=== PATIENT | female | born 1990 | race African-American/Black ===

== ENCOUNTER 2022-06-29 21:19 | Inpatient (IN) | payer OTHER, SELFPAY ==
--- OUTSIDE RECORDS SUMMARY | 2022-06-29 21:22 | XMS_ITS | Continuity of Care Document ---
:1990 Author Organization [facility] Address [address] [place] [address], [address] [place] [id number]- Care Team Providers Name Role Phone Fatoumata Stokes DO Primary Care Physician Encounter [facility] Date(s): 11/11/20 - 12/11/20 [facility] [address], [address] [place] [id number]- Allergies, Adverse Reactions, Alerts Substance Reaction Severity Status Flagyl Active paliperidone Active Invega Active cloZAPine Active Immunizations Given and Recorded Vaccine Date Status Refusal Reason tetanus/diphtheria/pertussis, acel(Tdap) 07/23/19 Given tetanus/diphtheria/pertussis, acel(Tdap) 07/30/18 Given tetanus/diphtheria/pertussis, acel(Tdap) 11/30/15 Given tetanus/diphtheria/pertussis, acel(Tdap) 10/20/14 Given tetanus/diphtheria/pertussis, acel(Tdap) 05/26/11 Given tetanus/diphtheria/pertussis, acel(Tdap) 07/31/10 Given influenza virus vaccine, inactivated 06/29/19 Given influenza virus vaccine, inactivated 07/11/13 Given influenza virus vaccine, inactivated 08/10/11 Given influenza virus vaccine, inactivated 07/31/10 Given pneumococcal 23-valent vaccine 07/11/13 Given Meningococcal Polysaccharide Vaccine 12/26/12 Given FluLaval (oldterm) 06/13/12 Given Human Papillomavirus Vaccine 09/16/10 Given Human Papillomavirus Vaccine 10/03/09 Given Human Papillomavirus Vaccine 07/15/09 Given influ virus vac, H1N1, live(oldterm) 10/03/09 Given Meningococcal Conjugate Vaccine 11/08/06 Given tetanus-diphtheria toxoids (Td) 01/14/04 Given Hepatitis B Vaccine (old term) 01/14/04 Given Hepatitis B Vaccine (old term) 08/27/03 Given Hepatitis B Vaccine (old term) 07/23/03 Given Miscellaneous Vaccine1 09/26/96 Given Measles/Mumps/Rubella Virus Vaccine 02/23/95 Given Measles/Mumps/Rubella Virus Vaccine 08/18/94 Given Measles/Mumps/Rubella Virus Vaccine 05/06/92 Given Diphth/Pertussis,Acel/Tetanus (oldterm) 02/01/95 Given Diphth/Pertussis,Acel/Tetanus (oldterm) 06/15/94 Given Diphth/Pertussis,Acel/Tetanus (oldterm) 03/17/94 Given Diphth/Pertussis,Acel/Tetanus (oldterm) 03/15/91 Given Diphth/Pertussis,Acel/Tetanus (oldterm) 01/06/91 Given Poliovirus Vaccine, Inactivated 06/15/94 Given Poliovirus Vaccine, Inactivated 03/17/94 Given Poliovirus Vaccine, Inactivated 01/06/91 Given 1Admin Note: Clinical Varicella at age 5 Medications acetaminophen 325 mg oral tablet 650 mg, 2, tablet, By Mouth, Every 8 hours, PRN, # 50 tablet, Refills 4, Tot. Refills 4, Maintenance, Pain , Mild, 11/22/19 13:30:00 EST, Route to Pharmacy Electronically, [facility]/pharmacy #[id number], 159, cm, 11/19/19 8:17:00 EST, Height, 89.7, kg, 11/14/19 9... Start Date: 11/22/19 Status: OrderedAquaphor Healing topical ointment See Instructions, APPLY TO NIPPLE DAILY NEEDED FOR DISCOMFORT, # 50 Gm, 0 Refills, Maintenance, [id number], 7, APPLY TO NIPPLE DAILY NEEDED FOR DISCOMFORT, 159, cm, 12/10/19 11:02:00 EDT, Height, 86.7, kg, 12/10/19 11:02:00 EDT, Dry Weight Start Date: 12/10/19 Status: OrderedBenefiber oral powder for reconstitution 5 mL, By Mouth, 2 times a day, PRN as needed for constipation, dissolve in 4 to 8 oz of beverage or soft food- hot or cold, # 155 Gm, 0 Refills, Maintenance, 12/04/20 14:32:00 EST, [facility] Powder[id number] Partial fill upon patient request if t... Start Date: 12/04/20 Status: Orderedbenztropine 1 mg oral tablet 1 mg, 1, tablet, By Mouth, 2 times a day, # 60 tablet, Refills 0, Tot. Refills 0, Maintenance, 01/01/20 16:15:00 EDT, [id number], 163, cm, 01/01/20 14:39:00 EDT, Height, 86.5, kg, 12/19/19 19:14:00 EDT, Dry We... Start Date: 01/01/20 Stop Date: 01/31/20 Status: OrderedDepo-Provera Contraceptive 150 mg/mL intramuscular suspension 1 mL = 150 mg, Intramuscular, Every 3 months, # 1 mL, 3 Refills, Maintenance, 08/26/20 9:54:00 EST, Suspension, [facility], 163, cm, 05/28/20 11:24:00 EDT, Height, 100, kg, 08/04/20 11:40:00 EST, Dry Weight Start Date: 08/26/20 Status: Ordereddocusate sodium 100 mg oral capsule 100 mg, 1, capsule, By Mouth, 2 times a day, # 60 capsule, Refills 11, Tot. Refills 11, Maintenance,01/08/20 11:07:00 EDT, [id number] 163, cm, 01/02/20 7:50:00 EDT, Height, 86.5, kg, 12/19/19 19:14:00 EDT, D... Start Date: 01/08/20 Stop Date: 01/02/21 Status: OrderedEstradiol Patch 0.1 mg/24 hours twice weekly transdermal film, extended release See Instructions, APPLY 1 PATCH TOPICALLY EVERY TUESDAY & TUESDAY, # 8 patch, 2 Refills, 12/03/20 8:15:00 EST, [facility]/pharmacy #[id number], 28, APPLY 1 PATCH TOPICALLY EVERY TUESDAY & TUESDAY, 164, cm, 10/14/20 10:13:00 EST, Height, 112, kg, 10/14/20 10:13:00... Start Date: 12/03/20 Status: Orderedferrous sulfate 325 mg oral enteric coated tablet 325 mg, 1, tablet, By Mouth, Daily, # 90 tablet, Refills 1, Tot. Refills 1, Maintenance, 10/31/20 16:01:00 EST, Route to Pharmacy Electronically, [facility]/pharmacy #[id number], 164, cm, 10/14/20 10:13:00 EST, Height, 112, kg, 10/14/20 10:13:00 EST, Dry Weight Start Date: 10/31/20 Status: OrderedFlonase 50 mcg/inh nasal spray 1 sprays, Nares, Both, 2 times a day, # 16 Gm, 5 Refills, Maintenance, 07/04/20 9:01:00 EDT, [place], [facility]/pharmacy #[id number], 1 sprays Nares, Both 2 times a day, 163, cm, 05/28/20 11:24:00 EDT, Height, 102.3, kg, 06/22/20 23:55:00 EDT, Dry Weight Start Date: 07/04/20 Status: Orderedlithium 300 mg oral tablet 1 tablet = 300 mg, By Mouth, Daily in AM, # 30 tablet, 0 Refills, Maintenance, 01/01/20 16:16:00 EDT, Tablet, [facility]/pharmacy #[id number], 163, cm, 01/01/20 14:39:00 EDT, Height, 86.5, kg, 12/19/19 19:14:00 EDT, Dry Weight Start Date: 01/01/20 Stop Date: 01/29/20 Status: Orderedlithium 600 mg oral capsule 1 capsule = 600 mg, By Mouth, Daily at bedtime, # 30 capsule, 0 Refills, Maintenance, 01/01/20 16:16:00 EDT, Capsule, [facility]/pharmacy #[id number], 163, cm, 01/01/20 14:39:00 EDT, Height, 86.5, kg, 12/19/19 19:14:00 EDT, Dry Weight Start Date: 01/01/20 Stop Date: 03/01/20 Status: OrderedMiraLax oral powder for reconstitution = 17 Gm, By Mouth, Daily, PRN Constipation, dissolve in water before taking, # 255 Gm, 11 Refills, Maintenance, 08/06/19 12:12:31 EST, REC Powder, 17 Gm By Mouth Daily,PRN:Constipation,Instr:dissolve in water before taking Start Date: 08/06/19 Status: OrderedMiraLax oral powder for reconstitution = 17 Gm, By Mouth, Daily, dissolve in water before taking, # 255 Gm, 0 Refills, Maintenance, 07/11/20 15:38:00 EDT, REC Powder, [facility]/pharmacy #[id number], 17 Gm By Mouth Daily,Instr:dissolve in water before taking, 163, cm, 05/28/20 11:24:00 EDT, Height, 102... Start Date: 07/11/20 Status: Orderedomeprazole 20 mg oral enteric coated capsule 1 capsule = 20 mg, By Mouth, Daily, # 30 capsule, 2 Refills, Maintenance, 12/08/20 10:55:00 EDT, EC Capsule, [facility]/pharmacy #[id number], 164, cm, 10/14/20 10:13:00 EST, Height, 112, kg, 10/14/20 10:13:00 EST, Dry Weight Start Date: 12/08/20 Status: Orderedperphenazine 16 mg oral tablet 16 mg, 1, tablet, By Mouth, 2 times a day, # 60 tablet, Refills 0, Tot. Refills 0, Maintenance, 01/01/20 16:18:00 EDT, Route to Pharmacy Electronically, [facility]/pharmacy #[id number], 163, cm, 01/01/20 14:39:00 EDT, Height, 86.5, kg, 12/19/19 19:14:00 EDT, Dry W... Start Date: 01/01/20 Status: Orderedperphenazine 8 mg oral tablet 8 mg, 1, tablet, By Mouth, 2 times a day, PRN, Indicated for severe agitation/psychosis and to be taken 8 hours apart, # 60 tablet, Refills 0, Tot. Refills 0, Maintenance, Psychosis, 01/02/20 4:30:00 EDT, Route to Pharmacy Electronically, [facility]/pharmacy... Start Date: 01/02/20 Status: Orderedsenna - oral tablet 1 tablet, By Mouth, Daily at bedtime, PRN for constipation, # 60 tablet, 1 Refills, Maintenance, 12/04/20 14:28:00 EST, Tablet, [facility]/pharmacy #[id number], Partial fill upon patient request if the prescriptionis for a schedule II opioid drug., 164, cm, 10/14... Start Date: 12/04/20 Status: Orderedsimethicone 125 mg oral capsule See Instructions, TAKE 1 CAPSULE BY MOUTH THREE TIMES A DAY AFTER MEALS AND AT BEDTIME NEEDED, # 48 capsule, 11 Refills, Maintenance, 10/21/20 9:08:00 EST, [facility]/pharmacy #[id number], 164, cm, 10/14/20 10:13:00 EST, Height, 112, kg, 10/14/20 10:13:00 EST,... Start Date: 10/21/20 Status: OrderedTums 500 mg oral tablet, chewable 1,000 mg, 2, tablet, Chew, Every 6 hours, PRN, # 120 tablet, Refills 11, Tot. Refills 11, Maintenance, for indigestion, 08/06/19 12:12:32 EST, Route to Pharmacy Electronically, [facility]/pharmacy #[id number] Start Date: 08/06/19 Stop Date: 07/01/20 Status: OrderedZyrTEC 10 mg oral tablet 1 tablet = 10 mg, By Mouth, Daily, # 30 tablet, 5 Refills, Maintenance, 07/22/20 15:24:00 EDT, Tablet, [facility]/pharmacy #[id number], 163, cm, 05/28/20 11:24:00 EDT, Height, 102.3, kg, 06/22/20 23:55:00 EDT, Dry Weight Start Date: 07/22/20 Status: Ordered Problem List Condition Effective Dates Status Health Status Informant Last pap smear 08/31/19 Active negative(Confirmed) Chronic constipation(Confirmed) Active Chronic post-traumatic stress Active disorder(Confirmed) Depression(Confirmed) Active alcohol syndrome(Confirmed) Active Foster Care (Status)(Confirmed) Active Chronic GERD(Confirmed) Active Hyperprolactinemia(Confirmed) Active Iron deficiency anemia(Confirmed) Active Obesity(Confirmed) Active Oligomenorrhea(Confirmed) Active Personality disorder(Confirmed) Active Poor historian(Confirmed) Active Psychosis(Confirmed) 2009 Active Schizoaffective Active schizophrenia(Confirmed) History of suicidal ideation w/ Active suicide attempt(Confirmed) Weight gain with seroquel in the Active past(Confirmed)1 1Really accelerated when seroquel dose increased Social History Social History Type Response Tobacco Use: 4 or less cigarettes(le ss than 1/4 pack)/day in last 30 days. Sex Female
--- OUTSIDE RECORDS SUMMARY | 2022-06-29 21:22 | XMS_ITS | Continuity of Care Document ---
:1990 Author Organization [facility] Address [address] [place] [address], [address] [place] [id number]- Care Team Providers Name Role Phone Fatoumata Stokes DO Primary Care Physician Encounter [facility] Date(s): 04/07/21 - 05/07/21 [facility] [address], [address] [place] [id number] Attending Physician: Jada Torres Admitting Physician: Jada Torres Referring Physician: AdmtrJada Allergies, Adverse Reactions, Alerts Substance Reaction Severity [...] 11/22/19 13:30:00 EST, Route to Pharmacy Electronically, [facility]/pharmacy #[id number], 159, cm, 11/19/19 8:17:00 EST, Height, 89.7, kg, 11/14/19 9... Start Date: 11/22/19 Status: OrderedBenefiber oral powder for reconstitution 5 mL, By Mouth, 2 times a day, PRN as needed for constipation, dissolve in 4 to 8 oz of beverage or soft food- hot or cold, # 155 Gm, 11 Refills, Maintenance, 03/05/21 15:58:00 EDT, REC Powder, [facility]/pharmacy #[id number], Partial fill upon patient request if... Start Date: 03/05/21 Status: Orderedbenztropine 1 mg oral tablet 1 mg, 1, tablet, By Mouth, 2 times a day, # 60 tablet, Refills 0, Tot. Refills 0, Maintenance, 01/01/20 16:15:00 EDT, Route to Pharmacy Electronically, [facility]/pharmacy #[id number], 163, cm, 01/01/20 14:39:00 EDT, Height, 86.5, kg, 12/19/19 19:14:00 EDT, Dry We... Start Date: 01/01/20 Stop Date: 01/31/20 Status: Orderedcetirizine 10 mg oral tablet 1 tablet, By Mouth, Daily, # 30 tablet, 5 Refills, Maintenance, 02/16/21 14:03:00 EDT, [id number], 164, cm, 10/14/20 10:13:00 EST, Height, 112, kg, 10/14/20 10:13:00 EST, Dry Weight Start Date: 02/16/21 Status: Ordereddocusate sodium 100 mg oral capsule 1 capsule, By Mouth, 2 times a day, # 60 capsule, 5 Refills, Maintenance, 01/12/21 20:05:00 EDT, [id number] 164, cm, 10/14/20 10:13:00 EST, Height, 112, kg, 10/14/20 10:13:00 EST, Dry Weight Start Date: 01/12/21 Status: OrderedEstradiol Patch 0.1 mg/24 hours twice weekly transdermal film, extended release See Instructions, APPLY 1 PATCH TOPICALLY EVERY TUESDAY & TUESDAY, # 8 patch, 12 Refills, 03/13/21 13:04:00 EDT, [facility]/pharmacy #[id number], 28, APPLY 1 PATCH TOPICALLY EVERY TUESDAY & TUESDAY, 164, cm, 03/13/21 9:51:00 EDT, Height, 112, kg, 10/14/20 10:13:00... Start Date: 03/13/21 Status: Orderedferrous sulfate 325 mg oral enteric coated tablet 325 mg, 1, tablet, By Mouth, Daily, # 90 tablet, Refills 1, Tot. Refills 1, Maintenance, 10/31/20 16:01:00 EST, Route to Pharmacy Electronically, [facility]/pharmacy #[id number], 164, cm, 10/14/20 10:13:00 EST, Height, 112, kg, 10/14/20 10:13:00 EST, Dry Weight Start Date: 10/31/20 Status: Orderedfluticasone 50 mcg/inh nasal spray See Instructions, USE 1 SPRAY IN EACH NOSTRIL TWICE A DAY, # 16 mL, 5 Refills, Maintenance, [id number], 30, USE 1 SPRAY IN EACH NOSTRIL TWICE A DAY, 164, cm, 10/14/20 10:13:00 EST, Height, 112, kg, 10/14/20 10:13:00 EST, Dry Weight Start Date: 03/06/21 Status: Orderedlithium 300 mg oral tablet 1 tablet = 300 mg, By Mouth, Daily in AM, # 30 tablet, 0 Refills, Maintenance, 01/01/20 16:16:00 EDT, Tablet, [facility]/pharmacy #[id number], 163, cm, 01/01/20 14:39:00 EDT, Height, 86.5, kg, 12/19/19 19:14:00 EDT, Dry Weight Start Date: 01/01/20 Stop Date: 01/29/20 Status: Orderedlithium 600 mg oral capsule 1 capsule = 600 mg, By Mouth, Daily at bedtime, # 30 capsule, 0 Refills, Maintenance, 01/01/20 16:16:00 EDT, Capsule, [facility]/pharmacy #[id number], 163, cm, 01/01/20 14:39:00 EDT, Height, 86.5, kg, 12/19/19 19:14:00 EDT, Dry Weight Start Date: 01/01/20 Stop Date: 03/01/20 Status: OrderedmedroxyPROGESTERone 150 mg/mL intramuscular suspension 1 mL, Intramuscular, Every 3 months, # 1 mL, 3 Refills, Soft Stop, 03/13/21 13:05:00 EDT, [facility]/pharmacy #[id number], 164, cm, 03/13/21 9:51:00 EDT, Height, 112, kg, 10/14/20 10:13:00 EST, Dry Weight Start Date: 03/13/21 Status: OrderedMiraLax oral powder for reconstitution = 17 Gm, By Mouth, Daily, dissolve in water before taking, # 255 Gm, 0 Refills, Maintenance, 07/11/20 15:38:00 EDT, REC Powder, [facility]/pharmacy #[id number], 17 Gm By Mouth Daily,Instr:dissolve in water before taking, 163, cm, 05/28/20 11:24:00 EDT, Height, 102... Start Date: 07/11/20 Status: Orderedomeprazole 20 mg oral enteric coated capsule 1 capsule, By Mouth, Daily, # 90 capsule, 0 Refills, Maintenance, 04/17/21 13:04:00 EDT, [facility] [id number], 164, cm, 04/07/21 15:35:00 EDT, Height, 112, kg, 10/14/20 10:13:00 EST, Dry Weight Start Date: 04/17/21 Status: Orderedperphenazine 16 mg oral tablet 16 mg, 1, tablet, By Mouth, 2 times a day, # 60 tablet, Refills 0, Tot. Refills 0, Maintenance, 01/01/20 16:18:00 EDT, Route to Pharmacy Electronically, [facility]/pharmacy #[id number], 163, cm, 01/01/20 14:39:00 EDT, Height, 86.5, kg, 12/19/19 19:14:00 EDT, Dry W... Start Date: 01/01/20 Status: Orderedperphenazine 8 mg oral tablet 8 mg, 1, tablet, By Mouth, 2 times a day, PRN, Indicated for severe agitation/psychosis and to be taken 8 hours apart, # 60 tablet, Refills 0, Tot. Refills 0, Maintenance, Psychosis, 01/02/20 4:30:00 EDT, Route to Pharmacy Electronically, [facility]/pharmacy... Start Date: 01/02/20 Status: OrderedSenna 8.6 mg oral tablet 1, tablet, By Mouth, Daily at bedtime, PRN, # 60 tablet, Refills 1, Tot. Refills 0, Acute, NEEDEDFOR CONSTIPATION, 02/19/21 17:23:00 EDT, Route to Pharmacy Electronically, [id number], 164, cm,10/14/20 10:13:00 EST, Height, 112, kg, 10/14/20... Start Date: 02/19/21 Status: Orderedsimethicone 125 mg oral capsule See Instructions, TAKE 1 CAPSULE BY MOUTH THREE TIMES A DAY AFTER MEALS AND AT BEDTIME NEEDED, # 48 capsule, 11 Refills, Maintenance, 10/21/20 9:08:00 EST, [id number], 164, cm, 10/14/20 10:13:00 EST, Height, 112, kg, 10/14/20 10:13:00 EST,... Start Date: 10/21/20 Status: Orderedsimethicone 125 mg oral capsule 1 capsule = 125 mg, By Mouth, Daily at bedtime, PRN as needed, Maintenance, 03/04/21 16:23:00 EDT, Capsule, Partial fill upon patient request if the prescription is for a schedule II opioid drug. Start Date: 03/04/21 Status: Ordered Problem List Condition Effective Dates [...]
--- OUTSIDE RECORDS SUMMARY | 2022-06-29 21:22 | XMS_ITS | Continuity of Care Document ---
:1990 Author Organization [facility] Address [address] [place] [address]- Care Team Providers Name Role Phone Fatoumata Stokes DO Primary Care Physician [facility]counter [facility] Date(s): 01/05/21 - 02/04/21 [facility] [address] [place], [place] [id number] Allergies, Adverse Reactions, Alerts Substance Reaction Severity [...] 11/22/19 13:30:00 EST, Route to Pharmacy Electronically, [facility]/pharmacy #[id number], 159, cm, 11/19/19 8:17:00 EST, Height, 89.7, kg, 11/14/19 9... Start Date: 11/22/19 Status: OrderedAquaphor Healing topical ointment See Instructions, APPLY TO NIPPLE DAILY NEEDED FOR DISCOMFORT, # 50 Gm, 0 Refills, Maintenance, [id number], 7, APPLY TO NIPPLE DAILY NEEDED FOR DISCOMFORT, 159, cm, 12/10/19 11:02:00 EDT, Height, 86.7, kg, 12/10/19 11:02:00 EDT, Dry Weight Start Date: 12/10/19 Status: OrderedBenefiber oral powder for reconstitution 5 mL, By Mouth, 2 times a day, PRN as needed for constipation, dissolve in 4 to 8 oz of beverage or soft food- hot or cold, # 155 Gm, 0 Refills, Maintenance, 01/05/21 11:50:00 EDT, REC Powder, [facility]/pharmacy #[id number], Partial fill upon patient request if t... Start Date: 01/05/21 Status: Orderedbenztropine 1 mg oral tablet 1 mg, 1, tablet, By Mouth, 2 times a day, # 60 tablet, Refills 0, Tot. Refills 0, Maintenance, 01/01/20 16:15:00 EDT, Route to Pharmacy Electronically, [facility]/pharmacy #[id number], 163, cm, 01/01/20 14:39:00 EDT, Height, 86.5, kg, 12/19/19 19:14:00 EDT, Dry We... Start Date: 01/01/20 Stop Date: 01/31/20 Status: OrderedDepo-Provera Contraceptive 150 mg/mL intramuscular suspension 1 mL = 150 mg, Intramuscular, Every 3 months, # 1 mL, 3 Refills, Maintenance, 08/26/20 9:54:00 EST, Suspension, [facility], 163, cm, 05/28/20 11:24:00 EDT, Height, 100, kg, 08/04/20 11:40:00 EST, Dry Weight Start Date: 08/26/20 Status: Ordereddocusate sodium 100 mg oral capsule 1 capsule, By Mouth, 2 times a day, # 60 capsule, 5 Refills, Maintenance, 01/12/21 20:05:00 [facility]T, [id number], [facility], cm, 10/14/20 10:13:00 EST, Height, 112, kg, 10/14/20 10:13:00 EST, Dry Weight Start Date: 01/12/21 Status: OrderedEstradiol Patch 0.1 mg/24 hours twice weekly transdermal film, extended release See Instructions, APPLY 1 PATCH TOPICALLY EVERY TUESDAY & TUESDAY, # 8 patch, 2 Refills, 12/03/20 8:15:00 EST, [facility]/pharmacy #[id number], 28, APPLY 1 PATCH TOPICALLY EVERY TUESDAY & TUESDAY, 164, cm, 10/14/20 10:13:00 EST, Height, 112, kg, 10/14/20 10:13:00... Start Date: 12/03/20 Status: Orderedferrous sulfate 325 mg oral enteric coated tablet 325 mg, 1, tablet, By Mouth, Daily, # 90 tablet, Refills 1, Tot. Refills 1, Maintenance, 10/31/20 16:01:00 EST, Route to Pharmacy Electronically, [facility]/pharmacy #[id number], 164, cm, 10/14/20 10:13:00 EST, Height, 112, kg, 10/14/20 10:13:00 EST, Dry Weight Start Date: 10/31/20 Status: OrderedFlonase 50 mcg/inh nasal spray 1 sprays, Nares, Both, 2 times a day, # 16 Gm, 5 Refills, Maintenance, 07/04/20 9:01:00 EDT, [place], [facility]/pharmacy #[id number], 1 sprays Nares, Both 2 times a day, 163, cm, 05/28/20 11:24:00 EDT, Height, 102.3, kg, 06/22/20 23:55:00 EDT, Dry Weight Start Date: 07/04/20 Status: Orderedlithium 300 mg oral tablet 1 tablet = 300 mg, By Mouth, Daily in AM, # 30 tablet, 0 Refills, Maintenance, 01/01/20 16:16:00 EDT, Tablet, [facility]/pharmacy #[id number], 163, cm, 01/01/20 14:39:00 EDT, Height, 86.5, kg, 12/19/19 19:14:00 EDT, Dry Weight Start Date: 01/01/20 Stop Date: 01/29/20 Status: Orderedlithium 600 mg oral capsule 1 capsule = 600 mg, By Mouth, Daily at bedtime, # 30 capsule, 0 Refills, Maintenance, 01/01/20 16:16:00 EDT, Capsule, [facility]/pharmacy #[id number], 163, cm, 01/01/20 [...] Refills, Maintenance, 07/11/20 15:38:00 EDT, REC Powder, [facility]/pharmacy #[id number], 17 Gm By Mouth Daily,Instr:dissolve in water before taking, 163, cm, 05/28/20 11:24:00 EDT, Height, 102... Start Date: 07/11/20 Status: Orderedomeprazole 20 mg oral enteric coated capsule 1 capsule = 20 mg, By Mouth, Daily, # 30 capsule, 2 Refills, Maintenance, 12/08/20 10:55:00 EDT, EC Capsule, [facility]/pharmacy #[id number], 164, cm, 10/14/20 10:13:00 EST, Height, 112, kg, 10/14/20 10:13:00 EST, Dry Weight Start Date: 12/08/20 Status: Orderedperphenazine 16 mg oral tablet 16 mg, 1, tablet, By Mouth, 2 times a day, # 60 tablet, Refills 0, Tot. Refills 0, Maintenance, 01/01/20 16:18:00 EDT, Route to Pharmacy Electronically, [facility]/pharmacy #[id number], 163, cm, 01/01/20 [...] 01/02/20 4:30:00 EDT, Route to Pharmacy Electronically, [facility]/pharmacy... Start Date: 01/02/20 Status: Orderedsenna - oral tablet 1 tablet, By Mouth, Daily at bedtime, PRN for constipation, # 60 tablet, 1 Refills, Maintenance, 12/04/20 14:28:00 EST, Tablet, [facility]/pharmacy #[id number], Partial fill upon patient request if the prescriptionis for a schedule II opioid drug., 164, cm, 01/19... Start Date: 12/04/20 Status: Orderedsimethicone 125 mg oral capsule See Instructions, TAKE 1 CAPSULE BY MOUTH THREE TIMES A DAY AFTER MEALS AND AT BEDTIME NEEDED, # 48 capsule, 11 Refills, Maintenance, 10/21/20 9:08:00 EST, [facility]/pharmacy #[id number], 164, cm, 10/14/20 10:13:00 EST, Height, 112, kg, 10/14/20 10:13:00 EST,... Start Date: 10/21/20 Status: OrderedTums 500 mg oral tablet, chewable 1,000 mg, 2, tablet, Chew, Every 6 hours, PRN, # 120 tablet, Refills 11, Tot. Refills 11, Maintenance, for indigestion, 08/06/19 12:12:32 EST, Route to Pharmacy Electronically, [facility]/pharmacy #[id number] Start Date: 08/06/19 Stop Date: 07/01/20 Status: OrderedZyrTEC 10 mg oral tablet 1 tablet = 10 mg, By Mouth, Daily, # 30 tablet, 5 Refills, Maintenance, 07/22/20 15:24:00 EDT, Tablet, [facility]/pharmacy #[id number], 163, cm, 05/28/20 11:24:00 EDT, Height, [...]
--- OUTSIDE RECORDS SUMMARY | 2022-06-29 21:22 | XMS_ITS | Continuity of Care Document ---
:1990 Author Organization [facility] Address [address] [place] [id number]- Care Team Providers Name Role Phone Fatoumata Stokes DO Primary Care Physician [facility]counter [facility] Date(s): 11/30/20 - 11/30/[address] [address]- Encounter Diagnosis Abdominal pain (Final) - 11/30/20 Discharge Disposition: A-D/C Home Attending Physician: Venessa Sosa MD Admitting Physician: Venessa Sosa MD Referring Physician: Not on Staff, Referring MD Allergies, Adverse Reactions, Alerts Substance Reaction Severity [...] 11/22/19 13:30:00 EST, Route to Pharmacy Electronically, [facility]/pharmacy #[id number], 159, cm, 11/19/19 8:17:00 EST, Height, 89.7, kg, 11/14/19 9... Start Date: 11/22/19 Status: OrderedAquaphor Healing topical ointment See Instructions, APPLY TO NIPPLE DAILY NEEDED FOR DISCOMFORT, # 50 Gm, 0 Refills, Maintenance, [facility] STORE [id number], 7, APPLY TO NIPPLE DAILY NEEDED FOR DISCOMFORT, 159, cm, 12/10/19 11:02:00 EDT, Height, 86.7, kg, 12/10/19 11:02:00 EDT, Dry Weight Start Date: 12/10/19 Status: Orderedbenztropine 1 mg oral tablet 1 mg, 1, tablet, By Mouth, 2 times a day, # 60 tablet, Refills 0, Tot. Refills 0, Maintenance, 01/01/20 16:15:00 EDT, Route to Pharmacy Electronically, [facility]/pharmacy #[id number], 163, cm, 01/01/20 14:39:00 EDT, Height, 86.5, kg, 12/19/19 19:14:00 EDT, Dry We... Start Date: 01/01/20 Stop Date: 01/31/20 Status: OrderedDepo-Provera Contraceptive 150 mg/mL intramuscular suspension 1 mL = 150 mg, Intramuscular, Every 3 months, # 1 mL, 3 Refills, Maintenance, 08/26/20 9:54:00 EST, Suspension, [facility], 163, cm, 05/28/20 11:24:00 EDT, Height, 100, kg, 08/04/20 11:40:00 EST, Dry Weight Start Date: 08/26/20 Status: Ordereddocusate sodium 100 mg oral capsule 100 mg, 1, capsule, By Mouth, 2 times a day, # 60 capsule, Refills 11, Tot. Refills 11, Maintenance,01/08/20 11:07:00 EDT, [id number], cm, 01/02/20 7:50:00 EDT, Height, 86.5, kg, 12/19/19 19:14:00 EDT, D... Start Date: 01/08/20 Stop Date: 01/02/21 Status: Orderedestradiol 0.1 mg/24 hours twice weekly transdermal film, extended release 1 patch, Topically, Every Tuesday and , # 8 patch, 6 Refills, Maintenance, 05/28/20 11:01:00 EDT, [facility]/pharmacy #[id number], 163, cm, 04/03/20 14:59:00 EDT, Height, 88.9, kg, 04/03/20 14:59:00 EDT, DryWeight Start Date: 05/28/20 Status: OrderedEucerin Plus topical lotion 1 application, Topically, 2 times a day, PRN for dry skin, May apply to affected area every 6 hours as needed, up to 2 times/day, # 180 mL, 11 Refills, Maintenance, 08/06/19 12:15:04 EST, Lotion, [facility]/pharmacy #[id number] Start Date: 08/06/19 Status: Orderedferrous sulfate 325 mg oral enteric coated tablet 325 mg, 1, tablet, By Mouth, Daily, # 90 tablet, Refills 1, Tot. Refills 1, Maintenance, 10/31/20 16:01:00 EST, Route to Pharmacy Electronically, [facility]/pharmacy #[id number], 164, cm, 10/14/20 10:13:00 EST, Height, 112, kg, 10/14/20 10:13:00 EST, Dry Weight Start Date: 10/31/20 Status: OrderedFlonase 50 mcg/inh nasal spray 1 sprays, Nares, Both, 2 times a day, # 16 Gm, 5 Refills, Maintenance, 07/04/20 9:01:00 EDT, [place], [facility]/pharmacy #[id number], 1 sprays Nares, Both 2 times a day, 163, cm, 05/28/20 11:24:00 EDT, Height, 102.3, kg, 06/22/20 23:55:00 EDT, Dry Weight Start Date: 07/04/20 Status: Orderedlithium 300 mg oral tablet 1 tablet = 300 mg, By Mouth, Daily in AM, # 30 tablet, 0 Refills, Maintenance, 01/01/20 16:16:00 EDT, Tablet, [facility]/pharmacy #[id number], 163, cm, 01/01/20 14:39:00 EDT, Height, 86.5, kg, 12/19/19 19:14:00 EDT, Dry Weight Start Date: 01/01/20 Stop Date: 01/29/20 Status: Orderedlithium 600 mg oral capsule 1 capsule = 600 mg, By Mouth, Daily at bedtime, # 30 capsule, 0 Refills, Maintenance, 01/01/20 16:16:00 EDT, Capsule, [facility]/pharmacy #[id number], 163, cm, 01/01/20 14:39:00 EDT, [...] Refills, Maintenance, 07/11/20 15:38:00 EDT, REC Powder, [facility]/pharmacy #[id number], 17 Gm By Mouth Daily,Instr:dissolve in water before taking, 163, cm, 05/28/20 11:24:00 EDT, Height, 102... Start Date: 07/11/20 Status: Orderedomeprazole 20 mg oral enteric coated capsule 1 capsule = 20 mg, By Mouth, Daily, # 30 capsule, 5 Refills, Maintenance, 07/07/20 11:44:00 EDT, EC Capsule, [facility]/pharmacy #[id number], 163, cm, 05/28/20 11:24:00 EDT, Height, 102.3, kg, 06/22/20 23:55:00 EDT, Dry Weight Start Date: 07/07/20 Status: Orderedperphenazine 16 mg oral tablet 16 mg, 1, tablet, By Mouth, 2 times a day, # 60 tablet, Refills 0, Tot. Refills 0, Maintenance, 01/01/20 16:18:00 EDT, Route to Pharmacy Electronically, [facility]/pharmacy #[id number], 163, cm, 01/01/20 14:39:00 EDT, Height, 86.5, kg, 12/19/19 19:14:00 EDT, Dry W... Start Date: 01/01/20 Status: Orderedperphenazine 8 mg oral tablet 8 mg, 1, tablet, By Mouth, 2 times a day, PRN, Indicated for severe agitation/psychosis and to be taken 8 hours apart, # 60 tablet, Refills 0, Tot. Refills 0, Maintenance, Psychosis, 01/02/20 4:30:00 EDT, Route to Pharmacy Electronically, [facility]/pharmacy... Start Date: 01/02/20 Status: Orderedsimethicone 125 mg oral capsule See Instructions, TAKE 1 CAPSULE BY MOUTH THREE TIMES A DAY AFTER MEALS AND AT BEDTIME NEEDED, # 48 capsule, 11 Refills, Maintenance, 10/21/20 9:08:00 EST, [facility]/pharmacy #[id number], 164, cm, 10/14/20 10:13:00 EST, Height, 112, kg, 10/14/20 10:13:00 EST,... Start Date: 10/21/20 Status: OrderedTums 500 mg oral tablet, chewable 1,000 mg, 2, tablet, Chew, Every 6 hours, PRN, # 120 tablet, Refills 11, Tot. Refills 11, Maintenance, for indigestion, 08/06/19 12:12:32 EST, Route to Pharmacy Electronically, [facility]/pharmacy #[id number] Start Date: 08/06/19 Stop Date: 07/01/20 Status: OrderedZyrTEC 10 mg oral tablet 1 tablet = 10 mg, By Mouth, Daily, # 30 tablet, 5 Refills, Maintenance, 07/22/20 15:24:00 EDT, Tablet, [facility]/pharmacy #[id number], 163, cm, 05/28/20 11:24:00 EDT, [...] past(Confirmed)1 1Really accelerated when seroquel dose increased Vital Signs Most recent to oldest [Reference 1 2 3 Range]: Oxygen Saturation [94-100 %] 99 % 100 % 100 % (11/30/20 1:52 PM) (11/30/20 11:21 AM) (11/30/20 9:47 AM) Pulse Rate [55-90 bpm] 91 bpm 68 bpm 83 bpm *H* (11/30/20 11:21 AM) (11/30/20 9:47 A M) (11/30/20 1:52 PM) Blood Pressure [90-138/55-84 mm 121/71 mm Hg 125/71 mm Hg 123/71 mm Hg Hg] (11/30/20 1:52 PM) (11/30/20 11:21 AM) (11/30/20 9:47 AM) Respiratory Rate [16-30 br/min] 17 br/min 17 br/min 16 br/min (11/30/20 1:52 PM) (11/30/20 11:21 AM) (11/30/20 9:47 AM) Temperature [96.8-100.4 DegF] 98.8 DegF 98.4 DegF 98 .4 DegF (11/30/20 1:52 PM) (11/30/20 11:21 AM) (11/30/20 9:47 AM) Mode of Delivery (Oxygen) Room air Room air Room a ir (11/30/20 1:52 PM) (11/30/20 11:21 AM) (11/30/20 9:47 AM) Blood pressure sites Arm, left Arm, left Arm, left (11/30/20 1:52 PM) (11/30/20 11:21 AM) (11/30/20 9:47 AM) Temperature Route Oral Oral Oral (11/30/20 1:52 PM) (11/30/20 11:21 AM) (11/30/20 9:47 AM) Social History Social History Type Response Tobacco Use: 4 or less cigarettes(le ss than 1/4 pack)/day in last 30 days. Sex Female
--- OUTSIDE RECORDS SUMMARY | 2022-06-29 21:22 | XMS_ITS | Continuity of Care Document ---
:1990 Author Organization [facility] Address [address] [place] [address]- Care Team Providers Name Role Phone Fatoumata Stokes DO Primary Care Physician [facility] Date[facility]s): 05/28/21 - 06/27/21 [facility] [address] [place], [place] [address] Attending Physician: Jada Torres Admitting Physician: AdmtrJada Referring Physician: AdmtrJada Allergies, Adverse Reactions, Alerts Substance Reaction Severity Status Flagyl Active paliperidone Active cloZAPine Active Invega Active Immunizations Given and Recorded Vaccine Date Status Refusal Reason SARS-CoV-2 (COVID-19) mRNA-1273 vaccine 12/10/20 Recorded SARS-CoV-2 (COVID-19) mRNA-1273 vaccine 11/12/20 Recorded tetanus/diphtheria/pertussis, acel(Tdap) 07/23/19 Given tetanus/diphtheria/pertussis, acel(Tdap) 07/30/18 Given tetanus/diphtheria/pertussis, acel(Tdap) 11/30/15 Given tetanus/diphtheria/pertussis, acel(Tdap) 10/20/14 Given tetanus/diphtheria/pertussis, acel(Tdap) 05/26/11 Given tetanus/diphtheria/pertussis, acel(Tdap) 07/31/10 Given influenza virus vaccine, inactivated 06/29/19 Given influenza virus vaccine, inactivated 07/11/13 Given influenza virus vaccine, inactivated 08/10/11 Given influenza virus vaccine, inactivated 07/31/10 Given pneumococcal 23-valent vaccine 07/11/13 Given Meningococcal Polysaccharide Vaccine 12/26/12 Given Meningococcal Conjugate Vaccine 12/26/12 Recorded Meningococcal Conjugate Vaccine 2/13/07 Given FluLaval (oldterm) 06/13/12 Given Human Papillomavirus Vaccine 09/16/10 Given Human Papillomavirus Vaccine 10/03/09 Given Human Papillomavirus Vaccine 07/15/09 Given influ virus vac, H1N1, live(oldterm) 10/03/09 Given tetanus-diphtheria toxoids (Td) 01/14/04 Given Hepatitis [...] Tot. Refills 4, Maintenance, Pain , Mild, 05/28/21 7:42:00 EDT, Route to Pharmacy Electronically, [facility]/pharmacy #[id number], 164, cm, 04/07/21 15:35:00 EDT, Height, 112, kg, 10/14/20 10... Start Date: 05/28/21 Status: OrderedBenefiber oral powder for reconstitution 5 mL, By Mouth, 2 times a day, PRN as needed for constipation, dissolve in 4 to 8 oz of beverage or soft food- hot or cold, # 155 Gm, 11 Refills, Maintenance, 03/05/21 15:58:00 EDT, REC Powder, [facility]/pharmacy #[id number], Partial fill upon patient request if... Start Date: 03/05/21 Status: Orderedbenztropine 1 mg oral tablet 1 mg, 1, tablet, By Mouth, 2 times a day, # 60 tablet, Refills 0, Tot. Refills 0, Maintenance, 01/01/20 16:15:00 EDT, Route to Pharmacy Electronically, [facility]/pharmacy #[id number], 163, cm, 01/01/20 14:39:00 EDT, Height, 86.5, kg, 12/19/19 19:14:00 EDT, Dry We... Start Date: 01/01/20 Stop Date: 01/31/20 Status: Orderedcetirizine 10 mg oral tablet 1 tablet, By Mouth, Daily, # 30 tablet, 5 Refills, Maintenance, 02/16/21 14:03:00 EDT, [facility] STORE [id number], 164, cm, 10/14/20 10:13:00 EST, Height, 112, kg, 10/14/20 10:13:00 EST, Dry Weight Start Date: 02/16/21 Status: Ordereddocusate sodium 100 mg oral capsule 1 capsule, By Mouth, 2 times a day, # 60 capsule, 5 Refills, Maintenance, 01/12/21 20:05:00 EDT, [id number], 164, cm, 10/14/20 10:13:00 EST, Height, 112, kg, 10/14/20 10:13:00 EST, Dry Weight Start Date: 01/12/21 Status: OrderedEstradiol Patch 0.1 mg/24 hours twice weekly transdermal film, extended release See Instructions, APPLY 1 PATCH TOPICALLY EVERY TUESDAY & TUESDAY, # 8 patch, 12 Refills, 03/13/21 13:04:00 EDT, [facility]/pharmacy #[id number], 28, APPLY 1 PATCH TOPICALLY EVERY TUESDAY & TUESDAY, 164, cm, 03/13/21 9:51:00 EDT, Height, 112, kg, 10/14/20 10:13:00... Start Date: 03/13/21 Status: Orderedferrous sulfate 325 mg oral enteric coated tablet 325 mg, 1, tablet, By Mouth, Daily, # 90 tablet, Refills 1, Tot. Refills 1, Maintenance, 10/31/20 16:01:00 EST, Route to Pharmacy Electronically, [facility]/pharmacy #[id number], 164, cm, 10/14/20 10:13:00 EST, Height, 112, kg, 10/14/20 10:13:00 EST, Dry Weight Start Date: 10/31/20 Status: Orderedfluticasone 50 mcg/inh nasal spray See Instructions, USE 1 SPRAY IN EACH NOSTRIL TWICE A DAY, # 16 mL, 5 Refills, Maintenance, [facility] STORE [id number], 30, USE 1 SPRAY IN EACH NOSTRIL TWICE A DAY, 164, cm, 10/14/20 10:13:00 EST, Height, 112, kg, 10/14/20 10:13:00 EST, Dry Weight Start Date: 03/06/21 Status: Orderedlithium 300 mg oral tablet 1 tablet = 300 mg, By Mouth, Daily in AM, # 30 tablet, 0 Refills, Maintenance, 01/01/20 16:16:00 EDT, Tablet, [facility]/pharmacy #[id number], 163, cm, 01/01/20 14:39:00 EDT, Height, 86.5, kg, 12/19/19 19:14:00 EDT, Dry Weight Start Date: 01/01/20 Stop Date: 01/29/20 Status: Orderedlithium 600 mg oral capsule 1 capsule = 600 mg, By Mouth, Daily at bedtime, # 30 capsule, 0 Refills, Maintenance, 01/01/20 16:16:00 EDT, Capsule, [facility]/pharmacy #[id number], 163, cm, 01/01/20 14:39:00 EDT, Height, 86.5, kg, 12/19/19 19:14:00 EDT, Dry Weight Start Date: 01/01/20 Stop Date: 03/01/20 Status: OrderedmedroxyPROGESTERone 150 mg/mL intramuscular suspension 1 mL, Intramuscular, Every 3 months, # 1 mL, 3 Refills, Soft Stop, 03/13/21 13:05:00 EDT, [facility]/pharmacy #[id number], 164, cm, 03/13/21 9:51:00 EDT, Height, 112, kg, 10/14/20 10:13:00 EST, Dry Weight Start Date: 03/13/21 Status: OrderedMiraLax oral powder for reconstitution = 17 Gm, By Mouth, Daily, dissolve in water before taking, # 255 Gm, 0 Refills, Maintenance, 07/11/20 15:38:00 EDT, REC Powder, [facility]/pharmacy #[id number], 17 Gm By Mouth Daily,Instr:dissolve in water before taking, 163, cm, 05/28/20 11:24:00 EDT, Height, 102... Start Date: 07/11/20 Status: Orderedomeprazole 20 mg oral enteric coated capsule 1 capsule, By Mouth, Daily, # 90 capsule, 0 Refills, Maintenance, 04/17/21 13:04:00 EDT, [id number], 164, cm, 04/07/21 15:35:00 EDT, Height, 112, kg, 10/14/20 10:13:00 EST, Dry Weight Start Date: 04/17/21 Status: Orderedperphenazine 16 mg oral tablet 16 mg, 1, tablet, By Mouth, 2 times a day, # 60 tablet, Refills 0, Tot. Refills 0, Maintenance, 01/01/20 16:18:00 EDT, Route to Pharmacy Electronically, [facility]/pharmacy #[id number], 163, cm, 01/01/20 14:39:00 EDT, Height, 86.5, kg, 12/19/19 19:14:00 EDT, Dry W... Start Date: 01/01/20 Status: Orderedperphenazine 8 mg oral tablet 8 mg, 1, tablet, By Mouth, 2 times a day, PRN, Indicated for severe agitation/psychosis and to be taken 8 hours apart, # 60 tablet, Refills 0, Tot. Refills 0, Maintenance, Psychosis, 01/02/20 4:30:00 EDT, Route to Pharmacy Electronically, [facility]/pharmacy... Start Date: 01/02/20 Status: OrderedSenna 8.6 mg oral tablet 1, tablet, By Mouth, Daily at bedtime, PRN, # 60 tablet, Refills 1, Tot. Refills 0, Acute, NEEDEDFOR CONSTIPATION, 02/19/21 17:23:00 EDT, Route to Pharmacy Electronically, [id number], 164, cm,10/14/20 10:13:00 EST, Height, 112, kg, 10/14/20... Start Date: 02/19/21 Status: Orderedsimethicone 125 mg oral capsule See Instructions, TAKE 1 CAPSULE BY MOUTH THREE TIMES A DAY AFTER MEALS AND AT BEDTIME NEEDED, # 48 capsule, 11 Refills, [id number], 164, cm, 04/07/21 15:35:00 EDT, Height, 112, kg, 10/14/20 10:13:00 EST, Dry Weight Start Date: 05/19/21 Status: Ordered Problem List Condition Effective Dates [...]
--- OUTSIDE RECORDS SUMMARY | 2022-06-29 21:22 | XMS_ITS | Continuity of Care Document ---
:1990 Author Organization [facility] Address [address] [place] [address]- Care Team Providers Name Role Phone Fatoumata Stokes DO Primary Care Physician [facility] Date[facility]s): 04/04/20 - 05/04/20 [facility] [address] [place] [address]- [facility] Allergies, Adverse Reactions, Alerts Substance Reaction Severity [...] 11/22/19 13:30:00 EST, Route to Pharmacy Electronically, [facility]/pharmacy #[id number], 159, cm, 11/19/19 8:17:00 EST, Height, 89.7, kg, 11/14/19 9... Start Date: 11/22/19 Status: OrderedAquaphor Healing topical ointment See Instructions, APPLY TO NIPPLE DAILY NEEDED FOR DISCOMFORT, # 50 Gm, 0 Refills, Maintenance, [facility] STORE [id number], 7, APPLY TO NIPPLE DAILY NEEDED FOR DISCOMFORT, 159, cm, 12/10/19 11:02:00 EDT, Height, 86.7, kg, 12/10/19 11:02:00 EDT, Dry Weight Start Date: 12/10/19 Status: Orderedbenztropine 1 mg oral tablet 1 mg, 1, tablet, By Mouth, 2 times a day, # 60 tablet, Refills 0, Tot. Refills 0, Maintenance, 01/01/20 16:15:00 EDT, Route to Pharmacy Electronically, [facility]/pharmacy #[id number], 163, cm, 01/01/20 14:39:00 EDT, Height, 86.5, kg, 12/19/19 19:14:00 EDT, Dry We... Start Date: 01/01/20 Stop Date: 01/31/20 Status: OrderedDepo-Provera Contraceptive 150 mg/mL intramuscular suspension 1 mL = 150 mg, Intramuscular, Every 3 months, # 1 mL, 3 Refills, Maintenance, 12/10/19 11:23:00 EDT,Suspension, [facility], 159, cm, 12/10/19 11:02:00 EDT, Height, 86.7, kg, 12/10/19 11:02:00 EDT, Dry Weight Start Date: 12/10/19 Status: Ordereddocusate sodium 100 mg oral capsule 100 mg, 1, capsule, By Mouth, 2 times a day, # 60 capsule, Refills 11, Tot. Refills 11, Maintenance,01/08/20 11:07:00 EDT, Route to Pharmacy Electronically, [facility]/pharmacy #[id number], 163, cm, 01/02/20 7:50:00 EDT, Height, 86.5, kg, 12/19/19 19:14:00 EDT, D... Start Date: 01/08/20 Stop Date: 01/02/21 Status: Orderedestradiol 0.1 mg/24 hours twice weekly transdermal film, extended release 1 patch, Topically, Every Tuesday and , # 8 patch, 6 Refills, Maintenance, 12/10/19 11:19:00 EDT, [facility]/pharmacy #[id number], 159, cm, 12/10/19 11:02:00 EDT, Height, 86.7, kg, 12/10/19 11:02:00 EDT, DryWeight Start Date: 12/10/19 Status: OrderedEucerin Plus topical lotion 1 application, Topically, 2 times a day, PRN for dry skin, May apply to affected area every 6 hours as needed, up to 2 times/day, # 180 mL, 11 Refills, Maintenance, 08/06/19 12:15:04 EST, Lotion, [facility]/pharmacy #[id number] Start Date: 08/06/19 Status: Orderedferrous sulfate 325 mg oral enteric coated tablet 325 mg, 1, tablet, By Mouth, Daily, # 30 tablet, Refills 11, Tot. Refills 11, Maintenance, 01/08/20 11:07:00 EDT, Route to Pharmacy Electronically, [facility]/pharmacy #[id number], 163, cm, 01/02/20 7:50:00 EDT, Height, 86.5, kg, 12/19/19 19:14:00 EDT, Dry Weight Start Date: 01/08/20 Status: OrderedFlonase 50 mcg/inh nasal spray 1 sprays, Nares, Both, 2 times a day, # 16 Gm, 3 Refills, Maintenance, 04/03/20 15:37:00 EDT, [place],[facility]/pharmacy #[id number], 1 sprays Nares, Both 2 times a day, 163, cm, 04/03/20 14:59:00 EDT, Height, 88.9, kg, 04/03/20 14:59:00 EDT, Dry Weight Start Date: 04/03/20 Status: Orderedlithium 300 mg oral tablet 1 tablet = 300 mg, By Mouth, Daily in AM, # 30 tablet, 0 Refills, Maintenance, 01/01/20 16:16:00 EDT, Tablet, [facility]/pharmacy #[id number], 163, cm, 01/01/20 14:39:00 EDT, Height, 86.5, kg, 12/19/19 19:14:00 EDT, Dry Weight Start Date: 01/01/20 Stop Date: 01/29/20 Status: Orderedlithium 600 mg oral capsule 1 capsule = 600 mg, By Mouth, Daily at bedtime, # 30 capsule, 0 Refills, Maintenance, 01/01/20 16:16:00 EDT, Capsule, [facility]/pharmacy #[id number], 163, cm, 01/01/20 14:39:00 EDT, [...] water before taking Start Date: 08/06/19 Status: Orderedomeprazole 20 mg oral enteric coated capsule 1 capsule = 20 mg, By Mouth, Daily, # 30 capsule, 0 Refills, Maintenance, 01/08/20 11:07:00 EDT, EC Capsule, [facility]/pharmacy #[id number], 163, cm, 01/02/20 7:50:00 EDT, Height, 86.5, kg, 12/19/19 19:14:00 EDT, Dry Weight Start Date: 01/08/20 Status: Orderedperphenazine 16 mg oral tablet 16 mg, 1, tablet, By Mouth, 2 times a day, # 60 tablet, Refills 0, Tot. Refills 0, Maintenance, 01/01/20 16:18:00 EDT, Route to Pharmacy Electronically, [facility]/pharmacy #[id number], 163, cm, 01/01/20 14:39:00 EDT, Height, 86.5, kg, 12/19/19 19:14:00 EDT, Dry W... Start Date: 01/01/20 Status: Orderedperphenazine 8 mg oral tablet 8 mg, 1, tablet, By Mouth, 2 times a day, PRN, Indicated for severe agitation/psychosis and to be taken 8 hours apart, # 60 tablet, Refills 0, Tot. Refills 0, Maintenance, Psychosis, 01/02/20 4:30:00 EDT, Route to Pharmacy Electronically, [facility]/pharmacy... Start Date: 01/02/20 Status: Orderedsimethicone 125 mg oral capsule 1 capsule = 125 mg, By Mouth, 3 times a day after meals and bedtime, PRN Other, prn gas, # 48 capsule, 2 Refills, Maintenance, 04/03/20 15:26:00 EDT, Capsule, [facility]/pharmacy #[id number], 163, cm, 04/03/20 14:59:00 EDT, Height, 88.9, kg, 04/03/20 14:59:00 EDT,... Start Date: 04/03/20 Status: OrderedTums 500 mg oral tablet, chewable 1,000 mg, 2, tablet, Chew, Every 6 hours, PRN, # 120 tablet, Refills 11, Tot. Refills 11, Maintenance, for indigestion, 08/06/19 12:12:32 EST, Route to Pharmacy Electronically, [facility]/pharmacy #[id number] Start Date: 08/06/19 Stop Date: 07/01/20 Status: OrderedZyrTEC 10 mg oral tablet 1 tablet = 10 mg, By Mouth, Daily, # 30 tablet, 3 Refills, Maintenance, 04/03/20 15:37:00 EDT, Tablet, [facility]/pharmacy #[id number], 163, cm, 04/03/20 14:59:00 EDT, Height, 88.9, kg, 04/03/20 14:59:00 EDT, Dry Weight Start Date: 04/03/20 Status: Ordered Problem List Condition Effective Dates Status Health Status Informant Chronic constipation(Confirmed) Active Chronic post-traumatic stress Active disorder(Confirmed) Depression(Confirmed) Active alcohol syndrome(Confirmed) Active Foster Care (Status)(Confirmed) Active Chronic GERD(Confirmed) Active Hyperprolactinemia(Confirmed) Active JAMISON - Iron deficiency Active anemia(Confirmed) Obesity(Confirmed) Active Oligomenorrhea(Confirmed) Active Personality disorder(Confirmed) Active hx Psychosis(Confirmed) 2009 Active Schizoaffective Active schizophrenia(Confirmed) hx suicidal ideation w/ suicidal Active attempt(Confirmed) Weight gain with seroquel in the Active past(Confirmed)1 1Really accelerated when seroquel dose increased Social History Social History Type Response Smoking Status Light tobacco smoker entered on: 09/26/14 Sex
--- OUTSIDE RECORDS SUMMARY | 2022-06-29 21:22 | XMS_ITS | Continuity of Care Document ---
:1990 [facility] Address [address] [place] [address], [address] [place] [address]- Care Team Providers Name Role Phone Fatoumata Stokes DO Primary Care Physician [place] [facility] [place]): [place] 07/22/20 [facility] [address] [facility], [address] [place] [address]- [facility] Attending Physician: Clayton Alvarez MD Allergies, Adverse Reactions, Alerts Substance Reaction [...] 11/22/19 13:30:00 EST, Route to Pharmacy Electronically, [facility]/pharmacy #[id number], 159, cm, 11/19/19 8:17:00 EST, Height, 89.7, kg, 11/14/19 9... Start Date: 11/22/19 Status: OrderedAquaphor Healing topical ointment See Instructions, APPLY TO NIPPLE DAILY NEEDED FOR DISCOMFORT, # 50 Gm, 0 Refills, Maintenance, [id number], 7, APPLY TO NIPPLE DAILY NEEDED FOR DISCOMFORT, 159, cm, 12/10/19 11:02:00 EDT, Height, 86.7, kg, 12/10/19 11:02:00 EDT, Dry Weight Start Date: 12/10/19 Status: Orderedbenztropine 1 mg oral tablet 1 mg, 1, tablet, By Mouth, 2 times a day, # 60 tablet, Refills 0, Tot. Refills 0, Maintenance, 01/01/20 16:15:00 EDT, [id number], cm, 01/01/20 14:39:00 EDT, Height, 86.5, kg, 12/19/19 19:14:00 EDT, Dry We... Start Date: 01/01/20 Stop Date: 01/31/20 Status: OrderedDepo-Provera Contraceptive 150 mg/mL intramuscular suspension 1 mL = 150 mg, Intramuscular, Every 3 months, # 1 mL, 3 Refills, Maintenance, 05/28/20 11:29:00 EDT,Suspension, [facility], 163, cm, 05/28/20 11:24:00 EDT, Height, 88.9, kg, 04/03/20 14:59:00 EDT, Dry Weight Start Date: 05/28/20 Status: Ordereddocusate sodium 100 mg oral capsule 100 mg, 1, capsule, By Mouth, 2 times a day, # 60 capsule, Refills 11, Tot. Refills 11, Maintenance,01/08/20 11:07:00 EDT, [id number] 163, cm, 01/02/20 7:50:00 EDT, Height, 86.5, kg, 12/19/19 19:14:00 EDT, D... Start Date: 01/08/20 Stop Date: 01/02/21 Status: Orderedestradiol 0.1 mg/24 hours twice weekly transdermal film, extended release 1 patch, Topically, Every Tuesday and , # 8 patch, 6 Refills, Maintenance, 05/28/20 11:01:00 EDT, [facility]/pharmacy #[id number], 163, cm, 04/03/20 14:59:00 EDT, Height, 88.9, kg, 04/03/20 14:59:00 EDT, DryWeight Start Date: 05/28/20 Status: OrderedEucerin Plus topical lotion 1 application, Topically, 2 times a day, PRN for dry skin, May apply to affected area every 6 hours as needed, up to 2 times/day, # 180 mL, 11 Refills, Maintenance, 08/06/19 12:15:04 EST, Lotion, [facility]/pharmacy #[id number] Start Date: 08/06/19 Status: Orderedferrous sulfate 325 mg oral enteric coated tablet 325 mg, 1, tablet, By Mouth, Daily, # 30 tablet, Refills 11, Tot. Refills 11, Maintenance, 01/08/20 11:07:00 EDT, Route to Pharmacy Electronically, [facility]/pharmacy #[id number], 163, cm, 01/02/20 7:50:00 EDT, Height, 86.5, kg, 12/19/19 19:14:00 EDT, Dry Weight Start Date: 01/08/20 Status: OrderedFlonase 50 mcg/inh nasal spray 1 sprays, Nares, Both, 2 times a day, # 16 Gm, 5 Refills, Maintenance, 07/04/20 9:01:00 EDT, [place], [facility]/pharmacy #[id number], 1 sprays Nares, Both 2 times a day, 163, cm, 05/28/20 11:24:00 EDT, Height, 102.3, kg, 06/22/20 23:55:00 EDT, Dry Weight Start Date: 07/04/20 Status: Orderedlithium 300 mg oral tablet 1 tablet = 300 mg, By Mouth, Daily in AM, # 30 tablet, 0 Refills, Maintenance, 01/01/20 16:16:00 EDT, Tablet, [facility]/pharmacy #[id number], 163, cm, 01/01/20 14:39:00 EDT, Height, 86.5, kg, 12/19/19 19:14:00 EDT, Dry Weight Start Date: 01/01/20 Stop Date: 01/29/20 Status: Orderedlithium 600 mg oral capsule 1 capsule = 600 mg, By Mouth, Daily at bedtime, # 30 capsule, 0 Refills, Maintenance, 01/01/20 16:16:00 EDT, Capsule, [facility]/pharmacy #[id number], 163, cm, 01/01/20 14:39:00 EDT, Height, 86.5, kg, 12/19/19 19:14:00 EDT, Dry Weight Start Date: 01/01/20 Stop Date: 03/01/20 Status: OrderedMiraLax oral powder for reconstitution = 17 Gm, By Mouth, Daily, dissolve in water before taking, # 255 Gm, 0 Refills, Maintenance, 07/11/20 15:38:00 EDT, REC Powder, [facility]/pharmacy #[id number], 17 Gm By Mouth Daily,Instr:dissolve in water before taking, 163, cm, 05/28/20 11:24:00 EDT, Height, 102... Start Date: 07/11/20 Status: OrderedMiraLax oral powder for reconstitution = [...] Refills, Maintenance, 07/07/20 11:44:00 EDT, EC Capsule, [facility]/pharmacy #[id number], 163, cm, 05/28/20 11:24:00 EDT, Height, 102.3, kg, 06/22/20 23:55:00 EDT, Dry Weight Start Date: 07/07/20 Status: Orderedperphenazine 16 mg oral tablet 16 mg, 1, tablet, By Mouth, 2 times a day, # 60 tablet, Refills 0, Tot. Refills 0, Maintenance, 01/01/20 16:18:00 EDT, Route to Pharmacy Electronically, [facility]/pharmacy #[id number], 163, cm, 01/01/20 [...] 01/02/20 4:30:00 EDT, Route to Pharmacy Electronically, [facility]/pharmacy... Start Date: 01/02/20 Status: Orderedsimethicone 125 mg oral capsule See Instructions, TAKE 1 CAPSULE BY MOUTH THREE TIMES A DAY AFTER MEALS AND AT BEDTIME NEEDED, # 48 capsule, 2 Refills, Acute, [id number], 163, cm, 05/28/20 11:24:00 EDT, Height, 88.9, kg, 04/03/20 14:59:00 EDT, Dry Weight Start Date: 06/03/20 Status: OrderedTums 500 mg oral tablet, chewable 1,000 mg, 2, tablet, Chew, Every 6 hours, PRN, # 120 tablet, Refills 11, Tot. Refills 11, Maintenance, for indigestion, 08/06/19 12:12:32 EST, Route to Pharmacy Electronically, [facility]/pharmacy #[id number] Start Date: 08/06/19 Stop Date: 07/01/20 Status: OrderedZyrTEC 10 mg oral tablet 1 tablet = 10 mg, By Mouth, Daily, # 30 tablet, 5 Refills, Maintenance, 07/22/20 15:24:00 EDT, Tablet, [facility]/pharmacy #[id number], 163, cm, 05/28/20 [...]
--- OUTSIDE RECORDS SUMMARY | 2022-06-29 21:22 | XMS_ITS | Continuity of Care Document ---
:1990 Author Organization [facility] Address [address] [place] [address]- Care Team Providers Name Role Phone Fatoumata Stokes DO Primary Care Physician Encounter [facility] Date(s): 10/02/19 - 01/30/20 [facility] [address] [place] [address]- [facility] Attending Physician: Fatoumata Stokes DO Allergies, Adverse Reactions, Alerts Substance Reaction Severity [...] 11/22/19 13:30:00 EST, Route to Pharmacy Electronically, [facility]/pharmacy #[id number], 159, cm, 11/19/19 8:17:00 EST, Height, 89.7, kg, 11/14/19 9... Start Date: 11/22/19 Status: OrderedAquaphor Healing topical ointment See Instructions, APPLY TO NIPPLE DAILY NEEDED FOR DISCOMFORT, # 50 Gm, 0 Refills, Maintenance, [id number], 7, APPLY TO NIPPLE DAILY NEEDED FOR DISCOMFORT, 159, cm, 12/10/19 11:02:00 EDT, Height, 86.7, kg, 12/10/19 11:02:00 EDT, Dry Weight Start Date: 12/10/19 Status: Orderedbenztropine 1 mg oral tablet 1 mg, 1, tablet, By Mouth, 2 times a day, # 60 tablet, Refills 0, Tot. Refills 0, Maintenance, 01/01/20 16:15:00 EDT, Route to Pharmacy Electronically, [facility]pharm[facility] #[id number], 163, cm, 01/01/20 14:39:00 EDT, Height, 86.5, kg, 12/19/19 19:14:00 EDT, Dry We... Start Date: 01/01/20 Stop Date: 01/31/20 Status: OrderedDepo-Provera Contraceptive 150 mg/mL intramuscular suspension 1 mL = 150 mg, Intramuscular, Every 3 months, # 1 mL, 3 Refills, Maintenance, 12/10/19 11:23:00 EDT,Suspension, [facility], 159, cm, 12/10/19 11:02:00 [...] patch, 6 Refills, Maintenance, 12/10/19 11:19:00 EDT, [facility]/pharmacy #[id number], 159, cm, 12/10/19 11:02:00 EDT, Height, 86.7, kg, 12/10/19 11:02:00 EDT, DryWeight Start Date: 12/10/19 Status: OrderedEucerin Plus topical lotion 1 application, Topically, 2 times a day, PRN for dry skin, May apply to affected area every 6 hours as needed, up to 2 times/day, # 180 mL, 11 Refills, Maintenance, 08/06/19 12:15:04 EST, Lotion, [facility]/pharmacy #[id number] Start Date: 08/06/19 Status: Orderedferrous sulfate 325 mg oral enteric coated tablet 325 mg, 1, tablet, By Mouth, Daily, # 30 tablet, Refills 11, Tot. Refills 11, Maintenance, 01/08/20 11:07:00 EDT, Route to Pharmacy Electronically, [facility]/pharmacy #[id number], 163, cm, 01/02/20 7:50:00 EDT, Height, 86.5, kg, 12/19/19 19:14:00 EDT, Dry Weight Start Date: 01/08/20 Status: Orderedlithium 300 mg oral tablet 1 tablet = 300 mg, By Mouth, Daily in AM, # 30 tablet, 0 Refills, Maintenance, 01/01/20 16:16:00 EDT, Tablet, [facility]/pharmacy #[id number], 163, cm, 01/01/20 14:39:00 EDT, Height, 86.5, kg, 12/19/19 19:14:00 EDT, Dry Weight Start Date: 01/01/20 Stop Date: 01/29/20 Status: Orderedlithium 600 mg oral capsule 1 capsule = 600 mg, By Mouth, Daily at bedtime, # 30 capsule, 0 Refills, Maintenance, 01/01/20 16:16:00 EDT, Capsule, [facility]/pharmacy #[id number], 163, cm, 01/01/20 14:39:00 EDT, Height, [...] Refills, Maintenance, 01/08/20 11:07:00 EDT, EC Capsule, [facility]/pharmacy #[id number], 163, cm, 01/02/20 7:50:00 EDT, Height, 86.5, kg, 12/19/19 19:14:00 EDT, Dry Weight Start Date: 01/08/20 Status: Orderedperphenazine 16 mg oral tablet 16 mg, 1, tablet, By Mouth, 2 times a day, # 60 tablet, Refills 0, Tot. Refills 0, Maintenance, 01/01/20 16:18:00 EDT, Route to Pharmacy Electronically, [facility]/pharmacy #[id number], 163, cm, 01/01/20 14:39:00 EDT, Height, 86.5, kg, 12/19/19 19:14:00 EDT, Dry W... Start Date: 01/01/20 Status: Orderedperphenazine 8 mg oral tablet 8 mg, 1, tablet, By Mouth, 2 times a day, PRN, Indicated for severe agitation/psychosis and to be taken 8 hours apart, # 60 tablet, Refills 0, Tot. Refills 0, Maintenance, Psychosis, 01/02/20 4:30:00 EDT, Route to Pharmacy Electronically, [facility]/pharmacy... Start Date: 01/02/20 Status: OrderedTums 500 mg oral tablet, chewable 1,000 mg, 2, tablet, Chew, Every 6 hours, PRN, # 120 tablet, Refills 11, Tot. Refills 11, Maintenance, for indigestion, 08/06/19 12:12:32 EST, Route to Pharmacy Electronically, [facility]/pharmacy #[id number] Start Date: 08/06/19 Stop Date: 07/01/20 Status: Ordered Problem List Condition Effective Dates [...]
--- OUTSIDE RECORDS SUMMARY | 2022-06-29 21:22 | XMS_ITS | Continuity of Care Document ---
:1990 Author Organization [facility] Address [address] [place] [id number]- Care Team Providers Name Role Phone Fatoumata Stokes DO Primary Care Physician Encounter [facility] [place] Date(s): 03/13/21 - 06/28/21 [facility], [address] [place] [id number] Attending Physician: Shannon Castrejon MD Referring Physician: Ashley Hallman MD Allergies, Adverse Reactions, Alerts Substance Reaction [...] Conjugate Vaccine 12/26/12 Recorded Meningococcal Conjugate Vaccine 11/08/06 Given FluLaval (oldterm) 06/13/12 Given Human Papillomavirus [...] 05/28/21 7:42:00 EDT, Route to Pharmacy Electronically, [facility]/pharmacy #[id number], 164, cm, 04/07/21 15:35:00 EDT, Height, 112, kg, 10/14/20 10... Start Date: 05/28/21 Status: OrderedBenefiber oral powder for reconstitution 5 mL, By Mouth, 2 times a day, PRN as needed for constipation, dissolve in 4 to 8 oz of beverage or soft food- hot or cold, # 155 Gm, 11 Refills, Maintenance, 03/05/21 15:58:00 EDT, REC Powder, [facility]/pharmacy #[id number], Partial fill upon patient request if... Start Date: 03/05/21 Status: Orderedbenztropine 1 mg oral tablet 1 mg, 1, tablet, By Mouth, 2 times a day, # 60 tablet, Refills 0, Tot. Refills 0, Maintenance, 01/01/20 16:15:00 EDT, Route to Pharmacy Electronically, [facility]/pharmacy #[id number], 163, cm, 01/01/20 14:39:00 EDT, Height, 86.5, kg, 12/19/19 19:14:00 EDT, Dry We... Start Date: 01/01/20 Stop Date: 01/31/20 Status: Orderedcetirizine 10 mg oral tablet 1 tablet, By Mouth, Daily, # 30 tablet, 5 Refills, Maintenance, 02/16/21 14:03:00 EDT, [facility] [id number], 164, cm, 10/14/20 10:13:00 EST, Height, 112, kg, 10/14/20 10:13:00 EST, Dry Weight Start Date: 02/16/21 Status: Ordereddocusate sodium 100 mg oral capsule 1 capsule, By Mouth, 2 times a day, # 60 capsule, 5 Refills, Maintenance, 01/12/21 20:05:00 EDT, [id number] 164, cm, 10/14/20 10:13:00 EST, Height, 112, kg, 10/14/20 10:13:00 EST, Dry Weight Start Date: 01/12/21 Status: OrderedEstradiol Patch 0.1 mg/24 hours twice weekly transdermal film, extended release See Instructions, APPLY 1 PATCH TOPICALLY EVERY TUESDAY & TUESDAY, # 8 patch, 12 Refills, 03/13/21 13:04:00 EDT, [facility]/pharmacy #[id number], 28, APPLY 1 PATCH TOPICALLY EVERY TUESDAY & TUESDAY, 164, cm, 03/13/21 9:51:00 EDT, Height, 112, kg, 10/14/20 10:13:00... Start Date: 03/13/21 Status: Orderedferrous sulfate 325 mg oral enteric coated tablet 325 mg, 1, tablet, By Mouth, Daily, # 90 tablet, Refills 1, Tot. Refills 1, Maintenance, 10/31/20 16:01:00 EST, Route to Pharmacy Electronically, [facility]/pharmacy #[id number], 164, cm, 10/14/20 10:13:00 EST, Height, 112, kg, 10/14/20 10:13:00 EST, Dry Weight Start Date: 10/31/20 Status: Orderedfluticasone 50 mcg/inh nasal spray See Instructions, USE 1 SPRAY IN EACH NOSTRIL TWICE A DAY, # 16 mL, 5 Refills, Maintenance, [facility] [id number], 30, USE 1 SPRAY IN EACH NOSTRIL TWICE A DAY, 164, cm, 10/14/20 10:13:00 EST, Height, 112, kg, 10/14/20 10:13:00 EST, Dry Weight Start Date: 03/06/21 Status: Orderedlithium 300 mg oral tablet 1 tablet = 300 mg, By Mouth, Daily in AM, # 30 tablet, 0 Refills, Maintenance, 01/01/20 16:16:00 EDT, Tablet, [facility]/pharmacy #[id number], 163, cm, 01/01/20 14:39:00 EDT, Height, 86.5, kg, 12/19/19 19:14:00 EDT, Dry Weight Start Date: 01/01/20 Stop Date: 01/29/20 Status: Orderedlithium 600 mg oral capsule 1 capsule = 600 mg, By Mouth, Daily at bedtime, # 30 capsule, 0 Refills, Maintenance, 01/01/20 16:16:00 EDT, Capsule, [facility]/pharmacy #[id number], 163, cm, 01/01/20 14:39:00 EDT, Height, 86.5, kg, 12/19/19 19:14:00 EDT, Dry Weight Start Date: 01/01/20 Stop Date: 03/01/20 Status: OrderedmedroxyPROGESTERone 150 mg/mL intramuscular suspension 1 mL, Intramuscular, Every 3 months, # 1 mL, 3 Refills, Soft Stop, 03/13/21 13:05:00 EDT, [facility]/pharmacy #[id number], 164, cm, 03/13/21 9:51:00 EDT, Height, 112, kg, 10/14/20 10:13:00 EST, Dry Weight Start Date: 03/13/21 Status: OrderedMiraLax oral powder for reconstitution = 17 Gm, By Mouth, Daily, dissolve in water before taking, # 255 Gm, 0 Refills, Maintenance, 07/11/20 15:38:00 EDT, REC Powder, [facility]/pharmacy #[id number], 17 Gm By Mouth Daily,Instr:dissolve in water before taking, 163, cm, 05/28/20 11:24:00 EDT, Height, 102... Start Date: 07/11/20 Status: Orderedomeprazole 20 mg oral enteric coated capsule 1 capsule, By Mouth, Daily, # 90 capsule, 0 Refills, Maintenance, 04/17/21 13:04:00 EDT, [id number], 164, cm, 04/07/21 15:35:00 EDT, Height, 112, kg, 10/14/20 10:13:00 EST, Dry Weight Start Date: 04/17/21 Status: Orderedperphenazine 16 mg oral tablet 16 mg, 1, tablet, By Mouth, 2 times a day, # 60 tablet, Refills 0, Tot. Refills 0, Maintenance, 01/01/20 16:18:00 EDT, Route to Pharmacy Electronically, [facility]/pharmacy #[id number], 163, cm, 01/01/20 14:39:00 EDT, Height, 86.5, kg, 12/19/19 19:14:00 EDT, Dry W... Start Date: 01/01/20 Status: Orderedperphenazine 8 mg oral tablet 8 mg, 1, tablet, By Mouth, 2 times a day, PRN, Indicated for severe agitation/psychosis and to be taken 8 hours apart, # 60 tablet, Refills 0, Tot. Refills 0, Maintenance, Psychosis, 01/02/20 4:30:00 EDT, Route to Pharmacy Electronically, [facility]/pharmacy... Start Date: 01/02/20 Status: OrderedSenna 8.6 mg oral tablet 1, tablet, By Mouth, Daily at bedtime, PRN, # 60 tablet, Refills 1, Tot. Refills 0, Acute, NEEDEDFOR CONSTIPATION, 02/19/21 17:23:00 EDT, Route to Pharmacy Electronically, [facility] [id number], 164, cm,10/14/20 10:13:00 EST, Height, 112, kg, 10/14/20... Start Date: 02/19/21 Status: Orderedsimethicone 125 mg oral capsule See Instructions, TAKE 1 CAPSULE BY MOUTH THREE TIMES A DAY AFTER MEALS AND AT BEDTIME NEEDED, # 48 capsule, 11 Refills, [id number], 164, cm, 04/07/21 15:35:00 EDT, Height, 112, [...]
--- OUTSIDE RECORDS SUMMARY | 2022-06-29 21:22 | XMS_ITS | Continuity of Care Document ---
:[address] [facility] Address [address] [place] [address]- Care Team Providers Name Role Phone Fatoumata Stokes DO Primary Care Physician Encounter [facility] Date(s): 07/20/21 - 08/19/21 [facility] [address] [place], [place] [address] Attending Physician: Fatoumata Stokes DO Allergies, Adverse [...] 05/28/21 7:42:00 EDT, Route to Pharmacy Electronically, [facility]/pharmacy #[id number], 164, cm, 04/07/21 15:35:00 EDT, Height, 112, kg, 10/14/20 10... Start Date: 05/28/21 Status: OrderedBenefiber oral powder for reconstitution 5 mL, By Mouth, 2 times a day, PRN as needed for constipation, dissolve in 4 to 8 oz of beverage or soft food- hot or cold, # 155 Gm, 11 Refills, Maintenance, 03/05/21 15:58:00 EDT, REC Powder, [facility]/pharmacy #[id number], Partial fill upon patient request if... Start Date: 03/05/21 Status: Orderedbenztropine 1 mg oral tablet 1 mg, 1, tablet, By Mouth, 2 times a day, # 60 tablet, Refills 0, Tot. Refills 0, Maintenance, 01/01/20 16:15:00 EDT, Route to Pharmacy Electronically, [facility]/pharmacy #[id number], 163, cm, 01/01/20 14:39:00 EDT, Height, 86.5, kg, 12/19/19 19:14:00 EDT, Dry We... Start Date: 01/01/20 Stop Date: 01/31/20 Status: Orderedcetirizine 10 mg oral tablet 1 tablet, By Mouth, Daily, # 30 tablet, 2 Refills, [id number], 164, cm, 05/28/21 13:07:00 EDT, Height, 112, kg, 10/14/20 10:13:00 EST, Dry Weight Start Date: 07/08/21 Status: Ordereddocusate sodium 100 mg oral capsule 1 capsule, By Mouth, 2 times a day, # 60 capsule, 5 Refills, Maintenance, 07/27/21 14:02:00 EDT, [facility]/pharmacy #[id number], 164, cm, 05/28/21 13:07:00 EDT, Height, 112, kg, 10/14/20 10:13:00 EST, Dry Weight Start Date: 07/27/21 Status: OrderedEstradiol Patch 0.1 mg/24 hours twice weekly transdermal film, extended release See Instructions, APPLY 1 PATCH TOPICALLY EVERY TUESDAY & TUESDAY, # 8 patch, 12 Refills, 03/13/21 13:04:00 EDT, [facility]/pharmacy #[id number], 28, APPLY 1 PATCH TOPICALLY EVERY TUESDAY & TUESDAY, 164, cm, 03/13/21 9:51:00 EDT, Height, 112, kg, 10/14/20 10:13:00... Start Date: 03/13/21 Status: Orderedferrous sulfate 325 mg oral enteric coated tablet 1, tablet, By Mouth, Daily, # 90 tablet, Refills 1, Route to Pharmacy Electronically, [facility] [id number], 164, cm, 05/28/21 13:07:00 EDT, Height, 112, kg, 10/14/20 10:13:00 EST, Dry Weight Start Date: 07/08/21 Status: Orderedfluticasone 50 mcg/inh nasal spray See Instructions, USE 1 SPRAY IN EACH NOSTRIL TWICE A DAY, # 16 mL, 5 Refills, Maintenance, [id number], 30, USE 1 SPRAY IN EACH NOSTRIL TWICE A DAY, 164, cm, 10/14/20 10:13:00 EST, Height, 112, kg, 10/14/20 10:13:00 EST, Dry Weight Start Date: 03/06/21 Status: Orderedlithium 300 mg oral tablet 1 tablet = 300 mg, By Mouth, Daily in AM, # 30 tablet, 0 Refills, Maintenance, 01/01/20 16:16:00 EDT, Tablet, [facility]/pharmacy #[id number], 163, cm, 01/01/20 14:39:00 EDT, Height, 86.5, kg, 12/19/19 19:14:00 EDT, Dry Weight Start Date: 01/01/20 Stop Date: 01/29/20 Status: Orderedlithium 600 mg oral capsule 1 capsule = 600 mg, By Mouth, Daily at bedtime, # 30 capsule, 0 Refills, Maintenance, 01/01/20 16:16:00 EDT, Capsule, [facility]/pharmacy #[id number], 163, cm, 01/01/20 14:39:00 EDT, Height, 86.5, kg, 12/19/19 19:14:00 EDT, Dry Weight Start Date: 01/01/20 Stop Date: 03/01/20 Status: OrderedmedroxyPROGESTERone 150 mg/mL intramuscular suspension 1 mL, Intramuscular, Every 3 months, # 1 mL, 3 Refills, Soft Stop, 03/13/21 13:05:00 EDT, [facility]/pharmacy #[id number], 164, cm, 03/13/21 9:51:00 EDT, Height, 112, kg, 10/14/20 10:13:00 EST, Dry Weight Start Date: 03/13/21 Status: OrderedMiraLax oral powder for reconstitution = 17 Gm, By Mouth, Daily, dissolve in water before taking, # 255 Gm, 0 Refills, Maintenance, 07/11/20 15:38:00 EDT, REC Powder, [facility]/pharmacy #[id number], 17 Gm By Mouth Daily,Instr:dissolve in water before taking, 163, cm, 05/28/20 11:24:00 EDT, Height, 102... Start Date: 07/11/20 Status: Orderedomeprazole 20 mg oral enteric coated capsule 1 capsule, By Mouth, Daily, # 90 capsule, 0 Refills, Maintenance, 04/17/21 13:04:00 EDT, [id number], 164, cm, 04/07/21 15:35:00 EDT, Height, 112, kg, 10/14/20 10:13:00 EST, Dry Weight Start Date: 04/17/21 Status: Orderedperphenazine 16 mg oral tablet 16 mg, 1, tablet, By Mouth, 2 times a day, # 60 tablet, Refills 0, Tot. Refills 0, Maintenance, 01/01/20 16:18:00 EDT, Route to Pharmacy Electronically, [facility]/pharmacy #[id number], 163, cm, 01/01/20 14:39:00 EDT, Height, 86.5, kg, 12/19/19 19:14:00 EDT, Dry W... Start Date: 01/01/20 Status: Orderedperphenazine 8 mg oral tablet 8 mg, 1, tablet, By Mouth, 2 times a day, PRN, Indicated for severe agitation/psychosis and to be taken 8 hours apart, # 60 tablet, Refills 0, Tot. Refills 0, Maintenance, Psychosis, 01/02/20 4:30:00 EDT, Route to Pharmacy Electronically, [facility]/pharmacy... Start Date: 01/02/20 Status: OrderedSenna 8.6 mg oral tablet 1, tablet, By Mouth, Daily at bedtime, PRN, # 60 tablet, Refills 1, Tot. Refills 0, Acute, NEEDEDFOR CONSTIPATION, 02/19/21 17:23:00 EDT, Route to Pharmacy Electronically, [id number], 164, cm,10/14/20 10:13:00 EST, Height, 112, kg, 10/14/20... Start Date: 02/19/21 Status: Orderedsimethicone 125 mg oral capsule See Instructions, TAKE 1 CAPSULE BY MOUTH THREE TIMES A DAY AFTER MEALS AND AT BEDTIME NEEDED, # 48 capsule, 11 Refills, [id number], 164, cm, 04/07/21 15:35:00 EDT, Height, 112, [...]
--- OUTSIDE RECORDS SUMMARY | 2022-06-29 21:22 | XMS_ITS | Continuity of Care Document ---
:1990 Author Organization [facility] Address [address] [place] [id number]- Care Team Providers Name Role Phone Fatoumata Stokes DO Primary Care Physician [facility] Date[facility]s): 10/14/20 - 10/14/[address] [address]- Discharge Disposition: A-D/C Home Attending Physician: Dedrick Adams MD Admitting Physician: Dedrick Adams MD Referring Physician: Not on Staff, Referring [...] 07/15/09 Given influ virus vac, H1N1, live(oldterm) 1/8/10 Given Meningococcal Conjugate Vaccine 11/08/06 Given tetanus-diphtheria [...] 11/22/19 13:30:00 EST, Route to Pharmacy Electronically, [facility]/pharmacy #[id number], 159, cm, 11/19/19 8:17:00 EST, Height, 89.7, kg, 11/14/19 9... Start Date: 11/22/19 Status: OrderedAquaphor Healing topical ointment See Instructions, APPLY TO NIPPLE DAILY NEEDED FOR DISCOMFORT, # 50 Gm, 0 Refills, Maintenance, [id number], 7, APPLY TO NIPPLE DAILY NEEDED FOR DISCOMFORT, 159, cm, 12/10/19 11:02:00 EDT, Height, 86.7, kg, 12/10/19 11:02:00 EDT, Dry Weight Start Date: 12/10/19 Status: Orderedbenztropine 1 mg oral tablet 1 mg, 1, tablet, By Mouth, 2 times a day, # 60 tablet, Refills 0, Tot. Refills 0, Maintenance, 01/01/20 16:15:00 EDT, Route to Pharmacy Electronically, [facility]/pharmacy #[id number], 163, cm, 01/01/20 14:39:00 EDT, Height, 86.5, kg, 12/19/19 19:14:00 EDT, Dry We... Start Date: 01/01/20 Stop Date: 01/31/20 Status: OrderedDepo-Provera Contraceptive 150 mg/mL intramuscular suspension 1 mL = 150 mg, Intramuscular, Every 3 months, # 1 mL, 3 Refills, Maintenance, 08/26/20 9:54:00 EST, Suspension, [facility], 163, cm, 05/28/20 11:24:00 EDT, Height, 100, kg, 08/04/20 11:40:00 EST, Dry Weight Start Date: 08/26/20 Status: Ordereddocusate sodium 100 mg oral capsule 100 mg, 1, capsule, By Mouth, 2 times a day, # 60 capsule, Refills 11, Tot. Refills 11, Maintenance,01/08/20 11:07:00 EDT, Route to Pharmacy Electronically, [facility]/pharmacy #[id number], 163, cm, 01/02/20 7:50:00 EDT, Height, 86.5, kg, 12/19/19 19:14:00 EDT, D... Start Date: 01/08/20 Stop Date: 01/02/21 Status: Orderedestradiol 0.1 mg/24 hours twice weekly transdermal film, extended release 1 patch, Topically, Every Tuesday and , # 8 patch, 6 Refills, Maintenance, 05/28/20 11:01:00 EDT, [facility]/pharmacy #[id number], 163, cm, 04/03/20 14:59:00 EDT, Height, 88.9, kg, 04/03/20 14:59:00 EDT, DryWeight Start Date: 05/28/20 Status: OrderedEucerin Plus topical lotion 1 application, Topically, 2 times a day, PRN for dry skin, May apply to affected area every 6 hours as needed, up to 2 times/day, # 180 mL, 11 Refills, Maintenance, 08/06/19 12:15:04 EST, Lotion, [facility]/pharmacy #[id number] Start Date: 08/06/19 Status: Orderedferrous sulfate 325 mg oral enteric coated tablet 325 mg, 1, tablet, By Mouth, Daily, # 30 tablet, Refills 11, Tot. Refills 11, Maintenance, 01/08/20 11:07:00 EDT, Route to Pharmacy Electronically, [facility]/pharmacy #[id number], 163, cm, 01/02/20 7:50:00 EDT, Height, 86.5, kg, 12/19/19 19:14:00 EDT, Dry Weight Start Date: 01/08/20 Status: OrderedFlonase 50 mcg/inh nasal spray 1 sprays, Nares, Both, 2 times a day, # 16 Gm, 5 Refills, Maintenance, 07/04/20 9:01:00 EDT, [place], [facility]/pharmacy #[id number], 1 sprays Nares, Both 2 times a day, 163, cm, 05/28/20 11:24:00 EDT, Height, 102.3, kg, 06/22/20 23:55:00 EDT, Dry Weight Start Date: 07/04/20 Status: Orderedlithium 300 mg oral tablet 1 tablet = 300 mg, By Mouth, Daily in AM, # 30 tablet, 0 Refills, Maintenance, 01/01/20 16:16:00 EDT, Tablet, [facility]/pharmacy #[id number], 163, cm, 01/01/20 14:39:00 EDT, Height, 86.5, kg, 12/19/19 19:14:00 EDT, Dry Weight Start Date: 01/01/20 Stop Date: 01/29/20 Status: Orderedlithium 600 mg oral capsule 1 capsule = 600 mg, By Mouth, Daily at bedtime, # 30 capsule, 0 Refills, Maintenance, 01/01/20 16:16:00 EDT, Capsule, [facility]/pharmacy #[id number], 163, cm, 01/01/20 14:39:00 EDT, Height, 86.5, kg, 12/19/19 19:14:00 EDT, Dry Weight Start Date: 01/01/20 Stop Date: 03/01/20 Status: OrderedMiraLax oral powder for reconstitution = 17 Gm, By Mouth, Daily, PRN Constipation, dissolve in water before taking, # 255 Gm, 11 Refills, Maintenance, 11/11/19 12:12:31 EST, REC Powder, 17 Gm By Mouth Daily,PRN:Constipation,Instr:dissolve in water before taking Start Date: 08/06/19 Status: OrderedMiraLax oral powder for reconstitution = 17 Gm, By Mouth, Daily, dissolve in water before taking, # 255 Gm, 0 Refills, Maintenance, 07/11/20 15:38:00 EDT, REC Powder, [facility]/pharmacy #[id number], 17 Gm By Mouth Daily,Instr:dissolve in water before taking, 163, cm, 05/28/20 11:24:00 EDT, Height, 102... Start Date: 07/11/20 Status: Orderedomeprazole 20 mg oral enteric coated capsule 1 capsule = 20 mg, By Mouth, Daily, # 30 capsule, 5 Refills, Maintenance, 07/07/20 11:44:00 EDT, EC Capsule, [facility]/pharmacy #[id number], 163, cm, 05/28/20 11:24:00 EDT, Height, 102.3, kg, 06/22/20 23:55:00 EDT, Dry Weight Start Date: 07/07/20 Status: Orderedperphenazine 16 mg oral tablet 16 mg, 1, tablet, By Mouth, 2 times a day, # 60 tablet, Refills 0, Tot. Refills 0, Maintenance, 01/01/20 16:18:00 EDT, Route to Pharmacy Electronically, [facility]/pharmacy #[id number], 163, cm, 01/01/20 14:39:00 EDT, Height, 86.5, kg, 12/19/19 19:14:00 EDT, Dry W... Start Date: 01/01/20 Status: Orderedperphenazine 8 mg oral tablet 8 mg, 1, tablet, By Mouth, 2 times a day, PRN, Indicated for severe agitation/psychosis and to be taken 8 hours apart, # 60 tablet, Refills 0, Tot. Refills 0, Maintenance, Psychosis, 01/02/20 4:30:00 EDT, Route to Pharmacy Electronically, [facility]/pharmacy... Start Date: 01/02/20 Status: Orderedsimethicone 125 mg oral capsule See Instructions, TAKE 1 CAPSULE BY MOUTH THREE TIMES A DAY AFTER MEALS AND AT BEDTIME NEEDED, # 48 capsule, 2 Refills, Maintenance, 08/13/20 17:29:00 EST, [facility]/pharmacy #[id number], 163, cm, 05/28/20 11:24:00 EDT, Height, 100, kg, 08/04/20 11:40:00 EST,... Start Date: 08/13/20 Status: OrderedTums 500 mg oral tablet, chewable 1,000 mg, 2, tablet, Chew, Every 6 hours, PRN, # 120 tablet, Refills 11, Tot. Refills 11, Maintenance, for indigestion, 08/06/19 12:12:32 EST, Route to Pharmacy Electronically, [facility]/pharmacy #[id number] Start Date: 08/06/19 Stop Date: 07/01/20 Status: OrderedZyrTEC 10 mg oral tablet 1 tablet = 10 mg, By Mouth, Daily, # 30 tablet, 5 Refills, Maintenance, 07/22/20 15:24:00 EDT, Tablet, [facility]/pharmacy #[id number], 163, cm, 05/28/20 11:24:00 EDT, Height, [...] Vital Signs Most recent to oldest [Reference Range]: 1 2 Height 164 cm (10/14/20 10:13 AM) Weight 112 kg (10/14/20 10:13 AM) Oxygen Saturation [94-100 %] 95 % 95 % (10/14/20 4:26 PM) (10/14/20 10:13 AM) Pulse Rate [55-90 bpm] 80 bpm 77 bpm (10/14/20 4:26 PM) (10/14/20 10:13 AM) Blood Pressure [90-138/55-84 mm Hg] 131/70 mm Hg 123/ 78 mm Hg (10/14/20 4:26 PM) (10/14/20 10:13 AM) Respiratory Rate [16-30 br/min] 20 br/min 18 br/mi n (10/14/20 4:26 PM) (10/14/20 10:13 AM) Temperature [96.8-100.4 DegF] 98.6 DegF (10/14/20 10:13 AM) Mode of Delivery (Oxygen) Room air Room air (10/14/20 4:26 PM) (10/14/20 10:13 AM) Dry Weight 112 kg (10/14/20 10:13 AM) Social History Social History Type Response Tobacco Use: 4 or less cigarettes(le ss than 1/4 pack)/day in last 30 days. Sex Female
--- OUTSIDE RECORDS SUMMARY | 2022-06-29 21:22 | XMS_ITS | Continuity of Care Document ---
:1990 Author Organization [facility] Address [address] [place] [id number]- Care Team Providers Name Role Phone Fatoumata Stokes DO Primary Care Physician [facility] Date[facility]s): 10/25/20 - 10/26/[address] [address]- Encounter Diagnosis Schizoaffective disorder (Final) - 10/26/20 Discharge Disposition: A-D/C Home Attending Physician: Sheila Ayala MD Admitting Physician: Sheila Ayala MD Referring Physician: Not on Staff, Referring MD Allergies, Adverse Reactions, Alerts Substance Reaction Severity Status Flagyl Active cloZAPine Active paliperidone Active Invega Active Immunizations Given and Recorded [...] 11/22/19 13:30:00 EST, Route to Pharmacy Electronically, [facility]/pharmacy #[id number], 159, cm, 11/19/19 8:17:00 EST, Height, 89.7, kg, 11/14/19 9... Start Date: 11/22/19 Status: OrderedAquaphor Healing topical ointment See Instructions, APPLY TO NIPPLE DAILY NEEDED FOR DISCOMFORT, # 50 Gm, 0 Refills, Maintenance, [id number], 7, APPLY TO NIPPLE DAILY NEEDED FOR DISCOMFORT, 159, cm, 12/10/19 11:02:00 EDT, Height, 86.7, kg, 12/10/19 11:02:00 EDT, Dry Weight Start Date: 12/10/19 Status: Orderedbenztropine 1 mg oral tablet 1 mg, 1, tablet, By Mouth, 2 times a day, # 60 tablet, Refills 0, Tot. Refills 0, Maintenance, 01/01/20 16:15:00 EDT, Route to Pharmacy Electronically, [facility]/pharmacy #[id number], 163, cm, 01/01/20 14:39:00 EDT, Height, 86.5, kg, 12/19/19 19:14:00 EDT, Dry We... Start Date: 01/01/20 Stop Date: 01/31/20 Status: OrderedDepo-Provera Contraceptive 150 mg/mL intramuscular suspension 1 mL = 150 mg, Intramuscular, Every 3 months, # 1 mL, 3 Refills, Maintenance, 08/26/20 9:54:00 EST, Suspension, [facility], 163, cm, 05/28/20 11:24:00 EDT, Height, 100, kg, 08/04/20 11:40:00 EST, Dry Weight Start Date: 08/26/20 Status: Ordereddocusate sodium 100 mg oral capsule 100 mg, 1, capsule, By Mouth, 2 times a day, # 60 capsule, Refills 11, Tot. Refills 11, Maintenance,01/08/20 11:07:00 EDT, Route to Pharmacy Electronically, [facility]/pharmacy #[id number], 163, cm, 01/02/20 7:50:00 EDT, Height, 86.5, kg, 12/19/19 19:14:00 EDT, D... Start Date: 01/08/20 Stop Date: 01/02/21 Status: Orderedestradiol 0.1 mg/24 hours twice weekly transdermal film, extended release 1 patch, Topically, Every Tuesday and , # 8 patch, 6 Refills, Maintenance, 05/28/20 11:01:00 EDT, [facility]/pharmacy #[id number], 163, cm, 04/03/20 14:59:00 EDT, Height, 88.9, kg, 04/03/20 14:59:00 EDT, DryWeight Start Date: 05/28/20 Status: OrderedEucerin Plus topical lotion 1 application, Topically, 2 times a day, PRN for dry skin, May apply to affected area every 6 hours as needed, up to 2 times/day, # 180 mL, 11 Refills, Maintenance, 08/06/19 12:15:04 EST, Lotion, [facility]/pharmacy #[id number] Start Date: 08/06/19 Status: Orderedferrous sulfate 325 mg oral enteric coated tablet 325 mg, 1, tablet, By Mouth, Daily, # 30 tablet, Refills 11, Tot. Refills 11, Maintenance, 01/08/20 11:07:00 EDT, Route to Pharmacy Electronically, [facility]/pharmacy #[id number], 163, cm, 01/02/20 7:50:00 EDT, Height, 86.5, kg, 12/19/19 19:14:00 EDT, Dry Weight Start Date: 01/08/20 Status: OrderedFlonase 50 mcg/inh nasal spray 1 sprays, Nares, Both, 2 times a day, # 16 Gm, 5 Refills, Maintenance, 07/04/20 9:01:00 EDT, [place], [facility]/pharmacy #[id number], 1 sprays Nares, Both 2 times a day, 163, cm, 05/28/20 11:24:00 EDT, Height, 102.3, kg, 06/22/20 23:55:00 EDT, Dry Weight Start Date: 07/04/20 Status: Orderedlithium 300 mg oral tablet 1 tablet = 300 mg, By Mouth, Daily in AM, # 30 tablet, 0 Refills, Maintenance, 01/01/20 16:16:00 EDT, Tablet, [facility]/pharmacy #[id number], 163, cm, 01/01/20 14:39:00 EDT, Height, 86.5, kg, 12/19/19 19:14:00 EDT, Dry Weight Start Date: 01/01/20 Stop Date: 01/29/20 Status: Orderedlithium 600 mg oral capsule 1 capsule = 600 mg, By Mouth, Daily at bedtime, # 30 capsule, 0 Refills, Maintenance, 01/01/20 16:16:00 EDT, Capsule, [facility]/pharmacy #[id number], 163, cm, 01/01/20 14:39:00 EDT, [...] Refills, Maintenance, 07/11/20 15:38:00 EDT, REC Powder, [facility]/pharmacy #[id number], 17 Gm By Mouth Daily,Instr:dissolve in water before taking, 163, cm, 05/28/20 11:24:00 EDT, Height, 102... Start Date: 07/11/20 Status: Orderedomeprazole 20 mg oral enteric coated capsule 1 capsule = 20 mg, By Mouth, Daily, # 30 capsule, 5 Refills, Maintenance, 07/07/20 11:44:00 EDT, EC Capsule, [facility]/pharmacy #[id number], 163, cm, 05/28/20 11:24:00 EDT, Height, 102.3, kg, 06/22/20 23:55:00 EDT, Dry Weight Start Date: 07/07/20 Status: Orderedperphenazine 16 mg oral tablet 16 mg, 1, tablet, By Mouth, 2 times a day, # 60 tablet, Refills 0, Tot. Refills 0, Maintenance, 01/01/20 16:18:00 EDT, Route to Pharmacy Electronically, [facility]/pharmacy #[id number], 163, cm, 01/01/20 14:39:00 EDT, Height, 86.5, kg, 12/19/19 19:14:00 EDT, Dry W... Start Date: 01/01/20 Status: Orderedperphenazine 8 mg oral tablet 8 mg, 1, tablet, By Mouth, 2 times a day, PRN, Indicated for severe agitation/psychosis and to be taken 8 hours apart, # 60 tablet, Refills 0, Tot. Refills 0, Maintenance, Psychosis, 01/02/20 4:30:00 EDT, Route to Pharmacy Electronically, [facility]/pharmacy... Start Date: 01/02/20 Status: Orderedsimethicone 125 mg oral capsule See Instructions, TAKE 1 CAPSULE BY MOUTH THREE TIMES A DAY AFTER MEALS AND AT BEDTIME NEEDED, # 48 capsule, 11 Refills, Maintenance, 10/21/20 9:08:00 EST, [facility]/pharmacy #[id number], 164, cm, 10/14/20 10:13:00 EST, Height, 112, kg, 10/14/20 10:13:00 EST,... Start Date: 10/21/20 Status: OrderedTums 500 mg oral tablet, chewable 1,000 mg, 2, tablet, Chew, Every 6 hours, PRN, # 120 tablet, Refills 11, Tot. Refills 11, Maintenance, for indigestion, 08/06/19 12:12:32 EST, Route to Pharmacy Electronically, [facility]/pharmacy #[id number] Start Date: 08/06/19 Stop Date: 07/01/20 Status: OrderedZyrTEC 10 mg oral tablet 1 tablet = 10 mg, By Mouth, Daily, # 30 tablet, 5 Refills, Maintenance, 07/22/20 15:24:00 EDT, Tablet, [facility]/pharmacy #[id number], 163, cm, 05/28/20 11:24:00 EDT, [...] increased Vital Signs Most recent to oldest 1 2 3 [Reference Range]: Oxygen Saturation [94-100 %] 100 % 100 % 100 % (10/26/20 9:46 AM) (10/26/20 7:58 AM) (10/26/20 5:5 4 AM) Pulse Rate [55-90 bpm] 69 bpm 75 bpm 73 bpm (10/26/20 9:46 AM) (10/26/20 7:58 AM) (10/26/20 5:5 4 AM) Blood Pressure [90-138/55-84 128/62 mm Hg 123/65 mm Hg 117 /76 mm Hg mm Hg] (10/26/20 9:46 AM) (10/26/20 7:58 AM) (10/26/20 5:5 4 AM) Respiratory Rate [16-30 16 br/min 18 br/min 18 br/mi n br/min] (10/26/20 9:46 AM) (10/26/20 7:58 AM) (10/26/20 5:5 4 AM) Temperature [96.8-100.4 DegF] 98.5 DegF 98.5 DegF 97 .9 DegF (10/26/20 9:46 AM) (10/26/20 7:58 AM) (10/25/20 11: 37 PM) Mode of Delivery (Oxygen) Room air Room air Room a ir (10/26/20 9:46 AM) (10/26/20 7:58 AM) (10/26/20 5:5 4 AM) Blood pressure sites Arm, left Arm, right Arm, right (10/26/20 9:46 AM) (10/26/20 7:58 AM) (10/26/20 5:5 4 AM) Temperature Route Oral Oral Oral (10/26/20 9:46 AM) (10/26/20 7:58 AM) (10/25/20 11: 37 PM) Social History Social History Type Response Tobacco Use: 4 or less cigarettes(le ss than 1/4 pack)/day in last 30 days. Sex Female
--- OUTSIDE RECORDS SUMMARY | 2022-06-29 21:22 | XMS_ITS | Continuity of Care Document ---
:1990 Author Organization [facility] Address [address] [place] [address], [address] [place] [id number]- Care Team Providers Name Role Phone Fatoumata Stokes DO Primary Care Physician [facility]): 06[facility]12[facility]21 - 07/12/21 [facility] [place] [address], [address] [place] [id number] Allergies, Adverse Reactions, Alerts Substance Reaction Severity [...] 05/28/21 7:42:00 EDT, Route to Pharmacy Electronically, [facility]/pharmacy #[id number], 164, cm, 04/07/21 15:35:00 EDT, Height, 112, kg, 10/14/20 10... Start Date: 05/28/21 Status: OrderedBenefiber oral powder for reconstitution 5 mL, By Mouth, 2 times a day, PRN as needed for constipation, dissolve in 4 to 8 oz of beverage or soft food- hot or cold, # 155 Gm, 11 Refills, Maintenance, 03/05/21 15:58:00 EDT, REC Powder, [facility]/pharmacy #[id number], Partial fill upon patient request if... Start Date: 03/05/21 Status: Orderedbenztropine 1 mg oral tablet 1 mg, 1, tablet, By Mouth, 2 times a day, # 60 tablet, Refills 0, Tot. Refills 0, Maintenance, 01/01/20 16:15:00 EDT, Route to Pharmacy Electronically, [facility]/pharmacy #[id number], 163, cm, 01/01/20 14:39:00 EDT, Height, 86.5, kg, 12/19/19 19:14:00 EDT, Dry We... Start Date: 01/01/20 Stop Date: 01/31/20 Status: Orderedcetirizine 10 mg oral tablet 1 tablet, By Mouth, Daily, # 30 tablet, 2 Refills, [id number], 164, cm, 05/28/21 13:07:00 EDT, Height, 112, kg, 10/14/20 10:13:00 EST, Dry Weight Start Date: 07/08/21 Status: Ordereddocusate sodium 100 mg oral capsule 1 capsule, By Mouth, 2 times a day, # 60 capsule, 5 Refills, Maintenance, 01/12/21 20:05:00 EDT, [id number], 164, cm, 10/14/20 10:13:00 EST, Height, 112, kg, 10/14/20 10:13:00 EST, Dry Weight Start Date: 01/12/21 Status: OrderedEstradiol Patch 0.1 mg/24 hours twice weekly transdermal film, extended release See Instructions, APPLY 1 PATCH TOPICALLY EVERY TUESDAY & TUESDAY, # 8 patch, 12 Refills, 03/13/21 13:04:00 EDT, [facility]/pharmacy #[id number], 28, APPLY 1 PATCH TOPICALLY EVERY TUESDAY & TUESDAY, 164, cm, 03/13/21 9:51:00 EDT, Height, 112, kg, 10/14/20 10:13:00... Start Date: 03/13/21 Status: Orderedferrous sulfate 325 mg oral enteric coated tablet 1, tablet, By Mouth, Daily, # 90 tablet, Refills 1, Route to Pharmacy Electronically, [id number], 164, cm, 05/28/21 13:07:00 EDT, Height, 112, kg, 10/14/20 10:13:00 EST, Dry Weight Start Date: 07/08/21 Status: Orderedfluticasone 50 mcg/inh nasal spray See Instructions, USE 1 SPRAY IN EACH NOSTRIL TWICE A DAY, # 16 mL, 5 Refills, Maintenance, [id number], 30, USE 1 SPRAY IN EACH NOSTRIL TWICE A DAY, 164, cm, 10/14/20 10:13:00 EST, Height, 112, kg, 10/14/20 10:13:00 EST, Dry Weight Start Date: 03/06/21 Status: Orderedlithium 300 mg oral tablet 1 tablet = 300 mg, By Mouth, Daily in AM, # 30 tablet, 0 Refills, Maintenance, 01/01/20 16:16:00 EDT, Tablet, [facility]/pharmacy #[id number], 163, cm, 01/01/20 14:39:00 EDT, Height, 86.5, kg, 12/19/19 19:14:00 EDT, Dry Weight Start Date: 01/01/20 Stop Date: 01/29/20 Status: Orderedlithium 600 mg oral capsule 1 capsule = 600 mg, By Mouth, Daily at bedtime, # 30 capsule, 0 Refills, Maintenance, 01/01/20 16:16:00 EDT, Capsule, [facility]/pharmacy #[id number], 163, cm, 01/01/20 14:39:00 EDT, Height, 86.5, kg, 12/19/19 19:14:00 EDT, Dry Weight Start Date: 01/01/20 Stop Date: 03/01/20 Status: OrderedmedroxyPROGESTERone 150 mg/mL intramuscular suspension 1 mL, Intramuscular, Every 3 months, # 1 mL, 3 Refills, Soft Stop, 03/13/21 13:05:00 EDT, [facility]/pharmacy #[id number], 164, cm, 03/13/21 9:51:00 EDT, Height, 112, kg, 10/14/20 10:13:00 EST, Dry Weight Start Date: 03/13/21 Status: OrderedMiraLax oral powder for reconstitution = 17 Gm, By Mouth, Daily, dissolve in water before taking, # 255 Gm, 0 Refills, Maintenance, 07/11/20 15:38:00 EDT, REC Powder, [facility]/pharmacy #[id number], 17 Gm By Mouth Daily,Instr:dissolve in water before taking, 163, cm, 05/28/20 11:24:00 EDT, Height, 102... Start Date: 07/11/20 Status: Orderedomeprazole 20 mg oral enteric coated capsule 1 capsule, By Mouth, Daily, # 90 capsule, 0 Refills, Maintenance, 04/17/21 13:04:00 EDT, [id number], 164, cm, 04/07/21 15:35:00 EDT, Height, 112, kg, 10/14/20 10:13:00 EST, Dry Weight Start Date: 04/17/21 Status: Orderedperphenazine 16 mg oral tablet 16 mg, 1, tablet, By Mouth, 2 times a day, # 60 tablet, Refills 0, Tot. Refills 0, Maintenance, 01/01/20 16:18:00 EDT, Route to Pharmacy Electronically, [facility]/pharmacy #[id number], 163, cm, 01/01/20 [...] 01/02/20 4:30:00 EDT, Route to Pharmacy Electronically, [facility]/pharmacy... Start Date: 01/02/20 Status: OrderedSenna 8.6 mg oral tablet 1, tablet, By Mouth, Daily at bedtime, PRN, # 60 tablet, Refills 1, Tot. Refills 0, Acute, NEEDEDFOR CONSTIPATION, 02/19/21 17:23:00 EDT, Route to Pharmacy Electronically, [id number], 164, cm,10/14/20 10:13:00 EST, Height, 112, kg, 10/14/20... Start Date: 02/19/21 Status: Orderedsimethicone 125 mg oral capsule See Instructions, TAKE 1 CAPSULE BY MOUTH THREE TIMES A DAY AFTER MEALS AND AT BEDTIME NEEDED, # 48 capsule, 11 Refills, [id number], 164, cm, 04/07/21 15:35:00 EDT, Height, 112, [...]
--- OUTSIDE RECORDS SUMMARY | 2022-06-29 21:22 | XMS_ITS | Continuity of Care Document ---
:1990 Author Organization [facility] Address [address] [place] [address]- Care Team Providers Name Role Phone Fatoumata Stokes DO Primary Care Physician [facility] 04[facility]21 - 08/19/21 [facility] [address] [place], [place] [address] Attending Physician: Fatoumata Stokes DO Allergies, Adverse [...] # 30 tablet, 2 Refills, [facility], 164, cm, 05/28/21 13:07:00 EDT, Height, 112, kg, 10/14/20 10:13:00 EST, Dry Weight Start Date: 07/08/21 Status: Ordereddocusate sodium 100 mg oral capsule 1 capsule, By Mouth, 2 times a day, # 60 capsule, 5 Refills, Maintenance, 07/27/21 14:02:00 EDT, [facility]/pharmacy #[id number], 164, cm, 05/28/21 13:07:00 EDT, Height, [...] tablet, Refills 1, Route to Pharmacy Electronically, [facility] [id number], 164, cm, 05/28/21 13:07:00 EDT, Height, 112, kg, 10/14/20 10:13:00 EST, Dry Weight Start Date: 07/08/21 Status: Orderedfluticasone 50 mcg/inh nasal spray See Instructions, USE 1 SPRAY IN EACH NOSTRIL TWICE A DAY, # 16 mL, 5 Refills, Maintenance, [facility] 117[facility], 30, USE 1 SPRAY IN EACH NOSTRIL [...] 3 Refills, Soft Stop, 03/13/21 13:05:00 EDT, [facility]/pharmacy #[id number], 164, cm, 03/13/21 9:51:00 EDT, Height, [...] capsule, 0 Refills, Maintenance, 04/17/21 13:04:00 EDT, [facility], 164, cm, 04/07/21 15:35:00 EDT, Height, 112, [...] 02/19/21 17:23:00 EDT, Route to Pharmacy Electronically, [facility] 414[facility], 164, cm,10/14/20 10:13:00 EST, Height, 112, kg, 10/14/20... Start Date: 02/19/21 Status: Orderedsimethicone 125 mg oral capsule See Instructions, TAKE 1 CAPSULE BY MOUTH THREE TIMES A DAY AFTER MEALS AND AT BEDTIME NEEDED, # 48 capsule, 11 Refills, [facility], 164, cm, 04/07/21 15:35:00 EDT, Height, 112, [...]
--- OUTSIDE RECORDS SUMMARY | 2022-06-29 21:23 | XMS_ITS | Continuity of Care Document ---
:1990 Author Organization [facility] Address [address] [place] [id number]- Care Team Providers Name Role Phone Fatoumata Stokes DO Primary Care Physician [facility] Date[facility]): 04/29/21 - 05/29/21 [facility] [address] [place] [id number]- Allergies, Adverse Reactions, Alerts Substance Reaction Severity [...] 05/28/21 7:42:00 EDT, Route to Pharmacy Electronically, [facility]/pharmacy #[id number], 164, cm, 04/07/21 15:35:00 EDT, Height, 112, kg, 10/14/20 10... Start Date: 05/28/21 Status: OrderedBenefiber oral powder for reconstitution 5 mL, By Mouth, 2 times a day, PRN as needed for constipation, dissolve in 4 to 8 oz of beverage or soft food- hot or cold, # 155 Gm, 11 Refills, Maintenance, 03/05/21 15:58:00 EDT, REC Powder, [facility]/pharmacy #[id number], Partial fill upon patient request if... Start Date: 03/05/21 Status: Orderedbenztropine 1 mg oral tablet 1 mg, 1, tablet, By Mouth, 2 times a day, # 60 tablet, Refills 0, Tot. Refills 0, Maintenance, 01/01/20 16:15:00 EDT, Route to Pharmacy Electronically, [facility]/pharmacy #[id number], 163, cm, 01/01/20 14:39:00 EDT, Height, 86.5, kg, 12/19/19 19:14:00 EDT, Dry We... Start Date: 01/01/20 Stop Date: 01/31/20 Status: Orderedcetirizine 10 mg oral tablet 1 tablet, By Mouth, Daily, # 30 tablet, 5 Refills, Maintenance, 02/16/21 14:03:00 EDT, [facility] STORE [id number], 164, cm, 10/14/20 10:13:00 EST, Height, 112, kg, 10/14/20 10:13:00 EST, Dry Weight Start Date: 02/16/21 Status: Ordereddocusate sodium 100 mg oral capsule 1 capsule, By Mouth, 2 times a day, # 60 capsule, 5 Refills, Maintenance, 01/12/21 20:05:00 EDT[id number], 164, cm, 10/14/20 10:13:00 EST, Height, 112, kg, 10/14/20 10:13:00 EST, Dry Weight Start Date: 01/12/21 Status: OrderedEstradiol Patch 0.1 mg/24 hours twice weekly transdermal film, extended release See Instructions, APPLY 1 PATCH TOPICALLY EVERY TUESDAY & TUESDAY, # 8 patch, 12 Refills, 03/13/21 13:04:00 EDT, [facility]/pharmacy #[id number], 28, APPLY 1 PATCH TOPICALLY EVERY TUESDAY & TUESDAY, 164, cm, 03/13/21 9:51:00 EDT, Height, 112, kg, 10/14/20 10:13:00... Start Date: 03/13/21 Status: Orderedferrous sulfate 325 mg oral enteric coated tablet 325 mg, 1, tablet, By Mouth, Daily, # 90 tablet, Refills 1, Tot. Refills 1, Maintenance, 10/31/20 16:01:00 EST, Route to Pharmacy Electronically, [facility]/pharmacy #[id number], 164, cm, 10/14/20 10:13:00 EST, Height, 112, kg, 10/14/20 10:13:00 EST, Dry Weight Start Date: 10/31/20 Status: Orderedfluticasone 50 mcg/inh nasal spray See Instructions, USE 1 SPRAY IN EACH NOSTRIL TWICE A DAY, # 16 mL, 5 Refills, Maintenance, [facility] [id number], 30, USE 1 SPRAY IN EACH NOSTRIL TWICE A DAY, 164, cm, 10/14/20 10:13:00 EST, Height, 112, kg, 10/14/20 10:13:00 EST, Dry Weight Start Date: 03/06/21 Status: Orderedlithium 300 mg oral tablet 1 tablet = 300 mg, By Mouth, Daily in AM, # 30 tablet, 0 Refills, Maintenance, 01/01/20 16:16:00 EDT, Tablet, [facility]/pharmacy #[id number], 163, cm, 01/01/20 14:39:00 EDT, Height, 86.5, kg, 12/19/19 19:14:00 EDT, Dry Weight Start Date: 01/01/20 Stop Date: 01/29/20 Status: Orderedlithium 600 mg oral capsule 1 capsule = 600 mg, By Mouth, Daily at bedtime, # 30 capsule, 0 Refills, Maintenance, 01/01/20 16:16:00 EDT, Capsule, [facility]/pharmacy #[id number], 163, cm, 01/01/20 14:39:00 EDT, [...] Refills, Maintenance, 07/11/20 15:38:00 EDT, REC Powder, [facility]/pharmacy #[id number], 17 Gm By Mouth Daily,Instr:dissolve in water before taking, 163, cm, 05/28/20 11:24:00 EDT, Height, 102... Start Date: 07/11/20 Status: Orderedomeprazole 20 mg oral enteric coated capsule 1 capsule, By Mouth, Daily, # 90 capsule, 0 Refills, Maintenance, 04/17/21 13:04:00 EDT, [id number], 164, cm, 04/07/21 15:35:00 EDT, Height, 112, kg, 10/14/20 10:13:00 EST, Dry Weight Start Date: 04/17/21 Status: Orderedperphenazine 16 mg oral tablet 16 mg, 1, tablet, By Mouth, 2 times a day, # 60 tablet, Refills 0, Tot. Refills 0, Maintenance, 01/01/20 16:18:00 EDT, Route to Pharmacy Electronically, [facility]/pharmacy #[id number], 163, cm, 01/01/20 14:39:00 EDT, Height, 86.5, kg, 12/19/19 19:14:00 EDT, Dry W... Start Date: 01/01/20 Status: Orderedperphenazine 8 mg oral tablet 8 mg, 1, tablet, By Mouth, 2 times a day, PRN, Indicated for severe agitation/psychosis and to be taken 8 hours apart, # 60 tablet, Refills 0, Tot. Refills 0, Maintenance, Psychosis, 01/02/20 4:30:00 EDT, Route to Pharmacy Electronically, [facility]/pharmacy... Start Date: 01/02/20 Status: OrderedSenna 8.6 mg oral tablet 1, tablet, By Mouth, Daily at bedtime, PRN, # 60 tablet, Refills 1, Tot. Refills 0, Acute, NEEDEDFOR CONSTIPATION, 02/19/21 17:23:00 EDT, Route to Pharmacy Electronically, [id number], 164, cm,10/14/20 10:13:00 EST, Height, 112, kg, 10/14/20... Start Date: 02/19/21 Status: Orderedsimethicone 125 mg oral capsule See Instructions, TAKE 1 CAPSULE BY MOUTH THREE TIMES A DAY AFTER MEALS AND AT BEDTIME NEEDED, # 48 capsule, 11 Refills, [id number], 164, cm, 04/07/21 15:35:00 EDT, Height, 112, [...]
--- OUTSIDE RECORDS SUMMARY | 2022-06-29 21:23 | XMS_ITS | Continuity of Care Document ---
:1990 Author Organization [facility] Address [address] [place] [id number]- Care Team Providers Name Role Phone Fatoumata Stokes DO Primary Care Physician [facility] Date[facility]): 04/[facility]/20 - 04/20/[address] [address]- [facility] Discharge Disposition: A-D/C Home Attending Physician: Anaya Nelson MD Admitting Physician: Anaya Nelson MD Referring Physician: Not on Staff, Referring [...] 13:30:00 EST, Route to Pharmacy Electronically, [facility]/pharmacy #[id number], 159, cm, 11/19/19 8:17:00 EST, Height, 89.7, kg, 11/14/19 9... Start Date: 11/22/19 Status: OrderedAquaphor Healing topical ointment See Instructions, APPLY TO NIPPLE DAILY NEEDED FOR DISCOMFORT, # 50 Gm, 0 Refills, Maintenance, [facility], 7, APPLY TO NIPPLE DAILY NEEDED FOR DISCOMFORT, 159, cm, 12/10/19 11:02:00 EDT, Height, 86.7, kg, 12/10/19 11:02:00 EDT, Dry Weight Start Date: 12/10/19 Status: Orderedbenztropine 1 mg oral tablet 1 mg, 1, tablet, By Mouth, 2 times a day, # 60 tablet, Refills 0, Tot. Refills 0, Maintenance, 01/01/20 16:15:00 EDT, Route to Pharmacy Electronically, [facility]/pharmacy #[id number], 163, cm, 01/01/20 14:39:00 EDT, Height, 86.5, kg, 12/19/19 19:14:00 EDT, Dry We... Start Date: 01/01/20 Stop Date: 01/31/20 Status: OrderedDepo-Provera Contraceptive 150 mg/mL intramuscular suspension 1 mL = 150 mg, Intramuscular, Every 3 months, # 1 mL, 3 Refills, Maintenance, 12/10/19 11:23:00 EDT,Suspension, [facility], 159, cm, 12/10/19 11:02:00 EDT, Height, 86.7, kg, 12/10/19 11:02:00 EDT, Dry Weight Start Date: 12/10/19 Status: Ordereddocusate sodium 100 mg oral capsule 100 mg, 1, capsule, By Mouth, 2 times a day, # 60 capsule, Refills 11, Tot. Refills 11, Maintenance,01/08/20 11:07:00 EDT, Route to Pharmacy Electronically, [facility]/pharmacy #[id number], 163, cm, 01/02/20 7:50:00 EDT, Height, 86.5, kg, 12/19/19 19:14:00 EDT, D... Start Date: 01/08/20 Stop Date: 01/02/21 Status: Orderedestradiol 0.1 mg/24 hours twice weekly transdermal film, extended release 1 patch, Topically, Every Tuesday and , # 8 patch, 6 Refills, Maintenance, 12/10/19 11:19:00 EDT, [facility]/pharmacy #[id number], 159, cm, 12/10/19 11:02:00 EDT, Height, 86.7, kg, 12/10/19 11:02:00 EDT, DryWeight Start Date: 12/10/19 Status: OrderedEucerin Plus topical lotion 1 application, Topically, 2 times a day, PRN for dry skin, May apply to affected area every 6 hours as needed, up to 2 times/day, # 180 mL, 11 Refills, Maintenance, 08/06/19 12:15:04 EST, Lotion, [facility]/pharmacy #[id number] Start Date: 08/06/19 Status: Orderedferrous sulfate 325 mg oral enteric coated tablet 325 mg, 1, tablet, By Mouth, Daily, # 30 tablet, Refills 11, Tot. Refills 11, Maintenance, 01/08/20 11:07:00 EDT, Route to Pharmacy Electronically, [facility]/pharmacy #[id number], 163, cm, 01/02/20 7:50:00 EDT, Height, 86.5, kg, 12/19/19 19:14:00 EDT, Dry Weight Start Date: 01/08/20 Status: OrderedFlonase 50 mcg/inh nasal spray 1 sprays, Nares, Both, 2 times a day, # 16 Gm, 3 Refills, Maintenance, 04/03/20 15:37:00 EDT, [place],[facility]/pharmacy #[id number], 1 sprays Nares, Both 2 times a day, 163, cm, 04/03/20 14:59:00 EDT, Height, 88.9, kg, 04/03/20 14:59:00 EDT, Dry Weight Start Date: 04/03/20 Status: Orderedlithium 300 mg oral tablet 1 tablet = 300 mg, By Mouth, Daily in AM, # 30 tablet, 0 Refills, Maintenance, 01/01/20 16:16:00 EDT, Tablet, [facility]/pharmacy #[id number], 163, cm, 01/01/20 14:39:00 EDT, Height, 86.5, kg, 12/19/19 19:14:00 EDT, Dry Weight Start Date: 01/01/20 Stop Date: 01/29/20 Status: Orderedlithium 600 mg oral capsule 1 capsule = 600 mg, By Mouth, Daily at bedtime, # 30 capsule, 0 Refills, Maintenance, 01/01/20 16:16:00 EDT, Capsule, [facility]/pharmacy #[id number], 163, cm, 01/01/20 14:39:00 [...] Maintenance, 01/08/20 11:07:00 EDT, EC Capsule, [facility]/pharmacy #[id number], 163, cm, 01/02/20 7:50:00 EDT, Height, 86.5, kg, 12/19/19 19:14:00 EDT, Dry Weight Start Date: 01/08/20 Status: Orderedperphenazine 16 mg oral tablet 16 mg, 1, tablet, By Mouth, 2 times a day, # 60 tablet, Refills 0, Tot. Refills 0, Maintenance, 01/01/20 16:18:00 EDT, Route to Pharmacy Electronically, [facility]/pharmacy #[id number], 163, cm, 01/01/20 14:39:00 [...] 4:30:00 EDT, Route to Pharmacy Electronically, [facility]/pharmacy... Start Date: 01/02/20 Status: Orderedsimethicone 125 mg oral capsule 1 capsule = 125 mg, By Mouth, 3 times a day after meals and bedtime, PRN Other, prn gas, # 48 capsule, 2 Refills, Maintenance, 04/03/20 15:26:00 EDT, Capsule, [facility]/pharmacy #[id number], 163, cm, 04/03/20 14:59:00 EDT, Height, 88.9, kg, 04/03/20 14:59:00 EDT,... Start Date: 04/03/20 Status: OrderedTums 500 mg oral tablet, chewable 1,000 mg, 2, tablet, Chew, Every 6 hours, PRN, # 120 tablet, Refills 11, Tot. Refills 11, Maintenance, for indigestion, 08/06/19 12:12:32 EST, Route to Pharmacy Electronically, [facility]/pharmacy #[id number] Start Date: 08/06/19 Stop Date: 07/01/20 Status: OrderedZyrTEC 10 mg oral tablet 1 tablet = 10 mg, By Mouth, Daily, # 30 tablet, 3 Refills, Maintenance, 04/03/20 15:37:00 EDT, Tablet, [facility]/pharmacy #[id number], 163, cm, 04/03/20 14:59:00 EDT, Height, 88.9, kg, 04/03/20 14:59:00 EDT, Dry Weight Start Date: 04/03/20 Status: Ordered Problem List Condition Effective Dates Status Health Status Informant Chronic constipation(Confirmed) Active Chronic post-traumatic stress Active disorder(Confirmed) Depression(Confirmed) Active alcohol syndrome(Confirmed) Active Foster Care (Status)(Confirmed) Active Chronic GERD(Confirmed) Active Hyperprolactinemia(Confirmed) Active JAMSION - Iron deficiency Active anemia(Confirmed) Obesity(Confirmed) Active Oligomenorrhea(Confirmed) Active Personality disorder(Confirmed) Active hx Psychosis(Confirmed) 2009 Active Schizoaffective Active schizophrenia(Confirmed) hx suicidal ideation w/ suicidal Active attempt(Confirmed) Weight gain with seroquel in the Active past(Confirmed)1 1Really accelerated when seroquel dose increased Vital Signs Most recent to oldest [Reference Range]: 1 2 Oxygen Saturation [94-100 %] 100 % 100 % (04/20/20 6:18 PM) (04/20/20 3:47 PM) Pulse Rate [55-90 bpm] 84 bpm 99 bpm (04/20/20 6:18 PM) *H* (04/20/20 3:47 PM) Blood Pressure [90-138/55-84 mm Hg] 122/68 mm Hg 124/ 77 mm Hg (04/20/20 6:18 PM) (04/20/20 3:47 PM) Respiratory Rate [16-30 br/min] 16 br/min 16 br/mi n (04/20/20 6:18 PM) (04/20/20 3:47 PM) Temperature [96.8-100.4 DegF] 99.2 DegF 98.6 DegF (7/26/20 6:18 PM) (04/20/20 3:47 PM) Mode of Delivery (Oxygen) Room air Room air (04/20/20 6:18 PM) (04/20/20 3:47 PM) Blood pressure sites Arm, right Arm, right (04/20/20 6:18 PM) (04/20/20 3:47 PM) Temperature Route Oral Oral (04/20/20 6:18 PM) (04/20/20 3:47 PM) Social History Social History Type Response Smoking Status Light tobacco smoker entered on: 09/26/14 Sex
--- OUTSIDE RECORDS SUMMARY | 2022-06-29 21:23 | XMS_ITS | Continuity of Care Document ---
:1990 Author Organization [facility] Address [address] [place] [address]- Care Team Providers Name Role Phone Fatoumata Stokes DO Primary Care Physician [facility] Date[facility]s): 03/05/21 - 04/04/21 [facility] [address] [place], [place] [address] Allergies, Adverse Reactions, Alerts Substance Reaction [...] 11/22/19 13:30:00 EST, Route to Pharmacy Electronically, [facility]/pharmacy #[id number], 159, cm, 11/19/19 8:17:00 EST, Height, 89.7, kg, 11/14/19 9... Start Date: 11/22/19 Status: OrderedBenefiber oral powder for reconstitution 5 mL, By Mouth, 2 times a day, PRN as needed for constipation, dissolve in 4 to 8 oz of beverage or soft food- hot or cold, # 155 Gm, 11 Refills, Maintenance, 03/05/21 15:58:00 EDT, REC Powder, [facility]/pharmacy #[id number], Partial fill upon patient request if... Start Date: 03/05/21 Status: Orderedbenztropine 1 mg oral tablet 1 mg, 1, tablet, By Mouth, 2 times a day, # 60 tablet, Refills 0, Tot. Refills 0, Maintenance, 01/01/20 16:15:00 EDT, Route to Pharmacy Electronically, [facility]/pharmacy #[id number], 163, cm, 01/01/20 14:39:00 EDT, Height, 86.5, kg, 12/19/19 19:14:00 EDT, Dry We... Start Date: 01/01/20 Stop Date: 01/31/20 Status: Orderedcetirizine 10 mg oral tablet 1 tablet, By Mouth, Daily, # 30 tablet, 5 Refills, Maintenance, 02/16/21 14:03:00 EDT, [id number], 164, cm, 10/14/20 10:13:00 EST, Height, 112, kg, 10/14/20 10:13:00 EST, Dry Weight Start Date: 02/16/21 Status: Ordereddocusate sodium 100 mg oral capsule 1 capsule, By Mouth, 2 times a day, # 60 capsule, 5 Refills, Maintenance, 01/12/21 20:05:00 EDT, [id number], 164, cm, 10/14/20 10:13:00 EST, Height, 112, kg, 10/14/20 10:13:00 EST, Dry Weight Start Date: 01/12/21 Status: OrderedEstradiol Patch 0.1 mg/24 hours twice weekly transdermal film, extended release See Instructions, APPLY 1 PATCH TOPICALLY EVERY TUESDAY & TUESDAY, # 8 patch, 12 Refills, 03/13/21 13:04:00 EDT, [facility]/pharmacy #[id number], 28, APPLY 1 PATCH TOPICALLY EVERY TUESDAY & TUESDAY, 164, cm, 03/13/21 9:51:00 EDT, Height, 112, kg, 10/14/20 10:13:00... Start Date: 03/13/21 Status: Orderedferrous sulfate 325 mg oral enteric coated tablet 325 mg, 1, tablet, By Mouth, Daily, # 90 tablet, Refills 1, Tot. Refills 1, Maintenance, 10/31/20 16:01:00 EST, Route to Pharmacy Electronically, [facility]/pharmacy #[id number], 164, cm, 10/14/20 10:13:00 EST, Height, 112, kg, 10/14/20 10:13:00 EST, Dry Weight Start Date: 10/31/20 Status: Orderedfluticasone 50 mcg/inh nasal spray See Instructions, USE 1 SPRAY IN EACH NOSTRIL TWICE A DAY, # 16 mL, 5 Refills, Maintenance, [facility] [id number], 30, USE 1 SPRAY IN EACH NOSTRIL TWICE A DAY, 164, cm, 10/14/20 10:13:00 EST, Height, 112, kg, 10/14/20 10:13:00 EST, Dry Weight Start Date: 03/06/21 Status: Orderedlithium 300 mg oral tablet 1 tablet = 300 mg, By Mouth, Daily in AM, # 30 tablet, 0 Refills, Maintenance, 01/01/20 16:16:00 EDT, Tablet, [facility]/pharmacy #[id number], 163, cm, 01/01/20 14:39:00 EDT, Height, 86.5, kg, 12/19/19 19:14:00 EDT, Dry Weight Start Date: 01/01/20 Stop Date: 01/29/20 Status: Orderedlithium 600 mg oral capsule 1 capsule = 600 mg, By Mouth, Daily at bedtime, # 30 capsule, 0 Refills, Maintenance, 01/01/20 16:16:00 EDT, Capsule, [facility]/pharmacy #[id number], 163, cm, 01/01/20 14:39:00 EDT, Height, 86.5, kg, 12/19/19 19:14:00 EDT, Dry Weight Start Date: 01/01/20 Stop Date: 03/01/20 Status: OrderedmedroxyPROGESTERone 150 mg/mL intramuscular suspension 1 mL, Intramuscular, Every 3 months, # 1 mL, 3 Refills, Soft Stop, 03/13/21 13:05:00 EDT, [facility]/pharmacy #[id number], 164, cm, 03/13/21 9:51:00 EDT, Height, 112, kg, 10/14/20 10:13:00 EST, Dry Weight Start Date: 03/13/21 Status: OrderedMiraLax oral powder for reconstitution = 17 Gm, By Mouth, Daily, dissolve in water before taking, # 255 Gm, 0 Refills, Maintenance, 07/11/20 15:38:00 EDT, REC Powder, [facility]/pharmacy #[id number], 17 Gm By Mouth Daily,Instr:dissolve in water before taking, 163, cm, 05/28/20 11:24:00 EDT, Height, 102... Start Date: 07/11/20 Status: Orderedomeprazole 20 mg oral enteric coated capsule 1 capsule = 20 mg, By Mouth, Daily, # 90 capsule, 0 Refills, Maintenance, 02/19/21 15:58:00 EDT, EC Capsule, [facility]/pharmacy #[id number], 164, cm, 10/14/20 10:13:00 EST, Height, 112, kg, 10/14/20 10:13:00 EST, Dry Weight Start Date: 02/19/21 Stop Date: 05/20/21 Status: Orderedperphenazine 16 mg oral tablet 16 mg, 1, tablet, By Mouth, 2 times a day, # 60 tablet, Refills 0, Tot. Refills 0, Maintenance, 01/01/20 16:18:00 EDT, [id number], cm, 01/01/20 14:39:00 EDT, Height, 86.5, kg, 12/19/19 19:14:00 EDT, Dry W... Start Date: 01/01/20 Status: Orderedperphenazine 8 mg oral tablet 8 mg, 1, tablet, By Mouth, 2 times a day, PRN, Indicated for severe agitation/psychosis and to be taken 8 hours apart, # 60 tablet, Refills 0, Tot. Refills 0, Maintenance, Psychosis, 01/02/20 4:30:00 EDT, Route to Pharmacy Electronically, [facility]/pharmacy... Start Date: 01/02/20 Status: OrderedSenna 8.6 mg oral tablet 1, tablet, By Mouth, Daily at bedtime, PRN, # 60 tablet, Refills 1, Tot. Refills 0, Acute, NEEDEDFOR CONSTIPATION, 02/19/21 17:23:00 EDT, Route to Pharmacy Electronically, [id number], 164, cm,10/14/20 10:13:00 EST, Height, 112, kg, 10/14/20... Start Date: 02/19/21 Status: Orderedsimethicone 125 mg oral capsule See Instructions, TAKE 1 CAPSULE BY MOUTH THREE TIMES A DAY AFTER MEALS AND AT BEDTIME NEEDED, # 48 capsule, 11 Refills, Maintenance, 10/21/20 9:08:00 EST, [facility]/pharmacy #[id number], 164, cm, 10/14/20 10:13:00 EST, [...]
--- OUTSIDE RECORDS SUMMARY | 2022-06-29 21:23 | XMS_ITS | Continuity of Care Document ---
:1990 Author Organization [facility] Address [address] [place] [id number]- Care Team Providers Name Role Phone Fatoumata Stokes DO Primary Care Physician Encounter [facility] Date(s): 04/08/20 - 04/08/[address] [address]- [facility] Encounter Diagnosis Pseudocyesis (Final) - 04/08/20 Head banging (Final) - 04/08/20 Discharge Disposition: A-D/C Home Attending Physician: Yajaira Guillermo MD Admitting Physician: Yajaira Guillermo MD Referring Physician: Not on Staff, Referring [...] 11/22/19 13:30:00 EST, Route to Pharmacy Electronically, [facility]/pharmacy #[id number], 159, cm, 11/19/19 8:17:00 EST, Height, 89.7, kg, 11/14/19 9... Start Date: 11/22/19 Status: OrderedAquaphor Healing topical ointment See Instructions, APPLY TO NIPPLE DAILY NEEDED FOR DISCOMFORT, # 50 Gm, 0 Refills, Maintenance, [facility] STORE [id number], 7, APPLY TO NIPPLE DAILY NEEDED FOR DISCOMFORT, 159, cm, 12/10/19 11:02:00 EDT, Height, 86.7, kg, 12/10/19 11:02:00 EDT, Dry Weight Start Date: 12/10/19 Status: Orderedbenztropine 1 mg oral tablet 1 mg, 1, tablet, By Mouth, 2 times a day, # 60 tablet, Refills 0, Tot. Refills 0, Maintenance, 01/01/20 16:15:00 EDT, [id number] 163, cm, 01/01/20 14:39:00 EDT, Height, 86.5, kg, 12/19/19 19:14:00 EDT, Dry We... Start Date: 01/01/20 Stop Date: 01/31/20 Status: OrderedDepo-Provera Contraceptive 150 mg/mL intramuscular suspension 1 mL = 150 mg, Intramuscular, Every 3 months, # 1 mL, 3 Refills, Maintenance, 12/10/19 11:23:00 EDT,Suspension, [facility], 159, cm, 12/10/19 11:02:00 EDT, Height, 86.7, kg, 12/10/19 11:02:00 EDT, Dry Weight Start Date: 12/10/19 Status: Ordereddocusate sodium 100 mg oral capsule 100 mg, 1, capsule, By Mouth, 2 times a day, # 60 capsule, Refills 11, Tot. Refills 11, Maintenance,01/08/20 11:07:00 EDT, [id number], 163, cm, 01/02/20 7:50:00 EDT, Height, 86.5, kg, 12/19/19 19:14:00 EDT, D... Start Date: 01/08/20 Stop Date: 01/02/21 Status: Orderedestradiol 0.1 mg/24 hours twice weekly transdermal film, extended release 1 patch, Topically, Every Tuesday and , # 8 patch, 6 Refills, Maintenance, 12/10/19 11:19:00 EDT, [facility]/pharmacy #[id number], 159, cm, 12/10/19 11:02:00 EDT, Height, 86.7, kg, 12/10/19 11:02:00 EDT, DryWeight Start Date: 12/10/19 Status: OrderedEucerin Plus topical lotion 1 application, Topically, 2 times a day, PRN for dry skin, May apply to affected area every 6 hours as needed, up to 2 times/day, # 180 mL, 11 Refills, Maintenance, 08/06/19 12:15:04 EST, Lotion, [facility]/pharmacy #[id number] Start Date: 08/06/19 Status: Orderedferrous sulfate 325 mg oral enteric coated tablet 325 mg, 1, tablet, By Mouth, Daily, # 30 tablet, Refills 11, Tot. Refills 11, Maintenance, 01/08/20 11:07:00 EDT, Route to Pharmacy Electronically, [facility]/pharmacy #[id number], 163, cm, 01/02/20 7:50:00 EDT, Height, 86.5, kg, 12/19/19 19:14:00 EDT, Dry Weight Start Date: 01/08/20 Status: OrderedFlonase 50 mcg/inh nasal spray 1 sprays, Nares, Both, 2 times a day, # 16 Gm, 3 Refills, Maintenance, 04/03/20 15:37:00 EDT, [place],[id number], 1 sprays Nares, Both 2 times a day, 163, cm, 04/03/20 14:59:00 EDT, Height, 88.9, kg, 04/03/20 14:59:00 EDT, Dry Weight Start Date: 04/03/20 Status: Orderedlithium 300 mg oral tablet 1 tablet = 300 mg, By Mouth, Daily in AM, # 30 tablet, 0 Refills, Maintenance, 01/01/20 16:16:00 EDT, Tablet, [facility]/pharmacy #[id number], 163, cm, 01/01/20 14:39:00 EDT, Height, 86.5, kg, 12/19/19 19:14:00 EDT, Dry Weight Start Date: 01/01/20 Stop Date: 01/29/20 Status: Orderedlithium 600 mg oral capsule 1 capsule = 600 mg, By Mouth, Daily at bedtime, # 30 capsule, 0 Refills, Maintenance, 01/01/20 16:16:00 EDT, Capsule, [facility]/pharmacy #[id number], 163, cm, 01/01/20 [...] Refills, Maintenance, 01/08/20 11:07:00 EDT, EC Capsule, [facility]/pharmacy #[id number], 163, cm, 01/02/20 7:50:00 EDT, Height, 86.5, kg, 12/19/19 19:14:00 EDT, Dry Weight Start Date: 01/08/20 Status: Orderedperphenazine 16 mg oral tablet 16 mg, 1, tablet, By Mouth, 2 times a day, # 60 tablet, Refills 0, Tot. Refills 0, Maintenance, 01/01/20 16:18:00 EDT, Route to Pharmacy Electronically, [facility]/pharmacy #[id number], 163, cm, 01/01/20 [...] 01/02/20 4:30:00 EDT, Route to Pharmacy Electronically, [facility]/pharmacy... Start Date: 01/02/20 Status: Orderedsimethicone 125 mg oral capsule 1 capsule = 125 mg, By Mouth, 3 times a day after meals and bedtime, PRN Other, prn gas, # 48 capsule, 2 Refills, Maintenance, 04/03/20 15:26:00 EDT, Capsule, [facility]/pharmacy #[id number], 163, cm, 04/03/20 14:59:00 EDT, Height, 88.9, kg, 04/03/20 14:59:00 EDT,... Start Date: 04/03/20 Status: OrderedTums 500 mg oral tablet, chewable 1,000 mg, 2, tablet, Chew, Every 6 hours, PRN, # 120 tablet, Refills 11, Tot. Refills 11, Maintenance, for indigestion, 08/06/19 12:12:32 EST, [facility], [id number] Start Date: 08/06/19 Stop Date: 07/01/20 Status: OrderedZyrTEC 10 mg oral tablet 1 tablet = 10 mg, By Mouth, Daily, # 30 tablet, 3 Refills, Maintenance, 04/03/20 15:37:00 EDT, Tablet, [facility]/pharmacy #[id number], 163, cm, 04/03/20 [...] Saturation [94-100 %] 100 % 100 % (04/08/20 5:36 PM) (04/08/20 4:35 PM) Pulse Rate [55-90 bpm] 79 bpm 89 bpm (04/08/20 5:36 PM) (04/08/20 4:35 PM) Blood Pressure [90-138/55-84 mm Hg] 113/72 mm Hg 138/ 68 mm Hg (04/08/20 5:36 PM) (04/08/20 4:35 PM) Respiratory Rate [16-30 br/min] 17 br/min 18 br/mi n (04/08/20 5:36 PM) (04/08/20 4:35 PM) Temperature [96.8-100.4 DegF] 98.4 DegF 98.0 DegF (04/08/20 5:36 PM) (04/08/20 4:35 PM) Mode of Delivery (Oxygen) Room air Room air (04/08/20 5:36 PM) (04/08/20 4:35 PM) Blood pressure sites Arm, left (04/08/20 5:36 PM) Temperature Route Oral Oral (04/08/20 5:36 PM) (04/08/20 4:35 PM) Social History Social History Type Response Smoking Status Light tobacco smoker entered on: 09/26/14 Sex
--- OUTSIDE RECORDS SUMMARY | 2022-06-29 21:23 | XMS_ITS | Continuity of Care Document ---
:1990 Author Organization [facility] Address [address] [place] [address]- Care Team Providers Name Role Phone Fatoumata Stokes DO Primary Care Physician Encounter [facility] Date(s): 07/27/21 - 08/26/21 [facility] [address] [place], [place] [address] Allergies, Adverse Reactions, Alerts Substance [...] 05/28/21 7:42:00 EDT, Route to Pharmacy Electronically, [facility]/pharmacy #[id number], 164, cm, 04/07/21 15:35:00 EDT, Height, 112, kg, 10/14/20 10... Start Date: 05/28/21 Status: OrderedBenefiber oral powder for reconstitution 5 mL, By Mouth, 2 times a day, PRN as needed for constipation, dissolve in 4 to 8 oz of beverage or soft food- hot or cold, # 155 Gm, 11 Refills, Maintenance, 03/05/21 15:58:00 EDT, REC Powder, [facility]/pharmacy #[id number], Partial fill upon patient request if... Start Date: 03/05/21 Status: Orderedbenztropine 1 mg oral tablet 1 mg, 1, tablet, By Mouth, 2 times a day, # 60 tablet, Refills 0, Tot. Refills 0, Maintenance, 01/01/20 16:15:00 EDT, Route to Pharmacy Electronically, [facility]/pharmacy #[id number], 163, cm, 01/01/20 14:39:00 EDT, Height, 86.5, kg, 12/19/19 19:14:00 EDT, Dry We... Start Date: 01/01/20 Stop Date: 01/31/20 Status: Orderedcetirizine 10 mg oral tablet 1 tablet, By Mouth, Daily, # 30 tablet, 2 Refills, [facility] STORE [id number], 164, cm, 05/28/21 13:07:00 EDT, Height, 112, kg, 10/14/20 10:13:00 EST, Dry Weight Start Date: 07/08/21 Status: Ordereddocusate sodium 100 mg oral capsule 1 capsule, By Mouth, 2 times a day, # 60 capsule, 5 Refills, Maintenance, 07/27/21 14:02:00 EDT, [facility]/pharmacy #[id number], 164, cm, 05/28/21 13:07:00 EDT, Height, 112, kg, 10/14/20 10:13:00 EST, Dry Weight Start Date: 07/27/21 Status: OrderedEstradiol Patch 0.1 mg/24 hours twice weekly transdermal film, extended release See Instructions, APPLY 1 PATCH TOPICALLY EVERY TUESDAY & TUESDAY, # 8 patch, 12 Refills, 03/13/21 13:04:00 EDT, [facility]/pharmacy #[id number], 28, APPLY 1 PATCH TOPICALLY EVERY TUESDAY & TUESDAY, 164, cm, 03/13/21 9:51:00 EDT, Height, 112, kg, 10/14/20 10:13:00... Start Date: 03/13/21 Status: Orderedferrous sulfate 325 mg oral enteric coated tablet 1, tablet, By Mouth, Daily, # 90 tablet, Refills 1, Route to Pharmacy Electronically, [facility] STORE [id number], 164, cm, 05/28/21 13:07:00 EDT, Height, 112, kg, 10/14/20 10:13:00 EST, Dry Weight Start Date: 07/08/21 Status: Orderedfluticasone 50 mcg/inh nasal spray See Instructions, USE 1 SPRAY IN EACH NOSTRIL TWICE A DAY, # 16 mL, 5 Refills, Maintenance, [facility] STORE [id number], 30, USE 1 SPRAY IN EACH NOSTRIL TWICE A DAY, 164, cm, 10/14/20 10:13:00 EST, Height, 112, kg, 10/14/20 10:13:00 EST, Dry Weight Start Date: 03/06/21 Status: Orderedlithium 300 mg oral tablet 1 tablet = 300 mg, By Mouth, Daily in AM, # 30 tablet, 0 Refills, Maintenance, 01/01/20 16:16:00 EDT, Tablet, [facility]/pharmacy #[id number], 163, cm, 01/01/20 14:39:00 EDT, Height, 86.5, kg, 12/19/19 19:14:00 EDT, Dry Weight Start Date: 01/01/20 Stop Date: 01/29/20 Status: Orderedlithium 600 mg oral capsule 1 capsule = 600 mg, By Mouth, Daily at bedtime, # 30 capsule, 0 Refills, Maintenance, 01/01/20 16:16:00 EDT, Capsule, [facility]/pharmacy #[id number], 163, cm, 01/01/20 14:39:00 EDT, Height, 86.5, kg, 12/19/19 19:14:00 EDT, Dry Weight Start Date: 01/01/20 Stop Date: 03/01/20 Status: OrderedmedroxyPROGESTERone 150 mg/mL intramuscular suspension 1 mL, Intramuscular, Every 3 months, # 1 mL, 3 Refills, Soft Stop, 03/13/21 13:05:00 EDT, [facility]/pharmacy #[id number], 164, cm, 03/13/21 9:51:00 EDT, Height, 112, kg, 10/14/20 10:13:00 EST, Dry Weight Start Date: 03/13/21 Status: OrderedMiraLax oral powder for reconstitution = 17 Gm, By Mouth, Daily, dissolve in water before taking, # 255 Gm, 0 Refills, Maintenance, 07/11/20 15:38:00 EDT, REC Powder, [facility]/pharmacy #[id number], 17 Gm By Mouth Daily,Instr:dissolve in water before taking, 163, cm, 05/28/20 11:24:00 EDT, Height, 102... Start Date: 07/11/20 Status: Orderedomeprazole 20 mg oral enteric coated capsule 1 capsule, By Mouth, Daily, # 90 capsule, 0 Refills, [facility] ST[facility] [id number], 164, cm, 05/28/21 13:07:00 EDT, Height, 112, kg, 10/14/20 10:13:00 EST, Dry Weight Start Date: 08/21/21 Status: Orderedperphenazine 16 mg oral tablet 16 mg, 1, tablet, By Mouth, 2 times a day, # 60 tablet, Refills 0, Tot. Refills 0, Maintenance, 01/01/20 16:18:00 EDT, Route to Pharmacy Electronically, [facility]/pharmacy #[id number], 163, cm, 01/01/20 14:39:00 EDT, Height, 86.5, kg, 12/19/19 19:14:00 EDT, Dry W... Start Date: 01/01/20 Status: Orderedperphenazine 8 mg oral tablet 8 mg, 1, tablet, By Mouth, 2 times a day, PRN, Indicated for severe agitation/psychosis and to be taken 8 hours apart, # 60 tablet, Refills 0, Tot. Refills 0, Maintenance, Psychosis, 01/02/20 4:30:00 EDT, Route to Pharmacy Electronically, [facility]/pharmacy... Start Date: 01/02/20 Status: OrderedSenna 8.6 mg oral tablet 1, tablet, By Mouth, Daily at bedtime, PRN, # 60 tablet, Refills 1, Tot. Refills 0, Acute, NEEDEDFOR CONSTIPATION, 02/19/21 17:23:00 EDT, Route to Pharmacy Electronically, [facility] ST[facility] [id number], 164, cm,10/14/20 10:13:00 EST, Height, 112, kg, 10/14/20... Start Date: 02/19/21 Status: Orderedsimethicone 125 mg oral capsule See Instructions, TAKE 1 CAPSULE BY MOUTH THREE TIMES A DAY AFTER MEALS AND AT BEDTIME NEEDED, # 48 capsule, 11 Refills, [facility] ST[facility] [id number], 164, cm, 04/07/21 15:35:00 EDT, Height, 112, [...]
--- OUTSIDE RECORDS SUMMARY | 2022-06-29 21:23 | XMS_ITS | Continuity of Care Document ---
:1990 Author Organization [facility] Address [address] [place] [address]- Care Team Providers Name Role Phone Fatoumata Stokes DO Primary Care Physician Encounter [facility] Date(s): 03/09/21 - 04/08/21 [facility] [address] [place], [place] [address] Allergies, Adverse Reactions, Alerts Substance [...] 11/22/19 13:30:00 EST, Route to Pharmacy Electronically, [facility]/pharmacy #[id number], 159, cm, 11/19/19 8:17:00 EST, Height, 89.7, kg, 11/14/19 9... Start Date: 11/22/19 Status: OrderedBenefiber oral powder for reconstitution 5 mL, By Mouth, 2 times a day, PRN as needed for constipation, dissolve in 4 to 8 oz of beverage or soft food- hot or cold, # 155 Gm, 11 Refills, Maintenance, 03/05/21 15:58:00 EDT, REC Powder, [facility]/pharmacy #[id number], Partial fill upon patient request if... Start Date: 03/05/21 Status: Orderedbenztropine 1 mg oral tablet 1 mg, 1, tablet, By Mouth, 2 times a day, # 60 tablet, Refills 0, Tot. Refills 0, Maintenance, 01/01/20 16:15:00 EDT, Route to Pharmacy Electronically, [facility]/pharmacy #[id number], 163, cm, 01/01/20 14:39:00 EDT, Height, 86.5, kg, 12/19/19 19:14:00 EDT, Dry We... Start Date: 01/01/20 Stop Date: 01/31/20 Status: Orderedcetirizine 10 mg oral tablet 1 tablet, By Mouth, Daily, # 30 tablet, 5 Refills, Maintenance, 02/16/21 14:03:00 EDT, [id number], 164, cm, 10/14/20 10:13:00 EST, Height, 112, kg, 10/14/20 10:13:00 EST, Dry Weight Start Date: 02/16/21 Status: Ordereddocusate sodium 100 mg oral capsule 1 capsule, By Mouth, 2 times a day, # 60 capsule, 5 Refills, Maintenance, 01/12/21 20:05:00 EDT[id number], cm, 10/14/20 10:13:00 EST, Height, 112, kg, 10/14/20 10:13:00 EST, Dry Weight Start Date: 01/12/21 Status: OrderedEstradiol Patch 0.1 mg/24 hours twice weekly transdermal film, extended release See Instructions, APPLY 1 PATCH TOPICALLY EVERY TUESDAY & TUESDAY, # 8 patch, 12 Refills, 03/13/21 13:04:00 EDT, [facility]/pharmacy #[id number], 28, APPLY 1 PATCH TOPICALLY EVERY TUESDAY & TUESDAY, 164, cm, 03/13/21 9:51:00 EDT, Height, 112, kg, 10/14/20 10:13:00... Start Date: 03/13/21 Status: Orderedferrous sulfate 325 mg oral enteric coated tablet 325 mg, 1, tablet, By Mouth, Daily, # 90 tablet, Refills 1, Tot. Refills 1, Maintenance, 10/31/20 16:01:00 EST, Route to Pharmacy Electronically, [facility]/pharmacy #[id number], 164, cm, 10/14/20 10:13:00 EST, Height, 112, kg, 10/14/20 10:13:00 EST, Dry Weight Start Date: 10/31/20 Status: Orderedfluticasone 50 mcg/inh nasal spray See Instructions, USE 1 SPRAY IN EACH NOSTRIL TWICE A DAY, # 16 mL, 5 Refills, Maintenance, [facility] STORE [id number], 30, USE 1 SPRAY IN EACH NOSTRIL TWICE A DAY, 164, cm, 10/14/20 10:13:00 EST, Height, 112, kg, 10/14/20 10:13:00 EST, Dry Weight Start Date: 03/06/21 Status: Orderedlithium 300 mg oral tablet 1 tablet = 300 mg, By Mouth, Daily in AM, # 30 tablet, 0 Refills, Maintenance, 01/01/20 16:16:00 EDT, Tablet, [facility]/pharmacy #[id number], 163, cm, 01/01/20 14:39:00 EDT, Height, 86.5, kg, 12/19/19 19:14:00 EDT, Dry Weight Start Date: 01/01/20 Stop Date: 01/29/20 Status: Orderedlithium 600 mg oral capsule 1 capsule = 600 mg, By Mouth, Daily at bedtime, # 30 capsule, 0 Refills, Maintenance, 01/01/20 16:16:00 EDT, Capsule, [facility]/pharmacy #[id number], 163, cm, 01/01/20 14:39:00 EDT, Height, 86.5, kg, 12/19/19 19:14:00 EDT, Dry Weight Start Date: 01/01/20 Stop Date: 03/01/20 Status: OrderedLotrisone 0.05%-1% cream 1 application, Topically, 2 times a day, for 14 days, # 45 Gm, 0 Refills, Acute 04/22/21 11:49:00 EDT, 04/08/21 11:49:00 EDT, Cream, [facility]/pharmacy #[id number], Partial fill upon patient request if the prescription is for a schedule II opioid drug., 1 applica... Start Date: 04/08/21 Stop Date: 04/22/21 Status: OrderedmedroxyPROGESTERone 150 mg/mL intramuscular suspension 1 mL, Intramuscular, Every 3 months, # 1 mL, 3 Refills, Soft Stop, 03/13/21 13:05:00 EDT, [facility]/pharmacy #[id number], 164, cm, 03/13/21 9:51:00 EDT, Height, 112, kg, 10/14/20 10:13:00 EST, Dry Weight Start Date: 03/13/21 Status: OrderedMiraLax oral powder for reconstitution = 17 Gm, By Mouth, Daily, dissolve in water before taking, # 255 Gm, 0 Refills, Maintenance, 07/11/20 15:38:00 EDT, REC Powder, [facility]/pharmacy #[id number], 17 Gm By Mouth Daily,Instr:dissolve in water before taking, 163, cm, 05/28/20 11:24:00 EDT, Height, 102... Start Date: 07/11/20 Status: Orderedomeprazole 20 mg oral enteric coated capsule 1 capsule = 20 mg, By Mouth, Daily, # 90 capsule, 0 Refills, Maintenance, 02/19/21 15:58:00 EDT, EC Capsule, [facility]/pharmacy #[id number], 164, cm, 10/14/20 10:13:00 EST, Height, 112, kg, 10/14/20 10:13:00 EST, Dry Weight Start Date: 02/19/21 Stop Date: 05/20/21 Status: Orderedperphenazine 16 mg oral tablet 16 mg, 1, tablet, By Mouth, 2 times a day, # 60 tablet, Refills 0, Tot. Refills 0, Maintenance, 01/01/20 16:18:00 EDT, [id number], cm, 01/01/20 14:39:00 EDT, Height, 86.5, kg, 12/19/19 19:14:00 EDT, Dry W... Start Date: 01/01/20 Status: Orderedperphenazine 8 mg oral tablet 8 mg, 1, tablet, By Mouth, 2 times a day, PRN, Indicated for severe agitation/psychosis and to be taken 8 hours apart, # 60 tablet, Refills 0, Tot. Refills 0, Maintenance, Psychosis, 01/02/20 4:30:00 EDT, Route to Pharmacy Electronically, [facility]/pharmacy... Start Date: 01/02/20 Status: OrderedSenna 8.6 mg oral tablet 1, tablet, By Mouth, Daily at bedtime, PRN, # 60 tablet, Refills 1, Tot. Refills 0, Acute, NEEDEDFOR CONSTIPATION, 02/19/21 17:23:00 EDT, Route to Pharmacy Electronically, [facility] STORE [id number], 164, cm,10/14/20 10:13:00 EST, Height, 112, kg, 10/14/20... Start Date: 02/19/21 Status: Orderedsimethicone 125 mg oral capsule See Instructions, TAKE 1 CAPSULE BY MOUTH THREE TIMES A DAY AFTER MEALS AND AT BEDTIME NEEDED, # 48 capsule, 11 Refills, Maintenance, 10/21/20 9:08:00 EST, [facility]/pharmacy #[id number], 164, cm, 10/14/20 10:13:00 [...]
--- OUTSIDE RECORDS SUMMARY | 2022-06-29 21:23 | XMS_ITS | Continuity of Care Document ---
:1990 Author Organization [facility] [place] Address [address] [place] [id number]- Care Team Providers Name Role Phone Fatoumata Stokes DO Primary Care Physician [facility]counter [facility] Date(s): 10/03/20 - 10/04/[address] [address]- Encounter Diagnosis Schizoaffective disorder (Final) - 10/04/20 Discharge Disposition: A-D/C Home Attending Physician: Tian Reina MD Admitting Physician: Tian Reina MD Referring Physician: Not on Staff, Referring [...] 11/22/19 13:30:00 EST, Route to Pharmacy Electronically, [facility]/pharmacy #[id number], 159, cm, 11/19/19 8:17:00 EST, Height, 89.7, kg, 11/14/19 9... Start Date: 11/22/19 Status: OrderedAquaphor Healing topical ointment See Instructions, APPLY TO NIPPLE DAILY NEEDED FOR DISCOMFORT, # 50 Gm, 0 Refills, Maintenance, [id number], 7, APPLY TO NIPPLE DAILY NEEDED FOR DISCOMFORT, 159, cm, 12/10/19 11:02:00 EDT, Height, 86.7, kg, 12/10/19 11:02:00 EDT, Dry Weight Start Date: 12/10/19 Status: Orderedbenztropine 1 mg oral tablet 1 mg, 1, tablet, By Mouth, 2 times a day, # 60 tablet, Refills 0, Tot. Refills 0, Maintenance, 01/01/20 16:15:00 EDT, Route to Pharmacy Electronically, [facility]/pharmacy #[id number], 163, cm, 01/01/20 14:39:00 EDT, Height, 86.5, kg, 12/19/19 19:14:00 EDT, Dry We... Start Date: 01/01/20 Stop Date: 01/31/20 Status: OrderedDepo-Provera Contraceptive 150 mg/mL intramuscular suspension 1 mL = 150 mg, Intramuscular, Every 3 months, # 1 mL, 3 Refills, Maintenance, 08/26/20 9:54:00 EST, Suspension, [facility], 163, cm, 05/28/20 11:24:00 EDT, Height, 100, kg, 08/04/20 11:40:00 EST, Dry Weight Start Date: 08/26/20 Status: Ordereddocusate sodium 100 mg oral capsule 100 mg, 1, capsule, By Mouth, 2 times a day, # 60 capsule, Refills 11, Tot. Refills 11, Maintenance,01/08/20 11:07:00 EDT, Route to Pharmacy Electronically, [facility]/pharmacy #[id number], 163, cm, 01/02/20 7:50:00 EDT, Height, 86.5, kg, 12/19/19 19:14:00 EDT, D... Start Date: 01/08/20 Stop Date: 01/02/21 Status: Orderedestradiol 0.1 mg/24 hours twice weekly transdermal film, extended release 1 patch, Topically, Every Tuesday and , # 8 patch, 6 Refills, Maintenance, 05/28/20 11:01:00 EDT, [facility]/pharmacy #[id number], 163, cm, 04/03/20 14:59:00 EDT, Height, 88.9, kg, 04/03/20 14:59:00 EDT, DryWeight Start Date: 05/28/20 Status: OrderedEucerin Plus topical lotion 1 application, Topically, 2 times a day, PRN for dry skin, May apply to affected area every 6 hours as needed, up to 2 times/day, # 180 mL, 11 Refills, Maintenance, 08/06/19 12:15:04 EST, Lotion, [facility]/pharmacy #[id number] Start Date: 08/06/19 Status: Orderedferrous sulfate 325 mg oral enteric coated tablet 325 mg, 1, tablet, By Mouth, Daily, # 30 tablet, Refills 11, Tot. Refills 11, Maintenance, 01/08/20 11:07:00 EDT, Route to Pharmacy Electronically, [facility]/pharmacy #[id number], 163, cm, 01/02/20 7:50:00 EDT, Height, 86.5, kg, 12/19/19 19:14:00 EDT, Dry Weight Start Date: 01/08/20 Status: OrderedFlonase 50 mcg/inh nasal spray 1 sprays, Nares, Both, 2 times a day, # 16 Gm, 5 Refills, Maintenance, 07/04/20 9:01:00 EDT, [place], [facility]/pharmacy #[id number], 1 sprays Nares, Both 2 times a day, 163, cm, 05/28/20 11:24:00 EDT, Height, 102.3, kg, 06/22/20 23:55:00 EDT, Dry Weight Start Date: 07/04/20 Status: Orderedlithium 300 mg oral tablet 1 tablet = 300 mg, By Mouth, Daily in AM, # 30 tablet, 0 Refills, Maintenance, 01/01/20 16:16:00 EDT, Tablet, [facility]/pharmacy #[id number], 163, cm, 01/01/20 14:39:00 EDT, Height, 86.5, kg, 12/19/19 19:14:00 EDT, Dry Weight Start Date: 01/01/20 Stop Date: 01/29/20 Status: Orderedlithium 600 mg oral capsule 1 capsule = 600 mg, By Mouth, Daily at bedtime, # 30 capsule, 0 Refills, Maintenance, 01/01/20 16:16:00 EDT, Capsule, [facility]/pharmacy #[id number], 163, cm, 01/01/20 14:39:00 EDT, Height, [...] Refills, Maintenance, 07/11/20 15:38:00 EDT, REC Powder, [facility]/pharmacy #[id number], 17 Gm By Mouth Daily,Instr:dissolve in water before taking, 163, cm, 05/28/20 11:24:00 EDT, Height, 102... Start Date: 07/11/20 Status: Orderedomeprazole 20 mg oral enteric coated capsule 1 capsule = 20 mg, By Mouth, Daily, # 30 capsule, 5 Refills, Maintenance, 07/07/20 11:44:00 EDT, EC Capsule, [facility]/pharmacy #[id number], 163, cm, 05/28/20 11:24:00 EDT, Height, 102.3, kg, 06/22/20 23:55:00 EDT, Dry Weight Start Date: 07/07/20 Status: Orderedperphenazine 16 mg oral tablet 16 mg, 1, tablet, By Mouth, 2 times a day, # 60 tablet, Refills 0, Tot. Refills 0, Maintenance, 01/01/20 16:18:00 EDT, Route to Pharmacy Electronically, [facility]/pharmacy #[id number], 163, cm, 01/01/20 14:39:00 EDT, Height, 86.5, kg, 12/19/19 19:14:00 EDT, Dry W... Start Date: 01/01/20 Status: Orderedperphenazine 8 mg oral tablet 8 mg, 1, tablet, By Mouth, 2 times a day, PRN, Indicated for severe agitation/psychosis and to be taken 8 hours apart, # 60 tablet, Refills 0, Tot. Refills 0, Maintenance, Psychosis, 01/02/20 4:30:00 EDT, Route to Pharmacy Electronically, [facility]/pharmacy... Start Date: 01/02/20 Status: Orderedsimethicone 125 mg oral capsule See Instructions, TAKE 1 CAPSULE BY MOUTH THREE TIMES A DAY AFTER MEALS AND AT BEDTIME NEEDED, # 48 capsule, 2 Refills, Maintenance, 08/13/20 17:29:00 EST, [facility]/pharmacy #[id number], 163, cm, 05/28/20 11:24:00 EDT, Height, 100, kg, 08/04/20 11:40:00 EST,... Start Date: 08/13/20 Status: OrderedTums 500 mg oral tablet, chewable 1,000 mg, 2, tablet, Chew, Every 6 hours, PRN, # 120 tablet, Refills 11, Tot. Refills 11, Maintenance, for indigestion, 08/06/19 12:12:32 EST, Route to Pharmacy Electronically, [facility]/pharmacy #[id number] Start Date: 08/06/19 Stop Date: 07/01/20 Status: OrderedZyrTEC 10 mg oral tablet 1 tablet = 10 mg, By Mouth, Daily, # 30 tablet, 5 Refills, Maintenance, 07/22/20 15:24:00 EDT, Tablet, [facility]/pharmacy #[id number], 163, cm, 05/28/20 11:24:00 EDT, Height, [...] 2 3 Range]: Oxygen Saturation [94-100 %] 100 % 100 % 99 % (10/04/20 2:47 AM) (10/03/20 6:47 PM) (10/03/20 1:53 P M) Pulse Rate [55-90 bpm] 89 bpm 103 bpm 88 bpm (10/04/20 2:47 AM) *H* (10/03/20 1:53 PM ) (10/03/20 6:47 PM) Blood Pressure [90-138/55-84 mm 103/63 mm Hg 131/87 mm Hg 129/89 mm Hg Hg] (10/04/20 2:47 AM) (10/03/20 6:47 PM) (10/03/20 1:53 P M) Respiratory Rate [16-30 br/min] 16 br/min 16 br/min 16 br/min (10/04/20 2:47 AM) (10/03/20 6:47 PM) (10/03/20 1:53 P M) Temperature [96.8-100.4 DegF] 97.3 DegF 98.8 DegF 99 .1 DegF (10/04/20 2:47 AM) (10/03/20 6:47 PM) (10/03/20 1:53 P M) Mode of Delivery (Oxygen) Room air Room air Room a ir (10/04/20 2:47 AM) (10/03/20 6:47 PM) (10/03/20 1:53 P M) Blood pressure sites Arm, left Arm, left (10/04/20 2:47 AM) (10/03/20 6:47 PM) Temperature Route Oral Oral Oral (10/04/20 2:47 AM) (10/03/20 6:47 PM) (10/03/20 1:53 P M) Social History Social History Type Response Tobacco Use: 4 or less cigarettes(le ss than 1/4 pack)/day in last 30 days. Sex Female
--- OUTSIDE RECORDS SUMMARY | 2022-06-29 21:23 | XMS_ITS | Continuity of Care Document ---
:1990 Author Organization [facility] Address [address] [place] [id number]- Care Team Providers Name Role Phone Fatoumata Stokes DO Primary Care Physician [facility]counter [facility] Date(s): 09/20/20 - 09/20/[address] [address]- Encounter Diagnosis Abdominal pain (Final) - 09/20/20 Discharge Disposition: A-D/C Home Attending Physician: Michele Kurtz DO Admitting Physician: Michele Kurtz DO Referring Physician: Not on Staff, Referring MD [...] 11/22/19 13:30:00 EST, Route to Pharmacy Electronically, [facility]/pharmacy #[id number], 159, cm, 11/19/19 8:17:00 EST, Height, 89.7, kg, 11/14/19 9... Start Date: 11/22/19 Status: OrderedAquaphor Healing topical ointment See Instructions, APPLY TO NIPPLE DAILY NEEDED FOR DISCOMFORT, # 50 Gm, 0 Refills, Maintenance, [id number], 7, APPLY TO NIPPLE DAILY NEEDED FOR DISCOMFORT, 159, cm, 12/10/19 11:02:00 EDT, Height, 86.7, kg, 12/10/19 11:02:00 EDT, Dry Weight Start Date: 12/10/19 Status: Orderedbenztropine 1 mg oral tablet 1 mg, 1, tablet, By Mouth, 2 times a day, # 60 tablet, Refills 0, Tot. Refills 0, Maintenance, 01/01/20 16:15:00 EDT, Route to Pharmacy Electronically, [facility]/pharmacy #[id number], 163, cm, 01/01/20 14:39:00 EDT, Height, 86.5, kg, 12/19/19 19:14:00 EDT, Dry We... Start Date: 01/01/20 Stop Date: 01/31/20 Status: OrderedDepo-Provera Contraceptive 150 mg/mL intramuscular suspension 1 mL = 150 mg, Intramuscular, Every 3 months, # 1 mL, 3 Refills, Maintenance, 08/26/20 9:54:00 EST, Suspension, [facility], 163, cm, 05/28/20 11:24:00 EDT, Height, 100, kg, 08/04/20 11:40:00 EST, Dry Weight Start Date: 08/26/20 Status: Ordereddocusate sodium 100 mg oral capsule 100 mg, 1, capsule, By Mouth, 2 times a day, # 60 capsule, Refills 11, Tot. Refills 11, Maintenance,01/08/20 11:07:00 EDT, Route to Pharmacy Electronically, [facility]/pharmacy #[id number], 163, cm, 01/02/20 7:50:00 EDT, Height, 86.5, kg, 12/19/19 19:14:00 EDT, D... Start Date: 01/08/20 Stop Date: 01/02/21 Status: Orderedestradiol 0.1 mg/24 hours twice weekly transdermal film, extended release 1 patch, Topically, Every Tuesday and , # 8 patch, 6 Refills, Maintenance, 05/28/20 11:01:00 EDT, [facility]/pharmacy #[id number], 163, cm, 04/03/20 14:59:00 EDT, Height, 88.9, kg, 04/03/20 14:59:00 EDT, DryWeight Start Date: 05/28/20 Status: OrderedEucerin Plus topical lotion 1 application, Topically, 2 times a day, PRN for dry skin, May apply to affected area every 6 hours as needed, up to 2 times/day, # 180 mL, 11 Refills, Maintenance, 08/06/19 12:15:04 EST, Lotion, [facility]/pharmacy #[id number] Start Date: 08/06/19 Status: Orderedferrous sulfate 325 mg oral enteric coated tablet 325 mg, 1, tablet, By Mouth, Daily, # 30 tablet, Refills 11, Tot. Refills 11, Maintenance, 01/08/20 11:07:00 EDT, Route to Pharmacy Electronically, [facility]/pharmacy #[id number], 163, cm, 01/02/20 7:50:00 EDT, Height, 86.5, kg, 12/19/19 19:14:00 EDT, Dry Weight Start Date: 01/08/20 Status: OrderedFlonase 50 mcg/inh nasal spray 1 sprays, Nares, Both, 2 times a day, # 16 Gm, 5 Refills, Maintenance, 07/04/20 9:01:00 EDT, [place], [facility]/pharmacy #[id number], 1 sprays Nares, Both 2 times a day, 163, cm, 05/28/20 11:24:00 EDT, Height, 102.3, kg, 06/22/20 23:55:00 EDT, Dry Weight Start Date: 07/04/20 Status: Orderedlithium 300 mg oral tablet 1 tablet = 300 mg, By Mouth, Daily in AM, # 30 tablet, 0 Refills, Maintenance, 01/01/20 16:16:00 EDT, Tablet, [facility]/pharmacy #[id number], 163, cm, 01/01/20 14:39:00 EDT, Height, 86.5, kg, 12/19/19 19:14:00 EDT, Dry Weight Start Date: 01/01/20 Stop Date: 01/29/20 Status: Orderedlithium 600 mg oral capsule 1 capsule = 600 mg, By Mouth, Daily at bedtime, # 30 capsule, 0 Refills, Maintenance, 01/01/20 16:16:00 EDT, Capsule, [facility]/pharmacy #[id number], 163, cm, 01/01/20 14:39:00 EDT, [...] Refills, Maintenance, 07/11/20 15:38:00 EDT, REC Powder, [facility]/pharmacy #[id number], 17 Gm By Mouth Daily,Instr:dissolve in water before taking, 163, cm, 05/28/20 11:24:00 EDT, Height, 102... Start Date: 07/11/20 Status: Orderedomeprazole 20 mg oral enteric coated capsule 1 capsule = 20 mg, By Mouth, Daily, # 30 capsule, 5 Refills, Maintenance, 07/07/20 11:44:00 EDT, EC Capsule, [facility]/pharmacy #[id number], 163, cm, 05/28/20 11:24:00 EDT, Height, 102.3, kg, 06/22/20 23:55:00 EDT, Dry Weight Start Date: 07/07/20 Status: Orderedperphenazine 16 mg oral tablet 16 mg, 1, tablet, By Mouth, 2 times a day, # 60 tablet, Refills 0, Tot. Refills 0, Maintenance, 01/01/20 16:18:00 EDT, Route to Pharmacy Electronically, [facility]/pharmacy #[id number], 163, cm, 01/01/20 14:39:00 EDT, Height, 86.5, kg, 12/19/19 19:14:00 EDT, Dry W... Start Date: 01/01/20 Status: Orderedperphenazine 8 mg oral tablet 8 mg, 1, tablet, By Mouth, 2 times a day, PRN, Indicated for severe agitation/psychosis and to be taken 8 hours apart, # 60 tablet, Refills 0, Tot. Refills 0, Maintenance, Psychosis, 01/02/20 4:30:00 EDT, Route to Pharmacy Electronically, [facility]/pharmacy... Start Date: 01/02/20 Status: Orderedsimethicone 125 mg oral capsule See Instructions, TAKE 1 CAPSULE BY MOUTH THREE TIMES A DAY AFTER MEALS AND AT BEDTIME NEEDED, # 48 capsule, 2 Refills, Maintenance, 08/13/20 17:29:00 EST, [facility]/pharmacy #[id number], 163, cm, 05/28/20 11:24:00 EDT, Height, 100, kg, 08/04/20 11:40:00 EST,... Start Date: 08/13/20 Status: OrderedTums 500 mg oral tablet, chewable 1,000 mg, 2, tablet, Chew, Every 6 hours, PRN, # 120 tablet, Refills 11, Tot. Refills 11, Maintenance, for indigestion, 08/06/19 12:12:32 EST, Route to Pharmacy Electronically, [facility]/pharmacy #[id number] Start Date: 08/06/19 Stop Date: 07/01/20 Status: OrderedZyrTEC 10 mg oral tablet 1 tablet = 10 mg, By Mouth, Daily, # 30 tablet, 5 Refills, Maintenance, 07/22/20 15:24:00 EDT, Tablet, [facility]/pharmacy #[id number], 163, cm, 05/28/20 11:24:00 EDT, [...] to oldest 1 2 3 [Reference Range]: Height 157 cm 157 cm 157 cm (09/20/20 2:04 PM) (09/20/20 11:18 AM) (09/20/20 8:52 AM) Weight 112 kg 112 kg 112 kg (09/20/20 2:04 PM) (09/20/20 11:18 AM) (09/20/20 8:52 AM) Oxygen Saturation [94-100 100 % 100 % 100 % %] (09/20/20 2:04 PM) (09/20/20 11:18 AM) (09/20/20 8:52 AM) Pulse Rate [55-90 bpm] 91 bpm 75 bpm 75 bpm *H* (09/20/20 11:18 AM) (09/20/20 8: 52 AM) (09/20/20 2:04 PM) Body Mass Index 45.44 45.44 [18.5-24.99] *>HHI* *>HHI* (09/20/20 2:04 PM) (09/20/20 11:18 AM) Blood Pressure 136/83 mm Hg 126/82 mm Hg [90-138/55-84 mm Hg] (09/20/20 2:04 PM) (09/20/20 11:18 AM) Respiratory Rate [16-30 14 br/min 12 br/min 18 br/mi n br/min] *L* *L* (09/20/20 8:52 A M) (09/20/20 2:04 PM) (09/20/20 11:18 AM) Temperature [96.8-100.4 98.7 DegF DegF] (09/20/20 8:52 AM) Mode of Delivery (Oxygen) Room air Room air Room a ir (09/20/20 2:04 PM) (09/20/20 11:18 AM) (09/20/20 8:52 AM) Blood pressure sites Arm, left Arm, left (09/20/20 2:04 PM) (09/20/20 11:18 AM) Temperature Route Oral (09/20/20 8:52 AM) Social History Social History Type Response Tobacco Use: 4 or less cigarettes(le ss than 1/4 pack)/day in last 30 days. Sex Female
--- OUTSIDE RECORDS SUMMARY | 2022-06-29 21:23 | XMS_ITS | Continuity of Care Document ---
:1990 Author Organization [facility] Address [address] [place] [address]- Care Team Providers Name Role Phone Fatoumata Stokes DO Primary Care Physician [facility] Date[facility]): 06/12/20 - 07/12/20 [facility] [id number] [place] [address]- [facility] Allergies, Adverse Reactions, Alerts Substance Reaction [...] 01/14/04 Given Hepatitis B Vaccine (old term) 4/20/04 Given Hepatitis B Vaccine (old term) 08/27/03 [...] 11/22/19 13:30:00 EST, Route to Pharmacy Electronically, [facility]/pharmacy #[id number], 159, cm, 11/19/19 8:17:00 EST, Height, 89.7, kg, 11/14/19 9... Start Date: 11/22/19 Status: OrderedAquaphor Healing topical ointment See Instructions, APPLY TO NIPPLE DAILY NEEDED FOR DISCOMFORT, # 50 Gm, 0 Refills, Maintenance, [id number], 7, APPLY TO NIPPLE DAILY NEEDED FOR DISCOMFORT, 159, cm, 12/10/19 11:02:00 EDT, Height, 86.7, kg, 12/10/19 11:02:00 EDT, Dry Weight Start Date: 12/10/19 Status: Orderedbenztropine 1 mg oral tablet 1 mg, 1, tablet, By Mouth, 2 times a day, # 60 tablet, Refills 0, Tot. Refills 0, Maintenance, 01/01/20 16:15:00 EDT, Route to Pharmacy Electronically, [facility]/pharmacy #[id number], 163, cm, 01/01/20 14:39:00 EDT, Height, 86.5, kg, 12/19/19 19:14:00 EDT, Dry We... Start Date: 01/01/20 Stop Date: 01/31/20 Status: OrderedDepo-Provera Contraceptive 150 mg/mL intramuscular suspension 1 mL = 150 mg, Intramuscular, Every 3 months, # 1 mL, 3 Refills, Maintenance, 05/28/20 11:29:00 EDT,Suspension, [facility], 163, cm, 05/28/20 11:24:00 EDT, Height, 88.9, kg, 04/03/20 14:59:00 EDT, Dry Weight Start Date: 05/28/20 Status: Ordereddocusate sodium 100 mg oral capsule 100 mg, 1, capsule, By Mouth, 2 times a day, # 60 capsule, Refills 11, Tot. Refills 11, Maintenance,01/08/20 11:07:00 EDT, Route to Pharmacy Electronically, [facility]/pharmacy #[id number], 163, cm, 01/02/20 7:50:00 EDT, Height, 86.5, kg, 12/19/19 19:14:00 EDT, D... Start Date: 01/08/20 Stop Date: 01/02/21 Status: Orderedestradiol 0.1 mg/24 hours twice weekly transdermal film, extended release 1 patch, Topically, Every Tuesday and , # 8 patch, 6 Refills, Maintenance, 05/28/20 11:01:00 EDT, [facility]/pharmacy #[id number], 163, cm, 04/03/20 14:59:00 EDT, Height, 88.9, kg, 04/03/20 14:59:00 EDT, DryWeight Start Date: 05/28/20 Status: OrderedEucerin Plus topical lotion 1 application, Topically, 2 times a day, PRN for dry skin, May apply to affected area every 6 hours as needed, up to 2 times/day, # 180 mL, 11 Refills, Maintenance, 08/06/19 12:15:04 EST, Lotion, [facility]/pharmacy #[id number] Start Date: 08/06/19 Status: Orderedferrous sulfate 325 mg oral enteric coated tablet 325 mg, 1, tablet, By Mouth, Daily, # 30 tablet, Refills 11, Tot. Refills 11, Maintenance, 01/08/20 11:07:00 EDT, Route to Pharmacy Electronically, [facility]/pharmacy #[id number], 163, cm, 01/02/20 7:50:00 EDT, Height, 86.5, kg, 12/19/19 19:14:00 EDT, Dry Weight Start Date: 01/08/20 Status: OrderedFlonase 50 mcg/inh nasal spray 1 sprays, Nares, Both, 2 times a day, # 16 Gm, 5 Refills, Maintenance, 07/04/20 9:01:00 EDT, [place], [facility]/pharmacy #[id number], 1 sprays Nares, Both 2 times a day, 163, cm, 05/28/20 11:24:00 EDT, Height, 102.3, kg, 06/22/20 23:55:00 EDT, Dry Weight Start Date: 07/04/20 Status: Orderedlithium 300 mg oral tablet 1 tablet = 300 mg, By Mouth, Daily in AM, # 30 tablet, 0 Refills, Maintenance, 01/01/20 16:16:00 EDT, Tablet, [facility]/pharmacy #[id number], 163, cm, 01/01/20 14:39:00 EDT, Height, 86.5, kg, 12/19/19 19:14:00 EDT, Dry Weight Start Date: 01/01/20 Stop Date: 01/29/20 Status: Orderedlithium 600 mg oral capsule 1 capsule = 600 mg, By Mouth, Daily at bedtime, # 30 capsule, 0 Refills, Maintenance, 01/01/20 16:16:00 EDT, Capsule, [facility]/pharmacy #[id number], 163, cm, 01/01/20 14:39:00 EDT, Height, 86.5, kg, 12/19/19 19:14:00 EDT, Dry Weight Start Date: 01/01/20 Stop Date: 03/01/20 Status: OrderedMiraLax oral powder for reconstitution = 17 Gm, By Mouth, Daily, dissolve in water before taking, # 255 Gm, 0 Refills, Maintenance, 07/11/20 15:38:00 EDT, REC Powder, [facility]/pharmacy #[id number], 17 Gm By Mouth Daily,Instr:dissolve [...] Refills, Maintenance, 07/07/20 11:44:00 EDT, EC Capsule, [facility]/pharmacy #[id number], 163, cm, 05/28/20 11:24:00 EDT, Height, 102.3, kg, 06/22/20 23:55:00 EDT, Dry Weight Start Date: 07/07/20 Status: Orderedperphenazine 16 mg oral tablet 16 mg, 1, tablet, By Mouth, 2 times a day, # 60 tablet, Refills 0, Tot. Refills 0, Maintenance, 01/01/20 16:18:00 EDT, Route to Pharmacy Electronically, [facility]/pharmacy #[id number], 163, cm, 01/01/20 [...] 01/02/20 4:30:00 EDT, Route to Pharmacy Electronically, [facility]/pharmacy... Start Date: 01/02/20 Status: Orderedsimethicone 125 mg oral capsule See Instructions, TAKE 1 CAPSULE BY MOUTH THREE TIMES A DAY AFTER MEALS AND AT BEDTIME NEEDED, # 48 capsule, 2 Refills, Acute, [id number], 163, cm, 05/28/20 11:24:00 EDT, Height, 88.9, kg, 04/03/20 14:59:00 EDT, Dry Weight Start Date: 06/03/20 Status: OrderedTums 500 mg oral tablet, chewable 1,000 mg, 2, tablet, Chew, Every 6 hours, PRN, # 120 tablet, Refills 11, Tot. Refills 11, Maintenance, for indigestion, 08/06/19 12:12:32 EST, Route to Pharmacy Electronically, [facility]/pharmacy #[id number] Start Date: 08/06/19 Stop Date: 07/01/20 Status: OrderedZyrTEC 10 mg oral tablet 1 tablet = 10 mg, By Mouth, Daily, # 30 tablet, 3 Refills, Maintenance, 04/03/20 15:37:00 EDT, Tablet, [facility]/pharmacy #[id number], 163, cm, 04/03/20 14:59:00 EDT, [...]
--- OUTSIDE RECORDS SUMMARY | 2022-06-29 21:23 | XMS_ITS | Continuity of Care Document ---
:1990 Author Organization [facility] Address [address] [place] [address]- Care Team Providers Name Role Phone Fatoumata Stokes DO Primary Care Physician [facility] Date[facility]s): 09/27/19 - 11/10/19 [facility] [address] [place] [address]- [facility] Attending Physician: Fatoumata Stokes DO Allergies, Adverse [...] Note: Clinical Varicella at age 5 Medications Aquaphor Healing topical ointment See Instructions, apply to nipple daily prn discomfort, # 15 Gm, 0 Refills, Maintenance, 10/01/19 17:16:00 EST, [facility]/pharmacy #[id number], apply to nipple daily prn discomfort, 165.1, cm, 10/01/19 11:34:00 EST, Height, 87.5, kg, 07/24/19 0:33:00 EDT, Dry Weight Start Date: 10/01/19 Status: Orderedbenztropine 1 mg oral tablet 1 mg, By Mouth, 2 times a day, # 28 tablet, Refills 2, Tot. Refills 2, Maintenance, 07/27/19 10:53:41 EDT, Print Requisition Start Date: 07/27/19 Stop Date: 09/07/19 Status: OrderedDepo-Provera Contraceptive 150 mg/mL intramuscular suspension 1 mL = 150 mg, Intramuscular, Every 3 months, # 1 mL, 0 Refills, Maintenance, 08/31/19 9:55:56 EST, Suspension, 165.1, cm, 08/31/19 9:41:48 EST, Height, 87.5, kg, 07/24/19 0:33:30 EDT, Dry Weight Start Date: 08/31/19 Status: Ordereddocusate sodium 100 mg oral capsule 100 mg, 1, capsule, By Mouth, 2 times a day, # 60 capsule, Refills 11, Tot. Refills 11, Maintenance,08/06/19 12:12:29 EST, Route to Pharmacy Electronically, [id number], [facility]/pharmacy #[id number] Start Date: 08/06/19 Stop Date: 07/31/20 Status: OrderedEucerin Plus topical lotion 1 application, Topically, 2 times a day, PRN for dry skin, # 180 mL, 11 Refills, Maintenance, 08/06/19 12:15:04 EST, Lotion, 1 application Topically 2 times a day,PRN:for dry skin Start Date: 08/06/19 Status: OrderedEucerin with urea Eucerin with urea, See Instructions, # 400 mL, Refills 0, Tot. Refills 0, Maintenance, use daily, apply topically to LE, 06/29/19 11:49:09 EDT, Compound Start Date: 06/29/19 Status: Orderedferrous sulfate 325 mg oral enteric coated tablet 325 mg, 1, tablet, By Mouth, Daily, # 30 tablet, Refills 11, Tot. Refills 11, Maintenance, 08/06/19 12:12:30 EST, Route to Pharmacy Electronically, [id number], [facility]/pharmacy #[id number] Start Date: 08/06/19 Status: Orderedlithium 300 mg oral tablet = 300 mg, By Mouth, Daily, # 14 tablet, 1 Refills, Maintenance, 07/27/19 10:53:54 EDT, Tablet Start Date: 07/27/19 Stop Date: 08/24/19 Status: Orderedlithium 600 mg oral capsule = 600 mg, By Mouth, Daily at bedtime, # 14 capsule, 1 Refills, Maintenance, 07/27/19 10:53:57 EDT, Capsule Start Date: 07/27/19 Stop Date: 08/24/19 Status: OrderedMiraLax oral powder for reconstitution = 17 Gm, By Mouth, Daily, PRN Constipation, dissolve in water before taking, # 255 Gm, 11 Refills, Maintenance, 08/06/19 12:12:31 EST, REC Powder, 17 Gm By Mouth Daily,PRN:Constipation,Instr:dissolve in water before taking Start Date: 08/06/19 Status: Orderedomeprazole 20 mg oral enteric coated capsule 1 capsule = 20 mg, By Mouth, Daily, to replace pantoprazole, # 90 capsule, 1 Refills, Maintenance, 10/01/19 17:16:00 EST, EC Capsule, [facility]/pharmacy #[id number], 165.1, cm, 10/01/19 11:34:00 EST, Height, 87.5,kg, 07/24/19 0:33:00 EDT, Dry Weight Start Date: 10/01/19 Status: Orderedperphenazine 8 mg oral tablet 12 mg, By Mouth, 2 times a day, # 42 tablet, Refills 2, Tot. Refills 2, Maintenance, 07/27/19 10:54:07 EDT, Print Requisition Start Date: 07/27/19 Stop Date: 09/07/19 Status: Orderedperphenazine 8 mg oral tablet 8 mg, By Mouth, 2 times a day, PRN, # 28 tablet, Refills 2, Tot. Refills 2, Maintenance, Agitation Psychosis, 07/27/19 10:54:13 EDT, Print Requisition Start Date: 07/27/19 Stop Date: 09/07/19 Status: OrderedTums 500 mg oral tablet, chewable 1-2 tablet, Chew, 4 times a day, PRN, # 100 each, Refills 11, Tot. Refills 11, Maintenance, for indigestion, 08/06/19 12:12:32 EST, Route to Pharmacy Electronically, [id number], [facility]/pharmacy #[id number] Start Date: 08/06/19 Status: Ordered Problem List Condition Effective Dates Status Health Status Informant Chronic constipation(Confirmed) Active Chronic post-traumatic stress Active disorder(Confirmed) Depression(Confirmed) Active alcohol syndrome(Confirmed) Active Foster Care (Status)(Confirmed) Active Chronic GERD(Confirmed) Active JAMISON - Iron deficiency Active anemia(Confirmed) [...]
--- OUTSIDE RECORDS SUMMARY | 2022-06-29 21:23 | XMS_ITS | Continuity of Care Document ---
:1990 Author Organization [facility] Address [address] [place] [address]- Care Team Providers Name Role Phone Fatoumata Stokes DO Primary Care Physician [facility]counter [facility] Date(s): 08/25/20 - 09/01/20 [facility] [address] [place], [place] [address] Attending Physician: Fatoumata Stokes DO Allergies, [...] 11/22/19 13:30:00 EST, Route to Pharmacy Electronically, [facility]/pharmacy #[id number], 159, cm, 11/19/19 8:17:00 EST, Height, 89.7, kg, 11/14/19 9... Start Date: 11/22/19 Status: OrderedAquaphor Healing topical ointment See Instructions, APPLY TO NIPPLE DAILY NEEDED FOR DISCOMFORT, # 50 Gm, 0 Refills, Maintenance, [facility] STORE [id number], 7, APPLY TO NIPPLE DAILY NEEDED FOR DISCOMFORT, 159, cm, 12/10/19 11:02:00 EDT, Height, 86.7, kg, 12/10/19 11:02:00 EDT, Dry Weight Start Date: 12/10/19 Status: Orderedbenztropine 1 mg oral tablet 1 mg, 1, tablet, By Mouth, 2 times a day, # 60 tablet, Refills 0, Tot. Refills 0, Maintenance, 01/01/20 16:15:00 EDT, [id number] 163, cm, 01/01/20 14:39:00 EDT, Height, 86.5, kg, 12/19/19 19:14:00 EDT, Dry We... Start Date: 01/01/20 Stop Date: 01/31/20 Status: OrderedDepo-Provera Contraceptive 150 mg/mL intramuscular suspension 1 mL = 150 mg, Intramuscular, Every 3 months, # 1 mL, 3 Refills, Maintenance, 08/26/20 9:54:00 EST, Suspension, [facility], 163, cm, 05/28/20 11:24:00 EDT, Height, 100, kg, 08/04/20 11:40:00 EST, Dry Weight Start Date: 08/26/20 Status: Ordereddocusate sodium 100 mg oral capsule 100 mg, 1, capsule, By Mouth, 2 times a day, # 60 capsule, Refills 11, Tot. Refills 11, Maintenance,01/08/20 11:07:00 EDT, [id number] 163, cm, 01/02/20 7:50:00 EDT, Height, 86.5, kg, 12/19/19 19:14:00 EDT, D... Start Date: 01/08/20 Stop Date: 01/02/21 Status: Orderedestradiol 0.1 mg/24 hours twice weekly transdermal film, extended release 1 patch, Topically, Every Tuesday and , # 8 patch, 6 Refills, Maintenance, 05/28/20 11:01:00 EDT, [facility]/pharmacy #[id number], 163, cm, 04/03/20 14:59:00 EDT, Height, 88.9, kg, 04/03/20 14:59:00 EDT, DryWeight Start Date: 05/28/20 Status: OrderedEucerin Plus topical lotion 1 application, Topically, 2 times a day, PRN for dry skin, May apply to affected area every 6 hours as needed, up to 2 times/day, # 180 mL, 11 Refills, Maintenance, 08/06/19 12:15:04 EST, Lotion, [facility]/pharmacy #[id number] Start Date: 08/06/19 Status: Orderedferrous sulfate 325 mg oral enteric coated tablet 325 mg, 1, tablet, By Mouth, Daily, # 30 tablet, Refills 11, Tot. Refills 11, Maintenance, 01/08/20 11:07:00 EDT, [id number] 163, cm, 01/02/20 7:50:00 EDT, Height, 86.5, kg, 12/19/19 19:14:00 EDT, Dry Weight Start Date: 01/08/20 Status: OrderedFlonase 50 mcg/inh nasal spray 1 sprays, Nares, Both, 2 times a day, # 16 Gm, 5 Refills, Maintenance, 07/04/20 9:01:00 EDT, [place], [facility]/pharmacy #[id number], 1 sprays Nares, Both 2 times a day, 163, cm, 05/28/20 11:24:00 EDT, Height, 102.3, kg, 06/22/20 23:55:00 EDT, Dry Weight Start Date: 07/04/20 Status: Orderedlithium 300 mg oral tablet 1 tablet = 300 mg, By Mouth, Daily in AM, # 30 tablet, 0 Refills, Maintenance, 01/01/20 16:16:00 EDT, Tablet, [facility]/pharmacy #[id number], 163, cm, 01/01/20 14:39:00 EDT, Height, 86.5, kg, 12/19/19 19:14:00 EDT, Dry Weight Start Date: 01/01/20 Stop Date: 01/29/20 Status: Orderedlithium 600 mg oral capsule 1 capsule = 600 mg, By Mouth, Daily at bedtime, # 30 capsule, 0 Refills, Maintenance, 01/01/20 16:16:00 EDT, Capsule, [facility]/pharmacy #[id number], 163, cm, 01/01/20 14:39:00 EDT, Height, [...] Refills, Maintenance, 07/11/20 15:38:00 EDT, REC Powder, [facility]/pharmacy #[id number], 17 Gm By Mouth Daily,Instr:dissolve in water before taking, 163, cm, 05/28/20 11:24:00 EDT, Height, 102... Start Date: 07/11/20 Status: Orderedomeprazole 20 mg oral enteric coated capsule 1 capsule = 20 mg, By Mouth, Daily, # 30 capsule, 5 Refills, Maintenance, 07/07/20 11:44:00 EDT, EC Capsule, [facility]/pharmacy #[id number], 163, cm, 05/28/20 11:24:00 EDT, Height, 102.3, kg, 06/22/20 23:55:00 EDT, Dry Weight Start Date: 07/07/20 Status: Orderedperphenazine 16 mg oral tablet 16 mg, 1, tablet, By Mouth, 2 times a day, # 60 tablet, Refills 0, Tot. Refills 0, Maintenance, 01/01/20 16:18:00 EDT, Route to Pharmacy Electronically, [facility]/pharmacy #[id number], 163, cm, 01/01/20 14:39:00 EDT, Height, 86.5, kg, 12/19/19 19:14:00 EDT, Dry W... Start Date: 01/01/20 Status: Orderedperphenazine 8 mg oral tablet 8 mg, 1, tablet, By Mouth, 2 times a day, PRN, Indicated for severe agitation/psychosis and to be taken 8 hours apart, # 60 tablet, Refills 0, Tot. Refills 0, Maintenance, Psychosis, 01/02/20 4:30:00 EDT, Route to Pharmacy Electronically, [facility]/pharmacy... Start Date: 01/02/20 Status: Orderedsimethicone 125 mg oral capsule See Instructions, TAKE 1 CAPSULE BY MOUTH THREE TIMES A DAY AFTER MEALS AND AT BEDTIME NEEDED, # 48 capsule, 2 Refills, Maintenance, 08/13/20 17:29:00 EST, [facility]/pharmacy #[id number], 163, cm, 05/28/20 11:24:00 EDT, Height, 100, kg, 08/04/20 11:40:00 EST,... Start Date: 08/13/20 Status: OrderedTums 500 mg oral tablet, chewable 1,000 mg, 2, tablet, Chew, Every 6 hours, PRN, # 120 tablet, Refills 11, Tot. Refills 11, Maintenance, for indigestion, 08/06/19 12:12:32 EST, Route to Pharmacy Electronically, [facility]/pharmacy #[id number] Start Date: 08/06/19 Stop Date: 07/01/20 Status: OrderedZyrTEC 10 mg oral tablet 1 tablet = 10 mg, By Mouth, Daily, # 30 tablet, 5 Refills, Maintenance, 07/22/20 15:24:00 EDT, Tablet, [facility]/pharmacy #[id number], 163, cm, 05/28/20 11:24:00 EDT, Height, [...]
--- OUTSIDE RECORDS SUMMARY | 2022-06-29 21:23 | XMS_ITS | Continuity of Care Document ---
:1990 Author Organization [facility] Address [address] [place] [id number]- Care Team Providers Name Role Phone Fatoumata Stokes DO Primary Care Physician Encounter [facility] Date(s): 06/04/20 - 06/05/[address] [address]- [facility] Encounter Diagnosis Abrasion (Final) - 06/04/20 Discharge Disposition: A-D/C Home Attending Physician: Anaya [...] Refills, Maintenance, [facility] STORE [id number], 7, APPLY TO NIPPLE DAILY NEEDED FOR [...] mL, 3 Refills, Maintenance, 05/28/20 11:29:00 EDT,Suspension, [facility], 163, cm, 05/28/20 11:24:00 EDT, Height, 88.9, kg, 04/03/20 14:59:00 EDT, Dry Weight Start Date: 05/28/20 Status: Ordereddocusate sodium 100 mg oral capsule 100 mg, 1, capsule, By Mouth, 2 times a day, # 60 capsule, Refills 11, Tot. Refills 11, Maintenance,01/08/20 11:07:00 EDT, [id number] 163, cm, 01/02/20 7:50:00 EDT, Height, 86.5, kg, 12/19/19 19:14:00 EDT, D... Start Date: 01/08/20 Stop Date: 01/02/21 Status: Orderedestradiol 0.1 mg/24 hours twice weekly transdermal film, extended release 1 patch, Topically, Every Tuesday and , # 8 patch, 6 Refills, Maintenance, 05/28/20 11:01:00 EDT, [facility]/pharmacy #[id number], 163, cm, [...] Gm, 3 Refills, Maintenance, 04/03/20 15:37:00 EDT, [place],[facility]/pharmacy #[id number], 1 sprays Nares, [...] 01/02/20 4:30:00 EDT, [facility] Start Date: 01/02/20 Status: Orderedsimethicone 125 mg oral capsule See Instructions, TAKE 1 CAPSULE BY MOUTH THREE TIMES A DAY AFTER MEALS AND AT BEDTIME NEEDED, # 48 capsule, 2 Refills, Acute, [facility] STORE [id number], 163, cm, 05/28/20 11:24:00 EDT, Height, 88.9, kg, 04/03/20 14:59:00 EDT, Dry Weight Start Date: 06/03/20 Status: OrderedTums 500 mg oral tablet, chewable 1,000 mg, 2, tablet, Chew, Every 6 hours, PRN, # 120 tablet, Refills 11, Tot. Refills 11, Maintenance, for indigestion, 08/06/19 12:12:32 EST, Route to Pharmacy Electronically, [facility]/pharmacy #[id number] Start Date: [...] Range]: 1 2 Oxygen Saturation [94-100 %] 99 % 100 % (06/05/20 12:01 AM) (06/04/20 7:02 PM) Pulse Rate [55-90 bpm] 88 bpm 87 bpm (06/05/20 12:01 AM) (06/04/20 7:02 PM) Blood Pressure [90-138/55-84 mm Hg] 111/69 mm Hg 118/ 82 mm Hg (06/05/20 12:01 AM) (06/04/20 7:02 PM) Respiratory Rate [16-30 br/min] 20 br/min 20 br/mi n (06/05/20 12:01 AM) (06/04/20 7:02 PM) Temperature [96.8-100.4 DegF] 98.1 DegF 98.7 DegF (06/05/20 12:01 AM) (06/04/20 7:02 PM) Mode of Delivery (Oxygen) Room air Room air (06/05/20 12:01 AM) (06/04/20 7:02 PM) Blood pressure sites Arm, right Arm, left (06/05/20 12:01 AM) (06/04/20 7:02 PM) Temperature Route Axillary Oral (06/05/20 12:01 AM) (06/04/20 7:02 PM) Social History Social History Type Response Tobacco Use: 4 or less cigarettes(le ss than 1/4 pack)/day in last 30 days. Sex
--- OUTSIDE RECORDS SUMMARY | 2022-06-29 21:23 | XMS_ITS | Continuity of Care Document ---
:1990 Author Organization [facility] Address [address] [place] [address]- Care Team Providers Name Role Phone Fatoumata Stokes DO Primary Care Physician [facility] Date(s): 07/31/19 - 09/13/19 [facility] [address] [place] [address]- [facility] Attending Physician: Fatoumata Stokes DO Allergies, Adverse Reactions, Alerts Substance Reaction Severity Status Flagyl Active paliperidone Active cloZAPine Active Immunizations Given and Recorded [...] Note: Clinical Varicella at age 5 Medications benztropine 1 mg oral tablet 1 mg, By [...] Maintenance,08/06/19 12:12:29 EST, Route to Pharmacy Electronically, [id number], [facility]/pharmacy #[id number] Start Date: 08/06/19 Stop Date: 07/31/20 Status: [...] 08/06/19 12:12:30 EST, Route to Pharmacy Electronically, [id number], [facility]/pharmacy #[id number] Start Date: 08/06/19 Status: Orderedlithium 300 [...] water before taking Start Date: 08/06/19 Status: Orderedpantoprazole 40 mg oral delayed release tablet 1 tablet = 40 mg, By Mouth, Daily, # 30 tablet, 3 Refills, Maintenance, 08/06/19 12:13:14 EST, note change from prior script Start Date: 08/06/19 Status: Orderedperphenazine 8 mg oral tablet 12 [...] 08/06/19 12:12:32 EST, Route to Pharmacy Electronically, [id number], [facility]/pharmacy #[id number] Start Date: 08/06/19 Status: Ordered Problem [...]
--- OUTSIDE RECORDS SUMMARY | 2022-06-29 21:23 | XMS_ITS | Continuity of Care Document ---
:1990 [facility] Address [address] [place] [address], [address] [place] [address]- Care Team Providers Name Role Phone Fatoumata Stokes DO Primary Care Physician [facility] Date(s): 02/26/20 - 06/12/20 [facility] [address] [place] [address], [address] [place] [address] Attending Physician: Lucía TORRES, [place] Allergies, Adverse Reactions, Alerts Substance Reaction Severity Status Flagyl Active Invega Active cloZAPine Active paliperidone Active Immunizations Given and Recorded Vaccine Date [...] 11/22/19 13:30:00 EST, Route to Pharmacy Electronically, [facility]/pharmacy #[id number], 159, cm, 11/19/19 8:17:00 EST, Height, 89.7, kg, 11/14/19 9... Start Date: 11/22/19 Status: OrderedAquaphor Healing topical ointment See Instructions, APPLY TO NIPPLE DAILY NEEDED FOR DISCOMFORT, # 50 Gm, 0 Refills, Maintenance, [facility] [id number], 7, APPLY TO NIPPLE DAILY NEEDED FOR DISCOMFORT, 159, cm, 12/10/19 11:02:00 EDT, Height, 86.7, kg, 12/10/19 11:02:00 EDT, Dry Weight Start Date: 12/10/19 Status: Orderedbenztropine 1 mg oral tablet 1 mg, 1, tablet, By Mouth, 2 times a day, # 60 tablet, Refills 0, Tot. Refills 0, Maintenance, 01/01/20 16:15:00 EDT, Route to Pharmacy Electronically, [facility]/pharmacy #[id number], 163, cm, 01/01/20 14:39:00 EDT, Height, 86.5, kg, 12/19/19 19:14:00 EDT, Dry We... Start Date: 01/01/20 Stop Date: 01/31/20 Status: OrderedDepo-Provera Contraceptive 150 mg/mL intramuscular suspension 1 mL = 150 mg, Intramuscular, Every 3 months, # 1 mL, 3 Refills, Maintenance, 05/28/20 11:29:00 EDT,Suspension, [facility], 163, cm, 05/28/20 11:24:00 EDT, Height, 88.9, kg, 04/03/20 14:59:00 EDT, Dry Weight Start Date: 05/28/20 Status: Ordereddocusate sodium 100 mg oral capsule 100 mg, 1, capsule, By Mouth, 2 times a day, # 60 capsule, Refills 11, Tot. Refills 11, Maintenance,01/08/20 11:07:00 EDT, Route to Pharmacy Electronically, [facility]/pharmacy #[id number], 163, cm, 01/02/20 7:50:00 EDT, Height, 86.5, kg, 12/19/19 19:14:00 EDT, D... Start Date: 01/08/20 Stop Date: 01/02/21 Status: Orderedestradiol 0.1 mg/24 hours twice weekly transdermal film, extended release 1 patch, Topically, Every Tuesday and , # 8 patch, 6 Refills, Maintenance, 05/28/20 11:01:00 EDT, [facility]/pharmacy #[id number], 163, cm, 04/03/20 14:59:00 EDT, Height, 88.9, kg, 04/03/20 14:59:00 EDT, DryWeight Start Date: 05/28/20 Status: OrderedEucerin Plus topical lotion 1 application, Topically, 2 times a day, PRN for dry skin, May apply to affected area every 6 hours as needed, up to 2 times/day, # 180 mL, 11 Refills, Maintenance, 08/06/19 12:15:04 EST, Lotion, [facility]/pharmacy #[id number] Start Date: 08/06/19 Status: Orderedferrous sulfate 325 mg oral enteric coated tablet 325 mg, 1, tablet, By Mouth, Daily, # 30 tablet, Refills 11, Tot. Refills 11, Maintenance, 01/08/20 11:07:00 EDT, Route to Pharmacy Electronically, [facility]/pharmacy #[id number], 163, cm, 01/02/20 7:50:00 EDT, Height, 86.5, kg, 12/19/19 19:14:00 EDT, Dry Weight Start Date: 01/08/20 Status: OrderedFlonase 50 mcg/inh nasal spray 1 sprays, Nares, Both, 2 times a day, # 16 Gm, 3 Refills, Maintenance, 04/03/20 15:37:00 EDT, [place],[facility]/pharmacy #[id number], 1 sprays Nares, Both 2 times a day, 163, cm, 04/03/20 14:59:00 EDT, Height, 88.9, kg, 04/03/20 14:59:00 EDT, Dry Weight Start Date: 04/03/20 Status: Orderedlithium 300 mg oral tablet 1 tablet = 300 mg, By Mouth, Daily in AM, # 30 tablet, 0 Refills, Maintenance, 01/01/20 16:16:00 EDT, Tablet, [facility]/pharmacy #[id number], 163, cm, 01/01/20 14:39:00 EDT, Height, 86.5, kg, 12/19/19 19:14:00 EDT, Dry Weight Start Date: 01/01/20 Stop Date: 01/29/20 Status: Orderedlithium 600 mg oral capsule 1 capsule = 600 mg, By Mouth, Daily at bedtime, # 30 capsule, 0 Refills, Maintenance, 01/01/20 16:16:00 EDT, Capsule, [facility]/pharmacy #[id number], 163, cm, 01/01/20 14:39:00 EDT, [...] Refills, Maintenance, 01/08/20 11:07:00 EDT, EC Capsule, [facility]/pharmacy #[id number], 163, cm, 01/02/20 7:50:00 EDT, Height, 86.5, kg, 12/19/19 19:14:00 EDT, Dry Weight Start Date: 01/08/20 Status: Orderedperphenazine 16 mg oral tablet 16 mg, 1, tablet, By Mouth, 2 times a day, # 60 tablet, Refills 0, Tot. Refills 0, Maintenance, 01/01/20 16:18:00 EDT, Route to Pharmacy Electronically, [facility]/pharmacy #[id number], 163, cm, 01/01/20 14:39:00 EDT, Height, 86.5, kg, 12/19/19 19:14:00 EDT, Dry W... Start Date: 01/01/20 Status: Orderedperphenazine 8 mg oral tablet 8 mg, 1, tablet, By Mouth, 2 times a day, PRN, Indicated for severe agitation/psychosis and to be taken 8 hours apart, # 60 tablet, Refills 0, Tot. Refills 0, Maintenance, Psychosis, 01/02/20 4:30:00 EDT, Route to Pharmacy Electronically, [facility]/pharmacy... Start Date: 01/02/20 Status: Orderedsimethicone 125 mg oral capsule See Instructions, TAKE 1 CAPSULE BY MOUTH THREE TIMES A DAY AFTER MEALS AND AT BEDTIME NEEDED, # 48 capsule, 2 Refills, Acute, [facility] [id number], 163, cm, 05/28/20 11:24:00 EDT, Height, 88.9, kg, 04/03/20 14:59:00 EDT, Dry Weight Start Date: 06/03/20 Status: OrderedTums 500 mg oral tablet, chewable 1,000 mg, 2, tablet, Chew, Every 6 hours, PRN, # 120 tablet, Refills 11, Tot. Refills 11, Maintenance, for indigestion, 08/06/19 12:12:32 EST, Route to Pharmacy Electronically, [facility]/pharmacy #[id number] Start Date: 08/06/19 Stop Date: 07/01/20 Status: OrderedZyrTEC 10 mg oral tablet 1 tablet = 10 mg, By Mouth, Daily, # 30 tablet, 3 Refills, Maintenance, 04/03/20 15:37:00 EDT, Tablet, [facility]/pharmacy #[id number], 163, cm, 04/03/20 14:59:00 EDT, [...]
--- OUTSIDE RECORDS SUMMARY | 2022-06-29 21:23 | XMS_ITS | Continuity of Care Document ---
:1990 Author Organization [facility] Address [address] [place] [address]- Care Team Providers Name Role Phone Fatoumata Stokes DO Primary Care Physician [facility]counter [facility] Date(s): 05/19/20 - 06/18/20 [facility] [address] [place] [address]- [facility] Allergies, Adverse Reactions, Alerts Substance Reaction Severity [...] 11/22/19 13:30:00 EST, Route to Pharmacy Electronically, [facility]/pharmacy #[id number], 159, cm, 11/19/19 8:17:00 EST, Height, 89.7, kg, 11/14/19 9... Start Date: 11/22/19 Status: OrderedAquaphor Healing topical ointment See Instructions, APPLY TO NIPPLE DAILY NEEDED FOR DISCOMFORT, # 50 Gm, 0 Refills, Maintenance, [facility] STORE [id number], 7, APPLY TO NIPPLE DAILY NEEDED FOR DISCOMFORT, 159, cm, 12/10/19 11:02:00 EDT, Height, 86.7, kg, 12/10/19 11:02:00 EDT, Dry Weight Start Date: 12/10/19 Status: Orderedbenztropine 1 mg oral tablet 1 mg, 1, tablet, By Mouth, 2 times a day, # 60 tablet, Refills 0, Tot. Refills 0, Maintenance, 01/01/20 16:15:00 EDT, Route to Pharmacy Electronically, [facility]/pharmacy #[id number], 163, cm, 01/01/20 14:39:00 EDT, Height, 86.5, kg, 12/19/19 19:14:00 EDT, Dry We... Start Date: 01/01/20 Stop Date: 01/31/20 Status: OrderedDepo-Provera Contraceptive 150 mg/mL intramuscular suspension 1 mL = 150 mg, Intramuscular, Every 3 months, # 1 mL, 3 Refills, Maintenance, 05/28/20 11:29:00 EDT,Suspension, [facility], 163, cm, 05/28/20 11:24:00 EDT, Height, 88.9, kg, 04/03/20 14:59:00 EDT, Dry Weight Start Date: 05/28/20 Status: Ordereddocusate sodium 100 mg oral capsule 100 mg, 1, capsule, By Mouth, 2 times a day, # 60 capsule, Refills 11, Tot. Refills 11, Maintenance,01/08/20 11:07:00 EDT, Route to Pharmacy Electronically, [facility]/pharmacy #[id number], 163, cm, 01/02/20 7:50:00 EDT, Height, 86.5, kg, 12/19/19 19:14:00 EDT, D... Start Date: 01/08/20 Stop Date: 01/02/21 Status: Orderedestradiol 0.1 mg/24 hours twice weekly transdermal film, extended release 1 patch, Topically, Every Tuesday and , # 8 patch, 6 Refills, Maintenance, 05/28/20 11:01:00 EDT, [facility]/pharmacy #[id number], 163, cm, 04/03/20 14:59:00 EDT, Height, 88.9, kg, 04/03/20 14:59:00 EDT, DryWeight Start Date: 05/28/20 Status: OrderedEucerin Plus topical lotion 1 application, Topically, 2 times a day, PRN for dry skin, May apply to affected area every 6 hours as needed, up to 2 times/day, # 180 mL, 11 Refills, Maintenance, 08/06/19 12:15:04 EST, Lotion, [facility]/pharmacy #[id number] Start Date: 08/06/19 Status: Orderedferrous sulfate 325 mg oral enteric coated tablet 325 mg, 1, tablet, By Mouth, Daily, # 30 tablet, Refills 11, Tot. Refills 11, Maintenance, 01/08/20 11:07:00 EDT, [id number], cm, 01/02/20 7:50:00 EDT, Height, 86.5, kg, 12/19/19 19:14:00 EDT, Dry Weight Start Date: 01/08/20 Status: OrderedFlonase 50 mcg/inh nasal spray 1 sprays, Nares, Both, 2 times a day, # 16 Gm, 3 Refills, Maintenance, 04/03/20 15:37:00 EDT, [place],[facility]/pharmacy #[id number], 1 sprays Nares, Both 2 times a day, 163, cm, 04/03/20 14:59:00 EDT, Height, 88.9, kg, 04/03/20 14:59:00 EDT, Dry Weight Start Date: 04/03/20 Status: Orderedlithium 300 mg oral tablet 1 tablet = 300 mg, By Mouth, Daily in AM, # 30 tablet, 0 Refills, Maintenance, 01/01/20 16:16:00 EDT, Tablet, [facility]/pharmacy #[id number], 163, cm, 01/01/20 14:39:00 EDT, Height, 86.5, kg, 12/19/19 19:14:00 EDT, Dry Weight Start Date: 01/01/20 Stop Date: 01/29/20 Status: Orderedlithium 600 mg oral capsule 1 capsule = 600 mg, By Mouth, Daily at bedtime, # 30 capsule, 0 Refills, Maintenance, 01/01/20 16:16:00 EDT, Capsule, [facility]/pharmacy #[id number], 163, cm, 01/01/20 14:39:00 [...] Refills, Maintenance, 01/08/20 11:07:00 EDT, EC Capsule, [facility]/pharmacy #[id number], 163, cm, 01/02/20 7:50:00 EDT, Height, 86.5, kg, 12/19/19 19:14:00 EDT, Dry Weight Start Date: 01/08/20 Status: Orderedperphenazine 16 mg oral tablet 16 mg, 1, tablet, By Mouth, 2 times a day, # 60 tablet, Refills 0, Tot. Refills 0, Maintenance, 01/01/20 16:18:00 EDT, [id number], cm, 01/01/20 14:39:00 EDT, [...] [facility] Start Date: 01/02/20 Status: Orderedsimethicone 125 mg oral capsule See Instructions, TAKE 1 CAPSULE BY MOUTH THREE TIMES A DAY AFTER MEALS AND AT BEDTIME NEEDED, # 48 capsule, 2 Refills, Acute, [facility] [id number], 163, cm, 05/28/20 11:24:00 EDT, Height, 88.9, kg, 04/03/20 14:59:00 EDT, Dry Weight Start Date: 06/03/20 Status: OrderedTums 500 mg oral tablet, chewable 1,000 mg, 2, tablet, Chew, Every 6 hours, PRN, # 120 tablet, Refills 11, Tot. Refills 11, Maintenance, for indigestion, 08/06/19 12:12:32 EST, Route to Pharmacy Electronically, [facility]/pharmacy #[id number] Start Date: 08/06/19 Stop Date: 07/01/20 Status: OrderedZyrTEC 10 mg oral tablet 1 tablet = 10 mg, By Mouth, Daily, # 30 tablet, 3 Refills, Maintenance, 04/03/20 15:37:00 EDT, Tablet, [facility]/pharmacy #[id number], 163, cm, 04/03/20 14:59:00 EDT, Height, [...]
--- OUTSIDE RECORDS SUMMARY | 2022-06-29 21:23 | XMS_ITS | Continuity of Care Document ---
:1990 Author Organization [facility] Address [address] [place] [id number]- Care Team Providers Name Role Phone Fatoumata Stokes DO Primary Care Physician Encounter [facility] Date(s): 07/11/20 - 07/11/[address] [address]- [facility] Encounter Diagnosis Abdominal pain (Final) - 07/11/20 Discharge Disposition: A-D/C Home Attending Physician: Jani Bonner MD Admitting Physician: Jani Bonner MD Referring Physician: Not on Staff, Referring [...] 11/22/19 13:30:00 EST, Route to Pharmacy Electronically, [facility]/pharmacy #[id number], 159, cm, 11/19/19 8:17:00 EST, Height, 89.7, kg, 11/14/19 9... Start Date: 11/22/19 Status: OrderedAquaphor Healing topical ointment See Instructions, APPLY TO NIPPLE DAILY NEEDED FOR DISCOMFORT, # 50 Gm, 0 Refills, Maintenance, [facility] STORE [id number], 7, APPLY TO NIPPLE DAILY NEEDED FOR DISCOMFORT, 159, cm, 12/10/19 11:02:00 EDT, Height, 86.7, kg, 12/10/19 11:02:00 EDT, Dry Weight Start Date: 12/10/19 Status: Orderedbenztropine 1 mg oral tablet 1 mg, 1, tablet, By Mouth, 2 times a day, # 60 tablet, Refills 0, Tot. Refills 0, Maintenance, 01/01/20 16:15:00 EDT, Route to Pharmacy Electronically, [facility]/pharmacy #[id number], 163, cm, 01/01/20 14:39:00 EDT, Height, 86.5, kg, 12/19/19 19:14:00 EDT, Dry We... Start Date: 01/01/20 Stop Date: 01/31/20 Status: OrderedDepo-Provera Contraceptive 150 mg/mL intramuscular suspension 1 mL = 150 mg, Intramuscular, Every 3 months, # 1 mL, 3 Refills, Maintenance, 05/28/20 11:29:00 EDT,Suspension, [facility], 163, cm, 05/28/20 11:24:00 EDT, Height, 88.9, kg, 04/03/20 14:59:00 EDT, Dry Weight Start Date: 05/28/20 Status: Ordereddocusate sodium 100 mg oral capsule 100 mg, 1, capsule, By Mouth, 2 times a day, # 60 capsule, Refills 11, Tot. Refills 11, Maintenance,01/08/20 11:07:00 EDT, [id number] 163, cm, 01/02/20 7:50:00 EDT, Height, 86.5, kg, 12/19/19 19:14:00 EDT, D... Start Date: 01/08/20 Stop Date: 01/02/21 Status: Orderedestradiol 0.1 mg/24 hours twice weekly transdermal film, extended release 1 patch, Topically, Every Tuesday and , # 8 patch, 6 Refills, Maintenance, 05/28/20 11:01:00 EDT, [facility]/pharmacy #[id number], 163, cm, 04/03/20 14:59:00 EDT, Height, 88.9, kg, 04/03/20 14:59:00 EDT, DryWeight Start Date: 05/28/20 Status: OrderedEucerin Plus topical lotion 1 application, Topically, 2 times a day, PRN for dry skin, May apply to affected area every 6 hours as needed, up to 2 times/day, # 180 mL, 11 Refills, Maintenance, 08/06/19 12:15:04 EST, Lotion, [facility]/pharmacy #[id number] Start Date: 08/06/19 Status: Orderedferrous sulfate 325 mg oral enteric coated tablet 325 mg, 1, tablet, By Mouth, Daily, # 30 tablet, Refills 11, Tot. Refills 11, Maintenance, 01/08/20 11:07:00 EDT, Route to Pharmacy Electronically, [facility]/pharmacy #[id number], 163, cm, 01/02/20 7:50:00 EDT, Height, 86.5, kg, 12/19/19 19:14:00 EDT, Dry Weight Start Date: 01/08/20 Status: OrderedFlonase 50 mcg/inh nasal spray 1 sprays, Nares, Both, 2 times a day, # 16 Gm, 5 Refills, Maintenance, 07/04/20 9:01:00 EDT, [place], [facility]/pharmacy #[id number], 1 sprays Nares, Both 2 times a day, 163, cm, 05/28/20 11:24:00 EDT, Height, 102.3, kg, 06/22/20 23:55:00 EDT, Dry Weight Start Date: 07/04/20 Status: Orderedlithium 300 mg oral tablet 1 tablet = 300 mg, By Mouth, Daily in AM, # 30 tablet, 0 Refills, Maintenance, 01/01/20 16:16:00 EDT, Tablet, [facility]/pharmacy #[id number], 163, cm, 01/01/20 14:39:00 EDT, Height, 86.5, kg, 12/19/19 19:14:00 EDT, Dry Weight Start Date: 01/01/20 Stop Date: 01/29/20 Status: Orderedlithium 600 mg oral capsule 1 capsule = 600 mg, By Mouth, Daily at bedtime, # 30 capsule, 0 Refills, Maintenance, 01/01/20 16:16:00 EDT, Capsule, [facility]/pharmacy #[id number], 163, cm, 01/01/20 14:39:00 EDT, Height, 86.5, kg, 12/19/19 19:14:00 EDT, Dry Weight Start Date: 01/01/20 Stop Date: 03/01/20 Status: OrderedMiraLax oral powder for reconstitution = 17 Gm, By Mouth, Daily, dissolve in water before taking, # 255 Gm, 0 Refills, Maintenance, 07/11/20 15:38:00 EDT, REC Powder, [facility]/pharmacy #[id number], 17 Gm By Mouth [...] Refills, Maintenance, 07/07/20 11:44:00 EDT, EC Capsule, [facility]/pharmacy #[id number], 163, cm, 05/28/20 11:24:00 EDT, Height, 102.3, kg, 06/22/20 23:55:00 EDT, Dry Weight Start Date: 07/07/20 Status: Orderedperphenazine 16 mg oral tablet 16 mg, 1, tablet, By Mouth, 2 times a day, # 60 tablet, Refills 0, Tot. Refills 0, Maintenance, 01/01/20 16:18:00 EDT, Route to Pharmacy Electronically, [facility]/pharmacy #[id number], 163, cm, 01/01/20 14:39:00 [...] 01/02/20 4:30:00 EDT, Route to Pharmacy Electronically, [facility]/pharmacy... Start Date: 01/02/20 Status: Orderedsimethicone 125 mg oral capsule See Instructions, TAKE 1 CAPSULE BY MOUTH THREE TIMES A DAY AFTER MEALS AND AT BEDTIME NEEDED, # 48 capsule, 2 Refills, Acute, [facility] ST[facility] [id number], 163, cm, 05/28/20 11:24:00 EDT, Height, 88.9, kg, 04/03/20 14:59:00 EDT, Dry Weight Start Date: 06/03/20 Status: OrderedTums 500 mg oral tablet, chewable 1,000 mg, 2, tablet, Chew, Every 6 hours, PRN, # 120 tablet, Refills 11, Tot. Refills 11, Maintenance, for indigestion, 08/06/19 12:12:32 EST, Route to Pharmacy Electronically, [facility]/pharmacy #[id number] Start Date: 08/06/19 Stop Date: 07/01/20 Status: OrderedZyrTEC 10 mg oral tablet 1 tablet = 10 mg, By Mouth, Daily, # 30 tablet, 3 Refills, Maintenance, 04/03/20 15:37:00 EDT, Tablet, [facility]/pharmacy #[id number], 163, cm, 04/03/20 14:59:00 [...] Saturation [94-100 %] 100 % 100 % (07/11/20 6:20 PM) (07/11/20 12:09 PM) Pulse Rate [55-90 bpm] 70 bpm 82 bpm (07/11/20 6:20 PM) (07/11/20 12:09 PM) Blood Pressure [90-138/55-84 mm Hg] 108/65 mm Hg 136/ 72 mm Hg (07/11/20 6:20 PM) (07/11/20 12:09 PM) Respiratory Rate [16-30 br/min] 18 br/min 18 br/mi n (07/11/20 6:20 PM) (07/11/20 12:09 PM) Temperature [96.8-100.4 DegF] 98.3 DegF 99 DegF (07/11/20:20 PM) (07/11/20 12:09 PM) Mode of Delivery (Oxygen) Room air Room air (07/11/20 6:20 PM) (07/11/20 12:09 PM) Blood pressure sites Arm, left Arm, left (07/11/20:20 PM) (07/11/20 12:09 PM) Temperature Route Oral Oral (07/11/20 6:20 PM) (07/11/20 12:09 PM) Social History Social History Type Response Tobacco Use: 4 or less cigarettes(le ss than 1/4 pack)/day in last 30 days. Sex Female
--- OUTSIDE RECORDS SUMMARY | 2022-06-29 21:23 | XMS_ITS | Continuity of Care Document ---
:1990 Author Organization [facility] Address [address] [place] [address]- Care Team Providers Name Role Phone Fatoumata Stokes DO Primary Care Physician [facility]counter [facility] Date(s): 01/08/20 - 01/15/20 [facility] [address] [place] [address]- [facility] Attending Physician: Fatoumata Stokes DO Allergies, Adverse [...] 11/22/19 13:30:00 EST, Route to Pharmacy Electronically, [facility]/pharmacy #[id number], 159, cm, 11/19/19 8:17:00 EST, Height, 89.7, kg, 11/14/19 9... Start Date: 11/22/19 Status: OrderedAquaphor Healing topical ointment See Instructions, APPLY TO NIPPLE DAILY NEEDED FOR DISCOMFORT, # 50 Gm, 0 Refills, Maintenance, [facility] [id number], 7, APPLY TO NIPPLE DAILY NEEDED FOR [...] mL, 3 Refills, Maintenance, 12/10/19 11:23:00 EDT,Suspension, [facility], 159, cm, 12/10/19 11:02:00 EDT, Height, 86.7, kg, 12/10/19 11:02:00 EDT, Dry Weight Start Date: 12/10/19 Status: Ordereddocusate sodium 100 mg oral capsule 100 mg, 1, capsule, By Mouth, 2 times a day, # 60 capsule, Refills 11, Tot. Refills 11, Maintenance,01/08/20 11:07:00 EDT, [id number], cm, 01/02/20 7:50:00 EDT, Height, 86.5, kg, 12/19/19 19:14:00 EDT, D... Start Date: 01/08/20 Stop Date: 01/02/21 Status: Orderedestradiol 0.1 mg/24 hours twice weekly transdermal film, extended release 1 patch, Topically, Every Tuesday and , # 8 patch, 6 Refills, Maintenance, 12/10/19 11:19:00 EDT, [facility]/pharmacy #[id number], 159, cm, 12/10/19 11:02:00 EDT, Height, 86.7, kg, 12/10/19 11:02:00 EDT, DryWeight Start Date: 12/10/19 Status: OrderedEucerin Plus topical lotion 1 application, Topically, 2 times a day, PRN for dry skin, May apply to affected area every 6 hours as needed, up to 2 times/day, # 180 mL, 11 Refills, Maintenance, 08/06/19 12:15:04 EST, Lotion, [facility]/pharmacy #[id number] Start Date: 08/06/19 Status: Orderedferrous sulfate 325 mg oral enteric coated tablet 325 mg, 1, tablet, By Mouth, Daily, # 30 tablet, Refills 11, Tot. Refills 11, Maintenance, 01/08/20 11:07:00 EDT, Route to Pharmacy Electronically, [facility]/pharmacy #[id number], 163, cm, 01/02/20 7:50:00 EDT, Height, 86.5, kg, 12/19/19 19:14:00 EDT, Dry Weight Start Date: 01/08/20 Status: Orderedlithium 300 mg oral tablet 1 tablet = 300 mg, By Mouth, Daily in AM, # 30 tablet, 0 Refills, Maintenance, 01/01/20 16:16:00 EDT, Tablet, [facility]/pharmacy #[id number], 163, cm, 01/01/20 14:39:00 EDT, Height, 86.5, kg, 12/19/19 19:14:00 EDT, Dry Weight Start Date: 01/01/20 Stop Date: 01/29/20 Status: Orderedlithium 600 mg oral capsule 1 capsule = 600 mg, By Mouth, Daily at bedtime, # 30 capsule, 0 Refills, Maintenance, 01/01/20 16:16:00 EDT, Capsule, [facility]/pharmacy #[id number], 163, cm, 01/01/20 14:39:00 EDT, [...] Refills, Maintenance, 01/08/20 11:07:00 EDT, EC Capsule, [facility]/pharmacy #[id number], 163, cm, 01/02/20 7:50:00 EDT, Height, 86.5, kg, 12/19/19 19:14:00 EDT, Dry Weight Start Date: 01/08/20 Status: Orderedperphenazine 16 mg oral tablet 16 mg, 1, tablet, By Mouth, 2 times a day, # 60 tablet, Refills 0, Tot. Refills 0, Maintenance, 01/01/20 16:18:00 EDT, Route to Pharmacy Electronically, [facility]/pharmacy #[id number], 163, cm, 01/01/20 14:39:00 EDT, Height, 86.5, kg, 12/19/19 19:14:00 EDT, Dry W... Start Date: 01/01/20 Status: Orderedperphenazine 8 mg oral tablet 8 mg, 1, tablet, By Mouth, 2 times a day, PRN, Indicated for severe agitation/psychosis and to be taken 8 hours apart, # 60 tablet, Refills 0, Tot. Refills 0, Maintenance, Psychosis, 01/02/20 4:30:00 EDT, Route to Pharmacy Electronically, [facility]/pharmacy... Start Date: 01/02/20 Status: OrderedTums 500 mg oral tablet, chewable 1,000 mg, 2, tablet, Chew, Every 6 hours, PRN, # 120 tablet, Refills 11, Tot. Refills 11, Maintenance, for indigestion, 08/06/19 12:12:32 EST, Route to Pharmacy Electronically, [facility]/pharmacy #[id number] Start Date: 08/06/19 Stop Date: [...]
--- OUTSIDE RECORDS SUMMARY | 2022-06-29 21:24 | XMS_ITS | Continuity of Care Document ---
:1990 Author Organization [facility] Address [address] [place] [address]- Care Team Providers Name Role Phone Fatoumata Stokes DO Primary Care Physician [facility] Date(s): 10/27/20 - 11/26/20 [facility] [address] [place], [place] [id number] Allergies, Adverse Reactions, Alerts [...] Route to Pharmacy Electronically, [facility]/pharmacy #[id number], 159, cm, 11/19/19 8:17:00 EST, Height, 89.7, kg, 11/14/19 9... Start Date: 11/22/19 Status: OrderedAquaphor Healing topical ointment See Instructions, APPLY TO NIPPLE DAILY NEEDED FOR DISCOMFORT, # 50 Gm, 0 Refills, Maintenance, [facility]ORE [id number], 7, APPLY TO NIPPLE DAILY NEEDED FOR DISCOMFORT, 159, cm, 12/10/19 11:02:00 EDT, Height, 86.7, kg, 12/10/19 11:02:00 EDT, Dry Weight Start Date: 12/10/19 Status: Orderedbenztropine 1 mg oral tablet 1 mg, 1, tablet, By Mouth, 2 times a day, # 60 tablet, Refills 0, Tot. Refills 0, Maintenance, 01/01/20 16:15:00 EDT, Route to Pharmacy Electronically, [facility]/pharmacy #[id number], 163, cm, 01/01/20 14:39:00 EDT, Height, 86.5, kg, 12/19/19 19:14:00 EDT, Dry We... Start Date: 01/01/20 Stop Date: 01/31/20 Status: OrderedDepo-Provera Contraceptive 150 mg/mL intramuscular suspension 1 mL = 150 mg, Intramuscular, Every 3 months, # 1 mL, 3 Refills, Maintenance, 08/26/20 9:54:00 EST, Suspension, [facility], 163, cm, 05/28/20 11:24:00 EDT, [...] 10/31/20 16:01:00 EST, [id number], cm, 10/14/20 10:13:00 EST, Height, 112, kg, 10/14/20 10:13:00 EST, Dry Weight Start Date: 10/31/20 Status: OrderedFlonase 50 mcg/inh nasal spray 1 sprays, Nares, Both, 2 times a day, # 16 Gm, 5 Refills, Maintenance, 07/04/20 9:01:00 EDT, [place], [facility]/pharmacy #[id number], 1 sprays Nares, Both [...] Refills, Maintenance, 07/11/20 15:38:00 EDT, REC Powder, [facility]/pharmacy #[id number], 17 Gm By Mouth Daily,Instr:dissolve in water before taking, 163, cm, 05/28/20 11:24:00 EDT, Height, 102... Start Date: 07/11/20 Status: Orderedomeprazole 20 mg oral enteric coated capsule 1 capsule = 20 mg, By Mouth, Daily, # 30 capsule, 5 Refills, Maintenance, 07/07/20 11:44:00 EDT, EC Capsule, [facility]/pharmacy #[id number], 163, cm, 05/28/20 11:24:00 EDT, [...] capsule, 11 Refills, Maintenance, 10/21/20 9:08:00 EST, [facility]/pharmacy #[id number], 164, cm, 10/14/20 10:13:00 EST, Height, [...] 5 Refills, Maintenance, 07/22/20 15:24:00 EDT, Tablet, [facility]/pharmacy #[id number], 163, cm, 05/28/20 11:24:00 EDT, [...]
--- OUTSIDE RECORDS SUMMARY | 2022-06-29 21:24 | XMS_ITS | Continuity of Care Document ---
:1990 Author Organization [facility] Address [address] [place] [address]- Care Team Providers Name Role Phone Fatoumata Stokes DO Primary Care Physician Encounter [facility] Date(s): 04/03/20 - 04/10/20 [facility] [address] [place] [address]- [facility] Attending Physician: Fatoumata Stokes DO Allergies, Adverse [...] 11/22/19 13:30:00 EST, Route to Pharmacy Electronically, [facility]/pharmacy #[id number], 159, cm, 11/19/19 8:17:00 EST, Height, 89.7, kg, 11/14/19 9... Start Date: 11/22/19 Status: OrderedAquaphor Healing topical ointment See Instructions, APPLY TO NIPPLE DAILY NEEDED FOR DISCOMFORT, # 50 Gm, 0 Refills, Maintenance, [id number], 7, APPLY TO NIPPLE DAILY NEEDED FOR [...] mL, 3 Refills, Maintenance, 12/10/19 11:23:00 EDT,Suspension, [facility], 159, cm, 12/10/19 11:02:00 EDT, Height, 86.7, kg, 12/10/19 11:02:00 EDT, Dry Weight Start Date: 12/10/19 Status: Ordereddocusate sodium 100 mg oral capsule 100 mg, 1, capsule, By Mouth, 2 times a day, # 60 capsule, Refills 11, Tot. Refills 11, Maintenance,01/08/20 11:07:00 EDT, [id number] 163, cm, 01/02/20 7:50:00 EDT, Height, 86.5, kg, 12/19/19 19:14:00 EDT, D... Start Date: 01/08/20 Stop Date: 01/02/21 Status: Orderedestradiol 0.1 mg/24 hours twice weekly transdermal film, extended release 1 patch, Topically, Every Tuesday and , # 8 patch, 6 Refills, Maintenance, 12/10/19 11:19:00 EDT, [facility]/pharmacy #[id number], 159, cm, 12/10/19 11:02:00 EDT, Height, 86.7, kg, 12/10/19 11:02:00 EDT, DryWeight Start Date: 12/10/19 Status: OrderedEucerin Plus topical lotion 1 application, Topically, 2 times a day, PRN for dry skin, May apply to affected area every 6 hours as needed, up to 2 times/day, # 180 mL, 11 Refills, Maintenance, 08/06/19 12:15:04 EST, Lotion, [facility]/pharmacy #[id number] Start Date: 08/06/19 Status: Orderedferrous sulfate 325 mg oral enteric coated tablet 325 mg, 1, tablet, By Mouth, Daily, # 30 tablet, Refills 11, Tot. Refills 11, Maintenance, 01/08/20 11:07:00 EDT, [id number] 163, cm, 01/02/20 7:50:00 EDT, Height, 86.5, kg, 12/19/19 19:14:00 EDT, Dry Weight Start Date: 01/08/20 Status: OrderedFlonase 50 mcg/inh nasal spray 1 sprays, Nares, Both, 2 times a day, # 16 Gm, 3 Refills, Maintenance, 04/03/20 15:37:00 EDT, [place],[facility]/pharmacy #[id number], 1 sprays Nares, Both 2 times a day, 163, cm, 04/03/20 14:59:00 EDT, Height, 88.9, kg, 04/03/20 14:59:00 EDT, Dry Weight Start Date: 04/03/20 Status: Orderedlithium 300 mg oral tablet 1 tablet = 300 mg, By Mouth, Daily in AM, # 30 tablet, 0 Refills, Maintenance, 01/01/20 16:16:00 EDT, Tablet, [facility]/pharmacy #[id number], 163, cm, 01/01/20 14:39:00 EDT, Height, 86.5, kg, 12/19/19 19:14:00 EDT, Dry Weight Start Date: 01/01/20 Stop Date: 01/29/20 Status: Orderedlithium 600 mg oral capsule 1 capsule = 600 mg, By Mouth, Daily at bedtime, # 30 capsule, 0 Refills, Maintenance, 01/01/20 16:16:00 EDT, Capsule, [facility]/pharmacy #[id number], 163, cm, 01/01/20 14:39:00 EDT, Height, [...] Refills, Maintenance, 01/08/20 11:07:00 EDT, EC Capsule, [facility]/pharmacy #[id number], 163, cm, 01/02/20 7:50:00 EDT, Height, 86.5, kg, 12/19/19 19:14:00 EDT, Dry Weight Start Date: 01/08/20 Status: Orderedperphenazine 16 mg oral tablet 16 mg, 1, tablet, By Mouth, 2 times a day, # 60 tablet, Refills 0, Tot. Refills 0, Maintenance, 01/01/20 16:18:00 EDT, Route to Pharmacy Electronically, [facility]/pharmacy #[id number], 163, cm, 01/01/20 14:39:00 EDT, Height, [...] EDT, Route to Pharmacy Electronically, [facility]/pharmacy... Start Date: 01/02/20 Status: Orderedsimethicone 125 mg oral capsule 1 capsule = 125 mg, By Mouth, 3 times a day after meals and bedtime, PRN Other, prn gas, # 48 capsule, 2 Refills, Maintenance, 04/03/20 15:26:00 EDT, Capsule, [facility]/pharmacy #[id number], 163, cm, 04/03/20 14:59:00 EDT, Height, 88.9, kg, 04/03/20 14:59:00 EDT,... Start Date: 04/03/20 Status: OrderedTums 500 mg oral tablet, chewable 1,000 mg, 2, tablet, Chew, Every 6 hours, PRN, # 120 tablet, Refills 11, Tot. Refills 11, Maintenance, for indigestion, 08/06/19 12:12:32 EST, Route to Pharmacy Electronically, [facility]/pharmacy #[id number] Start Date: 08/06/19 Stop Date: 07/01/20 Status: OrderedZyrTEC 10 mg oral tablet 1 tablet = 10 mg, By Mouth, Daily, # 30 tablet, 3 Refills, Maintenance, 04/03/20 15:37:00 EDT, Tablet, [facility]/pharmacy #[id number], 163, cm, 04/03/20 14:59:00 EDT, Height, [...] Most recent to oldest [Reference Range]: 1 Height 163 cm (04/03/20 2:59 PM) Weight 88.9 kg (04/03/20 2:59 PM) Oxygen Saturation [94-100 %] 97 % (04/03/20 2:59 PM) Pulse Rate [55-90 bpm] 89 bpm (04/03/20 2:59 PM) Body Mass Index [18.5-24.99] 33.46 *>HHI* (04/03/20 2:59 PM) Blood Pressure [90-138/55-84 mm Hg] 102/66 mm Hg (04/03/20 2:59 PM) Respiratory Rate [16-30 br/min] 16 br/min (04/03/20 2:59 PM) Temperature [96.8-100.4 DegF] 98.9 DegF (04/03/20 2:59 PM) Mode of Delivery (Oxygen) Room air (7/9/20 2:59 PM) Blood pressure sites Arm, left (04/03/20 2:59 PM) Temperature Route Temporal (04/03/20 2:59 PM) Dry Weight 88.9 kg (04/03/20 2:59 PM) Weight Obtained Via Standing scale (04/03/20 2:59 PM) Social History Social History Type Response Smoking Status Light tobacco smoker entered on: 09/26/14 Sex
--- OUTSIDE RECORDS SUMMARY | 2022-06-29 21:24 | XMS_ITS | Continuity of Care Document ---
:1990 Author Organization [facility] Address [address] [place] [address]- Care Team Providers Name Role Phone Fatoumata Stokes DO Primary Care Physician [facility]counter [facility] Date(s): 03/31/22 - 04/30/22 [facility] [address] [place], [place] [address] Allergies, Adverse Reactions, Alerts Substance [...] 05/28/21 7:42:00 EDT, Route to Pharmacy Electronically, [facility]/pharmacy #[id number], 164, cm, 04/07/21 15:35:00 EDT, Height, 112, kg, 10/14/20 10... Start Date: 05/28/21 Status: OrderedBenefiber oral powder for reconstitution 5 mL, By Mouth, 2 times a day, PRN as needed for constipation, dissolve in 4 to 8 oz of beverage or soft food- hot or cold, # 155 Gm, 11 Refills, Maintenance, 03/05/21 15:58:00 EDT, REC Powder, [facility]/pharmacy #[id number], Partial fill upon patient request if... Start Date: 03/05/21 Status: Orderedbenztropine 1 mg oral tablet 1 mg, 1, tablet, By Mouth, 2 times a day, # 60 tablet, Refills 0, Tot. Refills 0, Maintenance, 01/01/20 16:15:00 EDT, Route to Pharmacy Electronically, [facility]/pharmacy #[id number], 163, cm, 01/01/20 14:39:00 EDT, Height, 86.5, kg, 12/19/19 19:14:00 EDT, Dry We... Start Date: 01/01/20 Stop Date: 01/31/20 Status: Orderedcetirizine 10 mg oral tablet 1 tablet, By Mouth, Daily, # 30 tablet, 2 Refills, 04/28/22 15:16:00 EDT, [facility]/pharmacy #[id number], 163, cm, 09/24/21 16:23:00 EST, Height, 112, kg, 10/14/20 10:13:00 EST, Dry Weight Start Date: 04/28/22 Status: Ordereddocusate sodium 100 mg oral capsule 1 capsule, By Mouth, 2 times a day, # 60 capsule, 5 Refills, [id number], 163, cm, 09/24/21 16:23:00 EST, Height, 112, kg, 10/14/20 10:13:00 EST, Dry Weight Start Date: 02/03/22 Status: OrderedEstradiol Patch 0.1 mg/24 hours twice weekly transdermal film, extended release See Instructions, APPLY 1 PATCH TOPICALLY EVERY TUESDAY & TUESDAY, # 24 patch, 4 Refills, [id number], 84, APPLY 1 PATCH TOPICALLY EVERY TUESDAY & TUESDAY, 163, cm, 09/24/21 16:23:00 EST, Height, 112, kg, 10/14/20 10:13:00 EST, Dry Weight Start Date: 02/11/22 Status: Orderedferrous sulfate 325 mg oral enteric coated tablet 1, tablet, By Mouth, Every other day, due for labs, # 90 tablet, Refills 1, Tot. Refills 1, :11:00 EDT, [employer], 163, cm, 09/24/21 16:23:00 EST, Height, 112, kg, 10/14/20 10:13:00 EST, Dry Weight Start Date: 03/04/22 Status: Orderedfluticasone 50 mcg/inh nasal spray See Instructions, USE 1 SPRAY IN EACH NOSTRIL TWICE A DAY, # 16 mL, 5 Refills, Maintenance, [id number], 30, USE 1 SPRAY IN EACH NOSTRIL TWICE A DAY, 164, cm, 10/14/20 10:13:00 EST, Height, 112, kg, 10/14/20 10:13:00 EST, Dry Weight Start Date: 03/06/21 Status: Orderedlithium 300 mg oral tablet 1 tablet = 300 mg, By Mouth, Daily in AM, # 30 tablet, 0 Refills, Maintenance, 01/01/20 16:16:00 EDT, Tablet, [facility]/pharmacy #[id number], 163, cm, 01/01/20 14:39:00 EDT, Height, 86.5, kg, 12/19/19 19:14:00 EDT, Dry Weight Start Date: 01/01/20 Stop Date: 01/29/20 Status: Orderedlithium 600 mg oral capsule 1 capsule = 600 mg, By Mouth, Daily at bedtime, # 30 capsule, 0 Refills, Maintenance, 01/01/20 16:16:00 EDT, Capsule, [facility]/pharmacy #[id number], 163, cm, 01/01/20 14:39:00 EDT, Height, 86.5, kg, 12/19/19 19:14:00 EDT, Dry Weight Start Date: 01/01/20 Stop Date: 03/01/20 Status: OrderedmedroxyPROGESTERone 150 mg/mL intramuscular suspension 1 mL, Intramuscular, Every 3 months, # 1 mL, 3 Refills, Soft Stop, 03/13/21 13:05:00 EDT, [facility]/pharmacy #[id number], 164, cm, 03/13/21 9:51:00 EDT, Height, 112, kg, 10/14/20 10:13:00 EST, Dry Weight Start Date: 03/13/21 Status: OrderedmedroxyPROGESTERone 150 mg/mL intramuscular suspension See Instructions, INJECT 1 ML INTRAMUSCULARLY EVERY 3 MONTHS, # 1 mL, 3 Refills, [facility], 164, cm, 05/28/21 13:07:00 EDT, Height, 112, kg, 10/14/20 10:13:00 EST, Dry Weight Start Date: 09/07/21 Status: OrderedMiraLax oral powder for reconstitution = 17 Gm, By Mouth, Daily, dissolve in water before taking, # 255 Gm, 0 Refills, Maintenance, 07/11/20 15:38:00 EDT, REC Powder, [facility]/pharmacy #[id number], 17 Gm By Mouth Daily,Instr:dissolve in water before taking, 163, cm, 05/28/20 11:24:00 EDT, Height, 102... Start Date: 07/11/20 Status: Orderedomeprazole 20 mg oral enteric coated capsule 1 capsule, By Mouth, Daily, # 90 capsule, 0 Refills, [id number], 163, cm, 09/24/21 16:23:00 EST, Height, 112, kg, 10/14/20 10:13:00 EST, Dry Weight Start Date: 03/04/22 Status: Orderedperphenazine 16 mg oral tablet 16 mg, 1, tablet, By Mouth, 2 times a day, # 60 tablet, Refills 0, Tot. Refills 0, Maintenance, 01/01/20 16:18:00 EDT, Route to Pharmacy Electronically, [facility]/pharmacy #[id number], 163, cm, 01/01/20 14:39:00 EDT, [...] EDT, Route to Pharmacy Electronically, [facility]/pharmacy... Start Date: 01/02/20 Status: OrderedSenna-Time 8.6 mg oral tablet 1 tablet, By Mouth, Daily at bedtime, PRN NEEDED FOR CONSTIPATION, # 60 tablet, 1 Refills, [id number], 163, cm, 09/24/21 16:23:00 EST, Height, 112, kg, 10/14/20 10:13:00 EST, Dry Weight Start Date: 12/28/21 Status: Orderedsimethicone 125 mg oral capsule See Instructions, TAKE 1 CAPSULE BY MOUTH THREE TIMES A DAY AFTER MEALS AND AT BEDTIME NEEDED, # 48 capsule, 11 Refills, [id number], 163, cm, 09/24/21 16:23:00 EST, Height, 112, kg, 10/14/20 10:13:00 EST, Dry Weight Start Date: 01/15/22 Status: Ordered Problem List Condition Effective Dates [...]
--- OUTSIDE RECORDS SUMMARY | 2022-06-29 21:24 | XMS_ITS | Continuity of Care Document ---
:1990 Author Organization [facility] Address [address] [place] [id number]- Care Team Providers Name Role Phone Fatoumata Stokes DO Primary Care Physician Encounter [facility] Date(s): 07/07/20 - 07/07/[address] [address]- [facility] Discharge Disposition: A-D/C Home Attending Physician: Tian [...] 11/22/19 13:30:00 EST, Route to Pharmacy Electronically, [facility]/pharmacy #[id number], 159, cm, 11/19/19 8:17:00 EST, Height, 89.7, kg, 11/14/19 9... Start Date: 11/22/19 Status: OrderedAquaphor Healing topical ointment See Instructions, APPLY TO NIPPLE DAILY NEEDED FOR DISCOMFORT, # 50 Gm, 0 Refills, Maintenance, [id number], 7, APPLY TO NIPPLE DAILY NEEDED FOR DISCOMFORT, 159, cm, 12/10/19 11:02:00 EDT, Height, 86.7, kg, 12/10/19 11:02:00 EDT, Dry Weight Start Date: 12/10/19 Status: Orderedbenztropine 1 mg oral tablet 1 mg, 1, tablet, By Mouth, 2 times a day, # 60 tablet, Refills 0, Tot. Refills 0, Maintenance, 01/01/20 16:15:00 EDT, Route to Pharmacy Electronically, [facility]/pharmacy #[id number], 163, cm, 01/01/20 14:39:00 EDT, Height, 86.5, kg, 12/19/19 19:14:00 EDT, Dry We... Start Date: 01/01/20 Stop Date: 01/31/20 Status: OrderedDepo-Provera Contraceptive 150 mg/mL intramuscular suspension 1 mL = 150 mg, Intramuscular, Every 3 months, # 1 mL, 3 Refills, Maintenance, 05/28/20 11:29:00 EDT,Suspension, [facility], 163, cm, 05/28/20 11:24:00 EDT, Height, 88.9, kg, 04/03/20 14:59:00 EDT, Dry Weight Start Date: 05/28/20 Status: Ordereddocusate sodium 100 mg oral capsule 100 mg, 1, capsule, By Mouth, 2 times a day, # 60 capsule, Refills 11, Tot. Refills 11, Maintenance,01/08/20 11:07:00 EDT, Route to Pharmacy Electronically, [facility]/pharmacy #[id number], 163, cm, 01/02/20 7:50:00 EDT, Height, 86.5, kg, 12/19/19 19:14:00 EDT, D... Start Date: 01/08/20 Stop Date: 01/02/21 Status: Orderedestradiol 0.1 mg/24 hours twice weekly transdermal film, extended release 1 patch, Topically, Every Tuesday and , # 8 patch, 6 Refills, Maintenance, 05/28/20 11:01:00 EDT, [facility]/pharmacy #[id number], 163, cm, 04/03/20 14:59:00 EDT, Height, 88.9, kg, 04/03/20 14:59:00 EDT, DryWeight Start Date: 05/28/20 Status: OrderedEucerin Plus topical lotion 1 application, Topically, 2 times a day, PRN for dry skin, May apply to affected area every 6 hours as needed, up to 2 times/day, # 180 mL, 11 Refills, Maintenance, 08/06/19 12:15:04 EST, Lotion, [facility]/pharmacy #[id number] Start Date: 08/06/19 Status: Orderedferrous sulfate 325 mg oral enteric coated tablet 325 mg, 1, tablet, By Mouth, Daily, # 30 tablet, Refills 11, Tot. Refills 11, Maintenance, 01/08/20 11:07:00 EDT, Route to Pharmacy Electronically, [facility]/pharmacy #[id number], 163, cm, 01/02/20 7:50:00 EDT, Height, 86.5, kg, 12/19/19 19:14:00 EDT, Dry Weight Start Date: 01/08/20 Status: OrderedFlonase 50 mcg/inh nasal spray 1 sprays, Nares, Both, 2 times a day, # 16 Gm, 5 Refills, Maintenance, 07/04/20 9:01:00 EDT, [place], [facility]/pharmacy #[id number], 1 sprays Nares, Both 2 times a day, 163, cm, 05/28/20 11:24:00 EDT, Height, 102.3, kg, 06/22/20 23:55:00 EDT, Dry Weight Start Date: 07/04/20 Status: Orderedlithium 300 mg oral tablet 1 tablet = 300 mg, By Mouth, Daily in AM, # 30 tablet, 0 Refills, Maintenance, 01/01/20 16:16:00 EDT, Tablet, [facility]/pharmacy #[id number], 163, cm, 01/01/20 14:39:00 EDT, Height, 86.5, kg, 12/19/19 19:14:00 EDT, Dry Weight Start Date: 01/01/20 Stop Date: 01/29/20 Status: Orderedlithium 600 mg oral capsule 1 capsule = 600 mg, By Mouth, Daily at bedtime, # 30 capsule, 0 Refills, Maintenance, 01/01/20 16:16:00 EDT, Capsule, [facility]/pharmacy #[id number], 163, cm, 01/01/20 14:39:00 EDT, Height, [...] Refills, Maintenance, 07/07/20 11:44:00 EDT, EC Capsule, [facility]/pharmacy #[id number], 163, cm, 05/28/20 11:24:00 EDT, Height, 102.3, kg, 06/22/20 23:55:00 EDT, Dry Weight Start Date: 07/07/20 Status: Orderedperphenazine 16 mg oral tablet 16 mg, 1, tablet, By Mouth, 2 times a day, # 60 tablet, Refills 0, Tot. Refills 0, Maintenance, 01/01/20 16:18:00 EDT, Route to Pharmacy Electronically, [facility]/pharmacy #[id number], 163, cm, 01/01/20 14:39:00 EDT, Height, 86.5, kg, 12/19/19 19:14:00 EDT, Dry W... Start Date: 01/01/20 Status: Orderedperphenazine 8 mg oral tablet 8 mg, 1, tablet, By Mouth, 2 times a day, PRN, Indicated for severe agitation/psychosis and to be taken 8 hours apart, # 60 tablet, Refills 0, Tot. Refills 0, Maintenance, Psychosis, 01/02/20 4:30:00 EDT, [facility] Start Date: 01/02/20 Status: Orderedsimethicone 125 mg oral capsule See Instructions, TAKE 1 CAPSULE BY MOUTH THREE TIMES A DAY AFTER MEALS AND AT BEDTIME NEEDED, # 48 capsule, 2 Refills, Acute, [id number], 163, cm, 05/28/20 11:24:00 EDT, Height, 88.9, kg, 04/03/20 14:59:00 EDT, Dry Weight Start Date: 06/03/20 Status: OrderedTums 500 mg oral tablet, chewable 1,000 mg, 2, tablet, Chew, Every 6 hours, PRN, # 120 tablet, Refills 11, Tot. Refills 11, Maintenance, for indigestion, 11/11/19 12:12:32 EST, Route to Pharmacy Electronically, [id number] Start Date: 08/06/19 Stop Date: 07/01/20 Status: OrderedZyrTEC 10 mg oral tablet 1 tablet = 10 mg, By Mouth, Daily, # 30 tablet, 3 Refills, Maintenance, 04/03/20 15:37:00 EDT, Tablet, [facility]/pharmacy #[id number], 163, cm, 04/03/20 14:59:00 EDT, Height, [...] Range]: 1 2 Oxygen Saturation [94-100 %] 98 % 98 % (07/07/20 4:38 AM) (07/07/20 12:30 AM) Pulse Rate [55-90 bpm] 88 bpm 80 bpm (07/07/20 4:38 AM) (07/07/20 12:30 AM) Blood Pressure [90-138/55-84 mm Hg] 140/98 mm Hg 139/ 91 mm Hg *H* *H* (07/07/20 4:38 AM) (07/07/20 12:30 AM) Respiratory Rate [16-30 br/min] 18 br/min 18 br/mi n (07/07/20 4:38 AM) (07/07/20 12:30 AM) Temperature [96.8-100.4 DegF] 99.3 DegF 98.6 DegF (07/07/20 4:38 AM) (07/07/20 12:30 AM) Mode of Delivery (Oxygen) Room air Room air (07/07/20 4:38 AM) (07/07/20 12:30 AM) Blood pressure sites Arm, right Arm, right (07/07/20 4:38 AM) (07/07/20 12:30 AM) Temperature Route Oral Oral (07/07/20 4:38 AM) (07/07/20 12:30 AM) Social History Social History Type Response Tobacco Use: 4 or less cigarettes(le ss than 1/4 pack)/day in last 30 days. Sex Female
--- OUTSIDE RECORDS SUMMARY | 2022-06-29 21:24 | XMS_ITS | Continuity of Care Document ---
:1990 Author Organization [facility] Address [address] [place] [id number]- Care Team Providers Name Role Phone Fatoumata Stokes DO Primary Care Physician [facility]counter [facility] Date(s): 05/26/20 - 05/26/[address] [address]- [facility] Encounter Diagnosis Schizo-affective psychosis (Final) - 05/26/20 Discharge Disposition: A-D/C Home Attending Physician: Michele [...] 11/22/19 13:30:00 EST, Route to Pharmacy Electronically, [facility]/pharmacy #[id number], 159, cm, 11/19/19 8:17:00 EST, Height, 89.7, kg, 11/14/19 9... Start Date: 11/22/19 Status: OrderedAquaphor Healing topical ointment See Instructions, APPLY TO NIPPLE DAILY NEEDED FOR DISCOMFORT, # 50 Gm, 0 Refills, Maintenance, [id number], 7, APPLY TO NIPPLE DAILY NEEDED FOR DISCOMFORT, 159, cm, 12/10/19 11:02:00 EDT, Height, 86.7, kg, 12/10/19 11:02:00 EDT, Dry Weight Start Date: 12/10/19 Status: Orderedbenztropine 1 mg oral tablet 1 mg, 1, tablet, By Mouth, 2 times a day, # 60 tablet, Refills 0, Tot. Refills 0, Maintenance, 01/01/20 16:15:00 EDT, Route to Pharmacy Electronically, [facility]/pharmacy #[id number], 163, cm, 01/01/20 14:39:00 EDT, Height, 86.5, kg, 12/19/19 19:14:00 EDT, Dry We... Start Date: 01/01/20 Stop Date: 01/31/20 Status: OrderedDepo-Provera Contraceptive 150 mg/mL intramuscular suspension 1 mL = 150 mg, Intramuscular, Every 3 months, # 1 mL, 3 Refills, Maintenance, 12/10/19 11:23:00 EDT,Suspension, [facility], 159, cm, 12/10/19 11:02:00 EDT, Height, 86.7, kg, 12/10/19 11:02:00 EDT, Dry Weight Start Date: 12/10/19 Status: Ordereddocusate sodium 100 mg oral capsule 100 mg, 1, capsule, By Mouth, 2 times a day, # 60 capsule, Refills 11, Tot. Refills 11, Maintenance,01/08/20 11:07:00 EDT, Route to Pharmacy Electronically, [facility]/pharmacy #[id number], 163, cm, 01/02/20 7:50:00 EDT, Height, 86.5, kg, 12/19/19 19:14:00 EDT, D... Start Date: 01/08/20 Stop Date: 01/02/21 Status: Orderedestradiol 0.1 mg/24 hours twice weekly transdermal film, extended release 1 patch, Topically, Every Tuesday and , # 8 patch, 6 Refills, Maintenance, 12/10/19 11:19:00 EDT, [facility]/pharmacy #[id number], 159, cm, 12/10/19 11:02:00 EDT, Height, 86.7, kg, 12/10/19 11:02:00 EDT, DryWeight Start Date: 12/10/19 Status: OrderedEucerin Plus topical lotion 1 application, Topically, 2 times a day, PRN for dry skin, May apply to affected area every 6 hours as needed, up to 2 times/day, # 180 mL, 11 Refills, Maintenance, 08/06/19 12:15:04 EST, Lotion, [facility]/pharmacy #[id number] Start Date: 08/06/19 Status: Orderedferrous sulfate 325 mg oral enteric coated tablet 325 mg, 1, tablet, By Mouth, Daily, # 30 tablet, Refills 11, Tot. Refills 11, Maintenance, 01/08/20 11:07:00 EDT, Route to Pharmacy Electronically, [facility]/pharmacy #[id number], 163, cm, 01/02/20 7:50:00 EDT, Height, 86.5, kg, 12/19/19 19:14:00 EDT, Dry Weight Start Date: 01/08/20 Status: OrderedFlonase 50 mcg/inh nasal spray 1 sprays, Nares, Both, 2 times a day, # 16 Gm, 3 Refills, Maintenance, 04/03/20 15:37:00 EDT, [place],[facility]/pharmacy #[id number], 1 sprays Nares, Both 2 times a day, 163, cm, 04/03/20 14:59:00 EDT, Height, 88.9, kg, 04/03/20 14:59:00 EDT, Dry Weight Start Date: 04/03/20 Status: Orderedlithium 300 mg oral tablet 1 tablet = 300 mg, By Mouth, Daily in AM, # 30 tablet, 0 Refills, Maintenance, 01/01/20 16:16:00 EDT, Tablet, [facility]/pharmacy #[id number], 163, cm, 01/01/20 14:39:00 EDT, Height, 86.5, kg, 12/19/19 19:14:00 EDT, Dry Weight Start Date: 01/01/20 Stop Date: 01/29/20 Status: Orderedlithium 600 mg oral capsule 1 capsule = 600 mg, By Mouth, Daily at bedtime, # 30 capsule, 0 Refills, Maintenance, 01/01/20 16:16:00 EDT, Capsule, [facility]/pharmacy #[id number], 163, cm, 01/01/20 14:39:00 [...] Refills, Maintenance, 01/08/20 11:07:00 EDT, EC Capsule, [facility]/pharmacy #[id number], 163, cm, 01/02/20 7:50:00 EDT, Height, 86.5, kg, 12/19/19 19:14:00 EDT, Dry Weight Start Date: 01/08/20 Status: Orderedperphenazine 16 mg oral tablet 16 mg, 1, tablet, By Mouth, 2 times a day, # 60 tablet, Refills 0, Tot. Refills 0, Maintenance, 01/01/20 16:18:00 EDT, Route to Pharmacy Electronically, [facility]/pharmacy #[id number], 163, cm, 01/01/20 14:39:00 [...] 01/02/20 4:30:00 EDT, Route to Pharmacy Electronically, [facility]/pharmacy... Start Date: 01/02/20 Status: Orderedsimethicone 125 mg oral capsule 1 capsule = 125 mg, By Mouth, 3 times a day after meals and bedtime, PRN Other, prn gas, # 48 capsule, 2 Refills, Maintenance, 04/03/20 15:26:00 EDT, Capsule, [facility]/pharmacy #[id number], 163, cm, 04/03/20 14:59:00 EDT, Height, 88.9, kg, 04/03/20 14:59:00 EDT,... Start Date: 04/03/20 Status: OrderedTums 500 mg oral tablet, chewable 1,000 mg, 2, tablet, Chew, Every 6 hours, PRN, # 120 tablet, Refills 11, Tot. Refills 11, Maintenance, for indigestion, 08/06/19 12:12:32 EST, Route to Pharmacy Electronically, [facility]/pharmacy #[id number] Start Date: 08/06/19 Stop Date: 07/01/20 Status: OrderedZyrTEC 10 mg oral tablet 1 tablet = 10 mg, By Mouth, Daily, # 30 tablet, 3 Refills, Maintenance, 04/03/20 15:37:00 EDT, Tablet, [facility]/pharmacy #[id number], 163, cm, 04/03/20 14:59:00 [...] Most recent to oldest [Reference Range]: 1 Oxygen Saturation [94-100 %] 100 % (05/26/20 10:37 AM) Pulse Rate [55-90 bpm] 82 bpm (05/26/20 10:37 AM) Blood Pressure [90-138/55-84 mm Hg] 126/81 mm Hg (05/26/20 10:37 AM) Respiratory Rate [16-30 br/min] 19 br/min (05/26/20 10:37 AM) Temperature [96.8-100.4 DegF] 98.2 DegF (05/26/20 10:37 AM) Mode of Delivery (Oxygen) Room air (05/26/20 10:37 AM) Temperature Route Oral (05/26/20 10:37 AM) Social History Social History Type Response Tobacco Use: 4 or less cigarettes(le ss than 1/4 pack)/day in last 30 days. Sex
--- OUTSIDE RECORDS SUMMARY | 2022-06-29 21:24 | XMS_ITS | Continuity of Care Document ---
:1990 Author Organization [facility] Address [address] [place] [address]- Care Team Providers Name Role Phone Fatoumata Stokes DO Primary Care Physician [facility]counter [facility] Date(s): 11/01/20 - 11/02/[address] [address]- Encounter Diagnosis Abdominal pain (Final) - 11/01/20 Discharge Disposition: A-D/C Home Attending Physician: Kenneth Govea MD Admitting Physician: Kenneth Govea MD Referring Physician: Not on Staff, Referring [...] 0 Refills, Maintenance, [id number], 7, APPLY TO NIPPLE DAILY NEEDED FOR DISCOMFORT, 159, cm, 12/10/19 11:02:00 EDT, Height, 86.7, kg, 12/10/19 11:02:00 EDT, Dry Weight Start Date: 12/10/19 Status: Orderedbenztropine 1 mg oral tablet 1 mg, 1, tablet, By Mouth, 2 times a day, # 60 tablet, Refills 0, Tot. Refills 0, Maintenance, 01/01/20 16:15:00 EDT, [id number], cm, 01/01/20 14:39:00 EDT, Height, 86.5, kg, 12/19/19 19:14:00 EDT, Dry We... Start Date: 01/01/20 Stop Date: 01/31/20 Status: OrderedDepo-Provera Contraceptive 150 mg/mL intramuscular suspension 1 mL = 150 mg, Intramuscular, Every 3 months, # 1 mL, 3 Refills, Maintenance, 08/26/20 9:54:00 EST, Suspension, [facility], 163, cm, 05/28/20 11:24:00 EDT, Height, 100, kg, 08/04/20 11:40:00 EST, Dry Weight Start Date: 08/26/20 Status: Ordereddocusate sodium 100 mg oral capsule 100 mg, 1, capsule, By Mouth, 2 times a day, # 60 capsule, Refills 11, Tot. Refills 11, Maintenance,01/08/20 11:07:00 EDT, [id number] 163, cm, 01/02/20 [...] 11 Refills, Maintenance, 08/06/19 12:15:04 EST, Lotion, [id number] Start Date: 08/06/19 Status: Orderedferrous sulfate 325 mg oral enteric coated tablet 325 mg, 1, tablet, By Mouth, Daily, # 90 tablet, Refills 1, Tot. Refills 1, Maintenance, 10/31/20 16:01:00 EST, Route to Pharmacy Electronically, [facility]/pharmacy #[id number], 164, cm, 10/14/20 10:13:00 EST, Height, 112, kg, 10/14/20 10:13:00 EST, Dry Weight Start Date: 10/31/20 Status: OrderedFlonase 50 mcg/inh nasal spray 1 sprays, Nares, Both, 2 times a day, # 16 Gm, 5 Refills, Maintenance, 07/04/20 9:01:00 EDT, [place], [facility]/pharmacy #[id number], 1 sprays Nares, [...] capsule, 11 Refills, Maintenance, 10/21/20 9:08:00 EST, [facility]/pharmacy #[id number], 164, cm, 10/14/20 10:13:00 EST, Height, [...] %] 100 % 100 % 100 % (11/02/20 3:05 AM) (11/01/20 9:40 PM) (11/01/20 5:41 P M) Pulse Rate [55-90 bpm] 91 bpm 74 bpm 85 bpm *H* (11/01/20 9:40 PM) (11/01/20 5:41 PM ) (11/02/20 3:05 AM) Blood Pressure [90-138/55-84 mm 114/61 mm Hg 121/64 mm Hg 152/86 mm Hg Hg] (11/02/20 3:05 AM) (11/01/20 9:40 PM) *H* (11/01/20 5:41 PM) Respiratory Rate [16-30 br/min] 16 br/min 16 br/min 18 br/min (11/02/20 3:05 AM) (11/01/20 9:40 PM) (11/01/20 5:41 P M) Temperature [96.8-100.4 DegF] 98.4 DegF 98.4 DegF 98 .1 DegF (11/02/20 3:05 AM) (11/01/20 9:40 PM) (11/01/20 5:41 P M) Mode of Delivery (Oxygen) Room air Room air Room a ir (11/02/20 3:05 AM) (11/01/20 9:40 PM) (11/01/20 5:41 P M) Blood pressure sites Arm, left Arm, left Arm, left (11/02/20 3:05 AM) (11/01/20 9:40 PM) (11/01/20 5:41 P M) Temperature Route Oral Oral Oral (11/02/20 3:05 AM) (11/01/20 9:40 PM) (11/01/20 5:41 P M) Social History Social History Type Response Tobacco Use: 4 or less cigarettes(le ss than 1/4 pack)/day in last 30 days. Sex Female
--- OUTSIDE RECORDS SUMMARY | 2022-06-29 21:24 | XMS_ITS | Continuity of Care Document ---
:1990 Author Organization [facility] Address [address] [place] [address], [address] [place] [address]- Care Team Providers Name Role Phone Fatoumata Stokes DO Primary Care Physician [facility]): [facility] [address] [facility], [address] [place] [id number] Attending Physician: Clayton Alvarez MD Allergies, Adverse [...] H1N1, live(oldterm) 10/03/09 Given Meningococcal Conjugate Vaccine 2/13/07 Given tetanus-diphtheria toxoids (Td) 01/14/04 Given Hepatitis [...] 11/22/19 13:30:00 EST, Route to Pharmacy Electronically, [facility]/pharmacy #[id number], 159, cm, 11/19/19 8:17:00 EST, Height, 89.7, kg, 11/14/19 9... Start Date: 11/22/19 Status: OrderedAquaphor Healing topical ointment See Instructions, APPLY TO NIPPLE DAILY NEEDED FOR DISCOMFORT, # 50 Gm, 0 Refills, Maintenance, [facility] [id number], 7, APPLY TO NIPPLE DAILY NEEDED FOR DISCOMFORT, 159, cm, 12/10/19 11:02:00 EDT, Height, 86.7, kg, 12/10/19 11:02:00 EDT, Dry Weight Start Date: 12/10/19 Status: Orderedbenztropine 1 mg oral tablet 1 mg, 1, tablet, By Mouth, 2 times a day, # 60 tablet, Refills 0, Tot. Refills 0, Maintenance, 01/01/20 16:15:00 EDT, Route to Pharmacy Electronically, [facility]/pharmacy #[id number], 163, cm, 01/01/20 14:39:00 EDT, Height, 86.5, kg, 12/19/19 19:14:00 EDT, Dry We... Start Date: 01/01/20 Stop Date: 01/31/20 Status: OrderedDepo-Provera Contraceptive 150 mg/mL intramuscular suspension 1 mL = 150 mg, Intramuscular, Every 3 months, # 1 mL, 3 Refills, Maintenance, 08/26/20 9:54:00 EST, Suspension, [facility], 163, cm, 05/28/20 11:24:00 EDT, Height, 100, kg, 08/04/20 11:40:00 EST, Dry Weight Start Date: 08/26/20 Status: Ordereddocusate sodium 100 mg oral capsule 100 mg, 1, capsule, By Mouth, 2 times a day, # 60 capsule, Refills 11, Tot. Refills 11, Maintenance,01/08/20 11:07:00 EDT, Route to Pharmacy Electronically, [facility]/pharmacy #[id number], 163, cm, 01/02/20 7:50:00 EDT, Height, 86.5, kg, 12/19/19 19:14:00 EDT, D... Start Date: 01/08/20 Stop Date: 01/02/21 Status: Orderedestradiol 0.1 mg/24 hours twice weekly transdermal film, extended release 1 patch, Topically, Every Tuesday and , # 8 patch, 6 Refills, Maintenance, 05/28/20 11:01:00 EDT, [facility]/pharmacy #[id number], 163, cm, 04/03/20 14:59:00 EDT, Height, 88.9, kg, 04/03/20 14:59:00 EDT, DryWeight Start Date: 05/28/20 Status: OrderedEucerin Plus topical lotion 1 application, Topically, 2 times a day, PRN for dry skin, May apply to affected area every 6 hours as needed, up to 2 times/day, # 180 mL, 11 Refills, Maintenance, 08/06/19 12:15:04 EST, Lotion, [facility]/pharmacy #[id number] Start Date: 08/06/19 Status: Orderedferrous sulfate 325 mg oral enteric coated tablet 325 mg, 1, tablet, By Mouth, Daily, # 30 tablet, Refills 11, Tot. Refills 11, Maintenance, 01/08/20 11:07:00 EDT, Route to Pharmacy Electronically, [facility]/pharmacy #[id number], 163, cm, 01/02/20 7:50:00 EDT, Height, 86.5, kg, 12/19/19 19:14:00 EDT, Dry Weight Start Date: 01/08/20 Status: OrderedFlonase 50 mcg/inh nasal spray 1 sprays, Nares, Both, 2 times a day, # 16 Gm, 5 Refills, Maintenance, 07/04/20 9:01:00 EDT, [place], [facility]/pharmacy #[id number], 1 sprays Nares, Both 2 times a day, 163, cm, 05/28/20 11:24:00 EDT, Height, 102.3, kg, 06/22/20 23:55:00 EDT, Dry Weight Start Date: 07/04/20 Status: Orderedlithium 300 mg oral tablet 1 tablet = 300 mg, By Mouth, Daily in AM, # 30 tablet, 0 Refills, Maintenance, 01/01/20 16:16:00 EDT, Tablet, [facility]/pharmacy #[id number], 163, cm, 01/01/20 14:39:00 EDT, Height, 86.5, kg, 12/19/19 19:14:00 EDT, Dry Weight Start Date: 01/01/20 Stop Date: 01/29/20 Status: Orderedlithium 600 mg oral capsule 1 capsule = 600 mg, By Mouth, Daily at bedtime, # 30 capsule, 0 Refills, Maintenance, 01/01/20 16:16:00 EDT, Capsule, [facility]/pharmacy #[id number], 163, cm, 01/01/20 [...] Refills, Maintenance, 07/11/20 15:38:00 EDT, REC Powder, [facility]/pharmacy #[id number], 17 Gm By Mouth Daily,Instr:dissolve in water before taking, 163, cm, 05/28/20 11:24:00 EDT, Height, 102... Start Date: 07/11/20 Status: Orderedomeprazole 20 mg oral enteric coated capsule 1 capsule = 20 mg, By Mouth, Daily, # 30 capsule, 5 Refills, Maintenance, 07/07/20 11:44:00 EDT, EC Capsule, [facility]/pharmacy #[id number], 163, cm, 05/28/20 11:24:00 EDT, Height, 102.3, kg, 06/22/20 23:55:00 EDT, Dry Weight Start Date: 07/07/20 Status: Orderedperphenazine 16 mg oral tablet 16 mg, 1, tablet, By Mouth, 2 times a day, # 60 tablet, Refills 0, Tot. Refills 0, Maintenance, 01/01/20 16:18:00 EDT, Route to Pharmacy Electronically, [facility]/pharmacy #[id number], 163, cm, 01/01/20 [...] 01/02/20 4:30:00 EDT, Route to Pharmacy Electronically, [facility]/pharmacy... Start Date: 01/02/20 Status: Orderedsimethicone 125 mg oral capsule See Instructions, TAKE 1 CAPSULE BY MOUTH THREE TIMES A DAY AFTER MEALS AND AT BEDTIME NEEDED, # 48 capsule, 2 Refills, Maintenance, 08/13/20 17:29:00 EST, [facility]/pharmacy #[id number], 163, cm, 05/28/20 11:24:00 EDT, Height, 100, kg, 08/04/20 11:40:00 EST,... Start Date: 08/13/20 Status: OrderedTums 500 mg oral tablet, chewable 1,000 mg, 2, tablet, Chew, Every 6 hours, PRN, # 120 tablet, Refills 11, Tot. Refills 11, Maintenance, for indigestion, 08/06/19 12:12:32 EST, Route to Pharmacy Electronically, [facility]/pharmacy #[id number] Start Date: 08/06/19 Stop Date: 07/01/20 Status: OrderedZyrTEC 10 mg oral tablet 1 tablet = 10 mg, By Mouth, Daily, # 30 tablet, 5 Refills, Maintenance, 07/22/20 15:24:00 EDT, Tablet, [facility]/pharmacy #[id number], 163, cm, 05/28/20 [...] oldest [Reference Range]: 1 Height 163 cm (08/26/20 10:05 AM) Weight 96.8 kg (08/26/20 10:05 AM) Body Mass Index [18.5-24.99] 36.43 *>HHI* (08/26/20 10:05 AM) Blood Pressure [90-138/55-84 mm Hg] 110/62 mm Hg (08/26/20 10:05 AM) Blood pressure sites Arm, left (08/26/20 10:05 AM) Weight Obtained Via Standing scale (08/26/20 10:05 AM) Social History Social History Type Response Tobacco Use: 4 or less cigarettes(le ss than 1/4 pack)/day in last 30 days. Sex Female
--- OUTSIDE RECORDS SUMMARY | 2022-06-29 21:24 | XMS_ITS | Continuity of Care Document ---
:1990 Author Organization [facility] Address [address] [place] [phone]- Care Team Providers Name Role Phone Fatoumata Stokes DO Primary Care Physician [facility] Date[facility]s): 06/12/20 - 06/12/[address] [address]- [facility] Discharge Disposition: A-D/C Home Attending Physician: Kevin Cotter MD Admitting Physician: Kevin Cotter MD Referring Physician: Not on Staff, Referring [...] 13:30:00 EST, Route to Pharmacy Electronically, [facility]/pharmacy #[id number], 159, cm, 11/19/19 8:17:00 EST, Height, 89.7, kg, 11/14/19 9... Start Date: 11/22/19 Status: OrderedAquaphor Healing topical ointment See Instructions, APPLY TO NIPPLE DAILY NEEDED FOR DISCOMFORT, # 50 Gm, 0 Refills, Maintenance, [facility] [id number], 7, APPLY TO NIPPLE DAILY NEEDED FOR DISCOMFORT, 159, cm, 12/10/19 11:02:00 EDT, Height, 86.7, kg, 12/10/19 11:02:00 EDT, Dry Weight Start Date: 12/10/19 Status: Orderedbenztropine 1 mg oral tablet 1 mg, 1, tablet, By Mouth, 2 times a day, # 60 tablet, Refills 0, Tot. Refills 0, Maintenance, 01/01/20 16:15:00 EDT, Route to Pharmacy Electronically, [facility]/pharmacy #[id number], 163, cm, 01/01/20 14:39:00 EDT, Height, 86.5, kg, 12/19/19 19:14:00 EDT, Dry We... Start Date: 01/01/20 Stop Date: 01/31/20 Status: OrderedDepo-Provera Contraceptive 150 mg/mL intramuscular suspension 1 mL = 150 mg, Intramuscular, Every 3 months, # 1 mL, 3 Refills, Maintenance, 05/28/20 11:29:00 EDT,Suspension, [facility], 163, cm, 05/28/20 11:24:00 EDT, [...] patch, 6 Refills, Maintenance, 05/28/20 11:01:00 EDT, [facility]/pharmacy #[id number], 163, cm, 04/03/20 14:59:00 EDT, Height, 88.9, kg, 04/03/20 14:59:00 EDT, DryWeight Start Date: 05/28/20 Status: OrderedEucerin Plus topical lotion 1 application, Topically, 2 times a day, PRN for dry skin, May apply to affected area every 6 hours as needed, up to 2 times/day, # 180 mL, 11 Refills, Maintenance, 08/06/19 12:15:04 EST, Lotion, [facility]/pharmacy #[id number] Start Date: 08/06/19 Status: Orderedferrous sulfate 325 mg oral enteric coated tablet 325 mg, 1, tablet, By Mouth, Daily, # 30 tablet, Refills 11, Tot. Refills 11, Maintenance, 01/08/20 11:07:00 EDT, Route to Pharmacy Electronically, [facility]/pharmacy #[id number], 163, cm, 01/02/20 7:50:00 EDT, Height, 86.5, kg, 12/19/19 19:14:00 EDT, Dry Weight Start Date: 01/08/20 Status: OrderedFlonase 50 mcg/inh nasal spray 1 sprays, Nares, Both, 2 times a day, # 16 Gm, 3 Refills, Maintenance, 04/03/20 15:37:00 EDT, [place],[facility]/pharmacy #[id number], 1 sprays Nares, Both 2 times a day, 163, cm, 04/03/20 14:59:00 EDT, Height, 88.9, kg, 04/03/20 14:59:00 EDT, Dry Weight Start Date: 04/03/20 Status: Orderedlithium 300 mg oral tablet 1 tablet = 300 mg, By Mouth, Daily in AM, # 30 tablet, 0 Refills, Maintenance, 01/01/20 16:16:00 EDT, Tablet, [facility]/pharmacy #[id number], 163, cm, 01/01/20 14:39:00 EDT, Height, 86.5, kg, 12/19/19 19:14:00 EDT, Dry Weight Start Date: 01/01/20 Stop Date: 01/29/20 Status: Orderedlithium 600 mg oral capsule 1 capsule = 600 mg, By Mouth, Daily at bedtime, # 30 capsule, 0 Refills, Maintenance, 01/01/20 16:16:00 EDT, Capsule, [facility]/pharmacy #[id number], 163, cm, 01/01/20 14:39:00 EDT, Height, [...] Maintenance, 01/08/20 11:07:00 EDT, EC Capsule, [facility]/pharmacy #[id number], 163, cm, 01/02/20 7:50:00 EDT, Height, 86.5, kg, 12/19/19 19:14:00 EDT, Dry Weight Start Date: 01/08/20 Status: Orderedperphenazine 16 mg oral tablet 16 mg, 1, tablet, By Mouth, 2 times a day, # 60 tablet, Refills 0, Tot. Refills 0, Maintenance, 01/01/20 16:18:00 EDT, Route to Pharmacy Electronically, [facility]/pharmacy #[id number], 163, cm, 01/01/20 14:39:00 EDT, Height, 86.5, kg, 12/19/19 19:14:00 EDT, Dry W... Start Date: 01/01/20 Status: Orderedperphenazine 8 mg oral tablet 8 mg, 1, tablet, By Mouth, 2 times a day, PRN, Indicated for severe agitation/psychosis and to be taken 8 hours apart, # 60 tablet, Refills 0, Tot. Refills 0, Maintenance, Psychosis, 01/02/20 4:30:00 EDT, Route to Pharmacy Electronically, [facility]/pharmacy... Start Date: 01/02/20 Status: Orderedsimethicone 125 mg oral capsule See Instructions, TAKE 1 CAPSULE BY MOUTH THREE TIMES A DAY AFTER MEALS AND AT BEDTIME NEEDED, # 48 capsule, 2 Refills, Acute, [id number], 163, cm, 05/28/20 11:24:00 EDT, Height, 88.9, kg, 04/03/20 14:59:00 EDT, Dry Weight Start Date: 06/03/20 Status: OrderedTums 500 mg oral tablet, chewable 1,000 mg, 2, tablet, Chew, Every 6 hours, PRN, # 120 tablet, Refills 11, Tot. Refills 11, Maintenance, for indigestion, 08/06/19 12:12:32 EST, Route to Pharmacy Electronically, [facility]/pharmacy #[id number] Start Date: 08/06/19 Stop Date: 07/01/20 Status: OrderedZyrTEC 10 mg oral tablet 1 tablet = 10 mg, By Mouth, Daily, # 30 tablet, 3 Refills, Maintenance, 04/03/20 15:37:00 EDT, Tablet, [facility]/pharmacy #[id number], 163, cm, 04/03/20 14:59:00 EDT, Height, [...] past(Confirmed)1 1Really accelerated when seroquel dose increased Results Radiology Reports Exam Date Time Procedure Performing Provider Status 06/12/20 2:50 PM Chest 2 Views Frontal and Lat Grover Baltazar (Verified) Notes:(Chest 2 Views Frontal and Lat) Reason For Exam: AnginaRESULT: Chest 2 Views Frontal and Lat Chest 2 Views Frontal and Lat Hx of Present Illness: multiple complaints - I have too much water in my stomach and it's cold. I woke up in the middle of the night gasping. COMPARISON: 06/25/2019 FINDINGS: No acute cardiopulmonary process. IMPRESSION: Normal exam. WSN: [id number] Ordering Physician: Nakia Bull Dictated By: Tian Hedrick MD Dictated Date/Time: 06/12/20 2:52 pm Reviewed By: Tian Hedrick MD Signed By: Tian Hedrick MD Signed Date/Time: 06/12/20 2:52 pm Transcribed By: TOMMY Transcribed Date/Time: 06/12/20 2:51 pm Vital Signs Most recent to oldest [Reference Range]: 1 2 Oxygen Saturation [94-100 %] 100 % 100 % (06/12/20 3:41 PM) (06/12/20 12:06 PM) Pulse Rate [55-90 bpm] 100 bpm 78 bpm *H* (06/12/20 12:06 PM) (06/12/20 3:41 PM) Blood Pressure [90-138/55-84 mm Hg] 135/83 mm Hg 110/ 62 mm Hg (06/12/20 3:41 PM) (06/12/20 12:06 PM) Respiratory Rate [16-30 br/min] 20 br/min 18 br/mi n (06/12/20 3:41 PM) (06/12/20 12:06 PM) Temperature [96.8-100.4 DegF] 98.8 DegF (06/12/20 12:06 PM) Mode of Delivery (Oxygen) Room air Room air (06/12/20 3:41 PM) (06/12/20 12:06 PM) Blood pressure sites Arm, left Arm, right (06/12/20 3:41 PM) (06/12/20 12:06 PM) Temperature Route Oral (06/12/20 12:06 PM) Social History Social History Type Response Tobacco Use: 4 or less cigarettes(le ss than 1/4 pack)/day in last 30 days. Sex
--- OUTSIDE RECORDS SUMMARY | 2022-06-29 21:24 | XMS_ITS | Continuity of Care Document ---
:1990 Author Organization [facility] Address [address] [place] [address], [address] [place] [id number]- Care Team Providers Name Role Phone Fatoumata Stokes DO Primary Care Physician [place] [facility] [place] - 03/04[place]20 [facility] [place] [address] [place] [address], [address] [place] [id number]- [facility] Attending Physician: Shannon Castrejon MD Referring Physician: [...] 11/22/19 13:30:00 EST, Route to Pharmacy Electronically, [facility]/pharmacy #[id number], 159, cm, 11/19/19 8:17:00 EST, Height, 89.7, kg, 11/14/19 9... Start Date: 11/22/19 Status: OrderedAquaphor Healing topical ointment See Instructions, APPLY TO NIPPLE DAILY NEEDED FOR DISCOMFORT, # 50 Gm, 0 Refills, Maintenance, [id number], 7, APPLY TO NIPPLE DAILY NEEDED FOR DISCOMFORT, 159, cm, 12/10/19 11:02:00 EDT, Height, 86.7, kg, 12/10/19 11:02:00 EDT, Dry Weight Start Date: 12/10/19 Status: Orderedbenztropine 1 mg oral tablet 1 mg, 1, tablet, By Mouth, 2 times a day, # 60 tablet, Refills 0, Tot. Refills 0, Maintenance, 01/01/20 16:15:00 EDT, [id number], cm, 01/01/20 14:39:00 EDT, Height, 86.5, kg, 12/19/19 19:14:00 EDT, Dry We... Start Date: 01/01/20 Stop Date: 01/31/20 Status: OrderedDepo-Provera Contraceptive 150 mg/mL intramuscular suspension 1 mL = 150 mg, Intramuscular, Every 3 months, # 1 mL, 3 Refills, Maintenance, 12/10/19 11:23:00 EDT,Suspension, [facility], 159, cm, 12/10/19 11:02:00 EDT, Height, 86.7, kg, 12/10/19 11:02:00 EDT, Dry Weight Start Date: 12/10/19 Status: Ordereddocusate sodium 100 mg oral capsule 100 mg, 1, capsule, By Mouth, 2 times a day, # 60 capsule, Refills 11, Tot. Refills 11, Maintenance,01/08/20 11:07:00 EDT, [id number] 163, cm, 01/02/20 7:50:00 EDT, Height, 86.5, kg, 12/19/19 19:14:00 EDT, D... Start Date: 01/08/20 Stop Date: 01/02/21 Status: Orderedestradiol 0.1 mg/24 hours twice weekly transdermal film, extended release 1 patch, Topically, Every Tuesday and , # 8 patch, 6 Refills, Maintenance, 12/10/19 11:19:00 EDT, [facility]/pharmacy #[id number], 159, cm, 12/10/19 11:02:00 EDT, Height, 86.7, kg, 12/10/19 11:02:00 EDT, DryWeight Start Date: 12/10/19 Status: OrderedEucerin Plus topical lotion 1 application, Topically, 2 times a day, PRN for dry skin, May apply to affected area every 6 hours as needed, up to 2 times/day, # 180 mL, 11 Refills, Maintenance, 08/06/19 12:15:04 EST, Lotion, [facility]/pharmacy #[id number] Start Date: 08/06/19 Status: Orderedferrous sulfate 325 mg oral enteric coated tablet 325 mg, 1, tablet, By Mouth, Daily, # 30 tablet, Refills 11, Tot. Refills 11, Maintenance, 01/08/20 11:07:00 EDT, Route to Pharmacy Electronically, [facility]/pharmacy #[id number], 163, cm, 01/02/20 7:50:00 EDT, Height, 86.5, kg, 12/19/19 19:14:00 EDT, Dry Weight Start Date: 01/08/20 Status: Orderedlithium 300 mg oral tablet 1 tablet = 300 mg, By Mouth, Daily in AM, # 30 tablet, 0 Refills, Maintenance, 01/01/20 16:16:00 EDT, Tablet, [facility]/pharmacy #[id number], 163, cm, 01/01/20 14:39:00 EDT, Height, 86.5, kg, 12/19/19 19:14:00 EDT, Dry Weight Start Date: 01/01/20 Stop Date: 01/29/20 Status: Orderedlithium 600 mg oral capsule 1 capsule = 600 mg, By Mouth, Daily at bedtime, # 30 capsule, 0 Refills, Maintenance, 01/01/20 16:16:00 EDT, Capsule, [facility]/pharmacy #[id number], 163, cm, 01/01/20 14:39:00 [...] Refills, Maintenance, 01/08/20 11:07:00 EDT, EC Capsule, [facility]/pharmacy #[id number], 163, cm, 01/02/20 7:50:00 EDT, Height, 86.5, kg, 12/19/19 19:14:00 EDT, Dry Weight Start Date: 01/08/20 Status: Orderedperphenazine 16 mg oral tablet 16 mg, 1, tablet, By Mouth, 2 times a day, # 60 tablet, Refills 0, Tot. Refills 0, Maintenance, 01/01/20 16:18:00 EDT, Route to Pharmacy Electronically, [facility]/pharmacy #[id number], 163, cm, 01/01/20 14:39:00 [...] 01/02/20 4:30:00 EDT, Route to Pharmacy Electronically, [facility]/pharmacy... Start Date: 01/02/20 Status: OrderedTums 500 mg oral tablet, chewable 1,000 mg, 2, tablet, Chew, Every 6 hours, PRN, # 120 tablet, Refills 11, Tot. Refills 11, Maintenance, for indigestion, 08/06/19 12:12:32 EST, Route to Pharmacy Electronically, [facility]/pharmacy #[id number] Start Date: 08/06/19 Stop [...] Most recent to oldest [Reference Range]: 1 Weight 88.8 kg (02/26/20 11:15 AM) Blood Pressure [90-138/55-84 mm Hg] 124/76 mm Hg (02/26/20 11:15 AM) Blood pressure sites Arm, right (02/26/20 11:15 AM) Weight Obtained Via Standing scale (02/26/20 11:15 AM) Social History Social History Type Response Smoking Status Light tobacco smoker entered on: 09/26/14 Sex
--- OUTSIDE RECORDS SUMMARY | 2022-06-29 21:24 | XMS_ITS | Continuity of Care Document ---
:1990 Author Organization [facility] Address [address] [place] [phone]- Care Team Providers Name Role Phone Fatoumata Stokes DO Primary Care Physician [facility] Date[facility]): [facility] - 04/01/[address] [address]- [facility] Discharge Disposition: A-D/C Home Attending Physician: Michele [...] 11/22/19 13:30:00 EST, Route to Pharmacy Electronically, [facility]/pharmacy #[id number], 159, cm, 11/19/19 8:17:00 EST, Height, 89.7, kg, 11/14/19 9... Start Date: 11/22/19 Status: OrderedAquaphor Healing topical ointment See Instructions, APPLY TO NIPPLE DAILY NEEDED FOR DISCOMFORT, # 50 Gm, 0 Refills, Maintenance, [facility] STORE [id number], 7, APPLY TO NIPPLE DAILY NEEDED FOR DISCOMFORT, 159, cm, 12/10/19 11:02:00 EDT, Height, 86.7, kg, 12/10/19 11:02:00 EDT, Dry Weight Start Date: 12/10/19 Status: Orderedbenztropine 1 mg oral tablet 1 mg, 1, tablet, By Mouth, 2 times a day, # 60 tablet, Refills 0, Tot. Refills 0, Maintenance, 01/01/20 16:15:00 EDT, Route to Pharmacy Electronically, [facility]/pharmacy #[id number], 163, cm, 01/01/20 14:39:00 EDT, Height, 86.5, kg, 12/19/19 19:14:00 EDT, Dry We... Start Date: 01/01/20 Stop Date: 01/31/20 Status: OrderedDepo-Provera Contraceptive 150 mg/mL intramuscular suspension 1 mL = 150 mg, Intramuscular, Every 3 months, # 1 mL, 3 Refills, Maintenance, 12/10/19 11:23:00 EDT,Suspension, [facility], 159, cm, 12/10/19 11:02:00 EDT, Height, 86.7, kg, 12/10/19 11:02:00 EDT, Dry Weight Start Date: 12/10/19 Status: Ordereddocusate sodium 100 mg oral capsule 100 mg, 1, capsule, By Mouth, 2 times a day, # 60 capsule, Refills 11, Tot. Refills 11, Maintenance,01/08/20 11:07:00 EDT, Route to Pharmacy Electronically, [facility]/pharmacy #[id number], 163, cm, 01/02/20 7:50:00 EDT, Height, 86.5, kg, 12/19/19 19:14:00 EDT, D... Start Date: 01/08/20 Stop Date: 01/02/21 Status: Orderedestradiol 0.1 mg/24 hours twice weekly transdermal film, extended release 1 patch, Topically, Every Tuesday and , # 8 patch, 6 Refills, Maintenance, 12/10/19 11:19:00 EDT, [facility]/pharmacy #[id number], 159, cm, 12/10/19 11:02:00 EDT, Height, 86.7, kg, 12/10/19 11:02:00 EDT, DryWeight Start Date: 12/10/19 Status: OrderedEucerin Plus topical lotion 1 application, Topically, 2 times a day, PRN for dry skin, May apply to affected area every 6 hours as needed, up to 2 times/day, # 180 mL, 11 Refills, Maintenance, 08/06/19 12:15:04 EST, Lotion, [facility]/pharmacy #[id number] Start Date: 08/06/19 Status: Orderedferrous sulfate 325 mg oral enteric coated tablet 325 mg, 1, tablet, By Mouth, Daily, # 30 tablet, Refills 11, Tot. Refills 11, Maintenance, 01/08/20 11:07:00 EDT, Route to Pharmacy Electronically, [facility]/pharmacy #[id number], 163, cm, 01/02/20 7:50:00 EDT, Height, 86.5, kg, 12/19/19 19:14:00 EDT, Dry Weight Start Date: 01/08/20 Status: OrderedFlonase 50 mcg/inh nasal spray 1 sprays, Nares, Both, 2 times a day, # 16 Gm, 0 Refills, Maintenance, 03/19/20 8:49:00 EDT, [place], [facility]/pharmacy #[id number], 1 sprays Nares, Both 2 times a day, 163, cm, 01/02/20 7:50:00 EDT, Height, 86.5, kg, 12/19/19 19:14:00 EDT, Dry Weight Start Date: 03/19/20 Status: Orderedlithium 300 mg oral tablet 1 tablet = 300 mg, By Mouth, Daily in AM, # 30 tablet, 0 Refills, Maintenance, 01/01/20 16:16:00 EDT, Tablet, [facility]/pharmacy #[id number], 163, cm, 01/01/20 14:39:00 EDT, Height, 86.5, kg, 12/19/19 19:14:00 EDT, Dry Weight Start Date: 01/01/20 Stop Date: 01/29/20 Status: Orderedlithium 600 mg oral capsule 1 capsule = 600 mg, By Mouth, Daily at bedtime, # 30 capsule, 0 Refills, Maintenance, 01/01/20 16:16:00 EDT, Capsule, [facility]/pharmacy #[id number], 163, cm, 01/01/20 14:39:00 EDT, [...] Refills, Maintenance, 01/08/20 11:07:00 EDT, EC Capsule, [facility]/pharmacy #[id number], 163, cm, 01/02/20 7:50:00 EDT, Height, 86.5, kg, 12/19/19 19:14:00 EDT, Dry Weight Start Date: 01/08/20 Status: Orderedperphenazine 16 mg oral tablet 16 mg, 1, tablet, By Mouth, 2 times a day, # 60 tablet, Refills 0, Tot. Refills 0, Maintenance, 01/01/20 16:18:00 EDT, Route to Pharmacy Electronically, [facility]/pharmacy #[id number], 163, cm, 01/01/20 14:39:00 EDT, Height, 86.5, kg, 12/19/19 19:14:00 EDT, Dry W... Start Date: 01/01/20 Status: Orderedperphenazine 8 mg oral tablet 8 mg, 1, tablet, By Mouth, 2 times a day, PRN, Indicated for severe agitation/psychosis and to be taken 8 hours apart, # 60 tablet, Refills 0, Tot. Refills 0, Maintenance, Psychosis, 01/02/20 4:30:00 EDT, [facility] Start Date: 01/02/20 Status: OrderedTums 500 mg oral tablet, chewable 1,000 mg, 2, tablet, Chew, Every 6 hours, PRN, # 120 tablet, Refills 11, Tot. Refills 11, Maintenance, for indigestion, 08/06/19 12:12:32 EST, Route to Pharmacy Electronically, [facility]/pharmacy #[id number] Start Date: 08/06/19 Stop Date: 07/01/20 Status: OrderedZyrTEC 10 mg oral tablet 1 tablet = 10 mg, By Mouth, Daily, # 30 tablet, 0 Refills, Maintenance, 03/19/20 8:47:00 EDT, Tablet, [id number], 163, cm, 01/02/20 7:50:00 EDT, Height, 86.5, kg, 12/19/19 19:14:00 EDT, Dry Weight Start Date: 03/19/20 Status: Ordered Problem List Condition Effective Dates [...] Saturation [94-100 %] 100 % 100 % (04/01/20 9:48 PM) (04/01/20 7:06 PM) Pulse Rate [55-90 bpm] 74 bpm 74 bpm (04/01/20 9:48 PM) (04/01/20 7:06 PM) Blood Pressure [90-138/55-84 mm Hg] 105/62 mm Hg 96/7 8 mm Hg (04/01/20 9:48 PM) (04/01/20 7:06 PM) Respiratory Rate [16-30 br/min] 18 br/min 20 br/mi n (04/01/20 9:48 PM) (04/01/20 7:06 PM) Temperature [96.8-100.4 DegF] 99.6 DegF (04/01/20 7:06 PM) Mode of Delivery (Oxygen) Room air Room air (04/01/20 9:48 PM) (04/01/20 7:06 PM) Blood pressure sites Arm, right Arm, left (04/01/20 9:48 PM) (04/01/20 7:06 PM) Temperature Route Oral (04/01/20 7:06 PM) Weight Obtained Via UTO (04/01/20 7:10 PM) Dry Weight Obtained Via UTO (04/01/20 7:10 PM) Social History Social History Type Response Smoking Status Light tobacco smoker entered on: 09/26/14 Sex
--- OUTSIDE RECORDS SUMMARY | 2022-06-29 21:24 | XMS_ITS | Continuity of Care Document ---
:1990 Author Organization [facility] Address [address] [place] [id number]- Care Team Providers Name Role Phone Fatoumata Stokes DO Primary Care Physician [facility] Date[facility]s): 05/26/21 - 05/26/[address] [address]- Encounter Diagnosis Paranoid delusion (Final) - 05/26/21 Suicidal ideation (Final) - 05/26/21 Auditory hallucination (Final) - 05/26/21 Visual hallucination (Final) - 05/26/21 Discharge Disposition: A-D/C Home Attending Physician: Chad Lozoya MD Admitting Physician: Chad Lozoya MD Referring Physician: Not on Staff, Referring [...] 11/22/19 13:30:00 EST, Route to Pharmacy Electronically, [facility]/pharmacy #[id number], 159, cm, 11/19/19 8:17:00 EST, [...] 02/16/21 14:03:00 EDT, [facility] STORE 81602, 164, cm, 10/14/20 10:13:00 EST, Height, 112, kg, 10/14/20 10:13:00 EST, Dry Weight Start Date: 02/16/21 Status: Ordereddocusate sodium 100 mg oral capsule 1 capsule, By Mouth, 2 times a day, # 60 capsule, 5 Refills, Maintenance, 01/12/21 20:05:00 EDT[facility] 164, cm, 10/14/20 10:13:00 EST, Height, 112, [...] 5 Refills, Maintenance, [facility] 94964, 30, USE 1 SPRAY IN EACH NOSTRIL [...] Refills, Maintenance, 04/17/21 13:04:00 EDT, [facility], 164, cm, 04/07/21 15:35:00 EDT, Height, 112, [...] to Pharmacy Electronically, [facility] 77206, 164, cm,10/14/20 10:13:00 EST, Height, 112, kg, 10/14/20... Start Date: 02/19/21 Status: Orderedsimethicone 125 mg oral capsule See Instructions, TAKE 1 CAPSULE BY MOUTH THREE TIMES A DAY AFTER MEALS AND AT BEDTIME NEEDED, # 48 capsule, 11 Refills, [facility], 164, cm, 04/07/21 15:35:00 EDT, Height, 112, [...] 2 Oxygen Saturation [94-100 %] 98 % (05/26/21 12:11 PM) Pulse Rate [55-90 bpm] 107 bpm 84 bpm *H* (05/26/21 12:11 PM) (05/26/21 5:56 PM) Blood Pressure [90-138/55-84 mm Hg] 144/95 mm Hg 148/ 87 mm Hg *H* *H* (05/26/21 5:56 PM) (05/26/21 12:11 PM) Respiratory Rate [16-30 br/min] 18 br/min 199 br/m in (05/26/21 5:56 PM) *H* (05/26/21 12:11 PM) Temperature [96.8-100.4 DegF] 98.2 DegF (05/26/21 12:11 PM) Mode of Delivery (Oxygen) Room air (05/26/21 12:11 PM) Blood pressure sites Arm, right (05/26/21 5:56 PM) Temperature Route Oral (05/26/21 12:11 PM) Social History Social History Type Response Tobacco Use: 4 or less cigarettes(le ss than 1/4 pack)/day in last 30 days. Sex Female
--- OUTSIDE RECORDS SUMMARY | 2022-06-29 21:24 | XMS_ITS | Continuity of Care Document ---
:1990 Author Organization [facility] Address [address] [place] [id number]- Care Team Providers Name Role Phone Fatoumata Stokes DO Primary Care Physician [facility] Date(s): 06/11/22 - 06/12/[address] [address]- Discharge Disposition: A-D/C Home Attending Physician: Lacie Celeste MD Admitting Physician: Dao Gardner MD, Lacie Referring Physician: Not on Staff, Referring MD [...] 05/28/21 7:42:00 EDT, Route to Pharmacy Electronically, [facility]/pharmacy #[id number], 164, cm, 04/07/21 15:35:00 EDT, Height, 112, kg, 10/14/20 10... Start Date: 05/28/21 Status: Orderedbenztropine 1 mg oral tablet 1 mg, 1, tablet, By Mouth, 2 times a day, # 60 tablet, Refills 0, Tot. Refills 0, Maintenance, 01/01/20 16:15:00 EDT, Route to Pharmacy Electronically, [facility]/pharmacy #[id number], 163, cm, 01/01/20 14:39:00 EDT, Height, 86.5, kg, 12/19/19 19:14:00 EDT, Dry We... Start Date: 01/01/20 Stop Date: 01/31/20 Status: Orderedcetirizine 10 mg oral tablet 1 tablet, By Mouth, Daily, # 30 tablet, 2 Refills, 04/28/22 15:16:00 EDT, [id number], 163, cm, 09/24/21 16:23:00 EST, Height, 112, kg, 10/14/20 10:13:00 EST, Dry Weight Start Date: 04/28/22 Status: Ordereddocusate sodium 100 mg oral capsule 1 capsule, By Mouth, 2 times a day, # 60 capsule, 5 Refills, [facility] STORE 74287, 163, cm, 09/24/21 16:23:00 EST, Height, 112, kg, 10/14/20 10:13:00 EST, Dry Weight Start Date: 02/03/22 Status: OrderedEstradiol Patch 0.1 mg/24 hours twice weekly transdermal film, extended release See Instructions, APPLY 1 PATCH TOPICALLY EVERY TUESDAY & TUESDAY, # 24 patch, 4 Refills, [facility] STORE 47600, 84, APPLY 1 PATCH TOPICALLY EVERY TUESDAY & TUESDAY, 163, cm, 09/24/21 16:23:00 EST, Height, 112, kg, 10/14/20 10:13:00 EST, Dry Weight Start Date: 02/11/22 Status: Orderedferrous sulfate 325 mg oral enteric coated tablet 1, tablet, By Mouth, Every other day, due for labs, # 90 tablet, Refills 1, Tot. Refills 1, 228:11:00 EDT, [employer], 163, cm, 09/24/21 16:23:00 EST, Height, 112, kg, 10/14/20 10:13:00 EST, Dry Weight Start Date: 03/04/22 Status: Orderedlithium 300 mg oral capsule 1 capsule = 300 mg, By Mouth, Daily in AM, Maintenance, 05/25/22 18:23:00 EDT, Capsule Start Date: 05/25/22 Status: Orderedlithium 600 mg oral capsule 1 capsule = 600 mg, By Mouth, Daily at bedtime, # 30 capsule, 0 Refills, Maintenance, 01/01/20 16:16:00 EDT, Capsule, [facility]/pharmacy #[id number], 163, cm, 01/01/20 14:39:00 EDT, Height, 86.5, kg, 12/19/19 19:14:00 EDT, Dry Weight Start Date: 01/01/20 Stop Date: 03/01/20 Status: OrderedmedroxyPROGESTERone 150 mg/mL intramuscular suspension 1 mL, Intramuscular, Every 3 months, # 1 mL, 3 Refills, Soft Stop, 03/13/21 13:05:00 EDT, [facility]/pharmacy #[id number], 164, cm, 03/13/21 9:51:00 EDT, Height, 112, kg, 10/14/20 10:13:00 EST, Dry Weight Start Date: 03/13/21 Status: OrderedMiraLax oral powder for reconstitution = 17 Gm, By Mouth, Daily, dissolve in water before taking, # 255 Gm, 0 Refills, Maintenance, 07/11/20 15:38:00 EDT, REC Powder, [facility]/pharmacy #[id number], 17 Gm By Mouth Daily,Instr:dissolve in water before taking, 163, cm, 05/28/20 11:24:00 EDT, Height, 102... Start Date: 07/11/20 Status: Orderedomeprazole 20 mg oral enteric coated capsule 1 capsule, By Mouth, Daily, # 90 capsule, 0 Refills, [facility] STORE 27164, 163, cm, 09/24/21 16:23:00 EST, Height, 112, kg, 10/14/20 10:13:00 EST, Dry Weight Start Date: 03/04/22 Status: Orderedondansetron 4 mg oral tablet, disintegrating 1 tablet = 4 mg, By Mouth, Every 8 hours, PRN as needed for nausea/vomiting, # 8 tablet, 0 Refills, Maintenance, 06/11/22 22:47:00 EDT, DIS Tablet, [facility]/pharmacy #[id number], Partial fill upon patient requestif the prescription is for a schedule II opioid d... Start Date: 06/11/22 Status: Orderedperphenazine 16 mg oral tablet 16 mg, 1, tablet, By Mouth, 2 times a day, # 60 tablet, Refills 0, Tot. Refills 0, Maintenance, 01/01/20 16:18:00 EDT, Route to Pharmacy Electronically, [facility]/pharmacy #[id number], 163, cm, 01/01/20 14:39:00 EDT, Height, 86.5, kg, 12/19/19 19:14:00 EDT, Dry W... Start Date: 01/01/20 Status: Orderedperphenazine 4 mg oral tablet 4 mg, 1, tablet, By Mouth, 2 times a day Start Date: 05/25/22 Status: Orderedperphenazine 8 mg oral tablet 8 mg, 1, tablet, By Mouth, Daily, at 12 PM Start Date: 05/25/22 Status: OrderedSenna-Time 8.6 mg oral tablet 1 tablet, By Mouth, Daily at bedtime, PRN NEEDED FOR CONSTIPATION, # 30 tablet, 3 Refills, Maintenance, 06/10/22 17:26:00 EDT, [facility] STORE 22665, 169, cm, 05/25/22 15:07:00 EDT, Height, 95, kg, 05/25/22 15:07:00 EDT, Dry Weight Start Date: 06/10/22 Status: Orderedsimethicone 125 mg oral capsule See Instructions, TAKE 1 CAPSULE BY MOUTH THREE TIMES A DAY AFTER MEALS AND AT BEDTIME NEEDED, # 48 capsule, 11 Refills, [facility] STORE 09284, 163, cm, 09/24/21 16:23:00 EST, Height, 112, [...] Exam Date Time Procedure Performing Provider Status 06/11/22 6:34 PM Chest 2 Views Frontal and Lat Doug Mcgrath; Au th (Verified) Notes:(Chest 2 Views Frontal and Lat) Reason For Exam: Shortness of Breath, Fever;Other:RESULT: Chest 2 Views Frontal and Lat Chest 2 Views Frontal and Lat Hx of Present Illness: nausea vomitting x 1 day. pt not good historian; Reason: Other:; Shortness ofBreath, Fever; Clinical Question(s): Pneumonia COMPARISON: Chest radiograph 07/25/2021. FINDINGS: LINES AND TUBES: None. LUNGS AND PLEURA: Clear lungs. Normal pulmonary vascularity. No pleural effusion. No pneumothorax. HEART, MEDIASTINUM AND JUANA: Heart is normal in size. Normal upper mediastinal and hilar contour. BONES AND SOFT TISSUES: No acute abnormality. IMPRESSION: No acute abnormality. WSN: [id number] Ordering Physician: Jolanta Willingham Dictated By: Xiomara Hernandez MD Dictated Date/Time: 06/11/22 6:35 pm Reviewed By: Xiomara Hernandez MD Signed By: Xiomara Hernandez MD Signed Date/Time: 06/11/22 6:35 pm Transcribed By: TOMMY Transcribed Date/Time: 06/11/22 6:35 pm Vital Signs Most recent to oldest 1 2 3 [Reference Range]: Oxygen Saturation [94-100 %] 100 % 100 % 97 % (06/12/22 8:12 AM) (06/11/22 11:53 PM) (06/11/22 9: 14 PM) Pulse Rate [55-90 bpm] 79 bpm 74 bpm 64 bpm (06/12/22 8:12 AM) (06/11/22 11:53 PM) (06/11/22 9: 14 PM) Blood Pressure [90-138/55-84 143/90 mm Hg 129/73 mm Hg 138 /83 mm Hg mm Hg] *H* (06/11/22 11:53 PM) (06/11/22 9:14 PM) (06/12/22 8:12 AM) Respiratory Rate [16-30 15 br/min 18 br/min 18 br/mi n br/min] *L* (06/11/22 9:14 PM) (06/11/22 5:14 PM) (06/12/22 8:12 AM) Temperature [96.8-100.4 DegF] 98.6 DegF 98.3 DegF 99 .6 DegF (06/12/22 8:12 AM) (06/11/22 11:53 PM) (06/11/22 5: 14 PM) Mode of Delivery (Oxygen) Room air Room air Room a ir (06/12/22 8:12 AM) (06/11/22 11:53 PM) (06/11/22 9: 14 PM) Blood pressure sites Arm, left Arm, right Arm, right (06/12/22 8:12 AM) (06/11/22 11:53 PM) (06/11/22 9: 14 PM) Temperature Route Oral Oral Oral (06/12/22 8:12 AM) (06/11/22 11:53 PM) (06/11/22 5: 14 PM) Social History Social History Type Response Tobacco Use: 4 or less cigarettes(le ss than 1/4 pack)/day in last 30 days. Sex Note BHSPowerscribe , CIS S: TRANSCRIBE Xiomara Hernandez MD: VERIFY Event Display: Result: Authored Date: [id number] Chest 2 Views Frontal and Lat Hx of Present Illness: nausea vomitting x 1 day. pt not good historian; Reason: Other:; Shortness ofBreath, Fever; Clinical Question(s): Pneumonia COMPARISON: Chest radiograph 07/25/2021. FINDINGS: LINES AND TUBES: None. LUNGS AND PLEURA: Clear lungs. Normal pulmonary vascularity. No pleural effusion. No pneumothorax. HEART, MEDIASTINUM AND JUANA: Heart is normal in size. Normal upper mediastinal and hilar contour. BONES AND SOFT TISSUES: No acute abnormality. IMPRESSION: No acute abnormality. WSN: [id number] Ordering Physician: Jolanta Willingham Dictated By: Xiomara Hernandez MD Dictated Date/Time: 06/11/22 6:35 pm Reviewed By: Xiomara Hernandez MD Signed By: Xiomara Hernandez MD Signed Date/Time: 06/11/22 6:35 pm Transcribed By: TOMMY Transcribed Date/Time: 06/11/22 6:35 pm Care Team PersonnelName: IlirFatoumata gomes DO Address: [address] [place] [address] Adult & Pediatric Medicine [place], [place] [address]
--- OUTSIDE RECORDS SUMMARY | 2022-06-29 21:24 | XMS_ITS | Continuity of Care Document ---
:1990 Author Organization [facility] Address [address] [place] [address], [address] [place] [id number]- Care Team Providers Name Role Phone Fatoumata Stokes DO Primary Care Physician [facility]): [facility] [address] [place] [address], [address] [place] [id number] Attending Physician: Lexx TORRES, Ashley Rock Referring Physician: Martin Lanza MD Allergies, Adverse Reactions, Alerts Substance Reaction [...] Refills, Maintenance, [facility] 41854, 7, APPLY TO NIPPLE DAILY NEEDED FOR DISCOMFORT, 159, cm, 12/10/19 11:02:00 EDT, Height, 86.7, kg, 12/10/19 11:02:00 EDT, Dry Weight Start Date: 12/10/19 Status: Orderedbenztropine 1 mg oral tablet 1 mg, 1, tablet, By Mouth, 2 times a day, # 60 tablet, Refills 0, Tot. Refills 0, Maintenance, 01/01/20 16:15:00 EDT, Route to Pharmacy Electronically, [facility]/pharmacy #[id number], 163, cm, 01/01/20 14:39:00 EDT, Height, 86.5, kg, 12/19/19 19:14:00 EDT, Dry We... Start Date: 01/01/20 Stop Date: 01/31/20 Status: OrderedDepo-Provera Contraceptive 150 mg/mL intramuscular suspension 1 mL = 150 mg, Intramuscular, Every 3 months, # 1 mL, 3 Refills, Maintenance, 08/26/20 9:54:00 EST, Suspension, [facility], 163, cm, 05/28/20 11:24:00 EDT, Height, 100, kg, 08/04/20 11:40:00 EST, Dry Weight Start Date: 08/26/20 Status: Ordereddocusate sodium 100 mg oral capsule 100 mg, 1, capsule, By Mouth, 2 times a day, # 60 capsule, Refills 11, Tot. Refills 11, Maintenance,01/08/20 11:07:00 EDT, Route to Pharmacy Electronically, [facility] [...] Gm, 5 Refills, Maintenance, 07/04/20 9:01:00 EDT, [place], [facility]/pharmacy #[id number], 1 sprays [...] capsule, 2 Refills, Maintenance, 08/13/20 17:29:00 EST, [facility]/pharmacy #[id number], 163, cm, [...]
--- OUTSIDE RECORDS SUMMARY | 2022-06-29 21:24 | XMS_ITS | Continuity of Care Document ---
:1990 Author Organization [facility] Address [address] [place] [address], [address] [place] [id number]- Care Team Providers Name Role Phone Fatoumata Stokes DO Primary Care Physician Encounter [facility] Date(s): 02/11/22 - 03/13/22 [facility] [address] [address] Attending Physician: Jada Torres Admitting Physician: Jada [...] 23-valent vaccine 07/11/13 Given Meningococcal Polysaccharide Vaccine 4/2/13 Given Meningococcal Conjugate Vaccine 12/26/12 Recorded Meningococcal [...] Refills, [facility] ST[facility] 68083, 163, cm, 09/24/21 16:23:00 EST, Height, 112, kg, 10/14/20 10:13:00 EST, Dry Weight Start Date: 12/28/21 Status: Ordereddocusate sodium 100 mg oral capsule 1 capsule, By Mouth, 2 times a day, # 60 capsule, 5 Refills, [facility] 16833, 163, cm, 09/24/21 16:23:00 EST, Height, 112, kg, 10/14/20 10:13:00 EST, Dry Weight Start Date: 02/03/22 Status: OrderedEstradiol Patch 0.1 mg/24 hours twice weekly transdermal film, extended release See Instructions, APPLY 1 PATCH TOPICALLY EVERY TUESDAY & TUESDAY, # 24 patch, 4 Refills, [facility] 36291, 84, APPLY 1 PATCH TOPICALLY EVERY TUESDAY & TUESDAY, 163, cm, 09/24/21 16:23:00 EST, Height, 112, kg, 10/14/20 10:13:00 EST, Dry Weight Start Date: 02/11/22 Status: Orderedferrous sulfate 325 mg oral enteric coated tablet 1, tablet, By Mouth, Every other day, due for labs, # 90 tablet, Refills 1, Tot. Refills 1, :11:00 EDT, [id number] 163, cm, 09/24/21 16:23:00 EST, Height, 112, kg, 10/14/20 10:13:00 EST, Dry Weight Start Date: 03/04/22 Status: Orderedfluticasone 50 mcg/inh nasal spray See Instructions, USE 1 SPRAY IN EACH NOSTRIL TWICE A DAY, # 16 mL, 5 Refills, Maintenance, [facility] [address]502, 30, USE 1 SPRAY IN EACH NOSTRIL TWICE A DAY, 164, cm, 10/14/20 10:13:00 EST, Height, 112, kg, 10/14/20 10:13:00 EST, Dry Weight Start Date: 03/06/21 Status: Orderedlithium 300 mg oral tablet 1 tablet = 300 mg, By Mouth, Daily in AM, # 30 tablet, 0 Refills, Maintenance, 01/01/20 16:16:00 EDT, Tablet, [id number], 163, cm, 01/01/20 14:39:00 [...] 3 MONTHS, # 1 mL, 3 Refills, [facility], 164, cm, 05/28/21 13:07:00 [...] Mouth, Daily, # 90 capsule, 0 Refills, [facility] 47815, 163, cm, 09/24/21 16:23:00 EST, Height, 112, [...] [facility]/pharmacy... Start Date: 01/02/20 Status: OrderedSenna-Time 8.6 mg oral tablet 1 tablet, By Mouth, Daily at bedtime, PRN NEEDED FOR CONSTIPATION, # 60 tablet, 1 Refills, [facility] 85028, 163, cm, 09/24/21 16:23:00 EST, Height, 112, kg, 10/14/20 10:13:00 EST, Dry Weight Start Date: 12/28/21 Status: Orderedsimethicone 125 mg oral capsule See Instructions, TAKE 1 CAPSULE BY MOUTH THREE TIMES A DAY AFTER MEALS AND AT BEDTIME NEEDED, # 48 capsule, 11 Refills, [facility] 63528, 163, cm, 09/24/21 16:23:00 EST, Height, 112, [...]
--- OUTSIDE RECORDS SUMMARY | 2022-06-29 21:24 | XMS_ITS | Continuity of Care Document ---
:1990 Author Organization [facility] Address [address] [place] [address]- Care Team Providers Name Role Phone Fatoumata Stokes DO Primary Care Physician [facility]counter [facility] Date(s): 03/07/20 - 04/09/20 [facility] [address] [place] [address]- [facility] Attending Physician: Fatoumata Stokes DO Allergies, [...] 13:30:00 EST, Route to Pharmacy Electronically, [facility]/pharmacy #[id number], 159, cm, 11/19/19 8:17:00 EST, Height, 89.7, kg, 11/14/19 9... Start Date: 11/22/19 Status: OrderedAquaphor Healing topical ointment See Instructions, APPLY TO NIPPLE DAILY NEEDED FOR DISCOMFORT, # 50 Gm, 0 Refills, Maintenance, [facility] STORE [facility]39, 7, APPLY TO NIPPLE DAILY NEEDED FOR [...] mL, 3 Refills, Maintenance, 12/10/19 11:23:00 EDT,Suspension, [facility], 159, cm, 12/10/19 11:02:00 EDT, Height, 86.7, kg, 12/10/19 11:02:00 EDT, Dry Weight Start Date: 12/10/19 Status: Ordereddocusate sodium 100 mg oral capsule 100 mg, 1, capsule, By Mouth, 2 times a day, # 60 capsule, Refills 11, Tot. Refills 11, Maintenance,01/08/20 11:07:00 EDT, [id number], 163, cm, 01/02/20 7:50:00 EDT, Height, 86.5, kg, 12/19/19 19:14:00 EDT, D... Start Date: 01/08/20 Stop Date: 01/02/21 Status: Orderedestradiol 0.1 mg/24 hours twice weekly transdermal film, extended release 1 patch, Topically, Every Tuesday and , # 8 patch, 6 Refills, Maintenance, 12/10/19 11:19:00 EDT, [facility]/pharmacy #[id number], 159, cm, 12/10/19 11:02:00 EDT, Height, 86.7, kg, 12/10/19 11:02:00 EDT, DryWeight Start Date: 12/10/19 Status: OrderedEucerin Plus topical lotion 1 application, Topically, 2 times a day, PRN for dry skin, May apply to affected area every 6 hours as needed, up to 2 times/day, # 180 mL, 11 Refills, Maintenance, 08/06/19 12:15:04 EST, Lotion, [facility]/pharmacy #[id number] Start Date: 08/06/19 Status: Orderedferrous sulfate 325 mg oral enteric coated tablet 325 mg, 1, tablet, By Mouth, Daily, # 30 tablet, Refills 11, Tot. Refills 11, Maintenance, 01/08/20 11:07:00 EDT, [facility], [id number], 163, cm, 01/02/20 7:50:00 EDT, Height, 86.5, kg, 12/19/19 19:14:00 EDT, Dry Weight Start Date: 01/08/20 Status: OrderedFlonase 50 mcg/inh nasal spray 1 sprays, Nares, Both, 2 times a day, # 16 Gm, 3 Refills, Maintenance, 04/03/20 15:37:00 EDT, [place],[facility]/pharmacy #[id number], 1 sprays Nares, Both 2 times a day, 163, cm, 04/03/20 14:59:00 EDT, Height, 88.9, kg, 04/03/20 14:59:00 EDT, Dry Weight Start Date: 04/03/20 Status: Orderedlithium 300 mg oral tablet 1 tablet = 300 mg, By Mouth, Daily in AM, # 30 tablet, 0 Refills, Maintenance, 01/01/20 16:16:00 EDT, Tablet, [facility]/pharmacy #[id number], 163, cm, 01/01/20 14:39:00 EDT, Height, 86.5, kg, 12/19/19 19:14:00 EDT, Dry Weight Start Date: 01/01/20 Stop Date: 01/29/20 Status: Orderedlithium 600 mg oral capsule 1 capsule = 600 mg, By Mouth, Daily at bedtime, # 30 capsule, 0 Refills, Maintenance, 01/01/20 16:16:00 EDT, Capsule, [facility]/pharmacy #[id number], 163, cm, 01/01/20 14:39:00 EDT, [...] Refills, Maintenance, 01/08/20 11:07:00 EDT, EC Capsule, [facility]/pharmacy #[id number], 163, cm, 01/02/20 7:50:00 EDT, Height, 86.5, kg, 12/19/19 19:14:00 EDT, Dry Weight Start Date: 01/08/20 Status: Orderedperphenazine 16 mg oral tablet 16 mg, 1, tablet, By Mouth, 2 times a day, # 60 tablet, Refills 0, Tot. Refills 0, Maintenance, 01/01/20 16:18:00 EDT, Route to Pharmacy Electronically, [facility]/pharmacy #[id number], 163, cm, 01/01/20 14:39:00 EDT, [...] 4:30:00 EDT, Route to Pharmacy Electronically, [facility]/pharmacy... Start Date: 01/02/20 Status: Orderedsimethicone 125 mg oral capsule 1 capsule = 125 mg, By Mouth, 3 times a day after meals and bedtime, PRN Other, prn gas, # 48 capsule, 2 Refills, Maintenance, 04/03/20 15:26:00 EDT, Capsule, [facility]/pharmacy #[id number], 163, cm, 04/03/20 14:59:00 EDT, Height, 88.9, kg, 04/03/20 14:59:00 EDT,... Start Date: 04/03/20 Status: OrderedTums 500 mg oral tablet, chewable 1,000 mg, 2, tablet, Chew, Every 6 hours, PRN, # 120 tablet, Refills 11, Tot. Refills 11, Maintenance, for indigestion, 08/06/19 12:12:32 EST, Route to Pharmacy Electronically, [facility]/pharmacy #[id number] Start Date: 08/06/19 Stop Date: 07/01/20 Status: OrderedZyrTEC 10 mg oral tablet 1 tablet = 10 mg, By Mouth, Daily, # 30 tablet, 3 Refills, Maintenance, 04/03/20 15:37:00 EDT, Tablet, [facility]/pharmacy #[id number], 163, cm, 04/03/20 14:59:00 EDT, [...]
--- OUTSIDE RECORDS SUMMARY | 2022-06-29 21:24 | XMS_ITS | Continuity of Care Document ---
:1990 Author Organization [facility] Address [address] [place] [id number]- Care Team Providers Name Role Phone Fatoumata Stokes DO Primary Care Physician Encounter [facility] Date(s): 07/18/20 - 07/18/[address] [address]- [facility] Encounter Diagnosis Vaginal pain (Final) - 07/18/20 Discharge Disposition: A-D/C Home Attending Physician: Chad [...] 11/22/19 13:30:00 EST, Route to Pharmacy Electronically, [facility]/pharmacy #[id number], 159, cm, 11/19/19 8:17:00 EST, Height, 89.7, kg, 11/14/19 9... Start Date: 11/22/19 Status: OrderedAquaphor Healing topical ointment See Instructions, APPLY TO NIPPLE DAILY NEEDED FOR DISCOMFORT, # 50 Gm, 0 Refills, Maintenance, [facility]ORE [id number], 7, APPLY TO NIPPLE DAILY NEEDED FOR DISCOMFORT, 159, cm, 12/10/19 11:02:00 EDT, Height, 86.7, kg, 12/10/19 11:02:00 EDT, Dry Weight Start Date: 12/10/19 Status: Orderedbenztropine 1 mg oral tablet 1 mg, 1, tablet, By Mouth, 2 times a day, # 60 tablet, Refills 0, Tot. Refills 0, Maintenance, 01/01/20 16:15:00 EDT, Route to Pharmacy Electronically, [facility]/pharmacy #[id number], 163, cm, 01/01/20 14:39:00 EDT, Height, 86.5, kg, 12/19/19 19:14:00 EDT, Dry We... Start Date: 01/01/20 Stop Date: 01/31/20 Status: OrderedDepo-Provera Contraceptive 150 mg/mL intramuscular suspension 1 mL = 150 mg, Intramuscular, Every 3 months, # 1 mL, 3 Refills, Maintenance, 05/28/20 11:29:00 EDT,Suspension, [facility], 163, cm, 05/28/20 11:24:00 EDT, Height, 88.9, kg, 04/03/20 14:59:00 EDT, Dry Weight Start Date: 05/28/20 Status: Ordereddocusate sodium 100 mg oral capsule 100 mg, 1, capsule, By Mouth, 2 times a day, # 60 capsule, Refills 11, Tot. Refills 11, Maintenance,01/08/20 11:07:00 EDT, [id number], cm, 01/02/20 7:50:00 EDT, Height, 86.5, kg, 12/19/19 19:14:00 EDT, D... Start Date: 01/08/20 Stop Date: 01/02/21 Status: Orderedestradiol 0.1 mg/24 hours twice weekly transdermal film, extended release 1 patch, Topically, Every Tuesday and , # 8 patch, 6 Refills, Maintenance, 05/28/20 11:01:00 EDT, [facility]/pharmacy #[id number], 163, cm, 04/03/20 14:59:00 EDT, Height, 88.9, kg, 04/03/20 14:59:00 EDT, DryWeight Start Date: 05/28/20 Status: OrderedEucerin Plus topical lotion 1 application, Topically, 2 times a day, PRN for dry skin, May apply to affected area every 6 hours as needed, up to 2 times/day, # 180 mL, 11 Refills, Maintenance, 08/06/19 12:15:04 EST, Lotion, [facility]/pharmacy #[id number] Start Date: 08/06/19 Status: Orderedferrous sulfate 325 mg oral enteric coated tablet 325 mg, 1, tablet, By Mouth, Daily, # 30 tablet, Refills 11, Tot. Refills 11, Maintenance, 01/08/20 11:07:00 EDT, Route to Pharmacy Electronically, [facility]/pharmacy #[id number], 163, cm, 01/02/20 7:50:00 EDT, Height, 86.5, kg, 12/19/19 19:14:00 EDT, Dry Weight Start Date: 01/08/20 Status: OrderedFlonase 50 mcg/inh nasal spray 1 sprays, Nares, Both, 2 times a day, # 16 Gm, 5 Refills, Maintenance, 07/04/20 9:01:00 EDT, [place], [facility]/pharmacy #[id number], 1 sprays Nares, Both 2 times a day, 163, cm, 05/28/20 11:24:00 EDT, Height, 102.3, kg, 06/22/20 23:55:00 EDT, Dry Weight Start Date: 07/04/20 Status: Orderedlithium 300 mg oral tablet 1 tablet = 300 mg, By Mouth, Daily in AM, # 30 tablet, 0 Refills, Maintenance, 01/01/20 16:16:00 EDT, Tablet, [facility]/pharmacy #[id number], 163, cm, 01/01/20 14:39:00 EDT, Height, 86.5, kg, 12/19/19 19:14:00 EDT, Dry Weight Start Date: 01/01/20 Stop Date: 01/29/20 Status: Orderedlithium 600 mg oral capsule 1 capsule = 600 mg, By Mouth, Daily at bedtime, # 30 capsule, 0 Refills, Maintenance, 01/01/20 16:16:00 EDT, Capsule, [facility]/pharmacy #[id number], 163, cm, 01/01/20 14:39:00 EDT, Height, 86.5, kg, 12/19/19 19:14:00 EDT, Dry Weight Start Date: 01/01/20 Stop Date: 03/01/20 Status: OrderedMiraLax oral powder for reconstitution = 17 Gm, By Mouth, Daily, dissolve in water before taking, # 255 Gm, 0 Refills, Maintenance, 07/11/20 15:38:00 EDT, REC Powder, [facility]/pharmacy #[id number], 17 Gm By Mouth Daily,Instr:dissolve in [...] Refills, Maintenance, 07/07/20 11:44:00 EDT, EC Capsule, [facility]/pharmacy #[id number], 163, cm, 05/28/20 11:24:00 EDT, Height, 102.3, kg, 06/22/20 23:55:00 EDT, Dry Weight Start Date: 07/07/20 Status: Orderedperphenazine 16 mg oral tablet 16 mg, 1, tablet, By Mouth, 2 times a day, # 60 tablet, Refills 0, Tot. Refills 0, Maintenance, 01/01/20 16:18:00 EDT, Route to Pharmacy Electronically, [facility]/pharmacy #[id number], 163, cm, 01/01/20 14:39:00 EDT, Height, 86.5, kg, 12/19/19 19:14:00 EDT, Dry W... Start Date: 01/01/20 Status: Orderedperphenazine 8 mg oral tablet 8 mg, 1, tablet, By Mouth, 2 times a day, PRN, Indicated for severe agitation/psychosis and to be taken 8 hours apart, # 60 tablet, Refills 0, Tot. Refills 0, Maintenance, Psychosis, 01/02/20 4:30:00 EDT, Route to Pharmacy Electronically, [facility]/pharmacy... Start Date: 01/02/20 Status: Orderedsimethicone 125 mg oral capsule See Instructions, TAKE 1 CAPSULE BY MOUTH THREE TIMES A DAY AFTER MEALS AND AT BEDTIME NEEDED, # 48 capsule, 2 Refills, Acute, [id number], 163, cm, 05/28/20 11:24:00 EDT, Height, 88.9, kg, 04/03/20 14:59:00 EDT, Dry Weight Start Date: 06/03/20 Status: OrderedTums 500 mg oral tablet, chewable 1,000 mg, 2, tablet, Chew, Every 6 hours, PRN, # 120 tablet, Refills 11, Tot. Refills 11, Maintenance, for indigestion, 08/06/19 12:12:32 EST, Route to Pharmacy Electronically, [facility]/pharmacy #[id number] Start Date: 08/06/19 Stop Date: 07/01/20 Status: OrderedZyrTEC 10 mg oral tablet 1 tablet = 10 mg, By Mouth, Daily, # 30 tablet, 3 Refills, Maintenance, 04/03/20 15:37:00 EDT, Tablet, [facility]/pharmacy #[id number], 163, cm, 04/03/20 14:59:00 EDT, Height, [...] Saturation [94-100 %] 100 % 100 % (07/18/20 9:19 PM) (07/18/20 5:49 PM) Pulse Rate [55-90 bpm] 90 bpm 88 bpm (07/18/20 9:19 PM) (07/18/20 5:49 PM) Blood Pressure [90-138/55-84 mm Hg] 143/90 mm Hg 133/ 69 mm Hg *H* (07/18/20 5:49 PM) (07/18/20 9:19 PM) Respiratory Rate [16-30 br/min] 18 br/min 18 br/mi n (07/18/20 9:19 PM) (07/18/20 5:49 PM) Temperature [96.8-100.4 DegF] 98.8 DegF 98.8 DegF (07/18/20 9:19 PM) (07/18/20 5:49 PM) Mode of Delivery (Oxygen) Room air Room air (07/18/20 9:19 PM) (07/18/20 5:49 PM) Blood pressure sites Arm, right Arm, right (07/18/20 9:19 PM) (07/18/20 5:49 PM) Temperature Route Oral Oral (07/18/20 9:19 PM) (07/18/20 5:49 PM) Social History Social History Type Response Tobacco Use: 4 or less cigarettes(le ss than 1/4 pack)/day in last 30 days. Sex Female
--- OUTSIDE RECORDS SUMMARY | 2022-06-29 21:25 | XMS_ITS | Continuity of Care Document ---
:1990 Author Organization [facility] Address [address] [place] [address]- Care Team Providers Name Role Phone Fatoumata Stokes DO Primary Care Physician Encounter [facility] Date(s): 08/28/21 - 08/29/[address] [address]- Encounter Diagnosis Menstrual irregularity (Final) - 08/28/21 Discharge Disposition: A-D/C Home Attending Physician: Elizabeth Henderson MD Admitting Physician: Elizabeth Henderson MD Referring Physician: Not on Staff, Referring [...] 05/28/21 7:42:00 EDT, Route to Pharmacy Electronically, [facility]/pharmacy #[id number], 164, cm, 04/07/21 15:35:00 EDT, Height, 112, kg, 10/14/20 10... Start Date: 05/28/21 Status: OrderedBenefiber oral powder for reconstitution 5 mL, By Mouth, 2 times a day, PRN as needed for constipation, dissolve in 4 to 8 oz of beverage or soft food- hot or cold, # 155 Gm, 11 Refills, Maintenance, 03/05/21 15:58:00 EDT, REC Powder, [facility]/pharmacy #[id number], Partial fill upon patient request [...] # 30 tablet, 2 Refills, [facility], 164, cm, 05/28/21 13:07:00 EDT, Height, 112, kg, 10/14/20 10:13:00 EST, Dry Weight Start Date: 07/08/21 Status: Ordereddocusate sodium 100 mg oral capsule 1 capsule, By Mouth, 2 times a day, # 60 capsule, 5 Refills, Maintenance, 07/27/21 14:02:00 EDT, [facility]/pharmacy #[id number], 164, cm, 05/28/21 13:07:00 EDT, Height, 112, kg, 10/14/20 10:13:00 EST, Dry Weight Start Date: 07/27/21 Status: OrderedEstradiol Patch 0.1 mg/24 hours twice weekly transdermal film, extended release See Instructions, APPLY 1 PATCH TOPICALLY EVERY TUESDAY & TUESDAY, # 8 patch, 12 Refills, 03/13/21 13:04:00 EDT, [facility]/pharmacy #[id number], 28, APPLY 1 PATCH TOPICALLY EVERY TUESDAY & TUESDAY, 164, cm, 03/13/21 9:51:00 EDT, Height, 112, kg, 10/14/20 10:13:00... Start Date: 03/13/21 Status: Orderedferrous sulfate 325 mg oral enteric coated tablet 1, tablet, By Mouth, Daily, # 90 tablet, Refills 1, Route to Pharmacy Electronically, [id number], 164, cm, 05/28/21 13:07:00 EDT, Height, 112, kg, 10/14/20 10:13:00 EST, Dry Weight Start Date: 07/08/21 Status: Orderedfluticasone 50 mcg/inh nasal spray See Instructions, USE 1 SPRAY IN EACH NOSTRIL TWICE A DAY, # 16 mL, 5 Refills, Maintenance, [facility] [id number], 30, USE 1 SPRAY IN EACH NOSTRIL [...] 3 Refills, Soft Stop, 03/13/21 13:05:00 EDT, [facility]/pharmacy #[id number], 164, cm, 03/13/21 9:51:00 EDT, [...] Mouth, Daily, # 90 capsule, 0 Refills, [id number], 164, cm, 05/28/21 13:07:00 EDT, Height, 112, [...] [facility]/pharmacy... Start Date: 01/02/20 Status: OrderedSenna 8.6 mg oral tablet 1, tablet, By Mouth, Daily at bedtime, PRN, # 60 tablet, Refills 1, Tot. Refills 0, Acute, NEEDEDFOR CONSTIPATION, 02/19/21 17:23:00 EDT, Route to Pharmacy Electronically, [id number], 164, cm,10/14/20 10:13:00 EST, Height, 112, kg, 10/14/20... Start Date: 02/19/21 Status: Orderedsimethicone 125 mg oral capsule See Instructions, TAKE 1 CAPSULE BY MOUTH THREE TIMES A DAY AFTER MEALS AND AT BEDTIME NEEDED, # 48 capsule, 11 Refills, [facility] [id number], 164, cm, 04/07/21 15:35:00 EDT, Height, 112, [...] Range]: Oxygen Saturation [94-100 %] 100 % 99 % 100 % (08/29/21 4:21 AM) (08/29/21 12:08 AM) (08/28/21 8: 05 PM) Pulse Rate [55-90 bpm] 61 bpm 90 bpm 83 bpm (08/29/21 4:21 AM) (08/29/21 12:08 AM) (08/28/21 8: 05 PM) Blood Pressure [90-138/55-84 124/68 mm Hg 130/80 mm Hg 136 /88 mm Hg mm Hg] (08/29/21 4:21 AM) (08/29/21 12:08 AM) (08/28/21 8: 05 PM) Respiratory Rate [16-30 16 br/min 16 br/min 18 br/mi n br/min] (08/29/21 4:21 AM) (08/29/21 12:08 AM) (08/28/21 8: 05 PM) Temperature [96.8-100.4 DegF] 98.2 DegF 98.4 DegF (08/29/21 12:08 AM) (08/28/21 8:05 PM) Mode of Delivery (Oxygen) Room air Room air Room a ir (08/29/21 4:21 AM) (08/29/21 12:08 AM) (08/28/21 8: 05 PM) Blood pressure sites Arm, right (08/28/21 8:05 PM) Temperature Route Oral Oral (08/29/21 12:08 AM) (08/28/21 8:05 PM) Social History Social History Type Response Tobacco Use: 4 or less cigarettes(le ss than 1/4 pack)/day in last 30 days. Sex Female
--- OUTSIDE RECORDS SUMMARY | 2022-06-29 21:25 | XMS_ITS | Continuity of Care Document ---
:1990 Author Organization [facility] Address [address] [place] [address]- Care Team Providers Name Role Phone Fatoumata Stokes DO Primary Care Physician [facility] Date(s): 01/08/20 - 01/18/20 [facility] [address] [place] [address]- [facility] Attending Physician: Jada Torres Admitting Physician: Jada [...] 13:30:00 EST, Route to Pharmacy Electronically, [facility]/pharmacy #[id number], 159, cm, 11/19/19 8:17:00 EST, Height, 89.7, kg, 11/14/19 9... Start Date: 11/22/19 Status: OrderedAquaphor Healing topical ointment See Instructions, APPLY TO NIPPLE DAILY NEEDED FOR DISCOMFORT, # 50 Gm, 0 Refills, Maintenance, [facility] [address], 7, APPLY TO NIPPLE DAILY NEEDED FOR DISCOMFORT, 159, cm, 12/10/19 11:02:00 EDT, Height, 86.7, kg, 12/10/19 11:02:00 EDT, Dry Weight Start Date: 12/10/19 Status: Orderedbenztropine 1 mg oral tablet 1 mg, 1, tablet, By Mouth, 2 times a day, # 60 tablet, Refills 0, Tot. Refills 0, Maintenance, 01/01/20 16:15:00 EDT, Route to Pharmacy Electronically, [facility]/pharmacy #[id number], 163, cm, 01/01/20 14:39:00 EDT, Height, 86.5, kg, 12/19/19 19:14:00 EDT, Dry We... Start Date: 01/01/20 Stop Date: 01/31/20 Status: OrderedDepo-Provera Contraceptive 150 mg/mL intramuscular suspension 1 mL = 150 mg, Intramuscular, Every 3 months, # 1 mL, 3 Refills, Maintenance, 12/10/19 11:23:00 EDT,Suspension, [facility], 159, cm, 12/10/19 11:02:00 EDT, Height, 86.7, kg, 12/10/19 11:02:00 EDT, Dry Weight Start Date: 12/10/19 Status: Ordereddocusate sodium 100 mg oral capsule 100 mg, 1, capsule, By Mouth, 2 times a day, # 60 capsule, Refills 11, Tot. Refills 11, Maintenance,01/08/20 11:07:00 EDT, Route to Pharmacy Electronically, [facility]/pharmacy #[id number], 163, cm, 01/02/20 7:50:00 EDT, Height, 86.5, kg, 12/19/19 19:14:00 EDT, D... Start Date: 01/08/20 Stop Date: 01/02/21 Status: Orderedestradiol 0.1 mg/24 hours twice weekly transdermal film, extended release 1 patch, Topically, Every Tuesday and , # 8 patch, 6 Refills, Maintenance, 12/10/19 11:19:00 EDT, [facility]/pharmacy #[id number], 159, cm, 12/10/19 11:02:00 EDT, Height, 86.7, kg, 12/10/19 11:02:00 EDT, DryWeight Start Date: 12/10/19 Status: OrderedEucerin Plus topical lotion 1 application, Topically, 2 times a day, PRN for dry skin, May apply to affected area every 6 hours as needed, up to 2 times/day, # 180 mL, 11 Refills, Maintenance, 08/06/19 12:15:04 EST, Lotion, [facility]/pharmacy #[id number] Start Date: 08/06/19 Status: Orderedferrous sulfate 325 mg oral enteric coated tablet 325 mg, 1, tablet, By Mouth, Daily, # 30 tablet, Refills 11, Tot. Refills 11, Maintenance, 01/08/20 11:07:00 EDT, [id number], 163, cm, 01/02/20 7:50:00 EDT, Height, 86.5, kg, 12/19/19 19:14:00 EDT, Dry Weight Start Date: 01/08/20 Status: Orderedlithium 300 mg oral tablet 1 tablet = 300 mg, By Mouth, Daily in AM, # 30 tablet, 0 Refills, Maintenance, 01/01/20 16:16:00 EDT, Tablet, [id number], 163, cm, 01/01/20 14:39:00 EDT, Height, 86.5, kg, 12/19/19 19:14:00 EDT, Dry Weight Start Date: 01/01/20 Stop Date: 01/29/20 Status: Orderedlithium 600 mg oral capsule 1 capsule = 600 mg, By Mouth, Daily at bedtime, # 30 capsule, 0 Refills, Maintenance, 01/01/20 16:16:00 EDT, Capsule, [facility]/pharmacy #[id number], 163, cm, [...] Maintenance, 01/08/20 11:07:00 EDT, EC Capsule, [facility]/pharmacy #[id number], 163, cm, 01/02/20 7:50:00 EDT, Height, 86.5, kg, 12/19/19 19:14:00 EDT, Dry Weight Start Date: 01/08/20 Status: Orderedperphenazine 16 mg oral tablet 16 mg, 1, tablet, By Mouth, 2 times a day, # 60 tablet, Refills 0, Tot. Refills 0, Maintenance, 01/01/20 16:18:00 EDT, Route to Pharmacy Electronically, [facility]/pharmacy #[id number], 163, cm, [...] 4:30:00 EDT, Route to Pharmacy Electronically, [facility]/pharmacy... Start Date: 01/02/20 Status: OrderedTums 500 mg oral tablet, chewable 1,000 mg, 2, tablet, Chew, Every 6 hours, PRN, # 120 tablet, Refills 11, Tot. Refills 11, Maintenance, for indigestion, 08/06/19 12:12:32 EST, Route to Pharmacy Electronically, [facility]/pharmacy #[id number] Start Date: [...]
--- OUTSIDE RECORDS SUMMARY | 2022-06-29 21:25 | XMS_ITS | Continuity of Care Document ---
:1990 Author Organization [facility] Address [address] [place] [address]- Care Team Providers Name Role Phone Fatoumata Stokes DO Primary Care Physician [facility] Date(s): 04/04/20 - 05/04/20 [facility] [address] [place] [address]- [facility] Allergies, Adverse Reactions, Alerts Substance Reaction Severity [...] 11/22/19 13:30:00 EST, Route to Pharmacy Electronically, [facility]/pharmacy #[id number], 159, cm, 11/19/19 8:17:00 EST, Height, 89.7, kg, 11/14/19 9... Start Date: 11/22/19 Status: OrderedAquaphor Healing topical ointment See Instructions, APPLY TO NIPPLE DAILY NEEDED FOR DISCOMFORT, # 50 Gm, 0 Refills, Maintenance, [facility] STORE [id number], 7, APPLY TO NIPPLE DAILY NEEDED FOR DISCOMFORT, 159, cm, 12/10/19 11:02:00 EDT, Height, 86.7, kg, 12/10/19 11:02:00 EDT, Dry Weight Start Date: 12/10/19 Status: Orderedbenztropine 1 mg oral tablet 1 mg, 1, tablet, By Mouth, 2 times a day, # 60 tablet, Refills 0, Tot. Refills 0, Maintenance, 01/01/20 16:15:00 EDT, Route to Pharmacy Electronically, [facility]/pharmacy #[id number], 163, cm, 01/01/20 14:39:00 EDT, Height, 86.5, kg, 12/19/19 19:14:00 EDT, Dry We... Start Date: 01/01/20 Stop Date: 01/31/20 Status: OrderedDepo-Provera Contraceptive 150 mg/mL intramuscular suspension 1 mL = 150 mg, Intramuscular, Every 3 months, # 1 mL, 3 Refills, Maintenance, 12/10/19 11:23:00 EDT,Suspension, [facility], 159, cm, 12/10/19 11:02:00 EDT, Height, 86.7, kg, 12/10/19 11:02:00 EDT, Dry Weight Start Date: 12/10/19 Status: Ordereddocusate sodium 100 mg oral capsule 100 mg, 1, capsule, By Mouth, 2 times a day, # 60 capsule, Refills 11, Tot. Refills 11, Maintenance,01/08/20 11:07:00 EDT, Route to Pharmacy Electronically, [facility]/pharmacy #[id number], 163, cm, 01/02/20 7:50:00 EDT, Height, 86.5, kg, 12/19/19 19:14:00 EDT, D... Start Date: 01/08/20 Stop Date: 01/02/21 Status: Orderedestradiol 0.1 mg/24 hours twice weekly transdermal film, extended release 1 patch, Topically, Every Tuesday and , # 8 patch, 6 Refills, Maintenance, 12/10/19 11:19:00 EDT, [facility]/pharmacy #[id number], 159, cm, 12/10/19 11:02:00 EDT, Height, 86.7, kg, 12/10/19 11:02:00 EDT, DryWeight Start Date: 12/10/19 Status: OrderedEucerin Plus topical lotion 1 application, Topically, 2 times a day, PRN for dry skin, May apply to affected area every 6 hours as needed, up to 2 times/day, # 180 mL, 11 Refills, Maintenance, 08/06/19 12:15:04 EST, Lotion, [facility]/pharmacy #[id number] Start Date: 08/06/19 Status: Orderedferrous sulfate 325 mg oral enteric coated tablet 325 mg, 1, tablet, By Mouth, Daily, # 30 tablet, Refills 11, Tot. Refills 11, Maintenance, 01/08/20 11:07:00 EDT, Route to Pharmacy Electronically, [facility]/pharmacy #[id number], 163, cm, 01/02/20 7:50:00 EDT, Height, 86.5, kg, 12/19/19 19:14:00 EDT, Dry Weight Start Date: 01/08/20 Status: OrderedFlonase 50 mcg/inh nasal spray 1 sprays, Nares, Both, 2 times a day, # 16 Gm, 3 Refills, Maintenance, 04/03/20 15:37:00 EDT, [place],[facility]/pharmacy #[id number], 1 sprays Nares, Both 2 times a day, 163, cm, 04/03/20 14:59:00 EDT, Height, 88.9, kg, 04/03/20 14:59:00 EDT, Dry Weight Start Date: 04/03/20 Status: Orderedlithium 300 mg oral tablet 1 tablet = 300 mg, By Mouth, Daily in AM, # 30 tablet, 0 Refills, Maintenance, 01/01/20 16:16:00 EDT, Tablet, [facility]/pharmacy #[id number], 163, cm, 01/01/20 14:39:00 EDT, Height, 86.5, kg, 12/19/19 19:14:00 EDT, Dry Weight Start Date: 01/01/20 Stop Date: 01/29/20 Status: Orderedlithium 600 mg oral capsule 1 capsule = 600 mg, By Mouth, Daily at bedtime, # 30 capsule, 0 Refills, Maintenance, 01/01/20 16:16:00 EDT, Capsule, [facility]/pharmacy #[id number], 163, cm, 01/01/20 14:39:00 EDT, [...] Refills, Maintenance, 01/08/20 11:07:00 EDT, EC Capsule, [facility]/pharmacy #[id number], 163, cm, 01/02/20 7:50:00 EDT, Height, 86.5, kg, 12/19/19 19:14:00 EDT, Dry Weight Start Date: 01/08/20 Status: Orderedperphenazine 16 mg oral tablet 16 mg, 1, tablet, By Mouth, 2 times a day, # 60 tablet, Refills 0, Tot. Refills 0, Maintenance, 01/01/20 16:18:00 EDT, Route to Pharmacy Electronically, [facility]/pharmacy #[id number], 163, cm, 01/01/20 14:39:00 EDT, Height, 86.5, kg, 12/19/19 19:14:00 EDT, Dry W... Start Date: 01/01/20 Status: Orderedperphenazine 8 mg oral tablet 8 mg, 1, tablet, By Mouth, 2 times a day, PRN, Indicated for severe agitation/psychosis and to be taken 8 hours apart, # 60 tablet, Refills 0, Tot. Refills 0, Maintenance, Psychosis, 01/02/20 4:30:00 EDT, Route to Pharmacy Electronically, [facility]/pharmacy... Start Date: 01/02/20 Status: Orderedsimethicone 125 mg oral capsule 1 capsule = 125 mg, By Mouth, 3 times a day after meals and bedtime, PRN Other, prn gas, # 48 capsule, 2 Refills, Maintenance, 04/03/20 15:26:00 EDT, Capsule, [facility]/pharmacy #[id number], 163, cm, 04/03/20 14:59:00 EDT, Height, 88.9, kg, 04/03/20 14:59:00 EDT,... Start Date: 04/03/20 Status: OrderedTums 500 mg oral tablet, chewable 1,000 mg, 2, tablet, Chew, Every 6 hours, PRN, # 120 tablet, Refills 11, Tot. Refills 11, Maintenance, for indigestion, 08/06/19 12:12:32 EST, Route to Pharmacy Electronically, [facility]/pharmacy #[id number] Start Date: 08/06/19 Stop Date: 07/01/20 Status: OrderedZyrTEC 10 mg oral tablet 1 tablet = 10 mg, By Mouth, Daily, # 30 tablet, 3 Refills, Maintenance, 04/03/20 15:37:00 EDT, Tablet, [facility]/pharmacy #[id number], 163, cm, 04/03/20 14:59:00 EDT, [...]
--- OUTSIDE RECORDS SUMMARY | 2022-06-29 21:25 | XMS_ITS | Continuity of Care Document ---
:1990 Author Organization [facility] Address [address] [place] [address], [address] [place] [id number]- Care Team Providers Name Role Phone Fatoumata Stokes DO Primary Care Physician Encounter [facility] Date(s): 11/24/20 - 12/01/20 [facility] [address], [address] [place] [id number] Attending Physician: Shannon Castrejon MD Referring Physician: Clayton Alvarez MD Allergies, Adverse Reactions, [...] 13:30:00 EST, Route to Pharmacy Electronically, [facility]/pharmacy #[id number], 159, cm, 11/19/19 8:17:00 EST, Height, 89.7, kg, 11/14/19 9... Start Date: 11/22/19 Status: OrderedAquaphor Healing topical ointment See Instructions, APPLY TO NIPPLE DAILY NEEDED FOR DISCOMFORT, # 50 Gm, 0 Refills, Maintenance, [facility] STORE [id number], 7, APPLY TO NIPPLE DAILY NEEDED FOR DISCOMFORT, 159, cm, 12/10/19 11:02:00 EDT, Height, 86.7, kg, 12/10/19 11:02:00 EDT, Dry Weight Start Date: 12/10/19 Status: Orderedbenztropine 1 mg oral tablet 1 mg, 1, tablet, By Mouth, 2 times a day, # 60 tablet, Refills 0, Tot. Refills 0, Maintenance, 01/01/20 16:15:00 EDT, Route to Pharmacy Electronically, [facility]/pharmacy #[id number], 163, cm, 01/01/20 14:39:00 EDT, Height, 86.5, kg, 12/19/19 19:14:00 EDT, Dry We... Start Date: 01/01/20 Stop Date: 01/31/20 Status: OrderedDepo-Provera Contraceptive 150 mg/mL intramuscular suspension 1 mL = 150 mg, Intramuscular, Every 3 months, # 1 mL, 3 Refills, Maintenance, 08/26/20 9:54:00 EST, Suspension, [facility], 163, cm, 05/28/20 11:24:00 EDT, Height, 100, kg, 08/04/20 11:40:00 EST, Dry Weight Start Date: 08/26/20 Status: Ordereddocusate sodium 100 mg oral capsule 100 mg, 1, capsule, By Mouth, 2 times a day, # 60 capsule, Refills 11, Tot. Refills 11, Maintenance,01/08/20 11:07:00 EDT, Route to Pharmacy Electronically, [facility]/pharmacy #[id number], 163, cm, 01/02/20 7:50:00 EDT, Height, 86.5, kg, 12/19/19 19:14:00 EDT, D... Start Date: 01/08/20 Stop Date: 01/02/21 Status: Orderedestradiol 0.1 mg/24 hours twice weekly transdermal film, extended release 1 patch, Topically, Every Tuesday and , # 8 patch, 6 Refills, Maintenance, 05/28/20 11:01:00 EDT, [facility]/pharmacy #[id number], 163, cm, 04/03/20 14:59:00 EDT, Height, 88.9, kg, 04/03/20 14:59:00 EDT, DryWeight Start Date: 05/28/20 Status: OrderedEucerin Plus topical lotion 1 application, Topically, 2 times a day, PRN for dry skin, May apply to affected area every 6 hours as needed, up to 2 times/day, # 180 mL, 11 Refills, Maintenance, 08/06/19 12:15:04 EST, Lotion, [facility]/pharmacy #[id number] Start Date: 08/06/19 Status: Orderedferrous sulfate 325 mg oral enteric coated tablet 325 mg, 1, tablet, By Mouth, Daily, # 90 tablet, Refills 1, Tot. Refills 1, Maintenance, 10/31/20 16:01:00 EST, Route to Pharmacy Electronically, [facility]/pharmacy #[id number], 164, cm, 10/14/20 10:13:00 EST, Height, 112, kg, 10/14/20 10:13:00 EST, Dry Weight Start Date: 10/31/20 Status: OrderedFlonase 50 mcg/inh nasal spray 1 sprays, Nares, Both, 2 times a day, # 16 Gm, 5 Refills, Maintenance, 07/04/20 9:01:00 EDT, [place], [facility]/pharmacy #[id number], 1 sprays Nares, Both 2 times a day, 163, cm, 05/28/20 11:24:00 EDT, Height, 102.3, kg, 06/22/20 23:55:00 EDT, Dry Weight Start Date: 07/04/20 Status: Orderedlithium 300 mg oral tablet 1 tablet = 300 mg, By Mouth, Daily in AM, # 30 tablet, 0 Refills, Maintenance, 01/01/20 16:16:00 EDT, Tablet, [facility]/pharmacy #[id number], 163, cm, 01/01/20 14:39:00 EDT, Height, 86.5, kg, 12/19/19 19:14:00 EDT, Dry Weight Start Date: 01/01/20 Stop Date: 01/29/20 Status: Orderedlithium 600 mg oral capsule 1 capsule = 600 mg, By Mouth, Daily at bedtime, # 30 capsule, 0 Refills, Maintenance, 01/01/20 16:16:00 EDT, Capsule, [facility]/pharmacy #[id number], 163, cm, 01/01/20 14:39:00 EDT, Height, [...] Maintenance, 07/11/20 15:38:00 EDT, REC Powder, [facility]/pharmacy #[id number], 17 Gm By Mouth Daily,Instr:dissolve in water before taking, 163, cm, 05/28/20 11:24:00 EDT, Height, 102... Start Date: 07/11/20 Status: Orderedomeprazole 20 mg oral enteric coated capsule 1 capsule = 20 mg, By Mouth, Daily, # 30 capsule, 5 Refills, Maintenance, 07/07/20 11:44:00 EDT, EC Capsule, [facility]/pharmacy #[id number], 163, cm, 05/28/20 11:24:00 EDT, Height, 102.3, kg, 06/22/20 23:55:00 EDT, Dry Weight Start Date: 07/07/20 Status: Orderedperphenazine 16 mg oral tablet 16 mg, 1, tablet, By Mouth, 2 times a day, # 60 tablet, Refills 0, Tot. Refills 0, Maintenance, 01/01/20 16:18:00 EDT, Route to Pharmacy Electronically, [facility]/pharmacy #[id number], 163, cm, 01/01/20 14:39:00 EDT, Height, 86.5, kg, 12/19/19 19:14:00 EDT, Dry W... Start Date: 01/01/20 Status: Orderedperphenazine 8 mg oral tablet 8 mg, 1, tablet, By Mouth, 2 times a day, PRN, Indicated for severe agitation/psychosis and to be taken 8 hours apart, # 60 tablet, Refills 0, Tot. Refills 0, Maintenance, Psychosis, 01/02/20 4:30:00 EDT, Route to Pharmacy Electronically, [facility]/pharmacy... Start Date: 01/02/20 Status: Orderedsimethicone 125 mg oral capsule See Instructions, TAKE 1 CAPSULE BY MOUTH THREE TIMES A DAY AFTER MEALS AND AT BEDTIME NEEDED, # 48 capsule, 11 Refills, Maintenance, 10/21/20 9:08:00 EST, [facility]/pharmacy #[id number], 164, cm, 10/14/20 10:13:00 EST, Height, 112, kg, 10/14/20 10:13:00 EST,... Start Date: 10/21/20 Status: OrderedTums 500 mg oral tablet, chewable 1,000 mg, 2, tablet, Chew, Every 6 hours, PRN, # 120 tablet, Refills 11, Tot. Refills 11, Maintenance, for indigestion, 08/06/19 12:12:32 EST, Route to Pharmacy Electronically, [facility]/pharmacy #[id number] Start Date: 08/06/19 Stop Date: 07/01/20 Status: OrderedZyrTEC 10 mg oral tablet 1 tablet = 10 mg, By Mouth, Daily, # 30 tablet, 5 Refills, Maintenance, 07/22/20 15:24:00 EDT, Tablet, [facility]/pharmacy #[id number], 163, cm, 05/28/20 11:24:00 EDT, Height, [...] recent to oldest [Reference Range]: 1 Weight 100.6 kg (11/24/20 1:58 PM) Blood Pressure [90-138/55-84 mm Hg] 136/77 mm Hg (11/24/20 1:58 PM) Blood pressure sites Arm, right (11/24/20 1:58 PM) Weight Obtained Via Standing scale (11/24/20 1:58 PM) Social History Social History Type Response Tobacco Use: 4 or less cigarettes(le ss than 1/4 pack)/day in last 30 days. Sex Female
--- OUTSIDE RECORDS SUMMARY | 2022-06-29 21:25 | XMS_ITS | Continuity of Care Document ---
:1990 Author Organization [facility] Address [address] [place] [address]- Care Team Providers Name Role Phone Fatoumata Stokes DO Primary Care Physician [facility]counter [facility] Date(s): 10/16/20 - 11/15/20 [facility] [address] [place], [place] [address] Allergies, Adverse Reactions, Alerts Substance Reaction [...] 11/22/19 13:30:00 EST, Route to Pharmacy Electronically, [facility]/pharmacy #[id number], 159, cm, 11/19/19 8:17:00 EST, Height, 89.7, kg, 11/14/19 9... Start Date: 11/22/19 Status: OrderedAquaphor Healing topical ointment See Instructions, APPLY TO NIPPLE DAILY NEEDED FOR DISCOMFORT, # 50 Gm, 0 Refills, Maintenance, [facility] STORE [id number], 7, APPLY TO NIPPLE DAILY NEEDED FOR DISCOMFORT, 159, cm, 12/10/19 11:02:00 EDT, Height, 86.7, kg, 12/10/19 11:02:00 EDT, Dry Weight Start Date: 12/10/19 Status: Orderedbenztropine 1 mg oral tablet 1 mg, 1, tablet, By Mouth, 2 times a day, # 60 tablet, Refills 0, Tot. Refills 0, Maintenance, 01/01/20 16:15:00 EDT, Route to Pharmacy Electronically, [facility]/pharmacy #[id number], 163, cm, 01/01/20 14:39:00 EDT, Height, 86.5, kg, 12/19/19 19:14:00 EDT, Dry We... Start Date: 01/01/20 Stop Date: 01/31/20 Status: OrderedDepo-Provera Contraceptive 150 mg/mL intramuscular suspension 1 mL = 150 mg, Intramuscular, Every 3 months, # 1 mL, 3 Refills, Maintenance, 08/26/20 9:54:00 EST, Suspension, [facility], 163, cm, 05/28/20 11:24:00 EDT, Height, 100, kg, 08/04/20 11:40:00 EST, Dry Weight Start Date: 08/26/20 Status: Ordereddocusate sodium 100 mg oral capsule 100 mg, 1, capsule, By Mouth, 2 times a day, # 60 capsule, Refills 11, Tot. Refills 11, Maintenance,01/08/20 11:07:00 EDT, Route to Pharmacy Electronically, [facility]/pharmacy #[id number], 163, cm, 01/02/20 7:50:00 EDT, Height, 86.5, kg, 12/19/19 19:14:00 EDT, D... Start Date: 01/08/20 Stop Date: 01/02/21 Status: Orderedestradiol 0.1 mg/24 hours twice weekly transdermal film, extended release 1 patch, Topically, Every Tuesday and , # 8 patch, 6 Refills, Maintenance, 05/28/20 11:01:00 EDT, [facility]/pharmacy #[id number], 163, cm, 04/03/20 14:59:00 EDT, Height, 88.9, kg, 04/03/20 14:59:00 EDT, DryWeight Start Date: 05/28/20 Status: OrderedEucerin Plus topical lotion 1 application, Topically, 2 times a day, PRN for dry skin, May apply to affected area every 6 hours as needed, up to 2 times/day, # 180 mL, 11 Refills, Maintenance, 08/06/19 12:15:04 EST, Lotion, [facility]/pharmacy #[id number] Start Date: 08/06/19 Status: Orderedferrous sulfate 325 mg oral enteric coated tablet 325 mg, 1, tablet, By Mouth, Daily, # 90 tablet, Refills 1, Tot. Refills 1, Maintenance, 10/31/20 16:01:00 EST, [id number], cm, 10/14/20 10:13:00 EST, Height, 112, kg, 10/14/20 10:13:00 EST, Dry Weight Start Date: 10/31/20 Status: OrderedFlonase 50 mcg/inh nasal spray 1 sprays, Nares, Both, 2 times a day, # 16 Gm, 5 Refills, Maintenance, 07/04/20 9:01:00 EDT, [place], [facility]/pharmacy #[id number], 1 sprays Nares, Both 2 times a day, 163, cm, 05/28/20 11:24:00 EDT, Height, 102.3, kg, 06/22/20 23:55:00 EDT, Dry Weight Start Date: 07/04/20 Status: Orderedlithium 300 mg oral tablet 1 tablet = 300 mg, By Mouth, Daily in AM, # 30 tablet, 0 Refills, Maintenance, 01/01/20 16:16:00 EDT, Tablet, [facility]/pharmacy #[id number], 163, cm, 01/01/20 14:39:00 EDT, Height, 86.5, kg, 12/19/19 19:14:00 EDT, Dry Weight Start Date: 01/01/20 Stop Date: 01/29/20 Status: Orderedlithium 600 mg oral capsule 1 capsule = 600 mg, By Mouth, Daily at bedtime, # 30 capsule, 0 Refills, Maintenance, 01/01/20 16:16:00 EDT, Capsule, [facility]/pharmacy #[id number], 163, cm, 01/01/20 14:39:00 [...] Refills, Maintenance, 07/11/20 15:38:00 EDT, REC Powder, [facility]/pharmacy #[id number], 17 Gm By Mouth Daily,Instr:dissolve in water before taking, 163, cm, 05/28/20 11:24:00 EDT, Height, 102... Start Date: 07/11/20 Status: Orderedomeprazole 20 mg oral enteric coated capsule 1 capsule = 20 mg, By Mouth, Daily, # 30 capsule, 5 Refills, Maintenance, 07/07/20 11:44:00 EDT, EC Capsule, [facility]/pharmacy #[id number], 163, cm, 05/28/20 11:24:00 EDT, Height, 102.3, kg, 06/22/20 23:55:00 EDT, Dry Weight Start Date: 07/07/20 Status: Orderedperphenazine 16 mg oral tablet 16 mg, 1, tablet, By Mouth, 2 times a day, # 60 tablet, Refills 0, Tot. Refills 0, Maintenance, 01/01/20 16:18:00 EDT, Route to Pharmacy Electronically, [facility]/pharmacy #[id number], 163, cm, 01/01/20 14:39:00 [...] Route to Pharmacy Electronically, [facility]/pharmacy... Start Date: 01/02/20 Status: Orderedsimethicone 125 mg oral capsule See Instructions, TAKE 1 CAPSULE BY MOUTH THREE TIMES A DAY AFTER MEALS AND AT BEDTIME NEEDED, # 48 capsule, 11 Refills, Maintenance, 10/21/20 9:08:00 EST, [facility]/pharmacy #[id number], 164, cm, 10/14/20 10:13:00 EST, Height, 112, kg, 10/14/20 10:13:00 EST,... Start Date: 10/21/20 Status: OrderedTums 500 mg oral tablet, chewable 1,000 mg, 2, tablet, Chew, Every 6 hours, PRN, # 120 tablet, Refills 11, Tot. Refills 11, Maintenance, for indigestion, 08/06/19 12:12:32 EST, Route to Pharmacy Electronically, [facility]/pharmacy #[id number] Start Date: 08/06/19 Stop Date: 07/01/20 Status: OrderedZyrTEC 10 mg oral tablet 1 tablet = 10 mg, By Mouth, Daily, # 30 tablet, 5 Refills, Maintenance, 07/22/20 15:24:00 EDT, Tablet, [facility]/pharmacy #[id number], 163, cm, 05/28/20 11:24:00 EDT, [...]
--- OUTSIDE RECORDS SUMMARY | 2022-06-29 21:25 | XMS_ITS | Continuity of Care Document ---
:1990 Author Organization [facility] Address [address] [place] [address], [address] [place] [id number]- Care Team Providers Name Role Phone Fatoumata Stokes DO Primary Care Physician [facility] Date[facility]s): 08/26/20 - 12/11/20 [facility] [employer] [address], [address] [place] [id number]- Attending Physician: Lucía TORRES, [place] Referring Physician: Clayton Alvarez MD Allergies, Adverse [...] 11/22/19 13:30:00 EST, Route to Pharmacy Electronically, [facility]/pharmacy #[id number], 159, cm, 11/19/19 8:17:00 EST, Height, 89.7, kg, 11/14/19 9... Start Date: 11/22/19 Status: OrderedAquaphor Healing topical ointment See Instructions, APPLY TO NIPPLE DAILY NEEDED FOR DISCOMFORT, # 50 Gm, 0 Refills, Maintenance, [id number], 7, APPLY TO NIPPLE DAILY NEEDED FOR [...] Refills, Maintenance, 12/04/20 14:32:00 EST, REC Powder, [id number] upon patient request if t... Start Date: 12/04/20 Status: Orderedbenztropine 1 mg oral tablet 1 mg, 1, tablet, By Mouth, 2 times a day, # 60 tablet, Refills 0, Tot. Refills 0, Maintenance, 01/01/20 16:15:00 EDT, [id number], 163, cm, 01/01/20 14:39:00 EDT, Height, 86.5, kg, 12/19/19 19:14:00 EDT, Dry We... Start Date: 01/01/20 Stop Date: 01/31/20 Status: OrderedDepo-Provera Contraceptive 150 mg/mL intramuscular suspension 1 mL = 150 mg, Intramuscular, Every 3 months, # 1 mL, 3 Refills, Maintenance, 08/26/20 9:54:00 EST, Suspension, [facility], 163, cm, 05/28/20 11:24:00 EDT, Height, 100, kg, 08/04/20 11:40:00 EST, Dry Weight Start Date: 08/26/20 Status: Ordereddocusate sodium 100 mg oral capsule 100 mg, 1, capsule, By Mouth, 2 times a day, # 60 capsule, Refills 11, Tot. Refills 11, Maintenance,01/08/20 11:07:00 EDT, [id number] 163, cm, 01/02/20 7:50:00 EDT, Height, 86.5, kg, 12/19/19 19:14:00 EDT, D... Start Date: 01/08/20 Stop Date: 01/02/21 Status: OrderedEstradiol Patch 0.1 mg/24 hours twice weekly transdermal film, extended release See Instructions, APPLY 1 PATCH TOPICALLY EVERY TUESDAY & TUESDAY, # 8 patch, 2 Refills, 12/03/20 8:15:00 EST, [facility]/pharmacy #[id number], 28, APPLY 1 PATCH TOPICALLY EVERY TUESDAY & TUESDAY, 164, cm, 10/14/20 10:13:00 EST, Height, 112, kg, 10/14/20 10:13:00... Start Date: 12/03/20 Status: Orderedferrous sulfate 325 mg oral enteric coated tablet 325 mg, 1, tablet, By Mouth, Daily, # 90 tablet, Refills 1, Tot. Refills 1, Maintenance, 10/31/20 16:01:00 EST, Route to Pharmacy Electronically, [facility]/pharmacy #[id number], 164, cm, 10/14/20 10:13:00 EST, Height, 112, kg, 10/14/20 10:13:00 EST, Dry Weight Start Date: 10/31/20 Status: OrderedFlonase 50 mcg/inh nasal spray 1 sprays, Nares, Both, 2 times a day, # 16 Gm, 5 Refills, Maintenance, 07/04/20 9:01:00 EDT, [place], [facility]/pharmacy #[id number], 1 sprays Nares, Both 2 times a day, 163, cm, 05/28/20 11:24:00 EDT, Height, 102.3, kg, 06/22/20 23:55:00 EDT, Dry Weight Start Date: 07/04/20 Status: Orderedlithium 300 mg oral tablet 1 tablet = 300 mg, By Mouth, Daily in AM, # 30 tablet, 0 Refills, Maintenance, 01/01/20 16:16:00 EDT, Tablet, [facility]/pharmacy #[id number], 163, cm, 01/01/20 14:39:00 EDT, Height, 86.5, kg, 12/19/19 19:14:00 EDT, Dry Weight Start Date: 01/01/20 Stop Date: 01/29/20 Status: Orderedlithium 600 mg oral capsule 1 capsule = 600 mg, By Mouth, Daily at bedtime, # 30 capsule, 0 Refills, Maintenance, 01/01/20 16:16:00 EDT, Capsule, [facility]/pharmacy #[id number], 163, cm, 01/01/20 14:39:00 EDT, [...] Refills, Maintenance, 07/11/20 15:38:00 EDT, REC Powder, [facility]/pharmacy #[id number], 17 Gm By Mouth Daily,Instr:dissolve in water before taking, 163, cm, 05/28/20 11:24:00 EDT, Height, 102... Start Date: 07/11/20 Status: Orderedomeprazole 20 mg oral enteric coated capsule 1 capsule = 20 mg, By Mouth, Daily, # 30 capsule, 2 Refills, Maintenance, 12/08/20 10:55:00 EDT, EC Capsule, [facility]/pharmacy #[id number], 164, cm, 10/14/20 10:13:00 EST, Height, 112, kg, 10/14/20 10:13:00 EST, Dry Weight Start Date: 12/08/20 Status: Orderedperphenazine 16 mg oral tablet 16 mg, 1, tablet, By Mouth, 2 times a day, # 60 tablet, Refills 0, Tot. Refills 0, Maintenance, 01/01/20 16:18:00 EDT, Route to Pharmacy Electronically, [facility]/pharmacy #[id number], 163, cm, 01/01/20 14:39:00 EDT, Height, 86.5, kg, 12/19/19 19:14:00 EDT, Dry W... Start Date: 01/01/20 Status: Orderedperphenazine 8 mg oral tablet 8 mg, 1, tablet, By Mouth, 2 times a day, PRN, Indicated for severe agitation/psychosis and to be taken 8 hours apart, # 60 tablet, Refills 0, Tot. Refills 0, Maintenance, Psychosis, 01/02/20 4:30:00 EDT, Route to Pharmacy Electronically, [facility]/pharmacy... Start Date: 01/02/20 Status: Orderedsenna - oral tablet 1 tablet, By Mouth, Daily at bedtime, PRN for constipation, # 60 tablet, 1 Refills, Maintenance, 12/04/20 14:28:00 EST, Tablet, [facility]/pharmacy #[id number], Partial fill upon patient request [...] 08/06/19 12:12:32 EST, Route to Pharmacy Electronically, [facility]/pharmacy #[id number] Start Date: 08/06/19 Stop Date: 07/01/20 Status: OrderedZyrTEC 10 mg oral tablet 1 tablet = 10 mg, By Mouth, Daily, # 30 tablet, 5 Refills, Maintenance, 07/22/20 15:24:00 EDT, Tablet, [facility]/pharmacy #[id number], 163, cm, 05/28/20 11:24:00 EDT, [...]
--- OUTSIDE RECORDS SUMMARY | 2022-06-29 21:25 | XMS_ITS | Continuity of Care Document ---
:1990 Author Organization [facility] Address [address] [place] [address], [address] [place] [id number]- Care Team Providers Name Role Phone Fatoumata Stokes DO Primary Care Physician [facility] Date([facility]): [facility]11[facility]20 [facility] [address], [address] [place] [id number] Attending Physician: Shannon Castrejon MD Referring Physician: Fatoumata Stokes DO Allergies, Adverse Reactions, [...] 11/22/19 13:30:00 EST, Route to Pharmacy Electronically, [facility]/pharmacy #[id number], 159, cm, 11/19/19 8:17:00 EST, Height, 89.7, kg, 11/14/19 9... Start Date: 11/22/19 Status: OrderedAquaphor Healing topical ointment See Instructions, APPLY TO NIPPLE DAILY NEEDED FOR DISCOMFORT, # 50 Gm, 0 Refills, Maintenance, [facility] STORE [id number], 7, APPLY TO NIPPLE DAILY NEEDED FOR [...] Refills, Maintenance, 12/04/20 14:32:00 EST, REC Powder[id number] fill upon patient request if t... Start Date: 12/04/20 Status: Orderedbenztropine 1 mg oral tablet 1 mg, 1, tablet, By Mouth, 2 times a day, # 60 tablet, Refills 0, Tot. Refills 0, Maintenance, 01/01/20 16:15:00 EDT, [id number], 163, cm, 01/01/20 14:39:00 EDT, Height, 86.5, kg, 12/19/19 19:14:00 EDT, Dry We... Start Date: 01/01/20 Stop Date: 01/31/20 Status: OrderedDepo-Provera Contraceptive 150 mg/mL intramuscular suspension 1 mL = 150 mg, Intramuscular, Every 3 months, # 1 mL, 3 Refills, Maintenance, 08/26/20 9:54:00 EST, Suspension, [facility], 163, cm, 05/28/20 11:24:00 EDT, Height, 100, kg, 08/04/20 11:40:00 EST, Dry Weight Start Date: 08/26/20 Status: Ordereddocusate sodium 100 mg oral capsule 100 mg, 1, capsule, By Mouth, 2 times a day, # 60 capsule, Refills 11, Tot. Refills 11, Maintenance,01/08/20 11:07:00 EDT, [id number] 163, cm, 01/02/20 7:50:00 EDT, Height, 86.5, kg, 12/19/19 19:14:00 EDT, D... Start Date: 01/08/20 Stop Date: 01/02/21 Status: OrderedEstradiol Patch 0.1 mg/24 hours twice weekly transdermal film, extended release See Instructions, APPLY 1 PATCH TOPICALLY EVERY TUESDAY & TUESDAY, # 8 patch, 2 Refills, 12/03/20 8:15:00 EST, [facility]/pharmacy #[id number], 28, APPLY 1 PATCH TOPICALLY EVERY TUESDAY & TUESDAY, 164, cm, 10/14/20 10:13:00 EST, Height, 112, kg, 10/14/20 10:13:00... Start Date: 12/03/20 Status: Orderedferrous sulfate 325 mg oral enteric coated tablet 325 mg, 1, tablet, By Mouth, Daily, # 90 tablet, Refills 1, Tot. Refills 1, Maintenance, 10/31/20 16:01:00 EST, Route to Pharmacy Electronically, [facility]/pharmacy #[id number], 164, cm, 10/14/20 10:13:00 EST, Height, 112, kg, 10/14/20 10:13:00 EST, Dry Weight Start Date: 10/31/20 Status: OrderedFlonase 50 mcg/inh nasal spray 1 sprays, Nares, Both, 2 times a day, # 16 Gm, 5 Refills, Maintenance, 07/04/20 9:01:00 EDT, [place], [facility]/pharmacy #[id number], 1 sprays Nares, Both 2 times a day, 163, cm, 05/28/20 11:24:00 EDT, Height, 102.3, kg, 06/22/20 23:55:00 EDT, Dry Weight Start Date: 07/04/20 Status: Orderedlithium 300 mg oral tablet 1 tablet = 300 mg, By Mouth, Daily in AM, # 30 tablet, 0 Refills, Maintenance, 01/01/20 16:16:00 EDT, Tablet, [facility]/pharmacy #[id number], 163, cm, 01/01/20 14:39:00 EDT, Height, 86.5, kg, 12/19/19 19:14:00 EDT, Dry Weight Start Date: 01/01/20 Stop Date: 01/29/20 Status: Orderedlithium 600 mg oral capsule 1 capsule = 600 mg, By Mouth, Daily at bedtime, # 30 capsule, 0 Refills, Maintenance, 01/01/20 16:16:00 EDT, Capsule, [facility]/pharmacy #[id number], 163, cm, 01/01/20 14:39:00 [...] Refills, Maintenance, 07/11/20 15:38:00 EDT, REC Powder, [facility]/pharmacy #[id number], 17 Gm By Mouth Daily,Instr:dissolve in water before taking, 163, cm, 05/28/20 11:24:00 EDT, Height, 102... Start Date: 07/11/20 Status: Orderedomeprazole 20 mg oral enteric coated capsule 1 capsule = 20 mg, By Mouth, Daily, # 30 capsule, 2 Refills, Maintenance, 12/08/20 10:55:00 EDT, EC Capsule, [facility]/pharmacy #[id number], 164, cm, 10/14/20 10:13:00 EST, Height, 112, kg, 10/14/20 10:13:00 EST, Dry Weight Start Date: 12/08/20 Status: Orderedperphenazine 16 mg oral tablet 16 mg, 1, tablet, By Mouth, 2 times a day, # 60 tablet, Refills 0, Tot. Refills 0, Maintenance, 01/01/20 16:18:00 EDT, Route to Pharmacy Electronically, [facility]/pharmacy #[id number], 163, cm, 01/01/20 14:39:00 [...] 01/02/20 4:30:00 EDT, Route to Pharmacy Electronically, [facility]/pharmacy... Start Date: 01/02/20 Status: Orderedsenna - oral tablet 1 tablet, By Mouth, Daily at bedtime, PRN for constipation, # 60 tablet, 1 Refills, Maintenance, 12/04/20 14:28:00 EST, Tablet, [facility]/pharmacy #[id number], Partial fill upon patient request if the prescriptionis for a schedule II opioid drug., 164, cm, 10/14... Start Date: 12/04/20 Status: Orderedsimethicone 125 mg oral capsule See Instructions, TAKE 1 CAPSULE BY MOUTH THREE TIMES A DAY AFTER MEALS AND AT BEDTIME NEEDED, # 48 capsule, 11 Refills, Maintenance, 10/21/20 9:08:00 EST, [facility]/pharmacy #[id number], 164, cm, 10/14/20 10:13:00 EST, Height, 112, kg, 10/14/20 10:13:00 EST,... Start Date: 10/21/20 Status: OrderedTums 500 mg oral tablet, chewable 1,000 mg, 2, tablet, Chew, Every 6 hours, PRN, # 120 tablet, Refills 11, Tot. Refills 11, Maintenance, for indigestion, 08/06/19 12:12:32 EST, Route to Pharmacy Electronically, [facility]/pharmacy #[id number] Start Date: 08/06/19 Stop Date: 07/01/20 Status: OrderedZyrTEC 10 mg oral tablet 1 tablet = 10 mg, By Mouth, Daily, # 30 tablet, 5 Refills, Maintenance, 07/22/20 15:24:00 EDT, Tablet, [facility]/pharmacy #[id number], 163, cm, 05/28/20 11:24:00 EDT, [...]
--- OUTSIDE RECORDS SUMMARY | 2022-06-29 21:25 | XMS_ITS | Continuity of Care Document ---
:1990 Author Organization [facility] Address [address] [place] [id number]- Care Team Providers Name Role Phone Fatoumata Stokes DO Primary Care Physician Encounter [facility] Date(s): 05/11/20 - 05/12/[address] [address]- [facility] Encounter Diagnosis Abdominal pain (Final) - 05/11/20 Discharge Disposition: A-D/C Home Attending Physician: Yajaira [...] 13:30:00 EST, Route to Pharmacy Electronically, [facility]/pharmacy #[id number], 159, cm, 11/19/19 8:17:00 EST, Height, 89.7, kg, 11/14/19 9... Start Date: 11/22/19 Status: OrderedAquaphor Healing topical ointment See Instructions, APPLY TO NIPPLE DAILY NEEDED FOR DISCOMFORT, # 50 Gm, 0 Refills, Maintenance, [facility] STORE [id number], 7, APPLY TO NIPPLE DAILY NEEDED FOR DISCOMFORT, 159, cm, 12/10/19 11:02:00 EDT, Height, 86.7, kg, 12/10/19 11:02:00 EDT, Dry Weight Start Date: 12/10/19 Status: Orderedbenztropine 1 mg oral tablet 1 mg, 1, tablet, By Mouth, 2 times a day, # 60 tablet, Refills 0, Tot. Refills 0, Maintenance, 01/01/20 16:15:00 EDT, [id number] 163, cm, 01/01/20 14:39:00 EDT, Height, 86.5, kg, 12/19/19 19:14:00 EDT, Dry We... Start Date: 01/01/20 Stop Date: 01/31/20 Status: OrderedDepo-Provera Contraceptive 150 mg/mL intramuscular suspension 1 mL = 150 mg, Intramuscular, Every 3 months, # 1 mL, 3 Refills, Maintenance, 12/10/19 11:23:00 EDT,Suspension, [facility], 159, cm, 12/10/19 11:02:00 EDT, Height, 86.7, kg, 12/10/19 11:02:00 EDT, Dry Weight Start Date: 12/10/19 Status: Ordereddocusate sodium 100 mg oral capsule 100 mg, 1, capsule, By Mouth, 2 times a day, # 60 capsule, Refills 11, Tot. Refills 11, Maintenance,01/08/20 11:07:00 EDT, [id number] 163, cm, 01/02/20 7:50:00 EDT, Height, 86.5, kg, 12/19/19 19:14:00 EDT, D... Start Date: 01/08/20 Stop Date: 01/02/21 Status: Orderedestradiol 0.1 mg/24 hours twice weekly transdermal film, extended release 1 patch, Topically, Every Tuesday and , # 8 patch, 6 Refills, Maintenance, 12/10/19 11:19:00 EDT, [facility]/pharmacy #[id number], 159, cm, 12/10/19 11:02:00 EDT, Height, 86.7, kg, 12/10/19 11:02:00 EDT, DryWeight Start Date: 12/10/19 Status: OrderedEucerin Plus topical lotion 1 application, Topically, 2 times a day, PRN for dry skin, May apply to affected area every 6 hours as needed, up to 2 times/day, # 180 mL, 11 Refills, Maintenance, 08/06/19 12:15:04 EST, Lotion, [facility]/pharmacy #[id number] Start Date: 08/06/19 Status: Orderedferrous sulfate 325 mg oral enteric coated tablet 325 mg, 1, tablet, By Mouth, Daily, # 30 tablet, Refills 11, Tot. Refills 11, Maintenance, 01/08/20 11:07:00 EDT, Route to Pharmacy Electronically, [facility]/pharmacy #[id number], 163, cm, 01/02/20 7:50:00 EDT, Height, 86.5, kg, 12/19/19 19:14:00 EDT, Dry Weight Start Date: 01/08/20 Status: OrderedFlonase 50 mcg/inh nasal spray 1 sprays, Nares, Both, 2 times a day, # 16 Gm, 3 Refills, Maintenance, 04/03/20 15:37:00 EDT, [place],[facility]/pharmacy #[id number], 1 sprays Nares, Both 2 times a day, 163, cm, 04/03/20 14:59:00 EDT, Height, 88.9, kg, 04/03/20 14:59:00 EDT, Dry Weight Start Date: 04/03/20 Status: Orderedlithium 300 mg oral tablet 1 tablet = 300 mg, By Mouth, Daily in AM, # 30 tablet, 0 Refills, Maintenance, 01/01/20 16:16:00 EDT, Tablet, [facility]/pharmacy #[id number], 163, cm, 01/01/20 14:39:00 EDT, Height, 86.5, kg, 12/19/19 19:14:00 EDT, Dry Weight Start Date: 01/01/20 Stop Date: 01/29/20 Status: Orderedlithium 600 mg oral capsule 1 capsule = 600 mg, By Mouth, Daily at bedtime, # 30 capsule, 0 Refills, Maintenance, 01/01/20 16:16:00 EDT, Capsule, [facility]/pharmacy #[id number], 163, cm, 01/01/20 14:39:00 EDT, Height, [...] Maintenance, 01/08/20 11:07:00 EDT, EC Capsule, [facility]/pharmacy #[id number], 163, cm, 01/02/20 7:50:00 EDT, Height, 86.5, kg, 12/19/19 19:14:00 EDT, Dry Weight Start Date: 01/08/20 Status: Orderedperphenazine 16 mg oral tablet 16 mg, 1, tablet, By Mouth, 2 times a day, # 60 tablet, Refills 0, Tot. Refills 0, Maintenance, 01/01/20 16:18:00 EDT, Route to Pharmacy Electronically, [facility]/pharmacy #[id number], 163, cm, 01/01/20 14:39:00 EDT, Height, 86.5, kg, 12/19/19 19:14:00 EDT, Dry W... Start Date: 01/01/20 Status: Orderedperphenazine 8 mg oral tablet 8 mg, 1, tablet, By Mouth, 2 times a day, PRN, Indicated for severe agitation/psychosis and to be taken 8 hours apart, # 60 tablet, Refills 0, Tot. Refills 0, Maintenance, Psychosis, 01/02/20 4:30:00 EDT, Route to Pharmacy Electronically, [facility]/pharmacy... Start Date: 01/02/20 Status: Orderedsimethicone 125 mg oral capsule 1 capsule = 125 mg, By Mouth, 3 times a day after meals and bedtime, PRN Other, prn gas, # 48 capsule, 2 Refills, Maintenance, 04/03/20 15:26:00 EDT, Capsule, [facility]/pharmacy #[id number], 163, cm, 04/03/20 14:59:00 EDT, Height, 88.9, kg, 04/03/20 14:59:00 EDT,... Start Date: 04/03/20 Status: OrderedTums 500 mg oral tablet, chewable 1,000 mg, 2, tablet, Chew, Every 6 hours, PRN, # 120 tablet, Refills 11, Tot. Refills 11, Maintenance, for indigestion, 08/06/19 12:12:32 EST, Route to Pharmacy Electronically, [facility]/pharmacy #[id number] Start Date: 08/06/19 Stop Date: 07/01/20 Status: OrderedZyrTEC 10 mg oral tablet 1 tablet = 10 mg, By Mouth, Daily, # 30 tablet, 3 Refills, Maintenance, 04/03/20 15:37:00 EDT, Tablet, [facility]/pharmacy #[id number], 163, cm, 04/03/20 14:59:00 EDT, Height, [...] Saturation [94-100 %] 99 % 100 % (05/11/20 11:07 PM) (05/11/20 5:06 PM) Pulse Rate [55-90 bpm] 71 bpm 87 bpm (05/11/20 11:07 PM) (05/11/20 5:06 PM) Blood Pressure [90-138/55-84 mm Hg] 116/73 mm Hg 141/ 87 mm Hg (05/11/20 11:07 PM) *H* (05/11/20 5:06 PM) Respiratory Rate [16-30 br/min] 16 br/min 18 br/mi n (05/11/20 11:07 PM) (05/11/20 5:06 PM) Temperature [96.8-100.4 DegF] 99 DegF (05/11/20 5:06 PM) Mode of Delivery (Oxygen) Room air Room air (05/11/20 11:07 PM) (05/11/20 5:06 PM) Blood pressure sites Arm, left Arm, right (05/11/20 11:07 PM) (05/11/20 5:06 PM) Temperature Route Oral (05/11/20 5:06 PM) Social History Social History Type Response Tobacco Use: 4 or less cigarettes(le ss than 1/4 pack)/day in last 30 days. Sex
--- OUTSIDE RECORDS SUMMARY | 2022-06-29 21:25 | XMS_ITS | Continuity of Care Document ---
:1990 Author Organization [facility] Address [address] [place] [address]- Care Team Providers Name Role Phone Fatoumata Stokes DO Primary Care Physician Encounter [facility] Date(s): 08/12/20 - 09/11/20 [facility] [address] [place], [place] [address] Allergies, Adverse Reactions, Alerts [...] 11/22/19 13:30:00 EST, Route to Pharmacy Electronically, [facility]/pharmacy #[id number], 159, cm, 11/19/19 8:17:00 EST, Height, 89.7, kg, 11/14/19 9... Start Date: 11/22/19 Status: OrderedAquaphor Healing topical ointment See Instructions, APPLY TO NIPPLE DAILY NEEDED FOR DISCOMFORT, # 50 Gm, 0 Refills, Maintenance, [facility] STORE [id number], 7, APPLY TO NIPPLE DAILY NEEDED FOR DISCOMFORT, 159, cm, 12/10/19 11:02:00 EDT, Height, 86.7, kg, 12/10/19 11:02:00 EDT, Dry Weight Start Date: 12/10/19 Status: Orderedbenztropine 1 mg oral tablet 1 mg, 1, tablet, By Mouth, 2 times a day, # 60 tablet, Refills 0, Tot. Refills 0, Maintenance, 01/01/20 16:15:00 EDT, Route to Pharmacy Electronically, [facility]/pharmacy #[id number], 163, cm, 01/01/20 14:39:00 EDT, Height, 86.5, kg, 12/19/19 19:14:00 EDT, Dry We... Start Date: 01/01/20 Stop Date: 01/31/20 Status: OrderedDepo-Provera Contraceptive 150 mg/mL intramuscular suspension 1 mL = 150 mg, Intramuscular, Every 3 months, # 1 mL, 3 Refills, Maintenance, 08/26/20 9:54:00 EST, Suspension, [facility], 163, cm, 05/28/20 11:24:00 EDT, Height, 100, kg, 08/04/20 11:40:00 EST, Dry Weight Start Date: 08/26/20 Status: Ordereddocusate sodium 100 mg oral capsule 100 mg, 1, capsule, By Mouth, 2 times a day, # 60 capsule, Refills 11, Tot. Refills 11, Maintenance,01/08/20 11:07:00 EDT, Route to Pharmacy Electronically, [facility]/pharmacy #[id number], 163, cm, 01/02/20 7:50:00 EDT, Height, 86.5, kg, 12/19/19 19:14:00 EDT, D... Start Date: 01/08/20 Stop Date: 01/02/21 Status: Orderedestradiol 0.1 mg/24 hours twice weekly transdermal film, extended release 1 patch, Topically, Every Tuesday and , # 8 patch, 6 Refills, Maintenance, 05/28/20 11:01:00 EDT, [facility]/pharmacy #[id number], 163, cm, 04/03/20 14:59:00 EDT, Height, 88.9, kg, 04/03/20 14:59:00 EDT, DryWeight Start Date: 05/28/20 Status: OrderedEucerin Plus topical lotion 1 application, Topically, 2 times a day, PRN for dry skin, May apply to affected area every 6 hours as needed, up to 2 times/day, # 180 mL, 11 Refills, Maintenance, 08/06/19 12:15:04 EST, Lotion, [facility]/pharmacy #[id number] Start Date: 08/06/19 Status: Orderedferrous sulfate 325 mg oral enteric coated tablet 325 mg, 1, tablet, By Mouth, Daily, # 30 tablet, Refills 11, Tot. Refills 11, Maintenance, 01/08/20 11:07:00 EDT, Route to Pharmacy Electronically, [facility]/pharmacy #[id number], 163, cm, 01/02/20 7:50:00 EDT, Height, 86.5, kg, 12/19/19 19:14:00 EDT, Dry Weight Start Date: 01/08/20 Status: OrderedFlonase 50 mcg/inh nasal spray 1 sprays, Nares, Both, 2 times a day, # 16 Gm, 5 Refills, Maintenance, 07/04/20 9:01:00 EDT, [place], [facility]/pharmacy #[id number], 1 sprays Nares, Both 2 times a day, 163, cm, 05/28/20 11:24:00 EDT, Height, 102.3, kg, 06/22/20 23:55:00 EDT, Dry Weight Start Date: 07/04/20 Status: Orderedlithium 300 mg oral tablet 1 tablet = 300 mg, By Mouth, Daily in AM, # 30 tablet, 0 Refills, Maintenance, 01/01/20 16:16:00 EDT, Tablet, [facility]/pharmacy #[id number], 163, cm, 01/01/20 14:39:00 EDT, Height, 86.5, kg, 12/19/19 19:14:00 EDT, Dry Weight Start Date: 01/01/20 Stop Date: 01/29/20 Status: Orderedlithium 600 mg oral capsule 1 capsule = 600 mg, By Mouth, Daily at bedtime, # 30 capsule, 0 Refills, Maintenance, 01/01/20 16:16:00 EDT, Capsule, [facility]/pharmacy #[id number], 163, cm, 01/01/20 14:39:00 [...] Refills, Maintenance, 07/11/20 15:38:00 EDT, REC Powder, [facility]/pharmacy #[id number], 17 Gm By Mouth Daily,Instr:dissolve in water before taking, 163, cm, 05/28/20 11:24:00 EDT, Height, 102... Start Date: 07/11/20 Status: Orderedomeprazole 20 mg oral enteric coated capsule 1 capsule = 20 mg, By Mouth, Daily, # 30 capsule, 5 Refills, Maintenance, 07/07/20 11:44:00 EDT, EC Capsule, [facility]/pharmacy #[id number], 163, cm, 05/28/20 11:24:00 EDT, Height, 102.3, kg, 06/22/20 23:55:00 EDT, Dry Weight Start Date: 07/07/20 Status: Orderedperphenazine 16 mg oral tablet 16 mg, 1, tablet, By Mouth, 2 times a day, # 60 tablet, Refills 0, Tot. Refills 0, Maintenance, 01/01/20 16:18:00 EDT, Route to Pharmacy Electronically, [facility]/pharmacy #[id number], 163, cm, 01/01/20 14:39:00 [...] 01/02/20 4:30:00 EDT, Route to Pharmacy Electronically, [facility]/pharmacy... Start Date: 01/02/20 Status: Orderedsimethicone 125 mg oral capsule See Instructions, TAKE 1 CAPSULE BY MOUTH THREE TIMES A DAY AFTER MEALS AND AT BEDTIME NEEDED, # 48 capsule, 2 Refills, Maintenance, 08/13/20 17:29:00 EST, [facility]/pharmacy #[id number], 163, cm, 05/28/20 11:24:00 EDT, Height, 100, kg, 08/04/20 11:40:00 EST,... Start Date: 08/13/20 Status: OrderedTums 500 mg oral tablet, chewable 1,000 mg, 2, tablet, Chew, Every 6 hours, PRN, # 120 tablet, Refills 11, Tot. Refills 11, Maintenance, for indigestion, 08/06/19 12:12:32 EST, Route to Pharmacy Electronically, [facility]/pharmacy #[id number] Start Date: 08/06/19 Stop Date: 07/01/20 Status: OrderedZyrTEC 10 mg oral tablet 1 tablet = 10 mg, By Mouth, Daily, # 30 tablet, 5 Refills, Maintenance, 07/22/20 15:24:00 EDT, Tablet, [facility]/pharmacy #[id number], 163, cm, 05/28/20 11:24:00 [...]
--- OUTSIDE RECORDS SUMMARY | 2022-06-29 21:25 | XMS_ITS | Continuity of Care Document ---
:1990 Author Organization [facility] Address [address] [place] [address], [address] [place] [id number]- Care Team Providers Name Role Phone Fatoumata Stokes DO Primary Care Physician [facility]counter [facility] Date(s): 08/26/20 - 09/25/20 [facility] [address] [facility], [address] [place] [id number] Allergies, Adverse Reactions, Alerts Substance Reaction Severity [...] 11/22/19 13:30:00 EST, Route to Pharmacy Electronically, [facility]/pharmacy #[id number], 159, cm, 11/19/19 8:17:00 EST, Height, 89.7, kg, 11/14/19 9... Start Date: 11/22/19 Status: OrderedAquaphor Healing topical ointment See Instructions, APPLY TO NIPPLE DAILY NEEDED FOR DISCOMFORT, # 50 Gm, 0 Refills, Maintenance, [facility] STORE [id number], 7, APPLY TO NIPPLE DAILY NEEDED FOR DISCOMFORT, 159, cm, 12/10/19 11:02:00 EDT, Height, 86.7, kg, 12/10/19 11:02:00 EDT, Dry Weight Start Date: 12/10/19 Status: Orderedbenztropine 1 mg oral tablet 1 mg, 1, tablet, By Mouth, 2 times a day, # 60 tablet, Refills 0, Tot. Refills 0, Maintenance, 01/01/20 16:15:00 EDT, Route to Pharmacy Electronically, [facility]/pharmacy #[id number], 163, cm, 01/01/20 14:39:00 EDT, Height, 86.5, kg, 12/19/19 19:14:00 EDT, Dry We... Start Date: 01/01/20 Stop Date: 01/31/20 Status: OrderedDepo-Provera Contraceptive 150 mg/mL intramuscular suspension 1 mL = 150 mg, Intramuscular, Every 3 months, # 1 mL, 3 Refills, Maintenance, 08/26/20 9:54:00 EST, Suspension, [facility], 163, cm, 05/28/20 11:24:00 EDT, Height, 100, kg, 08/04/20 11:40:00 EST, Dry Weight Start Date: 08/26/20 Status: Ordereddocusate sodium 100 mg oral capsule 100 mg, 1, capsule, By Mouth, 2 times a day, # 60 capsule, Refills 11, Tot. Refills 11, Maintenance,01/08/20 11:07:00 EDT, Route to Pharmacy Electronically, [facility]/pharmacy #[id number], 163, cm, 01/02/20 7:50:00 EDT, Height, 86.5, kg, 12/19/19 19:14:00 EDT, D... Start Date: 01/08/20 Stop Date: 01/02/21 Status: Orderedestradiol 0.1 mg/24 hours twice weekly transdermal film, extended release 1 patch, Topically, Every Tuesday and , # 8 patch, 6 Refills, Maintenance, 05/28/20 11:01:00 EDT, [facility]/pharmacy #[id number], 163, cm, 04/03/20 14:59:00 EDT, Height, 88.9, kg, 04/03/20 14:59:00 EDT, DryWeight Start Date: 05/28/20 Status: OrderedEucerin Plus topical lotion 1 application, Topically, 2 times a day, PRN for dry skin, May apply to affected area every 6 hours as needed, up to 2 times/day, # 180 mL, 11 Refills, Maintenance, 08/06/19 12:15:04 EST, Lotion, [facility]/pharmacy #[id number] Start Date: 08/06/19 Status: Orderedferrous sulfate 325 mg oral enteric coated tablet 325 mg, 1, tablet, By Mouth, Daily, # 30 tablet, Refills 11, Tot. Refills 11, Maintenance, 01/08/20 11:07:00 EDT, Route to Pharmacy Electronically, [facility]/pharmacy #[id number], 163, cm, 01/02/20 7:50:00 EDT, Height, 86.5, kg, 12/19/19 19:14:00 EDT, Dry Weight Start Date: 01/08/20 Status: OrderedFlonase 50 mcg/inh nasal spray 1 sprays, Nares, Both, 2 times a day, # 16 Gm, 5 Refills, Maintenance, 07/04/20 9:01:00 EDT, [place], [facility]/pharmacy #[id number], 1 sprays Nares, Both 2 times a day, 163, cm, 05/28/20 11:24:00 EDT, Height, 102.3, kg, 06/22/20 23:55:00 EDT, Dry Weight Start Date: 07/04/20 Status: Orderedlithium 300 mg oral tablet 1 tablet = 300 mg, By Mouth, Daily in AM, # 30 tablet, 0 Refills, Maintenance, 01/01/20 16:16:00 EDT, Tablet, [facility]/pharmacy #[id number], 163, cm, 01/01/20 14:39:00 EDT, Height, 86.5, kg, 12/19/19 19:14:00 EDT, Dry Weight Start Date: 01/01/20 Stop Date: 01/29/20 Status: Orderedlithium 600 mg oral capsule 1 capsule = 600 mg, By Mouth, Daily at bedtime, # 30 capsule, 0 Refills, Maintenance, 01/01/20 16:16:00 EDT, Capsule, [facility]/pharmacy #[id number], 163, cm, 01/01/20 14:39:00 EDT, [...] Refills, Maintenance, 07/11/20 15:38:00 EDT, REC Powder, [facility]/pharmacy #[id number], 17 Gm By Mouth Daily,Instr:dissolve in water before taking, 163, cm, 05/28/20 11:24:00 EDT, Height, 102... Start Date: 07/11/20 Status: Orderedomeprazole 20 mg oral enteric coated capsule 1 capsule = 20 mg, By Mouth, Daily, # 30 capsule, 5 Refills, Maintenance, 07/07/20 11:44:00 EDT, EC Capsule, [facility]/pharmacy #[id number], 163, cm, 05/28/20 11:24:00 EDT, Height, 102.3, kg, 06/22/20 23:55:00 EDT, Dry Weight Start Date: 07/07/20 Status: Orderedperphenazine 16 mg oral tablet 16 mg, 1, tablet, By Mouth, 2 times a day, # 60 tablet, Refills 0, Tot. Refills 0, Maintenance, 01/01/20 16:18:00 EDT, Route to Pharmacy Electronically, [facility]/pharmacy #[id number], 163, cm, 01/01/20 14:39:00 EDT, Height, 86.5, kg, 12/19/19 19:14:00 EDT, Dry W... Start Date: 01/01/20 Status: Orderedperphenazine 8 mg oral tablet 8 mg, 1, tablet, By Mouth, 2 times a day, PRN, Indicated for severe agitation/psychosis and to be taken 8 hours apart, # 60 tablet, Refills 0, Tot. Refills 0, Maintenance, Psychosis, 01/02/20 4:30:00 EDT, Route to Pharmacy Electronically, [facility]/pharmacy... Start Date: 01/02/20 Status: Orderedsimethicone 125 mg oral capsule See Instructions, TAKE 1 CAPSULE BY MOUTH THREE TIMES A DAY AFTER MEALS AND AT BEDTIME NEEDED, # 48 capsule, 2 Refills, Maintenance, 08/13/20 17:29:00 EST, [facility]/pharmacy #[id number], 163, cm, 05/28/20 11:24:00 EDT, Height, 100, kg, 08/04/20 11:40:00 EST,... Start Date: 08/13/20 Status: OrderedTums 500 mg oral tablet, chewable 1,000 mg, 2, tablet, Chew, Every 6 hours, PRN, # 120 tablet, Refills 11, Tot. Refills 11, Maintenance, for indigestion, 08/06/19 12:12:32 EST, Route to Pharmacy Electronically, [facility]/pharmacy #[id number] Start Date: 08/06/19 Stop Date: 07/01/20 Status: OrderedZyrTEC 10 mg oral tablet 1 tablet = 10 mg, By Mouth, Daily, # 30 tablet, 5 Refills, Maintenance, 07/22/20 15:24:00 EDT, Tablet, [facility]/pharmacy #[id number], 163, cm, 05/28/20 11:24:00 EDT, [...]
--- OUTSIDE RECORDS SUMMARY | 2022-06-29 21:25 | XMS_ITS | Continuity of Care Document ---
:1990 Author Organization [facility] Address [address] [place] [id number]- Care Team Providers Name Role Phone Fatoumata Stokes DO Primary Care Physician Encounter [facility] Date(s): 03/08/20 - 03/09/[address] [address]- [facility] Encounter Diagnosis Delusion of (Final) - 03/09/20 Discharge Disposition: A-D/C Home Attending Physician: Jone Wilson MD Admitting Physician: Jnoe Wilson MD Referring Physician: Not on Staff, Referring [...] EST, Route to Pharmacy Electronically, [facility]/pharmacy #[id number], 159, cm, 11/19/19 8:17:00 EST, Height, 89.7, kg, 11/14/19 9... Start Date: 11/22/19 Status: OrderedAquaphor Healing topical ointment See Instructions, APPLY TO NIPPLE DAILY NEEDED FOR DISCOMFORT, # 50 Gm, 0 Refills, Maintenance, [facility] ST[facility] [id number], 7, APPLY TO NIPPLE DAILY NEEDED FOR DISCOMFORT, 159, cm, 12/10/19 11:02:00 EDT, Height, 86.7, kg, 12/10/19 11:02:00 EDT, Dry Weight Start Date: 12/10/19 Status: Orderedbenztropine 1 mg oral tablet 1 mg, 1, tablet, By Mouth, 2 times a day, # 60 tablet, Refills 0, Tot. Refills 0, Maintenance, 01/01/20 16:15:00 EDT, Route to Pharmacy Electronically, [facility]/pharmacy #[id number], 163, cm, 01/01/20 14:39:00 EDT, Height, 86.5, kg, 12/19/19 19:14:00 EDT, Dry We... Start Date: 01/01/20 Stop Date: 01/31/20 Status: OrderedDepo-Provera Contraceptive 150 mg/mL intramuscular suspension 1 mL = 150 mg, Intramuscular, Every 3 months, # 1 mL, 3 Refills, Maintenance, 12/10/19 11:23:00 EDT,Suspension, [facility], 159, cm, 12/10/19 11:02:00 EDT, Height, 86.7, kg, 12/10/19 11:02:00 EDT, Dry Weight Start Date: 12/10/19 Status: Ordereddocusate sodium 100 mg oral capsule 100 mg, 1, capsule, By Mouth, 2 times a day, # 60 capsule, Refills 11, Tot. Refills 11, Maintenance,01/08/20 11:07:00 EDT, Route to Pharmacy Electronically, [facility]/pharmacy #[id number], 163, cm, 01/02/20 7:50:00 EDT, Height, 86.5, kg, 12/19/19 19:14:00 EDT, D... Start Date: 01/08/20 Stop Date: 01/02/21 Status: Orderedestradiol 0.1 mg/24 hours twice weekly transdermal film, extended release 1 patch, Topically, Every Tuesday and , # 8 patch, 6 Refills, Maintenance, 12/10/19 11:19:00 EDT, [facility]/pharmacy #[id number], 159, cm, 12/10/19 11:02:00 EDT, Height, 86.7, kg, 12/10/19 11:02:00 EDT, DryWeight Start Date: 12/10/19 Status: OrderedEucerin Plus topical lotion 1 application, Topically, 2 times a day, PRN for dry skin, May apply to affected area every 6 hours as needed, up to 2 times/day, # 180 mL, 11 Refills, Maintenance, 08/06/19 12:15:04 EST, Lotion, [facility]/pharmacy #[id number] Start Date: 08/06/19 Status: Orderedferrous sulfate 325 mg oral enteric coated tablet 325 mg, 1, tablet, By Mouth, Daily, # 30 tablet, Refills 11, Tot. Refills 11, Maintenance, 01/08/20 11:07:00 EDT, [id number], cm, 01/02/20 7:50:00 EDT, Height, 86.5, kg, 12/19/19 19:14:00 EDT, Dry Weight Start Date: 01/08/20 Status: Orderedlithium 300 mg oral tablet 1 tablet = 300 mg, By Mouth, Daily in AM, # 30 tablet, 0 Refills, Maintenance, 01/01/20 16:16:00 EDT, Tablet, [facility]/pharmacy #[id number], 163, cm, 01/01/20 14:39:00 EDT, Height, 86.5, kg, 12/19/19 19:14:00 EDT, Dry Weight Start Date: 01/01/20 Stop Date: 01/29/20 Status: Orderedlithium 600 mg oral capsule 1 capsule = 600 mg, By Mouth, Daily at bedtime, # 30 capsule, 0 Refills, Maintenance, 01/01/20 16:16:00 EDT, Capsule, [facility]/pharmacy #[id number], 163, cm, 01/01/20 14:39:00 EDT, [...] 01/08/20 11:07:00 EDT, EC Capsule, [facility]/pharmacy #[id number], 163, cm, 01/02/20 7:50:00 EDT, Height, 86.5, kg, 12/19/19 19:14:00 EDT, Dry Weight Start Date: 01/08/20 Status: Orderedperphenazine 16 mg oral tablet 16 mg, 1, tablet, By Mouth, 2 times a day, # 60 tablet, Refills 0, Tot. Refills 0, Maintenance, 01/01/20 16:18:00 EDT, Route to Pharmacy Electronically, [facility]/pharmacy #[id number], 163, cm, 01/01/20 14:39:00 EDT, [...] EDT, Route to Pharmacy Electronically, [facility]/pharmacy... Start Date: 01/02/20 Status: OrderedTums 500 mg oral tablet, chewable 1,000 mg, 2, tablet, Chew, Every 6 hours, PRN, # 120 tablet, Refills 11, Tot. Refills 11, Maintenance, for indigestion, 08/06/19 12:12:32 EST, Route to Pharmacy Electronically, [facility]/pharmacy #[id number] Start Date: 08/06/19 Stop Date: [...] %] 100 % 100 % 100 % (03/09/20 6:00 AM) (03/09/20 2:23 AM) (03/08/20 11: 46 PM) Pulse Rate [55-90 bpm] 65 bpm 76 bpm 86 bpm (03/09/20 6:00 AM) (03/09/20 2:23 AM) (03/08/20 11: 46 PM) Blood Pressure [90-138/55-84 106/66 mm Hg 110/79 mm Hg 144 /93 mm Hg mm Hg] (03/09/20 6:00 AM) (03/09/20 2:23 AM) *H* (03/08/20 11:46 P M) Respiratory Rate [16-30 16 br/min 16 br/min 16 br/mi n br/min] (03/09/20 6:00 AM) (03/09/20 2:23 AM) (03/08/20 11: 46 PM) Temperature [96.8-100.4 DegF] 98.3 DegF 98.4 DegF (03/09/20 6:00 AM) (03/08/20 11:46 PM) Mode of Delivery (Oxygen) Room air Room air Room a ir (03/09/20 6:00 AM) (03/09/20 2:23 AM) (03/08/20 11: 46 PM) Blood pressure sites Arm, left Arm, left Arm, left (03/09/20 6:00 AM) (03/09/20 2:23 AM) (03/08/20 11: 46 PM) Temperature Route Oral Oral (03/09/20 6:00 AM) (03/08/20 11:46 PM) Social History Social History Type Response Smoking Status Light tobacco smoker entered on: 09/26/14 Sex
--- OUTSIDE RECORDS SUMMARY | 2022-06-29 21:25 | XMS_ITS | Continuity of Care Document ---
:1990 Author Organization [facility] Address [address] [place] [address]- Care Team Providers Name Role Phone Fatoumata Stokes DO Primary Care Physician [facility]counter [facility] Date(s): 06/14/22 - 06/18/[address] [address] Encounter Diagnosis Acute cholecystitis (Final) - 06/14/22 Discharge Disposition: A-D/C Home Attending Physician: Dennis Stevenson MD Admitting Physician: Dennis Stevenson MD Referring Physician: Not on Staff, Referring MD Allergies, Adverse Reactions, Alerts Substance Reaction Severity Status Flagyl Active paliperidone Active cloZAPine Active Invega Active Immunizations Given and Recorded Vaccine Date Status Refusal Reason SARS-CoV-2 (COVID-19) mRNA-1273 vaccine 10/22/21 Recorded SARS-CoV-2 (COVID-19) mRNA-1273 vaccine 12/10/20 Recorded SARS-CoV-2 (COVID-19) mRNA-1273 vaccine 11/12/20 Recorded tetanus/diphtheria/pertussis, acel(Tdap) 07/23/19 Given tetanus/diphtheria/pertussis, acel(Tdap) 07/30/18 Given tetanus/diphtheria/pertussis, acel(Tdap) 11/30/15 Given tetanus/diphtheria/pertussis, acel(Tdap) 10/20/14 Given tetanus/diphtheria/pertussis, acel(Tdap) 05/26/11 Given tetanus/diphtheria/pertussis, acel(Tdap) 07/31/10 Given influenza virus vaccine, inactivated 06/29/19 Given influenza virus vaccine, inactivated 07/31/18 Recorded influenza virus vaccine, inactivated 07/11/13 Given influenza virus vaccine, inactivated 11/15/11 Given influenza virus vaccine, inactivated 07/31/10 Given influenza virus vaccine, inactivated 10/03/09 Recorded pneumococcal 23-valent vaccine 07/11/13 Given Meningococcal Polysaccharide [...] 05/28/21 7:42:00 EDT, Route to Pharmacy Electronically, [facility]/pharmacy #[id number], 164, cm, 04/07/21 15:35:00 EDT, Height, 112, kg, 10/14/20 10... Start Date: 05/28/21 Status: OrderedAcetaminophen Tablet 650 mg, Tablet, By Mouth, 06/18/22 10:00:00 EDT Start Date: 06/18/22 Stop Date: 06/18/22 Status: Completedbenztropine 1 mg oral tablet 1 mg, 1, tablet, By Mouth, 2 times a day, # 60 tablet, Refills 0, Tot. Refills 0, Maintenance, 01/01/20 16:15:00 EDT, Route to Pharmacy Electronically, [facility]/pharmacy #[id number], 163, cm, 01/01/20 14:39:00 EDT, Height, 86.5, kg, 12/19/19 19:14:00 EDT, Dry We... Start Date: 01/01/20 Stop Date: 01/31/20 Status: Orderedcetirizine 10 mg oral tablet 1 tablet, By Mouth, Daily, # 30 tablet, 2 Refills, 04/28/22 15:16:00 EDT, [facility]/pharmacy #[id number], 163, cm, 09/24/21 16:23:00 EST, Height, 112, kg, 10/14/20 10:13:00 EST, Dry Weight Start Date: 04/28/22 Status: Ordereddocusate sodium 100 mg oral capsule 1 capsule, By Mouth, 2 times a day, # 60 capsule, 5 Refills, [facility] ST[facility] [id number], 163, cm, 09/24/21 16:23:00 EST, Height, 112, kg, 10/14/20 10:13:00 EST, Dry Weight Start Date: 02/03/22 Status: OrderedEstradiol Patch 0.1 mg/24 hours twice weekly transdermal film, extended release See Instructions, APPLY 1 PATCH TOPICALLY EVERY TUESDAY & TUESDAY, # 24 patch, 4 Refills, [facility] [id number], 84, APPLY 1 PATCH TOPICALLY EVERY TUESDAY [...] EST, Dry Weight Start Date: 03/04/22 Status: Orderedibuprofen 800 mg oral tablet 800 mg, 1, tablet, By Mouth, 3 times a day, Refills 0, Maintenance, 06/15/22 12:52:00 EDT, Partial fill upon patient request if the prescription is for a schedule II opioid drug. Start Date: 06/15/22 Status: Orderedlithium 300 mg oral capsule 1 capsule = 300 mg, By Mouth, Daily in AM, Maintenance, 05/25/22 18:23:00 EDT, Capsule Start Date: 05/25/22 Status: Orderedlithium 600 mg oral capsule 1 capsule = 600 mg, By Mouth, Daily at bedtime, # 30 capsule, 0 Refills, Maintenance, 01/01/20 16:16:00 EDT, Capsule, [facility]/pharmacy #[id number], 163, cm, 01/01/20 [...] EST, Dry Weight Start Date: 03/13/21 Status: Orderedomeprazole 20 mg oral delayed release tablet 1 tablet = 20 mg, By Mouth, Daily, do not crush or chew, # 30 tablet, 0 Refills, Maintenance, 06/18/22 9:55:00 EDT, CR Tablet, [facility]/pharmacy #[id number], Partial fill upon patient request if the prescription is for a schedule II opioid drug., 162, cm, ... Start Date: 06/18/22 Status: Orderedomeprazole 20 mg oral enteric coated capsule 1 capsule, By Mouth, Daily, # 90 capsule, 0 Refills, [facility] [id number], 163, cm, 09/24/21 16:23:00 EST, Height, 112, kg, 10/14/20 10:13:00 EST, Dry Weight Start Date: 03/04/22 Status: OrderedoxyCODONE 5 mg oral tablet 5 mg, 1, tablet, By Mouth, Every 4 hours, PRN, for 3 days, # 12 tablet, Refills 0, Tot. Refills 0, Acute 06/21/22 9:56:00 EDT, Pain , Moderate, 06/18/22 9:56:00 EDT, [id number] fill upon patient reque... Start Date: 06/18/22 Stop Date: 06/21/22 Status: Orderedperphenazine 16 mg oral tablet 16 mg, 1, tablet, By Mouth, 2 times a day, # 60 tablet, Refills 0, Tot. Refills 0, Maintenance, 01/01/20 16:18:00 EDT, [id number] 163, cm, 01/01/20 [...] tablet, 3 Refills, Maintenance, 06/10/22 17:26:00 EDT, [facility] ST[facility] [id number], 169, cm, 05/25/22 15:07:00 EDT, Height, 95, kg, 05/25/22 15:07:00 EDT, Dry Weight Start Date: 06/10/22 Status: Orderedsimethicone 125 mg oral capsule See Instructions, TAKE 1 CAPSULE BY MOUTH THREE TIMES A DAY AFTER MEALS AND AT BEDTIME NEEDED, # 48 capsule, 11 Refills, [facility] [id number], 163, cm, 09/24/21 16:23:00 EST, Height, 112, kg, 10/14/20 10:13:00 EST, Dry Weight Start Date: 01/15/22 Status: Ordered Problem List Condition Effective Dates Status Health Status Informant Last pap smear 08/31/19 Active negative(Confirmed) Chronic constipation(Confirmed) Active Chronic post-traumatic stress Active disorder(Confirmed) Depression(Confirmed) Active alcohol syndrome(Confirmed) Active Foster Care (Status)(Confirmed) Active Chronic GERD(Confirmed) Active Hyperprolactinemia(Confirmed) Active Iron deficiency anemia(Confirmed) Active Obese class II(Confirmed) Active Obesity(Confirmed) Active Oligomenorrhea(Confirmed) Active Personality disorder(Confirmed) Active Poor historian(Confirmed) Active Psychosis(Confirmed) 2009 Active Schizoaffective Active schizophrenia(Confirmed) History of suicidal ideation w/ Active suicide attempt(Confirmed) Weight gain with seroquel in the Active past(Confirmed)1 1Really accelerated when seroquel dose increased Vital Signs Most recent to oldest 1 2 3 [Reference Range]: Height 162 cm 162 cm 162 cm (06/18/22 11:00 AM) (06/18/22 7:00 AM) (06/18/22 2: 23 AM) Weight 98 kg 99 kg 99 kg (06/15/22 6:40 PM) (06/15/22 2:31 PM) (06/14/22 3:5 2 PM) Oxygen Saturation [94-100 100 % 100 % 100 % %] (06/18/22 11:00 AM) (06/18/22 7:00 AM) (06/18/22 2: 23 AM) Pulse Rate [55-90 bpm] 79 bpm 85 bpm 71 bpm (06/18/22 11:00 AM) (06/18/22 7:00 AM) (06/18/22 2: 23 AM) Body Mass Index [18.5-24.99 37.34 kg/m2 37.72 kg/m2 kg/m2] *>HHI* *>HHI* (06/15/22 6:40 PM) (06/15/22 2:31 PM) Body Mass Index 37.72 [18.5-24.99] *>HHI* (06/14/22 3:52 PM) Blood Pressure 113/74 mm Hg 110/88 mm Hg 112/64 mm Hg [90-138/55-84 mm Hg] (06/18/22 11:00 AM) (06/18/22 7:00 AM) ( 2:23 AM) Respiratory Rate [16-30 18 br/min 18 br/min 18 br/mi n br/min] (06/18/22 11:25 AM) (06/18/22 11:00 AM) (06/18/22 7 :00 AM) Temperature [96.8-100.4 98.9 DegF 97.8 DegF 98.2 Deg F DegF] (06/18/22 11:00 AM) (06/18/22 7:00 AM) (06/18/22 2: 23 AM) Liters per Minute 4 L/min (06/15/22 5:15 PM) Mode of Delivery (Oxygen) Room air Room air Room a ir (06/18/22 11:00 AM) (06/18/22 7:00 AM) (06/18/22 2: 23 AM) Blood pressure sites Arm, left Arm, left Arm, right (06/18/22 11:00 AM) (06/18/22 7:00 AM) (06/18/22 2: 23 AM) Temperature Route Oral Oral Oral (06/18/22 11:00 AM) (06/18/22 7:00 AM) (06/18/22 2: 23 AM) Dry Weight 100 kg 99 kg 99 kg (06/15/22 6:40 PM) (06/14/22 3:52 PM) (06/14/22 9:3 6 AM) Weight Obtained Via Bed scale Patient/family stated (06/15/22 6:40 PM) (06/14/22 9:35 AM) Social History Social History Type Response Tobacco Use: 4 or less cigarettes(le ss than 1/4 pack)/day in last 30 days. Sex Care Team PersonnelName: Fatoumata Stokes DO Address: [address] [place] [address] [facility] [address]
--- OUTSIDE RECORDS SUMMARY | 2022-06-29 21:25 | XMS_ITS | Continuity of Care Document ---
:1990 Author Organization [facility] Address [address] [place] [address]- Care Team Providers Name Role Phone Fatoumata Stokes DO Primary Care Physician Encounter [facility] Date(s): 06/22/20 - 06/23/[address] [address]- [facility] Discharge Disposition: A-D/C Home Attending Physician: Jani Bonner MD Admitting Physician: Jani Bonner MD Referring Physician: Not on Staff, Referring MD Allergies, Adverse Reactions, Alerts Substance Reaction Severity Status Flagyl Active cloZAPine Active Invega Active paliperidone Active Immunizations Given and Recorded [...] EST, Route to Pharmacy Electronically, [facility]/pharmacy #[id number], 159, cm, 11/19/19 8:17:00 EST, Height, 89.7, kg, 11/14/19 9... Start Date: 11/22/19 Status: OrderedAquaphor Healing topical ointment See Instructions, APPLY TO NIPPLE DAILY NEEDED FOR DISCOMFORT, # 50 Gm, 0 Refills, Maintenance, [facility] STORE [id number], 7, APPLY TO NIPPLE DAILY NEEDED FOR DISCOMFORT, 159, cm, 12/10/19 11:02:00 EDT, Height, 86.7, kg, 12/10/19 11:02:00 EDT, Dry Weight Start Date: 12/10/19 Status: Orderedbenztropine 1 mg oral tablet 1 mg, 1, tablet, By Mouth, 2 times a day, # 60 tablet, Refills 0, Tot. Refills 0, Maintenance, 01/01/20 16:15:00 EDT, Route to Pharmacy Electronically, [facility]/pharmacy #[id number], 163, cm, 01/01/20 14:39:00 EDT, Height, 86.5, kg, 12/19/19 19:14:00 EDT, Dry We... Start Date: 01/01/20 Stop Date: 01/31/20 Status: OrderedDepo-Provera Contraceptive 150 mg/mL intramuscular suspension 1 mL = 150 mg, Intramuscular, Every 3 months, # 1 mL, 3 Refills, Maintenance, 05/28/20 11:29:00 EDT,Suspension, [facility], 163, cm, 05/28/20 11:24:00 EDT, [...] patch, 6 Refills, Maintenance, 05/28/20 11:01:00 EDT, [facility]/pharmacy #[id number], 163, cm, 04/03/20 14:59:00 EDT, Height, 88.9, kg, 04/03/20 14:59:00 EDT, DryWeight Start Date: 05/28/20 Status: OrderedEucerin Plus topical lotion 1 application, Topically, 2 times a day, PRN for dry skin, May apply to affected area every 6 hours as needed, up to 2 times/day, # 180 mL, 11 Refills, Maintenance, 08/06/19 12:15:04 EST, Lotion, [facility]/pharmacy #[id number] Start Date: 08/06/19 Status: Orderedferrous sulfate 325 mg oral enteric coated tablet 325 mg, 1, tablet, By Mouth, Daily, # 30 tablet, Refills 11, Tot. Refills 11, Maintenance, 01/08/20 11:07:00 EDT, Route to Pharmacy Electronically, [facility]/pharmacy #[id number], 163, cm, 01/02/20 7:50:00 EDT, Height, 86.5, kg, 12/19/19 19:14:00 EDT, Dry Weight Start Date: 01/08/20 Status: OrderedFlonase 50 mcg/inh nasal spray 1 sprays, Nares, Both, 2 times a day, # 16 Gm, 3 Refills, Maintenance, 04/03/20 15:37:00 EDT, [place],[facility]/pharmacy #[id number], 1 sprays Nares, Both 2 times a day, 163, cm, 04/03/20 14:59:00 EDT, Height, 88.9, kg, 04/03/20 14:59:00 EDT, Dry Weight Start Date: 04/03/20 Status: Orderedlithium 300 mg oral tablet 1 tablet = 300 mg, By Mouth, Daily in AM, # 30 tablet, 0 Refills, Maintenance, 01/01/20 16:16:00 EDT, Tablet, [facility]/pharmacy #[id number], 163, cm, 01/01/20 14:39:00 EDT, Height, 86.5, kg, 12/19/19 19:14:00 EDT, Dry Weight Start Date: 01/01/20 Stop Date: 01/29/20 Status: Orderedlithium 600 mg oral capsule 1 capsule = 600 mg, By Mouth, Daily at bedtime, # 30 capsule, 0 Refills, Maintenance, 01/01/20 16:16:00 EDT, Capsule, [facility]/pharmacy #[id number], 163, cm, 01/01/20 14:39:00 [...] Maintenance, 01/08/20 11:07:00 EDT, EC Capsule, [facility]/pharmacy #[id number], 163, cm, 01/02/20 7:50:00 EDT, Height, 86.5, kg, 12/19/19 19:14:00 EDT, Dry Weight Start Date: 01/08/20 Status: Orderedperphenazine 16 mg oral tablet 16 mg, 1, tablet, By Mouth, 2 times a day, # 60 tablet, Refills 0, Tot. Refills 0, Maintenance, 01/01/20 16:18:00 EDT, Route to Pharmacy Electronically, [facility]/pharmacy #[id number], 163, cm, 01/01/20 14:39:00 [...] EDT, Route to Pharmacy Electronically, [facility]/pharmacy... Start Date: 01/02/20 Status: Orderedsimethicone 125 mg oral capsule See Instructions, TAKE 1 CAPSULE BY MOUTH THREE TIMES A DAY AFTER MEALS AND AT BEDTIME NEEDED, # 48 capsule, 2 Refills, Acute, [facility] [id number], 163, cm, 05/28/20 11:24:00 EDT, Height, 88.9, kg, 04/03/20 14:59:00 EDT, Dry Weight Start Date: 06/03/20 Status: OrderedTums 500 mg oral tablet, chewable 1,000 mg, 2, tablet, Chew, Every 6 hours, PRN, # 120 tablet, Refills 11, Tot. Refills 11, Maintenance, for indigestion, 08/06/19 12:12:32 EST, Route to Pharmacy Electronically, [facility]/pharmacy #[id number] Start Date: 08/06/19 Stop Date: 07/01/20 Status: OrderedZyrTEC 10 mg oral tablet 1 tablet = 10 mg, By Mouth, Daily, # 30 tablet, 3 Refills, Maintenance, 04/03/20 15:37:00 EDT, Tablet, [facility]/pharmacy #[id number], 163, cm, 04/03/20 14:59:00 [...] to oldest 1 2 3 [Reference Range]: Weight 102.3 kg 102.3 kg 102.3 kg (06/22/20 11:55 PM) (06/22/20 7:05 PM) (06/22/20 6: 55 PM) Oxygen Saturation [94-100 100 % 100 % %] (06/22/20 11:55 PM) (06/22/20 6:55 PM) Pulse Rate [55-90 bpm] 78 bpm 96 bpm (06/22/20 11:55 PM) *H* (06/22/20 6:55 PM) Blood Pressure 122/68 mm Hg 130/94 mm Hg [90-138/55-84 mm Hg] (06/22/20 11:55 PM) (06/22/20 6:55 PM) Respiratory Rate [16-30 18 br/min 22 br/min br/min] (06/22/20 11:55 PM) (06/22/20 6:55 PM) Temperature [96.8-100.4 98.1 DegF 99.3 DegF DegF] (06/22/20 11:55 PM) (06/22/20 6:55 PM) Liters per Minute 0 L/min (06/22/20 6:55 PM) Mode of Delivery (Oxygen) Room air Room air (06/22/20 11:55 PM) (06/22/20 6:55 PM) Blood pressure sites Arm, left Arm, right (06/22/20 11:55 PM) (06/22/20 6:55 PM) Temperature Route Oral Oral (06/22/20 11:55 PM) (06/22/20 6:55 PM) Dry Weight 102.3 kg 102.3 kg 102.3 kg (06/22/20 11:55 PM) (06/22/20 7:05 PM) (06/22/20 6: 55 PM) Weight Obtained Via Patient/family stated (06/22/20 6:55 PM) Dry Weight Obtained Via Patient/family stated (06/22/20 6:55 PM) Social History Social History Type Response Tobacco Use: 4 or less cigarettes(le ss than 1/4 pack)/day in last 30 days. Sex
--- OUTSIDE RECORDS SUMMARY | 2022-06-29 21:25 | XMS_ITS | Continuity of Care Document ---
:1990 Author Organization [facility] Address [address] [place] [address]- Care Team Providers Name Role Phone Fatoumata Stokes DO Primary Care Physician Encounter [facility] Date(s): 08/25/20 - 09/24/20 [facility] [address] [place], [place] [address] Attending Physician: Jada Torres Admitting Physician: Jada [...] 11/22/19 13:30:00 EST, Route to Pharmacy Electronically, [facility]/pharmacy #[id number], 159, cm, 11/19/19 8:17:00 EST, Height, 89.7, kg, 11/14/19 9... Start Date: 11/22/19 Status: OrderedAquaphor Healing topical ointment See Instructions, APPLY TO NIPPLE DAILY NEEDED FOR DISCOMFORT, # 50 Gm, 0 Refills, Maintenance, [facility] STORE [id number], 7, APPLY TO NIPPLE DAILY NEEDED FOR DISCOMFORT, 159, cm, 12/10/19 11:02:00 EDT, Height, 86.7, kg, 12/10/19 11:02:00 EDT, Dry Weight Start Date: 12/10/19 Status: Orderedbenztropine 1 mg oral tablet 1 mg, 1, tablet, By Mouth, 2 times a day, # 60 tablet, Refills 0, Tot. Refills 0, Maintenance, 01/01/20 16:15:00 EDT, Route to Pharmacy Electronically, [facility]/pharmacy #[id number], 163, cm, 01/01/20 14:39:00 EDT, Height, 86.5, kg, 12/19/19 19:14:00 EDT, Dry We... Start Date: 01/01/20 Stop Date: 01/31/20 Status: OrderedDepo-Provera Contraceptive 150 mg/mL intramuscular suspension 1 mL = 150 mg, Intramuscular, Every 3 months, # 1 mL, 3 Refills, Maintenance, 08/26/20 9:54:00 EST, Suspension, [facility], 163, cm, 05/28/20 11:24:00 EDT, Height, 100, kg, 08/04/20 11:40:00 EST, Dry Weight Start Date: 08/26/20 Status: Ordereddocusate sodium 100 mg oral capsule 100 mg, 1, capsule, By Mouth, 2 times a day, # 60 capsule, Refills 11, Tot. Refills 11, Maintenance,01/08/20 11:07:00 EDT, [id number], cm, 01/02/20 7:50:00 EDT, Height, 86.5, kg, 12/19/19 19:14:00 EDT, D... Start Date: 01/08/20 Stop Date: 01/02/21 Status: Orderedestradiol 0.1 mg/24 hours twice weekly transdermal film, extended release 1 patch, Topically, Every Tuesday and , # 8 patch, 6 Refills, Maintenance, 05/28/20 11:01:00 EDT, [facility]/pharmacy #[id number], 163, cm, 04/03/20 14:59:00 EDT, Height, 88.9, kg, 04/03/20 14:59:00 EDT, DryWeight Start Date: 05/28/20 Status: OrderedEucerin Plus topical lotion 1 application, Topically, 2 times a day, PRN for dry skin, May apply to affected area every 6 hours as needed, up to 2 times/day, # 180 mL, 11 Refills, Maintenance, 08/06/19 12:15:04 EST, Lotion, [facility]/pharmacy #[id number] Start Date: 08/06/19 Status: Orderedferrous sulfate 325 mg oral enteric coated tablet 325 mg, 1, tablet, By Mouth, Daily, # 30 tablet, Refills 11, Tot. Refills 11, Maintenance, 01/08/20 11:07:00 EDT, Route to Pharmacy Electronically, [facility]/pharmacy #[id number], 163, cm, 01/02/20 7:50:00 EDT, Height, 86.5, kg, 12/19/19 19:14:00 EDT, Dry Weight Start Date: 01/08/20 Status: OrderedFlonase 50 mcg/inh nasal spray 1 sprays, Nares, Both, 2 times a day, # 16 Gm, 5 Refills, Maintenance, 07/04/20 9:01:00 EDT, Reading, [facility]/pharmacy #[id number], 1 sprays Nares, Both 2 times a day, 163, cm, 05/28/20 11:24:00 EDT, Height, 102.3, kg, 06/22/20 23:55:00 EDT, Dry Weight Start Date: 07/04/20 Status: Orderedlithium 300 mg oral tablet 1 tablet = 300 mg, By Mouth, Daily in AM, # 30 tablet, 0 Refills, Maintenance, 01/01/20 16:16:00 EDT, Tablet, [facility]/pharmacy #[id number], 163, cm, 01/01/20 14:39:00 EDT, Height, 86.5, kg, 12/19/19 19:14:00 EDT, Dry Weight Start Date: 01/01/20 Stop Date: 01/29/20 Status: Orderedlithium 600 mg oral capsule 1 capsule = 600 mg, By Mouth, Daily at bedtime, # 30 capsule, 0 Refills, Maintenance, 01/01/20 16:16:00 EDT, Capsule, [facility]/pharmacy #[id number], 163, cm, 01/01/20 14:39:00 [...] Refills, Maintenance, 07/11/20 15:38:00 EDT, REC Powder, [facility]/pharmacy #[id number], 17 Gm By Mouth Daily,Instr:dissolve in water before taking, 163, cm, 05/28/20 11:24:00 EDT, Height, 102... Start Date: 07/11/20 Status: Orderedomeprazole 20 mg oral enteric coated capsule 1 capsule = 20 mg, By Mouth, Daily, # 30 capsule, 5 Refills, Maintenance, 07/07/20 11:44:00 EDT, EC Capsule, [facility]/pharmacy #[id number], 163, cm, 05/28/20 11:24:00 EDT, Height, 102.3, kg, 06/22/20 23:55:00 EDT, Dry Weight Start Date: 07/07/20 Status: Orderedperphenazine 16 mg oral tablet 16 mg, 1, tablet, By Mouth, 2 times a day, # 60 tablet, Refills 0, Tot. Refills 0, Maintenance, 01/01/20 16:18:00 EDT, Route to Pharmacy Electronically, [facility]/pharmacy #[id number], 163, cm, 01/01/20 14:39:00 [...] 01/02/20 4:30:00 EDT, Route to Pharmacy Electronically, [facility]/pharmacy... Start Date: 01/02/20 Status: Orderedsimethicone 125 mg oral capsule See Instructions, TAKE 1 CAPSULE BY MOUTH THREE TIMES A DAY AFTER MEALS AND AT BEDTIME NEEDED, # 48 capsule, 2 Refills, Maintenance, 08/13/20 17:29:00 EST, [facility]/pharmacy #[id number], 163, cm, 05/28/20 11:24:00 EDT, Height, 100, kg, 08/04/20 11:40:00 EST,... Start Date: 08/13/20 Status: OrderedTums 500 mg oral tablet, chewable 1,000 mg, 2, tablet, Chew, Every 6 hours, PRN, # 120 tablet, Refills 11, Tot. Refills 11, Maintenance, for indigestion, 08/06/19 12:12:32 EST, Route to Pharmacy Electronically, [facility]/pharmacy #[id number] Start Date: 08/06/19 Stop Date: 07/01/20 Status: OrderedZyrTEC 10 mg oral tablet 1 tablet = 10 mg, By Mouth, Daily, # 30 tablet, 5 Refills, Maintenance, 07/22/20 15:24:00 EDT, Tablet, [facility]/pharmacy #[id number], 163, cm, 05/28/20 11:24:00 [...]
--- OUTSIDE RECORDS SUMMARY | 2022-06-29 21:25 | XMS_ITS | Continuity of Care Document ---
:1990 Author Organization [facility] Address [address] [place] [address]- Care Team Providers Name Role Phone Fatoumata Stokes DO Primary Care Physician Encounter [facility] Date(s): 06/12/21 - 09/27/[address], [address] [place] [id number] Attending Physician: Lucía TORRES, [place] Allergies, [...] 05/28/21 7:42:00 EDT, Route to Pharmacy Electronically, [facility]/pharmacy #[id number], 164, cm, 04/07/21 15:35:00 EDT, Height, 112, kg, 10/14/20 10... Start Date: 05/28/21 Status: OrderedBenefiber oral powder for reconstitution 5 mL, By Mouth, 2 times a day, PRN as needed for constipation, dissolve in 4 to 8 oz of beverage or soft food- hot or cold, # 155 Gm, 11 Refills, Maintenance, 03/05/21 15:58:00 EDT, REC Powder, [facility]/pharmacy #[id number], Partial fill upon patient request if... Start Date: 03/05/21 Status: Orderedbenztropine 1 mg oral tablet 1 mg, 1, tablet, By Mouth, 2 times a day, # 60 tablet, Refills 0, Tot. Refills 0, Maintenance, 01/01/20 16:15:00 EDT, Route to Pharmacy Electronically, [facility]/pharmacy #[id number], 163, cm, 01/01/20 14:39:00 EDT, Height, 86.5, kg, 12/19/19 19:14:00 EDT, Dry We... Start Date: 01/01/20 Stop Date: 01/31/20 Status: Orderedcetirizine 10 mg oral tablet 1 tablet, By Mouth, Daily, # 30 tablet, 2 Refills, [id number], 164, cm, 05/28/21 13:07:00 EDT, Height, 112, kg, 10/14/20 10:13:00 EST, Dry Weight Start Date: 07/08/21 Status: Ordereddocusate sodium 100 mg oral capsule 1 capsule, By Mouth, 2 times a day, # 60 capsule, 5 Refills, Maintenance, 07/27/21 14:02:00 EDT, [facility]/pharmacy #[id number], 164, cm, 05/28/21 13:07:00 EDT, Height, 112, kg, 10/14/20 10:13:00 EST, Dry Weight Start Date: 07/27/21 Status: OrderedEstradiol Patch 0.1 mg/24 hours twice weekly transdermal film, extended release See Instructions, APPLY 1 PATCH TOPICALLY EVERY TUESDAY & TUESDAY, # 8 patch, 12 Refills, 03/13/21 13:04:00 EDT, [facility]/pharmacy #[id number], 28, APPLY 1 PATCH TOPICALLY EVERY TUESDAY & TUESDAY, 164, cm, 03/13/21 9:51:00 EDT, Height, 112, kg, 10/14/20 10:13:00... Start Date: 03/13/21 Status: Orderedferrous sulfate 325 mg oral enteric coated tablet 1, tablet, By Mouth, Daily, # 90 tablet, Refills 1, Route to Pharmacy Electronically, [id number], 164, cm, 05/28/21 13:07:00 EDT, Height, 112, kg, 10/14/20 10:13:00 EST, Dry Weight Start Date: 07/08/21 Status: Orderedfluticasone 50 mcg/inh nasal spray See Instructions, USE 1 SPRAY IN EACH NOSTRIL TWICE A DAY, # 16 mL, 5 Refills, Maintenance, [facility] ST[id number], 30, USE 1 SPRAY IN EACH NOSTRIL TWICE A DAY, 164, cm, 10/14/20 10:13:00 EST, Height, 112, kg, 10/14/20 10:13:00 EST, Dry Weight Start Date: 03/06/21 Status: Orderedlithium 300 mg oral tablet 1 tablet = 300 mg, By Mouth, Daily in AM, # 30 tablet, 0 Refills, Maintenance, 01/01/20 16:16:00 EDT, Tablet, [facility]/pharmacy #[id number], 163, cm, 01/01/20 14:39:00 EDT, Height, 86.5, kg, 12/19/19 19:14:00 EDT, Dry Weight Start Date: 01/01/20 Stop Date: 01/29/20 Status: Orderedlithium 600 mg oral capsule 1 capsule = 600 mg, By Mouth, Daily at bedtime, # 30 capsule, 0 Refills, Maintenance, 01/01/20 16:16:00 EDT, Capsule, [facility]/pharmacy #[id number], 163, cm, 01/01/20 14:39:00 EDT, Height, 86.5, kg, 12/19/19 19:14:00 EDT, Dry Weight Start Date: 01/01/20 Stop Date: 03/01/20 Status: OrderedmedroxyPROGESTERone 150 mg/mL intramuscular suspension 1 mL, Intramuscular, Every 3 months, # 1 mL, 3 Refills, Soft Stop, 03/13/21 13:05:00 EDT, [facility]/pharmacy #[id number], 164, cm, 03/13/21 9:51:00 EDT, Height, 112, kg, 10/14/20 10:13:00 EST, Dry Weight Start Date: 03/13/21 Status: OrderedmedroxyPROGESTERone 150 mg/mL intramuscular suspension See Instructions, INJECT 1 ML INTRAMUSCULARLY EVERY 3 MONTHS, # 1 mL, 3 Refills, [facility], 164, cm, 05/28/21 13:07:00 EDT, Height, 112, kg, 10/14/20 10:13:00 EST, Dry Weight Start Date: 09/07/21 Status: OrderedMiraLax oral powder for reconstitution = 17 Gm, By Mouth, Daily, dissolve in water before taking, # 255 Gm, 0 Refills, Maintenance, 07/11/20 15:38:00 EDT, REC Powder, [facility]/pharmacy #[id number], 17 Gm By Mouth Daily,Instr:dissolve in water before taking, 163, cm, 05/28/20 11:24:00 EDT, Height, 102... Start Date: 07/11/20 Status: Orderedomeprazole 20 mg oral enteric coated capsule 1 capsule, By Mouth, Daily, # 90 capsule, 0 Refills, [id number], 164, cm, 05/28/21 13:07:00 EDT, Height, 112, kg, 10/14/20 10:13:00 EST, Dry Weight Start Date: 09/12/21 Status: Orderedperphenazine 16 mg oral tablet 16 mg, 1, tablet, By Mouth, 2 times a day, # 60 tablet, Refills 0, Tot. Refills 0, Maintenance, 01/01/20 16:18:00 EDT, Route to Pharmacy Electronically, [facility]/pharmacy #[id number], 163, cm, 01/01/20 14:39:00 EDT, Height, 86.5, kg, 12/19/19 19:14:00 EDT, Dry W... Start Date: 01/01/20 Status: Orderedperphenazine 8 mg oral tablet 8 mg, 1, tablet, By Mouth, 2 times a day, PRN, Indicated for severe agitation/psychosis and to be taken 8 hours apart, # 60 tablet, Refills 0, Tot. Refills 0, Maintenance, Psychosis, 01/02/20 4:30:00 EDT, Route to Pharmacy Electronically, [facility]/pharmacy... Start Date: 01/02/20 Status: OrderedSenna-Time 8.6 mg oral tablet 1 tablet, By Mouth, Daily at bedtime, PRN NEEDED FOR CONSTIPATION, # 60 tablet, 1 Refills, [facility] [id number], 164, cm, 05/28/21 13:07:00 EDT, Height, 112, kg, 10/14/20 10:13:00 EST, Dry Weight Start Date: 08/31/21 Status: Orderedsimethicone 125 mg oral capsule See Instructions, TAKE 1 CAPSULE BY MOUTH THREE TIMES A DAY AFTER MEALS AND AT BEDTIME NEEDED, # 48 capsule, 11 Refills, [id number], 164, cm, 04/07/21 15:35:00 EDT, Height, 112, [...]
--- OUTSIDE RECORDS SUMMARY | 2022-06-29 21:25 | XMS_ITS | Continuity of Care Document ---
:1990 Author Organization [facility] Address [address] [place] [phone]- Care Team Providers Name Role Phone Fatoumata Stokes DO Primary Care Physician [facility] Date(s): 07/26/21 - 07/26/[address] [address]- Encounter Diagnosis Paranoid (Final) - 07/26/21 Discharge Disposition: A-D/C Home Attending Physician: Franci Marshall MD Admitting Physician: Franci Marshall MD Referring Physician: Not on Staff, Referring [...] 05/28/21 7:42:00 EDT, Route to Pharmacy Electronically, [facility]/pharmacy #[id number], 164, cm, 04/07/21 15:35:00 EDT, Height, 112, kg, 10/14/20 10... Start Date: 05/28/21 Status: OrderedBenefiber oral powder for reconstitution 5 mL, By Mouth, 2 times a day, PRN as needed for constipation, dissolve in 4 to 8 oz of beverage or soft food- hot or cold, # 155 Gm, 11 Refills, Maintenance, 03/05/21 15:58:00 EDT, REC Powder, [facility]/pharmacy #[id number], Partial fill upon patient request if... Start Date: 03/05/21 Status: Orderedbenztropine 1 mg oral tablet 1 mg, 1, tablet, By Mouth, 2 times a day, # 60 tablet, Refills 0, Tot. Refills 0, Maintenance, 01/01/20 16:15:00 EDT, Route to Pharmacy Electronically, [facility]/pharmacy #[id number], 163, cm, 01/01/20 14:39:00 EDT, Height, 86.5, kg, 12/19/19 19:14:00 EDT, Dry We... Start Date: 01/01/20 Stop Date: 01/31/20 Status: Orderedcetirizine 10 mg oral tablet 1 tablet, By Mouth, Daily, # 30 tablet, 2 Refills, [facility] STORE [id number], 164, cm, 05/28/21 13:07:00 EDT, Height, 112, kg, 10/14/20 10:13:00 EST, Dry Weight Start Date: 07/08/21 Status: Ordereddocusate sodium 100 mg oral capsule 1 capsule, By Mouth, 2 times a day, # 60 capsule, 5 Refills, Maintenance, 01/12/21 20:05:00 EDT, [id number], 164, cm, 10/14/20 10:13:00 EST, Height, 112, kg, 10/14/20 10:13:00 EST, Dry Weight Start Date: 01/12/21 Status: OrderedEstradiol Patch 0.1 mg/24 hours twice weekly transdermal film, extended release See Instructions, APPLY 1 PATCH TOPICALLY EVERY TUESDAY & TUESDAY, # 8 patch, 12 Refills, 03/13/21 13:04:00 EDT, [facility]/pharmacy #[id number], 28, APPLY 1 PATCH TOPICALLY EVERY TUESDAY & TUESDAY, 164, cm, 03/13/21 9:51:00 EDT, Height, 112, kg, 10/14/20 10:13:00... Start Date: 03/13/21 Status: Orderedferrous sulfate 325 mg oral enteric coated tablet 1, tablet, By Mouth, Daily, # 90 tablet, Refills 1, Route to Pharmacy Electronically, [facility] STORE [id number], 164, cm, 05/28/21 13:07:00 EDT, Height, 112, kg, 10/14/20 10:13:00 EST, Dry Weight Start Date: 07/08/21 Status: Orderedfluticasone 50 mcg/inh nasal spray See Instructions, USE 1 SPRAY IN EACH NOSTRIL TWICE A DAY, # 16 mL, 5 Refills, Maintenance, [facility] STORE [id number], 30, USE 1 SPRAY IN EACH NOSTRIL TWICE A DAY, 164, cm, 10/14/20 10:13:00 EST, Height, 112, kg, 10/14/20 10:13:00 EST, Dry Weight Start Date: 03/06/21 Status: Orderedlithium 300 mg oral tablet 1 tablet = 300 mg, By Mouth, Daily in AM, # 30 tablet, 0 Refills, Maintenance, 01/01/20 16:16:00 EDT, Tablet, [facility]/pharmacy #[id number], 163, cm, 01/01/20 14:39:00 EDT, Height, 86.5, kg, 12/19/19 19:14:00 EDT, Dry Weight Start Date: 01/01/20 Stop Date: 01/29/20 Status: Orderedlithium 600 mg oral capsule 1 capsule = 600 mg, By Mouth, Daily at bedtime, # 30 capsule, 0 Refills, Maintenance, 01/01/20 16:16:00 EDT, Capsule, [facility]/pharmacy #[id number], 163, cm, 01/01/20 14:39:00 EDT, Height, 86.5, kg, 12/19/19 19:14:00 EDT, Dry Weight Start Date: 01/01/20 Stop Date: 03/01/20 Status: OrderedmedroxyPROGESTERone 150 mg/mL intramuscular suspension 1 mL, Intramuscular, Every 3 months, # 1 mL, 3 Refills, Soft Stop, 03/13/21 13:05:00 EDT, [facility]/pharmacy #[id number], 164, cm, 03/13/21 9:51:00 EDT, Height, 112, kg, 10/14/20 10:13:00 EST, Dry Weight Start Date: 03/13/21 Status: OrderedMiraLax oral powder for reconstitution = 17 Gm, By Mouth, Daily, dissolve in water before taking, # 255 Gm, 0 Refills, Maintenance, 07/11/20 15:38:00 EDT, REC Powder, [facility]/pharmacy #[id number], 17 Gm By Mouth Daily,Instr:dissolve in water before taking, 163, cm, 05/28/20 11:24:00 EDT, Height, 102... Start Date: 07/11/20 Status: Orderedomeprazole 20 mg oral enteric coated capsule 1 capsule, By Mouth, Daily, # 90 capsule, 0 Refills, Maintenance, 04/17/21 13:04:00 EDT, [id number], 164, cm, 04/07/21 15:35:00 EDT, Height, 112, kg, 10/14/20 10:13:00 EST, Dry Weight Start Date: 04/17/21 Status: Orderedperphenazine 16 mg oral tablet 16 mg, 1, tablet, By Mouth, 2 times a day, # 60 tablet, Refills 0, Tot. Refills 0, Maintenance, 01/01/20 16:18:00 EDT, Route to Pharmacy Electronically, [facility]/pharmacy #[id number], 163, cm, 01/01/20 14:39:00 [...] EDT, Route to Pharmacy Electronically, [facility]/pharmacy... Start Date: 01/02/20 Status: OrderedSenna 8.6 mg oral tablet 1, tablet, By Mouth, Daily at bedtime, PRN, # 60 tablet, Refills 1, Tot. Refills 0, Acute, NEEDEDFOR CONSTIPATION, 02/19/21 17:23:00 EDT, Route to Pharmacy Electronically, [id number], 164, cm,10/14/20 10:13:00 EST, Height, 112, kg, 10/14/20... Start Date: 02/19/21 Status: Orderedsimethicone 125 mg oral capsule See Instructions, TAKE 1 CAPSULE BY MOUTH THREE TIMES A DAY AFTER MEALS AND AT BEDTIME NEEDED, # 48 capsule, 11 Refills, [id number], 164, cm, 04/07/21 15:35:00 EDT, Height, 112, [...] Saturation [94-100 %] 99 % 100 % (07/26/21 9:50 AM) (07/26/21 6:59 AM) Pulse Rate [55-90 bpm] 88 bpm 89 bpm (07/26/21 9:50 AM) (07/26/21 6:59 AM) Blood Pressure [90-138/55-84 mm Hg] 149/91 mm Hg 125/ 69 mm Hg *H* (07/26/21 6:59 AM) (07/26/21 9:50 AM) Respiratory Rate [16-30 br/min] 16 br/min 18 br/mi n (07/26/21 9:50 AM) (07/26/21 6:59 AM) Temperature [96.8-100.4 DegF] 98.9 DegF 98.6 DegF (07/26/21 9:50 AM) (07/26/21 6:59 AM) Mode of Delivery (Oxygen) Room air Room air (07/26/21 9:50 AM) (07/26/21 6:59 AM) Temperature Route Oral Oral (07/26/21 9:50 AM) (07/26/21 6:59 AM) Social History Social History Type Response Tobacco Use: 4 or less cigarettes(le ss than 1/4 pack)/day in last 30 days. Sex Female
--- OUTSIDE RECORDS SUMMARY | 2022-06-29 21:26 | XMS_ITS | Continuity of Care Document ---
:1990 Author Organization [facility] Address [address] [place] [phone]- Care Team Providers Name Role Phone Fatoumata Stokes DO Primary Care Physician [facility] Date[facility]s): 03/02/20 - 03/03/[address] [address]- [facility] Discharge Disposition: A-D/C Home Attending Physician: Av Hall DO Admitting Physician: Av Hall DO Referring Physician: Not on Staff, Referring [...] 11/22/19 13:30:00 EST, Route to Pharmacy Electronically, [facility]/pharmacy #[id number], 159, cm, 11/19/19 8:17:00 EST, Height, 89.7, kg, 11/14/19 9... Start Date: 11/22/19 Status: OrderedAquaphor Healing topical ointment See Instructions, APPLY TO NIPPLE DAILY NEEDED FOR DISCOMFORT, # 50 Gm, 0 Refills, Maintenance, [facility] STORE [id number], 7, APPLY TO NIPPLE DAILY NEEDED FOR DISCOMFORT, 159, cm, 12/10/19 11:02:00 EDT, Height, 86.7, kg, 12/10/19 11:02:00 EDT, Dry Weight Start Date: 12/10/19 Status: Orderedbenztropine 1 mg oral tablet 1 mg, 1, tablet, By Mouth, 2 times a day, # 60 tablet, Refills 0, Tot. Refills 0, Maintenance, 01/01/20 16:15:00 EDT, Route to Pharmacy Electronically, [facility]/pharmacy #[id number], 163, cm, 01/01/20 14:39:00 EDT, Height, 86.5, kg, 12/19/19 19:14:00 EDT, Dry We... Start Date: 01/01/20 Stop Date: 01/31/20 Status: OrderedDepo-Provera Contraceptive 150 mg/mL intramuscular suspension 1 mL = 150 mg, Intramuscular, Every 3 months, # 1 mL, 3 Refills, Maintenance, 12/10/19 11:23:00 EDT,Suspension, [facility], 159, cm, 12/10/19 11:02:00 EDT, Height, 86.7, kg, 12/10/19 11:02:00 EDT, Dry Weight Start Date: 12/10/19 Status: Ordereddocusate sodium 100 mg oral capsule 100 mg, 1, capsule, By Mouth, 2 times a day, # 60 capsule, Refills 11, Tot. Refills 11, Maintenance,01/08/20 11:07:00 EDT, Route to Pharmacy Electronically, [facility]/pharmacy #[id number], 163, cm, 01/02/20 7:50:00 EDT, Height, 86.5, kg, 12/19/19 19:14:00 EDT, D... Start Date: 01/08/20 Stop Date: 01/02/21 Status: Orderedestradiol 0.1 mg/24 hours twice weekly transdermal film, extended release 1 patch, Topically, Every Tuesday and , # 8 patch, 6 Refills, Maintenance, 12/10/19 11:19:00 EDT, [facility]/pharmacy #[id number], 159, cm, 12/10/19 11:02:00 EDT, Height, 86.7, kg, 12/10/19 11:02:00 EDT, DryWeight Start Date: 12/10/19 Status: OrderedEucerin Plus topical lotion 1 application, Topically, 2 times a day, PRN for dry skin, May apply to affected area every 6 hours as needed, up to 2 times/day, # 180 mL, 11 Refills, Maintenance, 08/06/19 12:15:04 EST, Lotion, [facility]/pharmacy #[id number] Start Date: 08/06/19 Status: Orderedferrous sulfate 325 mg oral enteric coated tablet 325 mg, 1, tablet, By Mouth, Daily, # 30 tablet, Refills 11, Tot. Refills 11, Maintenance, 01/08/20 11:07:00 EDT, [id number], cm, 01/02/20 7:50:00 EDT, Height, 86.5, kg, 12/19/19 19:14:00 EDT, Dry Weight Start Date: 01/08/20 Status: Orderedlithium 300 mg oral tablet 1 tablet = 300 mg, By Mouth, Daily in AM, # 30 tablet, 0 Refills, Maintenance, 01/01/20 16:16:00 EDT, Tablet, [facility]/pharmacy #[id number], 163, cm, 01/01/20 14:39:00 EDT, Height, 86.5, kg, 12/19/19 19:14:00 EDT, Dry Weight Start Date: 01/01/20 Stop Date: 01/29/20 Status: Orderedlithium 600 mg oral capsule 1 capsule = 600 mg, By Mouth, Daily at bedtime, # 30 capsule, 0 Refills, Maintenance, 01/01/20 16:16:00 EDT, Capsule, [facility]/pharmacy #[id number], 163, cm, 01/01/20 14:39:00 [...] Refills, Maintenance, 01/08/20 11:07:00 EDT, EC Capsule, [facility]/pharmacy #[id number], 163, cm, 01/02/20 7:50:00 EDT, Height, 86.5, kg, 12/19/19 19:14:00 EDT, Dry Weight Start Date: 01/08/20 Status: Orderedperphenazine 16 mg oral tablet 16 mg, 1, tablet, By Mouth, 2 times a day, # 60 tablet, Refills 0, Tot. Refills 0, Maintenance, 01/01/20 16:18:00 EDT, Route to Pharmacy Electronically, [facility]/pharmacy #[id number], 163, cm, 01/01/20 14:39:00 [...] 01/02/20 4:30:00 EDT, Route to Pharmacy Electronically, [facility]/pharmacy... Start Date: 01/02/20 Status: OrderedTums 500 mg oral tablet, chewable 1,000 mg, 2, tablet, Chew, Every 6 hours, PRN, # 120 tablet, Refills 11, Tot. Refills 11, Maintenance, for indigestion, 08/06/19 12:12:32 EST, Route to Pharmacy Electronically, [facility]/pharmacy #[id number] Start Date: 08/06/19 Stop [...] to oldest [Reference 1 2 3 Range]: Weight 91.2 kg 91.2 kg 91.2 kg (03/03/20 10:02 AM) (03/03/20 8:39 AM) (03/03/20 2:01 AM) Oxygen Saturation [94-100 %] 100 % 100 % 100 % (03/03/20 10:02 AM) (03/03/20 8:39 AM) (03/03/20 2:01 AM) Pulse Rate [55-90 bpm] 92 bpm 88 bpm 84 bpm *H* (03/03/20 8:39 AM) (03/03/20 2:01 AM ) (03/03/20 10:02 AM) Blood Pressure [90-138/55-84 mm 117/61 mm Hg 135/68 mm Hg 124/79 mm Hg Hg] (03/03/20 10:02 AM) (03/03/20 8:39 AM) (03/03/20 2:01 AM) Respiratory Rate [16-30 br/min] 18 br/min 18 br/min 17 br/min (03/03/20 10:02 AM) (03/03/20 8:39 AM) (03/03/20 2:01 AM) Temperature [96.8-100.4 DegF] 98.4 DegF 98.4 DegF 98 .6 DegF (03/03/20 10:02 AM) (03/03/20 8:39 AM) (03/03/20 2:01 AM) Mode of Delivery (Oxygen) Room air Room air Room a ir (03/03/20 10:02 AM) (03/03/20 8:39 AM) (03/03/20 2:01 AM) Blood pressure sites Arm, right Arm, right Arm, right (03/03/20 10:02 AM) (03/03/20 8:39 AM) (03/03/20 2:01 AM) Temperature Route Oral Oral Oral (03/03/20 10:02 AM) (03/03/20 8:39 AM) (03/03/20 2:01 AM) Social History Social History Type Response Smoking Status Light tobacco smoker entered on: 09/26/14 Sex
--- OUTSIDE RECORDS SUMMARY | 2022-06-29 21:26 | XMS_ITS | Continuity of Care Document ---
:1990 Author Organization [facility] Address [address] [place] [id number]- Care Team Providers Name Role Phone Fatoumata Stokes DO Primary Care Physician [facility] Date(s): 10/17/20 - 10/17/[address] [address]- Encounter Diagnosis Auditory hallucination (Final) - 10/17/20 Discharge Disposition: A-D/C Home Attending Physician: Sharan Garay MD Admitting Physician: Sharan Garay MD Referring Physician: Not on Staff, Referring [...] Maintenance, [facility] STORE [id number], 7, APPLY TO NIPPLE DAILY NEEDED FOR DISCOMFORT, 159, cm, 12/10/19 11:02:00 EDT, Height, 86.7, kg, 12/10/19 11:02:00 EDT, Dry Weight Start Date: 12/10/19 Status: Orderedbenztropine 1 mg oral tablet 1 mg, 1, tablet, By Mouth, 2 times a day, # 60 tablet, Refills 0, Tot. Refills 0, Maintenance, 01/01/20 16:15:00 EDT, [id number], cm, 01/01/20 14:39:00 EDT, Height, 86.5, kg, 12/19/19 19:14:00 EDT, Dry We... Start Date: 01/01/20 Stop Date: 01/31/20 Status: OrderedDepo-Provera Contraceptive 150 mg/mL intramuscular suspension 1 mL = 150 mg, Intramuscular, Every 3 months, # 1 mL, 3 Refills, Maintenance, 08/26/20 9:54:00 EST, Suspension, [facility], 163, cm, 05/28/20 11:24:00 EDT, Height, 100, kg, 08/04/20 11:40:00 EST, Dry Weight Start Date: 08/26/20 Status: Ordereddocusate sodium 100 mg oral capsule 100 mg, 1, capsule, By Mouth, 2 times a day, # 60 capsule, Refills 11, Tot. Refills 11, Maintenance,01/08/20 11:07:00 EDT, [id number] 163, cm, 01/02/20 7:50:00 EDT, Height, 86.5, kg, 12/19/19 19:14:00 EDT, D... Start Date: 01/08/20 Stop Date: 01/02/21 Status: Orderedestradiol 0.1 mg/24 hours twice weekly transdermal film, extended release 1 patch, Topically, Every Tuesday and , # 8 patch, 6 Refills, Maintenance, 05/28/20 11:01:00 EDT, [facility]/pharmacy #[id number], 163, [...] Gm, 5 Refills, Maintenance, 07/04/20 9:01:00 EDT, [place], [facility]/pharmacy #[id number], 1 sprays [...] 07/11/20 15:38:00 EDT, REC Powder, [facility]/pharmacy #[id number], 17 Gm By Mouth Daily,Instr:dissolve in water before taking, 163, cm, 05/28/20 11:24:00 EDT, Height, 102... Start Date: 07/11/20 Status: Orderedomeprazole 20 mg oral enteric coated capsule 1 capsule = 20 mg, By Mouth, Daily, # 30 capsule, 5 Refills, Maintenance, 07/07/20 11:44:00 EDT, EC Capsule, [facility]/pharmacy #[id number], 163, cm, 05/28/20 11:24:00 EDT, [...] capsule, 2 Refills, Maintenance, 08/13/20 17:29:00 EST, [facility]/pharmacy #[id number], 163, cm, 05/28/20 11:24:00 EDT, [...] 5 Refills, Maintenance, 07/22/20 15:24:00 EDT, Tablet, [facility]/pharmacy #[id number], 163, cm, 05/28/20 11:24:00 EDT, [...] %] 100 % 100 % 99 % (10/17/20 1:00 PM) (10/17/20 8:00 AM) (10/17/20 6:1 5 AM) Pulse Rate [55-90 bpm] 105 bpm 88 bpm 76 bpm *H* (10/17/20 8:00 AM) (10/17/20 6:15 AM) (10/17/20 1:00 PM) Blood Pressure [90-138/55-84 mm 146/97 mm Hg 146/91 mm Hg 135/81 mm Hg Hg] *H* *H* (10/17/20 6:15 AM ) (10/17/20 1:00 PM) (10/17/20 8:00 AM) Respiratory Rate [16-30 br/min] 22 br/min 19 br/min 18 br/min (10/17/20 1:00 PM) (10/17/20 8:00 AM) (10/17/20 6:1 5 AM) Temperature [96.8-100.4 DegF] 99.5 DegF (10/17/20 6:15 AM) Mode of Delivery (Oxygen) Room air Room air Room a ir (10/17/20 1:00 PM) (10/17/20 8:00 AM) (10/17/20 6:1 5 AM) Blood pressure sites Arm, left Arm, left Arm, left (10/17/20 1:00 PM) (10/17/20 8:00 AM) (10/17/20 6:1 5 AM) Temperature Route Oral (10/17/20 6:15 AM) Social History Social History Type Response Tobacco Use: 4 or less cigarettes(le ss than 1/4 pack)/day in last 30 days. Sex Female
--- OUTSIDE RECORDS SUMMARY | 2022-06-29 21:26 | XMS_ITS | Continuity of Care Document ---
:1990 Author Organization [facility] Address [address] [place] [address], [address] [place] [phone]- Care Team Providers Name Role Phone Fatoumata Stokes DO Primary Care Physician [facility]): 12/01/20 - 12/31/20 [facility] [address], [address] [place] [id number]- Allergies, Adverse Reactions, Alerts Substance Reaction Severity [...] 13:30:00 EST, Route to Pharmacy Electronically, [facility]/pharmacy #[id number], 159, cm, 11/19/19 8:17:00 EST, Height, 89.7, kg, 11/14/19 9... Start Date: 11/22/19 Status: OrderedAquaphor Healing topical ointment See Instructions, APPLY TO NIPPLE DAILY NEEDED FOR DISCOMFORT, # 50 Gm, 0 Refills, Maintenance, [facility] STORE [id number], 7, APPLY TO NIPPLE DAILY NEEDED FOR [...] Refills, Maintenance, 12/04/20 14:32:00 EST, REC Powder, [id number] Partial fill upon patient request if t... Start Date: 12/04/20 Status: Orderedbenztropine 1 mg oral tablet 1 mg, 1, tablet, By Mouth, 2 times a day, # 60 tablet, Refills 0, Tot. Refills 0, Maintenance, 01/01/20 16:15:00 EDT, [facility]ically, [id number], 163, cm, 01/01/20 14:39:00 EDT, Height, 86.5, kg, 12/19/19 19:14:00 EDT, Dry We... Start Date: 01/01/20 Stop Date: 01/31/20 Status: OrderedDepo-Provera Contraceptive 150 mg/mL intramuscular suspension 1 mL = 150 mg, Intramuscular, Every 3 months, # 1 mL, 3 Refills, Maintenance, 08/26/20 9:54:00 EST, Suspension, [facility], 163, cm, 05/28/20 11:24:00 EDT, Height, 100, kg, 08/04/20 11:40:00 EST, Dry Weight Start Date: 08/26/20 Status: Ordereddocusate sodium 100 mg oral capsule 100 mg, 1, capsule, By Mouth, 2 times a day, # 60 capsule, Refills 11, Tot. Refills 11, Maintenance,01/08/20 11:07:00 EDT, [facility]ically[id number] 163, cm, 01/02/20 7:50:00 EDT, Height, 86.5, kg, 12/19/19 19:14:00 EDT, D... Start Date: 01/08/20 Stop Date: 01/02/21 Status: OrderedEstradiol Patch 0.1 mg/24 hours twice weekly transdermal film, extended release See Instructions, APPLY 1 PATCH TOPICALLY EVERY TUESDAY & TUESDAY, # 8 patch, 2 Refills, 12/03/20 8:15:00 EST, [facility]/pharmacy #[id number], 28, APPLY 1 PATCH TOPICALLY EVERY TUESDAY & TUESDAY, 164, cm, 10/14/20 10:13:00 EST, Height, 112, kg, 10/14/20 10:13:00... Start Date: 12/03/20 Status: Orderedferrous sulfate 325 mg oral enteric coated tablet 325 mg, 1, tablet, By Mouth, Daily, # 90 tablet, Refills 1, Tot. Refills 1, Maintenance, 10/31/20 16:01:00 EST, Route to Pharmacy Electronically, [facility]/pharmacy #[id number], 164, cm, 10/14/20 10:13:00 EST, Height, 112, kg, 10/14/20 10:13:00 EST, Dry Weight Start Date: 10/31/20 Status: OrderedFlonase 50 mcg/inh nasal spray 1 sprays, Nares, Both, 2 times a day, # 16 Gm, 5 Refills, Maintenance, 07/04/20 9:01:00 EDT, [place], [facility]/pharmacy #[id number], 1 sprays Nares, Both 2 times a day, 163, cm, 05/28/20 11:24:00 EDT, Height, 102.3, kg, 06/22/20 23:55:00 EDT, Dry Weight Start Date: 07/04/20 Status: Orderedlithium 300 mg oral tablet 1 tablet = 300 mg, By Mouth, Daily in AM, # 30 tablet, 0 Refills, Maintenance, 01/01/20 16:16:00 EDT, Tablet, [facility]/pharmacy #[id number], 163, cm, 01/01/20 14:39:00 EDT, Height, 86.5, kg, 12/19/19 19:14:00 EDT, Dry Weight Start Date: 01/01/20 Stop Date: 01/29/20 Status: Orderedlithium 600 mg oral capsule 1 capsule = 600 mg, By Mouth, Daily at bedtime, # 30 capsule, 0 Refills, Maintenance, 01/01/20 16:16:00 EDT, Capsule, [facility]/pharmacy #[id number], 163, cm, 01/01/20 14:39:00 [...] Maintenance, 07/11/20 15:38:00 EDT, REC Powder, [facility]/pharmacy #[id number], 17 Gm By Mouth Daily,Instr:dissolve in water before taking, 163, cm, 05/28/20 11:24:00 EDT, Height, 102... Start Date: 07/11/20 Status: Orderedomeprazole 20 mg oral enteric coated capsule 1 capsule = 20 mg, By Mouth, Daily, # 30 capsule, 2 Refills, Maintenance, 12/08/20 10:55:00 EDT, EC Capsule, [facility]/pharmacy #[id number], 164, cm, 10/14/20 10:13:00 EST, Height, 112, kg, 10/14/20 10:13:00 EST, Dry Weight Start Date: 12/08/20 Status: Orderedperphenazine 16 mg oral tablet 16 mg, 1, tablet, By Mouth, 2 times a day, # 60 tablet, Refills 0, Tot. Refills 0, Maintenance, 01/01/20 16:18:00 EDT, Route to Pharmacy Electronically, [facility]/pharmacy #[id number], 163, cm, 01/01/20 14:39:00 [...] 4:30:00 EDT, Route to Pharmacy Electronically, [facility]/pharmacy... Start Date: 01/02/20 Status: Orderedsenna - oral tablet 1 tablet, By Mouth, Daily at bedtime, PRN for constipation, # 60 tablet, 1 Refills, Maintenance, 12/04/20 14:28:00 EST, Tablet, [facility]/pharmacy #[id number], Partial fill upon patient request if [...] 12:12:32 EST, Route to Pharmacy Electronically, [facility]/pharmacy #[id number] Start Date: 08/06/19 Stop Date: 07/01/20 Status: OrderedZyrTEC 10 mg oral tablet 1 tablet = 10 mg, By Mouth, Daily, # 30 tablet, 5 Refills, Maintenance, 07/22/20 15:24:00 EDT, Tablet, [facility]/pharmacy #[id number], 163, cm, 05/28/20 11:24:00 [...]
--- OUTSIDE RECORDS SUMMARY | 2022-06-29 21:26 | XMS_ITS | Continuity of Care Document ---
:1990 Author Organization [facility] Address [address] [place] [address]- Care Team Providers Name Role Phone Fatoumata Stokes DO Primary Care Physician [facility] Date[facility] 08/[facility]/20 - 09/26/20 [facility] [address] [place], [place] [address] Allergies, Adverse Reactions, Alerts Substance [...] 13:30:00 EST, Route to Pharmacy Electronically, [facility]/pharmacy #[id number], 159, cm, 11/19/19 8:17:00 EST, Height, 89.7, kg, 11/14/19 9... Start Date: 11/22/19 Status: OrderedAquaphor Healing topical ointment See Instructions, APPLY TO NIPPLE DAILY NEEDED FOR DISCOMFORT, # 50 Gm, 0 Refills, Maintenance, [facility] STORE [id number], 7, APPLY TO NIPPLE DAILY NEEDED FOR DISCOMFORT, 159, cm, 12/10/19 11:02:00 EDT, Height, 86.7, kg, 12/10/19 11:02:00 EDT, Dry Weight Start Date: 12/10/19 Status: Orderedbenztropine 1 mg oral tablet 1 mg, 1, tablet, By Mouth, 2 times a day, # 60 tablet, Refills 0, Tot. Refills 0, Maintenance, 01/01/20 16:15:00 EDT, [id number], cm, 01/01/20 14:39:00 EDT, [...] Maintenance,01/08/20 11:07:00 EDT, [id number], cm, 01/02/20 7:50:00 EDT, Height, 86.5, kg, 12/19/19 19:14:00 EDT, D... Start Date: 01/08/20 Stop Date: 01/02/21 Status: Orderedestradiol 0.1 mg/24 hours twice weekly transdermal film, extended release 1 patch, Topically, Every Tuesday and , # 8 patch, 6 Refills, Maintenance, 05/28/20 11:01:00 EDT, [facility]/pharmacy #[id number], 163, cm, 04/03/20 14:59:00 EDT, Height, 88.9, kg, 04/03/20 14:59:00 EDT, DryWeight Start Date: 05/28/20 Status: OrderedEucerin Plus topical lotion 1 application, Topically, 2 times a day, PRN for dry skin, May apply to affected area every 6 hours as needed, up to 2 times/day, # 180 mL, 11 Refills, Maintenance, 08/06/19 12:15:04 EST, Lotion, [facility]/pharmacy #[id number] Start Date: 08/06/19 Status: Orderedferrous [...] Gm, 5 Refills, Maintenance, 07/04/20 9:01:00 EDT, [place], [facility]/pharmacy #[id number], 1 sprays Nares, Both 2 times a day, 163, cm, 05/28/20 11:24:00 EDT, Height, 102.3, kg, 06/22/20 23:55:00 EDT, Dry Weight Start Date: 07/04/20 Status: Orderedlithium 300 mg oral tablet 1 tablet = 300 mg, By Mouth, Daily in AM, # 30 tablet, 0 Refills, Maintenance, 01/01/20 16:16:00 EDT, Tablet, [facility]/pharmacy #[id number], 163, cm, 01/01/20 14:39:00 EDT, Height, 86.5, kg, 12/19/19 19:14:00 EDT, Dry Weight Start Date: 01/01/20 Stop Date: 01/29/20 Status: Orderedlithium 600 mg oral capsule 1 capsule = 600 mg, By Mouth, Daily at bedtime, # 30 capsule, 0 Refills, Maintenance, 01/01/20 16:16:00 EDT, Capsule, [facility]/pharmacy #[id number], 163, cm, 01/01/20 14:39:00 EDT, [...] Maintenance, 07/11/20 15:38:00 EDT, REC Powder, [facility]/pharmacy #[id number], 17 Gm By Mouth Daily,Instr:dissolve in water before taking, 163, cm, 05/28/20 11:24:00 EDT, Height, 102... Start Date: 07/11/20 Status: Orderedomeprazole 20 mg oral enteric coated capsule 1 capsule = 20 mg, By Mouth, Daily, # 30 capsule, 5 Refills, Maintenance, 07/07/20 11:44:00 EDT, EC Capsule, [facility]/pharmacy #[id number], 163, cm, 05/28/20 11:24:00 EDT, Height, 102.3, kg, 06/22/20 23:55:00 EDT, Dry Weight Start Date: 07/07/20 Status: Orderedperphenazine 16 mg oral tablet 16 mg, 1, tablet, By Mouth, 2 times a day, # 60 tablet, Refills 0, Tot. Refills 0, Maintenance, 01/01/20 16:18:00 EDT, Route to Pharmacy Electronically, [facility]/pharmacy #[id number], 163, cm, 01/01/20 14:39:00 EDT, [...] 4:30:00 EDT, Route to Pharmacy Electronically, [facility]/pharmacy... Start Date: 01/02/20 Status: Orderedsimethicone 125 mg oral capsule See Instructions, TAKE 1 CAPSULE BY MOUTH THREE TIMES A DAY AFTER MEALS AND AT BEDTIME NEEDED, # 48 capsule, 2 Refills, Maintenance, 08/13/20 17:29:00 EST, [facility]/pharmacy #[id number], 163, cm, 05/28/20 11:24:00 EDT, Height, 100, kg, 08/04/20 11:40:00 EST,... Start Date: 08/13/20 Status: OrderedTums 500 mg oral tablet, chewable 1,000 mg, 2, tablet, Chew, Every 6 hours, PRN, # 120 tablet, Refills 11, Tot. Refills 11, Maintenance, for indigestion, 08/06/19 12:12:32 EST, Route to Pharmacy Electronically, [facility]/pharmacy #[id number] Start Date: 08/06/19 Stop Date: 07/01/20 Status: OrderedZyrTEC 10 mg oral tablet 1 tablet = 10 mg, By Mouth, Daily, # 30 tablet, 5 Refills, Maintenance, 07/22/20 15:24:00 EDT, Tablet, [facility]/pharmacy #[id number], 163, cm, 05/28/20 11:24:00 EDT, [...]
--- OUTSIDE RECORDS SUMMARY | 2022-06-29 21:26 | XMS_ITS | Continuity of Care Document ---
:[address] [facility] Address [address] [place] [address]- Care Team Providers Name Role Phone Fatoumata Stokes DO Primary Care Physician [facility] Date[facility]): 06/18/20 - 07/18/20 [facility] [id number] [place] [address]- [facility] Allergies, Adverse Reactions, Alerts Substance Reaction Severity [...] 11/22/19 13:30:00 EST, Route to Pharmacy Electronically, [facility]/pharmacy #[id number], 159, cm, 11/19/19 8:17:00 EST, Height, 89.7, kg, 11/14/19 9... Start Date: 11/22/19 Status: OrderedAquaphor Healing topical ointment See Instructions, APPLY TO NIPPLE DAILY NEEDED FOR DISCOMFORT, # 50 Gm, 0 Refills, Maintenance, [facility] STORE [id number], 7, APPLY TO NIPPLE DAILY NEEDED FOR DISCOMFORT, 159, cm, 12/10/19 11:02:00 EDT, Height, 86.7, kg, 12/10/19 11:02:00 EDT, Dry Weight Start Date: 12/10/19 Status: Orderedbenztropine 1 mg oral tablet 1 mg, 1, tablet, By Mouth, 2 times a day, # 60 tablet, Refills 0, Tot. Refills 0, Maintenance, 01/01/20 16:15:00 EDT, Route to Pharmacy Electronically, [facility]/pharmacy #[id number], 163, cm, 01/01/20 14:39:00 EDT, Height, 86.5, kg, 12/19/19 19:14:00 EDT, Dry We... Start Date: 01/01/20 Stop Date: 01/31/20 Status: OrderedDepo-Provera Contraceptive 150 mg/mL intramuscular suspension 1 mL = 150 mg, Intramuscular, Every 3 months, # 1 mL, 3 Refills, Maintenance, 05/28/20 11:29:00 EDT,Suspension, [facility], 163, cm, 05/28/20 11:24:00 EDT, Height, 88.9, kg, 04/03/20 14:59:00 EDT, Dry Weight Start Date: 05/28/20 Status: Ordereddocusate sodium 100 mg oral capsule 100 mg, 1, capsule, By Mouth, 2 times a day, # 60 capsule, Refills 11, Tot. Refills 11, Maintenance,01/08/20 11:07:00 EDT, Route to Pharmacy Electronically, [facility]/pharmacy #[id number], 163, cm, 01/02/20 7:50:00 EDT, Height, 86.5, kg, 12/19/19 19:14:00 EDT, D... Start Date: 01/08/20 Stop Date: 01/02/21 Status: Orderedestradiol 0.1 mg/24 hours twice weekly transdermal film, extended release 1 patch, Topically, Every Tuesday and , # 8 patch, 6 Refills, Maintenance, 05/28/20 11:01:00 EDT, [facility]/pharmacy #[id number], 163, cm, 04/03/20 14:59:00 EDT, Height, 88.9, kg, 04/03/20 14:59:00 EDT, DryWeight Start Date: 05/28/20 Status: OrderedEucerin Plus topical lotion 1 application, Topically, 2 times a day, PRN for dry skin, May apply to affected area every 6 hours as needed, up to 2 times/day, # 180 mL, 11 Refills, Maintenance, 08/06/19 12:15:04 EST, Lotion, [facility]/pharmacy #[id number] Start Date: 08/06/19 Status: Orderedferrous sulfate 325 mg oral enteric coated tablet 325 mg, 1, tablet, By Mouth, Daily, # 30 tablet, Refills 11, Tot. Refills 11, Maintenance, 01/08/20 11:07:00 EDT, Route to Pharmacy Electronically, [facility]/pharmacy #[id number], 163, cm, 01/02/20 7:50:00 EDT, Height, 86.5, kg, 12/19/19 19:14:00 EDT, Dry Weight Start Date: 01/08/20 Status: OrderedFlonase 50 mcg/inh nasal spray 1 sprays, Nares, Both, 2 times a day, # 16 Gm, 5 Refills, Maintenance, 07/04/20 9:01:00 EDT, [place], [facility]/pharmacy #[id number], 1 sprays Nares, Both 2 times a day, 163, cm, 05/28/20 11:24:00 EDT, Height, 102.3, kg, 06/22/20 23:55:00 EDT, Dry Weight Start Date: 07/04/20 Status: Orderedlithium 300 mg oral tablet 1 tablet = 300 mg, By Mouth, Daily in AM, # 30 tablet, 0 Refills, Maintenance, 01/01/20 16:16:00 EDT, Tablet, [facility]/pharmacy #[id number], 163, cm, 01/01/20 14:39:00 EDT, Height, 86.5, kg, 12/19/19 19:14:00 EDT, Dry Weight Start Date: 01/01/20 Stop Date: 01/29/20 Status: Orderedlithium 600 mg oral capsule 1 capsule = 600 mg, By Mouth, Daily at bedtime, # 30 capsule, 0 Refills, Maintenance, 01/01/20 16:16:00 EDT, Capsule, [facility]/pharmacy #[id number], 163, cm, 01/01/20 14:39:00 EDT, Height, 86.5, kg, 12/19/19 19:14:00 EDT, Dry Weight Start Date: 01/01/20 Stop Date: 03/01/20 Status: OrderedMiraLax oral powder for reconstitution = 17 Gm, By Mouth, Daily, dissolve in water before taking, # 255 Gm, 0 Refills, Maintenance, 07/11/20 15:38:00 EDT, REC Powder, [facility]/pharmacy #[id number], 17 Gm By Mouth [...] Refills, Maintenance, 07/07/20 11:44:00 EDT, EC Capsule, [facility]/pharmacy #[id number], 163, cm, 05/28/20 11:24:00 EDT, Height, 102.3, kg, 06/22/20 23:55:00 EDT, Dry Weight Start Date: 07/07/20 Status: Orderedperphenazine 16 mg oral tablet 16 mg, 1, tablet, By Mouth, 2 times a day, # 60 tablet, Refills 0, Tot. Refills 0, Maintenance, 01/01/20 16:18:00 EDT, Route to Pharmacy Electronically, [facility]/pharmacy #[id number], 163, cm, 01/01/20 14:39:00 [...] 01/02/20 4:30:00 EDT, Route to Pharmacy Electronically, [facility]/pharmacy... Start Date: 01/02/20 Status: Orderedsimethicone 125 mg oral capsule See Instructions, TAKE 1 CAPSULE BY MOUTH THREE TIMES A DAY AFTER MEALS AND AT BEDTIME NEEDED, # 48 capsule, 2 Refills, Acute, [id number], 163, cm, 05/28/20 11:24:00 EDT, Height, 88.9, kg, 04/03/20 14:59:00 EDT, Dry Weight Start Date: 06/03/20 Status: OrderedTums 500 mg oral tablet, chewable 1,000 mg, 2, tablet, Chew, Every 6 hours, PRN, # 120 tablet, Refills 11, Tot. Refills 11, Maintenance, for indigestion, 08/06/19 12:12:32 EST, Route to Pharmacy Electronically, [facility]/pharmacy #[id number] Start Date: 08/06/19 Stop Date: 07/01/20 Status: OrderedZyrTEC 10 mg oral tablet 1 tablet = 10 mg, By Mouth, Daily, # 30 tablet, 3 Refills, Maintenance, 04/03/20 15:37:00 EDT, Tablet, [facility]/pharmacy #[id number], 163, cm, 04/03/20 14:59:00 [...]
--- OUTSIDE RECORDS SUMMARY | 2022-06-29 21:26 | XMS_ITS | Continuity of Care Document ---
:1990 Author Organization [facility] Address [address] [place] [address]- Care Team Providers Name Role Phone Fatoumata Stokes DO Primary Care Physician [facility]): 05/14/21 - 06/13/21 [facility] [address] [place], [place] [address] Allergies, Adverse Reactions, Alerts Substance Reaction [...] 05/28/21 7:42:00 EDT, Route to Pharmacy Electronically, [facility]/pharmacy #[id number], 164, cm, 04/07/21 15:35:00 EDT, Height, 112, kg, 10/14/20 10... Start Date: 05/28/21 Status: OrderedBenefiber oral powder for reconstitution 5 mL, By Mouth, 2 times a day, PRN as needed for constipation, dissolve in 4 to 8 oz of beverage or soft food- hot or cold, # 155 Gm, 11 Refills, Maintenance, 03/05/21 15:58:00 EDT, REC Powder, [facility]/pharmacy #[id number], Partial fill upon patient request if... Start Date: 03/05/21 Status: Orderedbenztropine 1 mg oral tablet 1 mg, 1, tablet, By Mouth, 2 times a day, # 60 tablet, Refills 0, Tot. Refills 0, Maintenance, 01/01/20 16:15:00 EDT, Route to Pharmacy Electronically, [facility]/pharmacy #[id number], 163, cm, 01/01/20 14:39:00 EDT, Height, 86.5, kg, 12/19/19 19:14:00 EDT, Dry We... Start Date: 01/01/20 Stop Date: 01/31/20 Status: Orderedcetirizine 10 mg oral tablet 1 tablet, By Mouth, Daily, # 30 tablet, 5 Refills, Maintenance, 02/16/21 14:03:00 EDT, [id number], 164, cm, 10/14/20 10:13:00 EST, Height, 112, kg, 10/14/20 10:13:00 EST, Dry Weight Start Date: 02/16/21 Status: Ordereddocusate sodium 100 mg oral capsule 1 capsule, By Mouth, 2 times a day, # 60 capsule, 5 Refills, Maintenance, 01/12/21 20:05:00 EDT, [id number] 164, cm, 10/14/20 10:13:00 EST, Height, 112, kg, 10/14/20 10:13:00 EST, Dry Weight Start Date: 01/12/21 Status: OrderedEstradiol Patch 0.1 mg/24 hours twice weekly transdermal film, extended release See Instructions, APPLY 1 PATCH TOPICALLY EVERY TUESDAY & TUESDAY, # 8 patch, 12 Refills, 03/13/21 13:04:00 EDT, [facility]/pharmacy #[id number], 28, APPLY 1 PATCH TOPICALLY EVERY TUESDAY & TUESDAY, 164, cm, 03/13/21 9:51:00 EDT, Height, 112, kg, 10/14/20 10:13:00... Start Date: 03/13/21 Status: Orderedferrous sulfate 325 mg oral enteric coated tablet 325 mg, 1, tablet, By Mouth, Daily, # 90 tablet, Refills 1, Tot. Refills 1, Maintenance, 10/31/20 16:01:00 EST, Route to Pharmacy Electronically, [facility]/pharmacy #[id number], 164, cm, 10/14/20 10:13:00 EST, Height, 112, kg, 10/14/20 10:13:00 EST, Dry Weight Start Date: 10/31/20 Status: Orderedfluticasone 50 mcg/inh nasal spray See Instructions, USE 1 SPRAY IN EACH NOSTRIL TWICE A DAY, # 16 mL, 5 Refills, Maintenance, [facility] STORE [id number], 30, USE 1 SPRAY IN EACH NOSTRIL TWICE A DAY, 164, cm, 10/14/20 10:13:00 EST, Height, 112, kg, 10/14/20 10:13:00 EST, Dry Weight Start Date: 03/06/21 Status: Orderedlithium 300 mg oral tablet 1 tablet = 300 mg, By Mouth, Daily in AM, # 30 tablet, 0 Refills, Maintenance, 01/01/20 16:16:00 EDT, Tablet, [facility]/pharmacy #[id number], 163, cm, 01/01/20 14:39:00 EDT, Height, 86.5, kg, 12/19/19 19:14:00 EDT, Dry Weight Start Date: 01/01/20 Stop Date: 01/29/20 Status: Orderedlithium 600 mg oral capsule 1 capsule = 600 mg, By Mouth, Daily at bedtime, # 30 capsule, 0 Refills, Maintenance, 01/01/20 16:16:00 EDT, Capsule, [facility]/pharmacy #[id number], 163, cm, 01/01/20 14:39:00 EDT, Height, 86.5, kg, 12/19/19 19:14:00 EDT, Dry Weight Start Date: 01/01/20 Stop Date: 03/01/20 Status: OrderedmedroxyPROGESTERone 150 mg/mL intramuscular suspension 1 mL, Intramuscular, Every 3 months, # 1 mL, 3 Refills, Soft Stop, 03/13/21 13:05:00 EDT, [facility]/pharmacy #[id number], 164, cm, 03/13/21 9:51:00 EDT, Height, 112, kg, 10/14/20 10:13:00 EST, Dry Weight Start Date: 03/13/21 Status: OrderedMiraLax oral powder for reconstitution = 17 Gm, By Mouth, Daily, dissolve in water before taking, # 255 Gm, 0 Refills, Maintenance, 07/11/20 15:38:00 EDT, REC Powder, [facility]/pharmacy #[id number], 17 Gm By Mouth Daily,Instr:dissolve in water before taking, 163, cm, 05/28/20 11:24:00 EDT, Height, 102... Start Date: 07/11/20 Status: Orderedomeprazole 20 mg oral enteric coated capsule 1 capsule, By Mouth, Daily, # 90 capsule, 0 Refills, Maintenance, 04/17/21 13:04:00 EDT, [id number], 164, cm, 04/07/21 15:35:00 EDT, Height, 112, kg, 10/14/20 10:13:00 EST, Dry Weight Start Date: 04/17/21 Status: Orderedperphenazine 16 mg oral tablet 16 mg, 1, tablet, By Mouth, 2 times a day, # 60 tablet, Refills 0, Tot. Refills 0, Maintenance, 01/01/20 16:18:00 EDT, [id number] 163, cm, 01/01/20 [...] [facility] Start Date: 01/02/20 Status: OrderedSenna 8.6 mg oral tablet 1, tablet, By Mouth, Daily at bedtime, PRN, # 60 tablet, Refills 1, Tot. Refills 0, Acute, NEEDEDFOR CONSTIPATION, 02/19/21 17:23:00 EDT, Route to Pharmacy Electronically, [id number], 164, cm,10/14/20 10:13:00 EST, Height, 112, kg, 10/14/20... Start Date: 02/19/21 Status: Orderedsimethicone 125 mg oral capsule See Instructions, TAKE 1 CAPSULE BY MOUTH THREE TIMES A DAY AFTER MEALS AND AT BEDTIME NEEDED, # 48 capsule, 11 Refills, [facility] ST[id number], 164, cm, 04/07/21 15:35:00 EDT, Height, 112, [...]
--- OUTSIDE RECORDS SUMMARY | 2022-06-29 21:26 | XMS_ITS | Continuity of Care Document ---
:1990 Author Organization [facility] Address [address] [place] [address]- Care Team Providers Name Role Phone Fatoumata Stokes DO Primary Care Physician [facility]): 12[facility]20 - 12/11/20 [facility] [address] [place], [place] [address] Attending Physician: Fatoumata Stokes DO Allergies, Adverse [...] 11/22/19 13:30:00 EST, Route to Pharmacy Electronically, [facility]/pharmacy #[id number], 159, cm, 11/19/19 8:17:00 EST, Height, 89.7, kg, 11/14/19 9... Start Date: 11/22/19 Status: OrderedAquaphor Healing topical ointment See Instructions, APPLY TO NIPPLE DAILY NEEDED FOR DISCOMFORT, # 50 Gm, 0 Refills, Maintenance, [facility], 7, APPLY TO NIPPLE DAILY NEEDED FOR [...] Refills, Maintenance, 12/04/20 14:32:00 EST, [facility] Powder[id number] upon patient request if t... Start Date: 12/04/20 Status: Orderedbenztropine 1 mg oral tablet 1 mg, 1, tablet, By Mouth, 2 times a day, # 60 tablet, Refills 0, Tot. Refills 0, Maintenance, 01/01/20 16:15:00 EDT, [id number], cm, 01/01/20 14:39:00 EDT, Height, 86.5, kg, 12/19/19 19:14:00 EDT, Dry We... Start Date: 01/01/20 Stop Date: 01/31/20 Status: OrderedDepo-Provera Contraceptive 150 mg/mL intramuscular suspension 1 mL = 150 mg, Intramuscular, Every 3 months, # 1 mL, 3 Refills, Maintenance, 08/26/20 9:54:00 EST, Suspension, [facility], 163, cm, 05/28/20 11:24:00 EDT, Height, 100, kg, 08/04/20 11:40:00 EST, Dry Weight Start Date: 08/26/20 Status: Ordereddocusate sodium 100 mg oral capsule 100 mg, 1, capsule, By Mouth, 2 times a day, # 60 capsule, Refills 11, Tot. Refills 11, Maintenance,01/08/20 11:07:00 EDT, [id number], cm, 01/02/20 7:50:00 EDT, Height, 86.5, kg, 12/19/19 19:14:00 EDT, D... Start Date: 01/08/20 Stop Date: 01/02/21 Status: OrderedEstradiol Patch 0.1 mg/24 hours twice weekly transdermal film, extended release See Instructions, APPLY 1 PATCH TOPICALLY EVERY TUESDAY & TUESDAY, # 8 patch, 2 Refills, 12/03/20 8:15:00 EST, [facility]/pharmacy #[id number], 28, APPLY 1 PATCH TOPICALLY EVERY TUESDAY & TUESDAY, 164, cm, 10/14/20 10:13:00 EST, Height, 112, kg, 10/14/20 10:13:00... Start Date: 12/03/20 Status: Orderedferrous sulfate 325 mg oral enteric coated tablet 325 mg, 1, tablet, By Mouth, Daily, # 90 tablet, Refills 1, Tot. Refills 1, Maintenance, 10/31/20 16:01:00 EST, Route to Pharmacy Electronically, [facility]/pharmacy #[id number], 164, cm, 10/14/20 10:13:00 EST, Height, 112, kg, 10/14/20 10:13:00 EST, Dry Weight Start Date: 10/31/20 Status: OrderedFlonase 50 mcg/inh nasal spray 1 sprays, Nares, Both, 2 times a day, # 16 Gm, 5 Refills, Maintenance, 07/04/20 9:01:00 EDT, [place], [facility]/pharmacy #[id number], 1 sprays Nares, Both 2 times a day, 163, cm, 05/28/20 11:24:00 EDT, Height, 102.3, kg, 06/22/20 23:55:00 EDT, Dry Weight Start Date: 07/04/20 Status: Orderedlithium 300 mg oral tablet 1 tablet = 300 mg, By Mouth, Daily in AM, # 30 tablet, 0 Refills, Maintenance, 01/01/20 16:16:00 EDT, Tablet, [facility]/pharmacy #[id number], 163, cm, 01/01/20 14:39:00 EDT, Height, 86.5, kg, 12/19/19 19:14:00 EDT, Dry Weight Start Date: 01/01/20 Stop Date: 01/29/20 Status: Orderedlithium 600 mg oral capsule 1 capsule = 600 mg, By Mouth, Daily at bedtime, # 30 capsule, 0 Refills, Maintenance, 01/01/20 16:16:00 EDT, Capsule, [facility]/pharmacy #[id number], 163, cm, 01/01/20 14:39:00 [...] Refills, Maintenance, 07/11/20 15:38:00 EDT, REC Powder, [facility]/pharmacy #[id number], 17 Gm By Mouth Daily,Instr:dissolve in water before taking, 163, cm, 05/28/20 11:24:00 EDT, Height, 102... Start Date: 07/11/20 Status: Orderedomeprazole 20 mg oral enteric coated capsule 1 capsule = 20 mg, By Mouth, Daily, # 30 capsule, 2 Refills, Maintenance, 12/08/20 10:55:00 EDT, EC Capsule, [facility]/pharmacy #[id number], 164, cm, 10/14/20 10:13:00 EST, Height, 112, kg, 10/14/20 10:13:00 EST, Dry Weight Start Date: 12/08/20 Status: Orderedperphenazine 16 mg oral tablet 16 mg, 1, tablet, By Mouth, 2 times a day, # 60 tablet, Refills 0, Tot. Refills 0, Maintenance, 01/01/20 16:18:00 EDT, Route to Pharmacy Electronically, [facility]/pharmacy #[id number], 163, cm, 01/01/20 14:39:00 [...] 01/02/20 4:30:00 EDT, Route to Pharmacy Electronically, [facility]/pharmacy... Start Date: 01/02/20 Status: Orderedsenna - oral tablet 1 tablet, By Mouth, Daily at bedtime, PRN for constipation, # 60 tablet, 1 Refills, Maintenance, 12/04/20 14:28:00 EST, Tablet, [facility]/pharmacy #[id number], Partial fill upon patient [...] 08/06/19 12:12:32 EST, Route to Pharmacy Electronically, [facility]/pharmacy #[id number] Start Date: 08/06/19 Stop Date: 07/01/20 Status: OrderedZyrTEC 10 mg oral tablet 1 tablet = 10 mg, By Mouth, Daily, # 30 tablet, 5 Refills, Maintenance, 07/22/20 15:24:00 EDT, Tablet, [facility]/pharmacy #[id number], 163, cm, 05/28/20 11:24:00 [...]
--- OUTSIDE RECORDS SUMMARY | 2022-06-29 21:26 | XMS_ITS | Continuity of Care Document ---
:[address] [facility] Address [address] [place] [address]- Care Team Providers Name Role Phone Fatoumata Stokes DO Primary Care Physician [facility] Date[facility]): 11/[facility] - 12/03/20 [facility] [address], [place] [address] Allergies, Adverse Reactions, Alerts Substance Reaction [...] Pharmacy Electronically, [facility]/pharmacy #[id number], 159, cm, 11/19/19 8:17:00 EST, Height, 89.7, kg, 11/14/19 9... Start Date: 11/22/19 Status: OrderedAquaphor Healing topical ointment See Instructions, APPLY TO NIPPLE DAILY NEEDED FOR DISCOMFORT, # 50 Gm, 0 Refills, Maintenance, [facility] STORE [id number], 7, APPLY TO NIPPLE DAILY NEEDED FOR [...] 3 Refills, Maintenance, 08/26/20 9:54:00 EST, Suspension, [facility], 163, cm, 05/28/20 11:24:00 EDT, Height, 100, kg, 08/04/20 11:40:00 EST, Dry Weight Start Date: 08/26/20 Status: Ordereddocusate sodium 100 mg oral capsule 100 mg, 1, capsule, By Mouth, 2 times a day, # 60 capsule, Refills 11, Tot. Refills 11, Maintenance,01/08/20 11:07:00 EDT, Route to Pharmacy Electronically, [facility]/pharmacy #[id number], 163, cm, 01/02/20 7:50:00 EDT, Height, 86.5, kg, 12/19/19 19:14:00 EDT, D... Start Date: 01/08/20 Stop Date: 01/02/21 Status: OrderedEstradiol Patch 0.1 mg/24 hours twice weekly transdermal film, extended release See Instructions, APPLY 1 PATCH TOPICALLY EVERY TUESDAY & TUESDAY, # 8 patch, 2 Refills, 12/03/20 8:15:00 EST, [facility]/pharmacy #[id number], 28, APPLY 1 PATCH TOPICALLY EVERY TUESDAY & TUESDAY, 164, cm, 10/14/20 10:13:00 EST, Height, 112, kg, 10/14/20 10:13:00... Start Date: 12/03/20 Status: OrderedEucerin Plus topical lotion 1 application, Topically, 2 times a day, PRN for dry skin, May apply to affected area every 6 hours as needed, up to 2 times/day, # 180 mL, 11 Refills, Maintenance, 08/06/19 12:15:04 EST, Lotion, [facility]/pharmacy #[id number] Start Date: 08/06/19 Status: Orderedferrous sulfate 325 mg oral enteric coated tablet 325 mg, 1, tablet, By Mouth, Daily, # 90 tablet, Refills 1, Tot. Refills 1, Maintenance, 10/31/20 16:01:00 EST, [id number], cm, 10/14/20 10:13:00 EST, Height, 112, kg, 10/14/20 10:13:00 EST, Dry Weight Start Date: 10/31/20 Status: OrderedFlonase 50 mcg/inh nasal spray 1 sprays, Nares, Both, 2 times a day, # 16 Gm, 5 Refills, Maintenance, 07/04/20 9:01:00 EDT, [place], [facility]/pharmacy #[id number], 1 sprays Nares, Both 2 [...] 07/07/20 11:44:00 EDT, EC Capsule, [facility]/pharmacy #[id number], 163, cm, 05/28/20 11:24:00 EDT, [...] to Pharmacy Electronically, [facility]/pharmacy... Start Date: 01/02/20 Status: Orderedsimethicone 125 mg oral capsule See Instructions, TAKE 1 CAPSULE BY MOUTH THREE TIMES A DAY AFTER MEALS AND AT BEDTIME NEEDED, # 48 capsule, 11 Refills, Maintenance, 10/21/20 9:08:00 EST, [facility]/pharmacy #[id number], 164, cm, 10/14/20 10:13:00 EST, Height, 112, kg, 10/14/20 10:13:00 EST,... Start Date: 10/21/20 Status: OrderedTums 500 mg oral tablet, chewable 1,000 mg, 2, tablet, Chew, Every 6 hours, PRN, # 120 tablet, Refills 11, Tot. Refills 11, Maintenance, for indigestion, 08/06/19 12:12:32 EST, Route to Pharmacy Electronically, [facility]/pharmacy #[id number] Start Date: 08/06/19 Stop Date: 07/01/20 Status: OrderedZyrTEC 10 mg oral tablet 1 tablet = 10 mg, By Mouth, Daily, # 30 tablet, 5 Refills, Maintenance, 07/22/20 15:24:00 EDT, Tablet, [facility]/pharmacy #[id number], 163, cm, 05/28/20 11:24:00 EDT, [...]
--- OUTSIDE RECORDS SUMMARY | 2022-06-29 21:26 | XMS_ITS | Continuity of Care Document ---
:1990 Author Organization [facility] Address [address] [place] [address]- Care Team Providers Name Role Phone Fatoumata Stokes DO Primary Care Physician [facility] Date(s): 06/24/20 - 06/24/[address] [address]- [facility] Discharge Disposition: A-D/C Walkout Attending Physician: Not on Staff, Attending MD Admitting Physician: Not on Staff, Admitting MD Referring Physician: Not on Staff, Referring [...] 11/22/19 13:30:00 EST, Route to Pharmacy Electronically, [facility]/pharmacy #[id number], 159, cm, 11/19/19 8:17:00 EST, Height, 89.7, kg, 11/14/19 9... Start Date: 11/22/19 Status: OrderedAquaphor Healing topical ointment See Instructions, APPLY TO NIPPLE DAILY NEEDED FOR DISCOMFORT, # 50 Gm, 0 Refills, Maintenance, [facility] STORE 41494, 7, APPLY TO NIPPLE DAILY NEEDED FOR DISCOMFORT, 159, cm, 12/10/19 11:02:00 EDT, Height, 86.7, kg, 12/10/19 11:02:00 EDT, Dry Weight Start Date: 12/10/19 Status: Orderedbenztropine 1 mg oral tablet 1 mg, 1, tablet, By Mouth, 2 times a day, # 60 tablet, Refills 0, Tot. Refills 0, Maintenance, 01/01/20 16:15:00 EDT, Route to Pharmacy Electronically, [facility]/pharmacy #[id number], 163, cm, 01/01/20 14:39:00 EDT, Height, 86.5, kg, 12/19/19 19:14:00 EDT, Dry We... Start Date: 01/01/20 Stop Date: 01/31/20 Status: OrderedDepo-Provera Contraceptive 150 mg/mL intramuscular suspension 1 mL = 150 mg, Intramuscular, Every 3 months, # 1 mL, 3 Refills, Maintenance, 05/28/20 11:29:00 EDT,Suspension, [facility], 163, cm, 05/28/20 11:24:00 EDT, Height, 88.9, kg, 04/03/20 14:59:00 EDT, Dry Weight Start Date: 05/28/20 Status: Ordereddocusate sodium 100 mg oral capsule 100 mg, 1, capsule, By Mouth, 2 times a day, # 60 capsule, Refills 11, Tot. Refills 11, Maintenance,01/08/20 11:07:00 EDT, Route to Pharmacy Electronically, [facility]/pharmacy #[id number], 163, cm, 01/02/20 7:50:00 EDT, Height, 86.5, kg, 12/19/19 19:14:00 EDT, D... Start Date: 01/08/20 Stop Date: 01/02/21 Status: Orderedestradiol 0.1 mg/24 hours twice weekly transdermal film, extended release 1 patch, Topically, Every Tuesday and , # 8 patch, 6 Refills, Maintenance, 05/28/20 11:01:00 EDT, [facility]/pharmacy #[id number], 163, cm, 04/03/20 14:59:00 EDT, Height, 88.9, kg, 04/03/20 14:59:00 EDT, DryWeight Start Date: 05/28/20 Status: OrderedEucerin Plus topical lotion 1 application, Topically, 2 times a day, PRN for dry skin, May apply to affected area every 6 hours as needed, up to 2 times/day, # 180 mL, 11 Refills, Maintenance, 08/06/19 12:15:04 EST, Lotion, [facility]/pharmacy #[id number] Start Date: 08/06/19 Status: Orderedferrous sulfate 325 mg oral enteric coated tablet 325 mg, 1, tablet, By Mouth, Daily, # 30 tablet, Refills 11, Tot. Refills 11, Maintenance, 01/08/20 11:07:00 EDT, Route to Pharmacy Electronically, [facility]/pharmacy #[id number], 163, cm, 01/02/20 7:50:00 EDT, Height, 86.5, kg, 12/19/19 19:14:00 EDT, Dry Weight Start Date: 01/08/20 Status: OrderedFlonase 50 mcg/inh nasal spray 1 sprays, Nares, Both, 2 times a day, # 16 Gm, 3 Refills, Maintenance, 04/03/20 15:37:00 EDT, [place],[facility]/pharmacy #[id number], 1 sprays Nares, Both 2 times a day, 163, cm, 04/03/20 14:59:00 EDT, Height, 88.9, kg, 04/03/20 14:59:00 EDT, Dry Weight Start Date: 04/03/20 Status: Orderedlithium 300 mg oral tablet 1 tablet = 300 mg, By Mouth, Daily in AM, # 30 tablet, 0 Refills, Maintenance, 01/01/20 16:16:00 EDT, Tablet, [facility]/pharmacy #[id number], 163, cm, 01/01/20 14:39:00 EDT, Height, 86.5, kg, 12/19/19 19:14:00 EDT, Dry Weight Start Date: 01/01/20 Stop Date: 01/29/20 Status: Orderedlithium 600 mg oral capsule 1 capsule = 600 mg, By Mouth, Daily at bedtime, # 30 capsule, 0 Refills, Maintenance, 01/01/20 16:16:00 EDT, Capsule, [facility]/pharmacy #[id number], 163, cm, 01/01/20 14:39:00 EDT, [...] Refills, Maintenance, 01/08/20 11:07:00 EDT, EC Capsule, [facility]/pharmacy #[id number], 163, cm, 01/02/20 7:50:00 EDT, Height, 86.5, kg, 12/19/19 19:14:00 EDT, Dry Weight Start Date: 01/08/20 Status: Orderedperphenazine 16 mg oral tablet 16 mg, 1, tablet, By Mouth, 2 times a day, # 60 tablet, Refills 0, Tot. Refills 0, Maintenance, 01/01/20 16:18:00 EDT, Route to Pharmacy Electronically, [facility]/pharmacy #[id number], 163, cm, 01/01/20 14:39:00 EDT, [...] [facility] Start Date: 01/02/20 Status: Orderedsimethicone 125 mg oral capsule See Instructions, TAKE 1 CAPSULE BY MOUTH THREE TIMES A DAY AFTER MEALS AND AT BEDTIME NEEDED, # 48 capsule, 2 Refills, Acute, [facility] STORE [id number], 163, cm, 05/28/20 11:24:00 EDT, Height, 88.9, [...] 3 Refills, Maintenance, 04/03/20 15:37:00 EDT, Tablet, [facility]/pharmacy #[id number], 163, cm, 04/03/20 14:59:00 EDT, [...] 1 Oxygen Saturation [94-100 %] 100 % (06/24/20 10:54 AM) Pulse Rate [55-90 bpm] 78 bpm (06/24/20 10:54 AM) Blood Pressure [90-138/55-84 mm Hg] 121/67 mm Hg (06/24/20 10:54 AM) Respiratory Rate [16-30 br/min] 18 br/min (06/24/20 10:54 AM) Temperature [96.8-100.4 DegF] 98.6 DegF (06/24/20 10:54 AM) Mode of Delivery (Oxygen) Room air (06/24/20 10:54 AM) Blood pressure sites Arm, right (06/24/20 10:54 AM) Temperature Route Oral (06/24/20 10:54 AM) Social History Social History Type Response Tobacco Use: 4 or less cigarettes(le ss than 1/4 pack)/day in last 30 days. Sex
--- OUTSIDE RECORDS SUMMARY | 2022-06-29 21:26 | XMS_ITS | Continuity of Care Document ---
:1990 Author Organization [facility] Address [address] [place] [address], [address] [place] [address]- Care Team Providers Name Role Phone Fatoumata Stokes DO Primary Care Physician [facility] Date(s): 12/31/21 - 03/13/22 [facility] [address] [address]- Attending Physician: Kim TORRES, Clayton Lin Referring Physician: Fatoumata Stokes DO Allergies, Adverse [...] 05/28/21 7:42:00 EDT, Route to Pharmacy Electronically, [facility]/pharmacy #[id number], 164, cm, 04/07/21 15:35:00 EDT, Height, 112, kg, 10/14/20 10... Start Date: 05/28/21 Status: OrderedBenefiber oral powder for reconstitution 5 mL, By Mouth, 2 times a day, PRN as needed for constipation, dissolve in 4 to 8 oz of beverage or soft food- hot or cold, # 155 Gm, 11 Refills, Maintenance, 03/05/21 15:58:00 EDT, REC Powder, [facility]/pharmacy #[id number], Partial fill upon patient request if... Start Date: 03/05/21 Status: Orderedbenztropine 1 mg oral tablet 1 mg, 1, tablet, By Mouth, 2 times a day, # 60 tablet, Refills 0, Tot. Refills 0, Maintenance, 01/01/20 16:15:00 EDT, Route to Pharmacy Electronically, [facility]/pharmacy #[id number], 163, cm, 01/01/20 14:39:00 EDT, Height, 86.5, kg, 12/19/19 19:14:00 EDT, Dry We... Start Date: 01/01/20 Stop Date: 01/31/20 Status: Orderedcetirizine 10 mg oral tablet 1 tablet, By Mouth, Daily, # 30 tablet, 2 Refills, [facility] STORE 23572, 163, cm, 09/24/21 16:23:00 EST, Height, 112, kg, 10/14/20 10:13:00 EST, Dry Weight Start Date: 12/28/21 Status: Ordereddocusate sodium 100 mg oral capsule 1 capsule, By Mouth, 2 times a day, # 60 capsule, 5 Refills, [facility] STORE [id number], 163, cm, 09/24/21 16:23:00 EST, Height, 112, kg, 10/14/20 10:13:00 EST, Dry Weight Start Date: 02/03/22 Status: OrderedEstradiol Patch 0.1 mg/24 hours twice weekly transdermal film, extended release See Instructions, APPLY 1 PATCH TOPICALLY EVERY TUESDAY & TUESDAY, # 24 patch, 4 Refills, [facility] STORE [id number], 84, APPLY 1 PATCH TOPICALLY EVERY TUESDAY & TUESDAY, 163, cm, 09/24/21 16:23:00 EST, Height, 112, kg, 10/14/20 10:13:00 EST, Dry Weight Start Date: 02/11/22 Status: Orderedferrous sulfate 325 mg oral enteric coated tablet 1, tablet, By Mouth, Every other day, due for labs, # 90 tablet, Refills 1, Tot. Refills 1, 228:11:00 EDT, Route to Pharmacy Electronically, [facility]/pharmacy #[id number], 163, cm, 09/24/21 16:23:00 EST, Height, 112, kg, 10/14/20 10:13:00 EST, Dry Weight Start Date: 03/04/22 Status: Orderedfluticasone 50 mcg/inh nasal spray See Instructions, USE 1 SPRAY IN EACH NOSTRIL TWICE A DAY, # 16 mL, 5 Refills, Maintenance, [facility] STORE 48461, 30, USE 1 SPRAY IN EACH NOSTRIL TWICE A DAY, 164, cm, 10/14/20 10:13:00 EST, Height, 112, kg, 10/14/20 10:13:00 EST, Dry Weight Start Date: 03/06/21 Status: Orderedlithium 300 mg oral tablet 1 tablet = 300 mg, By Mouth, Daily in AM, # 30 tablet, 0 Refills, Maintenance, 01/01/20 16:16:00 EDT, Tablet, [facility]/pharmacy #[id number], 163, cm, 01/01/20 14:39:00 EDT, Height, 86.5, kg, 12/19/19 19:14:00 EDT, Dry Weight Start Date: 01/01/20 Stop Date: 01/29/20 Status: Orderedlithium 600 mg oral capsule 1 capsule = 600 mg, By Mouth, Daily at bedtime, # 30 capsule, 0 Refills, Maintenance, 01/01/20 16:16:00 EDT, Capsule, [facility]/pharmacy #[id number], 163, cm, 01/01/20 14:39:00 EDT, Height, 86.5, kg, 12/19/19 19:14:00 EDT, Dry Weight Start Date: 01/01/20 Stop Date: 03/01/20 Status: OrderedmedroxyPROGESTERone 150 mg/mL intramuscular suspension 1 mL, Intramuscular, Every 3 months, # 1 mL, 3 Refills, Soft Stop, 03/13/21 13:05:00 EDT, [facility]/pharmacy #[id number], 164, cm, 03/13/21 9:51:00 EDT, Height, 112, kg, 10/14/20 10:13:00 EST, Dry Weight Start Date: 03/13/21 Status: OrderedmedroxyPROGESTERone 150 mg/mL intramuscular suspension See Instructions, INJECT 1 ML INTRAMUSCULARLY EVERY 3 MONTHS, # 1 mL, 3 Refills, [facility], 164, cm, 05/28/21 13:07:00 EDT, Height, 112, kg, 10/14/20 10:13:00 EST, Dry Weight Start Date: 09/07/21 Status: OrderedMiraLax oral powder for reconstitution = 17 Gm, By Mouth, Daily, dissolve in water before taking, # 255 Gm, 0 Refills, Maintenance, 07/11/20 15:38:00 EDT, REC Powder, [facility]/pharmacy #[id number], 17 Gm By Mouth Daily,Instr:dissolve in water before taking, 163, cm, 05/28/20 11:24:00 EDT, Height, 102... Start Date: 07/11/20 Status: Orderedomeprazole 20 mg oral enteric coated capsule 1 capsule, By Mouth, Daily, # 90 capsule, 0 Refills, [facility] STORE [id number], 163, cm, 09/24/21 16:23:00 EST, Height, 112, kg, 10/14/20 10:13:00 EST, Dry Weight Start Date: 03/04/22 Status: Orderedperphenazine 16 mg oral tablet 16 mg, 1, tablet, By Mouth, 2 times a day, # 60 tablet, Refills 0, Tot. Refills 0, Maintenance, 01/01/20 16:18:00 EDT, Route to Pharmacy Electronically, [facility]/pharmacy #[id number], 163, cm, 01/01/20 14:39:00 EDT, Height, 86.5, kg, 12/19/19 19:14:00 EDT, Dry W... Start Date: 01/01/20 Status: Orderedperphenazine 8 mg oral tablet 8 mg, 1, tablet, By Mouth, 2 times a day, PRN, Indicated for severe agitation/psychosis and to be taken 8 hours apart, # 60 tablet, Refills 0, Tot. Refills 0, Maintenance, Psychosis, 01/02/20 4:30:00 EDT, Route to Pharmacy Electronically, [facility]/pharmacy... Start Date: 01/02/20 Status: OrderedSenna-Time 8.6 mg oral tablet 1 tablet, By Mouth, Daily at bedtime, PRN NEEDED FOR CONSTIPATION, # 60 tablet, 1 Refills, [facility] STORE 73702, 163, cm, 09/24/21 16:23:00 EST, Height, 112, kg, 10/14/20 10:13:00 EST, Dry Weight Start Date: 12/28/21 Status: Orderedsimethicone 125 mg oral capsule See Instructions, TAKE 1 CAPSULE BY MOUTH THREE TIMES A DAY AFTER MEALS AND AT BEDTIME NEEDED, # 48 capsule, 11 Refills, [facility] STORE [id number], 163, cm, 09/24/21 16:23:00 EST, Height, 112, [...]
--- OUTSIDE RECORDS SUMMARY | 2022-06-29 21:26 | XMS_ITS | Continuity of Care Document ---
:1990 Author [facility] Address [address] [place] [address], [address] [place] [address]- Care Team Providers Name Role Phone Fatoumata Stokes DO Primary Care Physician Encounter [facility] Date(s): 05/19/20 - 06/27/20 [facility] [address] [place] [address], [address] [place] [address]- [facility] Attending Physician: Shannon Castrejon MD Referring Physician: Not on Staff, Referring [...] [facility] STORE 69427, 7, APPLY TO NIPPLE DAILY NEEDED FOR DISCOMFORT, 159, cm, 12/10/19 11:02:00 EDT, Height, 86.7, kg, 12/10/19 11:02:00 EDT, Dry Weight Start Date: 12/10/19 Status: Orderedbenztropine 1 mg oral tablet 1 mg, 1, tablet, By Mouth, 2 times a day, # 60 tablet, Refills 0, Tot. Refills 0, Maintenance, 01/01/20 16:15:00 EDT, Route to Pharmacy Electronically, [facility]/pharmacy #[id number], 163, cm, 01/01/20 14:39:00 EDT, Height, 86.5, kg, 12/19/19 19:14:00 EDT, Dry We... Start Date: 01/01/20 Stop Date: 01/31/20 Status: OrderedDepo-Provera Contraceptive 150 mg/mL intramuscular suspension 1 mL = 150 mg, Intramuscular, Every 3 months, # 1 mL, 3 Refills, Maintenance, 05/28/20 11:29:00 EDT,Suspension, [facility], 163, cm, 05/28/20 11:24:00 EDT, Height, 88.9, kg, 04/03/20 14:59:00 EDT, Dry Weight Start Date: 05/28/20 Status: Ordereddocusate sodium 100 mg oral capsule 100 mg, 1, capsule, By Mouth, 2 times a day, # 60 capsule, Refills 11, Tot. Refills 11, Maintenance,01/08/20 11:07:00 EDT, Route to Pharmacy Electronically, [facility]/pharmacy #[id number], 163, cm, 01/02/20 7:50:00 EDT, [...] 11:07:00 EDT, Route to Pharmacy Electronically, [facility]/pharmacy #[id number], 163, cm, 01/02/20 7:50:00 EDT, Height, 86.5, kg, 12/19/19 19:14:00 EDT, Dry Weight Start Date: 01/08/20 Status: OrderedFlonase 50 mcg/inh nasal spray 1 sprays, Nares, Both, 2 times a day, # 16 Gm, 3 Refills, Maintenance, 04/03/20 15:37:00 EDT, [place],[facility]/pharmacy #[id number], 1 [...] Maintenance, 01/08/20 11:07:00 EDT, EC Capsule, [facility]/pharmacy #[id number], 163, cm, 01/02/20 7:50:00 EDT, [...] 01/02/20 4:30:00 EDT, [facility] Start Date: 01/02/20 Status: Orderedsimethicone 125 mg oral capsule See Instructions, TAKE 1 CAPSULE BY MOUTH THREE TIMES A DAY AFTER MEALS AND AT BEDTIME NEEDED, # 48 capsule, 2 Refills, Acute, [facility] STORE 08997, 163, cm, 05/28/20 11:24:00 EDT, Height, 88.9, kg, 04/03/20 14:59:00 EDT, Dry Weight Start Date: 06/03/20 Status: OrderedTums 500 mg oral tablet, chewable 1,000 mg, 2, tablet, Chew, Every 6 hours, PRN, # 120 tablet, Refills 11, Tot. Refills 11, Maintenance, for indigestion, 11/11/19 12:12:32 EST, Route to Pharmacy Electronically, [facility]/pharmacy #[id number] Start Date: 08/06/19 Stop Date: 07/01/20 Status: OrderedZyrTEC 10 mg oral tablet 1 tablet = 10 mg, By Mouth, Daily, # 30 tablet, 3 Refills, Maintenance, 04/03/20 15:37:00 EDT, Tablet, [facility] [...]
--- OUTSIDE RECORDS SUMMARY | 2022-06-29 21:26 | XMS_ITS | Continuity of Care Document ---
:1990 Author Organization [facility] Address [address] [place] [address]- Care Team Providers Name Role Phone Fatoumata Stokes DO Primary Care Physician [facility] Date[facility]s): 04/15/21 - 05/15/21 [facility] [address] [place], [place] [address] Allergies, Adverse Reactions, Alerts Substance Reaction [...] 11/22/19 13:30:00 EST, Route to Pharmacy Electronically, [facility]/pharmacy #[id number], 159, cm, 11/19/19 8:17:00 EST, [...] 02/16/21 14:03:00 EDT, [facility] STORE [address]333, 164, cm, 10/14/20 10:13:00 EST, Height, 112, kg, 10/14/20 10:13:00 EST, Dry Weight Start Date: 02/16/21 Status: Ordereddocusate sodium 100 mg oral capsule 1 capsule, By Mouth, 2 times a day, # 60 capsule, 5 Refills, Maintenance, 01/12/21 20:05:00 EDT, [id number] 164, cm, 10/14/20 10:13:00 EST, Height, 112, [...] 5 Refills, Maintenance, [facility] STORE 96791, 30, USE 1 SPRAY IN EACH NOSTRIL [...] 3 Refills, Soft Stop, 03/13/21 13:05:00 EDT, [facility]/pharmacy #[id number], 164, cm, 03/13/21 9:51:00 EDT, Height, 112, kg, 10/14/20 10:13:00 EST, Dry Weight Start Date: 03/13/21 Status: OrderedMiraLax oral powder for reconstitution = 17 Gm, By Mouth, Daily, dissolve in water before taking, # 255 Gm, 0 Refills, Maintenance, 07/11/20 15:38:00 EDT, REC Powder, [facility]/pharmacy #[id number], 17 Gm By Mouth Daily,Instr:dissolve in water before taking, 163, cm, 05/28/20 11:24:00 EDT, Height, 102... Start Date: 07/11/20 Status: Orderedomeprazole 20 mg oral enteric coated capsule 1 capsule, By Mouth, Daily, # 90 capsule, 0 Refills, Maintenance, 04/17/21 13:04:00 EDT, [facility] STORE [facility], 164, cm, 04/07/21 15:35:00 EDT, Height, 112, [...] 02/19/21 17:23:00 EDT, Route to Pharmacy Electronically, [facility] STORE 22835, 164, cm,10/14/20 10:13:00 EST, Height, 112, kg, 10/14/20... Start Date: 02/19/21 Status: Orderedsimethicone 125 mg oral capsule See Instructions, TAKE 1 CAPSULE BY MOUTH THREE TIMES A DAY AFTER MEALS AND AT BEDTIME NEEDED, # 48 capsule, 11 Refills, Maintenance, 10/21/20 9:08:00 EST, [facility]/pharmacy #[id number], 164, cm, 10/14/20 [...]
--- OUTSIDE RECORDS SUMMARY | 2022-06-29 21:26 | XMS_ITS | Continuity of Care Document ---
:1990 Author Organization [facility] Address [address] [place] [id number]- Care Team Providers Name Role Phone Fatoumata Stokes DO Primary Care Physician [place] [facility] [place] - 10/23/[address] [address]- [facility] Discharge Disposition: A-D/C Walkout Attending Physician: Not [...] Gm, 0 Refills, Maintenance, 10/01/19 17:16:00 EST, [facility]/pharmacy #[id number], apply to nipple daily prn [...] Maintenance,08/06/19 12:12:29 EST, Route to Pharmacy Electronically, [id number], [facility]/pharmacy #[id number] Start Date: 08/06/19 Stop Date: [...] 08/06/19 12:12:30 EST, Route to Pharmacy Electronically, [id number], [facility]/pharmacy #[id number] Start Date: 08/06/19 Status: Orderedlithium [...] Refills, Maintenance, 10/01/19 17:16:00 EST, EC Capsule, [facility]/pharmacy #[id number], 165.1, cm, 10/01/19 11:34:00 EST, [...] 08/06/19 12:12:32 EST, Route to Pharmacy Electronically, [id number], [facility]/pharmacy #[id number] Start Date: 08/06/19 Status: Ordered [...] 1Really accelerated when seroquel dose increased Results Orders for Microbiology Reports Name Date Urine Culture (URINE CULTURE) 10/22/19 Microbiology Reports TEST:Urine Culture STATUS:Auth (Verified) BODY SITE: SOURCE:URINE COLLECTED DATE/TIME:10/22/19 4:09 PMUrine Culture SPECIMEN DESCRIPTION : URINE CLEAN CATCH/MIDSTREAM SPECIAL REQUESTS : NONE Reflexed from [id number] CULTURE : Mixed bacterial armen, indicative of urogenital contamination. REPORT STATUS : FINAL 10/23/2019 Vital Signs Most recent to oldest [Reference Range]: 1 2 Weight 89.7 kg 89.7 kg (10/22/19 3:37 PM) (10/22/19 2:36 PM) Oxygen Saturation [94-100 %] 100 % 100 % (10/22/19 10:17 PM) (10/22/19 2:36 PM) Pulse Rate [55-90 bpm] 61 bpm 87 bpm (10/22/19 10:17 PM) (10/22/19 2:36 PM) Blood Pressure [90-138/55-84 mm Hg] 122/94 mm Hg 134/ 91 mm Hg (10/22/19 10:17 PM) (10/22/19 2:36 PM) Respiratory Rate [16-30 br/min] 16 br/min 18 br/mi n (10/22/19 10:17 PM) (10/22/19 2:36 PM) Temperature [96.8-100.4 DegF] 98.7 DegF 98.9 DegF (10/22/19 10:17 PM) (10/22/19 2:36 PM) Mode of Delivery (Oxygen) Room air Room air (10/22/19 10:17 PM) (10/22/19 2:36 PM) Blood pressure sites Arm, right Arm, right (10/22/19 10:17 PM) (10/22/19 2:36 PM) Temperature Route Oral Oral (10/22/19 10:17 PM) (10/22/19 2:36 PM) Dry Weight 89.7 kg 89.7 kg (10/22/19 3:37 PM) (10/22/19 2:36 PM) Weight Obtained Via Standing scale (10/22/19 2:36 PM) Dry Weight Obtained Via Standing scale (10/22/19 2:36 PM) Social History Social History Type Response Smoking Status Light tobacco smoker entered on: 09/26/14 Sex
--- OUTSIDE RECORDS SUMMARY | 2022-06-29 21:26 | XMS_ITS | Continuity of Care Document ---
:[address] [facility] Address [address] [place] [address]- Care Team Providers Name Role Phone Fatoumata Stokes DO Primary Care Physician [place] [facility] [place] 05/28/21 - 06/04/21 [facility] [address] [place], [place] [address] Encounter Diagnosis Abdominal pain (Discharge Diagnosis) - 05/28/21 Suicide ideation (Discharge Diagnosis) - 05/28/21 Attending Physician: Melissa [employer], Wendy Allergies, Adverse Reactions, Alerts Substance Reaction Severity [...] 05/28/21 7:42:00 EDT, Route to Pharmacy Electronically, [facility]/pharmacy #[id number], 164, cm, 04/07/21 15:35:00 EDT, Height, 112, kg, 10/14/20 10... Start Date: 05/28/21 Status: OrderedBenefiber oral powder for reconstitution 5 mL, By Mouth, 2 times a day, PRN as needed for constipation, dissolve in 4 to 8 oz of beverage or soft food- hot or cold, # 155 Gm, 11 Refills, Maintenance, 03/05/21 15:58:00 EDT, REC Powder, [facility]/pharmacy #[id number], Partial fill upon patient request [...] tablet, 5 Refills, Maintenance, 02/16/21 14:03:00 EDT, [facility] STORE [id number], 164, cm, 10/14/20 10:13:00 EST, Height, 112, kg, 10/14/20 10:13:00 EST, Dry Weight Start Date: 02/16/21 Status: Ordereddocusate sodium 100 mg oral capsule 1 capsule, By Mouth, 2 times a day, # 60 capsule, 5 Refills, Maintenance, 01/12/21 20:05:00 EDT, [id number], 164, cm, 10/14/20 10:13:00 EST, Height, 112, kg, 10/14/20 10:13:00 EST, Dry Weight Start Date: 01/12/21 Status: OrderedEstradiol Patch 0.1 mg/24 hours twice weekly transdermal film, extended release See Instructions, APPLY 1 PATCH TOPICALLY EVERY TUESDAY & TUESDAY, # 8 patch, 12 Refills, 03/13/21 13:04:00 EDT, [facility]/pharmacy #[id number], 28, APPLY 1 PATCH TOPICALLY EVERY TUESDAY & TUESDAY, 164, cm, 03/13/21 9:51:00 EDT, Height, 112, kg, 10/14/20 10:13:00... Start Date: 03/13/21 Status: Orderedferrous sulfate 325 mg oral enteric coated tablet 325 mg, 1, tablet, By Mouth, Daily, # 90 tablet, Refills 1, Tot. Refills 1, Maintenance, 10/31/20 16:01:00 EST, Route to Pharmacy Electronically, [facility]/pharmacy #[id number], 164, cm, 10/14/20 10:13:00 EST, Height, 112, kg, 10/14/20 10:13:00 EST, Dry Weight Start Date: 10/31/20 Status: Orderedfluticasone 50 mcg/inh nasal spray See Instructions, USE 1 SPRAY IN EACH NOSTRIL TWICE A DAY, # 16 mL, 5 Refills, Maintenance, [facility] STORE [id number], 30, USE 1 SPRAY IN EACH NOSTRIL TWICE A DAY, 164, cm, 10/14/20 10:13:00 EST, Height, 112, kg, 10/14/20 10:13:00 EST, Dry Weight Start Date: 03/06/21 Status: Orderedlithium 300 mg oral tablet 1 tablet = 300 mg, By Mouth, Daily in AM, # 30 tablet, 0 Refills, Maintenance, 01/01/20 16:16:00 EDT, [id number], cm, 01/01/20 [...] 3 Refills, Soft Stop, 03/13/21 13:05:00 EDT, [facility]/pharmacy #[id number], 164, cm, 03/13/21 9:51:00 EDT, Height, 112, kg, 10/14/20 10:13:00 EST, Dry Weight Start Date: 03/13/21 Status: OrderedMiraLax oral powder for reconstitution = 17 Gm, By Mouth, Daily, dissolve in water before taking, # 255 Gm, 0 Refills, Maintenance, 07/11/20 15:38:00 EDT, REC Powder, [facility]/pharmacy #[id number], 17 Gm By Mouth Daily,Instr:dissolve in water before taking, 163, cm, 05/28/20 11:24:00 EDT, Height, 102... Start Date: 07/11/20 Status: Orderedomeprazole 20 mg oral enteric coated capsule 1 capsule, By Mouth, Daily, # 90 capsule, 0 Refills, Maintenance, 04/17/21 13:04:00 EDT, [id number], 164, cm, 04/07/21 15:35:00 EDT, Height, 112, [...] 01/02/20 4:30:00 EDT, Route to Pharmacy Electronically, [facility]/pharmacy... Start Date: 01/02/20 Status: OrderedSenna 8.6 mg oral tablet 1, tablet, By Mouth, Daily at bedtime, PRN, # 60 tablet, Refills 1, Tot. Refills 0, Acute, NEEDEDFOR CONSTIPATION, 02/19/21 17:23:00 EDT, Route to Pharmacy Electronically, [facility] ST[facility] [id number], 164, cm,10/14/20 10:13:00 EST, Height, 112, kg, 10/14/20... Start Date: 02/19/21 Status: Orderedsimethicone 125 mg oral capsule See Instructions, TAKE 1 CAPSULE BY MOUTH THREE TIMES A DAY AFTER MEALS AND AT BEDTIME NEEDED, # 48 capsule, 11 Refills, [id number], 164, cm, 04/07/21 15:35:00 EDT, Height, 112, [...] past(Confirmed)1 1Really accelerated when seroquel dose increased Diagnosis Diagnosis Type Effective Dates Health Status Clinical In formant Service Abdominal pain Discharge 05/28/21 Diagnosis Suicide ideation Discharge 05/28/21 Diagnosis Vital Signs Most recent to oldest [Reference Range]: 1 Height 164 cm (05/28/21 1:07 PM) Weight 98.7 kg (05/28/21 1:07 PM) Pulse Rate [55-90 bpm] 101 bpm *H* (05/28/21 1:07 PM) Body Mass Index [18.5-24.99] 36.7 *>HHI* (05/28/21 1:07 PM) Blood Pressure [90-138/55-84 mm Hg] 122/80 mm Hg (05/28/21 1:07 PM) Temperature [96.8-100.4 DegF] 98.7 DegF (05/28/21 1:07 PM) Temperature Route Temporal (05/28/21 1:07 PM) Social History Social History Type Response Tobacco Use: 4 or less cigarettes(le ss than 1/4 pack)/day in last 30 days. Sex Female
--- OUTSIDE RECORDS SUMMARY | 2022-06-29 21:26 | XMS_ITS | Continuity of Care Document ---
:1990 Author Organization [facility] Address [address] [place] [id number]- Care Team Providers Name Role Phone Fatoumata Stokes DO Primary Care Physician Encounter [facility] Date(s): 04/22/21 - 04/22/[address] [address]- Discharge Disposition: A-D/C Home Attending Physician: Chad [...] EST, Route to Pharmacy Electronically, [facility]/pharmacy #[id number], 159, cm, 11/19/19 8:17:00 EST, [...] tablet, 5 Refills, Maintenance, 02/16/21 14:03:00 EDT, [facility] STORE [address]8794, 164, cm, 10/14/20 10:13:00 EST, Height, 112, kg, 10/14/20 10:13:00 EST, Dry Weight Start Date: 02/16/21 Status: Ordereddocusate sodium 100 mg oral capsule 1 capsule, By Mouth, 2 times a day, # 60 capsule, 5 Refills, Maintenance, 01/12/21 20:05:00 [id number], 164, cm, 10/14/20 10:13:00 EST, Height, 112, [...] 10/31/20 16:01:00 EST, Route to Pharmacy Electronically, [facility]/pharmacy #[id number], 164, cm, 10/14/20 10:13:00 EST, Height, 112, kg, 10/14/20 10:13:00 EST, Dry Weight Start Date: 10/31/20 Status: Orderedfluticasone 50 mcg/inh nasal spray See Instructions, USE 1 SPRAY IN EACH NOSTRIL TWICE A DAY, # 16 mL, 5 Refills, Maintenance, [facility] ST[facility] [address]40, 30, USE 1 SPRAY IN EACH NOSTRIL [...] capsule, 0 Refills, Maintenance, 04/17/21 13:04:00 EDT, [facility] STORE [address]26, 164, cm, 04/07/21 15:35:00 EDT, Height, 112, [...] 02/19/21 17:23:00 EDT, Route to Pharmacy Electronically, [facility] [address], 164, cm,10/14/20 10:13:00 EST, Height, 112, kg, 10/14/20... Start Date: 02/19/21 Status: Orderedsimethicone 125 mg oral capsule See Instructions, TAKE 1 CAPSULE BY MOUTH THREE TIMES A DAY AFTER MEALS AND AT BEDTIME NEEDED, # 48 capsule, 11 Refills, Maintenance, 10/21/20 9:08:00 EST, [facility]/pharmacy #[id number], 164, cm, 10/14/20 10:13:00 EST, [...] Saturation [94-100 %] 100 % 100 % (04/22/21 6:54 PM) (04/22/21 3:03 PM) Pulse Rate [55-90 bpm] 80 bpm 88 bpm (04/22/21 6:54 PM) (04/22/21 3:03 PM) Blood Pressure [90-138/55-84 mm Hg] 121/72 mm Hg 129/ 76 mm Hg (04/22/21 6:54 PM) (04/22/21 3:03 PM) Respiratory Rate [16-30 br/min] 20 br/min 17 br/mi n (04/22/21 6:54 PM) (04/22/21 3:03 PM) Temperature [96.8-100.4 DegF] 98.4 DegF 98.5 DegF (04/22/21 6:54 PM) (04/22/21 3:03 PM) Mode of Delivery (Oxygen) Room air Room air (04/22/21 6:54 PM) (04/22/21 3:03 PM) Blood pressure sites Arm, right Arm, left (04/22/21 6:54 PM) (04/22/21 3:03 PM) Temperature Route Oral Oral (04/22/21 6:54 PM) (04/22/21 3:03 PM) Social History Social History Type Response Tobacco Use: 4 or less cigarettes(le ss than 1/4 pack)/day in last 30 days. Sex Female
--- OUTSIDE RECORDS SUMMARY | 2022-06-29 21:26 | XMS_ITS | Continuity of Care Document ---
:1990 Author Organization [facility] Address [address] [place] [address], [address] [place] [address]- Care Team Providers Name Role Phone Fatoumata Stokes DO Primary Care Physician Encounter [facility] Date(s): 11/13/20 - 12/13/20 [facility] [address], [address] [place] [id number] Allergies, Adverse Reactions, Alerts Substance [...] DISCOMFORT, # 50 Gm, 0 Refills, Maintenance, [facility] [address]86, 7, APPLY TO NIPPLE DAILY NEEDED FOR [...] Refills, Maintenance, 12/04/20 14:32:00 EST, REC Powder, [id number] Partial fill upon patient request if t... Start Date: 12/04/20 Status: Orderedbenztropine 1 mg oral tablet 1 mg, 1, tablet, By Mouth, 2 times a day, # 60 tablet, Refills 0, Tot. Refills 0, Maintenance, 01/01/20 16:15:00 EDT, [facility]ically[id number] 163, cm, 01/01/20 14:39:00 EDT, Height, 86.5, kg, 12/19/19 19:14:00 EDT, Dry We... Start Date: 01/01/20 Stop Date: 01/31/20 Status: OrderedDepo-Provera Contraceptive 150 mg/mL intramuscular suspension 1 mL = 150 mg, Intramuscular, Every 3 months, # 1 mL, 3 Refills, Maintenance, 08/26/20 9:54:00 EST, Suspension, [facility], 163, cm, 05/28/20 11:24:00 [...] 8 patch, 2 Refills, 12/03/20 8:15:00 EST, [facility]/pharmacy #[id number], 28, APPLY [...] Gm, 5 Refills, Maintenance, 07/04/20 9:01:00 EDT, [place], [facility]/pharmacy #[id number], 1 sprays Nares, [...] Refills, Maintenance, 07/11/20 15:38:00 EDT, REC Powder, [facility]/pharmacy #[id number], 17 Gm By Mouth Daily,Instr:dissolve in water before taking, 163, cm, 05/28/20 11:24:00 EDT, Height, 102... Start Date: 07/11/20 Status: Orderedomeprazole 20 mg oral enteric coated capsule 1 capsule = 20 mg, By Mouth, Daily, # 30 capsule, 2 Refills, Maintenance, 12/08/20 10:55:00 EDT, EC Capsule, [facility]/pharmacy #[id number], 164, cm, 10/14/20 10:13:00 EST, Height, 112, kg, 10/14/20 10:13:00 EST, Dry Weight Start Date: 12/08/20 Status: Orderedperphenazine 16 mg oral tablet 16 mg, 1, tablet, By Mouth, 2 times a day, # 60 tablet, Refills 0, Tot. Refills 0, Maintenance, 01/01/20 16:18:00 EDT, [facility] Electronically, [facility]... Start Date: 01/02/20 Status: Orderedsenna - oral tablet 1 tablet, By Mouth, Daily at bedtime, PRN for constipation, # 60 tablet, 1 Refills, Maintenance, 12/04/20 14:28:00 EST, Tablet, [facility]/pharmacy #[id number], Partial fill [...] 08/06/19 12:12:32 EST, Route to Pharmacy Electronically, [facility]/pharmacy #[id number] Start Date: 08/06/19 Stop Date: 07/01/20 Status: OrderedZyrTEC 10 mg oral tablet 1 tablet = 10 mg, By Mouth, Daily, # 30 tablet, 5 Refills, Maintenance, 07/22/20 15:24:00 EDT, Tablet, [facility]/pharmacy #[id number], 163, cm, 05/28/20 [...]
--- OUTSIDE RECORDS SUMMARY | 2022-06-29 21:26 | XMS_ITS | Continuity of Care Document ---
:1990 Author Organization [facility] Address [address] [place] [address]- Care Team Providers Name Role Phone Fatoumata Stokes DO Primary Care Physician Encounter [facility] Date(s): 12/06/20 - 12/07/[address] [address]- Encounter Diagnosis Abdominal pain (Final) - 12/06/20 Discharge Disposition: A-D/C Home Attending Physician: Jani [...] 13:30:00 EST, Route to Pharmacy Electronically, [facility]/pharmacy #[id number], 159, cm, 11/19/19 8:17:00 EST, Height, 89.7, kg, 11/14/19 9... Start Date: 11/22/19 Status: OrderedAquaphor Healing topical ointment See Instructions, APPLY TO NIPPLE DAILY NEEDED FOR DISCOMFORT, # 50 Gm, 0 Refills, Maintenance, [facility] [address]68, 7, APPLY TO NIPPLE DAILY NEEDED FOR [...] Refills, Maintenance, 12/04/20 14:32:00 EST, REC Powder, [id number], Partial fill upon patient request if t... Start Date: 12/04/20 Status: Orderedbenztropine 1 mg oral tablet 1 mg, 1, tablet, By Mouth, 2 times a day, # 60 tablet, Refills 0, Tot. Refills 0, Maintenance, 01/01/20 16:15:00 EDT, [facility]ically, [id number], 163, cm, 01/01/20 14:39:00 EDT, Height, [...] Maintenance,01/08/20 11:07:00 EDT, [facility], [id number], 163, cm, 01/02/20 7:50:00 EDT, Height, 86.5, kg, 12/19/19 19:14:00 EDT, D... Start Date: 01/08/20 Stop Date: 01/02/21 Status: OrderedEstradiol Patch 0.1 mg/24 hours twice weekly transdermal film, extended release See Instructions, APPLY 1 PATCH TOPICALLY EVERY TUESDAY & TUESDAY, # 8 patch, 2 Refills, 12/03/20 8:15:00 EST, [id number], 28, APPLY 1 PATCH TOPICALLY EVERY TUESDAY & TUESDAY, 164, cm, 10/14/20 10:13:00 EST, Height, 112, kg, 10/14/20 10:13:00... Start Date: 12/03/20 Status: Orderedferrous sulfate 325 mg oral enteric coated tablet 325 mg, 1, tablet, By Mouth, Daily, # 90 tablet, Refills 1, Tot. Refills 1, Maintenance, 10/31/20 16:01:00 EST, Route to Pharmacy Electronically, [facility]/pharmacy #[id number], 164, cm, 10/14/20 10:13:00 EST, Height, 112, kg, 10/14/20 10:13:00 EST, Dry Weight Start Date: 10/31/20 Status: OrderedFlonase 50 mcg/inh nasal spray 1 sprays, Nares, Both, 2 times a day, # 16 Gm, 5 Refills, Maintenance, 07/04/20 9:01:00 EDT, [place], [facility]/pharmacy #[id number], 1 sprays Nares, Both 2 times a day, 163, cm, 05/28/20 11:24:00 EDT, Height, 102.3, kg, 06/22/20 23:55:00 EDT, Dry Weight Start Date: 07/04/20 Status: Orderedlithium 300 mg oral tablet 1 tablet = 300 mg, By Mouth, Daily in AM, # 30 tablet, 0 Refills, Maintenance, 01/01/20 16:16:00 EDT, Tablet, [facility]/pharmacy #[id number], 163, cm, 01/01/20 14:39:00 EDT, Height, 86.5, kg, 12/19/19 19:14:00 EDT, Dry Weight Start Date: 01/01/20 Stop Date: 01/29/20 Status: Orderedlithium 600 mg oral capsule 1 capsule = 600 mg, By Mouth, Daily at bedtime, # 30 capsule, 0 Refills, Maintenance, 01/01/20 16:16:00 EDT, Capsule, [facility]/pharmacy #[id number], 163, cm, 01/01/20 14:39:00 EDT, [...] Maintenance, 07/11/20 15:38:00 EDT, REC Powder, [facility]/pharmacy #[id number], 17 Gm By Mouth Daily,Instr:dissolve in water before taking, 163, cm, 05/28/20 11:24:00 EDT, Height, 102... Start Date: 07/11/20 Status: Orderedomeprazole 20 mg oral enteric coated capsule 1 capsule = 20 mg, By Mouth, Daily, # 30 capsule, 5 Refills, Maintenance, 07/07/20 11:44:00 EDT, EC Capsule, [facility]/pharmacy #[id number], 163, cm, 05/28/20 11:24:00 EDT, Height, 102.3, kg, 06/22/20 23:55:00 EDT, Dry Weight Start Date: 07/07/20 Status: Orderedperphenazine 16 mg oral tablet 16 mg, 1, tablet, By Mouth, 2 times a day, # 60 tablet, Refills 0, Tot. Refills 0, Maintenance, 01/01/20 16:18:00 EDT, Route to Pharmacy Electronically, [facility]/pharmacy #[id number], 163, cm, 01/01/20 14:39:00 EDT, [...] 4:30:00 EDT, Route to Pharmacy Electronically, [facility]/pharmacy... Start Date: 01/02/20 Status: Orderedsenna - oral tablet 1 tablet, By Mouth, Daily at bedtime, PRN for constipation, # 60 tablet, 1 Refills, Maintenance, 12/04/20 14:28:00 EST, Tablet, [facility]/pharmacy #[id number], Partial fill upon patient request [...] 12:12:32 EST, Route to Pharmacy Electronically, [facility]/pharmacy #[id number] Start Date: 08/06/19 Stop Date: 07/01/20 Status: OrderedZyrTEC 10 mg oral tablet 1 tablet = 10 mg, By Mouth, Daily, # 30 tablet, 5 Refills, Maintenance, 07/22/20 15:24:00 EDT, Tablet, [facility]/pharmacy #[id number], 163, cm, 05/28/20 11:24:00 EDT, [...] %] 100 % 100 % 100 % (12/07/20 1:49 AM) (12/06/20 9:57 PM) (12/06/20 5:1 6 PM) Pulse Rate [55-90 bpm] 74 bpm 79 bpm 82 bpm (12/07/20 1:49 AM) (12/06/20 9:57 PM) (12/06/20 5:1 6 PM) Blood Pressure [90-138/55-84 mm 119/60 mm Hg 102/60 mm Hg 127/67 mm Hg Hg] (12/07/20 1:49 AM) (12/06/20 9:57 PM) (12/06/20 5:1 6 PM) Respiratory Rate [16-30 br/min] 17 br/min 16 br/min 17 br/min (12/07/20 1:49 AM) (12/06/20 9:57 PM) (12/06/20 5:1 6 PM) Temperature [96.8-100.4 DegF] 98.6 DegF 98.6 DegF (12/07/20 1:49 AM) (12/06/20 5:16 PM) Mode of Delivery (Oxygen) Room air Room air Room a ir (12/07/20 1:49 AM) (12/06/20 9:57 PM) (12/06/20 5:1 6 PM) Blood pressure sites Arm, right (12/06/20 9:57 PM) Temperature Route Oral Oral (12/07/20 1:49 AM) (12/06/20 5:16 PM) Social History Social History Type Response Tobacco Use: 4 or less cigarettes(le ss than 1/4 pack)/day in last 30 days. Sex Female
--- OUTSIDE RECORDS SUMMARY | 2022-06-29 21:27 | XMS_ITS | Continuity of Care Document ---
:1990 Author Organization [facility] Address [address] [place] [address]- Care Team Providers Name Role Phone Fatoumata Stokes DO Primary Care Physician [facility] Date[facility]): 07[facility]14/20 - 07/21/20 [facility] [address] [place] [address]- [facility] Encounter Diagnosis GI symptoms (Discharge Diagnosis) - 07/14/20 Attending Physician: Yeimi Rayo MD Allergies, Adverse Reactions, Alerts Substance Reaction [...] Route to Pharmacy Electronically, [facility]/pharmacy #[id number], 159, cm, 11/19/19 8:17:00 EST, Height, 89.7, kg, 11/14/19 9... Start Date: 11/22/19 Status: OrderedAquaphor Healing topical ointment See Instructions, APPLY TO NIPPLE DAILY NEEDED FOR DISCOMFORT, # 50 Gm, 0 Refills, Maintenance, [facility] STORE [id number], 7, APPLY TO NIPPLE DAILY NEEDED FOR DISCOMFORT, 159, cm, 12/10/19 11:02:00 EDT, Height, 86.7, kg, 12/10/19 11:02:00 EDT, Dry Weight Start Date: 12/10/19 Status: Orderedbenztropine 1 mg oral tablet 1 mg, 1, tablet, By Mouth, 2 times a day, # 60 tablet, Refills 0, Tot. Refills 0, Maintenance, 01/01/20 16:15:00 EDT, Route to Pharmacy Electronically, [facility]/pharmacy #[id number], 163, cm, 01/01/20 14:39:00 EDT, Height, 86.5, kg, 12/19/19 19:14:00 EDT, Dry We... Start Date: 01/01/20 Stop Date: 01/31/20 Status: OrderedDepo-Provera Contraceptive 150 mg/mL intramuscular suspension 1 mL = 150 mg, Intramuscular, Every 3 months, # 1 mL, 3 Refills, Maintenance, 05/28/20 11:29:00 EDT,Suspension, [facility], 163, cm, 05/28/20 11:24:00 EDT, Height, 88.9, kg, 04/03/20 14:59:00 EDT, Dry Weight Start Date: 05/28/20 Status: Ordereddocusate sodium 100 mg oral capsule 100 mg, 1, capsule, By Mouth, 2 times a day, # 60 capsule, Refills 11, Tot. Refills 11, Maintenance,01/08/20 11:07:00 EDT, Route to Pharmacy Electronically, [facility]/pharmacy #[id number], 163, cm, 01/02/20 7:50:00 EDT, Height, 86.5, kg, 12/19/19 19:14:00 EDT, D... Start Date: 01/08/20 Stop Date: 01/02/21 Status: Orderedestradiol 0.1 mg/24 hours twice weekly transdermal film, extended release 1 patch, Topically, Every Tuesday and , # 8 patch, 6 Refills, Maintenance, 05/28/20 11:01:00 EDT, [facility]/pharmacy #[id number], 163, cm, 04/03/20 14:59:00 EDT, Height, 88.9, kg, 04/03/20 14:59:00 EDT, DryWeight Start Date: 05/28/20 Status: OrderedEucerin Plus topical lotion 1 application, Topically, 2 times a day, PRN for dry skin, May apply to affected area every 6 hours as needed, up to 2 times/day, # 180 mL, 11 Refills, Maintenance, 08/06/19 12:15:04 EST, Lotion, [facility]/pharmacy #[id number] Start Date: 08/06/19 Status: Orderedferrous sulfate 325 mg oral enteric coated tablet 325 mg, 1, tablet, By Mouth, Daily, # 30 tablet, Refills 11, Tot. Refills 11, Maintenance, 01/08/20 11:07:00 EDT, Route to Pharmacy Electronically, [facility]/pharmacy #[id number], 163, cm, 01/02/20 7:50:00 EDT, Height, 86.5, kg, 12/19/19 19:14:00 EDT, Dry Weight Start Date: 01/08/20 Status: OrderedFlonase 50 mcg/inh nasal spray 1 sprays, Nares, Both, 2 times a day, # 16 Gm, 5 Refills, Maintenance, 07/04/20 9:01:00 EDT, [place], [facility]/pharmacy #[id number], 1 sprays Nares, Both 2 times a day, 163, cm, 05/28/20 11:24:00 EDT, Height, 102.3, kg, 06/22/20 23:55:00 EDT, Dry Weight Start Date: 07/04/20 Status: Orderedlithium 300 mg oral tablet 1 tablet = 300 mg, By Mouth, Daily in AM, # 30 tablet, 0 Refills, Maintenance, 01/01/20 16:16:00 EDT, Tablet, [facility]/pharmacy #[id number], 163, cm, 01/01/20 14:39:00 EDT, Height, 86.5, kg, 12/19/19 19:14:00 EDT, Dry Weight Start Date: 01/01/20 Stop Date: 01/29/20 Status: Orderedlithium 600 mg oral capsule 1 capsule = 600 mg, By Mouth, Daily at bedtime, # 30 capsule, 0 Refills, Maintenance, 01/01/20 16:16:00 EDT, Capsule, [facility]/pharmacy #[id number], 163, cm, 01/01/20 14:39:00 EDT, Height, 86.5, kg, 12/19/19 19:14:00 EDT, Dry Weight Start Date: 01/01/20 Stop Date: 03/01/20 Status: OrderedMiraLax oral powder for reconstitution = 17 Gm, By Mouth, Daily, dissolve in water before taking, # 255 Gm, 0 Refills, Maintenance, 07/11/20 15:38:00 EDT, REC Powder, [facility]/pharmacy #[id number], 17 Gm By Mouth Daily,Instr:dissolve in [...] Refills, Maintenance, 07/07/20 11:44:00 EDT, EC Capsule, [facility]/pharmacy #[id number], 163, cm, 05/28/20 11:24:00 EDT, Height, 102.3, kg, 06/22/20 23:55:00 EDT, Dry Weight Start Date: 07/07/20 Status: Orderedperphenazine 16 mg oral tablet 16 mg, 1, tablet, By Mouth, 2 times a day, # 60 tablet, Refills 0, Tot. Refills 0, Maintenance, 01/01/20 16:18:00 EDT, Route to Pharmacy Electronically, [facility]/pharmacy #[id number], 163, cm, 01/01/20 14:39:00 EDT, Height, [...] Route to Pharmacy Electronically, [facility]/pharmacy... Start Date: 01/02/20 Status: Orderedsimethicone 125 mg oral capsule See Instructions, TAKE 1 CAPSULE BY MOUTH THREE TIMES A DAY AFTER MEALS AND AT BEDTIME NEEDED, # 48 capsule, 2 Refills, Acute, [facility] STORE [id number], 163, cm, 05/28/20 11:24:00 EDT, Height, 88.9, kg, 04/03/20 14:59:00 EDT, Dry Weight Start Date: 06/03/20 Status: OrderedTums 500 mg oral tablet, chewable 1,000 mg, 2, tablet, Chew, Every 6 hours, PRN, # 120 tablet, Refills 11, Tot. Refills 11, Maintenance, for indigestion, 08/06/19 12:12:32 EST, Route to Pharmacy Electronically, [facility]/pharmacy #[id number] Start Date: 08/06/19 Stop Date: 07/01/20 Status: OrderedZyrTEC 10 mg oral tablet 1 tablet = 10 mg, By Mouth, Daily, # 30 tablet, 3 Refills, Maintenance, 04/03/20 15:37:00 EDT, Tablet, [facility]/pharmacy #[id number], 163, cm, 04/03/20 14:59:00 EDT, Height, [...] Diagnosis Type Effective Dates Health Status Clinical Serv ice Informant GI symptoms Discharge 07/14/20 Diagnosis Social History Social History Type Response Tobacco Use: 4 or less cigarettes(le ss than 1/4 pack)/day in last 30 days. Sex Female
--- OUTSIDE RECORDS SUMMARY | 2022-06-29 21:27 | XMS_ITS | Continuity of Care Document ---
:1990 Author Organization [facility] Address [address] [place] [address]- Care Team Providers Name Role Phone Fatoumata Stokes DO Primary Care Physician [facility] Date[facility]): 10/30/20 - 11/29/20 [facility] [address] [place], [place] [address] Allergies, Adverse Reactions, Alerts Substance [...] 11/22/19 13:30:00 EST, Route to Pharmacy Electronically, [facility]/pharmacy #[id number], 159, cm, 11/19/19 8:17:00 EST, Height, 89.7, kg, 11/14/19 9... Start Date: 11/22/19 Status: OrderedAquaphor Healing topical ointment See Instructions, APPLY TO NIPPLE DAILY NEEDED FOR DISCOMFORT, # 50 Gm, 0 Refills, Maintenance, [facility] STORE [id number], 7, APPLY TO NIPPLE DAILY NEEDED FOR DISCOMFORT, 159, cm, 12/10/19 11:02:00 EDT, Height, 86.7, kg, 12/10/19 11:02:00 EDT, Dry Weight Start Date: 12/10/19 Status: Orderedbenztropine 1 mg oral tablet 1 mg, 1, tablet, By Mouth, 2 times a day, # 60 tablet, Refills 0, Tot. Refills 0, Maintenance, 01/01/20 16:15:00 EDT, Route to Pharmacy Electronically, [facility]/pharmacy #[id number], 163, cm, 01/01/20 14:39:00 EDT, Height, 86.5, kg, 12/19/19 19:14:00 EDT, Dry We... Start Date: 01/01/20 Stop Date: 01/31/20 Status: OrderedDepo-Provera Contraceptive 150 mg/mL intramuscular suspension 1 mL = 150 mg, Intramuscular, Every 3 months, # 1 mL, 3 Refills, Maintenance, 08/26/20 9:54:00 EST, Suspension, [facility], 163, cm, 05/28/20 11:24:00 EDT, Height, 100, kg, 08/04/20 11:40:00 EST, Dry Weight Start Date: 08/26/20 Status: Ordereddocusate sodium 100 mg oral capsule 100 mg, 1, capsule, By Mouth, 2 times a day, # 60 capsule, Refills 11, Tot. Refills 11, Maintenance,01/08/20 11:07:00 EDT, Route to Pharmacy Electronically, [facility]/pharmacy #[id number], 163, cm, 01/02/20 7:50:00 EDT, Height, 86.5, kg, 12/19/19 19:14:00 EDT, D... Start Date: 01/08/20 Stop Date: 01/02/21 Status: Orderedestradiol 0.1 mg/24 hours twice weekly transdermal film, extended release 1 patch, Topically, Every Tuesday and , # 8 patch, 6 Refills, Maintenance, 05/28/20 11:01:00 EDT, [facility]/pharmacy #[id number], 163, cm, 04/03/20 14:59:00 EDT, Height, 88.9, kg, 04/03/20 14:59:00 EDT, DryWeight Start Date: 05/28/20 Status: OrderedEucerin Plus topical lotion 1 application, Topically, 2 times a day, PRN for dry skin, May apply to affected area every 6 hours as needed, up to 2 times/day, # 180 mL, 11 Refills, Maintenance, 08/06/19 12:15:04 EST, Lotion, [facility]/pharmacy #[id number] Start Date: 08/06/19 Status: Orderedferrous sulfate 325 mg oral enteric coated tablet 325 mg, 1, tablet, By Mouth, Daily, # 90 tablet, Refills 1, Tot. Refills 1, Maintenance, 10/31/20 16:01:00 EST, [id number], cm, 10/14/20 10:13:00 EST, Height, 112, kg, 10/14/20 10:13:00 EST, Dry Weight Start Date: 10/31/20 Status: OrderedFlonase 50 mcg/inh nasal spray 1 sprays, Nares, Both, 2 times a day, # 16 Gm, 5 Refills, Maintenance, 07/04/20 9:01:00 EDT, [place], [facility]/pharmacy #[id number], 1 sprays Nares, Both 2 times a day, 163, cm, 05/28/20 11:24:00 EDT, Height, 102.3, kg, 06/22/20 23:55:00 EDT, Dry Weight Start Date: 07/04/20 Status: Orderedlithium 300 mg oral tablet 1 tablet = 300 mg, By Mouth, Daily in AM, # 30 tablet, 0 Refills, Maintenance, 01/01/20 16:16:00 EDT, Tablet, [facility]/pharmacy #[id number], 163, cm, 01/01/20 14:39:00 EDT, Height, 86.5, kg, 12/19/19 19:14:00 EDT, Dry Weight Start Date: 01/01/20 Stop Date: 01/29/20 Status: Orderedlithium 600 mg oral capsule 1 capsule = 600 mg, By Mouth, Daily at bedtime, # 30 capsule, 0 Refills, Maintenance, 01/01/20 16:16:00 EDT, Capsule, [facility]/pharmacy #[id number], 163, cm, 01/01/20 14:39:00 [...] Refills, Maintenance, 07/11/20 15:38:00 EDT, REC Powder, [facility]/pharmacy #[id number], 17 Gm By Mouth Daily,Instr:dissolve in water before taking, 163, cm, 05/28/20 11:24:00 EDT, Height, 102... Start Date: 07/11/20 Status: Orderedomeprazole 20 mg oral enteric coated capsule 1 capsule = 20 mg, By Mouth, Daily, # 30 capsule, 5 Refills, Maintenance, 07/07/20 11:44:00 EDT, EC Capsule, [facility]/pharmacy #[id number], 163, cm, 05/28/20 11:24:00 EDT, Height, 102.3, kg, 06/22/20 23:55:00 EDT, Dry Weight Start Date: 07/07/20 Status: Orderedperphenazine 16 mg oral tablet 16 mg, 1, tablet, By Mouth, 2 times a day, # 60 tablet, Refills 0, Tot. Refills 0, Maintenance, 01/01/20 16:18:00 EDT, Route to Pharmacy Electronically, [facility]/pharmacy #[id number], 163, cm, 01/01/20 14:39:00 [...] 01/02/20 4:30:00 EDT, Route to Pharmacy Electronically, [facility]/pharmacy... Start Date: 01/02/20 Status: Orderedsimethicone 125 mg oral capsule See Instructions, TAKE 1 CAPSULE BY MOUTH THREE TIMES A DAY AFTER MEALS AND AT BEDTIME NEEDED, # 48 capsule, 11 Refills, Maintenance, 10/21/20 9:08:00 EST, [facility]/pharmacy #[id number], 164, cm, 10/14/20 10:13:00 EST, Height, 112, kg, 10/14/20 10:13:00 EST,... Start Date: 10/21/20 Status: OrderedTums 500 mg oral tablet, chewable 1,000 mg, 2, tablet, Chew, Every 6 hours, PRN, # 120 tablet, Refills 11, Tot. Refills 11, Maintenance, for indigestion, 08/06/19 12:12:32 EST, Route to Pharmacy Electronically, [facility]/pharmacy #[id number] Start Date: 08/06/19 Stop Date: 07/01/20 Status: OrderedZyrTEC 10 mg oral tablet 1 tablet = 10 mg, By Mouth, Daily, # 30 tablet, 5 Refills, Maintenance, 07/22/20 15:24:00 EDT, Tablet, [facility]/pharmacy #[id number], 163, cm, 05/28/20 11:24:00 [...]
--- OUTSIDE RECORDS SUMMARY | 2022-06-29 21:27 | XMS_ITS | Continuity of Care Document ---
:1990 Author Organization [facility] Address [address] [place] [id number]- Care Team Providers Name Role Phone Fatoumata Stokes DO Primary Care Physician [facility] Date[facility]s): 03/03/21 - 03/04/[address] [address]- Encounter Diagnosis Schizoaffective disorder (Final) - 03/03/21 Discharge Disposition: A-D/C Home Attending Physician: Mei James DO Admitting Physician: Mei James DO Referring Physician: Not on Staff, Referring [...] 11/22/19 13:30:00 EST, Route to Pharmacy Electronically, [facility]/pharmacy #[id number], 159, cm, 11/19/19 8:17:00 EST, Height, 89.7, kg, 11/14/19 9... Start Date: 11/22/19 Status: OrderedBenefiber oral powder for reconstitution 5 mL, By Mouth, 2 times a day, PRN as needed for constipation, dissolve in 4 to 8 oz of beverage or soft food- hot or cold, # 155 Gm, 0 Refills, Maintenance, 01/05/21 11:50:00 EDT, REC Powder, [facility]/pharmacy #[id number], Partial fill upon patient request if t... Start Date: 01/05/21 Status: Orderedbenztropine 1 mg oral tablet 1 mg, 1, tablet, By Mouth, 2 times a day, # 60 tablet, Refills 0, Tot. Refills 0, Maintenance, 01/01/20 16:15:00 EDT, Route to Pharmacy Electronically, [facility]/pharmacy #[id number], 163, cm, 01/01/20 14:39:00 EDT, Height, 86.5, kg, 12/19/19 19:14:00 EDT, Dry We... Start Date: 01/01/20 Stop Date: 01/31/20 Status: Orderedcetirizine 10 mg oral tablet 1 tablet, By Mouth, Daily, # 30 tablet, 5 Refills, Maintenance, 02/16/21 14:03:00 EDT, [id number], 164, cm, 10/14/20 10:13:00 EST, Height, 112, kg, 10/14/20 10:13:00 EST, Dry Weight Start Date: 02/16/21 Status: OrderedDepo-Provera Contraceptive 150 mg/mL intramuscular suspension 1 mL = 150 mg, Intramuscular, Every 3 months, # 1 mL, 3 Refills, Maintenance, 08/26/20 9:54:00 EST, Suspension, [facility], 163, cm, 05/28/20 11:24:00 EDT, Height, 100, kg, 08/04/20 11:40:00 EST, Dry Weight Start Date: 08/26/20 Status: Ordereddocusate sodium 100 mg oral capsule 1 capsule, By Mouth, 2 times a day, # 60 capsule, 5 Refills, Maintenance, 01/12/21 20:05:00 EDT, [id number], cm, 10/14/20 10:13:00 EST, Height, 112, kg, 10/14/20 10:13:00 EST, Dry Weight Start Date: 01/12/21 Status: OrderedEstradiol Patch 0.1 mg/24 hours twice weekly transdermal film, extended release See Instructions, APPLY 1 PATCH TOPICALLY EVERY TUESDAY & TUESDAY, # 8 patch, 2 Refills, 12/03/20 8:15:00 EST, [facility]/pharmacy #[id number], 28, APPLY 1 PATCH TOPICALLY EVERY TUESDAY & TUESDAY, 164, cm, 10/14/20 10:13:00 EST, Height, 112, kg, 10/14/20 10:13:00... Start Date: 12/03/20 Status: Orderedferrous sulfate 325 mg oral enteric coated tablet 325 mg, 1, tablet, By Mouth, Daily, # 90 tablet, Refills 1, Tot. Refills 1, Maintenance, 10/31/20 16:01:00 EST, Route to Pharmacy Electronically, [facility]/pharmacy #[id number], 164, cm, 10/14/20 10:13:00 EST, Height, 112, kg, 10/14/20 10:13:00 EST, Dry Weight Start Date: 10/31/20 Status: OrderedFlonase 50 mcg/inh nasal spray 1 sprays, Nares, Both, 2 times a day, # 16 Gm, 5 Refills, Maintenance, 07/04/20 9:01:00 EDT, [place], [facility]/pharmacy #[id number], 1 sprays Nares, Both 2 times a day, 163, cm, 05/28/20 11:24:00 EDT, Height, 102.3, kg, 06/22/20 23:55:00 EDT, Dry Weight Start Date: 07/04/20 Status: Orderedlithium 300 mg oral tablet 1 tablet = 300 mg, By Mouth, Daily in AM, # 30 tablet, 0 Refills, Maintenance, 01/01/20 16:16:00 EDT, Tablet, [facility]/pharmacy #[id number], 163, cm, 01/01/20 14:39:00 EDT, Height, 86.5, kg, 12/19/19 19:14:00 EDT, Dry Weight Start Date: 01/01/20 Stop Date: 01/29/20 Status: Orderedlithium 600 mg oral capsule 1 capsule = 600 mg, By Mouth, Daily at bedtime, # 30 capsule, 0 Refills, Maintenance, 01/01/20 16:16:00 EDT, Capsule, [facility]/pharmacy #[id number], 163, cm, 01/01/20 14:39:00 EDT, Height, 86.5, kg, 12/19/19 19:14:00 EDT, Dry Weight Start Date: 01/01/20 Stop Date: 03/01/20 Status: OrderedMiraLax oral powder for reconstitution = 17 Gm, By Mouth, Daily, dissolve in water before taking, # 255 Gm, 0 Refills, Maintenance, 07/11/20 15:38:00 EDT, REC Powder, [facility]/pharmacy #[id number], 17 Gm By Mouth Daily,Instr:dissolve in water before taking, 163, cm, 05/28/20 11:24:00 EDT, Height, 102... Start Date: 07/11/20 Status: Orderedomeprazole 20 mg oral enteric coated capsule 1 capsule = 20 mg, By Mouth, Daily, # 90 capsule, 0 Refills, Maintenance, 02/19/21 15:58:00 EDT, EC Capsule, [facility]/pharmacy #[id number], 164, cm, 10/14/20 10:13:00 EST, Height, 112, kg, 10/14/20 10:13:00 EST, Dry Weight Start Date: 02/19/21 Stop Date: 05/20/21 Status: Orderedperphenazine 16 mg oral tablet 16 mg, 1, tablet, By Mouth, 2 times a day, # 60 tablet, Refills 0, Tot. Refills 0, Maintenance, 01/01/20 16:18:00 EDT, [id number], cm, 01/01/20 14:39:00 EDT, Height, [...] [facility] Start Date: 01/02/20 Status: OrderedSenna 8.6 mg oral tablet 1, tablet, By Mouth, Daily at bedtime, PRN, # 60 tablet, Refills 1, Tot. Refills 0, Acute, NEEDEDFOR CONSTIPATION, 02/19/21 17:23:00 EDT, Route to Pharmacy Electronically, [facility] [id number], 164, cm,10/14/20 10:13:00 EST, Height, 112, kg, 10/14/20... Start Date: 02/19/21 Status: Orderedsimethicone 125 mg oral capsule See Instructions, TAKE 1 CAPSULE BY MOUTH THREE TIMES A DAY AFTER MEALS AND AT BEDTIME NEEDED, # 48 capsule, 11 Refills, Maintenance, 10/21/20 9:08:00 EST, [facility]/pharmacy #[id number], 164, cm, 10/14/20 [...] Exam Date Time Procedure Performing Provider Status 03/03/21 6:20 PM Ankle Min 3 Views Right Mary Alfonso (Verified) Notes:(Ankle Min 3 Views Right) Reason For Exam: PainRESULT: Ankle Min 3 Views Right Ankle Min 3 Views Right Reason: Pain; Clinical Question(s): Fracture. COMPARISON: None. FINDINGS: No evidence of acute or healing fracture or bone lesion. Intact ankle mortise and talar dome. No arthritic changes. Normal soft tissues. IMPRESSION: Normal. WSN: [id number] Ordering Physician: Chintan Townsend Dictated By: Tian Rowland MD Dictated Date/Time: 03/03/21 6:24 pm Reviewed By: Tian Rowland MD Signed By: Tian Rowland MD Signed Date/Time: 03/03/21 6:24 pm Transcribed By: TOMMY Transcribed Date/Time: 03/03/21 6:24 pm Vital Signs Most recent to oldest [Reference 1 2 3 Range]: Oxygen Saturation [94-100 %] 100 % 100 % 100 % (03/04/21 2:35 PM) (03/04/21 8:26 AM) (03/04/21 3:50 A M) Pulse Rate [55-90 bpm] 91 bpm 80 bpm 73 bpm *H* (03/04/21 8:26 AM) (03/04/21 3:50 AM ) (03/04/21 2:35 PM) Blood Pressure [90-138/55-84 mm 117/85 mm Hg 121/64 mm Hg 109/59 mm Hg Hg] (03/04/21 2:35 PM) (03/04/21 8:26 AM) (03/04/21 3:50 A M) Respiratory Rate [16-30 br/min] 20 br/min 17 br/min 20 br/min (03/04/21 2:35 PM) (03/04/21 8:26 AM) (03/04/21 3:50 A M) Temperature [96.8-100.4 DegF] 97.8 DegF 98.5 DegF (03/04/21 8:26 AM) (03/03/21 4:26 PM) Mode of Delivery (Oxygen) Room air Room air Room a ir (03/04/21 2:35 PM) (03/04/21 8:26 AM) (03/04/21 3:50 A M) Blood pressure sites Arm, left (03/04/21 2:35 PM) Temperature Route Oral (03/03/21 4:26 PM) Social History Social History Type Response Tobacco Use: 4 or less cigarettes(le ss than 1/4 pack)/day in last 30 days. Sex Female
--- OUTSIDE RECORDS SUMMARY | 2022-06-29 21:27 | XMS_ITS | Continuity of Care Document ---
:1990 Author Organization [facility] Address [address] [place] [address]- Care Team Providers Name Role Phone Fatoumata Stokes DO Primary Care Physician [facility] Date[facility]s): 04/09/20 - 05/09/20 [facility] [address] [place] [address]- [facility] Allergies, Adverse Reactions, Alerts Substance [...] 11/22/19 13:30:00 EST, Route to Pharmacy Electronically, [facility]/pharmacy #[id number], 159, cm, 11/19/19 8:17:00 EST, Height, 89.7, kg, 11/14/19 9... Start Date: 11/22/19 Status: OrderedAquaphor Healing topical ointment See Instructions, APPLY TO NIPPLE DAILY NEEDED FOR DISCOMFORT, # 50 Gm, 0 Refills, Maintenance, [facility] STORE [id number], 7, APPLY TO NIPPLE DAILY NEEDED FOR DISCOMFORT, 159, cm, 12/10/19 11:02:00 EDT, Height, 86.7, kg, 12/10/19 11:02:00 EDT, Dry Weight Start Date: 12/10/19 Status: Orderedbenztropine 1 mg oral tablet 1 mg, 1, tablet, By Mouth, 2 times a day, # 60 tablet, Refills 0, Tot. Refills 0, Maintenance, 01/01/20 16:15:00 EDT, Route to Pharmacy Electronically, [facility]/pharmacy #[id number], 163, cm, 01/01/20 14:39:00 EDT, Height, 86.5, kg, 12/19/19 19:14:00 EDT, Dry We... Start Date: 01/01/20 Stop Date: 01/31/20 Status: OrderedDepo-Provera Contraceptive 150 mg/mL intramuscular suspension 1 mL = 150 mg, Intramuscular, Every 3 months, # 1 mL, 3 Refills, Maintenance, 12/10/19 11:23:00 EDT,Suspension, [facility], 159, cm, 12/10/19 11:02:00 EDT, Height, 86.7, kg, 12/10/19 11:02:00 EDT, Dry Weight Start Date: 12/10/19 Status: Ordereddocusate sodium 100 mg oral capsule 100 mg, 1, capsule, By Mouth, 2 times a day, # 60 capsule, Refills 11, Tot. Refills 11, Maintenance,01/08/20 11:07:00 EDT, Route to Pharmacy Electronically, [facility]/pharmacy #[id number], 163, cm, 01/02/20 7:50:00 EDT, Height, 86.5, kg, 12/19/19 19:14:00 EDT, D... Start Date: 01/08/20 Stop Date: 01/02/21 Status: Orderedestradiol 0.1 mg/24 hours twice weekly transdermal film, extended release 1 patch, Topically, Every Tuesday and , # 8 patch, 6 Refills, Maintenance, 12/10/19 11:19:00 EDT, [facility]/pharmacy #[id number], 159, cm, 12/10/19 11:02:00 EDT, Height, 86.7, kg, 12/10/19 11:02:00 EDT, DryWeight Start Date: 12/10/19 Status: OrderedEucerin Plus topical lotion 1 application, Topically, 2 times a day, PRN for dry skin, May apply to affected area every 6 hours as needed, up to 2 times/day, # 180 mL, 11 Refills, Maintenance, 08/06/19 12:15:04 EST, Lotion, [facility]/pharmacy #[id number] Start Date: 08/06/19 Status: Orderedferrous sulfate 325 mg oral enteric coated tablet 325 mg, 1, tablet, By Mouth, Daily, # 30 tablet, Refills 11, Tot. Refills 11, Maintenance, 01/08/20 11:07:00 EDT, Route to Pharmacy Electronically, [facility]/pharmacy #[id number], 163, cm, 01/02/20 7:50:00 EDT, Height, 86.5, kg, 12/19/19 19:14:00 EDT, Dry Weight Start Date: 01/08/20 Status: OrderedFlonase 50 mcg/inh nasal spray 1 sprays, Nares, Both, 2 times a day, # 16 Gm, 3 Refills, Maintenance, 04/03/20 15:37:00 EDT, [place],[facility]/pharmacy #[id number], 1 sprays Nares, Both 2 times a day, 163, cm, 04/03/20 14:59:00 EDT, Height, 88.9, kg, 04/03/20 14:59:00 EDT, Dry Weight Start Date: 04/03/20 Status: Orderedlithium 300 mg oral tablet 1 tablet = 300 mg, By Mouth, Daily in AM, # 30 tablet, 0 Refills, Maintenance, 01/01/20 16:16:00 EDT, Tablet, [facility]/pharmacy #[id number], 163, cm, 01/01/20 14:39:00 EDT, Height, 86.5, kg, 12/19/19 19:14:00 EDT, Dry Weight Start Date: 01/01/20 Stop Date: 01/29/20 Status: Orderedlithium 600 mg oral capsule 1 capsule = 600 mg, By Mouth, Daily at bedtime, # 30 capsule, 0 Refills, Maintenance, 01/01/20 16:16:00 EDT, Capsule, [facility]/pharmacy #[id number], 163, cm, 01/01/20 14:39:00 [...] Refills, Maintenance, 01/08/20 11:07:00 EDT, EC Capsule, [facility]/pharmacy #[id number], 163, cm, 01/02/20 7:50:00 EDT, Height, 86.5, kg, 12/19/19 19:14:00 EDT, Dry Weight Start Date: 01/08/20 Status: Orderedperphenazine 16 mg oral tablet 16 mg, 1, tablet, By Mouth, 2 times a day, # 60 tablet, Refills 0, Tot. Refills 0, Maintenance, 01/01/20 16:18:00 EDT, Route to Pharmacy Electronically, [facility]/pharmacy #[id number], 163, cm, 01/01/20 14:39:00 [...] 01/02/20 4:30:00 EDT, Route to Pharmacy Electronically, [facility]/pharmacy... Start Date: 01/02/20 Status: Orderedsimethicone 125 mg oral capsule 1 capsule = 125 mg, By Mouth, 3 times a day after meals and bedtime, PRN Other, prn gas, # 48 capsule, 2 Refills, Maintenance, 04/03/20 15:26:00 EDT, Capsule, [facility]/pharmacy #[id number], 163, cm, 04/03/20 14:59:00 EDT, Height, 88.9, kg, 04/03/20 14:59:00 EDT,... Start Date: 04/03/20 Status: OrderedTums 500 mg oral tablet, chewable 1,000 mg, 2, tablet, Chew, Every 6 hours, PRN, # 120 tablet, Refills 11, Tot. Refills 11, Maintenance, for indigestion, 08/06/19 12:12:32 EST, Route to Pharmacy Electronically, [facility]/pharmacy #[id number] Start Date: 08/06/19 Stop [...]
--- OUTSIDE RECORDS SUMMARY | 2022-06-29 21:27 | XMS_ITS | Continuity of Care Document ---
:1990 Author Organization [facility] Address [address] [place] [address], [address] [place] [id number]- Care Team Providers Name Role Phone Fatoumata Stokes DO Primary Care Physician [facility] Date(s): 09/07/21 - 10/07/21 [facility] [address], [address] [place] [id number] Allergies, Adverse Reactions, Alerts [...] 7:42:00 EDT, Route to Pharmacy Electronically, [facility]/pharmacy #[id number], 164, cm, 04/07/21 15:35:00 EDT, Height, 112, kg, 10/14/20 10... Start Date: 05/28/21 Status: OrderedBenefiber oral powder for reconstitution 5 mL, By Mouth, 2 times a day, PRN as needed for constipation, dissolve in 4 to 8 oz of beverage or soft food- hot or cold, # 155 Gm, 11 Refills, Maintenance, 03/05/21 15:58:00 EDT, REC Powder, [facility]/pharmacy #[id number], Partial fill upon patient [...] # 30 tablet, 2 Refills, [id number], 163, cm, 09/24/21 16:23:00 EST, Height, 112, kg, 10/14/20 10:13:00 EST, Dry Weight Start Date: 09/28/21 Status: Orderedcetirizine 10 mg oral tablet 1 tablet, By Mouth, Daily, # 30 tablet, 2 Refills, [id number], 164, cm, 05/28/21 13:07:00 EDT, Height, 112, kg, 10/14/20 10:13:00 EST, Dry Weight Start Date: 07/08/21 Status: Ordereddocusate sodium 100 mg oral capsule 1 capsule, By Mouth, 2 times a day, # 60 capsule, 5 Refills, Maintenance, 07/27/21 14:02:00 EDT, [facility]/pharmacy #[id number], 164, cm, 05/28/21 13:07:00 EDT, Height, 112, kg, 10/14/20 10:13:00 EST, Dry Weight Start Date: 07/27/21 Status: OrderedEstradiol Patch 0.1 mg/24 hours twice weekly transdermal film, extended release See Instructions, APPLY 1 PATCH TOPICALLY EVERY TUESDAY & TUESDAY, # 8 patch, 12 Refills, 03/13/21 13:04:00 EDT, [facility]/pharmacy #[id number], 28, APPLY 1 PATCH TOPICALLY EVERY TUESDAY & TUESDAY, 164, cm, 03/13/21 9:51:00 EDT, Height, 112, kg, 10/14/20 10:13:00... Start Date: 03/13/21 Status: Orderedferrous sulfate 325 mg oral enteric coated tablet 1, tablet, By Mouth, Daily, # 90 tablet, Refills 1, Route to Pharmacy Electronically, [id number], 164, cm, 05/28/21 13:07:00 EDT, Height, 112, kg, 10/14/20 10:13:00 EST, Dry Weight Start Date: 07/08/21 Status: Orderedfluticasone 50 mcg/inh nasal spray See Instructions, USE 1 SPRAY IN EACH NOSTRIL TWICE A DAY, # 16 mL, 5 Refills, Maintenance, [id number], 30, USE 1 SPRAY IN EACH NOSTRIL TWICE A DAY, 164, cm, 10/14/20 10:13:00 EST, Height, 112, kg, 10/14/20 10:13:00 EST, Dry Weight Start Date: 03/06/21 Status: Orderedlithium 300 mg oral tablet 1 tablet = 300 mg, By Mouth, Daily in AM, # 30 tablet, 0 Refills, Maintenance, 01/01/20 16:16:00 EDT, Tablet, [facility]/pharmacy #[id number], 163, [...] Refills, Soft Stop, 03/13/21 13:05:00 EDT, [facility]/pharmacy #[id number], 164, cm, 03/13/21 9:51:00 EDT, Height, 112, kg, 10/14/20 10:13:00 EST, Dry Weight Start Date: 03/13/21 Status: OrderedmedroxyPROGESTERone 150 mg/mL intramuscular suspension See Instructions, INJECT 1 ML INTRAMUSCULARLY EVERY 3 MONTHS, # 1 mL, 3 Refills, [facility], 164, cm, 05/28/21 13:07:00 EDT, Height, 112, kg, 10/14/20 10:13:00 EST, Dry Weight Start Date: 09/07/21 Status: OrderedMiraLax oral powder for reconstitution = 17 Gm, By Mouth, Daily, dissolve in water before taking, # 255 Gm, 0 Refills, Maintenance, 07/11/20 15:38:00 EDT, REC Powder, [facility]/pharmacy #[id number], 17 Gm By Mouth Daily,Instr:dissolve in water before taking, 163, cm, 05/28/20 11:24:00 EDT, Height, 102... Start Date: 07/11/20 Status: Orderedomeprazole 20 mg oral enteric coated capsule 1 capsule, By Mouth, Daily, # 90 capsule, 0 Refills, [facility] [id number], 164, cm, 05/28/21 13:07:00 EDT, Height, 112, [...] [facility]... Start Date: 01/02/20 Status: OrderedSenna-Time 8.6 mg oral tablet 1 tablet, By Mouth, Daily at bedtime, PRN NEEDED FOR CONSTIPATION, # 60 tablet, 1 Refills, [id number], 164, cm, 05/28/21 13:07:00 EDT, Height, 112, kg, 10/14/20 10:13:00 EST, Dry Weight Start Date: 08/31/21 Status: Orderedsimethicone 125 mg oral capsule See Instructions, TAKE 1 CAPSULE BY MOUTH THREE TIMES A DAY AFTER MEALS AND AT BEDTIME NEEDED, # 48 capsule, 11 Refills, [id number], 164, cm, 04/07/21 15:35:00 EDT, Height, 112, [...]
--- OUTSIDE RECORDS SUMMARY | 2022-06-29 21:27 | XMS_ITS | Continuity of Care Document ---
:1990 Author Organization [facility] Address [address] [place] [address], [address] [place] [id number]- Care Team Providers Name Role Phone Fatoumata Stokes DO Primary Care Physician [place] [facility] [place] 04/07[facility]21 - 04/14/21 [facility] [employer] [address], [address] [place] [id number]- Attending Physician: Brandin Avelar MD Admitting Physician: Shannon Castrejon MD Referring Physician: Fatoumata [...] 13:30:00 EST, Route to Pharmacy Electronically, [facility]/pharmacy #[id number], 159, cm, 11/19/19 8:17:00 EST, Height, 89.7, kg, 11/14/19 9... Start Date: 11/22/19 Status: OrderedBenefiber oral powder for reconstitution 5 mL, By Mouth, 2 times a day, PRN as needed for constipation, dissolve in 4 to 8 oz of beverage or soft food- hot or cold, # 155 Gm, 11 Refills, Maintenance, 03/05/21 15:58:00 EDT, REC Powder, [facility]/pharmacy #[id number], Partial fill upon patient request if... Start Date: 03/05/21 Status: Orderedbenztropine 1 mg oral tablet 1 mg, 1, tablet, By Mouth, 2 times a day, # 60 tablet, Refills 0, Tot. Refills 0, Maintenance, 01/01/20 16:15:00 EDT, Route to Pharmacy Electronically, [facility]/pharmacy #[id number], 163, cm, 01/01/20 14:39:00 EDT, Height, 86.5, kg, 12/19/19 19:14:00 EDT, Dry We... Start Date: 01/01/20 Stop Date: 01/31/20 Status: Orderedcetirizine 10 mg oral tablet 1 tablet, By Mouth, Daily, # 30 tablet, 5 Refills, Maintenance, 02/16/21 14:03:00 EDT, [id number], 164, cm, 10/14/20 10:13:00 EST, Height, 112, kg, 10/14/20 10:13:00 EST, Dry Weight Start Date: 02/16/21 Status: Ordereddocusate sodium 100 mg oral capsule 1 capsule, By Mouth, 2 times a day, # 60 capsule, 5 Refills, Maintenance, 01/12/21 20:05:00 EDT[id number], cm, 10/14/20 10:13:00 EST, Height, 112, kg, 10/14/20 10:13:00 EST, Dry Weight Start Date: 01/12/21 Status: OrderedEstradiol Patch 0.1 mg/24 hours twice weekly transdermal film, extended release See Instructions, APPLY 1 PATCH TOPICALLY EVERY TUESDAY & TUESDAY, # 8 patch, 12 Refills, 03/13/21 13:04:00 EDT, [facility]/pharmacy #[id number], 28, APPLY 1 PATCH TOPICALLY EVERY TUESDAY & TUESDAY, 164, cm, 03/13/21 9:51:00 EDT, Height, 112, kg, 10/14/20 10:13:00... Start Date: 03/13/21 Status: Orderedferrous sulfate 325 mg oral enteric coated tablet 325 mg, 1, tablet, By Mouth, Daily, # 90 tablet, Refills 1, Tot. Refills 1, Maintenance, 10/31/20 16:01:00 EST, Route to Pharmacy Electronically, [facility]/pharmacy #[id number], 164, cm, 10/14/20 10:13:00 EST, Height, 112, kg, 10/14/20 10:13:00 EST, Dry Weight Start Date: 10/31/20 Status: Orderedfluticasone 50 mcg/inh nasal spray See Instructions, USE 1 SPRAY IN EACH NOSTRIL TWICE A DAY, # 16 mL, 5 Refills, Maintenance, [id number], 30, USE 1 SPRAY IN EACH NOSTRIL TWICE A DAY, 164, cm, 10/14/20 10:13:00 EST, Height, 112, kg, 10/14/20 10:13:00 EST, Dry Weight Start Date: 03/06/21 Status: Orderedlithium 300 mg oral tablet 1 tablet = 300 mg, By Mouth, Daily in AM, # 30 tablet, 0 Refills, Maintenance, 01/01/20 16:16:00 EDT, Tablet, [facility]/pharmacy #[id number], 163, cm, 01/01/20 14:39:00 EDT, Height, 86.5, kg, 12/19/19 19:14:00 EDT, Dry Weight Start Date: 01/01/20 Stop Date: 01/29/20 Status: Orderedlithium 600 mg oral capsule 1 capsule = 600 mg, By Mouth, Daily at bedtime, # 30 capsule, 0 Refills, Maintenance, 01/01/20 16:16:00 EDT, Capsule, [facility]/pharmacy #[id number], 163, cm, 01/01/20 14:39:00 EDT, Height, 86.5, kg, 12/19/19 19:14:00 EDT, Dry Weight Start Date: 01/01/20 Stop Date: 03/01/20 Status: OrderedLotrisone 0.05%-1% cream 1 application, Topically, 2 times a day, for 14 days, # 45 Gm, 0 Refills, Acute 04/22/21 11:49:00 EDT, 04/08/21 11:49:00 EDT, Cream, [facility]/pharmacy #[id number], Partial fill upon patient request if the prescription is for a schedule II opioid drug., 1 applica... Start Date: 04/08/21 Stop Date: 04/22/21 Status: OrderedmedroxyPROGESTERone 150 mg/mL intramuscular suspension 1 mL, Intramuscular, Every 3 months, # 1 mL, 3 Refills, Soft Stop, 03/13/21 13:05:00 EDT, [facility]/pharmacy #[id number], 164, cm, 03/13/21 9:51:00 EDT, Height, 112, kg, 10/14/20 10:13:00 EST, Dry Weight Start Date: 03/13/21 Status: OrderedMiraLax oral powder for reconstitution = 17 Gm, By Mouth, Daily, dissolve in water before taking, # 255 Gm, 0 Refills, Maintenance, 07/11/20 15:38:00 EDT, REC Powder, [facility]/pharmacy #[id number], 17 Gm By Mouth Daily,Instr:dissolve in water before taking, 163, cm, 05/28/20 11:24:00 EDT, Height, 102... Start Date: 07/11/20 Status: Orderedomeprazole 20 mg oral enteric coated capsule 1 capsule = 20 mg, By Mouth, Daily, # 90 capsule, 0 Refills, Maintenance, 02/19/21 15:58:00 EDT, EC Capsule, [facility]/pharmacy #[id number], 164, cm, 10/14/20 10:13:00 EST, Height, 112, kg, 10/14/20 10:13:00 EST, Dry Weight Start Date: 02/19/21 Stop Date: 05/20/21 Status: Orderedperphenazine 16 mg oral tablet 16 mg, 1, tablet, By Mouth, 2 times a day, # 60 tablet, Refills 0, Tot. Refills 0, Maintenance, 01/01/20 16:18:00 EDT, Route to Pharmacy Electronically, [facility]/pharmacy #[id number], 163, cm, 01/01/20 14:39:00 [...] 4:30:00 EDT, Route to Pharmacy Electronically, [facility]/pharmacy... Start Date: 01/02/20 Status: OrderedSenna 8.6 mg oral tablet 1, tablet, By Mouth, Daily at bedtime, PRN, # 60 tablet, Refills 1, Tot. Refills 0, Acute, NEEDEDFOR CONSTIPATION, 02/19/21 17:23:00 EDT, Route to Pharmacy Electronically, [facility] [id number], 164, cm,10/14/20 10:13:00 EST, Height, 112, kg, 10/14/20... Start Date: 02/19/21 Status: Orderedsimethicone 125 mg oral capsule See Instructions, TAKE 1 CAPSULE BY MOUTH THREE TIMES A DAY AFTER MEALS AND AT BEDTIME NEEDED, # 48 capsule, 11 Refills, Maintenance, 10/21/20 9:08:00 EST, [facility]/pharmacy #[id number], 164, cm, 10/14/20 10:13:00 EST, Height, [...] oldest [Reference Range]: 1 Height 164 cm (04/07/21 3:35 PM) Weight 97.72 kg (04/07/21 3:35 PM) Body Mass Index [18.5-24.99] 36.33 *>HHI* (04/07/21 3:35 PM) Blood Pressure [90-138/55-84 mm Hg] 110/80 mm Hg (04/07/21 3:35 PM) Blood pressure sites Arm, right (04/07/21 3:35 PM) Weight Obtained Via Standing scale (04/07/21 3:35 PM) Social History Social History Type Response Tobacco Use: 4 or less cigarettes(le ss than 1/4 pack)/day in last 30 days. Sex Female
--- OUTSIDE RECORDS SUMMARY | 2022-06-29 21:27 | XMS_ITS | Continuity of Care Document ---
:1990 Author Organization [facility] Address [address] [place] [address], [address] [place] [id number]- Care Team Providers Name Role Phone Fatoumata Stokes DO Primary Care Physician [facility] Date[facility]s): 03/13/21 - 03/20/21 [facility] [address], [address] [place] [address]- Attending Physician: Ashley Hallman MD Referring Physician: Fatoumata Sotkes DO Allergies, Adverse Reactions, Alerts Substance Reaction [...] 11/22/19 13:30:00 EST, Route to Pharmacy Electronically, [facility]/pharmacy #[id number], 159, cm, 11/19/19 8:17:00 EST, Height, 89.7, kg, 11/14/19 9... Start Date: 11/22/19 Status: OrderedBenefiber oral powder for reconstitution 5 mL, By Mouth, 2 times a day, PRN as needed for constipation, dissolve in 4 to 8 oz of beverage or soft food- hot or cold, # 155 Gm, 11 Refills, Maintenance, 03/05/21 15:58:00 EDT, REC Powder, [facility]/pharmacy #[id number], Partial fill upon patient request if... Start Date: 03/05/21 Status: Orderedbenztropine 1 mg oral tablet 1 mg, 1, tablet, By Mouth, 2 times a day, # 60 tablet, Refills 0, Tot. Refills 0, Maintenance, 01/01/20 16:15:00 EDT, Route to Pharmacy Electronically, [facility]/pharmacy #[id number], 163, cm, 01/01/20 14:39:00 EDT, Height, 86.5, kg, 12/19/19 19:14:00 EDT, Dry We... Start Date: 01/01/20 Stop Date: 01/31/20 Status: Orderedcetirizine 10 mg oral tablet 1 tablet, By Mouth, Daily, # 30 tablet, 5 Refills, Maintenance, 02/16/21 14:03:00 EDT, [id number], 164, cm, 10/14/20 10:13:00 EST, Height, 112, kg, 10/14/20 10:13:00 EST, Dry Weight Start Date: 02/16/21 Status: Ordereddocusate sodium 100 mg oral capsule 1 capsule, By Mouth, 2 times a day, # 60 capsule, 5 Refills, Maintenance, 01/12/21 20:05:00 EDT, [id number], 164, cm, 10/14/20 10:13:00 EST, Height, 112, kg, 10/14/20 10:13:00 EST, Dry Weight Start Date: 01/12/21 Status: OrderedEstradiol Patch 0.1 mg/24 hours twice weekly transdermal film, extended release See Instructions, APPLY 1 PATCH TOPICALLY EVERY TUESDAY & TUESDAY, # 8 patch, 12 Refills, 03/13/21 13:04:00 EDT, [facility]/pharmacy #[id number], 28, APPLY 1 PATCH TOPICALLY EVERY TUESDAY & TUESDAY, 164, cm, 03/13/21 9:51:00 EDT, Height, 112, kg, 10/14/20 10:13:00... Start Date: 03/13/21 Status: Orderedferrous sulfate 325 mg oral enteric coated tablet 325 mg, 1, tablet, By Mouth, Daily, # 90 tablet, Refills 1, Tot. Refills 1, Maintenance, 10/31/20 16:01:00 EST, Route to Pharmacy Electronically, [facility]/pharmacy #[id number], 164, cm, 10/14/20 10:13:00 EST, Height, 112, kg, 10/14/20 10:13:00 EST, Dry Weight Start Date: 2/5/21 Status: Orderedfluticasone 50 mcg/inh nasal spray See Instructions, USE 1 SPRAY IN EACH NOSTRIL TWICE A DAY, # 16 mL, 5 Refills, Maintenance, [facility] [address], 30, USE 1 SPRAY IN EACH NOSTRIL TWICE A DAY, 164, cm, 10/14/20 10:13:00 EST, Height, 112, kg, 10/14/20 10:13:00 EST, Dry Weight Start Date: 03/06/21 Status: Orderedlithium 300 mg oral tablet 1 tablet = 300 mg, By Mouth, Daily in AM, # 30 tablet, 0 Refills, Maintenance, 01/01/20 16:16:00 EDT, Tablet, [facility]/pharmacy #[id number], 163, cm, 01/01/20 14:39:00 EDT, Height, 86.5, kg, 12/19/19 19:14:00 EDT, Dry Weight Start Date: 01/01/20 Stop Date: 01/29/20 Status: Orderedlithium 600 mg oral capsule 1 capsule = 600 mg, By Mouth, Daily at bedtime, # 30 capsule, 0 Refills, Maintenance, 01/01/20 16:16:00 EDT, Capsule, [facility]/pharmacy #[id number], 163, cm, 01/01/20 14:39:00 EDT, Height, 86.5, kg, 12/19/19 19:14:00 EDT, Dry Weight Start Date: 01/01/20 Stop Date: 03/01/20 Status: OrderedmedroxyPROGESTERone 150 mg/mL intramuscular suspension 1 mL, Intramuscular, Every 3 months, # 1 mL, 3 Refills, Soft Stop, 03/13/21 13:05:00 EDT, [facility]/pharmacy #[id number], 164, cm, 03/13/21 9:51:00 EDT, Height, 112, kg, 10/14/20 10:13:00 EST, Dry Weight Start Date: 03/13/21 Status: OrderedMiraLax oral powder for reconstitution = 17 Gm, By Mouth, Daily, dissolve in water before taking, # 255 Gm, 0 Refills, Maintenance, 07/11/20 15:38:00 EDT, REC Powder, [facility]/pharmacy #[id number], 17 Gm By Mouth Daily,Instr:dissolve in water before taking, 163, cm, 05/28/20 11:24:00 EDT, Height, 102... Start Date: 07/11/20 Status: Orderedomeprazole 20 mg oral enteric coated capsule 1 capsule = 20 mg, By Mouth, Daily, # 90 capsule, 0 Refills, Maintenance, 02/19/21 15:58:00 EDT, EC Capsule, [facility]/pharmacy #[id number], 164, cm, 10/14/20 10:13:00 EST, Height, 112, kg, 10/14/20 10:13:00 EST, Dry Weight Start Date: 02/19/21 Stop Date: 05/20/21 Status: Orderedperphenazine 16 mg oral tablet 16 mg, 1, tablet, By Mouth, 2 times a day, # 60 tablet, Refills 0, Tot. Refills 0, Maintenance, 01/01/20 16:18:00 EDT, Route to Pharmacy Electronically, [facility]/pharmacy #[id number], 163, cm, 01/01/20 14:39:00 [...] 01/02/20 4:30:00 EDT, Route to Pharmacy Electronically, [facility]/pharmacy... Start Date: 01/02/20 Status: OrderedSenna 8.6 mg oral tablet 1, tablet, By Mouth, Daily at bedtime, PRN, # 60 tablet, Refills 1, Tot. Refills 0, Acute, NEEDEDFOR CONSTIPATION, 02/19/21 17:23:00 EDT, Route to Pharmacy Electronically, [facility] [id number], 164, cm,10/14/20 10:13:00 EST, Height, 112, kg, 10/14/20... Start Date: 02/19/21 Status: Orderedsimethicone 125 mg oral capsule See Instructions, TAKE 1 CAPSULE BY MOUTH THREE TIMES A DAY AFTER MEALS AND AT BEDTIME NEEDED, # 48 capsule, 11 Refills, Maintenance, 10/21/20 9:08:00 EST, [facility]/pharmacy #[id number], 164, cm, 10/14/20 10:13:00 EST, [...] oldest [Reference Range]: 1 Height 164 cm (03/13/21 9:51 AM) Weight 99.46 kg (03/13/21 9:51 AM) Body Mass Index [18.5-24.99] 36.98 *>HHI* (03/13/21 9:51 AM) Blood Pressure [90-138/55-84 mm Hg] 134/71 mm Hg (03/13/21 9:51 AM) Blood pressure sites Arm, right (03/13/21 9:51 AM) Weight Obtained Via Standing scale (03/13/21 9:51 AM) Social History Social History Type Response Tobacco Use: 4 or less cigarettes(le ss than 1/4 pack)/day in last 30 days. Sex Female
--- OUTSIDE RECORDS SUMMARY | 2022-06-29 21:27 | XMS_ITS | Continuity of Care Document ---
:1990 Author Organization [facility] Address [address] [place] [address]- Care Team Providers Name Role Phone Fatoumata Stokes DO Primary Care Physician [facility]counter [facility] Date(s): 07/24/20 - 07/31/20 [facility] [address] [place], [place] [address] Attending Physician: Fatoumata Stokes DO Allergies, [...] 11/22/19 13:30:00 EST, Route to Pharmacy Electronically, [facility]/pharmacy #[id number], 159, cm, 11/19/19 8:17:00 EST, Height, 89.7, kg, 11/14/19 9... Start Date: 11/22/19 Status: OrderedAquaphor Healing topical ointment See Instructions, APPLY TO NIPPLE DAILY NEEDED FOR DISCOMFORT, # 50 Gm, 0 Refills, Maintenance, [id number], 7, APPLY TO NIPPLE DAILY NEEDED FOR DISCOMFORT, 159, cm, 12/10/19 11:02:00 EDT, Height, 86.7, kg, 12/10/19 11:02:00 EDT, Dry Weight Start Date: 12/10/19 Status: Orderedbenztropine 1 mg oral tablet 1 mg, 1, tablet, By Mouth, 2 times a day, # 60 tablet, Refills 0, Tot. Refills 0, Maintenance, 01/01/20 16:15:00 EDT, [id number], cm, 01/01/20 14:39:00 EDT, Height, 86.5, kg, 12/19/19 19:14:00 EDT, Dry We... Start Date: 01/01/20 Stop Date: 01/31/20 Status: OrderedDepo-Provera Contraceptive 150 mg/mL intramuscular suspension 1 mL = 150 mg, Intramuscular, Every 3 months, # 1 mL, 3 Refills, Maintenance, 05/28/20 11:29:00 EDT,Suspension, [facility], 163, cm, 05/28/20 11:24:00 EDT, Height, 88.9, kg, 04/03/20 14:59:00 EDT, Dry Weight Start Date: 05/28/20 Status: Ordereddocusate sodium 100 mg oral capsule 100 mg, 1, capsule, By Mouth, 2 times a day, # 60 capsule, Refills 11, Tot. Refills 11, Maintenance,01/08/20 11:07:00 EDT, [id number] 163, cm, 01/02/20 7:50:00 EDT, Height, 86.5, kg, 12/19/19 19:14:00 EDT, D... Start Date: 01/08/20 Stop Date: 01/02/21 Status: Orderedestradiol 0.1 mg/24 hours twice weekly transdermal film, extended release 1 patch, Topically, Every Tuesday and , # 8 patch, 6 Refills, Maintenance, 05/28/20 11:01:00 EDT, [facility]/pharmacy #[id number], 163, cm, 04/03/20 14:59:00 EDT, Height, 88.9, kg, 04/03/20 14:59:00 EDT, DryWeight Start Date: 05/28/20 Status: OrderedEucerin Plus topical lotion 1 application, Topically, 2 times a day, PRN for dry skin, May apply to affected area every 6 hours as needed, up to 2 times/day, # 180 mL, 11 Refills, Maintenance, 08/06/19 12:15:04 EST, Lotion, [facility]/pharmacy #[id number] Start Date: 08/06/19 Status: Orderedferrous sulfate 325 mg oral enteric coated tablet 325 mg, 1, tablet, By Mouth, Daily, # 30 tablet, Refills 11, Tot. Refills 11, Maintenance, 01/08/20 11:07:00 EDT, Route to Pharmacy Electronically, [facility]/pharmacy #[id number], 163, cm, 01/02/20 7:50:00 EDT, Height, 86.5, kg, 12/19/19 19:14:00 EDT, Dry Weight Start Date: 01/08/20 Status: OrderedFlonase 50 mcg/inh nasal spray 1 sprays, Nares, Both, 2 times a day, # 16 Gm, 5 Refills, Maintenance, 07/04/20 9:01:00 EDT, [place], [facility]/pharmacy #[id number], 1 sprays Nares, Both 2 times a day, 163, cm, 05/28/20 11:24:00 EDT, Height, 102.3, kg, 06/22/20 23:55:00 EDT, Dry Weight Start Date: 07/04/20 Status: Orderedlithium 300 mg oral tablet 1 tablet = 300 mg, By Mouth, Daily in AM, # 30 tablet, 0 Refills, Maintenance, 01/01/20 16:16:00 EDT, Tablet, [facility]/pharm[facility] #[id number], 163, cm, 01/01/20 14:39:00 EDT, Height, 86.5, kg, 12/19/19 19:14:00 EDT, Dry Weight Start Date: 01/01/20 Stop Date: 01/29/20 Status: Orderedlithium 600 mg oral capsule 1 capsule = 600 mg, By Mouth, Daily at bedtime, # 30 capsule, 0 Refills, Maintenance, 01/01/20 16:16:00 EDT, Capsule, [facility]/pharm[facility] #[id number], 163, cm, 01/01/20 14:39:00 EDT, Height, 86.5, kg, 12/19/19 19:14:00 EDT, Dry Weight Start Date: 01/01/20 Stop Date: 03/01/20 Status: OrderedMiraLax oral powder for reconstitution = 17 Gm, By Mouth, Daily, dissolve in water before taking, # 255 Gm, 0 Refills, Maintenance, 07/11/20 15:38:00 EDT, REC Powder, [facility]/pharmacy #[id number], 17 Gm By Mouth Daily,Instr:dissolve [...] Refills, Maintenance, 07/07/20 11:44:00 EDT, EC Capsule, [facility]/pharm[facility] #[id number], 163, cm, 05/28/20 11:24:00 EDT, Height, 102.3, kg, 06/22/20 23:55:00 EDT, Dry Weight Start Date: 07/07/20 Status: Orderedperphenazine 16 mg oral tablet 16 mg, 1, tablet, By Mouth, 2 times a day, # 60 tablet, Refills 0, Tot. Refills 0, Maintenance, 01/01/20 16:18:00 EDT, Route to Pharmacy Electronically, [facility]/pharm[facility] #[id number], 163, cm, 01/01/20 14:39:00 EDT, [...] 4:30:00 EDT, Route to Pharmacy Electronically, [facility]/pharmacy... Start Date: 01/02/20 Status: Orderedsimethicone 125 mg oral capsule See Instructions, TAKE 1 CAPSULE BY MOUTH THREE TIMES A DAY AFTER MEALS AND AT BEDTIME NEEDED, # 48 capsule, 2 Refills, Physician Stop 08/23/20 8:25:00 EST, 07/23/20 8:25:00 EDT, [facility]/pharmacy #[id number],163, cm, 05/28/20 11:24:00 EDT, Height, 102.3, kg... Start Date: 07/23/20 Stop Date: 08/23/20 Status: OrderedTums 500 mg oral tablet, chewable 1,000 mg, 2, tablet, Chew, Every 6 hours, PRN, # 120 tablet, Refills 11, Tot. Refills 11, Maintenance, for indigestion, 08/06/19 12:12:32 EST, Route to Pharmacy Electronically, [facility]/pharm[facility] #[id number] Start Date: 08/06/19 Stop Date: 07/01/20 Status: OrderedZyrTEC 10 mg oral tablet 1 tablet = 10 mg, By Mouth, Daily, # 30 tablet, 5 Refills, Maintenance, 07/22/20 15:24:00 EDT, Tablet, [facility]/pharm[facility] #[id number], 163, cm, 05/28/20 11:24:00 EDT, [...]
--- OUTSIDE RECORDS SUMMARY | 2022-06-29 21:27 | XMS_ITS | Continuity of Care Document ---
:1990 Author Organization [facility] Address [address] [place] [address], [address] [place] [address]- Care Team Providers Name Role Phone Fatoumata Stokes DO Primary Care Physician Encounter [facility] Date(s): 05/28/20 - 06/04/20 [facility] [address] [facility], [address] [place] [address]- [facility] Attending Physician: Ashley Hallman MD Allergies, Adverse Reactions, [...] # 50 Gm, 0 Refills, Maintenance, [id number], 7, APPLY TO NIPPLE DAILY NEEDED FOR DISCOMFORT, 159, cm, 12/10/19 11:02:00 EDT, Height, 86.7, kg, 12/10/19 11:02:00 EDT, Dry Weight Start Date: 12/10/19 Status: Orderedbenztropine 1 mg oral tablet 1 mg, 1, tablet, By Mouth, 2 times a day, # 60 tablet, Refills 0, Tot. Refills 0, Maintenance, 01/01/20 16:15:00 EDT, [id number] 163, cm, 01/01/20 14:39:00 EDT, Height, 86.5, kg, 12/19/19 19:14:00 EDT, Dry We... Start Date: 01/01/20 Stop Date: 01/31/20 Status: OrderedDepo-Provera Contraceptive 150 mg/mL intramuscular suspension 1 mL = 150 mg, Intramuscular, Every 3 months, # 1 mL, 3 Refills, Maintenance, 05/28/20 11:29:00 EDT,Suspension, [facility], 163, cm, 05/28/20 11:24:00 EDT, Height, 88.9, kg, 04/03/20 14:59:00 EDT, Dry Weight Start Date: 05/28/20 Status: Ordereddocusate sodium 100 mg oral capsule 100 mg, 1, capsule, By Mouth, 2 times a day, # 60 capsule, Refills 11, Tot. Refills 11, Maintenance,01/08/20 11:07:00 EDT, [id number], 163, cm, 01/02/20 7:50:00 EDT, Height, 86.5, kg, 12/19/19 19:14:00 EDT, D... Start Date: 01/08/20 Stop Date: 01/02/21 Status: Orderedestradiol 0.1 mg/24 hours twice weekly transdermal film, extended release 1 patch, Topically, Every Tuesday and , # 8 patch, 6 Refills, Maintenance, 05/28/20 11:01:00 EDT, [facility]/pharmacy #[id number], 163, cm, 04/03/20 14:59:00 EDT, Height, 88.9, kg, 04/03/20 14:59:00 EDT, DryWeight Start Date: 05/28/20 Status: OrderedEucerin Plus topical lotion 1 application, Topically, 2 times a day, PRN for dry skin, May apply to affected area every 6 hours as needed, up to 2 times/day, # 180 mL, 11 Refills, Maintenance, 08/06/19 12:15:04 EST, Lotion, [facility]/pharmacy #[id number] Start Date: 08/06/19 Status: Orderedferrous sulfate 325 mg oral enteric coated tablet 325 mg, 1, tablet, By Mouth, Daily, # 30 tablet, Refills 11, Tot. Refills 11, Maintenance, 01/08/20 11:07:00 EDT, Route to Pharmacy Electronically, [facility]/pharmacy #[id number], 163, cm, 01/02/20 7:50:00 EDT, Height, 86.5, kg, 12/19/19 19:14:00 EDT, Dry Weight Start Date: 01/08/20 Status: OrderedFlonase 50 mcg/inh nasal spray 1 sprays, Nares, Both, 2 times a day, # 16 Gm, 3 Refills, Maintenance, 04/03/20 15:37:00 EDT, [place],[facility]/pharmacy #[id number], 1 sprays Nares, Both [...] Refills, Maintenance, 01/08/20 11:07:00 EDT, EC Capsule, [facility]/pharmacy #[id number], 163, cm, 01/02/20 7:50:00 EDT, Height, 86.5, kg, 12/19/19 19:14:00 EDT, Dry Weight Start Date: 01/08/20 Status: Orderedperphenazine 16 mg oral tablet 16 mg, 1, tablet, By Mouth, 2 times a day, # 60 tablet, Refills 0, Tot. Refills 0, Maintenance, 01/01/20 16:18:00 EDT, [id number], 163, cm, 01/01/20 14:39:00 EDT, Height, [...] [facility]... Start Date: 01/02/20 Status: Orderedsimethicone 125 mg oral capsule See Instructions, TAKE 1 CAPSULE BY MOUTH THREE TIMES A DAY AFTER MEALS AND AT BEDTIME NEEDED, # 48 capsule, 2 Refills, Acute, [facility] [id number], 163, cm, 05/28/20 11:24:00 EDT, Height, 88.9, kg, 04/03/20 14:59:00 EDT, Dry Weight Start Date: 06/03/20 Status: OrderedTums 500 mg oral tablet, chewable 1,000 mg, 2, tablet, Chew, Every 6 hours, PRN, # 120 tablet, Refills 11, Tot. Refills 11, Maintenance, for indigestion, 08/06/19 12:12:32 EST, Route to Pharmacy Electronically, [facility]/pharmacy #[id number] Start Date: 08/06/19 Stop Date: 07/01/20 Status: OrderedZyrTEC 10 mg oral tablet 1 tablet = 10 mg, By Mouth, Daily, # 30 tablet, 3 Refills, Maintenance, 04/03/20 15:37:00 EDT, Tablet, [facility]/pharmacy #[id number], 163, cm, 04/03/20 14:59:00 [...] oldest [Reference Range]: 1 Height 163 cm (05/28/20 11:24 AM) Weight 91.6 kg (05/28/20 11:24 AM) Body Mass Index [18.5-24.99] 34.48 *>HHI* (05/28/20 11:24 AM) Blood Pressure [90-138/55-84 mm Hg] 119/69 mm Hg (05/28/20 11:24 AM) Blood pressure sites Arm, right (05/28/20 11:24 AM) Weight Obtained Via Standing scale (05/28/20 11:24 AM) Social History Social History Type Response Tobacco Use: 4 or less cigarettes(le ss than 1/4 pack)/day in last 30 days. Sex
--- OUTSIDE RECORDS SUMMARY | 2022-06-29 21:27 | XMS_ITS | Continuity of Care Document ---
:1990 Author Organization [facility] Address [address] [place] [id number]- Care Team Providers Name Role Phone Fatoumata Stokes DO Primary Care Physician Encounter [facility] Date(s): 11/14/20 - 12/14/20 [facility] [address] [place] [id number] Allergies, Adverse Reactions, Alerts [...] 11/22/19 13:30:00 EST, Route to Pharmacy Electronically, [facility]/pharmacy #[id number], 159, cm, 11/19/19 8:17:00 EST, Height, 89.7, kg, 11/14/19 9... Start Date: 11/22/19 Status: OrderedAquaphor Healing topical ointment See Instructions, APPLY TO NIPPLE DAILY NEEDED FOR DISCOMFORT, # 50 Gm, 0 Refills, Maintenance, [facility] [id number], 7, APPLY TO NIPPLE DAILY NEEDED FOR [...] Refills, Maintenance, 12/04/20 14:32:00 EST, REC Powder, [facility]/pharmacy #[id number], Partial fill upon patient request if t... Start Date: 12/04/20 Status: Orderedbenztropine 1 mg oral tablet 1 mg, 1, tablet, By Mouth, 2 times a day, # 60 tablet, Refills 0, Tot. Refills 0, Maintenance, 01/01/20 16:15:00 EDT, [id number] 163, cm, 01/01/20 14:39:00 EDT, Height, 86.5, kg, 12/19/19 19:14:00 EDT, Dry We... Start Date: 01/01/20 Stop Date: 01/31/20 Status: OrderedDepo-Provera Contraceptive 150 mg/mL intramuscular suspension 1 mL = 150 mg, Intramuscular, Every 3 months, # 1 mL, 3 Refills, Maintenance, 08/26/20 9:54:00 EST, Suspension, [facility], 163, cm, 05/28/20 11:24:00 EDT, Height, 100, kg, 08/04/20 11:40:00 EST, Dry Weight Start Date: 08/26/20 Status: Ordereddocusate sodium 100 mg oral capsule 100 mg, 1, capsule, By Mouth, 2 times a day, # 60 capsule, Refills 11, Tot. Refills 11, Maintenance,01/08/20 11:07:00 EDT, Route to Pharmacy Electronically, [facility]/pharmacy #[id number], 163, cm, 01/02/20 7:50:00 EDT, Height, 86.5, kg, 12/19/19 19:14:00 EDT, D... Start Date: 01/08/20 Stop Date: 01/02/21 Status: OrderedEstradiol Patch 0.1 mg/24 hours twice weekly transdermal film, extended release See Instructions, APPLY 1 PATCH TOPICALLY EVERY TUESDAY & TUESDAY, # 8 patch, 2 Refills, 12/03/20 8:15:00 EST, [facility]/pharmacy #[id number], 28, APPLY 1 PATCH TOPICALLY EVERY TUESDAY & TUESDAY, 164, cm, 10/14/20 10:13:00 EST, Height, 112, kg, 10/14/20 10:13:00... Start Date: 12/03/20 Status: Orderedferrous sulfate 325 mg oral enteric coated tablet 325 mg, 1, tablet, By Mouth, Daily, # 90 tablet, Refills 1, Tot. Refills 1, Maintenance, 10/31/20 16:01:00 EST, [id number] 164, cm, 10/14/20 10:13:00 EST, Height, 112, kg, 10/14/20 10:13:00 EST, Dry Weight Start Date: 10/31/20 Status: OrderedFlonase 50 mcg/inh nasal spray 1 sprays, Nares, Both, 2 times a day, # 16 Gm, 5 Refills, Maintenance, 07/04/20 9:01:00 EDT, [place], [facility]/pharmacy #[id number], 1 sprays Nares, Both 2 times a day, 163, cm, 05/28/20 11:24:00 EDT, Height, 102.3, kg, 06/22/20 23:55:00 EDT, Dry Weight Start Date: 07/04/20 Status: Orderedlithium 300 mg oral tablet 1 tablet = 300 mg, By Mouth, Daily in AM, # 30 tablet, 0 Refills, Maintenance, 01/01/20 16:16:00 EDT, Tablet, [facility]/pharmacy #[id number], 163, cm, 01/01/20 14:39:00 EDT, Height, 86.5, kg, 12/19/19 19:14:00 EDT, Dry Weight Start Date: 01/01/20 Stop Date: 01/29/20 Status: Orderedlithium 600 mg oral capsule 1 capsule = 600 mg, By Mouth, Daily at bedtime, # 30 capsule, 0 Refills, Maintenance, 01/01/20 16:16:00 EDT, Capsule, [facility]/pharmacy #[id number], 163, cm, 01/01/20 14:39:00 EDT, [...] Refills, Maintenance, 07/11/20 15:38:00 EDT, REC Powder, [facility]/pharmacy #[id number], 17 Gm By Mouth Daily,Instr:dissolve in water before taking, 163, cm, 05/28/20 11:24:00 EDT, Height, 102... Start Date: 07/11/20 Status: Orderedomeprazole 20 mg oral enteric coated capsule 1 capsule = 20 mg, By Mouth, Daily, # 30 capsule, 2 Refills, Maintenance, 12/08/20 10:55:00 EDT, EC Capsule, [facility]/pharmacy #[id number], 164, cm, 10/14/20 10:13:00 EST, Height, 112, kg, 10/14/20 10:13:00 EST, Dry Weight Start Date: 12/08/20 Status: Orderedperphenazine 16 mg oral tablet 16 mg, 1, tablet, By Mouth, 2 times a day, # 60 tablet, Refills 0, Tot. Refills 0, Maintenance, 01/01/20 16:18:00 EDT, Route to Pharmacy Electronically, [facility]/pharmacy #[id number], 163, cm, 01/01/20 14:39:00 EDT, Height, 86.5, kg, 12/19/19 19:14:00 EDT, Dry W... Start Date: 01/01/20 Status: Orderedperphenazine 8 mg oral tablet 8 mg, 1, tablet, By Mouth, 2 times a day, PRN, Indicated for severe agitation/psychosis and to be taken 8 hours apart, # 60 tablet, Refills 0, Tot. Refills 0, Maintenance, Psychosis, 01/02/20 4:30:00 EDT, Route to Pharmacy Electronically, [facility]/pharmacy... Start Date: 01/02/20 Status: Orderedsenna - oral tablet 1 tablet, By Mouth, Daily at bedtime, PRN for constipation, # 60 tablet, 1 Refills, Maintenance, 12/04/20 14:28:00 EST, Tablet, [facility]/pharmacy #[id number], Partial fill upon patient request if the prescriptionis for a schedule II opioid drug., 164, cm, 10/14... Start Date: 12/04/20 Status: Orderedsimethicone 125 mg oral capsule See Instructions, TAKE 1 CAPSULE BY MOUTH THREE TIMES A DAY AFTER MEALS AND AT BEDTIME NEEDED, # 48 capsule, 11 Refills, Maintenance, 10/21/20 9:08:00 EST, [facility]/pharmacy #[id number], 164, cm, 10/14/20 10:13:00 EST, Height, 112, kg, 10/14/20 10:13:00 EST,... Start Date: 10/21/20 Status: OrderedTums 500 mg oral tablet, chewable 1,000 mg, 2, tablet, Chew, Every 6 hours, PRN, # 120 tablet, Refills 11, Tot. Refills 11, Maintenance, for indigestion, 08/06/19 12:12:32 EST, Route to Pharmacy Electronically, [facility]/pharmacy #[id number] Start Date: 08/06/19 Stop Date: 07/01/20 Status: OrderedZyrTEC 10 mg oral tablet 1 tablet = 10 mg, By Mouth, Daily, # 30 tablet, 5 Refills, Maintenance, 07/22/20 15:24:00 EDT, Tablet, [facility]/pharmacy #[id number], 163, cm, 05/28/20 11:24:00 EDT, [...]
--- OUTSIDE RECORDS SUMMARY | 2022-06-29 21:27 | XMS_ITS | Continuity of Care Document ---
:1990 Author Organization [facility] Address [address] [place] [address], [address] [place] [id number]- Care Team Providers Name Role Phone Fatoumata Stokes DO Primary Care Physician [place] [facility] Date(s): 09/11/21 - 10/11/21 [facility] [address] [place] [address], [address] [place] [id number] Attending Physician: Jada Torres Admitting Physician: AdmtrJada Referring Physician: Admtr ArBridgett Allergies, Adverse Reactions, Alerts Substance Reaction Severity [...] 05/28/21 7:42:00 EDT, Route to Pharmacy Electronically, [facility]/pharmacy #[id number], 164, cm, 04/07/21 15:35:00 EDT, Height, 112, kg, 10/14/20 10... Start Date: 05/28/21 Status: OrderedBenefiber oral powder for reconstitution 5 mL, By Mouth, 2 times a day, PRN as needed for constipation, dissolve in 4 to 8 oz of beverage or soft food- hot or cold, # 155 Gm, 11 Refills, Maintenance, 03/05/21 15:58:00 EDT, REC Powder, [facility]/pharmacy #[id number], Partial fill upon patient request [...] Mouth, Daily, # 30 tablet, 2 Refills, [id number], 163, cm, 09/24/21 16:23:00 EST, Height, 112, kg, 10/14/20 10:13:00 EST, Dry Weight Start Date: 09/28/21 Status: Orderedcetirizine 10 mg oral tablet 1 tablet, By Mouth, Daily, # 30 tablet, 2 Refills, [facility], 164, cm, 05/28/21 13:07:00 EDT, Height, 112, kg, 10/14/20 10:13:00 EST, Dry Weight Start Date: 07/08/21 Status: Ordereddocusate sodium 100 mg oral capsule 1 capsule, By Mouth, 2 times a day, # 60 capsule, 5 Refills, Maintenance, 07/27/21 14:02:00 EDT, [facility]/pharmacy #[id number], 164, cm, 05/28/21 13:07:00 EDT, Height, 112, kg, 10/14/20 10:13:00 EST, Dry Weight Start Date: 07/27/21 Status: OrderedEstradiol Patch 0.1 mg/24 hours twice weekly transdermal film, extended release See Instructions, APPLY 1 PATCH TOPICALLY EVERY TUESDAY & TUESDAY, # 8 patch, 12 Refills, 03/13/21 13:04:00 EDT, [facility]/pharmacy #[id number], 28, APPLY 1 PATCH TOPICALLY EVERY TUESDAY & TUESDAY, 164, cm, 03/13/21 9:51:00 EDT, Height, 112, kg, 10/14/20 10:13:00... Start Date: 03/13/21 Status: Orderedferrous sulfate 325 mg oral enteric coated tablet 1, tablet, By Mouth, Daily, # 90 tablet, Refills 1, Route to Pharmacy Electronically, [id number], 164, cm, 05/28/21 13:07:00 EDT, Height, 112, kg, 10/14/20 10:13:00 EST, Dry Weight Start Date: 07/08/21 Status: Orderedfluticasone 50 mcg/inh nasal spray See Instructions, USE 1 SPRAY IN EACH NOSTRIL TWICE A DAY, # 16 mL, 5 Refills, Maintenance, [id number], 30, USE 1 SPRAY IN EACH NOSTRIL [...] 3 MONTHS, # 1 mL, 3 Refills, [facility], 164, cm, 05/28/21 13:07:00 EDT, Height, 112, kg, 10/14/20 10:13:00 EST, Dry Weight Start Date: 09/07/21 Status: OrderedMiraLax oral powder for reconstitution = 17 Gm, By Mouth, Daily, dissolve in water before taking, # 255 Gm, 0 Refills, Maintenance, 07/11/20 15:38:00 EDT, REC Powder, [facility]/pharmacy #[id number], 17 Gm By Mouth Daily,Instr:dissolve in water before taking, 163, cm, 05/28/20 11:24:00 EDT, Height, 102... Start Date: 07/11/20 Status: Orderedomeprazole 20 mg oral enteric coated capsule 1 capsule, By Mouth, Daily, # 90 capsule, 0 Refills, [id number], 164, cm, 05/28/21 13:07:00 EDT, Height, 112, [...] 01/02/20 4:30:00 EDT, Route to Pharmacy Electronically, [facility]/pharmacy... Start Date: 01/02/20 Status: OrderedSenna-Time 8.6 mg oral tablet 1 tablet, By Mouth, Daily at bedtime, PRN NEEDED FOR CONSTIPATION, # 60 tablet, 1 Refills, [facility], 164, cm, 05/28/21 13:07:00 EDT, Height, 112, kg, 10/14/20 10:13:00 EST, Dry Weight Start Date: 08/31/21 Status: Orderedsimethicone 125 mg oral capsule See Instructions, TAKE 1 CAPSULE BY MOUTH THREE TIMES A DAY AFTER MEALS AND AT BEDTIME NEEDED, # 48 capsule, 11 Refills, [facility], 164, cm, 04/07/21 15:35:00 EDT, Height, 112, [...]
--- OUTSIDE RECORDS SUMMARY | 2022-06-29 21:27 | XMS_ITS | Continuity of Care Document ---
:1990 [facility] Address [address] [place] [address], [address] [place] [id number]- Care Team Providers Name Role Phone Fatoumata Stokes DO Primary Care Physician Encounter [facility] Date(s[place] 07/15/20 - 09/25/20 [facility] [address] [facility], [address] [place] [id number] Attending Physician: Clayton Alvarez MD Allergies, [...] 0 Refills, Maintenance, [facility] [id number], 7, APPLY TO NIPPLE DAILY NEEDED FOR [...] 3 Refills, Maintenance, 08/26/20 9:54:00 EST, Suspension, [facility], 163, cm, 05/28/20 11:24:00 EDT, Height, 100, kg, 08/04/20 11:40:00 EST, Dry Weight Start Date: 08/26/20 Status: Ordereddocusate sodium 100 mg oral capsule 100 mg, 1, capsule, By Mouth, 2 times a day, # 60 capsule, Refills 11, Tot. Refills 11, Maintenance,01/08/20 11:07:00 EDT, [id number] 163, cm, 01/02/20 7:50:00 EDT, Height, [...] [id number], 163, cm, 01/02/20 7:50:00 EDT, Height, 86.5, kg, 12/19/19 19:14:00 EDT, Dry Weight Start Date: 01/08/20 Status: OrderedFlonase 50 mcg/inh nasal spray 1 sprays, Nares, Both, 2 times a day, # 16 Gm, 5 Refills, Maintenance, 07/04/20 9:01:00 EDT, [place], [facility]/pharmacy #[id number], 1 sprays Nares, [...] capsule, 2 Refills, Maintenance, 08/13/20 17:29:00 EST, [facility]/pharmacy #[id number], 163, cm, 05/28/20 [...]
--- OUTSIDE RECORDS SUMMARY | 2022-06-29 21:27 | XMS_ITS | Continuity of Care Document ---
:1990 Author Organization [facility] Address [address] [place] [address]- Care Team Providers Name Role Phone Fatoumata Stokes DO Primary Care Physician [facility]counter [facility] Date[facility]s): 05/06/21 - 06/13/21 [facility] [address] [place], [place] [address] Attending Physician: Melissa SENIOR ACCOUNTING CLERK, Wendy Allergies, Adverse Reactions, Alerts Substance Reaction [...] 05/28/21 7:42:00 EDT, Route to Pharmacy Electronically, [facility]/pharmacy #[id number], 164, cm, 04/07/21 15:35:00 EDT, Height, 112, kg, 10/14/20 10... Start Date: 05/28/21 Status: OrderedBenefiber oral powder for reconstitution 5 mL, By Mouth, 2 times a day, PRN as needed for constipation, dissolve in 4 to 8 oz of beverage or soft food- hot or cold, # 155 Gm, 11 Refills, Maintenance, 03/05/21 15:58:00 EDT, REC Powder, [facility]/pharmacy #[id number], Partial fill upon patient request if... Start Date: 03/05/21 Status: Orderedbenztropine 1 mg oral tablet 1 mg, 1, tablet, By Mouth, 2 times a day, # 60 tablet, Refills 0, Tot. Refills 0, Maintenance, 01/01/20 16:15:00 EDT, Route to Pharmacy Electronically, [facility]/pharmacy #[id number], 163, cm, 01/01/20 14:39:00 EDT, Height, 86.5, kg, 12/19/19 19:14:00 EDT, Dry We... Start Date: 01/01/20 Stop Date: 01/31/20 Status: Orderedcetirizine 10 mg oral tablet 1 tablet, By Mouth, Daily, # 30 tablet, 5 Refills, Maintenance, 02/16/21 14:03:00 EDT, [facility], 164, cm, 10/14/20 10:13:00 EST, Height, 112, kg, 10/14/20 10:13:00 EST, Dry Weight Start Date: 02/16/21 Status: Ordereddocusate sodium 100 mg oral capsule 1 capsule, By Mouth, 2 times a day, # 60 capsule, 5 Refills, Maintenance, 01/12/21 20:05:00 EDT[facility], 164, cm, 10/14/20 10:13:00 EST, Height, 112, kg, 10/14/20 10:13:00 EST, Dry Weight Start Date: 01/12/21 Status: OrderedEstradiol Patch 0.1 mg/24 hours twice weekly transdermal film, extended release See Instructions, APPLY 1 PATCH TOPICALLY EVERY TUESDAY & TUESDAY, # 8 patch, 12 Refills, 03/13/21 13:04:00 EDT, [facility]/pharmacy #[id number], 28, APPLY 1 PATCH TOPICALLY EVERY TUESDAY & TUESDAY, 164, cm, 03/13/21 9:51:00 EDT, Height, 112, kg, 10/14/20 10:13:00... Start Date: 03/13/21 Status: Orderedferrous sulfate 325 mg oral enteric coated tablet 325 mg, 1, tablet, By Mouth, Daily, # 90 tablet, Refills 1, Tot. Refills 1, Maintenance, 10/31/20 16:01:00 EST, Route to Pharmacy Electronically, [facility]/pharmacy #[id number], 164, cm, 10/14/20 10:13:00 EST, Height, 112, kg, 10/14/20 10:13:00 EST, Dry Weight Start Date: 10/31/20 Status: Orderedfluticasone 50 mcg/inh nasal spray See Instructions, USE 1 SPRAY IN EACH NOSTRIL TWICE A DAY, # 16 mL, 5 Refills, Maintenance, [facility], 30, USE 1 SPRAY IN EACH NOSTRIL TWICE A DAY, 164, cm, 10/14/20 10:13:00 EST, Height, 112, kg, 10/14/20 10:13:00 EST, Dry Weight Start Date: 03/06/21 Status: Orderedlithium 300 mg oral tablet 1 tablet = 300 mg, By Mouth, Daily in AM, # 30 tablet, 0 Refills, Maintenance, 01/01/20 16:16:00 EDT, Tablet, [facility]/pharmacy #[id number], 163, cm, 01/01/20 14:39:00 EDT, Height, 86.5, kg, 12/19/19 19:14:00 EDT, Dry Weight Start Date: 01/01/20 Stop Date: 01/29/20 Status: Orderedlithium 600 mg oral capsule 1 capsule = 600 mg, By Mouth, Daily at bedtime, # 30 capsule, 0 Refills, Maintenance, 01/01/20 16:16:00 EDT, Capsule, [facility]/pharmacy #[id number], 163, cm, 01/01/20 14:39:00 EDT, Height, 86.5, kg, 12/19/19 19:14:00 EDT, Dry Weight Start Date: 01/01/20 Stop Date: 03/01/20 Status: OrderedmedroxyPROGESTERone 150 mg/mL intramuscular suspension 1 mL, Intramuscular, Every 3 months, # 1 mL, 3 Refills, Soft Stop, 03/13/21 13:05:00 EDT, [facility]/pharmacy #[id number], 164, cm, 03/13/21 9:51:00 EDT, Height, 112, kg, 10/14/20 10:13:00 EST, Dry Weight Start Date: 03/13/21 Status: OrderedMiraLax oral powder for reconstitution = 17 Gm, By Mouth, Daily, dissolve in water before taking, # 255 Gm, 0 Refills, Maintenance, 07/11/20 15:38:00 EDT, REC Powder, [facility]/pharmacy #[id number], 17 Gm By Mouth Daily,Instr:dissolve in water before taking, 163, cm, 05/28/20 11:24:00 EDT, Height, 102... Start Date: 07/11/20 Status: Orderedomeprazole 20 mg oral enteric coated capsule 1 capsule, By Mouth, Daily, # 90 capsule, 0 Refills, Maintenance, 04/17/21 13:04:00 EDT, [facility], 164, cm, 04/07/21 15:35:00 EDT, Height, 112, kg, 10/14/20 10:13:00 EST, Dry Weight Start Date: 04/17/21 Status: Orderedperphenazine 16 mg oral tablet 16 mg, 1, tablet, By Mouth, 2 times a day, # 60 tablet, Refills 0, Tot. Refills 0, Maintenance, 01/01/20 16:18:00 EDT, Route to Pharmacy Electronically, [facility]/pharmacy #[id number], 163, cm, 01/01/20 14:39:00 EDT, Height, 86.5, kg, 12/19/19 19:14:00 EDT, Dry W... Start Date: 01/01/20 Status: Orderedperphenazine 8 mg oral tablet 8 mg, 1, tablet, By Mouth, 2 times a day, PRN, Indicated for severe agitation/psychosis and to be taken 8 hours apart, # 60 tablet, Refills 0, Tot. Refills 0, Maintenance, Psychosis, 01/02/20 4:30:00 EDT, Route to Pharmacy Electronically, [facility]/pharmacy... Start Date: 01/02/20 Status: OrderedSenna 8.6 mg oral tablet 1, tablet, By Mouth, Daily at bedtime, PRN, # 60 tablet, Refills 1, Tot. Refills 0, Acute, NEEDEDFOR CONSTIPATION, 02/19/21 17:23:00 EDT, Route to Pharmacy Electronically, [facility], 164, cm,10/14/20 10:13:00 EST, Height, 112, kg, 10/14/20... Start Date: 02/19/21 Status: Orderedsimethicone 125 mg oral capsule See Instructions, TAKE 1 CAPSULE BY MOUTH THREE TIMES A DAY AFTER MEALS AND AT BEDTIME NEEDED, # 48 capsule, 11 Refills, [facility], 164, cm, 04/07/21 15:35:00 EDT, Height, 112, [...]
--- OUTSIDE RECORDS SUMMARY | 2022-06-29 21:27 | XMS_ITS | Continuity of Care Document ---
:1990 Author Organization [facility] Address [address] [place] [address], [address] [place] [address]- Care Team Providers Name Role Phone Fatoumata Stokes DO Primary Care Physician Encounter [facility] Date(s): 11/24/20 - 03/11/21 [facility] [address], [address] [place] [address] Attending Physician: Lucía TORRES, Shannon Rock Referring Physician: Yoon Rutledge MD Allergies, Adverse Reactions, Alerts Substance Reaction [...] Electronically, [facility]/pharmacy #[id number], 159, [...] Refills, Maintenance, 02/16/21 14:03:00 EDT, [facility], 164, cm, 10/14/20 10:13:00 EST, Height, 112, kg, 10/14/20 10:13:00 EST, Dry Weight Start Date: 02/16/21 Status: Ordereddocusate sodium 100 mg oral capsule 1 capsule, By Mouth, 2 times a day, # 60 capsule, 5 Refills, Maintenance, 01/12/21 20:05:00 EDT, [facility], 164, cm, 10/14/20 10:13:00 EST, Height, 112, kg, 10/14/20 10:13:00 EST, Dry Weight Start Date: 01/12/21 Status: OrderedEstradiol Patch 0.1 mg/24 hours twice weekly transdermal film, extended release See Instructions, APPLY 1 PATCH TOPICALLY EVERY TUESDAY & TUESDAY, # 8 patch, 2 Refills, 12/03/20 8:15:00 EST, [facility]/pharmacy #[id number], 28, APPLY 1 PATCH TOPICALLY EVERY TUESDAY & TUESDAY, 164, cm, 10/14/20 10:13:00 EST, Height, 112, kg, 10/14/20 10:13:00... Start Date: 12/03/20 Status: Orderedferrous sulfate 325 mg oral enteric coated tablet 325 mg, 1, tablet, By Mouth, Daily, # 90 tablet, Refills 1, Tot. Refills 1, Maintenance, 10/31/20 16:01:00 EST, Route to Pharmacy Electronically, [facility]/pharmacy #[id number], 164, cm, 10/14/20 10:13:00 EST, Height, 112, kg, 10/14/20 10:13:00 EST, Dry Weight Start Date: 10/31/20 Status: Orderedfluticasone 50 mcg/inh nasal spray See Instructions, USE 1 SPRAY IN EACH NOSTRIL TWICE A DAY, # 16 mL, 5 Refills, Maintenance, [facility], 30, USE 1 SPRAY IN EACH NOSTRIL [...] # 1 mL, 3 Refills, Soft Stop, 03/06/21 9:34:00 EDT, [facility], 164, cm, 10/14/20 10:13:00 EST, Height, 112, kg, 10/14/20 10:13:00 EST, Dry Weight Start Date: 03/06/21 Status: OrderedMiraLax oral powder for reconstitution = [...] Refills, Maintenance, 02/19/21 15:58:00 EDT, EC Capsule, [facility]/pharmacy #[id number], 164, cm, 10/14/20 10:13:00 [...] [facility]... Start Date: 01/02/20 Status: OrderedSenna 8.6 mg oral tablet 1, tablet, By Mouth, Daily at bedtime, PRN, # 60 tablet, Refills 1, Tot. Refills 0, Acute, NEEDEDFOR CONSTIPATION, 02/19/21 17:23:00 EDT, Route to Pharmacy Electronically, [facility] 50[facility], 164, cm,10/14/20 10:13:00 EST, Height, 112, kg, [...]
--- OUTSIDE RECORDS SUMMARY | 2022-06-29 21:27 | XMS_ITS | Continuity of Care Document ---
:1990 Author Organization [facility] Address [address] [place] [id number]- Care Team Providers Name Role Phone Fatouamta Stokes DO Primary Care Physician Encounter [facility] Date(s): 05/04/21 - 05/05/[address] [address]- Encounter Diagnosis Schizophrenia (Final) - 05/05/21 Cholelithiasis (Final) - 05/05/21 Discharge Disposition: A-D/C Home Attending Physician: Tian [...] Refills, Maintenance, 03/05/21 15:58:00 EDT, REC Powder, [facility]/pharmacy #[id number], Partial fill upon patient request [...] Refills, Maintenance, 02/16/21 14:03:00 EDT, [facility], 164, cm, 10/14/20 10:13:00 EST, Height, 112, kg, 10/14/20 10:13:00 EST, Dry Weight Start Date: 02/16/21 Status: Ordereddocusate sodium 100 mg oral capsule 1 capsule, By Mouth, 2 times a day, # 60 capsule, 5 Refills, Maintenance, 01/12/21 20:05:00 EDT, [id number], 164, cm, 10/14/20 10:13:00 EST, Height, 112, kg, 10/14/20 10:13:00 EST, Dry Weight Start Date: 01/12/21 Status: OrderedEstradiol Patch 0.1 mg/24 hours twice weekly transdermal film, extended release See Instructions, APPLY 1 PATCH TOPICALLY EVERY TUESDAY & TUESDAY, # 8 patch, 12 Refills, 03/13/21 13:04:00 EDT, [facility]/pharmacy #[id number], 28, APPLY 1 PATCH TOPICALLY EVERY TUESDAY & TUESDAY, 164, cm, 03/13/21 9:51:00 EDT, Height, 112, kg, 10/14/20 10:13:00... Start Date: 03/13/21 Status: Orderedferrous sulfate 325 mg oral enteric coated tablet 325 mg, 1, tablet, By Mouth, Daily, # 90 tablet, Refills 1, Tot. Refills 1, Maintenance, 10/31/20 16:01:00 EST, Route to Pharmacy Electronically, [facility]/pharmacy #[id number], 164, cm, 10/14/20 10:13:00 EST, Height, 112, kg, 10/14/20 10:13:00 EST, Dry Weight Start Date: 10/31/20 Status: Orderedfluticasone 50 mcg/inh nasal spray See Instructions, USE 1 SPRAY IN EACH NOSTRIL TWICE A DAY, # 16 mL, 5 Refills, Maintenance, [facility] 34767, 30, USE 1 SPRAY IN EACH NOSTRIL [...] 3 Refills, Soft Stop, 03/13/21 13:05:00 EDT, [facility]/pharmacy #[id number], 164, cm, 03/13/21 9:51:00 EDT, Height, 112, kg, 10/14/20 10:13:00 EST, Dry Weight Start Date: 03/13/21 Status: OrderedMiraLax oral powder for reconstitution = 17 Gm, By Mouth, Daily, dissolve in water before taking, # 255 Gm, 0 Refills, Maintenance, 07/11/20 15:38:00 EDT, REC Powder, [facility]/pharmacy #[id number], 17 Gm By Mouth Daily,Instr:dissolve in water before taking, 163, cm, 05/28/20 11:24:00 EDT, Height, 102... Start Date: 07/11/20 Status: Orderedomeprazole 20 mg oral enteric coated capsule 1 capsule, By Mouth, Daily, # 90 capsule, 0 Refills, Maintenance, 04/17/21 13:04:00 EDT, [facility], 164, cm, 04/07/21 15:35:00 EDT, Height, 112, [...] [facility]/pharmacy... Start Date: 01/02/20 Status: OrderedSenna 8.6 mg oral tablet 1, tablet, By Mouth, Daily at bedtime, PRN, # 60 tablet, Refills 1, Tot. Refills 0, Acute, NEEDEDFOR CONSTIPATION, 02/19/21 17:23:00 EDT, Route to Pharmacy Electronically, [facility] 640[facility], 164, cm,10/14/20 10:13:00 EST, Height, 112, kg, 10/14/20... Start Date: 02/19/21 Status: Orderedsimethicone 125 mg oral capsule See Instructions, TAKE 1 CAPSULE BY MOUTH THREE TIMES A DAY AFTER MEALS AND AT BEDTIME NEEDED, # 48 capsule, 11 Refills, Maintenance, 10/21/20 9:08:00 EST, [facility]/pharmacy #[id number], 164, cm, 10/14/20 10:13:00 EST, [...] Saturation [94-100 %] 99 % 100 % (05/05/21 3:02 AM) (05/04/21 6:26 PM) Pulse Rate [55-90 bpm] 74 bpm 99 bpm (05/05/21 3:02 AM) *H* (05/04/21 6:26 PM) Blood Pressure [90-138/55-84 mm Hg] 114/57 mm Hg 125/ 82 mm Hg (05/05/21 3:02 AM) (05/04/21 6:26 PM) Respiratory Rate [16-30 br/min] 18 br/min 18 br/mi n (05/05/21 3:02 AM) (05/04/21 6:26 PM) Temperature [96.8-100.4 DegF] 98.8 DegF 98.6 DegF (05/05/21 3:02 AM) (05/04/21 6:26 PM) Liters per Minute 0 L/min (05/04/21 6:26 PM) Mode of Delivery (Oxygen) Room air Room air (05/05/21 3:02 AM) (05/04/21 6:26 PM) Blood pressure sites Arm, right Arm, right (05/05/21 3:02 AM) (05/04/21 6:26 PM) Temperature Route Oral Oral (05/05/21 3:02 AM) (05/04/21 6:26 PM) Social History Social History Type Response Tobacco Use: 4 or less cigarettes(le ss than 1/4 pack)/day in last 30 days. Sex Female
--- OUTSIDE RECORDS SUMMARY | 2022-06-29 21:28 | XMS_ITS | Continuity of Care Document ---
:1990 Author Organization [facility] Address [address] [place] [address]- Care Team Providers Name Role Phone Fatoumata Stokes DO Primary Care Physician [facility] Date(s): 06/04/21 - 07/04/21 [facility] [address] [place], [place] [address] Allergies, Adverse Reactions, Alerts Substance Reaction Severity [...] 05/28/21 7:42:00 EDT, Route to Pharmacy Electronically, [facility]/pharmacy #[id number], 164, cm, 04/07/21 15:35:00 EDT, Height, 112, kg, 10/14/20 10... Start Date: 05/28/21 Status: OrderedBenefiber oral powder for reconstitution 5 mL, By Mouth, 2 times a day, PRN as needed for constipation, dissolve in 4 to 8 oz of beverage or soft food- hot or cold, # 155 Gm, 11 Refills, Maintenance, 03/05/21 15:58:00 EDT, REC Powder, [facility]/pharmacy #[id number], Partial fill upon patient request if... Start Date: 03/05/21 Status: Orderedbenztropine 1 mg oral tablet 1 mg, 1, tablet, By Mouth, 2 times a day, # 60 tablet, Refills 0, Tot. Refills 0, Maintenance, 01/01/20 16:15:00 EDT, Route to Pharmacy Electronically, [facility]/pharmacy #[id number], 163, cm, 01/01/20 14:39:00 EDT, Height, 86.5, kg, 12/19/19 19:14:00 EDT, Dry We... Start Date: 01/01/20 Stop Date: 01/31/20 Status: Orderedcetirizine 10 mg oral tablet 1 tablet, By Mouth, Daily, # 30 tablet, 5 Refills, Maintenance, 02/16/21 14:03:00 EDT, [facility], 164, cm, 10/14/20 10:13:00 EST, Height, 112, kg, 10/14/20 10:13:00 EST, Dry Weight Start Date: 02/16/21 Status: Ordereddocusate sodium 100 mg oral capsule 1 capsule, By Mouth, 2 times a day, # 60 capsule, 5 Refills, Maintenance, 01/12/21 20:05:00 EDT, [facility], 164, cm, 10/14/20 10:13:00 EST, Height, 112, kg, 10/14/20 10:13:00 EST, Dry Weight Start Date: 01/12/21 Status: OrderedEstradiol Patch 0.1 mg/24 hours twice weekly transdermal film, extended release See Instructions, APPLY 1 PATCH TOPICALLY EVERY TUESDAY & TUESDAY, # 8 patch, 12 Refills, 03/13/21 13:04:00 EDT, [facility]/pharmacy #[id number], 28, APPLY 1 PATCH TOPICALLY EVERY TUESDAY & TUESDAY, 164, cm, 03/13/21 9:51:00 EDT, Height, 112, kg, 10/14/20 10:13:00... Start Date: 03/13/21 Status: Orderedferrous sulfate 325 mg oral enteric coated tablet 325 mg, 1, tablet, By Mouth, Daily, # 90 tablet, Refills 1, Tot. Refills 1, Maintenance, 10/31/20 16:01:00 EST, Route to Pharmacy Electronically, [facility]/pharmacy #[id number], 164, cm, 10/14/20 10:13:00 EST, Height, 112, kg, 10/14/20 10:13:00 EST, Dry Weight Start Date: 10/31/20 Status: Orderedfluticasone 50 mcg/inh nasal spray See Instructions, USE 1 SPRAY IN EACH NOSTRIL TWICE A DAY, # 16 mL, 5 Refills, Maintenance, [facility] 53652, 30, USE 1 SPRAY IN EACH NOSTRIL TWICE A DAY, 164, cm, 10/14/20 10:13:00 EST, Height, 112, kg, 10/14/20 10:13:00 EST, Dry Weight Start Date: 03/06/21 Status: Orderedlithium 300 mg oral tablet 1 tablet = 300 mg, By Mouth, Daily in AM, # 30 tablet, 0 Refills, Maintenance, 01/01/20 16:16:00 EDT, Tablet, [facility]/pharmacy #[id number], 163, cm, 01/01/20 14:39:00 EDT, Height, 86.5, kg, 12/19/19 19:14:00 EDT, Dry Weight Start Date: 01/01/20 Stop Date: 01/29/20 Status: Orderedlithium 600 mg oral capsule 1 capsule = 600 mg, By Mouth, Daily at bedtime, # 30 capsule, 0 Refills, Maintenance, 01/01/20 16:16:00 EDT, Capsule, [facility]/pharmacy #[id number], 163, cm, 01/01/20 14:39:00 EDT, Height, 86.5, kg, 12/19/19 19:14:00 EDT, Dry Weight Start Date: 01/01/20 Stop Date: 03/01/20 Status: OrderedmedroxyPROGESTERone 150 mg/mL intramuscular suspension 1 mL, Intramuscular, Every 3 months, # 1 mL, 3 Refills, Soft Stop, 03/13/21 13:05:00 EDT, [facility]/pharmacy #[id number], 164, cm, 03/13/21 9:51:00 EDT, Height, 112, kg, 10/14/20 10:13:00 EST, Dry Weight Start Date: 03/13/21 Status: OrderedMiraLax oral powder for reconstitution = 17 Gm, By Mouth, Daily, dissolve in water before taking, # 255 Gm, 0 Refills, Maintenance, 07/11/20 15:38:00 EDT, REC Powder, [facility]/pharmacy #[id number], 17 Gm By Mouth Daily,Instr:dissolve in water before taking, 163, cm, 05/28/20 11:24:00 EDT, Height, 102... Start Date: 07/11/20 Status: Orderedomeprazole 20 mg oral enteric coated capsule 1 capsule, By Mouth, Daily, # 90 capsule, 0 Refills, Maintenance, 04/17/21 13:04:00 EDT, [facility], 164, cm, 04/07/21 15:35:00 EDT, Height, 112, kg, 10/14/20 10:13:00 EST, Dry Weight Start Date: 04/17/21 Status: Orderedperphenazine 16 mg oral tablet 16 mg, 1, tablet, By Mouth, 2 times a day, # 60 tablet, Refills 0, Tot. Refills 0, Maintenance, 01/01/20 16:18:00 EDT, [id number], cm, 01/01/20 14:39:00 [...] [facility] Start Date: 01/02/20 Status: OrderedSenna 8.6 mg oral tablet 1, tablet, By Mouth, Daily at bedtime, PRN, # 60 tablet, Refills 1, Tot. Refills 0, Acute, NEEDEDFOR CONSTIPATION, 02/19/21 17:23:00 EDT, Route to Pharmacy Electronically, [facility] 48827, 164, cm,10/14/20 10:13:00 EST, Height, 112, kg, 10/14/20... Start Date: 02/19/21 Status: Orderedsimethicone 125 mg oral capsule See Instructions, TAKE 1 CAPSULE BY MOUTH THREE TIMES A DAY AFTER MEALS AND AT BEDTIME NEEDED, # 48 capsule, 11 Refills, [facility] 65944, 164, cm, 04/07/21 15:35:00 EDT, Height, 112, [...]
--- OUTSIDE RECORDS SUMMARY | 2022-06-29 21:28 | XMS_ITS | Continuity of Care Document ---
:1990 Author Organization [facility] Address [address] [place] [address], [address] [place] [id number]- Care Team Providers Name Role Phone Fatoumata Stokes DO Primary Care Physician [facility] Date[facility]): 08[facility]20 - [facility] [address], [address] [place] [phone]- Attending Physician: Shannon Castrejon MD Referring Physician: [...] Refills, Maintenance, [facility] [address], 7, APPLY TO NIPPLE DAILY NEEDED FOR [...] Refills, Maintenance, 12/04/20 14:32:00 EST, REC Powder, [id number] fill upon patient request if t... Start Date: 12/04/20 Status: Orderedbenztropine 1 mg oral tablet 1 mg, 1, tablet, By Mouth, 2 times a day, # 60 tablet, Refills 0, Tot. Refills 0, Maintenance, 01/01/20 16:15:00 EDT, [id number], 163, cm, 01/01/20 14:39:00 EDT, Height, 86.5, kg, 12/19/19 19:14:00 EDT, Dry We... Start Date: 01/01/20 Stop Date: 01/31/20 Status: OrderedDepo-Provera Contraceptive 150 mg/mL intramuscular suspension 1 mL = 150 mg, Intramuscular, Every 3 months, # 1 mL, 3 Refills, Maintenance, 08/26/20 9:54:00 EST, Suspension, [facility], 163, cm, 05/28/20 11:24:00 [...] patch, 2 Refills, 12/03/20 8:15:00 EST, [facility]/pharmacy #[id number], 28, APPLY 1 PATCH TOPICALLY EVERY TUESDAY & TUESDAY, 164, cm, 10/14/20 10:13:00 EST, Height, 112, kg, 10/14/20 10:13:00... Start Date: 12/03/20 Status: Orderedferrous sulfate 325 mg oral enteric coated tablet 325 mg, 1, tablet, By Mouth, Daily, # 90 tablet, Refills 1, Tot. Refills 1, Maintenance, 10/31/20 16:01:00 EST, Route to Pharmacy Electronically, [facility]/pharmacy #[id number], 164, cm, 10/14/20 10:13:00 EST, Height, 112, kg, 10/14/20 10:13:00 EST, Dry Weight Start Date: 10/31/20 Status: OrderedFlonase 50 mcg/inh nasal spray 1 sprays, Nares, Both, 2 times a day, # 16 Gm, 5 Refills, Maintenance, 07/04/20 9:01:00 EDT, [place], [facility]/pharmacy #[id number], 1 sprays Nares, Both 2 [...] Maintenance, 07/11/20 15:38:00 EDT, REC Powder, [facility]/pharmacy #[id number], 17 Gm By Mouth Daily,Instr:dissolve in water before taking, 163, cm, 05/28/20 11:24:00 EDT, Height, 102... Start Date: 07/11/20 Status: Orderedomeprazole 20 mg oral enteric coated capsule 1 capsule = 20 mg, By Mouth, Daily, # 30 capsule, 5 Refills, Maintenance, 07/07/20 11:44:00 EDT, EC Capsule, [facility]/pharmacy #[id number], 163, cm, 05/28/20 11:24:00 EDT, [facility]... Start Date: 01/02/20 Status: Orderedsenna - oral tablet 1 tablet, By Mouth, Daily at bedtime, PRN for constipation, # 60 tablet, 1 Refills, Maintenance, 12/04/20 14:28:00 EST, Tablet, [facility]/pharmacy #[id number], Partial fill upon patient request [...] Refills, Maintenance, 07/22/20 15:24:00 EDT, Tablet, [facility]/pharmacy #[id number], 163, cm, 05/28/20 11:24:00 EDT, [...]
--- OUTSIDE RECORDS SUMMARY | 2022-06-29 21:28 | XMS_ITS | Continuity of Care Document ---
:1990 Author Organization [facility] Address [address] [place] [address]- Care Team Providers Name Role Phone Fatoumata Stokes DO Primary Care Physician Encounter [facility] [place] [facility] [place] Date(s): 03/19/20 - 03/19/[address] [address]- [facility] Encounter Diagnosis Post-nasal drip (Final) - 03/19/20 Discharge Disposition: A-D/C Home Attending Physician: Sarah Ayala MD Admitting Physician: Sarah Ayala MD Referring Physician: Not on Staff, [...] 0 Refills, Maintenance, [facility] [id number], 7, APPLY TO NIPPLE DAILY NEEDED FOR [...] mL, 3 Refills, Maintenance, 12/10/19 11:23:00 EDT,Suspension, [facility], 159, cm, 12/10/19 11:02:00 [...] patch, 6 Refills, Maintenance, 12/10/19 11:19:00 EDT, [facility]/pharmacy #[id number], 159, cm, 12/10/19 11:02:00 EDT, Height, 86.7, kg, 12/10/19 11:02:00 EDT, DryWeight Start Date: 12/10/19 Status: OrderedEucerin Plus topical lotion 1 application, Topically, 2 times a day, PRN for dry skin, May apply to affected area every 6 hours as needed, up to 2 times/day, # 180 mL, 11 Refills, Maintenance, 11/11/19 12:15:04 EST, Lotion, [facility]/pharmacy #[id number] [...] Gm, 0 Refills, Maintenance, 03/19/20 8:49:00 EDT, [place], [facility]/pharmacy #[id number], 1 sprays Nares, [...] Refills, Maintenance, 01/08/20 11:07:00 EDT, EC Capsule, [facility]/pharmacy #[id number], 163, cm, 01/02/20 [...] [facility]/pharmacy... Start Date: 01/02/20 Status: OrderedTums 500 [...] [Reference Range]: 1 Oxygen Saturation [94-100 %] 98 % (03/19/20 8:27 AM) Pulse Rate [55-90 bpm] 75 bpm (03/19/20 8:27 AM) Blood Pressure [90-138/55-84 mm Hg] 121/66 mm Hg (03/19/20 8:27 AM) Respiratory Rate [16-30 br/min] 16 br/min (03/19/20 8:27 AM) Temperature [96.8-100.4 DegF] 98.8 DegF (03/19/20 8:27 AM) Mode of Delivery (Oxygen) Room air (03/19/20 8:27 AM) Blood pressure sites Arm, right (03/19/20 8:27 AM) Temperature Route Oral (03/19/20 8:27 AM) Social History Social History Type Response Smoking Status Light tobacco smoker entered on: 09/26/14 Sex
--- OUTSIDE RECORDS SUMMARY | 2022-06-29 21:28 | XMS_ITS | Continuity of Care Document ---
:1990 Author Organization [facility] Address [address] [place] [id number]- Care Team Providers Name Role Phone Fatoumata Stokes DO Primary Care Physician Encounter [facility] Date(s): 01/05/21 - 01/06/[address] [address]- Discharge Disposition: A-D/C Home Attending Physician: Umesh Black MD Admitting Physician: Umesh Black MD Referring Physician: Not on Staff, Referring [...] 0 Refills, Maintenance, [facility] [id number], 7, APPLY TO NIPPLE DAILY NEEDED FOR [...] Refills, Maintenance, 01/05/21 11:50:00 EDT, REC Powder, [id number] Partial fill upon patient request if t... Start Date: 01/05/21 Status: Orderedbenztropine 1 mg oral tablet 1 mg, 1, tablet, By Mouth, 2 times a day, # 60 tablet, Refills 0, Tot. Refills 0, Maintenance, 01/01/20 16:15:00 EDT, [id number] 163, cm, 01/01/20 14:39:00 [...] Maintenance,01/08/20 11:07:00 EDT, [id number], cm, 01/02/20 7:50:00 EDT, Height, 86.5, kg, 12/19/19 19:14:00 EDT, D... Start Date: 01/08/20 Stop Date: 01/02/21 Status: OrderedEstradiol Patch 0.1 mg/24 hours twice weekly transdermal film, extended release See Instructions, APPLY 1 PATCH TOPICALLY EVERY TUESDAY & TUESDAY, # 8 patch, 2 Refills, 12/03/20 8:15:00 EST, [facility]/pharmacy #[id number], 28, APPLY 1 PATCH TOPICALLY EVERY TUESDAY & TUESDAY, 164, cm, 10/14/20 10:13:00 EST, Height, 112, kg, 10/14/20 10:13:00... Start Date: 12/03/20 Status: Orderedferrous sulfate 325 mg oral enteric coated tablet 325 mg, 1, tablet, By Mouth, Daily, # 90 tablet, Refills 1, Tot. Refills 1, Maintenance, 10/31/20 16:01:00 EST, Route to Pharmacy Electronically, [facility]/pharmacy #[id number], 164, cm, 10/14/20 10:13:00 EST, Height, 112, kg, 10/14/20 10:13:00 EST, Dry Weight Start Date: 10/31/20 Status: OrderedFlonase 50 mcg/inh nasal spray 1 sprays, Nares, Both, 2 times a day, # 16 Gm, 5 Refills, Maintenance, 07/04/20 9:01:00 EDT, [place], [facility]/pharmacy #[id number], 1 sprays Nares, [...] Refills, Maintenance, 12/08/20 10:55:00 EDT, EC Capsule, [facility]/pharmacy #[id number], 164, cm, 10/14/20 10:13:00 EST, [...] [facility]/pharmacy... Start Date: 01/02/20 Status: Orderedsenna - oral tablet 1 tablet, By Mouth, Daily at bedtime, PRN for constipation, # 60 tablet, 1 Refills, Maintenance, 12/04/20 14:28:00 EST, Tablet, [facility]/pharmacy #[id number], Partial fill upon patient request if the prescriptionis for a schedule II opioid drug., 164, cm, 10/14... Start Date: 12/04/20 Status: Orderedsimethicone 125 mg oral capsule See Instructions, TAKE 1 CAPSULE BY MOUTH THREE TIMES A DAY AFTER MEALS AND AT BEDTIME NEEDED, # 48 capsule, 11 Refills, Maintenance, 10/21/20 9:08:00 EST, [facility]/pharmacy #[id number], 164, cm, 10/14/20 10:13:00 EST, [...] 3 [Reference Range]: Oxygen Saturation [94-100 %] 99 % 99 % 99 % (01/06/21 7:06 AM) (01/05/21 11:39 PM) (01/05/21 9: 45 PM) Pulse Rate [55-90 bpm] 72 bpm 76 bpm 79 bpm (01/06/21 7:06 AM) (01/05/21 11:39 PM) (01/05/21 9: 45 PM) Blood Pressure [90-138/55-84 118/70 mm Hg 130/80 mm Hg 127 /82 mm Hg mm Hg] (01/06/21 7:06 AM) (01/05/21 11:39 PM) (01/05/21 9: 45 PM) Respiratory Rate [16-30 16 br/min 16 br/min 16 br/mi n br/min] (01/06/21 7:06 AM) (01/05/21 11:39 PM) (01/05/21 9: 45 PM) Temperature [96.8-100.4 DegF] 98.0 DegF (01/05/21 7:30 PM) Mode of Delivery (Oxygen) Room air (01/05/21 7:30 PM) Blood pressure sites Arm, right (01/05/21 7:30 PM) Temperature Route Oral (01/05/21 7:30 PM) Social History Social History Type Response Tobacco Use: 4 or less cigarettes(le ss than 1/4 pack)/day in last 30 days. Sex Female
--- OUTSIDE RECORDS SUMMARY | 2022-06-29 21:28 | XMS_ITS | Continuity of Care Document ---
:1990 Author Organization [facility] Address [address] [place] [address]- Care Team Providers Name Role Phone Fatoumata Stokes DO Primary Care Physician [facility]counter [facility] Date(s): 11/19/20 - 12/19/20 [facility] [address] [place], [place] [address] Allergies, Adverse Reactions, Alerts Substance [...] 0 Refills, Maintenance, [facility] [id number], 7, APPLY TO NIPPLE DAILY NEEDED FOR [...] Refills, Maintenance, 12/04/20 14:32:00 EST, REC Powder, [facility]/pharmacy #[id number], Partial fill upon patient request if t... Start Date: 12/04/20 Status: Orderedbenztropine 1 mg oral tablet 1 mg, 1, tablet, By Mouth, 2 times a day, # 60 tablet, Refills 0, Tot. Refills 0, Maintenance, 01/01/20 16:15:00 EDT, [id number], cm, 01/01/20 14:39:00 EDT, Height, 86.5, kg, 12/19/19 19:14:00 EDT, Dry We... Start Date: 01/01/20 Stop Date: 01/31/20 Status: OrderedDepo-Provera Contraceptive 150 mg/mL intramuscular suspension 1 mL = 150 mg, Intramuscular, Every 3 months, # 1 mL, 3 Refills, Maintenance, 08/26/20 9:54:00 EST, Suspension, [facility], 163, cm, 05/28/20 11:24:00 EDT, Height, 100, kg, 08/04/20 11:40:00 EST, Dry Weight Start Date: 08/26/20 Status: Ordereddocusate sodium 100 mg oral capsule 100 mg, 1, capsule, By Mouth, 2 times a day, # 60 capsule, Refills 11, Tot. Refills 11, Maintenance,01/08/20 11:07:00 EDT, [id number] 163, cm, 01/02/20 7:50:00 EDT, Height, 86.5, kg, 12/19/19 19:14:00 EDT, D... Start Date: 01/08/20 Stop Date: 01/02/21 Status: OrderedEstradiol Patch 0.1 mg/24 hours twice weekly transdermal film, extended release See Instructions, APPLY 1 PATCH TOPICALLY EVERY TUESDAY & TUESDAY, # 8 patch, 2 Refills, 12/03/20 8:15:00 EST, [facility]/pharmacy #[id number], 28, APPLY 1 PATCH TOPICALLY EVERY TUESDAY & TUESDAY, 164, cm, 10/14/20 10:13:00 EST, Height, 112, kg, 10/14/20 10:13:00... Start Date: 12/03/20 Status: Orderedferrous sulfate 325 mg oral enteric coated tablet 325 mg, 1, tablet, By Mouth, Daily, # 90 tablet, Refills 1, Tot. Refills 1, Maintenance, 10/31/20 16:01:00 EST, [id number] 164, cm, 10/14/20 10:13:00 EST, Height, 112, kg, 10/14/20 10:13:00 EST, Dry Weight Start Date: 10/31/20 Status: OrderedFlonase 50 mcg/inh nasal spray 1 sprays, Nares, Both, 2 times a day, # 16 Gm, 5 Refills, Maintenance, 07/04/20 9:01:00 EDT, [place], [facility]/pharmacy #[id number], 1 sprays Nares, Both [...] Maintenance, 12/08/20 10:55:00 EDT, EC Capsule, [facility]/pharmacy #[id number], [...] [facility]/pharmacy... Start Date: 01/02/20 Status: Orderedsenna - oral tablet 1 tablet, By Mouth, Daily at bedtime, PRN for constipation, # 60 tablet, 1 Refills, Maintenance, 12/04/20 14:28:00 EST, Tablet, [facility]/pharmacy #[id number], Partial fill upon [...] Refills, Maintenance, 07/22/20 15:24:00 EDT, Tablet, [facility]/pharmacy #[id number], 163, cm, 05/28/20 11:24:00 [...]
--- OUTSIDE RECORDS SUMMARY | 2022-06-29 21:28 | XMS_ITS | Continuity of Care Document ---
:1990 Author Organization [facility] Address [address] [place] [address]- Care Team Providers Name Role Phone Fatoumata Stokes DO Primary Care Physician [facility]counter [facility] Date(s): 12/08/20 - 01/07/21 [facility] [address] [place], [place] [address] Allergies, Adverse Reactions, Alerts Substance Reaction [...] 13:30:00 EST, Route to Pharmacy Electronically, [facility]/pharmacy #[id number], 159, cm, 11/19/19 8:17:00 EST, Height, 89.7, kg, 11/14/19 9... Start Date: 11/22/19 Status: OrderedAquaphor Healing topical ointment See Instructions, APPLY TO NIPPLE DAILY NEEDED FOR DISCOMFORT, # 50 Gm, 0 Refills, Maintenance, [facility] [id number], 7, APPLY TO NIPPLE DAILY NEEDED FOR [...] Refills, Maintenance, 01/05/21 11:50:00 EDT, REC Powder, [facility]/pharmacy #[id number], Partial fill upon patient request if t... Start Date: 01/05/21 Status: Orderedbenztropine 1 mg oral tablet 1 mg, 1, tablet, By Mouth, 2 times a day, # 60 tablet, Refills 0, Tot. Refills 0, Maintenance, 01/01/20 16:15:00 EDT, [id number] 163, cm, 01/01/20 14:39:00 EDT, Height, 86.5, kg, 12/19/19 19:14:00 EDT, Dry We... Start Date: 01/01/20 Stop Date: 01/31/20 Status: OrderedDepo-Provera Contraceptive 150 mg/mL intramuscular suspension 1 mL = 150 mg, Intramuscular, Every 3 months, # 1 mL, 3 Refills, Maintenance, 08/26/20 9:54:00 EST, Suspension, [facility], 163, cm, 05/28/20 11:24:00 EDT, Height, 100, kg, 08/04/20 11:40:00 EST, Dry Weight Start Date: 08/26/20 Status: Ordereddocusate sodium 100 mg oral capsule 100 mg, 1, capsule, By Mouth, 2 times a day, # 60 capsule, Refills 11, Tot. Refills 11, Maintenance,01/08/20 11:07:00 EDT, [id number] 163, cm, 01/02/20 7:50:00 EDT, Height, 86.5, kg, 12/19/19 19:14:00 EDT, D... Start Date: 01/08/20 Stop Date: 01/02/21 Status: OrderedEstradiol Patch 0.1 mg/24 hours twice weekly transdermal film, extended release See Instructions, APPLY 1 PATCH TOPICALLY EVERY TUESDAY & TUESDAY, # 8 patch, 2 Refills, 12/03/20 8:15:00 EST, [facility]/pharmacy #[id number], 28, APPLY 1 PATCH TOPICALLY EVERY TUESDAY & TUESDAY, 164, cm, 10/14/20 10:13:00 EST, Height, 112, kg, 10/14/20 10:13:00... Start Date: 12/03/20 Status: Orderedferrous sulfate 325 mg oral enteric coated tablet 325 mg, 1, tablet, By Mouth, Daily, # 90 tablet, Refills 1, Tot. Refills 1, Maintenance, 10/31/20 16:01:00 EST, [facility], [id number] 164, cm, 10/14/20 10:13:00 EST, Height, 112, kg, 10/14/20 10:13:00 EST, Dry Weight Start Date: 10/31/20 Status: OrderedFlonase 50 mcg/inh nasal spray 1 sprays, Nares, Both, 2 times a day, # 16 Gm, 5 Refills, Maintenance, 07/04/20 9:01:00 EDT, [place], [facility]/pharmacy #[id number], 1 sprays Nares, Both 2 times a day, 163, cm, 05/28/20 11:24:00 EDT, Height, 102.3, kg, 06/22/20 23:55:00 EDT, Dry Weight Start Date: 07/04/20 Status: Orderedlithium 300 mg oral tablet 1 tablet = 300 mg, By Mouth, Daily in AM, # 30 tablet, 0 Refills, Maintenance, 01/01/20 16:16:00 EDT, Tablet, [facility]/pharmacy #[id number], 163, cm, 01/01/20 14:39:00 EDT, Height, 86.5, kg, 12/19/19 19:14:00 EDT, Dry Weight Start Date: 01/01/20 Stop Date: 01/29/20 Status: Orderedlithium 600 mg oral capsule 1 capsule = 600 mg, By Mouth, Daily at bedtime, # 30 capsule, 0 Refills, Maintenance, 01/01/20 16:16:00 EDT, Capsule, [facility]/pharmacy #[id number], 163, cm, 01/01/20 14:39:00 EDT, Height, [...] Maintenance, 07/11/20 15:38:00 EDT, REC Powder, [facility]/pharmacy #[id number], 17 Gm By Mouth Daily,Instr:dissolve in water before taking, 163, cm, 05/28/20 11:24:00 EDT, Height, 102... Start Date: 07/11/20 Status: Orderedomeprazole 20 mg oral enteric coated capsule 1 capsule = 20 mg, By Mouth, Daily, # 30 capsule, 2 Refills, Maintenance, 12/08/20 10:55:00 EDT, EC Capsule, [facility]/pharmacy #[id number], 164, cm, 10/14/20 10:13:00 EST, Height, 112, kg, 10/14/20 10:13:00 EST, Dry Weight Start Date: 12/08/20 Status: Orderedperphenazine 16 mg oral tablet 16 mg, 1, tablet, By Mouth, 2 times a day, # 60 tablet, Refills 0, Tot. Refills 0, Maintenance, 01/01/20 16:18:00 EDT, Route to Pharmacy Electronically, [facility]/pharmacy #[id number], 163, cm, 01/01/20 14:39:00 EDT, Height, 86.5, kg, 12/19/19 19:14:00 EDT, Dry W... Start Date: 01/01/20 Status: Orderedperphenazine 8 mg oral tablet 8 mg, 1, tablet, By Mouth, 2 times a day, PRN, Indicated for severe agitation/psychosis and to be taken 8 hours apart, # 60 tablet, Refills 0, Tot. Refills 0, Maintenance, Psychosis, 01/02/20 4:30:00 EDT, Route to Pharmacy Electronically, [facility]/pharmacy... Start Date: 01/02/20 Status: Orderedsenna - oral tablet 1 tablet, By Mouth, Daily at bedtime, PRN for constipation, # 60 tablet, 1 Refills, Maintenance, 12/04/20 14:28:00 EST, Tablet, [facility]/pharmacy #[id number], Partial fill upon patient request if the prescriptionis for a schedule II opioid drug., 164, cm, 10/14... Start Date: 12/04/20 Status: Orderedsimethicone 125 mg oral capsule See Instructions, TAKE 1 CAPSULE BY MOUTH THREE TIMES A DAY AFTER MEALS AND AT BEDTIME NEEDED, # 48 capsule, 11 Refills, Maintenance, 10/21/20 9:08:00 EST, [facility]/pharmacy #[id number], 164, cm, 10/14/20 10:13:00 EST, Height, 112, kg, 10/14/20 10:13:00 EST,... Start Date: 10/21/20 Status: OrderedTums 500 mg oral tablet, chewable 1,000 mg, 2, tablet, Chew, Every 6 hours, PRN, # 120 tablet, Refills 11, Tot. Refills 11, Maintenance, for indigestion, 08/06/19 12:12:32 EST, Route to Pharmacy Electronically, [facility]/pharmacy #[id number] Start Date: 08/06/19 Stop Date: 07/01/20 Status: OrderedZyrTEC 10 mg oral tablet 1 tablet = 10 mg, By Mouth, Daily, # 30 tablet, 5 Refills, Maintenance, 07/22/20 15:24:00 EDT, Tablet, [facility]/pharmacy #[id number], 163, cm, 05/28/20 11:24:00 EDT, Height, [...]
--- OUTSIDE RECORDS SUMMARY | 2022-06-29 21:28 | XMS_ITS | Continuity of Care Document ---
:1990 Author Organization [facility] Address [address] [place] [id number]- Care Team Providers Name Role Phone Fatoumata Stokes DO Primary Care Physician Encounter [facility] Date(s): 11/10/20 - 11/11/[address] [address]- Encounter Diagnosis Schizoaffective disorder (Final) - 11/10/20 Discharge Disposition: A-D/C Home Attending Physician: Janusz Ferris MD Admitting Physician: Janusz Ferris MD Referring Physician: Not on Staff, Referring [...] 13:30:00 EST, Route to Pharmacy Electronically, [facility]/pharmacy #[id number], 159, cm, 11/19/19 8:17:00 EST, Height, 89.7, kg, 11/14/19 9... Start Date: 11/22/19 Status: OrderedAquaphor Healing topical ointment See Instructions, APPLY TO NIPPLE DAILY NEEDED FOR DISCOMFORT, # 50 Gm, 0 Refills, Maintenance, [facility] [id number], 7, APPLY TO NIPPLE DAILY NEEDED FOR DISCOMFORT, 159, cm, 12/10/19 11:02:00 EDT, Height, 86.7, kg, 12/10/19 11:02:00 EDT, Dry Weight Start Date: 12/10/19 Status: Orderedbenztropine 1 mg oral tablet 1 mg, 1, tablet, By Mouth, 2 times a day, # 60 tablet, Refills 0, Tot. Refills 0, Maintenance, 01/01/20 16:15:00 EDT, Route to Pharmacy Electronically, [facility]/pharmacy #[id number], 163, cm, 01/01/20 14:39:00 EDT, Height, 86.5, kg, 12/19/19 19:14:00 EDT, Dry We... Start Date: 01/01/20 Stop Date: 01/31/20 Status: OrderedDepo-Provera Contraceptive 150 mg/mL intramuscular suspension 1 mL = 150 mg, Intramuscular, Every 3 months, # 1 mL, 3 Refills, Maintenance, 08/26/20 9:54:00 EST, Suspension, [facility], 163, cm, 05/28/20 11:24:00 EDT, Height, 100, kg, 08/04/20 11:40:00 EST, Dry Weight Start Date: 08/26/20 Status: Ordereddocusate sodium 100 mg oral capsule 100 mg, 1, capsule, By Mouth, 2 times a day, # 60 capsule, Refills 11, Tot. Refills 11, Maintenance,01/08/20 11:07:00 EDT, Route to Pharmacy Electronically, [facility]/pharmacy #[id number], 163, cm, 01/02/20 7:50:00 EDT, Height, 86.5, kg, 12/19/19 19:14:00 EDT, D... Start Date: 01/08/20 Stop Date: 01/02/21 Status: Orderedestradiol 0.1 mg/24 hours twice weekly transdermal film, extended release 1 patch, Topically, Every Tuesday and , # 8 patch, 6 Refills, Maintenance, 05/28/20 11:01:00 EDT, [facility]/pharmacy #[id number], 163, cm, 04/03/20 14:59:00 EDT, Height, 88.9, kg, 04/03/20 14:59:00 EDT, DryWeight Start Date: 05/28/20 Status: OrderedEucerin Plus topical lotion 1 application, Topically, 2 times a day, PRN for dry skin, May apply to affected area every 6 hours as needed, up to 2 times/day, # 180 mL, 11 Refills, Maintenance, 08/06/19 12:15:04 EST, Lotion, [facility]/pharmacy #[id number] Start Date: 08/06/19 Status: Orderedferrous sulfate 325 mg oral enteric coated tablet 325 mg, 1, tablet, By Mouth, Daily, # 90 tablet, Refills 1, Tot. Refills 1, Maintenance, 10/31/20 16:01:00 EST, [id number], cm, 10/14/20 10:13:00 EST, Height, 112, kg, 10/14/20 10:13:00 EST, Dry Weight Start Date: 10/31/20 Status: OrderedFlonase 50 mcg/inh nasal spray 1 sprays, Nares, Both, 2 times a day, # 16 Gm, 5 Refills, Maintenance, 07/04/20 9:01:00 EDT, [place], [facility]/pharmacy #[id number], 1 sprays Nares, Both 2 times a day, 163, cm, 05/28/20 11:24:00 EDT, Height, 102.3, kg, 06/22/20 23:55:00 EDT, Dry Weight Start Date: 07/04/20 Status: Orderedlithium 300 mg oral tablet 1 tablet = 300 mg, By Mouth, Daily in AM, # 30 tablet, 0 Refills, Maintenance, 01/01/20 16:16:00 EDT, Tablet, [facility]/pharmacy #[id number], 163, cm, 01/01/20 14:39:00 EDT, Height, 86.5, kg, 12/19/19 19:14:00 EDT, Dry Weight Start Date: 01/01/20 Stop Date: 01/29/20 Status: Orderedlithium 600 mg oral capsule 1 capsule = 600 mg, By Mouth, Daily at bedtime, # 30 capsule, 0 Refills, Maintenance, 01/01/20 16:16:00 EDT, Capsule, [facility]/pharmacy #[id number], 163, cm, 01/01/20 14:39:00 EDT, [...] Maintenance, 07/11/20 15:38:00 EDT, REC Powder, [facility]/pharmacy #[id number], 17 Gm By Mouth Daily,Instr:dissolve in water before taking, 163, cm, 05/28/20 11:24:00 EDT, Height, 102... Start Date: 07/11/20 Status: Orderedomeprazole 20 mg oral enteric coated capsule 1 capsule = 20 mg, By Mouth, Daily, # 30 capsule, 5 Refills, Maintenance, 07/07/20 11:44:00 EDT, EC Capsule, [facility]/pharmacy #[id number], 163, cm, 05/28/20 11:24:00 EDT, Height, 102.3, kg, 06/22/20 23:55:00 EDT, Dry Weight Start Date: 07/07/20 Status: Orderedperphenazine 16 mg oral tablet 16 mg, 1, tablet, By Mouth, 2 times a day, # 60 tablet, Refills 0, Tot. Refills 0, Maintenance, 01/01/20 16:18:00 EDT, Route to Pharmacy Electronically, [facility]/pharmacy #[id number], 163, cm, 01/01/20 14:39:00 EDT, [...] 4:30:00 EDT, Route to Pharmacy Electronically, [facility]/pharmacy... Start Date: 01/02/20 Status: Orderedsimethicone 125 mg oral capsule See Instructions, TAKE 1 CAPSULE BY MOUTH THREE TIMES A DAY AFTER MEALS AND AT BEDTIME NEEDED, # 48 capsule, 11 Refills, Maintenance, 10/21/20 9:08:00 EST, [facility]/pharmacy #[id number], 164, cm, 10/14/20 10:13:00 EST, Height, 112, kg, 10/14/20 10:13:00 EST,... Start Date: 10/21/20 Status: OrderedTums 500 mg oral tablet, chewable 1,000 mg, 2, tablet, Chew, Every 6 hours, PRN, # 120 tablet, Refills 11, Tot. Refills 11, Maintenance, for indigestion, 08/06/19 12:12:32 EST, Route to Pharmacy Electronically, [facility]/pharmacy #[id number] Start Date: 08/06/19 Stop Date: 07/01/20 Status: OrderedZyrTEC 10 mg oral tablet 1 tablet = 10 mg, By Mouth, Daily, # 30 tablet, 5 Refills, Maintenance, 07/22/20 15:24:00 EDT, Tablet, [facility]/pharmacy #[id number], 163, cm, 05/28/20 11:24:00 EDT, [...] 2 Oxygen Saturation [94-100 %] 100 % 98 % (11/11/20 5:39 AM) (11/10/20 6:38 PM) Pulse Rate [55-90 bpm] 68 bpm 73 bpm (11/11/20 5:39 AM) (11/10/20 6:38 PM) Blood Pressure [90-138/55-84 mm Hg] 102/56 mm Hg 126/ 62 mm Hg (11/11/20 5:39 AM) (11/10/20 6:38 PM) Respiratory Rate [16-30 br/min] 16 br/min 18 br/mi n (11/11/20 5:39 AM) (11/10/20 6:38 PM) Temperature [96.8-100.4 DegF] 97.5 DegF 98.6 DegF (11/11/20 5:39 AM) (11/10/20 6:38 PM) Mode of Delivery (Oxygen) Room air Room air (11/11/20 5:39 AM) (11/10/20 6:38 PM) Blood pressure sites Arm, right Arm, left (11/11/20 5:39 AM) (11/10/20 6:38 PM) Temperature Route Oral Oral (11/11/20 5:39 AM) (11/10/20 6:38 PM) Social History Social History Type Response Tobacco Use: 4 or less cigarettes(le ss than 1/4 pack)/day in last 30 days. Sex Female
--- OUTSIDE RECORDS SUMMARY | 2022-06-29 21:28 | XMS_ITS | Continuity of Care Document ---
:1990 Author Organization [facility] Address [address] [place] [address]- Care Team Providers Name Role Phone Fatoumata Stokes DO Primary Care Physician [facility]counter [facility] Date(s): 06/28/21 - 06/29/[address] [address]- Encounter Diagnosis Psychiatric problem (Final) - 06/28/21 Discharge Disposition: A-D/C Home Attending Physician: Venessa Miller MD Admitting Physician: Venessa Miller MD Referring Physician: Not on Staff, Referring [...] tablet, 5 Refills, Maintenance, 02/16/21 14:03:00 EDT, [facility] STORE [id number], 164, cm, 10/14/20 10:13:00 EST, Height, 112, kg, 10/14/20 10:13:00 EST, Dry Weight Start Date: 02/16/21 Status: Ordereddocusate sodium 100 mg oral capsule 1 capsule, By Mouth, 2 times a day, # 60 capsule, 5 Refills, Maintenance, 01/12/21 20:05:00 EDT, [facility], 164, cm, 10/14/20 10:13:00 EST, Height, 112, kg, 10/14/20 10:13:00 EST, Dry Weight Start Date: 01/12/21 Status: OrderedEstradiol Patch 0.1 mg/24 hours twice weekly transdermal film, extended release See Instructions, APPLY 1 PATCH TOPICALLY EVERY TUESDAY & TUESDAY, # 8 patch, 12 Refills, 03/13/21 13:04:00 EDT, [facility]/pharmacy #[id number], 28, APPLY 1 PATCH TOPICALLY EVERY TUESDAY & TUESDAY, 164, cm, 03/13/21 9:51:00 EDT, Height, 112, kg, 10/14/20 10:13:00... Start Date: 03/13/21 Status: Orderedferrous sulfate 325 mg oral enteric coated tablet 325 mg, 1, tablet, By Mouth, Daily, # 90 tablet, Refills 1, Tot. Refills 1, Maintenance, 10/31/20 16:01:00 EST, Route to Pharmacy Electronically, [facility]/pharmacy #[id number], 164, cm, 10/14/20 10:13:00 EST, Height, 112, kg, 10/14/20 10:13:00 EST, Dry Weight Start Date: 10/31/20 Status: Orderedfluticasone 50 mcg/inh nasal spray See Instructions, USE 1 SPRAY IN EACH NOSTRIL TWICE A DAY, # 16 mL, 5 Refills, Maintenance, [facility] [address]263, 30, USE 1 SPRAY IN EACH NOSTRIL TWICE A DAY, 164, cm, 10/14/20 10:13:00 EST, Height, 112, kg, 10/14/20 10:13:00 EST, Dry Weight Start Date: 03/06/21 Status: Orderedlithium 300 mg oral tablet 1 tablet = 300 mg, By Mouth, Daily in AM, # 30 tablet, 0 Refills, Maintenance, 01/01/20 16:16:00 EDT, [id number] 163, cm, 01/01/20 14:39:00 EDT, [...] Refills, Maintenance, 04/17/21 13:04:00 EDT, [facility], 164, cm, 04/07/21 15:35:00 EDT, Height, 112, [...] [facility]/pharmacy... Start Date: 01/02/20 Status: OrderedSenna 8.6 mg oral tablet 1, tablet, By Mouth, Daily at bedtime, PRN, # 60 tablet, Refills 1, Tot. Refills 0, Acute, NEEDEDFOR CONSTIPATION, 02/19/21 17:23:00 EDT, Route to Pharmacy Electronically, [facility] 75251, 164, cm,10/14/20 10:13:00 EST, Height, 112, kg, 10/14/20... Start Date: 02/19/21 Status: Orderedsimethicone 125 mg oral capsule See Instructions, TAKE 1 CAPSULE BY MOUTH THREE TIMES A DAY AFTER MEALS AND AT BEDTIME NEEDED, # 48 capsule, 11 Refills, [facility], 164, cm, 04/07/21 15:35:00 EDT, Height, 112, [...] 3 [Reference Range]: Oxygen Saturation [94-100 %] 98 % 10 % 100 % (06/29/21 7:31 PM) *L* (06/29/21 6:30 AM) (06/29/21 2:55 PM) Pulse Rate [55-90 bpm] 80 bpm 75 bpm 80 bpm (06/29/21 7:31 PM) (06/29/21 2:55 PM) (06/29/21 6:3 0 AM) Blood Pressure [90-138/55-84 128/74 mm Hg 128/80 mm Hg 130 /80 mm Hg mm Hg] (06/29/21 7:31 PM) (06/29/21 2:55 PM) (06/29/21 6:3 0 AM) Respiratory Rate [16-30 20 br/min 16 br/min 16 br/mi n br/min] (06/29/21 7:31 PM) (06/29/21 2:55 PM) (06/29/21 6:3 0 AM) Temperature [96.8-100.4 DegF] 98.6 DegF 97.4 DegF 98 .4 DegF (06/29/21 2:55 PM) (06/29/21 6:30 AM) (06/28/21 11: 00 PM) Mode of Delivery (Oxygen) Room air Room air Room a ir (06/29/21 7:31 PM) (06/29/21 2:55 PM) (06/29/21 6:3 0 AM) Blood pressure sites Arm, right Arm, right Arm, right (06/29/21 7:31 PM) (06/29/21 2:55 PM) (06/29/21 6:3 0 AM) Temperature Route Oral Oral Oral (06/29/21 2:55 PM) (06/29/21 6:30 AM) (06/28/21 11: 00 PM) Social History Social History Type Response Tobacco Use: 4 or less cigarettes(le ss than 1/4 pack)/day in last 30 days. Sex Female
--- OUTSIDE RECORDS SUMMARY | 2022-06-29 21:28 | XMS_ITS | Continuity of Care Document ---
:1990 Author Organization [facility] Address [address] [place] [address], [address] [place] [address]- Care Team Providers Name Role Phone Fatoumata Stokes DO Primary Care Physician [facility] Date[facility] [address] [facility], [address] [place] [address]- Attending Physician: Lexx TORRES, Ashley Rock Allergies, Adverse Reactions, Alerts Substance Reaction [...] EST, Route to Pharmacy Electronically, [facility]/pharmacy #[id number], 159, cm, 11/19/19 8:17:00 EST, Height, 89.7, kg, 11/14/19 9... Start Date: 11/22/19 Status: OrderedAquaphor Healing topical ointment See Instructions, APPLY TO NIPPLE DAILY NEEDED FOR DISCOMFORT, # 50 Gm, 0 Refills, Maintenance, [facility] STORE 14828, 7, APPLY TO NIPPLE DAILY NEEDED FOR [...] mL, 3 Refills, Maintenance, 12/10/19 11:23:00 EDT,Suspension, [facility], 159, cm, 12/10/19 11:02:00 EDT, Height, 86.7, kg, 12/10/19 11:02:00 EDT, Dry Weight Start Date: 12/10/19 Status: Ordereddocusate sodium 100 mg oral capsule 100 mg, 1, capsule, By Mouth, 2 times a day, # 60 capsule, Refills 11, Tot. Refills 11, Maintenance,08/06/19 12:12:29 EST, Route to Pharmacy Electronically, [id number], [facility]/pharmacy #[id number] Start Date: 08/06/19 Stop Date: 07/31/20 Status: Orderedestradiol 0.1 mg/24 hours twice weekly transdermal film, extended release 1 patch, Topically, Every Tuesday and , # 8 patch, 6 Refills, Maintenance, 12/10/19 11:19:00 EDT, [facility]/pharmacy #[id number], 159, cm, 12/10/19 11:02:00 EDT, Height, 86.7, kg, 12/10/19 11:02:00 EDT, DryWeight Start Date: 12/10/19 Status: OrderedEucerin Plus topical lotion 1 application, Topically, 2 times a day, PRN for dry skin, May apply to affected area every 6 hours as needed, up to 2 times/day, # 180 mL, 11 Refills, Maintenance, 08/06/19 12:15:04 EST, Lotion, [facility]/pharmacy #[id number] Start Date: 08/06/19 Status: Orderedferrous sulfate 325 mg oral enteric coated tablet 325 mg, 1, tablet, By Mouth, Daily, # 30 tablet, Refills 11, Tot. Refills 11, Maintenance, 08/06/19 12:12:30 EST, Route to Pharmacy Electronically, [id number], [facility]/pharmacy #[id number] Start Date: 08/06/19 Status: Orderedlithium [...] Refills, Maintenance, 10/01/19 17:16:00 EST, EC Capsule, [facility]/pharmacy #[id number], 165.1, cm, 10/01/19 11:34:00 EST, [...] By Mouth, 2 times a day, PRN, Give at least 8 hours apart, # 28 tablet, Refills 2, Tot. Refills 2, Maintenance, Agitation Psychosis, 07/27/19 10:54:13 EDT, Print Requisition Start Date: 07/27/19 Stop Date: 09/08/19 Status: OrderedTums 500 mg oral tablet, chewable 1,000 mg, 2, tablet, Chew, Every 6 hours, PRN, # 120 tablet, Refills 11, Tot. Refills 11, Maintenance, for indigestion, 08/06/19 12:12:32 EST, Route to Pharmacy Electronically, [facility]/pharmacy #[id number] Start Date: 08/06/19 Stop Date: 07/01/20 Status: [...] to oldest [Reference Range]: 1 2 Height 159 cm (12/10/19 11:02 AM) Weight 86.7 kg 86.7 kg (12/10/19 12:19 PM) (12/10/19 11:02 AM) Body Mass Index [18.5-24.99] 34.29 *>HHI* (12/10/19 11:02 AM) Blood Pressure [90-138/55-84 mm Hg] 120/75 mm Hg 120/ 75 mm Hg (12/10/19 12:19 PM) (12/10/19 11:02 AM) Blood pressure sites Arm, right (12/10/19 11:02 AM) Dry Weight 86.7 kg (12/10/19 11:02 AM) Weight Obtained Via Standing scale Standing scale (12/10/19 12:19 PM) (12/10/19 11:02 AM) Dry Weight Obtained Via Standing scale (12/10/19 11:02 AM) Social History Social History Type Response Smoking Status Light tobacco smoker entered on: 09/26/14 Sex
--- OUTSIDE RECORDS SUMMARY | 2022-06-29 21:28 | XMS_ITS | Continuity of Care Document ---
:[address] [facility] Address [address] [place] [address]- Care Team Providers Name Role Phone Fatoumata Stokes DO Primary Care Physician [facility] Date(s): 10/27/20 - 11/26/20 [facility] [address] [place], [place] [address] Allergies, Adverse Reactions, Alerts Substance [...] 13:30:00 EST, Route to Pharmacy Electronically, [facility]/pharmacy #[id number], 159, cm, 11/19/19 8:17:00 EST, Height, 89.7, kg, 11/14/19 9... Start Date: 11/22/19 Status: OrderedAquaphor Healing topical ointment See Instructions, APPLY TO NIPPLE DAILY NEEDED FOR DISCOMFORT, # 50 Gm, 0 Refills, Maintenance, [facility] STORE 81612, 7, APPLY TO NIPPLE DAILY NEEDED FOR DISCOMFORT, 159, cm, 12/10/19 11:02:00 EDT, Height, 86.7, kg, 12/10/19 11:02:00 EDT, Dry Weight Start Date: 12/10/19 Status: Orderedbenztropine 1 mg oral tablet 1 mg, 1, tablet, By Mouth, 2 times a day, # 60 tablet, Refills 0, Tot. Refills 0, Maintenance, 01/01/20 16:15:00 EDT, Route to Pharmacy Electronically, [facility]/pharmacy #[id number], 163, cm, 01/01/20 14:39:00 EDT, Height, 86.5, kg, 12/19/19 19:14:00 EDT, Dry We... Start Date: 01/01/20 Stop Date: 01/31/20 Status: OrderedDepo-Provera Contraceptive 150 mg/mL intramuscular suspension 1 mL = 150 mg, Intramuscular, Every 3 months, # 1 mL, 3 Refills, Maintenance, 08/26/20 9:54:00 EST, Suspension, [facility], 163, cm, 05/28/20 11:24:00 EDT, Height, 100, kg, 08/04/20 11:40:00 EST, Dry Weight Start Date: 08/26/20 Status: Ordereddocusate sodium 100 mg oral capsule 100 mg, 1, capsule, By Mouth, 2 times a day, # 60 capsule, Refills 11, Tot. Refills 11, Maintenance,01/08/20 11:07:00 EDT, Route to Pharmacy Electronically, [facility]/pharmacy #[id number], 163, cm, 01/02/20 7:50:00 EDT, Height, 86.5, kg, 12/19/19 19:14:00 EDT, D... Start Date: 01/08/20 Stop Date: 01/02/21 Status: Orderedestradiol 0.1 mg/24 hours twice weekly transdermal film, extended release 1 patch, Topically, Every Tuesday and , # 8 patch, 6 Refills, Maintenance, 05/28/20 11:01:00 EDT, [facility]/pharmacy #[id number], 163, cm, 04/03/20 14:59:00 EDT, Height, 88.9, kg, 04/03/20 14:59:00 EDT, DryWeight Start Date: 05/28/20 Status: OrderedEucerin Plus topical lotion 1 application, Topically, 2 times a day, PRN for dry skin, May apply to affected area every 6 hours as needed, up to 2 times/day, # 180 mL, 11 Refills, Maintenance, 08/06/19 12:15:04 EST, Lotion, [facility]/pharmacy #[id number] Start Date: 08/06/19 Status: Orderedferrous sulfate 325 mg oral enteric coated tablet 325 mg, 1, tablet, By Mouth, Daily, # 90 tablet, Refills 1, Tot. Refills 1, Maintenance, 10/31/20 16:01:00 EST, [id number] 164, cm, 10/14/20 10:13:00 EST, Height, 112, kg, 10/14/20 10:13:00 EST, Dry Weight Start Date: 10/31/20 Status: OrderedFlonase 50 mcg/inh nasal spray 1 sprays, Nares, Both, 2 times a day, # 16 Gm, 5 Refills, Maintenance, 07/04/20 9:01:00 EDT, [place], [facility]/pharmacy #[id number], 1 sprays Nares, Both 2 times a day, 163, cm, 05/28/20 11:24:00 EDT, Height, 102.3, kg, 06/22/20 23:55:00 EDT, Dry Weight Start Date: 07/04/20 Status: Orderedlithium 300 mg oral tablet 1 tablet = 300 mg, By Mouth, Daily in AM, # 30 tablet, 0 Refills, Maintenance, 01/01/20 16:16:00 EDT, Tablet, [facility]/pharmacy #[id number], 163, cm, 01/01/20 14:39:00 EDT, Height, 86.5, kg, 12/19/19 19:14:00 EDT, Dry Weight Start Date: 01/01/20 Stop Date: 01/29/20 Status: Orderedlithium 600 mg oral capsule 1 capsule = 600 mg, By Mouth, Daily at bedtime, # 30 capsule, 0 Refills, Maintenance, 01/01/20 16:16:00 EDT, Capsule, [facility]/pharmacy #[id number], 163, cm, 01/01/20 14:39:00 [...] Maintenance, 07/11/20 15:38:00 EDT, REC Powder, [facility]/pharmacy #[id number], 17 Gm By Mouth Daily,Instr:dissolve in water before taking, 163, cm, 05/28/20 11:24:00 EDT, Height, 102... Start Date: 07/11/20 Status: Orderedomeprazole 20 mg oral enteric coated capsule 1 capsule = 20 mg, By Mouth, Daily, # 30 capsule, 5 Refills, Maintenance, 07/07/20 11:44:00 EDT, EC Capsule, [facility]/pharmacy #[id number], 163, cm, 05/28/20 11:24:00 EDT, Height, 102.3, kg, 06/22/20 23:55:00 EDT, Dry Weight Start Date: 07/07/20 Status: Orderedperphenazine 16 mg oral tablet 16 mg, 1, tablet, By Mouth, 2 times a day, # 60 tablet, Refills 0, Tot. Refills 0, Maintenance, 01/01/20 16:18:00 EDT, Route to Pharmacy Electronically, [facility]/pharmacy #[id number], 163, cm, 01/01/20 14:39:00 [...] 4:30:00 EDT, Route to Pharmacy Electronically, [facility]/pharmacy... Start Date: 01/02/20 Status: Orderedsimethicone 125 mg oral capsule See Instructions, TAKE 1 CAPSULE BY MOUTH THREE TIMES A DAY AFTER MEALS AND AT BEDTIME NEEDED, # 48 capsule, 11 Refills, Maintenance, 10/21/20 9:08:00 EST, [facility]/pharmacy #[id number], 164, cm, 10/14/20 10:13:00 EST, Height, 112, kg, 10/14/20 10:13:00 EST,... Start Date: 10/21/20 Status: OrderedTums 500 mg oral tablet, chewable 1,000 mg, 2, tablet, Chew, Every 6 hours, PRN, # 120 tablet, Refills 11, Tot. Refills 11, Maintenance, for indigestion, 08/06/19 12:12:32 EST, Route to Pharmacy Electronically, [facility]/pharmacy #[id number] Start Date: 08/06/19 Stop Date: 07/01/20 Status: OrderedZyrTEC 10 mg oral tablet 1 tablet = 10 mg, By Mouth, Daily, # 30 tablet, 5 Refills, Maintenance, 07/22/20 15:24:00 EDT, Tablet, [facility]/pharmacy #[id number], 163, cm, 05/28/20 11:24:00 [...]
--- OUTSIDE RECORDS SUMMARY | 2022-06-29 21:28 | XMS_ITS | Continuity of Care Document ---
:1990 Author Organization [facility] Address [address] [place] [id number]- Care Team Providers Name Role Phone Fatoumata Stokes DO Primary Care Physician Encounter [facility] Date(s): 06/12/21 - 06/19/21 [facility] [address], [address] [place] [id number] Attending Physician: Bebe Cintron MD Admitting Physician: Shannon Castrejon MD Referring [...] 05/28/21 7:42:00 EDT, Route to Pharmacy Electronically, [facility]/pharmacy #[id number], 164, cm, 04/07/21 15:35:00 EDT, Height, 112, kg, 10/14/20 10... Start Date: 05/28/21 Status: OrderedBenefiber oral powder for reconstitution 5 mL, By Mouth, 2 times a day, PRN as needed for constipation, dissolve in 4 to 8 oz of beverage or soft food- hot or cold, # 155 Gm, 11 Refills, Maintenance, 03/05/21 15:58:00 EDT, REC Powder, [facility]/pharmacy #[id number], Partial fill upon patient request if... Start Date: 03/05/21 Status: Orderedbenztropine 1 mg oral tablet 1 mg, 1, tablet, By Mouth, 2 times a day, # 60 tablet, Refills 0, Tot. Refills 0, Maintenance, 01/01/20 16:15:00 EDT, Route to Pharmacy Electronically, [facility]/pharmacy #[id number], 163, cm, 01/01/20 14:39:00 EDT, Height, 86.5, kg, 12/19/19 19:14:00 EDT, Dry We... Start Date: 01/01/20 Stop Date: 01/31/20 Status: Orderedcetirizine 10 mg oral tablet 1 tablet, By Mouth, Daily, # 30 tablet, 5 Refills, Maintenance, 02/16/21 14:03:00 EDT, [facility] [id number], 164, cm, 10/14/20 10:13:00 EST, Height, 112, kg, 10/14/20 10:13:00 EST, Dry Weight Start Date: 02/16/21 Status: Ordereddocusate sodium 100 mg oral capsule 1 capsule, By Mouth, 2 times a day, # 60 capsule, 5 Refills, Maintenance, 01/12/21 20:05:00 EDT, [facility], 164, cm, 10/14/20 10:13:00 EST, Height, 112, kg, 10/14/20 10:13:00 EST, Dry Weight Start Date: 01/12/21 Status: OrderedEstradiol Patch 0.1 mg/24 hours twice weekly transdermal film, extended release See Instructions, APPLY 1 PATCH TOPICALLY EVERY TUESDAY & TUESDAY, # 8 patch, 12 Refills, 03/13/21 13:04:00 EDT, [facility]/pharmacy #[id number], 28, APPLY 1 PATCH TOPICALLY EVERY TUESDAY & TUESDAY, 164, cm, 03/13/21 9:51:00 EDT, Height, 112, kg, 10/14/20 10:13:00... Start Date: 03/13/21 Status: Orderedferrous sulfate 325 mg oral enteric coated tablet 325 mg, 1, tablet, By Mouth, Daily, # 90 tablet, Refills 1, Tot. Refills 1, Maintenance, 10/31/20 16:01:00 EST, [id number], cm, 10/14/20 10:13:00 EST, Height, 112, kg, 10/14/20 10:13:00 EST, Dry Weight Start Date: 10/31/20 Status: Orderedfluticasone 50 mcg/inh nasal spray See Instructions, USE 1 SPRAY IN EACH NOSTRIL TWICE A DAY, # 16 mL, 5 Refills, Maintenance, [facility] 91052, 30, USE 1 SPRAY IN EACH NOSTRIL TWICE A DAY, 164, cm, 10/14/20 10:13:00 EST, Height, 112, kg, 10/14/20 10:13:00 EST, Dry Weight Start Date: 03/06/21 Status: Orderedlithium 300 mg oral tablet 1 tablet = 300 mg, By Mouth, Daily in AM, # 30 tablet, 0 Refills, Maintenance, 01/01/20 16:16:00 EDT, Tablet, [id number] 163, cm, 01/01/20 14:39:00 EDT, Height, 86.5, kg, 12/19/19 19:14:00 EDT, Dry Weight Start Date: 01/01/20 Stop Date: 01/29/20 Status: Orderedlithium 600 mg oral capsule 1 capsule = 600 mg, By Mouth, Daily at bedtime, # 30 capsule, 0 Refills, Maintenance, 01/01/20 16:16:00 EDT, Capsule, [facility]/pharmacy #[id number], 163, cm, 01/01/20 14:39:00 EDT, Height, 86.5, kg, 12/19/19 19:14:00 EDT, Dry Weight Start Date: 01/01/20 Stop Date: 03/01/20 Status: OrderedmedroxyPROGESTERone 150 mg/mL intramuscular suspension 1 mL, Intramuscular, Every 3 months, # 1 mL, 3 Refills, Soft Stop, 03/13/21 13:05:00 EDT, [facility]/pharmacy #[id number], 164, cm, 03/13/21 9:51:00 EDT, Height, 112, kg, 10/14/20 10:13:00 EST, Dry Weight Start Date: 03/13/21 Status: OrderedMiraLax oral powder for reconstitution = 17 Gm, By Mouth, Daily, dissolve in water before taking, # 255 Gm, 0 Refills, Maintenance, 07/11/20 15:38:00 EDT, REC Powder, [facility]/pharmacy #[id number], 17 Gm By Mouth Daily,Instr:dissolve in water before taking, 163, cm, 05/28/20 11:24:00 EDT, Height, 102... Start Date: 07/11/20 Status: Orderedomeprazole 20 mg oral enteric coated capsule 1 capsule, By Mouth, Daily, # 90 capsule, 0 Refills, Maintenance, 04/17/21 13:04:00 EDT, [facility], 164, cm, 04/07/21 15:35:00 EDT, Height, 112, kg, 10/14/20 10:13:00 EST, Dry Weight Start Date: 04/17/21 Status: Orderedperphenazine 16 mg oral tablet 16 mg, 1, tablet, By Mouth, 2 times a day, # 60 tablet, Refills 0, Tot. Refills 0, Maintenance, 01/01/20 16:18:00 EDT, Route to Pharmacy Electronically, [facility]/pharmacy #[id number], 163, cm, 01/01/20 [...] 01/02/20 4:30:00 EDT, Route to Pharmacy Electronically, [facility]/pharmacy... Start Date: 01/02/20 Status: OrderedSenna 8.6 mg oral tablet 1, tablet, By Mouth, Daily at bedtime, PRN, # 60 tablet, Refills 1, Tot. Refills 0, Acute, NEEDEDFOR CONSTIPATION, 02/19/21 17:23:00 EDT, Route to Pharmacy Electronically, [facility] 54705, 164, cm,10/14/20 10:13:00 EST, Height, 112, kg, 01/19/21... Start Date: 02/19/21 Status: Orderedsimethicone 125 mg oral capsule See Instructions, TAKE 1 CAPSULE BY MOUTH THREE TIMES A DAY AFTER MEALS AND AT BEDTIME NEEDED, # 48 capsule, 11 Refills, [facility] [address]8461, 164, cm, 04/07/21 15:35:00 EDT, Height, 112, [...] recent to oldest [Reference Range]: 1 Weight 100 kg (06/12/21 1:50 PM) Blood Pressure [90-138/55-84 mm Hg] 125/77 mm Hg (06/12/21 1:50 PM) Blood pressure sites Arm, right (06/12/21 1:50 PM) Weight Obtained Via Standing scale (06/12/21 1:50 PM) Social History Social History Type Response Tobacco Use: 4 or less cigarettes(le ss than 1/4 pack)/day in last 30 days. Sex Female
--- OUTSIDE RECORDS SUMMARY | 2022-06-29 21:28 | XMS_ITS | Continuity of Care Document ---
:1990 Author Organization [facility] Address [address] [place] [address], [address] [place] [id number]- Care Team Providers Name Role Phone Fatoumata Stokes DO Primary Care Physician Encounter [facility] Date(s): 02/09/21 - 03/11/21 [facility] [address], [address] [place] [id number] Attending Physician: Jada Torres Admitting [...] Maintenance, 03/05/21 15:58:00 EDT, REC Powder, [facility]/pharmacy #[id number], Partial fill upon patient request if... [...] Refills, Maintenance, 02/16/21 14:03:00 EDT, [id number], 164, cm, 10/14/20 10:13:00 EST, Height, 112, kg, 10/14/20 10:13:00 EST, Dry Weight Start Date: 02/16/21 Status: Ordereddocusate sodium 100 mg oral capsule 1 capsule, By Mouth, 2 times a day, # 60 capsule, 5 Refills, Maintenance, 01/12/21 20:05:00 EDT, [facility], 164, cm, 10/14/20 10:13:00 EST, Height, 112, kg, 10/14/20 10:13:00 EST, Dry Weight Start Date: 01/12/21 Status: OrderedEstradiol Patch 0.1 mg/24 hours twice weekly transdermal film, extended release See Instructions, APPLY 1 PATCH TOPICALLY EVERY TUESDAY & TUESDAY, # 8 patch, 2 Refills, 12/03/20 8:15:00 EST, [facility]/pharmacy #[id number], 28, APPLY 1 PATCH TOPICALLY EVERY TUESDAY & TUESDAY, 164, cm, 10/14/20 10:13:00 EST, Height, 112, kg, 10/14/20 10:13:00... Start Date: 12/03/20 Status: Orderedferrous sulfate 325 mg oral enteric coated tablet 325 mg, 1, tablet, By Mouth, Daily, # 90 tablet, Refills 1, Tot. Refills 1, Maintenance, 10/31/20 16:01:00 EST, Route to Pharmacy Electronically, [facility]/pharmacy #[id number], 164, cm, 10/14/20 10:13:00 EST, Height, 112, kg, 10/14/20 10:13:00 EST, Dry Weight Start Date: 10/31/20 Status: Orderedfluticasone 50 mcg/inh nasal spray See Instructions, USE 1 SPRAY IN EACH NOSTRIL TWICE A DAY, # 16 mL, 5 Refills, Maintenance, [facility] 39542, 30, USE 1 SPRAY IN EACH NOSTRIL [...] 3 Refills, Soft Stop, 03/06/21 9:34:00 EDT, [facility] 29448, 164, cm, 10/14/20 10:13:00 EST, Height, 112, kg, 10/14/20 10:13:00 EST, Dry Weight Start Date: 03/06/21 Status: OrderedMiraLax oral powder for reconstitution = 17 Gm, By Mouth, Daily, dissolve in water before taking, # 255 Gm, 0 Refills, Maintenance, 07/11/20 15:38:00 EDT, REC Powder, [facility]/pharmacy #[id number], 17 Gm By Mouth Daily,Instr:dissolve in water before taking, 163, cm, 05/28/20 11:24:00 EDT, Height, 102... Start Date: 07/11/20 Status: Orderedomeprazole 20 mg oral enteric coated capsule 1 capsule = 20 mg, By Mouth, Daily, # 90 capsule, 0 Refills, Maintenance, 02/19/21 15:58:00 EDT, EC Capsule, [facility]/pharmacy #[id number], 164, cm, 10/14/20 10:13:00 EST, Height, [facility]... Start Date: 01/02/20 Status: OrderedSenna 8.6 mg oral tablet 1, tablet, By Mouth, Daily at bedtime, PRN, # 60 tablet, Refills 1, Tot. Refills 0, Acute, NEEDEDFOR CONSTIPATION, 02/19/21 17:23:00 EDT, Route to Pharmacy Electronically, [id number], 164, cm,10/14/20 10:13:00 EST, Height, 112, kg, 10/14/20... Start Date: 02/19/21 Status: Orderedsimethicone 125 mg oral capsule See Instructions, TAKE 1 CAPSULE BY MOUTH THREE TIMES A DAY AFTER MEALS AND AT BEDTIME NEEDED, # 48 capsule, 11 Refills, Maintenance, 10/21/20 9:08:00 EST, [facility]/pharmacy #[id number], 164, cm, 10/14/20 10:13:00 EST, Height, [...]
--- OUTSIDE RECORDS SUMMARY | 2022-06-29 21:28 | XMS_ITS | Continuity of Care Document ---
:1990 Author Organization [facility] Address [address] [place] [address], [address] [place] [id number]- Care Team Providers Name Role Phone Fatoumata Stokes DO Primary Care Physician [facility] Date[facility]): 11/01/20 - 03/01/21 [facility] [employer] [address], [address] [place] [address]- Attending Physician: Lexx TORRES, Ashley Rock Allergies, [...] EST, Route to Pharmacy Electronically, [facility]/pharmacy #[id number], 159, cm, 11/19/19 8:17:00 EST, Height, 89.7, kg, 11/14/19 9... Start Date: 11/22/19 Status: OrderedAquaphor Healing topical ointment See Instructions, APPLY TO NIPPLE DAILY NEEDED FOR DISCOMFORT, # 50 Gm, 0 Refills, Maintenance, [facility] STORE [id number], 7, APPLY TO NIPPLE DAILY NEEDED FOR [...] Refills, Maintenance, 01/05/21 11:50:00 EDT, REC Powder, [facility]/pharmacy #[id number], Partial fill upon patient request if t... Start Date: 01/05/21 Status: OrderedBENEFIBER POWDER BENEFIBER POWDER, See Instructions, # 152 Gm, 0 Refills, Maintenance, FOLLOW DIRECTIONS ON BOTTLE/PACKAGE AND TAKE TWICE DAILY NEEDED FOR CONSTIPATION, 164, cm, 10/14/20 10:13:00 EST, Height, 112, kg, 10/14/20 10:13:00 EST, Dry Weight Start Date: 02/13/21 Status: Orderedbenztropine 1 mg oral tablet 1 mg, 1, tablet, By Mouth, 2 times a day, # 60 tablet, Refills 0, Tot. Refills 0, Maintenance, 01/01/20 16:15:00 EDT, Route to Pharmacy Electronically, [facility]/pharmacy #[id number], 163, cm, 01/01/20 14:39:00 EDT, Height, 86.5, kg, 12/19/19 19:14:00 EDT, Dry We... Start Date: 01/01/20 Stop Date: 01/31/20 Status: Orderedcetirizine 10 mg oral tablet 1 tablet, By Mouth, Daily, # 30 tablet, 5 Refills, Maintenance, 02/16/21 14:03:00 EDT, [facility] STORE [id number], 164, cm, 10/14/20 10:13:00 EST, Height, 112, kg, 10/14/20 10:13:00 EST, Dry Weight Start Date: 02/16/21 Status: OrderedDepo-Provera Contraceptive 150 mg/mL intramuscular suspension 1 mL = 150 mg, Intramuscular, Every 3 months, # 1 mL, 3 Refills, Maintenance, 08/26/20 9:54:00 EST, Suspension, [facility], 163, cm, 05/28/20 11:24:00 EDT, Height, 100, kg, 08/04/20 11:40:00 EST, Dry Weight Start Date: 08/26/20 Status: Ordereddocusate sodium 100 mg oral capsule 1 capsule, By Mouth, 2 times a day, # 60 capsule, 5 Refills, Maintenance, 01/12/21 20:05:00 EDT, [facility] [id number], 164, cm, 10/14/20 10:13:00 EST, Height, 112, kg, 10/14/20 10:13:00 EST, Dry Weight Start Date: 01/12/21 Status: OrderedEstradiol Patch 0.1 mg/24 hours twice weekly transdermal film, extended release See Instructions, APPLY 1 PATCH TOPICALLY EVERY TUESDAY & TUESDAY, # 8 patch, 2 Refills, 12/03/20 8:15:00 EST, [facility]/pharmacy #[id number], 28, APPLY 1 PATCH TOPICALLY EVERY TUESDAY & TUESDAY, 164, cm, 10/14/20 10:13:00 EST, Height, 112, kg, 10/14/20 10:13:00... Start Date: 12/03/20 Status: Orderedferrous sulfate 325 mg oral enteric coated tablet 325 mg, 1, tablet, By Mouth, Daily, # 90 tablet, Refills 1, Tot. Refills 1, Maintenance, 10/31/20 16:01:00 EST, Route to Pharmacy Electronically, [facility]/pharmacy #[id number], 164, cm, 10/14/20 10:13:00 EST, Height, 112, kg, 10/14/20 10:13:00 EST, Dry Weight Start Date: 10/31/20 Status: OrderedFlonase 50 mcg/inh nasal spray 1 sprays, Nares, Both, 2 times a day, # 16 Gm, 5 Refills, Maintenance, 07/04/20 9:01:00 EDT, [place], [facility]/pharmacy #[id number], 1 sprays Nares, Both 2 times a day, 163, cm, 05/28/20 11:24:00 EDT, Height, 102.3, kg, 06/22/20 23:55:00 EDT, Dry Weight Start Date: 07/04/20 Status: Orderedlithium 300 mg oral tablet 1 tablet = 300 mg, By Mouth, Daily in AM, # 30 tablet, 0 Refills, Maintenance, 01/01/20 16:16:00 EDT, Tablet, [facility]/pharmacy #[id number], 163, cm, 01/01/20 14:39:00 EDT, Height, 86.5, kg, 12/19/19 19:14:00 EDT, Dry Weight Start Date: 01/01/20 Stop Date: 01/29/20 Status: Orderedlithium 600 mg oral capsule 1 capsule = 600 mg, By Mouth, Daily at bedtime, # 30 capsule, 0 Refills, Maintenance, 01/01/20 16:16:00 EDT, Capsule, [facility]/pharmacy #[id number], 163, cm, 01/01/20 [...] 07/11/20 15:38:00 EDT, REC Powder, [facility]/pharmacy #[id number], 17 Gm By Mouth Daily,Instr:dissolve in water before taking, 163, cm, 05/28/20 11:24:00 EDT, Height, 102... Start Date: 07/11/20 Status: Orderedomeprazole 20 mg oral enteric coated capsule 1 capsule = 20 mg, By Mouth, Daily, # 90 capsule, 0 Refills, Maintenance, 02/19/21 15:58:00 EDT, EC Capsule, [facility]/pharmacy #[id number], 164, cm, 10/14/20 10:13:00 EST, Height, 112, kg, 10/14/20 10:13:00 EST, Dry Weight Start Date: 02/19/21 Stop Date: 05/20/21 Status: Orderedperphenazine 16 mg oral tablet 16 mg, 1, tablet, By Mouth, 2 times a day, # 60 tablet, Refills 0, Tot. Refills 0, Maintenance, 01/01/20 16:18:00 EDT, Route to Pharmacy Electronically, [facility]/pharmacy #[id number], 163, cm, 01/01/20 [...] EDT, Route to Pharmacy Electronically, [facility]/pharmacy... Start Date: 01/02/20 Status: OrderedSenna 8.6 mg oral tablet 1, tablet, By Mouth, Daily at bedtime, PRN, # 60 tablet, Refills 1, Tot. Refills 0, Acute, NEEDEDFOR CONSTIPATION, 02/19/21 17:23:00 EDT, Route to Pharmacy Electronically, [facility] STORE [id number], 164, cm,10/14/20 10:13:00 EST, Height, 112, kg, 10/14/20... Start Date: 02/19/21 Status: Orderedsimethicone 125 mg oral capsule See Instructions, TAKE 1 CAPSULE BY MOUTH THREE TIMES A DAY AFTER MEALS AND AT BEDTIME NEEDED, # 48 capsule, 11 Refills, Maintenance, 10/21/20 9:08:00 EST, [facility]/pharmacy #[id number], 164, cm, 10/14/20 10:13:00 EST, Height, 112, kg, 10/14/20 10:13:00 EST,... Start Date: 10/21/20 Status: OrderedTums 500 mg oral tablet, chewable 1,000 mg, 2, tablet, Chew, Every 6 hours, PRN, # 120 tablet, Refills 11, Tot. Refills 11, Maintenance, for indigestion, 08/06/19 12:12:32 EST, Route to Pharmacy Electronically, [facility]/pharmacy #[id number] Start Date: 08/06/19 [...]
--- OUTSIDE RECORDS SUMMARY | 2022-06-29 21:28 | XMS_ITS | Continuity of Care Document ---
:1990 Author Organization [facility] Address [address] [place] [address]- Care Team Providers Name Role Phone Fatoumata Stokes DO Primary Care Physician [facility] Date[facility]s): 10/14/20 - 11/13/20 [facility] [address] [place], [place] [address] [[email or web address]] Allergies, Adverse Reactions, Alerts Substance Reaction Severity [...] 11/22/19 13:30:00 EST, Route to Pharmacy Electronically, [facility]/pharmacy #[id number], 159, cm, 11/19/19 8:17:00 EST, Height, 89.7, kg, 11/14/19 9... Start Date: 11/22/19 Status: OrderedAquaphor Healing topical ointment See Instructions, APPLY TO NIPPLE DAILY NEEDED FOR DISCOMFORT, # 50 Gm, 0 Refills, Maintenance, [facility] STORE [address]2225, 7, APPLY TO NIPPLE DAILY NEEDED FOR DISCOMFORT, 159, cm, 12/10/19 11:02:00 EDT, Height, 86.7, kg, 12/10/19 11:02:00 EDT, Dry Weight Start Date: 12/10/19 Status: Orderedbenztropine 1 mg oral tablet 1 mg, 1, tablet, By Mouth, 2 times a day, # 60 tablet, Refills 0, Tot. Refills 0, Maintenance, 01/01/20 16:15:00 EDT, Route to Pharmacy Electronically, [facility]/pharmacy #[id number], 163, cm, 01/01/20 14:39:00 EDT, Height, 86.5, kg, 12/19/19 19:14:00 EDT, Dry We... Start Date: 01/01/20 Stop Date: 01/31/20 Status: OrderedDepo-Provera Contraceptive 150 mg/mL intramuscular suspension 1 mL = 150 mg, Intramuscular, Every 3 months, # 1 mL, 3 Refills, Maintenance, 08/26/20 9:54:00 EST, Suspension, [facility], 163, cm, 05/28/20 11:24:00 EDT, Height, 100, kg, 08/04/20 11:40:00 EST, Dry Weight Start Date: 08/26/20 Status: Ordereddocusate sodium 100 mg oral capsule 100 mg, 1, capsule, By Mouth, 2 times a day, # 60 capsule, Refills 11, Tot. Refills 11, Maintenance,01/08/20 11:07:00 EDT, Route to Pharmacy Electronically, [facility]/pharmacy #[id number], 163, cm, 01/02/20 7:50:00 EDT, Height, 86.5, kg, 12/19/19 19:14:00 EDT, D... Start Date: 01/08/20 Stop Date: 01/02/21 Status: Orderedestradiol 0.1 mg/24 hours twice weekly transdermal film, extended release 1 patch, Topically, Every Tuesday and , # 8 patch, 6 Refills, Maintenance, 05/28/20 11:01:00 EDT, [facility]/pharmacy #[id number], 163, cm, 04/03/20 14:59:00 EDT, Height, 88.9, kg, 04/03/20 14:59:00 EDT, DryWeight Start Date: 05/28/20 Status: OrderedEucerin Plus topical lotion 1 application, Topically, 2 times a day, PRN for dry skin, May apply to affected area every 6 hours as needed, up to 2 times/day, # 180 mL, 11 Refills, Maintenance, 08/06/19 12:15:04 EST, Lotion, [facility]/pharmacy #[id number] Start Date: 08/06/19 Status: Orderedferrous sulfate 325 mg oral enteric coated tablet 325 mg, 1, tablet, By Mouth, Daily, # 90 tablet, Refills 1, Tot. Refills 1, Maintenance, 10/31/20 16:01:00 EST, [id number] 164, cm, 10/14/20 10:13:00 EST, Height, 112, kg, 10/14/20 10:13:00 EST, Dry Weight Start Date: 10/31/20 Status: OrderedFlonase 50 mcg/inh nasal spray 1 sprays, Nares, Both, 2 times a day, # 16 Gm, 5 Refills, Maintenance, 07/04/20 9:01:00 EDT, [place], [facility]/pharmacy #[id number], 1 sprays Nares, Both 2 times a day, 163, cm, 05/28/20 11:24:00 EDT, Height, 102.3, kg, 06/22/20 23:55:00 EDT, Dry Weight Start Date: 07/04/20 Status: Orderedlithium 300 mg oral tablet 1 tablet = 300 mg, By Mouth, Daily in AM, # 30 tablet, 0 Refills, Maintenance, 01/01/20 16:16:00 EDT, Tablet, [facility]/pharmacy #[id number], 163, cm, 01/01/20 14:39:00 EDT, Height, 86.5, kg, 12/19/19 19:14:00 EDT, Dry Weight Start Date: 01/01/20 Stop Date: 01/29/20 Status: Orderedlithium 600 mg oral capsule 1 capsule = 600 mg, By Mouth, Daily at bedtime, # 30 capsule, 0 Refills, Maintenance, 01/01/20 16:16:00 EDT, Capsule, [facility]/pharmacy #[id number], 163, cm, 01/01/20 [...] Refills, Maintenance, 07/11/20 15:38:00 EDT, REC Powder, [facility]/pharmacy #[id number], 17 Gm By Mouth Daily,Instr:dissolve in water before taking, 163, cm, 05/28/20 11:24:00 EDT, Height, 102... Start Date: 07/11/20 Status: Orderedomeprazole 20 mg oral enteric coated capsule 1 capsule = 20 mg, By Mouth, Daily, # 30 capsule, 5 Refills, Maintenance, 07/07/20 11:44:00 EDT, EC Capsule, [facility]/pharmacy #[id number], 163, cm, 05/28/20 11:24:00 EDT, Height, 102.3, kg, 06/22/20 23:55:00 EDT, Dry Weight Start Date: 07/07/20 Status: Orderedperphenazine 16 mg oral tablet 16 mg, 1, tablet, By Mouth, 2 times a day, # 60 tablet, Refills 0, Tot. Refills 0, Maintenance, 01/01/20 16:18:00 EDT, Route to Pharmacy Electronically, [facility]/pharmacy #[id number], 163, cm, 01/01/20 [...] 01/02/20 4:30:00 EDT, Route to Pharmacy Electronically, [facility]/pharmacy... Start Date: 01/02/20 Status: Orderedsimethicone 125 mg oral capsule See Instructions, TAKE 1 CAPSULE BY MOUTH THREE TIMES A DAY AFTER MEALS AND AT BEDTIME NEEDED, # 48 capsule, 11 Refills, Maintenance, 10/21/20 9:08:00 EST, [facility]/pharmacy #[id number], 164, cm, 10/14/20 10:13:00 EST, Height, 112, kg, 10/14/20 10:13:00 EST,... Start Date: 10/21/20 Status: OrderedTums 500 mg oral tablet, chewable 1,000 mg, 2, tablet, Chew, Every 6 hours, PRN, # 120 tablet, Refills 11, Tot. Refills 11, Maintenance, for indigestion, 08/06/19 12:12:32 EST, Route to Pharmacy Electronically, [facility]/pharmacy #[id number] Start Date: 08/06/19 Stop Date: 07/01/20 Status: OrderedZyrTEC 10 mg oral tablet 1 tablet = 10 mg, By Mouth, Daily, # 30 tablet, 5 Refills, Maintenance, 07/22/20 15:24:00 EDT, Tablet, [facility]/pharmacy #[id number], 163, cm, 05/28/20 [...]
--- OUTSIDE RECORDS SUMMARY | 2022-06-29 21:28 | XMS_ITS | Continuity of Care Document ---
:1990 Author Organization [facility] Address [address] [place] [address]- Care Team Providers Name Role Phone Fatoumata Stokes DO Primary Care Physician [place] [facility] 09/26/19 - 09/26/[address] [address]- [facility] Encounter Diagnosis Psychosis (Final) - 09/26/19 Discharge Disposition: A-D/C Home Attending Physician: Isra Dao DO Admitting Physician: Isra Dao DO Referring Physician: Not on Staff, Referring [...] Maintenance,08/06/19 12:12:29 EST, Route to Pharmacy Electronically, [id number], [facility]/pharmacy #[id number] Start Date: 08/06/19 Stop Date: 07/31/20 [...] 08/06/19 12:12:30 EST, Route to Pharmacy Electronically, [id number], [facility]/pharmacy #[id number] Start Date: 08/06/19 [...] 08/06/19 12:12:32 EST, Route to Pharmacy Electronically, [id number], [facility]/pharmacy #[id number] Start Date: 08/06/19 Status: Ordered [...] Saturation [94-100 %] 100 % 100 % (09/26/19 5:39 PM) (09/26/19 2:44 PM) Pulse Rate [55-90 bpm] 87 bpm 84 bpm (09/26/19 5:39 PM) (09/26/19 2:44 PM) Blood Pressure [90-138/55-84 mm Hg] 129/81 mm Hg 146/ 96 mm Hg (09/26/19 5:39 PM) *H* (09/26/19 2:44 PM) Respiratory Rate [16-30 br/min] 20 br/min 18 br/mi n (09/26/19 5:39 PM) (09/26/19 2:44 PM) Temperature [96.8-100.4 DegF] 98.4 DegF 98.8 DegF (09/26/19 5:39 PM) (09/26/19 2:44 PM) Mode of Delivery (Oxygen) Room air Room air (09/26/19 5:39 PM) (09/26/19 2:44 PM) Blood pressure sites Arm, left (09/26/19 5:39 PM) Temperature Route Oral Oral (09/26/19 5:39 PM) (09/26/19 2:44 PM) Social History Social History Type Response Smoking Status Light tobacco smoker entered on: 09/26/14 Sex
--- OUTSIDE RECORDS SUMMARY | 2022-06-29 21:28 | XMS_ITS | Continuity of Care Document ---
:1990 Author Organization [facility] Address [address] [place] [address]- Care Team Providers Name Role Phone Fatoumata Stokes DO Primary Care Physician [facility] Date[facility]): 06/13/20 - 07/13/20 [facility] [address] [place] [address]- [facility] Allergies, Adverse Reactions, Alerts Substance Reaction [...] Gm, 0 Refills, Maintenance, [id number], 7, APPLY TO NIPPLE DAILY NEEDED FOR DISCOMFORT, 159, cm, 12/10/19 11:02:00 EDT, Height, 86.7, kg, 12/10/19 11:02:00 EDT, Dry Weight Start Date: 12/10/19 Status: Orderedbenztropine 1 mg oral tablet 1 mg, 1, tablet, By Mouth, 2 times a day, # 60 tablet, Refills 0, Tot. Refills 0, Maintenance, 01/01/20 16:15:00 EDT, Route to Pharmacy Electronically, [facility]/pharmacy #[id number], 163, cm, 01/01/20 14:39:00 EDT, Height, 86.5, kg, 12/19/19 19:14:00 EDT, Dry We... Start Date: 01/01/20 Stop Date: 01/31/20 Status: OrderedDepo-Provera Contraceptive 150 mg/mL intramuscular suspension 1 mL = 150 mg, Intramuscular, Every 3 months, # 1 mL, 3 Refills, Maintenance, 05/28/20 11:29:00 EDT,Suspension, [facility], 163, cm, 05/28/20 11:24:00 [...] Gm, 5 Refills, Maintenance, 07/04/20 9:01:00 EDT, [place], [facility]/pharmacy #[id number], 1 sprays Nares, Both [...] 48 capsule, 2 Refills, Acute, [facility], 163, cm, 05/28/20 11:24:00 EDT, Height, 88.9, [...] 3 Refills, Maintenance, 04/03/20 15:37:00 EDT, Tablet, [facility]/pharmacy #[id number], 163, cm, 04/03/20 14:59:00 [...]
--- OUTSIDE RECORDS SUMMARY | 2022-06-29 21:28 | XMS_ITS | Continuity of Care Document ---
:1990 Author Organization [facility] Address [address] [place] [address]- Care Team Providers Name Role Phone Fatoumata Stokes DO Primary Care Physician [facility] Date(s): 05/25/22 - 05/25/[address] [address]- Encounter Diagnosis Dental caries (Final) - 05/25/22 Discharge Disposition: A-D/C Home Attending Physician: Franci [...] 05/28/21 7:42:00 EDT, Route to Pharmacy Electronically, [facility]/pharmacy #[id number], 164, cm, 04/07/21 15:35:00 [...] a day, # 60 capsule, 5 Refills, [facility] [address]32, 163, cm, 09/24/21 16:23:00 EST, Height, 112, kg, 10/14/20 10:13:00 EST, Dry Weight Start Date: 02/03/22 Status: OrderedEstradiol Patch 0.1 mg/24 hours twice weekly transdermal film, extended release See Instructions, APPLY 1 PATCH TOPICALLY EVERY TUESDAY & TUESDAY, # 24 patch, 4 Refills, [facility] [address]8460, 84, APPLY 1 PATCH TOPICALLY EVERY TUESDAY [...] 3 Refills, Soft Stop, 03/13/21 13:05:00 EDT, [facility]/pharmacy #[id number], 164, cm, 03/13/21 9:51:00 [...] Mouth, Daily, # 90 capsule, 0 Refills, [facility] 29788, 163, cm, 09/24/21 16:23:00 EST, Height, 112, [...] FOR CONSTIPATION, # 60 tablet, 1 Refills, [facility], 163, cm, 09/24/21 16:23:00 EST, Height, 112, kg, 10/14/20 10:13:00 EST, Dry Weight Start Date: 12/28/21 Status: Orderedsimethicone 125 mg oral capsule See Instructions, TAKE 1 CAPSULE BY MOUTH THREE TIMES A DAY AFTER MEALS AND AT BEDTIME NEEDED, # 48 capsule, 11 Refills, [facility] 74414, 163, cm, 09/24/21 16:23:00 EST, Height, 112, [...] oldest 1 2 3 [Reference Range]: Height 169 cm (05/25/22 3:07 PM) Weight 95 kg (05/25/22 3:07 PM) Oxygen Saturation [94-100 %] 100 % 100 % 100 % (05/25/22 5:08 PM) (05/25/22 3:07 PM) (05/25/22 3:0 2 PM) Pulse Rate [55-90 bpm] 96 bpm 106 bpm 104 bpm *H* *H* *H* (05/25/22 5:08 PM) (05/25/22 3:07 PM) (05/25/22 3:0 2 PM) Blood Pressure [90-138/55-84 mm 137/95 mm Hg 161/92 mm Hg 160/111 mm Hg Hg] (05/25/22 5:08 PM) *H* *H* (05/25/22 3:07 PM) (05/25/22 3:02 PM) Respiratory Rate [16-30 br/min] 18 br/min 19 br/min 17 br/min (05/25/22 5:08 PM) (05/25/22 3:07 PM) (05/25/22 3:0 2 PM) Temperature [96.8-100.4 DegF] 99.0 DegF 97.7 DegF 98 .5 DegF (05/25/22 5:08 PM) (05/25/22 3:07 PM) (05/25/22 3:0 2 PM) Mode of Delivery (Oxygen) Room air Room air Room a ir (05/25/22 5:08 PM) (05/25/22 3:07 PM) (05/25/22 3:0 2 PM) Temperature Route Oral Oral Oral (05/25/22 5:08 PM) (05/25/22 3:07 PM) (05/25/22 3:0 2 PM) Dry Weight 95 kg (05/25/22 3:07 PM) Social History Social History Type Response Tobacco Use: 4 or less cigarettes(le ss than 1/4 pack)/day in last 30 days. Sex Care Team PersonnelName: Fatoumata Stokes DO Address: [address] [place] [address] [facility] [address]
--- OUTSIDE RECORDS SUMMARY | 2022-06-29 21:29 | XMS_ITS | Continuity of Care Document ---
:1990 Author Organization [facility] Address [address] [place] [address]- Care Team Providers Name Role Phone Fatoumata Stokes DO Primary Care Physician Encounter [facility] Date(s): 10/26/19 - 10/26/[address] [address]- [facility] Encounter Diagnosis Abdominal pain (Final) - 10/26/19 Discharge Disposition: A-D/C Home Attending Physician: Umesh [...] Gm, 0 Refills, Maintenance, 10/01/19 17:16:00 EST, [facility]/pharmacy #[id number], apply to nipple daily prn discomfort, 165.1, [...] Maintenance,08/06/19 12:12:29 EST, Route to Pharmacy Electronically, [id number], [facility]/pharmacy #[id number] Start Date: 08/06/19 Stop [...] 08/06/19 12:12:30 EST, Route to Pharmacy Electronically, [id number], [facility]/pharmacy #[id number] Start Date: 08/06/19 Status: Orderedlithium [...] Refills, Maintenance, 10/01/19 17:16:00 EST, EC Capsule, [facility]/pharmacy #[id number], 165.1, cm, 10/01/19 11:34:00 EST, Height, [...] 08/06/19 12:12:32 EST, Route to Pharmacy Electronically, [id number], [facility]/pharmacy #[id number] Start Date: 08/06/19 Status: Ordered Problem [...] 1 Oxygen Saturation [94-100 %] 100 % (10/26/19 12:22 AM) Pulse Rate [55-90 bpm] 79 bpm (10/26/19 12:22 AM) Blood Pressure [90-138/55-84 mm Hg] 121/76 mm Hg (10/26/19 12:22 AM) Respiratory Rate [16-30 br/min] 18 br/min (10/26/19 12:22 AM) Temperature [96.8-100.4 DegF] 98.4 DegF (10/26/19 12:22 AM) Mode of Delivery (Oxygen) Room air (10/26/19 12:22 AM) Blood pressure sites Arm, right (10/26/19 12:22 AM) Temperature Route Oral (10/26/19 12:22 AM) Social History Social History Type Response Smoking Status Light tobacco smoker entered on: 09/26/14 Sex
--- OUTSIDE RECORDS SUMMARY | 2022-06-29 21:29 | XMS_ITS | Continuity of Care Document ---
:1990 Author Organization [facility] Address [address] [place] [address]- Care Team Providers Name Role Phone Fatoumata Stokes DO Primary Care Physician [facility] Date[facility]s): 11/10/20 - 12/10/20 [facility] [address] [place], [place] [address] Allergies, Adverse Reactions, Alerts [...] Pharmacy Electronically, [facility]/pharmacy #[id number], 159, cm, 11/19/19 8:17:00 EST, Height, 89.7, kg, 11/14/19 9... Start Date: 11/22/19 Status: OrderedAquaphor Healing topical ointment See Instructions, APPLY TO NIPPLE DAILY NEEDED FOR DISCOMFORT, # 50 Gm, 0 Refills, Maintenance, [facility] [address], 7, APPLY TO NIPPLE DAILY NEEDED FOR [...] Refills, Maintenance, 12/04/20 14:32:00 EST, REC Powder, [id number], Partial fill upon patient request if [...] 3 Refills, Maintenance, 08/26/20 9:54:00 EST, Suspension, [facility], 163, cm, 05/28/20 [...] 8 patch, 2 Refills, 12/03/20 8:15:00 EST, [facility]/pharmacy #[id number], 28, APPLY 1 PATCH TOPICALLY EVERY TUESDAY & TUESDAY, 164, cm, 10/14/20 10:13:00 EST, Height, 112, kg, 10/14/20 10:13:00... Start Date: 12/03/20 Status: Orderedferrous sulfate 325 mg oral enteric coated tablet 325 mg, 1, tablet, By Mouth, Daily, # 90 tablet, Refills 1, Tot. Refills 1, Maintenance, 10/31/20 16:01:00 EST, Route to Pharmacy Electronically, [facility]/pharmacy #[id number], 164, cm, 10/14/20 10:13:00 EST, Height, 112, kg, 10/14/20 10:13:00 EST, Dry Weight Start Date: 10/31/20 Status: OrderedFlonase 50 mcg/inh nasal spray 1 sprays, Nares, Both, 2 times a day, # 16 Gm, 5 Refills, Maintenance, 07/04/20 9:01:00 EDT, [place], [facility]/pharmacy #[id number], 1 sprays [...] Refills, Maintenance, 12/08/20 10:55:00 EDT, EC Capsule, [facility]/pharmacy #[id number], 164, cm, [...] 1 Refills, Maintenance, 12/04/20 14:28:00 EST, Tablet, [facility]/pharmacy #[id number], Partial fill upon [...]
--- OUTSIDE RECORDS SUMMARY | 2022-06-29 21:29 | XMS_ITS | Continuity of Care Document ---
:1990 Author Organization [facility] Address [address] [place] [id number]- Care Team Providers Name Role Phone Fatoumata Stokes DO Primary Care Physician Encounter [facility] [place] Date(s): 11/10/19 - 11/10/[address] [address]- [facility] Encounter Diagnosis Delusions (Final) - 11/10/19 Discharge Disposition: A-D/C Home Attending Physician: Ken Bautisat MD Admitting Physician: Ken Bautista MD Referring Physician: Not on Staff, Referring [...] Gm, 0 Refills, Maintenance, 10/01/19 17:16:00 EST, [facility]/pharmacy #[id number], apply to nipple daily prn discomfort, 165.1, [...] Maintenance,08/06/19 12:12:29 EST, Route to Pharmacy Electronically, [id number], [facility]/pharmacy #[id number] Start Date: 08/06/19 Stop [...] 08/06/19 12:12:30 EST, Route to Pharmacy Electronically, [id number], [facility]/pharmacy #[id number] Start Date: 08/06/19 Status: Orderedlithium [...] Refills, Maintenance, 10/01/19 17:16:00 EST, EC Capsule, [facility]/pharmacy #[id number], 165.1, cm, 10/01/19 11:34:00 EST, [...] 08/06/19 12:12:32 EST, Route to Pharmacy Electronically, [id number], [facility]/pharmacy #[id number] Start Date: 08/06/19 Status: Ordered [...] Saturation [94-100 %] 100 % 99 % 99 % (11/10/19 10:26 AM) (11/10/19 8:56 AM) (11/10/19 7: 05 AM) Pulse Rate [55-90 bpm] 90 bpm 91 bpm 77 bpm (11/10/19 10:26 AM) *H* (11/10/19 7:05 AM) (11/10/19 8:56 AM) Blood Pressure [90-138/55-84 138/84 mm Hg 149/95 mm Hg 136 /86 mm Hg mm Hg] (11/10/19 10:26 AM) *H* (11/10/19 7:05 AM) (11/10/19 8:56 AM) Respiratory Rate [16-30 18 br/min 16 br/min 16 br/mi n br/min] (11/10/19 10:26 AM) (11/10/19 8:56 AM) (11/10/19 7: 05 AM) Temperature [96.8-100.4 DegF] 98.3 DegF 98.4 DegF 98 .5 DegF (11/10/19 10:26 AM) (11/10/19 7:05 AM) (11/10/19 4: 40 AM) Mode of Delivery (Oxygen) Room air Room air Room a ir (11/10/19 10:26 AM) (11/10/19 8:56 AM) (11/10/19 7: 05 AM) Blood pressure sites Arm, left Arm, left Arm, left (11/10/19 10:26 AM) (11/10/19 8:56 AM) (11/10/19 7: 05 AM) Temperature Route Oral Oral Oral (11/10/19 10:26 AM) (11/10/19 7:05 AM) (11/10/19 4: 40 AM) Social History Social History Type Response Smoking Status Light tobacco smoker entered on: 09/26/14 Sex
--- OUTSIDE RECORDS SUMMARY | 2022-06-29 21:29 | XMS_ITS | Continuity of Care Document ---
:1990 Author Organization [facility] Address [address] [place] [id number]- Care Team Providers Name Role Phone Fatoumata Stokes DO Primary Care Physician [place] [facility] [place]04/20 - 08/04/[address] [address] Encounter Diagnosis Ingestion of substance (Final) - 08/04/20 Suicidal thoughts (Final) - 08/04/20 Discharge Disposition: A-D/C Home Attending Physician: Lonny Erickson MD Admitting Physician: Lonny Erickson MD Referring Physician: Not on Staff, Referring [...] Papillomavirus Vaccine 10/03/09 Given Human Papillomavirus Vaccine 10/20/09 Given influ virus vac, H1N1, live(oldterm) 10/03/09 [...] EST, Route to Pharmacy Electronically, [facility]/pharmacy #[id number], 159, cm, 11/19/19 8:17:00 EST, Height, 89.7, kg, 11/14/19 9... Start Date: 11/22/19 Status: OrderedAquaphor Healing topical ointment See Instructions, APPLY TO NIPPLE DAILY NEEDED FOR DISCOMFORT, # 50 Gm, 0 Refills, Maintenance, [facility] STORE [id number], 7, APPLY TO NIPPLE DAILY NEEDED FOR DISCOMFORT, 159, cm, 12/10/19 11:02:00 EDT, Height, 86.7, kg, 12/10/19 11:02:00 EDT, Dry Weight Start Date: 12/10/19 Status: Orderedbenztropine 1 mg oral tablet 1 mg, 1, tablet, By Mouth, 2 times a day, # 60 tablet, Refills 0, Tot. Refills 0, Maintenance, 01/01/20 16:15:00 EDT, Route to Pharmacy Electronically, [facility]/pharmacy #[id number], 163, cm, 01/01/20 14:39:00 EDT, Height, 86.5, kg, 12/19/19 19:14:00 EDT, Dry We... Start Date: 01/01/20 Stop Date: 01/31/20 Status: OrderedDepo-Provera Contraceptive 150 mg/mL intramuscular suspension 1 mL = 150 mg, Intramuscular, Every 3 months, # 1 mL, 3 Refills, Maintenance, 05/28/20 11:29:00 EDT,Suspension, [facility], 163, cm, 05/28/20 11:24:00 [...] Refills, Maintenance, 05/28/20 11:01:00 EDT, [facility]/pharmacy #[id number], 163, cm, 04/03/20 14:59:00 EDT, Height, 88.9, kg, 04/03/20 14:59:00 EDT, DryWeight Start Date: 05/28/20 Status: OrderedEucerin Plus topical lotion 1 application, Topically, 2 times a day, PRN for dry skin, May apply to affected area every 6 hours as needed, up to 2 times/day, # 180 mL, 11 Refills, Maintenance, 08/06/19 12:15:04 EST, Lotion, [facility]/pharmacy #[id number] Start Date: 08/06/19 Status: Orderedferrous sulfate 325 mg oral enteric coated tablet 325 mg, 1, tablet, By Mouth, Daily, # 30 tablet, Refills 11, Tot. Refills 11, Maintenance, 01/08/20 11:07:00 EDT, Route to Pharmacy Electronically, [facility]/pharmacy #[id number], 163, cm, 01/02/20 7:50:00 EDT, Height, 86.5, kg, 12/19/19 19:14:00 EDT, Dry Weight Start Date: 01/08/20 Status: OrderedFlonase 50 mcg/inh nasal spray 1 sprays, Nares, Both, 2 times a day, # 16 Gm, 5 Refills, Maintenance, 07/04/20 9:01:00 EDT, [place], [facility]/pharmacy #[id number], 1 sprays Nares, Both 2 times a day, 163, cm, 05/28/20 11:24:00 EDT, Height, 102.3, kg, 06/22/20 23:55:00 EDT, Dry Weight Start Date: 07/04/20 Status: Orderedlithium 300 mg oral tablet 1 tablet = 300 mg, By Mouth, Daily in AM, # 30 tablet, 0 Refills, Maintenance, 01/01/20 16:16:00 EDT, Tablet, [facility]/pharmacy #[id number], 163, cm, 01/01/20 14:39:00 EDT, Height, 86.5, kg, 12/19/19 19:14:00 EDT, Dry Weight Start Date: 01/01/20 Stop Date: 01/29/20 Status: Orderedlithium 600 mg oral capsule 1 capsule = 600 mg, By Mouth, Daily at bedtime, # 30 capsule, 0 Refills, Maintenance, 01/01/20 16:16:00 EDT, Capsule, [facility]/pharmacy #[id number], 163, cm, 01/01/20 14:39:00 EDT, Height, 86.5, kg, 12/19/19 19:14:00 EDT, Dry Weight Start Date: 01/01/20 Stop Date: 03/01/20 Status: OrderedMiraLax oral powder for reconstitution = 17 Gm, By Mouth, Daily, dissolve in water before taking, # 255 Gm, 0 Refills, Maintenance, 07/11/20 15:38:00 EDT, REC Powder, [facility]/pharmacy #[id number], 17 Gm By Mouth Daily,Instr:dissolve in [...] 07/07/20 11:44:00 EDT, EC Capsule, [facility]/pharmacy #[id number], 163, cm, 05/28/20 11:24:00 EDT, Height, 102.3, kg, 06/22/20 23:55:00 EDT, Dry Weight Start Date: 07/07/20 Status: Orderedperphenazine 16 mg oral tablet 16 mg, 1, tablet, By Mouth, 2 times a day, # 60 tablet, Refills 0, Tot. Refills 0, Maintenance, 01/01/20 16:18:00 EDT, Route to Pharmacy Electronically, [facility]/pharmacy #[id number], 163, cm, 01/01/20 14:39:00 EDT, [...] EDT, Route to Pharmacy Electronically, [facility]/pharmacy... Start Date: 01/02/20 Status: Orderedsimethicone 125 mg oral capsule See Instructions, TAKE 1 CAPSULE BY MOUTH THREE TIMES A DAY AFTER MEALS AND AT BEDTIME NEEDED, # 48 capsule, 2 Refills, Physician Stop 08/23/20 8:25:00 EST, 07/23/20 8:25:00 EDT, [facility]/pharmacy #[id number],163, cm, 05/28/20 11:24:00 EDT, Height, 102.3, kg... Start Date: 07/23/20 Stop Date: 08/23/20 Status: OrderedTums 500 mg oral tablet, chewable 1,000 mg, 2, tablet, Chew, Every 6 hours, PRN, # 120 tablet, Refills 11, Tot. Refills 11, Maintenance, for indigestion, 08/06/19 12:12:32 EST, Route to Pharmacy Electronically, [facility]/pharmacy #[id number] Start Date: 08/06/19 Stop Date: 07/01/20 Status: OrderedZyrTEC 10 mg oral tablet 1 tablet = 10 mg, By Mouth, Daily, # 30 tablet, 5 Refills, Maintenance, 07/22/20 15:24:00 EDT, Tablet, [facility]/pharmacy #[id number], 163, cm, 05/28/20 11:24:00 EDT, [...] Exam Date Time Procedure Performing Provider Status 08/04/20 7:46 AM Chest 2 Views Frontal and Lat Pricilla Eddy; Geena (Verified) Notes:(Chest 2 Views Frontal and Lat) Reason For Exam: esoph perf r/o;Other: RESULT: Chest 2 Views Frontal and Lat Chest 2 Views Frontal and Lat INDICATION: Hx of Present Illness: TI SI; Reason: Other:; esoph perf r o; COMPARISON: Multiple priors most recent 06/12/2020. FINDINGS: LINES AND TUBES: None. LUNGS AND PLEURA: Clear lungs. Normal pulmonary vascularity. No pleural effusion. No pneumothorax. HEART, MEDIASTINUM AND JUANA: Heart is normal in size. Normal mediastinal and hilar contour. BONES AND SOFT TISSUES: No acute abnormality. IMPRESSION: No acute abnormality. WSN: [id number] Ordering Physician: Nakia Bull Dictated By: Adolph Bob MD Dictated Date/Time: 08/04/20 7:56 am Reviewed By: Adolph Bob MD Signed By: Adolph Bob MD Signed Date/Time: 08/04/20 7:56 am Transcribed By: TOMMY Transcribed Date/Time: 08/04/20 7:54 am Vital Signs Most recent to oldest 1 2 3 [Reference Range]: Weight 100 kg 100 kg (08/04/20 11:40 AM) (08/04/20 6:16 AM) Oxygen Saturation [94-100 100 % 96 % 100 % %] (08/04/20 11:40 AM) (08/04/20 10:25 AM) (08/04/20 6 :16 AM) Pulse Rate [55-90 bpm] 87 bpm 95 bpm 80 bpm (08/04/20 11:40 AM) *H* (08/04/20 6:16 AM) (08/04/20 10:25 AM) Blood Pressure 122/76 mm Hg 138/82 mm Hg [90-138/55-84 mm Hg] (08/04/20 11:40 AM) (08/04/20 6:16 AM) Respiratory Rate [16-30 17 br/min 20 br/min 22 br/mi n br/min] (08/04/20 11:40 AM) (08/04/20 10:25 AM) (08/04/20 6 :16 AM) Temperature [96.8-100.4 98.8 DegF DegF] (08/04/20 6:16 AM) Mode of Delivery (Oxygen) Room air Room air Room a ir (08/04/20 11:40 AM) (08/04/20 10:25 AM) (08/04/20 6 :16 AM) Blood pressure sites Arm, left (08/04/20 6:16 AM) Temperature Route Oral (08/04/20 6:16 AM) Dry Weight 100 kg 100 kg (08/04/20 11:40 AM) (08/04/20 6:16 AM) Weight Obtained Via Patient/family stated (08/04/20 6:16 AM) Dry Weight Obtained Via Patient/family stated (08/04/20 6:16 AM) Social History Social History Type Response Tobacco Use: 4 or less cigarettes(le ss than 1/4 pack)/day in last 30 days. Sex Female
--- OUTSIDE RECORDS SUMMARY | 2022-06-29 21:29 | XMS_ITS | Continuity of Care Document ---
:[address] [facility] Address [address] [place] [address]- Care Team Providers Name Role Phone Fatoumata Stokes DO Primary Care Physician Encounter [facility] Date(s): 07/04/20 - 08/03/20 [facility] [address] [place], [place] [address] Allergies, Adverse Reactions, Alerts [...] 0 Refills, Maintenance, [facility] ST[facility] [id number], 7, APPLY TO NIPPLE DAILY NEEDED FOR [...] mL, 3 Refills, Maintenance, 05/28/20 11:29:00 EDT,Suspension, [facility], 163, cm, 05/28/20 11:24:00 EDT, Height, 88.9, kg, 04/03/20 14:59:00 EDT, Dry Weight Start Date: 05/28/20 Status: Ordereddocusate sodium 100 mg oral capsule 100 mg, 1, capsule, By Mouth, 2 times a day, # 60 capsule, Refills 11, Tot. Refills 11, Maintenance,01/08/20 11:07:00 EDT, Route to Pharmacy Electronically, [facility] [...] Gm, 5 Refills, Maintenance, 07/04/20 9:01:00 EDT, [place], [facility]/pharmacy #[id number], 1 sprays Nares, [...] Stop 08/23/20 8:25:00 EST, 07/23/20 8:25:00 EDT, [facility]/pharmacy #[id number],163, cm, 05/28/20 11:24:00 EDT, Height, 102.3, [...] 5 Refills, Maintenance, 07/22/20 15:24:00 EDT, Tablet, [facility]/pharmacy #[id number], 163, cm, 05/28/20 [...]
--- OUTSIDE RECORDS SUMMARY | 2022-06-29 21:29 | XMS_ITS | Continuity of Care Document ---
:1990 Author Organization [facility] Address [address] [place] [address], [address] [place] [id number]- Care Team Providers Name Role Phone Fatoumata Stokes DO Primary Care Physician En[place] [facility] [place] Date(s): 09/04/21 - 10/11/21 [facility] [address], [address] [place] [id number] Attending Physician: Shannon Castrejon MD Referring [...] 05/28/21 7:42:00 EDT, Route to Pharmacy Electronically, [facility]/pharmacy #[id number], 164, cm, 04/07/21 15:35:00 EDT, Height, 112, kg, 10/14/20 10... Start Date: 05/28/21 Status: OrderedBenefiber oral powder for reconstitution 5 mL, By Mouth, 2 times a day, PRN as needed for constipation, dissolve in 4 to 8 oz of beverage or soft food- hot or cold, # 155 Gm, 11 Refills, Maintenance, 03/05/21 15:58:00 EDT, REC Powder, [facility]/pharmacy #[id number], Partial fill upon patient request if... Start Date: 03/05/21 Status: Orderedbenztropine 1 mg oral tablet 1 mg, 1, tablet, By Mouth, 2 times a day, # 60 tablet, Refills 0, Tot. Refills 0, Maintenance, 01/01/20 16:15:00 EDT, Route to Pharmacy Electronically, [facility]/pharmacy #[id number], 163, cm, 01/01/20 14:39:00 EDT, Height, 86.5, kg, 12/19/19 19:14:00 EDT, Dry We... Start Date: 01/01/20 Stop Date: 01/31/20 Status: Orderedcetirizine 10 mg oral tablet 1 tablet, By Mouth, Daily, # 30 tablet, 2 Refills, [facility] 313[facility], 163, cm, 09/24/21 16:23:00 EST, Height, 112, kg, 10/14/20 10:13:00 EST, Dry Weight Start Date: 09/28/21 Status: Orderedcetirizine 10 mg oral tablet 1 tablet, By Mouth, Daily, # 30 tablet, 2 Refills, [facility] [id number], 164, cm, 05/28/21 13:07:00 EDT, Height, 112, kg, 10/14/20 10:13:00 EST, Dry Weight Start Date: 07/08/21 Status: Ordereddocusate sodium 100 mg oral capsule 1 capsule, By Mouth, 2 times a day, # 60 capsule, 5 Refills, Maintenance, 07/27/21 14:02:00 EDT, [facility]/pharmacy #[id number], 164, cm, 05/28/21 13:07:00 EDT, Height, 112, kg, 10/14/20 10:13:00 EST, Dry Weight Start Date: 07/27/21 Status: OrderedEstradiol Patch 0.1 mg/24 hours twice weekly transdermal film, extended release See Instructions, APPLY 1 PATCH TOPICALLY EVERY TUESDAY & TUESDAY, # 8 patch, 12 Refills, 03/13/21 13:04:00 EDT, [facility]/pharmacy #[id number], 28, APPLY 1 PATCH TOPICALLY EVERY TUESDAY & TUESDAY, 164, cm, 03/13/21 9:51:00 EDT, Height, 112, kg, 10/14/20 10:13:00... Start Date: 03/13/21 Status: Orderedferrous sulfate 325 mg oral enteric coated tablet 1, tablet, By Mouth, Daily, # 90 tablet, Refills 1, Route to Pharmacy Electronically, [facility], 164, cm, 05/28/21 13:07:00 EDT, Height, 112, kg, 10/14/20 10:13:00 EST, Dry Weight Start Date: 07/08/21 Status: Orderedfluticasone 50 mcg/inh nasal spray See Instructions, USE 1 SPRAY IN EACH NOSTRIL TWICE A DAY, # 16 mL, 5 Refills, Maintenance, [facility] 6[facility]21, 30, USE 1 SPRAY IN EACH NOSTRIL TWICE A DAY, 164, cm, 10/14/20 10:13:00 EST, Height, 112, kg, 10/14/20 10:13:00 EST, Dry Weight Start Date: 03/06/21 Status: Orderedlithium 300 mg oral tablet 1 tablet = 300 mg, By Mouth, Daily in AM, # 30 tablet, 0 Refills, Maintenance, 01/01/20 16:16:00 EDT, Tablet, [facility]/pharmacy #[id number], 163, cm, 01/01/20 14:39:00 EDT, Height, 86.5, kg, 12/19/19 19:14:00 EDT, Dry Weight Start Date: 01/01/20 Stop Date: 01/29/20 Status: Orderedlithium 600 mg oral capsule 1 capsule = 600 mg, By Mouth, Daily at bedtime, # 30 capsule, 0 Refills, Maintenance, 01/01/20 16:16:00 EDT, Capsule, [facility]/pharmacy #[id number], 163, cm, 01/01/20 14:39:00 EDT, [...] 3 MONTHS, # 1 mL, 3 Refills, [facility], 164, cm, 05/28/21 13:07:00 EDT, Height, 112, kg, 10/14/20 10:13:00 EST, Dry Weight Start Date: 09/07/21 Status: OrderedMiraLax oral powder for reconstitution = 17 Gm, By Mouth, Daily, dissolve in water before taking, # 255 Gm, 0 Refills, Maintenance, 07/11/20 15:38:00 EDT, REC Powder, [facility]/pharmacy #[id number], 17 Gm By Mouth Daily,Instr:dissolve in water before taking, 163, cm, 05/28/20 11:24:00 EDT, Height, 102... Start Date: 07/11/20 Status: Orderedomeprazole 20 mg oral enteric coated capsule 1 capsule, By Mouth, Daily, # 90 capsule, 0 Refills, [facility] 18375, 164, cm, 05/28/21 13:07:00 EDT, Height, 112, kg, 10/14/20 10:13:00 EST, Dry Weight Start Date: 09/12/21 Status: Orderedperphenazine 16 mg oral tablet 16 mg, 1, tablet, By Mouth, 2 times a day, # 60 tablet, Refills 0, Tot. Refills 0, Maintenance, 01/01/20 16:18:00 EDT, Route to Pharmacy Electronically, [facility]/pharmacy #[id number], 163, cm, 01/01/20 14:39:00 EDT, Height, 86.5, kg, 12/19/19 19:14:00 EDT, Dry W... Start Date: 01/01/20 Status: Orderedperphenazine 8 mg oral tablet 8 mg, 1, tablet, By Mouth, 2 times a day, PRN, Indicated for severe agitation/psychosis and to be taken 8 hours apart, # 60 tablet, Refills 0, Tot. Refills 0, Maintenance, Psychosis, 01/02/20 4:30:00 EDT, Route to Pharmacy Electronically, [facility]/pharmacy... Start Date: 01/02/20 Status: OrderedSenna-Time 8.6 mg oral tablet 1 tablet, By Mouth, Daily at bedtime, PRN NEEDED FOR CONSTIPATION, # 60 tablet, 1 Refills, [id number], 164, cm, 05/28/21 13:07:00 EDT, Height, 112, kg, 10/14/20 10:13:00 EST, Dry Weight Start Date: 08/31/21 Status: Orderedsimethicone 125 mg oral capsule See Instructions, TAKE 1 CAPSULE BY MOUTH THREE TIMES A DAY AFTER MEALS AND AT BEDTIME NEEDED, # 48 capsule, 11 Refills, [facility] [id number], 164, cm, 04/07/21 15:35:00 EDT, Height, 112, [...]
--- OUTSIDE RECORDS SUMMARY | 2022-06-29 21:29 | XMS_ITS | Continuity of Care Document ---
:1990 Author Organization [facility] Address [address] [place] [address]- Care Team Providers Name Role Phone Fatoumata Stokes DO Primary Care Physician Encounter [facility] Date(s): 08/16/19 - 10/27/19 [facility] [address] [place] [address]- [facility] Attending Physician: Fatoumata Stokes DO Allergies, Adverse [...] Gm, 0 Refills, Maintenance, 10/01/19 17:16:00 EST, [facility]/pharmacy #[id number], apply to nipple daily prn discomfort, [...] Maintenance,08/06/19 12:12:29 EST, Route to Pharmacy Electronically, [id number], [facility]/pharmacy #[id number] Start Date: 08/06/19 Stop [...] 08/06/19 12:12:30 EST, Route to Pharmacy Electronically, [id number], [facility]/pharmacy #[id number] Start Date: 08/06/19 Status: [...] Refills, Maintenance, 10/01/19 17:16:00 EST, EC Capsule, [facility]/pharmacy #[id number], 165.1, cm, 10/01/19 11:34:00 EST, [...] 08/06/19 12:12:32 EST, Route to Pharmacy Electronically, [id number], [facility]/pharmacy #[id number] Start Date: 08/06/19 Status: Ordered [...]
--- OUTSIDE RECORDS SUMMARY | 2022-06-29 21:29 | XMS_ITS | Continuity of Care Document ---
:1990 Author Organization [facility] Address [address] [place] [address], [address] [place] [address]- Care Team Providers Name Role Phone Fatoumata Stokes DO Primary Care Physician [place] [facility] [place](s[place] 08/12/20 - 09/14/20 [facility] [address] [place] [address], [address] [place] [id number] Attending Physician: Shannon Castrejon MD Referring Physician: [...] 0 Refills, Maintenance, [facility] [address]97, 7, APPLY TO NIPPLE DAILY NEEDED FOR DISCOMFORT, 159, cm, 12/10/19 11:02:00 EDT, Height, 86.7, kg, 12/10/19 11:02:00 EDT, Dry Weight Start Date: 12/10/19 Status: Orderedbenztropine 1 mg oral tablet 1 mg, 1, tablet, By Mouth, 2 times a day, # 60 tablet, Refills 0, Tot. Refills 0, Maintenance, 01/01/20 16:15:00 EDT, [id number] 163, cm, 01/01/20 14:39:00 [...] Maintenance,01/08/20 11:07:00 EDT, [facility]ically, [id number] 163, cm, 01/02/20 7:50:00 EDT, Height, 86.5, kg, 12/19/19 19:14:00 EDT, D... Start Date: 01/08/20 Stop Date: 01/02/21 Status: Orderedestradiol 0.1 mg/24 hours twice weekly transdermal film, extended release 1 patch, Topically, Every Tuesday and , # 8 patch, 6 Refills, Maintenance, 05/28/20 11:01:00 EDT, [facility]/pharmacy #[id number], 163, cm, 04/03/20 [...] 01/08/20 11:07:00 EDT, Route to Pharmacy Electronically, [facility]/pharmacy #[id number], 163, cm, 01/02/20 7:50:00 EDT, Height, 86.5, kg, 12/19/19 19:14:00 EDT, Dry Weight Start Date: 01/08/20 Status: OrderedFlonase 50 mcg/inh nasal spray 1 sprays, Nares, Both, 2 times a day, # 16 Gm, 5 Refills, Maintenance, 07/04/20 9:01:00 EDT, [place], [facility]/pharmacy #[id number], 1 sprays Nares, Both [...] 07/11/20 15:38:00 EDT, REC Powder, [facility]/pharmacy #[id number], 17 Gm By Mouth Daily,Instr:dissolve in water before taking, 163, cm, 05/28/20 11:24:00 EDT, Height, 102... Start Date: 07/11/20 Status: Orderedomeprazole 20 mg oral enteric coated capsule 1 capsule = 20 mg, By Mouth, Daily, # 30 capsule, 5 Refills, Maintenance, 07/07/20 11:44:00 EDT, EC Capsule, [facility]/pharmacy #[id number], 163, cm, 05/28/20 11:24:00 EDT, Height, [...] capsule, 2 Refills, Maintenance, 08/13/20 17:29:00 EST, [facility]/pharmacy #[id number], 163, cm, 05/28/20 11:24:00 EDT, Height, [...] 5 Refills, Maintenance, 07/22/20 15:24:00 EDT, Tablet, [facility]/pharmacy #[id number], 163, cm, 05/28/20 11:24:00 EDT, Height, [...]
--- OUTSIDE RECORDS SUMMARY | 2022-06-29 21:29 | XMS_ITS | Continuity of Care Document ---
:1990 Author Organization [facility] Address [address] [place] [address]- Care Team Providers Name Role Phone Fatoumata Stokes DO Primary Care Physician [facility] Date[facility]s): 09/01/21 - 10/01/21 [facility] [address] [place], [place] [address] Allergies, Adverse Reactions, Alerts Substance [...] 7:42:00 EDT, Route to Pharmacy Electronically, [facility]/pharmacy #[id number], 164, cm, 04/07/21 15:35:00 EDT, Height, 112, kg, 10/14/20 10... Start Date: 05/28/21 Status: OrderedBenefiber oral powder for reconstitution 5 mL, By Mouth, 2 times a day, PRN as needed for constipation, dissolve in 4 to 8 oz of beverage or soft food- hot or cold, # 155 Gm, 11 Refills, Maintenance, 03/05/21 15:58:00 EDT, REC Powder, [facility]/pharmacy #[id number], Partial fill upon patient request if... Start Date: 03/05/21 Status: Orderedbenztropine 1 mg oral tablet 1 mg, 1, tablet, By Mouth, 2 times a day, # 60 tablet, Refills 0, Tot. Refills 0, Maintenance, 01/01/20 16:15:00 EDT, Route to Pharmacy Electronically, [facility]/pharmacy #[id number], 163, cm, 01/01/20 14:39:00 EDT, Height, 86.5, kg, 12/19/19 19:14:00 EDT, Dry We... Start Date: 01/01/20 Stop Date: 01/31/20 Status: Orderedcetirizine 10 mg oral tablet 1 tablet, By Mouth, Daily, # 30 tablet, 2 Refills, [id number], 163, cm, 09/24/21 16:23:00 EST, Height, 112, kg, 10/14/20 10:13:00 EST, Dry Weight Start Date: 09/28/21 Status: Orderedcetirizine 10 mg oral tablet 1 tablet, By Mouth, Daily, # 30 tablet, 2 Refills, [id number], 164, cm, 05/28/21 13:07:00 EDT, Height, 112, kg, 10/14/20 10:13:00 EST, Dry Weight Start Date: 07/08/21 Status: Ordereddocusate sodium 100 mg oral capsule 1 capsule, By Mouth, 2 times a day, # 60 capsule, 5 Refills, Maintenance, 07/27/21 14:02:00 EDT, [facility]/pharmacy #[id number], 164, cm, 05/28/21 13:07:00 EDT, Height, 112, kg, 10/14/20 10:13:00 EST, Dry Weight Start Date: 07/27/21 Status: OrderedEstradiol Patch 0.1 mg/24 hours twice weekly transdermal film, extended release See Instructions, APPLY 1 PATCH TOPICALLY EVERY TUESDAY & TUESDAY, # 8 patch, 12 Refills, 03/13/21 13:04:00 EDT, [facility]/pharmacy #[id number], 28, APPLY 1 PATCH TOPICALLY EVERY TUESDAY & TUESDAY, 164, cm, 03/13/21 9:51:00 EDT, Height, 112, kg, 10/14/20 10:13:00... Start Date: 03/13/21 Status: Orderedferrous sulfate 325 mg oral enteric coated tablet 1, tablet, By Mouth, Daily, # 90 tablet, Refills 1, Route to Pharmacy Electronically, [id number], 164, cm, 05/28/21 13:07:00 EDT, Height, 112, kg, 10/14/20 10:13:00 EST, Dry Weight Start Date: 07/08/21 Status: Orderedfluticasone 50 mcg/inh nasal spray See Instructions, USE 1 SPRAY IN EACH NOSTRIL TWICE A DAY, # 16 mL, 5 Refills, Maintenance, [facility], 30, USE 1 SPRAY IN EACH NOSTRIL TWICE A DAY, 164, cm, 10/14/20 10:13:00 EST, Height, 112, kg, 10/14/20 10:13:00 EST, Dry Weight Start Date: 03/06/21 Status: Orderedlithium 300 mg oral tablet 1 tablet = 300 mg, By Mouth, Daily in AM, # 30 tablet, 0 Refills, Maintenance, 01/01/20 16:16:00 EDT, Tablet, [facility]/pharmacy #[id number], 163, cm, 01/01/20 14:39:00 EDT, Height, 86.5, kg, 12/19/19 19:14:00 EDT, Dry Weight Start Date: 01/01/20 Stop Date: 01/29/20 Status: Orderedlithium 600 mg oral capsule 1 capsule = 600 mg, By Mouth, Daily at bedtime, # 30 capsule, 0 Refills, Maintenance, 01/01/20 16:16:00 EDT, Capsule, [facility]/pharmacy #[id number], 163, cm, 01/01/20 14:39:00 EDT, Height, 86.5, kg, 12/19/19 19:14:00 EDT, Dry Weight Start Date: 01/01/20 Stop Date: 03/01/20 Status: OrderedmedroxyPROGESTERone 150 mg/mL intramuscular suspension 1 mL, Intramuscular, Every 3 months, # 1 mL, 3 Refills, Soft Stop, 03/13/21 13:05:00 EDT, [facility]/pharmacy #[id number], 164, cm, 03/13/21 9:51:00 EDT, Height, 112, kg, 10/14/20 10:13:00 EST, Dry Weight Start Date: 03/13/21 Status: OrderedmedroxyPROGESTERone 150 mg/mL intramuscular suspension See Instructions, INJECT 1 ML INTRAMUSCULARLY EVERY 3 MONTHS, # 1 mL, 3 Refills, [facility], 164, cm, 05/28/21 13:07:00 EDT, Height, 112, kg, 10/14/20 10:13:00 EST, Dry Weight Start Date: 09/07/21 Status: OrderedMiraLax oral powder for reconstitution = 17 Gm, By Mouth, Daily, dissolve in water before taking, # 255 Gm, 0 Refills, Maintenance, 07/11/20 15:38:00 EDT, REC Powder, [facility]/pharmacy #[id number], 17 Gm By Mouth Daily,Instr:dissolve in water before taking, 163, cm, 05/28/20 11:24:00 EDT, Height, 102... Start Date: 07/11/20 Status: Orderedomeprazole 20 mg oral enteric coated capsule 1 capsule, By Mouth, Daily, # 90 capsule, 0 Refills, [id number], 164, cm, 05/28/21 13:07:00 EDT, Height, 112, kg, 10/14/20 10:13:00 EST, Dry Weight Start Date: 09/12/21 Status: Orderedperphenazine 16 mg oral tablet 16 mg, 1, tablet, By Mouth, 2 times a day, # 60 tablet, Refills 0, Tot. Refills 0, Maintenance, 01/01/20 16:18:00 EDT, Route to Pharmacy Electronically, [facility]/pharmacy #[id number], 163, cm, 01/01/20 14:39:00 EDT, [...] 4:30:00 EDT, Route to Pharmacy Electronically, [facility]/pharmacy... Start Date: 01/02/20 Status: OrderedSenna-Time 8.6 mg oral tablet 1 tablet, By Mouth, Daily at bedtime, PRN NEEDED FOR CONSTIPATION, # 60 tablet, 1 Refills, [id number], 164, cm, 05/28/21 13:07:00 EDT, Height, 112, kg, 10/14/20 10:13:00 EST, Dry Weight Start Date: 08/31/21 Status: Orderedsimethicone 125 mg oral capsule See Instructions, TAKE 1 CAPSULE BY MOUTH THREE TIMES A DAY AFTER MEALS AND AT BEDTIME NEEDED, # 48 capsule, 11 Refills, [facility], 164, cm, 04/07/21 15:35:00 EDT, Height, 112, [...]
--- OUTSIDE RECORDS SUMMARY | 2022-06-29 21:29 | XMS_ITS | Continuity of Care Document ---
:1990 Author Organization [facility] Address [address] [place] [address]- Care Team Providers Name Role Phone Fatoumata Stokes DO Primary Care Physician [facility]counter [facility]): 07/20/21 - 08/19/21 [facility] [address] [place], [place] [address] Attending Physician: Jada Torres Admitting Physician: AdmJada don Referring Physician: Admtr, ArBridgett Allergies, Adverse Reactions, Alerts Substance Reaction [...] Pharmacy Electronically, [facility]/pharmacy #[id number], 164, cm, 04/07/21 15:35:00 EDT, Height, 112, kg, 10/14/20 10... Start Date: 05/28/21 Status: OrderedBenefiber oral powder for reconstitution 5 mL, By Mouth, 2 times a day, PRN as needed for constipation, dissolve in 4 to 8 oz of beverage or soft food- hot or cold, # 155 Gm, 11 Refills, Maintenance, 03/05/21 15:58:00 EDT, REC Powder, [facility]/pharmacy #[id number], Partial fill upon patient request if... [...] # 30 tablet, 2 Refills, [id number], 164, cm, 05/28/21 13:07:00 EDT, Height, 112, kg, 10/14/20 10:13:00 EST, Dry Weight Start Date: 07/08/21 Status: Ordereddocusate sodium 100 mg oral capsule 1 capsule, By Mouth, 2 times a day, # 60 capsule, 5 Refills, Maintenance, 07/27/21 14:02:00 EDT, [facility]/pharmacy #[id number], 164, cm, 05/28/21 13:07:00 EDT, Height, 112, kg, 10/14/20 10:13:00 EST, Dry Weight Start Date: 07/27/21 Status: OrderedEstradiol Patch 0.1 mg/24 hours twice weekly transdermal film, extended release See Instructions, APPLY 1 PATCH TOPICALLY EVERY TUESDAY & TUESDAY, # 8 patch, 12 Refills, 03/13/21 13:04:00 EDT, [facility]/pharmacy #[id number], 28, APPLY 1 PATCH TOPICALLY EVERY TUESDAY & TUESDAY, 164, cm, 03/13/21 9:51:00 EDT, Height, 112, kg, 10/14/20 10:13:00... Start Date: 03/13/21 Status: Orderedferrous sulfate 325 mg oral enteric coated tablet 1, tablet, By Mouth, Daily, # 90 tablet, Refills 1, Route to Pharmacy Electronically, [id number], 164, cm, 05/28/21 13:07:00 EDT, Height, 112, kg, 10/14/20 10:13:00 EST, Dry Weight Start Date: 07/08/21 Status: Orderedfluticasone 50 mcg/inh nasal spray See Instructions, USE 1 SPRAY IN EACH NOSTRIL TWICE A DAY, # 16 mL, 5 Refills, Maintenance, [facility], 30, USE 1 SPRAY IN EACH NOSTRIL [...] Soft Stop, 03/13/21 13:05:00 EDT, [facility]/pharmacy #[id number], 164, cm, 03/13/21 9:51:00 EDT, Height, [...] Refills, Maintenance, 04/17/21 13:04:00 EDT, [facility], 164, cm, 04/07/21 15:35:00 EDT, Height, 112, [...] [facility]... Start Date: 01/02/20 Status: OrderedSenna 8.6 mg oral tablet 1, tablet, By Mouth, Daily at bedtime, PRN, # 60 tablet, Refills 1, Tot. Refills 0, Acute, NEEDEDFOR CONSTIPATION, 02/19/21 17:23:00 EDT, Route to Pharmacy Electronically, [email or web address], 164, cm,10/14/20 10:13:00 EST, Height, 112, kg, 10/14/20... Start Date: 02/19/21 Status: Orderedsimethicone 125 mg oral capsule See Instructions, TAKE 1 CAPSULE BY MOUTH THREE TIMES A DAY AFTER MEALS AND AT BEDTIME NEEDED, # 48 capsule, 11 Refills, [facility], 164, cm, 04/07/21 15:35:00 EDT, Height, 112, [...]
--- OUTSIDE RECORDS SUMMARY | 2022-06-29 21:29 | XMS_ITS | Continuity of Care Document ---
:1990 Author Organization [facility] Address [address] [place] [address]- Care Team Providers Name Role Phone Fatoumata Stokes DO Primary Care Physician [facility] Date[facility]s): 10/01/19 - 10/08/19 [facility] [address] [place] [address]- [facility] Attending Physician: Fatoumata Stokes DO Allergies, [...] Gm, 0 Refills, Maintenance, 10/01/19 17:16:00 EST, [facility]/pharmacy #[id number], apply to nipple daily prn [...] Maintenance,08/06/19 12:12:29 EST, Route to Pharmacy Electronically, [id number], [facility]/pharmacy #[id number] Start [...] 08/06/19 12:12:30 EST, Route to Pharmacy Electronically, [id number], [facility]/pharmacy #[id number] Start Date: 08/06/19 Status: Orderedlithium [...] Refills, Maintenance, 10/01/19 17:16:00 EST, EC Capsule, [facility]/pharmacy #[id number], 165.1, cm, 10/01/19 11:34:00 EST, [...] 08/06/19 12:12:32 EST, Route to Pharmacy Electronically, [id number], [facility]/pharmacy #[id number] Start Date: 08/06/19 Status: Ordered [...] recent to oldest [Reference Range]: 1 Height 165.1 cm (10/01/19 11:34 AM) Weight 89.0 kg (10/01/19 11:34 AM) Oxygen Saturation [94-100 %] 99 % (10/01/19 11:34 AM) Pulse Rate [55-90 bpm] 84 bpm (10/01/19 11:34 AM) Body Mass Index [18.5-24.99] 32.65 *>HHI* (10/01/19 11:34 AM) Blood Pressure [90-138/55-84 mm Hg] 100/54 mm Hg (10/01/19 11:34 AM) Respiratory Rate [16-30 br/min] 16 br/min (10/01/19 11:34 AM) Temperature [96.8-100.4 DegF] 98.1 DegF (10/01/19 11:34 AM) Mode of Delivery (Oxygen) Room air (10/01/19 11:34 AM) Blood pressure sites Arm, left (10/01/19 11:34 AM) Temperature Route Oral (10/01/19 11:34 AM) Weight Obtained Via Standing scale (10/01/19 11:34 AM) Social History Social History Type Response Smoking Status Light tobacco smoker entered on: 09/26/14 Sex
--- OUTSIDE RECORDS SUMMARY | 2022-06-29 21:29 | XMS_ITS | Continuity of Care Document ---
:1990 Author Organization [facility] Address [address] [place] [address]- Care Team Providers Name Role Phone Fatoumata Stokes DO Primary Care Physician [facility]counter [facility] Date(s): 08/12/20 - 09/11/20 [facility] [address] [place], [place] [address] Allergies, Adverse Reactions, Alerts Substance [...] Refills, Maintenance, [facility], 7, APPLY TO NIPPLE DAILY NEEDED FOR DISCOMFORT, 159, cm, 12/10/19 11:02:00 EDT, Height, 86.7, kg, 12/10/19 11:02:00 EDT, Dry Weight Start Date: 12/10/19 Status: Orderedbenztropine 1 mg oral tablet 1 mg, 1, tablet, By Mouth, 2 times a day, # 60 tablet, Refills 0, Tot. Refills 0, Maintenance, 01/01/20 16:15:00 EDT, Route to Pharmacy Electronically, [facility]/pharmacy #[id number], 163, cm, 01/01/20 14:39:00 EDT, Height, 86.5, kg, 12/19/19 19:14:00 EDT, Dry We... Start Date: 01/01/20 Stop Date: 01/31/20 Status: OrderedDepo-Provera Contraceptive 150 mg/mL intramuscular suspension 1 mL = 150 mg, Intramuscular, Every 3 months, # 1 mL, 3 Refills, Maintenance, 08/26/20 9:54:00 EST, Suspension, [facility], 163, cm, 05/28/20 [...] patch, 6 Refills, Maintenance, 05/28/20 11:01:00 EDT, [facility]/pharmacy #[id number], 163, cm, [...] Gm, 5 Refills, Maintenance, 07/04/20 9:01:00 EDT, [place], [facility]/pharmacy #[id number], 1 sprays Nares, [...] Maintenance, 07/11/20 15:38:00 EDT, REC Powder, [facility]/pharmacy #[id number], 17 Gm By Mouth Daily,Instr:dissolve in water before taking, 163, cm, 05/28/20 11:24:00 EDT, Height, 102... Start Date: 07/11/20 Status: Orderedomeprazole 20 mg oral enteric coated capsule 1 capsule = 20 mg, By Mouth, Daily, # 30 capsule, 5 Refills, Maintenance, 07/07/20 11:44:00 EDT, EC Capsule, [facility]/pharmacy #[id number], 163, cm, 05/28/20 11:24:00 EDT, Height, [...] capsule, 2 Refills, Maintenance, 08/13/20 17:29:00 EST, [facility]/pharmacy #[id number], 163, cm, 05/28/20 11:24:00 EDT, Height, [...] 5 Refills, Maintenance, 07/22/20 15:24:00 EDT, Tablet, [facility]/pharmacy #[id number], 163, cm, 05/28/20 11:24:00 EDT, Height, [...]
[2022-06-30] MEDS: Benztropine Mesylate 1 MG TABLET PO ×2 (00:02→13:22)
[2022-06-30] MEDS: Perphenazine 8 MG TABLET 16 MG PO ×2 (00:02→13:22)
[2022-06-30] MEDS: Lithium Carbonate ER 300 MG TABLET.ER PO ×2 (00:02→13:22)
[2022-06-30 00:10] VITALS: BP 119/77; PULSE 66; RESP 16; TEMP 36.5; O2SAT 100
--- NOTE | 2022-06-30 02:55 | PC.ADMIT ---
Admission Note: Pt arrived on the unit at 0 via stretcher from ER, who lives at a custodial. Pt is a 31yo female on a conditional voluntary commitment for SI with a plan to hang self with a cord and +AH vague in nature. Has been noncompliant with meds x1 week. Reports +AH. Denies SI/HI/VH. Contracts for safety. PMH: Alcohol Syndrome, GERD, s/p cholecysectomy on 06/16, PTSD, anxiety, and schizoaffective disorder. Denies c/o pain or discomfort. Pt reports she is tired and uncooperative with admission process and assessment. NAD. Maintained on Q15 min checks. Will continue to monitor.
[2022-06-30 08:59] LABS: Estimated Average Glucose 91 mg/dL; Hemoglobin A1c % 4.8 %
[2022-06-30 09:00] LABS: Alanine Aminotransferase 7 U/L (0-31); Albumin Level 4.1 g/dL (3.5-5.0); Alkaline Phosphatase 85 U/L (39-117); Anion Gap 14 (12-20); Aspartate Amino Transferase 10 U/L (5-31); Bilirubin Direct < 0.2 mg/dL (0.0-0.5); Bilirubin Total 0.2 mg/dL (0.0-1.0); Blood Urea Nitrogen 8 mg/dL (9-16); Carbon Dioxide 28 mmol/L (22-29); Chloride 109 mmol/L (96-108); Cholesterol 222 mg/dL; Estimated Glomerular Filt Rate > 60; Glucose Fasting 80 mg/dL (60-99); HDL Cholesterol 32 mg/dL; LDL Cholesterol Calculated 165 mg/dl; Potassium 4.5 mmol/L (3.3-5.1); Sodium 146 mmol/L (135-145); Total Protein 7.3 g/dL (6.5-8.0); Triglycerides 128 mg/dL
[2022-06-30 09:23] LABS: Free T4 (Free Thyroxine) 0.95 ng/dL (0.71-1.85); Thyroid Stimulating Hormone 1.84 uIU/mL (0.32-4.0)
--- NOTE | 2022-06-30 09:51 | HO.PM.IMCN ---
History of Present Illness Data of Consult Service Date: 06/30/22 Primary Care Provider: Unknown Physician HPI Reason for consult: Medical evaluation 31 year old female with PMH of Alcohol Syndrome, GERD, s/p cholecysectomy on 06/16, PTSD, anxiety, and schizoaffective disorder presently admitted to inpatient Psych on a conditional voluntary commitment for SI with a plan to hang self with a cord .Patient was lying in bed the whole time with RN present and would not sit up but answered questions. She voices no acute medical issues at this time with sob, no pain, no n/v , no dizziness, no chest pain or sob. Vitals are unremarkable, las noted with Na of 146 Review of Systems Review of Systems: Gen: no fever Resp: no sob, no cough CV: no chest, no BANUELOS, no leg edema GI: No n/v, no abd pain Neuro: No confusion Psyy: no SI at that moment Yes all other systems are reviewed and are negative PMFSH Social History Household Members: Caregiver Housing: Other Housing Other:: [facility] Do you presently have visiting nurse or other home services: No Patient Tobacco Use Status: Never used Tobacco Use of substances other than those prescribed or required for medical reasons: No Advance Directives: No Advance Directives Information Provided: No Do you have thoughts of harming others: None Do you have a plan to hurt others: No Plan Recently lost weight without trying: No Nutrition Risks: No Nutritional Risk Patient : No : No Poor oral hygiene: No Meds Allergies Allergy/AdvReac Type Severity Reaction Status Date / Time clozapine Allergy Unknown Verified 06/30/22 06:36 metronidazole [From Flagyl] Allergy Unknown Verified 06/30/22 06:36 paliperidone Allergy Unknown Verified 06/30/22 06:36 Active Medications: Current Medications Acetaminophen (Acetaminophen 325 Mg Tablet) 650 mg PO Q6H PRN PRN Reason: Headache/Pain Mild Scale (1-3) Al Hydroxide/Mg Hydroxide (Magnesium Hydrox/Alum Hydrox 30 Ml Oral.Susp) 30 ml PO Q6H PRN PRN Reason: Heartburn/Nausea Benztropine Mesylate (Benztropine Mesylate 1 Mg Tablet) 1 mg PO BID JUHI Last Admin: 06/30/22 00:02 Dose: 1 mg Hydroxyzine HCl (Hydroxyzine Hcl 25 Mg Tablet) 25 mg PO Q6H PRN PRN Reason: Anxiety [place] Carbonate ([place] Carbonate Er 300 Mg Tablet.Er) 300 mg PO BID [facility] Last Admin: 06/30/22 00:02 Dose: 300 mg Magnesium Hydroxide (Milk Of Magnesia 30 Ml Oral.Susp) 30 ml PO DAILY PRN PRN Reason: Constipation Nicotine Polacrilex (Nicotine Polacrilex 2 Mg Gum) 2 mg BUCCAL Q2H PRN PRN Reason: Nicotine Cravings Perphenazine (Perphenazine 8 Mg Tablet) 16 mg PO BID [facility] Last Admin: 06/30/22 00:02 Dose: 16 mg Trazodone HCl (Trazodone Hcl 50 Mg Tablet) 50 mg PO BEDTIME PRN PRN Reason: Insomnia Home Medications Medication Instructions Recorded Confirmed Last Taken Type Cogentin 1 mg PO BID 06/30/22 06/30/22 06/30/22 History Protonix 20 mg PO DAILY 06/30/22 06/30/22 Unknown History lithium carbonate 300 mg PO DAILY 06/30/22 06/30/22 Unknown History lithium carbonate 600 mg PO BEDTIME 06/30/22 06/30/22 06/30/22 00:00 History perphenazine 16 mg PO BID 06/30/22 06/30/22 06/30/22 00:00 History Physical Exam Vital Signs and Narrative: Vital Signs: Last Vital Signs Temp 97.7 F 06/30/22 00:10 Pulse 66 06/30/22 00:10 Resp 16 06/30/22 00:10 BP 119/77 06/30/22 00:10 Pulse Ox 100 06/30/22 00:10 O2 Del Method 06/30/22 00:10 Const: Other: General: limitted as she would not get although she allowed me to listen to her back lying on her back, obessive, Resp: clear CVS:unable to perform GI: unable to perform Skin: No rash noted Neuro: was grossly moving appropriately but exam limtted as stated, CN2 to 12--mostly intact, unable to assess fully as above Psych: flat, voiced no SI at that time Results Labs CBC and Chem 7: 06/30/22 08:10 Labs: Laboratory Results - last 24 hr 06/30/22 06/30/22 08:10 08:10 Anion Gap 14 Estim Creat Clear Calc TNP Estimated GFR > 60 Fasting Glucose 80 Estimat Average Glucose 91 Hemoglobin A1c % 4.8 Calcium 10.0 Total Bilirubin 0.2 Direct Bilirubin < 0.2 AST 10 ALT 7 Alkaline Phosphatase 85 Total Protein 7.3 Albumin 4.1 Triglycerides 128 Cholesterol 222 LDL Cholesterol, Calc 165 HDL Cholesterol 32 TSH 1.84 Free T4 0.95 Assessment and Plan (1) Hypernatremia: Status: Acute Plan 31 year old female with PMH of Alcohol Syndrome, GERD, s/p cholecysectomy on 06/16, PTSD, anxiety, and schizoaffective disorder presently admitted to inpatient Psych on a conditional voluntary commitment for SI with a plan to hang self with a cord , has mild hypernatremia of 146, otherwise no aucte medical issues. Plan: Encourage oral water for hypernatremia and repeat lab tomorrow. Continue Psychiatric care. Will follow up on needed basis. Thanks
[2022-06-30 10:05] LABS: Folate 6.8 ng/mL (> or = 4.0); Vitamin B12 733 pg/mL (200-900)
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
[2022-06-30 23:25] VITALS: RESP 16
--- NOTE | 2022-07-01 07:22 | PC.NURSE ---
skin-assisted in shower. noted to have multiple isreal in her abdomen. can not identify type of surgery held.
[2022-07-01 08:44] VITALS: BP 130/81; PULSE 78; RESP 18; TEMP 36.6; O2SAT 100
[2022-07-01] MEDS: Lithium Carbonate ER 300 MG TABLET.ER PO ×2 (08:45→22:56)
[2022-07-01] MEDS: Benztropine Mesylate 1 MG TABLET PO ×2 (08:45→22:56)
[2022-07-01] MEDS: Perphenazine 8 MG TABLET 16 MG PO ×2 (08:45→22:56)
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
[2022-07-02] MEDS: Lithium Carbonate ER 300 MG TABLET.ER PO ×2 (08:47→20:34)
[2022-07-02] MEDS: Benztropine Mesylate 1 MG TABLET PO ×2 (08:47→20:34)
[2022-07-02] MEDS: Perphenazine 8 MG TABLET 16 MG PO ×2 (08:47→20:34)
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
[2022-07-02 09:36] VITALS: BP 125/78; PULSE 94; RESP 16; TEMP 36.2; O2SAT 100
--- NOTE | 2022-07-02 17:57 | PC.NURSE ---
Patient has numerous isreal in abdomen from previous Cholecystectomy performed while living at the skilled nursing. Pt denies pain or discomfort. Wound is dry and intact with no drainage, isreal appear to have healed over the ends of the isreal. [employer] aware and is going to reach out to the surgeon for further follow up.
[2022-07-02 20:35] VITALS: BP 111/61; PULSE 83; TEMP 36.2; O2SAT 95
[2022-07-03] MEDS: Lithium Carbonate ER 300 MG TABLET.ER PO ×2 (08:50→20:13)
[2022-07-03] MEDS: Benztropine Mesylate 1 MG TABLET PO ×2 (08:51→20:14)
[2022-07-03] MEDS: Perphenazine 8 MG TABLET 16 MG PO ×2 (08:51→20:13)
[2022-07-03 09:51] VITALS: BP 135/85; PULSE 68; RESP 15; TEMP 36.4; O2SAT 99
--- NOTE | 2022-07-03 10:25 | HO.PSYCHPN ---
Subjective Subjective Date of Service: 07/03/22 Reason For Visit: Unspecified Schizophrenia Spectrum Etc Subjective Notes: 3 Day (07/08/22) Interim History: Pt reports hearing voices which are distracting. Zydis prn ordered. Medication Compliance: Yes Side effects from medications: No Attending Groups: Intermittent Review of Systems Acute medical concerns: No Medical Review of Systems: unchanged Mental Status Exam Mental Status Exam Patient Appearance: Disheveled Patient Orientation: Person, Place and Situation Level of Consciousness: Alert Patient Behavior: Guarded, Talkative and Good Eye Contact Mood Description: Withdrawn Affect Description: Labile Patient Cognition Impaired: Yes Ability to Follow Directions: Good Speech Pattern: Spontaneous Speech and Loud (screeching noises at times) Memory Description: Remote Impaired Hallucinations: Auditory Delusions: Present Thought Process: Distracted Thought Content: positive for Tangential Abnormal Motor Activity Signs and Symptoms: Restlessness Judgement: Poor Diagnostics Vital Signs (24Hr): Vital Signs - 24 hr 07/02/22 20:35 07/03/22 09:51 Temperature 97.2 F 97.6 F Pulse Rate 83 68 Respiratory Rate 15 Blood Pressure 111/61 135/85 Pulse Oximetry 95 99 Oxygen Delivery Method Room Air Room Air Labs Results: 06/30/22 08:10 Medications Medications Current Medications Acetaminophen (Acetaminophen 325 Mg Tablet) 650 mg PO Q6H PRN PRN Reason: Headache/Pain Mild Scale (1-3) Al Hydroxide/Mg Hydroxide (Magnesium Hydrox/Alum Hydrox 30 Ml Oral.Susp) 30 ml PO Q6H PRN PRN Reason: Heartburn/Nausea Benztropine Mesylate (Benztropine Mesylate 1 Mg Tablet) 1 mg PO BID [facility] Last Admin: 07/03/22 08:51 Dose: 1 mg Hydroxyzine HCl (Hydroxyzine Hcl 25 Mg Tablet) 25 mg PO Q6H PRN PRN Reason: Anxiety [place] Carbonate ([place] Carbonate Er 300 Mg Tablet.Er) 300 mg PO BID [facility] Last Admin: 07/03/22 08:50 Dose: 300 mg Magnesium Hydroxide (Milk Of Magnesia 30 Ml Oral.Susp) 30 ml PO DAILY PRN PRN Reason: Constipation Nicotine Polacrilex (Nicotine Polacrilex 2 Mg Gum) 2 mg BUCCAL Q2H PRN PRN Reason: Nicotine Cravings Olanzapine (Olanzapine Odt 10 Mg Tab.Rapdis) 10 mg TRANSLINGU BID PRN PRN Reason: perceptual alt, psychosis Perphenazine (Perphenazine 8 Mg Tablet) 16 mg PO BID [facility] Last Admin: 07/03/22 08:51 Dose: 16 mg Trazodone HCl (Trazodone Hcl 50 Mg Tablet) 50 mg PO BEDTIME PRN PRN Reason: Insomnia Allergies Allergies Allergy/AdvReac Type Severity Reaction Status Date / Time clozapine Allergy Unknown Verified 06/30/22 06:36 metronidazole [From Flagyl] Allergy Unknown Verified 06/30/22 06:36 paliperidone Allergy Unknown Verified 06/30/22 06:36 Assessment & Plan Assessment & Plan (1) Schizophrenia, acute: Status: Acute Code(s): F23 - Brief psychotic disorder (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 Britt is a 31 year-old woman with hx of schizophrenia, severe childhood trauma, who resides at [facility]. She was brought via EMS to [facility] ED due to increase reports of AH, SI with plan to hang herself after learning that her grandmother and her trip to [place] was cut short by few days instead of full week. Utox negative. On the unit, pt denies SI/VH/AH and asks to return home. PLAN 1. Admit to M3, CV, 15 minutes checks for safety 2. continue op medications 3. Obtain collateral information 4. Aftercare plan. 07/01 continue current medications. Pt has TD- noticeable perioral involuntary movements. 07/02 continue current tx. 07/03/22- Zydis prn for voices. I spent minutes with the patient and/or on the patient floor today, greater than?50% of which was spent counseling/coordinating care. Patient educated on: medication risk/benefits Informed Consent: further education needed Reason for contiued inpatient stay Substantial Risk for: rapid decompensation
[2022-07-03] MEDS: OLANZapine ODT 10 MG TAB.RAPDIS TRANSLINGU (10:47)
[2022-07-03 20:20] VITALS: BP 130/80; PULSE 88; RESP 16; TEMP 36.7; O2SAT 100
[2022-07-04 08:07] VITALS: BP 132/77; PULSE 90; RESP 16; TEMP 36.6; O2SAT 100
[2022-07-04] MEDS: Benztropine Mesylate 1 MG TABLET PO ×2 (08:18→20:04)
[2022-07-04] MEDS: Lithium Carbonate ER 300 MG TABLET.ER PO ×2 (08:18→20:04)
[2022-07-04] MEDS: Perphenazine 8 MG TABLET 16 MG PO ×2 (08:18→20:04)
--- NOTE | 2022-07-04 16:56 | HO.PSYCHPN ---
Subjective Subjective Date of Service: 07/04/22 Reason For Visit: Unspecified Schizophrenia Spectrum Etc Subjective Notes: 3 Day Interim History: Finds prn Olanzapine not too helpful after trial dosage. No evidence of distress today per team. Calm, interactive and talkative today, approaches tw freely today to share her input. Spending some time in bed. Team reports some conversation where she believes there is an invisable tree house on the unit that she believes she should have. No screeching noises today per team. BMP scheduled for 07/05 as Na was low when last checked. Medication Compliance: Yes Side effects from medications: No Attending Groups: Yes Review of Systems Acute medical concerns: No Medical Review of Systems: unchanged Mental Status Exam Mental Status Exam Patient Appearance: Disheveled Patient Orientation: Person, Place and Situation Level of Consciousness: Alert Patient Behavior: Guarded, Talkative and Good Eye Contact Mood Description: Withdrawn Affect Description: Labile Patient Cognition Impaired: Yes Ability to Follow Directions: Good Speech Pattern: Spontaneous Speech and Loud (screeching noises at times) Memory Description: Remote Impaired Hallucinations: Auditory Delusions: Present Thought Process: Distracted Thought Content: positive for Tangential Abnormal Motor Activity Signs and Symptoms: Restlessness Judgement: Poor Diagnostics Vital Signs (24Hr): Vital Signs - 24 hr 07/03/22 20:20 07/04/22 08:07 Temperature 98.1 F 97.9 F Pulse Rate 88 90 Respiratory Rate 16 16 Blood Pressure 130/80 132/77 Pulse Oximetry 100 100 Oxygen Delivery Method Room Air Room Air Labs Results: 06/30/22 08:10 Medications Medications Current Medications Acetaminophen (Acetaminophen 325 Mg Tablet) 650 mg PO Q6H PRN PRN Reason: Headache/Pain Mild Scale (1-3) Al Hydroxide/Mg Hydroxide (Magnesium Hydrox/Alum Hydrox 30 Ml Oral.Susp) 30 ml PO Q6H PRN PRN Reason: Heartburn/Nausea Benztropine Mesylate (Benztropine Mesylate 1 Mg Tablet) 1 mg PO BID [facility] Last Admin: 07/04/22 08:18 Dose: 1 mg Hydroxyzine HCl (Hydroxyzine Hcl 25 Mg Tablet) 25 mg PO Q6H PRN PRN Reason: Anxiety [place] Carbonate ([place] Carbonate Er 300 Mg Tablet.Er) 300 mg PO BID [facility] Last Admin: 07/04/22 08:18 Dose: 300 mg Magnesium Hydroxide (Milk Of Magnesia 30 Ml Oral.Susp) 30 ml PO DAILY PRN PRN Reason: Constipation Nicotine Polacrilex (Nicotine Polacrilex 2 Mg Gum) 2 mg BUCCAL Q2H PRN PRN Reason: Nicotine Cravings Olanzapine (Olanzapine Odt 10 Mg Tab.Rapdis) 10 mg TRANSLINGU BID PRN PRN Reason: perceptual alt, psychosis Last Admin: 07/03/22 10:47 Dose: 10 mg Perphenazine (Perphenazine 8 Mg Tablet) 16 mg PO BID [facility] Last Admin: 07/04/22 08:18 Dose: 16 mg Trazodone HCl (Trazodone Hcl 50 Mg Tablet) 50 mg PO BEDTIME PRN PRN Reason: Insomnia Allergies Allergies Allergy/AdvReac Type Severity Reaction Status Date / Time clozapine Allergy Unknown Verified 06/30/22 06:36 metronidazole [From Flagyl] Allergy Unknown Verified 06/30/22 06:36 paliperidone Allergy Unknown Verified 06/30/22 06:36 Assessment & Plan Assessment & Plan (1) Schizophrenia, acute: Status: Acute Code(s): F23 - Brief psychotic disorder (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 Britt is a 31 year-old woman with hx of schizophrenia, severe childhood trauma, who resides at [facility]. She was brought via EMS to [facility] ED due to increase reports of AH, SI with plan to hang herself after learning that her grandmother and her trip to [place] was cut short by few days instead of full week. Utox negative. On the unit, pt denies SI/VH/AH and asks to return home. PLAN 1. Admit to M3, CV, 15 minutes checks for safety 2. continue op medications 3. Obtain collateral information 4. Aftercare plan. 07/01 continue current medications. Pt has TD- noticeable perioral involuntary movements. 07/02 continue current tx. 07/03/22- Zydis prn for voices. 07/04/22- BMP ordered for 07/05. I spent minutes with the patient and/or on the patient floor today, greater than?50% of which was spent counseling/coordinating care. Patient educated on: medication risk/benefits and therapeutic strategies Informed Consent: further education needed Reason for contiued inpatient stay Substantial Risk for: rapid decompensation
[2022-07-04 19:58] VITALS: BP 127/85; PULSE 77; RESP 16; TEMP 36.3; O2SAT 99
[2022-07-05 06:00] VITALS: BP 138/80; PULSE 76; RESP 18; TEMP 36.7; O2SAT 100
[2022-07-05] MEDS: Benztropine Mesylate 1 MG TABLET PO (08:57)
[2022-07-05] MEDS: OLANZapine ODT 10 MG TAB.RAPDIS TRANSLINGU (08:57)
[2022-07-05] MEDS: Perphenazine 8 MG TABLET 16 MG PO (08:57)
[2022-07-05] MEDS: Lithium Carbonate ER 300 MG TABLET.ER PO (08:57)
[2022-07-05 09:04] LABS: Anion Gap 13 (12-20); Blood Urea Nitrogen 9 mg/dL (9-16); Calcium 9.9 mg/dL (8.4-10.2); Carbon Dioxide 27 mmol/L (22-29); Chloride 109 mmol/L (96-108); Estimated Glomerular Filt Rate > 60; Glucose Random 76 mg/dL (60-115); Potassium 4.1 mmol/L (3.3-5.1); Sodium 145 mmol/L (135-145)
[2022-07-05] MEDS: Acetaminophen 325 MG TABLET 650 MG PO (12:38)
--- NOTE | 2022-07-05 18:11 | HO.PSYCHPN ---
Subjective Subjective Date of Service: 07/05/22 Reason For Visit: Unspecified Schizophrenia Spectrum Etc Subjective Notes: 3 Day Interim History: Asking about discharge, states she is prepared to leave. Denies sx of concern. Approaches tw, engaged with milieu. Appears calm. Continues to express delusional sx which team report are out of context. Will need follow up surgery appointment upon discharge for staple removal s/p didi. Reports tooth pain from a broken tooth- pain medication ordered. Will need follow up dental appt as well. Medication Compliance: Yes Side effects from medications: No Attending Groups: Intermittent Review of Systems Acute medical concerns: No Medical Review of Systems: unchanged Mental Status Exam Mental Status Exam Patient Appearance: Disheveled Patient Orientation: Person, Place and Situation Level of Consciousness: Alert Patient Behavior: Guarded, Talkative and Good Eye Contact Mood Description: Withdrawn Affect Description: Labile Patient Cognition Impaired: Yes Ability to Follow Directions: Good Speech Pattern: Spontaneous Speech and Loud (screeching noises at times) Memory Description: Remote Impaired Hallucinations: Auditory Delusions: Present Thought Process: Distracted Thought Content: positive for Tangential Abnormal Motor Activity Signs and Symptoms: Restlessness Judgement: Poor Diagnostics Vital Signs (24Hr): Vital Signs - 24 hr 07/04/22 19:58 07/05/22 06:00 Temperature 97.4 F 98.1 F Pulse Rate 77 76 Respiratory Rate 16 18 Blood Pressure 127/85 138/80 Pulse Oximetry 99 100 Oxygen Delivery Method Room Air Room Air Labs Results: 07/05/22 08:07 Labs: Laboratory Results - last 48 hr 07/05/22 08:07 Sodium 145 Potassium 4.1 Chloride 109 H Carbon Dioxide 27 Anion Gap 13 BUN 9 Creatinine 0.93 Estim Creat Clear Calc TNP Estimated GFR > 60 Random Glucose 76 Calcium 9.9 Medications Medications Current Medications Acetaminophen (Acetaminophen 325 Mg Tablet) 650 mg PO Q6H PRN PRN Reason: Headache/Pain Mild Scale (1-3) Last Admin: 07/05/22 12:38 Dose: 650 mg Hydrocodone Bitart/Acetaminophen (Hydrocodone Bit/Acetam 5/325 Tablet) 1 tab PO Q8H PRN PRN Reason: severe dental pain Al Hydroxide/Mg Hydroxide (Magnesium Hydrox/Alum Hydrox 30 Ml Oral.Susp) 30 ml PO Q6H PRN PRN Reason: Heartburn/Nausea Benzocaine (Benzocaine 20 % Oral Gel 9 Gm Tube) 1 appl MUCOUS MEM QID PRN; Protocol PRN Reason: dental pain Benztropine Mesylate (Benztropine Mesylate 1 Mg Tablet) 1 mg PO BID [facility] Last Admin: 07/05/22 08:57 Dose: 1 mg Hydroxyzine HCl (Hydroxyzine Hcl 25 Mg Tablet) 25 mg PO Q6H PRN PRN Reason: Anxiety [place] Carbonate ([place] Carbonate Er 300 Mg Tablet.Er) 300 mg PO BID [facility] Last Admin: 07/05/22 08:57 Dose: 300 mg Magnesium Hydroxide (Milk Of Magnesia 30 Ml Oral.Susp) 30 ml PO DAILY PRN PRN Reason: Constipation Nicotine Polacrilex (Nicotine Polacrilex 2 Mg Gum) 2 mg BUCCAL Q2H PRN PRN Reason: Nicotine Cravings Olanzapine (Olanzapine Odt 10 Mg Tab.Rapdis) 10 mg TRANSLINGU BID PRN PRN Reason: perceptual alt, psychosis Last Admin: 07/05/22 08:57 Dose: 10 mg Perphenazine (Perphenazine 8 Mg Tablet) 16 mg PO BID [facility] Last Admin: 07/05/22 08:57 Dose: 16 mg Trazodone HCl (Trazodone Hcl 50 Mg Tablet) 50 mg PO BEDTIME PRN PRN Reason: Insomnia Allergies Allergies Allergy/AdvReac Type Severity Reaction Status Date / Time clozapine Allergy Unknown Verified 06/30/22 06:36 metronidazole [From Flagyl] Allergy Unknown Verified 06/30/22 06:36 paliperidone Allergy Unknown Verified 06/30/22 06:36 Assessment & Plan Assessment & Plan (1) Schizophrenia, acute: Status: Acute Code(s): F23 - Brief psychotic disorder (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 Britt is a 31 year-old woman with hx of schizophrenia, severe childhood trauma, who resides at [facility]. She was brought via EMS to [facility] ED due to increase reports of AH, SI with plan to hang herself after learning that her grandmother and her trip to [place] was cut short by few days instead of full week. Utox negative. On the unit, pt denies SI/VH/AH and asks to return home. PLAN 1. Admit to M3, CV, 15 minutes checks for safety 2. continue op medications 3. Obtain collateral information 4. Aftercare plan. 07/01 continue current medications. Pt has TD- noticeable perioral involuntary movements. 07/02 continue current tx. 07/03/22- Zydis prn for voices. 07/04/22- BMP ordered for 07/05. 07/05/22- Dental pain-pain regime ordered. BMP reviewed. I spent minutes with the patient and/or on the patient floor today, greater than?50% of which was spent counseling/coordinating care. Patient educated on: therapeutic strategies Informed Consent: further education needed Reason for contiued inpatient stay Substantial Risk for: med/psych decompensation
[2022-07-05 22:20] VITALS: BP 119/70; PULSE 74; RESP 16; TEMP 36.1; O2SAT 97
--- NOTE | 2022-07-06 03:39 | PC.NURSE ---
MEDS 07/05/22: Pt was in bed asleep since change of shift at 1900. TW made several attempts to wake pt to take bedtime medications, including removing some of pt's blankets in attempt to wake her. Pt did eventually role onto her back and remove an arm from underneath blanket to allow for blood pressure/vitals to be taken; however pt did not wake to take medications. Pt was heard moaning in response multiple times to TW asking and encouraging pt to wake briefly to receive medications, education attempted regarding importancve of
--- NOTE | 2022-07-06 03:45 | PC.NURSE ---
[facility] MEDS 07/05/22: Pt was in bed asleep since change of shift at 1900. TW made several attempts to wake pt to take bedtime medications, including removing some of pt's blankets in attempt to wake her. Pt did eventually role onto her back and remove an arm from underneath blanket to allow for blood pressure/vitals to be taken. Pt was heard moaning in response multiple times to TW asking and encouraging pt to wake briefly to receive medications; education attempted regarding importance of taking meds and med compliance. Pt did not receive medications due to pt's refusal to cooperative with TW's multiple attempts to wake pt.
[2022-07-06] MEDS: Lithium Carbonate ER 300 MG TABLET.ER PO ×2 (08:04→21:29)
[2022-07-06] MEDS: HYDROcodone Bit/Acetam 5/325 TABLET 1 TAB PO (08:05)
[2022-07-06] MEDS: Perphenazine 8 MG TABLET 16 MG PO ×2 (08:05→21:29)
[2022-07-06] MEDS: Benztropine Mesylate 1 MG TABLET PO ×2 (08:05→21:29)
[2022-07-06 08:15] VITALS: BP 185/97; PULSE 98; RESP 18; TEMP 36.6; O2SAT 98
--- NOTE | 2022-07-06 12:32 | HO.PSYCHPN ---
Subjective Subjective Date of Service: 07/06/22 Reason For Visit: Unspecified Schizophrenia Spectrum Etc Subjective Notes: Conditional Voluntary Interim History: Pt reports she is sleeping and eating well. Nursing concerned about over sedation with addition of 2 new meds- prn olanzapine and percocet for tooth pain. Pt reports she is doing great. She reports hearing voices of servants, which is baseline. No SI/HI. No behavioral concerns. tooth pain according to pt resolvedm but if it return, recommend antibiotic, not opioid med. Review of Systems Review of Systems Gen: no fever Resp: no sob, no cough CV: no chest, no BANUELOS, no leg edema GI: No n/v, no abd pain Neuro: No confusion Psyy: no SI at that moment Yes all other systems are reviewed and are negative Mental Status Exam Mental Status Exam Narrative: Appearance: strabismus, wearing hospital gown, fair hygiene in NAD Behavior:cooperative psychomotor:no agitation or retardation noted Speech:clear, mumbles at times, regular rate/rhythm/volume, spontaneous Thought process:tangential Thought content:hearing voices of servants, wanting to go home soon Mood: good Affect: congruent, constricted SI:denies HI:denies VH/AH:hearing AH of servants Delusions:paranoia, thinking someone stole from her Insight/judgment:poor x 2. Memory/cog: alert, oriented x 3. intellectual disability. Diagnostics Vital Signs (24Hr): Vital Signs - 24 hr 07/05/22 22:20 07/06/22 08:15 Temperature 97.0 F 97.9 F Pulse Rate 74 98 Respiratory Rate 16 18 Blood Pressure 119/70 185/97 H Pulse Oximetry 97 98 Oxygen Delivery Method Room Air Room Air Labs Results: 07/05/22 08:07 Labs: Laboratory Results - last 48 hr 07/05/22 08:07 Sodium 145 Potassium 4.1 Chloride 109 H Carbon Dioxide 27 Anion Gap 13 BUN 9 Creatinine 0.93 Estim Creat Clear Calc TNP Estimated GFR > 60 Random Glucose 76 Calcium 9.9 Medications Medications Current Medications Acetaminophen (Acetaminophen 325 Mg Tablet) 650 mg PO Q6H PRN PRN Reason: Headache/Pain Mild Scale (1-3) Last Admin: 07/06/22 16:18 Dose: 650 mg Al Hydroxide/Mg Hydroxide (Magnesium Hydrox/Alum Hydrox 30 Ml Oral.Susp) 30 ml PO Q6H PRN PRN Reason: Heartburn/Nausea Benzocaine (Benzocaine 20 % Oral Gel 9 Gm Tube) 1 appl MUCOUS MEM QID PRN; Protocol PRN Reason: dental pain Last Admin: 07/06/22 12:57 Dose: 1 appl Benztropine Mesylate (Benztropine Mesylate 1 Mg Tablet) 1 mg PO BID [facility] Last Admin: 07/06/22 08:05 Dose: 1 mg Hydroxyzine HCl (Hydroxyzine Hcl 25 Mg Tablet) 25 mg PO Q6H PRN PRN Reason: Anxiety Roy Carbonate (Roy Carbonate Er 300 Mg Tablet.Er) 300 mg PO BID [facility] Last Admin: 07/06/22 08:04 Dose: 300 mg Magnesium Hydroxide (Milk Of Magnesia 30 Ml Oral.Susp) 30 ml PO DAILY PRN PRN Reason: Constipation Nicotine Polacrilex (Nicotine Polacrilex 2 Mg Gum) 2 mg BUCCAL Q2H PRN PRN Reason: Nicotine Cravings Perphenazine (Perphenazine 8 Mg Tablet) 16 mg PO BID [facility] Last Admin: 07/06/22 08:05 Dose: 16 mg Trazodone HCl (Trazodone Hcl 50 Mg Tablet) 50 mg PO BEDTIME PRN PRN Reason: Insomnia Allergies Allergies Allergy/AdvReac Type Severity Reaction Status Date / Time clozapine Allergy Unknown Verified 06/30/22 06:36 metronidazole [From Flagyl] Allergy Unknown Verified 06/30/22 06:36 paliperidone Allergy Unknown Verified 06/30/22 06:36 Assessment & Plan Assessment & Plan (1) Schizophrenia, acute: Status: Acute Code(s): F23 - Brief psychotic disorder (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 Britt is a 31 year-old woman with hx of schizophrenia, severe childhood trauma, who resides at [facility]. She was brought via EMS to [facility] ED due to increase reports of AH, SI with plan to hang herself after learning that her grandmother and her trip to [place] was cut short by few days instead of full week. Utox negative. On the unit, pt denies SI/VH/AH and asks to return home. PLAN 1. Admit to , CV, 15 minutes checks for safety 2. continue op medications 3. Obtain collateral information 4. Aftercare plan. 10/6 continue current medications. Pt has TD- noticeable perioral involuntary movements. 07/02 continue current tx. 07/03/22- Zydis prn for voices. 07/04/22- BMP ordered for 07/05. 07/05/22- Dental pain-pain regime ordered. BMP reviewed. 07/06- d/c olanzapine oversedation. d/c percocet- will rx antibiotic for tooth pain instead if pt report tooth pain again- which she denies today. I spent minutes with the patient and/or on the patient floor today, greater than?50% of which was spent counseling/coordinating care. Reason for contiued inpatient stay Substantial Risk for: inability to function
[2022-07-06] MEDS: Benzocaine 20 % Oral Gel 9 GM TUBE 1 APPL MUCOUS MEM ×2 (12:57→21:28)
[2022-07-06] MEDS: Acetaminophen 325 MG TABLET 650 MG PO (16:18)
[2022-07-06 21:30] VITALS: BP 106/59; PULSE 89; RESP 18; TEMP 36.4; O2SAT 95
[2022-07-07] MEDS: Benztropine Mesylate 1 MG TABLET PO ×2 (09:15→20:57)
[2022-07-07] MEDS: Lithium Carbonate ER 300 MG TABLET.ER PO ×2 (09:15→20:58)
[2022-07-07] MEDS: Perphenazine 8 MG TABLET 16 MG PO ×2 (09:15→20:57)
[2022-07-07 09:20] VITALS: BP 135/81; PULSE 92; RESP 16; TEMP 36.7; O2SAT 99
[2022-07-07] MEDS: Milk of Magnesia 30 ML ORAL.SUSP PO (09:41)
[2022-07-07 09:46] LABS: Lithium 0.46 mmol/L (0.60-1.20)
--- NOTE | 2022-07-07 10:06 | P.PNPSI_ITS ---
Subjective Subjective Date of Service: 07/07/22 Reason For Visit: Unspecified Schizophrenia Spectrum Etc Subjective Notes: Conditional Voluntary and 3 Day Interim History: Pt reports hearing voices of girls telling her that she is stealing from them. Pt at times tearful as she states I'm not stealing. She denies SI/HI. She denies VH. She was informed of d/c tomorrow and was very happy about it. started her on amoxicillin for tooth pain/infection. No behavioral concerns. Pt reports she hears music which helps distract her from hearing voices. Review of Systems Review of Systems Gen: no fever Resp: no sob, no cough CV: no chest, no BANUELOS, no leg edema GI: No n/v, no abd pain Neuro: No confusion Psyy: no SI at that moment Yes all other systems are reviewed and are negative Mental Status Exam Mental Status Exam Narrative: Appearance: strabismus, wearing hospital gown, fair hygiene in NAD Behavior:cooperative psychomotor:no agitation or retardation noted Speech:clear, mumbles at times, regular rate/rhythm/volume, spontaneous Thought process:tangential Thought content:hearing voices of servants, wanting to go home soon Mood: good Affect: congruent, constricted SI:denies HI:denies VH/AH:hearing AH of servants Delusions:paranoia, thinking someone stole from her Insight/judgment:poor x 2. Memory/cog: alert, oriented x 3. intellectual disability. Diagnostics Vital Signs (24Hr): Vital Signs - 24 hr 07/07/22 21:04 Temperature 97.8 F Pulse Rate 82 Blood Pressure 157/82 H Pulse Oximetry 95 Oxygen Delivery Method Room Air Labs Results: 07/05/22 08:07 Labs: Laboratory Results - last 48 hr 07/07/22 07/07/22 08:18 13:10 [place] 0.46 L COVID-19 (NAYANA) Negative COVID-19 Clin Com See Note Medications Medications Current Medications Acetaminophen (Acetaminophen 325 Mg Tablet) 650 mg PO Q6H PRN PRN Reason: Headache/Pain Mild Scale (1-3) Last Admin: 07/06/22 16:18 Dose: 650 mg Al Hydroxide/Mg Hydroxide (Magnesium Hydrox/Alum Hydrox 30 Ml Oral.Susp) 30 ml PO Q6H PRN PRN Reason: Heartburn/Nausea Amoxicillin (Amoxicillin 500 Mg Capsule) 500 mg PO TID [facility] Stop: 07/14/22 09:41 Last Admin: 07/08/22 09:39 Dose: 500 mg Benzocaine (Benzocaine 20 % Oral Gel 9 Gm Tube) 1 appl MUCOUS MEM QID PRN; Protocol PRN Reason: dental pain Last Admin: 07/06/22 21:28 Dose: 1 appl Benztropine Mesylate (Benztropine Mesylate 1 Mg Tablet) 1 mg PO BID [facility] Last Admin: 07/08/22 09:40 Dose: 1 mg Hydroxyzine HCl (Hydroxyzine Hcl 25 Mg Tablet) 25 mg PO Q6H PRN PRN Reason: Anxiety [place] Carbonate ([place] Carbonate Er 300 Mg Tablet.Er) 300 mg PO BID [facility] Last Admin: 07/08/22 09:39 Dose: 300 mg Magnesium Hydroxide (Milk Of Magnesia 30 Ml Oral.Susp) 30 ml PO DAILY PRN PRN Reason: Constipation Last Admin: 07/07/22 09:41 Dose: 30 ml Nicotine Polacrilex (Nicotine Polacrilex 2 Mg Gum) 2 mg BUCCAL Q2H PRN PRN Reason: Nicotine Cravings Perphenazine (Perphenazine 8 Mg Tablet) 16 mg PO BID [facility] Last Admin: 07/08/22 09:37 Dose: 16 mg Trazodone HCl (Trazodone Hcl 100 Mg Tablet) 100 mg PO BEDTIME PRN PRN Reason: Insomnia Allergies Allergies Allergy/AdvReac Type Severity Reaction Status Date / Time clozapine Allergy Unknown Verified 06/30/22 06:36 metronidazole [From Flagyl] Allergy Unknown Verified 06/30/22 06:36 paliperidone Allergy Unknown Verified 06/30/22 06:36 Assessment & Plan Assessment & Plan (1) Schizophrenia, acute: Status: Acute Code(s): F23 - Brief psychotic disorder (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 Britt is a 31 year-old woman with hx of schizophrenia, severe childhood trauma, who resides at [facility]. She was brought via EMS to [facility] ED due to increase reports of AH, SI with plan to hang herself after learning that her grandmother and her trip to [place] was cut short by few days instead of full week. Utox negative. On the unit, pt denies SI/VH/AH and asks to return home. PLAN 1. Admit to M3, CV, 15 minutes checks for safety 2. continue op medications 3. Obtain collateral information 4. Aftercare plan. 07/01 continue current medications. Pt has TD- noticeable perioral involuntary mo vements. 07/02 continue current tx. 07/03/22- Zydis prn for voices. 07/04/22- BMP ordered for 07/05. 07/05/22- Dental pain-pain regime ordered. BMP reviewed. 07/06- d/c olanzapine oversedation. d/c percocet- will rx antibiotic for tooth pain instead if pt report tooth pain again- which she denies today. 07/07 continue current tx. I spent minutes with the patient and/or on the patient floor today, greater than?50% of which was spent counseling/coordinating care. Reason for contiued inpatient stay Substantial Risk for: stable for discharge
[2022-07-07] MEDS: Amoxicillin 500 MG CAPSULE PO ×3 (11:16→20:58)
[2022-07-07 13:59] LABS: COVID-19 Test Negative (Negative); IDNOW Serial# 16C4AD1C
[2022-07-07 21:04] VITALS: BP 157/82; PULSE 82; TEMP 36.6; O2SAT 95
[2022-07-08] MEDS: Perphenazine 8 MG TABLET 16 MG PO (09:37)
[2022-07-08] MEDS: Lithium Carbonate ER 300 MG TABLET.ER PO (09:39)
[2022-07-08] MEDS: Amoxicillin 500 MG CAPSULE PO (09:39)
[2022-07-08] MEDS: Benztropine Mesylate 1 MG TABLET PO (09:40)
--- NOTE | 2022-07-08 10:22 | PM.PSYDC ---
DS: Providers Provider Date of Service: 07/08/22 Date of admission: 06/29/22 21:19 Primary care physician: Unknown Physician Consults: 06/29/22 21:47 Consult to Hospitalist Routine Consulting Provider: Hospitalist Reason For Exam: OSH admission DS: Diagnosis Discharge Diagnosis (1) Schizophrenia, acute: Status: Acute (2) alcohol syndrome: Status: Acute DS: Medications Discharge Medications Home Medications: Previous Rx's Medication Instructions Recorded amoxicillin 500 mg capsule 500 mg PO TID #21 caps 07/08/22 benztropine 1 mg tablet 1 mg PO BID #60 tabs 07/08/22 lithium carbonate 300 mg 300 mg PO BID #60 tabs 07/08/22 tablet,extended release perphenazine 16 mg tablet 16 mg PO BID #60 tabs 07/08/22 trazodone 100 mg tablet 100 mg PO BEDTIME PRN Insomnia #30 07/08/22 tabs Mental Status Exam Mental Status Exam Narrative: Appearance: strabismus, wearing hospital gown, fair hygiene in NAD Behavior:cooperative psychomotor:no agitation or retardation noted Speech:clear, mumbles at times, regular rate/rhythm/volume, spontaneous Thought process:tangential Thought content:hearing voices of servants, wanting to go home soon Mood: good Affect: congruent, constricted SI:denies HI:denies VH/AH:hearing AH of servants Delusions:paranoia, thinking someone stole from her Insight/judgment:poor x 2. Memory/cog: alert, oriented x 3. intellectual disability. Data Data Completed and Pending Completed studies during hospitalization [Text1]: 07/05/22 07/07/22 07/07/22 08:07 08:18 13:10 Sodium 145 Potassium 4.1 Chloride 109 H Carbon Dioxide 27 Anion Gap 13 BUN 9 Creatinine 0.93 Estim Creat Clear Calc TNP Estimated GFR > 60 Random Glucose 76 Calcium 9.9 [employer] 0.46 L COVID-19 (NAYANA) Negative COVID-19 Clin Com See Note DS: Summary Hospital Course Hospital Course: HPI: Subjective Notes: [place] Warning and Conditional Voluntary Narrative: Ms. Britt is a 31 year-old woman with hx of schizophrenia and alcohol syndrome who resides at and was sent via EMS to [facility] due to reports of increase AH, SI with plan to hang herself with phone cord. In the ED her utox was negative. She denied SI or plan or intent to hurt herself. Per [facility] crisis assessment, A operations program manager had reported that Vanda recently received unfortunate news including fact that grandmother and her trip to [place] was cut short from a week to few days. On the unit, pt has been mostly in bed. She denies SI/HI. She even denies AH/VH. She reports is sleeping and eating well. She reports taking medications as prescribed, although per report from ED she had missed few doses. She denies any complaint and basically reports that if it was up to her she would be happy to return to her senior care. Past Psychiatric History: Inpatient:11/2019 [facility];11/13/2019 [facility]; 08/15/2019 [facility]. ? ? OP: Corey Rhoades [phone] Psych provider: Shraonda Strickland A: [phone] ? Legal Guardian: Cheyenne Bailon [phone]. Medical Evaluation Reviewed: Yes HOSPITAL COURSE On the unit, pt was admitted on a CV and placed on 15 minutes checks for safety. Pt initially reported hearing voices of girls telling her that she stole from others. Pt denied suicidal or homicidal ideation throughout this hospital stay. Pt could not explained much as to what had happened at that she tried to wrapped around her neck. Pt reported she liked the and hoped to return as quickly as possible. Pt was visible at times, not as social with pleasant on approach. She reported that she hears music to cope with ongoing voices, which appear to be baseline. She denied past delusions of being . She was eating and sleeping well. She was taking all medications as prescribed. There were no incidences of disruptive behaviors nor need for restraints. Collateral information gathered from , who denied any safety concerns at time of discharge. In terms of medications, pt was continued on OP psych meds. Time spent discussing smoking cessation with patient: 3 to 10 minutes Status at Discharge Cognitive/behavioral status at discharge: Pt with brighter, although constricted affect. Less AH. No SI/HI. No signs of aggression towards self or others. Pt sleeping and eating well. She was looking forward to return to . Functional status at discharge: independent ambulation Overall status at discharge: patient is progressing back to baseline Time Spent with Patient Time attestation: Total time spent providing and/or coordinating discharge services: Time spent: Less than 30 minutes Discharge Plan Discharge Anticipated Discharge Date/Time: 07/08/22 10:10 Patient Disposition: Home Health Service Discharge Diagnosis: Schizophrenia Referrals: SHARONDA NOAHAMRIK [Other] - 08/19/22 9:00 am (IN OFFICE A VISIT) Fatoumata stokes [Other] - 1 Week Fatoumata Stokes DO [Physician] - 11/05/22 8:00 am Discharge Medications: New amoxicillin 500 mg Capsule 500 mg PO TID Qty: 21 0RF lithium carbonate 300 mg Tablet Extended Release 300 mg PO BID Qty: 60 0RF benztropine 1 mg Tablet 1 mg PO BID Qty: 60 0RF perphenazine 16 mg tablet 16 mg PO BID Qty: 60 0RF trazodone 100 mg Tablet 100 mg PO BEDTIME PRN (Reason: Insomnia) Qty: 30 0RF Discontinued Cogentin 1 mg PO BID lithium carbonate 300 mg PO DAILY lithium carbonate 600 mg PO BEDTIME Protonix 20 mg PO DAILY perphenazine 16 mg PO BID Discharge Orders: Discharge Order (Routine); Ordered 07/08/22 Ordered By: Melinda Esteves Diet: Regular diet Activity on Discharge: As tolerated Stand Alone Forms: Patient Portal Discharge page, Community Support Care Plan Goals: 1. Maintain mood 2. NO SI/HI. 3. NO aggression towards self or others 4. Less AH- chronic at baseline Health Concerns: Follow up with PCP - Pt to see dentist ERICA due to tooth infection- on amoxicillin now. - Pt to see surgeon to remove stitches from cholecystectomy. Also ERICA. Staff at senior care to coordinate these appointments. Plan of Treatment: 1. Take medications as prescribed. 2. Go to nearest ED or call 911 in event of emergency Assessment: Pt with constricted but congruent affect. No SI/HI. Pt reports AH, which are chronic. No signs of aggression towards self or others. Pt sleeping and eating well. Looking forward to return to . Discharge Date/Time: 07/08/22 13:50
== END 2022-07-08 13:50 | disposition home health service (06) | DRG 751 ==
PROVIDERS: Clinical Nurse Specialist Psychiatric/Mental Health, Adult; Admitting Provider Psychiatry & Neurology Psychiatry; Visit Provider Social Worker
DX: F23 Brief psychotic disorder (principal); E87.0 Hyperosmolality and hypernatremia; R45.851 Suicidal ideations; Q86.0 Fetal alcohol syndrome (dysmorphic); Z20.822 Contact with and (suspected) exposure to COVID-19; Z88.8 Allergy status to other drugs, medicaments and biological substances; Z79.899 Other long term (current) drug therapy
CPT/HCPCS: 36415; 80048; 80053; 80061; 80076; 80178; 82607; 82746; 83036; 84439; 84443; 87635

== ENCOUNTER 2022-11-01 11:11 | Inpatient (IN) | payer OTHER, SELFPAY ==
--- NOTE | ~2022-11-01 | CT_ITS ---
EXAMINATION: CT ABDOMEN AND PELVIS WITHOUT CONTRAST CLINICAL INFORMATION: Abdominal pain, intractable. COMPARISON: None TECHNIQUE: Multidetector volumetric imaging was performed from the superior aspect of the liver through the pubic symphysis. Sagittal and coronal reformatted images were obtained on the technologist's workstation. This CT examination was performed using dose optimization techniques as appropriate, variously including the following: *Automated exposure control *Adjustment of mA and/or kV according to patient size (this includes techniques or standardized protocols for targeted exams where dose is matched to indication/reason for exam; i.e. extremities or head) *Use of iterative reconstruction technique DLP: 579 mGy-cm FINDINGS: LUNG BASES: The visualized lung bases are unremarkable. LIVER, GALLBLADDER, AND BILIARY TREE: The liver is normal in size, shape, and attenuation. No focal hepatic lesion or biliary ductal dilatation is present. Gallbladder is not seen, likely surgically absent. PANCREAS: Normal. No ductal dilatation or appreciable surrounding fat stranding. No calcifications are SPLEEN: Normal ADRENAL GLANDS: Normal KIDNEYS AND URETERS: The kidneys are normal in size, shape, and attenuation. No hydronephrosis, hydroureter, or calculi seen. No perinephric stranding. BLADDER: Unremarkable. GASTROINTESTINAL TRACT: Stomach, small bowel, and colon are normal in caliber. No bowel wall thickening or surrounding inflammatory changes. Appendix is normal. No intraperitoneal free fluid or free air. Moderate volume of well-formed stool is present throughout the colon. ABDOMINAL WALL: A chronic surgical scar is evident in the anterior abdominal wall in the right upper quadrant. No abdominal wall hernias. LYMPH NODES: A few prominent mesenteric lymph nodes are noted, measuring up to 1 cm in short axis, borderline enlarged. These nodes are most pronounced in the right lower quadrant. VASCULAR: Unremarkable. PELVIC VISCERA: The uterus and adnexa are unremarkable. OSSEOUS STRUCTURES: Minimal degenerative spondylosis in the lower lumbar spine. No acute osseous abnormalities. CT/CT abdomen pelvis wo IV con IMPRESSION: 1. No acute intra-abdominal or intrapelvic abnormalities. Normal appendix 2. A few borderline enlarged mesenteric lymph nodes, possibly reactive in nature. 3. Moderate volume of well-formed stool throughout the colon. Fleischner guidelines were followed.
[2022-11-01 11:19] VITALS: BP 142/84; PULSE 85; O2SAT 96
[2022-11-01 11:21] VITALS: BP 117/64; PULSE 80; RESP 18; TEMP 36.6; O2SAT 98; BMI 30.9
--- NOTE | 2022-11-01 11:27 | ECG_ITS ---
Test Reason : PSYCH/CRISIS Blood Pressure : / mmHG Vent. Rate : 066 BPM Atrial Rate : 066 BPM P-R Int : 156 ms QRS Dur : 084 ms QT Int : 416 ms P-R-T Axes : 039 054 042 degrees QTc Int : 436 ms Normal sinus rhythm with sinus arrhythmia Normal ECG No previous ECGs available Referred By: Meredith Maruicio Electronically Signed By:MOE JERNIGAN MD
[2022-11-01 12:27] LABS: MANUAL DIFF FLAG NO
--- NOTE | 2022-11-01 12:28 | ED_ITS ---
HPI - Psych General Chief Complaint: Psychiatric Symptoms Stated Complaint: CRISIS Source: patient Mode of arrival: EMS Limitations: other ( Alcohol Syndrome ) History of Present Illness HPI Narrative: 31 year-old female with hx of schizophrenia and alcohol syndrome brought in from by EMS to [facility]. She denies HI/SI or plan or intent to hurt herself. She denies a past history of HI/SI intent. She reports hearing voices telling her to get out of her body. She also reports hearing a baby screaming over load music. When asked why she is hear she reports she stopped talking to people at her shelter. She reports the shelter has changed their rules and they want her food stamps, she is not happy about this. She reports taking medications as prescribed. Care Team provider reports the patient is a bedsearch from [facility] no caring for herself, not eating, not showering. MD complaint: feels depressed, anxiety and hallucinations (auditory ) Onset (ago): year(s) Duration: constant History of same: Yes Relieving factors: none Exacerbating factors: none Associated psychiatric symptoms: suicidal ideation and auditory hallucinations Associated symptoms: denies other symptoms Treatments prior to arrival: none Related Data Previous Rx's Medication Instructions Recorded amoxicillin 500 mg capsule 500 mg PO TID #21 caps 07/08/22 benztropine 1 mg tablet 1 mg PO BID #60 tabs 07/08/22 lithium carbonate 300 mg 300 mg PO BID #60 tabs 07/08/22 tablet,extended release perphenazine 16 mg tablet 16 mg PO BID #60 tabs 07/08/22 trazodone 100 mg tablet 100 mg PO BEDTIME PRN Insomnia #30 07/08/22 tabs Allergies Allergy/AdvReac Type Severity Reaction Status Date / Time clozapine Allergy Unknown Verified 06/30/22 06:36 metronidazole [From Flagyl] Allergy Unknown Verified 06/30/22 06:36 paliperidone Allergy Unknown Verified 06/30/22 06:36 Review of Systems Review of Systems: Constitutional : No Fever, No Chills ENT/Mouth : No Ear Pain, No Nasal Congestion, No sore throat Eyes: No Eye Pain, No Swelling, No Redness Cardiovascular : No Chest Pain, No SOB Respiratory : No Cough, No Sputum, No Dyspnea Gastrointestinal : No ingestions, No Nausea, No Vomiting, No Diarrhea, No Hematochezia, No Melena Genitourinary : No Dysuria, No Urinary Frequency, No Hematuria Musculoskeletal : No Myalgias Skin : No Skin Lesions, No rash Neuro : No Weakness, No Numbness, No Paresthesias, No Dizziness, No Headache Psych : No Anxiety, + Depression, No SI, No thoughts of self injury, No HI, No AVH, Heme/Lymph: No Lymphadenopathy Endocrine : No Polyuria, No Polydipsia Yes all other systems are reviewed and are negative [facility] Past Medical History Attestation statement: The following information was validated with the patient. Source: old records reviewed and nursing notes reviewed Social History Social History Household Members: Caregiver Housing: Other Housing Other:: Snf Do you presently have visiting nurse or other home services: No Alcohol intake: never Patient Tobacco Use Status: Never used Tobacco Smoked in Last 30 Days: No Use of substances other than those prescribed or required for medical reasons: No Any prior treatment program specific to substance use: No Advance Directives: No Advance Directives Information Provided: No service: No Sexual orientation: Straight/Heterosexual Physical Exam Vital Signs: Vital Signs: Last Vital Signs Temp 98 F 11/01/22 11:21 Pulse 80 11/01/22 11:21 Resp 18 11/01/22 11:21 BP 117/64 11/01/22 11:21 Pulse Ox 98 11/01/22 11:21 O2 Del Method 11/01/22 11:21 BMI result Body Mass Index 30.9 vital signs have been reviewed as normal and appeared to be correct. Blood pressure normal. Heart rate normal. Respiration rate normal. Temperature normal. Oxygen saturation normal. Appearance: Alert. Oriented X3. No acute distress. Head: Normal external exam. Normocephalic. Atraumatic. No Cavazos signs noted. No raccoon eyes noted Eyes: PERRLA. EOMI. Conjunctiva and sclera normal. Eyelids normal. ENT: EAC normal. TM's Normal. Pharynx normal. Uvula midline. Moist mucous membranes. No trismus noted. No drooling noted. No muffled voice noted. Neck: Normal inspection. Neck supple. FROM. No adenopathy. Thyroid Normal. No meningeal signs. No neck mass noted. CVS: Normal heart rate and rhythm. Heart sound normal. No murmurs noted. Pulses normal throughout. Respiratory: No respiratory distress. Painless inspiration. Breath sounds normal. No wheezes/rales/rhonchi noted. Chest nontender. No accessory muscle usage noted or decreased air movement noted. Abdomen: Soft and nontender. Bowel sounds normal in all 4 quadrants. No distention noted. No organomegaly noted. No visible injury noted. Back: No CVA tenderness. Full range of motion noted. Skin: Skin warm and dry. Normal skin color. Normal skin turgor. Left arm multiple scars from prior cutting. Right thigh scar as well. Extremities: No lower extremity edema. Extremities exhibit normal range of motion. Extremities nontender. Neuro: Oriented X 3. No motor deficit. No sensory deficit. Reflexes normal. CN's II-XII intact bilaterally? Psych: Appearance grossly normal, well-kept, mental status normal, speech and movement normal, speech clear, patient appears very sad and anxious along with depressed. Is cooperative. Normal thought process. Normal thought content. Normal good insight. Judgment good. Course Course Course Narrative: 11:30am - 31 year-old female with hx of schizophrenia and alcohol syndrome who resides at and was sent via EMS to [facility]. She denies HI/SI or plan or intent to hurt herself. She denies a past history of HI/SI intent. She reports hearing voices telling her to get out of her body. She also reports hearing a baby screaming over load music. When asked why she is hear she reports she stopped talking to people at her shelter. She reports the shelter has changed their rules and they want her food stamps, she is not happy about this. She reports taking medications as prescribed. This patient presents with symptoms consistent with an underlying psychiatric disorder, most likely paranoia. Presentation not consistent with acute organic causes to include delirium, dementia or drug induced disorders (acute ingestions or withdrawal; no evidence of toxidrome). Given the H&P, I suspect this patient is NOT suicidal/homicidal/gravely disabled and may or may not require psychiatri c care. Plan: labs, EKG, ETOH level, UDS then re-evaluate. Reevaluation(s) Reevaluation #1: Labs reviewed patient mild anemia with an H&H of 9.2/29.7. Sodium 146. Chloride 112. Carbon dioxide 30. Anion gap 8. Otherwise all other labs are within normal limits. UA within normal limits no evidence of UTI. Patient nega tive for by blood. Patient negative for all drugs. Patient negative for EtOH. Patient negative For COVID/RSV/flu. Therefore at this time patient is medically cleared and placed in Physician observation because the patient needs more time to be evaluated by the care team will continue to monitor until them. Time: 13:58 Reevaluation #2: Care Team provider reports the patient is a bedsearch from [facility] no caring for herself, not eating, not showering Time: 14:52 Medical Decision Making Consult Healthcare Provider Management of the patient was discussed with: Behavioral Health Provider Lab Data [facility] Lab Attestation statement: I reviewed the patient's lab results. 11/01/22 12:22 11/01/22 12:22 Labs: Lab Results 11/01/22 11/01/22 11/01/22 Range/Units 12:22 12:22 12:22 WBC 6.3 (4.8-10.8) X10*3/uL RBC 3.65 L (4.20-5.50) X10*6/uL Hgb 9.2 L (12.0-16.0) g/dl Hct 29.7 L (37.0-47.0) % MCV 81.4 (80.0-98.0) fL MCH 25.2 L (27.0-33.0) pg MCHC 31.0 (31.0-35.0) g/dl RDW 15.3 (11.0-16.0) % Plt Count 250 (160-400) X10*3/uL MPV 10.5 (9.4-12.3) fL Immature Gran % (Auto) 0.5 H (0.0-0.4) % Neut % (Auto) 54.0 (45-73) % Lymph % (Auto) 32.9 (20-40) % [place] % (Auto) 7.9 (2-11) % Eos % (Auto) 4.1 H (0-4) % Baso % (Auto) 0.6 (0-2) % Lymph # (Auto) 2.1 (1.2-4.9) X10*3/uL [place] # (Auto) 0.5 (0.1-1.2) X10*3/uL Eos # (Auto) 0.3 (0.0-0.4) X10*3/uL Baso # (Auto) 0.0 (0.0-0.2) X10*3/uL Abs Immat Gran (auto) 0.03 (0.00-0.03) X10*3/uL Absolute Neuts (auto) 3.4 (2.0-8.3) x10*3/uL Absolute Nucleated RBC 0.000 (0.0-0.012) X10*3/uL Nucleated RBC % (auto) 0.0 (0.0-0.2) /100WBC Sodium 146 H (135-145) mmol/L Potassium 3.8 (3.3-5.1) mmol/L Chloride 112 H (96-108) mmol/L Carbon Dioxide 30 H (22-29) mmol/L Anion Gap 8 L (12-20) BUN 13 (9-16) mg/dL Creatinine 0.80 (0.5-1.4) mg/dL Estim Creat Clear Calc 105.3 Estimated GFR > 60 Random Glucose 88 (60-115) mg/dL Calcium 9.4 (8.4-10.2) mg/dL Magnesium 2.0 (1.6-2.6) mg/dL Total Bilirubin < 0.2 (0.0-1.0) mg/dL AST 16 (5-31) U/L ALT 24 (0-31) U/L Alkaline Phosphatase 110 (39-117) U/L Total Protein 6.8 (6.5-8.0) g/dL Albumin 3.9 (3.5-5.0) g/dL Lipase 14 (8-78) U/L Beta HCG, Quant < 2 mIU/mL Urine Color Urine Appearance Urine pH (5.0-9.0) Ur Specific [place] (1.005-1.025) Urine Protein (Neg-Trace) mg/dL Urine Glucose (UA) (Negative) mg/dL Urine Ketones (Negative) mg/dL Urine Blood (Negative) Urine Nitrite (Negative) Ur Leukocyte Esterase (Negative) Urine Opiates Screen (Not Detect) Urine Fentanyl Screen (Not Detect) Ur Barbiturates Screen (Not Detect) Ur Phencyclidine Scrn (Not Detect) Ur Amphetamines Screen (Not Detect) U Benzodiazepines Scrn (Not Detect) Urine Cocaine Screen (Not Detect) U Marijuana (THC) Screen (Not Detect) Ethyl Alcohol < 10 mg/dL Influenza Type A (PCR) NEGATIVE (Negative) Influenza Type B (PCR) NEGATIVE (Negative) RSV RNA Qual (PCR) NEGATIVE (Negative) SARS-CoV-2 RNA (RT-PCR) NEGATIVE (Negative) 11/01/22 11/01/22 Range/Units 12:35 12:35 WBC (4.8-10.8) X10*3/uL RBC (4.20-5.50) X10*6/uL Hgb (12.0-16.0) g/dl Hct (37.0-47.0) % MCV (80.0-98.0) fL MCH (27.0-33.0) pg MCHC (31.0-35.0) g/dl RDW (11.0-16.0) % Plt Count (160-400) X10*3/uL MPV (9.4-12.3) fL Immature Gran % (Auto) (0.0-0.4) % Neut % (Auto) (45-73) % Lymph % (Auto) (20-40) % [place] % (Auto) (2-11) % Eos % (Auto) (0-4) % Baso % (Auto) (0-2) % Lymph # (Auto) (1.2-4.9) X10*3/uL [place] # (Auto) (0.1-1.2) X10*3/uL Eos # (Auto) (0.0-0.4) X10*3/uL Baso # (Auto) (0.0-0.2) X10*3/uL Abs Immat Gran (auto) (0.00-0.03) X10*3/uL Absolute Neuts (auto) (2.0-8.3) x10*3/uL Absolute Nucleated RBC (0.0-0.012) X10*3/uL Nucleated RBC % (auto) (0.0-0.2) /100WBC Sodium (135-145) mmol/L Potassium (3.3-5.1) mmol/L Chloride (96-108) mmol/L Carbon Dioxide (22-29) mmol/L Anion Gap (12-20) BUN (9-16) mg/dL Creatinine (0.5-1.4) mg/dL Estim Creat Clear Calc Estimated GFR Random Glucose (60-115) mg/dL Calcium (8.4-10.2) mg/dL Magnesium (1.6-2.6) mg/dL Total Bilirubin (0.0-1.0) mg/dL AST (5-31) U/L ALT (0-31) U/L Alkaline Phosphatase (39-117) U/L Total Protein (6.5-8.0) g/dL Albumin (3.5-5.0) g/dL Lipase (8-78) U/L Beta HCG, Quant mIU/mL Urine Color Yellow Urine Appearance Clear Urine pH 8.0 (5.0-9.0) Ur Specific [place] <= 1.005 (1.005-1.025) Urine Protein Negative (Neg-Trace) mg/dL Urine Glucose (UA) Negative (Negative) mg/dL Urine Ketones Negative (Negative) mg/dL Urine Blood Negative (Negative) Urine Nitrite Negative (Negative) Ur Leukocyte Esterase Negative (Negative) Urine Opiates Screen Not Detected (Not Detect) Urine Fentanyl Screen Not Detected (Not Detect) Ur Barbiturates Screen Not Detected (Not Detect) Ur Phencyclidine Scrn Not Detected (Not Detect) Ur Amphetamines Screen Not Detected (Not Detect) U Benzodiazepines Scrn Not Detected (Not Detect) Urine Cocaine Screen Not Detected (Not Detect) U Marijuana (THC) Screen Not Detected (Not Detect) Ethyl Alcohol mg/dL Influenza Type A (PCR) (Negative) Influenza Type B (PCR) (Negative) RSV RNA Qual (PCR) (Negative) SARS-CoV-2 RNA (RT-PCR) (Negative) Independent Interpretation I performed an independent interpretation of an: EKG (Normal sinus rhythm with sinus arrhythmia with ventricular rate of 66 with a normal OH interval normal QRS duration normal QT/QTC interval. No acute ischemic change are noted. No prior EKGs to compare to at this time. ) External Record Review External record reviewed: Inpatient record, Office record, Outpatient record, Prior outpatient labs, Prior outpatient radiology, Primary care record and Outside ED record Discharge Plan Discharge Clinical Impression: Depression, alcohol syndrome, Acute anxiety, Paranoid Patient Disposition: Still a Patient Prescriptions: No Action amoxicillin 500 mg Capsule 500 mg PO TID Qty: 21 0RF lithium carbonate 300 mg Tablet Extended Release 300 mg PO BID Qty: 60 0RF benztropine 1 mg Tablet 1 mg PO BID Qty: 60 0RF perphenazine 16 mg tablet 16 mg PO BID Qty: 60 0RF trazodone 100 mg Tablet 100 mg PO BEDTIME PRN (Reason: Insomnia) Qty: 30 0RF Interventions: [place]-Suicide Risk Severity Scale Last Done: 11/01/22 11:30
[2022-11-01 12:29] LABS: Basophils Percent Auto 0.6 % (0-2); Eosinophils Absolute Auto 0.3 X10*3/uL (0.0-0.4); Eosinophils Percent Auto 4.1 % (0-4); Hematocrit 29.7 % (37.0-47.0); Hemoglobin 9.2 g/dl (12.0-16.0); Imm Gran Abs Auto 0.03 X10*3/uL (0.00-0.03); Imm Gran Pct Auto 0.5 % (0.0-0.4); Lymphocytes Absolute Auto 2.1 X10*3/uL (1.2-4.9); Lymphocytes Percent Auto 32.9 % (20-40); Mean Corpuscular Hemoglobin 25.2 pg (27.0-33.0); Mean Corpuscular Volume 81.4 fL (80.0-98.0); Mean Platelet Volume 10.5 fL (9.4-12.3); Monocytes Absolute Auto 0.5 X10*3/uL (0.1-1.2); Monocytes Percent Auto 7.9 % (2-11); Neutrophils Absolute Auto 3.4 x10*3/uL (2.0-8.3); Platelet Count 250 X10*3/uL (160-400); Red Blood Count 3.65 X10*6/uL (4.20-5.50); Red Cell Distribution Width 15.3 % (11.0-16.0); White Blood Count 6.3 X10*3/uL (4.8-10.8)
[2022-11-01 12:52] LABS: Alanine Aminotransferase 24 U/L (0-31); Albumin Level 3.9 g/dL (3.5-5.0); Alkaline Phosphatase 110 U/L (39-117); Anion Gap 8 (12-20); Aspartate Amino Transferase 16 U/L (5-31); Bilirubin Total < 0.2 mg/dL (0.0-1.0); Blood Urea Nitrogen 13 mg/dL (9-16); Calcium 9.4 mg/dL (8.4-10.2); Carbon Dioxide 30 mmol/L (22-29); Chloride 112 mmol/L (96-108); Creatinine Clr Calc Pharmacy 105.3; Estimated Glomerular Filt Rate > 60; Ethanol < 10 mg/dL; Glucose Random 88 mg/dL (60-115); HCG Quantitative < 2 mIU/mL; Lipase 14 U/L (8-78); Potassium 3.8 mmol/L (3.3-5.1); Sodium 146 mmol/L (135-145); Total Protein 6.8 g/dL (6.5-8.0)
[2022-11-01 12:52] LABS: Amphetamine Screen Urine Not Detected (Not Detect); Appearance Urine Clear; Barbiturates, Urine Not Detected (Not Detect); Benzodiazepines Screen Urine Not Detected (Not Detect); Cannabinoid Screen Urine Not Detected (Not Detect); Cocaine Screen Urine Not Detected (Not Detect); Color Urine Yellow; Fentanyl, urine Not Detected (Not Detect); Glucose Urine UA Negative (Negative); Leukocyte Esterase Urine Negative (Negative); Nitrite Urine Negative (Negative); Opiate Screen Urine Not Detected (Not Detect); Phencyclidine Screen Urine Not Detected (Not Detect); Specific Gravity - Urine <= 1.005 (1.005-1.025); Urine Blood Negative (Negative); Urine Ketones Negative (Negative); Urine Protein Negative (Neg-Trace)
[2022-11-01 13:16] LABS: Influenza A PCR NEGATIVE (Negative); Influenza B PCR NEGATIVE (Negative); Resp Syncy Virus RNA Qual PCR NEGATIVE (Negative); SARS COV2 PCR INHOUSE NEGATIVE (Negative)
[2022-11-01 23:40] VITALS: BP 146/89; PULSE 70; RESP 16; TEMP 36.4; O2SAT 100
--- NOTE | 2022-11-01 23:54 | PC.ADMIT ---
Pt admitted to [facility] at 2330 from [facility] pod on a CV for decompensated schizophrenia. Pt has been inconsistent with taking psychiatric medications in violation of Abraham's order and has been exhibiting increasingly aggressive, delusional, and disorganized behavior. According to [facility] program staff, pt has not been bathing, sleeping, or eating consistently. She has made vague SI statements with no plan or intent, appears to be internally preoccupied and at times responding to internal stimuli. No known ongoing medical issues, no substance use, UDS negative, labs significant for mild anemia and Na+ of 146. Pt currently denies SI/HI/AVH. She has been calm and cooperative since arriving to [facility]. Presents with constricted affect, poverty of speech, guarded, but cooperative with admission process. Pt has a legal guardian, Cheyenne Bailon, and multiple outpatient providers and support. She has an upcoming court date 11/15/22 for assaulting a program staff member.
[2022-11-02 09:24] VITALS: BP 123/65; PULSE 64; RESP 18; TEMP 36.6; O2SAT 98
[2022-11-02 09:52] LABS: Alanine Aminotransferase 46 U/L (0-31); Albumin Level 3.4 g/dL (3.5-5.0); Alkaline Phosphatase 93 U/L (39-117); Anion Gap 15 (12-20); Aspartate Amino Transferase 44 U/L (5-31); Bilirubin Total 0.2 mg/dL (0.0-1.0); Blood Urea Nitrogen 11 mg/dL (9-16); Calcium 9.1 mg/dL (8.4-10.2); Carbon Dioxide 23 mmol/L (22-29); Chloride 112 mmol/L (96-108); Cholesterol 211 mg/dL; Creatinine Clr Calc Pharmacy 113.8; Estimated Glomerular Filt Rate > 60; Glucose Fasting 85 mg/dL (60-99); HDL Cholesterol 46 mg/dL; LDL Cholesterol Calculated 144 mg/dl; Potassium 3.9 mmol/L (3.3-5.1); Sodium 146 mmol/L (135-145); Total Protein 6.1 g/dL (6.5-8.0); Triglycerides 108 mg/dL
[2022-11-02 19:45] VITALS: BP 158/73; PULSE 78; RESP 16; TEMP 36.7; O2SAT 100
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
[2022-11-03] MEDS: LORazepam 1 MG TABLET PO (05:50)
[2022-11-03 09:00] VITALS: BP 142/89; RESP 18
[2022-11-03] MEDS: Lithium Carbonate ER 450 MG TABLET.ER PO ×2 (16:06→21:23)
[2022-11-03] MEDS: Benztropine Mesylate 1 MG TABLET PO ×2 (16:06→21:23)
[2022-11-03] MEDS: Docusate Sodium 100 MG CAPSULE PO ×2 (16:06→21:23)
[2022-11-03] MEDS: Simethicone 80 MG TAB.CHEW PO (16:06)
[2022-11-03] MEDS: Ferrous Sulfate 324 MG TABLET.DR PO (16:06)
[2022-11-03] MEDS: Perphenazine 8 MG TABLET 16 MG PO ×2 (16:06→21:23)
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
[2022-11-03] MEDS: Sennosides 8.6 MG TABLET PO (21:23)
[2022-11-03 21:30] VITALS: RESP 16
[2022-11-04 07:00] VITALS: BMI 34.3
[2022-11-04 08:15] VITALS: BP 133/81; PULSE 108; RESP 16; TEMP 36.2; O2SAT 100
[2022-11-04] MEDS: Simethicone 80 MG TAB.CHEW PO ×3 (08:28→17:04)
[2022-11-04] MEDS: Benztropine Mesylate 1 MG TABLET PO ×2 (08:28→20:39)
[2022-11-04] MEDS: Lithium Carbonate ER 450 MG TABLET.ER PO ×2 (08:28→20:39)
[2022-11-04] MEDS: Ferrous Sulfate 324 MG TABLET.DR PO (08:28)
[2022-11-04] MEDS: Docusate Sodium 100 MG CAPSULE PO ×2 (08:28→20:39)
[2022-11-04] MEDS: Loratadine 10 MG TABLET PO (08:29)
[2022-11-04] MEDS: Perphenazine 8 MG TABLET 16 MG PO ×2 (08:29→20:39)
[2022-11-04] MEDS: Omeprazole 20 MG CAPSULE.DR PO (08:29)
--- NOTE | 2022-11-04 12:42 | HO.PSYCHPN ---
Subjective Subjective Date of Service: 11/04/22 Reason For Visit: psychosis Interim History: calm and cooperative, observed walking the unit with headphones on. feeling good, states she is a bit tired, though. some frustration bcse the radio does not offer the music selection she is interested in. spoke with RN, staff will supervise pt to listen to some music from her phone if staffing permits. per staff, singing loudly in milieu. not attending groups. denies SI/HI/AVH. tangential. safe on the unit. denies anx/dep. cooperative. slept through the night. Mental Status Exam Mental Status Exam Narrative: adequately dressed, disheveled. calm and cooperative. speech nml rate, amount, loudness, tone, latency. thoughts linear and logical in brief, superficial engagement. affect constricted, normo-intense, non-labile. mood good. no SI/HI/AVH expressed. Diagnostics Vital Signs (24Hr): Vital Signs - 24 hr 11/03/22 21:30 11/04/22 08:15 Temperature 97.2 F Pulse Rate 108 H Respiratory Rate 16 16 Blood Pressure 133/81 Pulse Oximetry 100 Oxygen Delivery Method Room Air BMI result Body Mass Index 34.3 Labs 11/01/22 12:22 11/02/22 08:30 Imaging Radiology Impressions: ITS Impressions Abdomen/Pelvis CT 11/03/22 16:53 IMPRESSION: 1. No acute intra-abdominal or intrapelvic abnormalities. Normal appendix 2. A few borderline enlarged mesenteric lymph nodes, possibly reactive in nature. 3. Moderate volume of well-formed stool throughout the colon. Fleischner guidelines were followed. Medications Medications Current Medications Acetaminophen (Acetaminophen 325 Mg Tablet) 650 mg PO Q6H PRN PRN Reason: Headache/Pain Mild Scale (1-3) Al Hydroxide/Mg Hydroxide (Magnesium Hydrox/Alum Hydrox 30 Ml Oral.Susp) 30 ml PO Q6H PRN PRN Reason: Heartburn/Nausea Benztropine Mesylate (Benztropine Mesylate 1 Mg Tablet) 1 mg PO BID [facility] Last Admin: 11/04/22 08:28 Dose: 1 mg Docusate Sodium (Docusate Sodium 100 Mg Capsule) 100 mg PO BID [facility] Last Admin: 11/04/22 08:28 Dose: 100 mg Ferrous Sulfate (Ferrous Sulfate 324 Mg Tablet.) 324 mg PO DAILY [facility] Last Admin: 11/04/22 08:28 Dose: 324 mg Hydroxyzine HCl (Hydroxyzine Hcl 25 Mg Tablet) 25 mg PO Q6H PRN PRN Reason: Anxiety [place] Carbonate ([place] Carbonate Er 450 Mg Tablet.Er) 450 mg PO BID [facility] Last Admin: 11/04/22 08:28 Dose: 450 mg Loratadine (Loratadine 10 Mg Tablet) 10 mg PO DAILY [facility] Last Admin: 11/04/22 08:29 Dose: 10 mg Lorazepam (Lorazepam 1 Mg Tablet) 1 mg PO TID PRN PRN Reason: Anxiety Last Admin: 11/03/22 05:50 Dose: 1 mg Magnesium Hydroxide (Milk Of Magnesia 30 Ml Oral.Susp) 30 ml PO DAILY PRN PRN Reason: Constipation Olanzapine (Olanzapine 10 Mg Vial) 10 mg IM BID PRN PRN Reason: refusal of perphenazine Omeprazole (Omeprazole 20 Mg Capsule.Dr) 20 mg PO DAILY@0630 [facility] Last Admin: 11/04/22 08:29 Dose: 20 mg Perphenazine (Perphenazine 8 Mg Tablet) 16 mg PO BID [facility] Last Admin: 11/04/22 08:29 Dose: 16 mg Senna (Sennosides 8.6 Mg Tablet) 8.6 mg PO BEDTIME [facility] Last Admin: 11/03/22 21:23 Dose: 8.6 mg Simethicone (Simethicone 80 Mg Tab.Chew) 80 mg PO QIDWMHS [facility] Last Admin: 11/04/22 12:34 Dose: 80 mg Trazodone HCl (Trazodone Hcl 50 Mg Tablet) 50 mg PO BEDTIME MRX1 PRN PRN Reason: Insomnia Allergies Allergies Allergy/AdvReac Type Severity Reaction Status Date / Time clozapine Allergy Unknown Verified 06/30/22 06:36 metronidazole [From Flagyl] Allergy Unknown Verified 06/30/22 06:36 paliperidone Allergy Unknown Verified 06/30/22 06:36 Assessment & Plan Assessment & Plan (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 obtain kayden's order and medicate accordingly. 11/03: kayden's order authorizes trilafon and zyprexa (seroquel, latuda, vraylar as secondaries). unclear if perphenazine is meant to be 16 BID (ED note) versus 15/05/20 (paperwork appearing with legal materials). will start with 16 BID today and attempt to clarify dosing tomorrow. olanzapine IM PRN perphenazine refusal. 11/04: continue current medications regimen as pt is calm, cooperative, and currently denying any psychotic Sx. Reason for contiued inpatient stay Substantial Risk for: inability to function and rapid decompensation Time Spent With Patient Time: Total time managing care of this patient today _20___ minutes.
[2022-11-04] MEDS: Sennosides 8.6 MG TABLET PO (20:39)
[2022-11-04] MEDS: hydrOXYzine HCL 25 MG TABLET PO (20:39)
[2022-11-04] MEDS: LORazepam 1 MG TABLET PO (20:39)
[2022-11-05 09:30] VITALS: BP 132/77; PULSE 80; RESP 16; TEMP 36.4; O2SAT 99
[2022-11-05] MEDS: Benztropine Mesylate 1 MG TABLET PO ×2 (09:49→20:36)
[2022-11-05] MEDS: Omeprazole 20 MG CAPSULE.DR PO (09:49)
[2022-11-05] MEDS: Lithium Carbonate ER 450 MG TABLET.ER PO ×2 (09:49→20:36)
[2022-11-05] MEDS: Ferrous Sulfate 324 MG TABLET.DR PO (09:49)
[2022-11-05] MEDS: Docusate Sodium 100 MG CAPSULE PO ×2 (09:49→20:36)
[2022-11-05] MEDS: Simethicone 80 MG TAB.CHEW PO ×3 (09:49→20:36)
[2022-11-05] MEDS: Loratadine 10 MG TABLET PO (09:49)
[2022-11-05] MEDS: Perphenazine 8 MG TABLET 16 MG PO ×2 (09:49→20:36)
--- NOTE | 2022-11-05 10:40 | HO.PSYCHPN ---
Subjective Subjective Date of Service: 11/05/22 Reason For Visit: psychosis Subjective Notes: Conditional Voluntary Interim History: Per nursing, pt woke up last night yelling and agitated, finally able to go to sleep. This morning, pt very anxious, again yelling, when asked she reported hearing voices although telling her about her servants and accusing her of doing something wrong. She denies SI/HI. She reports feeling anxious and at same time, she asks this designer/writer if she can be discharged soon. Medication Compliance: Yes Review of Systems Review of Systems Constitutional : No Fever, No Chills ENT/Mouth : No Ear Pain, No Nasal Congestion, No sore throat Eyes: No Eye Pain, No Swelling, No Redness Cardiovascular : No Chest Pain, No SOB Respiratory : No Cough, No Sputum, No Dyspnea Gastrointestinal : No ingestions, No Nausea, No Vomiting, No Diarrhea, No Hematochezia, No Melena Genitourinary : No Dysuria, No Urinary Frequency, No Hematuria Musculoskeletal : No Myalgias Skin : No Skin Lesions, No rash Neuro : No Weakness, No Numbness, No Paresthesias, No Dizziness, No Headache Psych : No Anxiety, + Depression, No SI, No thoughts of self injury, No HI, No AVH, Heme/Lymph: No Lymphadenopathy Endocrine : No Polyuria, No Polydipsia Yes all other systems are reviewed and are negative Mental Status Exam Mental Status Exam Narrative: adequately dressed, disheveled. calm and cooperative. speech nml rate, amount, loudness, tone, latency. thoughts linear and logical in brief, superficial engagement. affect constricted, normo-intense, non-labile. mood good. no SI/HI/AVH expressed. Diagnostics Vital Signs (24Hr): Vital Signs - 24 hr 11/05/22 09:30 11/05/22 20:45 11/06/22 08:32 Temperature 97.6 F 98.1 F 97.3 F Pulse Rate 80 86 95 Respiratory Rate 16 16 18 Blood Pressure 132/77 127/75 132/83 Pulse Oximetry 99 99 96 Oxygen Delivery Method Room Air Room Air Room Air BMI result Body Mass Index 34.3 Labs 11/01/22 12:22 11/02/22 08:30 Imaging Radiology Impressions: [facility] Impressions Abdomen/Pelvis CT 11/03/22 16:53 IMPRESSION: 1. No acute intra-abdominal or intrapelvic abnormalities. Normal appendix 2. A few borderline enlarged mesenteric lymph nodes, possibly reactive in nature. 3. Moderate volume of well-formed stool throughout the colon. Fleischner guidelines were followed. Medications Medications Current Medications Acetaminophen (Acetaminophen 325 Mg Tablet) 650 mg PO Q6H PRN PRN Reason: Headache/Pain Mild Scale (1-3) Al Hydroxide/Mg Hydroxide (Magnesium Hydrox/Alum Hydrox 30 Ml Oral.Susp) 30 ml PO Q6H PRN PRN Reason: Heartburn/Nausea Benztropine Mesylate (Benztropine Mesylate 1 Mg Tablet) 1 mg PO BID [facility] Last Admin: 11/06/22 08:30 Dose: 1 mg Docusate Sodium (Docusate Sodium 100 Mg Capsule) 100 mg PO BID [facility] Last Admin: 11/06/22 08:30 Dose: 100 mg Ferrous Sulfate (Ferrous Sulfate 324 Mg Tablet.) 324 mg PO DAILY [facility] Last Admin: 11/06/22 08:30 Dose: 324 mg Hydroxyzine HCl (Hydroxyzine Hcl 25 Mg Tablet) 25 mg PO Q6H PRN PRN Reason: Anxiety Last Admin: 11/04/22 20:39 Dose: 25 mg [place] Carbonate ([place] Carbonate Er 450 Mg Tablet.Er) 450 mg PO BID [facility] Last Admin: 11/06/22 08:29 Dose: 450 mg Loratadine (Loratadine 10 Mg Tablet) 10 mg PO DAILY [facility] Last Admin: 11/06/22 08:29 Dose: 10 mg Lorazepam (Lorazepam 1 Mg Tablet) 1 mg PO TID PRN PRN Reason: Anxiety Last Admin: 11/05/22 12:29 Dose: 1 mg Magnesium Hydroxide (Milk Of Magnesia 30 Ml Oral.Susp) 30 ml PO DAILY PRN PRN Reason: Constipation Olanzapine (Olanzapine 10 Mg Vial) 10 mg IM BID PRN PRN Reason: refusal of perphenazine Olanzapine (Olanzapine 5 Mg Tablet) 5 mg PO Q4H PRN PRN Reason: agitation Omeprazole (Omeprazole 20 Mg Capsule.) 20 mg PO DAILY@0630 [facility] Last Admin: 11/06/22 08:30 Dose: 20 mg Perphenazine (Perphenazine 8 Mg Tablet) 16 mg PO BID [facility] Last Admin: 11/06/22 08:29 Dose: 16 mg Senna (Sennosides 8.6 Mg Tablet) 8.6 mg PO BEDTIME [facility] Last Admin: 11/05/22 20:36 Dose: 8.6 mg Simethicone (Simethicone 80 Mg Tab.Chew) 80 mg PO QIDWMHS [facility] Last Admin: 11/05/22 20:36 Dose: 80 mg Trazodone HCl (Trazodone Hcl 50 Mg Tablet) 50 mg PO BEDTIME MRX1 PRN PRN Reason: Insomnia Allergies Allergies Allergy/AdvReac Type Severity Reaction Status Date / Time clozapine Allergy Unknown Verified 06/30/22 06:36 metronidazole [From Flagyl] Allergy Unknown Verified 06/30/22 06:36 paliperidone Allergy Unknown Verified 06/30/22 06:36 Assessment & Plan Assessment & Plan (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 obtain kayden's order and medicate accordingly. 11/03: kayden's order authorizes trilafon and zyprexa (seroquel, latuda, vraylar as secondaries). unclear if perphenazine is meant to be 16 BID (ED note) versus 15/05/20 (paperwork appearing with legal materials). will start with 16 BID today and attempt to clarify dosing tomorrow. olanzapine IM PRN perphenazine refusal. 11/04: continue current medications regimen as pt is calm, cooperative, and currently denying any psychotic Sx. 11/05 continue current medication. Will add prn olanzapine as pt last night and today somewhat agitated by psychosis. Reason for contiued inpatient stay Substantial Risk for: inability to function Time Spent With Patient Time: Total time managing care of this patient today ____ minutes.
--- NOTE | 2022-11-05 10:56 | PC.NURSE ---
Concerns related to patient's somnolence yesterday mid day were relayed to Melinda Esteves NP this morning at 0850. No new orders.
[2022-11-05] MEDS: LORazepam 1 MG TABLET PO (12:29)
[2022-11-05] MEDS: Sennosides 8.6 MG TABLET PO (20:36)
[2022-11-05 20:45] VITALS: BP 127/75; PULSE 86; RESP 16; TEMP 36.7; O2SAT 99
[2022-11-06] MEDS: Lithium Carbonate ER 450 MG TABLET.ER PO ×2 (08:29→20:32)
[2022-11-06] MEDS: Loratadine 10 MG TABLET PO (08:29)
[2022-11-06] MEDS: Perphenazine 8 MG TABLET 16 MG PO ×2 (08:29→20:32)
[2022-11-06] MEDS: Omeprazole 20 MG CAPSULE.DR PO (08:30)
[2022-11-06] MEDS: Docusate Sodium 100 MG CAPSULE PO ×2 (08:30→20:32)
[2022-11-06] MEDS: Benztropine Mesylate 1 MG TABLET PO ×2 (08:30→20:32)
[2022-11-06] MEDS: Ferrous Sulfate 324 MG TABLET.DR PO (08:30)
[2022-11-06 08:32] VITALS: BP 132/83; PULSE 95; RESP 18; TEMP 36.3; O2SAT 96
[2022-11-06] MEDS: Simethicone 80 MG TAB.CHEW PO ×4 (08:49→20:32)
--- NOTE | 2022-11-06 12:57 | HO.PSYCHPN ---
Subjective Subjective Date of Service: 11/06/22 Reason For Visit: psychosis Interim History: Per nursing, pt intermittently yelling and agitated; wearing headphones in common area; polite; states she wantsa to be discharged; anxious; reports hearing voices although telling her about her servants and accusing her of doing something wrong. She denies SI/HI. Medication Compliance: Yes Side effects from medications: No Attending Groups: No Review of Systems Acute medical concerns: No Review of Systems Review of Systems Constitutional : No Fever, No Chills ENT/Mouth : No Ear Pain, No Nasal Congestion, No sore throat Eyes: No Eye Pain, No Swelling, No Redness Cardiovascular : No Chest Pain, No SOB Respiratory : No Cough, No Sputum, No Dyspnea Gastrointestinal : No ingestions, No Nausea, No Vomiting, No Diarrhea, No Hematochezia, No Melena Genitourinary : No Dysuria, No Urinary Frequency, No Hematuria Musculoskeletal : No Myalgias Skin : No Skin Lesions, No rash Neuro : No Weakness, No Numbness, No Paresthesias, No Dizziness, No Headache Psych : No Anxiety, + Depression, No SI, No thoughts of self injury, No HI, No AVH, Heme/Lymph: No Lymphadenopathy Endocrine : No Polyuria, No Polydipsia Yes all other systems are reviewed and are negative Mental Status Exam Mental Status Exam Narrative: adequately dressed, disheveled. calm and cooperative. speech nml rate, amount, loudness, tone, latency. thoughts linear and logical in brief, superficial engagement. affect constricted, normo-intense, non-labile. mood good. no SI/HI/AVH expressed. Diagnostics Vital Signs (24Hr): Vital Signs - 24 hr 11/05/22 20:45 11/06/22 08:32 Temperature 98.1 F 97.3 F Pulse Rate 86 95 Respiratory Rate 16 18 Blood Pressure 127/75 132/83 Pulse Oximetry 99 96 Oxygen Delivery Method Room Air Room Air BMI result Body Mass Index 34.3 Labs 11/01/22 12:22 11/02/22 08:30 Imaging Radiology Impressions: ITS Impressions Abdomen/Pelvis CT 11/03/22 16:53 IMPRESSION: 1. No acute intra-abdominal or intrapelvic abnormalities. Normal appendix 2. A few borderline enlarged mesenteric lymph nodes, possibly reactive in nature. 3. Moderate volume of well-formed stool throughout the colon. Fleischner guidelines were followed. Medications Medications Current Medications Acetaminophen (Acetaminophen 325 Mg Tablet) 650 mg PO Q6H PRN PRN Reason: Headache/Pain Mild Scale (1-3) Al Hydroxide/Mg Hydroxide (Magnesium Hydrox/Alum Hydrox 30 Ml Oral.Susp) 30 ml PO Q6H PRN PRN Reason: Heartburn/Nausea Benztropine Mesylate (Benztropine Mesylate 1 Mg Tablet) 1 mg PO BID [facility] Last Admin: 11/06/22 08:30 Dose: 1 mg Docusate Sodium (Docusate Sodium 100 Mg Capsule) 100 mg PO BID [facility] Last Admin: 11/06/22 08:30 Dose: 100 mg Ferrous Sulfate (Ferrous Sulfate 324 Mg Tablet.) 324 mg PO DAILY [facility] Last Admin: 11/06/22 08:30 Dose: 324 mg Hydroxyzine HCl (Hydroxyzine Hcl 25 Mg Tablet) 25 mg PO Q6H PRN PRN Reason: Anxiety Last Admin: 11/04/22 20:39 Dose: 25 mg [place] Carbonate ([place] Carbonate Er 450 Mg Tablet.Er) 450 mg PO BID [facility] Last Admin: 11/06/22 08:29 Dose: 450 mg Loratadine (Loratadine 10 Mg Tablet) 10 mg PO DAILY [facility] Last Admin: 11/06/22 08:29 Dose: 10 mg Lorazepam (Lorazepam 1 Mg Tablet) 1 mg PO TID PRN PRN Reason: Anxiety Last Admin: 11/05/22 12:29 Dose: 1 mg Magn[place] Hydroxide (Milk Of Magnesia 30 Ml Oral.Susp) 30 ml PO DAILY PRN PRN Reason: Constipation Olanzapine (Olanzapine 10 Mg Vial) 10 mg IM BID PRN PRN Reason: refusal of perphenazine Olanzapine (Olanzapine 5 Mg Tablet) 5 mg PO Q4H PRN PRN Reason: agitation Omeprazole (Omeprazole 20 Mg Capsule.) 20 mg PO DAILY@0630 [facility] Last Admin: 11/06/22 08:30 Dose: 20 mg Perphenazine (Perphenazine 8 Mg Tablet) 16 mg PO BID [facility] Last Admin: 11/06/22 08:29 Dose: 16 mg Senna (Sennosides 8.6 Mg Tablet) 8.6 mg PO BEDTIME [facility] Last Admin: 11/05/22 20:36 Dose: 8.6 mg Simethicone (Simethicone 80 Mg Tab.Chew) 80 mg PO QIDWMHS [facility] Last Admin: 11/06/22 12:17 Dose: 80 mg Trazodone HCl (Trazodone Hcl 50 Mg Tablet) 50 mg PO BEDTIME MRX1 PRN PRN Reason: Insomnia Allergies Allergies Allergy/AdvReac Type Severity Reaction Status Date / Time clozapine Allergy Unknown Verified 06/30/22 06:36 metronidazole [From Flagyl] Allergy Unknown Verified 06/30/22 06:36 paliperidone Allergy Unknown Verified 06/30/22 06:36 Assessment & Plan Assessment & Plan (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 obtain kayden's order and medicate accordingly. 11/03: kayden's order authorizes trilafon and zyprexa (seroquel, latuda, vraylar as secondaries). unclear if perphenazine is meant to be 16 BID (ED note) versus 15/05/20 (paperwork appearing with legal materials). will start with 16 BID today and attempt to clarify dosing tomorrow. olanzapine IM PRN perphenazine refusal. 11/04: continue current medications regimen as pt is calm, cooperative, and currently denying any psychotic Sx. 11/05 continue current medication. Will add prn olanzapine as pt last night and today somewhat agitated by psychosis. 11/06 continue current treatment plan Reason for contiued inpatient stay Substantial Risk for: harm to self, harm to others, inability to function and rapid decompensation Time Spent With Patient Time: Total time managing care of this patient today ____ minutes.
[2022-11-06] MEDS: Sennosides 8.6 MG TABLET PO (20:32)
[2022-11-06 20:35] VITALS: BP 139/80; PULSE 81; RESP 18; TEMP 36.6; O2SAT 100
[2022-11-07 08:00] VITALS: BP 122/75; PULSE 69; RESP 16; TEMP 36.8; O2SAT 100
[2022-11-07] MEDS: Omeprazole 20 MG CAPSULE.DR PO (08:34)
[2022-11-07] MEDS: Simethicone 80 MG TAB.CHEW PO ×2 (08:34→11:33)
[2022-11-07] MEDS: Perphenazine 8 MG TABLET 16 MG PO ×2 (08:34→23:47)
[2022-11-07] MEDS: Loratadine 10 MG TABLET PO (08:34)
[2022-11-07] MEDS: Benztropine Mesylate 1 MG TABLET PO ×2 (08:35→23:47)
[2022-11-07] MEDS: Lithium Carbonate ER 450 MG TABLET.ER PO ×2 (08:35→23:47)
[2022-11-07] MEDS: Docusate Sodium 100 MG CAPSULE PO ×2 (08:36→23:47)
[2022-11-07] MEDS: Ferrous Sulfate 324 MG TABLET.DR PO (08:36)
--- NOTE | 2022-11-07 10:08 | P.PNPSI_ITS ---
Subjective Subjective Date of Service: 11/07/22 Reason For Visit: psychosis Interim History: Per nursing, pt still intermittently yelling and agitated; wearing headphones in common area; quiet this am, polite; states she wants to be discharged soon; anxious; reports hearing voices telling her about her servants and accusing her of doing something wrong. She denies SI/HI. Medication Compliance: No Side effects from medications: No Attending Groups: No Review of Systems Acute medical concerns: No Medical Review of Systems: unchanged Review of Systems Review of Systems Constitutional : No Fever, No Chills ENT/Mouth : No Ear Pain, No Nasal Congestion, No sore throat Eyes: No Eye Pain, No Swelling, No Redness Cardiovascular : No Chest Pain, No SOB Respiratory : No Cough, No Sputum, No Dyspnea Gastrointestinal : No ingestions, No Nausea, No Vomiting, No Diarrhea, No Hematochezia, No Melena Genitourinary : No Dysuria, No Urinary Frequency, No Hematuria Musculoskeletal : No Myalgias Skin : No Skin Lesions, No rash Neuro : No Weakness, No Numbness, No Paresthesias, No Dizziness, No Headache Psych : No Anxiety, + Depression, No SI, No thoughts of self injury, No HI, No AVH, Heme/Lymph: No Lymphadenopathy Endocrine : No Polyuria, No Polydipsia Yes all other systems are reviewed and are negative Mental Status Exam Mental Status Exam Narrative: adequately dressed, disheveled. calm and cooperative. speech nml rate, amount, loudness, tone, latency. thoughts linear and logical in brief, superficial engagement. affect constricted, normo-intense, non-labile. mood good. no SI/HI; reports auditory hallucinations telling her that her servants cant visit and stating he communicates telepathically to friend Diagnostics Vital Signs (24Hr): Vital Signs - 24 hr 11/06/22 20:35 11/07/22 08:00 Temperature 97.8 F 98.3 F Pulse Rate 81 69 Respiratory Rate 18 16 Blood Pressure 139/80 122/75 Pulse Oximetry 100 100 Oxygen Delivery Method Room Air Room Air BMI result Body Mass Index 34.3 Labs 11/01/22 12:22 11/02/22 08:30 Imaging Radiology Impressions: ITS Impressions Abdomen/Pelvis CT 11/03/22 16:53 IMPRESSION: 1. No acute intra-abdominal or intrapelvic abnormalities. Normal appendix 2. A few borderline enlarged mesenteric lymph nodes, possibly reactive in nature. 3. Moderate volume of well-formed stool throughout the colon. Fleischner guidelines were followed. Medications Medications Current Medications Acetaminophen (Acetaminophen 325 Mg Tablet) 650 mg PO Q6H PRN PRN Reason: Headache/Pain Mild Scale (1-3) Al Hydroxide/Mg Hydroxide (Magnesium Hydrox/Alum Hydrox 30 Ml Oral.Susp) 30 ml PO Q6H PRN PRN Reason: Heartburn/Nausea Benztropine Mesylate (Benztropine Mesylate 1 Mg Tablet) 1 mg PO BID [facility] Last Admin: 11/07/22 08:35 Dose: 1 mg Docusate Sodium (Docusate Sodium 100 Mg Capsule) 100 mg PO BID [facility] Last Admin: 11/07/22 08:36 Dose: 100 mg Ferrous Sulfate (Ferrous Sulfate 324 Mg Tablet.) 324 mg PO DAILY [facility] Last Admin: 11/07/22 08:36 Dose: 324 mg Hydroxyzine HCl (Hydroxyzine Hcl 25 Mg Tablet) 25 mg PO Q6H PRN PRN Reason: Anxiety Last Admin: 11/04/22 20:39 Dose: 25 mg [place] Carbonate ([place] Carbonate Er 450 Mg Tablet.Er) 450 mg PO BID [facility] Last Admin: 11/07/22 08:35 Dose: 450 mg Loratadine (Loratadine 10 Mg Tablet) 10 mg PO DAILY [facility] Last Admin: 11/07/22 08:34 Dose: 10 mg Lorazepam (Lorazepam 1 Mg Tablet) 1 mg PO TID PRN PRN Reason: Anxiety Last Admin: 11/05/22 12:29 Dose: 1 mg Magnesium Hydroxide (Milk Of Magnesia 30 Ml Oral.Susp) 30 ml PO DAILY PRN PRN Reason: Constipation Olanzapine (Olanzapine 10 Mg Vial) 10 mg IM BID PRN PRN Reason: refusal of perphenazine Olanzapine (Olanzapine 5 Mg Tablet) 5 mg PO Q4H PRN PRN Reason: agitation Omeprazole (Omeprazole 20 Mg Capsule.) 20 mg PO DAILY@0630 [facility] Last Admin: 11/07/22 08:34 Dose: 20 mg Perphenazine (Perphenazine 8 Mg Tablet) 16 mg PO BID [facility] Last Admin: 11/07/22 08:34 Dose: 16 mg Senna (Sennosides 8.6 Mg Tablet) 8.6 mg PO BEDTIME [facility] Last Admin: 02/11/23 20:32 Dose: 8.6 mg Simethicone (Simethicone 80 Mg Tab.Chew) 80 mg PO QIDWMHS [facility] Last Admin: 11/07/22 08:34 Dose: 80 mg Trazodone HCl (Trazodone Hcl 50 Mg Tablet) 50 mg PO BEDTIME MRX1 PRN PRN Reason: Insomnia Allergies Allergies Allergy/AdvReac Type Severity Reaction Status Date / Time clozapine Allergy Unknown Verified 06/30/22 06:36 metronidazole [From Flagyl] Allergy Unknown Verified 06/30/22 06:36 paliperidone Allergy Unknown Verified 06/30/22 06:36 Assessment & Plan Assessment & Plan (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 obtain kayden's order and medicate accordingly. 11/03: kayden's order authorizes trilafon and zyprexa (seroquel, latuda, vraylar as secondaries). unclear if perphenazine is meant to be 16 BID (ED note) versus 15/05/20 (paperwork appearing with legal materials). will start with 16 BID today and attempt to clarify dosing tomorrow. olanzapine IM PRN perphenazine refusal. 11/04: continue current medications regimen as pt is calm, cooperative, and currently denying any psychotic Sx. 11/05 continue current medication. Will add prn olanzapine as pt last night and today somewhat agitated by psychosis. 11/06 continue current treatment plan 11/07/ continue treatment plan Reason for contiued inpatient stay Substantial Risk for: inability to function, rapid decompensation and med/psych decompensation Time Spent With Patient Time: Total time managing care of this patient today ____ minutes.
[2022-11-07 16:48] VITALS: BP 161/85; PULSE 93; TEMP 36.6; O2SAT 100
[2022-11-07] MEDS: Sennosides 8.6 MG TABLET PO (23:47)
[2022-11-08] MEDS: LORazepam 1 MG TABLET PO (04:22)
[2022-11-08] MEDS: OLANZapine 5 MG TABLET PO (04:22)
[2022-11-08 08:27] VITALS: BP 131/90; PULSE 108; TEMP 36.4; O2SAT 100
[2022-11-08] MEDS: Benztropine Mesylate 1 MG TABLET PO ×2 (10:24→22:32)
[2022-11-08] MEDS: Perphenazine 8 MG TABLET 16 MG PO ×2 (10:24→22:31)
[2022-11-08] MEDS: Lithium Carbonate ER 450 MG TABLET.ER PO ×2 (10:25→22:32)
[2022-11-08] MEDS: Docusate Sodium 100 MG CAPSULE PO ×2 (10:25→22:30)
[2022-11-08] MEDS: Simethicone 80 MG TAB.CHEW PO ×3 (10:25→17:45)
[2022-11-08] MEDS: Omeprazole 20 MG CAPSULE.DR PO (10:25)
[2022-11-08] MEDS: Ferrous Sulfate 324 MG TABLET.DR PO (10:26)
[2022-11-08] MEDS: Loratadine 10 MG TABLET PO (10:26)
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
[2022-11-08] MEDS: Sennosides 8.6 MG TABLET PO (22:30)
[2022-11-09] MEDS: Omeprazole 20 MG CAPSULE.DR PO (06:26)
[2022-11-09 08:30] VITALS: BP 140/86; PULSE 76; RESP 18; TEMP 36.6; O2SAT 100
[2022-11-09] MEDS: Simethicone 80 MG TAB.CHEW PO ×4 (09:23→21:11)
[2022-11-09] MEDS: Lithium Carbonate ER 450 MG TABLET.ER PO ×2 (09:24→21:11)
[2022-11-09] MEDS: Docusate Sodium 100 MG CAPSULE PO ×2 (09:24→21:11)
[2022-11-09] MEDS: Loratadine 10 MG TABLET PO (09:24)
[2022-11-09] MEDS: Perphenazine 8 MG TABLET 16 MG PO ×2 (09:25→21:11)
[2022-11-09] MEDS: Benztropine Mesylate 1 MG TABLET PO ×2 (09:25→21:12)
[2022-11-09] MEDS: Ferrous Sulfate 324 MG TABLET.DR PO (09:25)
--- NOTE | 2022-11-09 13:29 | P.PNPSI_ITS ---
Subjective Subjective Date of Service: 11/09/22 Reason For Visit: psychosis Subjective Notes: Conditional Voluntary and 3 Day Interim History: Pt reports hearing voices, someone accusing her but states she feels better. No behavioral concerns. Pt sleeping through the night. She has not shown any aggression towards self or others. No SI/HI. She is taking medications as prescribed. She signed 3 day and hopes to go home soon. Medication Compliance: Yes Review of Systems Review of Systems Constitutional : No Fever, No Chills ENT/Mouth : No Ear Pain, No Nasal Congestion, No sore throat Eyes: No Eye Pain, No Swelling, No Redness Cardiovascular : No Chest Pain, No SOB Respiratory : No Cough, No Sputum, No Dyspnea Gastrointestinal : No ingestions, No Nausea, No Vomiting, No Diarrhea, No Hematochezia, No Melena Genitourinary : No Dysuria, No Urinary Frequency, No Hematuria Musculoskeletal : No Myalgias Skin : No Skin Lesions, No rash Neuro : No Weakness, No Numbness, No Paresthesias, No Dizziness, No Headache Psych : No Anxiety, + Depression, No SI, No thoughts of self injury, No HI, No AVH, Heme/Lymph: No Lymphadenopathy Endocrine : No Polyuria, No Polydipsia Yes all other systems are reviewed and are negative Mental Status Exam Mental Status Exam Narrative: adequately dressed, disheveled. calm and cooperative. speech nml rate, amount, loudness, tone, latency. thoughts linear and logical in brief, superficial engagement. affect constricted, normo-intense, non-labile. mood good. no SI/HI; reports auditory hallucinations telling her that her servants cant visit and stating he communicates telepathically to friend Diagnostics Vital Signs (24Hr): Vital Signs - 24 hr 11/09/22 08:30 Temperature 97.9 F Pulse Rate 76 Respiratory Rate 18 Blood Pressure 140/86 H Pulse Oximetry 100 Oxygen Delivery Method Room Air BMI result Body Mass Index 34.3 Labs 11/01/22 12:22 11/02/22 08:30 Imaging Radiology Impressions: ITS Impressions Abdomen/Pelvis CT 11/03/22 16:53 IMPRESSION: 1. No acute intra-abdominal or intrapelvic abnormalities. Normal appendix 2. A few borderline enlarged mesenteric lymph nodes, possibly reactive in nature. 3. Moderate volume of well-formed stool throughout the colon. Fleischner guidelines were followed. Medications Medications Current Medications Acetaminophen (Acetaminophen 325 Mg Tablet) 650 mg PO Q6H PRN PRN Reason: Headache/Pain Mild Scale (1-3) Al Hydroxide/Mg Hydroxide (Magnesium Hydrox/Alum Hydrox 30 Ml Oral.Susp) 30 ml PO Q6H PRN PRN Reason: Heartburn/Nausea Benztropine Mesylate (Benztropine Mesylate 1 Mg Tablet) 1 mg PO BID [facility] Last Admin: 11/09/22 09:25 Dose: 1 mg Docusate Sodium (Docusate Sodium 100 Mg Capsule) 100 mg PO BID [facility] Last Admin: 11/09/22 09:24 Dose: 100 mg Ferrous Sulfate (Ferrous Sulfate 324 Mg Tablet.) 324 mg PO DAILY [facility] Last Admin: 11/09/22 09:25 Dose: 324 mg Hydroxyzine HCl (Hydroxyzine Hcl 25 Mg Tablet) 25 mg PO Q6H PRN PRN Reason: Anxiety Last Admin: 11/04/22 20:39 Dose: 25 mg [place] Carbonate ([place] Carbonate Er 450 Mg Tablet.Er) 450 mg PO BID [facility] Last Admin: 11/09/22 09:24 Dose: 450 mg Loratadine (Loratadine 10 Mg Tablet) 10 mg PO DAILY [facility] Last Admin: 11/09/22 09:24 Dose: 10 mg Lorazepam (Lorazepam 1 Mg Tablet) 1 mg PO TID PRN PRN Reason: Anxiety Magnesium Hydroxide (Milk Of Magnesia 30 Ml Oral.Susp) 30 ml PO DAILY PRN PRN Reason: Constipation Olanzapine (Olanzapine 10 Mg Vial) 10 mg IM BID PRN PRN Reason: refusal of perphenazine Olanzapine (Olanzapine 5 Mg Tablet) 5 mg PO Q4H PRN PRN Reason: agitation Last Admin: 11/08/22 04:22 Dose: 5 mg Omeprazole (Omeprazole 20 Mg Capsule.) 20 mg PO DAILY@0630 [facility] Last Admin: 11/09/22 06:26 Dose: 20 mg Perphenazine (Perphenazine 8 Mg Tablet) 16 mg PO BID [facility] Last Admin: 11/09/22 09:25 Dose: 16 mg Senna (Sennosides 8.6 Mg Tablet) 8.6 mg PO BEDTIME [facility] Last Admin: 11/08/22 22:30 Dose: 8.6 mg Simethicone (Simethicone 80 Mg Tab.Chew) 80 mg PO QIDWMHS [facility] Last Admin: 11/09/22 12:47 Dose: 80 mg Trazodone HCl (Trazodone Hcl 50 Mg Tablet) 50 mg PO BEDTIME PRN PRN Reason: Insomnia Allergies Allergies Allergy/AdvReac Type Severity Reaction Status Date / Time clozapine Allergy Unknown Verified 06/30/22 06:36 metronidazole [From Flagyl] Allergy Unknown Verified 06/30/22 06:36 paliperidone Allergy Unknown Verified 06/30/22 06:36 Assessment & Plan Assessment & Plan (1) Schizophrenia, acute: Status: Acute Code(s): F23 - Brief psychotic disorder (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 obtain kayden's order and medicate accordingly. 11/03: kayden's order authorizes trilafon and zyprexa (seroquel, latuda, vraylar as secondaries). unclear if perphenazine is meant to be 16 BID (ED note) versus 15/05/20 (paperwork appearing with legal materials). will start with 16 BID today and attempt to clarify dosing tomorrow. olanzapine IM PRN perphenazine refusal. 11/04: continue current medications regimen as pt is calm, cooperative, and currently denying any psychotic Sx. 11/05 continue current medication. Will add prn olanzapine as pt last night and today somewhat agitated by psychosis. 11/06 continue current treatment plan 11/07/ continue treatment plan 11/08 continue tx. 11/09 continue tx. pending collateral from as pt appears back to baseline. Patient educated on: diagnosis Reason for contiued inpatient stay Substantial Risk for: inability to function Time Spent With Patient Time: Total time managing care of this patient today ____ minutes.
[2022-11-09 21:00] VITALS: BP 105/59; PULSE 89; RESP 16; TEMP 35.7; O2SAT 96
[2022-11-09] MEDS: Sennosides 8.6 MG TABLET PO (21:11)
[2022-11-10 09:02] VITALS: BP 137/93; PULSE 77; RESP 16; TEMP 36.8; O2SAT 100
[2022-11-10] MEDS: Lithium Carbonate ER 450 MG TABLET.ER PO ×2 (09:03→20:37)
[2022-11-10] MEDS: Benztropine Mesylate 1 MG TABLET PO ×2 (09:04→20:37)
[2022-11-10] MEDS: Ferrous Sulfate 324 MG TABLET.DR PO (09:04)
[2022-11-10] MEDS: Omeprazole 20 MG CAPSULE.DR PO (09:05)
[2022-11-10] MEDS: Perphenazine 8 MG TABLET 16 MG PO ×2 (09:05→20:37)
[2022-11-10] MEDS: Docusate Sodium 100 MG CAPSULE PO ×2 (09:05→20:37)
[2022-11-10] MEDS: Simethicone 80 MG TAB.CHEW PO ×4 (09:06→20:37)
[2022-11-10] MEDS: Loratadine 10 MG TABLET PO (09:06)
--- NOTE | 2022-11-10 10:20 | HO.PSYCHPN ---
Subjective Subjective Date of Service: 11/10/22 Reason For Visit: psychosis Subjective Notes: Conditional Voluntary Interim History: Pt reports she is doing well. She denies SI/HI. She hears music as coping mechanism. Still hearing some voices, although she denies these are voices. No behavioral concerns. taking medications as prescribed, she is hoping to step down to respite tomorrow. Medication Compliance: Yes Side effects from medications: No Review of Systems Review of Systems Constitutional : No Fever, No Chills ENT/Mouth : No Ear Pain, No Nasal Congestion, No sore throat Eyes: No Eye Pain, No Swelling, No Redness Cardiovascular : No Chest Pain, No SOB Respiratory : No Cough, No Sputum, No Dyspnea Gastrointestinal : No ingestions, No Nausea, No Vomiting, No Diarrhea, No Hematochezia, No Melena Genitourinary : No Dysuria, No Urinary Frequency, No Hematuria Musculoskeletal : No Myalgias Skin : No Skin Lesions, No rash Neuro : No Weakness, No Numbness, No Paresthesias, No Dizziness, No Headache Psych : No Anxiety, + Depression, No SI, No thoughts of self injury, No HI, No AVH, Heme/Lymph: No Lymphadenopathy Endocrine : No Polyuria, No Polydipsia Yes all other systems are reviewed and are negative Mental Status Exam Mental Status Exam Narrative: adequately dressed, disheveled. calm and cooperative. speech nml rate, amount, loudness, tone, latency. thoughts linear and logical in brief, superficial engagement. affect constricted, normo-intense, non-labile. mood good. no SI/HI; reports auditory hallucinations telling her that her servants cant visit and stating he communicates telepathically to friend Diagnostics Vital Signs (24Hr): Vital Signs - 24 hr 11/10/22 09:02 11/10/22 20:35 Temperature 98.2 F 97.6 F Pulse Rate 77 76 Respiratory Rate 16 18 Blood Pressure 137/93 H 119/72 Pulse Oximetry 100 98 Oxygen Delivery Method Room Air Room Air BMI result Body Mass Index 34.3 Labs 11/01/22 12:22 11/02/22 08:30 Imaging Radiology Impressions: ITS Impressions Abdomen/Pelvis CT 11/03/22 16:53 IMPRESSION: 1. No acute intra-abdominal or intrapelvic abnormalities. Normal appendix 2. A few borderline enlarged mesenteric lymph nodes, possibly reactive in nature. 3. Moderate volume of well-formed stool throughout the colon. Fleischner guidelines were followed. Medications Medications Current Medications Acetaminophen (Acetaminophen 325 Mg Tablet) 650 mg PO Q6H PRN PRN Reason: Headache/Pain Mild Scale (1-3) Al Hydroxide/Mg Hydroxide (Magnesium Hydrox/Alum Hydrox 30 Ml Oral.Susp) 30 ml PO Q6H PRN PRN Reason: Heartburn/Nausea Benztropine Mesylate (Benztropine Mesylate 1 Mg Tablet) 1 mg PO BID [facility] Last Admin: 11/10/22 20:37 Dose: 1 mg Docusate Sodium (Docusate Sodium 100 Mg Capsule) 100 mg PO BID [facility] Last Admin: 11/10/22 20:37 Dose: 100 mg Ferrous Sulfate (Ferrous Sulfate 324 Mg Tablet.) 324 mg PO DAILY [facility] Last Admin: 11/10/22 09:04 Dose: 324 mg Hydroxyzine HCl (Hydroxyzine Hcl 25 Mg Tablet) 25 mg PO Q6H PRN PRN Reason: Anxiety Last Admin: 11/04/22 20:39 Dose: 25 mg [place] Carbonate ([place] Carbonate Er 450 Mg Tablet.Er) 450 mg PO BID [facility] Last Admin: 11/10/22 20:37 Dose: 450 mg Loratadine (Loratadine 10 Mg Tablet) 10 mg PO DAILY [facility] Last Admin: 11/10/22 09:06 Dose: 10 mg Lorazepam (Lorazepam 1 Mg Tablet) 1 mg PO TID PRN PRN Reason: Anxiety Last Admin: 11/10/22 11:53 Dose: 1 mg Magnesium Hydroxide (Milk Of Magnesia 30 Ml Oral.Susp) 30 ml PO DAILY PRN PRN Reason: Constipation Olanzapine (Olanzapine 10 Mg Vial) 10 mg IM BID PRN PRN Reason: refusal of perphenazine Olanzapine (Olanzapine 5 Mg Tablet) 5 mg PO Q4H PRN PRN Reason: agitation Last Admin: 11/10/22 11:52 Dose: 5 mg Omeprazole (Omeprazole 20 Mg Capsule.) 20 mg PO DAILY@0630 [facility] Last Admin: 11/10/22 09:05 Dose: 20 mg Perphenazine (Perphenazine 8 Mg Tablet) 16 mg PO BID [facility] Last Admin: 11/10/22 20:37 Dose: 16 mg Senna (Sennosides 8.6 Mg Tablet) 8.6 mg PO BEDTIME [facility] Last Admin: 11/10/22 20:37 Dose: 8.6 mg Simethicone (Simethicone 80 Mg Tab.Chew) 80 mg PO QIDWMHS [facility] Last Admin: 11/10/22 20:37 Dose: 80 mg Trazodone HCl (Trazodone Hcl 50 Mg Tablet) 50 mg PO BEDTIME PRN PRN Reason: Insomnia Allergies Allergies Allergy/AdvReac Type Severity Reaction Status Date / Time clozapine Allergy Unknown Verified 06/30/22 06:36 metronidazole [From Flagyl] Allergy Unknown Verified 06/30/22 06:36 paliperidone Allergy Unknown Verified 06/30/22 06:36 Assessment & Plan Assessment & Plan (1) Schizophrenia, acute: Status: Acute Code(s): F23 - Brief psychotic disorder (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 obtain kayden's order and medicate accordingly. 11/03: kayden's order authorizes trilafon and zyprexa (seroquel, latuda, vraylar as secondaries). unclear if perphenazine is meant to be 16 BID (ED note) versus 15/05/20 (paperwork appearing with legal materials). will start with 16 BID today and attempt to clarify dosing tomorrow. olanzapine IM PRN perphenazine refusal. 11/04: continue current medications regimen as pt is calm, cooperative, and currently denying any psychotic Sx. 11/05 continue current medication. Will add prn olanzapine as pt last night and today somewhat agitated by psychosis. 11/06 continue current treatment plan 11/07/ continue treatment plan 11/08 continue tx. 11/09 continue tx. pending collateral from as pt appears back to baseline. 11/10 continue tx. Reason for contiued inpatient stay Substantial Risk for: stable for discharge Time Spent With Patient Time: Total time managing care of this patient today ____ minutes.
[2022-11-10] MEDS: OLANZapine 5 MG TABLET PO (11:52)
[2022-11-10] MEDS: LORazepam 1 MG TABLET PO (11:53)
[2022-11-10 20:35] VITALS: BP 119/72; PULSE 76; RESP 18; TEMP 36.4; O2SAT 98
[2022-11-10] MEDS: Sennosides 8.6 MG TABLET PO (20:37)
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
[2022-11-11] MEDS: Ferrous Sulfate 324 MG TABLET.DR PO (08:51)
[2022-11-11] MEDS: Docusate Sodium 100 MG CAPSULE PO (08:51)
[2022-11-11] MEDS: Omeprazole 20 MG CAPSULE.DR PO (08:51)
[2022-11-11] MEDS: Loratadine 10 MG TABLET PO (08:51)
[2022-11-11] MEDS: Lithium Carbonate ER 450 MG TABLET.ER PO (08:52)
[2022-11-11] MEDS: Benztropine Mesylate 1 MG TABLET PO (08:52)
[2022-11-11] MEDS: Perphenazine 8 MG TABLET 16 MG PO (08:52)
[2022-11-11] MEDS: Simethicone 80 MG TAB.CHEW PO (08:52)
[2022-11-11 09:07] LABS: COVID-19 Test Negative (Negative); IDNOW Serial# 9DB6401D
[2022-11-11 09:13] VITALS: BP 129/70; PULSE 84; RESP 16; TEMP 36.4; O2SAT 100
== END 2022-11-11 10:30 | disposition home or self-care (01) | DRG 750 ==
LOC: HO.ED 17:19 → HO.PADLT16 22:51
PROVIDERS: Physician Assistant Medical; Social Worker; Admitting Provider Psychiatry & Neurology Psychiatry; Emergency Provider Emergency Medicine; Visit Provider Psychiatry & Neurology Psychiatry
DX: F20.9 Schizophrenia, unspecified (principal); Q86.0 Fetal alcohol syndrome (dysmorphic); Z20.822 Contact with and (suspected) exposure to COVID-19; Z88.8 Allergy status to other drugs, medicaments and biological substances; Z79.899 Other long term (current) drug therapy
CPT/HCPCS: 0241U; 36415; 74176; 80053; 80061; 80307; 81003; 82077; 83690; 83735; 84702; 85025; 87635; 93005; 99285

== ENCOUNTER 2023-04-06 12:46 | Inpatient (IN) | payer OTHER, SELFPAY ==
[2023-04-06 12:49] VITALS: BP 140/100; BP 142/86; PULSE 100; PULSE 90; RESP 16; TEMP 36.6; O2SAT 95; O2SAT 99; BMI 37.8
[2023-04-06 13:33] LABS: Appearance Urine Clear; Color Urine Yellow; Glucose Urine UA Negative (Negative); Leukocyte Esterase Urine Negative (Negative); Nitrite Urine Negative (Negative); Specific Gravity - Urine <= 1.005 (1.005-1.025); Urine Blood Negative (Negative); Urine Ketones Negative (Negative); Urine Protein Negative (Neg-Trace)
[2023-04-06 13:34] LABS: UPreg QC Valid YES; Urine Pregnancy NEGATIVE (NEGATIVE)
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
[2023-04-06 14:47] LABS: Amphetamine Screen Urine Not Detected (Not Detect); Barbiturates, Urine Not Detected (Not Detect); Benzodiazepines Screen Urine Not Detected (Not Detect); Cannabinoid Screen Urine Not Detected (Not Detect); Cocaine Screen Urine Not Detected (Not Detect); Fentanyl, urine Not Detected (Not Detect); Opiate Screen Urine Not Detected (Not Detect); Phencyclidine Screen Urine Not Detected (Not Detect)
[2023-04-06 14:50] LABS: MANUAL DIFF FLAG NO
[2023-04-06 14:52] LABS: Basophils Percent Auto 0.7 % (0-2); Eosinophils Absolute Auto 0.3 X10*3/uL (0.0-0.4); Eosinophils Percent Auto 4.7 % (0-4); Hematocrit 33.9 % (37.0-47.0); Hemoglobin 10.4 g/dl (12.0-16.0); Imm Gran Abs Auto 0.01 X10*3/uL (0.00-0.03); Imm Gran Pct Auto 0.2 % (0.0-0.4); Lymphocytes Absolute Auto 1.8 X10*3/uL (1.2-4.9); Lymphocytes Percent Auto 31.9 % (20-40); Mean Corpuscular HGB Conc 30.7 g/dl (31.0-35.0); Mean Corpuscular Hemoglobin 25.4 pg (27.0-33.0); Mean Corpuscular Volume 82.9 fL (80.0-98.0); Mean Platelet Volume 10.5 fL (9.4-12.3); Monocytes Absolute Auto 0.4 X10*3/uL (0.1-1.2); Monocytes Percent Auto 7.5 % (2-11); Neutrophils Absolute Auto 3.2 x10*3/uL (2.0-8.3); Platelet Count 262 X10*3/uL (160-400); Red Blood Count 4.09 X10*6/uL (4.20-5.50); White Blood Count 5.8 X10*3/uL (4.8-10.8)
[2023-04-06 15:02] LABS: Lithium 0.55 mmol/L (0.60-1.20)
[2023-04-06 15:21] LABS: Anion Gap 12 (12-20); Blood Urea Nitrogen 12 mg/dL (9-16); Calcium 10.5 mg/dL (8.4-10.2); Carbon Dioxide 25 mmol/L (22-29); Chloride 111 mmol/L (96-108); Creatinine Clr Calc Pharmacy 107.8; Estimated Glomerular Filt Rate > 60; Ethanol < 10 mg/dL; Glucose Random 87 mg/dL (60-115); Potassium 3.6 mmol/L (3.3-5.1); Sodium 144 mmol/L (135-145)
--- NOTE | 2023-04-06 15:25 | PC.NURSE ---
Report taken, pt appears to be sleeping at this time, resp reg and even. Awaiting crisis eval at this time.
[2023-04-06 17:27] VITALS: BP 137/86; PULSE 75; RESP 18; TEMP 36.8; O2SAT 96
--- NOTE | 2023-04-06 18:32 | PC.NURSE ---
Per care team, plan for pt to go inpatient. Pt calm and cooperative at this time, requesting to take a shower. Soft spoken with a flat affect.
--- NOTE | 2023-04-06 20:18 | PC.NURSE ---
patient in the unit being visible walking interacting with staff having no distress at this time patient vitals are stable patient received all snacks and medications with no issues patient will continue to be monitored for safety and encouraged to reach out to staff if any concerns patient in the process of being admitted to the .
--- NOTE | 2023-04-07 | ECG_ITS ---
Test Reason : CHECK QT Blood Pressure : / mmHG Vent. Rate : 063 BPM Atrial Rate : 063 BPM P-R Int : 152 ms QRS Dur : 086 ms QT Int : 430 ms P-R-T Axes : 064 067 043 degrees QTc Int : 440 ms Normal sinus rhythm with sinus arrhythmia Normal ECG When compared with ECG of 01-NOV-2022 11:58, No significant change was found Referred By: Fatoumata Stokes Electronically Signed By:MOE JERNIGAN MD
--- NOTE | 2023-04-07 00:37 | PC.NURSE ---
patient in bed with eyes closed patient showing no distress at this time patient will continue to be monitored for safety
[2023-04-07 03:54] VITALS: BP 136/91; PULSE 76; RESP 16; TEMP 36.6; O2SAT 100
--- NOTE | 2023-04-07 08:26 | PC.NURSE ---
pt received in bed. walking with steady gait, alert and oriented. is concerned about going upstairs. will continue to monitor.
[2023-04-07 09:08] LABS: COVID-19 Test Negative (Negative); IDNOW Serial# BCCEAD1C
[2023-04-07 09:14] VITALS: BP 165/95; PULSE 118; RESP 16; TEMP 36.5; O2SAT 100
--- NOTE | 2023-04-07 10:59 | PHA.MEDREC ---
Pharmacy Consult ? Medication Reconciliation Pharmacy has completed the medication reconciliation. Med rec complete using list from [facility].
[2023-04-07 11:33] VITALS: BP 159/80; PULSE 82; RESP 16; TEMP 36.9; O2SAT 99
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
[2023-04-07] MEDS: OLANZapine 10 MG TABLET PO (12:36)
[2023-04-07] MEDS: Acetaminophen 325 MG TABLET 650 MG PO (13:17)
[2023-04-07] MEDS: chlorproMAZINE HCl 100 MG TABLET PO (13:46)
[2023-04-07] MEDS: LORazepam 1 MG TABLET 2 MG PO (13:47)
[2023-04-07 14:00] VITALS: BMI 37.4
--- NOTE | 2023-04-07 14:43 | PC.NURSE ---
Vanda was admitted to M3 at [address] [facility] Pod on CV for treatment of exacerbation of psychosis and aggressive outbursts at her [facility].?Her most recent IPLOC was at [facility] this month. Per pt report she did not mean to skip her am meds but she has trouble waking up in the morning and the staff certified to give meds are only at the [facility] briefly. By the time I can get up they already left so I miss my meds even though I want to take them. Vanda ia alert, fully oriented, pleasant and cooperative with admission process. She reports 8/10 depression and 6/10 anxiety. It's about my past. Vanda reports command AH to harm self and VH. She is preoccupied with a belief that others have and will accuse her of stealing their belongings. Thought process is disorganized. When she tried to explain her thought process she tells this nurse, You're nice to me because you don't know that I spit my meds at you in the future. Vanda denies current ideation, plan or intent to harm self or others. Appetite is good. She reports that sleep is good. Focus is fair. Although crisis assessment indicates lack of attention to hygiene, Vanda showered in the pod prior to coming to the unit and hygiene is currently within normal limits. Patient denies substance Issues of any kind. Tox screen negative. U preg negative. Skin/ contraband check completed without issue. Medical Issues?include dx of alcohol syndrome and various aches and pains relieved by tylenol. Vanda is placed on 15 minute Safety Checks
[2023-04-07] MEDS: Perphenazine 8 MG TABLET 16 MG PO (22:26)
[2023-04-07] MEDS: Benztropine Mesylate 1 MG TABLET PO (22:26)
[2023-04-08 08:49] VITALS: BP 163/97; PULSE 85; RESP 18; TEMP 36.1; O2SAT 100
[2023-04-08] MEDS: Lithium Carbonate ER 450 MG TABLET.ER PO ×2 (08:51→20:40)
[2023-04-08] MEDS: Perphenazine 8 MG TABLET 16 MG PO ×2 (08:51→20:40)
[2023-04-08] MEDS: Benztropine Mesylate 1 MG TABLET PO ×2 (08:51→20:40)
[2023-04-08] MEDS: Loratadine 10 MG TABLET PO (08:52)
[2023-04-08] MEDS: Ferrous Sulfate 324 MG TABLET.DR PO (08:52)
--- NOTE | 2023-04-08 11:57 | HO.PSYCHPN ---
Subjective Subjective Date of Service: 04/08/23 Reason For Visit: self harm behaviors Interim History: feeling improved with return to former regimen yesterday. does appear to have pill-rolling tremor of her left hand as well as ruminating movements of her lower jaw. per staff, eating well, sleep fair. focus fair. pseudocyesis. slept on floor of sensory room for unclear reasons (did not have a roommate in her own room). Mental Status Exam Mental Status Exam Narrative: disheveled, wearing hospital hammad. cooperative. no PMA/PMR. speech nml rate, nml amount, loudness, tone, latency. thoughts linear and logical. affect constricted, normo-intense, non-labile. mood good and pretty even. AH improved, SI/HI improved. Diagnostics Vital Signs (24Hr): Vital Signs - 24 hr 04/08/23 08:49 Temperature 97.0 F Pulse Rate 85 Respiratory Rate 18 Blood Pressure 163/97 H Pulse Oximetry 100 Oxygen Delivery Method Room Air BMI result Body Mass Index 37.4 Labs 04/06/23 14:46 04/06/23 14:46 Labs: Laboratory Results - last 48 hr 04/06/23 04/06/23 04/06/23 13:20 13:21 13:21 WBC RBC Hgb Hct MCV MCH MCHC RDW Plt Count MPV Immature Gran % (Auto) Neut % (Auto) Lymph % (Auto) Dewey % (Auto) Eos % (Auto) Baso % (Auto) Lymph # (Auto) Dewey # (Auto) Eos # (Auto) Baso # (Auto) Abs Immat Gran (auto) Absolute Neuts (auto) Absolute Nucleated RBC Nucleated RBC % (auto) Sodium Potassium Chloride Carbon Dioxide Anion Gap BUN Creatinine Estim Creat Clear Calc Estimated GFR Random Glucose Calcium Urine Color Yellow Urine Appearance Clear Urine pH 6.0 Ur Specific Happy <= 1.005 Urine Protein Negative Urine Glucose (UA) Negative Urine Ketones Negative Urine Blood Negative Urine Nitrite Negative Ur Leukocyte Esterase Negative Urine Test NEGATIVE Urine Opiates Screen Not Detected Urine Fentanyl Screen Not Detected Ur Barbiturates Screen Not Detected Ur Phencyclidine Scrn Not Detected Ur Amphetamines Screen Not Detected U Benzodiazepines Scrn Not Detected Ranlo Urine Cocaine Screen Not Detected U Marijuana (THC) Screen Not Detected Ethyl Alcohol COVID-19 ([facility]) COVID-19 Clin Com 04/06/23 04/06/23 04/06/23 14:46 14:46 14:46 WBC 5.8 RBC 4.09 L Hgb 10.4 L Hct 33.9 L MCV 82.9 MCH 25.4 L MCHC 30.7 L RDW 14.0 Plt Count 262 MPV 10.5 Immature Gran % (Auto) 0.2 Neut % (Auto) 55.0 Lymph % (Auto) 31.9 Dewey % (Auto) 7.5 Eos % (Auto) 4.7 H Baso % (Auto) 0.7 Lymph # (Auto) 1.8 Dewey # (Auto) 0.4 Eos # (Auto) 0.3 Baso # (Auto) 0.0 Abs Immat Gran (auto) 0.01 Absolute Neuts (auto) 3.2 Absolute Nucleated RBC 0.000 Nucleated RBC % (auto) 0.0 Sodium 144 Potassium 3.6 Chloride 111 H Carbon Dioxide 25 Anion Gap 12 BUN 12 Creatinine 0.86 Estim Creat Clear Calc 107.8 Estimated GFR > 60 Random Glucose 87 Calcium 10.5 H D Urine Color Urine Appearance Urine pH Ur Specific Happy Urine Protein Urine Glucose (UA) Urine Ketones Urine Blood Urine Nitrite Ur Leukocyte Esterase Urine Test Urine Opiates Screen Urine Fentanyl Screen Ur Barbiturates Screen Ur Phencyclidine Scrn Ur Amphetamines Screen U Benzodiazepines Scrn Ranlo 0.55 L Urine Cocaine Screen U Marijuana (THC) Screen Ethyl Alcohol < 10 COVID-19 (NAYANA) COVID-19 Clin Com 04/07/23 08:06 WBC RBC Hgb Hct MCV MCH MCHC RDW Plt Count MPV Immature Gran % (Auto) Neut % (Auto) Lymph % (Auto) Dewey % (Auto) Eos % (Auto) Baso % (Auto) Lymph # (Auto) [place]wey # (Auto) Eos # (Auto) Baso # (Auto) Abs Immat Gran (auto) Absolute Neuts (auto) Absolute Nucleated RBC Nucleated RBC % (auto) Sodium Potassium Chloride Carbon Dioxide Anion Gap BUN Creatinine Estim Creat Clear Calc Estimated GFR Random Glucose Calcium Urine Color Urine Appearance Urine pH Ur Specific Happy Urine Protein Urine Glucose (UA) Urine Ketones Urine Blood Urine Nitrite Ur Leukocyte Esterase Urine Test Urine Opiates Screen Urine Fentanyl Screen Ur Barbiturates Screen Ur Phencyclidine Scrn Ur Amphetamines Screen U Benzodiazepines Scrn Ranlo Urine Cocaine Screen U Marijuana (THC) Screen Ethyl Alcohol COVID-19 (NAYANA) Negative COVID-19 Clin Com See Note Medications Medications Current Medications Acetaminophen (Acetaminophen 325 Mg Tablet) 650 mg PO Q6H PRN PRN Reason: Headache/Pain Mild Scale (1-3) Last Admin: 04/07/23 13:17 Dose: 650 mg Al Hydroxide/Mg Hydroxide (Magnesium Hydrox/Alum Hydrox 30 Ml Oral.Susp) 30 ml PO Q6H PRN PRN Reason: Heartburn/Nausea Benztropine Mesylate (Benztropine Mesylate 1 Mg Tablet) 1 mg PO BID [facility] Last Admin: 04/08/23 08:51 Dose: 1 mg Ferrous Sulfate (Ferrous Sulfate 324 Mg Tablet.Dr) 324 mg PO DAILY [facility] Last Admin: 04/08/23 08:52 Dose: 324 mg Hydroxyzine HCl (Hydroxyzine Hcl 25 Mg Tablet) 25 mg PO Q6H PRN PRN Reason: Anxiety [place] Carbonate ([place] Carbonate Er 450 Mg Tablet.Er) 450 mg PO BID [facility] Last Admin: 04/08/23 08:51 Dose: 450 mg Loratadine (Loratadine 10 Mg Tablet) 10 mg PO DAILY [facility] Last Admin: 04/08/23 08:52 Dose: 10 mg Magnesium Hydroxide (Milk Of Magnesia 30 Ml Oral.Susp) 30 ml PO DAILY PRN PRN Reason: Constipation Nicotine Polacrilex (Nicotine Polacrilex 2 Mg Gum) 2 mg BUCCAL Q2H PRN PRN Reason: Nicotine Cravings Olanzapine (Olanzapine 5 Mg Tablet) 5 mg PO BID PRN PRN Reason: anxiety/agitation Perphenazine (Perphenazine 8 Mg Tablet) 16 mg PO BID [facility] Last Admin: 04/08/23 08:51 Dose: 16 mg Trazodone HCl (Trazodone Hcl 50 Mg Tablet) 50 mg PO BEDTIME MRX1 PRN PRN Reason: Insomnia Allergies Allergies Allergy/AdvReac Type Severity Reaction Status Date / Time clozapine Allergy Unknown Verified 06/30/22 06:36 metronidazole [From Flagyl] Allergy Unknown Verified 06/30/22 06:36 paliperidone Allergy Unknown Verified 06/30/22 06:36 Assessment & Plan Assessment & Plan (1) Schizoaffective disorder: Status: Acute Code(s): F25.9 - Schizoaffective disorder, unspecified (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 IM back-up if pt refuses medication on kayden's order. 04/08: meds changed to most recent regimen at this facility rather than most recent outpt meds as of yesterday evening. pt reports improvement in mood, psychotic Sx. continue current mgmt. collect collateral from [facility]. appears to have EPS and TD. Reason for continued inpatient stay Substantial Risk for: harm to self, harm to others, inability to function and rapid decompensation Time Spent With Patient Time: Total time managing care of this patient today __25__ minutes.
[2023-04-08 20:37] VITALS: BP 176/84; PULSE 98; TEMP 36.6; O2SAT 96
[2023-04-08] MEDS: OLANZapine 5 MG TABLET PO (20:40)
[2023-04-09 09:30] VITALS: BP 154/88; PULSE 85; TEMP 36.1; O2SAT 100
[2023-04-09] MEDS: Perphenazine 8 MG TABLET 16 MG PO ×2 (09:40→21:22)
[2023-04-09] MEDS: Ferrous Sulfate 324 MG TABLET.DR PO (09:40)
[2023-04-09] MEDS: Loratadine 10 MG TABLET PO (09:41)
[2023-04-09] MEDS: Benztropine Mesylate 1 MG TABLET PO ×2 (09:41→21:22)
[2023-04-09] MEDS: Lithium Carbonate ER 450 MG TABLET.ER PO ×2 (09:41→21:22)
--- NOTE | 2023-04-09 11:05 | P.PNPSI_ITS ---
Subjective Subjective Date of Service: 04/09/23 Reason For Visit: self harm behaviors Subjective Notes: Conditional Voluntary Medical Problems Affecting Mental Status: No Interim History: Slept on the floor in the sensory room. States at home, she puts her mattress on the floor. Cannot say why she doesn't like to sleep on a bed. Refused labs ordered yesterday Medication Compliance: Yes Side effects from medications: Yes (tremor and jaw movements consistent with TD) Attending Groups: No Review of Systems Acute medical concerns: No Medical Review of Systems: unchanged Mental Status Exam Mental Status Exam Narrative: Self dialogue and yelling consistent with internal stimuli Patient Appearance: Unkempt Patient Orientation: Person, Place and Situation Level of Consciousness: Alert Patient Behavior: Wandering Mood Description: Calm Affect Description: Blunted Patient Cognition Impaired: Yes Ability to Follow Directions: Good Speech Pattern: Monotone Memory Description: Intact Hallucinations: Auditory (denies but probably still experiencing auditory hallucinations) Delusions: Not Present (denies but appears somewhat guarded) Thought Process: Slowed Thinking Thought Content: positive for Poverty of Content Abnormal Motor Activity Signs and Symptoms: Tremors Judgement: Fair Diagnostics Vital Signs (24Hr): Vital Signs - 24 hr 04/08/23 20:37 04/09/23 09:30 Temperature 97.9 F 97 F Pulse Rate 98 85 Blood Pressure 176/84 H 154/88 H Pulse Oximetry 96 100 Oxygen Delivery Method Room Air Room Air BMI result Body Mass Index 37.4 Labs 04/06/23 14:46 04/06/23 14:46 Medications Medications Current Medications Acetaminophen (Acetaminophen 325 Mg Tablet) 650 mg PO Q6H PRN PRN Reason: Headache/Pain Mild Scale (1-3) Last Admin: 04/07/23 13:17 Dose: 650 mg Al Hydroxide/Mg Hydroxide (Magnesium Hydrox/Alum Hydrox 30 Ml Oral.Susp) 30 ml PO Q6H PRN PRN Reason: Heartburn/Nausea Benztropine Mesylate (Benztropine Mesylate 1 Mg Tablet) 1 mg PO BID [facility] Last Admin: 04/09/23 09:41 Dose: 1 mg Ferrous Sulfate (Ferrous Sulfate 324 Mg Tablet.) 324 mg PO DAILY [facility] Last Admin: 04/09/23 09:40 Dose: 324 mg Hydroxyzine HCl (Hydroxyzine Hcl 25 Mg Tablet) 25 mg PO Q6H PRN PRN Reason: Anxiety [place] Carbonate ([place] Carbonate Er 450 Mg Tablet.Er) 450 mg PO BID [facility] Last Admin: 04/09/23 09:41 Dose: 450 mg Loratadine (Loratadine 10 Mg Tablet) 10 mg PO DAILY [facility] Last Admin: 04/09/23 09:41 Dose: 10 mg Magnesium Hydroxide (Milk Of Magnesia 30 Ml Oral.Susp) 30 ml PO DAILY PRN PRN Reason: Constipation Nicotine Polacrilex (Nicotine Polacrilex 2 Mg Gum) 2 mg BUCCAL Q2H PRN PRN Reason: Nicotine Cravings Olanzapine (Olanzapine 5 Mg Tablet) 5 mg PO BID PRN PRN Reason: anxiety/agitation Last Admin: 04/08/23 20:40 Dose: 5 mg Perphenazine (Perphenazine 8 Mg Tablet) 16 mg PO BID [facility] Last Admin: 04/09/23 09:40 Dose: 16 mg Trazodone HCl (Trazodone Hcl 50 Mg Tablet) 50 mg PO BEDTIME MRX1 PRN PRN Reason: Insomnia Allergies Allergies Allergy/AdvReac Type Severity Reaction Status Date / Time clozapine Allergy Unknown Verified 06/30/22 06:36 metronidazole [From Flagyl] Allergy Unknown Verified 06/30/22 06:36 paliperidone Allergy Unknown Verified 06/30/22 06:36 Assessment & Plan Assessment & Plan (1) Schizoaffective disorder: Status: Acute Code(s): F25.9 - Schizoaffective disorder, unspecified (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 IM back-up if pt refuses medication on kayden's order. 04/08: meds changed to most recent regimen at this facility rather than most recent outpt meds as of yesterday evening. pt reports improvement in mood, psychotic Sx. continue current mgmt. collect collateral from [facility]. appears to have EPS and TD. 04/09: Taking PO meds, will reorder labs refused yesterday. Consider increasing cogentin Reason for continued inpatient stay Substantial Risk for: med/psych decompensation Time Spent With Patient Time: Total time managing care of this patient today ___25_ minutes.
[2023-04-09] MEDS: hydrOXYzine HCL 25 MG TABLET PO (11:47)
[2023-04-09 18:00] VITALS: BP 163/98; PULSE 91; TEMP 36.7; O2SAT 100
[2023-04-09] MEDS: OLANZapine 5 MG TABLET PO (21:23)
[2023-04-10 08:29] LABS: Estimated Average Glucose 100 mg/dL; Hemoglobin A1c % 5.1 %
[2023-04-10 08:44] LABS: Alanine Aminotransferase 15 U/L (0-31); Alkaline Phosphatase 109 U/L (39-117); Anion Gap 11 (12-20); Aspartate Amino Transferase 14 U/L (5-31); Bilirubin Total 0.2 mg/dL (0.0-1.0); Blood Urea Nitrogen 12 mg/dL (9-16); Calcium 9.7 mg/dL (8.4-10.2); Carbon Dioxide 27 mmol/L (22-29); Chloride 109 mmol/L (96-108); Cholesterol 225 mg/dL; Creatinine Clr Calc Pharmacy 100.2; Estimated Glomerular Filt Rate > 60; Glucose Fasting 89 mg/dL (60-99); HDL Cholesterol 60 mg/dL; LDL Cholesterol Calculated 155 mg/dl; Potassium 4.2 mmol/L (3.3-5.1); Sodium 143 mmol/L (135-145); Total Protein 7.4 g/dL (6.5-8.0); Triglycerides 54 mg/dL
[2023-04-10 08:59] LABS: TSH reflex Free T4 1.86 uIU/mL (0.32-4.0)
--- NOTE | 2023-04-10 09:09 | HO.PSYCHPN ---
Subjective Subjective Date of Service: 04/10/23 Reason For Visit: self harm behaviors Subjective Notes: Conditional Voluntary Medical Problems Affecting Mental Status: No Interim History: Slept on her mattress after it was put in quiet room. Taking meds as ordered. Attending better to ADLS. Less yelling and less response to internal stimuli. Allowed blood draw this morning. Medication Compliance: Yes Side effects from medications: No Attending Groups: Yes Review of Systems Acute medical concerns: No Medical Review of Systems: unchanged Mental Status Exam Mental Status Exam Patient Appearance: Disheveled Patient Orientation: Person and Place Level of Consciousness: Awake Patient Behavior: Passive and Isolative Mood Description: Apathetic Affect Description: Blunted Patient Cognition Impaired: No Ability to Follow Directions: Fair Speech Pattern: Impoverished Memory Description: Intact Hallucinations: None (less evidence of internal stimuli. Denies voices) Delusions: Paranoid Ideation Thought Process: Slowed Thinking Thought Content: positive for Slowed Thinking Judgement: Fair Diagnostics Vital Signs (24Hr): Vital Signs - 24 hr 04/09/23 09:30 04/09/23 18:00 Temperature 97 F 98.1 F Pulse Rate 85 91 Blood Pressure 154/88 H 163/98 H Pulse Oximetry 100 100 Oxygen Delivery Method Room Air Room Air BMI result Body Mass Index 37.4 Labs 04/06/23 14:46 04/10/23 08:12 Labs: Laboratory Results - last 48 hr 04/10/23 04/10/23 08:12 08:12 Sodium 143 Potassium 4.2 Chloride 109 H Carbon Dioxide 27 Anion Gap 11 L BUN 12 Creatinine 0.92 Estim Creat Clear Calc 100.2 Estimated GFR > 60 Fasting Glucose 89 Estimat Average Glucose 100 Hemoglobin A1c % 5.1 Calcium 9.7 D Total Bilirubin 0.2 AST 14 ALT 15 Alkaline Phosphatase 109 Total Protein 7.4 Albumin 4.0 Triglycerides 54 Cholesterol 225 LDL Cholesterol, Calc 155 HDL Cholesterol 60 TSH 1.86 Medications Medications Current Medications Acetaminophen (Acetaminophen 325 Mg Tablet) 650 mg PO Q6H PRN PRN Reason: Headache/Pain Mild Scale (1-3) Last Admin: 04/07/23 13:17 Dose: 650 mg Al Hydroxide/Mg Hydroxide (Magnesium Hydrox/Alum Hydrox 30 Ml Oral.Susp) 30 ml PO Q6H PRN PRN Reason: Heartburn/Nausea Benztropine Mesylate (Benztropine Mesylate 1 Mg Tablet) 1 mg PO BID [facility] Last Admin: 04/09/23 21:22 Dose: 1 mg Ferrous Sulfate (Ferrous Sulfate 324 Mg Tablet.Dr) 324 mg PO DAILY [facility] Last Admin: 04/09/23 09:40 Dose: 324 mg Hydroxyzine HCl (Hydroxyzine Hcl 25 Mg Tablet) 25 mg PO Q6H PRN PRN Reason: Anxiety Last Admin: 04/09/23 11:47 Dose: 25 mg [place] Carbonate ([place] Carbonate Er 450 Mg Tablet.Er) 450 mg PO BID [facility] Last Admin: 04/09/23 21:22 Dose: 450 mg Loratadine (Loratadine 10 Mg Tablet) 10 mg PO DAILY [facility] Last Admin: 04/09/23 09:41 Dose: 10 mg Magnesium Hydroxide (Milk Of Magnesia 30 Ml Oral.Susp) 30 ml PO DAILY PRN PRN Reason: Constipation Nicotine Polacrilex (Nicotine Polacrilex 2 Mg Gum) 2 mg BUCCAL Q2H PRN PRN Reason: Nicotine Cravings Olanzapine (Olanzapine 5 Mg Tablet) 5 mg PO BID PRN PRN Reason: anxiety/agitation Last Admin: 04/09/23 21:23 Dose: 5 mg Perphenazine (Perphenazine 8 Mg Tablet) 16 mg PO BID [facility] Last Admin: 04/09/23 21:22 Dose: 16 mg Trazodone HCl (Trazodone Hcl 50 Mg Tablet) 50 mg PO BEDTIME MRX1 PRN PRN Reason: Insomnia Allergies Allergies Allergy/AdvReac Type Severity Reaction Status Date / Time clozapine Allergy Unknown Verified 06/30/22 06:36 metronidazole [From Flagyl] Allergy Unknown Verified 06/30/22 06:36 paliperidone Allergy Unknown Verified 06/30/22 06:36 Assessment & Plan Assessment & Plan (1) Schizoaffective disorder: Status: Acute Code(s): F25.9 - Schizoaffective disorder, unspecified (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 IM back-up if pt refuses medication on kayden's order. 04/08: meds changed to most recent regimen at this facility rather than most recent outpt meds as of yesterday evening. pt reports improvement in mood, psychotic Sx. continue current mgmt. collect collateral from [facility]. appears to have EPS and TD. 04/09: Taking PO meds, will reorder labs refused yesterday. Consider increasing cogentin 04/10: labs pending. Internal stimuli less prominent Reason for continued inpatient stay Substantial Risk for: inability to function Time Spent With Patient Time: Total time managing care of this patient today ___20_ minutes.
[2023-04-10 09:13] LABS: Folate 14.1 ng/mL (> or = 4.0); Vitamin B12 716 pg/mL (200-900)
[2023-04-10] MEDS: Perphenazine 8 MG TABLET 16 MG PO ×2 (10:14→21:46)
[2023-04-10] MEDS: Ferrous Sulfate 324 MG TABLET.DR PO (10:15)
[2023-04-10] MEDS: Benztropine Mesylate 1 MG TABLET PO ×2 (10:15→21:45)
[2023-04-10] MEDS: Lithium Carbonate ER 450 MG TABLET.ER PO ×2 (10:15→21:45)
[2023-04-10] MEDS: Loratadine 10 MG TABLET PO (10:16)
[2023-04-10 10:34] VITALS: BP 140/92; PULSE 104; TEMP 36.2; O2SAT 99
[2023-04-10 20:30] VITALS: BP 147/85; PULSE 97; RESP 18; TEMP 36.7; O2SAT 99
[2023-04-11] MEDS: Lithium Carbonate ER 450 MG TABLET.ER PO ×2 (10:00→20:52)
[2023-04-11] MEDS: Benztropine Mesylate 1 MG TABLET PO ×2 (10:00→20:52)
[2023-04-11] MEDS: Perphenazine 8 MG TABLET 16 MG PO ×2 (10:00→20:52)
[2023-04-11] MEDS: Ferrous Sulfate 324 MG TABLET.DR PO (10:01)
[2023-04-11] MEDS: Loratadine 10 MG TABLET PO (10:01)
[2023-04-11 14:03] VITALS: BP 128/61; PULSE 81; RESP 18; TEMP 36.7; O2SAT 98
[2023-04-11] MEDS: OLANZapine 5 MG TABLET PO (14:35)
[2023-04-11] MEDS: Nicotine Polacrilex 2 MG GUM BUCCAL (14:35)
--- NOTE | 2023-04-11 16:56 | HO.PSYCHPN ---
Subjective Subjective Date of Service: 04/11/23 Reason For Visit: self harm behaviors Subjective Notes: Conditional Voluntary Interim History: Pt reports feeling better in that she denies SI/HI. She reports having visions stating I always have them. She also reports hearing voices telling her that she is not sick, or things of the past. Pt has been visible on the unit, taking medications and attending groups. She asks when she will be able to return to . Per nursing, pt slept through the night in the sensory room. Medication Compliance: Yes Mental Status Exam Mental Status Exam Narrative: disheveled, wearing hospital hammad. cooperative. no PMA/PMR. speech nml rate, nml amount, loudness, tone, latency. thoughts linear and logical. affect constricted, normo-intense, non-labile. mood good and pretty even. AH improved, SI/HI improved. Diagnostics Vital Signs (24Hr): Vital Signs - 24 hr 04/10/23 20:30 04/11/23 14:03 Temperature 98.1 F 98.0 F Pulse Rate 97 81 Respiratory Rate 18 18 Blood Pressure 147/85 H 128/61 Pulse Oximetry 99 98 Oxygen Delivery Method Room Air Room Air BMI result Body Mass Index 37.4 Labs 04/06/23 14:46 04/10/23 08:12 Labs: Laboratory Results - last 48 hr 04/10/23 04/10/23 04/10/23 08:12 08:12 08:12 Sodium 143 Potassium 4.2 Chloride 109 H Carbon Dioxide 27 Anion Gap 11 L BUN 12 Creatinine 0.92 Estim Creat Clear Calc 100.2 Estimated GFR > 60 Fasting Glucose 89 Estimat Average Glucose 100 Hemoglobin A1c % 5.1 Calcium 9.7 D Total Bilirubin 0.2 AST 14 ALT 15 Alkaline Phosphatase 109 Total Protein 7.4 Albumin 4.0 Triglycerides 54 Cholesterol 225 LDL Cholesterol, Calc 155 HDL Cholesterol 60 Vitamin B12 716 Folate 14.1 TSH 1.86 Medications Medications Current Medications Acetaminophen (Acetaminophen 325 Mg Tablet) 650 mg PO Q6H PRN PRN Reason: Headache/Pain Mild Scale (1-3) Last Admin: 04/07/23 13:17 Dose: 650 mg Al Hydroxide/Mg Hydroxide (Magnesium Hydrox/Alum Hydrox 30 Ml Oral.Susp) 30 ml PO Q6H PRN PRN Reason: Heartburn/Nausea Benztropine Mesylate (Benztropine Mesylate 1 Mg Tablet) 1 mg PO BID [facility] Last Admin: 04/11/23 10:00 Dose: 1 mg Ferrous Sulfate (Ferrous Sulfate 324 Mg Tablet.Dr) 324 mg PO DAILY [facility] Last Admin: 04/11/23 10:01 Dose: 324 mg Hydroxyzine HCl (Hydroxyzine Hcl 25 Mg Tablet) 25 mg PO Q6H PRN PRN Reason: Anxiety Last Admin: 04/09/23 11:47 Dose: 25 mg [place] Carbonate ([place] Carbonate Er 450 Mg Tablet.Er) 450 mg PO BID [facility] Last Admin: 04/11/23 10:00 Dose: 450 mg Loratadine (Loratadine 10 Mg Tablet) 10 mg PO DAILY [facility] Last Admin: 04/11/23 10:01 Dose: 10 mg Magnesium Hydroxide (Milk Of Magnesia 30 Ml Oral.Susp) 30 ml PO DAILY PRN PRN Reason: Constipation Nicotine Polacrilex (Nicotine Polacrilex 2 Mg Gum) 2 mg BUCCAL Q2H PRN PRN Reason: Nicotine Cravings Last Admin: 04/11/23 14:35 Dose: 2 mg Olanzapine (Olanzapine 5 Mg Tablet) 5 mg PO BID PRN PRN Reason: anxiety/agitation Last Admin: 04/11/23 14:35 Dose: 5 mg Perphenazine (Perphenazine 8 Mg Tablet) 16 mg PO BID [facility] Last Admin: 04/11/23 10:00 Dose: 16 mg Trazodone HCl (Trazodone Hcl 50 Mg Tablet) 50 mg PO BEDTIME MRX1 PRN PRN Reason: Insomnia Allergies Allergies Allergy/AdvReac Type Severity Reaction Status Date / Time clozapine Allergy Unknown Verified 06/30/22 06:36 metronidazole [From Flagyl] Allergy Unknown Verified 06/30/22 06:36 paliperidone Allergy Unknown Verified 06/30/22 06:36 Assessment & Plan Assessment & Plan (1) Schizoaffective disorder: Status: Acute Code(s): F25.9 - Schizoaffective disorder, unspecified (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 IM back-up if pt refuses medication on kayden's order. 04/08: meds changed to most recent regimen at this facility rather than most recent outpt meds as of yesterday evening. pt reports improvement in mood, psychotic Sx. continue current mgmt. collect collateral from [facility]. appears to have EPS and TD. 04/09: Taking PO meds, will reorder labs refused yesterday. Consider increasing cogentin 04/10: labs pending. Internal stimuli less prominent 04/11 continue tx. Reason for continued inpatient stay Substantial Risk for: inability to function Time Spent With Patient Time: Total time managing care of this patient today ____ minutes.
[2023-04-11 18:00] VITALS: BP 113/60; PULSE 76; RESP 18; TEMP 36.6; O2SAT 98
[2023-04-12] MEDS: Ferrous Sulfate 324 MG TABLET.DR PO (08:54)
[2023-04-12] MEDS: Lithium Carbonate ER 450 MG TABLET.ER PO ×2 (08:54→21:08)
[2023-04-12] MEDS: Loratadine 10 MG TABLET PO (08:54)
[2023-04-12] MEDS: Benztropine Mesylate 1 MG TABLET PO ×2 (08:54→21:09)
[2023-04-12] MEDS: Perphenazine 8 MG TABLET 16 MG PO ×2 (08:54→21:09)
[2023-04-12 11:06] VITALS: BP 138/90; PULSE 111; RESP 16; TEMP 36.9; O2SAT 98
--- NOTE | 2023-04-12 14:02 | PC.NURSE ---
Pt engaged in an individual coping skills session for 30 minutes with occupational therapy. Pt was provided access to crocheting supplies for a supervised opportunity to work on crocheting her blanket. Pt was alert, calm, and cooperative. 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 Pt was content with crocheting and listening to music, appearing to have benefitted from individual session.
--- NOTE | 2023-04-12 15:07 | HO.PSYCHPN ---
Subjective Subjective Date of Service: 04/12/23 Reason For Visit: self harm behaviors Interim History: calm, cooperative. less prominent EPS. feeling good. denies SI/HI/AVH. nevertheless, observed talking softly to herself and laughing in the darkened sensory room. per staff, yelling in the snsory room. PRN zyprexa not very helpful. disorganized, delusional. Mental Status Exam Mental Status Exam Narrative: disheveled, wearing hospital hammad. cooperative. no PMA/PMR. speech nml rate, nml amount, loudness, tone, latency. thoughts linear and logical. affect constricted, normo-intense, non-labile. mood good. denies SI/HI/AVH, but observed to be RIS. Diagnostics Vital Signs (24Hr): Vital Signs - 24 hr 04/11/23 18:00 04/12/23 11:06 Temperature 97.8 F 98.4 F Pulse Rate 76 111 H Respiratory Rate 18 16 Blood Pressure 113/60 138/90 H Pulse Oximetry 98 98 Oxygen Delivery Method Room Air Room Air BMI result Body Mass Index 37.4 Labs 04/06/23 14:46 04/10/23 08:12 Medications Medications Current Medications Acetaminophen (Acetaminophen 325 Mg Tablet) 650 mg PO Q6H PRN PRN Reason: Headache/Pain Mild Scale (1-3) Last Admin: 04/07/23 13:17 Dose: 650 mg Al Hydroxide/Mg Hydroxide (Magnesium Hydrox/Alum Hydrox 30 Ml Oral.Susp) 30 ml PO Q6H PRN PRN Reason: Heartburn/Nausea Benztropine Mesylate (Benztropine Mesylate 1 Mg Tablet) 1 mg PO BID [facility] Last Admin: 04/12/23 08:54 Dose: 1 mg Ferrous Sulfate (Ferrous Sulfate 324 Mg Tablet.Dr) 324 mg PO DAILY [facility] Last Admin: 04/12/23 08:54 Dose: 324 mg Hydroxyzine HCl (Hydroxyzine Hcl 25 Mg Tablet) 25 mg PO Q6H PRN PRN Reason: Anxiety Last Admin: 04/09/23 11:47 Dose: 25 mg Heppner Carbonate (Heppner Carbonate Er 450 Mg Tablet.Er) 450 mg PO BID [facility] Last Admin: 04/12/23 08:54 Dose: 450 mg Loratadine (Loratadine 10 Mg Tablet) 10 mg PO DAILY [facility] Last Admin: 04/12/23 08:54 Dose: 10 mg Magnesium Hydroxide (Milk Of Magnesia 30 Ml Oral.Susp) 30 ml PO DAILY PRN PRN Reason: Constipation Nicotine Polacrilex (Nicotine Polacrilex 2 Mg Gum) 2 mg BUCCAL Q2H PRN PRN Reason: Nicotine Cravings Last Admin: 04/11/23 14:35 Dose: 2 mg Olanzapine (Olanzapine 5 Mg Tablet) 5 mg PO BID PRN PRN Reason: anxiety/agitation Last Admin: 04/11/23 14:35 Dose: 5 mg Perphenazine (Perphenazine 8 Mg Tablet) 16 mg PO BID [facility] Last Admin: 04/12/23 08:54 Dose: 16 mg Trazodone HCl (Trazodone Hcl 50 Mg Tablet) 50 mg PO BEDTIME MRX1 PRN PRN Reason: Insomnia Allergies Allergies Allergy/AdvReac Type Severity Reaction Status Date / Time clozapine Allergy Unknown Verified 06/30/22 06:36 metronidazole [From Flagyl] Allergy Unknown Verified 06/30/22 06:36 paliperidone Allergy Unknown Verified 06/30/22 06:36 Assessment & Plan Assessment & Plan (1) Schizoaffective disorder: Status: Acute Code(s): F25.9 - Schizoaffective disorder, unspecified (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 IM back-up if pt refuses medication on kayden's order. 04/08: meds changed to most recent regimen at this facility rather than most recent outpt meds as of yesterday evening. pt reports improvement in mood, psychotic Sx. continue current mgmt. collect collateral from [facility]. appears to have EPS and TD. 04/09: Taking PO meds, will reorder labs refused yesterday. Consider increasing cogentin 04/10: labs pending. Internal stimuli less prominent 04/11 continue tx. 04/12: requesting return to nursing home. denying Sx but still RIS. Reason for continued inpatient stay Substantial Risk for: inability to function and rapid decompensation Time Spent With Patient Time: Total time managing care of this patient today ____ minutes.
[2023-04-12 20:02] VITALS: BP 125/62; PULSE 82; RESP 16; TEMP 37.2; O2SAT 98
[2023-04-13 06:00] VITALS: RESP 18
[2023-04-13] MEDS: Ferrous Sulfate 324 MG TABLET.DR PO (10:18)
[2023-04-13] MEDS: Benztropine Mesylate 1 MG TABLET PO ×2 (10:18→22:28)
[2023-04-13] MEDS: Loratadine 10 MG TABLET PO (10:18)
[2023-04-13] MEDS: Perphenazine 8 MG TABLET 16 MG PO ×2 (10:18→22:28)
[2023-04-13] MEDS: Lithium Carbonate ER 450 MG TABLET.ER PO ×2 (10:18→22:28)
--- NOTE | 2023-04-13 10:55 | PC.NURSE ---
PT engaged in an individual coping skill session for 30 minutes with Occupational Therapy. PT was calm and cooperative. PT was provided access to her crocheting supplies with supervision. PT used this opportunity to work on crocheting a blanket. During session PT appeared to have moments where she was internally preoccupied, looking around the room and stopping her work. PT was content with crocheting. PT would benefit from craft activities, and appeared pleased with this individual session.
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
[2023-04-13 20:49] VITALS: BP 130/64; PULSE 84; RESP 16; TEMP 36.6; O2SAT 100
[2023-04-14] MEDS: Lithium Carbonate ER 450 MG TABLET.ER PO (09:54)
[2023-04-14] MEDS: Benztropine Mesylate 1 MG TABLET PO (09:54)
[2023-04-14] MEDS: Ferrous Sulfate 324 MG TABLET.DR PO (09:54)
[2023-04-14] MEDS: Perphenazine 8 MG TABLET 16 MG PO (09:54)
[2023-04-14] MEDS: Loratadine 10 MG TABLET PO (09:54)
[2023-04-14 11:07] VITALS: BP 109/59; PULSE 70; RESP 18; TEMP 36.8; O2SAT 98
== END 2023-04-14 15:20 | disposition home or self-care (01) | DRG 750 ==
LOC: HO.ED 21:12 → HO.PADLT16 04-07 10:30
PROVIDERS: Psychiatry & Neurology Psychiatry; Admitting Provider Psychiatry & Neurology Psychiatry; Emergency Provider Emergency Medicine Emergency Medical Services; PCP Pediatrics; Visit Provider Psychiatry & Neurology Psychiatry
DX: F25.9 Schizoaffective disorder, unspecified (principal); Q86.0 Fetal alcohol syndrome (dysmorphic); Z62.810 Personal history of physical and sexual abuse in childhood; Z79.899 Other long term (current) drug therapy
CPT/HCPCS: 36415; 80048; 80053; 80061; 80178; 80307; 81003; 81025; 82607; 82746; 83036; 84443; 85025; 87635; 93005; 99285; S9485

== ENCOUNTER → 2023-04-07 08:29 | Outpatient (BNV) | payer OTHER, SELFPAY | PROVIDERS: Admitting Provider Psychiatry & Neurology Psychiatry; Emergency Provider Emergency Medicine Emergency Medical Services; PCP Pediatrics; Visit Provider Internal Medicine Cardiovascular Disease | DX: R45.851 Suicidal ideations (principal); F23 Brief psychotic disorder | CPT/HCPCS: 93010 ==

== ENCOUNTER → 2023-04-07 10:03 | Outpatient (BNV) | payer OTHER, SELFPAY | PROVIDERS: Admitting Provider Psychiatry & Neurology Psychiatry; Emergency Provider Emergency Medicine Emergency Medical Services; PCP Pediatrics; Visit Provider Psychiatry & Neurology Psychiatry | DX: F25.9 Schizoaffective disorder, unspecified (principal); Q86.0 Fetal alcohol syndrome (dysmorphic) | CPT/HCPCS: 99231; 99232; 99233 ==

== ENCOUNTER 2023-08-16 12:21 | Inpatient (IN) | payer OTHER, SELFPAY ==
--- OUTSIDE RECORDS SUMMARY | 2023-08-16 12:25 | XMS_ITS | Continuity of Care Document ---
Author Name Unknown Organization [facility] Address [address] [place] [address]- Care Team Providers Care Sinker Winder Name Role Phone Fatoumata Stokes DO Primary Care Physician ( [phone] Encounter [facility] Date(s): 05/24/23 - 06/23/23 [facility] [address] [place], [place] [address] Allergies, Adverse Reactions, Alerts Substance Reaction Severity Status Flagyl Active Haldol Active paliperidone Active Invega Active cloZAPine Active Immunizations Given and Recorded Vaccine Date Status Refusal Reason influenza virus vaccine, inactivated 09/11/22 Give n influenza virus vaccine, inactivated 06/29/19 Give n influenza virus vaccine, inactivated 07/31/18 Brady rded influenza virus vaccine, inactivated 07/11/13 Give n influenza virus vaccine, inactivated 08/10/11 Give n influenza virus vaccine, inactivated 07/31/10 Give n influenza virus vaccine, inactivated 10/03/09 Brady rded SARS-CoV-2 (COVID-19) mRNA-1273 vaccine 10/22/21 R ecorded SARS-CoV-2 (COVID-19) mRNA-1273 vaccine 12/10/20 R ecorded SARS-CoV-2 (COVID-19) mRNA-1273 vaccine 11/12/20 R ecorded tetanus/diphtheria/pertussis, acel(Tdap) 07/23/19 Given tetanus/diphtheria/pertussis, acel(Tdap) 07/30/18 Given tetanus/diphtheria/pertussis, acel(Tdap) 11/30/15 Given tetanus/diphtheria/pertussis, acel(Tdap) 10/20/14 Given tetanus/diphtheria/pertussis, acel(Tdap) 05/26/11 Given tetanus/diphtheria/pertussis, acel(Tdap) 07/31/10 Given pneumococcal 23-valent vaccine 07/11/13 Given Meningococcal Polysaccharide Vaccine 12/26/12 Give n Meningococcal Conjugate Vaccine 12/26/12 Recorded Meningococcal Conjugate Vaccine 11/08/06 Given FluLaval (oldterm) 06/13/12 Given Human Papillomavirus Vaccine 09/16/10 Given Human Papillomavirus Vaccine 10/03/09 Given Human Papillomavirus Vaccine 07/15/09 Given influ virus vac, H1N1, live(oldterm) 10/03/09 Give n tetanus-diphtheria toxoids (Td) 01/14/04 Given Hepatitis B Vaccine (old term) 01/14/04 Given Hepatitis B Vaccine (old term) 08/27/03 Given Hepatitis B Vaccine (old term) 07/23/03 Given Miscellaneous Vaccine 1 09/26/96 Given Measles/Mumps/Rubella Virus Vaccine 02/23/95 Given Measles/Mumps/Rubella Virus Vaccine 08/18/94 Given Measles/Mumps/Rubella Virus Vaccine 05/06/92 Given Diphth/Pertussis,Acel/Tetanus (oldterm) 02/01/95 G iven Diphth/Pertussis,Acel/Tetanus (oldterm) 06/15/94 G iven Diphth/Pertussis,Acel/Tetanus (oldterm) 03/17/94 G iven Diphth/Pertussis,Acel/Tetanus (oldterm) 03/15/91 G iven Diphth/Pertussis,Acel/Tetanus (oldterm) 01/06/91 G iven Poliovirus Vaccine, Inactivated 06/15/94 Given Poliovirus Vaccine, Inactivated 03/17/94 Given Poliovirus Vaccine, Inactivated 01/06/91 Given 1Admin Note: Clinical Varicella at age 5 Medications benztropine 1 mg oral tablet 1 mg, 1, tablet, By Mouth, 2 times a day, @0900/2100, Refills 0, Maintenance, 06/23/23 11:46:00 EDT, Partial fill upon patient request if the prescription is for a schedule II opioid drug. Start Date: 06/23/23 Status: Ordered FeroSul 325 mg oral tablet 1 tablet = 325 mg, By Mouth, Every other day, @0900, 0 Refills, Maintenance, 06/23/23 11:45:00 EDT,Partial fill upon patient request if the prescription is for a schedule II opioid drug. Start Date: 06/23/23 Status: Ordered lithium 300 mg oral tablet 1 tablet = 300 mg, By Mouth, 2 times a day, @0900/2100, 0 Refills, Maintenance, 06/23/23 11:47:00 EDT, Partial fill upon patient request if the prescription is for a schedule II opioid drug. Start Date: 06/23/23 Status: Ordered MiraLax oral powder for reconstitution = 17 Gm, By Mouth, Daily, @0900, hold for diarrhea, 0 Refills, Maintenance, 06/23/23 11:48:00 EDT, Partial fill upon patient request if the prescription is for a schedule II opioid drug. Start Date: 06/23/23 Status: Ordered perphenazine 8 mg oral tablet 8 mg, 1, tablet, By Mouth, Daily, @0900, Refills 0, Maintenance, 06/23/23 11:45:00 EDT, Partial fill upon patient request if the prescription is for a schedule II opioid drug. Start Date: 06/23/23 Status: Ordered ZyPREXA 2.5 mg oral tablet 2.5 mg, 1, tablet, By Mouth, Daily at bedtime, @0900, Refills 0, Maintenance, 06/23/23 11:47:00 EDT, Partial fill upon patient request if the prescription is for a schedule II opioid drug. Start Date: 06/23/23 Status: Ordered ZyPREXA 2.5 mg oral tablet 2.5 mg, 1, tablet, By Mouth, Daily at bedtime, PRN, Refills 0, Maintenance, Agitation, 06/23/23 11:48:00 EDT, Partial fill upon patient request if the prescription is for a schedule II opioid drug. Start Date: 06/23/23 Status: Ordered Problem List Condition Confirmation Course Effective Dates Status Health Status Informant Allergic rhinitis Confirmed Active Last pap smear 08/31/19 negative Confirmed Active Chronic constipation Confirmed Active Chronic post-traumatic stress disorder Confirmed Active COVID-19 1 Confirmed 07/16/22 Active Depression Confirmed Active Environmental allergies Confirmed Active alcohol syndrome Confirmed Active Foster Care (Status) Confirmed Active Chronic GERD Confirmed Active Hypernatremia Confirmed Active Hyperprolactinemia Confirmed Active Iron deficiency anemia Confirmed Active Cigarette nicotine dependence Confirmed Active Obesity Confirmed Active Oligomenorrhea Confirmed Active Personality disorder Confirmed Active Poor historian Confirmed Active Psychosis Confirmed 2009 Active Frequent falls Confirmed Active Schizoaffective schizophrenia Confirmed Active Severe obesity (BMI 35.0-39.9) with comorbidity Confirmed Active History of suicidal ideation w/ suicide attempt Confirmed Active Weight gain with seroquel in the past 2 Confirmed Active 1Problem added by Discern Expert 2Really accelerated when seroquel dose increased Social History Social History Type Response Smoking Status Never (less than 100 in lifetime); Interested in cessation: No; Patient wants NRT during admission No entered on: 06/13/23 Sex History and physical note * Event Display: History and Physical Hospital Authored Date: [id number] [place], [place] PSYCHIATRIC HISTORY ASSESS EXAM NAME: LORETTA CELESTIN : 89 MR#: [id number] PCP: ADMITTED: 12/20/15 DATE OF SERVICE: 12/20/15 HPI - Hosp Psych H P Chief Complaint Pt was sent from [facility] here for hallunication History of Present Illness 24 yo AA Female with known schizophrenia was seen at [facility] for hallucination. Apparently pt has been lived in residential and sent to [facility] for acute exacerbation of her underline schizophrenia. Not sure pt has been compliance with her meds and pt is slightly sedated and can not provide much info. viral stable on admission History - Hosp Psych H P Past Medical/Surgical History Past Med/Surg History 1. Psychosis Status Chronic 2. Mental retardation Status Chronic Allergies Coded Allergies: Metronidazole (From FLAGYL) (Unknown 12/20/15) Paliperidone (From INVEGA) (Unknown 12/20/15) Reported Medications Reported Medications RisperiDONE* (RisperDAL*) 0.5 MG PO BID Benztropine* 1 MG PO BID Docusate Sodium* (Colace*) 100 MG PO BID Polyethylene Glycol* (MiraLax*) 1 PKT PO QDAY Senna Concentrate* (Senokot*) 17.2 EACH PO BID Ferrous Sulfate* 324 MG PO QDAY Haloperidol* (Haldol*) 5 MG PO BID [place] Carbonate SR* (Lithobid*) 300 MG PO QDAY liTHIum Carbonate SR* ([place] Carbonate SR*) 450 MG PO 4PM Discontinued Reported Medications Citalopram* (CeleXA*) 40 MG PO QDAY Benztropine* 0.5 MG PO BID buPROPion SR* 150 MG PO [id number] Trazodone* (Desyrel*) 100 MG PO HS RisperiDONE* (RisperDAL*) 1 MG PO BID Guanfacine* (Tenex*) 0.5 MG PO HS Ferrous Sulfate* 324 MG PO BID [PATIENT MAY USE CDPR] Family History Family History FATHER (alive and well). MOTHER (alive and well). ROS - Hosp Psych H P ROS unobtainable due to mental status Phys Exam - Hosp Psych H P Physical Exam Vitals/I O Vital Signs Result Date Time Pulse Ox 99 12/19 1414 B/P 122/79 12/19 1414 Temp 97.3 12/19 1414 Pulse 104 12/19 1414 Resp 16 12/19 1414 Current Medications Current Medications Sig/Jessica Start time Last Medication Dose Route/Reason Stop Time Status Admin Ferrous Sulfate 324 MG QDAY 12/20 09 CKD PO [place] Carbonate 300 MG QDAY 12/20 09 AC PO Polyethylene Glycol 17 GM QDAY 12/20 09 CKD PO Benztropine Mesylate 1 MG 0900,1700 12/19 1700 AC PO Docusate Sodium 100 MG 0900,1700 12/19 1700 AC PO Haloperidol 5 MG 0900,1700 12/19 1700 AC PO [place] Carbonate 450 MG PM 12/19 1700 AC PO Risperidone 0.5 MG 0900,1700 12/19 1700 AC PO Senna 17.2 MG 0900,1700 12/19 1700 AC PO Acetaminophen 650 MG PRN4H PRN 12/19 1235 AC PO Pain(1-10)/Fever Al Hydrox/Mg Hydrox/ 30 ML PRN4H PRN 12/19 1235 CKD Simethicone PO Heartburn/Nausea Hydroxyzine Pamoate 25 MG PRNTID PRN 12/19 1235 AC PO Anxiety Magnesium Hydroxide 30 ML PRNQ PRN 12/19 1235 CKD PO Constipation Nicotine Polacrilex 2 MG PRN4H PRN 12/19 1235 AC PO 01/18 1234 Cigarette abstinence Olanzapine 5 MG PRNTID PRN 12/19 1235 AC PO Psychotic agitation Trazodone HCl 50 MG PRNHS PRN 12/19 1235 AC PO Insomnia General appearance alert and oriented x1, confused, malodorous Eyes left eye: PERRL. ENT hearing intact Neck supple Breath sounds Lt upper lobe: clear. Lt lower lobe: clear. Rt upper lobe: clear. Rt middle lobe: clear. Rt lower lobe: clear. Heart rhythm regular Heart sounds S1 and S2 Extremities all extremities: no ischemia, pulses intact, pulses symmetrical, no edema. Abdomen deferred, soft, non-tender, non-distended, normal bowel sounds Genitourinary deferred Psychiatric cooperative, depressed Neurologic moves all extremities A/P - Hosp Psych H P Assessment and Plan Problem List 1. Psychosis Status Chronic Plan to address prob acute on chronic schizophrenia: appearred to be sedated. Pt received some basic care upon arrival such as food and showers. Vital stable. No apprently medical issues. Treatment per psych team DVT Prophylaxis Documentation fullly ambulartory Care Level Complexity of Care [id number] Comprehensive history, comprehensive examination, medical decision making of low complexity, at least 20 minutes at the bedside, patient's floor/ unit. ESigned by: YAS GARZA MD Date:12/21/15 Time:1633 / NOT FOR REDISCLOSURE WITHOUT PATIENT'S INFORMED CONSENT Admission evaluation note * Event Display: Admit Notes Authored Date: [id number] [place], [place] PSYCHIATRIC ADMISSION NOTE NAME: LORETTA CELESTIN : 89 HOSPITAL #: [id number] MR #: [id number] CHART LOC: PCP: DICTATING: MARIA R Robin MD DATE OF ADMISSION: 12/20/15 DATE OF SERVICE: 12/21/15 CHIEF COMPLAINT: This 23-year-old woman was admitted to [facility] on 12/20/15 on a Conditional Voluntary application because of suicidal ideation. HISTORY OF PRESENT ILLNESS: The patient has been treated for schizoaffective disorder depressed type, posttraumatic stress disorder, intellectual disability and alcohol syndrome with multiple hospitalizations for self-harming behavior and suicidal ideation. She presented to Crisis Services from her residential reporting that she was having urges to overdose with medications and to cut herself and to kill individuals known as the Marcelo brothers. She reported visual hallucinations where people were taking things from her and jumping in front of her while in lines. She also reported voices are sneaking in. When asked about the hallucinations, she could not describe how they had evolved. Staff at the residential where she lives reported her as unusually verbally aggressive at staff and peers, and the peers being afraid of her. She is also reported to be not bathing, doing her laundry, and not eating for two days. PAST MEDICAL HISTORY: It is suspected that the patient may have consequences of alcohol syndrome. She has iron deficiency anemia and obesity. She has had problems with with Risperdal based medication in the past which has resolved with amantadine. SOCIAL HISTORY: The patient is living in a residential. Came to [place] with her grandmother in 2013, was very close and fond of her grandmother who since then. She attended into the eleventh grade and had learning disabilities. She had brief employment and attends a day program when she is able. MENTAL STATUS EXAMINATION: The patient was drowsy and could not participate in the evaluation. She was verbally responsive and breathing easily. DIAGNOSES: AXIS I: Acute exacerbation of chronic schizoaffective schizophrenia. Posttraumatic stress disorder. AXIS II: Learning disability. AXIS III: Obesity, iron deficiency anemia. AXIS IV: Possible medication changes. AXIS V: Global Assessment of Functioning 30, best in the past year NAME: LORETTA CELESTIN : 89 HOSP#: [id number] MR#: [id number] CHART LOC: PCP: DICTATING: MARIA R Robin MD PSYCHIATRIC ADMISSION NOTE CONTINUED: unknown. TREATMENT PLAN: Resume outpatient medications, physical exam, collateral contact with community caregivers and social network, safety plan, aftercare plan and observe. 927 T: [id number] TD:0745 DT:[id number] TT:0924 JOB:[id number] MICHELLE/SHANNON MARIA R Robin MD ESigned by: Date:12/22/15 Time:642 NOT FOR REDISCLOSURE WITHOUT PATIENT'S INFORMED CONSENT Patient Care team information Care Team Personnel Name: Dean Rivas RN Position: [facility] RN Member Role: Primary Care Nurse Name: Fatoumata Stokes DO Position: [facility] Physician - Primary Care Member Role: PCP Address: Address: [address] [place] [address] Adult & Pediatric Medicine [place], [place] [address] Name: Britt Polanco RN Position: [facility] RN Member Role: Primary Care Nurse Name: Awilda Grider RN Position: S RN Member Role: Primary Care Nurse Name: Chintan Leach DO Position: [facility] Renal MD Member Role: Lifetime Consulting Physician Address: Address: [address] [place] [address] [address] [facility] [place] [place] [address]- [place] Name: Chandler Ye RN Position: [facility] RN Member Role: Primary Care Nurse Name: Apurva Ji RN Position: [facility] ED RN W/OE and Tasks Member Role: Primary Care Nurse Name: Cordelia Matias RN Position: [facility] AMB Nurse Member Role: Primary Care Nurse Name: Radha Gutierrez Position: [facility] Outreach Member Role: Primary Care Nurse Name: Keenan Vincent RN Position: [facility] SN RN Member Role: Primary Care Nurse Name: Sasha Patricio RN Position: [facility] RN Member Role: Primary Care Nurse Name: Virgie Angel Position: [facility] RN Member Role: Primary Care Nurse Name: Azeb Gusman RN Position: [facility] RN Member Role: Primary Care Nurse Name: Meredith Martinez RN Position: [facility] RN Member Role: Primary Care Nurse Name: Anika Gotti RN Position: [facility] RN Member Role: Primary Care Nurse Name: Rafiq Muñoz RN Position: [facility] RN Member Role: Primary Care Nurse Name: Justina Walker RN Position: [facility] RN Member Role: Primary Care Nurse Name: Kenia Zuniga RN Position: [facility] PCO w/OE and EZ Script Member Role: Primary Care Nurse Name: Ivone Hidalgo RN Position: [facility] RN Member Role: Primary Care Nurse Name: Mazin Penn MD Position: [facility] Physician - Behavioral Health Member Role: Lifetime Consulting Physician Address: Address: [address] [place] [address]- [place] Care Team Related Persons Name: VRIIDIANA MCCOLLUMOPATRA Address: [address] [place] [address] Name: STEW PECK Address: home [address] [facility] [address] Name: LISA PALMA Address: home [address] [place] [address]
--- OUTSIDE RECORDS SUMMARY | 2023-08-16 12:25 | XMS_ITS | Continuity of Care Document ---
Author Name Unknown Organization [facility] Address [address] [place] [address]- Care Team Providers Care Clinical Rn Liaison Name Role Phone Fatoumata Stokes DO Primary Care Physician [facility]): [facility]14[facility]23 - 05/14/23 [facility] [address], [place] [address] Allergies, Adverse Reactions, Alerts Substance Reaction Severity Status Flagyl Active Haldol Active cloZAPine Active paliperidone Active Invega Active [...] 5 Medications acetaminophen 325 mg oral tablet 2, tablet, By Mouth, Every 8 hours, PRN, # 50 tablet, Refills 4, Maintenance, NEEDED FOR PAIN, 09/29/22 9:09:00 EST, Route to Pharmacy Electronically, [id number], 163, cm, 09/14/22 8:12:00 EST, Height, 87.9, kg, 09/09/22 12:06:00 EST, Dry Weight Start Date: 09/29/22 Status: Ordered benztropine 1 mg oral tablet 1 mg, 1, tablet, By Mouth, 2 times a day, # 60 tablet, Refills 0, Tot. Refills 0, Maintenance, 09/14/22 13:02:00 EST, Route to Pharmacy Electronically, [facility], 163, cm, 09/14/22 8:12:00 EST, Height, 87.9, kg, 09/09/22 12:06:00 EST, D... Start Date: 09/14/22 Stop Date: 10/14/22 Status: Ordered cetirizine 10 mg oral tablet 1 tablet, By Mouth, Daily, # 30 tablet, 0 Refills, Maintenance, 09/14/22 13:03:00 EST, [facility], 163, cm, 09/14/22 8:12:00 EST, Height, 87.9, kg, 09/09/22 12:06:00 EST, Dry Weight Start Date: 09/14/22 Status: Ordered docusate sodium 100 mg oral capsule 1 capsule, By Mouth, 2 times a day, # 60 capsule, 11 Refills, 10/06/22 16:34:00 EST, [facility]/pharmacy #[id number], 163, cm, 09/14/22 8:12:00 EST, Height, 87.9, kg, 09/09/22 12:06:00 EST, Dry Weight Start Date: 10/06/22 Status: Ordered estradiol 0.1 mg/24 hours twice weekly transdermal film, extended release See Instructions, apply 1 patch Topically every tuesday and , # 24 patch, 0 Refills, Maintenance, 11/24/22 12:36:00 EST, [facility]/pharmacy #[id number], Partial fill upon patient request if the prescription is for a schedule II opioid drug., 162, cm, 11/23... Start Date: 11/24/22 Status: Ordered Estradiol Patch 0.1 mg/24 hours twice weekly transdermal film, extended release See Instructions, APPLY 1 PATCH TOPICALLY EVERY TUESDAY & TUESDAY, # 8 patch, 0 Refills, 09/14/22 13:03:00 EST, [facility], APPLY 1 PATCH TOPICALLY EVERY TUESDAY & TUESDAY, 163,cm, 09/14/22 8:12:00 EST, Height, 87.9, kg, 09/09/22 12:06:... Start Date: 09/14/22 Status: Ordered ferrous sulfate 325 mg oral enteric coated tablet See Instructions, TAKE 1 TABLET BY MOUTH EVERY DAY, # 30 tablet, Refills 6, Tot. Refills 6, Maintenance, 05/06/23 14:25:00 EDT, Instructions Replace Required Details, Route to Pharmacy Electronically, [facility], 162, cm, 05/02/23 13:11:00 E... Start Date: 05/06/23 Status: Ordered ferrous sulfate 325 mg oral enteric coated tablet 1, tablet, By Mouth, Every other day, may take with food to minimize abdominal discomfort, # 15 tablet, Refills 0, Tot. Refills 0, 09/14/22 13:04:00 EST, Route to Pharmacy Electronically, [facility], 163, cm, 09/14/22 8:12:00 EST, Height... Start Date: 09/14/22 Status: Ordered ibuprofen 800 mg oral tablet 800 mg, 1, tablet, By Mouth, 3 times a day, PRN, Refills 0, Maintenance, as needed, 06/15/22 12:52:00 EDT, ; Start Date: 06/15/22 Status: Ordered lithium 300 mg oral tablet 1 tablet = 300 mg, By Mouth, 2 times a day, # 60 tablet, 0 Refills, Maintenance, 09/14/22 13:05:00 EST, Tablet, [facility], Partial fill upon patient request if the prescription is for a schedule II opioid drug., 163, cm, 09/14/22 8:12:0... Start Date: 09/14/22 Status: Ordered medroxyPROGESTERone 150 mg/mL intramuscular suspension 1 mL, Intramuscular, Every 3 months, # 1 mL, 3 Refills, Soft Stop, 03/13/21 13:05:00 EDT, [facility]/pharmacy #[id number], 164, cm, 03/13/21 9:51:00 EDT, Height, 112, kg, 10/14/20 10:13:00 EST, Dry Weight Start Date: 03/13/21 Status: Ordered MiraLax oral powder for reconstitution = 17 Gm, By Mouth, Daily, dissolve in water before taking; hold for diarrhea, # 527 Gm, 1 Refills, Maintenance, 05/06/23 15:37:00 EDT, REC Powder, [facility], Partial fill upon patient request if the prescription is for a schedule II opioid... Start Date: 05/06/23 Status: Ordered olanzapine 2.5 mg oral tablet 2.5 mg, 1, tablet, By Mouth, Daily, PRN, Agitation/Psychosis, # 14 tablet, Refills 1, Tot. Refills 1, Maintenance, Other, 10/16/22 12:36:00 EST, Route to Pharmacy Electronically, [facility]/pharmacy #[id number], Partial fill upon patient request if the prescriptio... Start Date: 10/16/22 Stop Date: 11/13/22 Status: Ordered omeprazole 20 mg oral enteric coated capsule 1 capsule, By Mouth, Daily, # 90 capsule, 0 Refills, [id number], 163, cm, 09/24/21 16:23:00 EST, Height, 112, kg, 10/14/20 10:13:00 EST, Dry Weight Start Date: 03/04/22 Status: Ordered perphenazine 16 mg oral tablet 16 mg, 1, tablet, By Mouth, 2 times a day, take with 4mg tablet for a total dose of 20 mg 2 times daily, # 60 tablet, Refills 0, Tot. Refills 0, Maintenance, 09/14/22 13:06:00 EST, Route to Pharmacy Electronically, [facility], Partial fi... Start Date: 09/14/22 Status: Ordered perphenazine 4 mg oral tablet 4 mg, 1, tablet, By Mouth, 2 times a day, take with 16 mg tablet for a total dose of 20 mg 2 times daily, # 60 tablet, Refills 0, Tot. Refills 0, Maintenance, 09/14/22 13:06:00 EST, Route to PharmacyElectronically, [facility], Partial f... Start Date: 09/14/22 Status: Ordered perphenazine 8 mg oral tablet 8 mg, 1, tablet, By Mouth, Daily, at 12 PM, # 30 tablet, Refills 0, Tot. Refills 0, Maintenance, 09/14/22 13:06:00 EST, Route to Pharmacy Electronically, [facility], Partial fill upon patient request if the prescription is for a schedule... Start Date: 09/14/22 Status: Ordered Senna 8.6 mg oral tablet 8.6 mg, 1, tablet, By Mouth, Daily at bedtime, PRN, # 30 tablet, Refills 0, Tot. Refills 0, Maintenance, Constipation, 05/06/23 14:23:00 EDT, Route to Pharmacy Electronically, [facility] Tablet, Partial fill upon patient request if the presc... Start Date: 05/06/23 Status: Ordered Senna 8.6 mg oral tablet 8.6 mg, 1, tablet, By Mouth, Daily at bedtime, # 30 tablet, Refills 0, Tot. Refills 0, Maintenance,09/14/22 13:06:00 EST, Route to Pharmacy Electronically, [facility] Tablet, Partial fill upon patient request if the prescription is for... Start Date: 09/14/22 Status: Ordered simethicone 125 mg oral capsule See Instructions, TAKE 1 CAPSULE BY MOUTH THREE TIMES A DAY AFTER MEALS AND AT BEDTIME NEEDED, #48 capsule, 11 Refills, Maintenance, 09/24/22 18:10:00 EST, [id number], 163, cm, 09/14/22 8:12:00 EST, Height, 87.9, kg, 09/09/22 12:06:00 EST, [facility] Start Date: 09/24/22 Status: Ordered ZyPREXA 2.5 mg oral tablet 2.5 mg, 1, tablet, By Mouth, Daily at bedtime, # 14 tablet, Refills 0, Tot. Refills 0, Maintenance,10/16/22 11:51:00 EST, Route to Pharmacy Electronically, [facility]/pharmacy #[id number], Partial fill upon patient request if the prescription is for a schedule II... Start Date: 10/16/22 Stop Date: 10/30/22 Status: Ordered Problem List Condition Confirmation Course Effective Dates Status Health Status Informant Last pap smear 08/31/19 negative Confirmed Active Chronic constipation Confirmed Active Chronic post-traumatic stress disorder Confirmed Active COVID-19 1 Confirmed 07/16/22 Active Depression Confirmed Active alcohol syndrome Confirmed Active Foster Care (Status) Confirmed Active Chronic GERD Confirmed Active Hyperprolactinemia Confirmed Active Iron deficiency anemia Confirmed Active Obesity Confirmed Active Oligomenorrhea Confirmed Active Personality disorder Confirmed Active Poor historian Confirmed Active Psychosis Confirmed 2009 Active Schizoaffective schizophrenia Confirmed Active Severe obesity (BMI 35.0-39.9) with comorbidity Confirmed Active History of suicidal ideation w/ suicide attempt Confirmed Active Weight gain with seroquel in the past 2 Confirmed Active 1Problem added by Discern Expert 2Really accelerated when seroquel dose increased Social History Social History Type Response Tobacco Use: 4 or less cigar ettes(less than 1/4 pack)/day in last 30 days. Sex History and physical note * Event Display: History and Physical Hospital Authored Date: [id number] [place], [place] PSYCHIATRIC HISTORY ASSESS EXAM NAME: LORETTA CELESTIN : 89 MR#: [id number] PCP: ADMITTED: 12/20/15 DATE OF SERVICE: 12/20/15 HPI - Hosp Psych H P Chief Complaint Pt was sent from [facility] here for hallunication History of Present Illness 24 yo AA Female with known schizophrenia was seen at [facility] for hallucination. Apparently pt has been lived in [facility] and sent to [facility] for acute exacerbation of her underline schizophrenia. [...] QDAY Haloperidol* (Haldol*) 5 MG PO BID Bonham Carbonate SR* (Lithobid*) 300 MG PO QDAY liTHIum Carbonate SR* (Bonham Carbonate SR*) 450 MG PO 4PM Discontinued Reported Medications Citalopram* (CeleXA*) 40 MG PO QDAY Benztropine* 0.5 MG PO BID buPROPion SR* 150 MG PO [id number] Trazodone* (Desyrel*) 100 MG PO HS RisperiDONE* [...] 324 MG QDAY 12/20 09 CKD PO Bonham Carbonate 300 MG QDAY 12/20 09 AC PO Polyethylene Glycol 17 GM QDAY 12/20 09 CKD PO Benztropine Mesylate 1 MG 0900,1700 12/19 1700 AC PO Docusate Sodium 100 MG 0900,1700 12/19 1700 AC PO Haloperidol 5 MG 0900,1700 12/19 1700 AC PO Bonham Carbonate 450 MG PM 12/19 1700 AC PO Risperidone 0.5 MG 0900,17012/19 1700 AC PO Senna 17.2 MG 0900,1700 12/19 1700 AC PO Acetaminophen 650 MG PRN4H PRN 12/19 1235 AC PO Pain(1-10)/Fever Al Hydrox/Mg Hydrox/ 30 ML PRN4H PRN 12/19 1235 CKD Simethicone PO Heartburn/Nausea Hydroxyzine Pamoate 25 MG PRNTID PRN 12/19 1235 AC PO Anxiety Magnesium Hydroxide 30 ML PRN PRN 12/19 1235 CKD PO Constipation Nicotine [...] fullly ambulartory Care Level Complexity of Care [id number] Comprehensive history, comprehensive examination, medical decision making of low complexity, at least 20 minutes at the bedside, patient's floor/ unit. ESigned by: YAS GARZA MD Date:12/21/15 Time:1633 / NOT FOR REDISCLOSURE WITHOUT PATIENT'S INFORMED CONSENT Admission evaluation note * Event Display: Admit Notes Authored Date: [id number] [place], [place] PSYCHIATRIC ADMISSION NOTE NAME: LORETTA CELESTIN : 89 HOSPITAL #: [id number] #: [id number] CHART LOC: PCP: DICTATING: MARIA R Robin MD DATE OF ADMISSION: 12/20/15 DATE OF SERVICE: 12/21/15 CHIEF COMPLAINT: This 23-year-old woman was admitted to [facility] on 12/20/15 on a Conditional Voluntary application because of suicidal ideation. HISTORY OF PRESENT ILLNESS: The patient has been treated for schizoaffective disorder depressed type, posttraumatic stress disorder, intellectual disability and alcohol syndrome with multiple hospitalizations for self-harming behavior and suicidal ideation. She presented to Crisis Services from her [facility] reporting that she was having urges to [...] how they had evolved. Staff at the [facility] where she lives reported her as unusually [...] HISTORY: The patient is living in a chcf. Came to [place] with her grandmother in 2013, was very [...] year NAME: LORETTA CELESTIN : 89 HOSP#: [id number] MR#: [id number] CHART LOC: PCP: DICTATING: MARIA R Robin MD PSYCHIATRIC ADMISSION NOTE CONTINUED: unknown. TREATMENT PLAN: Resume outpatient medications, physical exam, collateral contact with community caregivers and social network, safety plan, aftercare plan and observe. 927 T: DD:[id number] TD:0745 DT:[id number] TT:0924 JOB:[id number] MICHELLE/SHANNON MARIA R Robin MD ESigned by: Date:12/22/15 Time:642 NOT FOR REDISCLOSURE WITHOUT PATIENT'S INFORMED CONSENT Patient Care team information Care Team Personnel Name: Dean Rivas RN Position: S RN Member Role: Primary Care Nurse Name: Fatoumata Stokes DO Position: S Physician - Primary Care Member Role: PCP Address: Address: [address] [place] [address] Adult [facility] Pediatric Medicine [place], [place] [address] Name: Britt Polanco RN Position: S RN Member Role: Primary Care Nurse Name: Awilda Grider RN Position: S RN Member Role: Primary Care Nurse Name: Chintan Leach DO Position: [facility] Renal MD Member Role: Lifetime Consulting Physician Address: Address: [address] [facility] [place] [address]- [place] Name: Chandler Ye RN Position: [facility] RN Member Role: Primary Care Nurse Name: Apurva Ji RN Position: [facility] ED RN W/OE and Tasks Member Role: Primary Care Nurse Name: Cordelia Matias RN Position: [facility] AMB Nurse Member Role: Primary Care Nurse Name: Radha Gutierrez Position: [facility] Outreach Member Role: Primary Care Nurse Name: Keenan Vincent RN Position: [facility] SN RN Member Role: Primary Care Nurse Name: Sasha Patricio RN Position: [facility] RN Member Role: Primary Care Nurse Name: Virgie Angel Position: [facility] RN Member Role: Primary Care Nurse Name: Azeb Gusman RN Position: [facility] RN Member Role: Primary Care Nurse Name: Meredith Martinez RN Position: [facility] RN Member Role: Primary Care Nurse Name: Anika Gotti RN Position: [facility] RN Member Role: Primary Care Nurse Name: Justina Walker RN Position: [facility] RN Member Role: Primary Care Nurse Name: Kenia Zuniga RN Position: [facility] PCO w/OE and EZ Script Member Role: Primary Care Nurse Name: Ivone Hidalgo RN Position: [facility] RN Member Role: Primary Care Nurse Name: Mazin Penn MD Position: [facility] Physician - Behavioral Health Member Role: Lifetime Consulting Physician Address: Address: [address] [place] [address]- [place] Care Team Related Persons Name: DORITA MCCOLLUM Address: [address] [place] [address] Name: STEW PECK Address: [address] [place] [address] Name: LISA PALMA Address: [address] [place] [address]
--- OUTSIDE RECORDS SUMMARY | 2023-08-16 12:25 | XMS_ITS | Continuity of Care Document ---
Author Name Unknown Organization [facility] Address [address] [place] [address] [address] [place] [address]- Care Team Providers Care Nuclear Plant Operator Name Role Phone Fatoumata Stokes DO Primary Care Physician [facility]): 07/14/22 - 07/21/[address] [place] [address]- Attending Physician: Joey Gutierrez MD Allergies, Adverse Reactions, Alerts Substance Reaction Severity Status Flagyl Active paliperidone Active cloZAPine Active Invega Active Immunizations Given and Recorded Vaccine Date Status Refusal Reason SARS-CoV-2 (COVID-19) mRNA-1273 vaccine 10/22/21 R ecorded SARS-CoV-2 (COVID-19) mRNA-1273 vaccine 12/10/20 R ecorded SARS-CoV-2 (COVID-19) mRNA-1273 vaccine 11/12/20 R ecorded tetanus/diphtheria/pertussis, acel(Tdap) 07/23/19 Given tetanus/diphtheria/pertussis, acel(Tdap) 07/30/18 Given tetanus/diphtheria/pertussis, acel(Tdap) 11/30/15 Given tetanus/diphtheria/pertussis, acel(Tdap) 10/20/14 Given tetanus/diphtheria/pertussis, acel(Tdap) 05/26/11 Given tetanus/diphtheria/pertussis, acel(Tdap) 07/31/10 Given influenza virus vaccine, inactivated 06/29/19 Give n influenza virus vaccine, inactivated 07/31/18 Brady rded influenza virus vaccine, inactivated 07/11/13 Give n influenza virus vaccine, inactivated 08/10/11 Give n influenza virus vaccine, inactivated 07/31/10 Give n influenza virus vaccine, inactivated 10/03/09 Brady rded pneumococcal 23-valent vaccine 07/11/13 Given Meningococcal Polysaccharide [...] Route to Pharmacy Electronically, [facility]/pharmacy #[id number], 164, cm,04/07/21 15:35:00 EDT, Height, 112, kg, 10/14/20 10... Start Date: 05/28/21 Status: Ordered benztropine 1 mg oral tablet 1 mg, 1, tablet, By Mouth, 2 times a day, # 60 tablet, Refills 0, Tot. Refills 0, Maintenance, 01/01/20 16:15:00 EDT, Route to Pharmacy Electronically, [facility]/pharmacy #[id number], 163, cm, 01/01/20 14:39:00 EDT, Height, 86.5, kg, 12/19/19 19:14:00 EDT, Dry We... Start Date: 01/01/20 Stop Date: 01/31/20 Status: Ordered cetirizine 10 mg oral tablet 1 tablet, By Mouth, Daily, # 30 tablet, 2 Refills, Maintenance, 07/12/22 10:38:00 EDT, [id number], 162, cm, 06/18/22 11:49:00 EDT, Height, 100, kg, 06/16/22 6:50:00 EDT, Dry Weight Start Date: 07/12/22 Status: Ordered docusate sodium 100 mg oral capsule 1 capsule, By Mouth, 2 times a day, # 60 capsule, 5 Refills, [facility], 163, cm, 09/24/21 16:23:00 EST, Height, 112, kg, 10/14/20 10:13:00 EST, Dry Weight Start Date: 02/03/22 Status: Ordered Estradiol Patch 0.1 mg/24 hours twice weekly transdermal film, extended release See Instructions, APPLY 1 PATCH TOPICALLY EVERY TUESDAY & TUESDAY, # 24 patch, 4 Refills, [facility], 84, APPLY 1 PATCH TOPICALLY EVERY TUESDAY & TUESDAY, 163, cm, 09/24/21 16:23:00 EST,Height, 112, kg, 10/14/20 10:13:00 EST, Dry Weight Start Date: 02/11/22 Status: Ordered ferrous sulfate 325 mg oral enteric coated tablet 1, tablet, By Mouth, Every other day, due for labs, # 90 tablet, Refills 1, Tot. Refills 1, 03/04/22 8:11:00 EDT, [facility], 163, cm, 09/24/21 16:23:00 EST, Height, 112, kg, 10/14/20 10:13:00EST, Dry Weight Start Date: 03/04/22 Status: Ordered ibuprofen 800 mg oral tablet 800 mg, 1, tablet, By Mouth, 3 times a day, PRN, Refills 0, Maintenance, as needed, 06/15/22 12:52:00 EDT, ; Start Date: 06/15/22 Status: Ordered lithium 300 mg oral capsule 1 capsule = 300 mg, By Mouth, Daily in AM, Maintenance, 05/25/22 18:23:00 EDT, Capsule Start Date: 05/25/22 Status: Ordered lithium 600 mg oral capsule 1 capsule = 600 mg, By Mouth, Daily at bedtime, # 30 capsule, 0 Refills, Maintenance, 01/01/20 16:16:00 EDT, Capsule, [facility]/pharmacy #[id number], 163, cm, 01/01/20 14:39:00 EDT, Height, 86.5, kg, 12/19/19 19:14:00 EDT, Dry Weight Start Date: 01/01/20 Stop Date: 03/01/20 Status: Ordered medroxyPROGESTERone 150 mg/mL intramuscular suspension 1 mL, Intramuscular, Every 3 months, # 1 mL, 3 Refills, Soft Stop, 03/13/21 13:05:00 EDT, [facility]/pharmacy #[id number], 164, cm, 03/13/21 9:51:00 EDT, Height, 112, kg, 10/14/20 10:13:00 EST, Dry Weight Start Date: 03/13/21 Status: Ordered omeprazole 20 mg oral enteric coated capsule 1 capsule, By Mouth, Daily, # 90 capsule, 0 Refills, [facility], 163, cm, 09/24/21 16:23:00 EST, Height, 112, kg, 10/14/20 10:13:00 EST, Dry Weight Start Date: 03/04/22 Status: Ordered perphenazine 16 mg oral tablet 16 mg, 1, tablet, By Mouth, 2 times a day, take with 4mg tablet for a total dose of 20 mg 2 times daily, Maintenance, 06/29/22 8:14:00 EDT, ; Start Date: 06/29/22 Status: Ordered perphenazine 4 mg oral tablet 4 mg, 1, tablet, By Mouth, 2 times a day, take with 16 mg tablet for a total dose of 20 mg 2 times daily, Maintenance, 06/29/22 8:15:00 EDT, ; Start Date: 06/29/22 Status: Ordered perphenazine 8 mg oral tablet 8 mg, 1, tablet, By Mouth, Daily, at 12 PM Start Date: 05/25/22 Status: Ordered Senna 8.6 mg oral tablet 8.6 mg, 1, tablet, By Mouth, Daily at bedtime, Maintenance, 06/29/22 8:17:00 EDT, ; Start Date: 06/29/22 Status: Ordered simethicone 125 mg oral capsule See Instructions, TAKE 1 CAPSULE BY MOUTH THREE TIMES A DAY AFTER MEALS AND AT BEDTIME NEEDED, #48 capsule, 11 Refills, [facility], 163, cm, 09/24/21 16:23:00 EST, Height, 112, kg, 10/14/20 10:13:00 EST, Dry Weight Start Date: 01/15/22 Status: Ordered Problem List Condition Confirmation Course Effective Dates Status Health Status Informant Last pap smear 08/31/19 negative Confirmed Active Chronic constipation Confirmed Active Chronic post-traumatic stress disorder Confirmed Active COVID-19 1 Confirmed 07/16/22 Active Depression Confirmed Active alcohol syndrome Confirmed Active Foster Care (Status) Confirmed Active Chronic GERD Confirmed Active Hyperprolactinemia Confirmed Active Iron deficiency anemia Confirmed Active Obese class II Confirmed Active Obesity Confirmed Active Oligomenorrhea Confirmed Active Personality disorder Confirmed Active Poor historian Confirmed Active Psychosis Confirmed 2009 Active Schizoaffective schizophrenia Confirmed Active History of suicidal ideation w/ suicide attempt Confirmed Active Weight gain with seroquel in the past 2 Confirmed Active 1Problem added by Discern Expert 2Really accelerated when seroquel dose increased Vital Signs Most recent to oldest [Reference Range]: 1 Height 162 cm (07/14/22 1:18 PM) Pulse Rate [55-90 bpm] 88 bpm (07/14/22 1:18 PM) Blood Pressure [90-138/55-84 mm Hg] 133/ 85mm Hg (07/14/22 1:18 PM) Temperature [96.8-100.4 DegF] 97.3 DegF (07/14/22 1:18 PM) Blood pressure sites Arm, left (07/14/22 1:18 PM) Temperature Route Temporal (07/14/22 1:18 PM) Social History Social History Type Response Tobacco Use: 4 or less cigar ettes(less than 1/4 pack)/day in last 30 days. Sex Patient Care team information Personnel Name: Fatoumata Stokes DO Address: Address: [address] [place], [place] [address]
--- OUTSIDE RECORDS SUMMARY | 2023-08-16 12:25 | XMS_ITS | Continuity of Care Document ---
Author Name Unknown Organization [facility] Address [address] [place] [address]- Care Team Providers Care Tinner Automatic Name Role Phone Fatoumata Stokes DO Primary Care Physician [facility]): 05[facility]06[facility]23 - 06/05/23 [facility] [address] [place], [place] [address] Allergies, Adverse Reactions, Alerts Substance Reaction [...] 09/29/22 9:09:00 EST, Route to Pharmacy Electronically, [facility], 163, cm, 09/14/22 8:12:00 EST, Height, 87.9, kg, 09/09/22 12:06:00 EST, Dry Weight Start Date: 09/29/22 Status: Ordered benztropine 1 mg oral tablet 1 mg, 1, tablet, By Mouth, 2 times a day, # 60 tablet, Refills 0, Tot. Refills 0, Maintenance, 09/14/22 13:02:00 EST, Route to Pharmacy Electronically, [facility], 163, cm, 09/14/22 8:12:00 EST, Height, 87.9, kg, 09/09/22 12:06:00 EST, D... Start Date: 09/14/22 Stop Date: 10/14/22 Status: Ordered cetirizine 10 mg oral tablet 1 tablet, By Mouth, Daily, # 30 tablet, 0 Refills, Maintenance, 09/14/22 13:03:00 EST, [facility], 163, cm, 09/14/22 8:12:00 EST, Height, 87.9, kg, 09/09/22 12:06:00 EST, Dry Weight Start Date: 09/14/22 Status: Ordered docusate sodium 100 mg oral capsule 1 capsule, By Mouth, 2 times a day, # 60 capsule, 11 Refills, 10/06/22 16:34:00 EST, [facility]/pharmacy #[id number], 163, cm, 09/14/22 8:12:00 EST, Height, 87.9, kg, 09/09/22 12:06:00 EST, Dry Weight Start Date: 10/06/22 Status: Ordered estradiol 0.1 mg/24 hours twice weekly transdermal film, extended release See Instructions, apply 1 patch Topically every tuesday and , # 24 patch, 0 Refills, Maintenance, 11/24/22 12:36:00 EST, [facility]/pharmacy #4471, Partial fill upon patient request if the prescription is for a schedule II opioid drug., 162, cm, 11/23... Start Date: 11/24/22 Status: Ordered Estradiol Patch 0.1 mg/24 hours twice weekly transdermal film, extended release See Instructions, APPLY 1 PATCH TOPICALLY EVERY TUESDAY & TUESDAY, # 8 patch, 0 Refills, 09/14/22 13:03:00 EST, [facility], APPLY 1 PATCH TOPICALLY EVERY TUESDAY & TUESDAY, 163,cm, 09/14/22 8:12:00 EST, Height, 87.9, kg, 09/09/22 12:06:... Start Date: 09/14/22 Status: Ordered ferrous sulfate 325 mg oral enteric coated tablet See Instructions, TAKE 1 TABLET BY MOUTH EVERY DAY, # 30 tablet, Refills 6, Tot. Refills 6, Maintenance, 05/06/23 14:25:00 EDT, Instructions Replace Required Details, Route to Pharmacy Electronically, [facility], 162, cm, 05/02/23 13:11:00 E... Start Date: 05/06/23 Status: Ordered ferrous sulfate 325 mg oral enteric coated tablet 1, tablet, By Mouth, Every other day, may take with food to minimize abdominal discomfort, # 15 tablet, Refills 0, Tot. Refills 0, 09/14/22 13:04:00 EST, Route to Pharmacy Electronically, [facility], 163, cm, 09/14/22 8:12:00 [...] 0 Refills, Maintenance, 09/14/22 13:05:00 EST, Tablet, [facility], Partial fill upon patient request if the prescription is for a schedule II opioid drug., 163, cm, 09/14/22 8:12:0... Start Date: 09/14/22 Status: Ordered medroxyPROGESTERone 150 mg/mL intramuscular suspension 1 mL, Intramuscular, Every 3 months, # 1 mL, 3 Refills, Soft Stop, 03/13/21 13:05:00 EDT, [facility]/pharmacy #[id number], 164, cm, 03/13/21 9:51:00 EDT, Height, 112, kg, 10/14/20 10:13:00 EST, Dry Weight Start Date: 03/13/21 Status: Ordered MiraLax oral powder for reconstitution = 17 Gm, By Mouth, Daily, dissolve in water before taking; hold for diarrhea, # 527 Gm, 1 Refills, Maintenance, 05/06/23 15:37:00 EDT, REC Powder, [facility], Partial fill upon patient request if the prescription is for a schedule II opioid... Start Date: 05/06/23 Status: Ordered olanzapine 2.5 mg oral tablet 2.5 mg, 1, tablet, By Mouth, Daily, PRN, Agitation/Psychosis, # 14 tablet, Refills 1, Tot. Refills 1, Maintenance, Other, 10/16/22 12:36:00 EST, Route to Pharmacy Electronically, [facility]/pharmacy #[id number], Partial fill upon patient request if the prescriptio... Start Date: 10/16/22 Stop Date: 11/13/22 Status: Ordered omeprazole 20 mg oral enteric coated capsule 1 capsule, By Mouth, Daily, # 90 capsule, 0 Refills, [facility], 163, cm, 09/24/21 16:23:00 EST, Height, 112, kg, 10/14/20 10:13:00 EST, Dry Weight Start Date: 03/04/22 Status: Ordered perphenazine 16 mg oral tablet 16 mg, 1, tablet, By Mouth, 2 times a day, take with 4mg tablet for a total dose of 20 mg 2 times daily, # 60 tablet, Refills 0, Tot. Refills 0, Maintenance, 09/14/22 13:06:00 EST, Route to Pharmacy Electronically, [facility], Partial fi... Start Date: 09/14/22 Status: Ordered perphenazine 4 mg oral tablet 4 mg, 1, tablet, By Mouth, 2 times a day, take with 16 mg tablet for a total dose of 20 mg 2 times daily, # 60 tablet, Refills 0, Tot. Refills 0, Maintenance, 09/14/22 13:06:00 EST, Route to PharmacyElectronically, [facility], Partial f... Start Date: 09/14/22 Status: Ordered perphenazine 8 mg oral tablet 8 mg, 1, tablet, By Mouth, Daily, at 12 PM, # 30 tablet, Refills 0, Tot. Refills 0, Maintenance, 09/14/22 13:06:00 EST, Route to Pharmacy Electronically, [facility], Partial fill upon patient request if the prescription is for a schedule... Start Date: 09/14/22 Status: Ordered Senna 8.6 mg oral tablet 8.6 mg, 1, tablet, By Mouth, Daily at bedtime, PRN, # 30 tablet, Refills 0, Tot. Refills 0, Maintenance, Constipation, 05/06/23 14:23:00 EDT, Route to Pharmacy Electronically, [facility] Tablet, Partial fill upon patient request if the presc... Start Date: 05/06/23 Status: Ordered Senna 8.6 mg oral tablet 8.6 mg, 1, tablet, By Mouth, Daily at bedtime, # 30 tablet, Refills 0, Tot. Refills 0, Maintenance,09/14/22 13:06:00 EST, Route to Pharmacy Electronically, [facility] Tablet, Partial fill upon patient request if the prescription is for... Start Date: 09/14/22 Status: Ordered simethicone 125 mg oral capsule See Instructions, TAKE 1 CAPSULE BY MOUTH THREE TIMES A DAY AFTER MEALS AND AT BEDTIME NEEDED, #48 capsule, 11 Refills, Maintenance, 09/24/22 18:10:00 EST, [facility] 469[facility], 163, cm, 09/14/22 8:12:00 EST, Height, 87.9, kg, 09/09/22 12:06:00 EST, [facility] Start Date: 09/24/22 Status: Ordered ZyPREXA 2.5 mg oral tablet 2.5 mg, 1, tablet, By Mouth, Daily at bedtime, # 14 tablet, Refills 0, Tot. Refills 0, Maintenance,10/16/22 11:51:00 EST, Route to Pharmacy Electronically, [facility]/pharmacy #[id number], Partial fill upon patient request if the [...] Display: History and Physical Hospital Authored Date: [id number] [place], [place] PSYCHIATRIC HISTORY ASSESS EXAM NAME: LORETTA CELESTIN : 89 MR#: [id number] PCP: ADMITTED: 12/20/15 DATE OF SERVICE: 12/20/15 HPI - Hosp Psych H P Chief Complaint Pt was sent from [facility] here for hallunication History of Present Illness 24 yo AA Female with known schizophrenia was seen at [facility] for hallucination. Apparently pt has been lived in [facility] and sent to [facility] for acute exacerbation of her underline schizophrenia. [...] QDAY Haloperidol* (Haldol*) 5 MG PO BID [employer] Carbonate SR* (Lithobid*) 300 MG PO QDAY liTHIum Carbonate SR* ([employer] Carbonate SR*) 450 MG PO 4PM Discontinued Reported Medications Citalopram* (CeleXA*) 40 MG PO QDAY Benztropine* 0.5 MG PO BID buPROPion SR* 150 MG PO [id number] Trazodone* (Desyrel*) 100 MG PO HS RisperiDONE* [...] 324 MG QDAY 12/20 09 CKD PO [employer] Carbonate 300 MG QDAY 12/20 09 AC PO Polyethylene Glycol 17 GM QDAY 12/20 09 CKD PO Benztropine Mesylate 1 MG 0900,1700 12/19 1700 AC PO Docusate Sodium 100 MG 0900,1700 12/19 1700 AC PO Haloperidol 5 MG 0900,1700 12/19 1700 AC PO [employer] Carbonate 450 MG PM 12/19 1700 AC [...] fullly ambulartory Care Level Complexity of Care [id number] Comprehensive history, comprehensive examination, medical decision making of low complexity, at least 20 minutes at the bedside, patient's floor/ unit. ESigned by: YAS GARZA MD Date:12/21/15 Time:1633 / NOT FOR REDISCLOSURE WITHOUT PATIENT'S INFORMED CONSENT Admission evaluation note * Event Display: Admit Notes Authored Date: [id number] [place], [place] PSYCHIATRIC ADMISSION NOTE NAME: LORETTA CELESTIN : 89 HOSPITAL #: [id number] #: [id number] CHART LOC: PCP: DICTATING: MARIA R Robin MD DATE OF ADMISSION: 12/20/15 DATE OF SERVICE: 12/21/15 CHIEF COMPLAINT: This 23-year-old woman was admitted to [facility] on 12/20/15 on a Conditional Voluntary [...] is living in a chcf. Came to [place] with her grandmother in 2013, was very [...] year NAME: LORETTA CELESTIN : 89 HOSP#: [id number] MR#: [id number] CHART LOC: PCP: DICTATING: MARIA R Robin MD PSYCHIATRIC ADMISSION NOTE CONTINUED: unknown. TREATMENT PLAN: Resume outpatient medications, physical exam, collateral contact with community caregivers and social network, safety plan, aftercare plan and observe. 927 T: DD:[id number] TD:0745 DT:20151221 TT:0924 JOB:[id number] MICHELLE/SHANNON MARIA R Robin MD ESigned by: Date:12/22/15 Time:642 NOT FOR REDISCLOSURE WITHOUT PATIENT'S INFORMED CONSENT Patient Care team information Care Team Personnel Name: Dean Rivas RN Position: S RN Member Role: Primary Care Nurse Name: Fatoumata Stokes DO Position: S Physician - Primary Care Member Role: PCP Address: Address: [address] [place] [address] Adult & Pediatric Medicine [place], [place] [address] Name: Britt Polanco RN Position: S RN Member Role: Primary Care Nurse Name: Awilda Grider RN Position: S RN Member Role: Primary Care Nurse Name: Chintan Leach DO Position: [facility] Renal MD Member Role: Lifetime Consulting Physician Address: Address: [address] [facility] [place] [address]- Name: Cassi ROTHMAN, Chandler Robin Position: [facility] ED RN W/OE and Tasks Member Role: Primary Care Nurse Name: Apurva Ji RN Position: [facility] ED RN W/OE and Tasks Member Role: Primary Care Nurse Name: Florencio RN, Cordelia Tarango Position: [facility] AMB Nurse Member Role: Primary Care Nurse Name: Radha Gutierrez Position: [facility] Outreach Member Role: Primary Care Nurse Name: Keenan Vincent RN Position: [facility] SN RN Member Role: Primary Care Nurse Name: Sasha Patricio RN Position: [facility] RN Member Role: Primary Care Nurse Name: Virgie Angel Position: [facility] RN Member Role: Primary Care Nurse Name: Azeb Gusman RN Position: [facility] RN Member Role: Primary Care Nurse Name: Meredith Martinez RN Position: [facility] RN Member Role: Primary Care Nurse Name: Anika Gotti RN Position: [facility] RN Member Role: Primary Care Nurse Name: Justina Walker RN Position: [facility] RN Member Role: Primary Care Nurse Name: Kenia Zuniga RN Position: [facility] PCO w/OE and EZ Script Member Role: Primary Care Nurse Name: Ivone Hidalgo RN Position: [facility] RN Member Role: Primary Care Nurse Name: Mazin Penn MD Position: [facility] Physician - Behavioral Health Member Role: Lifetime Consulting Physician Address: Address: [address] [place] [address]- Care Team Related Persons Name: CHUNDORITA Address: [address] [place] [address] Name: LIV STEW Address: [address] [place] [address] Name: LISA PALMA Address: [address] [place] [address]
--- OUTSIDE RECORDS SUMMARY | 2023-08-16 12:25 | XMS_ITS | Continuity of Care Document ---
Author Name Unknown Organization [facility] As [address] [place] [address]- Care Team Providers Care Ergonomic Specialist Name Role Phone Fatoumata Stokes DO Primary Care Physician ( [phone] [facility]): 07[facility]14/22 - 08/13/[address] [place] [address]- Attending Physician: Jada Torres Admitting Physician: AdmtrJada Referring Physician: Admtr, Ar8 Allergies, Adverse Reactions, Alerts Substance Reaction Severity [...] Pharmacy Electronically, [facility]/pharmacy #[id number], 164, cm,04/07/21 15:35:00 EDT, Height, 112, kg, [...] tablet, 2 Refills, Maintenance, 07/12/22 10:38:00 EDT, [facility], 162, cm, 06/18/22 11:49:00 EDT, Height, 100, kg, 06/16/22 6:50:00 EDT, Dry Weight Start Date: 07/12/22 Status: Ordered docusate sodium 100 mg oral capsule 1 capsule, By Mouth, 2 times a day, # 60 capsule, 5 Refills, [facility] 87[facility], 163, cm, 09/24/21 16:23:00 EST, Height, 112, kg, 10/14/20 10:13:00 EST, Dry Weight Start Date: 02/03/22 Status: Ordered Estradiol Patch 0.1 mg/24 hours twice weekly transdermal film, extended release See Instructions, APPLY 1 PATCH TOPICALLY EVERY TUESDAY & TUESDAY, # 24 patch, 4 Refills, [facility], 84, APPLY 1 PATCH TOPICALLY EVERY TUESDAY [...] Mouth, Daily, # 90 capsule, 0 Refills, [facility], 163, cm, 09/24/21 16:23:00 EST, Height, 112, [...] AT BEDTIME NEEDED, #48 capsule, 11 Refills, [facility], 163, cm, 09/24/21 16:23:00 EST, Height, 112, [...] Display: History and Physical Hospital Authored Date: [id number] [place], [place] PSYCHIATRIC HISTORY ASSESS EXAM NAME: LORETTA CELESTIN : [birth year] MR#: [id number] PCP: ADMITTED: 12/20/15 DATE OF SERVICE: 12/20/15 HPI - Hosp Psych H P Chief Complaint Pt was sent from [facility] here for hallunication History of Present Illness 24 yo AA Female with known schizophrenia was seen at [facility] for hallucination. Apparently pt has been lived in [facility] and sent to [facility] for acute exacerbation of her underline schizophrenia. [...] QDAY Haloperidol* (Haldol*) 5 MG PO BID [place] Carbonate SR* (Lithobid*) 300 MG PO QDAY liTHIum Carbonate SR* ([place] Carbonate SR*) 450 MG PO 4PM Discontinued Reported Medications Citalopram* (CeleXA*) 40 MG PO QDAY Benztropine* 0.5 MG PO BID buPROPion SR* 150 MG PO [id number] Trazodone* (Desyrel*) 100 MG PO HS RisperiDONE* [...] Admin Ferrous Sulfate 324 MG QDAY 12/20 0900 CKD PO [place] Carbonate 300 MG QDAY 12/20 09 AC PO Polyethylene Glycol 17 GM QDAY 12/20 0900 CKD PO Benztropine Mesylate 1 MG 0900,1700 12/19 1700 AC PO Docusate Sodium 100 MG 0900,1700 26 1700 AC PO Haloperidol 5 MG 0900,17012/19 1700 AC PO [place] Carbonate 450 MG PM 12/19 1700 AC PO Risperidone 0.5 MG 0900,12/19 1700 AC PO Senna 17.2 MG 0900,12/19 1700 AC PO Acetaminophen 650 MG PRN4H PRN 12/19 1235 AC PO Pain(1-10)/Fever Al Hydrox/Mg Hydrox/ 30 ML PRN4H PRN 12/19 1235 CKD Simethicone PO Heartburn/Nausea Hydroxyzine Pamoate 25 MG PRNTID PRN 12/19 1235 AC PO Anxiety Magnesium Hydroxide 30 ML PRNQDAY PRN 12/19 1235 CKD PO Constipation Nicotine [...] fullly ambulartory Care Level Complexity of Care [id number] Comprehensive history, comprehensive examination, medical decision making of low complexity, at least 20 minutes at the bedside, patient's floor/ unit. ESigned by: YAS GARZA MD Date:12/21/15 Time:1633 / NOT FOR REDISCLOSURE WITHOUT PATIENT'S INFORMED CONSENT Admission evaluation note * Event Display: Admit Notes Authored Date: [id number] [place], [place] PSYCHIATRIC ADMISSION NOTE NAME: LORETTA CELESTIN : 89 HOSPITAL #: [id number] MR #: [id number] CHART LOC: PCP: DICTATING: MARIA R Robin MD DATE OF ADMISSION: 12/20/15 DATE OF SERVICE: 12/21/15 CHIEF COMPLAINT: This 23-year-old woman was admitted to [facility] on 12/20/15 on a Conditional Voluntary application because of suicidal ideation. HISTORY OF PRESENT ILLNESS: The patient has been treated for schizoaffective disorder depressed type, posttraumatic stress disorder, intellectual disability and alcohol syndrome with multiple hospitalizations for self-harming behavior and suicidal ideation. She presented to Crisis [facility] from her [facility] reporting that she was having urges to [...] how they had evolved. Staff at the [facility] where she lives reported her as unusually [...] HISTORY: The patient is living in a usp. Came to [place] with her grandmother in [...] year NAME: LORETTA CELESTIN : 89 HOSP#: [id number] MR#: [id number] CHART LOC: PCP: DICTATING: MARIA R Robin MD PSYCHIATRIC ADMISSION NOTE CONTINUED: unknown. TREATMENT PLAN: Resume outpatient medications, physical exam, collateral contact with community caregivers and social network, safety plan, aftercare plan and observe. 927 T:sn DD:20151221 TD:0745 DT:20151221 TT:0924 JOB:[id number] MICHELLE/SHANNON MARIA R Robin MD ESigned by: Date:12/22/15 Time:642 NOT FOR REDISCLOSURE WITHOUT PATIENT'S INFORMED CONSENT Patient Care team information Care Team Personnel Name: Dean Rivas RN Position: [facility] RN Member Role: Primary Care Nurse Name: Fatoumata Stokes DO Position: [facility] Primary Care Physician Member Role: PCP Address: Address: [address] [place] [address] Adult [place] [address]- Name: Britt Polanco RN Position: [facility] RN Member Role: Primary Care Nurse Name: Angela Aceves RN Position: [facility] RN Member Role: Primary Care Nurse Name: Anyi Avendano RN Position: [facility] RN Supv Member Role: Primary Care Nurse Name: Chintan Leach DO Position: [facility] Renal MD Member Role: Lifetime Consulting Physician Address: Address: [address] [place], [place] [address] [place], [place] [address] Name: Chandler Ye RN Position: [facility] RN Member Role: Primary Care Nurse Name: Apurva Ji RN Position: [facility] ED RN W/OE and Tasks Member Role: Primary Care Nurse Name: Cordelia Matias RN Position: [facility] AMB Nurse Member Role: Primary Care Nurse Name: Radha Gutierrez Position: [facility] Outreach Member Role: Primary Care Nurse Name: Keenan Vincent RN Position: [facility] RN Member Role: Primary Care Nurse Name: Virgie Angel Position: [facility] RN Member Role: Primary Care Nurse Name: Marylu ROTHMAN, Darcie Position: [facility] RN Member Role: Primary Care Nurse Name: Umesh Pearson RN Position: [facility] RN Member Role: Primary Care Nurse Name: Azeb Gusman RN Position: [facility] RN Member Role: Primary Care Nurse Name: Meredith Martinez RN Position: [facility] RN Member Role: Primary Care Nurse Name: Kennedi Roca RN Position: [facility] RN Member Role: Primary Care Nurse Name: Justina Walker RN Position: [facility] RN Member Role: Primary Care Nurse Name: Kenia Zuniga RN Position: [facility] PCO w/OE and EZ Script Member Role: Primary Care Nurse Name: Mazin Penn MD Position: [facility] Psychiatry MD Member Role: Lifetime Consulting Physician Address: Address: [address] [place] [address] [place] Care Team Related Persons Name: STEW PECK Address: [address] [place] [address] Name: ARELY VASQUEZ STAFF Address: [address] [place] [address] Name: ANYA DON Address: [address] [place] [address]
--- OUTSIDE RECORDS SUMMARY | 2023-08-16 12:26 | XMS_ITS | Continuity of Care Document ---
Author Name Unknown Organization [facility] Address [address] [place] [id number]- Care Team Providers Care Research Coordinator Name Role Phone Fatoumata Stokes DO Primary Care Physician Encounter [facility] Date(s): 08/16/22 - 08/16/[address] [address]- Encounter Diagnosis Agitation(Final) - 08/16/22 Dysuria(Final) - 08/16/22 Discharge Disposition: A-D/C Home Attending Physician: Sheila [...] 05/28/21 7:42:00 EDT, Route to Pharmacy Electronically, [facility]/pharmacy #[id number], 164, cm,04/07/21 15:35:00 EDT, Height, 112, kg, 10/14/20 10... Start Date: 05/28/21 Status: Ordered benztropine 1 mg oral tablet 1 mg, 1, tablet, By Mouth, 2 times a day, # 60 tablet, Refills 0, Tot. Refills 0, Maintenance, 01/01/20 16:15:00 EDT, Route to Pharmacy Electronically, [facility]/pharmacy #[id number], 163, cm, 01/01/20 14:39:00 EDT, Height, 86.5, kg, 12/19/19 19:14:00 EDT, Dry We... Start Date: 01/01/20 Stop Date: 01/31/20 Status: Ordered cetirizine 10 mg oral tablet 1 tablet, By Mouth, Daily, # 30 tablet, 2 Refills, Maintenance, 07/12/22 10:38:00 EDT, [facility] STORE 13776, 162, cm, 06/18/22 11:49:00 EDT, Height, 100, kg, 06/16/22 6:50:00 EDT, Dry Weight Start Date: 07/12/22 Status: Ordered docusate sodium 100 mg oral capsule 1 capsule, By Mouth, 2 times a day, # 60 capsule, 5 Refills, [facility] STORE 69846, 163, cm, 09/24/21 16:23:00 EST, Height, 112, kg, 10/14/20 10:13:00 EST, Dry Weight Start Date: 02/03/22 Status: Ordered Estradiol Patch 0.1 mg/24 hours twice weekly transdermal film, extended release See Instructions, APPLY 1 PATCH TOPICALLY EVERY TUESDAY & TUESDAY, # 24 patch, 4 Refills, [facility] STORE [id number], 84, APPLY 1 PATCH TOPICALLY EVERY TUESDAY [...] Maintenance, 01/01/20 16:16:00 EDT, Capsule, [facility]/pharmacy #[id number], 163, cm, 01/01/20 14:39:00 EDT, Height, 86.5, kg, 12/19/19 19:14:00 EDT, Dry Weight Start Date: 01/01/20 Stop Date: 03/01/20 Status: Ordered medroxyPROGESTERone 150 mg/mL intramuscular suspension 1 mL, Intramuscular, Every 3 months, # 1 mL, 3 Refills, Soft Stop, 03/13/21 13:05:00 EDT, [facility]/pharmacy #4471, 164, cm, 03/13/21 9:51:00 EDT, Height, 112, kg, 10/14/20 10:13:00 EST, Dry Weight Start Date: 03/13/21 Status: Ordered omeprazole 20 mg oral enteric coated capsule 1 capsule, By Mouth, Daily, # 90 capsule, 0 Refills, [facility] STORE 34070, 163, cm, 09/24/21 16:23:00 EST, Height, 112, [...] AT BEDTIME NEEDED, #48 capsule, 11 Refills, [facility] STORE 12359, 163, cm, 09/24/21 16:23:00 EST, Height, 112, [...] 1 Oxygen Saturation [94-100 %] 100 % (08/16/22 1:21 PM) Pulse Rate [55-90 bpm] 81 bpm (08/16/22 1:21 PM) Blood Pressure [90-138/55-84 mm Hg] 129/ 86mm Hg (08/16/22 1:21 PM) Respiratory Rate [16-30 br/min] 18 br/mi n (08/16/22 1:21 PM) Temperature [96.8-100.4 DegF] 98.5 DegF (08/16/22 1: PM) Mode of Delivery (Oxygen) Room air (08/16/22 1:21 PM) Temperature Route Oral (08/16/22 1:21 PM) Social History Social History Type Response Tobacco Use: 4 or less cigar ettes(less than 1/4 pack)/day in last 30 days. Sex History and physical note * Event Display: History and Physical Hospital Authored Date: [id number] [place], [place] PSYCHIATRIC HISTORY ASSESS EXAM NAME: LORETTA CELESTIN : 89 MR#: [id number] PCP: ADMITTED: 12/20/15 DATE OF SERVICE: 12/20/15 HPI - Hosp Psych H P Chief Complaint Pt was sent from [facility] here for hallunication History of Present Illness 24 yo AA Female with known schizophrenia was seen at [facility] for hallucination. Apparently pt has been lived in fdc and sent to [facility] for acute exacerbation of her underline schizophrenia. [...] QDAY Haloperidol* (Haldol*) 5 MG PO BID Bancroft Carbonate SR* (Lithobid*) 300 MG PO QDAY liTHIum Carbonate SR* (Bancroft Carbonate SR*) 450 MG PO 4PM Discontinued Reported Medications Citalopram* (CeleXA*) 40 MG PO QDAY Benztropine* 0.5 MG PO BID buPROPion SR* 150 MG PO [id number] Trazodone* (Desyrel*) 100 MG PO HS RisperiDONE* [...] Admin Ferrous Sulfate 324 MG QDAY 12/20 899 CKD PO Bancroft Carbonate 300 MG QDAY 12/20 09 AC PO Polyethylene Glycol 17 GM QDAY 12/20 899 CKD PO Benztropine Mesylate 1 MG 0900,12/19 1700 AC PO Docusate Sodium 100 MG 0900,0 12/19 1700 AC PO Haloperidol 5 MG 0900,12/19 1700 AC PO Bancroft Carbonate 450 MG PM 12/19 1700 AC [...] fullly ambulartory Care Level Complexity of Care [id number] Comprehensive history, comprehensive examination, medical decision making of low complexity, at least 20 minutes at the bedside, patient's floor/ unit. ESigned by: YAS GARZA MD Date:12/21/15 Time:1633 / NOT FOR REDISCLOSURE WITHOUT PATIENT'S INFORMED CONSENT Admission evaluation note * Event Display: Admit Notes Authored Date: [id number] [place], [place] PSYCHIATRIC ADMISSION NOTE NAME: LORETTA CELESTIN : 89 HOSPITAL #: [id number] MR #: [id number] CHART LOC: PCP: DICTATING: MARIA R Robin MD DATE OF ADMISSION: 12/20/15 DATE OF SERVICE: 12/21/15 CHIEF COMPLAINT: This 23-year-old woman was [facility] on 12/20/15 on a Conditional Voluntary application because of suicidal ideation. HISTORY OF PRESENT ILLNESS: The patient has been treated for schizoaffective disorder depressed type, posttraumatic stress disorder, intellectual disability and alcohol syndrome with multiple hospitalizations for self-harming behavior and suicidal ideation. She presented to Crisis Services from her fdc reporting that she was having urges to [...] how they had evolved. Staff at the fdc where she lives reported her as unusually [...] HISTORY: The patient is living in a fdc. Came to [place] with her grandmother in 2013, was very [...] year NAME: LORETTA CELESTIN : 89 HOSP#: [id number] MR#: [id number] CHART LOC: PCP: DICTATING: MARIA R Robin MD PSYCHIATRIC ADMISSION NOTE CONTINUED: unknown. TREATMENT PLAN: Resume outpatient medications, physical exam, collateral contact with community caregivers and social network, safety plan, aftercare plan and observe. 927 T: DD:[id number] TD:0745 DT:[id number] TT:0924 JOB:[id number] MICHELLE/SHANNON MARIA R Robin MD ESigned by: Date:12/22/15 Time:0643 NOT FOR REDISCLOSURE WITHOUT PATIENT'S INFORMED CONSENT Note * Bri TORRES, Radha Loco: PERFORM, SIGN, VERIFY Event Display: Patient Education Handout Authored Date: [id number] Patient Care team information Care Team Personnel Name: Dean Rivas RN Position: S RN Member Role: Primary Care Nurse Name: Fatoumata Stokes DO Position: S Primary Care Physician Member Role: PCP Address: Address: [address] [place] [address] [facility] [place], [place] [address] Name: Britt Polanco RN Position: S RN Member Role: Primary Care Nurse Name: Angela Aceves RN Position: S RN Member Role: Primary Care Nurse Name: Anyi Avendano RN Position: [facility] RN Supv Member Role: Primary Care Nurse Name: Chintan Leach DO Position: [facility] Renal MD Member Role: Lifetime Consulting Physician Address: Address: [address] [place], [place] [address] [place] [address]- Name: Chandler Ye RN Position: [facility] RN Member Role: Primary Care Nurse Name: Apurva Ji RN Position: [facility] ED RN W/OE and Tasks Member Role: Primary Care Nurse Name: Cordelia Matias RN Position: [facility] AMB Nurse Member Role: Primary Care Nurse Name: Radha Gutierrez Position: [facility] Outreach Member Role: Primary Care Nurse Name: Keenan Vincent RN Position: [facility] SN RN Member Role: Primary Care Nurse Name: Virgie Angel Position: [facility] RN Member Role: Primary Care Nurse Name: Darcie Valero RN Position: [facility] RN Member Role: Primary Care Nurse Name: Umesh Pearson RN Position: [facility] RN Member Role: Primary Care Nurse Name: Azeb Gusman RN Position: [facility] RN Member Role: Primary Care Nurse Name: Meredith Martinez RN Position: [facility] RN Member Role: Primary Care Nurse Name: Kennedi Roca RN Position: [facility] RN Member Role: Primary Care Nurse Name: Justina Walker RN Position: [facility] RN Member Role: Primary Care Nurse Name: Kenia Zuniga RN Position: [facility] PCO w/OE and EZ Script Member Role: Primary Care Nurse Name: Mazin Penn MD Position: [facility] Psychiatry MD Member Role: Lifetime Consulting Physician Address: Address: [address] [place] [address]- Name: Anna Lundy Position: [facility] ED TA [facility] Member Role: Site Leasing Agent Name: Krystin Brar RN Position: [facility] ED RN W/OE and Tasks Member Role: Patient Care Provider Name: Radha Gregory MD Position: [facility] Resident Member Role: Resident Address: Address: [address] [place] [address]- Name: Sheila Ayala MD Position: [facility] Resident Member Role: Admitting Physician Address: Address: [address] [place] [address]- Care Team Related Persons Name: STEW PECK Address: home [address] [place] [address] Name: ARELY VASQUEZ STAFF Address: home [address] [place] [address] Name: ANYA DON Address: home [address] [place] [address]
--- OUTSIDE RECORDS SUMMARY | 2023-08-16 12:26 | XMS_ITS | Continuity of Care Document ---
Author Name Unknown Organization [facility] Address [address] [place] [address]- Care Team Providers Care Facility Designer Name Role Phone Fatoumata Stokes DO Primary Care Physician [facility] Date(s): 06/22/22 - 07/22/22 [facility] [address] [place], [place] [address] Allergies, Adverse [...] to Pharmacy Electronically, [facility]/pharmacy #[id number], 164, cm,04/07/21 15:35:00 EDT, Height, 112, kg, [...] tablet, 2 Refills, Maintenance, 07/12/22 10:38:00 EDT, [facility], 162, cm, 06/18/22 11:49:00 EDT, Height, 100, kg, 06/16/22 6:50:00 EDT, Dry Weight Start Date: 07/12/22 Status: Ordered docusate sodium 100 mg oral capsule 1 capsule, By Mouth, 2 times a day, # 60 capsule, 5 Refills, [facility] STORE 38638, 163, cm, 09/24/21 16:23:00 EST, Height, 112, kg, 10/14/20 10:13:00 EST, Dry Weight Start Date: 02/03/22 Status: Ordered Estradiol Patch 0.1 mg/24 hours twice weekly transdermal film, extended release See Instructions, APPLY 1 PATCH TOPICALLY EVERY TUESDAY & TUESDAY, # 24 patch, 4 Refills, [facility] STORE 37863, 84, APPLY 1 PATCH TOPICALLY EVERY TUESDAY [...] 0 Refills, [facility] STORE 84972, 163, cm, 09/24/21 16:23:00 EST, Height, 112, [...] AT BEDTIME NEEDED, #48 capsule, 11 Refills, [facility] STORE 57554, 163, cm, 09/24/21 16:23:00 EST, Height, 112, [...] Personnel Name: Fatoumata Stokes DO Address: Address: [address] [place] [address] Adult [facility] [place], [place] [address]
--- OUTSIDE RECORDS SUMMARY | 2023-08-16 12:27 | XMS_ITS | Continuity of Care Document ---
Author Name Unknown Organization [facility] Address [address] [place] [id number] Care Team Providers Care Supervisor [place] Department Name Role Phone Fatoumata Stokes DO Primary Care Physician Encounter [facility] Date(s): 07/05/23 - 07/08/[address] [address] Discharge Disposition: A-D/C Home Attending Physician: Gwen Ross MD Admitting Physician: Gwen Juarez MD Referring Physician: Not on Staff, Referring MD Allergies, Adverse Reactions, Alerts Substance Reaction Severity Status Flagyl Active Haldol Active cloZAPine Active Invega Active paliperidone Active [...] acetaminophen 325 mg oral tablet 650 mg, By Mouth, Every 6 hours, PRN, /Headache, Refills 0, Maintenance, Pain , Mild, 07/05/23 0:27:00 EDT, Partial fill upon patient request if the prescription is for a schedule II opioid drug. Start Date: 07/05/23 Status: Ordered benztropine 1 mg oral tablet 1 mg, By Mouth, 2 times a day, # 60 tablet, Refills 1, Tot. Refills 1, Maintenance, 07/06/23 12:02:00 EDT, Route to Pharmacy Electronically, [facility], Partial fill upon patient request ifthe prescription is for a schedule II opioid drug.,... Start Date: 07/06/23 Stop Date: 09/04/23 Status: Ordered cetirizine 10 mg oral tablet = 10 mg, By Mouth, Daily, 0 Refills, Maintenance, 07/05/23 0:27:00 EDT, Tablet, Partial fill upon patient request if the prescription is for a schedule II opioid drug. Start Date: 07/05/23 Status: Ordered ferrous sulfate 325 mg oral enteric coated tablet 325 mg, By Mouth, Every other day, Refills 0, Maintenance, 07/05/23 0:26:00 EDT, Partial fill upon patient request if the prescription is for a schedule II opioid drug. Start Date: 07/05/23 Status: Ordered fluticasone 50 mcg/inh nasal spray 1 sprays = 50 mcg, Nares, Both, 2 times a day, PRN Other, nasal allergy symptoms, 0 Refills, Maintenance, 07/05/23 0:27:00 EDT, Nasal [place], Partial fill upon patient request if the prescription is for a schedule II opioid drug. Start Date: 07/05/23 Status: Ordered lactulose 10 gm/15 ml oral syrup 30 mL = 20 Gm, By Mouth, 3 times a day, PRN Constipation, 0 Refills, Maintenance, 07/05/23 0:27:00 EDT, Syrup, Partial fill upon patient request if the prescription is for a schedule II opioid drug. Start Date: 07/05/23 Status: Ordered lithium 300 mg oral tablet = 300 mg, By Mouth, 2 times a day, # 60 each, 1 Refills, Maintenance, 07/06/23 12:02:00 EDT, Tablet, [facility], Partial fill upon patient request if the prescription is for a schedule II opioid drug., 162, cm, 06/16/23 8:41:00 EDT, Height,... Start Date: 07/06/23 Stop Date: 09/04/23 Status: Ordered Maalox Plus Liquid 30 mL, By Mouth, Every 4 hours, PRN Dyspepsia, 0 Refills, Maintenance, 07/05/23 0:27:00 EDT, Suspension, Partial fill upon patient request if the prescription is for a schedule II opioid drug. Start Date: 07/05/23 Status: Ordered Milk of Magnesia Liquid 30 mL, By Mouth, Every 4 hours, PRN Constipation, 0 Refills, Maintenance, 07/05/23 0:27:00 EDT, Suspension, Partial fill upon patient request if the prescription is for a schedule II opioid drug. Start Date: 07/05/23 Status: Ordered MiraLax Powder 1 pack/packet = 17 Gm, By Mouth, Daily, 0 Refills, Maintenance, 07/05/23 0:27:00 EDT, Powder, Partial fill upon patient request if the prescription is for a schedule II opioid drug. Start Date: 07/05/23 Status: Ordered olanzapine 2.5 mg oral tablet 5 mg, By Mouth, 2 times a day, # 60 each, Refills 3, Tot. Refills 3, Maintenance, 07/06/23 12:02:00EDT, Route to Pharmacy Electronically, [facility], Partial fill upon patient request if the prescription is for a schedule II opioid drug., 1... Start Date: 07/06/23 Stop Date: 11/03/23 Status: Ordered olanzapine 5 mg oral tablet 5 mg, By Mouth, 3 times a day, PRN, # 30 tablet, Refills 0, Tot. Refills 0, Maintenance, Agitation,07/06/23 12:02:00 EDT, Route to Pharmacy Electronically, [facility], Partial fill upon patient request if the prescription is for a schedule... Start Date: 07/06/23 Stop Date: 08/05/23 Status: Ordered traZODone 50 mg oral tablet 50 mg, By Mouth, Daily at bedtime, PRN, # 30 capsule, Refills 0, Tot. Refills 0, Maintenance, Sleep, 07/06/23 12:02:00 EDT, Route to Pharmacy Electronically, [facility], Partial fill upon patient request if the prescription is for a schedule... Start Date: 07/06/23 Stop Date: 08/05/23 Status: Ordered Tums 500 mg oral tablet, chewable 500 mg, 1, tablet, Chew, Every 4 hours, PRN, Refills 0, Maintenance, Dyspepsia, 07/05/23 0:27:00 EDT, Partial fill upon patient request if the prescription is for a schedule II opioid drug. Start Date: 07/05/23 Status: Ordered Problem List Condition Confirmation Course [...] recent to oldest [Reference Range]: 1 2 3 Oxygen Saturation [94-100 %] 100 % (07/08/23 8:00 AM) 100 % (07/08/23 4:00 AM) 100 % (07/08/23 12:00 AM) Pulse Rate [55-90 bpm] 67 bpm (07/08/23 8:00 AM) 64 bpm (07/08/23 4:00 AM) 83 bpm (07/08/23 12:00 AM) Blood Pressure [90-138/55-84 mm Hg] 119/45mm Hg (07/08/23 8:00 AM) 113/64mm Hg (07/08/23 4:00 AM) 126/78mm Hg (07/08/23 12:00 AM) Respiratory Rate [16-30 br/min] 18 br/min (07/08/23 8:00 AM) 15 br/min *L* (07/08/23 4:00 AM) 16 br/min (07/08/23 12:00 AM) Temperature [96.8-100.4 DegF] 97.4 DegF (07/08/23 8:00 AM) 98.6 DegF (07/08/23 4:00 AM) 98.8 DegF (07/08/23 12:00 AM) Mode of Delivery (Oxygen) Room air (07/08/23 8:00 AM) Room air (07/08/23 4:00 AM) Room air (07/08/23 12:00 AM) Blood pressure sites Arm, left (07/08/23 8:00 AM) Arm, left (07/08/23 4:00 AM) Arm, left (07/08/23 12:00 AM) Temperature Route Oral (07/08/23 8:00 AM) Oral (07/08/23 4:00 AM) Oral (07/08/23 12:00 AM) Social History Social History Type Response Smoking Status Never (less than 100 in lifetime); Interested in cessation: No; Patient wants NRT during admission No entered on: 06/13/23 Sex History and physical note * Event Display: History and Physical Hospital Authored Date: [id number] [place], [place] PSYCHIATRIC HISTORY ASSESS EXAM NAME: LORETTA CELESTIN : 89 MR#: [id number] PCP: ADMITTED: 12/20/15 DATE OF SERVICE: 12/20/15 HPI - Hosp Psych H P Chief Complaint Pt was sent from [facility] ER here for hallunication History of Present Illness 24 yo AA Female with known schizophrenia was seen at [facility] ER for hallucination. Apparently pt has been lived in jail and sent to [facility] for acute exacerbation of her underline schizophrenia. [...] QDAY Haloperidol* (Haldol*) 5 MG PO BID [place] Carbonate SR* (Lithobid*) 300 MG PO QDAY liTHIum Carbonate SR* ([place] Carbonate SR*) 450 MG PO 4PM Discontinued Reported Medications Citalopram* (CeleXA*) 40 MG PO QDAY Benztropine* 0.5 MG PO BID buPROPion SR* 150 MG PO [id number] Trazodone* (Desyrel*) 100 MG PO HS RisperiDONE* [...] 324 MG QDAY 12/20 0900 CKD PO [place] Carbonate 300 MG QDAY 12/20 0900 AC PO Polyethylene Glycol 17 GM QDAY 12/20 09 CKD PO Benztropine Mesylate 1 MG 0900,1700 12/19 1700 AC PO Docusate Sodium 100 MG 0900,1700 12/19 1700 AC PO Haloperidol 5 MG 0900,1700 12/19 1700 AC PO [place] Carbonate 450 MG PM 12/19 1700 AC [...] fullly ambulartory Care Level Complexity of Care [id number] Comprehensive history, comprehensive examination, medical decision making of low complexity, at least 20 minutes at the bedside, patient's floor/ unit. ESigned by: YAS GARZA MD Date:12/21/15 Time:1633 / NOT FOR REDISCLOSURE WITHOUT PATIENT'S INFORMED CONSENT Admission evaluation note * Roger TORRES, Elaine Alan: PERFORM, MODIFY, MODIFY, MODIFY, MODIFY, MODIFY Event Display: Admission Note Authored Date: [id number] Patient: ??LORETTA CELESTIN ? Age:??32 Years?Sex:??Female?:??1990?? Chief Complaint/Reason for Consultation COVID-positive History of Present Illness 32-year-old female with PMH of high affective disorder, intellectual disability, sequel of alcohol syndrome, obesity, constipation, iron deficiency anemia who initially presented to [facility] under section 12 in the setting of medication noncompliance despite community Lo order. ?? Patient's medical chart reviewed, seen and examined at bedside.?? Patient presented to [facility] from jail due to erratic behavior and mood lability, has been experiencing increased paranoia, fixed delusions and command hallucinations.?? She was admitted on inpatient psychiatric service and had received olanzapine IM due to agitation she was admitted to [facility] with restarting of her home medications, during the hospital course has an episode of trying to self-harm and screaming on staffrequiring medications.?? Patient has been progressively stabilizing and plan was made to discharge her back to the jail but patient turned out to be COVID-positive and so patient was discharged and admitted to the medicine service for further management.?? Patient by time of my evaluation, resting comfortably.?? Calm and sleeping.?? She appropriately answerd few questions by nodding.?? Denies having any cough, sore throat, runny nose.?? Did not answer any more questions.?? She remains afebrile, HR 86, RR 19, BP 138/92, saturation 100% on room air.?? Labs are pending.?? Urinalysis negativ e, COVID PCR positive.?? Patient will be admitted to inpatient medicine service for further management Review of Systems Not able to obtain due to patient's baseline mental status Objective ? Vital Signs?? Temperature: 97 DegF (07/05/23 02:00:00) Temperature Route: Oral (07/05/23 02:00:00) Respiratory Rate: 19 br/min (07/05/23 02:00:00) Systolic Blood Pressure: 138 mm Hg (07/05/23 02:00:00) Diastolic Blood Pressure:??92 mm Hg??High (07/05/23 02:00:00) Blood pressure sites: Arm, left (07/05/23 02:00:00) Oxygen Saturation: 100 % (07/05/23 02:00:00) Mode of Delivery (Oxygen): Room air (07/05/23 02:00:00) Early Warning Score: 0 (07/05/23 02:11:55) ? Pain Scores?? No qualifying data available. ? Intake/Output? No Data Available ?? Precautions No Precautions documented.? Physical Exam ??limited as patient not cooperative? HEENT- Normocephalic, Atraumatic, Neck-supple, no JVD Heart-S1S2(+),??regular, no murmurs. lungs- Clear, b/l air entry, no wheezing. Abdomen-soft,,nondistended,??bowel sounds present, No guarding. Extremities-pulses palpable. No pedal edema. No calf tenderness. Neurological- not able to assess. Psychiatric-patient???s mood is stable. Assessment/Plan 32-year-old female with PMH of high affective disorder, intellectual disability, sequel of alcohol syndrome, obesity, constipation, iron deficiency anemia who initially presented to [facility] under section 12 in the setting of medication noncompliance despite community Lo order. Patient's medical chart reviewed, seen and examined at bedside.?? Patient presented to [facility] from jail due to erratic behavior and mood lability, has been experiencing increased paranoia, fixed delusions and command hallucinations.?? She was admitted on inpatient psychiatric service and had received olanzapine IM due to agitation she was admitted to [facility] with restarting of her home medications, duringthe hospital course has an episode of trying to self-harm and screaming on staff requiring medications.?? Patient has been progressively stabilizing and plan was made to discharge her back to the jail but patient turned out to be COVID- positive and so patient was discharged and admitted to the medicine service for further management.?? Patient by time of my evaluation, resting comfortably.?? Calm and sleeping.?? She appropriately answerd few questions by nodding.?? Denies having any cough, sore throat, runny nose.?? Did not answer any more questions.?? She remains afebrile, HR 86, RR 19, BP 138/92, saturation 100% on room air.?? Labs are pending.?? Urinalysis negative, COVID PCR positive.?? Patient will be admitted to inpatient medicine service for further management ?? Seizure affective disorder Paranoid delusions Intellectual disability Vitals as per unit standards Patient currently wellness medical advice Psychiatric consult order placed We will continue with benztropine 1 mg twice daily Olanzapine 5 mg twice daily Olanzapine??5 mg 3 times daily as needed for agitation We will continue with lithium??300 mg twice daily Follow with lithium levels Trazodone 50 mg daily at bedtime for insomnia ?? COVID??infection Supplemental oxygen as needed, currently on room air Fluticasone nasal spray Closely monitor respiratory status Follow with labs If requiring oxygen consider imaging ? Code???full Diet???regular diet DVT prophylaxis???none, VTE guidelines ?? Patient seen and examined on 07/05/2023 Histories Allergies Allergies ?(Active and Proposed Allergies Only) Haldol? (Severity: Unknown severity, Onset: Unknown) Invega? (Severity: Unknown severity, Onset: Unknown) cloZAPine? (Severity: Unknown severity, Onset: Unknown) paliperidone? (Severity: Unknown severity, Onset: Unknown) Flagyl? (Severity: Unknown severity, Onset: Unknown) ?Reactions: Paliperidone ? Past Medical History/Problem List Active Problems??(25) Allergic rhinitis Chronic constipation Chronic GERD Chronic post-traumatic stress disorder Cigarette nicotine dependence COVID-19 Depression Environmental allergies alcohol syndrome Foster Care (Status) Frequent falls History of suicidal ideation w/ suicide attempt Hypernatremia Hyperprolactinemia Iron deficiency anemia Last pap smear 08/31/19 negative Obesity Oligomenorrhea Paranoid delusion Personality disorder Poor historian Psychosis Schizoaffective schizophrenia Severe obesity (BMI 35.0-39.9) with comorbidity Weight gain with seroquel in the past ? Past Surgical History No surgery history documented. ? Social History Alcohol Details:??Use: Never. Details:??Use: Never. Exercise Details:??Self assessment: Fair condition. Home/Environment Details:??Living situation: jail . Nutrition/Health Details:??Diet: Regular. Sexual Details:??Sexually involved in last 6 months: No. ??Gender identity: Identifies as female. Details:??Sexually involved in last 6 months: No. ??Gender identity: Identifies as female. ??Self described orientation: Bisexual. ??Preferred pronoun: She/her. Substance Abuse Details:??Use: Past. Tobacco Details:??Use: Never (less than 100 in lifetime). ??Interested in cessation: No. ??No Details:??Use: 4 or less cigarettes(less than 1/4 pack)/day in last 30 days. Details:??Light tobacco smoker Electronic Cigarette/Vaping Details:??Electronic Cigarette Use: Never. ? Family History Mother: Alcoholism ? Medications Home Medications Acetaminophen (acetaminophen 325 mg oral tablet)?650?Milligram?By Mouth?Every 6 hours?as needed?/Headache?Pain , Mild Al Hydroxide/Mg Hydroxide/Simethicone (Maalox Plus Liquid)?30?Milliliter?By Mouth?Every4 hours?as needed?Dyspepsia Benztropine (benztropine 1 mg oral tablet)?1?Milligram?By Mouth?2 times a day Calcium Carbonate (Tums 500 mg oral tablet, chewable)?500?Milligram?1?tablet?Chew?Every 4 hours?as needed?Dyspepsia Cetirizine (cetirizine 10 mg oral tablet)?10?Milligram?By Mouth?Daily Ferrous Sulfate (ferrous sulfate 325 mg oral enteric coated tablet)?325?Milligram?By Mouth?Every other day Fluticasone Nasal (fluticasone 50 mcg/inh nasal spray)?1?spray(s)?50?Microgram?Nares, Both?2 times a day?as needed?Other?nasal allergy symptoms Lactulose (lactulose 10 gm/15 ml oral syrup)?30?Milliliter?20?gram?By Mouth?3 times a day?as needed?Constipation [place] (lithium 300 mg oral tablet)?300?Milligram?By Mouth?2 times a day Milk of Magnesia (Milk of Magnesia Liquid)?30?Milliliter?By Mouth?Every 4 hours?as needed?Constipation Olanzapine (olanzapine 2.5 mg oral tablet)?5?Milligram?By Mouth?2 times a day Olanzapine (olanzapine 5 mg oral tablet)?5?Milligram?By Mouth?3 times a day?as needed?Agitation Olanzapine (Olanzapine Inj)?5?Milligram?Intramuscular?2 times a day?as needed?Other Polyethylene Glycol 3350 (MiraLax Powder)?1?pack/packet?17?gram?By Mouth?Daily Trazodone (traZODone 50 mg oral tablet)?50?Milligram?By Mouth?Daily at bedtime?as needed?Sleep ? Inpatient Medications Medications (20) Active SCHEDULED: (6) Benztropine 1 mg Tablet (benztropine 1 mg oral tablet) ??1 mg, By Mouth, 2 times a day Cetirizine 5 mg Tablet (cetirizine 5 mg oral tablet) ??10 mg, By Mouth, Daily Ferrous Sulfate 325 mg EC Tablet (ferrous sulfate 325 mg oral enteric coated tablet) ??325 mg, By Mouth, Every other day [place] 300 mg Tablet (LITHium Tablet) ??300 mg, By Mouth, 2 times a day NaCl 0.9% Flush 3ml (NaCL 0.9% Flush) ??3 mL, IV Push, Every 8 hours Olanzapine 5 mg Tablet (olanzapine 2.5 mg oral tablet) ??5 mg, By Mouth, 2 times a day CONTINUOUS: (0) PRN: (14) Acetaminophen 325 mg Tablet (Acetaminophen Tablet) ??650 mg, By Mouth, Every 4 hours Al hydroxide/Mg hydroxide/simethicone 200 mg-200 mg-20 mg/5 mL Susp UD (Maalox Plus Liquid) ??30 mL, By Mouth, Every 4 hours Calcium Carbonate 500 mg (Calcium 200 mg) Chewable Tablet (Tums 500 mg oral tablet, chewable) ??500mg 1 tablet, Chew, Every 4 hours Docusate Sodium 100 mg Capsule (Docusate Sodium Capsule) ??100 mg 1 capsule, By Mouth, 2 times a day Fluticasone Propionate 50mcg/inh Nasal [place] (fluticasone 50 mcg/inh nasal spray) ??50 mcg 1 sprays, Nares, Both, 2 times a day Lactulose 20 Gm/30mL Syrup (lactulose 10 gm/15 ml oral syrup) ??20 Gm 30 mL, By Mouth, 3 times a day Magnesium Hydroxide 8% Susp UD (Milk of Magnesia Liquid) ??30 mL, By Mouth, Every 4 hours Melatonin 3 mg Tablet (Melatonin Tablet) ??3 mg, By Mouth, Daily at bedtime NaCl 0.9% Flush 3ml (NaCL 0.9% Flush) ??3 mL, IV Push, Every 8 hours Olanzapine 10 mg Inj (Olanzapine Inj) ??5 mg, Intramuscular, 2 times a day Olanzapine 5 mg Tablet (olanzapine 5 mg oral tablet) ??5 mg, By Mouth, 3 times a day Polyethylene Glycol 17 Gm Powder (MiraLax Powder) ??17 Gm 1 pack/packet, By Mouth, Daily Senna Tablet ??8.6 mg 1 tablet, By Mouth, 2 times a day Trazodone 50 mg Tablet (traZODone 50 mg oral tablet) ??50 mg, By Mouth, Daily at bedtime ? Results Recent Labs VIROLOGY COVID-19 by RT-PCR POSITIVE (Abnormal)?? 07/04/2023 22:15 ? Urinalysis?? No qualifying data available. ? * Event Display: Admit Notes Authored Date: [place], [place] PSYCHIATRIC ADMISSION NOTE NAME: LORETTA CELESTIN : 89 HOSPITAL #: [id number] MR #: [id number] CHART LOC: PCP: DICTATING: MARIA R Robin MD DATE OF ADMISSION: 12/20/15 DATE OF SERVICE: 12/21/15 CHIEF COMPLAINT: This 23-year-old woman was admitted to [facility] on 12/20/15 on a Conditional Voluntary application because of suicidal ideation. HISTORY OF PRESENT ILLNESS: The patient has been treated for schizoaffective disorder depressed type, posttraumatic stress disorder, intellectual disability and alcohol syndrome with multiple hospitalizations for self-harming behavior and suicidal ideation. She presented to Crisis Services from her jail reporting that she was having urges to [...] how they had evolved. Staff at the jail where she lives reported her as unusually [...] HISTORY: The patient is living in a jail. Came to [place] with her grandmother in 2013, was very [...] year NAME: LORETTA CELESTIN : 89 HOSP#: [id number] MR#: [id number] CHART LOC: PCP: DICTATING: MARIA R Robin MD PSYCHIATRIC ADMISSION NOTE CONTINUED: unknown. TREATMENT PLAN: Resume outpatient medications, physical exam, collateral contact with community caregivers and social network, safety plan, aftercare plan and observe. 927 T:sn DD:[id number] TD:[id number] DT:[id number] TT:0924 [id number] MICHELLE/SHANNON MARIA R Robin MD ESigned by: Date:12/22/15 Time:642 NOT FOR REDISCLOSURE WITHOUT PATIENT'S INFORMED CONSENT Hospital Progress note * Beatriz Silvestre RN: PERFORM, SIGN, VERIFY Event Display: Progress Note Hospital Authored Date: [id number] Patient: LORETTA CELESTIN Age: 32 years Sex: Female : 1990 Associated Diagnoses: None Author: Beatriz Silvestre RN Findings Problem Related to Alteration in Respiratory Function (new) : Alteration in Respiratory Function/new 07/07/2023 16:00 EDT Alteration in Resp Status Related to COVID - 19 Goals & Outcomes, Respiratory Pt will maintain/resume baseline physical assessment, Pt will notdevelop complications r/t mechanical ventilation, Pt will maintain adequate nutritional intake, Pt will maintain/resume normal fluid/electrolyte balance, Pt will not develop complications r/t immobility, Pt will demonstrate proper technique w/self care procedures Interventions, Respiratory Assess/monitor tolerance to IV infusions; verify rate/dose, Assess for and report S&S of respiratory distress, Teach/encourage use of incentive spirometer, Teach Pt/caregiver Smoking cessation education, Teach purse lip breathing as needed for breathing retraining, Resolved problem, Interventions no longer in effect BH Goals/Interventions, Respiratory Yes Respiratory, Problem Start 07/06/2023 0:36 Reviewed Plan with, Respiratory Patient Patient Progression, Respiratory Patient progressing according to plan . Nursing Data Vital Signs : VITAL SIGNS SECTION 07/08/2023 0:00 EDT Temperature 98.8 DegF Temperature Route Oral Pulse Rate 83 bpm Respiratory Rate 16 br/min Systolic Blood Pressure 126 mm Hg Diastolic Blood Pressure 78 mm Hg Blood pressure sites Arm, left Pulse Pressure 48 mm Hg Oxygen Saturation 100 % Mode of Delivery (Oxygen) Room air . Narrative/Incidental Pt A+O x 3. no c/o pain. Lung sounds clear. Pt ambulates independently in room. Continent of bladder and bowel. Pt slept most of the night. Call simmons in reach.. Discharge Information Case Management Discharge Plan : Case Management Discharge Plan Data 07/07/2023 17:14 EDT Discharge Level of Care at Discharge Not Done: order d/c (Not Done) 07/05/2023 2:15 EDT Discharge Level of Care at Discharge Short-term Acute Inpatient * Emma Kaminski RN: PERFORM, SIGN, VERIFY Event Display: Progress Note Hospital Authored Date: Patient: LORETTA CELESTIN Age: 32 years Sex: Female : 1990 Associated Diagnoses: None Author: Emma Kaminski RN Findings Problem Related to Alteration in Respiratory Function (new) : Alteration in Respiratory Function/new 07/07/2023 16:00 EDT Alteration in Resp Status Related to COVID - 19 Goals & Outcomes, Respiratory Pt will maintain/resume baseline physical assessment, Pt will notdevelop complications r/t mechanical ventilation, Pt will maintain adequate nutritional intake, Pt will maintain/resume normal fluid/electrolyte balance, Pt will not develop complications r/t immobility, Pt will demonstrate proper technique w/self care procedures Interventions, Respiratory Assess/monitor tolerance to IV infusions; verify rate/dose, Assess for and report S&S of respiratory distress, Teach/encourage use of incentive spirometer, Teach Pt/caregiver Smoking cessation education, Teach purse lip breathing as needed for breathing retraining, Resolved problem, Interventions no longer in effect BH Goals/Interventions, Respiratory Yes Respiratory, Problem Start 07/06/2023 0:36 Reviewed Plan with, Respiratory Patient Patient Progression, Respiratory Patient progressing according to plan . Nursing Data Vital Signs : VITAL SIGNS SECTION 07/07/2023 12:36 EDT Temperature 98.8 DegF Temperature Route Oral Pulse Rate 81 bpm Respiratory Rate 18 br/min Systolic Blood Pressure 143 mm Hg H Diastolic Blood Pressure 88 mm Hg H Blood pressure sites Arm, right Mean Arterial Pressure 106 mm Hg Pulse Pressure 55 mm Hg Oxygen Saturation 100 % Mode of Delivery (Oxygen) Room air . Evaluation Pt A+O x4, denies pain. Continues on Covid enhanced precautions. ate and drank adequately, ambulateindependently in room, continent of bowel and bladder. Frequent rounding provided, bed in low position, call simmons in reach. Discharge Information Case Management Discharge Plan : Case Management Discharge Plan Data 07/05/2023 2:15 EDT Discharge Level of Care at Discharge Short-term Acute Inpatient * Beatriz Silvestre RN: PERFORM, SIGN, VERIFY Event Display: Progress Note Hospital Authored Date: [id number] Patient: LORETTA CELESTIN Age: 32 years Sex: Female : 1990 Associated Diagnoses: None Author: Beatriz Silvestre RN Findings Problem Related to Alteration in Respiratory Function (new) : Alteration in Respiratory Function/new 07/06/2023 23:00 EDT Alteration in Resp Status Related to COVID - 19 Goals & Outcomes, Respiratory Pt will maintain/resume baseline physical assessment, Pt will notdevelop complications r/t mechanical ventilation, Pt will maintain adequate nutritional intake, Pt will maintain/resume normal fluid/electrolyte balance, Pt will not develop complications r/t immobility, Pt will demonstrate proper technique w/self care procedures Interventions, Respiratory Assess for and report S&S of respiratory distress, Position for comfort & optimal oxygenation Goals/Interventions, Respiratory Yes Respiratory, Problem Start 07/06/2023 0:36 Reviewed Plan with, Respiratory Patient Patient Progression, Respiratory Patient progressing according to plan . Nursing Data Vital Signs : VITAL SIGNS SECTION 07/06/2023 23:00 EDT Temperature 99.4 DegF Temperature Route Oral Pulse Rate 86 bpm Respiratory Rate 16 br/min Systolic Blood Pressure 145 mm Hg H Diastolic Blood Pressure 97 mm Hg H Blood pressure sites Arm, right Pulse Pressure 48 mm Hg Oxygen Saturation 100 % Mode of Delivery (Oxygen) Room air . Narrative/Incidental Pt A+O x 3. no c/o pain. Lung sounds clear, R/A. Pt ambulates in room to bathroom independently. Pttook scheduled meds. Pt awake most of the night. Call simmons in reach. Enhanced respiratory precautions maintained.. Discharge Information Case Management Discharge Plan : Case Management Discharge Plan Data 07/05/2023 2:15 EDT Discharge Level of Care at Discharge Short-term Acute Inpatient Consult note * Jenny TORRES, Hesham Tarango: PERFORM Hesham Alvarado MD: PERFORM, MODIFY Hesham Alvarado MD: MODIFY, MODIFY, MODIFY Khang Burnett: MODIFY Event Display: Consultation Note Authored Date: Patient: ??LORETTA CELESTIN ? Age:??32 Years?Sex:??Female?:??1990?? Chief Complaint/Reason for Consultation Recent [facility] admission for decompensated schizoaffective disorder, now on medical unit due to testing positive for COVID History of Present Illness Referring Provider:??Nova Barry NP Consulting psychiatrist:??Hesham Alvarado MD Sources of information:??[facility], patient, nursing staff ?? Identifying information:? Per crisis initial assessment on 06/23: Loretta Celestin is a 32 year old female with history of schizoaffective disorder, intellectual disability, sequelae of alcohol syndrome, obesity, constipation, and iron deficiency anemia, who presented to [facility] early this morning on Section 12 in the setting of medication non-a dherence despite a Community Abraham's order. Per chart review she was assessed by [facility] twice overnight at the jail due to erratic behavior and mood lability. She has reportedly been experiencing increased paranoia, fixed delusion, and command hallucinations in the form of men telling herwhat to do. Loretta has a legal guardian and is in a jail through [facility]. Loretta was administeredOlanzapine 7.5 mg IM this morning due to agitation. There were no reported physical health concernsin the ED and she was medically cleared. Loretta reportedly had vague HI toward all men while in the ED, and??she was noted to be responding to internal stimuli. Of note, Loretta was [facility]23 and discharged on a [id number], and had an uneventful admission after restarting her home medications. Per chart review, patient's linen room houseperson Princess reported that since she left [facility] on 06/16, there was an instance of self harm when she cut herself with a sharp object. She has also been screaming and staff has had challenges re-directing her. Loretta has been medication non-adherent for 3 days despite her Emir's order, leading jail staff to engage Crisis. On admission interview this evening, upon introducing myself, Loretta shouted, Good bye! When asked why she was here, she stated, I don't care . She forcefully denied SI, HI, or recent substance use. She then declined to answer further questions and the interview was terminated. ?? Patient was admitted to [facility] for management of decompensated schizoaffective disorder. She had received olanzapine IM due to agitation, and was restarted on her home medications.??Patient has been progressively stabilizing (organized, appropriate behavior, and consistently denied SI, HI, or AVH) and plan was made to discharge her back to the jail on 07/05,??but she was??COVID-positive on 07/04,??so patient was admitted to the medicine service for further management.??On initial evaluation by medicine team, patient was calm and sleeping.??She appropriately answered few questions by nodding.??Denies having any cough, sore throat, runny nose.??Did not answer any more questions.??She was afebrile, HR 86, RR 19, BP 138/92, saturation 100% on room air. Urinalysis negative, COVID PCR positive.??Patient??was admitted to inpatient medicine service for further management.??Psychiatry was consulted to assist with management of schizoaffective disorder. ?? On interview, patient denied any acute complaints. She reports she is doing okay since being transferred from [facility] and believes the medications are helping. She denies auditory or visual hallucinations, and denies suicidal/homicidal ideation. She reports sleeping well during the night and endorses a strong appetite, asking when she could have lunch. She asked if she could have her phone psychiatry instructor, so that she may charge her phone to??go on [employer] and listen to music. ?? Past Psychiatric History?? Previous diagnoses: Schizoaffective disorder PTSD, chronic Intellectual Disability Sequelae of Alcohol Syndrome Past hospitalizations: [facility] 06/23/23 - 07/05/23 [facility] 06/13/23 - 06/16/23 [facility] 09/09/2022 - 09/15/2022 [facility] 12/19/2019 - 01/02/2020 Numerous psychiatric hospitalizations including extended stay at [facility], per chart review. Medication trials:?? - olanzapine 5 mg PO twice daily (current) - [place] CR (current regimen of 300mg BID, previously up to 450 mg BID) - benztropine 1 mg BID (current) - perphenazine (discontinued during [facility] admission 06/23/23-07/05/23) - Seroquel, paliperidone, clozapine, Ativan per chart review - No history of ECT treatments. Past outpatient providers: Medication provider - Caio Strickland, FUSION ANALYST Therapist - Corey Rhoades Past suicide attempts: Per chart review, remote history of suicide attempt via overdose ( Epsom salts and medications ) and remote history of NSSIB via cutting. History of posturing and attempt to assault staff. ?? Family Psychiatric History Mother - alcohol use disorder? Social History?? 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 Living situation:??Has lived in the same jail for the past five or six years. Family: She has one sister and one brother. She is single with no children Education: Previous records indicated that??Loretta attempted to obtain her GED/HiSET and was unsuccessful. Employment: unemployed; worked at [employer] in the past Legal: Previous assessments and records indicate that Loretta was charged with shoplifting at some point in her life. Access to weapons: no access to firearms ?? Substance Use History?? Denies use of alcohol, tobacco, marijuana, caffeine, cocaine, heroin, benzodiazepines, psychedelics ? Psychiatric Review of Systems Depression: denies symptoms of depression, including depressed mood, anhedonia, sleep, guiltiness/worthlessness, low energy, trouble concentrating, loss of/ excessive appetite, psychomotor retardation/ agitation, SI. ?? Stephany: denies symptoms of stephany, including elated mood, high energy with little to no sleep for consecutive days, racing thoughts, impulsivity. ?? Psychosis: denies symptoms of psychosis, including auditory or visual hallucinations, disorganized thoughts, dissociation from reality. ?? Anxiety: denies increased anxiety, racing thoughts, panic attacks Review of Systems Medical ROS:??A full ROS was completed and was negative with the exception of pertinent positives noted in the history of the presenting illness?? Objective Vital Signs?? Temperature: 97.8 DegF (07/05/23 08:20:00) Temperature Route: Oral (07/05/23 08:20:00) Pulse Rate: 69 bpm (07/05/23 08:20:00) Respiratory Rate: 16 br/min (07/05/23 08:20:00) Systolic Blood Pressure: 129 mm Hg (07/05/23 08:20:00) Diastolic Blood Pressure: 83 mm Hg (07/05/23 08:20:00) Blood pressure sites: Arm, left (07/05/23 08:20:00) Mean Arterial Pressure: 98 mm Hg (07/05/23 08:20:00) Pulse Pressure: 46 mm Hg (07/05/23 08:20:00) Oxygen Saturation: 100 % (07/05/23 08:20:00) Mode of Delivery (Oxygen): Room air (07/05/23 08:20:00) Early Warning Score: 2 (07/05/23 09:14:54) ? Physical Exam Mental Status Exam Appearance: This is a female dressed in hospital gown,??NAD, appears younger than stated age, sitting in bed watching TV Eye contact: minimal Attitude: cooperative with pleasant demeanor?? Motor Activity:??bilateral hand tremors and jaw tremors at rest, no psychomotor agitation or??slowing Mood: okay Affect: congruent, reactive, appropriate Speech: normal rate, tone and prosody?? Perception: No delusions, AVH, or paranoia; not appearing to respond to internal stimuli Orientation: intact ? Memory: grossly intact Thought Process: Linear and goal directed Thought Content: no SI/HI, no abnormal thought content elicited Insight: poor Judgment:??poor ?? MSK Exam:??able to move all 4 extremities spontaneously. No rigidity noted.?? Assessment/Plan ?? Assessment:? Loretta Celestin is a 32 year old female with a history of schizoaffective disorder, intellectual disability, sequelae of alcohol syndrome, obesity, constipation, and iron deficiency anemia, who presented to [facility] via EMS??on Section 12 on 06/23 due to increasingly agitated and paranoid behavior in the setting of medication non-adherence.??On admission, patient was evasive andhostile, although denied SI, HI, AVH, or recent substance use. Per chart review, she has not taken her medications at her jail for at least three days despite having a Community Emir's.??Medications were restarted in the ED. She??was admitted to [facility] inpatient psychiatry??for safety, stabili zation, and medication review. On [facility], patient progressively stabilized (organized, appropriate behavior, and consistently denied SI, HI, or AVH) and plan was made to discharge her back to the [facility] on 07/05??but she was??COVID-positive on 07/04,??so patient was discharged and admitted to the [facility] service for further management.??On initial evaluation by medical team, patient was calm and sleeping.?? She appropriately answered few questions by nodding.??Denies having any cough, sore throat, runny nose.??Did not answer any more questions.??She was afebrile, HR 86, RR 19, BP 138/92, saturation 100% on room air. Urinalysis negative, COVID PCR positive.??Patient??was admitted to inpatient medicine service for further management.??Psychiatry was consulted to assist with management of schizoaffective disorder. ?? On assessment today, patient is pleasant, calm and cooperative. She continues to deny auditory or visual hallucination, does not endorse paranoia or delusions, and denies suicidal or homicidal ideation. Patient's??recent decompensation of her established??schizoaffective disorder has been stabilized by resuming her home medication regimen and making adjustments to??her regimen??during her [facility]mission. At this time, she does not require a 1:1 sitter. We recommend continuing the medication regimen that she was discharged on from [facility]. From a psychiatry standpoint, the patient is cleared for discharge. We will defer discharge to the medicine team and the COVID protocols followed by the patient's jail. ? DSM-V Diagnoses: Schizoaffective Disorder PTSD, chronic Intellectual Disability Sequelae of Alcohol Syndrome ?? Recommendations: -??Cleared for discharge from a psychiatry standpoint -??Discontinue 1:1 sitter -??Continue current medication regimen established at time of [facility] discharge : ? - olanzapine 5 mg BID,?- lithium 300 mg BID,?- benztropine 1 mg BID,?- olanzapine 5 mg PO TID PRN agitation, ? - ??trazodone 50 mg QHS PRN insomnia ? Thank you for allowing us to participate in this patient's care. Please feel free to contact the Psychiatry consult service (call [phone] or page [phone]) with any questions or concerns.? Case and plan discussed with attending psychiatrist, Dr. Hesham Alvarado Recommendations??communicated via [employer] to Dr. Raven Camarillo MD, and Dr. Carla Walter MD ?? Khang Burnett MS4 ?Hesham Alvarado MD Attending, Psychiatry Consultation Service [facility] ?? 80 min spent reviewing chart, speaking with primary team, obtaining the HPI, examining patient, assessing safety,??and counseling the patient on??schizoaffective disorder??and treatment options.?? Histories Allergies Allergies ?(Active and Proposed Allergies Only) Haldol? (Severity: Unknown severity, Onset: Unknown) Invega? (Severity: Unknown severity, Onset: Unknown) cloZAPine? (Severity: Unknown severity, Onset: Unknown) paliperidone? (Severity: Unknown severity, Onset: Unknown) Flagyl? (Severity: Unknown severity, Onset: Unknown) ?Reactions: Paliperidone ? Past Medical History/Problem List Active Problems??(25) Allergic rhinitis Chronic constipation Chronic GERD Chronic post-traumatic stress disorder Cigarette nicotine dependence COVID-19 Depression Environmental allergies alcohol syndrome Foster Care (Status) Frequent falls History of suicidal ideation w/ suicide attempt Hypernatremia Hyperprolactinemia Iron deficiency anemia Last pap smear 08/31/19 negative Obesity Oligomenorrhea Paranoid delusion Personality disorder Poor historian Psychosis Schizoaffective schizophrenia Severe obesity (BMI 35.0-39.9) with comorbidity Weight gain with seroquel in the past ? Past Surgical History No surgery history documented. ? Social History Alcohol Details:??Use: Never. Details:??Use: Never. Exercise Details:??Self assessment: Fair condition. Home/Environment Details:??Living situation: jail . Nutrition/Health Details:??Diet: Regular. Sexual Details:??Sexually involved in last 6 months: No. ??Gender identity: Identifies as female. Details:??Sexually involved in last 6 months: No. ??Gender identity: Identifies as female. ??Self described orientation: Bisexual. ??Preferred pronoun: She/her. Substance Abuse Details:??Use: Past. Tobacco Details:??Use: Never (less than 100 in lifetime). ??Interested in cessation: No. ??No Details:??Use: 4 or less cigarettes(less than 1/4 pack)/day in last 30 days. Details:??Light tobacco smoker Electronic Cigarette/Vaping Details:??Electronic Cigarette Use: Never. ? Psychosocial History ? Family History Mother: Alcoholism ? Medications Home Medications Acetaminophen (acetaminophen 325 mg oral tablet)?650?Milligram?By Mouth?Every 6 hours?as needed?/Headache?Pain , Mild Al Hydroxide/Mg Hydroxide/Simethicone (Maalox Plus Liquid)?30?Milliliter?By Mouth?Every4 hours?as needed?Dyspepsia Benztropine (benztropine 1 mg oral tablet)?1?Milligram?By Mouth?2 times a day Calcium Carbonate (Tums 500 mg oral tablet, chewable)?500?Milligram?1?tablet?Chew?Every 4 hours?as needed?Dyspepsia Cetirizine (cetirizine 10 mg oral tablet)?10?Milligram?By Mouth?Daily Ferrous Sulfate (ferrous sulfate 325 mg oral enteric coated tablet)?325?Milligram?By Mouth?Every other day Fluticasone Nasal (fluticasone 50 mcg/inh nasal spray)?1?spray(s)?50?Microgram?Nares, Both?2 times a day?as needed?Other?nasal allergy symptoms Lactulose (lactulose 10 gm/15 ml oral syrup)?30?Milliliter?20?gram?By Mouth?3 times a day?as needed?Constipation [place] (lithium 300 mg oral tablet)?300?Milligram?By Mouth?2 times a day Milk of Magnesia (Milk of Magnesia Liquid)?30?Milliliter?By Mouth?Every 4 hours?as needed?Constipation Olanzapine (olanzapine 2.5 mg oral tablet)?5?Milligram?By Mouth?2 times a day Olanzapine (olanzapine 5 mg oral tablet)?5?Milligram?By Mouth?3 times a day?as needed?Agitation Olanzapine (Olanzapine Inj)?5?Milligram?Intramuscular?2 times a day?as needed?Other Polyethylene Glycol 3350 (MiraLax Powder)?1?pack/packet?17?gram?By Mouth?Daily Trazodone (traZODone 50 mg oral tablet)?50?Milligram?By Mouth?Daily at bedtime?as needed?Sleep ? Inpatient Medications Medications (20) Active SCHEDULED: (6) Benztropine 1 mg Tablet (benztropine 1 mg oral tablet) ??1 mg, By Mouth, 2 times a day Cetirizine 5 mg Tablet (cetirizine 5 mg oral tablet) ??10 mg, By Mouth, Daily Ferrous Sulfate 325 mg EC Tablet (ferrous sulfate 325 mg oral enteric coated tablet) ??325 mg, By Mouth, Every other day [place] 300 mg Tablet (LITHium Tablet) ??300 mg, By Mouth, 2 times a day NaCl 0.9% Flush 3ml (NaCL 0.9% Flush) ??3 mL, IV Push, Every 8 hours Olanzapine 5 mg Tablet (olanzapine 5 mg oral tablet) ??5 mg, By Mouth, 2 times a day CONTINUOUS: (0) PRN: (14) Acetaminophen 325 mg Tablet (Acetaminophen Tablet) ??650 mg, By Mouth, Every 4 hours Al hydroxide/Mg hydroxide/simethicone 200 mg-200 mg-20 mg/5 mL Susp UD (Maalox Plus Liquid) ??30 mL, By Mouth, Every 4 hours Calcium Carbonate 500 mg (Calcium 200 mg) Chewable Tablet (Tums 500 mg oral tablet, chewable) ??500mg 1 tablet, Chew, Every 4 hours Docusate Sodium 100 mg Capsule (Docusate Sodium Capsule) ??100 mg 1 capsule, By Mouth, 2 times a day Fluticasone Propionate 50mcg/inh Nasal [place] (fluticasone 50 mcg/inh nasal spray) ??50 mcg 1 sprays, Nares, Both, 2 times a day Lactulose 20 Gm/30mL Syrup (lactulose 10 gm/15 ml oral syrup) ??20 Gm 30 mL, By Mouth, 3 times a day Magnesium Hydroxide 8% Susp UD (Milk of Magnesia Liquid) ??30 mL, By Mouth, Every 4 hours Melatonin 3 mg Tablet (Melatonin Tablet) ??3 mg, By Mouth, Daily at bedtime NaCl 0.9% Flush 3ml (NaCL 0.9% Flush) ??3 mL, IV Push, Every 8 hours Olanzapine 10 mg Inj (Olanzapine Inj) ??5 mg, Intramuscular, 2 times a day Olanzapine 5 mg Tablet (olanzapine 5 mg oral tablet) ??5 mg, By Mouth, 3 times a day Polyethylene Glycol 17 Gm Powder (MiraLax Powder) ??17 Gm 1 pack/packet, By Mouth, Daily Senna Tablet ??8.6 mg 1 tablet, By Mouth, 2 times a day Trazodone 50 mg Tablet (traZODone 50 mg oral tablet) ??50 mg, By Mouth, Daily at bedtime ? Results Recent Labs BLOOD COUNT & DIFF WBC 6.3 k/mm3 ()?? 07/05/2023 06:24 RBC 3.94 m/mm3 (Low)?? 07/05/2023 06:24 Hgb 9.8 Gm/dL (Low)?? 07/05/2023 06:24 Hct 32.8 % (Low)?? 07/05/2023 06:24 MCV 83.2 femtoliters ()?? 07/05/2023 06:24 MCH 24.9 pg (Low)?? 07/05/2023 06:24 MCHC 29.9 g/dL (Low)?? 07/05/2023 06:24 Platelet Count 218 k/mm3 ()?? 07/05/2023 06:24 RDW-SD 46.8 femtoliters ()?? 07/05/2023 06:24 MPV 11.5 femtoliters ()?? 07/05/2023 06:24 Nucleated RBC (Automated) 0.0 #/100 WBC'S ()?? 07/05/2023 06:24 Abs. NRBC 0.0 k/mm3 ()?? 07/05/2023 06:24 Abs. Neut 2.8 k/mm3 ()?? 07/05/2023 06:24 Abs. Lymph 2.6 k/mm3 ()?? 07/05/2023 06:24 Abs. [place] 0.6 k/mm3 ()?? 07/05/2023 06:24 Abs. Eo 0.3 k/mm3 ()?? 07/05/2023 06:24 Abs. Baso 0.0 k/mm3 ()?? 07/05/2023 06:24 Neut % 44.5 % ()?? 07/05/2023 06:24 Lymph % 40.9 % ()?? 07/05/2023 06:24 Haakon % 8.8 % ()?? 07/05/2023 06:24 Eos % 4.7 % ()?? 07/05/2023 06:24 Baso % 0.6 % ()?? 07/05/2023 06:24 Imm Gran 0.5 % ()?? 07/05/2023 06:24 Abs. Imm Gran 0.0 k/mm3 ()?? 07/05/2023 06:24 ?? CARDIAC CK, Total 54 units/L ()?? 07/05/2023 06:24 ?? CHEM GENERAL Sodium 143 mmol/L ()?? 07/05/2023 08:28 Potassium 4.1 mmol/L ()?? 07/05/2023 08:28 Chloride 111 mmol/L (High)?? 07/05/2023 08:28 Bicarbonate Level 24 mmol/L ()?? 07/05/2023 08:28 Anion Gap 8 ()?? 07/05/2023 08:28 Glucose Level 87 mg/dL ()?? 07/05/2023 08:28 BUN 8 mg/dL ()?? 07/05/2023 08:28 Creatinine-Blood 0.8 mg/dL ()?? 07/05/2023 08:28 Estimated GFR Creatinine 96 ML/MIN/1.73 M2 ()?? 07/05/2023 08:28 Calcium 9.1 mg/dL ()?? 07/05/2023 08:28 Phosphorus 3.5 mg/dL ()?? 07/05/2023 06:24 Magnesium 2.1 mg/dL ()?? 07/05/2023 06:24 Lactate 0.9 mmol/L ()?? 07/05/2023 06:24 ?? TOXICOLOGY/TDM [place] Level 0.5 mmol/L (Low)?? 07/05/2023 06:24 ?? VIROLOGY COVID-19 by RT-PCR POSITIVE (Abnormal)?? 07/04/2023 22:15 ? Abnormal Labs ?? BLOOD COUNT & DIFF ??Abs. Imm Gran ??0.0 k/mm3 () ??07/05/2023 06:24 ??Abs. NRBC ??0.0 k/mm3 () ??07/05/2023 06:24 ??Hct ??32.8 % (Low) ??07/05/2023 06:24 ??Hgb ??9.8 Gm/dL (Low) ??07/05/2023 06:24 ??Imm Gran ??0.5 % () ??07/05/2023 06:24 ??MCH ??24.9 pg (Low) ??07/05/2023 06:24 ??MCHC ??29.9 g/dL (Low) ??07/05/2023 06:24 ??Nucleated RBC (Automated) ??0.0 #/100 WBC'S () ??07/05/2023 06:24 ??RBC ??3.94 m/mm3 (Low) ??07/05/2023 06:24 ??RDW-SD ??46.8 femtoliters () ??07/05/2023 06:24 ? CHEM GENERAL ??Chloride ??111 mmol/L (High) ??07/05/2023 08:28 ??Estimated GFR Creatinine ??96 ML/MIN/1.73 M2 () ??07/05/2023 08:28 ? TOXICOLOGY/TDM ??[place] Level ??0.5 mmol/L (Low) ??07/05/2023 06:24 ? Note: Critical results are displayed in red. ? Note * Raven Camarillo MD: PERFORM Event Display: Discharge/Transfer Note Hospital Authored Date: [id number] Patient: ??LORETTA CELESTIN ? Age:??32 Years?Sex:??Female?:??1990?? Patient Information Discharge Location: [facility] Primary Care Physician: Fatoumata Stokes DO Admit Date/Time: 07/05/23 02:15 Discharge Disposition Discharge Disposition: Home: No Services Discharge Diagnosis COVID-19 Chronic post-traumatic stress disorder Cigarette nicotine dependence Schizoaffective disorder ?? _ Discharge Medications Acetaminophen (acetaminophen 325 mg oral tablet)?650?Milligram?By Mouth?Every 6 hours?as needed?/Headache?Pain , Mild Al Hydroxide/Mg Hydroxide/Simethicone (Maalox Plus Liquid)?30?Milliliter?By Mouth?Every4 hours?as needed?Dyspepsia Benztropine (benztropine 1 mg oral tablet)?1?Milligram?By Mouth?2 times a day?for 30?Days Calcium Carbonate (Tums 500 mg oral tablet, chewable)?500?Milligram?1?tablet?Chew?Every 4 hours?as needed?Dyspepsia Cetirizine (cetirizine 10 mg oral tablet)?10?Milligram?By Mouth?Daily Ferrous Sulfate (ferrous sulfate 325 mg oral enteric coated tablet)?325?Milligram?By Mouth?Every other day Fluticasone Nasal (fluticasone 50 mcg/inh nasal spray)?1?spray(s)?50?Microgram?Nares, Both?2 times a day?as needed?Other?nasal allergy symptoms Lactulose (lactulose 10 gm/15 ml oral syrup)?30?Milliliter?20?gram?By Mouth?3 times a day?as needed?Constipation [place] (lithium 300 mg oral tablet)?300?Milligram?By Mouth?2 times a day?for 30?Days Milk of Magnesia (Milk of Magnesia Liquid)?30?Milliliter?By Mouth?Every 4 hours?as needed?Constipation Olanzapine (olanzapine 5 mg oral tablet)?5?Milligram?By Mouth?3 times a day?as needed?for 30?Days?Agitation Olanzapine (olanzapine 2.5 mg oral tablet)?5?Milligram?By Mouth?2 times a day?for 30?Days Polyethylene Glycol 3350 (MiraLax Powder)?1?pack/packet?17?gram?By Mouth?Daily Trazodone (traZODone 50 mg oral tablet)?50?Milligram?By Mouth?Daily at bedtime?as needed?for 30?Days?Sleep ? Medications Started Per psych recommendations Medications Discontinued None Doses Changed Per psych recommendations PCP Follow-Up/Heads-Up -COVID+, stable/generally asymptomatic, test +07/04 so strict isolation until 07/14 advised -per psychiatry: ok for discharge, no need for constant globe mounter further, continue current regimen(olanzapine 5 mg BID, lithium 300 mg BID, benztropine 1 mg BID, olanzapine 5 mg PO TID PRN agitation, trazodone 50 mg QHS PRN insomnia) ??- pt should f/u with PCP and outpatient psychiatry for continued management including continued lithium monitoring (ie- repeating renal function and lithium level monitoring) as per pcp/outpatient psych-- prior to discharge normal renal function and low lithium level (0.5) Future Appointments 2022 10:00 AM EST ?? With: Fatoumata Stokes DO Where: [facility] [address] [place] [address]- Status: Pending Hospital Course 32-year-old female with PMH of high affective disorder, intellectual disability, sequel of alcohol syndrome, obesity, constipation, iron deficiency anemia who [facility] [facility] under section 12 in the setting of medication noncompliance despite community Lo order. Patient presented to [facility] crisis from jail due to erratic behavior and mood lability, has been experiencing increased paranoia, fixed delusions and command hallucinations. She was admitted on inpatient psychiatric service to [facility] with restarting of her home medications. During the hospital course has an episode of trying to self-harm and screaming on staff requiring medications. Patient has been progressively stabilizing and plan was made to discharge her back to the jail but patient turned out to be COVID-positive and so patient was transferred to medicine service, however patient remains stable medically and asymptomatic, nonhypoxic from COVID standpoint. Was reassessed by psychiatry consult team and cleared for discharge from psychiatry standpoint, cleared to discontinue 1:1 sitter from psychiatry standpoint, with recommendations to continue current psychiatric medication regimen (olanzapine 5 mg BID, lithium 300 mg BID, benztropine 1 mg BID, olanzapine 5 mg PO TID PRN agitation, trazodone 50 mg QHS PRN insomnia). Discharged to jail. ? PSYCH Summary note as below: ?? Loretta Celestin is a 32 year old female with a history of schizoaffective disorder, intellectual disability, sequelae of alcohol syndrome, obesity, constipation, and iron deficiency anemia, who presented to [facility] via EMS??on Section 12 on 06/23 due to increasingly agitated and paranoid behavior in the setting of medication non-adherence.??On admission, patient was evasive andhostile, although denied SI, HI, AVH, or recent substance use. Per chart review, she has not taken her medications at her jail for at least three days despite having a Community Emir's.??Medications were restarted in the ED. She??was admitted to [facility] inpatient psychiatry??for safety, stabili zation, and medication review. On [facility], patient progressively stabilized (organized, appropriate behavior, and consistently denied SI, HI, or AVH) and plan was made to discharge her back to the [facility] on 07/05??but she was??COVID-positive on 07/04,??so patient was discharged and admitted to the [facility] service for further management.??On initial evaluation by medical team, patient was calm and sleeping.?? She appropriately answered few questions by nodding.??Denies having any cough, sore throat, runny nose.??Did not answer any more questions.??She was afebrile, HR 86, RR 19, BP 138/92, saturation 100% on room air. Urinalysis negative, COVID PCR positive.??Patient??was admitted to inpatient medicine service for further management.??Psychiatry was consulted to assist with management of schizoaffective disorder. ?? On assessment today, patient is pleasant, calm and cooperative. She continues to deny auditory or visual hallucination, does not endorse paranoia or delusions, and denies suicidal or homicidal ideation. Patient's??recent decompensation of her established??schizoaffective disorder has been stabilized by resuming her home medication regimen and making adjustments to??her regimen??during her [facility] admission. At this time, she does not require a 1:1 sitter. We recommend continuing the medication regimen that she was discharged on from [facility]. From a psychiatry standpoint, the patient is cleared for discharge. We will defer discharge to the medicine team and the COVID protocols followed by the patient's jail. ? Objective Assessment and Plan Schizoaffective disorder ??Paranoid delusions ??Intellectual disability Patient was originally admitted to [facility] where she was managed and stabilized. Course complicated byincidental finding of COVID+, for which she was stable/nonhypoxic/asymptomatic. Cleared for discharge from medicine service off constant globe mounter/SI precautions from psychiatry standpoint per psych consult team. Recommended to continue current psychiatric medications: olanzapine 5 mg BID, lithium 300 mg BID, benztropine 1 mg BID, olanzapine 5 mg PO TID PRN agitation, trazodone 50 mg QHS PRN insomnia Recommendations: ??- discharge back to jail ??- per psychiatry no further indication for inpatient psych stay or constant globe mounter - per psychiatry continue olanzapine 5 mg BID, lithium 300 mg BID, benztropine 1 mg BID, olanzapine5 mg PO TID PRN agitation, trazodone 50 mg QHS PRN insomnia - f/u with PCP ; f/u with outpatient psych as per them - recheck lithium levels after discharge as per PCP/outpatient psychiatry ?? COVID infection Reports some cough +sputum but otherwise asymptomatic. Remains vitally stable, stable on room air, afebrile. Tested positive on 07/04. Isolation x 10 days would end approx. 07/14. ?? Recommendations: - fluticasone nasal spray as prescribed - strict handwashing, masking, isolation until 07/14 then follow public health guidelines regardingfurther covid vaccines, handwashing, masking, social distancing, etc. - f/u with PCP ? Vital Signs?? Temperature: 97.4 DegF (07/08/23 08:00:00) Temperature Route: Oral (07/08/23 08:00:00) Pulse Rate: 67 bpm (07/08/23 08:00:00) Respiratory Rate: 18 br/min (07/08/23 08:00:00) Systolic Blood Pressure: 119 mm Hg (07/08/23 08:00:00) Diastolic Blood Pressure:??45 mm Hg??Low (07/08/23 08:00:00) Blood pressure sites: Arm, left (07/08/23 08:00:00) Pulse Pressure: 48 mm Hg (07/08/23 00:00:00) Oxygen Saturation: 100 % (07/08/23 08:00:00) Mode of Delivery (Oxygen): Room air (07/08/23 08:00:00) Early Warning Score: 0 (07/08/23 17:59:49) ? . Physical Exam General: Alert, in no distress. Mental Status: Oriented to person, place and time. Respiratory: Clear to auscultation. No wheezing, rales or rhonchi. Cardiovascular: S1 S2 regular. No murmurs, rubs or gallops. Gastrointestinal: Abdomen soft, non-tender, non-distended. Normal bowel sounds. Neurologic: Cranial nerves II-XII grossly intact.?? Moves all extremities spontaneously. Sensation intact bilaterally.?? Musculoskeletal: No cyanosis or clubbing. No gross deformities. Normal range of motion. Psychiatric: Normal mood and affect Consultants Dr. Jenny Ross Patient Education Titles Understanding Schizoaffective Disorder?? Coronavirus Disease 2019 (COVID-19): Overview?? Patient Instructions You were admitted for decompensated schizoaffective disorder and were managed with intramuscular olanzapine. Your course was complicated by COVID 19. You are now being discharged back to your jail, however please follow isolation until 07/14 ?? Please continue current medication regimen established at time of [facility] discharge : ??olanzapine 5 mg by mouth??two times a day for mood stabilization (dx: schizoaffective disorder, paranoid delusions) ??lithium 300 mg by mouth??two times a day for mood stabilization (dx: schizoaffective disorder, paranoid delusions) ??benztropine 1 mg by mouth??two times a day for mood stabilization (dx: schizoaffective disorder, paranoid delusions) ??olanzapine 5 mg by mouth three times a day as needed for agitation ??trazodone 50mg by mouth daily at bedtime as needed for insomnia ?? Per medicine team Cetrizine 10mg by mouth daily as needed for allergic rhinitis Ferrous sulfate 325mg daily for iron deficiency anemia Miralax powder daily as needed for constipation ?? For any further questions contact patient's psychiatric providers or PCP Results Discharge Labs BLOOD COUNT & DIFF WBC 5.5 k/mm3 ()?? 07/06/2023 07:35 RBC 4.43 m/mm3 ()?? 07/06/2023 07:35 Hgb 11.3 Gm/dL (Low)?? 07/06/2023 07:35 Hct 37.5 % ()?? 07/06/2023 07:35 MCV 84.7 femtoliters ()?? 07/06/2023 07:35 MCH 25.5 pg (Low)?? 07/06/2023 07:35 MCHC 30.1 g/dL (Low)?? 07/06/2023 07:35 Platelet Count 241 k/mm3 ()?? 07/06/2023 07:35 RDW-SD 46.5 femtoliters ()?? 07/06/2023 07:35 MPV 11.6 femtoliters ()?? 07/06/2023 07:35 Nucleated RBC (Automated) 0.0 #/100 WBC'S ()?? 07/06/2023 07:35 Abs. NRBC 0.0 k/mm3 ()?? 07/06/2023 07:35 Abs. Neut 2.8 k/mm3 ()?? 07/05/2023 06:24 Abs. Lymph 2.6 k/mm3 ()?? 07/05/2023 06:24 Abs. Haakon 0.6 k/mm3 ()?? 07/05/2023 06:24 Abs. Eo 0.3 k/mm3 ()?? 07/05/2023 06:24 Abs. Baso 0.0 k/mm3 ()?? 07/05/2023 06:24 Neut % 44.5 % ()?? 07/05/2023 06:24 Lymph % 40.9 % ()?? 07/05/2023 06:24 Haakon % 8.8 % ()?? 07/05/2023 06:24 Eos % 4.7 % ()?? 07/05/2023 06:24 Baso % 0.6 % ()?? 07/05/2023 06:24 Imm Gran 0.5 % ()?? 07/05/2023 06:24 Abs. Imm Gran 0.0 k/mm3 ()?? 07/05/2023 06:24 ?? CARDIAC CK, Total 54 units/L ()?? 07/05/2023 06:24 ? CHEM GENERAL Sodium 143 mmol/L ()?? 07/06/2023 07:35 Potassium 4.4 mmol/L ()?? 07/06/2023 07:35 Chloride 107 mmol/L ()?? 07/06/2023 07:35 Bicarbonate Level 25 mmol/L ()?? 07/06/2023 07:35 Anion Gap 11 ()?? 07/06/2023 07:35 Glucose Level 77 mg/dL ()?? 07/06/2023 07:35 BUN 7 mg/dL ()?? 07/06/2023 07:35 Creatinine-Blood 0.8 mg/dL ()?? 07/06/2023 07:35 Estimated GFR Creatinine 100 ML/MIN/1.73 M2 ()?? 07/06/2023 07:35 Calcium 9.2 mg/dL ()?? 07/06/2023 07:35 Phosphorus 3.5 mg/dL ()?? 07/05/2023 06:24 Magnesium 2.1 mg/dL ()?? 07/05/2023 06:24 Lactate 0.9 mmol/L ()?? 07/05/2023 06:24 ? TOXICOLOGY/TDM [place] Level 0.5 mmol/L (Low)?? 07/05/2023 06:24 ? Patient seen and management discussed with attending, Dr. Ross ?? Raven Camarillo MD Internal Medicine, PGY1 Pager: [phone] 30??minutes spent on discharge * [facility] Meagan ROTHMAN: PERFORM Event Display: Patient Education/Instruction Authored Date: [id number] Inpatient Adult Discharge Instructions [place] [id number] Name: LORETTA CELESTIN : 1990 Visit: 07/05/2023 02:15:00 Current Date: 07/08/2023 16:57 Account: [id number] Inpatient Adult Discharge Instructions We would like to thank you for allowing us to assist you with your healthcare needs. The following includes patient education materials and information regarding your injury/illness. Our entire staffstrives to provide an excellent experience for our patients and their families. PLEASE ENSURE YOU FOLLOW-UP PER THE INSTRUCTIONS BELOW! ?? YOUR OPINION IS IMPORTANT TO US! Please complete the survey you may receive by mail or email. Your feedback will be used to make improvements to the healthcare experiences of our patients and their families. Surveys are administered by [employer] ?? If further treatment with your primary care physician or another doctor is recommended, it is important for you to keep the appointment. Call your primary care physician or return to the Emergency Department immediately if your condition worsens, fails to improve, or new symptoms develop. If you need to find a doctor, you can call [facility] for a referral at [phone] or toll free at [phone]) or log in to [email or web address].. ?? [facility], in keeping with [facility] guidance, no longer requires face masks for staff, patientsor visitors in most situations. Similiar to time spent indoors at other locations, there is the chance that you were exposed to repiratory viruses during your time with us (such as flu or COVID-19). If you develop symptoms concerning for a viral respiratory infection, please seek testing (and treatment if indicated) from your medical provider or home test kit. ?? You can view and manage your care through the patient portal or by using a health care lonny of your choosing. [employer] is a website that allows you to securely view your medical information including your hospital discharge summary, office visit summaries, medications and follow-up visits. You can also request appointments, renew medications, and request access to your medical information using a health care lonny of your choosing, or just ask a question. You can enroll at [email or web address] or register during your next office visit. You have been discharged from [facility], Patient Care Unit: D6A. If you have any questions regarding these instructions after you leave, please call us and we will be happy to assist you. [facility] Your Care Team Attending Physician Cody TORRES, Gwen Consulting Providers Jenny TORRES, Hesham Tarango Discharging Providers Raven Camarillo MD Reason for Admission COVID-19 POSITIVE Your Diagnosis Schizoaffective disorder COVID-19 Chronic post-traumatic stress disorder Cigarette nicotine dependence Tests Performed Below is a partial list of the tests performed during your hospitalization. You may have had other tests and procedures not included in this list. Please discuss all test results with your provider. Basic Metabolic Panel CBC CBC w/ Differential CPK Total Only Lactate Level [place] Level Magnesium Level Phosphorus Level Primary Care Provider Fatoumata Stokes DO Advance Directive Health Care Proxy on File Yes - Health Care Proxy Discharge Vitals Temperature: 97.4 DegF Pulse Rate: 67 bpm Respiratory Rate: 18 br/min Systolic Blood Pressure: 119 mm Hg Diastolic Blood Pressure:??45 mm Hg??Low Oxygen Saturation: 100 % Studies Pending All tests and labs ordered during this hospital stay have been completed unless listed below. Please discuss all pending results with your provider listed above in these instructions. ?? No incomplete studies found What to do next Instructions From Your Doctor You were admitted for decompensated schizoaffective disorder and were managed with intramuscular olanzapine. Your course was complicated by COVID 19. You are now being discharged back to your jail, however please follow isolation until 07/14 ?? Please continue current medication regimen established at time of [facility] discharge : ? - olanzapine 5 mg BID,?- lithium 300 mg BID,?- benztropine 1 mg BID,?- olanzapine 5 mg PO TID PRN agitation, ? - ??trazodone 50 mg QHS PRN insomnia ?? Psych Note as below: Loretta Celestin is a 32 year old female with a history of schizoaffective disorder, intellectual disability, sequelae of alcohol syndrome, obesity, constipation, and iron deficiency anemia, who presented to [facility] via EMS??on Section 12 on 06/23 due to increasingly agitated and paranoid behavior in the setting of medication non-adherence.??On admission, patient was evasive andhostile, although denied SI, HI, AVH, or recent substance use. Per chart review, she has not taken her medications at her jail for at least three days despite having a Community Emir's.??Medications were restarted in the ED. She??was admitted to [facility] inpatient psychiatry??for safety, stabili zation, and medication review. On [facility], patient progressively stabilized (organized, appropriate behavior, and consistently denied SI, HI, or AVH) and plan was made to discharge her back to the [facility] on 07/05??but she was??COVID-positive on 07/04,??so patient was discharged and admitted to the [facility] for further management.??On initial evaluation by medical team, patient was calm and sleeping.?? She appropriately answered few questions by nodding.??Denies having any cough, sore throat, runny nose.??Did not answer any more questions.??She was afebrile, HR 86, RR 19, BP 138/92, saturation 100% on room air. Urinalysis negative, COVID PCR positive.??Patient??was admitted to inpatient medicine service for further management.??Psychiatry was consulted to assist with management of schizoaffective disorder. ?? On assessment today, patient is pleasant, calm and cooperative. She continues to deny auditory or visual hallucination, does not endorse paranoia or delusions, and denies suicidal or homicidal ideation. Patient's??recent decompensation of her established??schizoaffective disorder has been stabilized by resuming her home medication regimen and making adjustments to??her regimen??during her [facility] admission. At this time, she does not require a 1:1 sitter. We recommend continuing the medication regimen that she was discharged on from [facility]. From a psychiatry standpoint, the patient is cleared for discharge. We will defer discharge to the medicine team and the COVID protocols followed by the patient's jail. ? DSM-V Diagnoses: Schizoaffective Disorder PTSD, chronic Intellectual Disability Sequelae of Alcohol Syndrome ?? Recommendations: -??Cleared for discharge from a psychiatry standpoint -??Discontinue 1:1 sitter -??Continue current medication regimen established at time of [facility] discharge : Per psychiatry recommendations: medication list ??olanzapine 5 mg by mouth??two times a day for mood stabilization (dx: schizoaffective disorder, paranoid delusions) ??lithium 300 mg by mouth??two times a day for mood stabilization (dx: schizoaffective disorder, paranoid delusions) ??benztropine 1 mg by mouth??two times a day for mood stabilization (dx: schizoaffective disorder, paranoid delusions) ??olanzapine 5 mg by mouth three times a day as needed for agitation ??trazodone 50mg by mouth daily at bedtime as needed for insomnia ?? Per medicine team Cetrizine 10mg by mouth daily as needed for allergic rhinitis Ferrous sulfate 325mg daily for iron deficiency anemia Miralax powder daily as needed for constipation ?? For any further questions contact patient's psychiatric providers or PCP Discharge Orders Scheduled Follow-Up Appointments 2022 10:00 AM EST ?? With: Fatoumata Stokes DO Where: [facility] [address] [place] [address]- Status: Pending Discharge Medications LORETTA CELESTIN :1990 Visit Date:07/05/2023 Medications: Please continue your medications until treatment is completed or stopped by your provider. Medications not listed below should be discontinued. Discuss any questions related to medications with your provider. What How Much When Instructions Next Dose Changed Benztropine (benztropine 1 mg oral tablet) 1 Milligram Oral Twice a day Duration: [address] [facility] (07/08/2023) @9pm Changed [place] (lithium 300 mg oral tablet) 300 Milligram Oral Twice a day Duration: [address] [facility] (07/08/2023) @9pm Changed Olanzapine (olanzapine 2.5 mg oral tablet) 5 Milligram Oral Twice a day Duration: [address] [facility] (07/08/2023) @9pm Changed Olanzapine (olanzapine 5 mg oral tablet) 5 Milligram Oral 3 times a day as needed for Agitation Duration: 30 Days Pickup at [facility] As needed Changed Trazodone (traZODone 50 mg oral tablet) 50 Milligram Oral Daily at Bedtime as needed for Sleep Duration: 30 Days Pickup at [facility] as needed Unchanged Acetaminophen (acetaminophen 325 mg oral tablet) 650 Milligram Oral Every 6 hours as needed for Pain , Mild / Headache ?? Resume previous schedule Unchanged Al Hydroxide/ Mg Hydroxide/ Simethicone (Maalox Plus Liquid) 30 Milliliter Oral Every 4 hours as needed for Dyspepsia Resume previous schedule Unchanged Calcium Carbonate (Tums 500 mg oral tablet, chewable) 1 tab(s) Chew Every 4 hours as needed for Dyspepsia Resume previous schedule Unchanged Cetirizine (cetirizine 10 mg oral tablet) 10 Milligram Oral Daily Resume previous schedule Unchanged Ferrous Sulfate (ferrous sulfate 325 mg oral enteric coated tablet) 325 Milligram Oral Every other day Resume previous schedule Unchanged Fluticasone Nasal (fluticasone 50 mcg/ inh nasal spray) 1 spray(s) Nares, Both Twice a day as needed for Other nasal allergy symptoms ?? Resume previous schedule Unchanged Lactulose (lactulose 10 gm/ 15 ml oral syrup) 30 Milliliter Oral 3 times a day as needed for Constipation Resume previous schedule Unchanged Milk of Magnesia (Milk of Magnesia Liquid) 30 Milliliter Oral Every 4 hours as needed for Constipation Resume previous schedule Unchanged Polyethylene Glycol 3350 (MiraLax Powder) 17 gram Oral Daily Resume previous schedule Pharmacy Information [facility]: [address] [place] [address] [phone] Test Results Below is a partial list of the most recent Laboratory test results done prior to this discharge. You may have had other tests and procedures not included in this list. Please discuss all test resultswith your provider. Basic Metabolic Panel (07/06/2023) ???Sodium - 143 mmol/L???Potassium - 4.4 mmol/L???Chloride - 107 mmol/L???Bicarbonate Level - 25 mmol/L???Anion Gap - 11???Glucose Level - 77 mg/dL???BUN - 7 mg/dL???Creatinine-Blood - 0.8 mg/dL???Estimated GFR Creatinine - 100 ML/MIN/1.73 M2???Calcium - 9.2 mg/dL CBC (07/06/2023) ???WBC - 5.5 k/mm3???RBC - 4.43 m/mm3???Hgb - 11.3 Gm/dL???Hct - 37.5 %???MCV - 84.7 femtoliters???MCH - 25.5 pg???MCHC - 30.1 g/dL???Platelet Count - 241 k/mm3???RDW-SD - 46.5 femtoliters???MPV - 11.6 femtoliters???Nucleated RBC (Automated) - 0.0 #/100 WBC'S???Abs. NRBC - 0.0 k/mm3 CBC w/ Differential (07/05/2023) ???WBC - 6.3 k/mm3???RBC - 3.94 m/mm3???Hgb - 9.8 Gm/dL???Hct - 32.8 %???MCV - 83.2 femtoliters???MCH - 24.9 pg???MCHC - 29.9 g/dL???Platelet Count - 218 k/mm3???RDW-SD - 46.8 femtoliters???MPV - 11.5 femtoliters???Nucleated RBC (Automated) - 0.0 #/100 WBC'S???Abs. NRBC - 0.0 k/mm3???Abs. Neut - 2.8 k/mm3???Abs. Lymph - 2.6 k/mm3???Abs. Haakon - 0.6 k/mm3???Abs. Eo - 0.3 k/mm3???Abs. Baso - 0.0 k/mm3???Neut % - 44.5 %???Lymph % - 40.9 %???Haakon % - 8.8 %???Eos % - 4.7 %???Baso % - 0.6 %???Imm Gran- 0.5 %???Abs. Imm Gran - 0.0 k/mm3 CPK Total Only (07/05/2023) ???CK, Total - 54 units/L Lactate Level (07/05/2023) ???Lactate - 0.9 mmol/L [place] Level (07/05/2023) ???[place] Level - 0.5 mmol/L Magnesium Level (07/05/2023) ???Magnesium - 2.1 mg/dL Phosphorus Level (07/05/2023) ???Phosphorus - 3.5 mg/dL Allergies (NKA means No Known Allergies) Flagyl Haldol Invega cloZAPine paliperidone Problems Active Problems??(25) Allergic rhinitis?? Chronic constipation?? Chronic GERD?? Chronic post-traumatic stress disorder?? Cigarette nicotine dependence?? COVID-19?? Depression?? Environmental allergies?? alcohol syndrome?? Foster Care (Status)?? Frequent falls?? History of suicidal ideation w/ suicide attempt?? Hypernatremia?? Hyperprolactinemia?? Iron deficiency anemia?? Last pap smear 08/31/19 negative?? Obesity?? Oligomenorrhea?? Paranoid delusion?? Personality disorder?? Poor historian?? Psychosis?? Schizoaffective schizophrenia?? Severe obesity (BMI 35.0-39.9) with comorbidity?? Weight gain with seroquel in the past?? Education Materials Below is the list of Educational Leaflet Providered with your Discharge Instructions. Understanding Schizoaffective Disorder?? Coronavirus Disease 2019 (COVID-19): Overview?? Valuables and Belongings I fully understand and agree that [facility] accepts no responsibility for all my personal property including clothing, toilet articles, radios, jewelry, dentures, hearing aids, rings, money, or any other property that is in my possession or is brought to me after admission. I understand certain valuables may be placed in a hospital safe for a short period of time. I understand that the hospital is not liable for loss or damage due to accident, fire, or other natural occurrence while said property is in the safe. I accept full responsibility for any personal property that I keep with me, and will not hold the hospital responsible in case of loss or disappearance. I acknowledge that i have been encouraged to send valuables and belongings home. ? Other Discharge Information ? Case Management Discharge Plan?? Discharge Plan?? Discharge Level of Care at Discharge: Home/Penitentiary/Foster Care Discharge Rx Program: Discharge Prescription Program Discharge Transportation Arranged: [facility] Josselyn Bermudez [facility] [id number] [phone] Mode of Transportation Arranged: Ambulance Discharge Arranged Transport Date/Time: 07/08/23 15:30:00 ?? Pulmonary Rehab Status?? Pulmonary Rehab Discharge Status?? Respiratory Rate: 18 br/min ? Common Emergency Awareness Tips IS IT A STROKE? Act FAST and Check for these signs: FACE Does the face look uneven? ARM Does one arm drift down? SPEECH Does their speech sound strange? TIME Call at any sign of stroke ?? Heart Attack Signs Chest discomfort: Most heart attacks involve discomfort in the center of the chest and lasts more than a few minutes, or goes away and comes back. It can feel like uncomfortable pressure, squeezing, fullness or pain. Discomfort in upper body: Symptoms can include pain or discomfort in one or both arms, back, neck, jaw or stomach. Shortness of breath: With or without discomfort. Other signs: Breaking out in a cold sweat, nausea, or lightheaded. Remember, MINUTES DO MATTER. If you experience any of these heart attack warning signs, call to get immediate medical attention! ?? Smoking can increase your chances of developing chronic health problems and can cause harmful effects to other family members in your house. If you smoke, you are strongly encouraged to quit. Please call [facility] [employer] Link at [phone] or [phone] ([phone]) or log in to [email or web address] for referrals to smoking cessation programs. ?? 765 Suicide & Crisis Lifeline is available 18/04 if you or someone you know needs to find a reason to keep living. By calling 069 you'll be connected to a skilled, trained counselor at a crisis center in your area. INPATIENT DISCHARGE INSTRUCTIONS SIGNATURE AMARJIT LORETTA CELESTIN Location:[facility] Registration Date and Time:07/05/2023 02:15 EDT Primary Care Physician: Fatoumata Stokes DO, Attending Physician: Cody TORRES, [facility], I LORETTA CELESTIN, have received the above patient education materials/instructions and have verbalized understanding. If ambulance or transport services are being used I further acknowledge being given a choice of service. ?? If you need to contact me, please call me at this number: . Patient/Employment Coordinator Name: Patient/Employment Coordinator Signature: Relationship to Patient: Witness Name/Signature: Date: * Raven Camarillo MD: PERFORM Event Display: Discharge/Transfer Note Hospital Authored Date: Patient: ??LORETTA CELESTIN ? Age:??32 Years?Sex:??Female?:??1990?? Patient Information Discharge Location: [facility] Primary Care Physician: Fatoumata Stokes DO Admit Date/Time: 07/05/23 02:15 Discharge Disposition Discharge Disposition: Home: No Services Discharge Diagnosis COVID-19 (U07.1) Chronic post-traumatic stress disorder (F43.12) Cigarette nicotine dependence (F17.210) Schizoaffective disorder (F25.9) ?? _ Discharge Medications Acetaminophen (acetaminophen 325 mg oral tablet)?650?Milligram?By Mouth?Every 6 hours?as needed?/Headache?Pain , Mild Al Hydroxide/Mg Hydroxide/Simethicone (Maalox Plus Liquid)?30?Milliliter?By Mouth?Every4 hours?as needed?Dyspepsia Benztropine (benztropine 1 mg oral tablet)?1?Milligram?By Mouth?2 times a day?for 30?Days Calcium Carbonate (Tums 500 mg oral tablet, chewable)?500?Milligram?1?tablet?Chew?Every 4 hours?as needed?Dyspepsia Cetirizine (cetirizine 10 mg oral tablet)?10?Milligram?By Mouth?Daily Ferrous Sulfate (ferrous sulfate 325 mg oral enteric coated tablet)?325?Milligram?By Mouth?Every other day Fluticasone Nasal (fluticasone 50 mcg/inh nasal spray)?1?spray(s)?50?Microgram?Nares, Both?2 times a day?as needed?Other?nasal allergy symptoms Lactulose (lactulose 10 gm/15 ml oral syrup)?30?Milliliter?20?gram?By Mouth?3 times a day?as needed?Constipation [place] (lithium 300 mg oral tablet)?300?Milligram?By Mouth?2 times a day?for 30?Days Milk of Magnesia (Milk of Magnesia Liquid)?30?Milliliter?By Mouth?Every 4 hours?as needed?Constipation Olanzapine (olanzapine 5 mg oral tablet)?5?Milligram?By Mouth?3 times a day?as needed?for 30?Days?Agitation Olanzapine (olanzapine 2.5 mg oral tablet)?5?Milligram?By Mouth?2 times a day?for 30?Days Polyethylene Glycol 3350 (MiraLax Powder)?1?pack/packet?17?gram?By Mouth?Daily Trazodone (traZODone 50 mg oral tablet)?50?Milligram?By Mouth?Daily at bedtime?as needed?for 30?Days?Sleep ? Future Appointments 2022 10:00 AM EST ?? With: Fatoumata Stokes DO Where: [facility] [address] [place] [address]- Status: Pending Hospital Course 32-year-old female with PMH of high affective disorder, intellectual disability, sequel of alcohol syndrome, obesity, constipation, iron deficiency anemia who initially presented to [facility] under section 12 in the setting of medication noncompliance despite community Lo order. Patient presented to [facility] from jail due to erratic behavior and mood lability, has been experiencing increased paranoia, fixed delusions and command hallucinations. She was admitted on inpatient psychiatric service to [facility] with restarting of her home medications. During the hospital course has an episode of trying to self-harm and screaming on staff requiring medications. Patient has been progressively stabilizing and plan was made to discharge her back to the jail but patient turned out to be COVID-positive and so patient was transferred to medicine service, however patient remains stable medically and asymptomatic, nonhypoxic from COVID standpoint. Was reassessed by psychiatry consult team and cleared for discharge from psychiatry standpoint, cleared to discontinue 1:1 sitter from psychiatry standpoint, with recommendations to continue current psychiatric medication regimen (olanzapine 5 mg BID, lithium 300 mg BID, benztropine 1 mg BID, olanzapine 5 mg PO TID PRN agitation, trazodone 50 mg QHS PRN insomnia). Discharged to jail. ? PSYCH Summary note as below: ?? Loretta Celestin is a 32 year old female with a history of schizoaffective disorder, intellectual disability, sequelae of alcohol syndrome, obesity, constipation, and iron deficiency anemia, who presented to [facility] via EMS??on Section 12 on 06/23 due to increasingly agitated and paranoid behavior in the setting of medication non-adherence.??On admission, patient was evasive andhostile, although denied SI, HI, AVH, or recent substance use. Per chart review, she has not taken her medications at her jail for at least three days despite having a [facility].??Medications were restarted in the ED. She??was admitted to [facility] inpatient psychiatry??for safety, stabili zation, and medication review. On [facility], patient progressively stabilized (organized, appropriate behavior, and consistently denied SI, HI, or AVH) and plan was made to discharge her back to the [facility] on 07/05??but she was??COVID-positive on 07/04,??so patient was discharged and admitted to the [facility] service for further management.??On initial evaluation by medical team, patient was calm and sleeping.?? She appropriately answered few questions by nodding.??Denies having any cough, sore throat, runny nose.??Did not answer any more questions.??She was afebrile, HR 86, RR 19, BP 138/92, saturation 100% on room air. Urinalysis negative, COVID PCR positive.??Patient??was admitted to inpatient medicine service for further management.??Psychiatry was consulted to assist with management of schizoaffective disorder. ?? On assessment today, patient is pleasant, calm and cooperative. She continues to deny auditory or visual hallucination, does not endorse paranoia or delusions, and denies suicidal or homicidal ideation. Patient's??recent decompensation of her established??schizoaffective disorder has been stabilized by resuming her home medication regimen and making adjustments to??her regimen??during her [facility] admission. At this time, she does not require a 1:1 sitter. We recommend continuing the medication regimen that she was discharged on from [facility]. From a psychiatry standpoint, the patient is cleared for discharge. We will defer discharge to the medicine team and the COVID protocols followed by the patient's jail. ? DSM-V Diagnoses: Schizoaffective Disorder PTSD, chronic Intellectual Disability Sequelae of Alcohol Syndrome ?? Recommendations: -??Cleared for discharge from a psychiatry standpoint -??Discontinue 1:1 sitter -??Continue current medication regimen established at time of [facility] discharge : ? - olanzapine 5 mg BID,?- lithium 300 mg BID,?- benztropine 1 mg BID,?- olanzapine 5 mg PO TID PRN agitation, ? - ??trazodone 50 mg QHS PRN insomnia ? Objective ??Assessment and Plan ??Schizoaffective disorder ??Paranoid delusions ??Intellectual disability Patient was originally admitted to [facility] where she was managed and stabilized. Course complicated byincidental finding of COVID+, for which she was stable/nonhypoxic/asymptomatic. Cleared for discharge from medicine service off constant globe mounter/SI precautions from psychiatry standpoint per psych consult team. Recommended to continue current psychiatric medications: olanzapine 5 mg BID, lithium 300 mg BID, benztropine 1 mg BID, olanzapine 5 mg PO TID PRN agitation, trazodone 50 mg QHS PRN insomnia Recommendations: ??- discharge back to jail ??- per psychiatry no further indication for inpatient psych stay or constant globe mounter - per psychiatry continue olanzapine 5 mg BID, lithium 300 mg BID, benztropine 1 mg BID, olanzapine5 mg PO TID PRN agitation, trazodone 50 mg QHS PRN insomnia - f/u with PCP ; f/u with outpatient psych as per them - recheck lithium levels after discharge as per PCP/outpatient psychiatry ?COVID infection Reports some cough +sputum but otherwise asymptomatic. Remains vitally stable, stable on room air, afebrile. Tested positive on 07/04. Isolation x 10 days would end approx. 07/14. ?? Recommendations: - fluticasone nasal spray as prescribed - strict handwashing, masking, isolation until 07/14 then follow public health guidelines regardingfurther covid vaccines, handwashing, masking, social distancing, etc. - f/u with PCP ? Objective Vital Signs?? Temperature: 98.8 DegF (07/07/23 12:36:00) Temperature Route: Oral (07/07/23 12:36:00) Pulse Rate: 81 bpm (07/07/23 12:36:00) Respiratory Rate: 18 br/min (07/07/23 12:36:00) Systolic Blood Pressure:??143 mm Hg??High (07/07/23 12:36:00) Diastolic Blood Pressure:??88 mm Hg??High (07/07/23 12:36:00) Blood pressure sites: Arm, right (07/07/23 12:36:00) Mean Arterial Pressure: 106 mm Hg (07/07/23 12:36:00) Pulse Pressure: 55 mm Hg (07/07/23 12:36:00) Oxygen Saturation: 100 % (07/07/23 12:36:00) Mode of Delivery (Oxygen): Room air (07/07/23 12:36:00) Early Warning Score: 0 (07/07/23:38:22) ? . Physical Exam General: Alert, in no distress. Mental Status: Oriented to person, place and time. Respiratory: Clear to auscultation. No wheezing, rales or rhonchi. Cardiovascular: S1 S2 regular. No murmurs, rubs or gallops. Gastrointestinal: Abdomen soft, non-tender, non-distended. Normal bowel sounds. Neurologic: Cranial nerves II-XII grossly intact.?? Moves all extremities spontaneously. Sensation intact bilaterally.?? Musculoskeletal: No cyanosis or clubbing. No gross deformities. Normal range of motion. Psychiatric: Normal mood and affect Consultants Dr. Jenny Ross Pending Results No Pending Results Patient Education Titles Understanding Schizoaffective Disorder?? Coronavirus Disease 2019 (COVID-19): Overview?? Patient Instructions You were admitted for decompensated schizoaffective disorder and were managed with intramuscular olanzapine. Your course was complicated by COVID 19. You are now being discharged back to your jail, however please follow isolation until 07/14 ?? Please continue current medication regimen established at time of [facility] discharge : ? - olanzapine 5 mg BID,?- lithium 300 mg BID,?- benztropine 1 mg BID,?- olanzapine 5 mg PO TID PRN agitation, ? - ??trazodone 50 mg QHS PRN insomnia ?? Psych Note as below: Loretta Celestin is a 32 year old female with a history of schizoaffective disorder, intellectual disability, sequelae of alcohol syndrome, obesity, constipation, and iron deficiency anemia, who presented to [facility] via EMS??on [address] 12 on 06/23 due to increasingly agitated and paranoid behavior in the setting of medication non-adherence.??On admission, patient was evasive andhostile, although denied SI, HI, AVH, or recent substance use. Per chart review, she has not taken her medications at her jail for at least three days despite having a Community [facility]'s.??Medications were restarted in the ED. She??was admitted to [facility] inpatient psychiatry??for safety, stabili zation, and medication review. On [facility], patient progressively stabilized (organized, appropriate behavior, and consistently denied SI, HI, or AVH) and plan was made to discharge her back to the [facility] on 07/05??but she was??COVID-positive on 07/04,??so patient was discharged and admitted to the [facility] for further management.??On initial evaluation by medical team, patient was calm and sleeping.?? She appropriately answered few questions by nodding.??Denies having any cough, sore throat, runny nose.??Did not answer any more questions.??She was afebrile, HR 86, RR 19, BP 138/92, saturation 100% on room air. Urinalysis negative, COVID PCR positive.??Patient??was admitted to inpatient medicine service for further management.??Psychiatry was consulted to assist with management of schizoaffective disorder. ?? On assessment today, patient is pleasant, calm and cooperative. She continues to deny auditory or visual hallucination, does not endorse paranoia or delusions, and denies suicidal or homicidal ideation. Patient's??recent decompensation of her established??schizoaffective disorder has been stabilized by resuming her home medication regimen and making adjustments to??her regimen??during her [facility] admission. At this time, she does not require a 1:1 sitter. We recommend continuing the medication regimen that she was discharged on from [facility]. From a psychiatry standpoint, the patient is cleared for discharge. We will defer discharge to the medicine team and the COVID protocols followed by the patient's jail. ? DSM-V Diagnoses: Schizoaffective Disorder PTSD, chronic Intellectual Disability Sequelae of Alcohol Syndrome ?? Recommendations: -??Cleared for discharge from a psychiatry standpoint -??Discontinue 1:1 sitter -??Continue current medication regimen established at time of [facility] discharge : Per psychiatry recommendations: medication list ??olanzapine 5 mg by mouth??two times a day for mood stabilization (dx: schizoaffective disorder, paranoid delusions) ??lithium 300 mg by mouth??two times a day for mood stabilization (dx: schizoaffective disorder, paranoid delusions) ??benztropine 1 mg by mouth??two times a day for mood stabilization (dx: schizoaffective disorder, paranoid delusions) ??olanzapine 5 mg by mouth three times a day as needed for agitation ??trazodone 50mg by mouth daily at bedtime as needed for insomnia ?? Per medicine team Cetrizine 10mg by mouth daily as needed for allergic rhinitis Ferrous sulfate 325mg daily for iron deficiency anemia Miralax powder daily as needed for constipation ?? For any further questions contact patient's psychiatric providers or PCP Home Health Face to Face ^HomeHealthFTF Results Discharge Labs BLOOD COUNT & DIFF WBC 5.5 k/mm3 ()?? 07/06/2023 07:35 RBC 4.43 m/mm3 ()?? 07/06/2023 07:35 Hgb 11.3 Gm/dL (Low)?? 07/06/2023 07:35 Hct 37.5 % ()?? 07/06/2023 07:35 MCV 84.7 femtoliters ()?? 07/06/2023 07:35 MCH 25.5 pg (Low)?? 07/06/2023 07:35 MCHC 30.1 g/dL (Low)?? 07/06/2023 07:35 Platelet Count 241 k/mm3 ()?? 07/06/2023 07:35 RDW-SD 46.5 femtoliters ()?? 07/06/2023 07:35 MPV 11.6 femtoliters ()?? 07/06/2023 07:35 Nucleated RBC (Automated) 0.0 #/100 WBC'S ()?? 07/06/2023 07:35 Abs. NRBC 0.0 k/mm3 ()?? 07/06/2023 07:35 Abs. Neut 2.8 k/mm3 ()?? 07/05/2023 06:24 Abs. Lymph 2.6 k/mm3 ()?? 07/05/2023 06:24 Abs. Haakon 0.6 k/mm3 ()?? 07/05/2023 06:24 Abs. Eo 0.3 k/mm3 ()?? 07/05/2023 06:24 Abs. Baso 0.0 k/mm3 ()?? 07/05/2023 06:24 Neut % 44.5 % ()?? 07/05/2023 06:24 Lymph % 40.9 % ()?? 07/05/2023 06:24 Haakon % 8.8 % ()?? 07/05/2023 06:24 Eos % 4.7 % ()?? 07/05/2023 06:24 Baso % 0.6 % ()?? 07/05/2023 06:24 Imm Gran 0.5 % ()?? 07/05/2023 06:24 Abs. Imm Gran 0.0 k/mm3 ()?? 07/05/2023 06:24 ?? CARDIAC CK, Total 54 units/L ()?? 07/05/2023 06:24 ? CHEM GENERAL Sodium 143 mmol/L ()?? 07/06/2023 07:35 Potassium 4.4 mmol/L ()?? 07/06/2023 07:35 Chloride 107 mmol/L ()?? 07/06/2023 07:35 Bicarbonate Level 25 mmol/L ()?? 07/06/2023 07:35 Anion Gap 11 ()?? 07/06/2023 07:35 Glucose Level 77 mg/dL ()?? 07/06/2023 07:35 BUN 7 mg/dL ()?? 07/06/2023 07:35 Creatinine-Blood 0.8 mg/dL ()?? 07/06/2023 07:35 Estimated GFR Creatinine 100 ML/MIN/1.73 M2 ()?? 07/06/2023 07:35 Calcium 9.2 mg/dL ()?? 07/06/2023 07:35 Phosphorus 3.5 mg/dL ()?? 07/05/2023 06:24 Magnesium 2.1 mg/dL ()?? 07/05/2023 06:24 Lactate 0.9 mmol/L ()?? 07/05/2023 06:24 ? TOXICOLOGY/TDM [place] Level 0.5 mmol/L (Low)?? 07/05/2023 06:24 ? 30??minutes spent on discharge * Cody TORRES, Gwen: PERFORM Event Display: Discharge/Transfer Note Hospital Authored Date: Attending Attestation: I have seen and evaluated this patient. I have discussed the case and its management with the PA/FUSION ANALYST/resident and agree with the findings and plan as documented. * Raven Camarillo MD: PERFORM, MODIFY Event Display: Discharge/Transfer Note Hospital Authored Date: Patient: ??LORETTA CELESTIN ? Age:??32 Years?Sex:??Female?:??1990?? Patient Information Discharge Location: [facility] Primary Care Physician: Fatoumata Stokes DO Admit Date/Time: 07/05/23 02:00 Discharge Disposition Discharge Disposition: Home: No Services Discharge Diagnosis COVID-19 (U07.1) Chronic post-traumatic stress disorder (F43.12) Cigarette nicotine dependence (F17.210) Schizoaffective disorder (F25.9) ?? _ Discharge Medications Acetaminophen (acetaminophen 325 mg oral tablet)?650?Milligram?By Mouth?Every 6 hours?as needed?/Headache?Pain , Mild Al Hydroxide/Mg Hydroxide/Simethicone (Maalox Plus Liquid)?30?Milliliter?By Mouth?Every4 hours?as needed?Dyspepsia Benztropine (benztropine 1 mg oral tablet)?1?Milligram?By Mouth?2 times a day?for 30?Days Calcium Carbonate (Tums 500 mg oral tablet, chewable)?500?Milligram?1?tablet?Chew?Every 4 hours?as needed?Dyspepsia Cetirizine (cetirizine 10 mg oral tablet)?10?Milligram?By Mouth?Daily Ferrous Sulfate (ferrous sulfate 325 mg oral enteric coated tablet)?325?Milligram?By Mouth?Every other day Fluticasone Nasal (fluticasone 50 mcg/inh nasal spray)?1?spray(s)?50?Microgram?Nares, Both?2 times a day?as needed?Other?nasal allergy symptoms Lactulose (lactulose 10 gm/15 ml oral syrup)?30?Milliliter?20?gram?By Mouth?3 times a day?as needed?Constipation [place] (lithium 300 mg oral tablet)?300?Milligram?By Mouth?2 times a day?for 30?Days Milk of Magnesia (Milk of Magnesia Liquid)?30?Milliliter?By Mouth?Every 4 hours?as needed?Constipation Olanzapine (Olanzapine Inj)?5?Milligram?Intramuscular?2 times a day?as needed?Other Olanzapine (olanzapine 5 mg oral tablet)?5?Milligram?By Mouth?3 times a day?as needed?for 30?Days?Agitation Olanzapine (olanzapine 2.5 mg oral tablet)?5?Milligram?By Mouth?2 times a day?for 30?Days Polyethylene Glycol 3350 (MiraLax Powder)?1?pack/packet?17?gram?By Mouth?Daily Trazodone (traZODone 50 mg oral tablet)?50?Milligram?By Mouth?Daily at bedtime?as needed?for 30?Days?Sleep ? PCP Follow-Up/Heads-Up - COVID+, stable/generally asymptomatic, test +07/04 so strict isolation until 07/14 advised - per psychiatry: ok for discharge, no need for constant globe mounter further, continue current regimen (olanzapine 5 mg BID, lithium 300 mg BID, benztropine 1 mg BID, olanzapine 5 mg PO TID PRN agitation, trazodone 50 mg QHS PRN insomnia) - pt should f/u with PCP and outpatient psychiatry for continued management including continued lithium monitoring (ie- repeating renal function and lithium level monitoring) as per pcp/outpatient psych-- prior to discharge normal renal function and low lithium level (0.5) Future Appointments 2022 10:00 AM EDT ?? With: Fatoumata Stokes DO Where: [facility] [address] [place] [address]- Status: Pending 2022 10:00 AM EST ?? With: Fatoumata Stokes DO Where: [facility] [address] [place] [address]- Status: Pending Hospital Course 32-year-old female with PMH of high affective disorder, intellectual disability, sequel of alcohol syndrome, obesity, constipation, iron deficiency anemia who initially presented to [facility] under section 12 in the setting of medication noncompliance despite community Lo order. Patient presented to [facility] from jail due to erratic behavior and mood lability, has been experiencing increased paranoia, fixed delusions and command hallucinations. She was admitted on inpatient psychiatric service to [facility] with restarting of her home medications. During the hospital course has an episode of trying to self-harm and screaming on staff requiring medications. Patient has been progressively stabilizing and plan was made to discharge her back to the jail but patient turned out to be COVID-positive and so patient was transferred to medicine service, however patient remains stable medically and asymptomatic, nonhypoxic from COVID standpoint. Was reassessed by psychiatry consult team and cleared for discharge from psychiatry standpoint, cleared to discontinue 1:1 sitter from psychiatry standpoint, with recommendations to continue current psychiatric medication regimen (olanzapine 5 mg BID, lithium 300 mg BID, benztropine 1 mg BID, olanzapine 5 mg PO TID PRN agitation, trazodone 50 mg QHS PRN insomnia). Discharged to jail. ? PSYCH Summary note as below: ?? Loretta Celestin is a 32 year old female with a history of schizoaffective disorder, intellectual disability, sequelae of alcohol syndrome, obesity, constipation, and iron deficiency anemia, who presented to [facility] via EMS??on [address] 12 on 06/23 due to increasingly agitated and paranoid behavior in the setting of medication non-adherence.??On admission, patient was evasive andhostile, although denied SI, HI, AVH, or recent substance use. Per chart review, she has not taken her medications at her jail for at least three days despite having a Community [facility].??Medications were restarted in the ED. She??was admitted to [facility] inpatient psychiatry??for safety, stabili zation, and medication review. On [facility], patient progressively stabilized (organized, appropriate behavior, and consistently denied SI, HI, or AVH) and plan was made to discharge her back to the [facility] on 07/05??but she was??COVID-positive on 07/04,??so patient was discharged and admitted to the [facility] for further management.??On initial evaluation by medical team, patient was calm and sleeping.?? She appropriately answered few questions by nodding.??Denies having any cough, sore throat, runny nose.??Did not answer any more questions.??She was afebrile, HR 86, RR 19, BP 138/92, saturation 100% on room air. Urinalysis negative, COVID PCR positive.??Patient??was admitted to inpatient medicine service for further management.??Psychiatry was consulted to assist with management of schizoaffective disorder. ?? On assessment today, patient is pleasant, calm and cooperative. She continues to deny auditory or visual hallucination, does not endorse paranoia or delusions, and denies suicidal or homicidal ideation. Patient's??recent decompensation of her established??schizoaffective disorder has been stabilized by resuming her home medication regimen and making adjustments to??her regimen??during her [facility] admission. At this time, she does not require a 1:1 sitter. We recommend continuing the medication regimen that she was discharged on from [facility]. From a psychiatry standpoint, the patient is cleared for discharge. We will defer discharge to the medicine team and the COVID protocols followed by the patient's jail. ? DSM-V Diagnoses: Schizoaffective Disorder PTSD, chronic Intellectual Disability Sequelae of Alcohol Syndrome ?? Recommendations: -??Cleared for discharge from a psychiatry standpoint -??Discontinue 1:1 sitter -??Continue current medication regimen established at time of [facility] discharge : ? - olanzapine 5 mg BID,?- lithium 300 mg BID,?- benztropine 1 mg BID,?- olanzapine 5 mg PO TID PRN agitation, ? - ??trazodone 50 mg QHS PRN insomnia ? Objective Assessment and Plan Schizoaffective disorder ??Paranoid delusions ??Intellectual disability Patient was originally admitted to [facility] where she was managed and stabilized. Course complicated byincidental finding of COVID+, for which she was stable/nonhypoxic/asymptomatic. Cleared for discharge from medicine service off constant globe mounter/SI precautions from psychiatry standpoint per psych consult team. Recommended to continue current psychiatric medications: olanzapine 5 mg BID, lithium 300 mg BID, benztropine 1 mg BID, olanzapine 5 mg PO TID PRN agitation, trazodone 50 mg QHS PRN insomnia Recommendations: ??- discharge back to jail ??- per psychiatry no further indication for inpatient psych stay or constant globe mounter - per psychiatry continue olanzapine 5 mg BID, lithium 300 mg BID, benztropine 1 mg BID, olanzapine5 mg PO TID PRN agitation, trazodone 50 mg QHS PRN insomnia - f/u with PCP ; f/u with outpatient psych as per them - recheck lithium levels after discharge as per PCP/outpatient psychiatry ?? COVID infection Reports some cough +sputum but otherwise asymptomatic. Remains vitally stable, stable on room air, afebrile. Tested positive on 07/04. Isolation x 10 days would end approx. 07/14. ?? Recommendations: - fluticasone nasal spray as prescribed - strict handwashing, masking, isolation until 07/14 then follow public health guidelines regardingfurther covid vaccines, handwashing, masking, social distancing, etc. - f/u with PCP ? Vital Signs?? Temperature: 98.4 DegF (07/06/23 08:22:00) Temperature Route: Oral (07/06/23 08:22:00) Pulse Rate:??54 bpm??Low (07/06/23 08:22:00) Respiratory Rate: 16 br/min (07/06/23 08:22:00) Systolic Blood Pressure: 128 mm Hg (07/06/23 08:22:00) Diastolic Blood Pressure: 78 mm Hg (07/06/23 08:22:00) Blood pressure sites: Arm, right (07/06/23 08:22:00) Mean Arterial Pressure: 95 mm Hg (07/06/23 08:22:00) Pulse Pressure: 50 mm Hg (07/06/23 08:22:00) Oxygen Saturation: 100 % (07/06/23 08:22:00) Mode of Delivery (Oxygen): Room air (07/06/23 08:22:00) Early Warning Score: 0 (07/06/23 10:07:05) ? . Physical Exam General: Alert, in no distress. Mental Status: Oriented to person, place and time. Respiratory: Clear to auscultation. No wheezing, rales or rhonchi. Cardiovascular: S1 S2 regular. No murmurs, rubs or gallops. Gastrointestinal: Abdomen soft, non-tender, non-distended. Normal bowel sounds. Neurologic: Cranial nerves II-XII grossly intact.?? Moves all extremities spontaneously. Sensation intact bilaterally.?? Musculoskeletal: No cyanosis or clubbing. No gross deformities. Normal range of motion. Psychiatric: Normal mood and affect Consultants Dr. Jenny Ross Patient Education Titles Understanding Schizoaffective Disorder?? Coronavirus Disease 2019 (COVID-19): Overview?? Patient Instructions You were admitted for decompensated schizoaffective disorder and were managed with intramuscular olanzapine. Your course was complicated by COVID 19. You are now being discharged back to your jail, however please follow isolation until 07/14 ?? Please continue current medication regimen established at time of [facility] discharge : ? - olanzapine 5 mg BID,?- lithium 300 mg BID,?- benztropine 1 mg BID,?- olanzapine 5 mg PO TID PRN agitation, ? - ??trazodone 50 mg QHS PRN insomnia ?? Psych Note as below: Loretta Celestin is a 32 year old female with a history of schizoaffective disorder, intellectual disability, sequelae of alcohol syndrome, obesity, constipation, and iron deficiency anemia, who presented to [facility] via EMS??on [address] on 06/23 due to increasingly agitated and paranoid behavior in the setting of medication non-adherence.??On admission, patient was evasive andhostile, although denied SI, HI, AVH, or recent substance use. Per chart review, she has not taken her medications at her jail for at least three days despite having a [facility].??Medications were restarted in the ED. She??was admitted to [facility] inpatient psychiatry??for safety, stabili zation, and medication review. On [facility], patient progressively stabilized (organized, appropriate behavior, and consistently denied SI, HI, or AVH) and plan was made to discharge her back to the [facility] on 07/05??but she was??COVID-positive on 07/04,??so patient was discharged and admitted to the [facility] service for further management.??On initial evaluation by medical team, patient was calm and sleeping.?? She appropriately answered few questions by nodding.??Denies having any cough, sore throat, runny nose.??Did not answer any more questions.??She was afebrile, HR 86, RR 19, BP 138/92, saturation 100% on room air. Urinalysis negative, COVID PCR positive.??Patient??was admitted to inpatient medicine service for further management.??Psychiatry was consulted to assist with management of schizoaffective disorder. ?? On assessment today, patient is pleasant, calm and cooperative. She continues to deny auditory or visual hallucination, does not endorse paranoia or delusions, and denies suicidal or homicidal ideation. Patient's??recent decompensation of her established??schizoaffective disorder has been stabilized by resuming her home medication regimen and making adjustments to??her regimen??during her [facility] admission. At this time, she does not require a 1:1 sitter. We recommend continuing the medication regimen that she was discharged on from [facility]. From a psychiatry standpoint, the patient is cleared for discharge. We will defer discharge to the medicine team and the COVID protocols followed by the patient's jail. ? DSM-V Diagnoses: Schizoaffective Disorder PTSD, chronic Intellectual Disability Sequelae of Alcohol Syndrome ?? Recommendations: -??Cleared for discharge from a psychiatry standpoint -??Discontinue 1:1 sitter -??Continue current medication regimen established at time of [facility] discharge : ? - olanzapine 5 mg BID,?- lithium 300 mg BID,?- benztropine 1 mg BID,?- olanzapine 5 mg PO TID PRN agitation, ? - ??trazodone 50 mg QHS PRN insomnia Home Health Face to Face ^[facility] Results Discharge Labs BLOOD COUNT & DIFF WBC 5.5 k/mm3 ()?? 07/06/2023 07:35 RBC 4.43 m/mm3 ()?? 07/06/2023 07:35 Hgb 11.3 Gm/dL (Low)?? 07/06/2023 07:35 Hct 37.5 % ()?? 07/06/2023 07:35 MCV 84.7 femtoliters ()?? 07/06/2023 07:35 MCH 25.5 pg (Low)?? 07/06/2023 07:35 MCHC 30.1 g/dL (Low)?? 07/06/2023 07:35 Platelet Count 241 k/mm3 ()?? 07/06/2023 07:35 RDW-SD 46.5 femtoliters ()?? 07/06/2023 07:35 MPV 11.6 femtoliters ()?? 07/06/2023 07:35 Nucleated RBC (Automated) 0.0 #/100 WBC'S ()?? 07/06/2023 07:35 Abs. NRBC 0.0 k/mm3 ()?? 07/06/2023 07:35 Abs. Neut 2.8 k/mm3 ()?? 07/05/2023 06:24 Abs. Lymph 2.6 k/mm3 ()?? 07/05/2023 06:24 Abs. Haakon 0.6 k/mm3 ()?? 07/05/2023 06:24 Abs. Eo 0.3 k/mm3 ()?? 07/05/2023 06:24 Abs. Baso 0.0 k/mm3 ()?? 07/05/2023 06:24 Neut % 44.5 % ()?? 07/05/2023 06:24 Lymph % 40.9 % ()?? 07/05/2023 06:24 Haakon % 8.8 % ()?? 07/05/2023 06:24 Eos % 4.7 % ()?? 07/05/2023 06:24 Baso % 0.6 % ()?? 07/05/2023 06:24 Imm Gran 0.5 % ()?? 07/05/2023 06:24 Abs. Imm Gran 0.0 k/mm3 ()?? 07/05/2023 06:24 ?? CARDIAC CK, Total 54 units/L ()?? 07/05/2023 06:24 ? CHEM GENERAL Sodium 143 mmol/L ()?? 07/06/2023 07:35 Potassium 4.4 mmol/L ()?? 07/06/2023 07:35 Chloride 107 mmol/L ()?? 07/06/2023 07:35 Bicarbonate Level 25 mmol/L ()?? 07/06/2023 07:35 Anion Gap 11 ()?? 07/06/2023 07:35 Glucose Level 77 mg/dL ()?? 07/06/2023 07:35 BUN 7 mg/dL ()?? 07/06/2023 07:35 Creatinine-Blood 0.8 mg/dL ()?? 07/06/2023 07:35 Estimated GFR Creatinine 100 ML/MIN/1.73 M2 ()?? 07/06/2023 07:35 Calcium 9.2 mg/dL ()?? 07/06/2023 07:35 Phosphorus 3.5 mg/dL ()?? 07/05/2023 06:24 Magnesium 2.1 mg/dL ()?? 07/05/2023 06:24 Lactate 0.9 mmol/L ()?? 07/05/2023 06:24 ? TOXICOLOGY/TDM [place] Level 0.5 mmol/L (Low)?? 07/05/2023 06:24 ? Patient seen and management discussed with attending, Dr. Ross ?? Raven Camarillo MD Internal Medicine, PGY1 Pager: [phone] 30??minutes spent on discharge * Raven Camarillo MD: PERFORM Event Display: Discharge/Transfer Note Hospital Authored Date: Patient was unable to go to the jail yesterday. The earliest she could have gone was 6pm but this did not happen. She is expected to leave today. ?? Let this note serve as a progress note for 07/06 and discharge summary for 07/07. * Cody TORRES, [facility]: PERFORM Event Display: Discharge/Transfer Note Hospital Authored Date: Attending Attestation: I have seen and evaluated this patient. I have discussed the case and its management with the PA/FUSION ANALYST/resident and agree with the findings and plan as documented. * Carla Walter MD: PERFORM Carla Walter MD: PERFORM, MODIFY, MODIFY Raven Camarillo MD: MODIFY Event Display: Patient Education/Instruction Authored Date: [id number] Patient: ??LORETTA CELESTIN ? Age:??32 Years?Sex:??Female?:??1990?? Per psychiatry recommendations: medication list ??Acetaminophen (acetaminophen 325 mg oral tablet)?650?Milligram?By Mouth?Every 6 hours?as needed?/Headache?Pain , Mild Al Hydroxide/Mg Hydroxide/Simethicone (Maalox Plus Liquid)?30?Milliliter?By Mouth?Every4 hours?as needed?Dyspepsia Benztropine (benztropine 1 mg oral tablet)?1?Milligram?By Mouth?2 times a day?for 30?Days for mood stablization Calcium Carbonate (Tums 500 mg oral tablet, chewable)?500?Milligram?1?tablet?Chew?Every 4 hours?as needed?Dyspepsia Cetirizine (cetirizine 10 mg oral tablet)?10?Milligram?By Mouth?Daily for allergic rhinitis Ferrous Sulfate (ferrous sulfate 325 mg oral enteric coated tablet)?325?Milligram?By Mouth?Every other day for iron deficiency anemia Fluticasone Nasal (fluticasone 50 mcg/inh nasal spray)?1?spray(s)?50?Microgram?Nares, Both?2 times a day?as needed?for ??nasal allergy symptoms Lactulose (lactulose 10 gm/15 ml oral syrup)?30?Milliliter?20?gram?By Mouth?3 times a day?as needed?for Constipation [place] (lithium 300 mg oral tablet)?300?Milligram?By Mouth?2 times a day?for 30?Days for mood stablization Milk of Magnesia (Milk of Magnesia Liquid)?30?Milliliter?By Mouth?Every 4 hours?as needed?? for ??Constipation Olanzapine (olanzapine 5 mg oral tablet)?5?Milligram?By Mouth?3 times a day?as needed?for 30?Days?for agitation Olanzapine (olanzapine 2.5 mg oral tablet)?5?Milligram?By Mouth?2 times a day?for 30?Days for mood stablization Polyethylene Glycol 3350 (MiraLax Powder)?1?pack/packet?17?gram?By Mouth?Daily for constipation Trazodone (traZODone 50 mg oral tablet)?50?Milligram?By Mouth?Daily at bedtime?as needed?for 30?Days?? for??Sleep ?? For any further questions contact patient's psychiatric providers or PCP ? Raven Camarillo MD Internal Medicine, PGY1 Pager: [phone] * Raven Camarillo MD: PERFORM Event Display: Patient Education Leaflets Authored Date: Understanding Schizoaffective Disorder ?? [id number] Understanding Schizoaffective Disorder Schizoaffective disorder is fairly rare. But it is a serious and puzzling brain disorder. It combines symptoms of bipolar disorder and schizophrenia. The symptoms are often severe and ongoing. They can cause great emotional pain for the person with the condition and for their family and friends. This disorder often disrupts lives. But there is reason for hope. Talk with your healthcare provider or mental health professional. What are the symptoms? The symptoms of schizoaffective disorder can vary greatly. People with this disorder may see or hear things that aren???t there (hallucinations). Or they may hold false, fixed beliefs (delusions). These can occur without any mood changes. At times, people with this disorder may seem withdrawn, listless, and remote. They may also have extreme mood swings. They may feel intensely happy for a time. Later, they may be very depressed. In some cases, they might have only lows without the highs. They might also have problems with sleep or a change in appetite. They may become more or less talkative,lose focus in their thinking, or even think about suicide. ?? What causes it? The causes of schizoaffective disorder aren???t fully understood. It is known that this disorder runs in families. Certain chemicals in the brain also play a role. In some people, abuse, neglect, or a major trauma may trigger the disorder. ?? Finding help Right now there is no cure. But treatment with medicines and therapy may be helpful. There are alsomany support services for people with schizoaffective disorders and their families. ?? Medicines Medicines may relieve many symptoms of schizoaffective disorder. These may include antipsychotic medicines, antidepressant medicines, or mood stabilizers. If your loved one is troubled by medicine side effects, tell their healthcare provider. Changing the dose or type of medicine may help. Encourage your loved one to keep taking their medicines and get ongoing follow-up care. Stopping the medicines may cause symptoms to come back. Failing to visit the provider to change the doses can also make symptoms return. Never increase or decrease the dose unless you talk with the provider. ?? Supportive therapy A licensed therapist such as a licensed clinical social welfare administrator (MANUFACTURING TEAM MEMBER) can offer your loved one therapy and support. Social workers and care managers may also help with work, money, or housing issues.Friends and family members may also need support. Learning more about schizoaffective disorder can help you cope. Learn how best to help with your loved one???s care. Ask your mental healthcare providers for reliable community or online patient and family resources.? Last Reviewed Date: 2022 ?? [employer]. All rights reserved. This information is not intended as a substitute for professional medical care. Always follow your healthcare professional's instructions. ?? * Raven Camarillo MD: PERFORM Event Display: Patient Education Leaflets Authored Date: [id number] Coronavirus Disease 2019 (COVID-19): Overview ?? 57013 Coronavirus Disease 2019 (COVID-19): Overview Coronavirus disease 2019 (COVID-19) is an illness that infects the lungs. It's caused by a type of coronavirus. The virus is called SARS-CoV-2. There are many types of coronaviruses. They are a common cause of colds and bronchitis. They can cause a lung infection called pneumonia. Symptoms can range from mild to severe. Some people have no symptoms. These types of viruses are also found in some animals. Viruses change (mutate) all the time. The changes lead to different forms of a virus. These are called variants. COVID-19 variants may spread more easily from person to person. They may cause milder symptoms. Or they may cause more severe symptoms.?? The virus spreads and infects people easily. It can infect a person more easily if they are not immune to it. The virus most often spreads through droplets of fluid that a person coughs or sneezes into the air. In some cases, you can get it from touching a surface with the virus on it and then touching your eyes, nose, or mouth. To help prevent spreading the infection, wash your hands often, or use an alcohol-based hand manufacturing management associate. To learn more For the latest from the CDC: ??? Go to the CDC website ??? Call 012-LCH-UOFN (515-656-1921) ?? What are the symptoms of COVID-19? Some people have no symptoms. Some have mild symptoms. Others may have severe symptoms. This variesfrom person to person. Symptoms may start 2 to 14 days after contact with the virus. They can include: ??? Fever ??? Chills ??? Coughing ??? Trouble breathing or feeling short of breath ??? Sore throat ??? Stuffy or runny nose ??? Headache ??? Body aches ??? Tiredness ??? Nausea, vomiting, diarrhea, or belly pain ??? New loss of sense of smell or taste ?? What are possible complications of COVID-19? The virus can cause an infection in the lungs. This is called pneumonia. This can lead to in some cases. Experts are still learning more about COVID-19 problems. Problems may include: ??? Low blood pressure ??? Kidney failure ??? Inflammation of the brain or heart ??? Rashes Some people are at higher risk for problems. This includes: ??? Older adults ??? People with heart or lung disease ??? People with diabetes or kidney disease ??? People with health conditions that limit the immune system ??? People who take medicines that limit the immune system Rarely, a child may have a severe complication. This is called multisystem inflammatory syndrome inchildren (MIS-C). MIS-C seems to be like Kawasaki disease. This is a rare illness. It causes swelling of blood vessels and body organs. MIS can also happen in adults. But this is less common. ? How is COVID-19 diagnosed? Your healthcare provider will ask: ??? What symptoms you have ??? Where you live ??? If you???ve traveled recently ??? If you???ve hadcontact with sick people ??? If you are vaccinated against COVID-19 ??? If you have had COVID-19 You may have 1 of these tests for COVID-19: ??? Viral (molecular) test. You may also hear this called a PCR or RT-PCR test. Viral tests are very accurate. A viral test looks for the genetic material (RNA) of the SARS-CoV-2 virus. There are a few ways to do this. A swab may be wiped inside your nose or throat. Or a long swab may be put into your nose down to the back of your throat. Or a sample of your saliva may be taken. Your test results may be back in 45 minutes to a few hours. This depends on the type of test. Some tests must be sentto a lab. These can take several days for the results. You can now get test kits to use at home. Some of these need a prescription. Follow the instructions in the kit closely if you use a home kit. Some kits show results quickly at home. Others must be sent to a lab for the results. ??? Antigen test. This can find proteins from the SARS-CoV-2 virus. A swab may be wiped inside your nose or throat.Or a long swab may be put into your nose down to the back of your throat. Some results are back within 15 to 60 minutes. This depends on the type of test. Positive results are very accurate. But false positive results can happen. And the results can be negative even in people with COVID-19. Antigen tests are more likely to miss a COVID-19 infection than a viral (molecular) test. You may need to have a viral test if your antigen test is negative but you have symptoms of COVID-19. ??? Breath test. This rapid test is not widely available at this time. It finds SARS-CoV-2 infection in the breath.The test is done at providers' offices, hospitals, and mobile testing sites. You may have other tests if your provider thinks or confirms that you have COVID-19. These tests may include: ??? Antibody blood test. This type of test can show if you had the virus in the past. It shows antibodies for the virus in the blood. The accuracy of these tests varies. And they are not available everywhere. An antibody test may not show if you have an infection right now. This is because it can take up to a few weeks for your body to make antibodies. None of the antibody tests can yet be used to tell if a person is immune to the virus. ??? Sputum culture. If you have a wet cough, you may be asked to cough up a bit of mucus (sputum) from your lungs. This is tested for the virus. It may be tested for pneumonia. ??? Imaging tests. You may have a chest X-ray or CT scan. Can you get COVID-19 again? Yes, you can get COVID-19 more than once. You may not have immunity. You could have lost the immunity. Or you may get COVID-19 from a different strain (variant) of the virus that you are not immune to. But the COVID-19 vaccine helps lower the risk for COVID-19. ?? Vaccines for COVID-19 The FDA and CDC advise vaccines for people 6 months and older to help prevent COVID-19. The vaccines can also make the illness less severe. It can keep you from needing to go to the hospital.?? And it can prevent the spread of the virus to others. No vaccine is 100% effective at preventing an illness. But getting a vaccine is important. or people can have the vaccine. Updated (bivalent) mRNA vaccines from [employer] and [employer] are advised. Other options are available for people who can't or won't get an mRNA vaccine. These are Novavax and [employer] COVID-19 vaccines. COVID-19 vaccines are given as a shot (injection) into the muscle. Ask your healthcare provider which vaccine is best for you and your family. COVID-19 vaccine booster shots People ages 6 months or older can get a COVID-19 booster shot. It's given a few months after their primary series. Boosters can help with protection against COVID-19 that may have decreased over time. Booster advice varies by vaccine, age, health, and COVID-19 variants. People ages 65 and older and some people with a very weak immune system should get an updated (bivalent) mRNA booster. Talk with your provider about your risk and how this applies to you. ?? How is COVID-19 treated? The best treatments right now are those to help your body while it fights the virus. This is calledsupportive care. It includes: ??? Rest. This helps your body fight the illness. ??? Fluids. Try to drink 6 to 8 glasses of fluidsevery day. Ask your provider which drinks are best for you. Don't have drinks with caffeine or alcohol. ??? Wttr-rcd-ehblgdo (OTC) medicine. These are used to help ease pain and reduce fever. Ask your provider which OTC medicine is safe for you to use. Talk with your provider if you have confirmed COVID-19. You may qualify for medicines approved by the FDA to prevent severe COVID-19 infection. You may need to stay in the hospital for severe illness. Your care may include: ??? IV fluids. These are given through a vein. This helps to replace fluids in your body. ??? Oxygen. You may be given extra oxygen. Or you may be put on a breathing machine (ventilator). This is done so you get enough oxygen in your body. ??? Prone positioning. Your healthcare team may regularly turn you on your stomach. This is called prone positioning. It helps increase the amount of oxygen you get to your lungs.Follow their instructions on position changes while you're in the hospital and at home. ??? Antiviral medicines. Antivirals stop the SARS-CoV-2 virus from spreading in the body. The FDA has approved certain antiviral medicines to treat mild to moderate COVID-19 in people who are more likely to get very sick. These treatments are not available for everyone. Talk with your provider to learn more. ??? Steroids or other anti-inflammatory medicines. These are used to lessen the inflammation that some people with COVID-19 have. Inflammation can lead to more trouble breathing. It can cause other complications or . ??? Monoclonal antibodies. These were once used for earlier COVID-19 strains, but monoclonal antibody treatment is not effective for the latest variant. Talk with your provider roseline more. ??? COVID-19 convalescent plasma. Plasma is the liquid part of blood. People who had COVID-19 may be asked to donate plasma. This is called COVID-19 convalescent plasma. The plasma may have antibodies. Some people with COVID-19 who have very weak immune systems may benefit from this treatment. Your provider can help decide if it's right for you. ?? Are you at risk for COVID-19? You are at risk for COVID-19 if any of these apply to you: ??? You live in or traveled to an area with cases of COVID-19 ??? You had close contact (within 6 feet) with someone who had COVID-19 COVID-19 may be spread by people who don't show symptoms. Date last modified: 01/17/2023 ?? Last Reviewed Date: 2021 ?? 8709-2541 [employer]. All rights reserved. This information is not intended as a substitute for professional medical care. Always follow your healthcare professional's instructions. ?? Patient Care team information Care Team Personnel Name: Dean Rivas RN Position: [facility] RN Member Role: Primary Care Nurse Name: Tian Naylor RN Position: [facility] RN Member Role: Primary Care Nurse Name: Jolanta cAe RN Position: [facility] RN Supv Member Role: Primary Care Nurse Name: Fatoumata Stokes DO Position: [facility] [facility] Physician - Primary Care Member Role: PCP Address: Address: [address] [facility] [place] [address]- [place] Name: Britt Polanco RN Position: [facility] RN Member Role: Primary Care Nurse Name: Awilda Grider RN Position: [facility] RN Member Role: Primary Care Nurse Name: Meagan Darden RN Position: [facility] RN Member Role: Primary Care Nurse Name: Chintan Leach DO Position: [facility] Renal MD Member Role: Lifetime Consulting Physician Address: Address: [address] [place] [address] [address] [facility] [place] [address]- Name: Chandler Ye RN Position: [facility] RN Member Role: Primary Care Nurse Name: Apurva Ji RN Position: [facility] ED RN W/OE and Tasks Member Role: Primary Care Nurse Name: Cordelia Matias RN Position: [facility] AMB Nurse Member Role: Primary Care Nurse Name: Riya Moore RN Position: [facility] RN Member Role: Primary Care Nurse Name: Radha Gutierrez Position: [facility] Outreach Member Role: Primary Care Nurse Name: Keenan Vincent RN Position: [facility] SN RN Member Role: Primary Care Nurse Name: Sasha Patricio RN Position: [facility] RN Member Role: Primary Care Nurse Name: Virgie Angel Position: [facility] RN Member Role: Primary Care Nurse Name: Emma Kaminski RN Position: [facility] RN Member Role: Primary Care Nurse Name: Malu Palomo Position: [facility] RN Member Role: Primary Care Nurse Name: Azeb Gusman RN Position: [facility] RN Member Role: Primary Care Nurse Name: Asher Diaz RN Position: [facility] RN Member Role: Primary Care Nurse Name: Meredith Martinez RN Position: [facility] RN Member Role: Primary Care Nurse Name: Anika Gotti RN Position: [facility] RN Member Role: Primary Care Nurse Name: Rafiq Muñoz RN Position: [facility] RN Member Role: Primary Care Nurse Name: Justina Walker RN Position: [facility] RN Member Role: Primary Care Nurse Name: Kenia Zuniga RN Position: [facility] PCO w/OE and EZ Script Member Role: Primary Care Nurse Name: Ivone Hidalgo RN Position: [facility] RN Member Role: Primary Care Nurse Name: Mazin Penn MD Position: [facility] Physician - Behavioral Health Member Role: Lifetime Consulting Physician Address: Address: [address] [place] [address]- Care Team Related Persons Name: CHUN DORITA Address: [address] [place] [address] Name: STEW PECK Address: home [address] [id number] Name: LISA PALMA Address: [address] [place] [address]
--- OUTSIDE RECORDS SUMMARY | 2023-08-16 12:27 | XMS_ITS | Continuity of Care Document ---
Author Name Unknown Organization [facility] Address [address] [place] [address]- Care Team Providers Care Phd Internship Name Role Phone Fatoumata Stokes DO Primary Care Physician [facility]22 - 12/11/22 [facility] [address] [place], [place] [address] Allergies, Adverse Reactions, Alerts Substance Reaction [...] 09/29/22 9:09:00 EST, Route to Pharmacy Electronically, [id number], 163, cm, 09/14/22 8:12:00 EST, Height, 87.9, kg, 09/09/22 12:06:00 EST, Dry Weight Start Date: 09/29/22 Status: Ordered benztropine 1 mg oral tablet 1 mg, 1, tablet, By Mouth, 2 times a day, # 60 tablet, Refills 0, Tot. Refills 0, Maintenance, 09/14/22 13:02:00 EST, Route to Pharmacy Electronically, [facility], 163, cm, 09/14/22 8:12:00 EST, Height, 87.9, kg, 09/09/22 12:06:00 EST, D... Start Date: 09/14/22 Stop Date: 10/14/22 Status: Ordered cetirizine 10 mg oral tablet 1 tablet, By Mouth, Daily, # 30 tablet, 0 Refills, Maintenance, 09/14/22 13:03:00 EST, [facility], 163, cm, 09/14/22 8:12:00 EST, Height, 87.9, kg, 09/09/22 12:06:00 EST, Dry Weight Start Date: 09/14/22 Status: Ordered docusate sodium 100 mg oral capsule 1 capsule, By Mouth, 2 times a day, # 60 capsule, 11 Refills, 10/06/22 16:34:00 EST, [facility]/pharmacy #[id number], 163, cm, 09/14/22 8:12:00 EST, Height, 87.9, kg, 09/09/22 12:06:00 EST, Dry Weight Start Date: 10/06/22 Status: Ordered estradiol 0.1 mg/24 hours twice weekly transdermal film, extended release See Instructions, apply 1 patch Topically every tuesday and , # 24 patch, 0 Refills, Maintenance, 11/24/22 12:36:00 EST, [facility]/pharmacy #[id number], Partial fill upon patient request if the prescription is for a schedule II opioid drug., 162, cm, 11/23... Start Date: 11/24/22 Status: Ordered Estradiol Patch 0.1 mg/24 hours twice weekly transdermal film, extended release See Instructions, APPLY 1 PATCH TOPICALLY EVERY TUESDAY & TUESDAY, # 8 patch, 0 Refills, 09/14/22 13:03:00 EST, [facility], APPLY 1 PATCH TOPICALLY EVERY TUESDAY & TUESDAY, 163,cm, 09/14/22 8:12:00 EST, Height, 87.9, kg, 09/09/22 12:06:... Start Date: 09/14/22 Status: Ordered ferrous sulfate 325 mg oral enteric coated tablet 1, tablet, By Mouth, Every other day, may take with food to minimize abdominal discomfort, # 15 tablet, Refills 0, Tot. Refills 0, 09/14/22 13:04:00 EST, Route to Pharmacy Electronically, [facility], 163, cm, 09/14/22 8:12:00 [...] 0 Refills, Maintenance, 09/14/22 13:05:00 EST, Tablet, [facility], Partial fill upon patient request if the prescription is for a schedule II opioid drug., 163, cm, 09/14/22 8:12:0... Start Date: 09/14/22 Status: Ordered medroxyPROGESTERone 150 mg/mL intramuscular suspension 1 mL, Intramuscular, Every 3 months, # 1 mL, 3 Refills, Soft Stop, 03/13/21 13:05:00 EDT, [facility]/pharmacy #[id number], 164, cm, 03/13/21 9:51:00 EDT, Height, 112, kg, 10/14/20 10:13:00 EST, Dry Weight Start Date: 03/13/21 Status: Ordered olanzapine 2.5 mg oral tablet 2.5 mg, 1, tablet, By Mouth, Daily, PRN, Agitation/Psychosis, # 14 tablet, Refills 1, Tot. Refills 1, Maintenance, Other, 10/16/22 12:36:00 EST, Route to Pharmacy Electronically, [facility]/pharmacy #[id number], Partial fill upon patient request if the prescriptio... Start Date: 10/16/22 Stop Date: 11/13/22 Status: Ordered omeprazole 20 mg oral enteric coated capsule 1 capsule, By Mouth, Daily, # 90 capsule, 0 Refills, [id number], 163, cm, 09/24/21 16:23:00 EST, Height, 112, kg, 10/14/20 10:13:00 EST, Dry Weight Start Date: 03/04/22 Status: Ordered perphenazine 16 mg oral tablet 16 mg, 1, tablet, By Mouth, 2 times a day, take with 4mg tablet for a total dose of 20 mg 2 times daily, # 60 tablet, Refills 0, Tot. Refills 0, Maintenance, 09/14/22 13:06:00 EST, Route to Pharmacy Electronically, [facility], Partial fi... Start Date: 09/14/22 Status: Ordered perphenazine 4 mg oral tablet 4 mg, 1, tablet, By Mouth, 2 times a day, take with 16 mg tablet for a total dose of 20 mg 2 times daily, # 60 tablet, Refills 0, Tot. Refills 0, Maintenance, 09/14/22 13:06:00 EST, Route to PharmacyElectronically, [facility], Partial f... Start Date: 09/14/22 Status: Ordered perphenazine 8 mg oral tablet 8 mg, 1, tablet, By Mouth, Daily, at 12 PM, # 30 tablet, Refills 0, Tot. Refills 0, Maintenance, 09/14/22 13:06:00 EST, Route to Pharmacy Electronically, [facility], Partial fill upon patient request if the prescription is for a schedule... Start Date: 09/14/22 Status: Ordered progesterone 200 mg oral capsule 1 capsule = 200 mg, By Mouth, Daily, for 12 days, To take on the first twelve days of each month., # 12 capsule, 3 Refills, Acute 01/11/23 11:56:00 EDT, 11/24/22 11:56:00 EST, Capsule, [facility]/pharmacy #[id number], Partial fill upon patient request if the presc... Start Date: 11/24/22 Stop Date: 01/11/23 Status: Ordered Senna 8.6 mg oral tablet 8.6 mg, 1, tablet, By Mouth, Daily at bedtime, # 30 tablet, Refills 0, Tot. Refills 0, Maintenance,09/14/22 13:06:00 EST, Route to Pharmacy Electronically, [facility] 3 Tablet, Partial fill upon patient request if the prescription is for... Start Date: 09/14/22 Status: Ordered simethicone 125 mg oral capsule See Instructions, TAKE 1 CAPSULE BY MOUTH THREE TIMES A DAY AFTER MEALS AND AT BEDTIME NEEDED, #48 capsule, 11 Refills, Maintenance, 09/24/22 18:10:00 EST, [facility], 163, cm, 09/14/22 8:12:00 EST, Height, 87.9, kg, 09/09/22 12:06:00 EST, Start Date: 09/24/22 Status: Ordered ZyPREXA 2.5 mg oral tablet 2.5 mg, 1, tablet, By Mouth, Daily at bedtime, # 14 tablet, Refills 0, Tot. Refills 0, Maintenance,10/16/22 11:51:00 EST, Route to Pharmacy Electronically, [facility]/pharmacy #[id number], Partial fill upon patient request if the [...] Iron deficiency anemia Confirmed Active Obese class I Confirmed Active Obesity Confirmed Active Oligomenorrhea Confirmed [...] Display: History and Physical Hospital Authored Date: [id number] [place], [place] PSYCHIATRIC HISTORY ASSESS EXAM NAME: LORETTA CELESTIN : 89 MR#: [id number] PCP: ADMITTED: 12/20/15 DATE OF SERVICE: 12/20/15 HPI - Hosp Psych H P Chief Complaint Pt was sent from [facility] here for hallunication History of Present Illness 24 yo AA Female with known schizophrenia was seen at [facility] ER for hallucination. Apparently pt has been lived in senior living and sent to [facility] for acute exacerbation of her underline schizophrenia. [...] QDAY Haloperidol* (Haldol*) 5 MG PO BID [place] Carbonate SR* (Lithobid*) 300 MG PO QDAY liTHIum Carbonate SR* ([place] Carbonate SR*) 450 MG PO 4PM Discontinued Reported Medications Citalopram* (CeleXA*) 40 MG PO QDAY Benztropine* 0.5 MG PO BID buPROPion SR* 150 MG PO [id number] Trazodone* (Desyrel*) 100 MG PO HS RisperiDONE* [...] 324 MG QDAY 12/20 09 CKD PO [place] Carbonate 300 MG QDAY 12/20 09 AC PO Polyethylene Glycol 17 GM QDAY 12/20 0900 CKD PO Benztropine Mesylate 1 MG 0900,12/19 1700 AC PO Docusate Sodium 100 MG 0900,12/19 1700 AC PO Haloperidol 5 MG 0900,12/19 1700 AC PO [place] Carbonate 450 MG PM 12/19 1700 AC [...] fullly ambulartory Care Level Complexity of Care [id number] Comprehensive history, comprehensive examination, medical decision making of low complexity, at least 20 minutes at the bedside, patient's floor/ unit. ESigned by: YAS GARZA MD Date:12/21/15 Time:1633 / NOT FOR REDISCLOSURE WITHOUT PATIENT'S INFORMED CONSENT Admission evaluation note * Event Display: Admit Notes Authored Date: [id number] [place], [place] PSYCHIATRIC ADMISSION NOTE NAME: LORETTA CELESTIN : 89 HOSPITAL #: [id number] MR #: [id number] CHART LOC: PCP: DICTATING: MARIA R Robin MD DATE OF ADMISSION: 12/20/15 DATE OF SERVICE: 12/21/15 CHIEF COMPLAINT: This 23-year-old woman was admitted to [facility] on 12/20/15 on a Conditional Voluntary application because of suicidal ideation. HISTORY OF PRESENT ILLNESS: The patient has been treated for schizoaffective disorder depressed type, posttraumatic stress disorder, intellectual disability and alcohol syndrome with multiple hospitalizations for self-harming behavior and suicidal ideation. She presented to Crisis Services from her senior living reporting that she was having urges to [...] how they had evolved. Staff at the senior living where she lives reported her as unusually [...] HISTORY: The patient is living in a senior living. Came to [place] with her grandmother in 2013, was very [...] year NAME: LORETTA CELESTIN : 89 HOSP#: [id number] MR#: [id number] CHART LOC: PCP: DICTATING: MARIA R Robin MD PSYCHIATRIC ADMISSION NOTE CONTINUED: unknown. TREATMENT PLAN: Resume outpatient medications, physical exam, collateral contact with community caregivers and social network, safety plan, aftercare plan and observe. 927 T:sn DD:[id number] TD:0745 DT:[id number] TT:0924 JOB:[id number] MICHELLE/SHANNON MARIA R Robin MD ESigned by: Date:12/22/15 Time:642 NOT FOR REDISCLOSURE WITHOUT PATIENT'S INFORMED CONSENT Patient Care team information Care Team Personnel Name: Dean Rivas RN Position: [facility] RN Member Role: Primary Care Nurse Name: Fatoumata Stokes DO Position: [facility] Primary Care Physician Member Role: PCP Address: Address: [address] [place] [address] Adult & [place] [address]- Name: Britt Polanco RN Position: [facility] RN Member Role: Primary Care Nurse Name: Anyi Avendano RN Position: [facility] RN Supv Member Role: Primary Care Nurse Name: Awilda rGider RN Position: [facility] RN Member Role: Primary Care Nurse Name: Chintan Leach DO Position: [facility] Renal MD Member Role: Lifetime Consulting Physician Address: Address: [address] [place], [place] [address] [place], [place] [address] Name: Chandler Ye RN Position: [facility] ED RN W/OE and Tasks Member Role: Primary Care Nurse Name: Apurva Ji RN Position: [facility] ED RN W/OE and Tasks Member Role: Primary Care Nurse Name: Cordelia Matias RN Position: [facility] AMB Nurse Member Role: Primary Care Nurse Name: Radha Gutierrez Position: [facility] Outreach Member Role: Primary Care Nurse Name: Keenan Vincent RN Position: [facility] RN Member Role: Primary Care Nurse Name: Sasha Patricio RN Position: [facility] RN Member Role: Primary Care Nurse Name: Virgie Angel Position: [facility] RN Member Role: Primary Care Nurse Name: Azeb Gusman RN Position: [facility] RN Member Role: Primary Care Nurse Name: Meredith Martinez RN Position: [facility] RN Member Role: Primary Care Nurse Name: Anika Gotti RN Position: [facility] RN Supv Member Role: Primary Care Nurse Name: Kennedi Roca RN Position: [facility] RN Member Role: Primary Care Nurse Name: Justina Walker RN Position: [facility] RN Member Role: Primary Care Nurse Name: Kenia Zuniga RN Position: [facility] PCO w/OE and EZ Script Member Role: Primary Care Nurse Name: Ivone Hidalgo RN Position: [facility] RN Member Role: Primary Care Nurse Name: Mazin Penn MD Position: [facility] Psychiatry MD Member Role: Lifetime Consulting Physician Address: Address: [address] [place] [address]- [place] Care Team Related Persons Name: STEW PECK Address: [address] [place] [address] Name: PETER BOBO Address: [address] [place] [address] Name: PRISCA WESTON Address: [address] [place] [address]
--- OUTSIDE RECORDS SUMMARY | 2023-08-16 12:27 | XMS_ITS | Continuity of Care Document ---
Author Name Unknown Organization [facility] Address [address] [place] [address] [address] [place] [address]- Care Team Providers Care Curing Finisher Name Role Phone Fatoumata Stokes DO Primary Care Physician [facility]): 06/16/22 - 07/29/[address] [place] [address]- Attending Physician: Alan Busby MD Allergies, Adverse Reactions, Alerts Substance Reaction [...] 05/28/21 7:42:00 EDT, Route to Pharmacy Electronically, [facility]/pharmacy #[id number], 164, cm,04/07/21 15:35:00 EDT, Height, 112, kg, 10/14/20 10... Start Date: 05/28/21 Status: Ordered benztropine 1 mg oral tablet 1 mg, 1, tablet, By Mouth, 2 times a day, # 60 tablet, Refills 0, Tot. Refills 0, Maintenance, 04/07/20 16:15:00 EDT, Route to Pharmacy Electronically, [facility]/pharmacy #[id number], 163, cm, 01/01/20 14:39:00 EDT, Height, 86.5, kg, 12/19/19 19:14:00 EDT, Dry We... Start Date: 01/01/20 Stop Date: 01/31/20 Status: Ordered cetirizine 10 mg oral tablet 1 tablet, By Mouth, Daily, # 30 tablet, 2 Refills, Maintenance, 07/12/22 10:38:00 EDT, [facility], 162, cm, 06/18/22 11:49:00 EDT, Height, 100, kg, 06/16/22 6:50:00 EDT, Dry Weight Start Date: 07/12/22 Status: Ordered docusate sodium 100 mg oral capsule 1 capsule, By Mouth, 2 times a day, # 60 capsule, 5 Refills, [facility], 163, cm, 09/24/21 16:23:00 EST, Height, 112, kg, 10/14/20 10:13:00 EST, Dry Weight Start Date: 02/03/22 Status: Ordered Estradiol Patch 0.1 mg/24 hours twice weekly transdermal film, extended release See Instructions, APPLY 1 PATCH TOPICALLY EVERY TUESDAY & TUESDAY, # 24 patch, 4 Refills, [facility], 84, APPLY 1 PATCH TOPICALLY EVERY TUESDAY [...] 0 Refills, Maintenance, 01/01/20 16:16:00 EDT, Capsule, [facility]/pharmacy #[id number], 163, cm, 01/01/20 14:39:00 EDT, Height, 86.5, kg, 12/19/19 19:14:00 EDT, Dry Weight Start Date: 01/01/20 Stop Date: 03/01/20 Status: Ordered medroxyPROGESTERone 150 mg/mL intramuscular suspension 1 mL, Intramuscular, Every 3 months, # 1 mL, 3 Refills, Soft Stop, 03/13/21 13:05:00 EDT, [facility]/pharmacy #[id number], 164, cm, 03/13/21 9:51:00 EDT, Height, 112, kg, 10/14/20 10:13:00 EST, Dry Weight Start Date: 03/13/21 Status: Ordered omeprazole 20 mg oral enteric coated capsule 1 capsule, By Mouth, Daily, # 90 capsule, 0 Refills, [facility] 77[facility], 163, cm, 09/24/21 16:23:00 EST, Height, 112, [...] AT BEDTIME NEEDED, #48 capsule, 11 Refills, [email or web address], 163, cm, 09/24/21 16:23:00 EST, Height, 112, [...] Personnel Name: Fatoumata Stokes DO Address: Address: [address] [place] [address] Adult & Pediatric Medicine [place], [place] [address]
--- OUTSIDE RECORDS SUMMARY | 2023-08-16 12:27 | XMS_ITS | Continuity of Care Document ---
Author Name Unknown Organization [facility] Address [address] [place] [address]- Care Team Providers Care Electrical Engineering Drafting Officer Name Role Phone Fatoumata Stokes DO Primary Care Physician Encounter [facility] Date(s): 05/26/23 - 08/06/23 [facility] [address] [place], [place] [address] Attending Physician: Fatoumata Stokes DO [...] tablet, Refills 0, Tot. Refills 0, Maintenance, 07/19/23 13:48:00 EDT, Route to Pharmacy Electronically, [facility], Partial fill upon patient request ifthe prescription is for a schedule II opioid drug.,... Start Date: 07/19/23 Stop Date: 08/18/23 Status: Ordered cetirizine 10 mg oral tablet [...] 0 Refills, Maintenance, 07/05/23 0:27:00 EDT, [facility], Partial fill upon patient request if the [...] drug. Start Date: 07/05/23 Status: Ordered lithium 600 mg oral capsule 1 capsule = 600 mg, By Mouth, 2 times a day, # 60 capsule, 0 Refills, Maintenance, 07/19/23 13:49:00 EDT, Capsule, [facility], Partial fill upon patient request if the prescription is for aschedule II opioid drug., 163, cm, 07/19/23 9:15:00... Start Date: 07/19/23 Stop Date: 08/18/23 Status: Ordered Maalox Plus Liquid 30 mL, [...] opioid drug. Start Date: 07/05/23 Status: Ordered prazosin 1 mg oral capsule 1 mg, 1, capsule, By Mouth, Daily at bedtime, # 30 capsule, Refills 0, Tot. Refills 0, Maintenance,07/19/23 13:53:00 EDT, Route to Pharmacy Electronically, [facility], Partial fill upon patient request if the prescription is for a schedule... Start Date: 07/19/23 Stop Date: 08/18/23 Status: Ordered traZODone 50 mg oral tablet 50 mg, 1, tablet, By Mouth, Daily at bedtime, # 30 tablet, Refills 0, Tot. Refills 0, Maintenance, 07/19/23 13:53:00 EDT, Route to Pharmacy Electronically, [facility], Partial fill upon patient request if the prescription is for a schedule I... Start Date: 07/19/23 Stop Date: 08/18/23 Status: Ordered Tums 500 mg oral tablet, chewable 500 mg, 1, tablet, Chew, Every 4 hours, PRN, Refills 0, Maintenance, Dyspepsia, 07/05/23 0:27:00 EDT, Partial fill upon patient request if the prescription is for a schedule II opioid drug. Start Date: 07/05/23 Status: Ordered ZyPREXA 10 mg oral tablet 10 mg, 1, tablet, By Mouth, Daily at bedtime, # 30 tablet, Refills 0, Tot. Refills 0, Maintenance, 07/19/23 13:50:00 EDT, Route to Pharmacy Electronically, [facility], Partial fill upon patient request if the prescription is for a schedule I... Start Date: 07/19/23 Stop Date: 08/18/23 Status: Ordered ZyPREXA 5 mg oral tablet 5 mg, 1, tablet, By Mouth, Daily in AM, # 30 tablet, Refills 0, Tot. Refills 0, Maintenance, 07/19/23 13:50:00 EDT, Route to Pharmacy Electronically, [facility], Partial fill upon patient request if the prescription is for a schedule II opio... Start Date: 07/19/23 Stop Date: 08/18/23 Status: Ordered Problem List Condition Confirmation Course [...] History Social History Type Response Smoking Status 5-9 cigarettes (betw een 1/4 to 1/2 pack)/day in last 30 days; Interested in cessation: No; Patient wants NRT during admission Yes; Other: will accept nicotine gum; entered on: 07/14/23 Sex History and physical note * Event Display: History and Physical Hospital Authored Date: [id number] [place], [place] PSYCHIATRIC HISTORY ASSESS EXAM NAME: LORETTA CELESTIN : 89 MR#: [id number] PCP: ADMITTED: 12/20/15 DATE OF SERVICE: 12/20/15 HPI - Hosp Psych H P Chief Complaint Pt was [place] [facility] [place] for hallunication History of Present Illness 24 yo AA Female with known schizophrenia was seen at [facility] for hallucination. Apparently pt has been lived in usp and sent to [facility] for acute exacerbation of [...] QDAY Haloperidol* (Haldol*) 5 MG PO BID [place] Carbonate SR* (Lithobid*) 300 MG PO QDAY liTHIum Carbonate SR* ([place] Carbonate SR*) 450 MG PO 4PM Discontinued Reported Medications Citalopram* (CeleXA*) 40 MG PO QDAY Benztropine* 0.5 MG PO BID buPROPion SR* 150 MG PO [id number] Trazodone* (Desyrel*) 100 MG PO HS RisperiDONE* [...] 324 MG QDAY 12/20 0900 CKD PO [place] Carbonate 300 MG QDAY 12/20 0900 AC PO Polyethylene Glycol 17 GM QDAY 12/20 09 CKD PO Benztropine Mesylate 1 MG 0900,1700 12/19 1700 AC PO Docusate Sodium 100 MG 0900,1700 12/19 1700 AC PO Haloperidol 5 MG 0900,1700 12/19 1700 AC PO [place] Carbonate 450 MG PM 12/19 1700 AC PO Risperidone 0.5 MG 899,12/19 1700 AC PO Senna 17.2 MG 09,12/19 1700 AC PO Acetaminophen 650 MG PRN4H [...] fullly ambulartory Care Level Complexity of Care E04502 Comprehensive history, comprehensive examination, medical decision making of low complexity, at least 20 minutes at the bedside, patient's floor/ unit. ESigned by: YAS GARZA MD Date:12/21/15 Time:1633 / NOT FOR REDISCLOSURE WITHOUT PATIENT'S INFORMED CONSENT Admission evaluation note * Event Display: Admit Notes Authored Date: [id number] [place], [place] PSYCHIATRIC ADMISSION NOTE NAME: LORETTA CELESTIN : 89 HOSPITAL #: [id number] MR #: [id number] CHART LOC: PCP: DICTATING: MARIA R Robin MD DATE OF ADMISSION: 12/20/15 DATE OF SERVICE: 12/21/15 CHIEF COMPLAINT: This 23-year-old woman was admitted to [facility] on 12/20/15 on a Conditional Voluntary [...] is living in a usp. Came to [place] with her grandmother in 2013, was very [...] year NAME: LORETTA CELESTIN : 89 HOSP#: [id number] MR#: [id number] CHART LOC: PCP: DICTATING: MARIA R Robin MD PSYCHIATRIC ADMISSION NOTE CONTINUED: unknown. TREATMENT PLAN: Resume outpatient medications, physical exam, collateral contact with community caregivers and social network, safety plan, aftercare plan and observe. 927 T:sn DD:[id number] TD:0745 DT:[id number] TT:0924 JOB:[id number] MICHELLE/SHANNON MARIA R Robin MD ESigned by: Date:12/22/15 Time:642 NOT FOR REDISCLOSURE WITHOUT PATIENT'S INFORMED CONSENT Patient Care team information Care Team Personnel Name: Dean Rivas RN Position: [facility] RN Member Role: Primary Care Nurse Name: Tian Naylor RN Position: [facility] RN Member Role: Primary Care Nurse Name: Jolanta Ace RN Position: [facility] RN Supv Member Role: Primary Care Nurse Name: Fatoumata Stokes DO Position: [facility] Physician - Primary Care Member Role: PCP Address: Address: [address] [place] [address] Adult [place] [address]- Name: Britt Polanco RN Position: [facility] RN Member Role: Primary Care Nurse Name: Awilda Grider RN Position: [facility] RN Member Role: Primary Care Nurse Name: Meagan Darden RN Position: [facility] RN Member Role: Primary Care Nurse Name: Chintan Leach DO Position: [facility] Renal MD Member Role: Lifetime Consulting Physician Address: Address: [address] [place], [place] [address] [place] [address]- Name: Chandler Ye RN Position: [facility] RN Member Role: Primary Care Nurse Name: Apurva Ji RN Position: [facility] ED RN W/OE and Tasks Member Role: Primary Care Nurse Name: Cordelia Matias RN Position: [facility] AMB Nurse Member Role: Primary Care Nurse Name: Riya Moore RN Position: [facility] RN Member Role: Primary Care Nurse Name: Radha Gutierrez Position: [facility] Outreach Member Role: Primary Care Nurse Name: Keenan Vincent RN Position: [facility] SN RN Member Role: Primary Care Nurse Name: Sasha Patricio RN Position: [facility] RN Member Role: Primary Care Nurse Name: Virgie Angel Position: [facility] RN Member Role: Primary Care Nurse Name: Emma Kaminski RN Position: [facility] RN Member Role: Primary Care Nurse Name: Malu Palomo Position: [facility] RN Member Role: Primary Care Nurse Name: Azeb Gusman RN Position: [facility] RN Member Role: Primary Care Nurse Name: Asher Diaz RN Position: [facility] RN Member Role: Primary Care Nurse Name: Kim Cornell RN Position: [facility] RN Member Role: Primary Care Nurse Name: Meredith Martinez RN Position: [facility] RN Member Role: Primary Care Nurse Name: Anika Gotti RN Position: [facility] RN Member Role: Primary Care Nurse Name: Rafiq Muñoz RN Position: [facility] RN Member Role: Primary Care Nurse Name: Justina Walker RN Position: [facility] RN Member Role: Primary Care Nurse Name: Ivone Hidalgo RN Position: [facility] RN Member Role: Primary Care Nurse Name: Mazin Penn MD Position: [facility] Physician - Behavioral Health Member Role: Lifetime Consulting Physician Address: Address: [address] [place] [address] [place] Care Team Related Persons Name: DORITA MCCOLLUM Address: [address] [place] [address] Name: STEW PECK Address: home [address] [facility], [address] Name: LISA PALMA Address: [address] [place] [address]
--- OUTSIDE RECORDS SUMMARY | 2023-08-16 12:27 | XMS_ITS | Continuity of Care Document ---
Author Name Unknown Organization [facility] Address [address] [place] [address]- Care Team Providers Care Entertainment Production Professional Name Role Phone Fatoumata Stokes DO Primary Care Physician ( [phone] Encounter [facility] Date(s): 01/13/23 - 02/12/23 [facility] [address] [place], [place] [address] Attending Physician: Jada Torres Admitting Physician: [...] 09/29/22 9:09:00 EST, Route to Pharmacy Electronically, [id number], 163, cm, 09/14/22 8:12:00 EST, Height, 87.9, kg, 09/09/22 12:06:00 EST, Dry Weight Start Date: 09/29/22 Status: Ordered benztropine 1 mg oral tablet 1 mg, 1, tablet, By Mouth, 2 times a day, # 60 tablet, Refills 0, Tot. Refills 0, Maintenance, 09/14/22 13:02:00 EST, Route to Pharmacy Electronically, [facility], 163, cm, 09/14/22 8:12:00 EST, Height, 87.9, kg, 09/09/22 12:06:00 EST, D... Start Date: 09/14/22 Stop Date: 10/14/22 Status: Ordered cetirizine 10 mg oral tablet 1 tablet, By Mouth, Daily, # 30 tablet, 0 Refills, Maintenance, 09/14/22 13:03:00 EST, [facility], 163, cm, 09/14/22 8:12:00 EST, Height, 87.9, kg, 09/09/22 12:06:00 EST, Dry Weight Start Date: 09/14/22 Status: Ordered docusate sodium 100 mg oral capsule 1 capsule, By Mouth, 2 times a day, # 60 capsule, 11 Refills, 10/06/22 16:34:00 EST, [facility]/pharmacy #[id number], 163, cm, 09/14/22 8:12:00 EST, Height, 87.9, kg, 09/09/22 12:06:00 EST, Dry Weight Start Date: 10/06/22 Status: Ordered estradiol 0.1 mg/24 hours twice weekly transdermal film, extended release See Instructions, apply 1 patch Topically every tuesday and , # 24 patch, 0 Refills, Maintenance, 11/24/22 12:36:00 EST, [facility]/pharmacy #[id number], Partial fill upon patient request if the prescription is for a schedule II opioid drug., 162, cm, 11/23... Start Date: 11/24/22 Status: Ordered Estradiol Patch 0.1 mg/24 hours twice weekly transdermal film, extended release See Instructions, APPLY 1 PATCH TOPICALLY EVERY TUESDAY & TUESDAY, # 8 patch, 0 Refills, 09/14/22 13:03:00 EST, [facility], APPLY 1 PATCH TOPICALLY EVERY TUESDAY & TUESDAY, 163,cm, 09/14/22 8:12:00 EST, Height, 87.9, kg, 09/09/22 12:06:... Start Date: 09/14/22 Status: Ordered ferrous sulfate 325 mg oral enteric coated tablet 1, tablet, By Mouth, Every other day, may take with food to minimize abdominal discomfort, # 15 tablet, Refills 0, Tot. Refills 0, 09/14/22 13:04:00 EST, Route to Pharmacy Electronically, [facility], 163, cm, 09/14/22 8:12:00 [...] 0 Refills, Maintenance, 09/14/22 13:05:00 EST, Tablet, [facility], Partial fill upon patient request if the prescription is for a schedule II opioid drug., 163, cm, 09/14/22 8:12:0... Start Date: 09/14/22 Status: Ordered medroxyPROGESTERone 150 mg/mL intramuscular suspension 1 mL, Intramuscular, Every 3 months, # 1 mL, 3 Refills, Soft Stop, 03/13/21 13:05:00 EDT, [facility]/pharmacy #[id number], 164, cm, 03/13/21 9:51:00 EDT, Height, 112, kg, 10/14/20 10:13:00 EST, Dry Weight Start Date: 03/13/21 Status: Ordered olanzapine 2.5 mg oral tablet 2.5 mg, 1, tablet, By Mouth, Daily, PRN, Agitation/Psychosis, # 14 tablet, Refills 1, Tot. Refills 1, Maintenance, Other, 10/16/22 12:36:00 EST, Route to Pharmacy Electronically, [facility]/pharmacy #[id number], Partial fill upon patient request if the prescriptio... Start Date: 10/16/22 Stop Date: 11/13/22 Status: Ordered omeprazole 20 mg oral enteric coated capsule 1 capsule, By Mouth, Daily, # 90 capsule, 0 Refills, [id number], 163, cm, 09/24/21 16:23:00 EST, Height, 112, kg, 10/14/20 10:13:00 EST, Dry Weight Start Date: 03/04/22 Status: Ordered perphenazine 16 mg oral tablet 16 mg, 1, tablet, By Mouth, 2 times a day, take with 4mg tablet for a total dose of 20 mg 2 times daily, # 60 tablet, Refills 0, Tot. Refills 0, Maintenance, 09/14/22 13:06:00 EST, Route to Pharmacy Electronically, [facility], Partial fi... Start Date: 09/14/22 Status: Ordered perphenazine 4 mg oral tablet 4 mg, 1, tablet, By Mouth, 2 times a day, take with 16 mg tablet for a total dose of 20 mg 2 times daily, # 60 tablet, Refills 0, Tot. Refills 0, Maintenance, 09/14/22 13:06:00 EST, Route to PharmacyElectronically, [facility], Partial f... Start Date: 09/14/22 Status: Ordered perphenazine 8 mg oral tablet 8 mg, 1, tablet, By Mouth, Daily, at 12 PM, # 30 tablet, Refills 0, Tot. Refills 0, Maintenance, 09/14/22 13:06:00 EST, Route to Pharmacy Electronically, [facility], Partial fill upon patient request if the prescription is for a schedule... Start Date: 09/14/22 Status: Ordered Senna 8.6 mg oral tablet 8.6 mg, 1, tablet, By Mouth, Daily at bedtime, # 30 tablet, Refills 0, Tot. Refills 0, Maintenance,09/14/22 13:06:00 EST, Route to Pharmacy Electronically, [facility] Tablet, Partial fill upon patient request if the prescription is for... Start Date: 09/14/22 Status: Ordered simethicone 125 mg oral capsule See Instructions, TAKE 1 CAPSULE BY MOUTH THREE TIMES A DAY AFTER MEALS AND AT BEDTIME NEEDED, #48 capsule, 11 Refills, Maintenance, 09/24/22 18:10:00 EST, [id number], 163, cm, 09/14/22 8:12:00 EST, Height, 87.9, kg, 09/09/22 12:06:00 EST, Start Date: 09/24/22 Status: Ordered ZyPREXA 2.5 mg oral tablet 2.5 mg, 1, tablet, By Mouth, Daily at bedtime, # 14 tablet, Refills 0, Tot. Refills 0, Maintenance,10/16/22 11:51:00 EST, Route to Pharmacy Electronically, [facility]/pharmacy #[id number], Partial fill upon patient request if the [...] Display: History and Physical Hospital Authored Date: [id number] [place], [place] PSYCHIATRIC HISTORY ASSESS EXAM NAME: LORETTA CELESTIN : 89 MR#: [id number] PCP: ADMITTED: 12/20/15 DATE OF SERVICE: 12/20/15 HPI - Hosp Psych H P Chief Complaint Pt was sent from [facility] ER here for hallunication History of Present Illness 24 yo AA Female with known schizophrenia was seen at [facility] for hallucination. Apparently pt has been lived in longterm and sent to [facility] for acute exacerbation of her [...] QDAY Haloperidol* (Haldol*) 5 MG PO BID [place] Carbonate SR* (Lithobid*) 300 MG PO QDAY liTHIum Carbonate SR* ([place] Carbonate SR*) 450 MG PO 4PM Discontinued Reported Medications Citalopram* (CeleXA*) 40 MG PO QDAY Benztropine* 0.5 MG PO BID buPROPion SR* 150 MG PO [id number] Trazodone* (Desyrel*) 100 MG PO HS RisperiDONE* [...] 324 MG QDAY 12/20 09 CKD PO [place] Carbonate 300 MG QDAY 12/20 09 AC PO Polyethylene Glycol 17 GM QDAY 12/20 09 CKD PO Benztropine Mesylate 1 MG 0900,1700 12/19 1700 AC PO Docusate Sodium 100 MG 0900,1700 12/19 1700 AC PO Haloperidol 5 MG 0900,1700 12/19 1700 AC PO [place] Carbonate 450 MG PM 12/19 1700 AC PO Risperidone 0.5 MG 0900,1700 12/19 1700 AC PO Senna 17.2 MG 0900,17012/19 1700 AC PO Acetaminophen 650 MG PRN4H [...] fullly ambulartory Care Level Complexity of Care W40045 Comprehensive history, comprehensive examination, medical decision making of low complexity, at least 20 minutes at the bedside, patient's floor/ unit. ESigned by: YAS GARZA MD Date:12/21/15 Time:1633 / NOT FOR REDISCLOSURE WITHOUT PATIENT'S INFORMED CONSENT Admission evaluation note * Event Display: Admit Notes Authored Date: [id number] [place], [place] PSYCHIATRIC ADMISSION NOTE NAME: LORETTA CELESTIN : 89 HOSPITAL #: [id number] MR #: [id number] CHART LOC: PCP: DICTATING: MARIA R Robin MD DATE OF ADMISSION: 12/20/15 DATE OF SERVICE: 12/21/15 CHIEF COMPLAINT: This 23-year-old woman was admitted to [facility] on 12/20/15 on a Conditional Voluntary application because of suicidal ideation. HISTORY OF PRESENT ILLNESS: The patient has been treated for schizoaffective disorder depressed type, posttraumatic stress disorder, intellectual disability and alcohol syndrome with multiple hospitalizations for self-harming behavior and suicidal ideation. She presented to Crisis Services from her longterm reporting that she was having urges to [...] how they had evolved. Staff at the longterm where she lives reported her as unusually [...] HISTORY: The patient is living in a longterm. Came to [place] with her grandmother in 2013, was very [...] year NAME: LORETTA CELESTIN : 89 HOSP#: [id number] MR#: [id number] CHART LOC: PCP: DICTATING: MARIA R Robin MD PSYCHIATRIC ADMISSION NOTE CONTINUED: unknown. TREATMENT PLAN: Resume outpatient medications, physical exam, collateral contact with community caregivers and social network, safety plan, aftercare plan and observe. 927 T: DD:[id number] TD:0745 DT:20151221 TT:0924 JOB:[id number] MICHELLE/SHANNON MARIA R Robin MD ESigned by: Date:12/22/15 Time:642 NOT FOR REDISCLOSURE WITHOUT PATIENT'S INFORMED CONSENT Patient Care team information Care Team Personnel Name: Dean Rivas RN Position: [facility] RN Member Role: Primary Care Nurse Name: Fatoumata Stokes DO Position: [facility] Primary Care Physician Member Role: PCP Address: Address: [address] [place] [address] Adult & [place] [address]- Name: Britt Polanco RN Position: [facility] RN Member Role: Primary Care Nurse Name: Anyi Avendano RN Position: [facility] RN Supv Member Role: Primary Care Nurse Name: Awilda Grider RN Position: [facility] RN Member Role: Primary Care Nurse Name: Chintan Leach DO Position: [facility] Renal MD Member Role: Lifetime Consulting Physician Address: Address: [address] [place], [place] [address] [place] [address]- Name: Chandler Ye RN Position: [facility] RN Member Role: Primary Care Nurse Name: Apurva Ji RN Position: [facility] ED RN W/OE and Tasks Member Role: Primary Care Nurse Name: Cordelia Matias RN Position: [facility] AMB Nurse Member Role: Primary Care Nurse Name: Radha Gutierrez Position: [facility] Outreach Member Role: Primary Care Nurse Name: Keenan Vincent RN Position: [facility] RN Member Role: Primary Care Nurse Name: Sasha Patricio RN Position: [facility] RN Member Role: Primary Care Nurse Name: Virgie Angel Position: [facility] RN Member Role: Primary Care Nurse Name: Azeb Gusman RN Position: [facility] RN Member Role: Primary Care Nurse Name: Meredith Martinez RN Position: [facility] RN Member Role: Primary Care Nurse Name: Anika Gotti RN Position: [facility] RN Supv Member Role: Primary Care Nurse Name: Justina Walker RN Position: [facility] RN Member Role: Primary Care Nurse Name: Kenia Zuniga RN Position: [facility] PCO w/OE and EZ Script Member Role: Primary Care Nurse Name: Ivone Hidalgo RN Position: [facility] RN Member Role: Primary Care Nurse Name: Mazin Penn MD Position: [facility] Psychiatry MD Member Role: Lifetime Consulting Physician Address: Address: [address] [place] [address]- Care Team Related Persons Name: DORITA HERNANDEZ Address: [address] [place] [address] Name: STEW PECK Address: [address] [place] [address] Name: LOUIE PRECAST WORKERPETER Address: [address] [place] [address]
--- OUTSIDE RECORDS SUMMARY | 2023-08-16 12:27 | XMS_ITS | Continuity of Care Document ---
Author Name Unknown Organization [facility] Address [address] [place] [address]- Care Team Providers Care Hat Cone Inspector Name Role Phone Fatoumata Stokes DO Primary Care Physician ( [phone] [facility]counter [facility] Date(s): 07/05/23 - 08/04/23 [facility] [address] [place], [place] [address] Allergies, Adverse Reactions, Alerts Substance Reaction Severity [...] 07/19/23 13:48:00 EDT, Route to Pharmacy Electronically, [facility], Partial fill upon patient request ifthe [...] 0 Refills, Maintenance, 07/05/23 0:27:00 EDT, [facility], Partial fill upon patient request if the [...] 0 Refills, Maintenance, 07/19/23 13:49:00 EDT, Capsule, [facility], Partial fill upon patient request if [...] Maintenance,07/19/23 13:53:00 EDT, Route to Pharmacy Electronically, [facility], Partial fill upon patient request if the prescription is for a schedule... Start Date: 07/19/23 Stop Date: 08/18/23 Status: Ordered traZODone 50 mg oral tablet 50 mg, 1, tablet, By Mouth, Daily at bedtime, # 30 tablet, Refills 0, Tot. Refills 0, Maintenance, 07/19/23 13:53:00 EDT, Route to Pharmacy Electronically, [facility], Partial fill upon patient request if [...] 07/19/23 13:50:00 EDT, Route to Pharmacy Electronically, [facility], Partial fill upon patient request if the prescription is for a schedule I... Start Date: 07/19/23 Stop Date: 08/18/23 Status: Ordered ZyPREXA 5 mg oral tablet 5 mg, 1, tablet, By Mouth, Daily in AM, # 30 tablet, Refills 0, Tot. Refills 0, Maintenance, 07/19/23 13:50:00 EDT, Route to Pharmacy Electronically, [facility], Partial fill upon patient request if [...] Display: History and Physical Hospital Authored Date: [id number] [place], [place] PSYCHIATRIC HISTORY ASSESS EXAM NAME: LORETTA CELESTIN : 89 MR#: [id number] PCP: ADMITTED: 12/20/15 DATE OF SERVICE: 12/20/15 HPI - Hosp Psych H P Chief Complaint Pt was sent from [facility] here for hallunication History of Present Illness 24 yo AA Female with known schizophrenia was seen at [facility] for hallucination. Apparently pt has been lived in [facility]ci and sent to [facility] for acute exacerbation of her underline schizophrenia. [...] QDAY Haloperidol* (Haldol*) 5 MG PO BID [place] Carbonate SR* (Lithobid*) 300 MG PO QDAY liTHIum Carbonate SR* ([place] Carbonate SR*) 450 MG PO 4PM Discontinued Reported Medications Citalopram* (CeleXA*) 40 MG PO QDAY Benztropine* 0.5 MG PO BID buPROPion SR* 150 MG PO [id number] Trazodone* (Desyrel*) 100 MG PO HS RisperiDONE* [...] 324 MG QDAY 12/20 0900 CKD PO [place] Carbonate 300 MG QDAY 12/20 0900 AC PO Polyethylene Glycol 17 GM QDAY 12/20 0900 CKD PO Benztropine Mesylate 1 MG 0900,1700 12/19 1700 AC PO Docusate Sodium 100 MG 0900,1700 12/19 1700 AC PO Haloperidol 5 MG 0900,1700 12/19 1700 AC PO [place] Carbonate 450 MG PM 12/19 1700 AC [...] fullly ambulartory Care Level Complexity of Care [id number] Comprehensive history, comprehensive examination, medical decision making of low complexity, at least 20 minutes at the bedside, patient's floor/ unit. ESigned by: YAS GARZA MD Date:12/21/15 Time:1633 / NOT FOR REDISCLOSURE WITHOUT PATIENT'S INFORMED CONSENT Admission evaluation note * Event Display: Admit Notes Authored Date: [id number] [place], [place] PSYCHIATRIC ADMISSION NOTE NAME: LORETTA CELESTIN : 89 HOSPITAL #: [id number] MR #: [id number] CHART LOC: PCP: DICTATING: MARIA R Robin MD DATE OF ADMISSION: 12/20/15 DATE OF SERVICE: 12/21/15 CHIEF COMPLAINT: This 23-year-old woman was admitted to [facility] on 12/20/15 on a Conditional Voluntary application because of suicidal ideation. HISTORY OF PRESENT ILLNESS: The patient has been treated for schizoaffective disorder depressed type, posttraumatic stress disorder, intellectual disability and alcohol syndrome with multiple hospitalizations for self-harming behavior and suicidal ideation. She presented to Crisis Services from her fci reporting that she was having urges to [...] how they had evolved. Staff at the fci where she lives reported her as unusually [...] HISTORY: The patient is living in a fci. Came to [place] with her grandmother in 2013, was very [...] year NAME: LORETTA CELESTIN : 89 HOSP#: [id number] MR#: [id number] CHART LOC: PCP: DICTATING: MARIA R Robin MD PSYCHIATRIC ADMISSION NOTE CONTINUED: unknown. TREATMENT PLAN: Resume outpatient medications, physical exam, collateral contact with community caregivers and social network, safety plan, aftercare plan and observe. 927 T:sn DD:[id number] TD:0745 DT:20151221 TT:0924 JOB:[id number] MICHELLE/SHANNON MARIA R Robin MD ESigned by: Date:12/22/15 Time:642 NOT FOR REDISCLOSURE WITHOUT PATIENT'S INFORMED CONSENT Patient Care team information Care Team Personnel Name: Daen Rivas RN Position: [facility] RN Member Role: Primary Care Nurse Name: Tian Naylor RN Position: [facility] RN Member Role: Primary Care Nurse Name: Jolanta Ace RN Position: [facility] RN Supv Member Role: Primary Care Nurse Name: Fatoumata Stokes DO Position: [facility] Physician - Primary Care Member Role: PCP Address: Address: [address] [place] [address] Adult [place] [address]- Name: Britt Polanco RN Position: [facility] RN Member Role: Primary Care Nurse Name: Awilda Grider RN Position: [facility] RN Member Role: Primary Care Nurse Name: Meagan Darden RN Position: [facility] RN Member Role: Primary Care Nurse Name: Chintan Leach DO Position: [facility] Renal MD Member Role: Lifetime Consulting Physician Address: Address: [address] [place], [place] [address] [place], [place] [address] Name: Chandler Ye RN Position: [facility] RN Member Role: Primary Care Nurse Name: Apurva Ji RN Position: [facility] ED RN W/OE and Tasks Member Role: Primary Care Nurse Name: Cordelia Matias RN Position: [facility] AMB Nurse Member Role: Primary Care Nurse Name: Riya Moore RN Position: [facility] RN Member Role: Primary Care Nurse Name: Radha Gutierrez Position: [facility] Outreach Member Role: Primary Care Nurse Name: Keenan Vincent RN Position: [facility] SN RN Member Role: Primary Care Nurse Name: Sasha Patricio RN Position: [facility] RN Member Role: Primary Care Nurse Name: Virgie Angel Position: [facility] RN Member Role: Primary Care Nurse Name: Emma Kaminski RN Position: [facility] RN Member Role: Primary Care Nurse Name: Malu Palomo Position: [facility] RN Member Role: Primary Care Nurse Name: Azeb Gusman RN Position: [facility] RN Member Role: Primary Care Nurse Name: Asher Diaz RN Position: [facility] RN Member Role: Primary Care Nurse Name: Kim Cornell RN Position: [facility] RN Member Role: Primary Care Nurse Name: Meredith Martinez RN Position: [facility] RN Member Role: Primary Care Nurse Name: Anika Gotti RN Position: [facility] RN Member Role: Primary Care Nurse Name: Rafiq Muñoz RN Position: [facility] RN Member Role: Primary Care Nurse Name: Justina Walker RN Position: [facility] RN Member Role: Primary Care Nurse Name: Ivone Hidalgo RN Position: [facility] RN Member Role: Primary Care Nurse Name: Mazin Penn MD Position: [facility] Physician - Behavioral Health Member Role: Lifetime Consulting Physician Address: Address: [address] [place] [address] [place] Care Team Related Persons Name: CHUN DORITA Address: [address] [place] [address] Name: STEW PECK Address: home [address] [facility], [address] Name: LISA PALMA Address: home [address] [place] [address]
--- OUTSIDE RECORDS SUMMARY | 2023-08-16 12:28 | XMS_ITS | Continuity of Care Document ---
Author Name Unknown Organization [facility] Address [address] [place] [address]- Care Team Providers Care Title Supervisor Name Role Phone Fatoumata Stokes DO Primary Care Physician [facility]s): 10/15/22 - 02/12/23 [facility] [address] [place], [place] [address] Attending Physician: [...] 09/29/22 9:09:00 EST, Route to Pharmacy Electronically, [id number], 163, cm, 09/14/22 8:12:00 EST, Height, 87.9, kg, 09/09/22 12:06:00 EST, Dry Weight Start Date: 09/29/22 Status: Ordered benztropine 1 mg oral tablet 1 mg, 1, tablet, By Mouth, 2 times a day, # 60 tablet, Refills 0, Tot. Refills 0, Maintenance, 09/14/22 13:02:00 EST, Route to Pharmacy Electronically, [facility], 163, cm, 09/14/22 8:12:00 EST, Height, 87.9, kg, 09/09/22 12:06:00 EST, D... Start Date: 09/14/22 Stop Date: 10/14/22 Status: Ordered cetirizine 10 mg oral tablet 1 tablet, By Mouth, Daily, # 30 tablet, 0 Refills, Maintenance, 09/14/22 13:03:00 EST, [facility], 163, cm, 09/14/22 8:12:00 EST, Height, 87.9, kg, 09/09/22 12:06:00 EST, Dry Weight Start Date: 09/14/22 Status: Ordered docusate sodium 100 mg oral capsule 1 capsule, By Mouth, 2 times a day, # 60 capsule, 11 Refills, 10/06/22 16:34:00 EST, [facility]/pharmacy #[id number], 163, cm, 09/14/22 8:12:00 EST, Height, 87.9, kg, 09/09/22 12:06:00 EST, Dry Weight Start Date: 10/06/22 Status: Ordered estradiol 0.1 mg/24 hours twice weekly transdermal film, extended release See Instructions, apply 1 patch Topically every tuesday and , # 24 patch, 0 Refills, Maintenance, 11/24/22 12:36:00 EST, [facility]/pharmacy #[id number], Partial fill upon patient request if the prescription is for a schedule II opioid drug., 162, cm, 11/23... Start Date: 11/24/22 Status: Ordered Estradiol Patch 0.1 mg/24 hours twice weekly transdermal film, extended release See Instructions, APPLY 1 PATCH TOPICALLY EVERY TUESDAY & TUESDAY, # 8 patch, 0 Refills, 09/14/22 13:03:00 EST, [facility], APPLY 1 PATCH TOPICALLY EVERY TUESDAY & TUESDAY, 163,cm, 09/14/22 8:12:00 EST, Height, 87.9, kg, 09/09/22 12:06:... Start Date: 09/14/22 Status: Ordered ferrous sulfate 325 mg oral enteric coated tablet 1, tablet, By Mouth, Every other day, may take with food to minimize abdominal discomfort, # 15 tablet, Refills 0, Tot. Refills 0, 09/14/22 13:04:00 EST, Route to Pharmacy Electronically, [facility], 163, cm, 09/14/22 8:12:00 [...] 0 Refills, Maintenance, 09/14/22 13:05:00 EST, Tablet, [facility], Partial fill upon patient request if the prescription is for a schedule II opioid drug., 163, cm, 09/14/22 8:12:0... Start Date: 09/14/22 Status: Ordered medroxyPROGESTERone 150 mg/mL intramuscular suspension 1 mL, Intramuscular, Every 3 months, # 1 mL, 3 Refills, Soft Stop, 03/13/21 13:05:00 EDT, [facility]/pharmacy #[id number], 164, cm, 03/13/21 9:51:00 EDT, Height, 112, kg, 10/14/20 10:13:00 EST, Dry Weight Start Date: 03/13/21 Status: Ordered olanzapine 2.5 mg oral tablet 2.5 mg, 1, tablet, By Mouth, Daily, PRN, Agitation/Psychosis, # 14 tablet, Refills 1, Tot. Refills 1, Maintenance, Other, 10/16/22 12:36:00 EST, Route to Pharmacy Electronically, [facility]/pharmacy #[id number], Partial fill upon patient request if the prescriptio... Start Date: 10/16/22 Stop Date: 11/13/22 Status: Ordered omeprazole 20 mg oral enteric coated capsule 1 capsule, By Mouth, Daily, # 90 capsule, 0 Refills, [id number], 163, cm, 09/24/21 16:23:00 EST, Height, 112, kg, 10/14/20 10:13:00 EST, Dry Weight Start Date: 03/04/22 Status: Ordered perphenazine 16 mg oral tablet 16 mg, 1, tablet, By Mouth, 2 times a day, take with 4mg tablet for a total dose of 20 mg 2 times daily, # 60 tablet, Refills 0, Tot. Refills 0, Maintenance, 09/14/22 13:06:00 EST, Route to Pharmacy Electronically, [facility], Partial fi... Start Date: 09/14/22 Status: Ordered perphenazine 4 mg oral tablet 4 mg, 1, tablet, By Mouth, 2 times a day, take with 16 mg tablet for a total dose of 20 mg 2 times daily, # 60 tablet, Refills 0, Tot. Refills 0, Maintenance, 09/14/22 13:06:00 EST, Route to PharmacyElectronically, [facility], Partial f... Start Date: 09/14/22 Status: Ordered perphenazine 8 mg oral tablet 8 mg, 1, tablet, By Mouth, Daily, at 12 PM, # 30 tablet, Refills 0, Tot. Refills 0, Maintenance, 09/14/22 13:06:00 EST, Route to Pharmacy Electronically, [facility], Partial fill upon patient request if the prescription is for a schedule... Start Date: 09/14/22 Status: Ordered Senna 8.6 mg oral tablet 8.6 mg, 1, tablet, By Mouth, Daily at bedtime, # 30 tablet, Refills 0, Tot. Refills 0, Maintenance,09/14/22 13:06:00 EST, Route to Pharmacy Electronically, [facility] 3 Tablet, Partial fill upon patient request if the prescription is for... Start Date: 09/14/22 Status: Ordered simethicone 125 mg oral capsule See Instructions, TAKE 1 CAPSULE BY MOUTH THREE TIMES A DAY AFTER MEALS AND AT BEDTIME NEEDED, #48 capsule, 11 Refills, Maintenance, 09/24/22 18:10:00 EST, [id number], 163, cm, 09/14/22 8:12:00 EST, Height, 87.9, kg, 09/09/22 12:06:00 EST, Start Date: 09/24/22 Status: Ordered ZyPREXA 2.5 mg oral tablet 2.5 mg, 1, tablet, By Mouth, Daily at bedtime, # 14 tablet, Refills 0, Tot. Refills 0, Maintenance,10/16/22 11:51:00 EST, Route to Pharmacy Electronically, [facility]/pharmacy #[id number], Partial fill upon patient request if the [...] Display: History and Physical Hospital Authored Date: [id number] [place], [place] PSYCHIATRIC HISTORY ASSESS EXAM NAME: LORETTA CELESTIN : 89 MR#: [id number] PCP: ADMITTED: 12/20/15 DATE OF SERVICE: 12/20/15 HPI - Hosp Psych H P Chief Complaint Pt was sent from [facility] here for hallunication History of Present Illness 24 yo AA Female with known schizophrenia was seen [place] [facility] [place]. Apparently pt has been lived in senior living and sent [place] [facility] [place] acute exacerbation of her underline schizophrenia. [...] QDAY Haloperidol* (Haldol*) 5 MG PO BID [place] Carbonate SR* (Lithobid*) 300 MG PO QDAY liTHIum Carbonate SR* ([place] Carbonate SR*) 450 MG PO 4PM Discontinued Reported Medications Citalopram* (CeleXA*) 40 MG PO QDAY Benztropine* 0.5 MG PO BID buPROPion SR* 150 MG PO [id number] Trazodone* (Desyrel*) 100 MG PO HS RisperiDONE* [...] 324 MG QDAY 12/20 0900 CKD PO [place] Carbonate 300 MG QDAY 12/20 0900 AC PO Polyethylene Glycol 17 GM QDAY 12/20 0900 CKD PO Benztropine Mesylate 1 MG 0900,1700 12/19 1700 AC PO Docusate Sodium 100 MG 0900,1700 12/19 1700 AC PO Haloperidol 5 MG 0900,1700 12/19 1700 AC PO [place] Carbonate 450 MG PM 12/19 1700 AC [...] fullly ambulartory Care Level Complexity of Care [id number] Comprehensive history, comprehensive examination, medical decision making of low complexity, at least 20 minutes at the bedside, patient's floor/ unit. ESigned by: YAS GARZA MD Date:12/21/15 Time:1633 / NOT FOR REDISCLOSURE WITHOUT PATIENT'S INFORMED CONSENT Admission evaluation note * Event Display: Admit Notes Authored Date: [id number] [place], [place] PSYCHIATRIC ADMISSION NOTE NAME: LORETTA CELESTIN : 89 HOSPITAL #: [id number] MR #: [id number] CHART LOC: PCP: DICTATING: MARIA R Robin MD DATE OF ADMISSION: 12/20/15 DATE OF SERVICE: 12/21/15 CHIEF COMPLAINT: This 23-year-old woman was admitted to [facility] on 12/20/15 on a Conditional [...] living in a senior living. Came to [place] with her grandmother in 2013, was very [...] year NAME: LORETTA CELESTIN : 89 HOSP#: [id number] MR#: [id number] CHART LOC: PCP: DICTATING: MARIA R Robin MD PSYCHIATRIC ADMISSION NOTE CONTINUED: unknown. TREATMENT PLAN: Resume outpatient medications, physical exam, collateral contact with community caregivers and social network, safety plan, aftercare plan and observe. 927 T:sn DD:[id number] TD:0745 DT:20151221 TT:0924 JOB:[id number] TORIE MARIA R Robin MD ESigned by: Date:12/22/15 Time:06 NOT FOR REDISCLOSURE WITHOUT PATIENT'S INFORMED CONSENT Patient Care team information Care Team Personnel Name: Dean Rivas RN Position: [facility] RN Member Role: Primary Care Nurse Name: Fatoumata Stokes DO Position: [facility] Primary Care Physician Member Role: PCP Address: Address: [address] [place] [address] Adult [place] [address]- Name: Britt Polanco RN Position: [facility] RN Member Role: Primary Care Nurse Name: Anyi Avendano RN Position: [facility] RN Supv Member Role: Primary Care Nurse Name: Awilda Grider RN Position: [facility] RN Member Role: Primary Care Nurse Name: Chintan Leach DO Position: [facility] Renal MD Member Role: Lifetime Consulting Physician Address: Address: [address] [place] [address] [address] [facility] [place] [address]- Name: Chandler Ye RN Position: [facility] RN Member Role: Primary Care Nurse Name: Apurva Ji RN Position: [facility] ED RN W/OE and Tasks Member Role: Primary Care Nurse Name: Cordelia Matias RN Position: [facility] AMB Nurse Member Role: Primary Care Nurse Name: Radha Gutierrez Position: [facility] Outreach Member Role: Primary Care Nurse Name: Keenan Vincent RN Position: [facility] SN RN Member Role: Primary Care Nurse Name: Sasha Patricio RN Position: [facility] RN Member Role: Primary Care Nurse Name: Virgie Angel Position: [facility] RN Member Role: Primary Care Nurse Name: Azeb Gusman RN Position: [facility] RN Member Role: Primary Care Nurse Name: Meredith Martinez RN Position: [facility] RN Member Role: Primary Care Nurse Name: Anika Gotti RN Position: [facility] RN Supv Member Role: Primary Care Nurse Name: Justina Walker RN Position: [facility] RN Member Role: Primary Care Nurse Name: Kenia Zuniga RN Position: [facility] PCO w/OE and EZ Script Member Role: Primary Care Nurse Name: Ivone Hidalgo RN Position: [facility] RN Member Role: Primary Care Nurse Name: Mazin Penn MD Position: [facility] Psychiatry MD Member Role: Lifetime Consulting Physician Address: Address: [address] [place] [address] Care Team Related Persons Name: DORITA HERNANDEZ Address: [address] [place] [address] Name: STEW PECK Address: [address] [place] [address] Name: LOUIE EXPRESSIVE MUSIC THERAPISTPETER Address: [address] [place] [address]
--- OUTSIDE RECORDS SUMMARY | 2023-08-16 12:28 | XMS_ITS | Continuity of Care Document ---
Author Name Unknown Organization [facility] Address [address] [place] [address]- Care Team Providers Care Public Area Supervisor Name Role Phone Fatoumata Stokes DO Primary Care Physician Encounter [facility] [place] Date(s): 07/26/23 - 08/02/23 [facility] [address] [place], [place] [address] Encounter Diagnosis Schizoaffective schizophrenia(Discharge Diagnosis) - 07/26/23 Psychosis(Discharge Diagnosis) - 07/26/23 Attending Physician: Melissa SEASONAL WAREHOUSE ASSOCIATE, Wendy Allergies, Adverse Reactions, Alerts Substance [...] Given tetanus/diphtheria/pertussis, acel(Tdap) 11/30/15 Given tetanus/diphtheria/pertussis, acel(Tdap) 1/25/15 Given tetanus/diphtheria/pertussis, acel(Tdap) 05/26/11 Given tetanus/diphtheria/pertussis, acel(Tdap) [...] 07/19/23 13:48:00 EDT, Route to Pharmacy Electronically, [facility], Partial fill upon patient request ifthe [...] 0 Refills, Maintenance, 07/05/23 0:27:00 EDT, [facility] [place], Partial fill upon patient request if the [...] 0 Refills, Maintenance, 07/19/23 13:49:00 EDT, Capsule, [facility], Partial fill upon patient request if [...] Maintenance,07/19/23 13:53:00 EDT, Route to Pharmacy Electronically, [facility], Partial fill upon patient request if the prescription is for a schedule... Start Date: 07/19/23 Stop Date: 08/18/23 Status: Ordered traZODone 50 mg oral tablet 50 mg, 1, tablet, By Mouth, Daily at bedtime, # 30 tablet, Refills 0, Tot. Refills 0, Maintenance, 07/19/23 13:53:00 EDT, Route to Pharmacy Electronically, [facility], Partial fill upon patient request if [...] 07/19/23 13:50:00 EDT, Route to Pharmacy Electronically, [facility], Partial fill upon patient request if the prescription is for a schedule I... Start Date: 07/19/23 Stop Date: 08/18/23 Status: Ordered ZyPREXA 5 mg oral tablet 5 mg, 1, tablet, By Mouth, Daily in AM, # 30 tablet, Refills 0, Tot. Refills 0, Maintenance, 07/19/23 13:50:00 EDT, Route to Pharmacy Electronically, [facility], Partial fill upon patient request if [...] Expert 2Really accelerated when seroquel dose increased Diagnosis Diagnosis Type Effective Dates Health Status Clinical Service Informant Schizoaffective schizophrenia Discharge Diagnosis 07/26/23 Psychosis Discharge Diagnosis 07/26/23 Vital Signs Most recent to oldest [Reference Range]: 1 Height 163 cm (07/26/23 11:25 AM) Weight 96.5 kg (07/26/23 11:25 AM) Oxygen Saturation [94-100 %] 100 % (07/26/23 11:25 AM) Pulse Rate [55-90 bpm] 79 bpm (07/26/23 11:25 AM) Body Mass Index [18.5-24.99 kg/m2] 36.32 kg/m2 *>HHI* (07/26/23 11:25 AM) Blood Pressure [90-138/55-84 mm Hg] 126/ 86mm Hg (07/26/23 11:25 AM) Mode of Delivery (Oxygen) Room air (07/26/23 11:25 AM) Blood pressure sites Arm, right (07/26/23 11:25 AM) Social History Social History Type Response Smoking Status 5-9 cigarettes (betw een 1/4 to 1/2 pack)/day in last 30 days; Interested in cessation: No; Patient wants NRT during admission Yes; Other: will accept nicotine gum; entered on: 07/14/23 Sex History and physical note * Event Display: History and Physical Hospital Authored Date: [id number] [place], [place] PSYCHIATRIC HISTORY ASSESS EXAM NAME: LORETTA CELESTIN : [birth year] MR#: [id number] PCP: ADMITTED: 12/20/15 DATE OF SERVICE: 12/20/15 HPI - Hosp Psych H P Chief Complaint Pt was sent from [facility] here for hallunication History of Present Illness 24 yo AA Female with known schizophrenia was seen at [facility] [place] [facility] for hallucination. Apparently pt has been lived in half-way and sent to [facility] [place] for acute exacerbation of her underline schizophrenia. [...] QDAY Haloperidol* (Haldol*) 5 MG PO BID [place] Carbonate SR* (Lithobid*) 300 MG PO QDAY liTHIum Carbonate SR* ([place] Carbonate SR*) 450 MG PO 4PM Discontinued Reported Medications Citalopram* (CeleXA*) 40 MG PO QDAY Benztropine* 0.5 MG PO BID buPROPion SR* 150 MG PO [id number] Trazodone* (Desyrel*) 100 MG PO HS RisperiDONE* [...] 324 MG QDAY 12/20 09 CKD PO [place] Carbonate 300 MG QDAY 12/20 09 AC PO Polyethylene Glycol 17 GM QDAY 12/20 09 CKD PO Benztropine Mesylate 1 MG 0900,1700 12/19 1700 AC PO Docusate Sodium 100 MG 0900,1700 12/19 1700 AC PO Haloperidol 5 MG 0900,1700 12/19 1700 AC PO [place] Carbonate 450 MG PM 12/19 1700 AC [...] fullly ambulartory Care Level Complexity of Care [id number] Comprehensive history, comprehensive examination, medical decision making of low complexity, at least 20 minutes at the bedside, patient's floor/ unit. ESigned by: YAS GARZA MD Date:12/21/15 Time:1633 / NOT FOR REDISCLOSURE WITHOUT PATIENT'S INFORMED CONSENT Admission evaluation note * Event Display: Admit Notes Authored Date: [id number] [place], [place] PSYCHIATRIC ADMISSION NOTE NAME: LORETTA CELESTIN : 89 HOSPITAL #: [id number] MR #: [id number] CHART LOC: PCP: DICTATING: MARIA R Robin MD DATE OF ADMISSION: 12/20/15 DATE OF SERVICE: 12/21/15 CHIEF COMPLAINT: This 23-year-old woman was admitted to [facility] on 12/20/15 on a Conditional Voluntary application because of suicidal ideation. HISTORY OF PRESENT ILLNESS: The patient has been treated for schizoaffective disorder depressed type, posttraumatic stress disorder, intellectual disability and alcohol syndrome with multiple hospitalizations for self-harming behavior and suicidal ideation. She presented to Crisis Services from her half-way reporting that she was having urges to [...] how they had evolved. Staff at the half-way where she lives reported her as unusually [...] HISTORY: The patient is living in a half-way. Came to [place] with her grandmother in 2013, was very [...] year NAME: LORETTA CELESTIN : [birth year] HOSP#: [id number] MR#: [id number] CHART LOC: PCP: DICTATING: MARIA R Robin MD PSYCHIATRIC ADMISSION NOTE CONTINUED: unknown. TREATMENT PLAN: Resume outpatient medications, physical exam, collateral contact with community caregivers and social network, safety plan, aftercare plan and observe. 927 T:sn DD:[id number] TD:0745 DT:[id number] TT:0924 JOB:[id number] MICHELLE/SHANNON MARIA R Robin MD ESigned by: Date:12/22/15 Time:06 NOT FOR REDISCLOSURE WITHOUT PATIENT'S INFORMED CONSENT Note * Christiane Rizo: PERFORM, SIGN, VERIFY Event Display: Patient Education/Instruction Authored Date: [id number] [facility] Clinical Summary Name LORETTA CELESTIN Age 32 Years 1990 PCP Fatoumata Stokes DO PCP Visit Date 07/26/2023 11:07:00 Additional Instructions: Scheduled Appointments?? Future Appointments ?*[facility] ?[address]??[place],??[place],??[address] ?Phone:??--?Fax:??-- ?Appt. Date:??08/25/2023?10:00 AM ?Scheduled Provider:??Fatoumata Stokes DO Follow-Up Instructions ?? Diagnosis Medications: Please continue your medications until treatment is completed or stopped by your provider. Discuss any questions related to medications with your provider. Medications to Continue with No Changes These medications were not printed or sent to your pharmacy Acetaminophen (acetaminophen 325 mg oral tablet) 650 Milligram Oral every 6 hours as needed Pain , Mild. /Headache. Next Dose: Al Hydroxide/Mg Hydroxide/Simethicone (Maalox Plus Liquid) 30 Milliliter Oral every 4 hours as needed Dyspepsia. Next Dose: Benztropine (benztropine 1 mg oral tablet) 1 Milligram Oral twice a day for 30 Days. Refills: 0. Next Dose: Calcium Carbonate (Tums 500 mg oral tablet, chewable) 1 tab(s) Chew every 4 hours as needed Dyspepsia. Next Dose: Cetirizine (cetirizine 10 mg oral tablet) 10 Milligram Oral Daily. Next Dose: Ferrous Sulfate (ferrous sulfate 325 mg oral enteric coated tablet) 325 Milligram Oral every other day. Next Dose: Fluticasone Nasal (fluticasone 50 mcg/inh nasal spray) 1 spray(s) Nares, Both twice a day as neededOther. nasal allergy symptoms. Next Dose: Lactulose (lactulose 10 gm/15 ml oral syrup) 30 Milliliter Oral 3 times a day as needed Constipation. Next Dose: [place] (lithium 600 mg oral capsule) 1 capsule Oral twice a day for 30 Days. Refills: 0. Next Dose: Milk of Magnesia (Milk of Magnesia Liquid) 30 Milliliter Oral every 4 hours as needed Constipation. Next Dose: Olanzapine (ZyPREXA 10 mg oral tablet) 1 tab(s) Oral Daily at Bedtime for 30 Days. Refills: 0. Next Dose: Olanzapine (ZyPREXA 5 mg oral tablet) 1 tab(s) Oral Daily in the morning for 30 Days. Refills: 0. Next Dose: Polyethylene Glycol 3350 (MiraLax Powder) 17 gram Oral Daily. Next Dose: Prazosin (prazosin 1 mg oral capsule) 1 capsule Oral Daily at Bedtime for 30 Days. Refills: 0. Next Dose: Trazodone (traZODone 50 mg oral tablet) 1 tab(s) Oral Daily at Bedtime for 30 Days. Refills: 0. Next Dose: Allergy Info:?? cloZAPine; Invega; paliperidone; Haldol; Flagyl Medications Given This Visit Future Orders ?No future orders Vital Signs Height 163 cm Weight 96.5 kg BMI 36.32 kg/m2 Blood Pressure 126 mm Hg/86 mm Hg Temperature Pulse Rate 79 bpm Respiratory Rate 02 Sat Mode of Delivery 100 %/Room air You can now view a summary of your hospital visit from the comfort of your home through a free online portal called [employer]. [employer] is a website that allows you to securely view your medical information including discharge summary, medications and follow-up visits. ??You can alsosend a secure electronic message to your doctor???s office to request appointments, renew medications or just ask a question. You can enroll at [email or web address] or register during your next office visit. Disclaimer:?? The information provided is of a general nature and is intended to be used in conjunction with the recommendations and advice of your health care practitioner. ??Every effort has been made to ensure that the information provided is accurate and complete at the time it is provided to you however, as your needs change, or, as new ??information becomes available, different or additional instructions may be required. If you have questions, please consult with your primary care provider or pharmacist, as appropriate. ??This information is not intended to serve as substitution for assessment and evaluation by a qualified health care provider. If you do not have a primary care provider, you may find a [facility] provider by calling [facility] Link at [phone]. [facility], in keeping with [facility] guidance, no longer requires face masks for staff, patientsor visitors in most situations. Similar to time spent indoors at other locations, there is the chance that you were exposed to respiratory viruses during your time with us (such as flu or COVID-19).? If you develop symptoms concerning for a viral respiratory infection, please seek testing (and treatment if indicated) from your medical provider or home test kit. For information about the plan of care including goals and instructions for your diagnosis, please see the patient education orders section of this document. Patient Education Materials?? The content of this educational material or handout may have been modified, supplemented, or adapted from its original content and format to support your individualized medical care. Patient Care team information Care Team Personnel Name: Dean Rivas RN Position: [facility] RN Member Role: Primary Care Nurse Name: Tian Naylor RN Position: [facility] RN Member Role: Primary Care Nurse Name: Jolanta Ace RN Position: [facility] RN Veronica Member Role: Primary Care Nurse Name: Fatoumata Stokes DO Position: [facility] Physician - Primary Care Member Role: PCP Address: Address: [address] [place] [address]- Name: Britt Polanco RN Position: [facility] RN Member Role: Primary Care Nurse Name: Awilda Grider RN Position: [facility] RN Member Role: Primary Care Nurse Name: Meagan Darden RN Position: [facility] RN Member Role: Primary Care Nurse Name: Chintan Leach DO Position: [facility] Renal MD Member Role: Lifetime Consulting Physician Address: Address: [address] [place] [address] [address] [facility] [place] [address]- Name: Chandler Ye RN Position: [facility] RN Member Role: Primary Care Nurse Name: Apurva Ji RN Position: [facility] ED RN W/OE and Tasks Member Role: Primary Care Nurse Name: Cordelia Matias RN Position: [facility] AMB Nurse Member Role: Primary Care Nurse Name: Riya Moore RN Position: [facility] RN Member Role: Primary Care Nurse Name: Radha Gutierrez Position: [facility] Outreach Member Role: Primary Care Nurse Name: Keenan [place] RN Position: [facility] SN RN Member Role: Primary Care Nurse Name: Sasha Patricio RN Position: [facility] RN Member Role: Primary Care Nurse Name: Virgie Angel Position: [facility] RN Member Role: Primary Care Nurse Name: Emma Kaminski RN Position: [facility] RN Member Role: Primary Care Nurse Name: Malu Palomo Position: [facility] RN Member Role: Primary Care Nurse Name: Azeb Gusman RN Position: [facility] RN Member Role: Primary Care Nurse Name: Asher Diaz RN Position: [facility] RN Member Role: Primary Care Nurse Name: Kim Cornell RN Position: [facility] RN Member Role: Primary Care Nurse Name: Meredith Martinez RN Position: [facility] RN Member Role: Primary Care Nurse Name: Anika Gotti RN Position: [facility] RN Member Role: Primary Care Nurse Name: Rafiq Muñoz RN Position: [facility] RN Member Role: Primary Care Nurse Name: Justina Walker RN Position: [facility] RN Member Role: Primary Care Nurse Name: Ivone Hidalgo RN Position: [facility] RN Member Role: Primary Care Nurse Name: Mazin Penn MD Position: [facility] Physician - [facility] Member Role: Lifetime Consulting Physician Address: Address: [address] [place] [address] [place] Care Team Related Persons Name: DORITA MCCOLLUM Address: [address] [place] [address] Name: STEW PECK Address: home [address] [facility], [address] Name: LISA PALMA Address: home [address] [place] [address]
--- OUTSIDE RECORDS SUMMARY | 2023-08-16 12:28 | XMS_ITS | Continuity of Care Document ---
Author Name Unknown Organization [facility] Address [address] [place] [address]- Care Team Providers Care Senior Lead Software Engineer Name Role Phone Fatoumata Stokes DO Primary Care Physician Encounter [facility] Date(s): 07/15/22 - 07/16/[address] [address]- Encounter Diagnosis Noncompliance with medication regimen(Final) - 07/15/22 Nausea(Final) - 07/15/22 Poor appetite(Final) - 07/15/22 COVID-19(Final) - 07/16/22 Discharge Disposition: A-D/C Home Attending Physician: Alejandro Dacosta MD Admitting Physician: Alejandro Dacosta MD Referring Physician: Not on Staff, Referring [...] 05/28/21 7:42:00 EDT, Route to Pharmacy Electronically, [facility]/pharmacy #[id number], 164, cm,04/07/21 15:35:00 EDT, Height, 112, kg, 10/14/20 10... Start Date: 05/28/21 Status: Ordered benztropine 1 mg oral tablet 1 mg, 1, tablet, By Mouth, 2 times a day, # 60 tablet, Refills 0, Tot. Refills 0, Maintenance, 01/01/20 16:15:00 EDT, Route to Pharmacy Electronically, [facility]/pharmacy #[id number], 163, cm, 01/01/20 14:39:00 EDT, Height, 86.5, kg, 12/19/19 19:14:00 EDT, Dry We... Start Date: 01/01/20 Stop Date: 01/31/20 Status: Ordered cetirizine 10 mg oral tablet 1 tablet, By Mouth, Daily, # 30 tablet, 2 Refills, Maintenance, 07/12/22 10:38:00 EDT, [id number], 162, cm, 06/18/22 11:49:00 EDT, Height, 100, kg, 06/16/22 6:50:00 EDT, Dry Weight Start Date: 07/12/22 Status: Ordered docusate sodium 100 mg oral capsule 1 capsule, By Mouth, 2 times a day, # 60 capsule, 5 Refills, [id number], 163, cm, 09/24/21 16:23:00 EST, Height, 112, kg, 10/14/20 10:13:00 EST, Dry Weight Start Date: 02/03/22 Status: Ordered Estradiol Patch 0.1 mg/24 hours twice weekly transdermal film, extended release See Instructions, APPLY 1 PATCH TOPICALLY EVERY TUESDAY & TUESDAY, # 24 patch, 4 Refills, [id number], 84, APPLY 1 PATCH TOPICALLY EVERY TUESDAY [...] Refills, Maintenance, 01/01/20 16:16:00 EDT, Capsule, [facility]/pharmacy #[id number], 163, cm, 01/01/20 14:39:00 EDT, Height, 86.5, kg, 12/19/19 19:14:00 EDT, Dry Weight Start Date: 01/01/20 Stop Date: 03/01/20 Status: Ordered medroxyPROGESTERone 150 mg/mL intramuscular suspension 1 mL, Intramuscular, Every 3 months, # 1 mL, 3 Refills, Soft Stop, 03/13/21 13:05:00 EDT, [facility]/pharmacy #[id number], 164, cm, 03/13/21 9:51:00 EDT, Height, 112, kg, 10/14/20 10:13:00 EST, Dry Weight Start Date: 03/13/21 Status: Ordered omeprazole 20 mg oral enteric coated capsule 1 capsule, By Mouth, Daily, # 90 capsule, 0 Refills, [id number], 163, cm, 09/24/21 16:23:00 EST, Height, 112, [...] AT BEDTIME NEEDED, #48 capsule, 11 Refills, [id number], 163, cm, 09/24/21 16:23:00 EST, Height, 112, [...] to oldest [Reference Range]: 1 2 3 Height 163 cm (07/16/22 4:13 PM) 163 cm (07/15/22 6:12 PM) 163 cm (07/15/22 2:24 PM) Weight 95 kg (07/16/22 4:13 PM) 95 kg (07/15/22 6:12 PM) 95 kg (07/15/22 10:45 AM) Oxygen Saturation [94-100 %] 100 % (07/16/22 4:13 PM) 100 % (07/16/22 9:00 AM) 99 % (07/15/22 9:32 PM) Pulse Rate [55-90 bpm] 74 bpm (07/16/22 4:13 PM) 84 bpm (07/16/22 9:00 AM) 78 bpm (07/15/22 9:32 PM) Body Mass Index [18.5-24.99 kg/m2] 35.76 kg/m2 *>HHI* (07/16/22 4:13 PM) 35.76 kg/m2 *>HHI* (07/15/22 6:12 PM) 35.76 kg/m2 *>HHI* (07/15/22 10:45 AM) Blood Pressure [90-138/55-84 mm Hg] 143/87mm Hg *H* (07/16/22 4:13 PM) 123/87mm Hg (07/16/22 9:00 AM) 128/80mm Hg (07/15/22 9:32 PM) Respiratory Rate [16-30 br/min] 16 br/min (07/16/22 4:13 PM) 16 br/min (07/16/22 9:00 AM) 18 br/min (07/15/22 9:32 PM) Temperature [96.8-100.4 DegF] 98.7 DegF (07/16/22 4:13 PM) 97.6 DegF (07/16/22 9:00 AM) 98.9 DegF (07/15/22 9:32 PM) Mode of Delivery (Oxygen) Room air (07/16/22 4:13 PM) Room air (07/16/22 9:00 AM) Room air (07/15/22 9:32 PM) Blood pressure sites Arm, left (07/16/22 4:13 PM) Arm, right (07/16/22 9:00 AM) Arm, right (07/15/22 9:32 PM) Temperature Route Oral (07/16/22 4:13 PM) Oral (07/16/22 9:00 AM) Oral (07/15/22 10:59 AM) Dry Weight 95 kg (07/16/22 4:13 PM) 95 kg (07/15/22 6:12 PM) 95 kg (07/15/22 10:45 AM) Weight Obtained Via Patient/family state d (07/15/22 10:45 AM) Dry Weight Obtained Via Patient/family s tated (07/15/22 10:45 AM) Social History Social History Type Response Tobacco Use: 4 or less cigar ettes(less than 1/4 pack)/day in last 30 days. Sex Patient Care team information Personnel Name: Fatoumata Stokes DO Address: Address: [address] [place] [address] Adult & Pediatric Medicine [address]
--- OUTSIDE RECORDS SUMMARY | 2023-08-16 12:28 | XMS_ITS | Continuity of Care Document ---
Author Name Unknown Organization [facility] Cynthia pritchett's [facility] Address [address], [address]t [place] [address]- Care Team Providers Care Deputy Jailer Name Role Phone Fatoumata Stokes DO Primary Care Physician [place] [facility] [place] [address], 4th [address] [place], [place] [address] Allergies, Adverse Reactions, Alerts Substance [...] 09/29/22 9:09:00 EST, Route to Pharmacy Electronically, [facility], 163, cm, 09/14/22 8:12:00 EST, Height, 87.9, kg, 09/09/22 12:06:00 EST, Dry Weight Start Date: 09/29/22 Status: Ordered benztropine 1 mg oral tablet 1 mg, 1, tablet, By Mouth, 2 times a day, # 60 tablet, Refills 0, Tot. Refills 0, Maintenance, 09/14/22 13:02:00 EST, Route to Pharmacy Electronically, [facility], 163, cm, 09/14/22 8:12:00 EST, Height, 87.9, kg, 09/09/22 12:06:00 EST, D... Start Date: 09/14/22 Stop Date: 10/14/22 Status: Ordered cetirizine 10 mg oral tablet 1 tablet, By Mouth, Daily, # 30 tablet, 0 Refills, Maintenance, 09/14/22 13:03:00 EST, [facility], 163, cm, 09/14/22 8:12:00 EST, Height, 87.9, kg, 09/09/22 12:06:00 EST, Dry Weight Start Date: 09/14/22 Status: Ordered docusate sodium 100 mg oral capsule 1 capsule, By Mouth, 2 times a day, # 60 capsule, 11 Refills, 10/06/22 16:34:00 EST, [facility]/pharmacy #[id number], 163, cm, 09/14/22 8:12:00 EST, Height, 87.9, kg, 09/09/22 12:06:00 EST, Dry Weight Start Date: 10/06/22 Status: Ordered estradiol 0.1 mg/24 hours twice weekly transdermal film, extended release See Instructions, apply 1 patch Topically every tuesday and , # 24 patch, 0 Refills, Maintenance, 11/24/22 12:36:00 EST, [facility]/pharmacy #[id number], Partial fill upon patient request if the prescription is for a schedule II opioid drug., 162, cm, 11/23... Start Date: 11/24/22 Status: Ordered Estradiol Patch 0.1 mg/24 hours twice weekly transdermal film, extended release See Instructions, APPLY 1 PATCH TOPICALLY EVERY TUESDAY & TUESDAY, # 8 patch, 0 Refills, 09/14/22 13:03:00 EST, [facility], APPLY 1 PATCH TOPICALLY EVERY TUESDAY & TUESDAY, 163,cm, 09/14/22 8:12:00 EST, Height, 87.9, kg, 09/09/22 12:06:... Start Date: 09/14/22 Status: Ordered ferrous sulfate 325 mg oral enteric coated tablet 1, tablet, By Mouth, Every other day, may take with food to minimize abdominal discomfort, # 15 tablet, Refills 0, Tot. Refills 0, 09/14/22 13:04:00 EST, Route to Pharmacy Electronically, [facility], 163, cm, 09/14/22 8:12:00 [...] 0 Refills, Maintenance, 09/14/22 13:05:00 EST, Tablet, [facility], Partial fill upon patient request if the prescription is for a schedule II opioid drug., 163, cm, 09/14/22 8:12:0... Start Date: 09/14/22 Status: Ordered medroxyPROGESTERone 150 mg/mL intramuscular suspension 1 mL, Intramuscular, Every 3 months, # 1 mL, 3 Refills, Soft Stop, 03/13/21 13:05:00 EDT, [facility]/pharmacy #[id number], 164, cm, 03/13/21 9:51:00 EDT, Height, 112, kg, 10/14/20 10:13:00 EST, Dry Weight Start Date: 03/13/21 Status: Ordered olanzapine 2.5 mg oral tablet 2.5 mg, 1, tablet, By Mouth, Daily, PRN, Agitation/Psychosis, # 14 tablet, Refills 1, Tot. Refills 1, Maintenance, Other, 10/16/22 12:36:00 EST, Route to Pharmacy Electronically, [facility]/pharmacy #[id number], Partial fill upon patient request if the prescriptio... Start Date: 10/16/22 Stop Date: 11/13/22 Status: Ordered omeprazole 20 mg oral enteric coated capsule 1 capsule, By Mouth, Daily, # 90 capsule, 0 Refills, [id number], 163, cm, 09/24/21 16:23:00 EST, Height, 112, kg, 10/14/20 10:13:00 EST, Dry Weight Start Date: 03/04/22 Status: Ordered perphenazine 16 mg oral tablet 16 mg, 1, tablet, By Mouth, 2 times a day, take with 4mg tablet for a total dose of 20 mg 2 times daily, # 60 tablet, Refills 0, Tot. Refills 0, Maintenance, 09/14/22 13:06:00 EST, Route to Pharmacy Electronically, [facility] 3, Partial fi... Start Date: 09/14/22 Status: Ordered perphenazine 4 mg oral tablet 4 mg, 1, tablet, By Mouth, 2 times a day, take with 16 mg tablet for a total dose of 20 mg 2 times daily, # 60 tablet, Refills 0, Tot. Refills 0, Maintenance, 09/14/22 13:06:00 EST, Route to PharmacyElectronically, [facility], Partial f... Start Date: 09/14/22 Status: Ordered perphenazine 8 mg oral tablet 8 mg, 1, tablet, By Mouth, Daily, at 12 PM, # 30 tablet, Refills 0, Tot. Refills 0, Maintenance, 09/14/22 13:06:00 EST, Route to Pharmacy Electronically, [facility] 3, Partial fill upon patient request if the prescription is for a schedule... Start Date: 09/14/22 Status: Ordered progesterone 200 mg oral capsule 1 capsule = 200 mg, By Mouth, Daily, for 12 days, To take on the first twelve days of each month., # 12 capsule, 3 Refills, Acute 01/11/23 11:56:00 EDT, 11/24/22 11:56:00 EST, Capsule, [facility]/pharmacy #[id number], Partial fill upon patient request if the presc... Start Date: 11/24/22 Stop Date: 01/11/23 Status: Ordered Senna 8.6 mg oral tablet 8.6 mg, 1, tablet, By Mouth, Daily at bedtime, # 30 tablet, Refills 0, Tot. Refills 0, Maintenance,09/14/22 13:06:00 EST, Route to Pharmacy Electronically, [facility] 3 Tablet, Partial fill upon patient request if the prescription is for... Start Date: 09/14/22 Status: Ordered simethicone 125 mg oral capsule See Instructions, TAKE 1 CAPSULE BY MOUTH THREE TIMES A DAY AFTER MEALS AND AT BEDTIME NEEDED, #48 capsule, 11 Refills, Maintenance, 09/24/22 18:10:00 EST, [facility], 163, cm, 09/14/22 8:12:00 EST, Height, 87.9, kg, 09/09/22 12:06:00 EST, Start Date: 09/24/22 Status: Ordered ZyPREXA 2.5 mg oral tablet 2.5 mg, 1, tablet, By Mouth, Daily at bedtime, # 14 tablet, Refills 0, Tot. Refills 0, Maintenance,10/16/22 11:51:00 EST, Route to Pharmacy Electronically, [facility]/pharmacy #[id number], Partial fill upon patient request if the [...] Display: History and Physical Hospital Authored Date: [id number] [place], [place] PSYCHIATRIC HISTORY ASSESS EXAM NAME: LORETTA CELESTIN : 89 MR#: [id number] PCP: ADMITTED: 12/20/15 DATE OF SERVICE: 12/20/15 HPI - Hosp Psych H P Chief Complaint Pt was sent from [facility] here for hallunication History of Present Illness 24 yo AA Female with known schizophrenia was seen at [facility] for hallucination. Apparently pt has been lived in nursing home and sent to [facility] for acute exacerbation of her underline schizophrenia. [...] QDAY Haloperidol* (Haldol*) 5 MG PO BID [place] Carbonate SR* (Lithobid*) 300 MG PO QDAY liTHIum Carbonate SR* ([place] Carbonate SR*) 450 MG PO 4PM Discontinued Reported Medications Citalopram* (CeleXA*) 40 MG PO QDAY Benztropine* 0.5 MG PO BID buPROPion SR* 150 MG PO [id number] Trazodone* (Desyrel*) 100 MG PO HS RisperiDONE* [...] 324 MG QDAY 12/20 09 CKD PO [place] Carbonate 300 MG QDAY 12/20 0900 AC PO Polyethylene Glycol 17 GM QDAY 12/20 09 CKD PO Benztropine Mesylate 1 MG 09,12/19 1700 AC PO Docusate Sodium 100 MG 0900,12/19 1700 AC PO Haloperidol 5 MG 0900,12/19 1700 AC PO [place] Carbonate 450 MG PM 12/19 1700 AC PO Risperidone 0.5 MG 09,12/19 1700 AC PO Senna 17.2 MG 0900,12/19 [...] fullly ambulartory Care Level Complexity of Care [id number] Comprehensive history, comprehensive examination, medical decision making of low complexity, at least 20 minutes at the bedside, patient's floor/ unit. ESigned by: YAS GARZA MD Date:12/21/15 Time:1633 / NOT FOR REDISCLOSURE WITHOUT PATIENT'S INFORMED CONSENT Admission evaluation note * Event Display: Admit Notes Authored Date: [place], [place] PSYCHIATRIC ADMISSION NOTE NAME: LORETTA CELESTIN : 89 HOSPITAL #: [id number] MR #: [id number] CHART LOC: PCP: DICTATING: MARIA R Robin MD DATE OF ADMISSION: 12/20/15 DATE OF SERVICE: 12/21/15 CHIEF COMPLAINT: This 23-year-old woman was admitted to [facility] on 12/20/15 on a Conditional Voluntary application because of suicidal ideation. HISTORY OF PRESENT ILLNESS: The patient has been treated for schizoaffective disorder depressed type, posttraumatic stress disorder, intellectual disability and alcohol syndrome with multiple hospitalizations for self-harming behavior and suicidal ideation. She presented to Crisis Services from her nursing home reporting that she was having urges to [...] how they had evolved. Staff at the nursing home where she lives reported her as unusually [...] HISTORY: The patient is living in a nursing home. Came to [place] with her grandmother in [...] year NAME: LORETTA CELESTIN : 89 HOSP#: [id number] MR#: [id number] CHART LOC: PCP: DICTATING: MARIA R Robin MD PSYCHIATRIC ADMISSION NOTE CONTINUED: unknown. TREATMENT PLAN: Resume outpatient medications, physical exam, collateral contact with community caregivers and social network, safety plan, aftercare plan and observe. 927 T: DD:[id number] TD:0745 DT:[id number] TT:0924 JOB:[id number] MICHELLE/SHANNON MARIA R Robin MD ESigned by: Date:12/22/15 Time:642 NOT FOR REDISCLOSURE WITHOUT PATIENT'S INFORMED CONSENT Patient Care team information Care Team Personnel Name: Dean Rivas RN Position: [facility] RN Member Role: Primary Care Nurse Name: Fatoumata Stokes DO Position: [facility] Primary Care Physician Member Role: PCP Address: Address: [address] [place] [address] Adult [facility] [place] [address]- Name: Britt Polanco RN [facility] Member Role: Lifetime Consulting Physician Address: Address: [address] [place] [address] [address] [facility] [place] [address]- Name: Chandler Ye RN [facility]: [facility] Care Nurse Name: Kennedi Roca RN Position: [facility] RN [...] Member Role: Lifetime Consulting Physician Address: Address: [address] [place] [address]- [place] Care Team Related Persons Name: DORITA HERNANDEZ Address: [address] [place] [address] Name: STEW PECK Address: [address] [place] [address] Name: LOUIE ELLISONORPETER Address: [address] [place] [address]
--- OUTSIDE RECORDS SUMMARY | 2023-08-16 12:28 | XMS_ITS | Continuity of Care Document ---
Author Name Unknown Organization [facility] Address [address], [address] [place] [address]- Care Team Providers Care Professor Of Exercise Science Name Role Phone Fatoumata Stokes DO Primary Care Physician [place] [facility] [place]): 02/25/23 - 03/27/23 [facility] [address] 4th [address] [place], [place] [address] Attending Physician: Admtr, Ar8 Admitting Physician: Admtr, Ar8 Referring Physician: Admtr, Ar8 Allergies, Adverse Reactions, [...] 09/29/22 9:09:00 EST, Route to Pharmacy Electronically, [facility], 163, cm, 09/14/22 8:12:00 EST, Height, 87.9, kg, 09/09/22 12:06:00 EST, Dry Weight Start Date: 09/29/22 Status: Ordered benztropine 1 mg oral tablet 1 mg, 1, tablet, By Mouth, 2 times a day, # 60 tablet, Refills 0, Tot. Refills 0, Maintenance, 09/14/22 13:02:00 EST, Route to Pharmacy Electronically, [facility], 163, cm, 09/14/22 8:12:00 EST, Height, 87.9, kg, 09/09/22 12:06:00 EST, D... Start Date: 09/14/22 Stop Date: 10/14/22 Status: Ordered cetirizine 10 mg oral tablet 1 tablet, By Mouth, Daily, # 30 tablet, 0 Refills, Maintenance, 09/14/22 13:03:00 EST, [facility], 163, cm, 09/14/22 8:12:00 EST, Height, 87.9, kg, 09/09/22 12:06:00 EST, Dry Weight Start Date: 09/14/22 Status: Ordered docusate sodium 100 mg oral capsule 1 capsule, By Mouth, 2 times a day, # 60 capsule, 11 Refills, 10/06/22 16:34:00 EST, [facility]/pharmacy #[id number], 163, cm, 09/14/22 8:12:00 EST, Height, 87.9, kg, 09/09/22 12:06:00 EST, Dry Weight Start Date: 10/06/22 Status: Ordered estradiol 0.1 mg/24 hours twice weekly transdermal film, extended release See Instructions, apply 1 patch Topically every tuesday and , # 24 patch, 0 Refills, Maintenance, 11/24/22 12:36:00 EST, [facility] #[id number], Partial fill upon patient request if the prescription is for a schedule II opioid drug., 162, cm, 11/23... Start Date: 11/24/22 Status: Ordered Estradiol Patch 0.1 mg/24 hours twice weekly transdermal film, extended release See Instructions, APPLY 1 PATCH TOPICALLY EVERY TUESDAY & TUESDAY, # 8 patch, 0 Refills, 09/14/22 13:03:00 EST, [facility], APPLY 1 PATCH TOPICALLY EVERY TUESDAY & TUESDAY, 163,cm, 09/14/22 8:12:00 EST, Height, 87.9, kg, 09/09/22 12:06:... Start Date: 09/14/22 Status: Ordered ferrous sulfate 325 mg oral enteric coated tablet 1, tablet, By Mouth, Every other day, may take with food to minimize abdominal discomfort, # 15 tablet, Refills 0, Tot. Refills 0, 09/14/22 13:04:00 EST, Route to Pharmacy Electronically, [facility], 163, cm, 09/14/22 8:12:00 EST, [...] 0 Refills, Maintenance, 09/14/22 13:05:00 EST, Tablet, [facility], Partial fill upon patient request if the prescription is for a schedule II opioid drug., 163, cm, 09/14/22 8:12:0... Start Date: 09/14/22 Status: Ordered medroxyPROGESTERone 150 mg/mL intramuscular suspension 1 mL, Intramuscular, Every 3 months, # 1 mL, 3 Refills, Soft Stop, 03/13/21 13:05:00 EDT, [facility]acy #[id number], 164, cm, 03/13/21 9:51:00 EDT, Height, 112, kg, 10/14/20 10:13:00 EST, Dry Weight Start Date: 03/13/21 Status: Ordered olanzapine 2.5 mg oral tablet 2.5 mg, 1, tablet, By Mouth, Daily, PRN, Agitation/Psychosis, # 14 tablet, Refills 1, Tot. Refills 1, Maintenance, Other, 10/16/22 12:36:00 EST, Route to Pharmacy Electronically, [facility] #[id number], Partial fill upon patient request if the prescriptio... Start Date: 10/16/22 Stop Date: 11/13/22 Status: Ordered omeprazole 20 mg oral enteric coated capsule 1 capsule, By Mouth, Daily, # 90 capsule, 0 Refills, [facility], 163, cm, 09/24/21 16:23:00 EST, Height, 112, kg, 10/14/20 10:13:00 EST, Dry Weight Start Date: 03/04/22 Status: Ordered perphenazine 16 mg oral tablet 16 mg, 1, tablet, By Mouth, 2 times a day, take with 4mg tablet for a total dose of 20 mg 2 times daily, # 60 tablet, Refills 0, Tot. Refills 0, Maintenance, 09/14/22 13:06:00 EST, Route to Pharmacy Electronically, [facility] 3, Partial fi... Start Date: 09/14/22 Status: Ordered perphenazine 4 mg oral tablet 4 mg, 1, tablet, By Mouth, 2 times a day, take with 16 mg tablet for a total dose of 20 mg 2 times daily, # 60 tablet, Refills 0, Tot. Refills 0, Maintenance, 09/14/22 13:06:00 EST, Route to PharmacyElectronically, [facility] 3, Partial f... Start Date: 09/14/22 Status: Ordered perphenazine 8 mg oral tablet 8 mg, 1, tablet, By Mouth, Daily, at 12 PM, # 30 tablet, Refills 0, Tot. Refills 0, Maintenance, 09/14/22 13:06:00 EST, Route to Pharmacy Electronically, [facility] 3, Partial fill upon patient request if the prescription is for a schedule... Start Date: 09/14/22 Status: Ordered Senna 8.6 mg oral tablet 8.6 mg, 1, tablet, By Mouth, Daily at bedtime, # 30 tablet, Refills 0, Tot. Refills 0, Maintenance,09/14/22 13:06:00 EST, Route to Pharmacy Electronically, [facility] 3 Tablet, Partial fill upon patient request if the prescription is for... Start Date: 09/14/22 Status: Ordered simethicone 125 mg oral capsule See Instructions, TAKE 1 CAPSULE BY MOUTH THREE TIMES A DAY AFTER MEALS AND AT BEDTIME NEEDED, #48 capsule, 11 Refills, Maintenance, 09/24/22 18:10:00 EST, [facility], 163, cm, 09/14/22 8:12:00 EST, Height, 87.9, kg, 09/09/22 12:06:00 EST, Start Date: 09/24/22 Status: Ordered ZyPREXA 2.5 mg oral tablet 2.5 mg, 1, tablet, By Mouth, Daily at bedtime, # 14 tablet, Refills 0, Tot. Refills 0, Maintenance,10/16/22 11:51:00 EST, Route to Pharmacy Electronically, [facility] #[id number], Partial fill upon patient request if the [...] Display: History and Physical Hospital Authored Date: [id number] [place], [place] PSYCHIATRIC HISTORY ASSESS EXAM NAME: LORETTA CELESTIN : 89 MR#: [id number] PCP: ADMITTED: 12/20/15 DATE OF SERVICE: 12/20/15 HPI - Hosp Psych H P Chief Complaint Pt was sent from [facility] [place] for hallunication History of Present Illness 24 yo AA Female with known schizophrenia was seen at [facility] for hallucination. Apparently pt has been lived in care home and sent to [facility] for acute exacerbation of her underline schizophrenia. [...] QDAY Haloperidol* (Haldol*) 5 MG PO BID [place] Carbonate SR* (Lithobid*) 300 MG PO QDAY liTHIum Carbonate SR* ([place] Carbonate SR*) 450 MG PO 4PM Discontinued Reported Medications Citalopram* (CeleXA*) 40 MG PO QDAY Benztropine* 0.5 MG PO BID buPROPion SR* 150 MG PO [id number] Trazodone* (Desyrel*) 100 MG PO HS RisperiDONE* [...] 324 MG QDAY 12/20 0900 CKD PO [place] Carbonate 300 MG QDAY 12/20 0900 AC PO Polyethylene Glycol 17 GM QDAY 12/20 0900 CKD PO Benztropine Mesylate 1 MG 0900,1700 12/19 1700 AC PO Docusate Sodium 100 MG 0900,1700 12/19 1700 AC PO Haloperidol 5 MG 0900,1700 12/19 1700 AC PO [place] Carbonate 450 MG PM 12/19 1700 AC [...] fullly ambulartory Care Level Complexity of Care [id number] Comprehensive history, comprehensive examination, medical decision making of low complexity, at least 20 minutes at the bedside, patient's floor/ unit. ESigned by: YAS GARZA MD Date:12/21/15 Time:1633 / NOT FOR REDISCLOSURE WITHOUT PATIENT'S INFORMED CONSENT Admission evaluation note * Event Display: Admit Notes Authored Date: [id number] [place], [place] PSYCHIATRIC ADMISSION NOTE NAME: LORETTA CELESTIN : 89 HOSPITAL #: [id number] MR #: [id number] CHART LOC: PCP: DICTATING: MARIA R Robin MD DATE OF ADMISSION: 12/20/15 DATE OF SERVICE: 12/21/15 CHIEF COMPLAINT: This 23-year-old woman was admitted to [facility] on 12/20/15 on a Conditional Voluntary application because of suicidal ideation. HISTORY OF PRESENT ILLNESS: The patient has been treated for schizoaffective disorder depressed type, posttraumatic stress disorder, intellectual disability and alcohol syndrome with multiple hospitalizations for self-harming behavior and suicidal ideation. She presented to Crisis Services from her care home reporting that she was having urges [...] how they had evolved. Staff at the care home where she lives reported her as [...] HISTORY: The patient is living in a care home. Came to [place] with her grandmother [...] year NAME: LORETTA CELESTIN : 89 HOSP#: [id number] MR#: [id number] CHART LOC: PCP: DICTATING: MARIA R Robin MD PSYCHIATRIC ADMISSION NOTE CONTINUED: unknown. TREATMENT PLAN: Resume outpatient medications, physical exam, collateral contact with community caregivers and social network, safety plan, aftercare plan and observe. 927 T:sn DD:[id number] TD:0745 DT:20151221 TT:0924 JOB:[id number] MICHELLE/SHANNON MARIA R Robin MD ESigned by: Date:12/22/15 Time:642 NOT FOR REDISCLOSURE WITHOUT PATIENT'S INFORMED CONSENT Patient Care team information Care Team Personnel Name: Dean Rivas RN Position: [facility] RN Member Role: Primary Care Nurse Name: Fatoumata Stokes DO Position: [facility] Physician - Primary Care Member Role: PCP Address: Address: [address] [place] [address] Adult & [place] [address]- Name: Britt Polanco RN Position: [facility] RN Member Role: Primary Care Nurse Name: Anyi Avendano RN Position: [facility] RN Supv Member Role: Primary Care Nurse Name: Awilda Grider RN Position: [facility] RN Member Role: Primary Care Nurse Name: Chintan Leach DO Position: [facility] Renal MD Member Role: Lifetime Consulting Physician Address: Address: [address] [place], [place] [address] [place] [address]- Name: Chandler Ye RN Position: [facility] RN Member Role: Primary Care Nurse Name: Apurva Ji RN Position: [facility] ED RN W/OE and Tasks Member Role: Primary Care Nurse Name: Cordelia Matias RN Position: [facility] AMB Nurse Member Role: Primary Care Nurse Name: Radha Gutierrez Position: [facility] Outreach Member Role: Primary Care Nurse Name: Keenan Vincent RN Position: [facility] RN Member Role: Primary Care Nurse Name: Sasha Patricio RN Position: [facility] RN Member Role: Primary Care Nurse Name: Virgie Angel Position: [facility] RN Member Role: Primary Care Nurse Name: Azeb Gusman RN Position: [facility] RN Member Role: Primary Care Nurse Name: Meredith Martinez RN Position: [facility] RN Member Role: Primary Care Nurse Name: Anika Gotti RN Position: [facility] RN Supv Member Role: Primary Care Nurse Name: Justina Walker RN Position: [facility] RN Member Role: Primary Care Nurse Name: Kenia Zuniga RN Position: [facility] PCO w/OE and EZ Script Member Role: Primary Care Nurse Name: Ivone Hidalgo RN Position: [facility] RN Member Role: Primary Care Nurse Name: Mazin Penn MD Position: [facility] Physician - Behavioral Health Member Role: Lifetime Consulting Physician Address: Address: [address] [place] [address]- [place] Care Team Related Persons Name: DORITA HERNANDEZ Address: [address] [place] [address] Name: STEW PECK Address: [address] [place] [address] Name: LOUIE IT INTEGRATION ARCHITECTPETER Address: [address] [place] [address]
--- OUTSIDE RECORDS SUMMARY | 2023-08-16 12:29 | XMS_ITS | Continuity of Care Document ---
Author Name Unknown Organization [facility] Address [address] [place] [id number]- Care Team Providers Care Metallographer Name Role Phone Fatoumata Stokes DO Primary Care Physician Encounter [facility] Date(s): 11/22/22 - 11/23/[address] [address]- Discharge Disposition: A-D/C Home Attending Physician: April Bryan MD Admitting Physician: April Bryan MD Referring Physician: Not on Staff, Referring [...] 09/29/22 9:09:00 EST, Route to Pharmacy Electronically, [id number], 163, cm, 09/14/22 8:12:00 EST, Height, 87.9, kg, 09/09/22 12:06:00 EST, Dry Weight Start Date: 09/29/22 Status: Ordered benztropine 1 mg oral tablet 1 mg, 1, tablet, By Mouth, 2 times a day, # 60 tablet, Refills 0, Tot. Refills 0, Maintenance, 09/14/22 13:02:00 EST, Route to Pharmacy Electronically, [facility], 163, cm, 09/14/22 8:12:00 EST, Height, 87.9, kg, 09/09/22 12:06:00 EST, D... Start Date: 09/14/22 Stop Date: 10/14/22 Status: Ordered cetirizine 10 mg oral tablet 1 tablet, By Mouth, Daily, # 30 tablet, 0 Refills, Maintenance, 09/14/22 13:03:00 EST, [facility], 163, cm, 09/14/22 8:12:00 EST, Height, 87.9, kg, 09/09/22 12:06:00 EST, Dry Weight Start Date: 09/14/22 Status: Ordered docusate sodium 100 mg oral capsule 1 capsule, By Mouth, 2 times a day, # 60 capsule, 11 Refills, 10/06/22 16:34:00 EST, [facility]/pharmacy #[id number], 163, cm, 09/14/22 8:12:00 EST, Height, 87.9, kg, 09/09/22 12:06:00 EST, Dry Weight Start Date: 10/06/22 Status: Ordered Estradiol Patch 0.1 mg/24 hours twice weekly transdermal film, extended release See Instructions, APPLY 1 PATCH TOPICALLY EVERY TUESDAY & TUESDAY, # 8 patch, 0 Refills, 09/14/22 13:03:00 EST, [facility], APPLY 1 PATCH TOPICALLY EVERY TUESDAY & TUESDAY, 163,cm, 09/14/22 8:12:00 EST, Height, 87.9, kg, 09/09/22 12:06:... Start Date: 09/14/22 Status: Ordered ferrous sulfate 325 mg oral enteric coated tablet 1, tablet, By Mouth, Every other day, may take with food to minimize abdominal discomfort, # 15 tablet, Refills 0, Tot. Refills 0, 09/14/22 13:04:00 EST, Route to Pharmacy Electronically, [facility], 163, cm, 09/14/22 8:12:00 EST, Height... Start Date: 09/14/22 Status: Ordered ibuprofen 600 mg oral tablet 600 mg, 1, tablet, By Mouth, Every 8 hours, PRN, # 40 tablet, Refills 0, Tot. Refills 0, Acute 11/25/22 12:00:00 EST, Pain , Moderate, 11/23/22 11:57:00 EST, Route to Pharmacy Electronically, [facility]/pharmacy #[id number], Partial fill upon patient request if th... Start Date: 11/23/22 Stop Date: 11/25/22 Status: Ordered ibuprofen 800 mg oral tablet 800 mg, 1, tablet, By Mouth, 3 times a day, PRN, Refills 0, Maintenance, as needed, 06/15/22 12:52:00 EDT, ; Start Date: 06/15/22 Status: Ordered lithium 300 mg oral tablet 1 tablet = 300 mg, By Mouth, 2 times a day, # 60 tablet, 0 Refills, Maintenance, 09/14/22 13:05:00 EST, Tablet, [facility], Partial fill upon patient request if the prescription is for a schedule II opioid drug., 163, cm, 09/14/22 8:12:0... Start Date: 09/14/22 Status: Ordered medroxyPROGESTERone 150 mg/mL intramuscular suspension 1 mL, Intramuscular, Every 3 months, # 1 mL, 3 Refills, Soft Stop, 03/13/21 13:05:00 EDT, [facility]/pharmacy #[id number], 164, cm, 03/13/21 9:51:00 EDT, Height, 112, kg, 10/14/20 10:13:00 EST, Dry Weight Start Date: 03/13/21 Status: Ordered olanzapine 2.5 mg oral tablet 2.5 mg, 1, tablet, By Mouth, Daily, PRN, Agitation/Psychosis, # 14 tablet, Refills 1, Tot. Refills 1, Maintenance, Other, 10/16/22 12:36:00 EST, Route to Pharmacy Electronically, [facility]/pharmacy #[id number], Partial fill upon patient request if the prescriptio... Start Date: 10/16/22 Stop Date: 11/13/22 Status: Ordered omeprazole 20 mg oral enteric coated capsule 1 capsule, By Mouth, Daily, # 90 capsule, 0 Refills, [id number], 163, cm, 09/24/21 16:23:00 EST, Height, 112, kg, 10/14/20 10:13:00 EST, Dry Weight Start Date: 03/04/22 Status: Ordered perphenazine 16 mg oral tablet 16 mg, 1, tablet, By Mouth, 2 times a day, take with 4mg tablet for a total dose of 20 mg 2 times daily, # 60 tablet, Refills 0, Tot. Refills 0, Maintenance, 09/14/22 13:06:00 EST, Route to Pharmacy Electronically, [facility], Partial fi... Start Date: 09/14/22 Status: Ordered perphenazine 4 mg oral tablet 4 mg, 1, tablet, By Mouth, 2 times a day, take with 16 mg tablet for a total dose of 20 mg 2 times daily, # 60 tablet, Refills 0, Tot. Refills 0, Maintenance, 09/14/22 13:06:00 EST, Route to PharmacyElectronically, [facility] 3, Partial f... Start Date: 09/14/22 Status: Ordered perphenazine 8 mg oral tablet 8 mg, 1, tablet, By Mouth, Daily, at 12 PM, # 30 tablet, Refills 0, Tot. Refills 0, Maintenance, 09/14/22 13:06:00 EST, Route to Pharmacy Electronically, [facility], Partial fill upon patient request if the prescription is for a schedule... Start Date: 09/14/22 Status: Ordered Senna 8.6 mg oral tablet 8.6 mg, 1, tablet, By Mouth, Daily at bedtime, # 30 tablet, Refills 0, Tot. Refills 0, Maintenance,09/14/22 13:06:00 EST, Route to Pharmacy Electronically, [facility] 3 Tablet, Partial fill upon patient request if the prescription is for... Start Date: 09/14/22 Status: Ordered simethicone 125 mg oral capsule See Instructions, TAKE 1 CAPSULE BY MOUTH THREE TIMES A DAY AFTER MEALS AND AT BEDTIME NEEDED, #48 capsule, 11 Refills, Maintenance, 09/24/22 18:10:00 EST, [id number], 163, cm, 09/14/22 8:12:00 EST, Height, 87.9, kg, 09/09/22 12:06:00 EST, Start Date: 09/24/22 Status: Ordered ZyPREXA 2.5 mg oral tablet 2.5 mg, 1, tablet, By Mouth, Daily at bedtime, # 14 tablet, Refills 0, Tot. Refills 0, Maintenance,10/16/22 11:51:00 EST, Route to Pharmacy Electronically, [facility]/pharmacy #[id number], Partial fill upon patient request if the [...] Expert 2Really accelerated when seroquel dose increased Results Radiology Reports * Exam Date Time Procedure Performing Provider Status 11/22/22 10:16 PM US Doppler Ext Lower Venous Right Sharan Jacobson; Geena (Verified) Notes: (US Doppler Ext Lower Venous Right) Reason For Exam: Pain in limb;Other: RESULT: US Doppler Ext Lower Venous Right US Doppler Ext Lower Venous Right HX OF PRESENT ILLNESS: Pt c o bilateral leg pain since she was born.; Reason: Pain in limb; Clinical Question(s): Thrombus COMPARISON: 07/12/2013 IMAGING TECHNIQUE: Ultrasound of the veins from the groin through the calf was performed using grayscale, color, and spectral Doppler ultrasound assessing for complete compressibility and normal flowcharacteristics. FINDINGS: Common femoral vein: Patent. No thrombosis. Femoral vein: Patent. No thrombosis. Popliteal vein: Patent. No thrombosis. Gastrocnemius veins: The visualized portions are patent without evidence of thrombosis. Peroneal veins: The visualized portions are patent without evidence of thrombosis. Posterior tibial veins: The visualized portions are patent without evidence of thrombosis. Contralateral common femoral vein: Patent. No thrombosis. IMPRESSION: No evidence of deep venous thrombosis. WSN: [id number] Ordering Physician: Warren Razo Dictated By: Keenan Carrillo MD Dictated Date/Time: 11/22/22 10:27 p Reviewed By: Keenan Carrillo MD Signed By: Keenan Carrillo MD Signed Date/Time: 11/22/22 10:27 pm Transcribed By: TOMMY Transcribed Date/Time: 11/22/22 10:26 pm Vital Signs Most recent to oldest [Reference Range]: 1 2 3 Oxygen Saturation [94-100 %] 97 % (11/23/22 1:10 AM) 98 % (11/22/22 11:30 PM) 100 % (11/22/22 8:18 PM) Pulse Rate [55-90 bpm] 79 bpm (11/23/22 1:10 AM) 78 bpm (11/22/22 11:30 PM) 88 bpm (11/22/22 8:18 PM) Blood Pressure [90-138/55-84 mm Hg] 138/84mm Hg (11/23/22 1:10 AM) 142/78mm Hg *H* (11/22/22 11:30 PM) 142/98mm Hg *H* (11/22/22 8:18 PM) Respiratory Rate [16-30 br/min] 17 br/min (11/23/22 1:10 AM) 17 br/min (11/22/22 11:30 PM) 18 br/min (11/22/22 8:18 PM) Temperature [96.8-100.4 DegF] 98.6 DegF (11/23/22 1:10 AM) 98.7 DegF (11/22/22 11:30 PM) 99.0 DegF (11/22/22 8:18 PM) Mode of Delivery (Oxygen) Room air (11/23/22 1:10 AM) Room air (11/22/22 11:30 PM) Room air (11/22/22 8:18 PM) Blood pressure sites Arm, left (11/23/22 1:10 AM) Arm, left (11/22/22 11:30 PM) Arm, left (11/22/22 8:18 PM) Temperature Route Oral (11/23/22 1:10 AM) Oral (11/22/22 11:30 PM) Oral (11/22/22 8:18 PM) Social History Social History Type Response Tobacco Use: 4 or less cigar ettes(less than 1/4 pack)/day in last 30 days. Sex History and physical note * Event Display: History and Physical Hospital Authored Date: [id number] [place], [place] PSYCHIATRIC HISTORY ASSESS EXAM NAME: LROETTA CELESTIN : [birth year] MR#: [id number] PCP: ADMITTED: 12/20/15 DATE OF SERVICE: 12/20/15 HPI - Hosp Psych H P Chief Complaint Pt was sent from [facility] here for hallunication History of Present Illness 24 yo AA Female with known schizophrenia was seen at [facility] for halluc[place]. Apparently pt has been lived in usp and sent to [facility] [...] QDAY Haloperidol* (Haldol*) 5 MG PO BID [place] Carbonate SR* (Lithobid*) 300 MG PO QDAY liTHIum Carbonate SR* ([place] Carbonate SR*) 450 MG PO 4PM Discontinued Reported Medications Citalopram* (CeleXA*) 40 MG PO QDAY Benztropine* 0.5 MG PO BID buPROPion SR* 150 MG PO [id number] Trazodone* (Desyrel*) 100 MG PO HS RisperiDONE* [...] 324 MG QDAY 12/20 09 CKD PO [place] Carbonate 300 MG QDAY 12/20 09 AC PO Polyethylene Glycol 17 GM QDAY 12/20 09 CKD PO Benztropine Mesylate 1 MG 0900,1700 12/19 1700 AC PO Docusate Sodium 100 MG 0900,1700 12/19 1700 AC PO Haloperidol 5 MG 0900,1700 12/19 1700 AC PO [place] Carbonate 450 MG PM 12/19 1700 AC [...] fullly ambulartory Care Level Complexity of Care [id number] Comprehensive history, comprehensive examination, medical decision making of low complexity, at least 20 minutes at the bedside, patient's floor/ unit. ESigned by: YAS GARZA MD Date:12/21/15 Time:1633 / NOT FOR REDISCLOSURE WITHOUT PATIENT'S INFORMED CONSENT Admission evaluation note * Event Display: Admit Notes Authored Date: [id number] [place], [place] PSYCHIATRIC ADMISSION NOTE NAME: LORETTA CELESTIN : 89 HOSPITAL #: [id number] MR #: [id number] CHART LOC: PCP: DICTATING: MARIA R Robin MD DATE OF ADMISSION: 12/20/15 DATE OF SERVICE: 12/21/15 CHIEF COMPLAINT: This 23-year-old woman was admitted to [facility] on 12/20/15 on a Conditional Voluntary [...] is living in a usp. Came to [place] with her grandmother in [...] year NAME: LORETTA CELESTIN : 89 HOSP#: [id number] MR#: [id number] CHART LOC: PCP: DICTATING: MARIA R Robin MD PSYCHIATRIC ADMISSION NOTE CONTINUED: unknown. TREATMENT PLAN: Resume outpatient medications, physical exam, collateral contact with community caregivers and social network, safety plan, aftercare plan and observe. 927 T:sn DD:[id number] TD:0745 DT:[id number] TT:0924 JOB:[id number] MICHELLE/SHANNON MARIA R Robin MD ESigned by: Date:12/22/15 Time:642 NOT FOR REDISCLOSURE WITHOUT PATIENT'S INFORMED CONSENT Note * Dung GILLIAM, Warren Santana: PERFORM Event Display: Patient Education Leaflets Authored Date: [id number] Chronic Pain ?? [id number] Chronic Pain Pain??serves an important role. It lets you know something is wrong that needs your attention. Whenthe body heals, pain normally goes away. When pain lasts longer than 3 months, it's called chronic pain. This is pain that's present even after the body has healed.??Chronic pain can cause mood problems and get in the way of your relationships and your daily life. A number of conditions can cause chronic pain. Some of the more common causes include: ??? Previous surgery ??? An old injury ??? Infection ??? Diseases such as diabetes ??? Nerve damage??? Back injury ??? Arthritis ??? Migraine or other headaches ??? Fibromyalgia ??? Cancer Depression and stress can make chronic pain symptoms worse.??In some cases, a cause for the pain can't be found.?? Treatment Treatment??can??greatly reduce??pain.??In many cases,??pain can become less severe, occur less often, and interfere less with your daily life.??Chronic pain is often treated with a combination of medicines,??therapies, and lifestyle changes. You will work closely with your healthcare provider to find a treatment plan that works best for you. ??? Ask your healthcare provider for a referral to a pain management specialty center. These can provide the most recent and proven pain management strategies, along with emotional support and comprehensive services. ??? Several different types of medicines may be prescribed for chronic pain. Work with your healthcare provider to develop a medicine planthat helps manage your pain. ??? Physical therapy can help reduce certain types of chronic pain. ??? Occupational therapy teaches you how to do routine tasks of daily living in ways that lessen your discomfort. ??? Counseling can help you??cope better with stress and pain. ??? Other therapies such as meditation, yoga, biofeedback, massage, and acupuncture can also help manage chronic pain. ??? Kimberley nging certain habits can help reduce chronic pain: o Eat healthy o Develop an exercise routine o Get enough sleep?? o Stop smoking and limit alcohol use o Lose excess weight ?? Follow-up care Follow up with your??healthcare provider as advised. Let your??healthcare provider??know if your current treatment plan is working or if changes are needed. ?? To learn more For more information, contact: ??? [place] [employer] at americanheadachesociety.org or 961-988-6261 ??? [place] [employer] at theacpa.org or 491-886-0956 ?? Last Reviewed Date: 2022 ?? [employer]. All rights reserved. This information is not intended as a substitute for professional medical care. Always follow your healthcare professional's instructions. ?? * BHSPowerscribe , ROXANNE S: TRANSCRIBE Keenan Carrillo MD S: VERIFY Event Display: Result: Authored Date: [id number] US Doppler Ext Lower Venous Right HX OF PRESENT ILLNESS: Pt c o bilateral leg pain since she was born.; Reason: Pain in limb; Clinical Question(s): Thrombus COMPARISON: 07/12/2013 IMAGING TECHNIQUE: Ultrasound of the veins from the groin through the calf was performed using grayscale, color, and spectral Doppler ultrasound assessing for complete compressibility and normal flowcharacteristics. FINDINGS: Common femoral vein: Patent. No thrombosis. Femoral vein: Patent. No thrombosis. Popliteal vein: Patent. No thrombosis. Gastrocnemius veins: The visualized portions are patent without evidence of thrombosis. Peroneal veins: The visualized portions are patent without evidence of thrombosis. Posterior tibial veins: The visualized portions are patent without evidence of thrombosis. Contralateral common femoral vein: Patent. No thrombosis. IMPRESSION: No evidence of deep venous thrombosis. WSN: [id number] Ordering Physician: Warren Razo Dictated By: Keenan Carrillo MD Dictated Date/Time: 11/22/22 10:27 p Reviewed By: Keenan Carrillo MD Signed By: Keenan Carrillo MD Signed Date/Time: 11/22/22 10:27 pm Transcribed By: TOMMY Transcribed Date/Time: 11/22/22 10:26 pm Patient Care team information Care Team Personnel Name: Dean Rivas RN Position: S RN Member Role: Primary Care Nurse Name: Fatoumata Stokes DO Position: [facility] Primary Care Physician Member Role: PCP Address: Address: [address] [place] [address] [facility] [place] [address]- [place] Name: Britt Polanco RN Position: S RN Member Role: Primary Care Nurse Name: Anyi Avendano RN Position: [facility] RN Supv Member Role: Primary Care Nurse Name: Awilda Grider RN Position: S RN Member Role: Primary Care Nurse Name: Chintan Leach DO Position: [facility] Renal MD Member Role: Lifetime Consulting Physician Address: Address: [address] [place], [place] [address] [place] [address]- [place] Name: Chandler Ye RN Position: [facility] RN Member Role: Primary Care Nurse Name: Apurva Ji RN Position: [facility] ED RN W/OE and Tasks Member Role: Primary Care Nurse Name: Cordelia Matias RN Position: [facility] AMB Nurse Member Role: Primary Care Nurse Name: Radha Gutierrez Position: [facility] Outreach Member Role: Primary Care Nurse Name: Keenan Vnicent RN Position: [facility] SN RN Member Role: Primary Care Nurse Name: Sasha Patricio RN Position: [facility] RN Member Role: Primary Care Nurse Name: Virgie Angel Position: [facility] RN Member Role: Primary Care Nurse Name: Azeb Gusman RN Position: [facility] RN Member Role: Primary Care Nurse Name: Meredith Martinez RN Position: [facility] RN Member Role: Primary Care Nurse Name: Anika Gotti RN Position: [facility] RN Supv Member Role: Primary Care Nurse Name: Kennedi Roca RN Position: [facility] RN Member Role: Primary Care Nurse Name: Justina Walker RN Position: [facility] RN Member Role: Primary Care Nurse Name: Kenia Zuniga RN Position: [facility] PCO w/OE and EZ Script Member Role: Primary Care Nurse Name: Ivone Hidalgo RN Position: [facility] RN Member Role: Primary Care Nurse Name: Mazin Penn MD Position: [facility] Psychiatry MD Member Role: Lifetime Consulting Physician Address: Address: [address] [place] [address]- Name: Warren Aviles Position: [facility] Associate Professional Member Role: ED Physician Awake Overnight Monitor Address: Address: [address] [place] [address]- Name: Adriel Tirado RN Position: [facility] ED RN W/OE and Tasks Member Role: Patient Care Provider Name: April Bryan MD Position: [facility] Resident Member Role: Admitting Physician Address: Address: [address] [place] [address]- Care Team Related Persons Name: STEW PECK Address: home [address] [place] [address] Name: GROUP GILBERT PETER Address: home [address] [place] [address] Name: PRISCA WESTON Address: home [address] [place] [address]
--- OUTSIDE RECORDS SUMMARY | 2023-08-16 12:29 | XMS_ITS | Continuity of Care Document ---
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 Name Role Phone Fatoumata Stokes DO Primary Care Physician Encounter [facility] Date(s): 05/02/23 - 05/09/23 [facility] [address] [place], [place] [address] Encounter Diagnosis Severe obesity (BMI 35.0-39.9) with comorbidity(Discharge Diagnosis) - 05/02/23 Paranoid delusion(Discharge Diagnosis) - 05/02/23 Psychosis(Discharge Diagnosis) - 05/02/23 Schizoaffective schizophrenia(Discharge Diagnosis) - 05/02/23 Attending Physician: Fatoumata Stokes DO Allergies, Adverse [...] 09/29/22 9:09:00 EST, Route to Pharmacy Electronically, [id number], 163, cm, 09/14/22 8:12:00 EST, Height, 87.9, kg, 09/09/22 12:06:00 EST, Dry Weight Start Date: 09/29/22 Status: Ordered benztropine 1 mg oral tablet 1 mg, 1, tablet, By Mouth, 2 times a day, # 60 tablet, Refills 0, Tot. Refills 0, Maintenance, 09/14/22 13:02:00 EST, Route to Pharmacy Electronically, [facility], 163, cm, 09/14/22 8:12:00 EST, Height, 87.9, kg, 09/09/22 12:06:00 EST, D... Start Date: 09/14/22 Stop Date: 10/14/22 Status: Ordered cetirizine 10 mg oral tablet 1 tablet, By Mouth, Daily, # 30 tablet, 0 Refills, Maintenance, 09/14/22 13:03:00 EST, [facility], 163, cm, 09/14/22 8:12:00 EST, Height, 87.9, kg, 09/09/22 12:06:00 EST, Dry Weight Start Date: 09/14/22 Status: Ordered docusate sodium 100 mg oral capsule 1 capsule, By Mouth, 2 times a day, # 60 capsule, 11 Refills, 10/06/22 16:34:00 EST, [id number] 163, cm, 09/14/22 8:12:00 EST, Height, 87.9, kg, 09/09/22 12:06:00 EST, Dry Weight Start Date: 10/06/22 Status: Ordered estradiol 0.1 mg/24 hours twice weekly transdermal film, extended release See Instructions, apply 1 patch Topically every tuesday and , # 24 patch, 0 Refills, Maintenance, 11/24/22 12:36:00 EST, [facility]acy #[id number], Partial fill upon patient request if the prescription is for a schedule II opioid drug., 162, cm, 11/23... Start Date: 11/24/22 Status: Ordered Estradiol Patch 0.1 mg/24 hours twice weekly transdermal film, extended release See Instructions, APPLY 1 PATCH TOPICALLY EVERY TUESDAY & TUESDAY, # 8 patch, 0 Refills, 09/14/22 13:03:00 EST, [facility], APPLY 1 PATCH TOPICALLY EVERY TUESDAY & TUESDAY, 163,cm, 09/14/22 8:12:00 EST, Height, 87.9, kg, 09/09/22 12:06:... Start Date: 09/14/22 Status: Ordered ferrous sulfate 325 mg oral enteric coated tablet See Instructions, TAKE 1 TABLET BY MOUTH EVERY DAY, # 30 tablet, Refills 6, Tot. Refills 6, Maintenance, 05/06/23 14:25:00 EDT, Instructions Replace Required Details, Route to Pharmacy Electronically, [facility], 162, cm, 05/02/23 13:11:00 E... Start Date: 05/06/23 Status: Ordered ferrous sulfate 325 mg oral enteric coated tablet 1, tablet, By Mouth, Every other day, may take with food to minimize abdominal discomfort, # 15 tablet, Refills 0, Tot. Refills 0, 09/14/22 13:04:00 EST, Route to Pharmacy Electronically, [facility], 163, cm, 09/14/22 8:12:00 EST, Height... [...] 0 Refills, Maintenance, 09/14/22 13:05:00 EST, Tablet, [facility], Partial fill upon patient request if [...] 10/16/22 12:36:00 EST, Route to Pharmacy Electronically, [facility] #[id number], Partial fill upon patient request if the prescriptio... Start Date: 10/16/22 Stop Date: 11/13/22 Status: Ordered omeprazole 20 mg oral enteric coated capsule 1 capsule, By Mouth, Daily, # 90 capsule, 0 Refills, [id number], 163, cm, 09/24/21 16:23:00 EST, Height, 112, kg, 10/14/20 10:13:00 EST, Dry Weight Start Date: 03/04/22 Status: Ordered perphenazine 16 mg oral tablet 16 mg, 1, tablet, By Mouth, 2 times a day, take with 4mg tablet for a total dose of 20 mg 2 times daily, # 60 tablet, Refills 0, Tot. Refills 0, Maintenance, 09/14/22 13:06:00 EST, Route to Pharmacy Electronically, [facility], Partial fi... Start Date: 09/14/22 Status: Ordered perphenazine 4 mg oral tablet 4 mg, 1, tablet, By Mouth, 2 times a day, take with 16 mg tablet for a total dose of 20 mg 2 times daily, # 60 tablet, Refills 0, Tot. Refills 0, Maintenance, 09/14/22 13:06:00 EST, Route to PharmacyElectronically, [facility], Partial f... Start Date: 09/14/22 Status: Ordered perphenazine 8 mg oral tablet 8 mg, 1, tablet, By Mouth, Daily, at 12 PM, # 30 tablet, Refills 0, Tot. Refills 0, Maintenance, 09/14/22 13:06:00 EST, Route to Pharmacy Electronically, [facility], Partial fill upon patient request [...] Maintenance,09/14/22 13:06:00 EST, Route to Pharmacy Electronically, [facility] Tablet, Partial fill upon patient request if the prescription is for... Start Date: 09/14/22 Status: Ordered simethicone 125 mg oral capsule See Instructions, TAKE 1 CAPSULE BY MOUTH THREE TIMES A DAY AFTER MEALS AND AT BEDTIME NEEDED, #48 capsule, 11 Refills, Maintenance, 09/24/22 18:10:00 EST, [id number], 163, cm, 09/14/22 8:12:00 EST, Height, 87.9, kg, 09/09/22 12:06:00 EST, Start Date: 09/24/22 Status: Ordered ZyPREXA 2.5 mg oral tablet 2.5 mg, 1, tablet, By Mouth, Daily at bedtime, # 14 tablet, Refills 0, Tot. Refills 0, Maintenance,10/16/22 11:51:00 EST, [id number], Partial fill upon patient request if the [...] Effective Dates Health Status Clinical Service Informant Severe obesity (BMI 35.0-39.9) with comorbidity Discharge Diagnosis 05/02/23 Paranoid delusion Discharge Diagnosis 05/02/23 Psychosis Discharge Diagnosis 05/02/23 Schizoaffective schizophrenia Discharge Diagnosis 05/02/23 Vital Signs Most recent to oldest [Reference Range]: 1 Height 162 cm (05/02/23 1:11 PM) Weight 97.8 kg (05/02/23 1:11 PM) Oxygen Saturation [94-100 %] 100 % (05/02/23 1:11 PM) Pulse Rate [55-90 bpm] 63 bpm (05/02/23 1:11 PM) Body Mass Index [18.5-24.99 kg/m2] 37.27 kg/m2 *>HHI* (05/02/23 1:11 PM) Blood Pressure [90-138/55-84 mm Hg] 127/ 82mm Hg (05/02/23 1:11 PM) Temperature [96.8-100.4 DegF] 98.7 DegF (05/02/23 1:11 PM) Mode of Delivery (Oxygen) Room air (05/02/23 1:11 PM) Blood pressure sites Arm, right (05/02/23 1:11 PM) Temperature Route Oral (05/02/23 1:11 PM) Weight Obtained Via Standing scale (05/02/23 1:11 PM) Social History Social History Type Response Tobacco Use: 4 or less cigar ettes(less than 1/4 pack)/day in last 30 days. Sex History and physical note * Event Display: History and Physical Hospital Authored Date: [id number] [place], [place] PSYCHIATRIC HISTORY ASSESS EXAM NAME: LORETTA CELESTIN : [birth year] MR#: [id number] PCP: ADMITTED: 12/20/15 DATE OF SERVICE: 12/20/15 HPI - Hosp Psych H P Chief Complaint Pt was sent from [facility] ER here for hallunication History of Present Illness 24 yo AA Female with known schizophrenia was seen at [facility] for hallucination. Apparently pt has been lived in senior living and sent to [facility] for acute exacerbation of her underline schizophrenia. [...] QDAY Haloperidol* (Haldol*) 5 MG PO BID Nuremberg Carbonate SR* (Lithobid*) 300 MG PO QDAY liTHIum Carbonate SR* (Nuremberg Carbonate SR*) 450 MG PO 4PM Discontinued Reported Medications Citalopram* (CeleXA*) 40 MG PO QDAY Benztropine* 0.5 MG PO BID buPROPion SR* 150 MG PO [id number] Trazodone* (Desyrel*) 100 MG PO HS RisperiDONE* [...] 324 MG QDAY 12/20 09 CKD PO Nuremberg Carbonate 300 MG QDAY 12/20 09 AC PO Polyethylene Glycol 17 GM QDAY 12/20 09 CKD PO Benztropine Mesylate 1 MG 0900,12/19 1700 AC PO Docusate Sodium 100 MG 0900,12/19 1700 AC PO Haloperidol 5 MG 0900,12/19 1700 AC PO Nuremberg Carbonate 450 MG PM 12/19 1700 AC PO Risperidone 0.5 MG 09,12/19 1700 AC PO Senna 17.2 MG 09,12/19 [...] fullly ambulartory Care Level Complexity of Care [id number] Comprehensive history, comprehensive examination, medical decision making of low complexity, at least 20 minutes at the bedside, patient's floor/ unit. ESigned by: YAS GARZA MD Date:12/21/15 Time:1633 / NOT FOR REDISCLOSURE WITHOUT PATIENT'S INFORMED CONSENT Admission evaluation note * Event Display: Admit Notes Authored Date: [id number] [place], [place] PSYCHIATRIC ADMISSION NOTE NAME: LORETTA CELESTIN : 89 HOSPITAL #: [id number] MR #: [id number] CHART LOC: PCP: DICTATING: MARIA R Robin MD DATE OF ADMISSION: 12/20/15 DATE OF SERVICE: 12/21/15 CHIEF COMPLAINT: This 23-year-old woman was admitted to [facility] on 12/20/15 on a Conditional Voluntary [...] living in a senior living. Came to [place] with her grandmother in 2013, was very [...] year NAME: LORETTA CELESTIN : 89 HOSP#: [id number] MR#: [id number] CHART LOC: PCP: DICTATING: MARIA R Robin MD PSYCHIATRIC ADMISSION NOTE CONTINUED: unknown. TREATMENT PLAN: Resume outpatient medications, physical exam, collateral contact with community caregivers and social network, safety plan, aftercare plan and observe. 927 T: DD:[id number] TD:0745 DT:[id number] TT:0924 JOB:[id number] MICHELLE/SHANNON MARIA R Robin MD ESigned by: Date:12/22/15 Time:642 NOT FOR REDISCLOSURE WITHOUT PATIENT'S INFORMED CONSENT Note * Christiane Rizo: PERFORM, SIGN, VERIFY Event Display: Patient Education/Instruction Authored Date: [id number] [facility] Clinical Summary Name LORETTA CELESTIN Age 32 Years 1990 PCP Fatoumata Stokes DO PCP Visit Date 05/02/2023 13:01:00 Additional Instructions: Scheduled Appointments?? Future Appointments ?No Future Appointments Scheduled Follow-Up Instructions ?? Diagnosis Hyperglycemia, unspecified; Delusional disorders; Unspecified psychosis not due to a substance or known physiological condition; Schizoaffective disorder, depressive type; Morbid (severe) obesity dueto excess calories; Anemia, unspecified; Hematuria, unspecified Medications: Please continue your medications until treatment is completed or stopped by your provider. Discuss any questions related to medications with your provider. New Medications [facility] #[id number], [address], [place] [id number], [phone] Polyethylene Glycol 3350 (MiraLax oral powder for reconstitution) 17 gram Oral Daily. dissolve in water before taking; hold for constipation. Refills: 1. Next Dose: Medications to Continue Taking That Have Changed [id number], [address], [place] [id number], [phone] - Senna (Senna 8.6 mg oral tablet) 1 tab(s) Oral Daily at Bedtime as needed Constipation. Refills: 0. Next Dose: These medications were not printed or sent to your pharmacy - Senna (Senna 8.6 mg oral tablet) 1 tab(s) Oral Daily at Bedtime. Refills: 0. Next Dose: Medications to Continue with No Changes These medications were not printed or sent to your pharmacy Acetaminophen (acetaminophen 325 mg oral tablet) 2 tab(s) Oral every 8 hours as needed NEEDED FOR PAIN. Refills: 4. Next Dose: Benztropine (benztropine 1 mg oral tablet) 1 tab(s) Oral twice a day for 30 Days. Refills: 0. Next Dose: Cetirizine (cetirizine 10 mg oral tablet) 1 tab(s) Oral Daily. Refills: 0. Next Dose: Docusate (docusate sodium 100 mg oral capsule) 1 capsule Oral twice a day. Refills: 11. Next Dose: Estradiol (estradiol 0.1 mg/24 hours twice weekly transdermal film, extended release) apply 1 patchTopically every tuesday and . Refills: 0. Next Dose: Estradiol (Estradiol Patch 0.1 mg/24 hours twice weekly transdermal film, extended release) APPLY 1PATCH TOPICALLY EVERY TUESDAY & TUESDAY. Refills: 0. Next Dose: Ferrous Sulfate (ferrous sulfate 325 mg oral enteric coated tablet) 1 tab(s) Oral every other day. may take with food to minimize abdominal discomfort. Refills: 0. Next Dose: Ibuprofen (ibuprofen 800 mg oral tablet) 1 tab(s) Oral 3 times a day as needed. Next Dose: Nuremberg (lithium 300 mg oral tablet) 1 tab(s) Oral twice a day. Refills: 0. Next Dose: MedroxyPROGESTERone (medroxyPROGESTERone 150 mg/mL intramuscular suspension) 1 Milliliter Intramuscular Every 3 months. Refills: 3. Next Dose: Olanzapine (olanzapine 2.5 mg oral tablet) 1 tab(s) Oral Daily as needed Other for 14 Days. Agitation/Psychosis. Refills: 1. Next Dose: Olanzapine (ZyPREXA 2.5 mg oral tablet) 1 tab(s) Oral Daily at Bedtime for 14 Days. Refills: 0. Next Dose: Omeprazole (omeprazole 20 mg oral enteric coated capsule) 1 capsule Oral Daily. Refills: 0. Next Dose: Perphenazine (perphenazine 16 mg oral tablet) 1 tab(s) Oral twice a day. take with 4mg tablet for atotal dose of 20 mg 2 times daily. Refills: 0. Next Dose: Perphenazine (perphenazine 4 mg oral tablet) 1 tab(s) Oral twice a day. take with 16 mg tablet for a total dose of 20 mg 2 times daily. Refills: 0. Next Dose: Perphenazine (perphenazine 8 mg oral tablet) 1 tab(s) Oral Daily. at 12 PM. Refills: 0. Next Dose: Simethicone (simethicone 125 mg oral capsule) TAKE 1 CAPSULE BY MOUTH THREE TIMES A DAY AFTER MEALSAND AT BEDTIME NEEDED. Refills: 11. Next Dose: Allergy Info:?? cloZAPine; Invega; paliperidone; Haldol; Flagyl Medications Given This Visit Future Orders ?No future orders Vital Signs Height 162 cm Weight 97.8 kg BMI 37.27 kg/m2 Blood Pressure 127 mm Hg/82 mm Hg Temperature 98.7 DegF Pulse Rate 63 bpm Respiratory Rate 02 Sat Mode of Delivery 100 %/Room air You can now view a summary of your hospital visit from the comfort of your home through a free online portal called [employer]. [employer] is a website that allows you to securely view your medical information including discharge summary, medications and follow-up visits. ??You can alsosend a secure electronic message to your doctor???s office to request appointments, renew medications or just ask a question. You can enroll at [email or web address] or register during your next office visit. [...] primary care provider, you may find a [facility] provider by calling [facility] [employer] at [phone]. For information about the plan of care [...] Team Personnel Name: Dean Rivas RN Position: [facility] RN Member Role: Primary Care Nurse Name: Fatoumata Stokes DO Position: [facility] Physician - Primary Care Member Role: PCP Address: Address: [address] [place] [address] Adult [place] [address]- Name: Britt Polanco RN Position: [facility] RN Member Role: Primary Care Nurse Name: Awilda Grider RN Position: [facility] RN Member Role: Primary Care Nurse Name: Chintan Leach DO Position: [facility] Renal MD Member Role: Lifetime Consulting Physician Address: Address: [address] [place] [address] [address] [facility] [place] [address]- Name: Chandler Ye RN Position: [facility] RN Member Role: Primary Care Nurse Name: Apurva Ji RN Position: [facility] ED RN W/OE and Tasks Member Role: Primary Care Nurse Name: Cordelia Matias RN Position: [facility] AMB Nurse Member Role: Primary Care Nurse Name: Radha Gutierrez Position: [facility] Outreach Member Role: Primary Care Nurse Name: Keenan Vincent RN Position: [facility] SN RN Member Role: Primary Care Nurse Name: Sasha Patricio RN Position: [facility] RN Member Role: Primary Care Nurse Name: Virgie Angel Position: [facility] RN Member Role: Primary Care Nurse Name: Azeb Gusman RN Position: [facility] RN Member Role: Primary Care Nurse Name: Meredith Martinez RN Position: [facility] RN Member Role: Primary Care Nurse Name: Anika Gotti RN Position: [facility] RN Member Role: Primary Care Nurse Name: Justina Walker RN Position: [facility] RN Member Role: Primary Care Nurse Name: Kenia Zuniga RN Position: [facility] PCO w/OE and EZ Script Member Role: Primary Care Nurse Name: Ivone Hidalgo RN Position: [facility] RN Member Role: Primary Care Nurse Name: Mazin Pnen MD Position: [facility] Physician - Behavioral Health Member Role: Lifetime Consulting Physician Address: Address: [address] [place] [address]- [place] Care Team Related Persons Name: DORITA MCCOLLUM Address: [address] [place] [address] Name: STEW PECK Address: home [address] [place] [address] Name: LISA PALMA Address: [address] [place] [address]
--- OUTSIDE RECORDS SUMMARY | 2023-08-16 12:29 | XMS_ITS | Continuity of Care Document ---
Author Name Unknown Organization [facility] Address [address] [place] [id number]- Care Team Providers Care Substance Addiction Coordinator Name Role Phone Fatoumata Stokes DO Primary Care Physician Encounter [facility] Date(s): 05/16/23 - 05/17/[address] [address]- Encounter Diagnosis Depression(Final) - 05/17/23 Schizophrenia(Final) - 05/17/23 Discharge Disposition: A-D/C Home Attending Physician: Janusz [...] 09/29/22 9:09:00 EST, Route to Pharmacy Electronically, [id number], 163, cm, 09/14/22 8:12:00 EST, Height, 87.9, kg, 09/09/22 12:06:00 EST, Dry Weight Start Date: 09/29/22 Status: Ordered benztropine 1 mg oral tablet 1 mg, 1, tablet, By Mouth, 2 times a day, # 60 tablet, Refills 0, Tot. Refills 0, Maintenance, 09/14/22 13:02:00 EST, Route to Pharmacy Electronically, [facility], 163, cm, 09/14/22 8:12:00 EST, Height, 87.9, kg, 09/09/22 12:06:00 EST, D... Start Date: 09/14/22 Stop Date: 10/14/22 Status: Ordered cetirizine 10 mg oral tablet 1 tablet, By Mouth, Daily, # 30 tablet, 0 Refills, Maintenance, 09/14/22 13:03:00 EST, [facility], 163, cm, 09/14/22 8:12:00 EST, Height, 87.9, kg, 09/09/22 12:06:00 EST, Dry Weight Start Date: 09/14/22 Status: Ordered docusate sodium 100 mg oral capsule 1 capsule, By Mouth, 2 times a day, # 60 capsule, 11 Refills, 10/06/22 16:34:00 EST, [facility]/pharmacy #[id number], 163, cm, 09/14/22 8:12:00 EST, Height, 87.9, kg, 09/09/22 12:06:00 EST, Dry Weight Start Date: 10/06/22 Status: Ordered estradiol 0.1 mg/24 hours twice weekly transdermal film, extended release See Instructions, apply 1 patch Topically every tuesday and , # 24 patch, 0 Refills, Maintenance, 11/24/22 12:36:00 EST, [facility]/pharmacy #[id number], Partial fill upon patient request if the prescription is for a schedule II opioid drug., 162, cm, 11/23... Start Date: 11/24/22 Status: Ordered Estradiol Patch 0.1 mg/24 hours twice weekly transdermal film, extended release See Instructions, APPLY 1 PATCH TOPICALLY EVERY TUESDAY & TUESDAY, # 8 patch, 0 Refills, 09/14/22 13:03:00 EST, [facility], APPLY 1 PATCH TOPICALLY EVERY TUESDAY & TUESDAY, 163,cm, 09/14/22 8:12:00 EST, Height, 87.9, kg, 09/09/22 12:06:... Start Date: 09/14/22 Status: Ordered ferrous sulfate 325 mg oral enteric coated tablet See Instructions, TAKE 1 TABLET BY MOUTH EVERY DAY, # 30 tablet, Refills 6, Tot. Refills 6, Maintenance, 05/06/23 14:25:00 EDT, Instructions Replace Required Details, Route to Pharmacy Electronically, [facility], 162, cm, 05/02/23 13:11:00 E... Start Date: 05/06/23 Status: Ordered ferrous sulfate 325 mg oral enteric coated tablet 1, tablet, By Mouth, Every other day, may take with food to minimize abdominal discomfort, # 15 tablet, Refills 0, Tot. Refills 0, 09/14/22 13:04:00 EST, Route to Pharmacy Electronically, [facility], 163, cm, 09/14/22 [...] 0 Refills, Maintenance, 09/14/22 13:05:00 EST, Tablet, [facility], Partial fill upon patient request if the prescription is for a schedule II opioid drug., 163, cm, 09/14/22 8:12:0... Start Date: 09/14/22 Status: Ordered medroxyPROGESTERone 150 mg/mL intramuscular suspension 1 mL, Intramuscular, Every 3 months, # 1 mL, 3 Refills, Soft Stop, 03/13/21 13:05:00 EDT, [facility]/pharmacy #[id number], 164, cm, 03/13/21 9:51:00 EDT, Height, 112, kg, 10/14/20 10:13:00 EST, Dry Weight Start Date: 03/13/21 Status: Ordered MiraLax oral powder for reconstitution = 17 Gm, By Mouth, Daily, dissolve in water before taking; hold for diarrhea, # 527 Gm, 1 Refills, Maintenance, 05/06/23 15:37:00 EDT, REC Powder, [facility], Partial fill upon patient request if the prescription is for a schedule II opioid... Start Date: 05/06/23 Status: Ordered olanzapine 2.5 mg oral tablet 2.5 mg, 1, tablet, By Mouth, Daily, PRN, Agitation/Psychosis, # 14 tablet, Refills 1, Tot. Refills 1, Maintenance, Other, 10/16/22 12:36:00 EST, Route to Pharmacy Electronically, [facility]/pharmacy #[id number], Partial fill upon patient request if the prescriptio... Start Date: 10/16/22 Stop Date: 11/13/22 Status: Ordered omeprazole 20 mg oral enteric coated capsule 1 capsule, By Mouth, Daily, # 90 capsule, 0 Refills, [id number], 163, cm, 09/24/21 16:23:00 EST, Height, 112, kg, 10/14/20 10:13:00 EST, Dry Weight Start Date: 03/04/22 Status: Ordered perphenazine 16 mg oral tablet 16 mg, 1, tablet, By Mouth, 2 times a day, take with 4mg tablet for a total dose of 20 mg 2 times daily, # 60 tablet, Refills 0, Tot. Refills 0, Maintenance, 09/14/22 13:06:00 EST, Route to Pharmacy Electronically, [facility], Partial fi... Start Date: 09/14/22 Status: Ordered perphenazine 4 mg oral tablet 4 mg, 1, tablet, By Mouth, 2 times a day, take with 16 mg tablet for a total dose of 20 mg 2 times daily, # 60 tablet, Refills 0, Tot. Refills 0, Maintenance, 09/14/22 13:06:00 EST, Route to PharmacyElectronically, [facility] 3, Partial f... Start Date: 09/14/22 Status: Ordered perphenazine 8 mg oral tablet 8 mg, 1, tablet, By Mouth, Daily, at 12 PM, # 30 tablet, Refills 0, Tot. Refills 0, Maintenance, 09/14/22 13:06:00 EST, Route to Pharmacy Electronically, [facility], Partial fill upon patient request if the prescription is for a schedule... Start Date: 09/14/22 Status: Ordered Senna 8.6 mg oral tablet 8.6 mg, 1, tablet, By Mouth, Daily at bedtime, PRN, # 30 tablet, Refills 0, Tot. Refills 0, Maintenance, Constipation, 05/06/23 14:23:00 EDT, Route to Pharmacy Electronically, [facility] Tablet, Partial fill upon patient request if the presc... Start Date: 05/06/23 Status: Ordered Senna 8.6 mg oral tablet 8.6 mg, 1, tablet, By Mouth, Daily at bedtime, # 30 tablet, Refills 0, Tot. Refills 0, Maintenance,09/14/22 13:06:00 EST, Route to Pharmacy Electronically, [facility] 3 Tablet, Partial fill upon patient request if the prescription is for... Start Date: 09/14/22 Status: Ordered simethicone 125 mg oral capsule See Instructions, TAKE 1 CAPSULE BY MOUTH THREE TIMES A DAY AFTER MEALS AND AT BEDTIME NEEDED, #48 capsule, 11 Refills, Maintenance, 09/24/22 18:10:00 EST, [facility] STORE [id number], 163, cm, 09/14/22 8:12:00 EST, Height, 87.9, kg, 09/09/22 12:06:00 EST, Start Date: 09/24/22 Status: Ordered ZyPREXA 2.5 mg oral tablet 2.5 mg, 1, tablet, By Mouth, Daily at bedtime, # 14 tablet, Refills 0, Tot. Refills 0, Maintenance,10/16/22 11:51:00 EST, Route to Pharmacy Electronically, [facility]/pharmacy #[id number], Partial fill upon patient [...] 1 2 3 Oxygen Saturation [94-100 %] 99 % (05/17/23 2:33 PM) 99 % (05/17/23 9:41 AM) 100 % (05/16/23 8:59 PM) Pulse Rate [55-90 bpm] 82 bpm (05/17/23 2:33 PM) 83 bpm (05/16/23 2:17 PM) Blood Pressure [90-138/55-84 mm Hg] 128/76mm Hg (05/17/23 2:33 PM) 136/68mm Hg (05/17/23 9:41 AM) 157/93mm Hg *H* (05/16/23 8:59 PM) Respiratory Rate [16-30 br/min] 16 br/min (05/17/23 2:33 PM) 18 br/min (05/17/23 9:41 AM) 18 br/min (05/16/23 8:59 PM) Temperature [96.8-100.4 DegF] 97.9 DegF (05/17/23 9:41 AM) 98.9 DegF (05/16/23 8:59 PM) 97.6 DegF (05/16/23 6:41 PM) Mode of Delivery (Oxygen) Room air (05/17/23 2:33 PM) Room air (05/17/23 9:41 AM) Room air (05/16/23 8:59 PM) Blood pressure sites Arm, left (05/17/23 2:33 PM) Arm, left (05/17/23 9:41 AM) Arm, left (05/16/23 8:59 PM) Temperature Route Oral (05/17/23 9:41 AM) Oral (05/16/23 8:59 PM) Oral (05/16/23 6:41 PM) Social History Social History Type Response Tobacco Use: 4 or less cigar ettes(less than 1/4 pack)/day in last 30 days. Sex History and physical note * Event Display: History and Physical Hospital Authored Date: [id number] [place], [place] PSYCHIATRIC HISTORY ASSESS EXAM NAME: LORETTA CELESTIN : 89 MR#: [id number] PCP: ADMITTED: 12/20/15 DATE OF SERVICE: 12/20/15 HPI - Hosp Psych H P Chief Complaint Pt was sent from [place] here for hallunication History of Present Illness 24 yo AA Female with known schizophrenia was seen at [facility] ER for hallucination. Apparently pt has been lived in intermediate and sent to [facility] for acute exacerbation of [...] QDAY Haloperidol* (Haldol*) 5 MG PO BID Inger Carbonate SR* (Lithobid*) 300 MG PO QDAY liTHIum Carbonate SR* (Inger Carbonate SR*) 450 MG PO 4PM Discontinued Reported Medications Citalopram* (CeleXA*) 40 MG PO QDAY Benztropine* 0.5 MG PO BID buPROPion SR* 150 MG PO [id number] Trazodone* (Desyrel*) 100 MG PO HS RisperiDONE* [...] 324 MG QDAY 12/20 09 CKD PO Inger Carbonate 300 MG QDAY 12/20 09 AC PO Polyethylene Glycol 17 GM QDAY 12/20 09 CKD PO Benztropine Mesylate 1 MG 0900,1700 12/19 1700 AC PO Docusate Sodium 100 MG 0900,12/19 1700 AC PO Haloperidol 5 MG 0900,12/19 1700 AC PO Inger Carbonate 450 MG PM 12/19 1700 AC [...] fullly ambulartory Care Level Complexity of Care [id number] Comprehensive history, comprehensive examination, medical decision making of low complexity, at least 20 minutes at the bedside, patient's floor/ unit. ESigned by: YAS GARZA MD Date:12/21/15 Time:1633 / NOT FOR REDISCLOSURE WITHOUT PATIENT'S INFORMED CONSENT Admission evaluation note * Event Display: Admit Notes Authored Date: [id number] [place], [place] PSYCHIATRIC ADMISSION NOTE NAME: LORETTA CELESTIN : 89 HOSPITAL #: [id number] MR #: [id number] CHART LOC: PCP: DICTATING: MARIA R Robin MD DATE OF ADMISSION: 12/20/15 DATE OF SERVICE: 12/21/15 CHIEF COMPLAINT: This 23-year-old woman was admitted to [facility] on 12/20/15 on a Conditional Voluntary application because of suicidal ideation. HISTORY OF PRESENT ILLNESS: The patient has been treated for schizoaffective disorder depressed type, posttraumatic stress disorder, intellectual disability and alcohol syndrome with multiple hospitalizations for self-harming behavior and suicidal ideation. She presented to Crisis Services from her intermediate reporting that she was having urges to [...] how they had evolved. Staff at the intermediate where she lives reported her as unusually [...] HISTORY: The patient is living in a intermediate. Came to [place] with her grandmother in 2013, was very [...] year NAME: LORETTA CELESTIN : 89 HOSP#: [id number] MR#: [id number] CHART LOC: PCP: DICTATING: MARIA R Robin MD PSYCHIATRIC ADMISSION NOTE CONTINUED: unknown. TREATMENT PLAN: Resume outpatient medications, physical exam, collateral contact with community caregivers and social network, safety plan, aftercare plan and observe. 927 T:sn DD:[id number] TD:[id number] DT:[id number] TT:0924 JOB:[id number] MICHELLE/SHANNON MARIA R Robin MD ESigned by: Date:12/22/15 Time:642 NOT FOR REDISCLOSURE WITHOUT PATIENT'S INFORMED CONSENT Note * [place] TORRES, Janusz: PERFORM Event Display: Patient Education Leaflets Authored Date: [id number] Depression ?? [id number] Depression Depression is a very common mental health problem. It's not just a state of being unhappy or sad. It's a true disease. The cause seems to be linked to a change in chemicals that send signals in the brain. These things increase a person???s risk of depression: ??? A family history of depression, alcoholism, or suicide ??? Chronic illness ??? Chronic pain ???Migraine headaches ??? High emotional stress Depression may be easier to see in others. You may have a hard time seeing it in yourself. It can show in many physical and emotional ways. These include: ??? Loss of appetite ??? Overeating ??? Not being able to sleep ??? Sleeping too much ??? A lot of tiredness not linked to physical activity ??? Restlessness or irritability ??? Slowness of movement or speech ??? Feeling sad or withdrawn ??? Loss of interest in things you once enjoyed ??? Trouble??concentrating, remembering,??or making decisions ??? Thoughts of harming or killing yourself, or thoughts that life is not worth living ??? Low self-esteem The treatment for depression may include both medicine and psychotherapy. Antidepressants can ease symptoms. They can also make it easier for you to do daily tasks. Therapy can offer emotional support. It can also help you understand things that may be causing the depression. Home care ??? Ongoing care and support help people manage this disease. Find a healthcare provider and therapist who meet your needs. Get help when you feel like you may be getting ill. ??? Be kind to yourself. Make it a point to do things that you enjoy. This may be gardening, walking in nature, or going to a movie. Reward yourself for small successes. ??? Take care of your body. Eat a balanced diet. Eat foods low in saturated fat. Eat a lot of fruits and vegetables. Exercise at least 3 times a week for 30 minutes. Even mild to moderate exercise like brisk walking can make you feel better. ??? Take medicine as prescribed. Don't stop your medicine or change the dose unless you talk with your healthcare provider. ??? Once you start medicine, expect your symptoms to get better slowly. Depression will lift over time. It doesn't get better right away. Ask your healthcare provider how long it will take for a medicine to start working. ??? Don't share your medicine. Don???t use someone else's medicine. ??? Tell your healthcare providers all the medicines you take. This includes prescription and rxwq-ujg-tqtejld medicines. It includes vitamins and herbal supplements. Some supplements caninteract with medicines. They can cause dangerous side effects. Ask your pharmacist about medicine interactions when you have questions. ??? Don't make major decisions until you feel better. This incl udes things such as a job change, a divorce, or a marriage. ??? Don't drink alcohol. It can make depression worse. ??? Talk with your family and??trusted friends??about your feelings and thoughts.??Ask them to help you notice behavior changes early. You can then get help and, if needed, your medicine can be changed. ??? Talk with your healthcare provider if you are not getting better. They may change your medicine or have you try another treatment. ?? Follow-up care Follow up with your healthcare provider as advised. ?? Crisis care Call 988 if you have thoughts of harming yourself or others. When you call or text [phone], you will beconnected to trained crisis counselors. An online chat option is also available. [employer] is free and available 18/04. 988 counselors will work with 911 to help you get the care you need. Call 911 if you: ??? Have trouble breathing ??? Are??very confused ??? Feel very drowsy or have??trouble awakening ??? Faint ??? Have new chest pain that becomes more severe, lasts longer, or spreadsinto your shoulder, arm, neck, jaw, or back ?? When to get medical care Call your healthcare provider right away if any of these happen: ??? Your symptoms get worse ??? You have extreme depression, fear, anxiety, or anger toward yourself or others ??? You feel out of control ??? You feel that you may try to harm yourself or another ??? You hear voices other people don't hear ??? You see things other people don't see ??? You don't sleep or eat for 3 days in a row ??? Friends or family express concern over your behavior and ask you to get help ?? Last Reviewed Date: 2021 ?? [id number] [employer]. All rights reserved. This information is not intended as a substitute for professional medical care. Always follow your healthcare professional's instructions. ?? Patient Care team information Care Team Personnel Name: Dean Rivas RN Position: S RN Member Role: Primary Care Nurse Name: Fatoumata Stokes DO Position: S Physician - Primary Care Member Role: PCP Address: Address: [address] [place] [address] Adult & [place] [address]- Name: Britt Polanco RN Position: [facility] RN Member Role: Primary Care Nurse Name: Awilda Grider RN Position: [facility] RN Member Role: Primary Care Nurse Name: Chintan Leach DO Position: [facility] Renal MD Member Role: Lifetime Consulting Physician Address: Address: [address] [facility] [place] [address]- Name: Chandler Ye RN Position: [facility] RN Member Role: Primary Care Nurse Name: Apurva Ji RN Position: [facility] ED RN W/OE and Tasks Member Role: Primary Care Nurse Name: Cordelia Matias RN Position: [facility] AMB Nurse [...] Member Role: Lifetime Consulting Physician Address: Address: [address] [place] [address]- [place] Name: *[facility], ED Attending Position: [facility] ED Attendings Patient Name: Jun Rajan RN Position: [facility] ED RN W/OE and Tasks Member Role: Patient Care Provider Name: Janusz Ferris MD Position: [facility] ED Medicine MD Member Role: Admitting Physician Address: Address: [address] [place] [address] [place] [address]- Care Team Related Persons Name: CHUNDORITA MARINO Address: home [address] [place] [address] Name: STEW PECK Address: home [address] [place] [address] Name: LISA PALMA Address: home [address] [place] [address]
--- OUTSIDE RECORDS SUMMARY | 2023-08-16 12:29 | XMS_ITS | Continuity of Care Document ---
Author Name Unknown Organization [facility] Address [address] [place] [address]- Care Team Providers Care Inspector Plumbing Name Role Phone Fatoumata Stokes DO Primary Care Physician Encounter [facility] Date(s): 11/23/22 - 12/23/22 [facility] [address] [place], [place] [address] Attending Physician: Jada Torres Admitting Physician: AdmJada don Referring Physician: AdmtrJada Allergies, Adverse Reactions, Alerts [...] 09/29/22 9:09:00 EST, Route to Pharmacy Electronically, [id number], 163, cm, 09/14/22 8:12:00 EST, Height, 87.9, kg, 09/09/22 12:06:00 EST, Dry Weight Start Date: 09/29/22 Status: Ordered benztropine 1 mg oral tablet 1 mg, 1, tablet, By Mouth, 2 times a day, # 60 tablet, Refills 0, Tot. Refills 0, Maintenance, 09/14/22 13:02:00 EST, Route to Pharmacy Electronically, [facility], 163, cm, 09/14/22 8:12:00 EST, Height, 87.9, kg, 09/09/22 12:06:00 EST, D... Start Date: 09/14/22 Stop Date: 10/14/22 Status: Ordered cetirizine 10 mg oral tablet 1 tablet, By Mouth, Daily, # 30 tablet, 0 Refills, Maintenance, 09/14/22 13:03:00 EST, [facility], 163, cm, 09/14/22 8:12:00 EST, Height, 87.9, kg, 09/09/22 12:06:00 EST, Dry Weight Start Date: 09/14/22 Status: Ordered docusate sodium 100 mg oral capsule 1 capsule, By Mouth, 2 times a day, # 60 capsule, 11 Refills, 10/06/22 16:34:00 EST, [facility]/pharmacy #[id number], 163, cm, 09/14/22 8:12:00 EST, Height, 87.9, kg, 09/09/22 12:06:00 EST, Dry Weight Start Date: 10/06/22 Status: Ordered estradiol 0.1 mg/24 hours twice weekly transdermal film, extended release See Instructions, apply 1 patch Topically every tuesday and , # 24 patch, 0 Refills, Maintenance, 11/24/22 12:36:00 EST, [facility]/pharmacy #[id number], Partial fill upon patient request if the prescription is for a schedule II opioid drug., 162, cm, 11/23... Start Date: 11/24/22 Status: Ordered Estradiol Patch 0.1 mg/24 hours twice weekly transdermal film, extended release See Instructions, APPLY 1 PATCH TOPICALLY EVERY TUESDAY & TUESDAY, # 8 patch, 0 Refills, 09/14/22 13:03:00 EST, [facility], APPLY 1 PATCH TOPICALLY EVERY TUESDAY & TUESDAY, 163,cm, 09/14/22 8:12:00 EST, Height, 87.9, kg, 09/09/22 12:06:... Start Date: 09/14/22 Status: Ordered ferrous sulfate 325 mg oral enteric coated tablet 1, tablet, By Mouth, Every other day, may take with food to minimize abdominal discomfort, # 15 tablet, Refills 0, Tot. Refills 0, 09/14/22 13:04:00 EST, Route to Pharmacy Electronically, [facility], 163, cm, 09/14/22 8:12:00 [...] 0 Refills, Maintenance, 09/14/22 13:05:00 EST, Tablet, [facility], Partial fill upon patient request if the prescription is for a schedule II opioid drug., 163, cm, 09/14/22 8:12:0... Start Date: 09/14/22 Status: Ordered medroxyPROGESTERone 150 mg/mL intramuscular suspension 1 mL, Intramuscular, Every 3 months, # 1 mL, 3 Refills, Soft Stop, 03/13/21 13:05:00 EDT, [facility]/pharmacy #[id number], 164, cm, 03/13/21 9:51:00 EDT, Height, 112, kg, 10/14/20 10:13:00 EST, Dry Weight Start Date: 03/13/21 Status: Ordered olanzapine 2.5 mg oral tablet 2.5 mg, 1, tablet, By Mouth, Daily, PRN, Agitation/Psychosis, # 14 tablet, Refills 1, Tot. Refills 1, Maintenance, Other, 10/16/22 12:36:00 EST, Route to Pharmacy Electronically, [facility]/pharmacy #[id number], Partial fill upon patient request if the prescriptio... Start Date: 10/16/22 Stop Date: 11/13/22 Status: Ordered omeprazole 20 mg oral enteric coated capsule 1 capsule, By Mouth, Daily, # 90 capsule, 0 Refills, [id number], 163, cm, 09/24/21 16:23:00 EST, Height, 112, kg, 10/14/20 10:13:00 EST, Dry Weight Start Date: 03/04/22 Status: Ordered perphenazine 16 mg oral tablet 16 mg, 1, tablet, By Mouth, 2 times a day, take with 4mg tablet for a total dose of 20 mg 2 times daily, # 60 tablet, Refills 0, Tot. Refills 0, Maintenance, 09/14/22 13:06:00 EST, Route to Pharmacy Electronically, [facility], Partial fi... Start Date: 09/14/22 Status: Ordered perphenazine 4 mg oral tablet 4 mg, 1, tablet, By Mouth, 2 times a day, take with 16 mg tablet for a total dose of 20 mg 2 times daily, # 60 tablet, Refills 0, Tot. Refills 0, Maintenance, 09/14/22 13:06:00 EST, Route to PharmacyElectronically, [facility], Partial f... Start Date: 09/14/22 Status: Ordered perphenazine 8 mg oral tablet 8 mg, 1, tablet, By Mouth, Daily, at 12 PM, # 30 tablet, Refills 0, Tot. Refills 0, Maintenance, 09/14/22 13:06:00 EST, Route to Pharmacy Electronically, [facility], Partial fill upon patient request if the prescription is for a schedule... Start Date: 09/14/22 Status: Ordered progesterone 200 mg oral capsule 1 capsule = 200 mg, By Mouth, Daily, for 12 days, To take on the first twelve days of each month., # 12 capsule, 3 Refills, Acute 01/11/23 11:56:00 EDT, 11/24/22 11:56:00 EST, Capsule, [facility]/pharmacy #[id number], Partial fill upon patient request if the presc... Start Date: 11/24/22 Stop Date: 01/11/23 Status: Ordered Senna 8.6 mg oral tablet 8.6 mg, 1, tablet, By Mouth, Daily at bedtime, # 30 tablet, Refills 0, Tot. Refills 0, Maintenance,09/14/22 13:06:00 EST, Route to Pharmacy Electronically, [facility] Tablet, Partial fill upon patient request if the prescription is for... Start Date: 09/14/22 Status: Ordered simethicone 125 mg oral capsule See Instructions, TAKE 1 CAPSULE BY MOUTH THREE TIMES A DAY AFTER MEALS AND AT BEDTIME NEEDED, #48 capsule, 11 Refills, Maintenance, 09/24/22 18:10:00 EST, [id number], 163, cm, 09/14/22 8:12:00 EST, Height, 87.9, kg, 09/09/22 12:06:00 EST, Start Date: 09/24/22 Status: Ordered ZyPREXA 2.5 mg oral tablet 2.5 mg, 1, tablet, By Mouth, Daily at bedtime, # 14 tablet, Refills 0, Tot. Refills 0, Maintenance,10/16/22 11:51:00 EST, Route to Pharmacy Electronically, [facility]/pharmacy #[id number], Partial fill upon patient request if the [...] Display: History and Physical Hospital Authored Date: [id number] [place], [place] PSYCHIATRIC HISTORY ASSESS EXAM NAME: LORETTA CELESTIN : 89 MR#: [id number] PCP: ADMITTED: 12/20/15 DATE OF SERVICE: 12/20/15 HPI - Hosp Psych H P Chief Complaint Pt was sent from [facility] here for hallunication History of Present Illness 24 yo AA Female with known schizophrenia was seen at [facility] for hallucination. Apparently pt has been lived in [facility] and sent to [facility] for acute exacerbation of her underline schizophrenia. [...] QDAY Haloperidol* (Haldol*) 5 MG PO BID [place] Carbonate SR* (Lithobid*) 300 MG PO QDAY liTHIum Carbonate SR* ([place] Carbonate SR*) 450 MG PO 4PM Discontinued Reported Medications Citalopram* (CeleXA*) 40 MG PO QDAY Benztropine* 0.5 MG PO BID buPROPion SR* 150 MG PO [id number] Trazodone* (Desyrel*) 100 MG PO HS RisperiDONE* [...] 324 MG QDAY 12/20 0900 CKD PO [place] Carbonate 300 MG QDAY 12/20 09 AC PO Polyethylene Glycol 17 GM QDAY 12/20 899 CKD PO Benztropine Mesylate 1 MG 09,12/19 1700 AC PO Docusate Sodium 100 MG 09,12/19 1700 AC PO Haloperidol 5 MG 0900,12/19 1700 AC PO [place] Carbonate 450 MG PM 12/19 1700 AC [...] fullly ambulartory Care Level Complexity of Care [id number] Comprehensive history, comprehensive examination, medical decision making of low complexity, at least 20 minutes at the bedside, patient's floor/ unit. ESigned by: YAS GARZA MD Date:12/21/15 Time:1633 / NOT FOR REDISCLOSURE WITHOUT PATIENT'S INFORMED CONSENT Admission evaluation note * Event Display: Admit Notes Authored Date: [id number] [place], [place] PSYCHIATRIC ADMISSION NOTE NAME: LORETTA CELESTIN : 89 HOSPITAL #: [id number] MR #: [id number] CHART LOC: PCP: DICTATING: MARIA R Robin MD DATE OF ADMISSION: 12/20/15 DATE OF SERVICE: 12/21/15 CHIEF COMPLAINT: This 23-year-old woman was admitted to [facility] on 12/20/15 on a Conditional Voluntary application because of suicidal ideation. HISTORY OF PRESENT ILLNESS: The patient has been treated for schizoaffective disorder depressed type, posttraumatic stress disorder, intellectual disability and alcohol syndrome with multiple hospitalizations for self-harming behavior and suicidal ideation. She presented to [facility] from her [facility] reporting that she was having urges to [...] how they had evolved. Staff at the [facility] where she lives reported her as unusually [...] HISTORY: The patient is living in a [facility]. Came to [place] with her grandmother in 2013, was very [...] year NAME: LORETTA CELESTIN : 89 HOSP#: [id number] MR#: [id number] CHART LOC: PCP: DICTATING: MARIA R Robin MD PSYCHIATRIC ADMISSION NOTE CONTINUED: unknown. TREATMENT PLAN: Resume outpatient medications, physical exam, collateral contact with community caregivers and social network, safety plan, aftercare plan and observe. 927 T:sn DD:[id number] TD:0745 DT:[id number] TT:0924 JOB:[id number] MICHELLE/SHANNON MARIA R Robin MD ESigned by: Date:12/22/15 Time:642 NOT FOR REDISCLOSURE WITHOUT PATIENT'S INFORMED CONSENT Patient Care team information Care Team Personnel Name: Dean Rivas RN Position: [facility] RN Member Role: Primary Care Nurse Name: Fatoumata Stokes DO Position: [facility] Primary Care Physician Member Role: PCP Address: Address: [address] [place] [address] Adult [place] [address]- Name: Britt Polanco RN Position: [facility] RN Member Role: Primary Care Nurse Name: Anyi Avendano RN Position: [facility] RN Supv Member Role: Primary Care Nurse Name: Awilda Grider RN Position: [facility] RN Member Role: Primary Care Nurse Name: Chintan Leach DO Position: [facility] Renal MD Member Role: Lifetime Consulting Physician Address: Address: [address] [place] [address] [address] [facility] [place] [address]- Name: Chandler Ye RN Position: [facility] RN Member Role: Primary Care Nurse Name: Apurva Ji RN Position: [facility] MARISABEL RN W/OE and Tasks Member Role: Primary Care Nurse Name: Cordelia Matias RN Position: [facility] AMB Nurse Member Role: Primary Care Nurse Name: Radha Gutierrez Position: [facility] Outreach Member Role: Primary Care Nurse Name: Keenan Vincent RN Position: [facility] SN RN Member Role: Primary Care Nurse Name: Sasha Patricio RN Position: [facility] RN Member Role: Primary Care Nurse Name: Virgie Angel Position: [facility] RN Member Role: Primary Care Nurse Name: Azeb Gusman RN Position: [facility] RN Member Role: Primary Care Nurse Name: Meredith Martinez RN Position: [facility] RN Member Role: Primary Care Nurse Name: Anika Gotti RN Position: [facility] RN Supv Member Role: Primary Care Nurse Name: Kennedi Roca RN Position: [facility] RN Member Role: Primary Care Nurse Name: Justina Walker RN Position: [facility] RN Member Role: Primary Care Nurse Name: Kenia Zuniga RN Position: [facility] PCO w/OE and EZ Script Member Role: Primary Care Nurse Name: Ivone Hidalgo RN Position: [facility] RN Member Role: Primary Care Nurse Name: Mazin Penn MD Position: [facility] Psychiatry MD Member Role: Lifetime Consulting Physician Address: Address: [address] [place] [address] [place] Care Team Related Persons Name: DORITA HERNANDEZ Address: [address] [place] [address] Name: STEW PECK Address: home [address] [place] [address] Name: LOUIE POLICY ADVISORPETER Address: [address] [place] [address]
--- OUTSIDE RECORDS SUMMARY | 2023-08-16 12:29 | XMS_ITS | Continuity of Care Document ---
Author Name Unknown Organization [facility] Address [address], [address] [place] [address]- Care Team Providers Care Surveillance Officer Name Role Phone Fatoumata Stokes DO Primary Care Physician [place] [facility] [place]): [place] 11/29/22 [facility] [address], [address] [place], [place] [address] Attending Physician: Brandin Avelar MD Referring Physician: Fatoumata Stokes DO Allergies, [...] 09/29/22 9:09:00 EST, Route to Pharmacy Electronically, [id number], 163, cm, 09/14/22 8:12:00 EST, Height, 87.9, kg, 09/09/22 12:06:00 EST, Dry Weight Start Date: 09/29/22 Status: Ordered benztropine 1 mg oral tablet 1 mg, 1, tablet, By Mouth, 2 times a day, # 60 tablet, Refills 0, Tot. Refills 0, Maintenance, 09/14/22 13:02:00 EST, Route to Pharmacy Electronically, [facility], 163, cm, 09/14/22 8:12:00 EST, Height, 87.9, kg, 09/09/22 12:06:00 EST, D... Start Date: 09/14/22 Stop Date: 10/14/22 Status: Ordered cetirizine 10 mg oral tablet 1 tablet, By Mouth, Daily, # 30 tablet, 0 Refills, Maintenance, 09/14/22 13:03:00 EST, [facility], 163, cm, 09/14/22 8:12:00 EST, Height, 87.9, kg, 09/09/22 12:06:00 EST, Dry Weight Start Date: 09/14/22 Status: Ordered docusate sodium 100 mg oral capsule 1 capsule, By Mouth, 2 times a day, # 60 capsule, 11 Refills, 10/06/22 16:34:00 EST, [facility]/pharmacy #[id number], 163, cm, 09/14/22 8:12:00 EST, Height, 87.9, kg, 09/09/22 12:06:00 EST, Dry Weight Start Date: 10/06/22 Status: Ordered estradiol 0.1 mg/24 hours twice weekly transdermal film, extended release See Instructions, apply 1 patch Topically every tuesday and , # 24 patch, 0 Refills, Maintenance, 11/24/22 12:36:00 EST, [facility]/pharmacy #[id number], Partial fill upon patient request if the prescription is for a schedule II opioid drug., 162, cm, 11/23... Start Date: 11/24/22 Status: Ordered Estradiol Patch 0.1 mg/24 hours twice weekly transdermal film, extended release See Instructions, APPLY 1 PATCH TOPICALLY EVERY TUESDAY & TUESDAY, # 8 patch, 0 Refills, 09/14/22 13:03:00 EST, [facility], APPLY 1 PATCH TOPICALLY EVERY TUESDAY & TUESDAY, 163,cm, 09/14/22 8:12:00 EST, Height, 87.9, kg, 09/09/22 12:06:... Start Date: 09/14/22 Status: Ordered ferrous sulfate 325 mg oral enteric coated tablet 1, tablet, By Mouth, Every other day, may take with food to minimize abdominal discomfort, # 15 tablet, Refills 0, Tot. Refills 0, 09/14/22 13:04:00 EST, Route to Pharmacy Electronically, [facility], 163, cm, 09/14/22 8:12:00 EST, [...] 0 Refills, Maintenance, 09/14/22 13:05:00 EST, Tablet, [facility], Partial fill upon patient request if the prescription is for a schedule II opioid drug., 163, cm, 09/14/22 8:12:0... Start Date: 09/14/22 Status: Ordered medroxyPROGESTERone 150 mg/mL intramuscular suspension 1 mL, Intramuscular, Every 3 months, # 1 mL, 3 Refills, Soft Stop, 03/13/21 13:05:00 EDT, [facility]/pharmacy #[id number], 164, cm, 03/13/21 9:51:00 EDT, Height, 112, kg, 10/14/20 10:13:00 EST, Dry Weight Start Date: 03/13/21 Status: Ordered olanzapine 2.5 mg oral tablet 2.5 mg, 1, tablet, By Mouth, Daily, PRN, Agitation/Psychosis, # 14 tablet, Refills 1, Tot. Refills 1, Maintenance, Other, 10/16/22 12:36:00 EST, Route to Pharmacy Electronically, [facility]/pharmacy #[id number], Partial fill upon patient request if the prescriptio... Start Date: 10/16/22 Stop Date: 11/13/22 Status: Ordered omeprazole 20 mg oral enteric coated capsule 1 capsule, By Mouth, Daily, # 90 capsule, 0 Refills, [id number], 163, cm, 09/24/21 16:23:00 EST, Height, 112, kg, 10/14/20 10:13:00 EST, Dry Weight Start Date: 03/04/22 Status: Ordered perphenazine 16 mg oral tablet 16 mg, 1, tablet, By Mouth, 2 times a day, take with 4mg tablet for a total dose of 20 mg 2 times daily, # 60 tablet, Refills 0, Tot. Refills 0, Maintenance, 09/14/22 13:06:00 EST, Route to Pharmacy Electronically, [facility], Partial fi... Start Date: 09/14/22 Status: Ordered perphenazine 4 mg oral tablet 4 mg, 1, tablet, By Mouth, 2 times a day, take with 16 mg tablet for a total dose of 20 mg 2 times daily, # 60 tablet, Refills 0, Tot. Refills 0, Maintenance, 09/14/22 13:06:00 EST, Route to PharmacyElectronically, [facility], Partial f... Start Date: 09/14/22 Status: Ordered perphenazine 8 mg oral tablet 8 mg, 1, tablet, By Mouth, Daily, at 12 PM, # 30 tablet, Refills 0, Tot. Refills 0, Maintenance, 09/14/22 13:06:00 EST, Route to Pharmacy Electronically, [facility], Partial fill upon patient request if the prescription is for a schedule... Start Date: 09/14/22 Status: Ordered progesterone 200 mg oral capsule 1 capsule = 200 mg, By Mouth, Daily, for 12 days, To take on the first twelve days of each month., # 12 capsule, 3 Refills, Acute 01/11/23 11:56:00 EDT, 11/24/22 11:56:00 EST, Capsule, [facility]/pharmacy #[id number], Partial fill upon patient request if the presc... Start Date: 11/24/22 Stop Date: 01/11/23 Status: Ordered Senna 8.6 mg oral tablet 8.6 mg, 1, tablet, By Mouth, Daily at bedtime, # 30 tablet, Refills 0, Tot. Refills 0, Maintenance,09/14/22 13:06:00 EST, Route to Pharmacy Electronically, [facility] Tablet, Partial fill upon patient request if the prescription is for... Start Date: 09/14/22 Status: Ordered simethicone 125 mg oral capsule See Instructions, TAKE 1 CAPSULE BY MOUTH THREE TIMES A DAY AFTER MEALS AND AT BEDTIME NEEDED, #48 capsule, 11 Refills, Maintenance, 09/24/22 18:10:00 EST, [facility], 163, cm, 09/14/22 8:12:00 EST, Height, 87.9, kg, 09/09/22 12:06:00 EST, Start Date: 09/24/22 Status: Ordered ZyPREXA 2.5 mg oral tablet 2.5 mg, 1, tablet, By Mouth, Daily at bedtime, # 14 tablet, Refills 0, Tot. Refills 0, Maintenance,10/16/22 11:51:00 EST, Route to Pharmacy Electronically, [facility]/pharmacy #[id number], Partial fill upon patient request if the [...] Active Poor historian Confirmed Active Psychosis Confirmed 2010 Active Schizoaffective schizophrenia Confirmed Active History of suicidal ideation w/ suicide attempt Confirmed Active Weight gain with seroquel in the past 2 Confirmed Active 1Problem added by Discern Expert 2Really accelerated when seroquel dose increased Vital Signs Most recent to oldest [Reference Range]: 1 Height 162 cm (11/22/22 11:49 AM) Weight 90.45 kg (11/22/22 11:49 AM) Body Mass Index [18.5-24.99 kg/m2] 34.47 kg/m2 *>HHI* (11/22/22 11:49 AM) Blood Pressure [90-138/55-84 mm Hg] 134/ 91mm Hg (11/22/22 11:49 AM) Blood pressure sites Arm, left (11/22/22 11:49 AM) Weight Obtained Via Standing scale (11/22/22 11:49 AM) Social History Social History Type Response Tobacco Use: 4 or less cigar ettes(less than 1/4 pack)/day in last 30 days. Sex History and physical note * Event Display: History and Physical Hospital Authored Date: [id number] [place], [place] PSYCHIATRIC HISTORY ASSESS EXAM NAME: LORETTA CELESTIN : [birth year] MR#: [id number] PCP: ADMITTED: 12/20/15 DATE OF SERVICE: 12/20/15 HPI - Hosp Psych H P Chief Complaint Pt was sent from [facility] here for hallunication History of Present Illness 24 yo AA Female with known schizophrenia was [place] [facility] [place]. Apparently pt has been lived in retirement and [place] [facility] [place] exacerbation of [...] Haloperidol* (Haldol*) 5 MG PO BID [place] Carbonate SR* (Lithobid*) 300 MG PO QDAY liTHIum Carbonate SR* ([place] Carbonate SR*) 450 MG PO 4PM Discontinued Reported Medications Citalopram* (CeleXA*) 40 MG PO QDAY Benztropine* 0.5 MG PO BID buPROPion SR* 150 MG PO [id number] Trazodone* (Desyrel*) 100 MG PO HS RisperiDONE* [...] MG QDAY 12/20 09 CKD PO [place] Carbonate 300 MG QDAY 12/20 09 AC PO Polyethylene Glycol 17 GM QDAY 12/20 09 CKD PO Benztropine Mesylate 1 MG 0900,1700 12/19 1700 AC PO Docusate Sodium 100 MG 0900,1700 12/19 1700 AC PO Haloperidol 5 MG 0900,1700 12/19 1700 AC PO [place] Carbonate 450 MG PM 12/19 1700 AC [...] fullly ambulartory Care Level Complexity of Care T16201 Comprehensive history, comprehensive examination, medical decision making of low complexity, at least 20 minutes at the bedside, patient's floor/ unit. ESigned by: YAS GARZA MD Date:12/21/15 Time:1633 / NOT FOR REDISCLOSURE WITHOUT PATIENT'S INFORMED CONSENT Admission evaluation note * Event Display: Admit Notes Authored Date: [id number] [place], [place] PSYCHIATRIC ADMISSION NOTE NAME: LORETTA CELESTIN : 89 HOSPITAL #: [id number] #: [id number] CHART LOC: PCP: DICTATING: MARIA R Robin MD DATE OF ADMISSION: 12/20/15 DATE OF SERVICE: 12/21/15 CHIEF COMPLAINT: This 23-year-old woman was admitted to [facility] on 12/20/15 on a Conditional Voluntary application because of suicidal ideation. HISTORY OF PRESENT ILLNESS: The patient has been treated for schizoaffective disorder depressed type, posttraumatic stress disorder, intellectual disability and alcohol syndrome with multiple hospitalizations for self-harming behavior and suicidal ideation. She presented to Crisis Services from her retirement reporting that she was having urges to [...] how they had evolved. Staff at the retirement where she lives reported her as unusually [...] HISTORY: The patient is living in a retirement. Came to [place] with her grandmother in 2013, was very [...] year NAME: LORETTA CELESTIN : 89 HOSP#: [id number] MR#: [id number] CHART LOC: PCP: DICTATING: MARIA R Robin MD PSYCHIATRIC ADMISSION NOTE CONTINUED: unknown. TREATMENT PLAN: Resume outpatient medications, physical exam, collateral contact with community caregivers and social network, safety plan, aftercare plan and observe. 927 T:sn DD:[id number] TD:[id number] DT:[id number] TT:0924 JOB:[id number] MICHELLE/SHANNON MARIA R Robin MD ESigned by: Date:12/22/15 Time:642 NOT FOR REDISCLOSURE WITHOUT PATIENT'S INFORMED CONSENT Patient Care team information Care Team Personnel Name: Dean Rivas RN Position: [facility] RN Member Role: Primary Care Nurse Name: Fatoumata Stokes DO Position: [facility] Primary Care Physician Member Role: PCP Address: Address: [address] [place] [address] Adult & Pediatric Medicine [address] Name: Britt Polanco RN Position: [facility] RN Member Role: Primary Care Nurse Name: Anyi Avendano RN Position: [facility] STEPHAN Supv Member Role: Primary Care Nurse Name: Awilda Grider RN Position: S RN Member Role: Primary Care Nurse Name: Chintan Leach DO Position: [facility] Renal MD Member Role: Lifetime Consulting Physician Address: Address: [address] [place] [address] [address] [facility] [place] [address]- [place] Name: Chandler Ye RN Position: [facility] RN Member Role: Primary Care Nurse Name: Apurva Ji RN Position: [facility] ED RN W/OE and Tasks Member Role: Primary Care Nurse Name: Cordelia Matias RN Position: [facility] AMB Nurse Member Role: Primary Care Nurse Name: Radha Gutierrez Position: [facility] Outreach Member Role: Primary Care Nurse Name: Keenan Vincent RN Position: [facility] SN RN Member Role: Primary Care Nurse Name: Sasha Patricio RN Position: [facility] RN Member Role: Primary Care Nurse Name: Virgie Angel Position: [facility] RN Member Role: Primary Care Nurse Name: Azeb Gusman RN Position: [facility] RN Member Role: Primary Care Nurse Name: Meredith Martinez RN Position: [facility] RN Member Role: Primary Care Nurse Name: Anika Gotti RN Position: [facility] RN Supv Member Role: Primary Care Nurse Name: Kennedi Roca RN Position: [facility] RN Member Role: Primary Care Nurse Name: Justina Walker RN Position: [facility] RN Member Role: Primary Care Nurse Name: Kenia Zuniga RN Position: [facility] PCO w/OE and EZ Script Member Role: Primary Care Nurse Name: Ivone Hidalgo RN Position: [facility] RN Member Role: Primary Care Nurse Name: Mazin Penn MD Position: [facility] Psychiatry MD Member Role: Lifetime Consulting Physician Address: Address: [address] [place] [address]- [place] Care Team Related Persons Name: STEW PECK Address: [address] [place] [address] Name: GROUP GILBERT PETER Address: [address] [place] [address] Name: PRISCA WESTON Address: [address] [place] [address]
--- OUTSIDE RECORDS SUMMARY | 2023-08-16 12:29 | XMS_ITS | Continuity of Care Document ---
Author Name Unknown Organization [facility] Address [address] [place] [address]- Care Team Providers Care Relocation Specialist Name Role Phone Fatoumata Stokes DO Primary Care Physician ( [phone] Encounter [facility] Date(s): 11/26/22 - 11/26/[address] [address]- Encounter Diagnosis Abdominal pain(Final) - 11/26/22 Discharge Disposition: A-D/C Home Attending Physician: Kevin Adair MD Admitting Physician: Kevin Adair MD Referring Physician: Not on Staff, Referring [...] 09/29/22 9:09:00 EST, Route to Pharmacy Electronically, [id number], 163, cm, 09/14/22 8:12:00 EST, Height, 87.9, kg, 09/09/22 12:06:00 EST, Dry Weight Start Date: 09/29/22 Status: Ordered Acetaminophen Tablet 650 mg, Tablet, By Mouth, Once, STAT, 11/26/22 9:02:00 EST, Stop date 11/26/22 9:02:00 EST Start Date: 11/26/22 Stop Date: 11/26/22 Status: Completed benztropine 1 mg oral tablet 1 mg, 1, tablet, By Mouth, 2 times a day, # 60 tablet, Refills 0, Tot. Refills 0, Maintenance, 09/14/22 13:02:00 EST, Route to Pharmacy Electronically, [facility], 163, cm, 09/14/22 8:12:00 EST, Height, 87.9, kg, 09/09/22 12:06:00 EST, D... Start Date: 09/14/22 Stop Date: 10/14/22 Status: Ordered cetirizine 10 mg oral tablet 1 tablet, By Mouth, Daily, # 30 tablet, 0 Refills, Maintenance, 09/14/22 13:03:00 EST, [facility], 163, cm, 09/14/22 8:12:00 EST, Height, 87.9, kg, 09/09/22 12:06:00 EST, Dry Weight Start Date: 09/14/22 Status: Ordered docusate sodium 100 mg oral capsule 1 capsule, By Mouth, 2 times a day, # 60 capsule, 11 Refills, 10/06/22 16:34:00 EST, [facility]/pharmacy #[id number], 163, cm, 09/14/22 8:12:00 EST, Height, 87.9, kg, 09/09/22 12:06:00 EST, Dry Weight Start Date: 10/06/22 Status: Ordered estradiol 0.1 mg/24 hours twice weekly transdermal film, extended release See Instructions, apply 1 patch Topically every tuesday and , # 24 patch, 0 Refills, Maintenance, 11/24/22 12:36:00 EST, [facility]/pharmacy #[id number], Partial fill upon patient request if the prescription is for a schedule II opioid drug., 162, cm, 11/23... Start Date: 11/24/22 Status: Ordered Estradiol Patch 0.1 mg/24 hours twice weekly transdermal film, extended release See Instructions, APPLY 1 PATCH TOPICALLY EVERY TUESDAY & TUESDAY, # 8 patch, 0 Refills, 09/14/22 13:03:00 EST, [facility], APPLY 1 PATCH TOPICALLY EVERY TUESDAY & TUESDAY, 163,cm, 09/14/22 8:12:00 EST, Height, 87.9, kg, 09/09/22 12:06:... Start Date: 09/14/22 Status: Ordered ferrous sulfate 325 mg oral enteric coated tablet 1, tablet, By Mouth, Every other day, may take with food to minimize abdominal discomfort, # 15 tablet, Refills 0, Tot. Refills 0, 09/14/22 13:04:00 EST, Route to Pharmacy Electronically, [facility], 163, cm, 09/14/22 8:12:00 [...] 0 Refills, Maintenance, 09/14/22 13:05:00 EST, Tablet, [facility], Partial fill upon patient [...] EST, Route to Pharmacy Electronically, [facility]/pharmacy #[id number], Partial fill upon patient request if the prescriptio... Start Date: 10/16/22 Stop Date: 11/13/22 Status: Ordered omeprazole 20 mg oral enteric coated capsule 1 capsule, By Mouth, Daily, # 90 capsule, 0 Refills, [id number], 163, cm, 09/24/21 16:23:00 EST, Height, 112, kg, 10/14/20 10:13:00 EST, Dry Weight Start Date: 03/04/22 Status: Ordered perphenazine 16 mg oral tablet 16 mg, 1, tablet, By Mouth, 2 times a day, take with 4mg tablet for a total dose of 20 mg 2 times daily, # 60 tablet, Refills 0, Tot. Refills 0, Maintenance, 09/14/22 13:06:00 EST, Route to Pharmacy Electronically, [facility], Partial fi... Start Date: 09/14/22 Status: Ordered perphenazine 4 mg oral tablet 4 mg, 1, tablet, By Mouth, 2 times a day, take with 16 mg tablet for a total dose of 20 mg 2 times daily, # 60 tablet, Refills 0, Tot. Refills 0, Maintenance, 09/14/22 13:06:00 EST, Route to PharmacyElectronically, [facility], Partial f... Start Date: 09/14/22 Status: Ordered perphenazine 8 mg oral tablet 8 mg, 1, tablet, By Mouth, Daily, at 12 PM, # 30 tablet, Refills 0, Tot. Refills 0, Maintenance, 09/14/22 13:06:00 EST, Route to Pharmacy Electronically, [facility], Partial fill upon patient request if the prescription is for a schedule... Start Date: 09/14/22 Status: Ordered progesterone 200 mg oral capsule 1 capsule = 200 mg, By Mouth, Daily, for 12 days, To take on the first twelve days of each month., # 12 capsule, 3 Refills, Acute 01/11/23 11:56:00 EDT, 11/24/22 11:56:00 EST, Capsule, [facility]/pharmacy #[id number], Partial fill upon patient request if the presc... Start Date: 11/24/22 Stop Date: 01/11/23 Status: Ordered Senna 8.6 mg oral tablet 8.6 mg, 1, tablet, By Mouth, Daily at bedtime, # 30 tablet, Refills 0, Tot. Refills 0, Maintenance,09/14/22 13:06:00 EST, Route to Pharmacy Electronically, [facility] Tablet, Partial fill upon patient request if the prescription is for... Start Date: 09/14/22 Status: Ordered simethicone 125 mg oral capsule See Instructions, TAKE 1 CAPSULE BY MOUTH THREE TIMES A DAY AFTER MEALS AND AT BEDTIME NEEDED, #48 capsule, 11 Refills, Maintenance, 09/24/22 18:10:00 EST, [id number], 163, cm, 09/14/22 8:12:00 EST, Height, 87.9, kg, 09/09/22 12:06:00 EST, Start Date: 09/24/22 Status: Ordered ZyPREXA 2.5 mg oral tablet 2.5 mg, 1, tablet, By Mouth, Daily at bedtime, # 14 tablet, Refills 0, Tot. Refills 0, Maintenance,10/16/22 11:51:00 EST, Route to Pharmacy Electronically, [facility]/pharmacy #[id number], Partial fill upon patient request if the [...] Exam Date Time Procedure Performing Provider Status 11/26/22 11:[address] Abd/Pelvis W/ IV Contrast Only Ivone Aparicio Geena (Verified) Notes: (CT Abd/Pelvis W/ IV Contrast Only) Reason For Exam: LLQ abdominal pain;Other: RESULT: CT Abd/Pelvis W/ IV Contrast Only CT Abd/Pelvis W/ IV Contrast Only Hx of Present Illness: pt states abd pain for years with nausea pt denies any fever or chills.pt denies any SI HI pt denies any chest pain; Reason: Other:; LLQ abdominal pain; Clinical Question(s): Abscess; Order Comment: TECHNIQUE: Spiral CT through the abdomen and pelvis with IV contrast formatted in 3 planes. 100 cc of Omnipaque 300 was administered intravenously. This study was performed without oral contrast. Weight-based protocol using automatic tube modulation was used to optimize exposure parameters. CTDIvol Body: 17.60 mGy, DLP Body: 960 mGy*cm. COMPARISON: 04/29/2019 FINDINGS: Manager Baby View Findings, Lines and Tubes: None. Visualized Chest: Minimal basilar atelectasis. No acute abnormality Diaphragm: Normal. Liver: Normal. Gallbladder: No CT evidence of gallbladder pathology. Bile ducts: No biliary ductal dilation. Spleen: Normal. Pancreas: Normal. Adrenal glands: Normal. Kidneys and ureters: No hydroureteronephrosis. No solid renal mass. Bladder: Nondistended. Mild wall thickening could be due to nondistention. Reproductive organs: Unremarkable. Stomach, small bowel, and large bowel: No bowel obstruction. No regional inflammation. Moderate chronic stool burden with stool mildly distending the sigmoid and rectum. Appendix: Normal. Peritoneum and retroperitoneum: No ascites. No fluid collection. Lymph nodes: No adenopathy. Blood vessels: Nonaneurysmal abdominal aorta. No evidence of venous thrombosis. Abdominal and pelvic wall: No acute abnormality. Tiny fat-containing umbilical hernia. Bones: No acute abnormality. IMPRESSION: No acute abnormality. Mild diffuse bladder wall thickening is most likely due to nondistention. No perivesicular stranding. If there is concern for cystitis correlation with urinalysis can be made. WSN: [id number] Ordering Physician: Elyse Allison Dictated By: Estelle Giles MD Dictated Date/Time: 11/26/22 11:42 a Reviewed By: Estelle Giles MD Signed By: Estelle Giles MD Signed Date/Time: 11/26/22 11:42 am Transcribed By: TOMMY Transcribed Date/Time: 11/26/22 11:38 am Vital Signs Most recent to oldest [Reference Range]: 1 2 3 Oxygen Saturation [94-100 %] 100 % (11/26/22 12:35 PM) 100 % (11/26/22 11:10 AM) 100 % (11/26/22 8:56 AM) Pulse Rate [55-90 bpm] 85 bpm (11/26/22 12:35 PM) 81 bpm (11/26/22 11:10 AM) 83 bpm (11/26/22 8:56 AM) Blood Pressure [90-138/55-84 mm Hg] 139/82mm Hg *H* (11/26/22 12:35 PM) 137/85mm Hg (11/26/22 11:10 AM) 141/91mm Hg *H* (11/26/22 8:56 AM) Respiratory Rate [16-30 br/min] 17 br/min (11/26/22 12:35 PM) 17 br/min (11/26/22 11:10 AM) 18 br/min (11/26/22 8:56 AM) Temperature [96.8-100.4 DegF] 98.1 DegF (11/26/22 8:56 AM) Mode of Delivery (Oxygen) Room air (11/26/22 12:35 PM) Room air (11/26/22 11:10 AM) Room air (11/26/22 8:56 AM) Blood pressure sites Arm, left (11/26/22 12:35 PM) Arm, left (11/26/22 11:10 AM) Arm, left (11/26/22 8:56 AM) Temperature Route Oral (11/26/22 8:56 AM) Social History Social History Type Response Tobacco Use: 4 or less cigar ettes(less than 1/4 pack)/day in last 30 days. Sex History and physical note * Event Display: History and Physical Hospital Authored Date: [id number] [place], [place] PSYCHIATRIC HISTORY ASSESS EXAM NAME: LORETTA CELESTIN : 89 MR#: [id number] PCP: ADMITTED: 12/20/15 DATE OF SERVICE: 12/20/15 HPI - Hosp Psych H P Chief Complaint Pt was sent from [facility] here for hallunication History of Present Illness 24 yo AA Female with known schizophrenia was seen at [facility] for hallucination. Apparently pt has been lived in halfway and sent to [facility] for acute exacerbation of her [...] QDAY Haloperidol* (Haldol*) 5 MG PO BID [place] Carbonate SR* (Lithobid*) 300 MG PO QDAY liTHIum Carbonate SR* ([place] Carbonate SR*) 450 MG PO 4PM Discontinued Reported Medications Citalopram* (CeleXA*) 40 MG PO QDAY Benztropine* 0.5 MG PO BID buPROPion SR* 150 MG PO [id number] Trazodone* (Desyrel*) 100 MG PO HS RisperiDONE* [...] 324 MG QDAY 12/20 0900 CKD PO [place] Carbonate 300 MG QDAY 12/20 09 AC PO Polyethylene Glycol 17 GM QDAY 12/20 09 CKD PO Benztropine Mesylate 1 MG 09,12/19 1700 AC PO Docusate Sodium 100 MG 0900,12/19 1700 AC PO Haloperidol 5 MG 0900,12/19 1700 AC PO [place] Carbonate 450 MG PM 12/19 1700 AC [...] fullly ambulartory Care Level Complexity of Care [id number] Comprehensive history, comprehensive examination, medical decision making of low complexity, at least 20 minutes at the bedside, patient's floor/ unit. ESigned by: YAS GARZA MD Date:12/21/15 Time:1633 / NOT FOR REDISCLOSURE WITHOUT PATIENT'S INFORMED CONSENT Admission evaluation note * Event Display: Admit Notes Authored Date: [id number] [place], [place] PSYCHIATRIC ADMISSION NOTE NAME: LORETTA CELESTIN : 89 HOSPITAL #: [id number] MR #: [id number] CHART LOC: PCP: DICTATING: MARIA R Robin MD DATE OF ADMISSION: 12/20/15 DATE OF SERVICE: 12/21/15 CHIEF COMPLAINT: This 23-year-old woman was admitted to [facility] on 12/20/15 on a Conditional Voluntary application because of suicidal ideation. HISTORY OF PRESENT ILLNESS: The patient has been treated for schizoaffective disorder depressed type, posttraumatic stress disorder, intellectual disability and alcohol syndrome with multiple hospitalizations for self-harming behavior and suicidal ideation. She presented to Crisis Services from her halfway reporting that she was having urges to [...] how they had evolved. Staff at the halfway where she lives reported her as unusually [...] HISTORY: The patient is living in a halfway. Came to [place] with her grandmother in 2013, was very [...] year NAME: LORETTA CELESTIN : 89 HOSP#: [id number] MR#: [id number] CHART LOC: PCP: DICTATING: MARIA R Robin MD PSYCHIATRIC ADMISSION NOTE CONTINUED: unknown. TREATMENT PLAN: Resume outpatient medications, physical exam, collateral contact with community caregivers and social network, safety plan, aftercare plan and observe. 927 T:sn DD:[id number] TD:[id number] DT:[id number] TT:0924 JOB:[id number] MICHELLE/SHANNON MARIA R Robin MD ESigned by: Date:12/22/15 Time:642 NOT FOR REDISCLOSURE WITHOUT PATIENT'S INFORMED CONSENT Note * Keegan TORRES, Elyse: PERFORM Event Display: Patient Education Leaflets Authored Date: [id number] Constipation (Adult) ?? [id number] Constipation (Adult) Constipation means that you have bowel movements that are less frequent than usual. Stools often become very hard and difficult to pass. Constipation is very common. At some point in life, it affects almost everyone. Since everyone's bowel habits are different, what is constipation to one person may not be to another. Your healthcare provider may do tests to diagnose constipation. It depends on what??they??find when evaluating you. Symptoms of constipation include: ??? Abdominal pain ??? Bloating ??? Vomiting ??? Painful bowel movements ??? Itching, swelling, bleeding, or pain around the anus Causes Constipation can have many causes. These include: ??? Diet low in fiber ??? Too much dairy ??? Not drinking enough liquids ??? Lack of exercise or physical activity (especially true for older adults)??? Changes in lifestyle or daily routine, including , aging, work, and travel ??? Frequent use or misuse of laxatives ??? Ignoring the urge to have a bowel movement or delaying it until later ??? Medicines, such as certain prescription pain medicines, iron supplements, antacids, certain antidepressants, and calcium supplements ??? Diseases like irritable bowel syndrome, bowel obstructions, stroke, diabetes, thyroid disease, Parkinson disease, hemorrhoids, and colon cancer ?? Complications Possible complications of constipation can include: ??? Hemorrhoids ??? Rectal bleeding from hemorrhoids or anal fissures??(skin tears) ??? Hernias ??? Chronic constipation ??? Fecal impaction, a severe form of constipation in which a large amount of hard stool is in your rectum that you can't pass??? Bowel obstruction or perforation ?? Home care All treatment should be done after talking with your healthcare provider. This is especially true if you have another medical problem, are taking prescription medicines, or are an older adult. Treatment most often involves lifestyle changes. You may also need medicines. Your healthcare provider will tell you which will work best for you. Follow the advice below to help avoid this problem in the future. ?? Lifestyle changes These lifestyle changes can help prevent constipation: ??? Diet. Eat a high- fiber diet, with fresh fruit and vegetables, and reduce dairy intake, meats, and processed foods ??? Fluids. It's importantto get enough fluids each day. Drink plenty of water when you eat more fiber. If you are on diet that limits the amount of fluid you can have, talk about this with your healthcare provider. ??? Regular exercise. Check with your healthcare provider first. ?? Medicines Take any medicines as directed. Some laxatives are safe to use only every now and then. Others can be taken on a regular basis. While laxatives don't cause bowel dependence, they are treating the symptoms. So your constipation may return if you don't make other changes. Talk with your healthcare provider or pharmacist if you have questions. Prescription pain medicines can cause constipation. If you are taking this kind of medicine, ask your healthcare provider if you should also take a stool softener. Medicines you may take to treat constipation include: ??? Fiber supplements ??? Stool softeners ???Laxatives ??? Enemas ??? Rectal suppositories ?? Follow-up care Follow up with your healthcare provider if symptoms don't get better in the next few days. You may need to have more tests or see a specialist. ?? Call 911 Call 911 if any of these occur: ??? Trouble breathing ??? Stiff, rigid abdomen that is severely painful to touch ??? Large amount of blood in the stool ??? Confusion ??? Fainting or loss of consciousness ??? Rapid heart rate ??? Chest pain ?? When to seek medical advice Call your healthcare provider right away if any of these occur: ??? Fever of 100.4??F (38??C) or higher, or as directed by your healthcare provider ??? Failure to resume normal bowel movements ??? Pain in your abdomen or back gets worse ??? Nausea or vomiting ??? Swelling in your abdomen ??? Small amount of blood in the stool ??? Black, tarry stool ??? Involuntary weight loss ??? Weakness ?? Last Reviewed Date: 2021 ?? [employer]. All rights reserved. This information is not intended as a substitute for professional medical care. Always follow your healthcare professional's instructions. ?? CT Abdomen and Pelvis W contrast IV * [facility] , CIS S: TRANSCRIBE Estelle Giles MD: VERIFY Event Display: Result: Authored Date: [id number] CT Abd/Pelvis W/ IV Contrast Only Hx of Present Illness: pt states abd pain for years with nausea pt denies any fever or chills.pt denies any SI HI pt denies any chest pain; Reason: Other:; LLQ abdominal pain; Clinical Question(s): Abscess; Order Comment: TECHNIQUE: Spiral CT through the abdomen and pelvis with IV contrast formatted in 3 planes. 100 cc of Omnipaque 300 was administered intravenously. This study was performed without oral contrast. Weight-based protocol using automatic tube modulation was used to optimize exposure parameters. CTDIvol Body: 17.60 mGy, DLP Body: 960 mGy*cm. COMPARISON: 04/29/2019 FINDINGS: Manager Baby View Findings, Lines and Tubes: None. Visualized Chest: Minimal basilar atelectasis. No acute abnormality Diaphragm: Normal. Liver: Normal. Gallbladder: No CT evidence of gallbladder pathology. Bile ducts: No biliary ductal dilation. Spleen: Normal. Pancreas: Normal. Adrenal glands: Normal. Kidneys and ureters: No hydroureteronephrosis. No solid renal mass. Bladder: Nondistended. Mild wall thickening could be due to nondistention. Reproductive organs: Unremarkable. Stomach, small bowel, and large bowel: No bowel obstruction. No regional inflammation. Moderate chronic stool burden with stool mildly distending the sigmoid and rectum. Appendix: Normal. Peritoneum and retroperitoneum: No ascites. No fluid collection. Lymph nodes: No adenopathy. Blood vessels: Nonaneurysmal abdominal aorta. No evidence of venous thrombosis. Abdominal and pelvic wall: No acute abnormality. Tiny fat-containing umbilical hernia. Bones: No acute abnormality. IMPRESSION: No acute abnormality. Mild diffuse bladder wall thickening is most likely due to nondistention. No perivesicular stranding. If there is concern for cystitis correlation with urinalysis can be made. WSN: [id number] Ordering Physician: Elyse Allison Dictated By: Estelle Giles MD Dictated Date/Time: 11/26/22 11:42 a Reviewed By: Estelle Giles MD Signed By: Estelle Giles MD Signed Date/Time: 11/26/22 11:42 am Transcribed By: TOMMY Transcribed Date/Time: 11/26/22 11:38 am Patient Care team information Care Team Personnel Name: Dean Rivas RN Position: [facility] RN Member Role: Primary Care Nurse Name: Fatoumata Stokes DO Position: [facility] Primary Care Physician Member Role: PCP Address: Address: [address] [place] [address] [facility] [place] [address]- Name: Britt Polanco RN Position: [facility] RN Member Role: Primary Care Nurse Name: Anyi Avendano RN Position: [facility] RN Supv Member Role: Primary Care Nurse Name: Awilda Grider RN Position: [facility] RN Member Role: Primary Care Nurse Name: Chintan Leach DO Position: [facility] Renal MD Member Role: Lifetime Consulting Physician Address: Address: [address] [place] [address] [address] [facility] [place] [place] [address]- Name: Chandler Ye RN [facility] Gotti RN Position: [facility] RN Supv Member Role: Primary Care Nurse Name: Kennedi Roca RN Position: [facility] RN Member [...] Mazin Penn MD Position: [facility] Psychiatry MD Member Role: Lifetime Consulting Physician Address: Address: [address] [place] [address] Name: Kody Lofton Position: [facility] ED [facility] Member Role: Patient Care Provider Name: Elyse Allison MD Position: [facility] Resident Member Role: ED Resident Address: Address: [address] [place] [address]- Name: Kevin Adair MD Position: [facility] ED Medicine MD Member Role: Admitting Physician Address: Address: [address] [place] [address]- Name: Ana Galindo Position: [facility] ED RN W/OE and Tasks Member Role: Patient Care Provider Care Team Related Persons Name: STEW PECK Address: home [address] [place] [address] Name: PETER BOBO Address: home [address] [place] [address] Name: PRISCA WESTON Address: home [address] [place] [address]
--- OUTSIDE RECORDS SUMMARY | 2023-08-16 12:31 | XMS_ITS | Continuity of Care Document ---
Author Name Unknown Organization [facility] Address [address] [place] [address]- Care Team Providers Care Head Stock Operator Name Role Phone Fatoumata Stokes DO Primary Care Physician Encounter [facility] Date(s): 08/07/22 - 12/05/22 [facility] [address] [place], [place] [address] Attending Physician: Fatoumata Stokes DO Allergies, [...] 09/29/22 9:09:00 EST, Route to Pharmacy Electronically, [id number], 163, cm, 09/14/22 8:12:00 EST, Height, 87.9, kg, 09/09/22 12:06:00 EST, Dry Weight Start Date: 09/29/22 Status: Ordered benztropine 1 mg oral tablet 1 mg, 1, tablet, By Mouth, 2 times a day, # 60 tablet, Refills 0, Tot. Refills 0, Maintenance, 09/14/22 13:02:00 EST, Route to Pharmacy Electronically, [facility], 163, cm, 09/14/22 8:12:00 EST, Height, 87.9, kg, 09/09/22 12:06:00 EST, D... Start Date: 09/14/22 Stop Date: 10/14/22 Status: Ordered cetirizine 10 mg oral tablet 1 tablet, By Mouth, Daily, # 30 tablet, 0 Refills, Maintenance, 09/14/22 13:03:00 EST, [facility], 163, cm, 09/14/22 8:12:00 EST, Height, 87.9, kg, 09/09/22 12:06:00 EST, Dry Weight Start Date: 09/14/22 Status: Ordered docusate sodium 100 mg oral capsule 1 capsule, By Mouth, 2 times a day, # 60 capsule, 11 Refills, 10/06/22 16:34:00 EST, [facility]/pharmacy #[id number], 163, cm, 09/14/22 8:12:00 EST, Height, 87.9, kg, 09/09/22 12:06:00 EST, Dry Weight Start Date: 10/06/22 Status: Ordered estradiol 0.1 mg/24 hours twice weekly transdermal film, extended release See Instructions, apply 1 patch Topically every tuesday and , # 24 patch, 0 Refills, Maintenance, 11/24/22 12:36:00 EST, [facility]/pharmacy #[id number], Partial fill upon patient request if the prescription is for a schedule II opioid drug., 162, cm, 11/23... Start Date: 11/24/22 Status: Ordered Estradiol Patch 0.1 mg/24 hours twice weekly transdermal film, extended release See Instructions, APPLY 1 PATCH TOPICALLY EVERY TUESDAY & TUESDAY, # 8 patch, 0 Refills, 09/14/22 13:03:00 EST, [facility], APPLY 1 PATCH TOPICALLY EVERY TUESDAY & TUESDAY, 163,cm, 09/14/22 8:12:00 EST, Height, 87.9, kg, 09/09/22 12:06:... Start Date: 09/14/22 Status: Ordered ferrous sulfate 325 mg oral enteric coated tablet 1, tablet, By Mouth, Every other day, may take with food to minimize abdominal discomfort, # 15 tablet, Refills 0, Tot. Refills 0, 09/14/22 13:04:00 EST, Route to Pharmacy Electronically, [facility], 163, cm, 09/14/22 8:12:00 [...] 0 Refills, Maintenance, 09/14/22 13:05:00 EST, Tablet, [facility], Partial fill upon patient request if the prescription is for a schedule II opioid drug., 163, cm, 09/14/22 8:12:0... Start Date: 09/14/22 Status: Ordered medroxyPROGESTERone 150 mg/mL intramuscular suspension 1 mL, Intramuscular, Every 3 months, # 1 mL, 3 Refills, Soft Stop, 03/13/21 13:05:00 EDT, [facility]/pharmacy #[id number], 164, cm, 03/13/21 9:51:00 EDT, Height, 112, kg, 10/14/20 10:13:00 EST, Dry Weight Start Date: 03/13/21 Status: Ordered olanzapine 2.5 mg oral tablet 2.5 mg, 1, tablet, By Mouth, Daily, PRN, Agitation/Psychosis, # 14 tablet, Refills 1, Tot. Refills 1, Maintenance, Other, 10/16/22 12:36:00 EST, Route to Pharmacy Electronically, [facility]/pharmacy #[id number], Partial fill upon patient request if the prescriptio... Start Date: 10/16/22 Stop Date: 11/13/22 Status: Ordered omeprazole 20 mg oral enteric coated capsule 1 capsule, By Mouth, Daily, # 90 capsule, 0 Refills, [id number], 163, cm, 12/30/21 16:23:00 EST, Height, 112, kg, 10/14/20 10:13:00 EST, Dry Weight Start Date: 03/04/22 Status: Ordered perphenazine 16 mg oral tablet 16 mg, 1, tablet, By Mouth, 2 times a day, take with 4mg tablet for a total dose of 20 mg 2 times daily, # 60 tablet, Refills 0, Tot. Refills 0, Maintenance, 09/14/22 13:06:00 EST, Route to Pharmacy Electronically, [facility], Partial fi... Start Date: 09/14/22 Status: Ordered perphenazine 4 mg oral tablet 4 mg, 1, tablet, By Mouth, 2 times a day, take with 16 mg tablet for a total dose of 20 mg 2 times daily, # 60 tablet, Refills 0, Tot. Refills 0, Maintenance, 09/14/22 13:06:00 EST, Route to PharmacyElectronically, [facility], Partial f... Start Date: 09/14/22 Status: Ordered perphenazine 8 mg oral tablet 8 mg, 1, tablet, By Mouth, Daily, at 12 PM, # 30 tablet, Refills 0, Tot. Refills 0, Maintenance, 09/14/22 13:06:00 EST, Route to Pharmacy Electronically, [facility], Partial fill upon patient request if the prescription is for a schedule... Start Date: 09/14/22 Status: Ordered progesterone 200 mg oral capsule 1 capsule = 200 mg, By Mouth, Daily, for 12 days, To take on the first twelve days of each month., # 12 capsule, 3 Refills, Acute 01/11/23 11:56:00 EDT, 11/24/22 11:56:00 EST, Capsule, [facility]/pharmacy #[id number], Partial fill upon patient request if the presc... Start Date: 11/24/22 Stop Date: 01/11/23 Status: Ordered Senna 8.6 mg oral tablet 8.6 mg, 1, tablet, By Mouth, Daily at bedtime, # 30 tablet, Refills 0, Tot. Refills 0, Maintenance,09/14/22 13:06:00 EST, Route to Pharmacy Electronically, [facility] 3 Tablet, Partial fill upon patient request if the prescription is for... Start Date: 09/14/22 Status: Ordered simethicone 125 mg oral capsule See Instructions, TAKE 1 CAPSULE BY MOUTH THREE TIMES A DAY AFTER MEALS AND AT BEDTIME NEEDED, #48 capsule, 11 Refills, Maintenance, 09/24/22 18:10:00 EST, [id number], 163, cm, 09/14/22 8:12:00 EST, Height, 87.9, kg, 09/09/22 12:06:00 EST, Start Date: 09/24/22 Status: Ordered ZyPREXA 2.5 mg oral tablet 2.5 mg, 1, tablet, By Mouth, Daily at bedtime, # 14 tablet, Refills 0, Tot. Refills 0, Maintenance,10/16/22 11:51:00 EST, Route to Pharmacy Electronically, [facility]/pharmacy #[id number], Partial fill upon patient request if the [...] Display: History and Physical Hospital Authored Date: [id number] [place], [place] PSYCHIATRIC HISTORY ASSESS EXAM NAME: LORETTA CELESTIN : 89 MR#: [id number] PCP: ADMITTED: 12/20/15 DATE OF SERVICE: 12/20/15 HPI - Hosp Psych H P Chief Complaint Pt was sent from [facility] here for hallunication History of Present Illness 24 yo AA Female with known schizophrenia was seen at [facility] for hallucination. Apparently pt has been lived in correction and sent to [facility] for acute exacerbation of [...] QDAY Haloperidol* (Haldol*) 5 MG PO BID [place] Carbonate SR* (Lithobid*) 300 MG PO QDAY liTHIum Carbonate SR* ([place] Carbonate SR*) 450 MG PO 4PM Discontinued Reported Medications Citalopram* (CeleXA*) 40 MG PO QDAY Benztropine* 0.5 MG PO BID buPROPion SR* 150 MG PO [id number] Trazodone* (Desyrel*) 100 MG PO HS RisperiDONE* [...] 324 MG QDAY 12/20 09 CKD PO [place] Carbonate 300 MG QDAY 12/20 0900 AC PO Polyethylene Glycol 17 GM QDAY 12/20 09 CKD PO Benztropine Mesylate 1 MG 09,12/19 1700 AC PO Docusate Sodium 100 MG 0900,12/19 1700 AC PO Haloperidol 5 MG 0900,12/19 1700 AC PO [place] Carbonate 450 MG PM 12/19 1700 AC [...] fullly ambulartory Care Level Complexity of Care [id number] Comprehensive history, comprehensive examination, medical decision making of low complexity, at least 20 minutes at the bedside, patient's floor/ unit. ESigned by: YAS GARZA MD Date:12/21/15 Time:1633 / NOT FOR REDISCLOSURE WITHOUT PATIENT'S INFORMED CONSENT Admission evaluation note * Event Display: Admit Notes Authored Date: [place], [place] PSYCHIATRIC ADMISSION NOTE NAME: LORETTA CELESTIN : 89 HOSPITAL #: [id number] MR #: [id number] CHART LOC: PCP: DICTATING: MARIA R Robin MD DATE OF ADMISSION: 12/20/15 DATE OF SERVICE: 12/21/15 CHIEF COMPLAINT: This 23-year-old woman was admitted to [facility] on 12/20/15 on a Conditional Voluntary application because of suicidal ideation. HISTORY OF PRESENT ILLNESS: The patient has been treated for schizoaffective disorder depressed type, posttraumatic stress disorder, intellectual disability and alcohol syndrome with multiple hospitalizations for self-harming behavior and suicidal ideation. She presented to Crisis Services from her correction reporting that she was having urges to [...] how they had evolved. Staff at the correction where she lives reported her as unusually [...] HISTORY: The patient is living in a correction. Came to [place] with her grandmother in [...] year NAME: LORETTA CELESTIN : 89 HOSP#: [id number] MR#: [id number] CHART LOC: PCP: DICTATING: MARIA R Robin MD PSYCHIATRIC ADMISSION NOTE CONTINUED: unknown. TREATMENT PLAN: Resume outpatient medications, physical exam, collateral contact with community caregivers and social network, safety plan, aftercare plan and observe. 927 T: DD:[id number] TD:0745 DT:[id number] TT:0924 JOB:[id number] MICHELLE/SHANNON MARIA R Robin MD ESigned by: Date:12/22/15 Time:642 NOT FOR REDISCLOSURE WITHOUT PATIENT'S INFORMED CONSENT Patient Care team information Care Team Personnel Name: Dean Rivas RN Position: [facility] RN Member Role: Primary Care Nurse Name: Fatoumata Stokes DO Position: [facility] Primary Care Physician Member Role: PCP Address: Address: [address] [place] [address] Adult [place] [address]- Name: Britt Polanco RN Position: [facility] RN Member Role: Primary Care Nurse Name: Anyi Avendano RN Position: [facility] RN Supv Member Role: Primary Care Nurse Name: Awilda Grider RN Position: [facility] RN Member Role: Primary Care Nurse Name: Chintan Leach DO Position: [facility] Renal MD Member Role: Lifetime Consulting Physician Address: Address: [address] [place] [address] [address] [facility] [place] [address]- Name: Chandler Ye RN [facility] Vincent RN Position: [facility] RN [...] RN Position: [facility] RN Supv Member Role: Primary Care Nurse Name: Kennedi Roca RN Position: [facility] RN [...] Penn MD Position: [facility] Psychiatry MD Member Role: Lifetime Consulting Physician Address: Address: [address] [place] [id number]- [place] Care Team Related Persons Name: STEW PECK Address: home [address] [place] [address] Name: CHCFPETER GILBERT Address: [address] [place] [address] Name: PRISCA WESTON Address: [address] [place] [address]
--- OUTSIDE RECORDS SUMMARY | 2023-08-16 12:31 | XMS_ITS | Continuity of Care Document ---
Author Name Unknown Organization [facility] Address [address], [address] [place] [address]- Care Team Providers Care Faculty Research Physician Name Role Phone Fatoumata Stokes DO Primary Care Physician ( [phone] Encounter [facility] [place] Date(s): 11/25/22 [facility] [address], [address] [place], [place] [address] Allergies, Adverse Reactions, Alerts Substance Reaction Severity [...] 09/29/22 9:09:00 EST, Route to Pharmacy Electronically, [facility], 163, cm, 09/14/22 8:12:00 EST, Height, 87.9, kg, 09/09/22 12:06:00 EST, Dry Weight Start Date: 09/29/22 Status: Ordered benztropine 1 mg oral tablet 1 mg, 1, tablet, By Mouth, 2 times a day, # 60 tablet, Refills 0, Tot. Refills 0, Maintenance, 09/14/22 13:02:00 EST, Route to Pharmacy Electronically, [facility], 163, cm, 09/14/22 8:12:00 EST, Height, 87.9, kg, 09/09/22 12:06:00 EST, D... Start Date: 09/14/22 Stop Date: 10/14/22 Status: Ordered cetirizine 10 mg oral tablet 1 tablet, By Mouth, Daily, # 30 tablet, 0 Refills, Maintenance, 09/14/22 13:03:00 EST, [facility], 163, cm, 09/14/22 8:12:00 EST, Height, 87.9, kg, 09/09/22 12:06:00 EST, Dry Weight Start Date: 09/14/22 Status: Ordered docusate sodium 100 mg oral capsule 1 capsule, By Mouth, 2 times a day, # 60 capsule, 11 Refills, 10/06/22 16:34:00 EST, [facility]/pharmacy #[id number], 163, cm, 09/14/22 8:12:00 EST, Height, 87.9, kg, 09/09/22 12:06:00 EST, Dry Weight Start Date: 10/06/22 Status: Ordered estradiol 0.1 mg/24 hours twice weekly transdermal film, extended release See Instructions, apply 1 patch Topically every tuesday and , # 24 patch, 0 Refills, Maintenance, 11/24/22 12:36:00 EST, [facility]/pharmacy #[id number], Partial fill upon patient request if the prescription is for a schedule II opioid drug., 162, cm, 11/23... Start Date: 11/24/22 Status: Ordered Estradiol Patch 0.1 mg/24 hours twice weekly transdermal film, extended release See Instructions, APPLY 1 PATCH TOPICALLY EVERY TUESDAY & TUESDAY, # 8 patch, 0 Refills, 09/14/22 13:03:00 EST, [facility], APPLY 1 PATCH [...] 13:04:00 EST, Route to Pharmacy Electronically, [facility], 163, cm, 09/14/22 [...] Refills, Maintenance, 09/14/22 13:05:00 EST, Tablet, [facility], Partial fill upon [...] 10/16/22 12:36:00 EST, Route to Pharmacy Electronically, [facility]/pharmacy #[id number], Partial fill upon patient request if the prescriptio... Start Date: 10/16/22 Stop Date: 11/13/22 Status: Ordered omeprazole 20 mg oral enteric coated capsule 1 capsule, By Mouth, Daily, # 90 capsule, 0 Refills, [facility], 163, cm, 09/24/21 16:23:00 EST, Height, 112, kg, 10/14/20 10:13:00 EST, Dry Weight Start Date: 03/04/22 Status: Ordered perphenazine 16 mg oral tablet 16 mg, 1, tablet, By Mouth, 2 times a day, take with 4mg tablet for a total dose of 20 mg 2 times daily, # 60 tablet, Refills 0, Tot. Refills 0, Maintenance, 09/14/22 13:06:00 EST, Route to Pharmacy Electronically, [facility], Partial fi... Start Date: 09/14/22 Status: Ordered perphenazine 4 mg oral tablet 4 mg, 1, tablet, By Mouth, 2 times a day, take with 16 mg tablet for a total dose of 20 mg 2 times daily, # 60 tablet, Refills 0, Tot. Refills 0, Maintenance, 09/14/22 13:06:00 EST, Route to PharmacyElectronically, [facility], Partial f... Start Date: 09/14/22 Status: Ordered perphenazine 8 mg oral tablet 8 mg, 1, tablet, By Mouth, Daily, at 12 PM, # 30 tablet, Refills 0, Tot. Refills 0, Maintenance, 09/14/22 13:06:00 EST, Route to Pharmacy Electronically, [facility] 3, Partial fill upon patient request if the prescription is for a schedule... Start Date: 09/14/22 Status: Ordered progesterone 200 mg oral capsule 1 capsule = 200 mg, By Mouth, Daily, for 12 days, To take on the first twelve days of each month., # 12 capsule, 3 Refills, Acute 01/11/23 11:56:00 EDT, 11/24/22 11:56:00 EST, Capsule, [facility]/pharmacy #[id number], Partial fill upon patient request if the presc... Start Date: 11/24/22 Stop Date: 01/11/23 Status: Ordered Senna 8.6 mg oral tablet 8.6 mg, 1, tablet, By Mouth, Daily at bedtime, # 30 tablet, Refills 0, Tot. Refills 0, Maintenance,09/14/22 13:06:00 EST, Route to Pharmacy Electronically, [facility] 3 Tablet, Partial fill upon patient request if the prescription is for... Start Date: 09/14/22 Status: Ordered simethicone 125 mg oral capsule See Instructions, TAKE 1 CAPSULE BY MOUTH THREE TIMES A DAY AFTER MEALS AND AT BEDTIME NEEDED, #48 capsule, 11 Refills, Maintenance, 09/24/22 18:10:00 EST, [facility], 163, cm, 09/14/22 8:12:00 EST, Height, 87.9, kg, 09/09/22 12:06:00 EST, Start Date: 09/24/22 Status: Ordered ZyPREXA 2.5 mg oral tablet 2.5 mg, 1, tablet, By Mouth, Daily at bedtime, # 14 tablet, Refills 0, Tot. Refills 0, Maintenance,10/16/22 11:51:00 EST, Route to Pharmacy Electronically, [facility]/pharmacy #[id number], Partial fill upon patient request if the [...] Display: History and Physical Hospital Authored Date: [id number] [place], [place] PSYCHIATRIC HISTORY ASSESS EXAM NAME: LORETTA CELESTIN : 89 MR#: [id number] PCP: ADMITTED: 12/20/15 DATE OF SERVICE: 12/20/15 HPI - Hosp Psych H P Chief Complaint Pt was sent from [facility] here for hallunication History of Present Illness 24 yo AA Female with known schizophrenia was seen at [facility] [place] [facility] for hallucination. Apparently pt has been lived in [facility] and sent to [facility] [place] [place] for acute exacerbation of her underline schizophrenia. [...] QDAY Haloperidol* (Haldol*) 5 MG PO BID [place] Carbonate SR* (Lithobid*) 300 MG PO QDAY liTHIum Carbonate SR* ([place] Carbonate SR*) 450 MG PO 4PM Discontinued Reported Medications Citalopram* (CeleXA*) 40 MG PO QDAY Benztropine* 0.5 MG PO BID buPROPion SR* 150 MG PO [id number] Trazodone* (Desyrel*) 100 MG PO HS RisperiDONE* [...] 324 MG QDAY 12/20 09 CKD PO [place] Carbonate 300 MG QDAY 12/20 0900 AC PO Polyethylene Glycol 17 GM QDAY 12/20 09 CKD PO Benztropine Mesylate 1 MG 09,12/19 1700 AC PO Docusate Sodium 100 MG 0900,12/19 1700 AC PO Haloperidol 5 MG 0900,12/19 1700 AC PO [place] Carbonate 450 MG PM 12/19 1700 AC [...] fullly ambulartory Care Level Complexity of Care [id number] Comprehensive history, comprehensive examination, medical decision making of low complexity, at least 20 minutes at the bedside, patient's floor/ unit. ESigned by: YAS GARZA MD Date:12/21/15 Time:1633 / NOT FOR REDISCLOSURE WITHOUT PATIENT'S INFORMED CONSENT Admission evaluation note * Event Display: Admit Notes Authored Date: [place], [place] PSYCHIATRIC ADMISSION NOTE NAME: LORETTA CELESTIN : 89 HOSPITAL #: [id number] MR #: [id number] CHART LOC: PCP: DICTATING: MARIA R Robin MD DATE OF ADMISSION: 12/20/15 DATE OF SERVICE: 12/21/15 CHIEF COMPLAINT: This 23-year-old woman was admitted to [facility] on 12/20/15 on a Conditional Voluntary application because of suicidal ideation. HISTORY OF PRESENT ILLNESS: The patient has been treated for schizoaffective disorder depressed type, posttraumatic stress disorder, intellectual disability and alcohol syndrome with multiple hospitalizations for self-harming behavior and suicidal ideation. She presented to Crisis Services from her [facility] reporting that she was having urges to [...] how they had evolved. Staff at the [facility] where she lives reported her as unusually [...] HISTORY: The patient is living in a [facility]. Came to [place] with her grandmother [...] year NAME: LORETTA CELESTIN : 89 HOSP#: [id number] MR#: [id number] CHART LOC: PCP: DICTATING: MARIA R Robin MD PSYCHIATRIC ADMISSION NOTE CONTINUED: unknown. TREATMENT PLAN: Resume outpatient medications, physical exam, collateral contact with community caregivers and social network, safety plan, aftercare plan and observe. 927 T: DD:[id number] TD:0745 DT:20151221 TT:0924 JOB:[id number] MICHELLE/SHANNON MARIA R Robin MD ESigned by: Date:12/22/15 Time:642 NOT FOR REDISCLOSURE WITHOUT PATIENT'S INFORMED CONSENT Patient Care team information Care Team Personnel Name: Dean Rivas RN Position: [facility] RN Member Role: Primary Care Nurse Name: Fatoumata Stokes DO Position: [facility] Primary Care Physician Member Role: PCP Address: Address: [address] [place] [address] Adult [place] [address]- Name: Britt Polanco RN Position: [facility] RN Member Role: Primary Care Nurse Name: Anyi Avendano RN Position: [facility] RN Supv Member Role: Primary Care Nurse Name: Awilda Grider RN Position: [facility] RN Member Role: Primary Care Nurse Name: Chintan Leach DO Position: [facility] Renal MD Member Role: Lifetime Consulting Physician Address: Address: [address] [place] [address] [address] [facility] [place] [address]- Name: Chandler Ye RN Position: [facility] RN Member Role: Primary Care Nurse Name: Apurva Ji RN Position: [facility] ED RN W/OE and Tasks Member Role: Primary Care Nurse Name: Cordelia Matias RN Position: [facility] AMB Nurse Member Role: Primary Care Nurse Name: Radha Gutierrez Position: [facility] Outreach Member Role: Primary Care Nurse Name: Keenan Vincent RN Position: [facility] RN Member Role: Primary Care Nurse Name: Sasha Patricio RN Position: [facility] RN Member Role: Primary Care Nurse Name: Virgie Angel Position: [facility] RN Member Role: Primary Care Nurse Name: Azeb Gusman RN Position: [facility] RN Member Role: Primary Care Nurse Name: Meredith Martinez RN Position: [facility] RN Member Role: Primary Care Nurse Name: Anika Gotti RN Position: [facility] RN Supv Member Role: Primary Care Nurse Name: Kennedi Roca RN Position: [facility] RN Member Role: Primary Care Nurse Name: Justina Walker RN Position: [facility] RN Member Role: Primary Care Nurse Name: Kenia Zuniga RN Position: [facility] PCO w/OE and EZ Script Member Role: Primary Care Nurse Name: Ivone Hidalgo RN Position: [facility] RN Member Role: Primary Care Nurse Name: Mazin Penn MD Position: [facility] Psychiatry MD Member Role: Lifetime Consulting Physician Address: Address: [address] [place] [address]- [place] Care Team Related Persons Name: DORITA HERNANDEZ Address: [address] [place] [address] Name: STEW PECK Address: [address] [place] [address] Name: LOUIE ELLISONORPETER Address: [address] [place] [address]
--- OUTSIDE RECORDS SUMMARY | 2023-08-16 12:31 | XMS_ITS | Continuity of Care Document ---
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 Refills 0, Maintenance, 09/14/22 13:02:00 EST, Route to Pharmacy Electronically, [facility], 163, cm, 09/14/22 8:12:00 EST, Height, 87.9, kg, 09/09/22 12:06:00 EST, D... Start Date: 09/14/22 Stop Date: 10/14/22 Status: Ordered cetirizine 10 mg oral tablet 1 tablet, By Mouth, Daily, # 30 tablet, 0 Refills, Maintenance, 09/14/22 13:03:00 EST, [facility], 163, cm, 09/14/22 8:12:00 EST, Height, 87.9, kg, 09/09/22 12:06:00 EST, Dry Weight Start Date: 09/14/22 Status: Ordered docusate sodium 100 mg oral capsule 1 capsule, By Mouth, 2 times a day, # 60 capsule, 11 Refills, 10/06/22 16:34:00 EST, [facility]/pharmacy #[id number], 163, cm, 09/14/22 8:12:00 EST, Height, 87.9, kg, 09/09/22 12:06:00 EST, Dry Weight Start Date: 10/06/22 Status: Ordered Estradiol Patch 0.1 mg/24 hours twice weekly transdermal film, extended release See Instructions, APPLY 1 PATCH TOPICALLY EVERY TUESDAY & TUESDAY, # 8 patch, 0 Refills, 09/14/22 13:03:00 EST, [facility], APPLY 1 PATCH TOPICALLY EVERY TUESDAY & TUESDAY, 163,cm, 09/14/22 8:12:00 EST, Height, 87.9, kg, 09/09/22 12:06:... Start Date: 09/14/22 Status: Ordered ferrous sulfate 325 mg oral enteric coated tablet 1, tablet, By Mouth, Every other day, may take with food to minimize abdominal discomfort, # 15 tablet, Refills 0, Tot. Refills 0, 09/14/22 13:04:00 EST, Route to Pharmacy Electronically, [facility], 163, cm, 09/14/22 8:12:00 EST, Height... [...] 0 Refills, Maintenance, 09/14/22 13:05:00 EST, Tablet, [facility], Partial fill upon patient request [...] Refills, [id number], 163, cm, 09/24/21 16:23:00 EST, Height, 112, kg, 10/14/20 10:13:00 EST, Dry Weight Start Date: 03/04/22 Status: Ordered perphenazine 16 mg oral tablet 16 mg, 1, tablet, By Mouth, 2 times a day, take with 4mg tablet for a total dose of 20 mg 2 times daily, # 60 tablet, Refills 0, Tot. Refills 0, Maintenance, 09/14/22 13:06:00 EST, Route to Pharmacy Electronically, [facility], Partial fi... Start Date: 09/14/22 Status: Ordered perphenazine 4 mg oral tablet 4 mg, 1, tablet, By Mouth, 2 times a day, take with 16 mg tablet for a total dose of 20 mg 2 times daily, # 60 tablet, Refills 0, Tot. Refills 0, Maintenance, 09/14/22 13:06:00 EST, Route to PharmacyElectronically, [facility], Partial f... Start Date: 09/14/22 Status: Ordered perphenazine 8 mg oral tablet 8 mg, 1, tablet, By Mouth, Daily, at 12 PM, # 30 tablet, Refills 0, Tot. Refills 0, Maintenance, 09/14/22 13:06:00 EST, Route to Pharmacy Electronically, [facility], Partial fill upon patient request if the prescription is for a schedule... Start Date: 09/14/22 Status: Ordered Senna 8.6 mg oral tablet 8.6 mg, 1, tablet, By Mouth, Daily at bedtime, # 30 tablet, Refills 0, Tot. Refills 0, Maintenance,09/14/22 13:06:00 EST, Route to Pharmacy Electronically, [facility] Tablet, Partial fill upon patient request if the prescription is for... Start Date: 09/14/22 Status: Ordered simethicone 125 mg oral capsule See Instructions, TAKE 1 CAPSULE BY MOUTH THREE TIMES A DAY AFTER MEALS AND AT BEDTIME NEEDED, #48 capsule, 11 Refills, Maintenance, 09/24/22 18:10:00 EST, [facility], 163, cm, 09/14/22 8:12:00 EST, Height, 87.9, kg, 09/09/22 12:06:00 EST, Start Date: 09/24/22 Status: Ordered Problem List Condition Confirmation Course [...] 2 Oxygen Saturation [94-100 %] 100 % (10/09/22 5:02 PM) 100 % (10/09/22 10:35 AM) Pulse Rate [55-90 bpm] 92 bpm *H* (10/09/22 5:02 PM) 100 bpm *H* (10/09/22 10:35 AM) Blood Pressure [90-138/55-84 mm Hg] 124/ 97mm Hg (10/09/22 5:02 PM) 154/95mm Hg *H* (10/09/22 10:35 AM) Respiratory Rate [16-30 br/min] 18 br/mi n (10/09/22 5:02 PM) 16 br/min (10/09/22 10:35 AM) Temperature [96.8-100.4 DegF] 97.7 DegF (10/09/22 5:02 PM) 98.8 DegF (10/09/22 10:35 AM) Mode of Delivery (Oxygen) Room air (10/09/22 5:02 PM) Room air (10/09/22 10:35 AM) Blood pressure sites Arm, right (10/09/22 5:02 PM) Arm, left (10/09/22 10:35 AM) Temperature Route Oral (10/09/22 5:02 PM) Oral (10/09/22 10:35 AM) Social History Social History Type Response Tobacco Use: 4 or less cigar ettes(less than 1/4 pack)/day in last 30 days. Sex History and physical note * Event Display: History and Physical Hospital Authored Date: [place], [place] PSYCHIATRIC HISTORY ASSESS EXAM NAME: LORETTA CELESTIN : 89 MR#: [id number] PCP: ADMITTED: 12/20/15 DATE OF SERVICE: 12/20/15 HPI - Hosp Psych H P Chief Complaint Pt was sent from [facility] [place] [place] here for hallunication History of Present Illness 24 yo AA Female with known schizophrenia was seen [place] [facility] [place]. Apparently pt has been lived in skilled nursing and sent to [facility] for acute exacerbation of her underline schizophrenia. [...] QDAY Haloperidol* (Haldol*) 5 MG PO BID [place] Carbonate SR* (Lithobid*) 300 MG PO QDAY liTHIum Carbonate SR* ([place] Carbonate SR*) 450 MG PO 4PM Discontinued Reported Medications Citalopram* (CeleXA*) 40 MG PO QDAY Benztropine* 0.5 MG PO BID buPROPion SR* 150 MG PO [id number] Trazodone* (Desyrel*) 100 MG PO HS RisperiDONE* [...] 324 MG QDAY 12/20 0900 CKD PO [place] Carbonate 300 MG QDAY 12/20 0900 AC PO Polyethylene Glycol 17 GM QDAY 12/20 0900 CKD PO Benztropine Mesylate 1 MG 0900,1700 12/19 1700 AC PO Docusate Sodium 100 MG 0900,1700 12/19 1700 AC PO Haloperidol 5 MG 0900,1700 12/19 1700 AC PO [place] Carbonate 450 MG PM 12/19 1700 AC PO Risperidone 0.5 MG 0900,12/19 1700 AC PO Senna 17.2 MG 0900,17012/19 [...] fullly ambulartory Care Level Complexity of Care C05666 Comprehensive history, comprehensive examination, medical decision making of low complexity, at least 20 minutes at the bedside, patient's floor/ unit. ESigned by: YAS GARZA MD Date:12/21/15 Time:1633 / NOT FOR REDISCLOSURE WITHOUT PATIENT'S INFORMED CONSENT Admission evaluation note * Event Display: Admit Notes Authored Date: [id number] [place], [place] PSYCHIATRIC ADMISSION NOTE NAME: LORETTA CELESTIN : 89 HOSPITAL #: [id number] MR #: [id number] CHART LOC: PCP: DICTATING: MARIA R Robin MD DATE OF ADMISSION: 12/20/15 DATE OF SERVICE: 12/21/15 CHIEF COMPLAINT: This 23-year-old woman was admitted to [facility] on 12/20/15 on a Conditional Voluntary application because of suicidal ideation. HISTORY OF PRESENT ILLNESS: The patient has been treated for schizoaffective disorder depressed type, posttraumatic stress disorder, intellectual disability and alcohol syndrome with multiple hospitalizations for self-harming behavior and suicidal ideation. She presented to Crisis Services from her skilled nursing reporting that she was having urges to [...] how they had evolved. Staff at the skilled nursing where she lives reported her as unusually [...] HISTORY: The patient is living in a skilled nursing. Came to [place] with her grandmother [...] year NAME: LORETTA CELESTIN : 89 HOSP#: [id number] MR#: [id number] CHART LOC: PCP: DICTATING: MARIA R Robin MD PSYCHIATRIC ADMISSION NOTE CONTINUED: unknown. TREATMENT PLAN: Resume outpatient medications, physical exam, collateral contact with community caregivers and social network, safety plan, aftercare plan and observe. 927 T:sn DD:[id number] TD:[id number] DT:[id number] TT:0924 JOB:[id number] TORIE MARIA R Robin MD ESigned by: Date:12/22/15 Time:642 NOT FOR REDISCLOSURE WITHOUT PATIENT'S INFORMED CONSENT Patient Care team information Care Team Personnel Name: Dean Rivas RN Position: [facility] RN Member Role: Primary Care Nurse Name: Fatoumata Stokes DO Position: [facility] Primary Care Physician Member Role: PCP Address: Address: [address] [place] [address] Adult [facility] [place] [address]- Name: Britt Polanco RN Position: [facility] RN Member Role: Primary Care Nurse Name: Anyi Avendano RN Position: [facility] RN Supv Member Role: Primary Care Nurse Name: Awilda Grider RN Position: [facility] RN Member Role: Primary Care Nurse Name: Chintan Leach DO Position: [facility] Renal MD Member Role: Lifetime Consulting Physician Address: Address: [address] [place], [place] [address] [place], [place] [address] Name: Chandler Ye RN Position: [facility] ED RN W/OE and Tasks Member Role: Primary Care Nurse Name: Apurva Ji RN Position: [facility] ED RN W/OE and Tasks Member Role: Primary Care Nurse Name: Cordelia Matias RN Position: [facility] AMB Nurse Member Role: Primary Care Nurse Name: Radha Gutierrez Position: [facility] Outreach Member Role: Primary Care Nurse Name: Keenan Vincent RN Position: [facility] RN Member Role: Primary Care Nurse Name: Sasha Patricio RN Position: [facility] RN Member Role: Primary Care Nurse Name: Virgie Angel Position: [facility] RN Member Role: Primary Care Nurse Name: Umesh Pearson RN Position: [facility] RN Member Role: Primary Care Nurse Name: Azeb Gusman RN Position: [facility] RN Member Role: Primary Care Nurse Name: Meredith Martinez RN Position: [facility] RN Member Role: Primary Care Nurse Name: Anika Gotti RN Position: [facility] RN Supv Member Role: Primary Care Nurse Name: Kennedi Roca RN Position: [facility] RN Member Role: Primary Care Nurse Name: Justina Walker RN Position: [facility] RN Member Role: Primary Care Nurse Name: Kenia Zuniga RN Position: [facility] PCO w/OE and EZ Script Member Role: Primary Care Nurse Name: Ivone Hidalgo RN Position: [facility] RN Member Role: Primary Care Nurse Name: Mazin Penn MD Position: [facility] Psychiatry MD Member Role: Lifetime Consulting Physician Address: Address: [address] [place] [id number]- Name: Chad Lozoya MD Position: [facility] ED Medicine MD Member Role: Admitting Physician Address: Address: [address] [place] [address] Name: Nova Pike RN Position: [facility] ED RN W/OE and Tasks Member Role: Chart Review Name: Venessa Cummins DO Position: [facility] Resident Member Role: Resident Address: Address: [address] [place] [id number]- Care Team Related Persons Name: LIV STEW Address: home [address] [place] [address] Name: PRISCA WESTON Address: home [address] [place] [address] Name: NOVA VASQUEZ Address: [address] [place] [address]
--- OUTSIDE RECORDS SUMMARY | 2023-08-16 12:31 | XMS_ITS | Continuity of Care Document ---
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 Refills 0, Maintenance, 09/14/22 13:02:00 EST, Route to Pharmacy Electronically, [facility], 163, cm, 09/14/22 8:12:00 EST, Height, 87.9, kg, 09/09/22 12:06:00 EST, D... Start Date: 09/14/22 Stop Date: 10/14/22 Status: Ordered cetirizine 10 mg oral tablet 1 tablet, By Mouth, Daily, # 30 tablet, 0 Refills, Maintenance, 09/14/22 13:03:00 EST, [facility], 163, cm, 09/14/22 8:12:00 EST, Height, 87.9, kg, 09/09/22 12:06:00 EST, Dry Weight Start Date: 09/14/22 Status: Ordered docusate sodium 100 mg oral capsule 1 capsule, By Mouth, 2 times a day, # 60 capsule, 11 Refills, 10/06/22 16:34:00 EST, [facility]/pharmacy #[id number], 163, cm, 09/14/22 8:12:00 EST, Height, 87.9, kg, 09/09/22 12:06:00 EST, Dry Weight Start Date: 10/06/22 Status: Ordered estradiol 0.1 mg/24 hours twice weekly transdermal film, extended release See Instructions, apply 1 patch Topically every tuesday and , # 24 patch, 0 Refills, Maintenance, 11/24/22 12:36:00 EST, [facility]/pharmacy #[id number], Partial fill upon patient request if the prescription is for a schedule II opioid drug., 162, cm, 11/23... Start Date: 11/24/22 Status: Ordered Estradiol Patch 0.1 mg/24 hours twice weekly transdermal film, extended release See Instructions, APPLY 1 PATCH TOPICALLY EVERY TUESDAY & TUESDAY, # 8 patch, 0 Refills, 09/14/22 13:03:00 EST, [facility], APPLY 1 PATCH TOPICALLY EVERY TUESDAY & TUESDAY, 163,cm, 09/14/22 8:12:00 EST, Height, 87.9, kg, 09/09/22 12:06:... Start Date: 09/14/22 Status: Ordered ferrous sulfate 325 mg oral enteric coated tablet 1, tablet, By Mouth, Every other day, may take with food to minimize abdominal discomfort, # 15 tablet, Refills 0, Tot. Refills 0, 09/14/22 13:04:00 EST, Route to Pharmacy Electronically, [facility], 163, cm, 09/14/22 8:12:00 [...] 0 Refills, Maintenance, 09/14/22 13:05:00 EST, Tablet, [facility], Partial fill upon patient request if the prescription is for a schedule II opioid drug., 163, cm, 09/14/22 8:12:0... Start Date: 09/14/22 Status: Ordered medroxyPROGESTERone 150 mg/mL intramuscular suspension 1 mL, Intramuscular, Every 3 months, # 1 mL, 3 Refills, Soft Stop, 03/13/21 13:05:00 EDT, [facility]/pharmacy #[id number], 164, cm, 03/13/21 9:51:00 EDT, Height, 112, kg, 10/14/20 10:13:00 EST, Dry Weight Start Date: 03/13/21 Status: Ordered olanzapine 2.5 mg oral tablet 2.5 mg, 1, tablet, By Mouth, Daily, PRN, Agitation/Psychosis, # 14 tablet, Refills 1, Tot. Refills 1, Maintenance, Other, 10/16/22 12:36:00 EST, Route to Pharmacy Electronically, [facility]/pharmacy #[id number], Partial fill upon patient request if the prescriptio... Start Date: 10/16/22 Stop Date: 11/13/22 Status: Ordered omeprazole 20 mg oral enteric coated capsule 1 capsule, By Mouth, Daily, # 90 capsule, 0 Refills, [id number], 163, cm, 09/24/21 16:23:00 EST, Height, 112, [...] Maintenance, 09/14/22 13:06:00 EST, Route to PharmacyElectronically, [facility], Partial f... Start Date: 09/14/22 [...] Refills, Maintenance, 09/24/22 18:10:00 EST, [facility], 163, cm, 09/14/22 8:12:00 EST, Height, 87.9, kg, 09/09/22 12:06:00 EST, Start Date: 09/24/22 Status: Ordered ZyPREXA 2.5 mg oral tablet 2.5 mg, 1, tablet, By Mouth, Daily at bedtime, # 14 tablet, Refills 0, Tot. Refills 0, Maintenance,10/16/22 11:51:00 EST, Route to Pharmacy Electronically, [facility]/pharmacy #[id number], Partial fill upon patient request if the [...] 3 Oxygen Saturation [94-100 %] 100 % (04/19/23 11:21 AM) 100 % (04/18/23 5:50 PM) 99 % (04/18/23 1:57 PM) Pulse Rate [55-90 bpm] 87 bpm (04/19/23 11:21 AM) 88 bpm (04/18/23 5:50 PM) 83 bpm (04/18/23 1:57 PM) Blood Pressure [90-138/55-84 mm Hg] 139/98mm Hg *H* (04/19/23 11:21 AM) 131/78mm Hg (04/18/23 5:50 PM) 129/72mm Hg (04/18/23 1:57 PM) Respiratory Rate [16-30 br/min] 19 br/min (04/19/23 11:21 AM) 17 br/min (04/18/23 5:50 PM) 16 br/min (04/18/23 1:57 PM) Temperature [96.8-100.4 DegF] 98.2 DegF (04/19/23 11:21 AM) 98.6 DegF (04/18/23 5:50 PM) 98.6 DegF (04/18/23 1:57 PM) Mode of Delivery (Oxygen) Room air (04/18/23 5:50 PM) Room air (04/18/23 1:57 PM) Blood pressure sites Arm, left (04/18/23 5:50 PM) Arm, right (04/18/23 1:57 PM) Temperature Route Oral (04/19/23 11:21 AM) Oral (04/18/23 5:50 PM) Oral (04/18/23 1:57 PM) Social History Social History Type Response Tobacco Use: 4 or less cigar ettes(less than 1/4 pack)/day in last 30 days. Sex History and physical note * Event Display: History and Physical Hospital Authored Date: [id number] [place], [place] PSYCHIATRIC HISTORY ASSESS EXAM NAME: LORETTA CELESTIN : 89 MR#: [id number] PCP: ADMITTED: 12/20/15 DATE OF SERVICE: 12/20/15 HPI - Hosp Psych H P Chief Complaint Pt was sent from [facility] here for hallunication History of Present Illness 24 yo AA Female with known schizophrenia was seen at [facility] for hallucination. Apparently pt has been lived in residential and sent to [facility] for acute exacerbation of her underline schizophrenia. [...] QDAY Haloperidol* (Haldol*) 5 MG PO BID Lacoste Carbonate SR* (Lithobid*) 300 MG PO QDAY liTHIum Carbonate SR* (Lacoste Carbonate SR*) 450 MG PO 4PM Discontinued Reported Medications Citalopram* (CeleXA*) 40 MG PO QDAY Benztropine* 0.5 MG PO BID buPROPion SR* 150 MG PO [id number] Trazodone* (Desyrel*) 100 MG PO HS RisperiDONE* [...] 324 MG QDAY 12/20 0900 CKD PO Lacoste Carbonate 300 MG QDAY 12/20 0900 AC PO Polyethylene Glycol 17 GM QDAY 12/20 0900 CKD PO Benztropine Mesylate 1 MG 0900,1700 12/19 1700 AC PO Docusate Sodium 100 MG 0900,1700 12/19 1700 AC PO Haloperidol 5 MG 0900,12/19 1700 AC PO Lacoste Carbonate 450 MG PM 12/19 1700 AC PO Risperidone 0.5 MG 0900,12/19 1700 AC PO Senna 17.2 MG 0900,1700 [...] fullly ambulartory Care Level Complexity of Care [id number] Comprehensive history, comprehensive examination, medical decision making of low complexity, at least 20 minutes at the bedside, patient's floor/ unit. ESigned by: YAS GARZA MD Date:12/21/15 Time:1633 / NOT FOR REDISCLOSURE WITHOUT PATIENT'S INFORMED CONSENT Admission evaluation note * Event Display: Admit Notes Authored Date: [id number] [place], [place] PSYCHIATRIC ADMISSION NOTE NAME: LORETTA CELESTIN : 89 HOSPITAL #: [id number] MR #: [id number] CHART LOC: PCP: DICTATING: MARIA R Robin MD DATE OF ADMISSION: 12/20/15 DATE OF SERVICE: 12/21/15 CHIEF COMPLAINT: This 23-year-old woman was admitted to [facility] on 12/20/15 on [...] is living in a residential. Came to [place] with her grandmother in 2013, was very [...] year NAME: LORETTA CELESTIN : 89 HOSP#: [id number] MR#: [id number] CHART LOC: PCP: DICTATING: MARIA R Robin MD PSYCHIATRIC ADMISSION NOTE CONTINUED: unknown. TREATMENT PLAN: Resume outpatient medications, physical exam, collateral contact with community caregivers and social network, safety plan, aftercare plan and observe. 927 T: DD:[id number] TD:0745 DT:[id number] TT:0924 JOB:[id number] MICHELLE/SHANNON MARIA R Robin MD ESigned by: Date:12/22/15 Time:0643 NOT FOR REDISCLOSURE WITHOUT PATIENT'S INFORMED CONSENT Note * Janusz Ferris MD: PERFORM Event Display: Patient Education Leaflets Authored Date: [id number] Schizophrenia, General Type ?? [id number] Schizophrenia, General Type Schizophrenia is a chronic, severe, often disabling mental health disorder that makes functioning in work and society difficult. The difference been reality and what you think is reality becomes blurred in your mind. Schizophrenia is not as common as other severe mental health problems, but it can have a severe, disabling effect on a person. It usually first appears in adolescence or early adulthood. One or more bout of symptoms must last for at least 6 months before a diagnosis is made. The cause of schizophrenia is not yet known. It's believed to be a result of genetic and biologicalfactors (brain chemistry and structure). Schizophrenia does run in families and occurs in about 1 in 100 adults. Environmental factors may also have a role in schizophrenia. These may include where you grew up, toxins you are exposed to, and infections you've had. Symptoms include: ??? Loss of touch with reality (psychosis) ??? Seeing or hearing things that are not there (hallucinations) ??? False beliefs (delusions) ??? Disorganized thinking and speech ??? Severe anxiety ??? Feeling unreal ??? Paranoia ??? Insomnia ??? Trouble thinking or concentrating clearly ??? Depressionor feeling suicidal ??? Withdrawal from those around you (social withdrawal) ??? Limited range of emotions (flat affect) ??? Problems with reasoning and problem solving (cognitive deficits) ??? Problems at work because of the above symptoms Medicines and therapy can help with many of the symptoms. They can help you better function each day and improve your quality of life. These medicines take 2 to 4 weeks to start working and 6 to 8 weeks to take full effect. Because schizophrenia is complex and severe, treatment is also complex. It can include ongoing psychotherapy, community resource networking, and rehab programs such as occupational training. It's common to feel that you are not ill and that you don't need treatment. It's important to accept the support of friends and family in continuing to take your medicine, continue with psychotherapy, and us suggested community resources. Home care ??? Ongoing care and support help manage this disease. Find a healthcare provider and therapist who meet your needs. Seek help when you feel like your symptoms are getting worse or when family and friends ask you to seek help. ??? Tell each of your healthcare providers about all of the prescription medicines, vsmv-xki-ojzvdwl medicines, vitamins, and supplements you take. Certain supplements interact with medicines and can cause dangerous side effects. Ask your pharmacist when you have questions about medicine interactions. If you drink alcohol, let your provider know when and how much you use. ??? Be sure to take all of your medicine as directed and get regular blood work to check your medicine level and your overall health. Take the medicines and get the follow-up lab work as prescribed,??even if you think you don???t need it. Never change your medicine dose or stop taking your medicines unless you check with your provider. Never share your medicine or use someone else's me dicine. ??? Seek support from trusted??friends or family by talking about your feelings and thoughts. Ask them to help you recognize behavior changes early so you can get help. If needed, your healthcare provider can adjust your medicines. ??? If you are having trouble managing workplace issues, orcaring for yourself because of your schizophrenia, contact your local Americans with Disabilities (A DA) office to see if they can help. The U.[place]. Department of Justice operates a toll-free ADA information line at: 949.144.7888 (voice) or 233-249-4491 (TTY). You can also check the ADA website at www.ada.gov. They can help you find a local office. ?? Follow-up care Follow up with your healthcare provider or therapist, or as advised. ?? Call 988 Call 988 if you: ??? Have suicidal thoughts, a suicide plan, and the means to carry out the plan ??? Have trouble breathing ??? Are very confused ??? Are very drowsy or have trouble awakening ??? Feel faint or lose consciousness ??? Have rapid heart rate, very low heart rate, or a new irregular heart rate ??? Have a seizure When you call or text 988, you will be connected to trained crisis counselors. An online chat option is also available. Lancope is free and available 18/04. The 988 counselors will work closely with 911 to get you the care you need. ?? When to seek medical advice Call your healthcare provider right away if any of these occur: ??? Your??symptoms get worse ??? Family or friends express concern over your behavior and ask you to seek help ??? Feeling out of control or that you are being controlled by others ??? Feeling like you want to harm yourself or another ??? Unable to care for yourself ??? Hallucinations get worse ??? Delusions or paranoia get worse ???Hearing voices that are telling you to harm yourself or others ??? Depression or anxiety get worse ??? New symptoms ?? Last Reviewed Date: 2021 ?? 6456-8024 [employer] (MM). All rights reserved. This information is not intended as a substitute for professional medical care. Always follow your healthcare professional's instructions. ?? Patient Care team information Care Team Personnel Name: Dean Rivas RN Position: [facility] RN Member Role: Primary Care Nurse Name: Fatoumata Stokes DO Position: [facility] Physician - Primary Care Member Role: PCP Address: Address: [address] [place] [address] Adult [facility] [place] [address]- Name: Britt Polanco RN Position: [facility] RN Member Role: Primary Care Nurse Name: Awilda Grider RN Position: [facility] RN Member Role: Primary Care Nurse Name: Chintan Leach DO Position: [facility] Renal MD Member Role: [employer]etime Consulting Physician Address: Address: [address] [place] [address] [address] [facility] [place] [address]- Name: Chandler Ye RN Position: [facility] RN Member Role: Primary Care Nurse Name: Apurva Ji RN Position: [facility] MARISABEL RN W/OE and Tasks Member Role: Primary Care Nurse Name: Cordelia Matias RN Position: [facility] AMB Nurse Member Role: Primary Care Nurse Name: Radha Gutierrez Position: [facility] Outreach Member Role: Primary Care Nurse Name: Keenan Vincent RN Position: [facility] SN RN Member Role: Primary Care Nurse Name: Sasha Patricio RN Position: [facility] RN Member Role: Primary Care Nurse Name: Virgie Angel Position: [facility] RN Member Role: Primary Care Nurse Name: Azeb Gusman RN Position: [facility] RN Member Role: Primary Care Nurse Name: Meredith Martinez RN Position: [facility] RN Member Role: Primary Care Nurse Name: Anika Gotti RN Position: [facility] RN Member Role: Primary Care Nurse Name: Justina Walker RN Position: [facility] RN Member Role: Primary Care Nurse Name: Kenia Zuniga RN Position: [facility] PCO w/OE and EZ Script Member Role: Primary Care Nurse Name: Ivone Hidalgo RN Position: [facility] RN Member Role: Primary Care Nurse Name: Mazin Penn MD Position: [facility] Physician - Behavioral Health Member Role: [employer]etime Consulting Physician Address: Address: [address] [place] [address]- Name: *[facility], ED Attending Position: [facility] ED Attendings Patient Name: Bailey Mandel Position: [facility] ED TA [facility] Member Role: Vp Compliance Name: Bisi Schultz RN Position: [facility] ED RN W/OE and Tasks Member Role: Patient Care Provider Name: Janusz Ferris MD Position: [facility] ED Medicine MD Member Role: Admitting Physician Address: Address: [address] [place] [address] [place] [address]- Care Team Related Persons Name: DORITA HERNANDEZ Address: [address] [address] Name: STEW PECK Address: home [address] [place] [id number] Name: LOUIE SHIELD RUNNERLISA SHIELD RUNNER Address: [address] [address]
--- OUTSIDE RECORDS SUMMARY | 2023-08-16 12:32 | XMS_ITS | Continuity of Care Document ---
Author Name Unknown Organization [facility] Cynthia pritchett's [facility] Address [address], [address]t [place] [address]- Care Team Providers Care English And Reading Instructor Name Role Phone Fatoumata Stokes DO Primary Care Physician Encounter [facility] Date(s): [facility]17[facility] [address], 4th Floor [place], [place] [address] Attending Physician: Ashley Hallman MD Referring Physician: Basia Rojas Allergies, Adverse Reactions, Alerts Substance Reaction Severity [...] 09/29/22 9:09:00 EST, Route to Pharmacy Electronically, [id number], 163, cm, 09/14/22 8:12:00 EST, Height, 87.9, kg, 09/09/22 12:06:00 EST, Dry Weight Start Date: 09/29/22 Status: Ordered benztropine 1 mg oral tablet 1 mg, 1, tablet, By Mouth, 2 times a day, # 60 tablet, Refills 0, Tot. Refills 0, Maintenance, 09/14/22 13:02:00 EST, Route to Pharmacy Electronically, [facility], 163, cm, 09/14/22 8:12:00 EST, Height, 87.9, kg, 09/09/22 12:06:00 EST, D... Start Date: 09/14/22 Stop Date: 10/14/22 Status: Ordered cetirizine 10 mg oral tablet 1 tablet, By Mouth, Daily, # 30 tablet, 0 Refills, Maintenance, 09/14/22 13:03:00 EST, [facility], 163, cm, 09/14/22 8:12:00 EST, Height, 87.9, kg, 09/09/22 12:06:00 EST, Dry Weight Start Date: 09/14/22 Status: Ordered docusate sodium 100 mg oral capsule 1 capsule, By Mouth, 2 times a day, # 60 capsule, 11 Refills, 10/06/22 16:34:00 EST, [facility]/pharmacy #[id number], 163, cm, 09/14/22 8:12:00 EST, Height, 87.9, kg, 09/09/22 12:06:00 EST, Dry Weight Start Date: 10/06/22 Status: Ordered estradiol 0.1 mg/24 hours twice weekly transdermal film, extended release See Instructions, apply 1 patch Topically every tuesday and , # 24 patch, 0 Refills, Maintenance, 11/24/22 12:36:00 EST, [facility]/pharmacy #[id number], Partial fill upon patient request if the prescription is for a schedule II opioid drug., 162, cm, 11/23... Start Date: 11/24/22 Status: Ordered Estradiol Patch 0.1 mg/24 hours twice weekly transdermal film, extended release See Instructions, APPLY 1 PATCH TOPICALLY EVERY TUESDAY & TUESDAY, # 8 patch, 0 Refills, 09/14/22 13:03:00 EST, [facility], APPLY 1 PATCH TOPICALLY EVERY TUESDAY & TUESDAY, 163,cm, 09/14/22 8:12:00 EST, Height, 87.9, kg, 09/09/22 12:06:... Start Date: 09/14/22 Status: Ordered ferrous sulfate 325 mg oral enteric coated tablet 1, tablet, By Mouth, Every other day, may take with food to minimize abdominal discomfort, # 15 tablet, Refills 0, Tot. Refills 0, 09/14/22 13:04:00 EST, Route to Pharmacy Electronically, [facility], 163, cm, 09/14/22 8:12:00 [...] 0 Refills, Maintenance, 09/14/22 13:05:00 EST, Tablet, [facility], Partial fill upon patient [...] 12:36:00 EST, Route to Pharmacy Electronically, [facility]/pharmacy #[id number], Partial fill upon patient request if the prescriptio... Start Date: 10/16/22 Stop Date: 11/13/22 Status: Ordered omeprazole 20 mg oral enteric coated capsule 1 capsule, By Mouth, Daily, # 90 capsule, 0 Refills, [id number], 163, cm, 09/24/21 16:23:00 EST, Height, 112, kg, 10/14/20 10:13:00 EST, Dry Weight Start Date: 03/04/22 Status: Ordered perphenazine 16 mg oral tablet 16 mg, 1, tablet, By Mouth, 2 times a day, take with 4mg tablet for a total dose of 20 mg 2 times daily, # 60 tablet, Refills 0, Tot. Refills 0, Maintenance, 09/14/22 13:06:00 EST, Route to Pharmacy Electronically, [facility], Partial fi... Start Date: 09/14/22 Status: Ordered perphenazine 4 mg oral tablet 4 mg, 1, tablet, By Mouth, 2 times a day, take with 16 mg tablet for a total dose of 20 mg 2 times daily, # 60 tablet, Refills 0, Tot. Refills 0, Maintenance, 09/14/22 13:06:00 EST, Route to PharmacyElectronically, [facility], Partial f... Start Date: 09/14/22 Status: Ordered perphenazine 8 mg oral tablet 8 mg, 1, tablet, By Mouth, Daily, at 12 PM, # 30 tablet, Refills 0, Tot. Refills 0, Maintenance, 09/14/22 13:06:00 EST, Route to Pharmacy Electronically, [facility], Partial fill upon patient request if the prescription is for a schedule... Start Date: 09/14/22 Status: Ordered Senna 8.6 mg oral tablet 8.6 mg, 1, tablet, By Mouth, Daily at bedtime, # 30 tablet, Refills 0, Tot. Refills 0, Maintenance,09/14/22 13:06:00 EST, Route to Pharmacy Electronically, [facility] 3 Tablet, Partial fill upon patient request if the prescription is for... Start Date: 09/14/22 Status: Ordered simethicone 125 mg oral capsule See Instructions, TAKE 1 CAPSULE BY MOUTH THREE TIMES A DAY AFTER MEALS AND AT BEDTIME NEEDED, #48 capsule, 11 Refills, Maintenance, 09/24/22 18:10:00 EST, [id number], 163, cm, 09/14/22 8:12:00 EST, Height, 87.9, kg, 09/09/22 12:06:00 EST, Start Date: 09/24/22 Status: Ordered ZyPREXA 2.5 mg oral tablet 2.5 mg, 1, tablet, By Mouth, Daily at bedtime, # 14 tablet, Refills 0, Tot. Refills 0, Maintenance,10/16/22 11:51:00 EST, Route to Pharmacy Electronically, [facility]/pharmacy #[id number], Partial fill upon patient request if the [...] Display: History and Physical Hospital Authored Date: [id number] [place], [place] PSYCHIATRIC HISTORY ASSESS EXAM NAME: LORETTA CELESTIN : [birth year] MR#: [id number] PCP: ADMITTED: 12/20/15 DATE OF SERVICE: 12/20/15 HPI - Hosp Psych H P Chief Complaint Pt was sent from [facility] ER here for hallunication History of Present Illness 24 yo AA Female with known schizophrenia was seen at [facility] ER for hallucination. Apparently pt has been lived in [facility] and sent to [facility] for acute exacerbation [...] QDAY Haloperidol* (Haldol*) 5 MG PO BID [place] Carbonate SR* (Lithobid*) 300 MG PO QDAY liTHIum Carbonate SR* ([place] Carbonate SR*) 450 MG PO 4PM Discontinued Reported Medications Citalopram* (CeleXA*) 40 MG PO QDAY Benztropine* 0.5 MG PO BID buPROPion SR* 150 MG PO [id number] Trazodone* (Desyrel*) 100 MG PO HS RisperiDONE* [...] 324 MG QDAY 12/20 0900 CKD PO [place] Carbonate 300 MG QDAY 12/20 0900 AC PO Polyethylene Glycol 17 GM QDAY 12/20 0900 CKD PO Benztropine Mesylate 1 MG 0900,1700 12/19 1700 AC PO Docusate Sodium 100 MG 0900,1700 12/19 1700 AC PO Haloperidol 5 MG 0900,1700 12/19 1700 AC PO [place] Carbonate 450 MG PM 12/19 1700 AC [...] fullly ambulartory Care Level Complexity of Care [id number] Comprehensive history, comprehensive examination, medical decision making of low complexity, at least 20 minutes at the bedside, patient's floor/ unit. ESigned by: YAS GARZA MD Date:12/21/15 Time:1633 / NOT FOR REDISCLOSURE WITHOUT PATIENT'S INFORMED CONSENT Admission evaluation note * Event Display: Admit Notes Authored Date: [id number] [place], [place] PSYCHIATRIC ADMISSION NOTE NAME: LORETTA CELESTIN : [birth year] HOSPITAL #: [id number] MR #: [id number] CHART LOC: PCP: DICTATING: MARIA R Robin MD DATE OF ADMISSION: 12/20/15 DATE OF SERVICE: 12/21/15 CHIEF COMPLAINT: This 23-year-old woman was admitted to [facility] on 12/20/15 on a Conditional [...] year NAME: LORETTA CELESTIN : [birth year] HOSP#: [id number] MR#: [id number] CHART LOC: PCP: DICTATING: MARIA R Robin MD PSYCHIATRIC ADMISSION NOTE CONTINUED: unknown. TREATMENT PLAN: Resume outpatient medications, physical exam, collateral contact with community caregivers and social network, safety plan, aftercare plan and observe. 927 T: DD:[id number] TD:0745 DT:[id number] TT:0924 JOB:[id number] TORIE MARIA R Robin MD ESigned by: Date:12/22/15 Time:642 NOT FOR REDISCLOSURE WITHOUT PATIENT'S INFORMED CONSENT Patient Care team information Care Team Personnel Name: Dean Rivas RN Position: [facility] RN Member Role: Primary Care Nurse Name: Fatoumata Stokes DO Position: [facility] Physician - Primary Care Member Role: PCP Address: Address: [address] [place] [address] Adult & Pediatric [place] [address]- Name: Britt Polanco RN Position: [facility] RN Member Role: Primary Care Nurse Name: Anyi Avendano RN Position: [facility] RN Supv Member Role: Primary Care Nurse Name: Awilda Grider RN Position: [facility] RN Member Role: Primary Care Nurse Name: Chintan Leach DO Position: [facility] Renal MD Member Role: Lifetime Consulting Physician Address: Address: [address] [place], [place] [address] [place] [address]- Name: Chandler Ye RN Position: [facility] RN Member Role: Primary Care Nurse Name: Apurva Ji RN Position: [facility] ED RN W/OE and Tasks Member Role: Primary Care Nurse Name: Cordelia Matias RN Position: [facility] AMB Nurse Member Role: Primary Care Nurse Name: Radha Gutierrez Position: [facility] Outreach Member Role: Primary Care Nurse Name: Keenan Vincent RN Position: [facility] RN Member Role: Primary Care Nurse Name: Sasha Patricio RN Position: [facility] RN Member Role: Primary Care Nurse Name: Virgie Angel Position: [facility] RN Member Role: Primary Care Nurse Name: Azeb Gusman RN Position: [facility] RN Member Role: Primary Care Nurse Name: Meredith Martinez RN Position: [facility] RN Member Role: Primary Care Nurse Name: Anika Gotti RN Position: [facility] RN Supv Member Role: Primary Care Nurse Name: Justina Walker RN Position: [facility] RN Member Role: Primary Care Nurse Name: Kenia Zuniga RN Position: [facility] PCO w/OE and EZ Script Member Role: Primary Care Nurse Name: Ivone Hidalgo RN Position: [facility] RN Member Role: Primary Care Nurse Name: Mazin Penn MD Position: [facility] Physician - Behavioral Health Member Role: Lifetime Consulting Physician Address: Address: [address] [place] [address]- [place] Care Team Related Persons Name: DORITA HERNANDEZ Address: home [address] [place] [address] Name: STEW PECK Address: home [address] [place] [address] Name: LOUIE PIPELINE EXECUTIVEPETER Address: home [address] [place] [address]
--- OUTSIDE RECORDS SUMMARY | 2023-08-16 12:32 | XMS_ITS | Continuity of Care Document ---
Author Name Unknown Organization [facility] Address [address] [place] [address]- Care Team Providers Care Ore Mixer Name Role Phone Fatoumata Stokes DO Primary Care Physician Encounter [facility] Date(s): 07/09/22 - 08/08/22 [facility] [address] [place], [place] [address] Allergies, Adverse Reactions, Alerts Substance Reaction [...] 05/28/21 7:42:00 EDT, Route to Pharmacy Electronically, [facility]/pharmacy #[id number], 164, cm,04/07/21 15:35:00 EDT, Height, 112, kg, 10/14/20 10... Start Date: 05/28/21 Status: Ordered benztropine 1 mg oral tablet 1 mg, 1, tablet, By Mouth, 2 times a day, # 60 tablet, Refills 0, Tot. Refills 0, Maintenance, 01/01/20 16:15:00 EDT, Route to Pharmacy Electronically, [facility]/pharmacy #[id number], 163, cm, 01/01/20 14:39:00 EDT, Height, 86.5, kg, 12/19/19 19:14:00 EDT, Dry We... Start Date: 01/01/20 Stop Date: 01/31/20 Status: Ordered cetirizine 10 mg oral tablet 1 tablet, By Mouth, Daily, # 30 tablet, 2 Refills, Maintenance, 07/12/22 10:38:00 EDT, [facility], 162, cm, 06/18/22 11:49:00 EDT, Height, 100, kg, 06/16/22 6:50:00 EDT, Dry Weight Start Date: 07/12/22 Status: Ordered docusate sodium 100 mg oral capsule 1 capsule, By Mouth, 2 times a day, # 60 capsule, 5 Refills, [facility] 88[facility], 163, cm, 09/24/21 16:23:00 EST, Height, 112, kg, 10/14/20 10:13:00 EST, Dry Weight Start Date: 02/03/22 Status: Ordered Estradiol Patch 0.1 mg/24 hours twice weekly transdermal film, extended release See Instructions, APPLY 1 PATCH TOPICALLY EVERY TUESDAY & TUESDAY, # 24 patch, 4 Refills, [facility] 220[facility], 84, APPLY 1 PATCH TOPICALLY EVERY TUESDAY [...] 0 Refills, Maintenance, 01/01/20 16:16:00 EDT, Capsule, [facility]/pharmacy #[id number], 163, cm, 01/01/20 [...] Mouth, Daily, # 90 capsule, 0 Refills, [facility] 29834, 163, cm, 09/24/21 16:23:00 EST, Height, 112, [...] AT BEDTIME NEEDED, #48 capsule, 11 Refills, [facility], 163, cm, 09/24/21 16:23:00 EST, Height, 112, [...] Display: History and Physical Hospital Authored Date: [id number] [place], [place] PSYCHIATRIC HISTORY ASSESS EXAM NAME: LORETTA CELESTIN : [birth year] MR#: [id number] PCP: ADMITTED: 12/20/15 DATE OF SERVICE: 12/20/15 HPI - Hosp Psych H P Chief Complaint Pt was sent [place] [facility] [place] for hallunication History of Present Illness 24 yo AA Female with known schizophrenia was seen at [facility] ER for hallucination. Apparently pt has been lived in detention and sent to [facility] for acute exacerbation of her underline schizophrenia. [...] QDAY Haloperidol* (Haldol*) 5 MG PO BID [place] Carbonate SR* (Lithobid*) 300 MG PO QDAY liTHIum Carbonate SR* ([place] Carbonate SR*) 450 MG PO 4PM Discontinued Reported Medications Citalopram* (CeleXA*) 40 MG PO QDAY Benztropine* 0.5 MG PO BID buPROPion SR* 150 MG PO [id number] Trazodone* (Desyrel*) 100 MG PO HS RisperiDONE* [...] 324 MG QDAY 12/20 0900 CKD PO [place] Carbonate 300 MG QDAY 12/20 0900 AC PO Polyethylene Glycol 17 GM QDAY 12/20 0900 CKD PO Benztropine Mesylate 1 MG 0900,1700 12/19 1700 AC PO Docusate Sodium 100 MG 0900,1700 12/19 1700 AC PO Haloperidol 5 MG 0900,1700 12/19 1700 AC PO [place] Carbonate 450 MG PM 12/19 1700 AC [...] fullly ambulartory Care Level Complexity of Care [id number] Comprehensive history, comprehensive examination, medical decision making of low complexity, at least 20 minutes at the bedside, patient's floor/ unit. ESigned by: YAS GARZA MD Date:12/21/15 Time:1633 / NOT FOR REDISCLOSURE WITHOUT PATIENT'S INFORMED CONSENT Admission evaluation note * Event Display: Admit Notes Authored Date: [id number] [place], [place] PSYCHIATRIC ADMISSION NOTE NAME: LORETTA CELESTIN : [birth year] HOSPITAL #: [id number] MR #: [id number] CHART LOC: PCP: DICTATING: MARIA R Robin MD DATE OF ADMISSION: 12/20/15 DATE OF SERVICE: 12/21/15 CHIEF COMPLAINT: This 23-year-old woman was admitted to [facility] on 12/20/15 on a Conditional Voluntary application because of suicidal ideation. HISTORY OF PRESENT ILLNESS: The patient has been treated for schizoaffective disorder depressed type, posttraumatic stress disorder, intellectual disability and alcohol syndrome with multiple hospitalizations for self-harming behavior and suicidal ideation. She presented to Crisis Services from her detention reporting that she was having urges to [...] how they had evolved. Staff at the detention where she lives reported her as unusually [...] HISTORY: The patient is living in a detention. Came to [place] with her grandmother in 2013, was very [...] year NAME: LORETTA CELESTIN : [birth year] HOSP#: [id number] MR#: [id number] CHART LOC: PCP: DICTATING: MARIA R Robin MD PSYCHIATRIC ADMISSION NOTE CONTINUED: unknown. TREATMENT PLAN: Resume outpatient medications, physical exam, collateral contact with community caregivers and social network, safety plan, aftercare plan and observe. 927 T:sn DD:[id number] TD:0745 DT:20151221 TT:0924 JOB:[id number] MICHELLE/SHANNON MARIA R Robin MD ESigned by: Date:12/22/15 Time:642 NOT FOR REDISCLOSURE WITHOUT PATIENT'S INFORMED CONSENT Patient Care team information Care Team Personnel Name: Dean Rivas RN Position: [facility] RN Member Role: Primary Care Nurse Name: Fatoumata Stokes DO Position: [facility] Primary Care Physician Member Role: PCP Address: Address: [address] [place] [address] Adult & [place] [address]- Name: Britt Polanco RN Position: [facility] RN Member Role: Primary Care Nurse Name: Angela Aceves RN Position: [facility] RN Member Role: Primary Care Nurse Name: Anyi Avendano RN Position: [facility] RN Supv Member Role: Primary Care Nurse Name: Chintan Leach DO Position: [facility] Renal MD Member Role: Lifetime Consulting Physician Address: Address: [address] [place], [place] [address]E [facility] [place] [address]- Name: Chandler Ye RN Position: [facility] RN Member Role: Primary Care Nurse Name: Apurva Ji RN Position: [facility] ED RN W/OE and Tasks Member Role: Primary Care Nurse Name: Cordelia Matias RN Position: [facility] AMB Nurse Member Role: Primary Care Nurse Name: Radha Gutierrez Position: [facility] Outreach Member Role: Primary Care Nurse Name: Keenan Vincent RN Position: [facility] RN Member Role: Primary Care Nurse Name: Virgie Angel Position: [facility] RN Member Role: Primary Care Nurse Name: Darcie Valero RN Position: [facility] RN Member Role: Primary Care Nurse Name: Umesh Pearson RN Position: [facility] RN Member Role: Primary Care Nurse Name: Azeb Gusman RN Position: [facility] RN Member Role: Primary Care Nurse Name: Meredith Martinez RN Position: [facility] RN Member Role: Primary Care Nurse Name: Kennedi Roca RN Position: [facility] RN Member Role: Primary Care Nurse Name: Justina Walker RN Position: [facility] RN Member Role: Primary Care Nurse Name: Kenia Zuniga RN Position: [facility] PCO w/OE and EZ Script Member Role: Primary Care Nurse Name: Mazin Penn MD Position: [facility] Psychiatry MD Member Role: Lifetime Consulting Physician Address: Address: [address] [place] [address]- Care Team Related Persons Name: STEW PECK Address: [address] [place] [address] Name: ARELY VASQUEZ STAFF Address: [address] [place] [address] Name: ANYA DON Address: [address] [place] [address]
--- OUTSIDE RECORDS SUMMARY | 2023-08-16 12:32 | XMS_ITS | Continuity of Care Document ---
Author Name Unknown Organization [facility] Address [address] [place] [address]- Care Team Providers Care Manager Of International Name Role Phone Fatoumata Stokes DO Primary Care Physician ( [phone] Encounter [facility] Date(s): 11/23/22 - 11/30/22 [facility] [address] [place], [place] [address] Encounter Diagnosis Leg pain(Discharge Diagnosis) - 11/23/22 Schizoaffective schizophrenia(Discharge Diagnosis) - 11/23/22 Attending Physician: Melissa CULLET TRUCKER, Wendy Allergies, Adverse Reactions, Alerts Substance Reaction [...] 09/29/22 9:09:00 EST, Route to Pharmacy Electronically, [id number], 163, cm, 09/14/22 8:12:00 EST, Height, 87.9, kg, 09/09/22 12:06:00 EST, Dry Weight Start Date: 09/29/22 Status: Ordered benztropine 1 mg oral tablet 1 mg, 1, tablet, By Mouth, 2 times a day, # 60 tablet, Refills 0, Tot. Refills 0, Maintenance, 09/14/22 13:02:00 EST, Route to Pharmacy Electronically, [facility], 163, cm, 09/14/22 8:12:00 EST, Height, 87.9, kg, 09/09/22 12:06:00 EST, D... Start Date: 09/14/22 Stop Date: 10/14/22 Status: Ordered cetirizine 10 mg oral tablet 1 tablet, By Mouth, Daily, # 30 tablet, 0 Refills, Maintenance, 09/14/22 13:03:00 EST, [facility], 163, cm, 09/14/22 8:12:00 EST, Height, 87.9, kg, 09/09/22 12:06:00 EST, Dry Weight Start Date: 09/14/22 Status: Ordered docusate sodium 100 mg oral capsule 1 capsule, By Mouth, 2 times a day, # 60 capsule, 11 Refills, 10/06/22 16:34:00 EST, [facility]/pharmacy #[id number], 163, cm, 09/14/22 8:12:00 EST, Height, 87.9, kg, 09/09/22 12:06:00 EST, Dry Weight Start Date: 10/06/22 Status: Ordered estradiol 0.1 mg/24 hours twice weekly transdermal film, extended release See Instructions, apply 1 patch Topically every tuesday and , # 24 patch, 0 Refills, Maintenance, 11/24/22 12:36:00 EST, [facility]/pharmacy #[id number], Partial fill upon patient request if the prescription is for a schedule II opioid drug., 162, cm, 11/23... Start Date: 11/24/22 Status: Ordered Estradiol Patch 0.1 mg/24 hours twice weekly transdermal film, extended release See Instructions, APPLY 1 PATCH TOPICALLY EVERY TUESDAY & TUESDAY, # 8 patch, 0 Refills, 09/14/22 13:03:00 EST, [facility], APPLY 1 PATCH TOPICALLY EVERY TUESDAY & TUESDAY, 163,cm, 09/14/22 8:12:00 EST, Height, 87.9, kg, 09/09/22 12:06:... Start Date: 09/14/22 Status: Ordered ferrous sulfate 325 mg oral enteric coated tablet 1, tablet, By Mouth, Every other day, may take with food to minimize abdominal discomfort, # 15 tablet, Refills 0, Tot. Refills 0, 09/14/22 13:04:00 EST, Route to Pharmacy Electronically, [facility], 163, cm, 09/14/22 8:12:00 [...] 0 Refills, Maintenance, 09/14/22 13:05:00 EST, Tablet, [facility], Partial fill upon patient request if the prescription is for a schedule II opioid drug., 163, cm, 09/14/22 8:12:0... Start Date: 09/14/22 Status: Ordered medroxyPROGESTERone 150 mg/mL intramuscular suspension 1 mL, Intramuscular, Every 3 months, # 1 mL, 3 Refills, Soft Stop, 03/13/21 13:05:00 EDT, [facility]/pharmacy #[id number], 164, cm, 03/13/21 9:51:00 EDT, Height, 112, kg, 10/14/20 10:13:00 EST, Dry Weight Start Date: 03/13/21 Status: Ordered olanzapine 2.5 mg oral tablet 2.5 mg, 1, tablet, By Mouth, Daily, PRN, Agitation/Psychosis, # 14 tablet, Refills 1, Tot. Refills 1, Maintenance, Other, 10/16/22 12:36:00 EST, Route to Pharmacy Electronically, [facility]/pharmacy #[id number], Partial fill upon patient request if the prescriptio... Start Date: 10/16/22 Stop Date: 11/13/22 Status: Ordered omeprazole 20 mg oral enteric coated capsule 1 capsule, By Mouth, Daily, # 90 capsule, 0 Refills, [id number], 163, cm, 09/24/21 16:23:00 EST, Height, 112, kg, 10/14/20 10:13:00 EST, Dry Weight Start Date: 03/04/22 Status: Ordered perphenazine 16 mg oral tablet 16 mg, 1, tablet, By Mouth, 2 times a day, take with 4mg tablet for a total dose of 20 mg 2 times daily, # 60 tablet, Refills 0, Tot. Refills 0, Maintenance, 09/14/22 13:06:00 EST, Route to Pharmacy Electronically, [facility], Partial fi... Start Date: 09/14/22 Status: Ordered perphenazine 4 mg oral tablet 4 mg, 1, tablet, By Mouth, 2 times a day, take with 16 mg tablet for a total dose of 20 mg 2 times daily, # 60 tablet, Refills 0, Tot. Refills 0, Maintenance, 09/14/22 13:06:00 EST, Route to PharmacyElectronically, [facility], Partial f... Start Date: 09/14/22 Status: Ordered perphenazine 8 mg oral tablet 8 mg, 1, tablet, By Mouth, Daily, at 12 PM, # 30 tablet, Refills 0, Tot. Refills 0, Maintenance, 09/14/22 13:06:00 EST, Route to Pharmacy Electronically, [facility], Partial fill upon patient request if the prescription is for a schedule... Start Date: 09/14/22 Status: Ordered progesterone 200 mg oral capsule 1 capsule = 200 mg, By Mouth, Daily, for 12 days, To take on the first twelve days of each month., # 12 capsule, 3 Refills, Acute 01/11/23 11:56:00 EDT, 11/24/22 11:56:00 EST, Capsule, [facility]/pharmacy #[id number], Partial fill upon patient request if the presc... Start Date: 11/24/22 Stop Date: 01/11/23 Status: Ordered Senna 8.6 mg oral tablet 8.6 mg, 1, tablet, By Mouth, Daily at bedtime, # 30 tablet, Refills 0, Tot. Refills 0, Maintenance,09/14/22 13:06:00 EST, Route to Pharmacy Electronically, [facility] Tablet, Partial fill upon patient request if the prescription is for... Start Date: 09/14/22 Status: Ordered simethicone 125 mg oral capsule See Instructions, TAKE 1 CAPSULE BY MOUTH THREE TIMES A DAY AFTER MEALS AND AT BEDTIME NEEDED, #48 capsule, 11 Refills, Maintenance, 09/24/22 18:10:00 EST, [id number], 163, cm, 09/14/22 8:12:00 EST, Height, 87.9, kg, 09/09/22 12:06:00 EST, Start Date: 09/24/22 Status: Ordered ZyPREXA 2.5 mg oral tablet 2.5 mg, 1, tablet, By Mouth, Daily at bedtime, # 14 tablet, Refills 0, Tot. Refills 0, Maintenance,10/16/22 11:51:00 EST, Route to Pharmacy Electronically, [facility]/pharmacy #[id number], Partial fill upon patient request if the [...] Effective Dates Health Status Clinical Service Informant Leg pain Discharge Diagnosis 11/23/22 Schizoaffective schizophrenia Discharge Diagnosis 11/23/22 Vital Signs Most recent to oldest [Reference Range]: 1 2 3 Height 162 cm (11/23/22 11:55 AM) 162 cm (11/23/22 11:34 AM) 162 cm (11/23/22 11:32 AM) Weight 90 kg (11/23/22 11:32 AM) Oxygen Saturation [94-100 %] 98 % (11/23/22 11:32 AM) Pulse Rate [55-90 bpm] 90 bpm (11/23/22 11:32 AM) Body Mass Index [18.5-24.99 kg/m2] 34.29 kg/m2 *>HHI* (11/23/22 11:32 AM) Blood Pressure [90-138/55-84 mm Hg] 128/72mm Hg (11/23/22 11:55 AM) 148/98mm Hg *H* (11/23/22 11:34 AM) 146/98mm Hg *H* (11/23/22 11:32 AM) Mode of Delivery (Oxygen) Room air (11/23/22 11:32 AM) Blood pressure sites Arm, left (11/23/22 11:55 AM) Arm, right (11/23/22 11:34 AM) Arm, left (11/23/22 11:32 AM) Weight Obtained Via Standing scale (11/23/22 11:32 AM) Social History Social History Type Response Tobacco Use: 4 or less cigar ettes(less than 1/4 pack)/day in last 30 days. Sex History and physical note * Event Display: History and Physical Hospital Authored Date: [id number] [place], [place] PSYCHIATRIC HISTORY ASSESS EXAM NAME: LORETTA CELESTIN : [birth year] MR#: [id number] PCP: ADMITTED: 12/20/15 DATE OF SERVICE: 12/20/15 HPI - Hosp Psych H P Chief Complaint Pt was sent from [facility] here for hallunication History of Present Illness 24 yo AA Female with known schizophrenia was seen at [facility] for halluc[facility]. Apparently pt has been lived in [facility] and sent to [facility] [...] QDAY Haloperidol* (Haldol*) 5 MG PO BID Lindrith Carbonate SR* (Lithobid*) 300 MG PO QDAY liTHIum Carbonate SR* (Lindrith Carbonate SR*) 450 MG PO 4PM Discontinued Reported Medications Citalopram* (CeleXA*) 40 MG PO QDAY Benztropine* 0.5 MG PO BID buPROPion SR* 150 MG PO OTR024 Trazodone* (Desyrel*) 100 MG PO HS RisperiDONE* [...] 324 MG QDAY 12/20 0900 CKD PO Lindrith Carbonate 300 MG QDAY 12/20 0900 AC PO Polyethylene Glycol 17 GM QDAY 12/20 0900 CKD PO Benztropine Mesylate 1 MG 0900,1700 12/19 1700 AC PO Docusate Sodium 100 MG 0900,1700 12/19 1700 AC PO Haloperidol 5 MG 0900,0 12/19 1700 AC PO Lindrith Carbonate 450 MG PM 12/19 1700 AC [...] fullly ambulartory Care Level Complexity of Care [id number] Comprehensive history, comprehensive examination, medical decision making of low complexity, at least 20 minutes at the bedside, patient's floor/ unit. ESigned by: YAS GARZA MD Date:12/21/15 Time:1633 / NOT FOR REDISCLOSURE WITHOUT PATIENT'S INFORMED CONSENT Admission evaluation note * Event Display: Admit Notes Authored Date: [id number] [place], [place] PSYCHIATRIC ADMISSION NOTE NAME: LORETTA CELESTIN : 89 HOSPITAL #: [id number] MR #: [id number] CHART LOC: PCP: DICTATING: MARIA R Robin MD DATE OF ADMISSION: 12/20/15 DATE OF SERVICE: 12/21/15 CHIEF COMPLAINT: This 23-year-old woman was admitted to [facility] on 12/20/15 on a Conditional Voluntary [...] year NAME: LORETTA CELESTIN : [birth year] HOSP#: [id number] MR#: [id number] CHART LOC: PCP: DICTATING: MARIA R Robin MD PSYCHIATRIC ADMISSION NOTE CONTINUED: unknown. TREATMENT PLAN: Resume outpatient medications, physical exam, collateral contact with community caregivers and social network, safety plan, aftercare plan and observe. 927 T:sn DD:[id number] TD:0745 DT:[id number] TT:0924 JOB:[id number] MICHELLE/SHANNON MARIA R Robin MD ESigned by: Date:12/22/15 Time:0643 NOT FOR REDISCLOSURE WITHOUT PATIENT'S INFORMED CONSENT Note * Becca Garcia: PERFORM, SIGN, VERIFY Event Display: Patient Education/Instruction Authored Date: [id number] [facility] *[facility] Clinical Summary Name LORETTA CELESTIN Age 31 Years 1990 PCP [facility] Stokes [phone] Visit Date 11/23/2022 11:19:00 Additional Instructions: Scheduled Appointments?? Future Appointments ?*No??[facility] ?[address]??[place],??[place],??[address] ?Phone:??--?Fax:??-- ?Appt. Date:??01/13/2023?8:20 AM ?Scheduled Provider:??Fatoumata Stokes DO Follow-Up Instructions ?? Diagnosis Medications: Please continue your medications until treatment is completed or stopped by your provider. Discuss any questions related to medications with your provider. Medications to Continue Taking That Have Changed [id number], [address], [place] [phone], [phone] - Ibuprofen (ibuprofen 600 mg oral tablet) 1 tab(s) Oral every 8 hours as needed Pain , Moderate. Refills: 0. Next Dose: These medications were not printed or sent to your pharmacy - Ibuprofen (ibuprofen 800 mg oral tablet) 1 tab(s) Oral 3 times a day as needed. Next Dose: Medications to Continue with No [...] a day. Refills: 11. Next Dose: Estradiol (Estradiol Patch 0.1 mg/24 hours twice weekly transdermal film, extended release) APPLY 1PATCH TOPICALLY EVERY TUESDAY & TUESDAY. Refills: 0. Next Dose: Ferrous Sulfate (ferrous sulfate 325 mg oral enteric coated tablet) 1 tab(s) Oral every other day. may take with food to minimize abdominal discomfort. Refills: 0. Next Dose: Lindrith (lithium 300 mg oral tablet) 1 tab(s) [...] at 12 PM. Refills: 0. Next Dose: Senna (Senna 8.6 mg oral tablet) 1 tab(s) Oral Daily at Bedtime. Refills: 0. Next Dose: Simethicone (simethicone 125 mg oral capsule) TAKE 1 CAPSULE BY MOUTH THREE TIMES A DAY AFTER MEALSAND AT BEDTIME NEEDED. Refills: 11. Next Dose: Allergy Info:?? cloZAPine; Invega; paliperidone; Flagyl Medications Given This Visit Future Orders ?No future orders Vital Signs Height 162 cm Weight 90 kg BMI 34.29 kg/m2 Blood Pressure 128 mm Hg/72 mm Hg Temperature Pulse Rate 90 bpm Respiratory Rate 02 Sat Mode of Delivery 98 %/Room air You can now view a summary of your hospital visit from the comfort of your home through a free online portal called [employer]. [employer] is a website that allows you to securely view your medical information including discharge summary, medications and follow-up visits. ??You can alsosend a secure electronic message to your doctor???s office to request appointments, renew medications or just ask a question. You can enroll at [email or web address] or register during your next office [...] primary care provider, you may find a [facility] provider by calling [email or web address] at [phone]. For information about the plan of care [...] Team Personnel Name: Dean Rivas RN Position: [facility] RN Member Role: Primary Care Nurse Name: Fatoumata Stokes DO Position: [facility] Primary Care Physician Member Role: PCP Address: Address: [address] [place] [address] Adult & Pediatric Medicine [place], [place] [address] Name: Britt Polanco RN Position: S RN Member Role: Primary Care Nurse Name: Anyi Avendano RN Position: [facility] STEPHAN Supv Member Role: Primary Care Nurse Name: Awilda Grider RN Position: S RN Member Role: Primary Care Nurse Name: Chintan Leach DO Position: [facility] Renal MD Member Role: Lifetime Consulting Physician Address: Address: [address] [facility] [place] [place] [address]- Name: Chandler Ye RN Position: [facility] RN Member Role: Primary Care Nurse Name: Apurva Ji RN Position: [facility] ED RN W/OE and Tasks Member Role: Primary Care Nurse Name: Cordelia Matias RN Position: [facility] AMB Nurse Member Role: Primary Care Nurse Name: Radha Gutierrez Position: [facility] Outreach Member Role: Primary Care Nurse Name: Keenan Vincent RN Position: [facility] SN RN Member Role: Primary Care Nurse Name: Sasha Patricio RN Position: [facility] RN Member Role: Primary Care Nurse Name: Virgie Angel Position: [facility] RN Member Role: Primary Care Nurse Name: Azeb Gusman RN Position: [facility] RN Member Role: Primary Care Nurse Name: Meredith Martinez RN Position: [facility] RN Member Role: Primary Care Nurse Name: Anika Gotti RN Position: [facility] RN Supv Member Role: Primary Care Nurse Name: Kennedi Roca RN Position: [facility] RN Member Role: Primary Care Nurse Name: Justina Walker RN Position: [facility] RN Member Role: Primary Care Nurse Name: Kenia Zuniga RN Position: [facility] PCO w/OE and EZ Script Member Role: Primary Care Nurse Name: Ivone Hidalgo RN Position: [facility] RN Member Role: Primary Care Nurse Name: Mazin Penn MD Position: [facility] Psychiatry MD Member Role: Lifetime Consulting Physician Address: Address: [address] [place] [address]- Care Team Related Persons Name: STEW PECK Address: home [address] [place] [address] Name: NURSING HOMEPETER GILBERT Address: [address] [place] [address] Name: PRISCA WESTON Address: [address] [place] [address]
--- OUTSIDE RECORDS SUMMARY | 2023-08-16 12:32 | XMS_ITS | Continuity of Care Document ---
Author Name Unknown Organization [facility] Address [address] [place] [id number]- Care Team Providers Care Map Colorer Name Role Phone Fatoumata Stokes DO Primary Care Physician ( [phone] Encounter [facility] Date(s): 02/17/23 - 02/18/[address] [address]- Encounter Diagnosis Visual hallucinations(Final) - 02/17/23 Discharge Disposition: A-D/C Home Attending Physician: April Bryan MD Admitting Physician: April Bryan MD Referring Physician: Not on Staff, Referring MD Allergies, Adverse Reactions, Alerts Substance Reaction Severity Status Flagyl Active Haldol Active Invega Active cloZAPine Active paliperidone Active [...] 09/29/22 9:09:00 EST, Route to Pharmacy Electronically, [id number], 163, cm, 09/14/22 8:12:00 EST, Height, 87.9, kg, 09/09/22 12:06:00 EST, Dry Weight Start Date: 09/29/22 Status: Ordered benztropine 1 mg oral tablet 1 mg, 1, tablet, By Mouth, 2 times a day, # 60 tablet, Refills 0, Tot. Refills 0, Maintenance, 09/14/22 13:02:00 EST, Route to Pharmacy Electronically, [facility], 163, cm, 09/14/22 8:12:00 EST, Height, 87.9, kg, 09/09/22 12:06:00 EST, D... Start Date: 09/14/22 Stop Date: 10/14/22 Status: Ordered cetirizine 10 mg oral tablet 1 tablet, By Mouth, Daily, # 30 tablet, 0 Refills, Maintenance, 09/14/22 13:03:00 EST, [facility], 163, cm, 09/14/22 8:12:00 EST, Height, 87.9, kg, 09/09/22 12:06:00 EST, Dry Weight Start Date: 09/14/22 Status: Ordered docusate sodium 100 mg oral capsule 1 capsule, By Mouth, 2 times a day, # 60 capsule, 11 Refills, 10/06/22 16:34:00 EST, [facility]/pharmacy #[id number], 163, cm, 09/14/22 8:12:00 EST, Height, 87.9, kg, 09/09/22 12:06:00 EST, Dry Weight Start Date: 10/06/22 Status: Ordered estradiol 0.1 mg/24 hours twice weekly transdermal film, extended release See Instructions, apply 1 patch Topically every tuesday and , # 24 patch, 0 Refills, Maintenance, 11/24/22 12:36:00 EST, [facility]/pharmacy #[id number], Partial fill upon patient request if the prescription is for a schedule II opioid drug., 162, cm, 11/23... Start Date: 11/24/22 Status: Ordered Estradiol Patch 0.1 mg/24 hours twice weekly transdermal film, extended release See Instructions, APPLY 1 PATCH TOPICALLY EVERY TUESDAY & TUESDAY, # 8 patch, 0 Refills, 09/14/22 13:03:00 EST, [facility], APPLY 1 PATCH [...] 09/14/22 13:04:00 EST, Route to Pharmacy Electronically, [facility], 163, cm, 09/14/22 8:12:00 EST, Height... [...] 0 Refills, Maintenance, 09/14/22 13:05:00 EST, Tablet, [facility], Partial fill upon [...] 10/16/22 12:36:00 EST, Route to Pharmacy Electronically, [facility]/pharmacy #[id number], Partial fill upon patient request if the prescriptio... Start Date: 10/16/22 Stop Date: 11/13/22 Status: Ordered omeprazole 20 mg oral enteric coated capsule 1 capsule, By Mouth, Daily, # 90 capsule, 0 Refills, [id number], 163, cm, 09/24/21 16:23:00 EST, Height, 112, [...] Maintenance, 09/14/22 13:06:00 EST, Route to PharmacyElectronically, [facility], Partial f... Start Date: [...] Refills, Maintenance, 09/24/22 18:10:00 EST, [id number], 163, cm, 09/14/22 8:12:00 EST, Height, 87.9, kg, 09/09/22 12:06:00 EST, Start Date: 09/24/22 Status: Ordered ZyPREXA 2.5 mg oral tablet 2.5 mg, 1, tablet, By Mouth, Daily at bedtime, # 14 tablet, Refills 0, Tot. Refills 0, Maintenance,10/16/22 11:51:00 EST, Route to Pharmacy Electronically, [facility]/pharmacy #[id number], Partial fill upon patient request if the [...] 3 Oxygen Saturation [94-100 %] 100 % (02/18/23 9:30 AM) 100 % (02/18/23 1:09 AM) 100 % (02/17/23 8:31 PM) Pulse Rate [55-90 bpm] 83 bpm (02/18/23 9:30 AM) 70 bpm (02/18/23 1:09 AM) 73 bpm (02/17/23 8:31 PM) Blood Pressure [90-138/55-84 mm Hg] 140/89mm Hg *H* (02/18/23 9:30 AM) 138/72mm Hg (02/18/23 1:09 AM) 141/75mm Hg *H* (02/17/23 8:31 PM) Respiratory Rate [16-30 br/min] 17 br/min (02/18/23 9:30 AM) 16 br/min (02/18/23 1:09 AM) 16 br/min (02/17/23 8:31 PM) Temperature [96.8-100.4 DegF] 98.1 DegF (02/18/23 9:30 AM) 98.3 DegF (02/18/23 1:09 AM) 97.8 DegF (02/17/23 8:31 PM) Mode of Delivery (Oxygen) Room air (02/18/23 9:30 AM) Room air (02/18/23 1:09 AM) Room air (02/17/23 8:31 PM) Blood pressure sites Arm, left (02/18/23 9:30 AM) Arm, right (02/18/23 1:09 AM) Arm, left (02/17/23 8:31 PM) Temperature Route Oral (02/18/23 9:30 AM) Oral (02/18/23 1:09 AM) Oral (02/17/23 8:31 PM) Social History Social History Type Response Tobacco Use: 4 or less cigar ettes(less than 1/4 pack)/day in last 30 days. Sex History and physical note * Event Display: History and Physical Hospital Authored Date: [id number] [place], [place] PSYCHIATRIC HISTORY ASSESS EXAM NAME: LORETTA CELESTIN : [birth year] MR#: [id number] PCP: ADMITTED: 12/20/15 DATE OF SERVICE: 12/20/15 HPI - Hosp Psych H P Chief Complaint Pt was sent from [facility] ER here for hallunication History of Present Illness 24 yo AA Female with known schizophrenia was seen at [facility] ER for hallucination. Apparently pt has been lived in senior care and [facility] [...] QDAY Haloperidol* (Haldol*) 5 MG PO BID Mccalla Carbonate SR* (Lithobid*) 300 MG PO QDAY liTHIum Carbonate SR* (Mccalla Carbonate SR*) 450 MG PO 4PM Discontinued Reported Medications Citalopram* (CeleXA*) 40 MG PO QDAY Benztropine* 0.5 MG PO BID buPROPion SR* 150 MG PO [id number] Trazodone* (Desyrel*) 100 MG PO HS RisperiDONE* [...] 324 MG QDAY 12/20 0900 CKD PO Mccalla Carbonate 300 MG QDAY 12/20 0900 AC PO Polyethylene Glycol 17 GM QDAY 12/20 0900 CKD PO Benztropine Mesylate 1 MG 0900,1700 12/19 1700 AC PO Docusate Sodium 100 MG 0900,1700 12/19 1700 AC PO Haloperidol 5 MG 0900,1700 12/19 1700 AC PO Mccalla Carbonate 450 MG PM 12/19 1700 AC [...] fullly ambulartory Care Level Complexity of Care [id number] Comprehensive history, comprehensive examination, medical decision making of low complexity, at least 20 minutes at the bedside, patient's floor/ unit. ESigned by: YAS GARZA MD Date:12/21/15 Time:1633 / NOT FOR REDISCLOSURE WITHOUT PATIENT'S INFORMED CONSENT Admission evaluation note * Event Display: Admit Notes Authored Date: [id number] [place], [place] PSYCHIATRIC ADMISSION NOTE NAME: LORETTA CELESTIN : 89 HOSPITAL #: [id number] MR #: [id number] CHART LOC: PCP: DICTATING: MARIA R Robin MD DATE OF ADMISSION: 12/20/15 DATE OF SERVICE: 12/21/15 CHIEF COMPLAINT: This 23-year-old woman was admitted to [facility] at [facility] on 12/20/15 on a Conditional Voluntary application because of suicidal ideation. HISTORY OF PRESENT ILLNESS: The patient has been treated for schizoaffective disorder depressed type, posttraumatic stress disorder, intellectual disability and alcohol syndrome with multiple hospitalizations for self-harming behavior and suicidal ideation. She presented to Crisis Services from her senior care reporting that she was having urges to [...] they had evolved. Staff at the senior care where she lives reported her as unusually [...] The patient is living in a senior care. Came to [place] with her grandmother in [...] year NAME: LORETTA CELESTIN : 89 HOSP#: [id number] MR#: [id number] CHART LOC: PCP: DICTATING: MARIA R Robin MD PSYCHIATRIC ADMISSION NOTE CONTINUED: unknown. TREATMENT PLAN: Resume outpatient medications, physical exam, collateral contact with community caregivers and social network, safety plan, aftercare plan and observe. 927 T: DD:[id number] TD:0745 DT:[id number] TT:0924 JOB:[id number] MICHELLE/SHANNON MARIA R Robin MD ESigned by: Date:12/22/15 Time:0643 NOT FOR REDISCLOSURE WITHOUT PATIENT'S INFORMED CONSENT Patient Care team information Care Team Personnel Name: Dean Rivas RN Position: [facility] RN Member Role: Primary Care Nurse Name: Fatoumata Stokes DO Position: [facility] Physician - Primary Care Member Role: PCP Address: Address: [address] [place] [address] Adult & [place] [address]- Name: Britt Polanco RN Position: [facility] RN Member Role: Primary Care Nurse Name: Anyi Avendano RN Position: [facility] RN Supv Member Role: Primary Care Nurse Name: Awilda Grider RN Position: [facility] RN Member Role: Primary Care Nurse Name: Chintan Leach DO Position: [facility] Renal MD Member Role: Lifetime Consulting Physician Address: Address: [address] [place], [place] [address] [place] [address]- Name: Chandler Ye RN Position: [facility] RN Member Role: Primary Care Nurse Name: Apurva Ji RN Position: [facility] ED RN W/OE and Tasks Member Role: Primary Care Nurse Name: Cordelia Matias RN Position: [facility] AMB Nurse Member Role: Primary Care Nurse Name: Radha Gutierrez Position: [facility] Outreach Member Role: Primary Care Nurse Name: Keenan Vincent RN Position: [facility] SN RN Member Role: Primary Care Nurse Name: Sasha Patricio RN Position: [facility] RN Member Role: Primary Care Nurse Name: Virgie Angel Position: [facility] RN Member Role: Primary Care Nurse Name: Azeb Gusman RN Position: [facility] RN Member Role: Primary Care Nurse Name: Meredith Martinez RN Position: [facility] RN Member Role: Primary Care Nurse Name: Anika Gotti RN Position: [facility] RN Supv Member Role: Primary Care Nurse Name: Justina Walker RN Position: [facility] RN Member Role: Primary Care Nurse Name: Kenia Zuniga RN Position: [facility] PCO w/OE and EZ Script Member Role: Primary Care Nurse Name: Ivone Hidalgo RN Position: [facility] RN Member Role: Primary Care Nurse Name: Mazin Penn MD Position: [facility] Psychiatry MD Member Role: Lifetime Consulting Physician Address: Address: [address] [place] [address] Name: *[facility], ED Attending Position: [facility] ED Attendings Patient Name: Dheeraj Lopez RN Position: [facility] ED RN W/OE and Tasks Member Role: Patient Care Provider Name: Melinda Denney RN Position: [facility] ED RN W/OE and Tasks Member Role: Patient Care Provider Name: April Bryan MD Position: [facility] Resident Member Role: Admitting Physician Address: Address: [address] [place] [address] Emergency Medicine [place], [place] [address] Name: Jolanta Donaldson Position: [facility] ED TA [facility] Member Role: Lap Grinder Care Team Related Persons Name: DORITA HERNANDEZ Address: [address] [place] [address] Name: STEW PECK Address: [address] [place] [address] Name: LOUIE OUTDOOR ILLUMINATING ENGINEERPETER Address: [address] [place] [address]
--- OUTSIDE RECORDS SUMMARY | 2023-08-16 12:32 | XMS_ITS | Continuity of Care Document ---
Author Name Unknown Organization [facility] Address [address] [place] [id number]- Care Team Providers Care Group Art Supervisor Name Role Phone Fatoumata Stokes DO Primary Care Physician Encounter [facility] Date(s): 10/15/22 - 10/16/[address] [address]- Encounter Diagnosis Auditory hallucination(Final) - 10/15/22 Bipolar illness(Final) - 10/15/22 Schizo-affective psychosis(Final) - 10/15/22 Discharge Disposition: A-D/C [place] Attending Physician: Av Hall DO Admitting Physician: [...] 09/29/22 9:09:00 EST, Route to Pharmacy Electronically, [id number], 163, cm, 09/14/22 8:12:00 EST, Height, 87.9, kg, 09/09/22 12:06:00 EST, Dry Weight Start Date: 09/29/22 Status: Ordered benztropine 1 mg oral tablet 1 mg, 1, tablet, By Mouth, 2 times a day, # 60 tablet, Refills 0, Tot. Refills 0, Maintenance, 09/14/22 13:02:00 EST, Route to Pharmacy Electronically, [facility], 163, cm, 09/14/22 8:12:00 EST, Height, 87.9, kg, 09/09/22 12:06:00 EST, D... Start Date: 09/14/22 Stop Date: 10/14/22 Status: Ordered cetirizine 10 mg oral tablet 1 tablet, By Mouth, Daily, # 30 tablet, 0 Refills, Maintenance, 09/14/22 13:03:00 EST, [facility], 163, cm, 09/14/22 8:12:00 EST, Height, 87.9, kg, 09/09/22 12:06:00 EST, Dry Weight Start Date: 09/14/22 Status: Ordered docusate sodium 100 mg oral capsule 1 capsule, By Mouth, 2 times a day, # 60 capsule, 11 Refills, 10/06/22 16:34:00 EST, [facility]/pharmacy #[id number], 163, cm, 09/14/22 8:12:00 EST, Height, 87.9, kg, 09/09/22 12:06:00 EST, Dry Weight Start Date: 10/06/22 Status: Ordered Estradiol Patch 0.1 mg/24 hours twice weekly transdermal film, extended release See Instructions, APPLY 1 PATCH TOPICALLY EVERY TUESDAY & TUESDAY, # 8 patch, 0 Refills, 09/14/22 13:03:00 EST, [facility], APPLY 1 PATCH TOPICALLY EVERY TUESDAY & TUESDAY, 163,cm, 09/14/22 8:12:00 EST, Height, 87.9, kg, 09/09/22 12:06:... Start Date: 09/14/22 Status: Ordered ferrous sulfate 325 mg oral enteric coated tablet 1, tablet, By Mouth, Every other day, may take with food to minimize abdominal discomfort, # 15 tablet, Refills 0, Tot. Refills 0, 09/14/22 13:04:00 EST, Route to Pharmacy Electronically, [facility], 163, cm, 09/14/22 8:12:00 [...] 0 Refills, Maintenance, 09/14/22 13:05:00 EST, Tablet, [facility], Partial fill upon patient request if the prescription is for a schedule II opioid drug., 163, cm, 09/14/22 8:12:0... Start Date: 09/14/22 Status: Ordered medroxyPROGESTERone 150 mg/mL intramuscular suspension 1 mL, Intramuscular, Every 3 months, # 1 mL, 3 Refills, Soft Stop, 03/13/21 13:05:00 EDT, [facility]/pharmacy #[id number], 164, cm, 03/13/21 9:51:00 EDT, Height, 112, kg, 10/14/20 10:13:00 EST, Dry Weight Start Date: 03/13/21 Status: Ordered olanzapine 2.5 mg oral tablet 2.5 mg, 1, tablet, By Mouth, Daily, PRN, Agitation/Psychosis, # 14 tablet, Refills 1, Tot. Refills 1, Maintenance, Other, 10/16/22 12:36:00 EST, Route to Pharmacy Electronically, [facility]/pharmacy #[id number], Partial fill upon patient request if the prescriptio... Start Date: 10/16/22 Stop Date: 11/13/22 Status: Ordered omeprazole 20 mg oral enteric coated capsule 1 capsule, By Mouth, Daily, # 90 capsule, 0 Refills, [id number], 163, cm, 09/24/21 16:23:00 EST, Height, 112, kg, 10/14/20 10:13:00 EST, Dry Weight Start Date: 03/04/22 Status: Ordered perphenazine 16 mg oral tablet 16 mg, 1, tablet, By Mouth, 2 times a day, take with 4mg tablet for a total dose of 20 mg 2 times daily, # 60 tablet, Refills 0, Tot. Refills 0, Maintenance, 09/14/22 13:06:00 EST, Route to Pharmacy Electronically, [facility], Partial fi... Start Date: 09/14/22 Status: Ordered perphenazine 4 mg oral tablet 4 mg, 1, tablet, By Mouth, 2 times a day, take with 16 mg tablet for a total dose of 20 mg 2 times daily, # 60 tablet, Refills 0, Tot. Refills 0, Maintenance, 09/14/22 13:06:00 EST, Route to PharmacyElectronically, [facility] 3, Partial f... Start Date: 09/14/22 Status: Ordered perphenazine 8 mg oral tablet 8 mg, 1, tablet, By Mouth, Daily, at 12 PM, # 30 tablet, Refills 0, Tot. Refills 0, Maintenance, 09/14/22 13:06:00 EST, Route to Pharmacy Electronically, [facility], Partial fill upon patient request if the prescription is for a schedule... Start Date: 09/14/22 Status: Ordered Senna 8.6 mg oral tablet 8.6 mg, 1, tablet, By Mouth, Daily at bedtime, # 30 tablet, Refills 0, Tot. Refills 0, Maintenance,09/14/22 13:06:00 EST, Route to Pharmacy Electronically, [facility] 3 Tablet, Partial fill upon patient request if the prescription is for... Start Date: 09/14/22 Status: Ordered simethicone 125 mg oral capsule See Instructions, TAKE 1 CAPSULE BY MOUTH THREE TIMES A DAY AFTER MEALS AND AT BEDTIME NEEDED, #48 capsule, 11 Refills, Maintenance, 09/24/22 18:10:00 EST, [id number], 163, cm, 09/14/22 8:12:00 EST, Height, 87.9, kg, 09/09/22 12:06:00 EST, Start Date: 09/24/22 Status: Ordered ZyPREXA 2.5 mg oral tablet 2.5 mg, 1, tablet, By Mouth, Daily at bedtime, # 14 tablet, Refills 0, Tot. Refills 0, Maintenance,10/16/22 11:51:00 EST, Route to Pharmacy Electronically, [facility]/pharmacy #[id number], Partial fill upon patient request if the [...] Range]: 1 2 3 Height 162 cm (10/16/22 11:57 AM) 162 cm (10/16/22 6:42 AM) 162 cm (10/15/22 8:29 PM) Weight 86 kg (10/16/22 11:57 AM) 86 kg (10/16/22 6:42 AM) 86 kg (10/15/22 8:29 PM) Oxygen Saturation [94-100 %] 100 % (10/16/22 11:57 AM) 100 % (10/16/22 6:42 AM) 98 % (10/15/22 8:29 PM) Pulse Rate [55-90 bpm] 68 bpm (10/16/22 11:57 AM) 66 bpm (10/16/22 6:42 AM) 78 bpm (10/15/22 8:29 PM) Body Mass Index [18.5-24.99 kg/m2] 32.77 kg/m2 *>HHI* (10/16/22 6:42 AM) 32.77 kg/m2 *>HHI* (10/15/22 8:27 PM) Blood Pressure [90-138/55-84 mm Hg] 142/88mm Hg *H* (10/16/22 11:57 AM) 147/90mm Hg *H* (10/16/22 6:42 AM) 132/82mm Hg (10/15/22 8:29 PM) Respiratory Rate [16-30 br/min] 16 br/min (10/16/22 11:57 AM) 16 br/min (10/16/22 6:42 AM) 18 br/min (10/15/22 8:29 PM) Temperature [96.8-100.4 DegF] 98.0 DegF (10/16/22 11:57 AM) 97.6 DegF (10/16/22 6:42 AM) 97.8 DegF (10/15/22 8:29 PM) Mode of Delivery (Oxygen) Room air (10/16/22 11:57 AM) Room air (10/16/22 6:42 AM) Room air (10/15/22 8:29 PM) Temperature Route Oral (10/16/22 11:57 AM) Oral (10/16/22 6:42 AM) Oral (10/15/22 8:29 PM) Dry Weight 86 kg (10/16/22 11:57 AM) 86 kg (10/16/22 6:42 AM) 86 kg (10/15/22 8:29 PM) Social History Social History Type Response Tobacco Use: 4 or less cigar ettes(less than 1/4 pack)/day in last 30 days. Sex History and physical note * Event Display: History and Physical Hospital Authored Date: [id number] [place], [place] PSYCHIATRIC HISTORY ASSESS EXAM NAME: LORETTA CELESTIN : 89 MR#: [id number] PCP: ADMITTED: 12/20/15 DATE OF SERVICE: 12/20/15 HPI - Hosp Psych H P Chief Complaint Pt was sent from [facility] [place] for hallunication History of Present Illness 24 yo AA Female with known schizophrenia was seen at [facility] for hallucination. Apparently pt has been lived in fci and sent to [facility] for acute exacerbation of her [...] QDAY Haloperidol* (Haldol*) 5 MG PO BID [place] Carbonate SR* (Lithobid*) 300 MG PO QDAY liTHIum Carbonate SR* ([place] Carbonate SR*) 450 MG PO 4PM Discontinued Reported Medications Citalopram* (CeleXA*) 40 MG PO QDAY Benztropine* 0.5 MG PO BID buPROPion SR* 150 MG PO COT152 Trazodone* (Desyrel*) 100 MG PO HS RisperiDONE* [...] 324 MG QDAY 12/20 0900 CKD PO [place] Carbonate 300 MG QDAY 12/20 0900 AC PO Polyethylene Glycol 17 GM QDAY 12/20 0900 CKD PO Benztropine Mesylate 1 MG 0900,1700 12/19 1700 AC PO Docusate Sodium 100 MG 0900,17012/19 1700 AC PO Haloperidol 5 MG 0900,1700 12/19 1700 AC PO [place] Carbonate 450 MG PM 12/19 1700 AC [...] fullly ambulartory Care Level Complexity of Care [id number] Comprehensive history, comprehensive examination, medical decision making of low complexity, at least 20 minutes at the bedside, patient's floor/ unit. ESigned by: YAS GARZA MD Date:12/21/15 Time:1633 / NOT FOR REDISCLOSURE WITHOUT PATIENT'S INFORMED CONSENT Admission evaluation note * Event Display: Admit Notes Authored Date: [id number] [place], [place] PSYCHIATRIC ADMISSION NOTE NAME: LORETTA CELESTIN : 89 HOSPITAL #: [id number] MR #: [id number] CHART LOC: PCP: DICTATING: MARIA R Robin MD DATE OF ADMISSION: 12/20/15 DATE OF SERVICE: 12/21/15 CHIEF COMPLAINT: This 23-year-old woman was admitted to [facility] on 12/20/15 on a Conditional Voluntary [...] is living in a fci. Came to [place] with her grandmother in 2013, was very [...] year NAME: LORETTA CELESTIN : 89 HOSP#: [id number] MR#: [id number] CHART LOC: PCP: DICTATING: MARIA R Robin MD PSYCHIATRIC ADMISSION NOTE CONTINUED: unknown. TREATMENT PLAN: Resume outpatient medications, physical exam, collateral contact with community caregivers and social network, safety plan, aftercare plan and observe. 927 T:sn DD:[id number] TD:0745 DT:[id number] TT:0924 JOB:[id number] TORIE MARIA R Robin MD ESigned by: Date:12/22/15 Time:0643 NOT FOR REDISCLOSURE WITHOUT PATIENT'S INFORMED CONSENT Note * Av Hall DO: PERFORM Event Display: Patient Education Leaflets Authored Date: [id number] Schizoaffective Disorder ?? [id number] Schizoaffective Disorder Schizoaffective disorder is a serious chronic mental health condition that has symptoms of schizophrenia (hallucinations or delusions) and symptoms of a mood disorder (stephany and depression). Schizoaffective disorder is a rare condition. It's often incorrectly diagnosed at first as bipolar disorder. It can take time to tell the difference between schizoaffective disorder and schizophreniaand mood disorders. Schizophrenia is long-term (chronic). It makes working and living society difficult. It's a type ofpsychosis that involves perceiving reality differently from those around you. The difference been reality and what you think become blurred in your mind.??The cause of schizophrenia is not yet known.It's believed to be a result of genetic and biological factors such as brain chemistry and structure. Symptoms of schizophrenia??include: ??? Seeing or hearing things that are not there (hallucinations) ??? False beliefs (delusions) ??? Disorganized thinking and speech ??? Severe anxiety ??? Feeling unreal ??? Paranoia ??? Insomnia ???Trouble thinking or concentrating clearly ??? Depression, feeling suicidal ??? Withdrawal from those around you (social withdrawal) Depression is one type of mood disorder that is related to brain chemistry. It's not just a state of unhappiness or sadness but a true disease. You may feel a lack of interest in normal activities. Sometimes there is sadness or guilt without any clear reason. Thinking may become slow and there can be a lack energy or feeling of hopelessness. Some people have thoughts of harming themselves at thisstage. Thoughts can even turn to suicide. Bipolar disorder is the other major mood disorder. It's an illness that causes strong mood swings between depression and stephany. In the manic phase you may think fast and do things quickly. It may seem like you are getting a lot done. At first, this may feel very good; but in the extreme this can lead to a lifestyle that is disorganized and chaotic, and includes risky behavior (spending sprees, sexual acting out, or drug use). In later stages, it may affect eating (no interest in food) and sleeping (unable to sleep for days at a time). Speech may speed up and become hard for others to understand. You may appear to others as if you are in your own world. The exact cause of schizoaffective disorder is unknown. But a person is more likely to get this illness if a family member has it. Use of drugs such as amphetamines (speed) and cocaine increase the risk of getting this disorder. People with this illness will generally have to treat it long-term. Medicine and psychotherapy can help. Home care ??? On-going care and support helps people manage this illness. Find a healthcare provider and therapist who meet your needs. Don't be discouraged if you have to visit a number of therapists before you find one that works well with you. ??? Be sure to take your prescribed medicine as directed, even if you think you don???t need it. Don't change the dose or stop the medicine unless you talk with your provider. Don't share your medicines or use another person's medicines. ??? Talk to your provider if you trouble paying for your medicine. Ask them to help you find resources to help with this. ??? Get the required lab work on schedule to check your overall health and make certain you are getting the right amount of medicine ??? Seek support from trusted friends or family by talking about your feelings and thoughts. Ask them to help you recognize behavior changes early so you can get help. If needed, your healthcare provider can adjust your medicines and stop serious problems from developing. ??? Tell each of your healthcare providers about all of the prescription medicines, ove c-bdp-iprotnu medicines, and supplements you take. This includes your dentist.??Certain supplementsinteract with medicines and can cause dangerous side effects.?? Ask your pharmacist when you have questions about medicine interactions. ??? If you are having trouble managing workplace issues, or caring for yourself because of this illness, contact your local Americans with Disabilities (ADA) office to see if they can help. ??The U.[place]. Department of Justice operates a toll-free ADA information line at 401-280-1836 (Voice) or 471-584-5687 (TTY). ??They can help you find a local office. ??? Don'tuse alcohol, amphetamines, cocaine, or related street??drugs to manage symptoms. These will interact with your medicines and make your condition worse. If your symptoms aren't being controlled, go back to your provider. You may need the dose of your current medicine changed or a different medicine. ?? Follow-up care Follow up with your healthcare provider, or??as advised. ?? Call 988 Call or text 988 if you ??? Have thoughts of harming yourself or others. . You will be connected to trained crisis counselors. ??? Have trouble breathing ??? Are very confused ??? Are very drowsy or have trouble awakening ??? Faint or lose consciousness ??? Have a rapid heart rate, very low heart rate, or a new irregular heart rate ??? Have a seizure The 988 counselors will work closely with 911 to get you the care you need. ?? When to seek medical advice Call your healthcare provider right away if any of these occur: ??? Feeling like your symptoms are getting worse ??? Family or friends express concern over your behavior and ask you to seek help ??? Feeling out of control or that you are being controlled by others ??? Unmanageable side effects fromthe prescription medicines. Don't stop your medicines because of the side effects unless you talk with your provider. ??? Feeling like you want to harm yourself or another ??? Unable to care for yourself ??? Worsening hallucinations ??? Worsening delusions or paranoia ??? Worsening depression or anxiety ?? Last Reviewed Date: 2021 ?? 9092-0709 [employer]. All rights reserved. This information is not intended as a substitute for professional medical care. Always follow your healthcare professional's instructions. ?? Patient Care team information Care Team Personnel Name: Dean Rivas RN Position: S RN Member Role: Primary Care Nurse Name: Fatoumata Stokes DO Position: [facility] Primary Care Physician Member Role: PCP Address: Address: [address] [place] [address]- [place] Name: Britt Polanco RN Position: [facility] RN Member Role: Primary Care Nurse Name: Anyi Avendano RN Position: [facility] RN Supv Member Role: Primary Care Nurse Name: Awilda Grider RN Position: [facility] RN Member Role: Primary Care Nurse Name: Chintan eLach DO Position: [facility] Renal MD Member Role: Lifetime Consulting Physician Address: Address: [address] [place] [address] [address] [facility] [place] [address]- Name: Cassi RNChandler Position: [facility] RN Member Role: Primary Care Nurse Name: Apurva Ji RN Position: [facility] ED RN W/OE and Tasks Member Role: Primary Care Nurse Name: Cordelia Matias RN Position: [facility] AMB Nurse Member Role: Primary Care Nurse Name: Radha Gutierrez Position: [facility] Outreach Member Role: Primary Care Nurse Name: Keenan Vincent RN Position: [facility] RN Member Role: Primary Care Nurse Name: Sasha Patricio RN Position: [facility] RN Member Role: Primary Care Nurse Name: Virgie Angel Position: [facility] RN Member Role: Primary Care Nurse Name: Umesh Pearson RN Position: [facility] RN Member Role: Primary Care Nurse Name: Azeb Gusman RN Position: [facility] RN Member Role: Primary Care Nurse Name: Meredith Martinez RN Position: [facility] RN Member Role: Primary Care Nurse Name: Anika Gotti RN Position: [facility] RN Supv Member Role: Primary Care Nurse Name: Kennedi Roca RN Position: [facility] RN Member Role: Primary Care Nurse Name: Justina Walker RN Position: [facility] RN Member Role: Primary Care Nurse Name: Kenia Zuniga RN Position: [facility] PCO w/OE and EZ Script Member Role: Primary Care Nurse Name: Ivone Hidalgo RN Position: [facility] RN Member Role: Primary Care Nurse Name: Mazin Penn MD Position: [facility] Psychiatry MD Member Role: [employer] Consulting Physician Address: Address: [address] [place] [address]- [place] Name: *[facility], ED Attending Position: [facility] ED Attendings Patient Name: Rafael Av RIVERA Position: [facility] Resident Member Role: Admitting Physician Address: Address: [address] [place] [address] [place] [address]- Name: Dheeraj Lopez RN Position: [facility] ED RN W/OE and Tasks Member Role: Patient Care Provider Care Team Related Persons Name: STEW PECK Address: [address] [place] [address] Name: PRISCA WESTON Address: home [address] [place] [address] Name: ARELY VASQUEZ STAFF Address: home [address] [place] [address]
--- OUTSIDE RECORDS SUMMARY | 2023-08-16 12:33 | XMS_ITS | Continuity of Care Document ---
Author Name Unknown Organization [facility] Address [address] [place] [address]- Care Team Providers Care Camp Dishwasher Name Role Phone Fatoumata Stokes DO Primary Care Physician [facility] Date[facility]s): 03/18/23 - 03/19/[address] [address]- Encounter Diagnosis Non-compliance(Final) - 03/18/23 Discharge Disposition: A-D/C Home Attending Physician: Lonny [...] 09/29/22 9:09:00 EST, Route to Pharmacy Electronically, [facility], 163, cm, 09/14/22 8:12:00 EST, Height, 87.9, [...] 60 capsule, 11 Refills, 10/06/22 16:34:00 EST, [facility]/pharmacy #[id number], 163, cm, 09/14/22 8:12:00 EST, Height, 87.9, kg, 09/09/22 12:06:00 EST, Dry Weight Start Date: 10/06/22 Status: Ordered estradiol 0.1 mg/24 hours twice weekly transdermal film, extended release See Instructions, apply 1 patch Topically every tuesday and , # 24 patch, 0 Refills, Maintenance, 11/24/22 12:36:00 EST, [facility]/pharmacy #[id number], Partial fill upon patient [...] Route to Pharmacy Electronically, [facility], 163, cm, 09/14/22 8:12:00 [...] 10/16/22 12:36:00 EST, Route to Pharmacy Electronically, [facility]/pharmacy #[id number], Partial fill upon patient request if the prescriptio... Start Date: 10/16/22 Stop Date: 11/13/22 Status: Ordered omeprazole 20 mg oral enteric coated capsule 1 capsule, By Mouth, Daily, # 90 capsule, 0 Refills, [facility], 163, cm, 09/24/21 16:23:00 EST, Height, 112, kg, 10/14/20 10:13:00 EST, Dry Weight Start Date: 03/04/22 Status: Ordered perphenazine 16 mg oral tablet 16 mg, 1, tablet, By Mouth, 2 times a day, take with 4mg tablet for a total dose of 20 mg 2 times daily, # 60 tablet, Refills 0, Tot. Refills 0, Maintenance, 09/14/22 13:06:00 EST, Route to Pharmacy Electronically, [facility] 3, Partial fi... Start Date: 09/14/22 Status: Ordered perphenazine 4 mg oral tablet 4 mg, 1, tablet, By Mouth, 2 times a day, take with 16 mg tablet for a total dose of 20 mg 2 times daily, # 60 tablet, Refills 0, Tot. Refills 0, Maintenance, 09/14/22 13:06:00 EST, Route to PharmacyElectronically, [facility] 3, Partial f... Start Date: 09/14/22 Status: Ordered perphenazine 8 mg oral tablet 8 mg, 1, tablet, By Mouth, Daily, at 12 PM, # 30 tablet, Refills 0, Tot. Refills 0, Maintenance, 09/14/22 13:06:00 EST, Route to Pharmacy Electronically, [facility] 3, Partial fill upon patient request if the prescription is for a schedule... Start Date: 09/14/22 Status: Ordered Senna 8.6 mg oral tablet 8.6 mg, 1, tablet, By Mouth, Daily at bedtime, # 30 tablet, Refills 0, Tot. Refills 0, Maintenance,09/14/22 13:06:00 EST, Route to Pharmacy Electronically, [facility] 3 Tablet, Partial fill upon patient request if the prescription is for... Start Date: 09/14/22 Status: Ordered simethicone 125 mg oral capsule See Instructions, TAKE 1 CAPSULE BY MOUTH THREE TIMES A DAY AFTER MEALS AND AT BEDTIME NEEDED, #48 capsule, 11 Refills, Maintenance, 09/24/22 18:10:00 EST, [facility], 163, cm, 09/14/22 8:12:00 EST, Height, 87.9, kg, 09/09/22 12:06:00 EST, Start Date: 09/24/22 Status: Ordered ZyPREXA 2.5 mg oral tablet 2.5 mg, 1, tablet, By Mouth, Daily at bedtime, # 14 tablet, Refills 0, Tot. Refills 0, Maintenance,10/16/22 11:51:00 EST, Route to Pharmacy Electronically, [facility]/pharmacy #[id number], Partial fill upon patient request if the [...] 3 Oxygen Saturation [94-100 %] 100 % (03/19/23 12:20 PM) 100 % (03/19/23 12:35 AM) 100 % (03/18/23 3:30 PM) Pulse Rate [55-90 bpm] 71 bpm (03/19/23 12:20 PM) 78 bpm (03/19/23 12:35 AM) 75 bpm (03/18/23 3:30 PM) Blood Pressure [90-138/55-84 mm Hg] 141/84mm Hg *H* (03/19/23 12:20 PM) 136/88mm Hg (03/19/23 12:35 AM) 151/99mm Hg *H* (03/18/23 3:30 PM) Respiratory Rate [16-30 br/min] 16 br/min (03/19/23 12:20 PM) 16 br/min (03/19/23 12:35 AM) 16 br/min (03/18/23 3:30 PM) Temperature [96.8-100.4 DegF] 98.3 DegF (03/19/23 12:35 AM) 98.5 DegF (03/18/23 3:30 PM) Mode of Delivery (Oxygen) Room air (03/19/23 12:20 PM) Room air (03/19/23 12:35 AM) Room air (03/18/23 3:30 PM) Temperature Route Oral (03/19/23 12:35 AM) Oral (03/18/23 3:30 PM) Social History Social History Type Response Tobacco Use: 4 or less cigar ettes(less than 1/4 pack)/day in last 30 days. Sex History and physical note * Event Display: History and Physical Hospital Authored Date: [id number] [place], [place] PSYCHIATRIC HISTORY ASSESS EXAM NAME: LORETTA CELESTIN : 89 MR#: [id number] PCP: ADMITTED: 12/20/15 DATE OF SERVICE: 12/20/15 HPI - Hosp Psych H P Chief Complaint Pt was sent from [facility] here for hallunication History of Present Illness 24 yo AA Female with known schizophrenia was seen at [facility] ER for hallucination. Apparently pt has been lived in snf and sent to [facility] for acute exacerbation of her underline schizophrenia. [...] QDAY Haloperidol* (Haldol*) 5 MG PO BID [place] Carbonate SR* (Lithobid*) 300 MG PO QDAY liTHIum Carbonate SR* ([place] Carbonate SR*) 450 MG PO 4PM Discontinued Reported Medications Citalopram* (CeleXA*) 40 MG PO QDAY Benztropine* 0.5 MG PO BID buPROPion SR* 150 MG PO [id number] Trazodone* (Desyrel*) 100 MG PO HS RisperiDONE* [...] 16 12/19 1414 Current Medications Current Medications Sig/Jesscia Start time Last Medication Dose Route/Reason Stop Time Status Admin Ferrous Sulfate 324 MG QDAY 12/20 0900 CKD PO [place] Carbonate 300 MG QDAY 12/20 0900 AC PO Polyethylene Glycol 17 GM QDAY 12/20 0900 CKD PO Benztropine Mesylate 1 MG 0900,1700 12/19 1700 AC PO Docusate Sodium 100 MG 0900,1700 12/19 1700 AC PO Haloperidol 5 MG 0900,1700 12/19 1700 AC PO [place] Carbonate 450 MG PM 12/19 1700 AC [...] fullly ambulartory Care Level Complexity of Care [id number] Comprehensive history, comprehensive examination, medical decision making of low complexity, at least 20 minutes at the bedside, patient's floor/ unit. ESigned by: YAS GARZA MD Date:12/21/15 Time:1633 / NOT FOR REDISCLOSURE WITHOUT PATIENT'S INFORMED CONSENT Admission evaluation note * Event Display: Admit Notes Authored Date: [id number] [place], [place] PSYCHIATRIC ADMISSION NOTE NAME: LORETTA CELESTIN : 89 HOSPITAL #: [id number] MR #: [id number] CHART LOC: PCP: DICTATING: MARIA R Robin MD DATE OF ADMISSION: 12/20/15 DATE OF SERVICE: 12/21/15 CHIEF COMPLAINT: This 23-year-old woman was admitted to [facility] on 12/20/15 on a Conditional Voluntary application because of suicidal ideation. HISTORY OF PRESENT ILLNESS: The patient has been treated for schizoaffective disorder depressed type, posttraumatic stress disorder, intellectual disability and alcohol syndrome with multiple hospitalizations for self-harming behavior and suicidal ideation. She presented to Crisis Services from her snf reporting that she was having urges to [...] how they had evolved. Staff at the snf where she lives reported her as unusually [...] HISTORY: The patient is living in a snf. Came to [place] with her grandmother [...] year NAME: LORETTA CELESTIN : 89 HOSP#: [id number] MR#: [id number] CHART LOC: PCP: DICTATING: MARIA R Robin MD PSYCHIATRIC ADMISSION NOTE CONTINUED: unknown. TREATMENT PLAN: Resume outpatient medications, physical exam, collateral contact with community caregivers and social network, safety plan, aftercare plan and observe. 927 T: DD:[id number] TD:0745 DT:[id number] TT:0924 JOB:[id number] MICHELLE/SHANNON MARIA R Robin MD ESigned by: Date:12/22/15 Time:06 NOT FOR REDISCLOSURE WITHOUT PATIENT'S INFORMED CONSENT EKG study * Event Display: ECG 12-Lead Authored Date: [id number] Please click on pdf link to open report * Event Display: ECG 12-Lead Authored Date: [id number] Ventricular Rate: 91 BPM Atrial Rate: 91 BPM P-R Interval: 152 ms QRS Duration: 78 ms Q-T Interval: 366 ms QTC Calculation(Bazett): 450 ms P [place]: 53 degrees R [place]: 54 degrees T [place]: 24 degrees Normal sinus rhythm Normal ECG When compared with ECG of 02-MAR-2023 16:11, No significant change was found Confirmed by ENRIQUE DENT ([id number]) on 03/19/2023 12:05:59 PM [place]: ENRIQUE DENT Patient Care team information Care Team Personnel Name: Dean Rivas RN Position: [facility] RN Member Role: Primary Care Nurse Name: Fatoumata Stokes DO Position: [facility] Physician - Primary Care Member Role: PCP Address: Address: [address] [place] [address] Adult & [place] [address]- Name: Britt Polanco RN Position: [facility] RN Member Role: Primary Care Nurse Name: Anyi Avendano RN Position: [facility] RN Supv Member Role: Primary Care Nurse Name: Awilda Grider RN Position: [facility] RN Member Role: Primary Care Nurse Name: Chintan Leach DO Position: [facility] Renal MD Member Role: Lifetime Consulting Physician Address: Address: [address] [place], [place] [address] [place], [place] [address] Name: Chandler Ye RN Position: [facility] RN Member Role: Primary Care Nurse Name: Apurva Ji RN Position: [facility] ED RN W/OE and Tasks Member Role: Primary Care Nurse Name: Cordelia Matias RN Position: [facility] AMB Nurse Member Role: Primary Care Nurse Name: Radha Gutierrez Position: [facility] Outreach Member Role: Primary Care Nurse Name: Keenan Vincent RN Position: [facility] SN RN Member Role: Primary Care Nurse Name: Sasha Patricio RN Position: [facility] RN Member Role: Primary Care Nurse Name: Virgie Angel Position: [facility] RN Member Role: Primary Care Nurse Name: Azeb Gusman RN Position: [facility] RN Member Role: Primary Care Nurse Name: Meredith Martinez RN Position: [facility] RN Member Role: Primary Care Nurse Name: Anika Gotti RN Position: [facility] RN Supv Member Role: Primary Care Nurse Name: Justina Walker RN Position: [facility] RN Member Role: Primary Care Nurse Name: Kenia Zuniga RN Position: [facility] PCO w/OE and EZ Script Member Role: Primary Care Nurse Name: Ivone Hidalgo RN Position: [facility] RN Member Role: Primary Care Nurse Name: Mazin Penn MD Position: [facility] Physician - Behavioral Health Member Role: Lifetime Consulting Physician Address: Address: [address] [place] [address]- Name: *[facility], ED Attending Position: [facility] ED Attendings Patient Name: Chintan Mendenhall RN Position: [facility] ED RN W/OE and Tasks Member Role: Patient Care Provider Name: Lonny Erickson MD Position: [facility] ED Medicine MD Member Role: Admitting Physician Address: Address: [address] [place] [address] [place] [address]- Care Team Related Persons Name: DORITA HERNANDEZ Address: [address] [place] [address] Name: STEW PECK Address: home [address] [place] [address] Name: LOUIE HOLLOW HANDLE KNIFE ASSEMBLERPETER Address: [address] [place] [address]
--- OUTSIDE RECORDS SUMMARY | 2023-08-16 12:33 | XMS_ITS | Continuity of Care Document ---
Author Name Unknown Organization [facility] Address [address] [place] [address]- Care Team Providers Care Child And Family Counselor Name Role Phone Fatoumata Stokes DO Primary Care Physician ( [phone] [facility] 07[facility]11[facility]23 - 08/10/23 [facility] [address] [place], [place] [address] Allergies, Adverse Reactions, [...] 07/19/23 13:48:00 EDT, Route to Pharmacy Electronically, [facility], Partial fill upon patient request ifthe [...] 0 Refills, Maintenance, 07/05/23 0:27:00 EDT, [facility] [place], Partial fill upon patient request if the [...] 0 Refills, Maintenance, 07/19/23 13:49:00 EDT, Capsule, [facility], Partial fill upon patient request if [...] Maintenance,07/19/23 13:53:00 EDT, Route to Pharmacy Electronically, [facility], Partial fill upon patient request if the prescription is for a schedule... Start Date: 07/19/23 Stop Date: 08/18/23 Status: Ordered traZODone 50 mg oral tablet 50 mg, 1, tablet, By Mouth, Daily at bedtime, # 30 tablet, Refills 0, Tot. Refills 0, Maintenance, 07/19/23 13:53:00 EDT, Route to Pharmacy Electronically, [facility], Partial fill upon patient request if [...] 07/19/23 13:50:00 EDT, Route to Pharmacy Electronically, [facility], Partial fill upon patient request if the prescription is for a schedule I... Start Date: 07/19/23 Stop Date: 08/18/23 Status: Ordered ZyPREXA 5 mg oral tablet 5 mg, 1, tablet, By Mouth, Daily in AM, # 30 tablet, Refills 0, Tot. Refills 0, Maintenance, 07/19/23 13:50:00 EDT, Route to Pharmacy Electronically, [facility], Partial fill upon patient request if [...] Display: History and Physical Hospital Authored Date: [id number] [place], [place] PSYCHIATRIC HISTORY ASSESS EXAM NAME: LORETTA CELESTIN : 89 MR#: [id number] PCP: ADMITTED: 12/20/15 DATE OF SERVICE: 12/20/15 HPI - Hosp Psych H P Chief Complaint Pt was sent from [facility] here for hallunication History of Present Illness 24 yo AA Female with known schizophrenia was seen at [facility] for hallucination. Apparently pt has been lived in shelter and sent to [facility] for acute exacerbation of [...] QDAY Haloperidol* (Haldol*) 5 MG PO BID [place] Carbonate SR* (Lithobid*) 300 MG PO QDAY liTHIum Carbonate SR* ([place] Carbonate SR*) 450 MG PO 4PM Discontinued Reported Medications Citalopram* (CeleXA*) 40 MG PO QDAY Benztropine* 0.5 MG PO BID buPROPion SR* 150 MG PO [id number] Trazodone* (Desyrel*) 100 MG PO HS RisperiDONE* [...] 324 MG QDAY 12/20 0900 CKD PO [place] Carbonate 300 MG QDAY 12/20 0900 AC PO Polyethylene Glycol 17 GM QDAY 12/20 0900 CKD PO Benztropine Mesylate 1 MG 0900,1700 12/19 1700 AC PO Docusate Sodium 100 MG 0900,1700 12/19 1700 AC PO Haloperidol 5 MG 0900,1700 12/19 1700 AC PO [place] Carbonate 450 MG PM 12/19 1700 AC [...] fullly ambulartory Care Level Complexity of Care E05895 Comprehensive history, comprehensive examination, medical decision making of low complexity, at least 20 minutes at the bedside, patient's floor/ unit. ESigned by: YAS GARZA MD Date:12/21/15 Time:1633 / NOT FOR REDISCLOSURE WITHOUT PATIENT'S INFORMED CONSENT Admission evaluation note * Event Display: Admit Notes Authored Date: [id number] [place], [place] PSYCHIATRIC ADMISSION NOTE NAME: LORETTA CELESTIN : 89 HOSPITAL #: [id number] MR #: [id number] CHART LOC: PCP: DICTATING: MARIA R Robin MD DATE OF ADMISSION: 12/20/15 DATE OF SERVICE: 12/21/15 CHIEF COMPLAINT: This 23-year-old woman was admitted to [facility] on 12/20/15 on a Conditional Voluntary application because of suicidal ideation. HISTORY OF PRESENT ILLNESS: The patient has been treated for schizoaffective disorder depressed type, posttraumatic stress disorder, intellectual disability and alcohol syndrome with multiple hospitalizations for self-harming behavior and suicidal ideation. She presented to Crisis Services from her shelter reporting that she was having urges to [...] how they had evolved. Staff at the shelter where she lives reported her as unusually [...] HISTORY: The patient is living in a shelter. Came to [place] with her grandmother in 2013, was very [...] year NAME: LORETTA CELESTIN : 89 HOSP#: [id number] MR#: [id number] CHART LOC: PCP: DICTATING: MARIA R Robin MD PSYCHIATRIC ADMISSION NOTE CONTINUED: unknown. TREATMENT PLAN: Resume outpatient medications, physical exam, collateral contact with community caregivers and social network, safety plan, aftercare plan and observe. 927 T:sn DD:[id number] TD:0745 DT:20151221 TT:0924 JOB:[id number] MICHELLE/SHANNON MARIA R Robin MD ESigned by: Date:12/22/15 Time:642 NOT FOR REDISCLOSURE WITHOUT PATIENT'S INFORMED CONSENT Patient Care team information Care Team Personnel Name: Dean Rivas RN Position: [facility] RN Member Role: Primary Care Nurse Name: Tian Naylor RN Position: [facility] RN Member Role: Primary Care Nurse Name: Jolanta Ace RN Position: [facility] RN Supv Member Role: Primary Care Nurse Name: Fatoumata Stokes DO Position: [facility] Physician - Primary Care Member Role: PCP Address: Address: [address] [place] [address] Adult [place] [address]- Name: Britt Polanco RN Position: [facility] RN Member Role: Primary Care Nurse Name: Awilda Grider RN Position: [facility] RN Member Role: Primary Care Nurse Name: Meagan Darden RN Position: [facility] RN Member Role: Primary Care Nurse Name: Chintan Leach DO Position: [facility] Renal MD Member Role: Lifetime Consulting Physician Address: Address: [address] [place], [place] [address] [place], [place] [address] Name: Chandler Ye RN Position: [facility] RN Member Role: Primary Care Nurse Name: Apurva Ji RN Position: [facility] ED RN W/OE and Tasks Member Role: Primary Care Nurse Name: Cordelia Matias RN Position: [facility] AMB Nurse Member Role: Primary Care Nurse Name: Riya Moore RN Position: [facility] RN Member Role: Primary Care Nurse Name: Radha Gutierrez Position: [facility] Outreach Member Role: Primary Care Nurse Name: Keenan Vincent RN Position: [facility] SN RN Member Role: Primary Care Nurse Name: Sasha Patricio RN Position: [facility] RN Member Role: Primary Care Nurse Name: Virgie Angel Position: [facility] RN Member Role: Primary Care Nurse Name: Emma Kaminski RN Position: [facility] RN Member Role: Primary Care Nurse Name: Malu Palomo Position: [facility] RN Member Role: Primary Care Nurse Name: Azeb Gusman RN Position: [facility] RN Member Role: Primary Care Nurse Name: Asher Diaz RN Position: [facility] RN Member Role: Primary Care Nurse Name: Kim Cornell RN Position: [facility] RN Member Role: Primary Care Nurse Name: Meredith Martinez RN Position: [facility] RN Member Role: Primary Care Nurse Name: Anika Gotti RN Position: [facility] RN Member Role: Primary Care Nurse Name: Rafiq Muñoz RN Position: [facility] RN Member Role: Primary Care Nurse Name: Justina Walker RN Position: [facility] RN Member Role: Primary Care Nurse Name: Ivone Hidalgo RN Position: [facility] RN Member Role: Primary Care Nurse Name: Mazin Penn MD Position: [facility] Physician - Behavioral Health Member Role: Lifetime Consulting Physician Address: Address: [address] [place] [address] [place] Care Team Related Persons Name: CHUN DORITA Address: [address] [place] [address] Name: STEW PECK Address: home [address] [facility], [address] Name: LISA PALMA Address: [address] [place] [address]
--- OUTSIDE RECORDS SUMMARY | 2023-08-16 12:33 | XMS_ITS | Continuity of Care Document ---
Author Name Unknown Organization [facility] Address [address] [place] [address]- Care Team Providers Care Revenue Coordinator Name Role Phone Fatoumata Stokes DO Primary Care Physician [facility] Date[facility]s): 03/12/23 - 03/12/[address] [address]- Encounter Diagnosis Auditory hallucination(Final) - 03/12/23 Visual hallucination(Final) - 03/12/23 Discharge Disposition: A-D/C Home Attending Physician: Av [...] 09/29/22 9:09:00 EST, Route to Pharmacy Electronically, [id number], 163, cm, 09/14/22 8:12:00 EST, Height, 87.9, kg, 09/09/22 12:06:00 EST, Dry Weight Start Date: 09/29/22 Status: Ordered benztropine 1 mg oral tablet 1 mg, 1, tablet, By Mouth, 2 times a day, # 60 tablet, Refills 0, Tot. Refills 0, Maintenance, 09/14/22 13:02:00 EST, Route to Pharmacy Electronically, [facility], 163, cm, 09/14/22 8:12:00 EST, Height, 87.9, kg, 09/09/22 12:06:00 EST, D... Start Date: 09/14/22 Stop Date: 10/14/22 Status: Ordered cetirizine 10 mg oral tablet 1 tablet, By Mouth, Daily, # 30 tablet, 0 Refills, Maintenance, 09/14/22 13:03:00 EST, [facility] 3, 163, cm, 09/14/22 8:12:00 EST, Height, 87.9, kg, 09/09/22 12:06:00 EST, Dry Weight Start Date: 09/14/22 Status: Ordered docusate sodium 100 mg oral capsule 1 capsule, By Mouth, 2 times a day, # 60 capsule, 11 Refills, 10/06/22 16:34:00 EST, [facility]/pharmacy #[id number], 163, cm, 09/14/22 8:12:00 EST, Height, 87.9, kg, 09/09/22 12:06:00 EST, Dry Weight Start Date: 10/06/22 Status: Ordered estradiol 0.1 mg/24 hours twice weekly transdermal film, extended release See Instructions, apply 1 patch Topically every tuesday and , # 24 patch, 0 Refills, Maintenance, 11/24/22 12:36:00 EST, [facility]/pharmacy #[id number], Partial fill upon patient request if the prescription is for a schedule II opioid drug., 162, cm, 11/23... Start Date: 11/24/22 Status: Ordered Estradiol Patch 0.1 mg/24 hours twice weekly transdermal film, extended release See Instructions, APPLY 1 PATCH TOPICALLY EVERY TUESDAY & TUESDAY, # 8 patch, 0 Refills, 09/14/22 13:03:00 EST, [facility] 3, APPLY 1 PATCH TOPICALLY EVERY TUESDAY & TUESDAY, 163,cm, 09/14/22 8:12:00 EST, Height, 87.9, kg, 09/09/22 12:06:... Start Date: 09/14/22 Status: Ordered ferrous sulfate 325 mg oral enteric coated tablet 1, tablet, By Mouth, Every other day, may take with food to minimize abdominal discomfort, # 15 tablet, Refills 0, Tot. Refills 0, 09/14/22 13:04:00 EST, Route to Pharmacy Electronically, [facility], 163, cm, 09/14/22 8:12:00 [...] 0 Refills, Maintenance, 09/14/22 13:05:00 EST, Tablet, [facility], Partial fill upon patient request if the prescription is for a schedule II opioid drug., 163, cm, 09/14/22 8:12:0... Start Date: 09/14/22 Status: Ordered medroxyPROGESTERone 150 mg/mL intramuscular suspension 1 mL, Intramuscular, Every 3 months, # 1 mL, 3 Refills, Soft Stop, 03/13/21 13:05:00 EDT, [facility]/pharmacy #[id number], 164, cm, 03/13/21 9:51:00 EDT, Height, 112, kg, 10/14/20 10:13:00 EST, Dry Weight Start Date: 03/13/21 Status: Ordered olanzapine 2.5 mg oral tablet 2.5 mg, 1, tablet, By Mouth, Daily, PRN, Agitation/Psychosis, # 14 tablet, Refills 1, Tot. Refills 1, Maintenance, Other, 10/16/22 12:36:00 EST, Route to Pharmacy Electronically, [facility]/pharmacy #[id number], Partial fill upon patient request if the prescriptio... Start Date: 10/16/22 Stop Date: 11/13/22 Status: Ordered omeprazole 20 mg oral enteric coated capsule 1 capsule, By Mouth, Daily, # 90 capsule, 0 Refills, [facility] STORE [id number], 163, cm, 09/24/21 16:23:00 EST, Height, 112, kg, 10/14/20 10:13:00 EST, Dry Weight Start Date: 03/04/22 Status: Ordered perphenazine 16 mg oral tablet 16 mg, 1, tablet, By Mouth, 2 times a day, take with 4mg tablet for a total dose of 20 mg 2 times daily, # 60 tablet, Refills 0, Tot. Refills 0, Maintenance, 09/14/22 13:06:00 EST, Route to Pharmacy Electronically, [facility] 3, Partial fi... Start Date: 09/14/22 Status: Ordered perphenazine 4 mg oral tablet 4 mg, 1, tablet, By Mouth, 2 times a day, take with 16 mg tablet for a total dose of 20 mg 2 times daily, # 60 tablet, Refills 0, Tot. Refills 0, Maintenance, 09/14/22 13:06:00 EST, [facility], Partial f... Start Date: 09/14/22 Status: Ordered perphenazine 8 mg oral tablet 8 mg, 1, tablet, By Mouth, Daily, at 12 PM, # 30 tablet, Refills 0, Tot. Refills 0, Maintenance, 09/14/22 13:06:00 EST, Route to Pharmacy Electronically, [facility] 3, Partial fill upon patient request if the prescription is for a schedule... Start Date: 09/14/22 Status: Ordered Senna 8.6 mg oral tablet 8.6 mg, 1, tablet, By Mouth, Daily at bedtime, # 30 tablet, Refills 0, Tot. Refills 0, Maintenance,09/14/22 13:06:00 EST, Route to Pharmacy Electronically, [facility] 3 Tablet, Partial fill upon patient request if the prescription is for... Start Date: 09/14/22 Status: Ordered simethicone 125 mg oral capsule See Instructions, TAKE 1 CAPSULE BY MOUTH THREE TIMES A DAY AFTER MEALS AND AT BEDTIME NEEDED, #48 capsule, 11 Refills, Maintenance, 09/24/22 18:10:00 EST, [facility] STORE [id number], 163, cm, 09/14/22 8:12:00 EST, Height, 87.9, kg, 09/09/22 12:06:00 EST, Start Date: 09/24/22 Status: Ordered ZyPREXA 2.5 mg oral tablet 2.5 mg, 1, tablet, By Mouth, Daily at bedtime, # 14 tablet, Refills 0, Tot. Refills 0, Maintenance,10/16/22 11:51:00 EST, Route to Pharmacy Electronically, [facility]/pharmacy #[id number], Partial fill upon patient request if the [...] 2 Oxygen Saturation [94-100 %] 98 % (03/12/23 4:28 PM) 99 % (03/12/23 10:20 AM) Pulse Rate [55-90 bpm] 89 bpm (03/12/23 4:28 PM) 85 bpm (03/12/23 10:20 AM) Blood Pressure [90-138/55-84 mm Hg] 152/ 98mm Hg *H* (03/12/23 4:28 PM) 152/99mm Hg *H* (03/12/23 10:20 AM) Respiratory Rate [16-30 br/min] 16 br/mi n (03/12/23 4:28 PM) 18 br/min (03/12/23 10:20 AM) Temperature [96.8-100.4 DegF] 98.8 DegF (03/12/23 4:28 PM) 98.2 DegF (03/12/23 10:20 AM) Mode of Delivery (Oxygen) Room air (03/12/23 4:28 PM) Room air (03/12/23 10:20 AM) Blood pressure sites Arm, right (03/12/23 4:28 PM) Arm, right (03/12/23 10:20 AM) Temperature Route Oral (03/12/23 4:28 PM) Oral (03/12/23 10:20 AM) Social History Social History Type Response Tobacco Use: 4 or less cigar ettes(less than 1/4 pack)/day in last 30 days. Sex History and physical note * Event Display: History and Physical Hospital Authored Date: [id number] [place], [place] PSYCHIATRIC HISTORY ASSESS EXAM NAME: LORETTA CELESTIN : 89 MR#: [id number] PCP: ADMITTED: 12/20/15 DATE OF SERVICE: 12/20/15 HPI - Hosp Psych H P Chief Complaint Pt was sent from [facility] here for hallunication History of Present Illness 24 yo AA Female with known schizophrenia was seen at [facility] for hallucination. Apparently pt has been lived in fpc and sent to [facility] for acute exacerbation of her underline schizophrenia. [...] QDAY Haloperidol* (Haldol*) 5 MG PO BID [place] Carbonate SR* (Lithobid*) 300 MG PO QDAY liTHIum Carbonate SR* ([place] Carbonate SR*) 450 MG PO 4PM Discontinued Reported Medications Citalopram* (CeleXA*) 40 MG PO QDAY Benztropine* 0.5 MG PO BID buPROPion SR* 150 MG PO [id number] Trazodone* (Desyrel*) 100 MG PO HS RisperiDONE* [...] 324 MG QDAY 12/20 0900 CKD PO [place] Carbonate 300 MG QDAY 12/20 0900 AC PO Polyethylene Glycol 17 GM QDAY 12/20 09 CKD PO Benztropine Mesylate 1 MG 0900,1700 12/19 1700 AC PO Docusate Sodium 100 MG 0900,1700 12/19 1700 AC PO Haloperidol 5 MG 0900,17012/19 1700 AC PO [place] Carbonate 450 MG PM 12/19 1700 AC [...] fullly ambulartory Care Level Complexity of Care [id number] Comprehensive history, comprehensive examination, medical decision making of low complexity, at least 20 minutes at the bedside, patient's floor/ unit. ESigned by: YAS GARZA MD Date:12/21/15 Time:1633 / NOT FOR REDISCLOSURE WITHOUT PATIENT'S INFORMED CONSENT Admission evaluation note * Event Display: Admit Notes Authored Date: [place], [place] PSYCHIATRIC ADMISSION NOTE NAME: LORETTA CELESTIN : 89 HOSPITAL #: [id number] MR #: [id number] CHART LOC: PCP: DICTATING: MARIA R Robin MD DATE OF ADMISSION: 12/20/15 DATE OF SERVICE: 12/21/15 CHIEF COMPLAINT: This 23-year-old woman was admitted to [facility] on 12/20/15 on a Conditional Voluntary application because of suicidal ideation. HISTORY OF PRESENT ILLNESS: The patient has been treated for schizoaffective disorder depressed type, posttraumatic stress disorder, intellectual disability and alcohol syndrome with multiple hospitalizations for self-harming behavior and suicidal ideation. She presented to Crisis Services from her fpc reporting that she was having urges to [...] how they had evolved. Staff at the fpc where she lives reported her as unusually [...] HISTORY: The patient is living in a fpc. Came to [place] with her grandmother in [...] year NAME: LORETTA CELESTIN : 89 HOSP#: [id number] MR#: [id number] CHART LOC: PCP: DICTATING: MARIA R Robin MD PSYCHIATRIC ADMISSION NOTE CONTINUED: unknown. TREATMENT PLAN: Resume outpatient medications, physical exam, collateral contact with community caregivers and social network, safety plan, aftercare plan and observe. 927 T:sn DD:[id number] TD:0745 DT:[id number] TT:0924 JOB:[id number] MICHELLE/SHANNON MARIA R Robin MD ESigned by: Date:12/22/15 Time:642 NOT FOR REDISCLOSURE WITHOUT PATIENT'S INFORMED CONSENT Patient Care team information Care Team Personnel Name: Dean Rivas RN Position: [facility] RN Member Role: Primary Care Nurse Name: Fatoumata Stokes DO Position: S Physician - Primary Care Member Role: PCP Address: Address: [address] [place] [address] Adult & Pediatric Medicine [place], [place] - Name: Britt Polanco RN Position: [facility] RN Member Role: Primary Care Nurse Name: Anyi Avendano RN Position: [facility] RN Supv Member Role: Primary Care Nurse Name: Awilda Grider RN Position: [facility] RN Member Role: Primary Care Nurse Name: Chintan Leach DO Position: [facility] Renal MD Member Role: Lifetime Consulting Physician Address: Address: [address] [place] [address] [address] [facility] [place], [place] - Name: Chandler Ye RN Position: [facility] RN Member Role: Primary Care Nurse Name: Apurva Ji RN Position: [facility] ED RN W/OE and Tasks Member Role: Primary Care Nurse Name: Cordelia Matias RN Position: [facility] AMB Nurse Member Role: Primary Care Nurse Name: Radha Gutierrez Position: [facility] Outreach Member Role: Primary Care Nurse Name: Keenan Vincent RN Position: [facility] SN RN Member Role: Primary Care Nurse Name: Sasha Patricio RN Position: [facility] RN Member Role: Primary Care Nurse Name: Virgie Angel Position: [facility] RN Member Role: Primary Care Nurse Name: Azeb Gusman RN Position: [facility] RN Member Role: Primary Care Nurse Name: Meredith Martinez RN Position: [facility] RN Member Role: Primary Care Nurse Name: Anika Gotti RN Position: [facility] RN Supv Member Role: Primary Care Nurse Name: Justina Walker RN Position: [facility] RN Member Role: Primary Care Nurse Name: Kenia Zuniga RN Position: [facility] PCO w/OE and EZ Script Member Role: Primary Care Nurse Name: Ivone Hidalgo RN Position: [facility] RN Member Role: Primary Care Nurse Name: Mazin Penn MD Position: [facility] Physician - Behavioral Health Member Role: Lifetime Consulting Physician Address: Address: [address] [place] [address] - Name: Cher Ochoa MD Position: [facility] Resident Member Role: ED Resident Address: Address: [address] [place] [address] Emergency Medicine [place], [place] - Name: Michelle Golden RN Position: [facility] ED RN W/OE and Tasks Member Role: Patient Care Provider Name: Kevin Adair MD Position: [facility] ED Medicine MD Address: Address: [address] [place] [address] [place] [address]- Care Team Related Persons Name: DORITA HERNANDEZ Address: home [address] [place] [address] Name: STEW PECK Address: home [address] [place] [id number] Name: LOUIE PAYLOADER MACHINE OPERATORPETER Address: home [address] [place] [address]
--- OUTSIDE RECORDS SUMMARY | 2023-08-16 12:33 | XMS_ITS | Continuity of Care Document ---
Author Name Unknown Organization [facility] Address [address] [place] [address]- Care Team Providers Care Core Analyst Name Role Phone Fatoumata Stokes DO Primary Care Physician [facility] 07/28[facility]22 - 08/27/22 [facility] [address] [place], [place] [address] Allergies, Adverse Reactions, Alerts Substance [...] 05/28/21 7:42:00 EDT, Route to Pharmacy Electronically, [facility]/pharmacy #[id number], 164, cm,04/07/21 15:35:00 EDT, Height, 112, kg, [...] tablet, 2 Refills, Maintenance, 07/12/22 10:38:00 EDT, [facility] ST[facility] 24167, 162, cm, 06/18/22 11:49:00 EDT, Height, 100, kg, 06/16/22 6:50:00 EDT, Dry Weight Start Date: 07/12/22 Status: Ordered docusate sodium 100 mg oral capsule 1 capsule, By Mouth, 2 times a day, # 60 capsule, 5 Refills, [facility] 17803, 163, cm, 09/24/21 16:23:00 EST, Height, 112, kg, 10/14/20 10:13:00 EST, Dry Weight Start Date: 02/03/22 Status: Ordered Estradiol Patch 0.1 mg/24 hours twice weekly transdermal film, extended release See Instructions, APPLY 1 PATCH TOPICALLY EVERY TUESDAY & TUESDAY, # 24 patch, 4 Refills, [facility] 04845, 84, APPLY 1 PATCH TOPICALLY EVERY TUESDAY [...] Mouth, Daily, # 90 capsule, 0 Refills, [facility] 87646, 163, cm, 09/24/21 16:23:00 EST, Height, 112, [...] AT BEDTIME NEEDED, #48 capsule, 11 Refills, [facility], 163, cm, 09/24/21 16:23:00 EST, Height, 112, [...] Display: History and Physical Hospital Authored Date: [id number] [place], [place] PSYCHIATRIC HISTORY ASSESS EXAM NAME: LORETTA CELESTIN : 89 MR#: [id number] PCP: ADMITTED: 12/20/15 DATE OF SERVICE: 12/20/15 HPI - Hosp Psych H P Chief Complaint Pt was sent from [facility] here for hallunication History of Present Illness 24 yo AA Female with known schizophrenia was seen at [facility] for hallucination. Apparently pt has been lived in [facility] and sent to [facility] for acute exacerbation of her underline [...] QDAY Haloperidol* (Haldol*) 5 MG PO BID [place]ita Carbonate SR* (Lithobid*) 300 MG PO QDAY liTHIum Carbonate SR* ([place]ita Carbonate SR*) 450 MG PO 4PM Discontinued Reported Medications Citalopram* (CeleXA*) 40 MG PO QDAY Benztropine* 0.5 MG PO BID buPROPion SR* 150 MG PO [id number] Trazodone* (Desyrel*) 100 MG PO HS RisperiDONE* [...] 324 MG QDAY 12/20 0900 CKD PO Rosita Carbonate 300 MG QDAY 12/20 0900 AC PO Polyethylene Glycol 17 GM QDAY 12/20 0900 CKD PO Benztropine Mesylate 1 MG 0900,1700 12/19 1700 AC PO Docusate Sodium 100 MG 0900,1700 12/19 1700 AC PO Haloperidol 5 MG 0900,1700 12/19 1700 AC PO [place] Carbonate 450 MG PM 12/19 1700 AC [...] fullly ambulartory Care Level Complexity of Care [id number] Comprehensive history, comprehensive examination, medical decision making of low complexity, at least 20 minutes at the bedside, patient's floor/ unit. ESigned by: YAS GARZA MD Date:12/21/15 Time:1633 / NOT FOR REDISCLOSURE WITHOUT PATIENT'S INFORMED CONSENT Admission evaluation note * Event Display: Admit Notes Authored Date: [id number] [place], [place] PSYCHIATRIC ADMISSION NOTE NAME: LORETTA CELESTIN : 89 HOSPITAL #: [id number] MR #: [id number] CHART LOC: PCP: DICTATING: MARIA R Robin MD DATE OF ADMISSION: 12/20/15 DATE OF SERVICE: 12/21/15 CHIEF COMPLAINT: This 23-year-old woman was admitted to [facility] on 12/20/15 on a Conditional Voluntary [...] is living in a m[facility]p. Came to [place] with her grandmother in 2013, was very [...] year NAME: LORETTA CELESTIN : 89 HOSP#: [id number] MR#: [id number] CHART LOC: PCP: DICTATING: MARIA R Robin MD PSYCHIATRIC ADMISSION NOTE CONTINUED: unknown. TREATMENT PLAN: Resume outpatient medications, physical exam, collateral contact with community caregivers and social network, safety plan, aftercare plan and observe. 927 T:sn DD:[id number] TD:0745 DT:20151221 TT:0924 JOB:[id number] MICHELLE/SHANNON MARIA R Robin MD ESigned by: Date:12/22/15 Time:642 NOT FOR REDISCLOSURE WITHOUT PATIENT'S INFORMED CONSENT Patient Care team information Care Team Personnel Name: Dean Rivas RN Position: [facility] RN Member Role: Primary Care Nurse Name: Fatoumata Stokes DO Position: [facility] Primary Care Physician Member Role: PCP Address: Address: [address] [place] [address] Adult & Pediatric Medicine [place], [place] [address] Name: Britt Polanco RN Position: [facility] RN Member Role: Primary Care Nurse Name: Anyi Avendano RN Position: [facility] RN Supv Member Role: Primary Care Nurse Name: Chintan Leach DO Position: [facility] Renal MD Member Role: Lifetime Consulting Physician Address: Address: [address] [place] [address] [address] [facility] [place] [address]- Name: Chandler Ye RN Position: [facility] RN Member Role: Primary Care Nurse Name: Apurva Ji RN Position: [facility] ED RN W/OE and Tasks Member Role: Primary Care Nurse Name: Cordelia Matias RN Position: [facility] AMB Nurse Member Role: Primary Care Nurse Name: Radha Gutierrez Position: [facility] Outreach Member Role: Primary Care Nurse Name: Keenan Vincent RN Position: [facility] SN RN Member Role: Primary Care Nurse Name: Virgie Angel Position: [facility] RN Member Role: Primary Care Nurse Name: Darcie Valero RN Position: [facility] RN Member Role: Primary Care Nurse Name: Umesh Pearson RN Position: [facility] RN Member Role: Primary Care Nurse Name: Azeb Gusman RN Position: [facility] RN Member Role: Primary Care Nurse Name: Meredith Martinez RN Position: [facility] RN Member Role: Primary Care Nurse Name: Kennedi Roca RN Position: [facility] RN Member Role: Primary Care Nurse Name: Justina Walker RN Position: [facility] RN Member Role: Primary Care Nurse Name: Kenia Zuniga RN Position: [facility] PCO w/OE and EZ Script Member Role: Primary Care Nurse Name: Mazin Penn MD Position: [facility] Psychiatry MD Member Role: Lifetime Consulting Physician Address: Address: [address] [place] [address]- Care Team Related Persons Name: ASIADEEDEE STEW Address: [address] [place] [address] Name: ARELY VASQUEZ STAFF Address: [address] [place] [address] Name: ANYA DON Address: home [address] [place] [address]
--- OUTSIDE RECORDS SUMMARY | 2023-08-16 12:33 | XMS_ITS | Continuity of Care Document ---
Author Name Unknown Organization [facility] Address [address] [place] [address]- Care Team Providers Care Ergonomist Name Role Phone Fatoumata Stokes DO Primary Care Physician Encounter [facility] Date(s): 04/09/22 - 08/15/22 [facility] [address] [place], [place] [address] Attending Physician: Fatoumata Stokes DO Allergies, Adverse [...] 05/28/21 7:42:00 EDT, Route to Pharmacy Electronically, [facility]/pharmacy #[id number], 164, cm,04/07/21 15:35:00 EDT, Height, 112, kg, 10/14/20 10... Start Date: 05/28/21 Status: Ordered benztropine 1 mg oral tablet 1 mg, 1, tablet, By Mouth, 2 times a day, # 60 tablet, Refills 0, Tot. Refills 0, Maintenance, 01/01/20 16:15:00 EDT, Route to Pharmacy Electronically, [facility]/pharmacy #[id number], 163, cm, 01/01/20 14:39:00 EDT, Height, 86.5, kg, 12/19/19 19:14:00 EDT, Dry We... Start Date: 01/01/20 Stop Date: 01/31/20 Status: Ordered cetirizine 10 mg oral tablet 1 tablet, By Mouth, Daily, # 30 tablet, 2 Refills, Maintenance, 07/12/22 10:38:00 EDT, [id number], 162, cm, 06/18/22 11:49:00 EDT, Height, 100, kg, 06/16/22 6:50:00 EDT, Dry Weight Start Date: 07/12/22 Status: Ordered docusate sodium 100 mg oral capsule 1 capsule, By Mouth, 2 times a day, # 60 capsule, 5 Refills, [facility] ST[facility] [id number], 163, cm, 09/24/21 16:23:00 EST, Height, 112, kg, 10/14/20 10:13:00 EST, Dry Weight Start Date: 02/03/22 Status: Ordered Estradiol Patch 0.1 mg/24 hours twice weekly transdermal film, extended release See Instructions, APPLY 1 PATCH TOPICALLY EVERY TUESDAY & TUESDAY, # 24 patch, 4 Refills, [facility] [id number], 84, APPLY 1 PATCH TOPICALLY EVERY TUESDAY [...] 0 Refills, Maintenance, 01/01/20 16:16:00 EDT, Capsule, [facility]/pharmacy #[id number], 163, cm, 01/01/20 14:39:00 EDT, Height, 86.5, kg, 12/19/19 19:14:00 EDT, Dry Weight Start Date: 01/01/20 Stop Date: 03/01/20 Status: Ordered medroxyPROGESTERone 150 mg/mL intramuscular suspension 1 mL, Intramuscular, Every 3 months, # 1 mL, 3 Refills, Soft Stop, 03/13/21 13:05:00 EDT, [facility]/pharmacy #[id number], 164, cm, 03/13/21 9:51:00 EDT, Height, 112, kg, 10/14/20 10:13:00 EST, Dry Weight Start Date: 03/13/21 Status: Ordered omeprazole 20 mg oral enteric coated capsule 1 capsule, By Mouth, Daily, # 90 capsule, 0 Refills, [facility] ST[facility] [id number], 163, cm, 09/24/21 16:23:00 EST, Height, 112, [...] AT BEDTIME NEEDED, #48 capsule, 11 Refills, [facility], 163, cm, 09/24/21 16:23:00 EST, Height, 112, [...] Display: History and Physical Hospital Authored Date: [id number] [place], [place] PSYCHIATRIC HISTORY ASSESS EXAM NAME: LORETTA CELESTIN : 89 MR#: [id number] PCP: ADMITTED: 12/20/15 DATE OF SERVICE: 12/20/15 HPI - Hosp Psych H P Chief Complaint Pt was sent from [facility] here for hallunication History of Present Illness 24 yo AA Female with known schizophrenia was seen at [facility] for hallucination. Apparently pt has been lived in jail and sent to [facility] QDAY Haloperidol* (Haldol*) 5 MG PO BID [place] Carbonate SR* (Lithobid*) 300 MG PO QDAY liTHIum Carbonate SR* ([place] Carbonate SR*) 450 MG PO 4PM Discontinued Reported Medications Citalopram* (CeleXA*) 40 MG PO QDAY Benztropine* 0.5 MG PO BID buPROPion SR* 150 MG PO [id number] Trazodone* (Desyrel*) 100 MG PO HS RisperiDONE* [...] 324 MG QDAY 12/20 0900 CKD PO [place] Carbonate 300 MG QDAY 12/20 0900 AC PO Polyethylene Glycol 17 GM QDAY 12/20 0900 CKD PO Benztropine Mesylate 1 MG 0900,1700 12/19 1700 AC PO Docusate Sodium 100 MG 0900,1700 12/19 1700 AC PO Haloperidol 5 MG 0900,1700 12/19 1700 AC PO [place] Carbonate 450 MG PM 12/19 1700 AC [...] fullly ambulartory Care Level Complexity of Care [id number] Comprehensive history, comprehensive examination, medical decision making of low complexity, at least 20 minutes at the bedside, patient's floor/ unit. ESigned by: YAS GARZA MD Date:12/21/15 Time:1633 / NOT FOR REDISCLOSURE WITHOUT PATIENT'S INFORMED CONSENT Admission evaluation note * Event Display: Admit Notes Authored Date: [id number] [place], [place] PSYCHIATRIC ADMISSION NOTE NAME: LORETTA CELESTIN : 89 HOSPITAL #: [id number] MR #: [id number] CHART LOC: PCP: DICTATING: MARIA R Robin MD DATE OF ADMISSION: 12/20/15 DATE OF SERVICE: 12/21/15 CHIEF COMPLAINT: This 23-year-old woman was admitted to [facility] on 12/20/15 on a Conditional Voluntary [...] is living in a jail. Came to [place] with her grandmother in 2013, was very [...] year NAME: LORETTA CELESTIN : 89 HOSP#: [id number] MR#: [id number] CHART LOC: PCP: DICTATING: MARIA R Robin MD PSYCHIATRIC ADMISSION NOTE CONTINUED: unknown. TREATMENT PLAN: Resume outpatient medications, physical exam, collateral contact with community caregivers and social network, safety plan, aftercare plan and observe. 927 T:sn DD:[id number] TD:0745 DT:[id number] TT:0924 JOB:[id number] MICHELLE/SHANNON MARIA R Robin MD ESigned by: Date:12/22/15 Time:642 NOT FOR REDISCLOSURE WITHOUT PATIENT'S INFORMED CONSENT Patient Care team information Care Team Personnel Name: Dean Rivas RN Position: [facility] RN Member Role: Primary Care Nurse Name: Fatoumata Stokes DO Position: [facility] Primary Care Physician Member Role: PCP Address: Address: [address] [place] [address] Adult [place] [address]- Name: Britt Polanco RN Position: [facility] RN Member Role: Primary Care Nurse Name: Angela Aceves RN Position: [facility] RN Member Role: Primary Care Nurse Name: Anyi Avendano RN Position: [facility] RN Supv Member Role: Primary Care Nurse Name: Chintan Leach DO Position: [facility] Renal MD Member Role: Lifetime Consulting Physician Address: Address: [address] [place], [place] [address] [place], [place] [address] Name: Chandler Ye RN Position: [facility] RN Member Role: Primary Care Nurse Name: Apurva Ji RN Position: [facility] ED RN W/OE and Tasks Member Role: Primary Care Nurse Name: Cordelia Matias RN Position: [facility] AMB Nurse Member Role: Primary Care Nurse Name: Radha Gutierrez Position: [facility] Outreach Member Role: Primary Care Nurse Name: Keenan Vincent RN Position: [facility] RN Member Role: Primary Care Nurse Name: Virgie Angel Position: [facility] RN Member Role: Primary Care Nurse Name: Darcie Valero RN Position: [facility] RN Member Role: Primary Care Nurse Name: Umesh Pearson RN Position: [facility] RN Member Role: Primary Care Nurse Name: Azeb Gusman RN Position: [facility] RN Member Role: Primary Care Nurse Name: Meredith Martinez RN Position: [facility] RN Member Role: Primary Care Nurse Name: Kennedi Roca RN Position: [facility] RN Member Role: Primary Care Nurse Name: Justina Walker RN Position: [facility] RN Member Role: Primary Care Nurse Name: Kenia Zuniga RN Position: [facility] PCO w/OE and EZ Script Member Role: Primary Care Nurse Name: Mazin Penn MD Position: [facility] Psychiatry MD Member Role: Lifetime Consulting Physician Address: Address: [address] [place] [address] [place] Care Team Related Persons Name: STEW PECK Address: home [address] [place] [address] Name: ARELY VASQUEZ STAFF Address: home [address] [place] [address] Name: ANYA DON Address: home [address] [place] [address]
--- OUTSIDE RECORDS SUMMARY | 2023-08-16 12:34 | XMS_ITS | Continuity of Care Document ---
Author Name Unknown Organization [facility] Address [address] [place] [address]- Care Team Providers Care Regional Sales Leader Name Role Phone Fatoumata Stokes DO Primary Care Physician Encounter [facility] Date(s): 06/28/22 - 06/29/[address] [address]- Encounter Diagnosis Suicide ideation(Final) - 06/29/22 Discharge Disposition: Transfer to [facility] Facility Attending Physician: Kenneth Govea MD Admitting Physician: [...] to Pharmacy Electronically, [facility]/pharmacy #[id number], 164, cm,04/07/21 15:35:00 EDT, Height, 112, kg, 10/14/20 10... Start Date: 05/28/21 Status: Ordered benztropine 1 mg oral tablet 1 mg, 1, tablet, By Mouth, 2 times a day, # 60 tablet, Refills 0, Tot. Refills 0, Maintenance, 01/01/20 16:15:00 EDT, Route to Pharmacy Electronically, [facility]/pharmacy #[id number], 163, cm, 01/01/20 14:39:00 EDT, Height, 86.5, kg, 12/19/19 19:14:00 EDT, Dry We... Start Date: 01/01/20 Stop Date: 01/31/20 Status: Ordered cetirizine 10 mg oral tablet 1 tablet, By Mouth, Daily, # 30 tablet, 2 Refills, 04/28/22 15:16:00 EDT, [facility]/pharmacy #[id number], 163, cm, 09/24/21 16:23:00 EST, Height, 112, kg, 10/14/20 10:13:00 EST, Dry Weight Start Date: 04/28/22 Status: Ordered docusate sodium 100 mg oral capsule 1 capsule, By Mouth, 2 times a day, # 60 capsule, 5 Refills, [facility] ST[facility] 86939, 163, cm, 09/24/21 16:23:00 EST, Height, 112, kg, 10/14/20 10:13:00 EST, Dry Weight Start Date: 02/03/22 Status: Ordered Estradiol Patch 0.1 mg/24 hours twice weekly transdermal film, extended release See Instructions, APPLY 1 PATCH TOPICALLY EVERY TUESDAY & TUESDAY, # 24 patch, 4 Refills, [facility] ST[facility] 79584, 84, APPLY 1 PATCH TOPICALLY EVERY TUESDAY [...] 0 Refills, [facility] ST[facility] 54446, 163, cm, 09/24/21 16:23:00 EST, Height, 112, [...] AT BEDTIME NEEDED, #48 capsule, 11 Refills, [facility] ST[facility] 36482, 163, cm, 09/24/21 16:23:00 EST, Height, 112, kg, 10/14/20 10:13:00 EST, Dry Weight Start Date: 01/15/22 Status: Ordered Problem List Condition Confirmation Course Effective Dates Status Health Status Informant Last pap smear 08/31/19 negative Confirmed Active Chronic constipation Confirmed Active Chronic post-traumatic stress disorder Confirmed Active Depression Confirmed Active alcohol syndrome Confirmed [...] Weight gain with seroquel in the past 1 Confirmed Active 1Really accelerated when seroquel dose increased Vital Signs Most recent to oldest [Reference Range]: 1 2 3 Oxygen Saturation [94-100 %] 100 % (06/29/22 8:48 PM) 100 % (06/29/22 2:03 PM) 100 % (06/29/22 10:09 AM) Pulse Rate [55-90 bpm] 97 bpm *H* (06/29/22 8:48 PM) 94 bpm *H* (06/29/22 2:03 PM) 91 bpm *H* (06/29/22 10:09 AM) Blood Pressure [90-138/55-84 mm Hg] 138/82mm Hg (06/29/22 8:48 PM) 147/83mm Hg *H* (06/29/22 2:03 PM) 133/86mm Hg (06/29/22 10:09 AM) Respiratory Rate [16-30 br/min] 18 br/min (06/29/22 10:09 AM) 18 br/min (06/29/22 8:22 AM) 16 br/min (06/29/22 5:43 AM) Temperature [96.8-100.4 DegF] 98.2 DegF (06/29/22 8:48 PM) 98.4 DegF (06/29/22 2:03 PM) 98.0 DegF (06/29/22 10:09 AM) Mode of Delivery (Oxygen) Room air (06/29/22 8:48 PM) Room air (06/29/22 10:09 AM) Room air (06/29/22 8:22 AM) Blood pressure sites Arm, right (06/29/22 2:03 PM) Arm, left (06/29/22 10:09 AM) Arm, left (06/29/22 8:22 AM) Temperature Route Oral (06/29/22 8:48 PM) Oral (06/29/22 2:03 PM) Oral (06/29/22 10:09 AM) Social History Social History Type Response Tobacco Use: 4 or less cigar ettes(less than 1/4 pack)/day in last 30 days. Sex Patient Care team information Personnel Name: Fatoumata Stokes DO Address: Address: [address] [place] [address] Adult [facility] Pediatric [facility] [place], [place] [address]
--- OUTSIDE RECORDS SUMMARY | 2023-08-16 12:34 | XMS_ITS | Continuity of Care Document ---
Author Name Unknown Organization [facility] Address [address] [place] [id number]- Care Team Providers Care Personal Lines Sales Executive Name Role Phone Fatoumata Stokes DO Primary Care Physician Encounter [facility] Date(s): 05/14/23 - 05/14/[address] [address]- Encounter Diagnosis Suicidal ideation(Final) - 05/14/23 Discharge Disposition: A-D/C Home Attending Physician: Oliver Garcai MD Admitting Physician: Oliver Garcia MD Referring Physician: Not on Staff, Referring [...] 09/29/22 9:09:00 EST, Route to Pharmacy Electronically, [id number], 163, cm, 09/14/22 8:12:00 EST, Height, 87.9, kg, 09/09/22 12:06:00 EST, Dry Weight Start Date: 09/29/22 Status: Ordered benztropine 1 mg oral tablet 1 mg, 1, tablet, By Mouth, 2 times a day, # 60 tablet, Refills 0, Tot. Refills 0, Maintenance, 09/14/22 13:02:00 EST, Route to Pharmacy Electronically, [facility], 163, cm, 09/14/22 8:12:00 EST, Height, 87.9, kg, 09/09/22 12:06:00 EST, D... Start Date: 09/14/22 Stop Date: 10/14/22 Status: Ordered cetirizine 10 mg oral tablet 1 tablet, By Mouth, Daily, # 30 tablet, 0 Refills, Maintenance, 09/14/22 13:03:00 EST, [facility], 163, cm, 09/14/22 8:12:00 EST, Height, 87.9, kg, 09/09/22 12:06:00 EST, Dry Weight Start Date: 09/14/22 Status: Ordered docusate sodium 100 mg oral capsule 1 capsule, By Mouth, 2 times a day, # 60 capsule, 11 Refills, 10/06/22 16:34:00 EST, [facility]/pharmacy #[id number], 163, cm, 09/14/22 8:12:00 EST, Height, 87.9, kg, 09/09/22 12:06:00 EST, Dry Weight Start Date: 10/06/22 Status: Ordered estradiol 0.1 mg/24 hours twice weekly transdermal film, extended release See Instructions, apply 1 patch Topically every tuesday and , # 24 patch, 0 Refills, Maintenance, 11/24/22 12:36:00 EST, [facility]/pharmacy #[id number], Partial fill upon patient request if the prescription is for a schedule II opioid drug., 162, cm, 11/23... Start Date: 11/24/22 Status: Ordered Estradiol Patch 0.1 mg/24 hours twice weekly transdermal film, extended release See Instructions, APPLY 1 PATCH TOPICALLY EVERY TUESDAY & TUESDAY, # 8 patch, 0 Refills, 09/14/22 13:03:00 EST, [facility], APPLY 1 PATCH TOPICALLY EVERY TUESDAY & TUESDAY, 163,cm, 09/14/22 8:12:00 EST, Height, 87.9, kg, 09/09/22 12:06:... Start Date: 09/14/22 Status: Ordered ferrous sulfate 325 mg oral enteric coated tablet See Instructions, TAKE 1 TABLET BY MOUTH EVERY DAY, # 30 tablet, Refills 6, Tot. Refills 6, Maintenance, 05/06/23 14:25:00 EDT, Instructions Replace Required Details, Route to Pharmacy Electronically, [facility], 162, cm, 05/02/23 13:11:00 E... Start Date: 05/06/23 Status: Ordered ferrous sulfate 325 mg oral enteric coated tablet 1, tablet, By Mouth, Every other day, may take with food to minimize abdominal discomfort, # 15 tablet, Refills 0, Tot. Refills 0, 09/14/22 13:04:00 EST, Route to Pharmacy Electronically, [facility], 163, cm, 09/14/22 8:12:00 [...] 0 Refills, Maintenance, 09/14/22 13:05:00 EST, Tablet, [facility], Partial fill upon patient request if the prescription is for a schedule II opioid drug., 163, cm, 09/14/22 8:12:0... Start Date: 09/14/22 Status: Ordered medroxyPROGESTERone 150 mg/mL intramuscular suspension 1 mL, Intramuscular, Every 3 months, # 1 mL, 3 Refills, Soft Stop, 03/13/21 13:05:00 EDT, [facility]/pharmacy #[id number], 164, cm, 03/13/21 9:51:00 EDT, Height, 112, kg, 10/14/20 10:13:00 EST, Dry Weight Start Date: 03/13/21 Status: Ordered MiraLax oral powder for reconstitution = 17 Gm, By Mouth, Daily, dissolve in water before taking; hold for diarrhea, # 527 Gm, 1 Refills, Maintenance, 05/06/23 15:37:00 EDT, REC Powder, [facility], Partial fill upon patient request if the prescription is for a schedule II opioid... Start Date: 05/06/23 Status: Ordered olanzapine 2.5 mg oral tablet 2.5 mg, 1, tablet, By Mouth, Daily, PRN, Agitation/Psychosis, # 14 tablet, Refills 1, Tot. Refills 1, Maintenance, Other, 10/16/22 12:36:00 EST, Route to Pharmacy Electronically, [facility]/pharmacy #[id number], Partial fill upon patient request if the prescriptio... Start Date: 10/16/22 Stop Date: 11/13/22 Status: Ordered omeprazole 20 mg oral enteric coated capsule 1 capsule, By Mouth, Daily, # 90 capsule, 0 Refills, [id number], 163, cm, 09/24/21 16:23:00 EST, Height, 112, kg, 10/14/20 10:13:00 EST, Dry Weight Start Date: 03/04/22 Status: Ordered perphenazine 16 mg oral tablet 16 mg, 1, tablet, By Mouth, 2 times a day, take with 4mg tablet for a total dose of 20 mg 2 times daily, # 60 tablet, Refills 0, Tot. Refills 0, Maintenance, 09/14/22 13:06:00 EST, Route to Pharmacy Electronically, [facility], Partial fi... Start Date: 09/14/22 Status: Ordered perphenazine 4 mg oral tablet 4 mg, 1, tablet, By Mouth, 2 times a day, take with 16 mg tablet for a total dose of 20 mg 2 times daily, # 60 tablet, Refills 0, Tot. Refills 0, Maintenance, 09/14/22 13:06:00 EST, Route to PharmacyElectronically, [facility], Partial f... Start Date: 09/14/22 Status: Ordered perphenazine 8 mg oral tablet 8 mg, 1, tablet, By Mouth, Daily, at 12 PM, # 30 tablet, Refills 0, Tot. Refills 0, Maintenance, 09/14/22 13:06:00 EST, Route to Pharmacy Electronically, [facility], Partial fill upon patient request if the prescription is for a schedule... Start Date: 09/14/22 Status: Ordered Senna 8.6 mg oral tablet 8.6 mg, 1, tablet, By Mouth, Daily at bedtime, PRN, # 30 tablet, Refills 0, Tot. Refills 0, Maintenance, Constipation, 05/06/23 14:23:00 EDT, Route to Pharmacy Electronically, [facility] Tablet, Partial fill upon patient request if the presc... Start Date: 05/06/23 Status: Ordered Senna 8.6 mg oral tablet 8.6 mg, 1, tablet, By Mouth, Daily at bedtime, # 30 tablet, Refills 0, Tot. Refills 0, Maintenance,09/14/22 13:06:00 EST, Route to Pharmacy Electronically, [facility] Tablet, Partial fill upon patient request if the prescription is for... Start Date: 09/14/22 Status: Ordered simethicone 125 mg oral capsule See Instructions, TAKE 1 CAPSULE BY MOUTH THREE TIMES A DAY AFTER MEALS AND AT BEDTIME NEEDED, #48 capsule, 11 Refills, Maintenance, 09/24/22 18:10:00 EST, [id number], 163, cm, 09/14/22 8:12:00 EST, Height, 87.9, kg, 09/09/22 12:06:00 EST, Start Date: 09/24/22 Status: Ordered ZyPREXA 2.5 mg oral tablet 2.5 mg, 1, tablet, By Mouth, Daily at bedtime, # 14 tablet, Refills 0, Tot. Refills 0, Maintenance,10/16/22 11:51:00 EST, Route to Pharmacy Electronically, [facility]/pharmacy #[id number], Partial fill upon patient request if the [...] Confirmed 2010 Active Schizoaffective schizophrenia Confirmed Active Severe obesity (BMI 35.0-39.9) with comorbidity Confirmed Active History of suicidal ideation w/ suicide attempt Confirmed Active Weight gain with seroquel in the past 2 Confirmed Active 1Problem added by Discern Expert 2Really accelerated when seroquel dose increased Vital Signs Most recent to oldest [Reference Range]: 1 2 3 Oxygen Saturation [94-100 %] 99 % (05/14/23 10:39 PM) 98 % (05/14/23 8:58 PM) Pulse Rate [55-90 bpm] 88 bpm (05/14/23 10:39 PM) 66 bpm (05/14/23 8:58 PM) Blood Pressure [90-138/55-84 mm Hg] 157/103mm Hg *H* (05/14/23 10:39 PM) 135/87mm Hg (05/14/23 8:58 PM) Respiratory Rate [16-30 br/min] 17 br/min (05/14/23 10:39 PM) 17 br/min (05/14/23 8:58 PM) Temperature [96.8-100.4 DegF] 97.2 DegF (05/14/23 10:39 PM) 98.4 DegF (05/14/23 8:58 PM) Mode of Delivery (Oxygen) Room air (05/14/23 10:39 PM) Room air (05/14/23 10:36 PM) Room air (05/14/23 8:58 PM) Blood pressure sites Arm, right (05/14/23 8:58 PM) Temperature Route Oral (05/14/23 10:39 PM) Oral (05/14/23 8:58 PM) Social History Social History Type Response Tobacco Use: 4 or less cigar ettes(less than 1/4 pack)/day in last 30 days. Sex History and physical note * Event Display: History and Physical Hospital Authored Date: [id number] [place], [place] PSYCHIATRIC HISTORY ASSESS EXAM NAME: LORETTA CELESTIN : 89 MR#: [id number] PCP: ADMITTED: 12/20/15 DATE OF SERVICE: 12/20/15 HPI - Hosp Psych H P Chief Complaint Pt was sent from [facility] here for hallunication History of Present Illness 24 yo AA Female with known schizophrenia was seen at [facility] for hallucination. Apparently pt has been lived in alf and sent to [facility] [...] QDAY Haloperidol* (Haldol*) 5 MG PO BID Candy Kitchen Carbonate SR* (Lithobid*) 300 MG PO QDAY liTHIum Carbonate SR* (Candy Kitchen Carbonate SR*) 450 MG PO 4PM Discontinued Reported Medications Citalopram* (CeleXA*) 40 MG PO QDAY Benztropine* 0.5 MG PO BID buPROPion SR* 150 MG PO [id number] Trazodone* (Desyrel*) 100 MG PO HS RisperiDONE* [...] 324 MG QDAY 12/20 0900 CKD PO Candy Kitchen Carbonate 300 MG QDAY 12/20 09 AC PO Polyethylene Glycol 17 GM QDAY 12/20 899 CKD PO Benztropine Mesylate 1 MG 09,12/19 1700 AC PO Docusate Sodium 100 MG 0900,12/19 1700 AC PO Haloperidol 5 MG 0900,12/19 1700 AC PO Candy Kitchen Carbonate 450 MG PM 12/19 1700 AC [...] fullly ambulartory Care Level Complexity of Care [id number] Comprehensive history, comprehensive examination, medical decision making of low complexity, at least 20 minutes at the bedside, patient's floor/ unit. ESigned by: YAS GARZA MD Date:12/21/15 Time:1633 / NOT FOR REDISCLOSURE WITHOUT PATIENT'S INFORMED CONSENT Admission evaluation note * Event Display: Admit Notes Authored Date: [id number] [place], [place] PSYCHIATRIC ADMISSION NOTE NAME: LORETTA CELESTIN : 89 HOSPITAL #: [id number] MR #: [id number] CHART LOC: PCP: DICTATING: MARIA R Robin MD DATE OF ADMISSION: 12/20/15 DATE OF SERVICE: 12/21/15 CHIEF COMPLAINT: This 23-year-old woman was admitted to [facility] on 12/20/15 on a Conditional Voluntary application because of suicidal ideation. HISTORY OF PRESENT ILLNESS: The patient has been treated for schizoaffective disorder depressed type, posttraumatic stress disorder, intellectual disability and alcohol syndrome with multiple hospitalizations for self-harming behavior and suicidal ideation. She presented to Crisis Services from her alf reporting that she was having urges to [...] how they had evolved. Staff at the alf where she lives reported her as unusually [...] HISTORY: The patient is living in a alf. Came to [place] with her grandmother in [...] year NAME: LORETTA CELESTIN : 89 HOSP#: [id number] MR#: [id number] CHART LOC: PCP: DICTATING: MARIA R Robin MD PSYCHIATRIC ADMISSION NOTE CONTINUED: unknown. TREATMENT PLAN: Resume outpatient medications, physical exam, collateral contact with community caregivers and social network, safety plan, aftercare plan and observe. 927 T:sn DD:[id number] TD:[id number] DT:[id number] TT:0924 JOB:[id number] MICHELLE/SHANNON MARIA R Robin MD ESigned by: Date:12/22/15 Time:642 NOT FOR REDISCLOSURE WITHOUT PATIENT'S INFORMED CONSENT Patient Care team information Care Team Personnel Name: Dean Rivas RN Position: [facility] RN Member Role: Primary Care Nurse Name: Fatoumata Stokes DO Position: [facility] Physician - Primary Care Member Role: PCP Address: Address: [address] [place] [address] Adult [facility] [place] [address]- Name: Britt Poalnco RN Position: [facility] RN Member Role: Primary Care Nurse Name: Awilda Grider RN Position: [facility] RN Member Role: Primary Care Nurse Name: Chintan Leach DO Position: [facility] Renal MD Member Role: Lifetime Consulting Physician Address: Address: [address] [place] [address] [address] [facility] [place], [place] [address] Name: Chandler Ye RN Position: [facility] RN Member Role: Primary Care Nurse Name: Apurva Ji RN Position: [facility] ED RN W/OE and Tasks Member Role: Primary Care Nurse Name: Cordelia Matias RN Position: [facility] AMB Nurse Member Role: Primary Care Nurse Name: Radha Gutierrez Position: [facility] Outreach Member Role: Primary Care Nurse Name: Keenan Vincent RN Position: [facility] SN RN Member Role: Primary Care Nurse Name: Sasha Patricio RN Position: [facility] RN Member Role: Primary Care Nurse Name: Virgie Angel Position: [facility] RN Member Role: Primary Care Nurse Name: Azeb Gusman RN Position: [facility] RN Member Role: Primary Care Nurse Name: Meredith Martinez RN Position: [facility] RN Member Role: Primary Care Nurse Name: Anika Gotti RN Position: [facility] RN Member Role: Primary Care Nurse Name: Justina Walker RN Position: [facility] RN Member Role: Primary Care Nurse Name: Kenia Zuniga RN Position: [facility] PCO w/OE and EZ Script Member Role: Primary Care Nurse Name: Ivone Hidalgo RN Position: [facility] RN Member Role: Primary Care Nurse Name: Mazin Penn MD Position: [facility] Physician - [facility] Member Role: Lifetime Consulting Physician Address: Address: [address] [place] [address]- Name: Chay Espinosa MD Position: [facility] Resident Member Role: ED Resident Address: Address: [address] [place] [address] [place] [address]- Name: Oliver Garcia MD Position: [facility] ED Medicine MD Member Role: Admitting Physician Address: Address: [address] [place] [address]- Name: Shivani Lewis RN Position: [facility] ED RN W/OE and Tasks Member Role: Patient Care Provider Name: Jolanta Donaldson Position: [facility] ED TA [facility] Member Role: Unix Engineer Care Team Related Persons Name: DORITA MCCOLLUM Address: [address] [place] [address] Name: STEW PECK Address: home [address] [place] [address] Name: LISA PALMA Address: home [address] [place] [address]
--- OUTSIDE RECORDS SUMMARY | 2023-08-16 12:34 | XMS_ITS | Continuity of Care Document ---
Author Name Unknown Organization [facility] Address [address] [place] [address]- Care Team Providers Care Rn New Graduate Name Role Phone Fatoumata Stokes DO Primary Care Physician [facility]): 05/05/23 - 06/04/23 [facility] [address] [place], [place] [address] Allergies, Adverse Reactions, [...] 09/29/22 9:09:00 EST, Route to Pharmacy Electronically, [id number], 163, cm, 09/14/22 8:12:00 EST, Height, 87.9, kg, 09/09/22 12:06:00 EST, Dry Weight Start Date: 09/29/22 Status: Ordered benztropine 1 mg oral tablet 1 mg, 1, tablet, By Mouth, 2 times a day, # 60 tablet, Refills 0, Tot. Refills 0, Maintenance, 09/14/22 13:02:00 EST, Route to Pharmacy Electronically, [facility], 163, cm, 09/14/22 8:12:00 EST, Height, 87.9, kg, 09/09/22 12:06:00 EST, D... Start Date: 09/14/22 Stop Date: 10/14/22 Status: Ordered cetirizine 10 mg oral tablet 1 tablet, By Mouth, Daily, # 30 tablet, 0 Refills, Maintenance, 09/14/22 13:03:00 EST, [facility], 163, cm, 09/14/22 8:12:00 [...] patch, 0 Refills, 09/14/22 13:03:00 EST, [facility], APPLY 1 PATCH TOPICALLY EVERY TUESDAY & TUESDAY, 163,cm, 09/14/22 8:12:00 EST, Height, 87.9, kg, 09/09/22 12:06:... Start Date: 09/14/22 Status: Ordered ferrous sulfate 325 mg oral enteric coated tablet See Instructions, TAKE 1 TABLET BY MOUTH EVERY DAY, # 30 tablet, Refills 6, Tot. Refills 6, Maintenance, 05/06/23 14:25:00 EDT, Instructions Replace Required Details, Route to Pharmacy Electronically, [facility], 162, cm, 05/02/23 13:11:00 E... Start Date: 05/06/23 Status: Ordered ferrous sulfate 325 mg oral enteric coated tablet 1, tablet, By Mouth, Every other day, may take with food to minimize abdominal discomfort, # 15 tablet, Refills 0, Tot. Refills 0, 09/14/22 13:04:00 EST, Route to Pharmacy Electronically, [facility], 163, cm, 09/14/22 8:12:00 [...] Refills, Maintenance, 09/14/22 13:05:00 EST, Tablet, [facility], Partial fill upon patient [...] 90 capsule, 0 Refills, [id number], 163, cm, 09/24/21 16:23:00 EST, Height, 112, kg, 10/14/20 10:13:00 EST, Dry Weight Start Date: 03/04/22 Status: Ordered perphenazine 16 mg oral tablet 16 mg, 1, tablet, By Mouth, 2 times a day, take with 4mg tablet for a total dose of 20 mg 2 times daily, # 60 tablet, Refills 0, Tot. Refills 0, Maintenance, 09/14/22 13:06:00 EST, Route to Pharmacy Electronically, [facility], Partial fi... Start Date: 09/14/22 Status: Ordered perphenazine 4 mg oral tablet 4 mg, 1, tablet, By Mouth, 2 times a day, take with 16 mg tablet for a total dose of 20 mg 2 times daily, # 60 tablet, Refills 0, Tot. Refills 0, Maintenance, 09/14/22 13:06:00 EST, Route to PharmacyElectronically, [facility] 3, Partial f... Start Date: 09/14/22 Status: Ordered perphenazine 8 mg oral tablet 8 mg, 1, tablet, By Mouth, Daily, at 12 PM, # 30 tablet, Refills 0, Tot. Refills 0, Maintenance, 09/14/22 13:06:00 EST, Route to Pharmacy Electronically, [facility], Partial fill upon patient [...] 13:06:00 EST, Route to Pharmacy Electronically, [facility] Tablet, Partial fill upon patient request if the prescription is for... Start Date: 09/14/22 Status: Ordered simethicone 125 mg oral capsule See Instructions, TAKE 1 CAPSULE BY MOUTH THREE TIMES A DAY AFTER MEALS AND AT BEDTIME NEEDED, #48 capsule, 11 Refills, Maintenance, 09/24/22 18:10:00 EST, [facility], 163, cm, 09/14/22 8:12:00 EST, Height, 87.9, kg, 09/09/22 12:06:00 EST, [facility] Start Date: 09/24/22 Status: Ordered ZyPREXA 2.5 mg oral tablet 2.5 mg, 1, tablet, By Mouth, Daily at bedtime, # 14 tablet, Refills 0, Tot. Refills 0, Maintenance,10/16/22 11:51:00 EST, Route to Pharmacy Electronically, [facility]/pharmacy #[id number], Partial fill upon patient request if the [...] Display: History and Physical Hospital Authored Date: [id number] [place], [place] PSYCHIATRIC HISTORY ASSESS EXAM NAME: LORETTA CELESTIN : [birth year] MR#: [id number] PCP: ADMITTED: 12/20/15 DATE OF SERVICE: 12/20/15 HPI - Hosp Psych H P Chief Complaint Pt was sent from [facility] here for hallunication History of Present Illness 24 yo AA Female with known schizophrenia was seen at [facility] for hallucination. Apparently pt has been lived in long term and [facility] QDAY Haloperidol* (Haldol*) 5 MG PO BID [place] Carbonate SR* (Lithobid*) 300 MG PO QDAY liTHIum Carbonate SR* ([place] Carbonate SR*) 450 MG PO 4PM Discontinued Reported Medications Citalopram* (CeleXA*) 40 MG PO QDAY Benztropine* 0.5 MG PO BID buPROPion SR* 150 MG PO [id number] Trazodone* (Desyrel*) 100 MG PO HS RisperiDONE* [...] 324 MG QDAY 12/20 09 CKD PO [place] Carbonate 300 MG QDAY 12/20 09 AC PO Polyethylene Glycol 17 GM QDAY 12/20 09 CKD PO Benztropine Mesylate 1 MG 0900,1700 12/19 1700 AC PO Docusate Sodium 100 MG 0900,1700 12/19 1700 AC PO Haloperidol 5 MG 0900,1700 12/19 1700 AC PO [place] Carbonate 450 MG PM 12/19 1700 AC [...] fullly ambulartory Care Level Complexity of Care K78100 Comprehensive history, comprehensive examination, medical decision making of low complexity, at least 20 minutes at the bedside, patient's floor/ unit. ESigned by: YAS GARZA MD Date:12/21/15 Time:1633 / NOT FOR REDISCLOSURE WITHOUT PATIENT'S INFORMED CONSENT Admission evaluation note * Event Display: Admit Notes Authored Date: [id number] [place], [place] PSYCHIATRIC ADMISSION NOTE NAME: LORETTA CELESTIN : 89 HOSPITAL #: [id number] #: [id number] CHART LOC: PCP: DICTATING: MARIA R Robin MD DATE OF ADMISSION: 12/20/15 DATE OF SERVICE: 12/21/15 CHIEF COMPLAINT: This 23-year-old woman was admitted to [facility] on 12/20/15 on a Conditional Voluntary application because of suicidal ideation. HISTORY OF PRESENT ILLNESS: The patient has been treated for schizoaffective disorder depressed type, posttraumatic stress disorder, intellectual disability and alcohol syndrome with multiple hospitalizations for self-harming behavior and suicidal ideation. She presented to Crisis Services from her long term reporting that she was having urges to [...] how they had evolved. Staff at the long term where she lives reported her as unusually [...] HISTORY: The patient is living in a long term. Came to [place] with her grandmother in 2013, was very [...] year NAME: LORETTA CELESTIN : 89 HOSP#: [id number] MR#: [id number] CHART LOC: PCP: DICTATING: MARIA R Robin MD PSYCHIATRIC ADMISSION NOTE CONTINUED: unknown. TREATMENT PLAN: Resume outpatient medications, physical exam, collateral contact with community caregivers and social network, safety plan, aftercare plan and observe. 927 T: DD:[id number] TD:0745 DT:[id number] TT:0924 JOB:[id number] MICHELLE/SHANNON MARIA R Robin MD ESigned by: Date:12/22/15 Time:642 NOT FOR REDISCLOSURE WITHOUT PATIENT'S INFORMED CONSENT Patient Care team information Care Team Personnel Name: Dean Rivas RN Position: S RN Member Role: Primary Care Nurse Name: Fatoumata Stokes DO Position: S Physician - Primary Care Member Role: PCP Address: Address: [address] [place] [address] Adult & Pediatric Medicine [place], [place] [address] Name: Britt Polanco RN Position: S RN Member Role: Primary Care Nurse Name: Awilda Grider RN Position: S RN Member Role: Primary Care Nurse Name: Chintan Leach DO Position: [facility] Renal MD Member Role: Lifetime Consulting Physician Address: Address: [address] [facility] [place] [address]- Name: Cassi ROTHMAN, Chandler Robin Position: [facility] ED RN W/OE and Tasks Member Role: Primary Care Nurse Name: Apurva Ji RN Position: [facility] ED RN W/OE and Tasks Member Role: Primary Care Nurse Name: Florencio RN, Cordelia Tarango Position: [facility] AMB Nurse Member Role: Primary Care Nurse Name: Radha Gutierrez Position: [facility] Outreach Member Role: Primary Care Nurse Name: Keenan Vincent RN Position: [facility] SN RN Member Role: Primary Care Nurse Name: Sasha Patricio RN Position: [facility] RN Member Role: Primary Care Nurse Name: Virgie Angel Position: [facility] RN Member Role: Primary Care Nurse Name: Azeb Gusman RN Position: [facility] RN Member Role: Primary Care Nurse Name: Meredith Martinez RN Position: [facility] RN Member Role: Primary Care Nurse Name: Anika Gotti RN Position: [facility] RN Member Role: Primary Care Nurse Name: Justina Walker RN Position: [facility] RN Member Role: Primary Care Nurse Name: Kenia Zuniga RN Position: [facility] PCO w/OE and EZ Script Member Role: Primary Care Nurse Name: Ivone Hidalgo RN Position: [facility] RN Member Role: Primary Care Nurse Name: Mazin Penn MD Position: [facility] Physician - Behavioral Health Member Role: Lifetime Consulting Physician Address: Address: [address] [place] [address]- Care Team Related Persons Name: CHUNDORITA Address: [address] [place] [address] Name: LIV STEW Address: [address] [place] [address] Name: LIAS PALMA Address: [address] [place] [address]
--- OUTSIDE RECORDS SUMMARY | 2023-08-16 12:34 | XMS_ITS | Continuity of Care Document ---
Author Name Unknown Organization [facility] Address [address], [address] [place] [address]- Care Team Providers Care Category Analyst Name Role Phone Fatoumata Stokes DO Primary Care Physician [facility]s): 12/16/22 - 01/15/23 [facility] [address], [address] [place] [address]- Allergies, Adverse Reactions, Alerts Substance Reaction Severity [...] 09/29/22 9:09:00 EST, Route to Pharmacy Electronically, [facility], 163, cm, 09/14/22 8:12:00 EST, Height, 87.9, kg, 09/09/22 12:06:00 EST, Dry Weight Start Date: 09/29/22 Status: Ordered benztropine 1 mg oral tablet 1 mg, 1, tablet, By Mouth, 2 times a day, # 60 tablet, Refills 0, Tot. Refills 0, Maintenance, 09/14/22 13:02:00 EST, Route to Pharmacy Electronically, [facility], 163, cm, 09/14/22 8:12:00 EST, Height, 87.9, kg, 09/09/22 12:06:00 EST, D... Start Date: 09/14/22 Stop Date: 10/14/22 Status: Ordered cetirizine 10 mg oral tablet 1 tablet, By Mouth, Daily, # 30 tablet, 0 Refills, Maintenance, 09/14/22 13:03:00 EST, [facility], 163, cm, 09/14/22 8:12:00 EST, Height, 87.9, kg, 09/09/22 12:06:00 EST, Dry Weight Start Date: 09/14/22 Status: Ordered docusate sodium 100 mg oral capsule 1 capsule, By Mouth, 2 times a day, # 60 capsule, 11 Refills, 10/06/22 16:34:00 EST, [facility]/pharmacy #4471, 163, cm, 09/14/22 8:12:00 EST, Height, 87.9, kg, 09/09/22 12:06:00 EST, Dry Weight Start Date: 10/06/22 Status: Ordered estradiol 0.1 mg/24 hours twice weekly transdermal film, extended release See Instructions, apply 1 patch Topically every tuesday and , # 24 patch, 0 Refills, Maintenance, 11/24/22 12:36:00 EST, [facility]/pharmacy #4471, Partial fill upon patient request if the prescription is for a schedule II opioid drug., 162, cm, 11/23... Start Date: 11/24/22 Status: Ordered Estradiol Patch 0.1 mg/24 hours twice weekly transdermal film, extended release See Instructions, APPLY 1 PATCH TOPICALLY EVERY TUESDAY & TUESDAY, # 8 patch, 0 Refills, 09/14/22 13:03:00 EST, [facility], APPLY 1 PATCH TOPICALLY EVERY TUESDAY & TUESDAY, 163,cm, 09/14/22 8:12:00 EST, Height, 87.9, kg, 09/09/22 12:06:... Start Date: 09/14/22 Status: Ordered ferrous sulfate 325 mg oral enteric coated tablet 1, tablet, By Mouth, Every other day, may take with food to minimize abdominal discomfort, # 15 tablet, Refills 0, Tot. Refills 0, 09/14/22 13:04:00 EST, Route to Pharmacy Electronically, [facility], 163, cm, 09/14/22 8:12:00 [...] 0 Refills, Maintenance, 09/14/22 13:05:00 EST, Tablet, [facility], Partial fill upon patient request if the prescription is for a schedule II opioid drug., 163, cm, 09/14/22 8:12:0... Start Date: 09/14/22 Status: Ordered medroxyPROGESTERone 150 mg/mL intramuscular suspension 1 mL, Intramuscular, Every 3 months, # 1 mL, 3 Refills, Soft Stop, 03/13/21 13:05:00 EDT, [facility]/pharmacy #4471, 164, cm, 03/13/21 9:51:00 EDT, Height, 112, kg, 10/14/20 10:13:00 EST, Dry Weight Start Date: 03/13/21 Status: Ordered olanzapine 2.5 mg oral tablet 2.5 mg, 1, tablet, By Mouth, Daily, PRN, Agitation/Psychosis, # 14 tablet, Refills 1, Tot. Refills 1, Maintenance, Other, 10/16/22 12:36:00 EST, Route to Pharmacy Electronically, [facility]/pharmacy #[id number], Partial fill upon patient request if the prescriptio... Start Date: 10/16/22 Stop Date: 11/13/22 Status: Ordered omeprazole 20 mg oral enteric coated capsule 1 capsule, By Mouth, Daily, # 90 capsule, 0 Refills, [facility], 163, cm, 09/24/21 16:23:00 EST, Height, 112, [...] Maintenance, 09/14/22 13:06:00 EST, Route to PharmacyElectronically, [facility], Partial f... Start Date: 09/14/22 Status: Ordered perphenazine 8 mg oral tablet 8 mg, 1, tablet, By Mouth, Daily, at 12 PM, # 30 tablet, Refills 0, Tot. Refills 0, Maintenance, 09/14/22 13:06:00 EST, Route to Pharmacy Electronically, [facility], Partial fill upon patient [...] capsule, 11 Refills, Maintenance, 09/24/22 18:10:00 EST, [facility], 163, cm, 09/14/22 8:12:00 EST, Height, 87.9, kg, 09/09/22 12:06:00 EST, Start Date: 09/24/22 Status: Ordered ZyPREXA 2.5 mg oral tablet 2.5 mg, 1, tablet, By Mouth, Daily at bedtime, # 14 tablet, Refills 0, Tot. Refills 0, Maintenance,10/16/22 11:51:00 EST, Route to Pharmacy Electronically, [facility]/pharmacy #[id number], Partial fill upon patient request if the [...] Display: History and Physical Hospital Authored Date: [id number] [place], [place] PSYCHIATRIC HISTORY ASSESS EXAM NAME: LORETTA CELESTIN : 89 MR#: [id number] PCP: ADMITTED: 12/20/15 DATE OF SERVICE: 12/20/15 HPI - Hosp Psych H P Chief Complaint Pt was sent from [facility] here for hallunication History of Present Illness 24 yo AA Female with known schizophrenia was seen at [facility] for hallucination. Apparently pt has been lived in jail and sent to [facility] for acute exacerbation of her underline schizophrenia. [...] Haloperidol* (Haldol*) 5 MG PO BID [place] Carbonate SR* (Lithobid*) 300 MG PO QDAY liTHIum Carbonate SR* ([place] Carbonate SR*) 450 MG PO 4PM Discontinued Reported Medications Citalopram* (CeleXA*) 40 MG PO QDAY Benztropine* 0.5 MG PO BID buPROPion SR* 150 MG PO [id number] Trazodone* (Desyrel*) 100 MG PO HS RisperiDONE* [...] MG QDAY 12/20 0900 CKD PO [place] Carbonate 300 MG QDAY 12/20 0900 AC PO Polyethylene Glycol 17 GM QDAY 12/20 0900 CKD PO Benztropine Mesylate 1 MG 0900,1700 12/19 1700 AC PO Docusate Sodium 100 MG 0900,1700 12/19 1700 AC PO Haloperidol 5 MG 0900,1700 12/19 1700 AC PO [place] Carbonate 450 MG PM 12/19 1700 AC [...] fullly ambulartory Care Level Complexity of Care [id number] Comprehensive history, comprehensive examination, medical decision making of low complexity, at least 20 minutes at the bedside, patient's floor/ unit. ESigned by: YAS GARZA MD Date:12/21/15 Time:1633 / NOT FOR REDISCLOSURE WITHOUT PATIENT'S INFORMED CONSENT Admission evaluation note * Event Display: Admit Notes Authored Date: [id number] [place], [place] PSYCHIATRIC ADMISSION NOTE NAME: LORETTA CELESTIN : 89 HOSPITAL #: [id number] MR #: [id number] CHART LOC: PCP: DICTATING: MARIA R Robin MD DATE OF ADMISSION: 12/20/15 DATE OF SERVICE: 12/21/15 CHIEF COMPLAINT: This 23-year-old woman was admitted to [facility] on 12/20/15 on a Conditional [...] is living in a jail. Came to [place] with her grandmother in [...] year NAME: LORETTA CELESTIN : 89 HOSP#: [id number] MR#: [id number] CHART LOC: PCP: DICTATING: MARIA R Robin MD PSYCHIATRIC ADMISSION NOTE CONTINUED: unknown. TREATMENT PLAN: Resume outpatient medications, physical exam, collateral contact with community caregivers and social network, safety plan, aftercare plan and observe. 927 T:sn DD:[id number] TD:0745 DT:20151221 TT:0924 JOB:[id number] TORIE MARIA R Robin MD ESigned by: Date:12/22/15 Time:06 NOT FOR REDISCLOSURE WITHOUT PATIENT'S INFORMED CONSENT Patient Care team information Care Team Personnel Name: Dean Rivas RN Position: [facility] RN Member Role: Primary Care Nurse Name: Fatoumata Stokes DO Position: [facility] Primary Care Physician Member Role: PCP Address: Address: [address] [place] [address] Adult & Pediatric Medicine [place], [place] [address] Name: Britt Polanco RN Position: [facility] RN Member Role: Primary Care Nurse Name: Anyi Avendano RN Position: [facility] RN Supv Member Role: Primary Care Nurse Name: Awilda Grider RN Position: [facility] RN Member Role: Primary Care Nurse Name: Chintan Leach DO Position: [facility] Renal MD Member Role: Lifetime Consulting Physician Address: Address: [address] [place], [place] [address] [place], [place] [address] Name: Chandler Ye RN Position: [facility] RN Member Role: Primary Care Nurse Name: Apurva Ji RN Position: [facility] ED RN W/OE and Tasks Member Role: Primary Care Nurse Name: Cordelia Matias RN Position: [facility] AMB Nurse Member Role: Primary Care Nurse Name: Radha Gutierrez Position: [facility] Outreach Member Role: Primary Care Nurse Name: Keenan Vincent RN Position: [facility] SN RN Member Role: Primary Care Nurse Name: Sasha Patricio RN Position: [facility] RN Member Role: Primary Care Nurse Name: Virgie Angel Position: [facility] RN Member Role: Primary Care Nurse Name: Azeb Gusman RN Position: [facility] RN Member Role: Primary Care Nurse Name: Meredith Martinez RN Position: [facility] RN Member Role: Primary Care Nurse Name: Anika Gotti RN Position: [facility] RN Supv Member Role: Primary Care Nurse Name: Justina Walker RN Position: [facility] RN Member Role: Primary Care Nurse Name: Kenia Zuniga RN Position: [facility] PCO w/OE and EZ Script Member Role: Primary Care Nurse Name: Ivone Hidalgo RN Position: [facility] RN Member Role: Primary Care Nurse Name: Mazin Penn MD Position: [facility] Psychiatry MD Member Role: Lifetime Consulting Physician Address: Address: [address] [place] [address] [place] Care Team Related Persons Name: DORITA HERNANDEZ Address: [address] [place] [address] Name: STEW PECK Address: [address] [place] [address] Name: LOUIE CHILD PROTECTION SPECIALISTPETER Address: [address] [place] [address]
--- OUTSIDE RECORDS SUMMARY | 2023-08-16 12:35 | XMS_ITS | Continuity of Care Document ---
Author Name Unknown Organization [facility] Address [address] [place] [id number]- Care Team Providers Care Inspector Process Name Role Phone Fatoumata Stokes DO Primary Care Physician Encounter [facility] Date(s): 12/31/22 - 01/01/[address] [address]- Encounter Diagnosis Visual hallucinations(Final) - 12/31/22 Discharge Disposition: A-D/C Home Attending Physician: Oliver Garcia MD Admitting Physician: Oliver Garcia MD Referring [...] 09/29/22 9:09:00 EST, Route to Pharmacy Electronically, [id number], 163, cm, 09/14/22 8:12:00 EST, Height, 87.9, kg, 09/09/22 12:06:00 EST, Dry Weight Start Date: 09/29/22 Status: Ordered benztropine 1 mg oral tablet 1 mg, 1, tablet, By Mouth, 2 times a day, # 60 tablet, Refills 0, Tot. Refills 0, Maintenance, 09/14/22 13:02:00 EST, Route to Pharmacy Electronically, [facility], 163, cm, 09/14/22 8:12:00 EST, Height, 87.9, kg, 09/09/22 12:06:00 EST, D... Start Date: 09/14/22 Stop Date: 10/14/22 Status: Ordered cetirizine 10 mg oral tablet 1 tablet, By Mouth, Daily, # 30 tablet, 0 Refills, Maintenance, 09/14/22 13:03:00 EST, [facility], 163, cm, 09/14/22 8:12:00 EST, Height, 87.9, kg, 09/09/22 12:06:00 EST, Dry Weight Start Date: 09/14/22 Status: Ordered docusate sodium 100 mg oral capsule 1 capsule, By Mouth, 2 times a day, # 60 capsule, 11 Refills, 10/06/22 16:34:00 EST, [facility]/pharmacy #[id number], 163, cm, 09/14/22 8:12:00 EST, Height, 87.9, kg, 09/09/22 12:06:00 EST, Dry Weight Start Date: 10/06/22 Status: Ordered estradiol 0.1 mg/24 hours twice weekly transdermal film, extended release See Instructions, apply 1 patch Topically every tuesday and , # 24 patch, 0 Refills, Maintenance, 11/24/22 12:36:00 EST, [facility]/pharmacy #[id number], Partial fill upon patient request if the prescription is for a schedule II opioid drug., 162, cm, 11/23... Start Date: 11/24/22 Status: Ordered Estradiol Patch 0.1 mg/24 hours twice weekly transdermal film, extended release See Instructions, APPLY 1 PATCH TOPICALLY EVERY TUESDAY & TUESDAY, # 8 patch, 0 Refills, 09/14/22 13:03:00 EST, [facility], APPLY 1 PATCH TOPICALLY EVERY TUESDAY & TUESDAY, 163,cm, 09/14/22 8:12:00 EST, Height, 87.9, kg, 09/09/22 12:06:... Start Date: 09/14/22 Status: Ordered ferrous sulfate 325 mg oral enteric coated tablet 1, tablet, By Mouth, Every other day, may take with food to minimize abdominal discomfort, # 15 tablet, Refills 0, Tot. Refills 0, 09/14/22 13:04:00 EST, Route to Pharmacy Electronically, [facility], 163, cm, 09/14/22 8:12:00 [...] 0 Refills, Maintenance, 09/14/22 13:05:00 EST, Tablet, [facility], Partial fill upon patient request if the prescription is for a schedule II opioid drug., 163, cm, 09/14/22 8:12:0... Start Date: 09/14/22 Status: Ordered medroxyPROGESTERone 150 mg/mL intramuscular suspension 1 mL, Intramuscular, Every 3 months, # 1 mL, 3 Refills, Soft Stop, 03/13/21 13:05:00 EDT, [facility]/pharmacy #[id number], 164, cm, 03/13/21 9:51:00 EDT, Height, 112, kg, 10/14/20 10:13:00 EST, Dry Weight Start Date: 03/13/21 Status: Ordered olanzapine 2.5 mg oral tablet 2.5 mg, 1, tablet, By Mouth, Daily, PRN, Agitation/Psychosis, # 14 tablet, Refills 1, Tot. Refills 1, Maintenance, Other, 10/16/22 12:36:00 EST, Route to Pharmacy Electronically, [facility]/pharmacy #[id number], Partial fill upon patient request if the prescriptio... Start Date: 10/16/22 Stop Date: 11/13/22 Status: Ordered omeprazole 20 mg oral enteric coated capsule 1 capsule, By Mouth, Daily, # 90 capsule, 0 Refills, [id number], 163, cm, 09/24/21 16:23:00 EST, Height, 112, kg, 10/14/20 10:13:00 EST, Dry Weight Start Date: 03/04/22 Status: Ordered perphenazine 16 mg oral tablet 16 mg, 1, tablet, By Mouth, 2 times a day, take with 4mg tablet for a total dose of 20 mg 2 times daily, # 60 tablet, Refills 0, Tot. Refills 0, Maintenance, 09/14/22 13:06:00 EST, Route to Pharmacy Electronically, [facility], Partial fi... Start Date: 09/14/22 Status: Ordered perphenazine 4 mg oral tablet 4 mg, 1, tablet, By Mouth, 2 times a day, take with 16 mg tablet for a total dose of 20 mg 2 times daily, # 60 tablet, Refills 0, Tot. Refills 0, Maintenance, 09/14/22 13:06:00 EST, Route to PharmacyElectronically, [facility], Partial f... Start Date: 09/14/22 Status: Ordered perphenazine 8 mg oral tablet 8 mg, 1, tablet, By Mouth, Daily, at 12 PM, # 30 tablet, Refills 0, Tot. Refills 0, Maintenance, 09/14/22 13:06:00 EST, Route to Pharmacy Electronically, [facility], Partial fill upon patient request if the prescription is for a schedule... Start Date: 09/14/22 Status: Ordered progesterone 200 mg oral capsule 1 capsule = 200 mg, By Mouth, Daily, for 12 days, To take on the first twelve days of each month., # 12 capsule, 3 Refills, Acute 01/11/23 11:56:00 EDT, 11/24/22 11:56:00 EST, Capsule, [facility]/pharmacy #[id number], Partial fill upon patient request if the presc... Start Date: 11/24/22 Stop Date: 01/11/23 Status: Ordered Senna 8.6 mg oral tablet 8.6 mg, 1, tablet, By Mouth, Daily at bedtime, # 30 tablet, Refills 0, Tot. Refills 0, Maintenance,09/14/22 13:06:00 EST, Route to Pharmacy Electronically, [facility] Tablet, Partial fill upon patient request if the prescription is for... Start Date: 09/14/22 Status: Ordered simethicone 125 mg oral capsule See Instructions, TAKE 1 CAPSULE BY MOUTH THREE TIMES A DAY AFTER MEALS AND AT BEDTIME NEEDED, #48 capsule, 11 Refills, Maintenance, 09/24/22 18:10:00 EST, [facility], 163, cm, 09/14/22 8:12:00 EST, Height, 87.9, kg, 09/09/22 12:06:00 EST, Start Date: 09/24/22 Status: Ordered ZyPREXA 2.5 mg oral tablet 2.5 mg, 1, tablet, By Mouth, Daily at bedtime, # 14 tablet, Refills 0, Tot. Refills 0, Maintenance,10/16/22 11:51:00 EST, Route to Pharmacy Electronically, [facility]/pharmacy #[id number], Partial fill upon patient request if the [...] 1 2 3 Oxygen Saturation [94-100 %] 98 % (01/01/23 12:28 PM) 98 % (01/01/23 5:36 AM) 100 % (12/31/22 7:59 PM) Pulse Rate [55-90 bpm] 84 bpm (01/01/23 12:28 PM) 87 bpm (01/01/23 5:36 AM) 76 bpm (12/31/22 7:59 PM) Blood Pressure [90-138/55-84 mm Hg] 111/71mm Hg (01/01/23 12:28 PM) 98/78mm Hg (01/01/23 5:36 AM) 155/92mm Hg *H* (12/31/22 7:59 PM) Respiratory Rate [16-30 br/min] 18 br/min (01/01/23 12:28 PM) 18 br/min (01/01/23 5:36 AM) 18 br/min (12/31/22 7:59 PM) Temperature [96.8-100.4 DegF] 98.4 DegF (01/01/23 12:28 PM) 98.6 DegF (01/01/23 5:36 AM) 98.5 DegF (12/31/22 7:59 PM) Mode of Delivery (Oxygen) Room air (01/01/23 12:28 PM) Room air (01/01/23 5:36 AM) Room air (12/31/22 7:59 PM) Blood pressure sites Arm, right (01/01/23 12:28 PM) Arm, right (01/01/23 5:36 AM) Arm, right (12/31/22 7:59 PM) Temperature Route Oral (01/01/23 12:28 PM) Oral (01/01/23 5:36 AM) Oral (12/31/22 7:59 PM) Social History Social History Type Response Tobacco Use: 4 or less cigar ettes(less than 1/4 pack)/day in last 30 days. Sex History and physical note * Event Display: History and Physical Hospital Authored Date: [id number] [place], [place] PSYCHIATRIC HISTORY ASSESS EXAM NAME: LORETTA CELESTIN : 89 MR#: [id number] PCP: ADMITTED: 12/20/15 DATE OF SERVICE: 12/20/15 HPI - Hosp Psych H P Chief Complaint Pt was sent from [facility] ER here for hallunication History of Present Illness 24 yo AA Female with known schizophrenia was seen at [facility] for hallucination. Apparently pt has been lived in senior living and sent to [facility] for acute exacerbation of her underline schizophrenia. [...] QDAY Haloperidol* (Haldol*) 5 MG PO BID [place] Carbonate SR* (Lithobid*) 300 MG PO QDAY liTHIum Carbonate SR* ([place] Carbonate SR*) 450 MG PO 4PM Discontinued Reported Medications Citalopram* (CeleXA*) 40 MG PO QDAY Benztropine* 0.5 MG PO BID buPROPion SR* 150 MG PO [id number] Trazodone* (Desyrel*) 100 MG PO HS RisperiDONE* [...] 324 MG QDAY 12/20 0900 CKD PO [place] Carbonate 300 MG QDAY 12/20 0900 AC PO Polyethylene Glycol 17 GM QDAY 12/20 0900 CKD PO Benztropine Mesylate 1 MG 0900,1700 12/19 1700 AC PO Docusate Sodium 100 MG 0900,1700 12/19 1700 AC PO Haloperidol 5 MG 0900,12/19 1700 AC PO [place] Carbonate 450 MG PM 12/19 1700 AC [...] fullly ambulartory Care Level Complexity of Care [id number] Comprehensive history, comprehensive examination, medical decision making of low complexity, at least 20 minutes at the bedside, patient's floor/ unit. ESigned by: YAS GARZA MD Date:12/21/15 Time:1633 / NOT FOR REDISCLOSURE WITHOUT PATIENT'S INFORMED CONSENT Admission evaluation note * Event Display: Admit Notes Authored Date: [place], [place] PSYCHIATRIC ADMISSION NOTE NAME: LORETTA CELESTIN : 89 HOSPITAL #: [id number] MR #: [id number] CHART LOC: PCP: DICTATING: MARIA R Robin MD DATE OF ADMISSION: 12/20/15 DATE OF SERVICE: 12/21/15 CHIEF COMPLAINT: This 23-year-old woman was admitted to [facility] on 12/20/15 on a Conditional Voluntary [...] living in a senior living. Came to [place] with her grandmother in 2013, was very [...] year NAME: LORETTA CELESTIN : 89 HOSP#: [id number] MR#: [id number] CHART LOC: PCP: DICTATING: MARIA R Robin MD PSYCHIATRIC ADMISSION NOTE CONTINUED: unknown. TREATMENT PLAN: Resume outpatient medications, physical exam, collateral contact with community caregivers and social network, safety plan, aftercare plan and observe. 927 T:sn DD:[id number] TD:[id number] DT:[id number] TT:0924 JOB:[id number] MICHELLE/SHANNON MARIA R Robin MD ESigned by: Date:12/22/15 Time:06 NOT FOR REDISCLOSURE WITHOUT PATIENT'S INFORMED CONSENT EKG study * Event Display: EKG Authored Date: * Event Display: ECG 12-Lead Authored Date: Please click on pdf link to open report * Event Display: ECG 12-Lead Authored Date: Ventricular Rate: 76 BPM Atrial Rate: 76 BPM P-R Interval: 158 ms QRS Duration: 82 ms Q-T Interval: 406 ms QTC Calculation(Bazett): 456 ms P [place]: 68 degrees R [place]: 64 degrees T [place]: 44 degrees Sinus rhythm with marked sinus arrhythmia Otherwise normal ECG When compared with ECG of 09-SEP-2022 14:50, No significant change was found Confirmed by TAMRA FARMER MD ([id number]) on 01/01/2023 10:56:09 AM [place]: TAMRA FARMER MD Patient Care team information Care Team Personnel Name: Dean Rivas RN Position: S RN Member Role: Primary Care Nurse Name: Fatoumata Stokes DO Position: [facility] Primary Care Physician Member Role: PCP Address: Address: [address] [place] [address] [facility] [place] [address]- Name: Britt Polanco RN Position: S RN Member Role: Primary Care Nurse Name: Anyi Avendano RN Position: S RN Supv Member Role: Primary Care Nurse Name: Awilda Grider RN Position: S RN Member Role: Primary Care Nurse Name: Chintan Leach DO Position: [facility] Renal MD Member Role: Lifetime Consulting Physician Address: Address: [address] [place], [place] [address] [place] [address]- [place] Name: Chandler Ye RN Position: [facility] RN Member Role: Primary Care Nurse Name: Apurva Ji RN Position: [facility] ED RN W/OE and Tasks Member Role: Primary Care Nurse Name: Cordelia Matias RN Position: [facility] AMB Nurse Member Role: Primary Care Nurse Name: Radha Gutierrez Position: [facility] Outreach Member Role: Primary Care Nurse Name: Keenan Vincent RN Position: [facility] SN RN Member Role: Primary Care Nurse Name: Sasha Patricio RN Position: [facility] RN Member Role: Primary Care Nurse Name: Virgie Angel Position: [facility] RN Member Role: Primary Care Nurse Name: Azeb Gusman RN Position: [facility] RN Member Role: Primary Care Nurse Name: Meredith Martinez RN Position: [facility] RN Member Role: Primary Care Nurse Name: Anika Gotti RN Position: [facility] RN Supv Member Role: Primary Care Nurse Name: Kennedi Roca RN Position: [facility] RN Member Role: Primary Care Nurse Name: Justina Walker RN Position: [facility] RN Member Role: Primary Care Nurse Name: Kenia Zuniga RN Position: [facility] PCO w/OE and EZ Script Member Role: Primary Care Nurse Name: Ivone Hidalgo RN Position: [facility] RN Member Role: Primary Care Nurse Name: Mazin Penn MD Position: [facility] Psychiatry MD Member Role: Lifetime Consulting Physician Address: Address: [address] [place] [address]- [place] Name: Melina Arnold RN Position: [facility] ED RN W/OE and Tasks Member Role: Patient Care Provider Name: Oliver Garcia MD Position: [facility] ED Medicine MD Member Role: Admitting Physician Address: Address: [address] [place] [address]- [place] Name: Mariely Page MD Position: [facility] Resident Member Role: ED Resident Address: Address: [address] [place] [id number]- [place] Care Team Related Persons Name: DORITA HERNANDEZ Address: home [address] [place] [address] Name: STEW PECK Address: home [address] [place] [address] Name: LOUIE SASH REPAIRER, PETER Address: home [address] [place] [id number]
--- OUTSIDE RECORDS SUMMARY | 2023-08-16 12:35 | XMS_ITS | Continuity of Care Document ---
Author Name Unknown Organization [facility] Address [address] [place] [address]- Care Team Providers Care Manufacturing Scheduler Name Role Phone Fatoumata Stokes DO Primary Care Physician Encounter [facility] Date(s): 03/02/23 - 03/03/[address] [address]- Encounter Diagnosis Suicidal ideation(Final) - 03/02/23 Discharge Disposition: A-D/C Home Attending Physician: Lacie Celeste MD Admitting Physician: Lacie Celeste MD Referring Physician: Not on Staff, Referring [...] 09/29/22 9:09:00 EST, Route to Pharmacy Electronically, [id number], 163, cm, 09/14/22 8:12:00 EST, Height, 87.9, kg, 09/09/22 12:06:00 EST, Dry Weight Start Date: 09/29/22 Status: Ordered benztropine 1 mg oral tablet 1 mg, 1, tablet, By Mouth, 2 times a day, # 60 tablet, Refills 0, Tot. Refills 0, Maintenance, 09/14/22 13:02:00 EST, Route to Pharmacy Electronically, [facility], 163, cm, 09/14/22 8:12:00 EST, Height, 87.9, kg, 09/09/22 12:06:00 EST, D... Start Date: 09/14/22 Stop Date: 10/14/22 Status: Ordered cetirizine 10 mg oral tablet 1 tablet, By Mouth, Daily, # 30 tablet, 0 Refills, Maintenance, 09/14/22 13:03:00 EST, [facility], 163, cm, 09/14/22 8:12:00 EST, Height, 87.9, kg, 09/09/22 12:06:00 EST, Dry Weight Start Date: 09/14/22 Status: Ordered docusate sodium 100 mg oral capsule 1 capsule, By Mouth, 2 times a day, # 60 capsule, 11 Refills, 10/06/22 16:34:00 EST, [facility]/pharmacy #[id number], 163, cm, 09/14/22 8:12:00 EST, Height, 87.9, kg, 09/09/22 12:06:00 EST, Dry Weight Start Date: 10/06/22 Status: Ordered estradiol 0.1 mg/24 hours twice weekly transdermal film, extended release See Instructions, apply 1 patch Topically every tuesday and , # 24 patch, 0 Refills, Maintenance, 11/24/22 12:36:00 EST, [facility]/pharmacy #[id number], Partial fill upon patient request if the prescription is for a schedule II opioid drug., 162, cm, 11/23... Start Date: 11/24/22 Status: Ordered Estradiol Patch 0.1 mg/24 hours twice weekly transdermal film, extended release See Instructions, APPLY 1 PATCH TOPICALLY EVERY TUESDAY & TUESDAY, # 8 patch, 0 Refills, 09/14/22 13:03:00 EST, [facility], APPLY 1 PATCH [...] 09/14/22 13:04:00 EST, Route to Pharmacy Electronically, [facility], 163, cm, 09/14/22 8:12:00 [...] 0 Refills, Maintenance, 09/14/22 13:05:00 EST, Tablet, [facility], Partial fill upon [...] 10/16/22 12:36:00 EST, Route to Pharmacy Electronically, [facility]/pharmacy #[id number], Partial fill upon patient request if the prescriptio... Start Date: 10/16/22 Stop Date: 11/13/22 Status: Ordered omeprazole 20 mg oral enteric coated capsule 1 capsule, By Mouth, Daily, # 90 capsule, 0 Refills, [id number], 163, cm, 09/24/21 16:23:00 EST, Height, 112, [...] EST, [facility], Partial fi... Start Date: 09/14/22 Status: Ordered perphenazine 4 mg oral tablet 4 mg, 1, tablet, By Mouth, 2 times a day, take with 16 mg tablet for a total dose of 20 mg 2 times daily, # 60 tablet, Refills 0, Tot. Refills 0, Maintenance, 09/14/22 13:06:00 EST, [facility], [facility] f... Start Date: 09/14/22 Status: Ordered perphenazine 8 mg oral tablet 8 mg, 1, tablet, By Mouth, Daily, at 12 PM, # 30 tablet, Refills 0, Tot. Refills 0, Maintenance, 09/14/22 13:06:00 EST, Route to Pharmacy Electronically, [facility], Partial fill upon patient request if the prescription is for a schedule... Start Date: 09/14/22 Status: Ordered Senna 8.6 mg oral tablet 8.6 mg, 1, tablet, By Mouth, Daily at bedtime, # 30 tablet, Refills 0, Tot. Refills 0, Maintenance,09/14/22 13:06:00 EST, Route to Pharmacy Electronically, [facility] 3 Tablet, Partial fill upon patient request if the prescription is for... Start Date: 09/14/22 Status: Ordered simethicone 125 mg oral capsule See Instructions, TAKE 1 CAPSULE BY MOUTH THREE TIMES A DAY AFTER MEALS AND AT BEDTIME NEEDED, #48 capsule, 11 Refills, Maintenance, 09/24/22 18:10:00 EST, [id number], 163, cm, 09/14/22 8:12:00 EST, Height, 87.9, kg, 09/09/22 12:06:00 EST, Start Date: 09/24/22 Status: Ordered ZyPREXA 2.5 mg oral tablet 2.5 mg, 1, tablet, By Mouth, Daily at bedtime, # 14 tablet, Refills 0, Tot. Refills 0, Maintenance,10/16/22 11:51:00 EST, Route to Pharmacy Electronically, [facility]/pharmacy #[id number], Partial fill upon patient request if the [...] 3 Oxygen Saturation [94-100 %] 100 % (03/03/23 10:35 AM) 100 % (03/02/23 7:30 PM) 100 % (03/02/23 2:30 PM) Pulse Rate [55-90 bpm] 77 bpm (03/03/23 10:35 AM) 78 bpm (03/02/23 7:30 PM) 81 bpm (03/02/23 2:30 PM) Blood Pressure [90-138/55-84 mm Hg] 135/81mm Hg (03/03/23 10:35 AM) 138/72mm Hg (03/02/23 7:30 PM) 137/70mm Hg (03/02/23 2:30 PM) Respiratory Rate [16-30 br/min] 17 br/min (03/03/23 10:35 AM) 18 br/min (03/02/23 7:30 PM) 16 br/min (03/02/23 2:30 PM) Temperature [96.8-100.4 DegF] 98 DegF (03/03/23 10:35 AM) 98.0 DegF (03/02/23 7:30 PM) 97.9 DegF (03/02/23 2:30 PM) Mode of Delivery (Oxygen) Room air (03/03/23 10:35 AM) Room air (03/02/23 7:30 PM) Room air (03/02/23 2:30 PM) Blood pressure sites Arm, right (03/03/23 10:35 AM) Arm, right (03/02/23 7:30 PM) Arm, right (03/02/23 2:30 PM) Temperature Route Oral (03/03/23 10:35 AM) Oral (03/02/23 7:30 PM) Oral (03/02/23 2:30 PM) Social History Social History Type Response Tobacco Use: 4 or less cigar ettes(less than 1/4 pack)/day in last 30 days. Sex History and physical note * Event Display: History and Physical Hospital Authored Date: [id number] [place], [place] PSYCHIATRIC HISTORY ASSESS EXAM NAME: LORETTA CELESTIN : 89 MR#: [id number] PCP: ADMITTED: 12/20/15 DATE OF SERVICE: 12/20/15 HPI - Hosp Psych H P Chief Complaint Pt was sent from [facility] here for hallunication History of Present Illness 24 yo AA Female with known schizophrenia was seen at [facility] for hallucination. Apparently pt has been lived in long-term and sent to [facility] for acute exacerbation of her underline schizophrenia. [...] QDAY Haloperidol* (Haldol*) 5 MG PO BID Neosho Carbonate SR* (Lithobid*) 300 MG PO QDAY liTHIum Carbonate SR* (Neosho Carbonate SR*) 450 MG PO 4PM Discontinued Reported Medications Citalopram* (CeleXA*) 40 MG PO QDAY Benztropine* 0.5 MG PO BID buPROPion SR* 150 MG PO [id number] Trazodone* (Desyrel*) 100 MG PO HS RisperiDONE* [...] 324 MG QDAY 12/20 0900 CKD PO Neosho Carbonate 300 MG QDAY 12/20 0900 AC PO Polyethylene Glycol 17 GM QDAY 12/20 0900 CKD PO Benztropine Mesylate 1 MG 0900,1700 12/19 1700 AC PO Docusate Sodium 100 MG 0900,1700 12/19 1700 AC PO Haloperidol 5 MG 0900,17012/19 1700 AC PO Neosho Carbonate 450 MG PM 12/19 1700 AC [...] fullly ambulartory Care Level Complexity of Care [id number] Comprehensive history, comprehensive examination, medical decision making of low complexity, at least 20 minutes at the bedside, patient's floor/ unit. ESigned by: YAS GARZA MD Date:12/21/15 Time:1633 / NOT FOR REDISCLOSURE WITHOUT PATIENT'S INFORMED CONSENT Admission evaluation note * Event Display: Admit Notes Authored Date: [id number] [place], [place] PSYCHIATRIC ADMISSION NOTE NAME: LORETTA CELESTIN : 89 HOSPITAL #: [id number] MR #: [id number] CHART LOC: PCP: DICTATING: MARIA R Robin MD DATE OF ADMISSION: 12/20/15 DATE OF SERVICE: 12/21/15 CHIEF COMPLAINT: This 23-year-old woman was admitted to [facility] on 12/20/15 on a Conditional Voluntary application because of suicidal ideation. HISTORY OF PRESENT ILLNESS: The patient has been treated for schizoaffective disorder depressed type, posttraumatic stress disorder, intellectual disability and alcohol syndrome with multiple hospitalizations for self-harming behavior and suicidal ideation. She presented to Crisis Services from her long-term reporting that she was having urges to [...] how they had evolved. Staff at the long-term where she lives reported her as unusually [...] HISTORY: The patient is living in a long-term. Came to [place] with her grandmother in 2013, was very [...] year NAME: LORETTA CELESTIN : 89 HOSP#: [id number] MR#: [id number] CHART LOC: PCP: DICTATING: MARIA R Robin MD PSYCHIATRIC ADMISSION NOTE CONTINUED: unknown. TREATMENT PLAN: Resume outpatient medications, physical exam, collateral contact with community caregivers and social network, safety plan, aftercare plan and observe. 927 T:sn DD:[id number] TD:0745 DT:[id number] TT:0924 JOB:[id number] TORIE MARIA R Robin MD ESigned by: Date:12/22/15 Time:0643 NOT FOR REDISCLOSURE WITHOUT PATIENT'S INFORMED CONSENT EKG study * Event Display: EKG Authored Date: * Event Display: ECG 12-Lead Authored Date: Please click on pdf link to open report * Event Display: ECG 12-Lead Authored Date: Ventricular Rate: 74 BPM Atrial Rate: 74 BPM P-R Interval: 170 ms QRS Duration: 82 ms Q-T Interval: 412 ms QTC Calculation(Bazett): 457 ms P [place]: 39 degrees R [place]: 60 degrees T [place]: 26 degrees Normal sinus rhythm with sinus arrhythmia Normal ECG When compared with ECG of 31-DEC-2022 20:06, No significant change was found Confirmed by TAMRA FARMER MD ([id number]) on 03/02/2023 4:47:15 PM [place]: TAMRA FARMER MD Note * Tian Zelaya MD: PERFORM Event Display: Patient Education Leaflets Authored Date: Depression ?? [id number] Depression Depression is a very common mental [...] medicines you take. This includes prescription and [id number] medicines. It includes vitamins and herbal supplements. [...] An online chat option is also available. [employer] is free and available 18/04. 988 counselors will work with 911 to help you get the care you need. Call 988 if you: ??? Have suicidal thoughts, a suicide plan, and a way to carry out the plan ??? Have serious thoughts of hurting someone else ??? Have trouble breathing ??? Are??very confused ??? Feel very drowsy or have??trouble awakening ??? Faint ??? Have new chest pain that becomes more severe, lasts longer, or spreads into your shoulder, arm, neck, jaw, or back [...] help ?? Last Reviewed Date: 2021 ?? [id number] [employer]. All rights reserved. This information is not intended as a substitute for professional medical care. Always follow your healthcare professional's instructions. ?? Patient Care team information Care Team Personnel Name: Dean Rivas RN Position: [facility] RN Member Role: Primary Care Nurse Name: Fatoumata Stokes DO Position: [facility] Physician - Primary Care Member Role: PCP Address: Address: [address] [place] [address] Adult [facility] [place] [address]- Name: Britt Polanco RN Position: [facility] RN Member Role: Primary Care Nurse Name: Anyi Avendano RN Position: [facility] STEPHAN Supv Member Role: Primary Care Nurse Name: Awilda Grider RN Position: S RN Member Role: Primary Care Nurse Name: Chintan Leach DO Position: [facility] Renal MD Member Role: Lifetime Consulting Physician Address: Address: [address] [place] [address] [address] [facility] [place] [place] [address]- [place] Name: Chandler Ye RN [facility] Role: Lifetime Consulting Physician Address: Address: [address] [place] [place] [address]- Name: *[facility], ED Attending Position: [facility] ED Attendings Patient Name: Junior Means Position: [facility] ED TA [facility] Member Role: ED Associate Name: Melinda Denney RN Position: [facility] ED RN W/OE and Tasks Member Role: Patient Care Provider Name: Lacie Celeste MD Position: [facility] ED Medicine MD Member Role: Admitting Physician Address: Address: [address] [place] [address]- Care Team Related Persons Name: DORITA HERNANDEZ Address: home [address] [place] [address] Name: STEW PECK Address: home [address] [place] [address] Name: LOUIE MAIL [employer]ER Address: home [address] [place] [address]
--- OUTSIDE RECORDS SUMMARY | 2023-08-16 12:35 | XMS_ITS | Continuity of Care Document ---
Author Name Unknown Organization [facility] Address [address] [place] [id number]- Care Team Providers Care Supervisor Loading Name Role Phone Fatoumata Stokes DO Primary Care Physician Encounter [facility] Date(s): 12/02/22 - 12/03/[address] [address]- Discharge Disposition: A-D/C Home Attending Physician: Lacie [...] 09/29/22 9:09:00 EST, Route to Pharmacy Electronically, [id number], 163, cm, 09/14/22 8:12:00 EST, Height, 87.9, [...] Maintenance, 09/14/22 13:03:00 EST, [facility], 163, cm, 09/14/22 8:12:00 EST, Height, 87.9, kg, 09/09/22 12:06:00 EST, Dry Weight Start Date: 09/14/22 Status: Ordered docusate sodium 100 mg oral capsule 1 capsule, By Mouth, 2 times a day, # 60 capsule, 11 Refills, 10/06/22 16:34:00 EST, [facility]/pharmacy #[id number], 163, cm, 09/14/22 8:12:00 EST, Height, 87.9, kg, 09/09/22 12:06:00 EST, Dry Weight Start Date: 10/06/22 Status: Ordered estradiol 0.1 mg/24 hours twice weekly transdermal film, extended release See Instructions, apply 1 patch Topically every tuesday and , # 24 patch, 0 Refills, Maintenance, 11/24/22 12:36:00 EST, [facility]/pharmacy #[id number], Partial fill [...] 10/16/22 12:36:00 EST, Route to Pharmacy Electronically, [facility]/pharmacy #[id number], Partial fill upon patient request if the prescriptio... Start Date: 10/16/22 Stop Date: 11/13/22 Status: Ordered omeprazole 20 mg oral enteric coated capsule 1 capsule, By Mouth, Daily, # 90 capsule, 0 Refills, [id number], 163, cm, 09/24/21 16:23:00 EST, Height, 112, kg, 10/14/20 10:13:00 EST, Dry Weight Start Date: 03/04/22 Status: Ordered perphenazine 16 mg oral tablet 16 mg, 1, tablet, By Mouth, 2 times a day, take with 4mg tablet for a total dose of 20 mg 2 times daily, # 60 tablet, Refills 0, Tot. Refills 0, Maintenance, 09/14/22 13:06:00 EST, Route to Pharmacy Electronically, [facility] 3, Partial fi... Start Date: 09/14/22 Status: Ordered perphenazine 4 mg oral tablet 4 mg, 1, tablet, By Mouth, 2 times a day, take with 16 mg tablet for a total dose of 20 mg 2 times daily, # 60 tablet, Refills 0, Tot. Refills 0, Maintenance, 09/14/22 13:06:00 EST, Route to PharmacyElectronically, [facility] 3, Partial f... Start Date: 09/14/22 Status: Ordered perphenazine 8 mg oral tablet 8 mg, 1, tablet, By Mouth, Daily, at 12 PM, # 30 tablet, Refills 0, Tot. Refills 0, Maintenance, 09/14/22 13:06:00 EST, Route to Pharmacy Electronically, [facility] 3, Partial fill upon patient request if the prescription is for a schedule... Start Date: 09/14/22 Status: Ordered progesterone 200 mg oral capsule 1 capsule = 200 mg, By Mouth, Daily, for 12 days, To take on the first twelve days of each month., # 12 capsule, 3 Refills, Acute 01/11/23 11:56:00 EDT, 11/24/22 11:56:00 EST, Capsule, [facility]/pharmacy #[id number], Partial fill upon patient request if the presc... Start Date: 11/24/22 Stop Date: 01/11/23 Status: Ordered Senna 8.6 mg oral tablet 8.6 mg, 1, tablet, By Mouth, Daily at bedtime, # 30 tablet, Refills 0, Tot. Refills 0, Maintenance,09/14/22 13:06:00 EST, Route to Pharmacy Electronically, [facility] Tablet, Partial fill upon patient request if the prescription is for... Start Date: 09/14/22 Status: Ordered simethicone 125 mg oral capsule See Instructions, TAKE 1 CAPSULE BY MOUTH THREE TIMES A DAY AFTER MEALS AND AT BEDTIME NEEDED, #48 capsule, 11 Refills, Maintenance, 09/24/22 18:10:00 EST, [id number], 163, cm, 09/14/22 8:12:00 EST, Height, 87.9, kg, 09/09/22 12:06:00 EST, Start Date: 09/24/22 Status: Ordered ZyPREXA 2.5 mg oral tablet 2.5 mg, 1, tablet, By Mouth, Daily at bedtime, # 14 tablet, Refills 0, Tot. Refills 0, Maintenance,10/16/22 11:51:00 EST, Route to Pharmacy Electronically, [facility]/pharmacy #[id number], Partial fill upon patient request if the [...] Exam Date Time Procedure Performing Provider Status 12/02/22 6:50 PM Pelvis 1 or 2 Views More Bonilla; Auth (Verified) Notes: (Pelvis 1 or 2 Views) Reason For Exam: Pain RESULT: Pelvis 1 or 2 Views Pelvis 1 or 2 Views Hx of Present Illness: comes in from snf with complaints of hip pain. onset 2 months. statespain with urination; Reason: Pain. COMPARISON: None. FINDINGS: There is no fracture or dislocation. Normal hips and sacroiliac joints. Normal soft tissues. IMPRESSION: Normal. WSN: [id number] Ordering Physician: Marce Lopez Dictated By: Mady Reyes MD Dictated Date/Time: 12/02/22 6:52 pm Reviewed By: Mady Reyes MD Signed By: Mady Reyes MD Signed Date/Time: 12/02/22 6:52 pm Transcribed By: CSStefan Transcribed Date/Time: 12/02/22 6:50 pm Vital Signs Most recent to oldest [Reference Range]: 1 2 Oxygen Saturation [94-100 %] 98 % (12/02/22 11:37 PM) 98 % (12/02/22 6:37 PM) Pulse Rate [55-90 bpm] 74 bpm (12/02/22 11:37 PM) Blood Pressure [90-138/55-84 mm Hg] 106/ 74mm Hg (12/02/22 11:37 PM) 143/92mm Hg *H* (12/02/22 6:37 PM) Respiratory Rate [16-30 br/min] 20 br/mi n (12/02/22 11:37 PM) 19 br/min (12/02/22 6:37 PM) Temperature [96.8-100.4 DegF] 98.2 DegF (12/02/22 11:37 PM) 98.2 DegF (12/02/22 6:37 PM) Mode of Delivery (Oxygen) Room air (12/02/22 11:37 PM) Room air (12/02/22 6:37 PM) Blood pressure sites Arm, right (12/02/22 11:37 PM) Temperature Route Oral (12/02/22 11:37 PM) Oral (12/02/22 6:37 PM) Social History Social History Type Response Tobacco Use: 4 or less cigar ettes(less than 1/4 pack)/day in last 30 days. Sex History and physical note * Event Display: History and Physical Hospital Authored Date: [id number] [place], [place] PSYCHIATRIC HISTORY ASSESS EXAM NAME: LORETTA CELESTIN : 89 MR#: [id number] PCP: ADMITTED: 12/20/15 DATE OF SERVICE: 12/20/15 HPI - Hosp Psych H P Chief Complaint Pt was sent from [facility] ER here for hallunication History of Present Illness 24 yo AA Female with known schizophrenia was seen at [facility] ER for hallucination. Apparently pt has been lived in snf and [facility] QDAY Haloperidol* (Haldol*) 5 MG PO BID [place] Carbonate SR* (Lithobid*) 300 MG PO QDAY liTHIum Carbonate SR* ([place] Carbonate SR*) 450 MG PO 4PM Discontinued Reported Medications Citalopram* (CeleXA*) 40 MG PO QDAY Benztropine* 0.5 MG PO BID buPROPion SR* 150 MG PO [id number] Trazodone* (Desyrel*) 100 MG PO HS RisperiDONE* [...] 324 MG QDAY 12/20 0900 CKD PO [place] Carbonate 300 MG QDAY 12/20 09 AC PO Polyethylene Glycol 17 GM QDAY 12/20 899 CKD PO Benztropine Mesylate 1 MG 09,12/19 1700 AC PO Docusate Sodium 100 MG 09,12/19 1700 AC PO Haloperidol 5 MG 0900,12/19 1700 AC PO [place] Carbonate 450 MG PM 12/19 1700 AC [...] fullly ambulartory Care Level Complexity of Care [id number] Comprehensive history, comprehensive examination, medical decision making of low complexity, at least 20 minutes at the bedside, patient's floor/ unit. ESigned by: YAS GARZA MD Date:12/21/15 Time:1633 / NOT FOR REDISCLOSURE WITHOUT PATIENT'S INFORMED CONSENT Admission evaluation note * Event Display: Admit Notes Authored Date: [id number] [place], [place] PSYCHIATRIC ADMISSION NOTE NAME: LORETTA CELESTIN : 89 HOSPITAL #: [id number] MR #: [id number] CHART LOC: PCP: DICTATING: MARIA R Robin MD DATE OF ADMISSION: 12/20/15 DATE OF SERVICE: 12/21/15 CHIEF COMPLAINT: This 23-year-old woman was admitted to [facility] on 12/20/15 on a Conditional [...] is living in a snf. Came to [place] with her grandmother in [...] year NAME: LORETTA CELESTIN : 89 HOSP#: [id number] MR#: [id number] CHART LOC: PCP: DICTATING: MARIA R Robin MD PSYCHIATRIC ADMISSION NOTE CONTINUED: unknown. TREATMENT PLAN: Resume outpatient medications, physical exam, collateral contact with community caregivers and social network, safety plan, aftercare plan and observe. 927 T:sn DD:[id number] TD:0745 DT:[id number] TT:0924 JOB:[id number] MICHELLE/SHANNON MARIA R Robin MD ESigned by: Date:12/22/15 Time:642 NOT FOR REDISCLOSURE WITHOUT PATIENT'S INFORMED CONSENT Note * Marce Lopez DO: PERFORM, SIGN, VERIFY Event Display: Patient Education Handout Authored Date: [id number] XR Pelvis 1 or 2 Views * BHSPowerscribe , CIS S: TRANSCRIBE Mady Reyes MD: VERIFY Event Display: Result: Authored Date: [id number] Pelvis 1 or 2 Views Hx of Present Illness: comes in from snf with complaints of hip pain. onset 2 months. statespain with urination; Reason: Pain. COMPARISON: None. FINDINGS: There is no fracture or dislocation. Normal hips and sacroiliac joints. Normal soft tissues. IMPRESSION: Normal. WSN: [id number] Ordering Physician: Marce Lopez Dictated By: Mady Reyes MD Dictated Date/Time: 12/02/22 6:52 pm Reviewed By: Mady Reyes MD Signed By: Mady Reyes MD Signed Date/Time: 12/02/22 6:52 pm Transcribed By: TOMMY Transcribed Date/Time: 12/02/22 6:50 pm Patient Care team information Care Team Personnel Name: Dean Rivas RN Position: [facility] RN Member Role: Primary Care Nurse Name: Fatoumata Stokes DO Position: [facility] Primary Care Physician Member Role: PCP Address: Address: [address] [place] [address] Adult [facility] [place] [address]- [place] Name: Britt Polanco RN Position: [facility] RN Member Role: Primary Care Nurse Name: Anyi Avendano RN Position: [facility] RN Supv Member Role: Primary Care Nurse Name: Awilda Grider RN Position: [facility] RN Member Role: Primary Care Nurse Name: Chintan Leach DO Position: [facility] Renal MD Member Role: Lifetime Consulting Physician Address: Address: [address] [place], [place] [address] [place] [address]- Name: Chandler Ye RN Position: [facility] RN Member Role: Primary Care Nurse Name: Apurva Ji RN Position: [facility] ED RN W/OE and Tasks Member Role: Primary Care Nurse Name: Cordelia Matias RN Position: [facility] AMB Nurse Member Role: Primary Care Nurse Name: Radha Gutierrez Position: [facility] Outreach Member Role: Primary Care Nurse Name: Keenan Vincent RN Position: [facility] SN RN Member Role: Primary Care Nurse Name: Sasha Patricio RN Position: [facility] RN Member Role: Primary Care Nurse Name: Virgie Angel Position: [facility] RN Member Role: Primary Care Nurse Name: Azeb Gusman RN Position: [facility] RN Member Role: Primary Care Nurse Name: Meredith Martinez RN Position: [facility] RN Member Role: Primary Care Nurse Name: Anika Gotti RN Position: [facility] RN Supv Member Role: Primary Care Nurse Name: Kennedi Roca RN Position: [facility] RN Member Role: Primary Care Nurse Name: Justina Walker RN Position: [facility] RN Member Role: Primary Care Nurse Name: Kenia Zuniga RN Position: [facility] PCO w/OE and EZ Script Member Role: Primary Care Nurse Name: Ivone Hidalgo RN Position: [facility] RN Member Role: Primary Care Nurse Name: Mazin Penn MD Position: [facility] Psychiatry MD Member Role: Lifetime Consulting Physician Address: Address: [address] [place] [address]- Name: Marce Lopez DO Position: [facility] Resident Member Role: ED Resident Address: Address: [address] [facility] [place] [address]- Name: Lacie Celeste MD Position: [facility] ED Medicine MD Member Role: ED Attending Physician Address: Address: [address] [place] [address]- Name: Fatoumata Guallpa Position: [facility] ED RN W/OE and Tasks Member Role: Patient Care Provider Care Team Related Persons Name: STEW PECK Address: [address] [place] [address] Name: GROUP GILBERT PETER Address: [address] [place] [address] Name: PRISCA WESTON Address: [address] [place] [address]
--- NOTE | 2023-08-16 13:05 | P.CONHOSP_ITS ---
History of Present Illness Data of Consult Service Date: 08/16/23 Requesting physician: Kevin Cooper Primary Care Provider: Fatoumata Stokes DO HPI Reason for consult: medical H&P 32-year-old female with history iron deficiency anemia, ADHD, schizoaffective disorder bipolar type, reported unspecified seizure disorder, chronic constipation who is a former smoker admitted to Psychiatry from [facility] ED with consult placed hospitalist service for medical H& P. The patient is a limited historian but does deny any acute complaints. Apparently in the ED, she had reported yellow vaginal discharge. However, patient denies this to me. Denies any fevers, chills, dysuria, hematuria, increased urinary frequency, abdominal pain, or unsafe sexual practices. She lives in a residential and apparently has had increased aggression, stephany, perceptual disturbances with medication noncompliance and decreased ADLs. On review of ED chart, hematology studies show a normocytic anemia with H/H 9.4/31.7%, appears consistent with baseline. Renal function normal, electrolyte levels normal though potassium was borderline low and was repleted with potassium chloride orally. U tox was negative. Vitals were stable except for slightly elevated at 152/90. EKG showed NSR, rate 77, no ST/T-wave abnormalities. Denies alcohol use or illicit drug use. Review of Systems Review of Systems: General: No fevers, malaise, unintentional weight loss HEENT: No blurred vision, diplopia. No sore throat, nasal congestion, rhinorrhea, sinus pain, ear pain Cardiovascular: No chest pain, palpitations, or leg edema Respiratory: No shortness of breath, wheezing, cough GI: No abdominal pain, nausea, vomiting, diarrhea, constipation, melena, hematochezia : No dysuria, hematuria, increased urinary frequency, decreased urinary output MSK: No myalgia, back pain Neuro: No headaches, weakness, paresthesias Skin: No rashes or lesions [facility] Medical History (Updated 08/16/23 @ 13:16 by TAWANA Ramirez) Former smoker History of seizure disorder ADHD Iron deficiency anemia alcohol syndrome Schizoaffective disorder Household Members: Other Household Members Other:: residential Housing: Other Housing Other:: residential Do you presently have visiting nurse or other home services: No Alcohol intake: never Patient Tobacco Use Status: Never used Tobacco e-Cigarette/Vaping Use: Never Used Second Hand Smoke Exposure: No Advance Directives: No Advance Directives Information Provided: Yes service: No Sexual orientation: Unable to collect Meds Allergies Allergy/AdvReac Type Severity Reaction Status Date / Time clozapine Allergy Unknown Verified 06/30/22 06:36 metronidazole [From Flagyl] Allergy Unknown Verified 06/30/22 06:36 paliperidone Allergy Unknown Verified 06/30/22 06:36 Active Medications: Current Medications Acetaminophen (Acetaminophen 325 Mg Tablet) 650 mg PO Q6H PRN PRN Reason: Headache/Pain Mild Scale (1-3) Al Hydroxide/Mg Hydroxide (Magnesium Hydrox/Alum Hydrox 30 Ml Oral.Susp) 30 ml PO Q6H PRN PRN Reason: Heartburn/Nausea Hydroxyzine HCl (Hydroxyzine Hcl 25 Mg Tablet) 25 mg PO Q6H PRN PRN Reason: Anxiety Magnesium Hydroxide (Milk Of Magnesia 30 Ml Oral.Susp) 30 ml PO DAILY PRN PRN Reason: Constipation Nicotine Polacrilex (Nicotine Polacrilex 2 Mg Gum) 4 mg BUCCAL Q2H PRN PRN Reason: Nicotine Cravings Trazodone HCl (Trazodone Hcl 50 Mg Tablet) 50 mg PO BEDTIME MRX1 PRN PRN Reason: Insomnia Physical Exam Vital Signs and Narrative: Constitutional - Awake and Alert, No apparent distress Eyes - PERRLA, EOMI Cardiovascular - S1S2, RRR, No edema Respiratory - Normal lung expansion, Normal respiratory effort, No respiratory distress, CTA bilaterally Gastrointestinal - NT / ND; +BS; No rebound or guarding Extremities - no calf tenderness bilaterally, no swelling Musculoskeletal - Normal inspection, normal ROM Skin - Warm/Dry Neurological - Alert & oriented x3, CN II-XII in tact, 5/5 strength BUE and BLE Psychological - flat affect Assessment and Plan (1) Routine medical exam: Status: Acute (2) Vaginal discharge: Status: Acute Plan 32-year-old female with history iron deficiency anemia, ADHD, schizoaffective disorder bipolar type, reported unspecified seizure disorder, chronic constipation who is a former smoker admitted to Psychiatry from [facility] ED with consult placed hospitalist service for medical H& P. #Schizoaffective d/o -plan per psychiatry #Previously reported yellow vaginal discharge -currenlty denies. denies unsafe sexual practices -Check ua/uc, gonorrhea and chlamydia pcr #Chronic normocytic anemia- presumed iron deficiency given history ferrous sulfate usage, though could be thalassemia -H/H above transfusion threshold -check iron profile in am -resume ferrous sulfate to be administered with vitamin c for better absorption #Reported unspecified seizure disorder -from [facility] record -no reported seizure activity and not on any antiepilectic medications -monitor Thank you for allowing me to participate in this consult. Will follow for results. Please do not hesitate to call for further questions or for any acute medical issues
[2023-08-16 13:06] VITALS: BP 137/92; PULSE 76; TEMP 36.6; O2SAT 97
[2023-08-16] MEDS: hydrOXYzine HCL 25 MG TABLET PO (14:40)
[2023-08-16] MEDS: OLANZapine ODT 10 MG TAB.RAPDIS TRANSLINGU (15:36)
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
[2023-08-16] MEDS: Benztropine Mesylate 1 MG TABLET PO (21:09)
[2023-08-16] MEDS: Prazosin HCL 1 MG CAPSULE PO (21:09)
[2023-08-16] MEDS: traZODone HCL 50 MG TABLET PO (21:09)
[2023-08-16] MEDS: OLANZapine 10 MG TABLET PO (21:12)
[2023-08-16 22:45] LABS: Appearance Urine Clear; Color Urine Yellow; Glucose Urine UA Negative (Negative); Leukocyte Esterase Urine Negative (Negative); Nitrite Urine Negative (Negative); PH 5.5 (5.0-9.0); Urine Blood Negative (Negative); Urine Ketones Negative (Negative); Urine Protein Negative (Neg-Trace)
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
[2023-08-17 12:02] VITALS: BP 130/74; PULSE 100; RESP 18; TEMP 36.1; O2SAT 100
[2023-08-17] MEDS: Ascorbic Acid 250 MG TABLET PO (12:03)
[2023-08-17] MEDS: Ferrous Sulfate 324 MG TABLET.DR PO (12:03)
[2023-08-17] MEDS: Benztropine Mesylate 1 MG TABLET PO ×2 (12:04→21:48)
[2023-08-17] MEDS: OLANZapine 5 MG TABLET PO (12:04)
[2023-08-17 12:14] LABS: MANUAL DIFF FLAG NO
[2023-08-17 12:19] LABS: Eosinophils Absolute Auto 0.2 X10*3/uL (0.0-0.4); Eosinophils Percent Auto 4.6 % (0-4); Hemoglobin 10.8 g/dl (12.0-16.0); Imm Gran Abs Auto 0.01 X10*3/uL (0.00-0.03); Imm Gran Pct Auto 0.2 % (0.0-0.4); Lymphocytes Absolute Auto 1.7 X10*3/uL (1.2-4.9); Lymphocytes Percent Auto 41.5 % (20-40); Mean Corpuscular Hemoglobin 24.8 pg (27.0-33.0); Mean Corpuscular Volume 82.8 fL (80.0-98.0); Monocytes Absolute Auto 0.2 X10*3/uL (0.1-1.2); Monocytes Percent Auto 5.3 % (2-11); Neutrophils Percent Auto 47.4 % (45-73); Platelet Count 233 X10*3/uL (160-400); Red Blood Count 4.35 X10*6/uL (4.20-5.50); Red Cell Distribution Width 14.6 % (11.0-16.0); White Blood Count 4.1 X10*3/uL (4.8-10.8)
[2023-08-17 12:24] LABS: Estimated Average Glucose 100 mg/dL; Hemoglobin A1c % 5.1 % (<6.0)
[2023-08-17 12:38] LABS: Alanine Aminotransferase 9 U/L (0-31); Albumin Level 4.2 g/dL (3.5-5.0); Alkaline Phosphatase 109 U/L (39-117); Anion Gap 10 (12-20); Aspartate Amino Transferase 11 U/L (5-31); Bilirubin Direct 0.1 mg/dL (0.0-0.5); Bilirubin Total 0.3 mg/dL (0.0-1.0); Blood Urea Nitrogen 8 mg/dL (9-16); Calcium 10.1 mg/dL (8.4-10.2); Carbon Dioxide 28 mmol/L (22-29); Chloride 111 mmol/L (96-108); Cholesterol 214 mg/dL (<200); Estimated Glomerular Filt Rate > 60; Glucose Fasting 108 mg/dL (60-99); HDL Cholesterol 49 mg/dL (>40); Iron 40 mcg/dL (30-160); LDL Cholesterol Calculated 148 mg/dL (<100); Percent Iron Saturation 15 % (15-50); Potassium 3.9 mmol/L (3.3-5.1); Sodium 145 mmol/L (135-145); Total Iron Binding Capacity 260 mcg/dL (228-428); Total Protein 7.8 g/dL (6.5-8.0); Triglycerides 86 mg/dL (<150); Unsaturated Iron Binding 220 ug/dL
[2023-08-17 12:54] LABS: Free T4 (Free Thyroxine) 0.92 ng/dL (0.71-1.85); Thyroid Stimulating Hormone 1.21 uIU/mL (0.32-4.0)
[2023-08-17 13:06] LABS: Folate 13.4 ng/mL (> or = 4.0); Vitamin B12 669 pg/mL (200-900)
[2023-08-17] MEDS: hydrOXYzine HCL 25 MG TABLET PO (13:09)
[2023-08-17 19:45] VITALS: BP 135/78; PULSE 76; RESP 18; TEMP 37.1; O2SAT 100
[2023-08-17] MEDS: OLANZapine 10 MG TABLET PO (21:48)
[2023-08-17] MEDS: Prazosin HCL 1 MG CAPSULE PO (21:48)
--- NOTE | 2023-08-18 08:13 | HO.PSYCHPN ---
Subjective Subjective Date of Service: 08/18/23 Reason For Visit: stephany Interim History: met with patient; discussed with team Last night patient got dysregulated, yelling in the hallway that someone had stolen her identity; however able to be redirected Today on approach Patient lying in bed, awake and alert, covers mostly over head; difficult to engage but she was willing to say she was good.. And denies any complaints request. Mental Status Exam Mental Status Exam Narrative: Appearance: strabismus, wearing hospital gown, fair hygiene in NAD Behavior: Mostly cooperative, but can get dysregulated psychomotor: Intermittent psychomotor agitation; previously noted resting left hand tremor Speech:clear, regular rate/rhythm/volume, spontaneous Thought process:mostly linear Thought content: On various things Mood: good Affect: congruent SI:denies HI:denies VH/AH: Intermittent AH Delusions: Intermittent paranoia or confused thinking Insight/judgment: Impaired. Memory/cog: alert, oriented x 3. intellectual disability. Diagnostics Vital Signs (24Hr): Vital Signs - 24 hr 08/17/23 12:02 08/17/23 19:45 Temperature 97.0 F 98.8 F Pulse Rate 100 76 Respiratory Rate 18 18 Blood Pressure 130/74 135/78 Pulse Oximetry 100 100 Oxygen Delivery Method Room Air Room Air Labs 08/17/23 11:54 08/17/23 11:54 Labs: Laboratory Results - last 48 hr 08/16/23 08/17/23 22:25 11:54 WBC 4.1 L RBC 4.35 Hgb 10.8 L Hct 36.0 L MCV 82.8 MCH 24.8 L MCHC 30.0 L RDW 14.6 Plt Count 233 MPV 11.0 Immature Gran % (Auto) 0.2 Neut % (Auto) 47.4 Lymph % (Auto) 41.5 H Bond % (Auto) 5.3 Eos % (Auto) 4.6 H Baso % (Auto) 1.0 Lymph # (Auto) 1.7 Bond # (Auto) 0.2 Eos # (Auto) 0.2 Baso # (Auto) 0.0 Abs Immat Gran (auto) 0.01 Absolute Neuts (auto) 2.0 Absolute Nucleated RBC 0.000 Nucleated RBC % (auto) 0.0 Sodium 145 Potassium 3.9 Chloride 111 H Carbon Dioxide 28 Anion Gap 10 L BUN 8 L Creatinine 0.94 Estim Creat Clear Calc TNP Estimated GFR > 60 Fasting Glucose 108 H Estimat Average Glucose 100 Hemoglobin A1c % 5.1 Calcium 10.1 Iron 40 TIBC 260 % Saturation 15 Unsat Iron Binding 220 Total Bilirubin 0.3 Direct Bilirubin 0.1 AST 11 ALT 9 Alkaline Phosphatase 109 Total Protein 7.8 Albumin 4.2 Triglycerides 86 Cholesterol 214 H LDL Cholesterol, Calc 148 H HDL Cholesterol 49 Vitamin B12 669 Folate 13.4 TSH 1.21 Free T4 0.92 Urine Color Yellow Urine Appearance Clear Urine pH 5.5 Ur Specific [place] 1.010 Urine Protein Negative Urine Glucose (UA) Negative Urine Ketones Negative Urine Blood Negative Urine Nitrite Negative Ur Leukocyte Esterase Negative Medications Medications Current Medications Acetaminophen (Acetaminophen 325 Mg Tablet) 650 mg PO Q6H PRN PRN Reason: Headache/Pain Mild Scale (1-3) Al Hydroxide/Mg Hydroxide (Magnesium Hydrox/Alum Hydrox 30 Ml Oral.Susp) 30 ml PO Q6H PRN PRN Reason: Heartburn/Nausea Ascorbic Acid (Ascorbic Acid 250 Mg Tablet) 250 mg PO DAILY [facility] Last Admin: 08/17/23 12:03 Dose: 250 mg Benztropine Mesylate (Benztropine Mesylate 1 Mg Tablet) 1 mg PO BID [facility] Last Admin: 08/17/23 21:48 Dose: 1 mg Ferrous Sulfate (Ferrous Sulfate 324 Mg Tablet.Dr) 324 mg PO DAILY [facility] Last Admin: 08/17/23 12:03 Dose: 324 mg Hydroxyzine HCl (Hydroxyzine Hcl 25 Mg Tablet) 25 mg PO Q6H PRN PRN Reason: Anxiety Last Admin: 08/17/23 13:09 Dose: 25 mg Magnesium Hydroxide (Milk Of Magnesia 30 Ml Oral.Susp) 30 ml PO DAILY PRN PRN Reason: Constipation Nicotine Polacrilex (Nicotine Polacrilex 2 Mg Gum) 4 mg BUCCAL Q2H PRN PRN Reason: Nicotine Cravings Olanzapine (Olanzapine 5 Mg Tablet) 5 mg PO TID PRN PRN Reason: agitation Last Admin: 08/17/23 12:04 Dose: 5 mg Olanzapine (Olanzapine 10 Mg Tablet) 10 mg PO BEDTIME [facility] Last Admin: 08/17/23 21:48 Dose: 10 mg Prazosin HCl (Prazosin Hcl 1 Mg Capsule) 1 mg PO BEDTIME [facility] Last Admin: 08/17/23 21:48 Dose: 1 mg Trazodone HCl (Trazodone Hcl 50 Mg Tablet) 50 mg PO BEDTIME MRX1 PRN PRN Reason: Insomnia Last Admin: 08/16/23 21:09 Dose: 50 mg Allergies Allergies Allergy/AdvReac Type Severity Reaction Status Date / Time clozapine Allergy Unknown Verified 06/30/22 06:36 metronidazole [From Flagyl] Allergy Unknown Verified 06/30/22 06:36 paliperidone Allergy Unknown Verified 06/30/22 06:36 Assessment & Plan Assessment & Plan (1) Schizoaffective disorder: Status: Acute Code(s): F25.9 - Schizoaffective disorder, unspecified (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 Britt is a 32 year-old woman with hx of schizophrenia and alcohol syndrome who is known to [facility] through previous admission with similar presentation. Pt was assessed by [facility] crisis at her prison due to pt presenting as more aggressive towards one family member in [place] and increasingly more paranoid. N report mentions pt having significant credit debt but it also seems like she has a repayee managing her money, unclear how that happened. Overall, her thought process presents as much more organized and linear than other times. She does continue to report AH of her servants, but attention not as impaired. medication changes are limited by her current layton. Hospital course: 08/18 continue current treatment plan PLAN 1. Admit to M3, CV, 15 minutes checks for safety 2. continue trilafon and olanzapine. 3. obtain collateral information 4. aftercare planning. Patient educated on: diagnosis Informed Consent: does not understand Reason for continued inpatient stay Substantial Risk for: inability to function Time Spent With Patient Time: Total time managing care of this patient today ____ minutes.
[2023-08-18 08:45] VITALS: BP 122/72; PULSE 60; RESP 20; TEMP 35.8; O2SAT 97
[2023-08-18] MEDS: Ascorbic Acid 250 MG TABLET PO (09:39)
[2023-08-18] MEDS: Ferrous Sulfate 324 MG TABLET.DR PO (09:39)
[2023-08-18] MEDS: Benztropine Mesylate 1 MG TABLET PO ×2 (09:40→21:54)
[2023-08-18] MEDS: OLANZapine 5 MG TABLET PO (21:54)
[2023-08-18] MEDS: OLANZapine 10 MG TABLET PO (21:54)
[2023-08-18] MEDS: Prazosin HCL 1 MG CAPSULE PO (21:54)
[2023-08-18] MEDS: traZODone HCL 50 MG TABLET PO (21:54)
[2023-08-18] MEDS: hydrOXYzine HCL 25 MG TABLET PO (21:54)
[2023-08-18 21:55] VITALS: BP 139/99; PULSE 89; RESP 18; TEMP 36.9; O2SAT 100
[2023-08-19 08:35] VITALS: BP 111/63; PULSE 63; RESP 16; TEMP 36.2; O2SAT 99
[2023-08-19] MEDS: OLANZapine 5 MG TABLET PO ×2 (08:46→22:36)
[2023-08-19] MEDS: Benztropine Mesylate 1 MG TABLET PO ×2 (08:46→22:36)
[2023-08-19] MEDS: Ascorbic Acid 250 MG TABLET PO (08:46)
[2023-08-19] MEDS: Ferrous Sulfate 324 MG TABLET.DR PO (08:50)
--- NOTE | 2023-08-19 08:54 | P.PNPSI_ITS ---
Subjective Subjective Date of Service: 08/19/23 Reason For Visit: stephany Subjective Notes: Conditional Voluntary Interim History: Pt in bed most of the morning. She declined to get up stating she was tired. She denied SI/HI. Appears internally preoccupied. She slept last night. She is taking medications as prescribed. Need to verify whether she is still on trilafon in combination with olanzapine. Review of Systems Review of Systems General: No fevers, malaise, unintentional weight loss HEENT: No blurred vision, diplopia. No sore throat, nasal congestion, rhinorrhea, sinus pain, ear pain Cardiovascular: No chest pain, palpitations, or leg edema Respiratory: No shortness of breath, wheezing, cough GI: No abdominal pain, nausea, vomiting, diarrhea, constipation, melena, hematochezia : No dysuria, hematuria, increased urinary frequency, decreased urinary output MSK: No myalgia, back pain Neuro: No headaches, weakness, paresthesias Skin: No rashes or lesions Mental Status Exam Mental Status Exam Narrative: Appearance: strabismus, wearing hospital gown, fair hygiene in NAD Behavior: Mostly cooperative, but can get dysregulated psychomotor: Intermittent psychomotor agitation; previously noted resting left hand tremor Speech:clear, regular rate/rhythm/volume, spontaneous Thought process:mostly linear Thought content: On various things Mood: good Affect: congruent SI:denies HI:denies VH/AH: Intermittent AH Delusions: Intermittent paranoia or confused thinking Insight/judgment: Impaired. Memory/cog: alert, oriented x 3. intellectual disability. Diagnostics Vital Signs (24Hr): Vital Signs - 24 hr 08/18/23 21:55 Temperature 98.5 F Pulse Rate 89 Respiratory Rate 18 Blood Pressure 139/99 H Pulse Oximetry 100 Oxygen Delivery Method Room Air Labs 08/17/23 11:54 08/17/23 11:54 Labs: Laboratory Results - last 48 hr 08/17/23 11:54 WBC 4.1 L RBC 4.35 Hgb 10.8 L Hct 36.0 L MCV 82.8 MCH 24.8 L MCHC 30.0 L RDW 14.6 Plt Count 233 MPV 11.0 Immature Gran % (Auto) 0.2 Neut % (Auto) 47.4 Lymph % (Auto) 41.5 H [place] % (Auto) 5.3 Eos % (Auto) 4.6 H Baso % (Auto) 1.0 Lymph # (Auto) 1.7 [place] # (Auto) 0.2 Eos # (Auto) 0.2 Baso # (Auto) 0.0 Abs Immat Gran (auto) 0.01 Absolute Neuts (auto) 2.0 Absolute Nucleated RBC 0.000 Nucleated RBC % (auto) 0.0 Sodium 145 Potassium 3.9 Chloride 111 H Carbon Dioxide 28 Anion Gap 10 L BUN 8 L Creatinine 0.94 Estim Creat Clear Calc TNP Estimated GFR > 60 Fasting Glucose 108 H Estimat Average Glucose 100 Hemoglobin A1c % 5.1 Calcium 10.1 Iron 40 TIBC 260 % Saturation 15 Unsat Iron Binding 220 Total Bilirubin 0.3 Direct Bilirubin 0.1 AST 11 ALT 9 Alkaline Phosphatase 109 Total Protein 7.8 Albumin 4.2 Triglycerides 86 Cholesterol 214 H LDL Cholesterol, Calc 148 H HDL Cholesterol 49 Vitamin B12 669 Folate 13.4 TSH 1.21 Free T4 0.92 Medications Medications Current Medications Acetaminophen (Acetaminophen 325 Mg Tablet) 650 mg PO Q6H PRN PRN Reason: Headache/Pain Mild Scale (1-3) Al Hydroxide/Mg Hydroxide (Magnesium Hydrox/Alum Hydrox 30 Ml Oral.Susp) 30 ml PO Q6H PRN PRN Reason: Heartburn/Nausea Ascorbic Acid (Ascorbic Acid 250 Mg Tablet) 250 mg PO DAILY [facility] Last Admin: 08/19/23 08:46 Dose: 250 mg Benztropine Mesylate (Benztropine Mesylate 1 Mg Tablet) 1 mg PO BID [facility] Last Admin: 08/19/23 08:46 Dose: 1 mg Ferrous Sulfate (Ferrous Sulfate 324 Mg Tablet.) 324 mg PO DAILY [facility] Last Admin: 08/19/23 08:50 Dose: 324 mg Hydroxyzine HCl (Hydroxyzine Hcl 25 Mg Tablet) 25 mg PO Q6H PRN PRN Reason: Anxiety Last Admin: 08/18/23 21:54 Dose: 25 mg Magnesium Hydroxide (Milk Of Magnesia 30 Ml Oral.Susp) 30 ml PO DAILY PRN PRN Reason: Constipation Nicotine Polacrilex (Nicotine Polacrilex 2 Mg Gum) 4 mg BUCCAL Q2H PRN PRN Reason: Nicotine Cravings Olanzapine (Olanzapine 5 Mg Tablet) 5 mg PO TID PRN PRN Reason: agitation Last Admin: 08/19/23 08:46 Dose: 5 mg Olanzapine (Olanzapine 10 Mg Tablet) 10 mg PO BEDTIME [facility] Last Admin: 08/18/23 21:54 Dose: 10 mg Prazosin HCl (Prazosin Hcl 1 Mg Capsule) 1 mg PO BEDTIME [facility] Last Admin: 08/18/23 21:54 Dose: 1 mg Trazodone HCl (Trazodone Hcl 50 Mg Tablet) 50 mg PO BEDTIME MRX1 PRN PRN Reason: Insomnia Last Admin: 08/18/23 21:54 Dose: 50 mg Allergies Allergies Allergy/AdvReac Type Severity Reaction Status Date / Time clozapine Allergy Unknown Verified 06/30/22 06:36 metronidazole [From Flagyl] Allergy Unknown Verified 06/30/22 06:36 paliperidone Allergy Unknown Verified 06/30/22 06:36 Assessment & Plan Assessment & Plan (1) Schizoaffective disorder: Status: Acute Code(s): F25.9 - Schizoaffective disorder, unspecified (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 Britt is a 32 year-old woman with hx of schizophrenia and alcohol syndrome who is known to [facility] through previous admission with similar presentation. Pt was assessed by [facility] crisis at her halfway due to pt presenting as more aggressive towards one family member in [place] and increasingly more paranoid. [facility] report mentions pt having significant credit debt but it also seems like she has a repayee managing her money, unclear how that happened. Overall, her thought process presents as much more organized and linear than other times. She does continue to report AH of her servants, but attention not as impaired. medication changes are limited by her current layton. Hospital course: 08/18 continue current treatment plan 08/19 continue tx. Reason for continued inpatient stay Substantial Risk for: inability to function Time Spent With Patient Time: Total time managing care of this patient today ____ minutes.
[2023-08-19 19:53] VITALS: BP 135/93; PULSE 83; RESP 18; TEMP 37.3; O2SAT 100
[2023-08-19 20:53] VITALS: BP 127/70; PULSE 85; RESP 18; TEMP 36.3; O2SAT 99
[2023-08-19] MEDS: traZODone HCL 50 MG TABLET PO (22:36)
[2023-08-19] MEDS: OLANZapine 10 MG TABLET PO (22:36)
[2023-08-19] MEDS: Prazosin HCL 1 MG CAPSULE PO (22:36)
[2023-08-19] MEDS: hydrOXYzine HCL 25 MG TABLET PO (22:36)
[2023-08-20 09:00] VITALS: RESP 18
--- NOTE | 2023-08-20 14:08 | P.PNPSI_ITS ---
Subjective Subjective Date of Service: 08/20/23 Reason For Visit: stephany Subjective Notes: Conditional Voluntary Interim History: More visible on the unit. She reports hearing voices of servants but would not elaborate. Appears internally preoccupied. She slept last night. She is taking medications as prescribed. Need to verify whether she is still on trilafon in combination with olanzapine. Review of Systems Review of Systems General: No fevers, malaise, unintentional weight loss HEENT: No blurred vision, diplopia. No sore throat, nasal congestion, rhinorrhea, sinus pain, ear pain Cardiovascular: No chest pain, palpitations, or leg edema Respiratory: No shortness of breath, wheezing, cough GI: No abdominal pain, nausea, vomiting, diarrhea, constipation, melena, hematochezia : No dysuria, hematuria, increased urinary frequency, decreased urinary output MSK: No myalgia, back pain Neuro: No headaches, weakness, paresthesias Skin: No rashes or lesions Mental Status Exam Mental Status Exam Narrative: Appearance: strabismus, wearing hospital gown, fair hygiene in NAD Behavior: Mostly cooperative, but can get dysregulated psychomotor: Intermittent psychomotor agitation; previously noted resting left hand tremor Speech:clear, regular rate/rhythm/volume, spontaneous Thought process:mostly linear Thought content: On various things Mood: good Affect: congruent SI:denies HI:denies VH/AH: Intermittent AH Delusions: Intermittent paranoia or confused thinking Insight/judgment: Impaired. Memory/cog: alert, oriented x 3. intellectual disability. Diagnostics Vital Signs (24Hr): Vital Signs - 24 hr 08/19/23 19:53 08/19/23 20:53 Temperature 99.1 F 97.4 F Pulse Rate 83 85 Respiratory Rate 18 18 Blood Pressure 135/93 H 127/70 Pulse Oximetry 100 99 Oxygen Delivery Method Room Air Room Air Labs 08/17/23 11:54 08/17/23 11:54 Medications Medications Current Medications Acetaminophen (Acetaminophen 325 Mg Tablet) 650 mg PO Q6H PRN PRN Reason: Headache/Pain Mild Scale (1-3) Al Hydroxide/Mg Hydroxide (Magnesium Hydrox/Alum Hydrox 30 Ml Oral.Susp) 30 ml PO Q6H PRN PRN Reason: Heartburn/Nausea Ascorbic Acid (Ascorbic Acid 250 Mg Tablet) 250 mg PO DAILY [facility] Last Admin: 08/20/23 10:27 Dose: Not Given Benztropine Mesylate (Benztropine Mesylate 1 Mg Tablet) 1 mg PO BID [facility] Last Admin: 08/20/23 10:27 Dose: Not Given Ferrous Sulfate (Ferrous Sulfate 324 Mg Tablet.Dr) 324 mg PO DAILY [facility] Last Admin: 08/20/23 10:27 Dose: Not Given Hydroxyzine HCl (Hydroxyzine Hcl 25 Mg Tablet) 25 mg PO Q6H PRN PRN Reason: Anxiety Last Admin: 08/19/23 22:36 Dose: 25 mg Magnesium Hydroxide (Milk Of Magnesia 30 Ml Oral.Susp) 30 ml PO DAILY PRN PRN Reason: Constipation Nicotine Polacrilex (Nicotine Polacrilex 2 Mg Gum) 4 mg BUCCAL Q2H PRN PRN Reason: Nicotine Cravings Olanzapine (Olanzapine 5 Mg Tablet) 5 mg PO TID PRN PRN Reason: agitation Last Admin: 08/19/23 22:36 Dose: 5 mg Olanzapine (Olanzapine 10 Mg Tablet) 10 mg PO BEDTIME [facility] Last Admin: 08/19/23 22:36 Dose: 10 mg Prazosin HCl (Prazosin Hcl 1 Mg Capsule) 1 mg PO BEDTIME [facility] Last Admin: 08/19/23 22:36 Dose: 1 mg Trazodone HCl (Trazodone Hcl 50 Mg Tablet) 50 mg PO BEDTIME MRX1 PRN PRN Reason: Insomnia Last Admin: 08/19/23 22:36 Dose: 50 mg Allergies Allergies Allergy/AdvReac Type Severity Reaction Status Date / Time clozapine Allergy Unknown Verified 06/30/22 06:36 metronidazole [From Flagyl] Allergy Unknown Verified 06/30/22 06:36 paliperidone Allergy Unknown Verified 06/30/22 06:36 Assessment & Plan Assessment & Plan (1) Schizoaffective disorder: Status: Acute Code(s): F25.9 - Schizoaffective disorder, unspecified (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 Britt is a 32 year-old woman with hx of schizophrenia and alcohol syndrome who is known to [facility] through previous admission with similar presentation. Pt was assessed by [facility] crisis at her intermediate due to pt presenting as more aggressive towards one family member in [place] and increasingly more paranoid. N report mentions pt having significant credit debt but it also seems like she has a repayee managing her money, unclear how that happened. Overall, her thought process presents as much more organized and linear than other times. She does continue to report AH of her servants, but attention not as impaired. medication changes are limited by her current layton. Hospital course: 08/18 continue current treatment plan 08/19 continue tx. 08/20 will add trilofon 8mg po BID Reason for continued inpatient stay Substantial Risk for: inability to function Time Spent With Patient Time: Total time managing care of this patient today ____ minutes.
[2023-08-20 20:43] VITALS: BP 134/81; PULSE 100; RESP 18; TEMP 37.1; O2SAT 98
[2023-08-20] MEDS: hydrOXYzine HCL 25 MG TABLET PO (20:47)
[2023-08-20] MEDS: OLANZapine 5 MG TABLET PO (20:47)
[2023-08-20] MEDS: Prazosin HCL 1 MG CAPSULE PO (20:47)
[2023-08-20] MEDS: traZODone HCL 50 MG TABLET PO (20:48)
[2023-08-20] MEDS: Benztropine Mesylate 1 MG TABLET PO (20:48)
[2023-08-20] MEDS: OLANZapine 10 MG TABLET PO (20:48)
[2023-08-21 06:00] VITALS: RESP 16
[2023-08-21] MEDS: Ferrous Sulfate 324 MG TABLET.DR PO (09:56)
[2023-08-21] MEDS: Perphenazine 8 MG TABLET 16 MG PO ×2 (09:56→21:26)
[2023-08-21] MEDS: Benztropine Mesylate 1 MG TABLET PO ×2 (09:57→21:27)
[2023-08-21] MEDS: Ascorbic Acid 250 MG TABLET PO (09:57)
--- NOTE | 2023-08-21 16:43 | HO.PSYCHPN ---
Subjective Subjective Date of Service: 08/21/23 Reason For Visit: stephany Subjective Notes: Conditional Voluntary Interim History: More visible on the unit. She reports hearing voices of servants but would not elaborate. Appears internally preoccupied. She slept last night. She is taking medications as prescribed. Need to verify whether she is still on trilafon in combination with olanzapine. Review of Systems Review of Systems General: No fevers, malaise, unintentional weight loss HEENT: No blurred vision, diplopia. No sore throat, nasal congestion, rhinorrhea, sinus pain, ear pain Cardiovascular: No chest pain, palpitations, or leg edema Respiratory: No shortness of breath, wheezing, cough GI: No abdominal pain, nausea, vomiting, diarrhea, constipation, melena, hematochezia : No dysuria, hematuria, increased urinary frequency, decreased urinary output MSK: No myalgia, back pain Neuro: No headaches, weakness, paresthesias Skin: No rashes or lesions Mental Status Exam Mental Status Exam Narrative: Appearance: strabismus, wearing hospital gown, fair hygiene in NAD Behavior: Mostly cooperative, but can get dysregulated psychomotor: Intermittent psychomotor agitation; previously noted resting left hand tremor Speech:clear, regular rate/rhythm/volume, spontaneous Thought process:mostly linear Thought content: On various things Mood: good Affect: congruent SI:denies HI:denies VH/AH: Intermittent AH Delusions: Intermittent paranoia or confused thinking Insight/judgment: Impaired. Memory/cog: alert, oriented x 3. intellectual disability. Diagnostics Vital Signs (24Hr): Vital Signs - 24 hr 08/20/23 20:43 08/21/23 06:00 Temperature 98.7 F Pulse Rate 100 Respiratory Rate 18 16 Blood Pressure 134/81 Pulse Oximetry 98 Oxygen Delivery Method Room Air Labs 08/17/23 11:54 08/17/23 11:54 Medications Medications Current Medications Acetaminophen (Acetaminophen 325 Mg Tablet) 650 mg PO Q6H PRN PRN Reason: Headache/Pain Mild Scale (1-3) Al Hydroxide/Mg Hydroxide (Magnesium Hydrox/Alum Hydrox 30 Ml Oral.Susp) 30 ml PO Q6H PRN PRN Reason: Heartburn/Nausea Ascorbic Acid (Ascorbic Acid 250 Mg Tablet) 250 mg PO DAILY JUHI Last Admin: 08/21/23 09:57 Dose: 250 mg Benztropine Mesylate (Benztropine Mesylate 1 Mg Tablet) 1 mg PO BID [facility] Last Admin: 08/21/23 09:57 Dose: 1 mg Ferrous Sulfate (Ferrous Sulfate 324 Mg Tablet.Dr) 324 mg PO DAILY [facility] Last Admin: 08/21/23 09:56 Dose: 324 mg Hydroxyzine HCl (Hydroxyzine Hcl 25 Mg Tablet) 25 mg PO Q6H PRN PRN Reason: Anxiety Last Admin: 08/20/23 20:47 Dose: 25 mg Magnesium Hydroxide (Milk Of Magnesia 30 Ml Oral.Susp) 30 ml PO DAILY PRN PRN Reason: Constipation Nicotine Polacrilex (Nicotine Polacrilex 2 Mg Gum) 4 mg BUCCAL Q2H PRN PRN Reason: Nicotine Cravings Olanzapine (Olanzapine 5 Mg Tablet) 5 mg PO TID PRN PRN Reason: agitation Last Admin: 08/20/23 20:47 Dose: 5 mg Olanzapine (Olanzapine 10 Mg Tablet) 10 mg PO BEDTIME [facility] Last Admin: 08/20/23 20:48 Dose: 10 mg Perphenazine (Perphenazine 8 Mg Tablet) 16 mg PO BID [facility] Last Admin: 08/21/23 09:56 Dose: 16 mg Prazosin HCl (Prazosin Hcl 1 Mg Capsule) 1 mg PO BEDTIME [facility] Last Admin: 08/20/23 20:47 Dose: 1 mg Trazodone HCl (Trazodone Hcl 50 Mg Tablet) 50 mg PO BEDTIME MRX1 PRN PRN Reason: Insomnia Last Admin: 08/20/23 20:48 Dose: 50 mg Allergies Allergies Allergy/AdvReac Type Severity Reaction Status Date / Time clozapine Allergy Unknown Verified 06/30/22 06:36 metronidazole [From Flagyl] Allergy Unknown Verified 06/30/22 06:36 paliperidone Allergy Unknown Verified 06/30/22 06:36 Assessment & Plan Assessment & Plan (1) Schizoaffective disorder: Status: Acute Code(s): F25.9 - Schizoaffective disorder, unspecified (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 Britt is a 32 year-old woman with hx of schizophrenia and alcohol syndrome who is known to [facility] through previous admission with similar presentation. Pt was assessed by [facility] at her [facility] due to pt presenting as more aggressive towards one family member in [place] and increasingly more paranoid. N report mentions pt having significant credit debt but it also seems like she has a repayee managing her money, unclear how that happened. Overall, her thought process presents as much more organized and linear than other times. She does continue to report AH of her servants, but attention not as impaired. medication changes are limited by her current layton. Hospital course: 08/18 continue current treatment plan 08/19 continue tx. 08/20 continue tx. 08/21 continue tx. Reason for continued inpatient stay Substantial Risk for: inability to function Time Spent With Patient Time: Total time managing care of this patient today ____ minutes.
[2023-08-21 20:30] VITALS: BP 173/102; PULSE 84; TEMP 36.9; O2SAT 99
[2023-08-21] MEDS: traZODone HCL 50 MG TABLET PO (21:27)
[2023-08-21] MEDS: Prazosin HCL 1 MG CAPSULE PO (21:27)
[2023-08-21] MEDS: hydrOXYzine HCL 25 MG TABLET PO (21:27)
[2023-08-21] MEDS: OLANZapine 10 MG TABLET PO (21:27)
[2023-08-21 22:00] VITALS: BP 142/84
[2023-08-22] MEDS: Ferrous Sulfate 324 MG TABLET.DR PO (09:32)
[2023-08-22] MEDS: Ascorbic Acid 250 MG TABLET PO (09:32)
[2023-08-22] MEDS: Perphenazine 8 MG TABLET 16 MG PO ×2 (09:32→20:55)
[2023-08-22] MEDS: Benztropine Mesylate 1 MG TABLET PO ×2 (09:32→20:55)
--- NOTE | 2023-08-22 09:42 | PC.NURSE ---
PT SIGNED A 3 DAY ON 08/22/23, UP ON Tuesday08/25/23
[2023-08-22] MEDS: Lithium Carbonate ER 450 MG TABLET.ER PO ×2 (13:11→20:55)
[2023-08-22] MEDS: OLANZapine 5 MG TABLET PO (18:22)
[2023-08-22] MEDS: hydrOXYzine HCL 25 MG TABLET PO (18:22)
[2023-08-22] MEDS: OLANZapine 10 MG TABLET PO (20:55)
[2023-08-22] MEDS: Prazosin HCL 1 MG CAPSULE PO (20:55)
[2023-08-22] MEDS: traZODone HCL 50 MG TABLET PO (20:55)
[2023-08-22 20:59] VITALS: BP 148/80; PULSE 95; RESP 14; TEMP 37; O2SAT 99
--- NOTE | 2023-08-22 21:08 | HO.PSYCHPN ---
Subjective Subjective Date of Service: 08/22/23 Reason For Visit: stephany Interim History: c/o akathisia Sx, like insects crawling on her legs, can't stop moving them. pt agreeable to restart lithium, which was not continued/restarted this admission. per staff, 3-day up . taking meds and meals. sleeping well. occasionally yelling at AH. Mental Status Exam Mental Status Exam Narrative: adequately groomed, wearing hospital hammad. cooperative. no PMA/PMR. speech nml rate, amount, loudness, tone, latency. thoughts linear and logical. affect constricted, normo-intense, non-labile. mood good. no SI/HI/AVH expressed. Diagnostics Vital Signs (24Hr): Vital Signs - 24 hr 08/21/23 22:00 08/22/23 20:59 Temperature 98.6 F Pulse Rate 95 Respiratory Rate 14 Blood Pressure 142/84 H 148/80 H Pulse Oximetry 99 Oxygen Delivery Method Room Air Labs 08/17/23 11:54 08/17/23 11:54 Medications Medications Current Medications Acetaminophen (Acetaminophen 325 Mg Tablet) 975 mg PO Q6H PRN PRN Reason: Headache/Pain Mild Scale (1-3) Al Hydroxide/Mg Hydroxide (Magnesium Hydrox/Alum Hydrox 30 Ml Oral.Susp) 30 ml PO Q6H PRN PRN Reason: Heartburn/Nausea Ascorbic Acid (Ascorbic Acid 250 Mg Tablet) 250 mg PO DAILY [facility] Last Admin: 08/22/23 09:32 Dose: 250 mg Benztropine Mesylate (Benztropine Mesylate 1 Mg Tablet) 1 mg PO BID [facility] Last Admin: 08/22/23 20:55 Dose: 1 mg Ferrous Sulfate (Ferrous Sulfate 324 Mg Tablet.Dr) 324 mg PO DAILY [facility] Last Admin: 08/22/23 09:32 Dose: 324 mg Hydroxyzine HCl (Hydroxyzine Hcl 25 Mg Tablet) 25 mg PO Q6H PRN PRN Reason: Anxiety Last Admin: 08/22/23 18:22 Dose: 25 mg [place] Carbonate ([place] Carbonate Er 450 Mg Tablet.Er) 450 mg PO BID [facility] Last Admin: 08/22/23 20:55 Dose: 450 mg Magnesium Hydroxide (Milk Of Magnesia 30 Ml Oral.Susp) 30 ml PO DAILY PRN PRN Reason: Constipation Nicotine Polacrilex (Nicotine Polacrilex 2 Mg Gum) 4 mg BUCCAL Q2H PRN PRN Reason: Nicotine Cravings Olanzapine (Olanzapine 5 Mg Tablet) 5 mg PO TID PRN PRN Reason: agitation Last Admin: 08/22/23 18:22 Dose: 5 mg Olanzapine (Olanzapine 10 Mg Tablet) 10 mg PO BEDTIME JUHI Last Admin: 08/22/23 20:55 Dose: 10 mg Perphenazine (Perphenazine 8 Mg Tablet) 16 mg PO BID [facility] Last Admin: 08/22/23 20:55 Dose: 16 mg Prazosin HCl (Prazosin Hcl 1 Mg Capsule) 1 mg PO BEDTIME [facility] Last Admin: 08/22/23 20:55 Dose: 1 mg Trazodone HCl (Trazodone Hcl 50 Mg Tablet) 50 mg PO BEDTIME MRX1 PRN PRN Reason: Insomnia Last Admin: 08/22/23 20:55 Dose: 50 mg Allergies Allergies Allergy/AdvReac Type Severity Reaction Status Date / Time clozapine Allergy Unknown Verified 06/30/22 06:36 metronidazole [From Flagyl] Allergy Unknown Verified 06/30/22 06:36 paliperidone Allergy Unknown Verified 06/30/22 06:36 Assessment & Plan Assessment & Plan (1) Schizoaffective disorder: Status: Acute Code(s): F25.9 - Schizoaffective disorder, unspecified (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 Britt is a 32 year-old woman with hx of schizophrenia and alcohol syndrome who is known to [facility] through previous admission with similar presentation. Pt was assessed by [facility] crisis at her alf due to pt presenting as more aggressive towards one family member in [place] and increasingly more paranoid. BHN report mentions pt having significant credit debt but it also seems like she has a repayee managing her money, unclear how that happened. Overall, her thought process presents as much more organized and linear than other times. She does continue to report AH of her servants, but attention not as impaired. medication changes are limited by her current layton. Hospital course: 08/18 continue current treatment plan 08/19 continue tx. 08/20 continue tx. 08/21 continue tx. 08/22: restart lithium 450 BID. T/C decrease in trilafon and reliance on other neuroleptic such as olanzapine due to akathisia. continue cogentin 1 BID for now. Reason for continued inpatient stay Substantial Risk for: inability to function and rapid decompensation Time Spent With Patient Time: Total time managing care of this patient today __35__ minutes.
[2023-08-23] MEDS: Ferrous Sulfate 324 MG TABLET.DR PO (09:12)
[2023-08-23] MEDS: Lithium Carbonate ER 450 MG TABLET.ER PO ×2 (09:12→22:15)
[2023-08-23] MEDS: Perphenazine 8 MG TABLET 16 MG PO ×2 (09:12→22:14)
[2023-08-23] MEDS: Ascorbic Acid 250 MG TABLET PO (09:12)
[2023-08-23] MEDS: Benztropine Mesylate 1 MG TABLET PO ×2 (09:12→22:15)
[2023-08-23 09:51] VITALS: BP 145/86; PULSE 86; TEMP 36.2; O2SAT 96
--- NOTE | 2023-08-23 11:58 | HO.PSYCHPN ---
Subjective Subjective Date of Service: 08/23/23 Reason For Visit: stephany Subjective Notes: Conditional Voluntary Interim History: Reviewed with . Guarded; attending groups. Pt reports feeling good today; is requesting to be discharged home. She reports sleeping well at night. denies SI/HI/VH/AH. Medication Compliance: Yes Side effects from medications: No Attending Groups: Yes Review of Systems Constitutional: Reports as per HPI Eyes: Reports as per HPI Reports as per HPI Cardiovascular: Reports as per HPI Respiratory: Reports as per HPI Gastrointestinal: Reports as per HPI Genitourinary: Reports as per HPI Musculoskeletal: Reports as per HPI Skin/Breast: Reports as per HPI Reports as per HPI Psychiatric: Reports as per HPI Endocrine: Reports as per HPI Hematologic/Lymphatic: Reports as per HPI Allergic/Immunologic: Reports as per HPI Mental Status Exam Mental Status Exam Narrative: Pt is alert and oriented; behavior is guarded and calm; dressed in casual attire; mood is described as good ; eye contact appropriate; Speech is normal rate, volume and prosody and not pressured; no psychomotor agitation/retardation present; thought process is organized; Thought content is on discharge; denies SI/HI/VH/AH. Diagnostics Vital Signs (24Hr): Vital Signs - 24 hr 08/22/23 20:59 08/23/23 09:51 Temperature 98.6 F 97.1 F Pulse Rate 95 86 Respiratory Rate 14 Blood Pressure 148/80 H 145/86 H Pulse Oximetry 99 96 Oxygen Delivery Method Room Air Labs 08/17/23 11:54 08/17/23 11:54 Medications Medications Current Medications Acetaminophen (Acetaminophen 325 Mg Tablet) 975 mg PO Q6H PRN PRN Reason: Headache/Pain Mild Scale (1-3) Al Hydroxide/Mg Hydroxide (Magnesium Hydrox/Alum Hydrox 30 Ml Oral.Susp) 30 ml PO Q6H PRN PRN Reason: Heartburn/Nausea Ascorbic Acid (Ascorbic Acid 250 Mg Tablet) 250 mg PO DAILY [facility] Last Admin: 08/23/23 09:12 Dose: 250 mg Benztropine Mesylate (Benztropine Mesylate 1 Mg Tablet) 1 mg PO BID [facility] Last Admin: 08/23/23 09:12 Dose: 1 mg Ferrous Sulfate (Ferrous Sulfate 324 Mg Tablet.) 324 mg PO DAILY [facility] Last Admin: 08/23/23 09:12 Dose: 324 mg Hydroxyzine HCl (Hydroxyzine Hcl 25 Mg Tablet) 25 mg PO Q6H PRN PRN Reason: Anxiety Last Admin: 08/22/23 18:22 Dose: 25 mg [place] Carbonate ([place] Carbonate Er 450 Mg Tablet.Er) 450 mg PO BID [facility] Last Admin: 08/23/23 09:12 Dose: 450 mg Magnesium Hydroxide (Milk Of Magnesia 30 Ml Oral.Susp) 30 ml PO DAILY PRN PRN Reason: Constipation Nicotine Polacrilex (Nicotine Polacrilex 2 Mg Gum) 4 mg BUCCAL Q2H PRN PRN Reason: Nicotine Cravings Olanzapine (Olanzapine 5 Mg Tablet) 5 mg PO TID PRN PRN Reason: agitation Last Admin: 08/22/23 18:22 Dose: 5 mg Olanzapine (Olanzapine 10 Mg Tablet) 10 mg PO BEDTIME JUHI Last Admin: 08/22/23 20:55 Dose: 10 mg Perphenazine (Perphenazine 8 Mg Tablet) 16 mg PO BID [facility] Last Admin: 08/23/23 09:12 Dose: 16 mg Prazosin HCl (Prazosin Hcl 1 Mg Capsule) 1 mg PO BEDTIME [facility] Last Admin: 08/22/23 20:55 Dose: 1 mg Trazodone HCl (Trazodone Hcl 50 Mg Tablet) 50 mg PO BEDTIME MRX1 PRN PRN Reason: Insomnia Last Admin: 08/22/23 20:55 Dose: 50 mg Allergies Allergies Allergy/AdvReac Type Severity Reaction Status Date / Time clozapine Allergy Unknown Verified 06/30/22 06:36 metronidazole [From Flagyl] Allergy Unknown Verified 06/30/22 06:36 paliperidone Allergy Unknown Verified 06/30/22 06:36 Assessment & Plan Assessment & Plan (1) Schizoaffective disorder: Status: Acute Code(s): F25.9 - Schizoaffective disorder, unspecified (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 Britt is a 32 year-old woman with hx of schizophrenia and alcohol syndrome who is known to [facility] through previous admission with similar presentation. Pt was assessed by [facility] crisis at her care home due to pt presenting as more aggressive towards one family member in [place] and increasingly more paranoid. BHN report mentions pt having significant credit debt but it also seems like she has a repayee managing her money, unclear how that happened. Overall, her thought process presents as much more organized and linear than other times. She does continue to report AH of her servants, but attention not as impaired. medication changes are limited by her current layton. Hospital course: 08/18 continue current treatment plan 08/19 continue tx. 08/20 continue tx. 08/21 continue tx. 08/22: restart lithium 450 BID. T/C decrease in trilafon and reliance on other neuroleptic such as olanzapine due to akathisia. continue cogentin 1 BID for now. 08/23: Reports feeling good; guarded, asking to be discharged. Attending groups. denies SI/HI/VH/AH. Patient educated on: diagnosis and medication risk/benefits Informed Consent: understands Reason for continued inpatient stay Substantial Risk for: med/psych decompensation Time Spent With Patient Time: Total time managing care of this patient today _20___ minutes.
[2023-08-23] MEDS: hydrOXYzine HCL 25 MG TABLET PO (16:51)
[2023-08-23] MEDS: OLANZapine 5 MG TABLET PO (16:51)
[2023-08-23 20:10] VITALS: BP 156/96; PULSE 90; RESP 16; TEMP 36.7; O2SAT 100
[2023-08-23] MEDS: Prazosin HCL 1 MG CAPSULE PO (22:15)
[2023-08-23] MEDS: OLANZapine 10 MG TABLET PO (22:15)
[2023-08-24 07:55] VITALS: BP 120/72; PULSE 64; RESP 14; TEMP 36.1; O2SAT 97
[2023-08-24] MEDS: Ferrous Sulfate 324 MG TABLET.DR PO (10:26)
[2023-08-24] MEDS: Lithium Carbonate ER 450 MG TABLET.ER PO ×2 (10:26→21:58)
[2023-08-24] MEDS: Ascorbic Acid 250 MG TABLET PO (10:26)
[2023-08-24] MEDS: Benztropine Mesylate 1 MG TABLET PO ×2 (10:26→21:58)
[2023-08-24] MEDS: Perphenazine 8 MG TABLET 16 MG PO ×2 (10:27→21:59)
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
[2023-08-24 21:50] VITALS: BP 139/88; PULSE 81; RESP 16; TEMP 37; O2SAT 96
[2023-08-24] MEDS: Prazosin HCL 1 MG CAPSULE PO (21:58)
[2023-08-24] MEDS: OLANZapine 10 MG TABLET PO (21:58)
[2023-08-25 07:58] VITALS: BP 135/89; PULSE 74; RESP 16; TEMP 36.2; O2SAT 100
[2023-08-25] MEDS: Lithium Carbonate ER 450 MG TABLET.ER PO (08:40)
[2023-08-25] MEDS: Ferrous Sulfate 324 MG TABLET.DR PO (08:40)
[2023-08-25] MEDS: Benztropine Mesylate 1 MG TABLET PO (08:41)
[2023-08-25] MEDS: Ascorbic Acid 250 MG TABLET PO (08:41)
[2023-08-25] MEDS: Perphenazine 8 MG TABLET 16 MG PO (08:41)
== END 2023-08-25 11:57 | disposition home or self-care (01) | DRG 750 ==
PROVIDERS: Physician Assistant; Admitting Provider Psychiatry & Neurology Psychiatry; PCP Pediatrics; Visit Provider Psychiatry & Neurology Psychiatry
DX: F25.0 Schizoaffective disorder, bipolar type (principal); D64.9 Anemia, unspecified; F90.9 Attention-deficit hyperactivity disorder, unspecified type; Q86.0 Fetal alcohol syndrome (dysmorphic); K59.00 Constipation, unspecified; Z87.891 Personal history of nicotine dependence; Z79.51 Long term (current) use of inhaled steroids; Z79.899 Other long term (current) drug therapy
CPT/HCPCS: 36415; 80053; 80061; 80076; 81003; 82607; 82746; 83036; 83540; 84439; 84443; 85025

== ENCOUNTER → 2023-08-16 12:21 | Outpatient (BNV) | payer OTHER, SELFPAY | PROVIDERS: Admitting Provider Psychiatry & Neurology Psychiatry; PCP Pediatrics; Visit Provider Social Worker | DX: F25.0 Schizoaffective disorder, bipolar type (principal); Q86.0 Fetal alcohol syndrome (dysmorphic) | CPT/HCPCS: 99231; 99232 ==

== ENCOUNTER → 2023-08-16 12:21 | Outpatient (BNV) | payer OTHER, SELFPAY | PROVIDERS: Admitting Provider Psychiatry & Neurology Psychiatry; PCP Pediatrics; Visit Provider Physician Assistant | DX: N89.8 Other specified noninflammatory disorders of vagina (principal); D50.9 Iron deficiency anemia, unspecified | CPT/HCPCS: 99221 ==

== ENCOUNTER 2024-06-11 16:41 | Inpatient (IN) | payer OTHER, SELFPAY ==
--- OUTSIDE RECORDS SUMMARY | 2024-06-11 16:45 | XMS_ITS | Continuity of Care Document ---
Author Organization [facility] Address [address] [place] [address]- Care Team Providers Care Plant Ecologist Name Role Phone Fatoumata Stokes DO Primary Care Physician [facility]counter [facility] Date(s): 08/29/23 - 09/28/23 [facility] [address] [place], [place] [address] Allergies, Adverse Reactions, Alerts Substance [...] Given tetanus/diphtheria/pertussis, acel(Tdap) 05/26/11 Given tetanus/diphtheria/pertussis, acel(Tdap) 11/5/10 Given pneumococcal 23-valent vaccine 07/11/13 Given Meningococcal [...] Note: Clinical Varicella at age 5 Medications ferrous sulfate 325 mg oral enteric coated [...] 0 Refills, Maintenance, 07/05/23 0:27:00 EDT, Nasal [place], Partial fill upon patient request if the prescription is for a schedule II opioid drug. Start Date: 07/05/23 Status: Ordered lithium 450 mg oral tablet, extended release 1 tablet = 450 mg, By Mouth, 2 times a day, # 120 tablet, 0 Refills, Maintenance, 09/08/23 17:32:00EST, ER Tablet, Partial fill upon patient request if the prescription is for a schedule II opioid drug. Start Date: 09/08/23 Status: Ordered lithium 600 mg oral capsule 1 capsule = 600 mg, By Mouth, 2 times a day, # 60 capsule, 0 Refills, Maintenance, 07/19/23 13:49:00 EDT, Capsule, [facility], Partial fill upon patient request if the prescription is for aschedule II opioid drug., 163, cm, 07/19/23 9:15:00... Start Date: 07/19/23 Stop Date: 08/18/23 Status: Ordered loratadine 10 mg oral tablet 10 mg, 1, tablet, By Mouth, Daily, # 30 tablet, Refills 0, Maintenance, 09/08/23 17:40:00 EST, Partial fill upon patient request if the prescription is for a schedule II opioid drug. Start Date: 09/08/23 Status: Ordered MiraLax Powder 1 pack/packet = 17 Gm, By Mouth, Daily, 0 Refills, Maintenance, 07/05/23 0:27:00 EDT, Powder, Partial fill upon patient request if the prescription is for a schedule II opioid drug. Start Date: 07/05/23 Status: Ordered perphenazine 8 mg oral tablet 16 mg, 2, tablet, By Mouth, 2 times a day, # 180 tablet, Refills 0, Maintenance, 09/08/23 17:34:00 EST, Partial fill upon patient request if the prescription is for a schedule II opioid drug. Start Date: 09/08/23 Status: Ordered prazosin 1 mg oral capsule 1 mg, 1, capsule, By Mouth, Daily at bedtime, # 30 capsule, Refills 0, Tot. Refills 0, Maintenance,07/19/23 13:53:00 EDT, Route to Pharmacy Electronically, [facility], Partial fill upon patient request if the prescription is for a schedule... Start Date: 07/19/23 Stop Date: 08/18/23 Status: Ordered traZODone 50 mg oral tablet 50 mg, 1, tablet, By Mouth, Daily at bedtime, # 30 tablet, Refills 0, Tot. Refills 0, Maintenance, 07/19/23 13:53:00 EDT, Route to Pharmacy Electronically, [facility], Partial fill upon patient request if the prescription is for a schedule I... Start Date: 07/19/23 Stop Date: 08/18/23 Status: Ordered Vitamin C 250 mg oral tablet 1 tablet = 250 mg, By Mouth, Daily, # 30 tablet, 0 Refills, Maintenance, 09/08/23 17:33:00 EST, Tablet, Partial fill upon patient request if the prescription is for a schedule II opioid drug. Start Date: 09/08/23 Status: Ordered ZyPREXA 10 mg oral tablet 10 mg, 1, tablet, By Mouth, Daily at bedtime, # 30 tablet, Refills 0, Tot. Refills 0, Maintenance, 07/19/23 13:50:00 EDT, Route to Pharmacy Electronically, [facility], Partial fill upon patient request if [...] historian Confirmed Active Psychosis Confirmed 2010 Active Frequent falls Confirmed Active Schizoaffective schizophrenia [...] Display: History and Physical Hospital Authored Date: [id number] [place], [place] PSYCHIATRIC HISTORY ASSESS EXAM NAME: LORETTA CELESTIN : 89 MR#: [id number] PCP: ADMITTED: 12/20/15 DATE OF SERVICE: 12/20/15 HPI - Hosp Psych H P Chief Complaint Pt was sent from [facility] here for hallunication History of Present Illness 24 yo AA Female with known schizophrenia was seen [place] [facility] [place]. Apparently pt has been lived in usp and sent to [facility] [place] acute exacerbation of her [...] QDAY Haloperidol* (Haldol*) 5 MG PO BID [place] Carbonate SR* (Lithobid*) 300 MG PO QDAY liTHIum Carbonate SR* ([place] Carbonate SR*) 450 MG PO 4PM Discontinued Reported Medications Citalopram* (CeleXA*) 40 MG PO QDAY Benztropine* 0.5 MG PO BID buPROPion SR* 150 MG PO [id number] Trazodone* (Desyrel*) 100 MG PO HS RisperiDONE* [...] 324 MG QDAY 12/20 09 CKD PO [place] Carbonate 300 MG QDAY 12/20 09 AC PO Polyethylene Glycol 17 GM QDAY 12/20 09 CKD PO Benztropine Mesylate 1 MG 0900,12/19 1700 AC PO Docusate Sodium 100 MG 0900,12/19 1700 AC PO Haloperidol 5 MG 0900,12/19 1700 AC PO [place] Carbonate 450 MG PM 12/19 1700 AC [...] fullly ambulartory Care Level Complexity of Care [id number] Comprehensive history, comprehensive examination, medical decision making of low complexity, at least 20 minutes at the bedside, patient's floor/ unit. ESigned by: YAS GARZA MD Date:12/21/15 Time:1633 / NOT FOR REDISCLOSURE WITHOUT PATIENT'S INFORMED CONSENT Admission evaluation note * Event Display: Admit Notes Authored Date: [id number] [place], [place] PSYCHIATRIC ADMISSION NOTE NAME: LORETTA CELESTIN : 89 HOSPITAL #: [id number] MR #: [id number] CHART LOC: PCP: DICTATING: MARIA R Robin MD DATE OF ADMISSION: 12/20/15 DATE OF SERVICE: 12/21/15 CHIEF COMPLAINT: This 23-year-old woman was admitted to [facility] on 12/20/15 [...] is living in a usp. Came to [place] with her grandmother in [...] year NAME: LORETTA CELESTIN : 89 HOSP#: [id number] MR#: [id number] CHART LOC: PCP: DICTATING: MARIA R Robin MD PSYCHIATRIC ADMISSION NOTE CONTINUED: unknown. TREATMENT PLAN: Resume outpatient medications, physical exam, collateral contact with community caregivers and social network, safety plan, aftercare plan and observe. 927 T:sn DD:[id number] TD:0745 DT:[id number] TT:0924 JOB:[id number] MICHELLE/SHANNON MARIA R Robin MD ESigned by: Date:12/22/15 Time:642 NOT FOR REDISCLOSURE WITHOUT PATIENT'S INFORMED CONSENT Patient Care team information Care Team Personnel Name: Dean Rivas RN Position: [facility] RN Member Role: Primary Care Nurse Name: Jolanta Ace RN Position: [facility] RN Supv Member Role: Primary Care Nurse Name: Fatoumata Stokes DO Position: [facility] Physician - Primary Care Member Role: PCP Address: Address: [address] [place] [address] Adult & [place] [address]- Name: Britt Polanco RN Position: [facility] RN Member Role: Primary Care Nurse Name: Awilda Grider RN Position: S RN Member Role: Primary Care Nurse Name: Meagan Darden RN Position: [facility] RN Member Role: Primary Care Nurse Name: Chintan Leach DO Position: [facility] Renal MD Member Role: Lifetime Consulting Physician Address: Address: [address] [place], [place] [address] [place] [address]- Name: Chandler Ye RN Position: [facility] RN Member Role: Primary Care Nurse Name: Apurva Ji RN Position: [facility] ED RN W/OE and Tasks Member Role: Primary Care Nurse Name: Cordelia Matias RN Position: [facility] AMB Nurse Member Role: Primary Care Nurse Name: Riya Moore RN Position: [facility] RN Member Role: Primary Care Nurse Name: Radha Gutierrez Position: [facility] Outreach Member Role: Primary Care Nurse Name: Keenan Vincent RN Position: [facility] SN RN Member Role: Primary Care Nurse Name: Sasha Patricio RN Position: [facility] RN Member Role: Primary Care Nurse Name: Virgie Angel Position: [facility] RN Member Role: Primary Care Nurse Name: Emma Kaminski RN Position: [facility] RN Member Role: Primary Care Nurse Name: Malu Palomo Position: [facility] RN Member Role: Primary Care Nurse Name: Azeb Gusman RN Position: [facility] RN Member Role: Primary Care Nurse Name: Asher Diaz RN Position: [facility] RN Member Role: Primary Care Nurse Name: Kim Cornell RN Position: [facility] RN Member Role: Primary Care Nurse Name: Meredith Martinez RN Position: [facility] RN Member Role: Primary Care Nurse Name: Anika Gotti RN Position: [facility] RN Member Role: Primary Care Nurse Name: Kvng Tompkins RN Position: [facility] ED RN W/OE and Tasks Member Role: Primary Care Nurse Name: Rafiq Muñoz RN Position: [facility] RN Member Role: Primary Care Nurse Name: Justina Walker RN Position: [facility] RN Member Role: Primary Care Nurse Name: Ivone Hidalgo RN Position: [facility] RN Member Role: Primary Care Nurse Name: Mazin Penn MD Position: [facility] Physician - Behavioral Health Member Role: Lifetime Consulting Physician Address: Address: [address] [place] [address]- [place] Care Team Related Persons Name: DORITA MCCOLLUM Address: [address] [place] [address] Name: STEW PECK Address: home [address] [facility], [address] Name: LISA PALMA Address: home [address] [place] [address]
--- OUTSIDE RECORDS SUMMARY | 2024-06-11 16:45 | XMS_ITS | Continuity of Care Document ---
Author Organization [facility] [place] Address [address] [address]- Care Team Providers Care Firm Administrator Name Role Phone Fatoumata Stokes DO Primary Care Physician ( [phone] Encounter [facility] Date(s): 02/02/24 - 03/03/[address] [address]- Allergies, Adverse Reactions, Alerts Substance Reaction Severity Status Flagyl Active Haldol Active Invega Active cloZAPine Active paliperidone Active Immunizations Given and Recorded Vaccine Date Status Refusal Reason influenza virus vaccine, inactivated 10/18/23 Give n influenza virus vaccine, inactivated 09/11/22 Give n [...] Clinical Varicella at age 5 Medications acetaminophen 500 mg oral tablet 2 tablet = 1,000 mg, By Mouth, 2 times a day, PRN Pain , Mild, # 100 tablet, 0 Refills, Maintenance, 02/17/24 9:30:00 EDT, Tablet, [facility], Partial fill upon patient request if the prescription is for a schedule II opioid drug., 163, cm,... Start Date: 02/17/24 Status: Ordered benztropine 1 mg oral tablet 1 mg, 1, tablet, By Mouth, 2 times a day, # 60 tablet, Refills 0, Maintenance, 10/17/23 1:58:00 EST, Partial fill upon patient request if the prescription is for a schedule II opioid drug. Start Date: 10/17/23 Status: Ordered Diflucan 150 mg oral tablet 1 tablet = 150 mg, By Mouth, Every 72 hours, to treat yeast., # 2 tablet, 0 Refills, Soft Stop, 12/21/23 15:20:00 EDT, Tablet, [facility], Partial fill upon patient request if the prescription is for a schedule II opioid drug., 163, cm, 11/25... Start Date: 12/21/23 Status: Ordered ferrous sulfate 325 mg oral enteric coated tablet See Instructions, Take one tablet By Mouth every other day. Take with vitamin C to help absorption at 9am, # 45 tablet, Refills 1, Tot. Refills 1, Maintenance, 02/17/24 9:33:00 EDT, Instructions Replace Required Details, Route to Pharmacy Electronical... Start Date: 02/17/24 Status: Ordered ferrous sulfate 325 mg oral [...] 0 Refills, Maintenance, 07/05/23 0:27:00 EDT, Nasal [place], Partial fill upon patient request if the [...] opioid drug. Start Date: 09/08/23 Status: Ordered loratadine 10 mg oral tablet 1, tablet, By Mouth, Daily, AT 9AM., # 30 tablet, Refills 0, Maintenance, 02/13/24 16:31:00 EDT, Route to Pharmacy Electronically, [facility], 163, cm, 02/11/24 1:23:00 EDT, Height, 96.5, kg, 02/11/24 1:23:00 EDT, Dry Weight Start Date: 02/13/24 Status: Ordered MiraLax Powder 1 pack/packet = 17 Gm, By Mouth, Daily, 0 Refills, Maintenance, 07/05/23 0:27:00 EDT, Powder, Partial fill upon patient request if the prescription is for a schedule II opioid drug. Start Date: 07/05/23 Status: Ordered omeprazole 10 mg oral enteric coated capsule 1 capsule = 10 mg, By Mouth, Daily, # 90 capsule, 0 Refills, Maintenance, 12/23/23 17:55:00 EDT, ECCapsule, [facility], Partial fill upon patient request if the prescription is for a schedule II opioid drug., 163, cm, 12/19/23 12:00:00 EDT,... Start Date: 12/23/23 Status: Ordered perphenazine 8 mg oral tablet [...] Maintenance,07/19/23 13:53:00 EDT, Route to Pharmacy Electronically, [facility], Partial fill upon patient request if the prescription is for a schedule... Start Date: 07/19/23 Stop Date: 08/18/23 Status: Ordered Provera 10 mg oral tablet 10 mg, 1, tablet, By Mouth, Daily, call the office at [phone] if you do not get a menstrual cycle., # 10 tablet, Refills 0, Tot. Refills 0, Maintenance, 12/21/23 15:20:00 EDT, Route to Pharmacy Electronically, [facility], Partial fill u... Start Date: 12/21/23 Stop Date: 12/31/23 Status: Ordered traZODone 50 mg oral tablet 50 mg, 1, tablet, By Mouth, Daily at bedtime, # 30 tablet, Refills 0, Tot. Refills 0, Maintenance, 07/19/23 13:53:00 EDT, Route to Pharmacy Electronically, [facility], Partial fill upon patient request if the prescription is for a schedule I... Start Date: 07/19/23 Stop Date: 08/18/23 Status: Ordered Vitamin C 250 mg oral tablet See Instructions, 1 tablet By Mouth every other day with iron Daily at 9am, # 45 tablet, 11 Refills, Maintenance, 02/17/24 9:32:00 EDT, [facility], 163, cm, 02/17/24 9:01:00 EDT, Height, 96.5, kg, 02/11/24 1:23:00 EDT, Dry Weight Start Date: 02/17/24 Status: Ordered Vitamin C 250 mg oral tablet 1 tablet, By Mouth, Daily in AM, AT 9AM., # 30 tablet, 0 Refills, Maintenance, 02/02/24 15:05:00 EDT, [facility], 163, cm, 01/24/24 9:01:00 EDT, Height, 100.2, kg, 10/17/23 16:02:00 EST, Dry Weight Start Date: 02/02/24 Status: Ordered ZyPREXA 10 mg oral tablet 10 mg, 1, tablet, By Mouth, Daily at bedtime, # 30 tablet, Refills 0, Tot. Refills 0, Maintenance, 07/19/23 13:50:00 EDT, Route to Pharmacy Electronically, [facility], Partial fill upon patient request if the prescription is for a schedule I... Start Date: 07/19/23 Stop Date: 08/18/23 Status: Ordered Problem List Condition Confirmation Course Effective Dates Status Health Status Informant Allergic rhinitis Confirmed Active Chronic constipation Confirmed Active Chronic post-traumatic stress disorder Confirmed Active COVID-19 1 Confirmed 07/16/22 Active Depression Confirmed Active Environmental allergies Confirmed Active alcohol syndrome Confirmed Active Foster Care (Status) Confirmed Active Chronic GERD Confirmed Active Hypernatremia Confirmed Active Hyperprolactinemia Confirmed Active Hypertension Confirmed Active Iron deficiency anemia Confirmed Active [...] Display: History and Physical Hospital Authored Date: [id number] [place], [place] PSYCHIATRIC HISTORY ASSESS EXAM NAME: LORETTA CELESTIN : 89 MR#: [id number] PCP: ADMITTED: 12/20/15 DATE OF SERVICE: 12/20/15 HPI - Hosp Psych H P Chief Complaint Pt was sent from [facility] here for hallunication History of Present Illness 24 yo AA Female with known schizophrenia was seen at [facility] for hallucination. Apparently pt has been lived in intermediate and sent to [facility] for acute exacerbation of her [...] QDAY Haloperidol* (Haldol*) 5 MG PO BID [place] Carbonate SR* (Lithobid*) 300 MG PO QDAY liTHIum Carbonate SR* ([place] Carbonate SR*) 450 MG PO 4PM Discontinued Reported Medications Citalopram* (CeleXA*) 40 MG PO QDAY Benztropine* 0.5 MG PO BID buPROPion SR* 150 MG PO [id number] Trazodone* (Desyrel*) 100 MG PO HS RisperiDONE* [...] Pulse 104 12/19 1414 Resp 16 12/19 141 Current Medications Current Medications Sig/Jessica Start time Last Medication Dose Route/Reason Stop Time Status Admin Ferrous Sulfate 324 MG QDAY 12/20 0900 CKD PO [place] Carbonate 300 MG QDAY 12/20 0900 AC PO Polyethylene Glycol 17 GM QDAY 12/20 09 CKD PO Benztropine Mesylate 1 MG 0900,1700 12/19 1700 AC PO Docusate Sodium 100 MG 0900,1700 12/19 1700 AC PO Haloperidol 5 MG 0900,1700 12/19 1700 AC PO [place] Carbonate 450 MG PM 12/19 1700 AC [...] fullly ambulartory Care Level Complexity of Care V03210 Comprehensive history, comprehensive examination, medical decision making of low complexity, at least 20 minutes at the bedside, patient's floor/ unit. ESigned by: YAS GARZA MD Date:12/21/15 Time:1633 / NOT FOR REDISCLOSURE WITHOUT PATIENT'S INFORMED CONSENT Admission evaluation note * Event Display: Admit Notes Authored Date: [id number] [place], [place] PSYCHIATRIC ADMISSION NOTE NAME: LORETTA CELESTIN : 89 HOSPITAL #: [id number] MR #: [id number] CHART LOC: PCP: DICTATING: MARIA R Robin MD DATE OF ADMISSION: 12/20/15 DATE OF SERVICE: 12/21/15 CHIEF COMPLAINT: This 23-year-old woman was admitted to [facility] on 12/20/15 [...] is living in a intermediate. Came to [place] with her grandmother in [...] year NAME: LORETTA CELESTIN : 89 HOSP#: [id number] MR#: [id number] CHART LOC: PCP: DICTATING: MARIA R Robin MD PSYCHIATRIC ADMISSION NOTE CONTINUED: unknown. TREATMENT PLAN: Resume outpatient medications, physical exam, collateral contact with community caregivers and social network, safety plan, aftercare plan and observe. 927 T:sn DD:20151221 TD:0745 DT:20151221 TT:0924 JOB:[id number] MICHELLE/SHANNON MARIA R Robin MD ESigned by: Date:12/22/15 Time:642 NOT FOR REDISCLOSURE WITHOUT PATIENT'S INFORMED CONSENT Patient Care team information Care Team Personnel Name: Dean Rivas RN Position: S RN Member Role: Primary Care Nurse Name: Jolanta Ace RN Position: S RN Supv Member Role: Primary Care Nurse Name: Fatoumata Stokes DO Position: S Physician - Primary Care Member Role: PCP Address: Address: [address] [place] [address] Adult & Pediatric Medicine [address] Name: Awilda Grider RN Position: [facility] RN Member Role: Primary Care Nurse Name: Meagan Darden RN Position: [facility] RN Member Role: Primary Care Nurse Name: Chintan Leach DO Position: [facility] Renal MD Member Role: Lifetime Consulting Physician Address: Address: [address] [place] [address] [address] [facility] [place] [address]- Name: Chandler Ye RN Position: [facility] RN Member Role: Primary Care Nurse Name: Apurva Ji RN Position: [facility] ED RN W/OE and Tasks Member Role: Primary Care Nurse Name: Cordelia Matias RN Position: [facility] AMB Nurse Member Role: Primary Care Nurse Name: Riya Moore RN Position: [facility] RN Member Role: Primary Care Nurse Name: Radha Gutierrez Position: [facility] Outreach Member Role: Primary Care Nurse Name: Keenan Vincent RN Position: [facility] SN RN Member Role: Primary Care Nurse Name: Sasha Patricio RN Position: [facility] RN Member Role: Primary Care Nurse Name: Virgie Angel RN Position: [facility] RN Member Role: Primary Care Nurse Name: Malu Palomo Position: [facility] RN Member Role: Primary Care Nurse Name: Azeb Gusman RN Position: [facility] RN Member Role: Primary Care Nurse Name: Asher Diaz RN Position: [facility] RN Member Role: Primary Care Nurse Name: Kim Cornell RN Position: [facility] RN Member Role: Primary Care Nurse Name: Meredith Martinez RN Position: [facility] RN Member Role: Primary Care Nurse Name: Anika Gotti RN Position: [facility] RN Member Role: Primary Care Nurse Name: Kvng Tompkins RN Position: [facility] MARISABEL RN W/OE and Tasks Member Role: Primary Care Nurse Name: Rafiq Muñoz RN Position: [facility] RN Member Role: Primary Care Nurse Name: Justina Walker RN Position: [facility] RN Member Role: Primary Care Nurse Name: Ivone Hidalgo RN Position: [facility] RN Member Role: Primary Care Nurse Name: Mazin Penn MD Position: [facility] Physician - Behavioral Health Member Role: Lifetime Consulting Physician Address: Address: [address] [place] [address]- [place] Care Team Related Persons Name: VIRIDIANA MCCOLLUMOPATRA Address: [address] [place] [address] Name: STEW PECK Address: home [address] [place] [address] Name: LISA PALMA Address: [address] [place] [address]
--- OUTSIDE RECORDS SUMMARY | 2024-06-11 16:45 | XMS_ITS | Continuity of Care Document ---
Author Organization [facility] Address [address] [place] [address]- Care Team Providers Care Commodity Management Specialist Name Role Phone Fatoumata Stokes DO Primary Care Physician Encounter [facility] Date(s): 02/09/24 - 03/10/24 [facility] [address] [place], [place] [address] Allergies, Adverse Reactions, Alerts [...] 0 Refills, Maintenance, 02/17/24 9:30:00 EDT, Tablet, [facility], Partial fill upon patient request if the prescription is for a schedule II opioid drug., 163, cm,... Start Date: 02/17/24 Status: Ordered benztropine 1 mg oral tablet 1 mg, 1, tablet, By Mouth, 2 times a day, # 60 tablet, Refills 0, Maintenance, 01/22/24 1:58:00 EST, Partial fill upon patient request if the prescription is for a schedule II opioid drug. Start Date: 10/17/23 Status: Ordered Diflucan 150 mg oral tablet 1 tablet = 150 mg, By Mouth, Every 72 hours, to treat yeast., # 2 tablet, 0 Refills, Soft Stop, 12/21/23 15:20:00 EDT, Tablet, [facility], Partial fill upon patient request if [...] a day, PRN Other, nasal allergy symptoms, # 16 Gm, 0 Refills, Maintenance, 03/09/24 14:42:00 EDT, Nasal [facility] [place], [facility], Partial fill upon patient request if the prescription is for a schedule II opi... Start Date: 03/09/24 Status: Ordered Lidoderm 5% film 1 patch, Topically, Daily, remove patches after 12 hours, # 30 patch, 0 Refills, Maintenance, 03/09/24 14:43:00 EDT, Film, [facility], Partial fill upon patient request if the prescription is for a schedule II opioid drug., 1 patch Topically... Start Date: 03/09/24 Status: Ordered lithium 450 mg oral tablet, [...] 02/13/24 16:31:00 EDT, Route to Pharmacy Electronically, [facility], 163, cm, 02/11/24 1:23:00 EDT, Height, [...] 0 Refills, Maintenance, 12/23/23 17:55:00 EDT, ECCapsule, [facility], Partial fill upon patient request if [...] By Mouth, Daily, call the office at [phone] if you do not get a menstrual cycle., # 10 tablet, Refills 0, Tot. Refills 0, Maintenance, 12/21/23 15:20:00 EDT, Route to Pharmacy Electronically, [facility], Partial fill u... Start Date: 12/21/23 Stop Date: 12/31/23 Status: Ordered traZODone 50 mg oral tablet 50 mg, 1, tablet, By Mouth, Daily at bedtime, # 30 tablet, Refills 0, Tot. Refills 0, Maintenance, 07/19/23 13:53:00 EDT, Route to Pharmacy Electronically, [facility], Partial fill upon patient request if the prescription is for a schedule I... Start Date: 07/19/23 Stop Date: 08/18/23 Status: Ordered Vitamin C 250 mg oral tablet See Instructions, 1 tablet By Mouth every other day with iron Daily at 9am, # 45 tablet, 11 Refills, Maintenance, 02/17/24 9:32:00 EDT, [facility], 163, cm, 02/17/24 9:01:00 EDT, Height, 96.5, kg, 02/11/24 1:23:00 EDT, Dry Weight Start Date: 02/17/24 Status: Ordered Vitamin C 250 mg oral tablet 1 tablet, By Mouth, Daily in AM, AT 9AM., # 30 tablet, 0 Refills, Maintenance, 02/02/24 15:05:00 EDT, [facility], 163, cm, 01/24/24 9:01:00 EDT, Height, 100.2, [...] Display: History and Physical Hospital Authored Date: [id number] [place], [place] PSYCHIATRIC HISTORY ASSESS EXAM NAME: LORETTA CELESTIN : 89 MR#: [id number] PCP: ADMITTED: 12/20/15 DATE OF SERVICE: 12/20/15 HPI - Hosp Psych H P Chief Complaint Pt was sent from [facility] ER here for hallunication History of Present Illness 24 yo AA Female with known schizophrenia was seen at [facility] for hallucination. Apparently pt has been lived in assisted and [facility] QDAY Haloperidol* (Haldol*) 5 MG PO BID Neville Carbonate SR* (Lithobid*) 300 MG PO QDAY liTHIum Carbonate SR* (Neville Carbonate SR*) 450 MG PO 4PM Discontinued Reported Medications Citalopram* (CeleXA*) 40 MG PO QDAY Benztropine* 0.5 MG PO BID buPROPion SR* 150 MG PO [id number] Trazodone* (Desyrel*) 100 MG PO HS RisperiDONE* [...] 324 MG QDAY 12/20 0900 CKD PO Neville Carbonate 300 MG QDAY 12/20 0900 AC PO Polyethylene Glycol 17 GM QDAY 12/20 0900 CKD PO Benztropine Mesylate 1 MG 0900,1700 12/19 1700 AC PO Docusate Sodium 100 MG 0900,1700 12/19 1700 AC PO Haloperidol 5 MG 0900,1700 12/19 1700 AC PO Neville Carbonate 450 MG PM 12/19 1700 AC [...] fullly ambulartory Care Level Complexity of Care [id number] Comprehensive history, comprehensive examination, medical decision making of low complexity, at least 20 minutes at the bedside, patient's floor/ unit. ESigned by: YAS GARZA MD Date:12/21/15 Time:1633 / NOT FOR REDISCLOSURE WITHOUT PATIENT'S INFORMED CONSENT Admission evaluation note * Event Display: Admit Notes Authored Date: [id number] [place], [place] PSYCHIATRIC ADMISSION NOTE NAME: LORETTA CELESTIN : 89 HOSPITAL #: [id number] MR #: [id number] CHART LOC: PCP: DICTATING: MARIA R Robin MD DATE OF ADMISSION: 12/20/15 DATE OF SERVICE: 12/21/15 CHIEF COMPLAINT: This 23-year-old woman was admitted to [facility] on 12/20/15 on a Conditional Voluntary application because of suicidal ideation. HISTORY OF PRESENT ILLNESS: The patient has been treated for schizoaffective disorder depressed type, posttraumatic stress disorder, intellectual disability and alcohol syndrome with multiple hospitalizations for self-harming behavior and suicidal ideation. She presented to Crisis Services from her assisted reporting that she was having urges to [...] how they had evolved. Staff at the assisted where she lives reported her as unusually [...] HISTORY: The patient is living in a assisted. Came to [place] with her grandmother in 2013, was very [...] year NAME: LORETTA CELESTIN : 89 HOSP#: [id number] MR#: [id number] CHART LOC: PCP: DICTATING: MARIA R Robin MD PSYCHIATRIC ADMISSION NOTE CONTINUED: unknown. TREATMENT PLAN: Resume outpatient medications, physical exam, collateral contact with community caregivers and social network, safety plan, aftercare plan and observe. 927 T:sn DD:[id number] TD:0745 DT:20151221 TT:09 JOB:[id number] TORIE MARIA R Robin MD ESigned by: Date:12/22/15 Time:642 NOT FOR REDISCLOSURE WITHOUT PATIENT'S INFORMED CONSENT Patient Care team information Care Team Personnel Name: Dean Rivas RN Position: [facility] RN Member Role: Primary Care Nurse Name: Jolanta Ace RN Position: [facility] RN Supv Member Role: Primary Care Nurse Name: Fatoumata Stokes DO Position: [facility] Physician - Primary Care Member Role: PCP Address: Address: [address] [place] [address] Adult [place] [address]- [place] Name: Awilda Grider RN Position: [facility] RN Member Role: Primary Care Nurse Name: Meagan Darden RN Position: [facility] RN Member Role: Primary Care Nurse Name: Chintan Leach DO Position: [facility] Renal MD Member Role: Lifetime Consulting Physician Address: Address: [address] [place] [address] [address] [facility] [place] [address]- Name: Chandler Ye RN Position: [facility] RN Member Role: Primary Care Nurse Name: Apurva Ji RN Position: [facility] ED RN W/OE and Tasks Member Role: Primary Care Nurse Name: Cordelia Matias RN Position: [facility] AMB Nurse Member Role: Primary Care Nurse Name: Riya Moore RN Position: [facility] RN Member Role: Primary Care Nurse Name: Rahda Gutierrez Position: [facility] Outreach Member Role: Primary Care Nurse Name: Keenan Vincent RN Position: [facility] SN RN Member Role: Primary Care Nurse Name: Sasha Patricio RN Position: [facility] RN Member Role: Primary Care Nurse Name: Virgie Angel RN Position: [facility] RN Member Role: Primary Care Nurse Name: Malu Palomo Position: [facility] RN Member Role: Primary Care Nurse Name: Azeb Gusman RN Position: [facility] RN Member Role: Primary Care Nurse Name: Asher Diaz RN Position: [facility] RN Member Role: Primary Care Nurse Name: Kim Cornell RN Position: [facility] RN Member Role: Primary Care Nurse Name: Meredith Martinez RN Position: [facility] RN Member Role: Primary Care Nurse Name: Anika Gotti RN Position: [facility] RN Member Role: Primary Care Nurse Name: Kvng Tompkins RN Position: [facility] ED RN W/OE and Tasks Member Role: Primary Care Nurse Name: Rafiq Muñoz RN Position: [facility] RN Member Role: Primary Care Nurse Name: Justina Walker RN Position: [facility] RN Member Role: Primary Care Nurse Name: Ivone Hidalgo RN Position: [facility] RN Member Role: Primary Care Nurse Name: Mazin Penn MD Position: [facility] Physician - Behavioral Health Member Role: Lifetime Consulting Physician Address: Address: [address] [place] [address]- [place] Care Team Related Persons Name: DORITA MCCOLLUM Address: [address] [place] [address] Name: STEW PECK Address: home [address] [place] [address] Name: LISA PALMA Address: [address] [place] [address]
--- OUTSIDE RECORDS SUMMARY | 2024-06-11 16:45 | XMS_ITS | Continuity of Care Document ---
Author Organization [facility] ter Address [address] [place] [address]- Care Team Providers Care Block Sorter Name Role Phone Fatoumata Stokes DO Primary Care Physician Encounter [facility] Date(s): 04/06/24 - 04/06/[address] [address]- Encounter Diagnosis Shortness of breath(Final) - 04/06/24 Discharge Disposition: A-D/C Home Attending Physician: Oliver [...] 0 Refills, Maintenance, 02/17/24 9:30:00 EDT, Tablet, [facility], Partial fill upon patient request if [...] Refills, Soft Stop, 12/21/23 15:20:00 EDT, Tablet, [facility], Partial fill upon patient request if [...] 0 Refills, Maintenance, 03/09/24 14:42:00 EDT, Nasal [place], [facility], Partial fill upon patient request if the prescription is for a schedule II opi... Start Date: 03/09/24 Status: Ordered Lidoderm 5% film 1 patch, Topically, Daily, remove patches after 12 hours, # 30 patch, 0 Refills, Maintenance, 03/09/24 14:43:00 EDT, Film, [facility], Partial fill upon patient request if [...] 02/13/24 16:31:00 EDT, Route to Pharmacy Electronically, [facility], 163, cm, 02/11/24 1:23:00 EDT, Height, [...] 0 Refills, Maintenance, 12/23/23 17:55:00 EDT, ECCapsule, [facility], Partial fill upon patient request if [...] Maintenance,07/19/23 13:53:00 EDT, Route to Pharmacy Electronically, [facility], Partial fill upon patient request if the prescription is for a schedule... Start Date: 07/19/23 Stop Date: 08/18/23 Status: Ordered Provera 10 mg oral tablet 10 mg, 1, tablet, By Mouth, Daily, call the office at [phone] if you do not get a menstrual cycle., # 10 tablet, Refills 0, Tot. Refills 0, Maintenance, 12/21/23 15:20:00 EDT, Route to Pharmacy Electronically, [facility], Partial fill u... Start Date: 12/21/23 Stop Date: 12/31/23 Status: Ordered traZODone 50 mg oral tablet 50 mg, 1, tablet, By Mouth, Daily at bedtime, # 30 tablet, Refills 0, Tot. Refills 0, Maintenance, 07/19/23 13:53:00 EDT, Route to Pharmacy Electronically, [facility], Partial fill upon patient request if the prescription is for a schedule I... Start Date: 07/19/23 Stop Date: 08/18/23 Status: Ordered Vitamin C 250 mg oral tablet See Instructions, 1 tablet By Mouth every other day with iron Daily at 9am, # 45 tablet, 11 Refills, Maintenance, 02/17/24 9:32:00 EDT, [facility], 163, cm, 02/17/24 9:01:00 EDT, Height, 96.5, kg, 02/11/24 1:23:00 EDT, Dry Weight Start Date: 02/17/24 Status: Ordered Vitamin C 250 mg oral tablet 1 tablet, By Mouth, Daily in AM, AT 9AM., # 30 tablet, 0 Refills, Maintenance, 02/02/24 15:05:00 EDT, [facility], 163, cm, 01/24/24 9:01:00 EDT, Height, 100.2, kg, 10/17/23 16:02:00 EST, Dry Weight Start Date: 02/02/24 Status: Ordered ZyPREXA 10 mg oral tablet 10 mg, 1, tablet, By Mouth, Daily at bedtime, # 30 tablet, Refills 0, Tot. Refills 0, Maintenance, 07/19/23 13:50:00 EDT, Route to Pharmacy Electronically, [facility], Partial fill upon patient request [...] Exam Date Time Procedure Performing Provider Status 04/06/24 12:32 PM Chest 2 Views Frontal and Lat Es An; Auth (Verified) Notes: (Chest 2 Views Frontal and Lat) Reason For Exam: Shortness of Breath RESULT: Chest 2 Views Frontal and Lat Chest 2 Views Frontal and Lat Hx of Present Illness: Per EMS, pt coming from a [facility] for behavioral help- called ems for reports of sob and chest pain- pt reports she has had several episodes a day of this for years- speaking full sentences- even non-labored resp- no tripodding or accessory muscle use.; Reason: Shortness of Breath; Clinical Question(s): CHF COMPARISON: Multiple prior chest radiographs with the most recent dated 03/27/2024. FINDINGS: LINES AND TUBES: None. LUNGS AND PLEURA: Low lung volumes with mild bibasilar atelectasis. Otherwise clear lungs. Normal pulmonary vascularity. No pleural effusion. No pneumothorax. HEART, MEDIASTINUM AND JUANA: Heart is normal in size. Normal mediastinal and hilar contour. BONES AND SOFT TISSUES: No acute abnormality. IMPRESSION: Poor lung volumes with mild bibasilar atelectasis. No definite acute cardiopulmonary disease is seen. No interval change. WSN: [id number] Ordering Physician: Carmita Moreland Dictated By: Pepe Malone MD, V Dictated Date/Time: 04/06/24 1:06 pm Reviewed By: Pepe Malone MD, V Signed By: Pepe Malone MD, V Signed Date/Time: 04/06/24 1:06 pm Transcribed By: TOMMY Transcribed Date/Time: 04/06/24 1:03 pm Vital Signs Most recent to oldest [Reference Range]: 1 2 Height 163 cm (04/06/24 11:04 AM) Weight 55 kg (04/06/24 11:04 AM) Oxygen Saturation [94-100 %] 98 % (04/06/24 2:26 PM) 100 % (04/06/24 11:04 AM) Pulse Rate [55-90 bpm] 85 bpm (04/06/24 2:26 PM) 89 bpm (04/06/24 11:04 AM) Blood Pressure [90-138/55-84 mm Hg] 122/ 76mm Hg (04/06/24 2:26 PM) 127/76mm Hg (04/06/24 11:04 AM) Respiratory Rate [16-30 br/min] 14 br/mi n *L* (04/06/24 2:26 PM) 20 br/min (04/06/24 11:04 AM) Temperature [96.8-100.4 DegF] 98 DegF (04/06/24 11:04 AM) Mode of Delivery (Oxygen) Room air (04/06/24 2:26 PM) Room air (04/06/24 11:04 AM) Blood pressure sites Arm, left (04/06/24 2:26 PM) Arm, left (04/06/24 11:04 AM) Temperature Route Oral (04/06/24 11:04 AM) Dry Weight 55 kg (04/06/24 11:04 AM) Social History Social History Type Response Smoking Status 5-9 cigarettes (betw een 1/4 to 1/2 pack)/day in last 30 days; Interested in cessation: No; Patient wants NRT during admission Yes; Other: will accept nicotine gum; entered on: 07/14/23 Sex History and physical note * Event Display: History and Physical Hospital Authored Date: [id number] [place], [place] PSYCHIATRIC HISTORY ASSESS EXAM NAME: LORETTA CELESTIN : 89 MR#: [id number] PCP: ADMITTED: 12/20/15 DATE OF SERVICE: 12/20/15 HPI - Hosp Psych H P Chief Complaint Pt was sent from [facility] ER here for hallunication History of Present Illness 24 yo AA Female with known schizophrenia was seen at [facility] for hallucination. Apparently pt has been lived in chcf and sent to [facility] for acute exacerbation of her underline schizophrenia. [...] QDAY Haloperidol* (Haldol*) 5 MG PO BID Chalmers Carbonate SR* (Lithobid*) 300 MG PO QDAY liTHIum Carbonate SR* (Chalmers Carbonate SR*) 450 MG PO 4PM Discontinued Reported Medications Citalopram* (CeleXA*) 40 MG PO QDAY Benztropine* 0.5 MG PO BID buPROPion SR* 150 MG PO [id number] Trazodone* (Desyrel*) 100 MG PO HS RisperiDONE* [...] 324 MG QDAY 12/20 899 CKD PO Chalmers Carbonate 300 MG QDAY 12/20 899 AC PO Polyethylene Glycol 17 GM QDAY 12/20 899 CKD PO Benztropine Mesylate 1 MG 09,12/19 1700 AC PO Docusate Sodium 100 MG 0900,12/19 1700 AC PO Haloperidol 5 MG 09,12/19 1700 AC PO Chalmers Carbonate 450 MG PM 12/19 1700 AC [...] fullly ambulartory Care Level Complexity of Care I28127 Comprehensive history, comprehensive examination, medical decision making of low complexity, at least 20 minutes at the bedside, patient's floor/ unit. ESigned by: YAS GARZA MD Date:12/21/15 Time:1633 / NOT FOR REDISCLOSURE WITHOUT PATIENT'S INFORMED CONSENT Admission evaluation note * Event Display: Admit Notes Authored Date: [id number] [place], [place] PSYCHIATRIC ADMISSION NOTE NAME: LORETTA CELESTIN : 89 HOSPITAL #: [id number] MR #: [id number] CHART LOC: PCP: DICTATING: MARIA R Robin MD DATE OF ADMISSION: 12/20/15 DATE OF SERVICE: 12/21/15 CHIEF COMPLAINT: This 23-year-old woman was admitted to [facility] on 12/20/15 on a Conditional Voluntary application [...] is living in a chcf. Came to [place] with her grandmother in [...] year NAME: LORETTA CELESTIN : 89 HOSP#: [id number] MR#: [id number] CHART LOC: PCP: DICTATING: MARIA R Robin MD PSYCHIATRIC ADMISSION NOTE CONTINUED: unknown. TREATMENT PLAN: Resume outpatient medications, physical exam, collateral contact with community caregivers and social network, safety plan, aftercare plan and observe. 927 T:sn DD:[id number] TD:0745 DT:20151221 TT:0924 [id number] MICHELLE/SHANNON MARIA R Robin MD ESigned by: Date:12/22/15 Time:0643 NOT FOR REDISCLOSURE WITHOUT PATIENT'S INFORMED CONSENT EKG study * Event Display: ECG 12-Lead Authored Date: Please click on pdf link to open report * Event Display: ECG 12-Lead Authored Date: Ventricular Rate: 74 BPM Atrial Rate: 74 BPM P-R Interval: 158 ms QRS Duration: 82 ms Q-T Interval: 396 ms QTC Calculation(Bazett): 439 ms P [place]: 53 degrees R [place]: 53 degrees T [place]: 28 degrees Normal sinus rhythm Normal ECG When compared with ECG of 27-MAR-2024 12:09, No significant change was found Confirmed by Chandler Torres ([id number]) on 04/06/2024 1:30:45 PM [place]: Chandler Torres Patient Care team information Care Team Personnel Name: Dean Rivas RN Position: S RN Member Role: Primary Care Nurse Name: Jolanta Ace RN Position: S RN Supv Member Role: Primary Care Nurse Name: Faotumata Stokes DO Position: S Physician - Primary Care Member Role: PCP Address: Address: [address] [place] [address] Adult & Pediatric Medicine [address] Name: Awilda Grider RN Position: S RN Member Role: Primary Care Nurse Name: Meagan Darden RN Position: [facility] RN Member Role: Primary Care Nurse Name: Chintan Leach DO Position: [facility] Renal MD Member Role: Lifetime Consulting Physician Address: Address: [address] [place] [address] [address] [facility] [place] [place] [address]- Name: Chandler Ye RN Position: [facility] RN Member Role: Primary Care Nurse Name: Apurva Ji RN Position: [facility] ED RN W/OE and Tasks Member Role: Primary Care Nurse Name: Cordelia Matias RN Position: [facility] AMB Nurse Member Role: Primary Care Nurse Name: Riya Moore RN Position: [facility] RN Member Role: Primary Care Nurse Name: Radha Gutierrez Position: [facility] Outreach Member Role: Primary Care Nurse Name: Keenan Vincent RN Position: [facility] SN RN Member Role: Primary Care Nurse Name: Sasha Patricio RN Position: [facility] RN Member Role: Primary Care Nurse Name: Virgie Angel RN Position: [facility] RN Member Role: Primary Care Nurse Name: Malu Palomo Position: [facility] RN Member Role: Primary Care Nurse Name: Azeb Gusman RN Position: [facility] RN Member Role: Primary Care Nurse Name: Kim Cornell RN Position: [facility] RN Member Role: Primary Care Nurse Name: Meredith Martinez RN Position: [facility] RN Member Role: Primary Care Nurse Name: Anika Gotti RN Position: [facility] RN Member Role: Primary Care Nurse Name: Kvng Tompkins RN Position: [facility] ED RN W/OE and Tasks Member Role: Primary Care Nurse Name: Rafiq Muñoz RN Position: [facility] RN Member Role: Primary Care Nurse Name: Justina Walker RN Position: [facility] RN Member Role: Primary Care Nurse Name: Ivone Hidalgo RN Position: [facility] RN Member Role: Primary Care Nurse Name: Mazin Penn MD Position: [facility] Physician - Behavioral Health Member Role: Lifetime Consulting Physician Address: Address: [address] [place] [address]- [place] Care Team Related Persons Name: CHUNDORITA Address: [address] [place] [address] Name: STEW PECK Address: [address] [place] [address] Name: LISA PALMA Address: [address] [place] [address]
--- OUTSIDE RECORDS SUMMARY | 2024-06-11 16:45 | XMS_ITS | Continuity of Care Document ---
Author Organization [facility] Address [address] [place] [address]- Care Team Providers Care Line Construction Engineer Name Role Phone Fatoumtaa Stokes DO Primary Care Physician ( [phone] Encounter [facility] Date(s): 03/16/24 - 04/18/[address] [address] [[email or web address]] Attending Physician: Fatoumata Stokes DO Admitting Physician: Fatoumata Stokes DO Referring Physician: Fatoumata Stokes DO Allergies, Adverse [...] 0 Refills, Maintenance, 02/17/24 9:30:00 EDT, Tablet, [facility], Partial fill upon patient request if [...] # 2 tablet, 0 Refills, Soft Stop, 04/09/24 12:02:00 EDT, Tablet, [facility], Partial fill upon patient request if the prescription is for a schedule II opioid drug., 163, cm, 03/26... Start Date: 04/09/24 Status: Ordered ferrous sulfate 325 mg oral [...] 0 Refills, Maintenance, 03/09/24 14:42:00 EDT, Nasal [place], [facility], Partial fill upon patient request if the prescription is for a schedule II opi... Start Date: 03/09/24 Status: Ordered Lidoderm 5% film 1 patch, Topically, Daily, remove patches after 12 hours, # 30 patch, 0 Refills, Maintenance, 03/09/24 14:43:00 EDT, Film, [facility], Partial fill upon patient request if [...] Status: Ordered loratadine 10 mg oral tablet See Instructions, TAKE 1 TABLET BY MOUTH AT 9AM, # 30 tablet, Refills 0, Maintenance, 04/09/24 12:59:00 EDT, Instructions Replace Required Details, Route to Pharmacy Electronically, [facility], 163, cm, 04/09/24 11:20:00 EDT, Height, 102.7,... Start Date: 04/09/24 Status: Ordered MiraLax Powder 1 pack/packet = [...] 0 Refills, Maintenance, 12/23/23 17:55:00 EDT, ECCapsule, [facility], Partial fill upon patient request if [...] Maintenance,07/19/23 13:53:00 EDT, Route to Pharmacy Electronically, [facility], Partial fill upon patient request if the prescription is for a schedule... Start Date: 07/19/23 Stop Date: 08/18/23 Status: Ordered Provera 10 mg oral tablet 10 mg, 1, tablet, By Mouth, Daily, call the office at [phone] if you do not get a menstrual cycle., # 10 tablet, Refills 0, Tot. Refills 0, Maintenance, 12/21/23 15:20:00 EDT, Route to Pharmacy Electronically, [facility], Partial fill u... Start Date: 12/21/23 Stop Date: 12/31/23 Status: Ordered traZODone 50 mg oral tablet 50 mg, 1, tablet, By Mouth, Daily at bedtime, # 30 tablet, Refills 0, Tot. Refills 0, Maintenance, 07/19/23 13:53:00 EDT, Route to Pharmacy Electronically, [facility], Partial fill upon patient request if the prescription is for a schedule I... Start Date: 07/19/23 Stop Date: 08/18/23 Status: Ordered Vitamin C 250 mg oral tablet See Instructions, 1 tablet By Mouth every other day with iron Daily at 9am, # 45 tablet, 11 Refills, Maintenance, 02/17/24 9:32:00 EDT, [facility], 163, cm, 02/17/24 9:01:00 EDT, Height, 96.5, kg, 02/11/24 1:23:00 EDT, Dry Weight Start Date: 02/17/24 Status: Ordered Vitamin C 250 mg oral tablet 1 tablet, By Mouth, Daily in AM, AT 9AM., # 30 tablet, 0 Refills, Maintenance, 02/02/24 15:05:00 EDT, [facility], 163, cm, 01/24/24 9:01:00 EDT, Height, 100.2, kg, 10/17/23 16:02:00 EST, Dry Weight Start Date: 02/02/24 Status: Ordered ZyPREXA 10 mg oral tablet 10 mg, 1, tablet, By Mouth, Daily at bedtime, # 30 tablet, Refills 0, Tot. Refills 0, Maintenance, 07/19/23 13:50:00 EDT, Route to Pharmacy Electronically, [facility], Partial fill upon patient request [...] Display: History and Physical Hospital Authored Date: [id number] [place], [place] PSYCHIATRIC HISTORY ASSESS EXAM NAME: LORETTA CELESTIN : 89 MR#: [id number] PCP: ADMITTED: 12/20/15 DATE OF SERVICE: 12/20/15 HPI - Hosp Psych H P Chief Complaint Pt was sent from [facility] ER here for hallunication History of Present Illness 24 yo AA Female with known schizophrenia was seen at [facility] for hallucination. Apparently pt has been lived in correction and sent to [facility] for acute exacerbation of her underline [...] QDAY Haloperidol* (Haldol*) 5 MG PO BID [place] Carbonate SR* (Lithobid*) 300 MG PO QDAY liTHIum Carbonate SR* ([place] Carbonate SR*) 450 MG PO 4PM Discontinued Reported Medications Citalopram* (CeleXA*) 40 MG PO QDAY Benztropine* 0.5 MG PO BID buPROPion SR* 150 MG PO [id number] Trazodone* (Desyrel*) 100 MG PO HS RisperiDONE* [...] 324 MG QDAY 12/20 0900 CKD PO [place] Carbonate 300 MG QDAY 12/20 0900 AC PO Polyethylene Glycol 17 GM QDAY 12/20 0900 CKD PO Benztropine Mesylate 1 MG 0900,0 12/19 1700 AC PO Docusate Sodium 100 MG 0900,1700 12/19 1700 AC PO Haloperidol 5 MG 0900,12/19 1700 AC PO [place] Carbonate 450 MG PM 12/19 1700 AC [...] fullly ambulartory Care Level Complexity of Care [id number] Comprehensive history, comprehensive examination, medical decision making of low complexity, at least 20 minutes at the bedside, patient's floor/ unit. ESigned by: YAS GARZA MD Date:12/21/15 Time:1633 / NOT FOR REDISCLOSURE WITHOUT PATIENT'S INFORMED CONSENT Admission evaluation note * Event Display: Admit Notes Authored Date: [id number] [place], [place] PSYCHIATRIC ADMISSION NOTE NAME: LORETTA CELESTIN : 89 HOSPITAL #: [id number] MR #: [id number] CHART LOC: PCP: DICTATING: MARIA R Robin MD DATE OF ADMISSION: 12/20/15 DATE OF SERVICE: 12/21/15 CHIEF COMPLAINT: This 23-year-old woman was admitted to [facility] on 12/20/15 on a Conditional Voluntary [...] is living in a correction. Came to [place] with her grandmother in [...] year NAME: LORETTA CELESTIN : 89 HOSP#: [id number] MR#: [id number] CHART LOC: PCP: DICTATING: MARIA R Robin MD PSYCHIATRIC ADMISSION NOTE CONTINUED: unknown. TREATMENT PLAN: Resume outpatient medications, physical exam, collateral contact with community caregivers and social network, safety plan, aftercare plan and observe. 927 T: DD:[id number] TD:0745 DT:20151221 TT:0924 JOB:[id number] MICHELLE/SHANNON MARIA R Robin MD ESigned by: Date:12/22/15 Time:642 NOT FOR REDISCLOSURE WITHOUT PATIENT'S INFORMED CONSENT Patient Care team information Care Team Personnel Name: Dean Rivas RN Position: [facility] RN Member Role: Primary Care Nurse Name: Jolanta Ace RN Position: [facility] RN Supv Member Role: Primary Care Nurse Name: Fatoumata Stokes DO Position: [facility] Physician - Primary Care Member Role: PCP Address: Address: [address] [place] [address] Adult [place] [address]- Name: Awilda Grider RN Position: [facility] RN Member Role: Primary Care Nurse Name: Meagan Darden RN Position: [facility] RN Member Role: Primary Care Nurse Name: Chintan Leach DO Position: [facility] Renal MD Member Role: Lifetime Consulting Physician Address: Address: [address] [place], [place] [address] [place] [address]- Name: Chandler Ye RN Position: [facility] RN Member Role: Primary Care Nurse Name: Apurva Ji RN Position: [facility] ED RN W/OE and Tasks Member Role: Primary Care Nurse Name: Cordelia Matias RN Position: [facility] AMB Nurse Member Role: Primary Care Nurse Name: Riya Moore RN Position: [facility] RN Member Role: Primary Care Nurse Name: Radha Gutierrez Position: [facility] Outreach Member Role: Primary Care Nurse Name: Keenan Vincent RN Position: [facility] SN RN Member Role: Primary Care Nurse Name: Sasha Patricio RN Position: [facility] RN Member Role: Primary Care Nurse Name: Virgie Angel RN Position: [facility] RN Member Role: Primary Care Nurse Name: Malu Palomo Position: [facility] RN Member Role: Primary Care Nurse Name: Azeb Gusman RN Position: [facility] RN Member Role: Primary Care Nurse Name: Kim Cornell RN Position: [facility] RN Member Role: Primary Care Nurse Name: Meredith Martinez RN Position: [facility] RN Member Role: Primary Care Nurse Name: Anika Gotti RN Position: [facility] RN Member Role: Primary Care Nurse Name: Kvng Tompkins RN Position: [facility] ED RN W/OE and Tasks Member Role: Primary Care Nurse Name: Rafiq Muñoz RN Position: [facility] RN Member Role: Primary Care Nurse Name: Justina Walker RN Position: [facility] RN Member Role: Primary Care Nurse Name: Ivone Hidalgo RN Position: [facility] RN Member Role: Primary Care Nurse Name: Mazin Penn MD Position: [facility] Physician - Behavioral Health Member Role: Lifetime Consulting Physician Address: Address: [address] [place] [address]- [place] Care Team Related Persons Name: DORITA MCCOLLMU Address: [address] [place] [address] Name: STEW PECK Address: home [address] [place] [address] Name: LISA PALMA Address: [address] [place] [address]
--- OUTSIDE RECORDS SUMMARY | 2024-06-11 16:46 | XMS_ITS | Continuity of Care Document ---
Author Organization [facility] Address [address], [address] [place] [address]- Care Team Providers Care C Unix Developer Name Role Phone Fatoumata Stokes DO Primary Care Physician Encounter [facility] Date(s): 04/09/24 - 05/09/24 [facility] [address], 4th [place] [address]- Attending Physician: Jada Torres Admitting Physician: Jada [...] 0 Refills, Maintenance, 02/17/24 9:30:00 EDT, Tablet, [facility], Partial fill upon patient request if [...] Refills, Soft Stop, 04/09/24 12:02:00 EDT, Tablet, [facility], Partial fill upon patient request if [...] 0 Refills, Maintenance, 03/09/24 14:42:00 EDT, Nasal [place], [facility], Partial fill upon patient request if the prescription is for a schedule II opi... Start Date: 03/09/24 Status: Ordered lidocaine 5% topical film 1 patch, Topically, Daily, INSTR:REMOVE PATCHES AFTER 12 HOURS, # 30 each, 0 Refills, Maintenance, 04/26/24 17:29:00 EDT, [facility], 30, APPLY 1 PATCH TOPICALLY DAILY,INSTR:REMOVE PATCHES AFTER 12 HOURS, 163, cm, 04/25/24 14:35:00 EDT, [place]... Start Date: 04/26/24 Status: Ordered lithium 450 mg oral tablet, [...] Replace Required Details, Route to Pharmacy Electronically, [facility], 163, cm, 04/09/24 11:20:00 EDT, Height, [...] Daily, # 90 capsule, 0 Refills, Maintenance, 04/25/24 10:05:00 EDT, ECCapsule, [facility], Partial fill upon patient request if the prescription is for a schedule II opioid drug., 163, cm, 04/09/24 11:20:00 EDT,... Start Date: 04/25/24 Status: Ordered perphenazine 8 mg oral tablet [...] Maintenance,07/19/23 13:53:00 EDT, Route to Pharmacy Electronically, [facility], Partial fill upon patient request if the prescription is for a schedule... Start Date: 07/19/23 Stop Date: 08/18/23 Status: Ordered Provera 10 mg oral tablet 10 mg, 1, tablet, By Mouth, Daily, call the office at [phone] if you do not get a menstrual cycle., # 10 tablet, Refills 0, Tot. Refills 0, Maintenance, 12/21/23 15:20:00 EDT, Route to Pharmacy Electronically, [facility], Partial fill u... Start Date: 12/21/23 Stop Date: 12/31/23 Status: Ordered traZODone 50 mg oral tablet 50 mg, 1, tablet, By Mouth, Daily at bedtime, # 30 tablet, Refills 0, Tot. Refills 0, Maintenance, 07/19/23 13:53:00 EDT, Route to Pharmacy Electronically, [facility], Partial fill upon patient request if the prescription is for a schedule I... Start Date: 07/19/23 Stop Date: 08/18/23 Status: Ordered Vitamin C 250 mg oral tablet See Instructions, 1 tablet By Mouth every other day with iron Daily at 9am, # 45 tablet, 11 Refills, Maintenance, 02/17/24 9:32:00 EDT, [facility], 163, cm, 02/17/24 9:01:00 EDT, Height, 96.5, kg, 02/11/24 1:23:00 EDT, Dry Weight Start Date: 02/17/24 Status: Ordered Vitamin C 250 mg oral tablet 1 tablet, By Mouth, Daily in AM, AT 9AM., # 30 tablet, 0 Refills, Maintenance, 02/02/24 15:05:00 EDT, [facility], 163, cm, 01/24/24 9:01:00 EDT, Height, [...] Display: History and Physical Hospital Authored Date: [id number] [place], [place] PSYCHIATRIC HISTORY ASSESS EXAM NAME: LORETTA CELESTIN : 89 MR#: [id number] PCP: ADMITTED: 12/20/15 DATE OF SERVICE: 12/20/15 HPI - Hosp Psych H P Chief Complaint Pt was sent from [facility] ER here for hallunication History of Present Illness 24 yo AA Female with known schizophrenia was seen at [facility] ER for hallucination. Apparently pt has been lived in snf and sent to [facility] for acute exacerbation of her [...] QDAY Haloperidol* (Haldol*) 5 MG PO BID [place] Carbonate SR* (Lithobid*) 300 MG PO QDAY liTHIum Carbonate SR* ([place] Carbonate SR*) 450 MG PO 4PM Discontinued Reported Medications Citalopram* (CeleXA*) 40 MG PO QDAY Benztropine* 0.5 MG PO BID buPROPion SR* 150 MG PO [id number] Trazodone* (Desyrel*) 100 MG PO HS RisperiDONE* [...] 324 MG QDAY 12/20 0900 CKD PO [place] Carbonate 300 MG QDAY 12/20 0900 AC PO Polyethylene Glycol 17 GM QDAY 12/20 0900 CKD PO Benztropine Mesylate 1 MG 0900,1700 12/19 1700 AC PO Docusate Sodium 100 MG 0900,1700 12/19 1700 AC PO Haloperidol 5 MG 0900,17012/19 1700 AC PO [place] Carbonate 450 MG PM 12/19 1700 AC [...] fullly ambulartory Care Level Complexity of Care [id number] Comprehensive history, comprehensive examination, medical decision making of low complexity, at least 20 minutes at the bedside, patient's floor/ unit. ESigned by: YAS GARZA MD Date:12/21/15 Time:1633 / NOT FOR REDISCLOSURE WITHOUT PATIENT'S INFORMED CONSENT Admission evaluation note * Event Display: Admit Notes Authored Date: [id number] [place], [place] PSYCHIATRIC ADMISSION NOTE NAME: LORETTA CELESTIN : 89 HOSPITAL #: [id number] MR #: [id number] CHART LOC: PCP: DICTATING: MARIA R Robin MD DATE OF ADMISSION: 12/20/15 DATE OF SERVICE: 12/21/15 CHIEF COMPLAINT: This 23-year-old woman was admitted to [facility] [...] is living in a snf. Came to [place] with her grandmother in 2013, was very [...] year NAME: LORETTA CELESTIN : 89 HOSP#: [id number] MR#: [id number] CHART LOC: PCP: DICTATING: MARIA R Robin MD PSYCHIATRIC ADMISSION NOTE CONTINUED: unknown. TREATMENT PLAN: Resume outpatient medications, physical exam, collateral contact with community caregivers and social network, safety plan, aftercare plan and observe. 927 T: DD:20151221 TD:0745 DT:20151221 TT:0924 JOB:[id number] TORIE MARIA R Robin MD ESigned by: Date:12/22/15 Time:0643 NOT FOR REDISCLOSURE WITHOUT PATIENT'S INFORMED CONSENT Patient Care team information Care Team Personnel Name: Dean Rivas RN Position: [facility] RN Member Role: Primary Care Nurse Name: Jolanta Ace RN Position: [facility] RN Supv Member Role: Primary Care Nurse Name: Fatoumata Stokes DO Position: [facility] Physician - Primary Care Member Role: PCP Address: Address: [address] [place] [address] Adult & [place] [address]- [place] Name: Awilda Grider RN Position: [facility] RN Member Role: Primary Care Nurse Name: Meagan Darden RN Position: [facility] RN Member Role: Primary Care Nurse Name: Chintan Leach DO Position: [facility] Renal MD Member Role: Lifetime Consulting Physician Address: Address: [address] [place], [place] [address] [place] [address]- Name: Chandler Ye RN Position: [facility] RN Member Role: Primary Care Nurse Name: Apurva Ji RN Position: [facility] ED RN W/OE and Tasks Member Role: Primary Care Nurse Name: Cordelia Matias RN Position: [facility] AMB Nurse Member Role: Primary Care Nurse Name: Riya Moore RN Position: [facility] RN Member Role: Primary Care Nurse Name: Radha Gutierrez Position: [facility] Outreach Member Role: Primary Care Nurse Name: Keenan Vincent RN Position: [facility] SN RN Member Role: Primary Care Nurse Name: Sasha Patricio RN Position: [facility] RN Member Role: Primary Care Nurse Name: Virgie Angel RN Position: [facility] RN Member Role: Primary Care Nurse Name: Malu Palomo Position: [facility] RN Member Role: Primary Care Nurse Name: Azeb Gusman RN Position: [facility] RN Member Role: Primary Care Nurse Name: Asher Diaz RN Position: [facility] RN Member Role: Primary Care Nurse Name: Kim Cornell RN Position: [facility] RN Member Role: Primary Care Nurse Name: Meredith Martinez RN Position: [facility] RN Member Role: Primary Care Nurse Name: Anika Gotti RN Position: [facility] RN Member Role: Primary Care Nurse Name: Kvng Tompkins RN Position: [facility] ED RN W/OE and Tasks Member Role: Primary Care Nurse Name: Rafiq Muñoz RN Position: [facility] RN Member Role: Primary Care Nurse Name: Justina Walker RN Position: [facility] RN Member Role: Primary Care Nurse Name: Ivone Hidalgo RN Position: [facility] RN Member Role: Primary Care Nurse Name: Mazin Penn MD Position: [facility] Physician - Behavioral Health Member Role: Lifetime Consulting Physician Address: Address: [address] [place] [address]- [place] Care Team Related Persons Name: DORITA MCCOLLUM Address: [address] [place] [address] Name: STEW PECK Address: [address] [place] [address] Name: LISA PALMA Address: [address] [place] [address]
--- OUTSIDE RECORDS SUMMARY | 2024-06-11 16:46 | XMS_ITS | Continuity of Care Document ---
Author Organization [facility] ter Address [address] [place] [address]- Care Team Providers Care Park Aide Name Role Phone Fatoumata Stokes DO Primary Care Physician [place] [facility] [place](s): 12/26/23 - 12/27/[address] [address]- Encounter Diagnosis Agitation(Final) - 12/26/23 Discharge Disposition: A-D/C Home Attending Physician: Sheila [...] Refills, Soft Stop, 12/21/23 15:20:00 EDT, Tablet, [facility], Partial fill upon patient request if [...] 0 Refills, Maintenance, 07/05/23 0:27:00 EDT, Nasal [place], Partial fill upon patient request if the [...] 0 Refills, Maintenance, 12/23/23 17:55:00 EDT, ECCapsule, [facility], Partial fill upon patient request if [...] Maintenance,07/19/23 13:53:00 EDT, Route to Pharmacy Electronically, [facility], Partial fill upon patient request if the prescription is for a schedule... Start Date: 07/19/23 Stop Date: 08/18/23 Status: Ordered Provera 10 mg oral tablet 10 mg, 1, tablet, By Mouth, Daily, call the office at [phone] if you do not get a menstrual cycle., # 10 tablet, Refills 0, Tot. Refills 0, Maintenance, 12/21/23 15:20:00 EDT, Route to Pharmacy Electronically, [facility], Partial fill u... Start Date: 12/21/23 Stop Date: 12/31/23 Status: Ordered traZODone 50 mg oral tablet 50 mg, 1, tablet, By Mouth, Daily at bedtime, # 30 tablet, Refills 0, Tot. Refills 0, Maintenance, 07/19/23 13:53:00 EDT, Route to Pharmacy Electronically, [facility], Partial fill upon patient request if [...] 07/19/23 13:50:00 EDT, Route to Pharmacy Electronically, [facility], Partial fill upon patient request if [...] 2 Oxygen Saturation [94-100 %] 98 % (12/27/23 12:00 AM) 97 % (12/26/23 9:25 PM) Pulse Rate [55-90 bpm] 88 bpm (12/27/23 12:00 AM) 90 bpm (12/26/23 9:25 PM) Blood Pressure [90-138/55-84 mm Hg] 129/ 73mm Hg (12/27/23 12:00 AM) 126/86mm Hg (12/26/23 9:25 PM) Respiratory Rate [16-30 br/min] 18 br/mi n (12/27/23 12:00 AM) 18 br/min (12/26/23 9:25 PM) Temperature [96.8-100.4 DegF] 98.1 DegF (12/27/23 12:00 AM) 98.3 DegF (12/26/23 9:25 PM) Temperature Route Oral (12/27/23 12:00 AM) Oral (12/26/23 9:25 PM) Social History Social History Type Response Smoking Status 5-9 cigarettes (betw een 1/4 to 1/2 pack)/day in last 30 days; Interested in cessation: No; Patient wants NRT during admission Yes; Other: will accept nicotine gum; entered on: 07/14/23 Sex History and physical note * Event Display: History and Physical Hospital Authored Date: [id number] [place], [place] PSYCHIATRIC HISTORY ASSESS EXAM NAME: LORETTA CELESTIN : 89 MR#: [id number] PCP: ADMITTED: 12/20/15 DATE OF SERVICE: 12/20/15 HPI - Hosp Psych H P Chief Complaint Pt was sent from [facility] here for hallunication History of Present Illness 24 yo AA Female with known schizophrenia was seen at [facility] for hallucination. Apparently pt has been lived in intermediate and sent to [facility] for acute exacerbation of her underline schizophrenia. [...] QDAY Haloperidol* (Haldol*) 5 MG PO BID [place] Carbonate SR* (Lithobid*) 300 MG PO QDAY liTHIum Carbonate SR* ([place] Carbonate SR*) 450 MG PO 4PM Discontinued Reported Medications Citalopram* (CeleXA*) 40 MG PO QDAY Benztropine* 0.5 MG PO BID buPROPion SR* 150 MG PO [id number] Trazodone* (Desyrel*) 100 MG PO HS RisperiDONE* [...] 324 MG QDAY 12/20 899 CKD PO [place] Carbonate 300 MG QDAY 12/20 09 AC PO Polyethylene Glycol 17 GM QDAY 12/20 899 CKD PO Benztropine Mesylate 1 MG 0900,0 12/19 1700 AC PO Docusate Sodium 100 MG 0900,0 12/19 1700 AC PO Haloperidol 5 MG 0900,12/19 1700 AC PO [place] Carbonate 450 MG PM 12/19 1700 AC [...] fullly ambulartory Care Level Complexity of Care Q68025 Comprehensive history, comprehensive examination, medical decision making of low complexity, at least 20 minutes at the bedside, patient's floor/ unit. ESigned by: YAS GARZA MD Date:12/21/15 Time:1633 / NOT FOR REDISCLOSURE WITHOUT PATIENT'S INFORMED CONSENT Admission evaluation note * Event Display: Admit Notes Authored Date: [id number] [place], [place] PSYCHIATRIC ADMISSION NOTE NAME: LORETTA CELESTIN : 89 HOSPITAL #: [id number] MR #: [id number] CHART LOC: PCP: DICTATING: MARIA R Robin MD DATE OF ADMISSION: 12/20/15 DATE OF SERVICE: 12/21/15 CHIEF COMPLAINT: This 23-year-old woman was admitted to [facility] on 12/20/15 on a Conditional Voluntary [...] is living in a intermediate. Came to [place] with her grandmother in 2013, was [...] year NAME: LORETTA CELESTIN : 89 HOSP#: [id number] MR#: [id number] CHART LOC: PCP: DICTATING: MARIA R Robin MD PSYCHIATRIC ADMISSION NOTE CONTINUED: unknown. TREATMENT PLAN: Resume outpatient medications, physical exam, collateral contact with community caregivers and social network, safety plan, aftercare plan and observe. 927 T:sn DD:[id number] TD:0745 DT:20151221 TT:0924 JOB:[id number] MICHELLE/SHANNON MARIA R Robin MD ESigned by: Date:12/22/15 Time:0643 NOT FOR REDISCLOSURE WITHOUT PATIENT'S INFORMED CONSENT Note * Yariel Chatterjee DO W: PERFORM Event Display: Patient Education Leaflets Authored Date: [id number] Anxiety??Reaction ?? [id number] Anxiety??Reaction Anxiety is the feeling we all get when we think something bad might happen. It is a normal responseto stress. It most often causes only a mild reaction. But it can interfere with daily life when anxiety is more severe. In some cases, you may not know what you???re anxious about. Anxiety seems to have both mental and physical triggers. You may have stress from home and family. Or work and social relationships. Anxiety tends to run in families. This may mean it???s linked to genes. During an anxiety reaction, you may feel: ??? Helpless ??? Nervous ??? Depressed ??? Grouchy Your body may show signs of anxiety in many ways. You may have: ??? Dry mouth ??? Shakiness ??? Dizziness ??? Weakness ??? Trouble breathing ??? Fast breathing ???Chest pressure ??? Sweating ??? Headache ??? Nausea ??? Diarrhea ??? Tiredness ??? Inability to sleep ??? Sexual problems Home care Try to find those things that set off anxiety in your life. They may not be obvious. They may include: ??? Daily hassles of life. This can include traffic jams, missed appointments, or car troubles. ???Major life changes. This means both good changes, such as a new baby or job promotion. This can also mean tough life changes, such as loss of a job or loss of a loved one. ??? Overload. This means feeling that you have too many responsibilities. And that you can't take care of all of them. ??? Feeling helpless. You may feel you don???t have any control or choices. You may feel that your problems can't be solved. Notice how your body reacts to stress. This will help you take action before the stress sets off anxiety. When you can, make changes to reduce the sources of your stress. But stress in life often can't be prevented. It is important to learn how to manage stress to reduce anxiety. There are many proven methods that will reduce your anxiety. These include: ??? Exercise ??? Good nutrition ??? Getting enough sleep ??? Relaxation methods ??? Breathing exercises ??? Visualization ??? Biofeedback ??? Meditation ??? Counseling ??? Medicine For more information about this, talk with your healthcare provider. Or check online or at your local library or bookstore. You'll find many books and audiobooks on this subject. ?? Follow-up care If you feel your anxiety is not getting better with self-help, call your healthcare provider. Or make an appointment with a counselor. You may need short-term counseling or medicine to help you manage anxiety. ?? Call 911 Call 911 if any of the following occur: ??? Trouble breathing ??? Confusion ??? Drowsiness or trouble waking up ??? Fainting ??? Rapid heart rate ??? Seizure ??? New chest pain that becomes more severe, lasts longer, or spreads into your shoulder, arm, neck, jaw, or back Call or text 988 if you have thoughts of harming yourself or others. You will be connected to trained crisis counselors at the National Suicide Prevention Lifeline. An online chat option is also available at www.suicidepreventionlifeline.org. You can also call Lifeline at 791-182-RKJT (200-099-7003). Lifeline is free and available 18/04. ?? When to get medical advice Call your healthcare provider right away if any of the following occur: ??? Symptoms that don't improve or get worse, such as feelings of hopelessness or overwhelming sadness ??? Severe headache not eased by rest and mild pain medicine The National Suicide Prevention Lifeline is available at 662-692-EPTB (629-092-3353). The Lifeline is available 18/04 and provides free and confidential support. The [employer] also has an online chat at www.suicideStemSave.org. ?? Last Reviewed Date: 2022 ?? 3345-3227 The [employer]. All rights reserved. This information is not intended as a substitute for professional medical care. Always follow your healthcare professional's instructions. ?? Patient Care team information Care Team Personnel Name: Dean Rivas RN Position: S RN Member Role: Primary Care Nurse Name: Jolanta Ace RN Position: S RN Supv Member Role: Primary Care Nurse Name: Fatoumata Stokes DO Position: [facility] Physician - Primary Care Member Role: PCP Address: Address: [address] [place] [address] Adult & [place] [address]- [place] Name: Awilda Grider RN Position: S RN Member Role: Primary Care Nurse Name: Meagan Darden RN Position: S RN Member Role: Primary Care Nurse Name: Chintan Leach DO Position: [facility] Renal MD Member Role: Lifetime Consulting Physician Address: Address: [address] [place] [address] [address] [facility] [place] [address]- Name: Chandler Ye RN Position: S RN Member Role: Primary Care Nurse Name: Apurva Ji RN Position: [facility] ED RN W/OE and Tasks Member Role: Primary Care Nurse Name: Cordelia Matias RN Position: [facility] AMB Nurse Member Role: Primary Care Nurse Name: Riya Moore RN Position: [facility] RN Member Role: Primary Care Nurse Name: Radha Gutierrez Position: [facility] Outreach Member Role: Primary Care Nurse Name: Keenan Vincent RN Position: [facility] SN RN Member Role: Primary Care Nurse Name: Sasha Patricio RN Position: [facility] RN Member Role: Primary Care Nurse Name: Virgie Angel Position: [facility] RN Member Role: Primary Care Nurse Name: Malu Palomo Position: [facility] RN Member Role: Primary Care Nurse Name: Azeb Gusman RN Position: [facility] RN Member Role: Primary Care Nurse Name: Asher Diaz RN Position: [facility] RN Member Role: Primary Care Nurse Name: Kim Cornell RN Position: [facility] RN Member Role: Primary Care Nurse Name: Meredith Martinez RN Position: [facility] RN Member Role: Primary Care Nurse Name: Anika Gotti RN Position: [facility] RN Member Role: Primary Care Nurse Name: Kvng Tompkins RN Position: [facility] ED RN W/OE and Tasks Member Role: Primary Care Nurse Name: Rafiq Muñoz RN Position: [facility] RN Member Role: Primary Care Nurse Name: Justina Walker RN Position: [facility] RN Member Role: Primary Care Nurse Name: Ivone Hidalgo RN Position: [facility] RN Member Role: Primary Care Nurse Name: Mazin Penn MD Position: [facility] Physician - Behavioral Health Member Role: Lifetime Consulting Physician Address: Address: [address] [place] [address]- [place] Care Team Related Persons Name: CHUN DORITA Address: home [address] [place] [address] Name: STEW PECK Address: home [address] [place] [address] Name: LISA PALMA Address: home [address] [place] [address]
--- OUTSIDE RECORDS SUMMARY | 2024-06-11 16:46 | XMS_ITS | Continuity of Care Document ---
Author Organization [facility] Address [address] [place] [address]- Care Team Providers Care Stack Yield Engineer Name Role Phone Fatoumata Stokes DO Primary Care Physician Encounter [facility] Date(s): 08/30/23 - 09/29/23 [facility] [address] [place], [place] [address] Allergies, Adverse Reactions, Alerts Substance Reaction Severity [...] 0 Refills, Maintenance, 07/05/23 0:27:00 EDT, Nasal [place], Partial fill upon patient request if the [...] 0 Refills, Maintenance, 07/19/23 13:49:00 EDT, Capsule, [facility], Partial fill upon patient request if [...] Maintenance,07/19/23 13:53:00 EDT, Route to Pharmacy Electronically, [facility], Partial fill upon patient request if the prescription is for a schedule... Start Date: 07/19/23 Stop Date: 08/18/23 Status: Ordered traZODone 50 mg oral tablet 50 mg, 1, tablet, By Mouth, Daily at bedtime, # 30 tablet, Refills 0, Tot. Refills 0, Maintenance, 07/19/23 13:53:00 EDT, Route to Pharmacy Electronically, [facility], Partial fill upon patient request if [...] 07/19/23 13:50:00 EDT, Route to Pharmacy Electronically, [facility], Partial fill upon patient request if [...] Display: History and Physical Hospital Authored Date: [id number] [place], [place] PSYCHIATRIC HISTORY ASSESS EXAM NAME: LORETTA CELESTIN : 89 MR#: [id number] PCP: ADMITTED: 12/20/15 DATE OF SERVICE: 12/20/15 HPI - Hosp Psych H P Chief Complaint Pt was sent from [facility] here for hallunication History of Present Illness 24 yo AA Female with known schizophrenia was [place] [facility] [place]. Apparently pt has been lived in [facility] and sent [place] [facility] for acute exacerbation of her underline schizophrenia. [...] QDAY Haloperidol* (Haldol*) 5 MG PO BID [place] Carbonate SR* (Lithobid*) 300 MG PO QDAY liTHIum Carbonate SR* ([place] Carbonate SR*) 450 MG PO 4PM Discontinued Reported Medications Citalopram* (CeleXA*) 40 MG PO QDAY Benztropine* 0.5 MG PO BID buPROPion SR* 150 MG PO [id number] Trazodone* (Desyrel*) 100 MG PO HS RisperiDONE* [...] 324 MG QDAY 12/20 09 CKD PO [place] Carbonate 300 MG QDAY 12/20 09 AC PO Polyethylene Glycol 17 GM QDAY 12/20 09 CKD PO Benztropine Mesylate 1 MG 0900,1700 12/19 1700 AC PO Docusate Sodium 100 MG 0900,1700 12/19 1700 AC PO Haloperidol 5 MG 0900,12/19 1700 AC PO [place] Carbonate 450 MG PM 12/19 1700 [...] fullly ambulartory Care Level Complexity of Care Q31896 Comprehensive history, comprehensive examination, medical decision making of low complexity, at least 20 minutes at the bedside, patient's floor/ unit. ESigned by: YAS GARZA MD Date:12/21/15 Time:1633 / NOT FOR REDISCLOSURE WITHOUT PATIENT'S INFORMED CONSENT Admission evaluation note * Event Display: Admit Notes Authored Date: [id number] [place], [place] PSYCHIATRIC ADMISSION NOTE NAME: LORETTA CELESTIN : 89 HOSPITAL #: [id number] MR #: [id number] CHART LOC: PCP: DICTATING: MARIA R Robin MD DATE OF ADMISSION: 12/20/15 DATE OF SERVICE: 12/21/15 CHIEF COMPLAINT: This 23-year-old woman was admitted to [facility] on 12/20/15 on a Conditional Voluntary [...] year NAME: LORETTA CELESTIN : 89 HOSP#: [id number] MR#: [id number] CHART LOC: PCP: DICTATING: MARIA R Robin MD PSYCHIATRIC ADMISSION NOTE CONTINUED: unknown. TREATMENT PLAN: Resume outpatient medications, physical exam, collateral contact with community caregivers and social network, safety plan, aftercare plan and observe. 927 T:sn DD:20151221 TD:0745 DT:20151221 TT:0924 JOB:[id number] MICHELLE/SHANNON MARIA R Robin MD ESigned by: Date:12/22/15 Time:642 NOT FOR REDISCLOSURE WITHOUT PATIENT'S INFORMED CONSENT Patient Care team information Care Team Personnel Name: Dean Rivas RN Position: S RN Member Role: Primary Care Nurse Name: Jolanta Ace RN Position: [facility] RN Supv Member Role: Primary Care Nurse Name: Fatoumata Stokes DO Position: [facility] Physician - Primary Care Member Role: PCP Address: Address: [address] [place] [address] Adult [place] [address]- Name: Britt Polanco RN Position: S RN Member Role: Primary Care Nurse Name: Awilda Grider RN Position: S RN Member Role: Primary Care Nurse Name: Meagan Darden RN Position: S RN Member Role: Primary Care Nurse Name: Chintan Leach DO Position: [facility] Renal MD Member Role: Lifetime Consulting Physician Address: Address: [address] [place], [place] [address] [place] [address]- Name: Chandler Ye RN Position: [facility] RN Member Role: Primary Care Nurse Name: Apurva Ji RN Position: [facility] ED RN W/OE and Tasks Member Role: Primary Care Nurse Name: Cordelia Matias RN Position: [facility] AMB Nurse Member Role: Primary Care Nurse Name: Riya Moore RN Position: [facility] RN Member Role: Primary Care Nurse Name: Radha Gutierrez Position: [facility] Outreach Member Role: Primary Care Nurse Name: Keenan Vincent RN Position: [facility] SN RN Member Role: Primary Care Nurse Name: Sasha Patricio RN Position: [facility] RN Member Role: Primary Care Nurse Name: Virgie Angel Position: [facility] RN Member Role: Primary Care Nurse Name: Emma Kaminski RN Position: [facility] RN Member Role: Primary Care Nurse Name: Malu Palomo Position: [facility] RN Member Role: Primary Care Nurse Name: Azeb Gusman RN Position: [facility] RN Member Role: Primary Care Nurse Name: Asher Diaz RN Position: [facility] RN Member Role: Primary Care Nurse Name: Kim Cornell RN Position: [facility] RN Member Role: Primary Care Nurse Name: Meredith Martinez RN Position: [facility] RN Member Role: Primary Care Nurse Name: Anika Gotti RN Position: [facility] RN Member Role: Primary Care Nurse Name: Kvng Tompkins RN Position: [facility] ED RN W/OE and Tasks Member Role: Primary Care Nurse Name: Rafiq Muñoz RN Position: [facility] RN Member Role: Primary Care Nurse Name: Justina Walker RN Position: [facility] RN Member Role: Primary Care Nurse Name: Ivone Hidalgo RN Position: [facility] RN Member Role: Primary Care Nurse Name: Mazin Penn MD Position: [facility] Physician - Behavioral Health Member Role: Lifetime Consulting Physician Address: Address: [address] [place] [address] [place] Care Team Related Persons Name: DORITA MCCOLLUM Address: [address] [place] [address] Name: ASIADEEDEESTEW Address: home [address] [facility], [address] Name: LISA PALMA Address: home [address] [place] [address]
--- OUTSIDE RECORDS SUMMARY | 2024-06-11 16:46 | XMS_ITS | Continuity of Care Document ---
Author Organization [facility] Address [address] [place] [address]- Care Team Providers Care Dynamics Ax Technical Architect Name Role Phone Fatoumata Stokes DO Primary Care Physician [facility] Date(s): 04/24/24 - 05/24/24 [facility] [address] [place], [place] [address] Allergies, Adverse Reactions, Alerts Substance [...] 0 Refills, Maintenance, 02/17/24 9:30:00 EDT, Tablet, [facility], Partial fill upon patient request if [...] Refills, Soft Stop, 04/09/24 12:02:00 EDT, Tablet, [facility], Partial fill upon patient request if [...] 0 Refills, Maintenance, 03/09/24 14:42:00 EDT, Nasal [place], [facility], Partial fill upon patient request if the prescription is for a schedule II opi... Start Date: 03/09/24 Status: Ordered lidocaine 5% topical film 1 patch, Topically, Daily, INSTR:REMOVE PATCHES AFTER 12 HOURS, # 30 each, 0 Refills, Maintenance, 04/26/24 17:29:00 EDT, [facility], 30, APPLY 1 PATCH TOPICALLY DAILY,INSTR:REMOVE [...] Replace Required Details, Route to Pharmacy Electronically, [facility], 163, cm, 04/09/24 11:20:00 EDT, Height, [...] 0 Refills, Maintenance, 04/25/24 10:05:00 EDT, ECCapsule, [facility], Partial fill upon patient request if [...] Maintenance,07/19/23 13:53:00 EDT, Route to Pharmacy Electronically, [facility], Partial fill upon patient request if the prescription is for a schedule... Start Date: 07/19/23 Stop Date: 08/18/23 Status: Ordered Provera 10 mg oral tablet 10 mg, 1, tablet, By Mouth, Daily, call the office at [phone] if you do not get a menstrual cycle., # 10 tablet, Refills 0, Tot. Refills 0, Maintenance, 12/21/23 15:20:00 EDT, Route to Pharmacy Electronically, [facility], Partial fill u... Start Date: 12/21/23 Stop Date: 12/31/23 Status: Ordered traZODone 50 mg oral tablet 50 mg, 1, tablet, By Mouth, Daily at bedtime, # 30 tablet, Refills 0, Tot. Refills 0, Maintenance, 07/19/23 13:53:00 EDT, Route to Pharmacy Electronically, [facility], Partial fill upon patient request if the prescription is for a schedule I... Start Date: 07/19/23 Stop Date: 08/18/23 Status: Ordered Vitamin C 250 mg oral tablet See Instructions, 1 tablet By Mouth every other day with iron Daily at 9am, # 45 tablet, 11 Refills, Maintenance, 02/17/24 9:32:00 EDT, [facility], 163, cm, 02/17/24 9:01:00 EDT, Height, 96.5, kg, 02/11/24 1:23:00 EDT, Dry Weight Start Date: 02/17/24 Status: Ordered Vitamin C 250 mg oral tablet 1 tablet, By Mouth, Daily in AM, AT 9AM., # 30 tablet, 0 Refills, Maintenance, 02/02/24 15:05:00 EDT, [facility], 163, cm, 01/24/24 9:01:00 EDT, Height, 100.2, kg, 10/17/23 16:02:00 EST, Dry Weight Start Date: 02/02/24 Status: Ordered ZyPREXA 10 mg oral tablet 10 mg, 1, tablet, By Mouth, Daily at bedtime, # 30 tablet, Refills 0, Tot. Refills 0, Maintenance, 07/19/23 13:50:00 EDT, Route to Pharmacy Electronically, [facility], Partial fill upon patient request if [...] Display: History and Physical Hospital Authored Date: [id number] [place], [place] PSYCHIATRIC HISTORY ASSESS EXAM NAME: LORETTA CELESTIN : 89 MR#: [id number] PCP: ADMITTED: 12/20/15 DATE OF SERVICE: 12/20/15 HPI - Hosp Psych H P Chief Complaint Pt was sent from [facility] here for hallunication History of Present Illness 24 yo AA Female with known schizophrenia was seen at [facility] for hallucination. Apparently pt has been lived in [facility] and sent to [facility] [...] QDAY Haloperidol* (Haldol*) 5 MG PO BID Balmorhea Carbonate SR* (Lithobid*) 300 MG PO QDAY liTHIum Carbonate SR* (Balmorhea Carbonate SR*) 450 MG PO 4PM Discontinued Reported Medications Citalopram* (CeleXA*) 40 MG PO QDAY Benztropine* 0.5 MG PO BID buPROPion SR* 150 MG PO [id number] Trazodone* (Desyrel*) 100 MG PO HS RisperiDONE* [...] 324 MG QDAY 12/20 0900 CKD PO Balmorhea Carbonate 300 MG QDAY 12/20 0900 AC PO Polyethylene Glycol 17 GM QDAY 12/20 0900 CKD PO Benztropine Mesylate 1 MG 0900,1700 12/19 1700 AC PO Docusate Sodium 100 MG 0900,1700 12/19 1700 AC PO Haloperidol 5 MG 0900,1700 12/19 1700 AC PO Balmorhea Carbonate 450 MG PM 12/19 1700 AC [...] fullly ambulartory Care Level Complexity of Care [id number] Comprehensive history, comprehensive examination, medical decision making of low complexity, at least 20 minutes at the bedside, patient's floor/ unit. ESigned by: YAS GARZA MD Date:12/21/15 Time:1633 / NOT FOR REDISCLOSURE WITHOUT PATIENT'S INFORMED CONSENT Admission evaluation note * Event Display: Admit Notes Authored Date: [id number] [place], [place] PSYCHIATRIC ADMISSION NOTE NAME: LORETTA CELESTIN : 89 HOSPITAL #: [id number] MR #: [id number] CHART LOC: PCP: DICTATING: MARIA R Robin MD DATE OF ADMISSION: 12/20/15 DATE OF SERVICE: 12/21/15 CHIEF COMPLAINT: This 23-year-old woman was admitted to [facility] on 12/20/15 on a Conditional Voluntary [...] year NAME: LORETTA CELESTIN : [birth year] HOSP#: [id number] MR#: [id number] CHART LOC: PCP: DICTATING: MARIA R Robin MD PSYCHIATRIC ADMISSION NOTE CONTINUED: unknown. TREATMENT PLAN: Resume outpatient medications, physical exam, collateral contact with community caregivers and social network, safety plan, aftercare plan and observe. 927 T:sn DD:[id number] TD:0745 DT:20151221 TT:0924 JOB:[id number] MICHELLE/SHANNON MARIA R Robin MD ESigned by: Date:12/22/15 Time:642 NOT FOR REDISCLOSURE WITHOUT PATIENT'S INFORMED CONSENT Patient Care team information Care Team Personnel Name: Dean Rivas RN Position: [facility] RN Member Role: Primary Care Nurse Name: Jolanta Ace RN Position: [facility] RN Supv Member Role: Primary Care Nurse Name: Fatoumata Stokes DO Position: [facility] Physician - Primary Care Member Role: PCP Address: Address: [address] [place] [address]- [place] Name: Awilda Grider RN Position: [facility] RN Member Role: Primary Care Nurse Name: Meagan Darden RN Position: [facility] RN Member Role: Primary Care Nurse Name: Chintan Leach DO Position: [facility] Renal MD Member Role: Lifetime Consulting Physician Address: Address: [address] [place] [address] [address] [facility] [place] [address]- Name: Chandler Ye RN Position: [facility] RN Member Role: Primary Care Nurse Name: Apurva Ji RN Position: [facility] ED RN W/OE and Tasks Member Role: Primary Care Nurse Name: Cordelia Matias RN Position: [facility] AMB Nurse Member Role: Primary Care Nurse Name: Riya Moore RN Position: [facility] RN Member Role: Primary Care Nurse Name: Radha Gutierrez Position: [facility] Outreach Member Role: Primary Care Nurse Name: Keenan Vincent RN Position: [facility] SN RN Member Role: Primary Care Nurse Name: Sasha Patricio RN Position: [facility] RN Member Role: Primary Care Nurse Name: Virgie Angel RN Position: [facility] RN Member Role: Primary Care Nurse Name: Malu Palomo Position: [facility] RN Member Role: Primary Care Nurse Name: Azeb Gusman RN Position: [facility] RN Member Role: Primary Care Nurse Name: Asher Diaz RN Position: [facility] RN Member Role: Primary Care Nurse Name: Kim Cornell RN Position: [facility] RN Member Role: Primary Care Nurse Name: Meredith Martinez RN Position: [facility] RN Member Role: Primary Care Nurse Name: Anika Gotti RN Position: [facility] RN Member Role: Primary Care Nurse Name: Kvng Tompkins RN Position: [facility] ED RN W/OE and Tasks Member Role: Primary Care Nurse Name: Rafiq Muñoz RN Position: [facility] RN Member Role: Primary Care Nurse Name: Justina Walker RN Position: [facility] RN Member Role: Primary Care Nurse Name: Ivone Hidalgo RN Position: [facility] RN Member Role: Primary Care Nurse Name: Mazin Penn MD Position: [facility] Physician - Behavioral Health Member Role: Lifetime Consulting Physician Address: Address: [address] [place] [address]- [place] Care Team Related Persons Name: DORITA MCCOLLUM Address: [address] [place] [address] Name: STEW PECK Address: home [address] [place] [address] Name: LISA PALMA Address: home [address] [place] [address]
--- OUTSIDE RECORDS SUMMARY | 2024-06-11 16:46 | XMS_ITS | Continuity of Care Document ---
Author Organization [facility] Address [address] [place] [address]- Care Team Providers Care Plastering Contractor Name Role Phone Fatoumata Stokes DO Primary Care Physician [facility] 08[facility]23 - 09/29/23 [facility] [address] [place], [place] [address] Allergies, Adverse Reactions, Alerts Substance Reaction [...] 0 Refills, Maintenance, 07/05/23 0:27:00 EDT, Nasal [place], Partial fill upon patient request if the [...] 0 Refills, Maintenance, 07/19/23 13:49:00 EDT, Capsule, [facility], Partial fill upon patient request if [...] Maintenance,07/19/23 13:53:00 EDT, Route to Pharmacy Electronically, [facility], Partial fill upon patient request if the prescription is for a schedule... Start Date: 07/19/23 Stop Date: 08/18/23 Status: Ordered traZODone 50 mg oral tablet 50 mg, 1, tablet, By Mouth, Daily at bedtime, # 30 tablet, Refills 0, Tot. Refills 0, Maintenance, 07/19/23 13:53:00 EDT, Route to Pharmacy Electronically, [facility], Partial fill upon patient request if [...] 07/19/23 13:50:00 EDT, Route to Pharmacy Electronically, [facility], Partial fill upon patient request if [...] Display: History and Physical Hospital Authored Date: [id number] [place], [place] PSYCHIATRIC HISTORY ASSESS EXAM NAME: LORETTA CELESTIN : [birth year] MR#: [id number] PCP: ADMITTED: 12/20/15 DATE OF SERVICE: 12/20/15 HPI - Hosp Psych H P Chief Complaint Pt was sent from [place] [facility] here for hallunication History of Present Illness 24 yo AA Female with known schizophrenia was seen at [facility] for hallucination. Apparently pt has been lived in alf and sent to [facility] for acute exacerbation of [...] QDAY Haloperidol* (Haldol*) 5 MG PO BID [place] Carbonate SR* (Lithobid*) 300 MG PO QDAY liTHIum Carbonate SR* ([place] Carbonate SR*) 450 MG PO 4PM Discontinued Reported Medications Citalopram* (CeleXA*) 40 MG PO QDAY Benztropine* 0.5 MG PO BID buPROPion SR* 150 MG PO [id number] Trazodone* (Desyrel*) 100 MG PO HS RisperiDONE* [...] 324 MG QDAY 12/20 09 CKD PO [place] Carbonate 300 MG QDAY 12/20 09 AC PO Polyethylene Glycol 17 GM QDAY 12/20 09 CKD PO Benztropine Mesylate 1 MG 0900,1700 12/19 1700 AC PO Docusate Sodium 100 MG 0900,1700 12/19 1700 AC PO Haloperidol 5 MG 0900,12/19 1700 AC PO [place] Carbonate 450 MG PM 12/19 1700 AC [...] fullly ambulartory Care Level Complexity of Care [id number] Comprehensive history, comprehensive examination, medical decision making of low complexity, at least 20 minutes at the bedside, patient's floor/ unit. ESigned by: YAS GRAZA MD Date:12/21/15 Time:1633 / NOT FOR REDISCLOSURE WITHOUT PATIENT'S INFORMED CONSENT Admission evaluation note * Event Display: Admit Notes Authored Date: [id number] [place], [place] PSYCHIATRIC ADMISSION NOTE NAME: LORETTA CELESTIN : 89 HOSPITAL #: [id number] MR #: [id number] CHART LOC: PCP: DICTATING: MARIA R Robin MD DATE OF ADMISSION: 12/20/15 DATE OF SERVICE: 12/21/15 CHIEF COMPLAINT: This 23-year-old woman was admitted to [facility] on 12/20/15 on a Conditional Voluntary [...] is living in a alf. Came to [place] with her grandmother in [...] year NAME: LORETTA CELESTIN : 89 HOSP#: [id number] MR#: [id number] CHART LOC: PCP: DICTATING: MARIA R Robin MD PSYCHIATRIC ADMISSION NOTE CONTINUED: unknown. TREATMENT PLAN: Resume outpatient medications, physical exam, collateral contact with community caregivers and social network, safety plan, aftercare plan and observe. 927 T:sn DD:20151221 TD:0745 DT:20151221 TT:0924 JOB:[id number] MICHELLE/SHANNON MARIA R Robin MD ESigned by: Date:12/22/15 Time:642 NOT FOR REDISCLOSURE WITHOUT PATIENT'S INFORMED CONSENT Patient Care team information Care Team Personnel Name: Dean Rivas RN Position: S RN Member Role: Primary Care Nurse Name: Jolanta Ace RN Position: [facility] RN Supv Member Role: Primary Care Nurse Name: Fatoumata Stokes DO Position: [facility] Physician - Primary Care Member Role: PCP Address: Address: [address] [place] [address] Adult [place] [address]- Name: Britt Polanco RN Position: S RN Member Role: Primary Care Nurse Name: Awilda Grider RN Position: S RN Member Role: Primary Care Nurse Name: Meagan Darden RN Position: S RN Member Role: Primary Care Nurse Name: Chintan Leach DO Position: [facility] Renal MD Member Role: Lifetime Consulting Physician Address: Address: [address] [place], [place] [address] [place] [address]- Name: Chandler Ye RN Position: [facility] RN Member Role: Primary Care Nurse Name: Apurva iJ RN Position: [facility] ED RN W/OE and Tasks Member Role: Primary Care Nurse Name: Cordelia Matias RN Position: [facility] AMB Nurse Member Role: Primary Care Nurse Name: Riya Moore RN Position: [facility] RN Member Role: Primary Care Nurse Name: Radha Gutierrez Position: [facility] Outreach Member Role: Primary Care Nurse Name: Keenan Vincent RN Position: [facility] SN RN Member Role: Primary Care Nurse Name: Sasha Patricio RN Position: [facility] RN Member Role: Primary Care Nurse Name: Virgie Angel Position: [facility] RN Member Role: Primary Care Nurse Name: Emma Kaminski RN Position: [facility] RN Member Role: Primary Care Nurse Name: Malu Palomo Position: [facility] RN Member Role: Primary Care Nurse Name: Azeb Gusman RN Position: [facility] RN Member Role: Primary Care Nurse Name: Asher Diaz RN Position: [facility] RN Member Role: Primary Care Nurse Name: Kim Cornell RN Position: [facility] RN Member Role: Primary Care Nurse Name: Meredith Martinez RN Position: [facility] RN Member Role: Primary Care Nurse Name: Anika Gotti RN Position: [facility] RN Member Role: Primary Care Nurse Name: Kvng Tompkins RN Position: [facility] ED RN W/OE and Tasks Member Role: Primary Care Nurse Name: Rafiq Muñoz RN Position: [facility] RN Member Role: Primary Care Nurse Name: Justina Walker RN Position: [facility] RN Member Role: Primary Care Nurse Name: Ivone Hidalgo RN Position: [facility] RN Member Role: Primary Care Nurse Name: Mazin Penn MD Position: [facility] Physician - Behavioral Health Member Role: Lifetime Consulting Physician Address: Address: [address] [place] [address]- [place] Care Team Related Persons Name: DORITA MCCOLLUM Address: [address] [place] [address] Name: ASIADEEDEESTEW Address: [address] [facility] [address] Name: LISA PALMA Address: [address] [place] [address]
--- OUTSIDE RECORDS SUMMARY | 2024-06-11 16:46 | XMS_ITS | Continuity of Care Document ---
Author Organization [facility] Address [address] [place] [address]- Care Team Providers Care Tool Sharpener Name Role Phone Fatoumata Stokes DO Primary Care Physician ( [phone] Encounter [facility] Date(s): 04/17/24 - 05/17/24 [facility] [address] [place], [place] [address] Allergies, Adverse Reactions, Alerts Substance [...] 0 Refills, Maintenance, 02/17/24 9:30:00 EDT, Tablet, [facility], Partial fill upon patient request if [...] Refills, Soft Stop, 04/09/24 12:02:00 EDT, Tablet, [facility], Partial fill upon patient request if [...] 0 Refills, Maintenance, 03/09/24 14:42:00 EDT, Nasal [place], [facility], Partial fill upon patient request if the prescription is for a schedule II opi... Start Date: 03/09/24 Status: Ordered lidocaine 5% topical film 1 patch, Topically, Daily, INSTR:REMOVE PATCHES AFTER 12 HOURS, # 30 each, 0 Refills, Maintenance, 04/26/24 17:29:00 EDT, [facility], 30, APPLY 1 PATCH TOPICALLY DAILY,INSTR:REMOVE [...] Replace Required Details, Route to Pharmacy Electronically, [facility], 163, cm, 04/09/24 11:20:00 EDT, Height, [...] 0 Refills, Maintenance, 04/25/24 10:05:00 EDT, ECCapsule, [facility], Partial fill upon patient request if [...] Maintenance,07/19/23 13:53:00 EDT, Route to Pharmacy Electronically, [facility], Partial fill upon patient request if the prescription is for a schedule... Start Date: 07/19/23 Stop Date: 08/18/23 Status: Ordered Provera 10 mg oral tablet 10 mg, 1, tablet, By Mouth, Daily, call the office at [phone] if you do not get a menstrual cycle., # 10 tablet, Refills 0, Tot. Refills 0, Maintenance, 12/21/23 15:20:00 EDT, Route to Pharmacy Electronically, [facility], Partial fill u... Start Date: 12/21/23 Stop Date: 12/31/23 Status: Ordered traZODone 50 mg oral tablet 50 mg, 1, tablet, By Mouth, Daily at bedtime, # 30 tablet, Refills 0, Tot. Refills 0, Maintenance, 07/19/23 13:53:00 EDT, Route to Pharmacy Electronically, [facility], Partial fill upon patient request if the prescription is for a schedule I... Start Date: 07/19/23 Stop Date: 08/18/23 Status: Ordered Vitamin C 250 mg oral tablet See Instructions, 1 tablet By Mouth every other day with iron Daily at 9am, # 45 tablet, 11 Refills, Maintenance, 02/17/24 9:32:00 EDT, [facility], 163, cm, 02/17/24 9:01:00 EDT, Height, [...] Display: History and Physical Hospital Authored Date: [id number] [place], [place] PSYCHIATRIC HISTORY ASSESS EXAM NAME: LORETTA CELESTIN : 89 MR#: [id number] PCP: ADMITTED: 12/20/15 DATE OF SERVICE: 12/20/15 HPI - Hosp Psych H P Chief Complaint Pt was sent from [facility] here for hallunication History of Present Illness 24 yo AA Female with known schizophrenia was seen at [facility] for hallucination. Apparently pt has been lived in [place] [facility] [place] and sent to [facility] for acute exacerbation of her underline schizophrenia. [...] QDAY Haloperidol* (Haldol*) 5 MG PO BID [place] Carbonate SR* (Lithobid*) 300 MG PO QDAY liTHIum Carbonate SR* ([place] Carbonate SR*) 450 MG PO 4PM Discontinued Reported Medications Citalopram* (CeleXA*) 40 MG PO QDAY Benztropine* 0.5 MG PO BID buPROPion SR* 150 MG PO [id number] Trazodone* (Desyrel*) 100 MG PO HS RisperiDONE* [...] 324 MG QDAY 12/20 0900 CKD PO [place] Carbonate 300 MG QDAY 12/20 0900 AC PO Polyethylene Glycol 17 GM QDAY 12/20 0900 CKD PO Benztropine Mesylate 1 MG 0900,1700 12/19 1700 AC PO Docusate Sodium 100 MG 0900,1700 12/19 1700 AC PO Haloperidol 5 MG 0900,1700 12/19 1700 AC PO [place] Carbonate 450 MG PM 12/19 1700 AC [...] fullly ambulartory Care Level Complexity of Care [id number] Comprehensive history, comprehensive examination, medical decision making of low complexity, at least 20 minutes at the bedside, patient's floor/ unit. ESigned by: YAS GARZA MD Date:12/21/15 Time:1633 / NOT FOR REDISCLOSURE WITHOUT PATIENT'S INFORMED CONSENT Admission evaluation note * Event Display: Admit Notes Authored Date: [id number] [place], [place] PSYCHIATRIC ADMISSION NOTE NAME: LORETTA CELESTIN : 89 HOSPITAL #: [id number] MR #: [id number] CHART LOC: PCP: DICTATING: MARIA R Robin MD DATE OF ADMISSION: 12/20/15 DATE OF SERVICE: 12/21/15 CHIEF COMPLAINT: This 23-year-old woman was admitted to [facility] on 12/20/15 on a Conditional Voluntary application because of suicidal ideation. HISTORY OF PRESENT ILLNESS: The patient has been treated for schizoaffective disorder depressed type, posttraumatic stress disorder, intellectual disability and alcohol syndrome with multiple hospitalizations for self-harming behavior and suicidal ideation. She presented to Crisis Services from her [place] reporting that she was having urges to [...] how they had evolved. Staff at the [place] where she lives reported her as unusually [...] HISTORY: The patient is living in a [place]. Came to [place] with her grandmother in [...] year NAME: LORETTA CELESTIN : 89 HOSP#: [id number] MR#: [id number] CHART LOC: PCP: DICTATING: MARIA R Robin MD PSYCHIATRIC ADMISSION NOTE CONTINUED: unknown. TREATMENT PLAN: Resume outpatient medications, physical exam, collateral contact with community caregivers and social network, safety plan, aftercare plan and observe. 927 T:sn DD:[id number] TD:0745 DT:[id number] TT:09 JOB:[id number] MICHELLE/SHANNON MARIA R Robin MD ESigned by: Date:12/22/15 Time:642 NOT FOR REDISCLOSURE WITHOUT PATIENT'S INFORMED CONSENT Patient Care team information Care Team Personnel Name: Dean Rivas RN Position: [facility] RN Member Role: Primary Care Nurse Name: Jolanta Ace RN Position: [facility] RN Supv Member Role: Primary Care Nurse Name: Fatoumata Stokes DO Position: [facility] Physician - Primary Care Member Role: PCP Address: Address: [address] [place] [address]- Name: Awilda Grider RN Position: [facility] RN Member Role: Primary Care Nurse Name: Meagan Darden RN Position: [facility] RN Member Role: Primary Care Nurse Name: Chintan Leach DO Position: [facility] Renal MD Member Role: Lifetime Consulting Physician Address: Address: [address] [place] [address] [address] [facility] [place] [address]- Name: Chandler Ye RN Position: [facility] RN Member Role: Primary Care Nurse Name: Apurva Ji RN Position: [facility] ED RN W/OE and Tasks Member Role: Primary Care Nurse Name: Cordelia Matias RN Position: [facility] AMB Nurse Member Role: Primary Care Nurse Name: Riya Moore RN Position: [facility] RN Member Role: Primary Care Nurse Name: Radha Gutierrez Position: [facility] Outreach Member Role: Primary Care Nurse Name: Keenan Vincent RN Position: [facility] SN RN Member Role: Primary Care Nurse Name: Sasha Patricio RN Position: [facility] RN Member Role: Primary Care Nurse Name: Virgie Angel RN Position: [facility] RN Member Role: Primary Care Nurse Name: Malu Palomo Position: [facility] RN Member Role: Primary Care Nurse Name: Azeb Gusman RN Position: [facility] RN Member Role: Primary Care Nurse Name: Asher Diaz RN Position: [facility] RN Member Role: Primary Care Nurse Name: Kim Cornell RN Position: [facility] RN Member Role: Primary Care Nurse Name: Meredith Martinez RN Position: [facility] RN Member Role: Primary Care Nurse Name: Anika Gotti RN Position: [facility] RN Member Role: Primary Care Nurse Name: Kvng Tompkins RN Position: [facility] ED RN W/OE and Tasks Member Role: Primary Care Nurse Name: Rafiq Muñoz RN Position: [facility] RN Member Role: Primary Care Nurse Name: Justina Walker RN Position: [facility] RN Member Role: Primary Care Nurse Name: Ivone Hidalgo RN Position: [facility] RN Member Role: Primary Care Nurse Name: Mazin Penn MD Position: [facility] Physician - Behavioral Health Member Role: Lifetime Consulting Physician Address: Address: [address] [place] [address]- Care Team Related Persons Name: DORITA MCCOLLUM Address: [address] [place] [address] Name: STEW PECK Address: home [address] [place] [address] Name: LISA PALMA Address: [address] [place] [address]
--- OUTSIDE RECORDS SUMMARY | 2024-06-11 16:46 | XMS_ITS | Continuity of Care Document ---
Author Organization [facility] Address [address] [place] [address]- Care Team Providers Care Clinical Laboratory Aides Teacher Name Role Phone Fatoumata Stokes DO Primary Care Physician Encounter [facility] Date(s): 05/14/24 - 05/14/[address] [address]- Encounter Diagnosis Abdominal pain(Final) - 05/14/24 Discharge Disposition: A-D/C Home Attending Physician: Oliver [...] 0 Refills, Maintenance, 02/17/24 9:30:00 EDT, Tablet, [facility], Partial fill upon patient request if [...] Refills, Soft Stop, 04/09/24 12:02:00 EDT, Tablet, [facility], Partial fill upon patient request if [...] 0 Refills, Maintenance, 03/09/24 14:42:00 EDT, Nasal [place], [facility], Partial fill upon patient request if the prescription is for a schedule II opi... Start Date: 03/09/24 Status: Ordered lidocaine 5% topical film 1 patch, Topically, Daily, INSTR:REMOVE PATCHES AFTER 12 HOURS, # 30 each, 0 Refills, Maintenance, 04/26/24 17:29:00 EDT, [facility], 30, APPLY 1 PATCH TOPICALLY DAILY,INSTR:REMOVE [...] Replace Required Details, Route to Pharmacy Electronically, [facility], 163, cm, 04/09/24 11:20:00 EDT, Height, [...] 0 Refills, Maintenance, 04/25/24 10:05:00 EDT, ECCapsule, [facility], Partial fill upon patient request if [...] Maintenance,07/19/23 13:53:00 EDT, Route to Pharmacy Electronically, [facility], Partial fill upon patient request if the prescription is for a schedule... Start Date: 07/19/23 Stop Date: 08/18/23 Status: Ordered Provera 10 mg oral tablet 10 mg, 1, tablet, By Mouth, Daily, call the office at [phone] if you do not get a menstrual cycle., # 10 tablet, Refills 0, Tot. Refills 0, Maintenance, 12/21/23 15:20:00 EDT, Route to Pharmacy Electronically, [facility], Partial fill u... Start Date: 12/21/23 Stop Date: 12/31/23 Status: Ordered traZODone 50 mg oral tablet 50 mg, 1, tablet, By Mouth, Daily at bedtime, # 30 tablet, Refills 0, Tot. Refills 0, Maintenance, 07/19/23 13:53:00 EDT, Route to Pharmacy Electronically, [facility], Partial fill upon patient request if the prescription is for a schedule I... Start Date: 07/19/23 Stop Date: 08/18/23 Status: Ordered Vitamin C 250 mg oral tablet See Instructions, 1 tablet By Mouth every other day with iron Daily at 9am, # 45 tablet, 11 Refills, Maintenance, 02/17/24 9:32:00 EDT, [facility], 163, cm, 02/17/24 9:01:00 EDT, Height, 96.5, kg, 02/11/24 1:23:00 EDT, Dry Weight Start Date: 02/17/24 Status: Ordered Vitamin C 250 mg oral tablet 1 tablet, By Mouth, Daily in AM, AT 9AM., # 30 tablet, 0 Refills, Maintenance, 02/02/24 15:05:00 EDT, [facility], 163, cm, 01/24/24 9:01:00 EDT, Height, 100.2, kg, 10/17/23 16:02:00 EST, Dry Weight Start Date: 02/02/24 Status: Ordered ZyPREXA 10 mg oral tablet 10 mg, 1, tablet, By Mouth, Daily at bedtime, # 30 tablet, Refills 0, Tot. Refills 0, Maintenance, 07/19/23 13:50:00 EDT, Route to Pharmacy Electronically, [facility], Partial fill upon patient request if [...] 2 Oxygen Saturation [94-100 %] 99 % (05/14/24 2:45 PM) 100 % (05/14/24 11:45 AM) Pulse Rate [55-90 bpm] 82 bpm (05/14/24 2:45 PM) 87 bpm (05/14/24 11:45 AM) Blood Pressure [90-138/55-84 mm Hg] 137/ 70mm Hg (05/14/24 2:45 PM) 142/99mm Hg *H* (05/14/24 11:45 AM) Respiratory Rate [16-30 br/min] 17 br/mi n (05/14/24 2:45 PM) 19 br/min (05/14/24 11:45 AM) Temperature [96.8-100.4 DegF] 97.8 DegF (05/14/24 2:45 PM) 99.0 DegF (05/14/24 11:45 AM) Mode of Delivery (Oxygen) Room air (05/14/24 2:45 PM) Room air (05/14/24 11:45 AM) Blood pressure sites Arm, right (05/14/24 2:45 PM) Arm, right (05/14/24 11:45 AM) Temperature Route Oral (05/14/24 2:45 PM) Oral (05/14/24 11:45 AM) Social History Social History Type Response Smoking Status 5-9 cigarettes (betw een 1/4 to 1/2 pack)/day in last 30 days; Interested in cessation: No; Patient wants NRT during admission Yes; Other: will accept nicotine gum; entered on: 07/14/23 Sex History and physical note * Event Display: History and Physical Hospital Authored Date: [id number] [place], [place] PSYCHIATRIC HISTORY ASSESS EXAM NAME: LORETTA ECLESTIN : 89 MR#: [id number] PCP: ADMITTED: 12/20/15 DATE OF SERVICE: 12/20/15 HPI - Hosp Psych H P Chief Complaint Pt was sent from [facility] ER here for hallunication History of Present Illness 24 yo AA Female with known schizophrenia was seen at [facility] for hallucination. Apparently pt has been lived in senior living and sent to [facility] for acute exacerbation of her underline schizophrenia. [...] QDAY Haloperidol* (Haldol*) 5 MG PO BID [place] Carbonate SR* (Lithobid*) 300 MG PO QDAY liTHIum Carbonate SR* ([place] Carbonate SR*) 450 MG PO 4PM Discontinued Reported Medications Citalopram* (CeleXA*) 40 MG PO QDAY Benztropine* 0.5 MG PO BID buPROPion SR* 150 MG PO [id number] Trazodone* (Desyrel*) 100 MG PO HS RisperiDONE* [...] 324 MG QDAY 12/20 899 CKD PO [place] Carbonate 300 MG QDAY 12/20 09 AC PO Polyethylene Glycol 17 GM QDAY 12/20 899 CKD PO Benztropine Mesylate 1 MG 0900,12/19 1700 AC PO Docusate Sodium 100 MG 0900,0 12/19 1700 AC PO Haloperidol 5 MG 0900,12/19 1700 AC PO [place] Carbonate 450 MG PM 12/19 1700 AC [...] fullly ambulartory Care Level Complexity of Care [id number] Comprehensive history, comprehensive examination, medical decision making of low complexity, at least 20 minutes at the bedside, patient's floor/ unit. ESigned by: YAS GARZA MD Date:12/21/15 Time:1633 / NOT FOR REDISCLOSURE WITHOUT PATIENT'S INFORMED CONSENT Admission evaluation note * Event Display: Admit Notes Authored Date: [id number] [place], [place] PSYCHIATRIC ADMISSION NOTE NAME: LORETTA CELESTIN : 89 HOSPITAL #: [id number] MR #: [id number] CHART LOC: PCP: DICTATING: MARIA R Robin MD DATE OF ADMISSION: 12/20/15 DATE OF SERVICE: 12/21/15 CHIEF COMPLAINT: This 23-year-old woman was admitted to [facility] on 12/20/15 on a Conditional [...] living in a senior living. Came to [place] with her grandmother in 2013, was very [...] year NAME: LORETTA CELESTIN : 89 HOSP#: [id number] MR#: [id number] CHART LOC: PCP: DICTATING: MARIA R Robin MD PSYCHIATRIC ADMISSION NOTE CONTINUED: unknown. TREATMENT PLAN: Resume outpatient medications, physical exam, collateral contact with community caregivers and social network, safety plan, aftercare plan and observe. 927 T: DD:[id number] TD:0745 DT:20151221 TT:0924 JOB:[id number] MICHELLE/SHANNON MARIA R Robin MD ESigned by: Date:12/22/15 Time:0643 NOT FOR REDISCLOSURE WITHOUT PATIENT'S INFORMED CONSENT Note * Kim Adams DO: PERFORM Event Display: Patient Education Leaflets Authored Date: [id number] Constipation (Adult) ?? [id number] Constipation (Adult) Constipation means that you have [...] Weakness ?? Last Reviewed Date: 2021 ?? [id number] [employer]. All rights reserved. This information is not intended as a substitute for professional medical care. Always follow your healthcare professional's instructions. ?? Patient Care team information Care Team Personnel Name: Dean Rivas RN Position: [facility] RN Member Role: Primary Care Nurse Name: Jolanta Ace RN Position: [facility] RN Supv Member Role: Primary Care Nurse Name: Fatoumata Stokes DO Position: [facility] Physician - Primary Care Member Role: PCP Address: Address: [address] [place] [address] Adult [place] [address]- Name: Awilda Grider RN Position: S RN Member Role: Primary Care Nurse Name: Meagan Darden RN Position: S RN Member Role: Primary Care Nurse Name: Chintan Leach DO Position: [facility] Renal MD Member Role: Lifetime Consulting Physician Address: Address: [address] [place] [address] [address] [facility] [place] [address]- [place] Name: Chandler Ye RN Position: [facility] RN Member Role: Primary Care Nurse Name: Apurva Ji RN Position: [facility] ED RN W/OE and Tasks Member Role: Primary Care Nurse Name: Cordelia Matias RN Position: [facility] AMB Nurse Member Role: Primary Care Nurse Name: Riya Moore RN Position: [facility] RN Member Role: Primary Care Nurse Name: Radha Gutierrez Position: [facility] Outreach Member Role: Primary Care Nurse Name: Keenan Vincent RN Position: [facility] SN RN Member Role: Primary Care Nurse Name: Sasha Patricio RN Position: [facility] RN Member Role: Primary Care Nurse Name: Virgie Angel RN Position: [facility] RN Member Role: Primary Care Nurse Name: Malu Palomo Position: [facility] RN Member Role: Primary Care Nurse Name: Azeb Gusman RN Position: [facility] RN Member Role: Primary Care Nurse Name: Asher Diaz RN Position: [facility] RN Member Role: Primary Care Nurse Name: Kim Cornell RN Position: [facility] RN Member Role: Primary Care Nurse Name: Meredith Martinez RN Position: [facility] RN Member Role: Primary Care Nurse Name: Anika Gotti RN Position: [facility] RN Member Role: Primary Care Nurse Name: Kvng Tompkins RN Position: [facility] ED RN W/OE and Tasks Member Role: Primary Care Nurse Name: Rafiq Muñoz RN Position: [facility] RN Member Role: Primary Care Nurse Name: Justina Walker RN Position: [facility] RN Member Role: Primary Care Nurse Name: Ivone Hidalgo RN Position: [facility] RN Member Role: Primary Care Nurse Name: Mazin Penn MD Position: [facility] Physician - Behavioral Health Member Role: Lifetime Consulting Physician Address: Address: [address] [place] [address]- [place] Care Team Related Persons Name: DORITA MCCOLLUM Address: [address] [place] [address] Name: KIA PECKCY Address: [address] [place] [address] Name: LISA PALMA Address: [address] [place] [address]
--- OUTSIDE RECORDS SUMMARY | 2024-06-11 16:47 | XMS_ITS | Continuity of Care Document ---
Author Organization [facility] Address [address] [place] [address]- Care Team Providers Care Pi/Senior Research Associate Name Role Phone Fatoumata Stokes DO Primary Care Physician [facility]): [facility]12/24 - 05/12/24 [facility] [address] [place], [place] [address] [[email or web address]] Allergies, Adverse Reactions, [...] 0 Refills, Maintenance, 02/17/24 9:30:00 EDT, Tablet, [facility], Partial fill upon patient request if [...] Refills, Soft Stop, 04/09/24 12:02:00 EDT, Tablet, [facility], Partial fill upon patient request if [...] 0 Refills, Maintenance, 03/09/24 14:42:00 EDT, Nasal [place], [facility], Partial fill upon patient request if the prescription is for a schedule II opi... Start Date: 03/09/24 Status: Ordered lidocaine 5% topical film 1 patch, Topically, Daily, INSTR:REMOVE PATCHES AFTER 12 HOURS, # 30 each, 0 Refills, Maintenance, 04/26/24 17:29:00 EDT, [facility], 30, APPLY 1 PATCH TOPICALLY DAILY,INSTR:REMOVE [...] Replace Required Details, Route to Pharmacy Electronically, [facility], 163, cm, 04/09/24 11:20:00 EDT, Height, [...] 0 Refills, Maintenance, 04/25/24 10:05:00 EDT, ECCapsule, [facility], Partial fill upon patient request if [...] Maintenance,07/19/23 13:53:00 EDT, Route to Pharmacy Electronically, [facility], Partial fill upon patient request if the prescription is for a schedule... Start Date: 07/19/23 Stop Date: 08/18/23 Status: Ordered Provera 10 mg oral tablet 10 mg, 1, tablet, By Mouth, Daily, call the office at [phone] if you do not get a menstrual cycle., # 10 tablet, Refills 0, Tot. Refills 0, Maintenance, 12/21/23 15:20:00 EDT, Route to Pharmacy Electronically, [facility], Partial fill u... Start Date: 12/21/23 Stop Date: 12/31/23 Status: Ordered traZODone 50 mg oral tablet 50 mg, 1, tablet, By Mouth, Daily at bedtime, # 30 tablet, Refills 0, Tot. Refills 0, Maintenance, 07/19/23 13:53:00 EDT, Route to Pharmacy Electronically, [facility], Partial fill upon patient request if the prescription is for a schedule I... Start Date: 07/19/23 Stop Date: 08/18/23 Status: Ordered Vitamin C 250 mg oral tablet See Instructions, 1 tablet By Mouth every other day with iron Daily at 9am, # 45 tablet, 11 Refills, Maintenance, 02/17/24 9:32:00 EDT, [facility], 163, cm, 02/17/24 9:01:00 EDT, Height, 96.5, kg, 02/11/24 1:23:00 EDT, Dry Weight Start Date: 02/17/24 Status: Ordered Vitamin C 250 mg oral tablet 1 tablet, By Mouth, Daily in AM, AT 9AM., # 30 tablet, 0 Refills, Maintenance, 02/02/24 15:05:00 EDT, [facility], 163, cm, 01/24/24 9:01:00 EDT, Height, 100.2, kg, 10/17/23 16:02:00 EST, Dry Weight Start Date: 02/02/24 Status: Ordered ZyPREXA 10 mg oral tablet 10 mg, 1, tablet, By Mouth, Daily at bedtime, # 30 tablet, Refills 0, Tot. Refills 0, Maintenance, 07/19/23 13:50:00 EDT, Route to Pharmacy Electronically, [facility], Partial fill upon patient request if [...] Display: History and Physical Hospital Authored Date: [id number] [place], [place] PSYCHIATRIC HISTORY ASSESS EXAM NAME: LORETTA CELESTIN : 89 MR#: [id number] PCP: ADMITTED: 12/20/15 DATE OF SERVICE: 12/20/15 HPI - Hosp Psych H P Chief Complaint Pt was sent from [facility] here for hallunication History of Present Illness 24 yo AA Female with known schizophrenia was seen at [facility] ER for hallucination. Apparently pt has been lived in jail and sent to [facility] for [...] QDAY Haloperidol* (Haldol*) 5 MG PO BID [place]av[place] Carbonate SR* (Lithobid*) 300 MG PO QDAY liTHIum Carbonate SR* ([place]av[place] Carbonate SR*) 450 MG PO 4PM Discontinued Reported Medications Citalopram* (CeleXA*) 40 MG PO QDAY Benztropine* 0.5 MG PO BID buPROPion SR* 150 MG PO [id number] Trazodone* (Desyrel*) 100 MG PO HS RisperiDONE* [...] 324 MG QDAY 12/20 0900 CKD PO [place]avine Carbonate 300 MG QDAY 12/20 0900 AC PO Polyethylene Glycol 17 GM QDAY 12/20 0900 CKD PO Benztropine Mesylate 1 MG 0900,1700 12/19 1700 AC PO Docusate Sodium 100 MG 0900,1700 12/19 1700 AC PO Haloperidol 5 MG 0900,1700 12/19 1700 AC PO [place] Carbonate 450 MG PM 12/19 1700 AC [...] fullly ambulartory Care Level Complexity of Care [id number] Comprehensive history, comprehensive examination, medical decision making of low complexity, at least 20 minutes at the bedside, patient's floor/ unit. ESigned by: YAS GARZA MD Date:12/21/15 Time:1633 / NOT FOR REDISCLOSURE WITHOUT PATIENT'S INFORMED CONSENT Admission evaluation note * Event Display: Admit Notes Authored Date: [id number] [place], [place] PSYCHIATRIC ADMISSION NOTE NAME: LORETTA CELESTIN : 89 HOSPITAL #: [id number] MR #: [id number] CHART LOC: PCP: DICTATING: MARIA R Robin MD DATE OF ADMISSION: 12/20/15 DATE OF SERVICE: 12/21/15 CHIEF COMPLAINT: This 23-year-old woman was admitted to [facility] on 12/20/15 on [...] is living in a jail. Came to [place] with her grandmother in 2013, was very [...] year NAME: LORETTA CELESTIN : 89 HOSP#: [id number] MR#: [id number] CHART LOC: PCP: DICTATING: MARIA R Robin MD PSYCHIATRIC ADMISSION NOTE CONTINUED: unknown. TREATMENT PLAN: Resume outpatient medications, physical exam, collateral contact with community caregivers and social network, safety plan, aftercare plan and observe. 927 T:sn DD:[id number] TD:0745 DT:20151221 TT:09 JOB:[id number] MICHELLE/SHANNON MARIA R Robin MD ESigned by: Date:12/22/15 Time:642 NOT FOR REDISCLOSURE WITHOUT PATIENT'S INFORMED CONSENT Patient Care team information Care Team Personnel Name: Dean Rivas RN Position: [facility] RN Member Role: Primary Care Nurse Name: Jolanta Ace RN Position: [facility] RN Supv Member Role: Primary Care Nurse Name: Fatoumata Stokes DO Position: [facility] Physician - Primary Care Member Role: PCP Address: Address: [address] [place] [address]- Name: Awilda Grider RN Position: [facility] RN Member Role: Primary Care Nurse Name: Meagan Darden RN Position: [facility] RN Member Role: Primary Care Nurse Name: Chintan Leach DO Position: [facility] Renal MD Member Role: Lifetime Consulting Physician Address: Address: [address] [place] [address] [address] [facility] [place] [address]- Name: Chandler Ye RN Position: [facility] RN Member Role: Primary Care Nurse Name: Apurva Ji RN Position: [facility] ED RN W/OE and Tasks Member Role: Primary Care Nurse Name: Cordelia Matias RN Position: [facility] AMB Nurse Member Role: Primary Care Nurse Name: Riya Moore RN Position: [facility] RN Member Role: Primary Care Nurse Name: Radha Gutierrez Position: [facility] Outreach Member Role: Primary Care Nurse Name: Keenan Vincent RN Position: [facility] SN RN Member Role: Primary Care Nurse Name: Sasha Patricio RN Position: [facility] RN Member Role: Primary Care Nurse Name: Virgie Angel RN Position: [facility] RN Member Role: Primary Care Nurse Name: Malu Palomo Position: [facility] RN Member Role: Primary Care Nurse Name: Azeb Gusman RN Position: [facility] RN Member Role: Primary Care Nurse Name: Asher Diaz RN Position: [facility] RN Member Role: Primary Care Nurse Name: Kim Cornell RN Position: [facility] RN Member Role: Primary Care Nurse Name: Meredith Martinez RN Position: [facility] RN Member Role: Primary Care Nurse Name: Anika Gotti RN Position: [facility] RN Member Role: Primary Care Nurse Name: Kvng Tompkins RN Position: [facility] ED RN W/OE and Tasks Member Role: Primary Care Nurse Name: Rafiq Muñoz RN Position: [facility] RN Member Role: Primary Care Nurse Name: Justina Walker RN Position: [facility] RN Member Role: Primary Care Nurse Name: Ivone Hidalgo RN Position: [facility] RN Member Role: Primary Care Nurse Name: Mazin Penn MD Position: [facility] Physician - Behavioral Health Member Role: Lifetime Consulting Physician Address: Address: [address] [place] [address]- Care Team Related Persons Name: DORITA MCCOLLUM Address: [address] [place] [address] Name: STEW PECK Address: home [address] [place] [address] Name: LISA PALMA Address: [address] [place] [address]
--- OUTSIDE RECORDS SUMMARY | 2024-06-11 16:47 | XMS_ITS | Continuity of Care Document ---
Author Organization [facility] Address [address] [place] [address]- Care Team Providers Care Water System Operator Name Role Phone Fatoumata Stokes DO Primary Care Physician [facility]): 12[facility]28/23 - 02/16/24 [facility] [address] [place], [place] [address] Attending Physician: Melissa FINISHED GOODS INSPECTOR, Wendy Allergies, Adverse Reactions, Alerts Substance Reaction [...] Refills, Soft Stop, 12/21/23 15:20:00 EDT, Tablet, [facility], Partial fill upon patient request if [...] 0 Refills, Maintenance, 07/05/23 0:27:00 EDT, Nasal [place], Partial fill upon patient request if the [...] 02/13/24 16:31:00 EDT, Route to Pharmacy Electronically, [facility], 163, cm, 02/11/24 1:23:00 EDT, Height, [...] 0 Refills, Maintenance, 12/23/23 17:55:00 EDT, ECCapsule, [facility], Partial fill upon patient request if [...] By Mouth, Daily, call the office at [phone] if you do not get a menstrual cycle., # 10 tablet, Refills 0, Tot. Refills 0, Maintenance, 12/21/23 15:20:00 EDT, Route to Pharmacy Electronically, [facility], Partial fill u... Start Date: 12/21/23 Stop Date: 12/31/23 Status: Ordered traZODone 50 mg oral tablet 50 mg, 1, tablet, By Mouth, Daily at bedtime, # 30 tablet, Refills 0, Tot. Refills 0, Maintenance, 07/19/23 13:53:00 EDT, Route to Pharmacy Electronically, [facility], Partial fill upon patient request if the prescription is for a schedule I... Start Date: 07/19/23 Stop Date: 08/18/23 Status: Ordered Vitamin C 250 mg oral tablet 1 tablet, By Mouth, Daily in AM, AT 9AM., # 30 tablet, 0 Refills, Maintenance, 02/02/24 15:05:00 EDT, [facility], 163, cm, 01/24/24 9:01:00 EDT, Height, 100.2, kg, 10/17/23 16:02:00 EST, Dry Weight Start Date: 02/02/24 Status: Ordered ZyPREXA 10 mg oral tablet 10 mg, 1, tablet, By Mouth, Daily at bedtime, # 30 tablet, Refills 0, Tot. Refills 0, Maintenance, 07/19/23 13:50:00 EDT, Route to Pharmacy Electronically, [facility], Partial fill upon patient request if [...] Display: History and Physical Hospital Authored Date: [id number] [place], [place] PSYCHIATRIC HISTORY ASSESS EXAM NAME: LORETTA CELESTIN : 89 MR#: [id number] PCP: ADMITTED: 12/20/15 DATE OF SERVICE: 12/20/15 HPI - Hosp Psych H P Chief Complaint Pt was sent from [facility] here for hallunication History of Present Illness 24 yo AA Female with known schizophrenia was seen at [facility] for hallucination. Apparently pt has been lived in [facility] and sent to [facility] for acute exacerbation of her underline schizophrenia. [...] QDAY Haloperidol* (Haldol*) 5 MG PO BID [place] Carbonate SR* (Lithobid*) 300 MG PO QDAY liTHIum Carbonate SR* ([place] Carbonate SR*) 450 MG PO 4PM Discontinued Reported Medications Citalopram* (CeleXA*) 40 MG PO QDAY Benztropine* 0.5 MG PO BID buPROPion SR* 150 MG PO [id number] Trazodone* (Desyrel*) 100 MG PO HS RisperiDONE* [...] 324 MG QDAY 12/20 0900 CKD PO [place] Carbonate 300 MG QDAY 12/20 0900 AC PO Polyethylene Glycol 17 GM QDAY 12/20 09 CKD PO Benztropine Mesylate 1 MG 0900,1700 12/19 1700 AC PO Docusate Sodium 100 MG 0900,1700 12/19 1700 AC PO Haloperidol 5 MG 0900,1700 12/19 1700 AC PO [place] Carbonate 450 MG PM 12/19 1700 AC [...] fullly ambulartory Care Level Complexity of Care [id number] Comprehensive history, comprehensive examination, medical decision making of low complexity, at least 20 minutes at the bedside, patient's floor/ unit. ESigned by: YAS GARZA MD Date:12/21/15 Time:1633 / NOT FOR REDISCLOSURE WITHOUT PATIENT'S INFORMED CONSENT Admission evaluation note * Event Display: Admit Notes Authored Date: [place], [place] PSYCHIATRIC ADMISSION NOTE NAME: LORETTA CELESTIN : 89 HOSPITAL #: [id number] MR #: [id number] CHART LOC: PCP: DICTATING: MARIA R Robin MD DATE OF ADMISSION: 12/20/15 DATE OF SERVICE: 12/21/15 CHIEF COMPLAINT: This 23-year-old woman was admitted to [facility] on 12/20/15 on a Conditional Voluntary [...] is living in a chcf. Came to [place] with her grandmother in [...] year NAME: LORETTA CELESTIN : 89 HOSP#: [id number] MR#: [id number] CHART LOC: PCP: DICTATING: MARIA R Robin MD PSYCHIATRIC ADMISSION NOTE CONTINUED: unknown. TREATMENT PLAN: Resume outpatient medications, physical exam, collateral contact with community caregivers and social network, safety plan, aftercare plan and observe. 927 T: DD:[id number] TD:0745 DT:20151221 TT:0924 JOB:[id number] MICHELLE/SHANNON MARIA R Robin MD ESigned by: Date:12/22/15 Time:642 NOT FOR REDISCLOSURE WITHOUT PATIENT'S INFORMED CONSENT Patient Care team information Care Team Personnel Name: Dean Rivas RN Position: [facility] RN Member Role: Primary Care Nurse Name: Jolanta Ace RN Position: [facility] RN Supv Member Role: Primary Care Nurse Name: Fatoumata Stokes DO Position: [facility] Physician - Primary Care Member Role: PCP Address: Address: [address] [place] [address] Adult [place] [address]- Name: Awilda Grider RN Position: [facility] RN Member Role: Primary Care Nurse Name: Meagan Darden RN Position: [facility] RN Member Role: Primary Care Nurse Name: Chintan Leach DO Position: [facility] Renal MD Member Role: Lifetime Consulting Physician Address: Address: [address] [place], [place] [address] [place] [address]- Name: Chandler Ye RN Position: [facility] RN Member Role: Primary Care Nurse Name: Apurva Ji RN Position: [facility] ED RN W/OE and Tasks Member Role: Primary Care Nurse Name: Cordelia Matias RN Position: [facility] AMB Nurse Member Role: Primary Care Nurse Name: Riya Moore RN Position: [facility] RN Member Role: Primary Care Nurse Name: Radha Gutierrez Position: [facility] Outreach Member Role: Primary Care Nurse Name: Keenan Vincent RN Position: [facility] RN Member Role: Primary Care Nurse Name: Sasha Patricio RN Position: [facility] RN Member Role: Primary Care Nurse Name: Virgie Angel Position: [facility] RN Member Role: Primary Care Nurse Name: Malu Palomo Position: [facility] RN Member Role: Primary Care Nurse Name: Azeb Gusman RN Position: [facility] RN Member Role: Primary Care Nurse Name: Asher Diaz RN Position: [facility] RN Member Role: Primary Care Nurse Name: Kim Cornell RN Position: [facility] RN Member Role: Primary Care Nurse Name: Meredith Martinez RN Position: [facility] RN Member Role: Primary Care Nurse Name: Anika Gotti RN Position: [facility] RN Member Role: Primary Care Nurse Name: Kvng Tompkins RN Position: [facility] ED RN W/OE and Tasks Member Role: Primary Care Nurse Name: Rafiq Muñoz RN Position: [facility] RN Member Role: Primary Care Nurse Name: Justina Walker RN Position: [facility] RN Member Role: Primary Care Nurse Name: Ivone Hidalgo RN Position: [facility] RN Member Role: Primary Care Nurse Name: Mazin Penn MD Position: [facility] Physician - Behavioral Health Member Role: Lifetime Consulting Physician Address: Address: [address] [place] [address] [place] Care Team Related Persons Name: DORITA MCCOLLUM Address: [address] [place] [address] Name: STEW PECK Address: [address] [place] [address] Name: LISA PALMA Address: [address] [place] [address]
--- OUTSIDE RECORDS SUMMARY | 2024-06-11 16:47 | XMS_ITS | Continuity of Care Document ---
Author Organization [facility] Address [address] [place] [address]- Care Team Providers Care Printer Operator Name Role Phone Fatoumata Stokes DO Primary Care Physician ( [phone] Encounter [facility] Date(s): 04/04/24 - 05/04/[address] [address] Attending Physician: Admflorencia, Jada Admitting Physician: Admtr, Ar8 Referring Physician: Admtr, [...] 0 Refills, Maintenance, 02/17/24 9:30:00 EDT, Tablet, [facility], Partial fill upon patient request if [...] Refills, Soft Stop, 04/09/24 12:02:00 EDT, Tablet, [facility], Partial fill upon patient request if [...] 0 Refills, Maintenance, 03/09/24 14:42:00 EDT, Nasal [place], [facility], Partial fill upon patient request if the prescription is for a schedule II opi... Start Date: 03/09/24 Status: Ordered lidocaine 5% topical film 1 patch, Topically, Daily, INSTR:REMOVE PATCHES AFTER 12 HOURS, # 30 each, 0 Refills, Maintenance, 04/26/24 17:29:00 EDT, [facility], 30, APPLY 1 PATCH TOPICALLY DAILY,INSTR:REMOVE PATCHES AFTER 12 HOURS, 163, cm, 04/25/24 14:35:00 EDT, Surya... Start Date: 04/26/24 Status: Ordered lithium 450 [...] Replace Required Details, Route to Pharmacy Electronically, [facility], 163, cm, 04/09/24 11:20:00 EDT, Height, [...] 0 Refills, Maintenance, 04/25/24 10:05:00 EDT, ECCapsule, [facility], Partial fill upon patient request if [...] Maintenance,07/19/23 13:53:00 EDT, Route to Pharmacy Electronically, [facility], Partial fill upon patient request if the prescription is for a schedule... Start Date: 07/19/23 Stop Date: 08/18/23 Status: Ordered Provera 10 mg oral tablet 10 mg, 1, tablet, By Mouth, Daily, call the office at [phone] if you do not get a menstrual cycle., # 10 tablet, Refills 0, Tot. Refills 0, Maintenance, 12/21/23 15:20:00 EDT, Route to Pharmacy Electronically, [facility], Partial fill u... Start Date: 12/21/23 Stop Date: 12/31/23 Status: Ordered traZODone 50 mg oral tablet 50 mg, 1, tablet, By Mouth, Daily at bedtime, # 30 tablet, Refills 0, Tot. Refills 0, Maintenance, 07/19/23 13:53:00 EDT, Route to Pharmacy Electronically, [facility], Partial fill upon patient request if the prescription is for a schedule I... Start Date: 07/19/23 Stop Date: 08/18/23 Status: Ordered Vitamin C 250 mg oral tablet See Instructions, 1 tablet By Mouth every other day with iron Daily at 9am, # 45 tablet, 11 Refills, Maintenance, 02/17/24 9:32:00 EDT, [facility], 163, cm, 02/17/24 9:01:00 EDT, Height, 96.5, kg, 02/11/24 1:23:00 EDT, Dry Weight Start Date: 02/17/24 Status: Ordered Vitamin C 250 mg oral tablet 1 tablet, By Mouth, Daily in AM, AT 9AM., # 30 tablet, 0 Refills, Maintenance, 02/02/24 15:05:00 EDT, [facility], 163, cm, 01/24/24 9:01:00 EDT, Height, 100.2, kg, 10/17/23 16:02:00 EST, Dry Weight Start Date: 02/02/24 Status: Ordered ZyPREXA 10 mg oral tablet 10 mg, 1, tablet, By Mouth, Daily at bedtime, # 30 tablet, Refills 0, Tot. Refills 0, Maintenance, 07/19/23 13:50:00 EDT, Route to Pharmacy Electronically, [facility], Partial fill upon patient request if [...] Display: History and Physical Hospital Authored Date: [id number] [place], [place] PSYCHIATRIC HISTORY ASSESS EXAM NAME: LORETTA CELESTIN : 89 MR#: [id number] PCP: ADMITTED: 12/20/15 DATE OF SERVICE: 12/20/15 HPI - Hosp Psych H P Chief Complaint Pt was sent from [facility] ER here for hallunication History of Present Illness 24 yo AA Female with known schizophrenia was seen at [facility] ER for hallucination. Apparently pt has been lived in [facility] and sent to [facility] for acute exacerbation of her underline schizophrenia. [...] QDAY Haloperidol* (Haldol*) 5 MG PO BID Tenafly Carbonate SR* (Lithobid*) 300 MG PO QDAY liTHIum Carbonate SR* ([place]afly Carbonate SR*) 450 MG PO 4PM Discontinued Reported Medications Citalopram* (CeleXA*) 40 MG PO QDAY Benztropine* 0.5 MG PO BID buPROPion SR* 150 MG PO [id number] Trazodone* (Desyrel*) 100 MG PO HS RisperiDONE* [...] 324 MG QDAY 12/20 0900 CKD PO Tenafly Carbonate 300 MG QDAY 12/20 0900 AC PO Polyethylene Glycol 17 GM QDAY 12/20 0900 CKD PO Benztropine Mesylate 1 MG 0900,1700 12/19 1700 AC PO Docusate Sodium 100 MG 0900,1700 12/19 1700 AC PO Haloperidol 5 MG 0900,1700 12/19 1700 AC PO Tenafly Carbonate 450 MG PM 12/19 1700 AC PO Risperidone 0.5 MG 0900,0 12/19 1700 AC PO Senna 17.2 MG 0900,12/19 [...] fullly ambulartory Care Level Complexity of Care A02391 Comprehensive history, comprehensive examination, medical decision making of low complexity, at least 20 minutes at the bedside, patient's floor/ unit. ESigned by: YAS GARZA MD Date:12/21/15 Time:1633 / NOT FOR REDISCLOSURE WITHOUT PATIENT'S INFORMED CONSENT Admission evaluation note * Event Display: Admit Notes Authored Date: [id number] [place], [place] PSYCHIATRIC ADMISSION NOTE NAME: LORETTA CELESTIN : 89 HOSPITAL #: [id number] MR #: [id number] CHART LOC: PCP: DICTATING: MARIA R Robin MD DATE OF ADMISSION: 12/20/15 DATE OF SERVICE: 12/21/15 CHIEF COMPLAINT: This 23-year-old woman was admitted to [facility] on 12/20/15 on a Conditional [...] year NAME: LORETTA CELESTIN : 89 HOSP#: [id number] MR#: [id number] CHART LOC: PCP: DICTATING: MARIA R Robin MD PSYCHIATRIC ADMISSION NOTE CONTINUED: unknown. TREATMENT PLAN: Resume outpatient medications, physical exam, collateral contact with community caregivers and social network, safety plan, aftercare plan and observe. 927 T:sn DD:[id number] TD:0745 DT:20151221 TT:0924 JOB:[id number] MICHELLE/SHANNON MARIA R Robin MD ESigned by: Date:03/28/16 Time:06 NOT FOR REDISCLOSURE WITHOUT PATIENT'S INFORMED CONSENT Patient Care team information Care Team Personnel Name: Dean Rivas RN Position: [facility] RN Member Role: Primary Care Nurse Name: Jolanta Ace RN Position: [facility] RN Veronica Member Role: Primary Care Nurse Name: Fatoumata Stokes DO Position: [facility] Physician - Primary Care Member Role: PCP Address: Address: [address] [place] [address] Adult [facility] [place] [address]- Name: Awilda Grider RN Position: [facility] RN Member Role: Primary Care Nurse Name: Meagan Darden RN Position: [facility] RN Member Role: Primary Care Nurse Name: Chintan Leach DO Position: [facility] Renal MD Member Role: Lifetime Consulting Physician Address: Address: [address] [place] [address] [address] [facility] [place] [address]- Name: Chandler Ye RN Position: [facility] RN Member Role: Primary Care Nurse Name: Apurva Ji RN Position: [facility] ED RN W/OE and Tasks Member Role: Primary Care Nurse Name: Cordelia Matias RN Position: [facility] AMB Nurse Member Role: Primary Care Nurse Name: Riya Moore RN Position: [facility] RN Member Role: Primary Care Nurse Name: Radha Gutierrez Position: [facility] Outreach Member Role: Primary Care Nurse Name: Keenan Vincent RN Position: [facility] SN RN Member Role: Primary Care Nurse Name: Sasha Patricio RN Position: [facility] RN Member Role: Primary Care Nurse Name: Virgie Angel RN Position: [facility] RN Member Role: Primary Care Nurse Name: Malu Palomo Position: [facility] RN Member Role: Primary Care Nurse Name: Azeb Gusman RN Position: [facility] RN Member Role: Primary Care Nurse Name: Asher Diaz RN Position: [facility] RN Member Role: Primary Care Nurse Name: Kim Cornell RN Position: [facility] RN Member Role: Primary Care Nurse Name: Meredith Martinez RN Position: [facility] RN Member Role: Primary Care Nurse Name: Anika Gotti RN Position: [facility] RN Member Role: Primary Care Nurse Name: Kvng Tompkins RN Position: [facility] ED RN W/OE and Tasks Member Role: Primary Care Nurse Name: Rafiq Muñoz RN Position: [facility] RN Member Role: Primary Care Nurse Name: Justina Walker RN Position: [facility] RN Member Role: Primary Care Nurse Name: Ivone Hidalgo RN Position: [facility] RN Member Role: Primary Care Nurse Name: Mazin Penn MD Position: [facility] Physician - Behavioral Health Member Role: Lifetime Consulting Physician Address: Address: [address] [place] [address]- [place] Care Team Related Persons Name: DOIRTA MCCOLLUM Address: [address] [place] [address] Name: STEW PECK Address: home [address] [place] [address] Name: LISA PALMA Address: [address] [place] [address]
--- OUTSIDE RECORDS SUMMARY | 2024-06-11 16:47 | XMS_ITS | Continuity of Care Document ---
Author Organization [facility] Address [address] [place] [address]- Care Team Providers Care Helper Animal Laboratory Name Role Phone Fatoumata Stokes DO Primary Care Physician Encounter [facility] Date(s): 05/26/24 - 05/26/[address] [address]- Discharge Disposition: A-D/C Home Attending Physician: Oliver [...] 0 Refills, Maintenance, 02/17/24 9:30:00 EDT, Tablet, [facility], Partial fill upon patient request if [...] Refills, Soft Stop, 04/09/24 12:02:00 EDT, Tablet, [facility], Partial fill upon patient request if the prescription is for a schedule II opioid drug., 163, cm, 03/26... Start Date: 04/09/24 Status: Ordered docusate-senna 50 mg-8.6 mg oral capsule 1 capsule, By Mouth, Daily in PM, # 60 capsule, 0 Refills, Acute 05/30/24 22:00:00 EDT, 05/26/24 15:28:00 EDT, Capsule, [facility], Partial fill upon patient request if the prescription is for a schedule II opioid drug., 1 capsule By Mouth D... Start Date: 05/26/24 Stop Date: 05/30/24 Status: Ordered ferrous sulfate 325 mg oral [...] 0 Refills, Maintenance, 03/09/24 14:42:00 EDT, Nasal [place], [facility], Partial fill upon patient request if the prescription is for a schedule II opi... Start Date: 03/09/24 Status: Ordered lidocaine 5% topical film 1 patch, Topically, Daily, INSTR:REMOVE PATCHES AFTER 12 HOURS, # 30 each, 0 Refills, Maintenance, 04/26/24 17:29:00 EDT, [facility], 30, APPLY 1 PATCH TOPICALLY DAILY,INSTR:REMOVE [...] MOUTH AT 9AM, # 30 tablet, Refills 5, Maintenance, 05/25/24 12:46:00 EDT, Instructions Replace Required Details, Route to Pharmacy Electronically, [facility], 163, cm, 05/22/24 10:33:00 EDT, Height, 98.8, k... Start Date: 05/25/24 Status: Ordered MiraLax Powder 1 pack/packet = [...] 0 Refills, Maintenance, 04/25/24 10:05:00 EDT, ECCapsule, [facility], Partial fill upon patient request if [...] Maintenance,07/19/23 13:53:00 EDT, Route to Pharmacy Electronically, [facility], Partial fill upon patient request if the prescription is for a schedule... Start Date: 07/19/23 Stop Date: 08/18/23 Status: Ordered Provera 10 mg oral tablet 10 mg, 1, tablet, By Mouth, Daily, call the office at [phone] if you do not get a menstrual cycle., # 10 tablet, Refills 0, Tot. Refills 0, Maintenance, 12/21/23 15:20:00 EDT, Route to Pharmacy Electronically, [facility], Partial fill u... Start Date: 12/21/23 Stop Date: 12/31/23 Status: Ordered traZODone 50 mg oral tablet 50 mg, 1, tablet, By Mouth, Daily at bedtime, # 30 tablet, Refills 0, Tot. Refills 0, Maintenance, 07/19/23 13:53:00 EDT, Route to Pharmacy Electronically, [facility], Partial fill upon patient request if the prescription is for a schedule I... Start Date: 07/19/23 Stop Date: 08/18/23 Status: Ordered Vitamin C 250 mg oral tablet See Instructions, 1 tablet By Mouth every other day with iron Daily at 9am, # 45 tablet, 11 Refills, Maintenance, 02/17/24 9:32:00 EDT, [facility], 163, cm, 02/17/24 9:01:00 EDT, Height, 96.5, kg, 02/11/24 1:23:00 EDT, Dry Weight Start Date: 02/17/24 Status: Ordered Vitamin C 250 mg oral tablet 1 tablet, By Mouth, Daily in AM, AT 9AM., # 30 tablet, 0 Refills, Maintenance, 02/02/24 15:05:00 EDT, [facility], 163, cm, 01/24/24 9:01:00 EDT, Height, 100.2, kg, 10/17/23 16:02:00 EST, Dry Weight Start Date: 02/02/24 Status: Ordered ZyPREXA 10 mg oral tablet 10 mg, 1, tablet, By Mouth, Daily at bedtime, # 30 tablet, Refills 0, Tot. Refills 0, Maintenance, 07/19/23 13:50:00 EDT, Route to Pharmacy Electronically, [facility], Partial fill upon patient request if [...] Exam Date Time Procedure Performing Provider Status 05/26/24 12:13 PM Abdomen AP Jose Colindres; Auth (Cecelia ified) Notes: (Abdomen AP) Reason For Exam: Pain RESULT: XR Abdomen AP XR Abdomen AP 1 view INDICATION/CLINICAL QUESTION: Hx of Present Illness: pt coming from [facility] with abd pain paranoia that she has bugs in her stomach. Pt states she believes the water she is drinking has been poisoning her. She also states I feel something moving in my vagina. Pt states she has been constipatedfor; Reason: Pain; Clinical Question(s): Constipation; Free Air COMPARISON: 01/02/2024. FINDINGS: Normal bowel gas pattern. No evidence of obstruction. No evidence of pneumoperitoneum. Moderate colonic stool burden. No acute bone findings. IMPRESSION: Nonobstructive bowel gas pattern. Moderate colonic stool burden. WSN: [id number] Ordering Physician: Bebeto Guevara Dictated By: Keenan Jeffrey MD Dictated Date/Time: 05/26/24 1:03 pm Reviewed By: Keenan Jeffrey MD Signed By: Keenan Jeffrey MD Signed Date/Time: 05/26/24 1:03 pm Transcribed By: TOMMY Transcribed Date/Time: 05/26/24 1:02 pm Vital Signs Most recent to oldest [Reference Range]: 1 2 3 Height 163 cm (05/26/24 12:29 PM) 163 cm (05/26/24 10:09 AM) Weight 98.5 kg (05/26/24 12:29 PM) 98.5 kg (05/26/24 10:09 AM) Oxygen Saturation [94-100 %] 100 % (05/26/24 4:56 PM) 100 % (05/26/24 3:45 PM) 98 % (05/26/24 12:29 PM) Pulse Rate [55-90 bpm] 78 bpm (05/26/24 4:56 PM) 85 bpm (05/26/24 3:45 PM) 80 bpm (05/26/24 12:29 PM) Body Mass Index [18.5-24.99 kg/m2] 37.07 kg/m2 *>HHI* (05/26/24 12:29 PM) Blood Pressure [90-138/55-84 mm Hg] 115/94mm Hg (05/26/24 4:56 PM) 125/86mm Hg (05/26/24 3:45 PM) 139/88mm Hg *H* (05/26/24 12:29 PM) Respiratory Rate [16-30 br/min] 18 br/min (05/26/24 4:56 PM) 18 br/min (05/26/24 3:45 PM) 18 br/min (05/26/24 12:29 PM) Temperature [96.8-100.4 DegF] 98.8 DegF (05/26/24 10:09 AM) 98.8 DegF (05/26/24 10:08 AM) Mode of Delivery (Oxygen) Room air (05/26/24 4:56 PM) Room air (05/26/24 3:45 PM) Room air (05/26/24 12:29 PM) Blood pressure sites Arm, left (05/26/24 4:56 PM) Arm, left (05/26/24 3:45 PM) Arm, left (05/26/24 12:29 PM) Temperature Route Oral (05/26/24 10:09 AM) Oral (05/26/24 10:08 AM) Dry Weight 98.5 kg (05/26/24 12:29 PM) 98.5 kg (05/26/24 10:09 AM) Dry Weight Obtained Via Patient/family s tated (05/26/24 10:09 AM) Social History Social History Type Response Smoking Status 5-9 cigarettes (betw een 1/4 to 1/2 pack)/day in last 30 days; Interested in cessation: No; Patient wants NRT during admission Yes; Other: will accept nicotine gum; entered on: 07/14/23 Sex History and physical note * Event Display: History and Physical Hospital Authored Date: [id number] [place], [place] PSYCHIATRIC HISTORY ASSESS EXAM NAME: LORETTA CELESTIN : [birth year] MR#: [id number] PCP: ADMITTED: 12/20/15 DATE OF SERVICE: 12/20/15 HPI - Hosp Psych H P Chief Complaint Pt was sent from [facility] ER here for hallunication History of Present Illness 24 yo AA Female with known schizophrenia was seen at [facility] for hallucination. Apparently pt has been lived in [facility] and sent to [facility] [...] QDAY Haloperidol* (Haldol*) 5 MG PO BID [place] Carbonate SR* (Lithobid*) 300 MG PO QDAY liTHIum Carbonate SR* ([place] Carbonate SR*) 450 MG PO 4PM Discontinued Reported Medications Citalopram* (CeleXA*) 40 MG PO QDAY Benztropine* 0.5 MG PO BID buPROPion SR* 150 MG PO [id number] Trazodone* (Desyrel*) 100 MG PO HS RisperiDONE* [...] 324 MG QDAY 12/20 0900 CKD PO [place] Carbonate 300 MG QDAY 12/20 0900 AC PO Polyethylene Glycol 17 GM QDAY 12/20 0900 CKD PO Benztropine Mesylate 1 MG 0900,0 12/19 1700 AC PO Docusate Sodium 100 MG 0900,1700 12/19 1700 AC PO Haloperidol 5 MG 0900,1700 12/19 1700 AC PO [place] Carbonate 450 MG PM 12/19 1700 AC [...] fullly ambulartory Care Level Complexity of Care F21763 Comprehensive history, comprehensive examination, medical decision making of low complexity, at least 20 minutes at the bedside, patient's floor/ unit. ESigned by: YAS GARZA MD Date:12/21/15 Time:1633 / NOT FOR REDISCLOSURE WITHOUT PATIENT'S INFORMED CONSENT Admission evaluation note * Event Display: Admit Notes Authored Date: [id number] [place], [place] PSYCHIATRIC ADMISSION NOTE NAME: LORETTA CELESTIN : 89 HOSPITAL #: [id number] MR #: [id number] CHART LOC: PCP: DICTATING: MARIA R Robin MD DATE OF ADMISSION: 12/20/15 DATE OF SERVICE: 12/21/15 CHIEF COMPLAINT: This 23-year-old woman was admitted to [facility] at [facility] on [...] is living in a fdc. Came to [place] with her grandmother in [...] year NAME: LORETTA CELESTIN : [birth year] HOSP#: [id number] MR#: [id number] CHART LOC: PCP: DICTATING: MARIA R Robin MD PSYCHIATRIC ADMISSION NOTE CONTINUED: unknown. TREATMENT PLAN: Resume outpatient medications, physical exam, collateral contact with community caregivers and social network, safety plan, aftercare plan and observe. 927 T:sn DD:[id number] TD:0745 DT:20151221 TT:0924 [id number] MICHELLE/SHANNON MARIA R Robin MD ESigned by: Date:12/22/15 Time:642 NOT FOR REDISCLOSURE WITHOUT PATIENT'S INFORMED CONSENT Patient Care team information Care Team Personnel Name: Dean Rivas RN Position: [facility] RN Member Role: Primary Care Nurse Name: Jolanta Ace RN Position: [facility] RN Supv Member Role: Primary Care Nurse Name: Fatoumata Stokes DO Position: [facility] Physician - Primary Care Member Role: PCP Address: Address: [address] [place] [address] Adult [place] [address]- [place] Name: Awilda Grider RN Position: [facility] RN Member Role: Primary Care Nurse Name: Meagan Darden RN Position: [facility] RN Member Role: Primary Care Nurse Name: Chintan Leach DO Position: [facility] Renal MD Member Role: Lifetime Consulting Physician Address: Address: [address] [facility] [address] [facility] [place] [address]- [place] Name: Chandler Ye RN Position: [facility] RN Member Role: Primary Care Nurse Name: Apurva Ji RN Position: [facility] ED RN W/OE and Tasks Member Role: Primary Care Nurse Name: Cordelia Matias RN Position: [facility] AMB Nurse Member Role: Primary Care Nurse Name: Riya Moore RN Position: [facility] RN Member Role: Primary Care Nurse Name: Radha Gutierrez Position: [facility] Outreach Member Role: Primary Care Nurse Name: Keenan Vincent RN Position: [facility] SN RN Member Role: Primary Care Nurse Name: Sasha Patricio RN Position: [facility] RN Member Role: Primary Care Nurse Name: Virgie Angel RN Position: [facility] RN Member Role: Primary Care Nurse Name: Malu Palomo Position: [facility] RN Member Role: Primary Care Nurse Name: Azeb Gusman RN Position: [facility] RN Member Role: Primary Care Nurse Name: Asher Diaz RN Position: [facility] RN Member Role: Primary Care Nurse Name: Kim Cornell RN Position: [facility] RN Member Role: Primary Care Nurse Name: Meredith Martinez RN Position: [facility] RN Member Role: Primary Care Nurse Name: Anika Gotti RN Position: [facility] RN Member Role: Primary Care Nurse Name: Kvng Tompkins RN Position: [facility] MARISABEL RN W/OE and Tasks Member Role: Primary Care Nurse Name: Rafiq Muñoz RN Position: [facility] RN Member Role: Primary Care Nurse Name: Justina Walker RN Position: [facility] RN Member Role: Primary Care Nurse Name: Gwen ROTHMAN, Ivone Position: [facility] RN Member Role: Primary Care Nurse Name: Mazin Penn MD Position: [facility] Physician - Behavioral Health Member Role: Lifetime Consulting Physician Address: Address: [address] [place] [address]- Care Team Related Persons Name: DORITA MCCOLLUM Address: [address] [place] [address] Name: STEW PECK Address: [address] [place] [address] Name: LISA PALMA Address: home [address] [place] [address]
--- OUTSIDE RECORDS SUMMARY | 2024-06-11 16:47 | XMS_ITS | Continuity of Care Document ---
Author Organization [facility] ter Address [address] [place] [address]- Care Team Providers Care Vp Information Technology Name Role Phone Fatoumata Stokes DO Primary Care Physician Encounter [facility] Date(s): 12/21/23 - 03/10/[address] [address] Attending Physician: Basia Rojas Admitting Physician: Basia Rojas Referring Physician: Basia Rojas Allergies, Adverse Reactions, [...] 0 Refills, Maintenance, 02/17/24 9:30:00 EDT, Tablet, [facility], Partial fill upon patient request if [...] Refills, Soft Stop, 12/21/23 15:20:00 EDT, Tablet, [facility], Partial fill upon patient request if [...] 0 Refills, Maintenance, 03/09/24 14:42:00 EDT, Nasal [place], [facility], Partial fill upon patient request if the prescription is for a schedule II opi... Start Date: 03/09/24 Status: Ordered Lidoderm 5% film 1 patch, Topically, Daily, remove patches after 12 hours, # 30 patch, 0 Refills, Maintenance, 03/09/24 14:43:00 EDT, Film, [facility], Partial fill upon patient request if [...] 02/13/24 16:31:00 EDT, Route to Pharmacy Electronically, [facility], 163, cm, 02/11/24 1:23:00 EDT, Height, [...] 0 Refills, Maintenance, 12/23/23 17:55:00 EDT, ECCapsule, [facility], Partial fill upon patient request if [...] Maintenance,07/19/23 13:53:00 EDT, Route to Pharmacy Electronically, [facility], Partial fill upon patient request if the prescription is for a schedule... Start Date: 07/19/23 Stop Date: 08/18/23 Status: Ordered Provera 10 mg oral tablet 10 mg, 1, tablet, By Mouth, Daily, call the office at [phone] if you do not get a menstrual cycle., # 10 tablet, Refills 0, Tot. Refills 0, Maintenance, 12/21/23 15:20:00 EDT, Route to Pharmacy Electronically, [facility], Partial fill u... Start Date: 12/21/23 Stop Date: 12/31/23 Status: Ordered traZODone 50 mg oral tablet 50 mg, 1, tablet, By Mouth, Daily at bedtime, # 30 tablet, Refills 0, Tot. Refills 0, Maintenance, 07/19/23 13:53:00 EDT, Route to Pharmacy Electronically, [facility], Partial fill upon patient request if the prescription is for a schedule I... Start Date: 07/19/23 Stop Date: 08/18/23 Status: Ordered Vitamin C 250 mg oral tablet See Instructions, 1 tablet By Mouth every other day with iron Daily at 9am, # 45 tablet, 11 Refills, Maintenance, 02/17/24 9:32:00 EDT, [facility], 163, cm, 02/17/24 9:01:00 EDT, Height, 96.5, kg, 02/11/24 1:23:00 EDT, Dry Weight Start Date: 02/17/24 Status: Ordered Vitamin C 250 mg oral tablet 1 tablet, By Mouth, Daily in AM, AT 9AM., # 30 tablet, 0 Refills, Maintenance, 02/02/24 15:05:00 EDT, [facility], 163, cm, 01/24/24 9:01:00 EDT, Height, 100.2, kg, 10/17/23 16:02:00 EST, Dry Weight Start Date: 02/02/24 Status: Ordered ZyPREXA 10 mg oral tablet 10 mg, 1, tablet, By Mouth, Daily at bedtime, # 30 tablet, Refills 0, Tot. Refills 0, Maintenance, 07/19/23 13:50:00 EDT, Route to Pharmacy Electronically, [facility], Partial fill upon patient request if [...] Display: History and Physical Hospital Authored Date: [id number] [place], [place] PSYCHIATRIC HISTORY ASSESS EXAM NAME: LORETTA CELESTIN : 89 MR#: [id number] PCP: ADMITTED: 12/20/15 DATE OF SERVICE: 12/20/15 HPI - Hosp Psych H P Chief Complaint Pt was sent from [facility] here for hallunication History of Present Illness 24 yo AA Female with known schizophrenia was seen at [facility] for hallucination. Apparently pt has been lived in fdc and [facility] [...] QDAY Haloperidol* (Haldol*) 5 MG PO BID [place] Carbonate SR* (Lithobid*) 300 MG PO QDAY liTHIum Carbonate SR* ([place] Carbonate SR*) 450 MG PO 4PM Discontinued Reported Medications Citalopram* (CeleXA*) 40 MG PO QDAY Benztropine* 0.5 MG PO BID buPROPion SR* 150 MG PO [id number] Trazodone* (Desyrel*) 100 MG PO HS RisperiDONE* [...] 324 MG QDAY 12/20 0900 CKD PO [place] Carbonate 300 MG QDAY 12/20 0900 AC PO Polyethylene Glycol 17 GM QDAY 12/20 0900 CKD PO Benztropine Mesylate 1 MG 0900,1700 12/19 1700 AC PO Docusate Sodium 100 MG 0900,1700 12/19 1700 AC PO Haloperidol 5 MG 0900,1700 12/19 1700 AC PO [place] Carbonate 450 MG PM 12/19 1700 AC [...] fullly ambulartory Care Level Complexity of Care [id number] Comprehensive history, comprehensive examination, medical decision making of low complexity, at least 20 minutes at the bedside, patient's floor/ unit. ESigned by: YAS GARZA MD Date:12/21/15 Time:1633 / NOT FOR REDISCLOSURE WITHOUT PATIENT'S INFORMED CONSENT Admission evaluation note * Event Display: Admit Notes Authored Date: [id number] [place], [place] PSYCHIATRIC ADMISSION NOTE NAME: LORETTA CELESTIN : 89 HOSPITAL #: [id number] MR #: [id number] CHART LOC: PCP: DICTATING: MARIA R Robin MD DATE OF ADMISSION: 12/20/15 DATE OF SERVICE: 12/21/15 CHIEF COMPLAINT: This 23-year-old woman was admitted to [facility] on 12/20/15 [...] is living in a fdc. Came to [place] with her grandmother in [...] year NAME: LORETTA CELESTIN : 89 HOSP#: [id number] MR#: [id number] CHART LOC: PCP: DICTATING: MARIA R Robin MD PSYCHIATRIC ADMISSION NOTE CONTINUED: unknown. TREATMENT PLAN: Resume outpatient medications, physical exam, collateral contact with community caregivers and social network, safety plan, aftercare plan and observe. 927 T: DD:[id number] TD:0745 DT:[id number] TT:0924 JOB:[id number] MICHELLE/SHANNON MARIA R Robin MD ESigned by: Date:12/22/15 Time:0643 NOT FOR REDISCLOSURE WITHOUT PATIENT'S INFORMED CONSENT Patient Care team information Care Team Personnel Name: Dean Rivas RN Position: [facility] RN Member Role: Primary Care Nurse Name: Jolanta Ace RN Position: [facility] RN Veronica Member Role: Primary Care Nurse Name: Fatoumata Stokes DO Position: [facility] Physician - Primary Care Member Role: PCP Address: Address: [address] [place] [address] Adult [facility] [place] [address]- [place] Name: Awilda Grider RN Position: [facility] RN Member Role: Primary Care Nurse Name: Meagan Darden RN Position: [facility] RN Member Role: Primary Care Nurse Name: Chintan Leach DO Position: [facility] Renal MD Member Role: Lifetime Consulting Physician Address: Address: [address] [place] [address] [address] [facility] [place] [address]- Name: Chandler Ye RN Position: [facility] RN Member Role: Primary Care Nurse Name: Apurva Ji RN Position: [facility] ED RN W/OE and Tasks Member Role: Primary Care Nurse Name: Cordelia Matias RN Position: [facility] AMB Nurse Member Role: Primary Care Nurse Name: Riya Moore RN Position: [facility] RN Member Role: Primary Care Nurse Name: Radha Gutierrez Position: [facility] Outreach Member Role: Primary Care Nurse Name: Keenan Vincent RN Position: [facility] SN RN Member Role: Primary Care Nurse Name: Sasha Patricio RN Position: [facility] RN Member Role: Primary Care Nurse Name: Virgie Angel RN Position: [facility] RN Member Role: Primary Care Nurse Name: Malu Palomo Position: [facility] RN Member Role: Primary Care Nurse Name: Azeb Gusman RN Position: [facility] RN Member Role: Primary Care Nurse Name: Asher Diaz RN Position: [facility] RN Member Role: Primary Care Nurse Name: Kim Cornell RN Position: [facility] RN Member Role: Primary Care Nurse Name: Meredith Martinez RN Position: [facility] RN Member Role: Primary Care Nurse Name: Anika Gotti RN Position: [facility] RN Member Role: Primary Care Nurse Name: Kvng Tompkins RN Position: [facility] ED RN W/OE and Tasks Member Role: Primary Care Nurse Name: Rafiq Muñoz RN Position: [facility] RN Member Role: Primary Care Nurse Name: Justina Walker RN Position: [facility] RN Member Role: Primary Care Nurse Name: Ivone Hidalgo RN Position: [facility] RN Member Role: Primary Care Nurse Name: Mazin Penn MD Position: [facility] Physician - Behavioral Health Member Role: Lifetime Consulting Physician Address: Address: [address] [place] [address]- Care Team Related Persons Name: CHUNDORITA MARINO Address: [address] [place] [address] Name: STEW PECK Address: home [address] [place] [address] Name: LISA PALMA Address: home [address] [place] [address]
--- OUTSIDE RECORDS SUMMARY | 2024-06-11 16:47 | XMS_ITS | Continuity of Care Document ---
Author Organization [facility] ter Address [address] [place] [address]- Care Team Providers Care Franchise Sales Representative Name Role Phone Fatoumata Stokes DO Primary Care Physician Encounter [facility] Date(s): 02/10/24 - 02/11/[address] [address]- Encounter Diagnosis Chest pain(Final) - 02/11/24 Discharge Disposition: A-D/C Home Attending Physician: Roni Edmonds MD Admitting Physician: Roni Edmonds MD Referring Physician: Not on Staff, Referring [...] Refills, Soft Stop, 12/21/23 15:20:00 EDT, Tablet, [facility], Partial fill upon patient request if [...] 0 Refills, Maintenance, 07/05/23 0:27:00 EDT, Nasal [place], Partial fill upon patient request if the [...] 0 Refills, Maintenance, 12/23/23 17:55:00 EDT, ECCapsule, [facility], Partial fill upon patient request if [...] Maintenance,07/19/23 13:53:00 EDT, Route to Pharmacy Electronically, [facility], Partial fill upon patient request if the prescription is for a schedule... Start Date: 07/19/23 Stop Date: 08/18/23 Status: Ordered Provera 10 mg oral tablet 10 mg, 1, tablet, By Mouth, Daily, call the office at [phone] if you do not get a menstrual cycle., # 10 tablet, Refills 0, Tot. Refills 0, Maintenance, 12/21/23 15:20:00 EDT, Route to Pharmacy Electronically, [facility], Partial fill u... Start Date: 12/21/23 Stop Date: 12/31/23 Status: Ordered traZODone 50 mg oral tablet 50 mg, 1, tablet, By Mouth, Daily at bedtime, # 30 tablet, Refills 0, Tot. Refills 0, Maintenance, 07/19/23 13:53:00 EDT, Route to Pharmacy Electronically, [facility], Partial fill upon patient request if the prescription is for a schedule I... Start Date: 07/19/23 Stop Date: 08/18/23 Status: Ordered Vitamin C 250 mg oral tablet 1 tablet, By Mouth, Daily in AM, AT 9AM., # 30 tablet, 0 Refills, Maintenance, 02/02/24 15:05:00 EDT, [facility], 163, cm, 01/24/24 9:01:00 EDT, Height, 100.2, kg, 10/17/23 16:02:00 EST, Dry Weight Start Date: 02/02/24 Status: Ordered ZyPREXA 10 mg oral tablet 10 mg, 1, tablet, By Mouth, Daily at bedtime, # 30 tablet, Refills 0, Tot. Refills 0, Maintenance, 07/19/23 13:50:00 EDT, Route to Pharmacy Electronically, [facility], Partial fill upon patient request if [...] Exam Date Time Procedure Performing Provider Status 02/11/24 12:24 AM Chest 2 Views Frontal and Lat Nova Harrington; Auth (Verified) Notes: (Chest 2 Views Frontal and Lat) Reason For Exam: Angina RESULT: Chest 2 Views Frontal and Lat Chest 2 Views Frontal and Lat Hx of Present Illness: Pt reporting reproducible anterior chest pain ongoing for the past 2 days- denies n v states chornic back pain. eating milky [employer] candies in recliner states she has been taking her medications; Reason: Angina; Clinical Question(s): CHF COMPARISON: 11/07/2023 FINDINGS: LINES AND TUBES: None. LUNGS AND PLEURA: Clear lungs. Normal pulmonary vascularity. No pleural effusion. No pneumothorax. HEART, MEDIASTINUM AND JUANA: Heart is normal in size. Normal mediastinal and hilar contour. BONES AND SOFT TISSUES: No acute abnormality. IMPRESSION: No acute abnormality. WSN: [id number] Ordering Physician: Arianna Diaz Dictated By: Selvin Collier MD Dictated Date/Time: 02/11/24 6:19 am Reviewed By: Selvin Collier MD Signed By: Selvin Collier MD Signed Date/Time: 02/11/24 6:19 am Transcribed By: TOMMY Transcribed Date/Time: 02/11/24 6:19 am Vital Signs Most recent to oldest [Reference Range]: 1 2 Height 163 cm (02/11/24 1:23 AM) 163 cm (02/10/24 7:52 PM) Weight 96.5 kg (02/11/24:23 AM) 96.5 kg (02/10/24 7:52 PM) Oxygen Saturation [94-100 %] 99 % (02/11/24: AM) 100 % (02/10/24 7:52 PM) Pulse Rate [55-90 bpm] 68 bpm (02/11/24:23 AM) 87 bpm (02/10/24 7:52 PM) Body Mass Index [18.5-24.99 kg/m2] 36.32 kg/m2 *>HHI* (02/10/24 7:52 PM) Blood Pressure [90-138/55-84 mm Hg] 132/ 65mm Hg (02/11/24:23 AM) 130/95mm Hg (02/10/24 7:52 PM) Respiratory Rate [16-30 br/min] 16 br/mi n (02/11/24 1:23 AM) 17 br/min (02/10/24 7:52 PM) Temperature [96.8-100.4 DegF] 98.3 DegF (02/10/24 7:52 PM) Mode of Delivery (Oxygen) Room air (02/11/24 1:23 AM) Room air (02/10/24 7:52 PM) Blood pressure sites Arm, left (02/10/24 7:52 PM) Temperature Route Oral (02/10/24 7:52 PM) Dry Weight 96.5 kg (02/11/24 1:23 AM) 96.5 kg (02/10/24 7:52 PM) Weight Obtained Via Standing scale (02/10/24 7:52 PM) Dry Weight Obtained Via Standing scale (02/10/24 7:52 PM) Social History Social History Type Response Smoking Status 5-9 cigarettes (betw een 1/4 to 1/2 pack)/day in last 30 days; Interested in cessation: No; Patient wants NRT during admission Yes; Other: will accept nicotine gum; entered on: 07/14/23 Sex History and physical note * Event Display: History and Physical Hospital Authored Date: [id number] [place], [place] PSYCHIATRIC HISTORY ASSESS EXAM NAME: LORETTA CELESTIN : 89 MR#: [id number] PCP: ADMITTED: 12/20/15 DATE OF SERVICE: 12/20/15 HPI - Hosp Psych H P Chief Complaint Pt was sent from [facility] here for hallunication History of Present Illness 24 yo AA Female with known schizophrenia was seen at [facility] for hallucination. Apparently pt has been lived in longterm and sent to [facility] for acute exacerbation [...] QDAY Haloperidol* (Haldol*) 5 MG PO BID [place] Carbonate SR* (Lithobid*) 300 MG PO QDAY liTHIum Carbonate SR* ([place] Carbonate SR*) 450 MG PO 4PM Discontinued Reported Medications Citalopram* (CeleXA*) 40 MG PO QDAY Benztropine* 0.5 MG PO BID buPROPion SR* 150 MG PO [id number] Trazodone* (Desyrel*) 100 MG PO HS RisperiDONE* [...] 324 MG QDAY 12/20 09 CKD PO [place] Carbonate 300 MG QDAY 12/20 09 AC PO Polyethylene Glycol 17 GM QDAY 12/20 899 CKD PO Benztropine Mesylate 1 MG 0900,12/19 1700 AC PO Docusate Sodium 100 MG 0900,12/19 1700 AC PO Haloperidol 5 MG 0900,12/19 1700 AC PO [place] Carbonate 450 MG PM 12/19 1700 AC [...] fullly ambulartory Care Level Complexity of Care [id number] Comprehensive history, comprehensive examination, medical decision making of low complexity, at least 20 minutes at the bedside, patient's floor/ unit. ESigned by: YAS GARZA MD Date:12/21/15 Time:1633 / NOT FOR REDISCLOSURE WITHOUT PATIENT'S INFORMED CONSENT Admission evaluation note * Event Display: Admit Notes Authored Date: [id number] [place], [place] PSYCHIATRIC ADMISSION NOTE NAME: LORETTA CELESTIN : 89 HOSPITAL #: [id number] MR #: [id number] CHART LOC: PCP: DICTATING: MARIA R Robin MD DATE OF ADMISSION: 12/20/15 DATE OF SERVICE: 12/21/15 CHIEF COMPLAINT: This 23-year-old woman was admitted to [facility] on 12/20/15 on a Conditional [...] is living in a longterm. Came to [place] with her grandmother in [...] year NAME: LORETTA CELESTIN : 89 HOSP#: [id number] MR#: [id number] CHART LOC: PCP: DICTATING: MARIA R Robin MD PSYCHIATRIC ADMISSION NOTE CONTINUED: unknown. TREATMENT PLAN: Resume outpatient medications, physical exam, collateral contact with community caregivers and social network, safety plan, aftercare plan and observe. 927 T:sn DD:[id number] TD:0745 DT:20151221 TT:0924 JOB:[id number] MICHELLE/SHANNON MARIA R Robin MD ESigned by: Date:12/22/15 Time:0643 NOT FOR REDISCLOSURE WITHOUT PATIENT'S INFORMED CONSENT EKG study * Event Display: EKG Authored Date: * Event Display: ECG 12-Lead Authored Date: Please click on pdf link to open report * Event Display: ECG 12-Lead Authored Date: Ventricular Rate: 77 BPM Atrial Rate: 77 BPM P-R Interval: 176 ms QRS Duration: 82 ms Q-T Interval: 388 ms QTC Calculation(Bazett): 439 ms P [place]: 46 degrees R [place]: 38 degrees T [place]: 24 degrees Normal sinus rhythm Normal ECG When compared with ECG of 12-JAN-2024 17:02, No significant change was found Confirmed by TAMRA FARMER MD ([id number]) on 02/11/2024 8:57:00 AM [place]: TAMRA FARMER MD Note * Arianna Chawla: PERFORM Event Display: Patient Education Leaflets Authored Date: [id number] Uncertain Causes of Chest Pain ?? [id number] Uncertain Causes of Chest Pain Chest pain can happen for a number of reasons. Sometimes the cause can't be determined. If your??condition does not seem serious, and your pain does not appear to be coming from your heart, your healthcare provider may recommend watching it closely. Sometimes the signs of a serious problem take more time to appear. Many problems not related to your heart can cause chest pain. These include: ??? Musculoskeletal. Costochondritis is an inflammation of the tissues around the ribs that can occur from trauma or overuse injuries, or a strain of the muscles of the chest wall. ??? Respiratory. Pneumonia, collapsed lung (pneumothorax), or inflammation of the lining of the chest and lungs (pleurisy). ??? Gastrointestinal. Esophageal reflux, heartburn, ulcers, or gallbladder disease. ??? Anxiety and panic disorders ??? Nerve compression and inflammation ??? Rare problems such as aortic aneurysm or aortic dissection (a swelling of the large artery coming out of the heart or a tear in the wall of the artery), or pulmonary embolism (a blood clot in the lungs). Home care After your visit, follow these recommendations: ??? Rest today and avoid strenuous activity. ??? Take any prescribed medicine as directed. ??? Be aware of any recurrent chest pain and notice any changes ?? Follow-up care Follow up with your healthcare provider if you don't start to feel better within 24 hours, or as advised. ?? Call 911 Call 911 if any of these occur: ??? A change in the type of pain: if it feels different, becomes more severe, lasts longer, or begins to spread into your shoulder, arm, neck, jaw or back ??? Shortness of breath or increased pain with breathing ??? Weakness, dizziness, or fainting ??? Rapid heartbeat ??? Crushing sensation in your chest ??? Coughing up more than a small amount of blood. ?? When to seek medical advice Call your healthcare provider right away if any of the following occur: ??? Cough with dark coloredsputum (phlegm) or small amount of blood ??? Fever of 100.4??F??(38??C) or higher, or as directed by your healthcare provider ??? Swelling, pain or redness in one leg ?? Last Reviewed Date: 2021 ?? [id number] [employer]. All rights reserved. This information is not intended as a substitute for professional medical care. Always follow your healthcare professional's instructions. ?? Patient Care team information Care Team Personnel Name: Dean Rivas RN Position: [facility] RN Member Role: Primary Care Nurse Name: Jolanta Ace RN Position: [facility] RN Supv Member Role: Primary Care Nurse Name: Fatoumata Stokes DO Position: [facility] Physician - Primary Care Member Role: PCP Address: Address: [address] [place] [address] Adult [place] [address]- Name: Awilda Grider RN Position: [facility] RN Member Role: Primary Care Nurse Name: Meagan Darden RN Position: [facility] RN Member Role: Primary Care Nurse Name: Chintan Leach DO Position: [facility] Renal MD Member Role: Lifetime Consulting Physician Address: Address: [address] [place], [place] [address] [place] [address]- Name: Chandler Ye RN Position: [facility] RN Member Role: Primary Care Nurse Name: Apurva Ji RN Position: [facility] ED RN W/OE and Tasks Member Role: Primary Care Nurse Name: Cordelia Matias RN Position: [facility] AMB Nurse Member Role: Primary Care Nurse Name: Riya Moore RN Position: [facility] RN Member Role: Primary Care Nurse Name: Radha Gutierrez Position: [facility] Outreach Member Role: Primary Care Nurse Name: Keenan Vincent RN Position: [facility] RN Member Role: Primary Care Nurse Name: Sasha Patricio RN Position: [facility] RN Member Role: Primary Care Nurse Name: Virgie Angel Position: [facility] RN Member Role: Primary Care Nurse Name: Malu Palomo Position: [facility] RN Member Role: Primary Care Nurse Name: Azeb Gusman RN Position: [facility] RN Member Role: Primary Care Nurse Name: Asher Diaz RN Position: [facility] RN Member Role: Primary Care Nurse Name: Kim Cornell RN Position: [facility] RN Member Role: Primary Care Nurse Name: Meredith Martinez RN Position: [facility] RN Member Role: Primary Care Nurse Name: Anika Gotti RN Position: [facility] RN Member Role: Primary Care Nurse Name: Kvng Tompkins RN Position: [facility] ED RN W/OE and Tasks Member Role: Primary Care Nurse Name: Rafiq Muñoz RN Position: [facility] RN Member Role: Primary Care Nurse Name: Justina Walker RN Position: [facility] RN Member Role: Primary Care Nurse Name: Ivone Hidalgo RN Position: [facility] RN Member Role: Primary Care Nurse Name: Mazin Penn MD Position: [facility] Physician - Behavioral Health Member Role: Lifetime Consulting Physician Address: Address: [address] [place] [address]- [place] Care Team Related Persons Name: DORITA MCCOLLUM Address: [address] [place] [address] Name: STEW PECK Address: [address] [place] [address] Name: LISA PALMA Address: [address] [place] [address]
--- OUTSIDE RECORDS SUMMARY | 2024-06-11 16:47 | XMS_ITS | Continuity of Care Document ---
Author Organization [facility] Address [address] [place] [address]- Care Team Providers Care Shuttle Driver Name Role Phone Fatoumata Stokes DO Primary Care Physician [facility]23 - 01/04/24 [facility] [address] [place], [place] [address] [place] Allergies, Adverse Reactions, Alerts Substance Reaction Severity [...] Refills, Soft Stop, 12/21/23 15:20:00 EDT, Tablet, [facility], Partial fill upon patient request if [...] 0 Refills, Maintenance, 07/05/23 0:27:00 EDT, Nasal [place], Partial fill upon patient request if the [...] 0 Refills, Maintenance, 12/23/23 17:55:00 EDT, ECCapsule, [facility], Partial fill upon patient request if [...] Maintenance,07/19/23 13:53:00 EDT, Route to Pharmacy Electronically, [facility], Partial fill upon patient request if the prescription is for a schedule... Start Date: 07/19/23 Stop Date: 08/18/23 Status: Ordered Provera 10 mg oral tablet 10 mg, 1, tablet, By Mouth, Daily, call the office at [phone] if you do not get a menstrual [...] Display: History and Physical Hospital Authored Date: [id number] [place], [place] PSYCHIATRIC HISTORY ASSESS EXAM NAME: LORETTA CELESTIN : [birth year] MR#: [id number] PCP: ADMITTED: 12/20/15 DATE OF SERVICE: 12/20/15 HPI - Hosp Psych H P Chief Complaint Pt was sent from [facility] here for hallunication History of Present Illness 24 yo AA Female with known schizophrenia was seen at [facility] ER for hallucination. Apparently pt has been lived in penitentiary and sent to [facility] for acute exacerbation [...] QDAY Haloperidol* (Haldol*) 5 MG PO BID Vici Carbonate SR* (Lithobid*) 300 MG PO QDAY liTHIum Carbonate SR* (Vici Carbonate SR*) 450 MG PO 4PM Discontinued Reported Medications Citalopram* (CeleXA*) 40 MG PO QDAY Benztropine* 0.5 MG PO BID buPROPion SR* 150 MG PO [id number] Trazodone* (Desyrel*) 100 MG PO HS RisperiDONE* [...] 324 MG QDAY 12/20 0900 CKD PO Vici Carbonate 300 MG QDAY 12/20 0900 AC PO Polyethylene Glycol 17 GM QDAY 12/20 0900 CKD PO Benztropine Mesylate 1 MG 0900,1700 12/19 1700 AC PO Docusate Sodium 100 MG 0900,1700 12/19 1700 AC PO Haloperidol 5 MG 0900,17012/19 1700 AC PO Vici Carbonate 450 MG PM 12/19 1700 AC [...] fullly ambulartory Care Level Complexity of Care [id number] Comprehensive history, comprehensive examination, medical decision making of low complexity, at least 20 minutes at the bedside, patient's floor/ unit. ESigned by: YAS GARZA MD Date:12/21/15 Time:1633 / NOT FOR REDISCLOSURE WITHOUT PATIENT'S INFORMED CONSENT Admission evaluation note * Event Display: Admit Notes Authored Date: [id number] [place], [place] PSYCHIATRIC ADMISSION NOTE NAME: LORETTA CELESTIN : 89 HOSPITAL #: [id number] MR #: [id number] CHART LOC: PCP: DICTATING: MARIA R Robin MD DATE OF ADMISSION: 12/20/15 DATE OF SERVICE: 12/21/15 CHIEF COMPLAINT: This 23-year-old woman was admitted to [facility] on 12/20/15 on a Conditional Voluntary application because of suicidal ideation. HISTORY OF PRESENT ILLNESS: The patient has been treated for schizoaffective disorder depressed type, posttraumatic stress disorder, intellectual disability and alcohol syndrome with multiple hospitalizations for self-harming behavior and suicidal ideation. She presented to Crisis Services from her penitentiary reporting that she was having urges to [...] how they had evolved. Staff at the penitentiary where she lives reported her as unusually [...] HISTORY: The patient is living in a penitentiary. Came to [place] with her grandmother in 2013, was very [...] year NAME: LORETTA CELESTIN : 89 HOSP#: [id number] MR#: [id number] CHART LOC: PCP: DICTATING: MARIA R Robin MD PSYCHIATRIC ADMISSION NOTE CONTINUED: unknown. TREATMENT PLAN: Resume outpatient medications, physical exam, collateral contact with community caregivers and social network, safety plan, aftercare plan and observe. 927 T:sn DD:[id number] TD:0745 DT:20151221 TT:0924 JOB:[id number] TORIE MARIA R Robin MD ESigned by: Date:12/22/15 Time:06 NOT FOR REDISCLOSURE WITHOUT PATIENT'S INFORMED CONSENT Patient Care team information Care Team Personnel Name: Dean Rivas RN Position: [facility] RN Member Role: Primary Care Nurse Name: Jolanta Ace RN Position: [facility] RN Supv Member Role: Primary Care Nurse Name: Fatoumata Stokes DO Position: [facility] Physician - Primary Care Member Role: PCP Address: Address: [address] [place] [address] Adult [place] [address]- Name: Awilda Grider RN Position: [facility] RN Member Role: Primary Care Nurse Name: Meagan Darden RN Position: [facility] RN Member Role: Primary Care Nurse Name: Chintan Leach DO Position: [facility] Renal MD Member Role: Lifetime Consulting Physician Address: Address: [address] [place], [place] [address] [place] [address]- Name: Chandler Ye RN Position: [facility] RN Member Role: Primary Care Nurse Name: Apurva Ji RN Position: [facility] ED RN W/OE and Tasks Member Role: Primary Care Nurse Name: Cordelia Matias RN Position: [facility] AMB Nurse Member Role: Primary Care Nurse Name: Riya Moore RN Position: [facility] RN Member Role: Primary Care Nurse Name: Radha Gutierrez Position: [facility] Outreach Member Role: Primary Care Nurse Name: Keenan Vincent RN Position: [facility] SN RN Member Role: Primary Care Nurse Name: Sasha Patricio RN Position: [facility] RN Member Role: Primary Care Nurse Name: Virgie Angel Position: [facility] RN Member Role: Primary Care Nurse Name: Malu Palomo Position: [facility] RN Member Role: Primary Care Nurse Name: Azeb Gusman RN Position: [facility] RN Member Role: Primary Care Nurse Name: Asher Diaz RN Position: [facility] RN Member Role: Primary Care Nurse Name: Kim Cornell RN Position: [facility] RN Member Role: Primary Care Nurse Name: Meredith Martinez RN Position: [facility] RN Member Role: Primary Care Nurse Name: Anika Gotti RN Position: [facility] RN Member Role: Primary Care Nurse Name: Kvng Tompkins RN Position: [facility] ED RN W/OE and Tasks Member Role: Primary Care Nurse Name: Rafiq Muñoz RN Position: [facility] RN Member Role: Primary Care Nurse Name: Justina Walker RN Position: [facility] RN Member Role: Primary Care Nurse Name: Ivone Hidalgo RN Position: [facility] RN Member Role: Primary Care Nurse Name: Mazin Penn MD Position: [facility] Physician - Behavioral Health Member Role: Lifetime Consulting Physician Address: Address: [address] [place] [address]- [place] Care Team Related Persons Name: CHUNDORITA Address: [address] [place] [address] Name: STEW PECK Address: home [address] [place] [address] Name: LISA PALMA Address: home [address] [place] [address]
--- OUTSIDE RECORDS SUMMARY | 2024-06-11 16:48 | XMS_ITS | Continuity of Care Document ---
Author Organization [facility] Address [address] [place] [address]- Care Team Providers Care Business Unit Manager Name Role Phone Fatoumata Stokes DO Primary Care Physician [facility]): [facility]24 - 05/19/24 [facility] [address] [place], [place] [address] Att[facility] Physician: Fatoumata Stokes DO Allergies, Adverse [...] 0 Refills, Maintenance, 02/17/24 9:30:00 EDT, Tablet, [facility], Partial fill upon patient request if [...] Refills, Soft Stop, 04/09/24 12:02:00 EDT, Tablet, [facility], Partial fill upon patient request if [...] 0 Refills, Maintenance, 03/09/24 14:42:00 EDT, Nasal [place], [facility], Partial fill upon patient request if the prescription is for a schedule II opi... Start Date: 03/09/24 Status: Ordered lidocaine 5% topical film 1 patch, Topically, Daily, INSTR:REMOVE PATCHES AFTER 12 HOURS, # 30 each, 0 Refills, Maintenance, 04/26/24 17:29:00 EDT, [facility], 30, APPLY 1 PATCH TOPICALLY DAILY,INSTR:REMOVE [...] Replace Required Details, Route to Pharmacy Electronically, [facility], 163, cm, 04/09/24 11:20:00 EDT, Height, [...] 0 Refills, Maintenance, 04/25/24 10:05:00 EDT, ECCapsule, [facility], Partial fill upon patient request if [...] By Mouth, Daily, call the office at [phone] if you do not get a menstrual cycle., # 10 tablet, Refills 0, Tot. Refills 0, Maintenance, 12/21/23 15:20:00 EDT, Route to Pharmacy Electronically, [facility], Partial fill u... Start Date: [...] tablet, 11 Refills, Maintenance, 02/17/24 9:32:00 EDT, [facility], 163, cm, 02/17/24 9:01:00 EDT, Height, [...] Display: History and Physical Hospital Authored Date: [id number] [place], [place] PSYCHIATRIC HISTORY ASSESS EXAM NAME: LORETTA CELESTIN : [birth year] MR#: [id number] PCP: ADMITTED: 12/20/15 DATE OF SERVICE: 12/20/15 HPI - Hosp Psych H P Chief Complaint Pt was [place] [facility] here for hallunication History of Present Illness 24 yo AA Female with known schizophrenia was seen at [facility] for hallucination. Apparently pt has been lived in fdc and sent to [facility] for acute exacerbation of her underline schizophrenia. [...] QDAY Haloperidol* (Haldol*) 5 MG PO BID Ideal Carbonate SR* (Lithobid*) 300 MG PO QDAY liTHIum Carbonate SR* (Ideal Carbonate SR*) 450 MG PO 4PM Discontinued Reported Medications Citalopram* (CeleXA*) 40 MG PO QDAY Benztropine* 0.5 MG PO BID buPROPion SR* 150 MG PO [id number] Trazodone* (Desyrel*) 100 MG PO HS RisperiDONE* [...] 324 MG QDAY 12/20 0900 CKD PO Ideal Carbonate 300 MG QDAY 12/20 0900 AC PO Polyethylene Glycol 17 GM QDAY 12/20 0900 CKD PO Benztropine Mesylate 1 MG 0900,0 12/19 1700 AC PO Docusate Sodium 100 MG 0900,1700 12/19 1700 AC PO Haloperidol 5 MG 0900,1700 12/19 1700 AC PO Ideal Carbonate 450 MG PM 12/19 1700 AC [...] fullly ambulartory Care Level Complexity of Care [id number] Comprehensive history, comprehensive examination, medical decision making of low complexity, at least 20 minutes at the bedside, patient's floor/ unit. ESigned by: YAS GARZA MD Date:12/21/15 Time:1633 / NOT FOR REDISCLOSURE WITHOUT PATIENT'S INFORMED CONSENT Admission evaluation note * Event Display: Admit Notes Authored Date: [id number] [place], [place] PSYCHIATRIC ADMISSION NOTE NAME: LORETTA CELESTIN : 89 HOSPITAL #: [id number] MR #: [id number] CHART LOC: PCP: DICTATING: MARIA R Robin MD DATE OF ADMISSION: 12/20/15 DATE OF SERVICE: 12/21/15 CHIEF COMPLAINT: This 23-year-old woman was admitted to [facility] on 12/20/15 on [...] is living in a fdc. Came to [place] with her grandmother in [...] year NAME: LORETTA CELESTIN : 89 HOSP#: [id number] MR#: [id number] CHART LOC: PCP: DICTATING: MARIA R Robin MD PSYCHIATRIC ADMISSION NOTE CONTINUED: unknown. TREATMENT PLAN: Resume outpatient medications, physical exam, collateral contact with community caregivers and social network, safety plan, aftercare plan and observe. 927 T:sn DD:[id number] TD:0745 DT:20151221 TT:0924 JOB:[id number] MICHELLE/SHANNON MARIA R Robin MD ESigned by: Date:12/22/15 Time:642 NOT FOR REDISCLOSURE WITHOUT PATIENT'S INFORMED CONSENT Patient Care team information Care Team Personnel Name: Dean Rivas RN Position: [facility] RN Member Role: Primary Care Nurse Name: Jolanta Ace RN Position: [facility] RN Supv Member Role: Primary Care Nurse Name: Fatoumata Stokes DO Position: [facility] Physician - Primary Care Member Role: PCP Address: Address: [address] [place] [address] Adult [place] [address]- [place] Name: Awilda Grider RN Position: [facility] RN Member Role: Primary Care Nurse Name: Meagan Darden RN Position: [facility] RN Member Role: Primary Care Nurse Name: Chintan Leach DO Position: [facility] Renal MD Member Role: Lifetime Consulting Physician Address: Address: [address] [place], [place] [address] [place] [address]- Name: Chandler Ye RN Position: [facility] RN Member Role: Primary Care Nurse Name: Apurva Ji RN Position: [facility] ED RN W/OE and Tasks Member Role: Primary Care Nurse Name: Cordelia Matias RN Position: [facility] AMB Nurse Member Role: Primary Care Nurse Name: Riya Moore RN Position: [facility] RN Member Role: Primary Care Nurse Name: Radha Gutierrez Position: [facility] Outreach Member Role: Primary Care Nurse Name: Keenan Vincent RN Position: [facility] SN RN Member Role: Primary Care Nurse Name: Sasha Patricio RN Position: [facility] RN Member Role: Primary Care Nurse Name: Virgie Angel RN Position: [facility] RN Member Role: Primary Care Nurse Name: Malu Palomo Position: [facility] RN Member Role: Primary Care Nurse Name: Azeb Gusman RN Position: [facility] RN Member Role: Primary Care Nurse Name: Asher Diaz RN Position: [facility] RN Member Role: Primary Care Nurse Name: Kim Cornell RN Position: [facility] RN Member Role: Primary Care Nurse Name: Meredith Martinez RN Position: [facility] RN Member Role: Primary Care Nurse Name: Anika Gotti RN Position: [facility] RN Member Role: Primary Care Nurse Name: Kvng Tompkins RN Position: [facility] ED RN W/OE and Tasks Member Role: Primary Care Nurse Name: Rafiq Muñoz RN Position: S RN Member Role: Primary Care Nurse Name: Justina Walker RN Position: [facility] RN Member Role: Primary Care Nurse Name: Ivone Hidalgo RN Position: [facility] RN Member Role: Primary Care Nurse Name: Mazin Penn MD Position: [facility] Physician - Behavioral Health Member Role: Lifetime Consulting Physician Address: Address: [address] [place] [address]- [place] Care Team Related Persons Name: DORITA MCCOLLUM Address: [address] [place] [address] Name: STEW PECK Address: home [address] [place] [address] Name: LISA PALMA Address: [address] [place] [address]
--- OUTSIDE RECORDS SUMMARY | 2024-06-11 16:48 | XMS_ITS | Continuity of Care Document ---
Author Organization [facility] Address [address], [address] [place] [address]- Care Team Providers Care Gas Or Petroleum Operator Name Role Phone Fatoumata Stokes DO Primary Care Physician [facility]23 [facility] [address] [place] [address]- Allergies, Adverse Reactions, Alerts Substance Reaction Severity [...] Refills, Soft Stop, 12/21/23 15:20:00 EDT, Tablet, [facility], Partial fill upon patient request if [...] 0 Refills, Maintenance, 07/05/23 0:27:00 EDT, Nasal [place], Partial fill upon patient request if the [...] 0 Refills, Maintenance, 12/23/23 17:55:00 EDT, ECCapsule, [facility], Partial fill upon patient request if [...] Maintenance,07/19/23 13:53:00 EDT, Route to Pharmacy Electronically, [facility], Partial fill upon patient request if the prescription is for a schedule... Start Date: 07/19/23 Stop Date: 08/18/23 Status: Ordered Provera 10 mg oral tablet 10 mg, 1, tablet, By Mouth, Daily, call the office at [phone] if you do not get a menstrual cycle., # 10 tablet, Refills 0, Tot. Refills 0, Maintenance, 12/21/23 15:20:00 EDT, Route to Pharmacy Electronically, [facility], Partial fill u... Start Date: 12/21/23 Stop Date: 12/31/23 Status: Ordered traZODone 50 mg oral tablet 50 mg, 1, tablet, By Mouth, Daily at bedtime, # 30 tablet, Refills 0, Tot. Refills 0, Maintenance, 07/19/23 13:53:00 EDT, Route to Pharmacy Electronically, [facility], Partial fill upon patient [...] 07/19/23 13:50:00 EDT, Route to Pharmacy Electronically, [facility], Partial fill upon patient request if [...] Display: History and Physical Hospital Authored Date: [id number] [place], [place] PSYCHIATRIC HISTORY ASSESS EXAM NAME: LORETTA CELESTIN : [birth year] MR#: [id number] PCP: ADMITTED: 12/20/15 DATE OF SERVICE: 12/20/15 HPI - Hosp Psych H P Chief Complaint Pt was sent from [facility] here for hallunication History of Present Illness 24 yo AA Female with known schizophrenia was seen at [facility] for hallucination. Apparently pt has been lived in detention and sent to [facility] for acute exacerbation of her underline schizophrenia. [...] QDAY Haloperidol* (Haldol*) 5 MG PO BID Fonda Carbonate SR* (Lithobid*) 300 MG PO QDAY liTHIum Carbonate SR* (Fonda Carbonate SR*) 450 MG PO 4PM Discontinued Reported Medications Citalopram* (CeleXA*) 40 MG PO QDAY Benztropine* 0.5 MG PO BID buPROPion SR* 150 MG PO [id number] Trazodone* (Desyrel*) 100 MG PO HS RisperiDONE* [...] 324 MG QDAY 12/20 0900 CKD PO Fonda Carbonate 300 MG QDAY 12/20 0900 AC PO Polyethylene Glycol 17 GM QDAY 12/20 0900 CKD PO Benztropine Mesylate 1 MG 0900,1700 12/19 1700 AC PO Docusate Sodium 100 MG 0900,12/19 1700 AC PO Haloperidol 5 MG 0900,12/19 1700 AC PO Fonda Carbonate 450 MG PM 12/19 1700 AC [...] fullly ambulartory Care Level Complexity of Care [id number] Comprehensive history, comprehensive examination, medical decision making of low complexity, at least 20 minutes at the bedside, patient's floor/ unit. ESigned by: YAS GARZA MD Date:12/21/15 Time:1633 / NOT FOR REDISCLOSURE WITHOUT PATIENT'S INFORMED CONSENT Admission evaluation note * Event Display: Admit Notes Authored Date: [place], [place] PSYCHIATRIC ADMISSION NOTE NAME: LORETTA CELESTIN : 89 HOSPITAL #: [id number] MR #: [id number] CHART LOC: PCP: DICTATING: MARIA R Robin MD DATE OF ADMISSION: 12/20/15 DATE OF SERVICE: 12/21/15 CHIEF COMPLAINT: This 23-year-old woman was admitted to [facility] on 12/20/15 on a [...] is living in a detention. Came to [place] with her grandmother in 2013, was very [...] year NAME: LORETTA CELESTIN : 89 HOSP#: [id number] MR#: [id number] CHART LOC: PCP: DICTATING: MARIA R Robin MD PSYCHIATRIC ADMISSION NOTE CONTINUED: unknown. TREATMENT PLAN: Resume outpatient medications, physical exam, collateral contact with community caregivers and social network, safety plan, aftercare plan and observe. 927 T: DD:[id number] TD:0745 DT:[id number] TT:0924 JOB:[id number] TORIE MARIA R Robin MD ESigned by: Date:12/22/15 Time:0643 NOT FOR REDISCLOSURE WITHOUT PATIENT'S INFORMED CONSENT Patient Care team information Care Team Personnel Name: Dean Rivas RN Position: [facility] RN Member Role: Primary Care Nurse Name: Jolanta Ace RN Position: [facility] RN Supv Member Role: Primary Care Nurse Name: Fatoumata Stokes DO Position: [facility] Physician - Primary Care Member Role: PCP Address: Address: [address] [place] [address] Adult & [place] [address]- Name: Awilda Grider RN Position: [facility] RN Member Role: Primary Care Nurse Name: Meagan Darden RN Position: [facility] RN Member Role: Primary Care Nurse Name: Chintan Leach DO Position: [facility] Renal MD Member Role: Lifetime Consulting Physician Address: Address: [address] [place] [address] [place] [address]- Name: Chandler Ye RN Position: [facility] RN Member Role: Primary Care Nurse Name: Apurva Ji RN Position: [facility] ED RN W/OE and Tasks Member Role: Primary Care Nurse Name: Cordelia Matias RN Position: [facility] AMB Nurse Member Role: Primary Care Nurse Name: Riya Moore RN Position: [facility] RN Member Role: Primary Care Nurse Name: Radha Gutierrez Position: [facility] Outreach Member Role: Primary Care Nurse Name: Keenan Vincent RN Position: [facility] SN RN Member Role: Primary Care Nurse Name: Sasha Patricio RN Position: [facility] RN Member Role: Primary Care Nurse Name: Virgie Angel Position: [facility] RN Member Role: Primary Care Nurse Name: Malu Palomo Position: [facility] RN Member Role: Primary Care Nurse Name: Azeb Gusman RN Position: [facility] RN Member Role: Primary Care Nurse Name: Asher Diaz RN Position: [facility] RN Member Role: Primary Care Nurse Name: Kim Cornell RN Position: [facility] RN Member Role: Primary Care Nurse Name: Meredith Martinez RN Position: [facility] RN Member Role: Primary Care Nurse Name: Anika Gotti RN Position: [facility] RN Member Role: Primary Care Nurse Name: Kvng Tompkins RN Position: [facility] ED RN W/OE and Tasks Member Role: Primary Care Nurse Name: Rafiq Muñoz RN Position: [facility] RN Member Role: Primary Care Nurse Name: Justina Walker RN Position: [facility] RN Member Role: Primary Care Nurse Name: Ivone Hidalgo RN Position: [facility] RN Member Role: Primary Care Nurse Name: Mazin Penn MD Position: [facility] Physician - Behavioral Health Member Role: Lifetime Consulting Physician Address: Address: [address] [place] [address]- [place] Care Team Related Persons Name: MICK MCCOLLUMTRA Address: [address] [place] [address] Name: STEW PECK Address: [address] [place] [address] Name: LISA PALMA Address: [address] [place] [address]
--- OUTSIDE RECORDS SUMMARY | 2024-06-11 16:48 | XMS_ITS | Continuity of Care Document ---
Author Organization [facility] ter Address [address] [place] [address]- Care Team Providers Care Anime Designer Name Role Phone Fatoumata Stokes DO Primary Care Physician Encounter [facility] Date(s): 06/06/24 - 06/07/[address] [address]- Discharge Disposition: A-D/C Home Attending Physician: Javier Velazquez MD Admitting Physician: Javier Velazquez MD Referring Physician: Not on Staff, Referring [...] 5 Medications acetaminophen 500 mg oral tablet 1 tablet, By Mouth, Every 8 hours, PRN NEEDED FOR PAIN, # 90 tablet, 0 Refills, Maintenance, 05/30/24 15:01:00 EDT, [facility], 163, cm, 05/26/24 12:29:00 EDT, Height, 98.5, kg, 05/26/2412:29:00 EDT, Dry Weight Start Date: 05/30/24 Status: Ordered benztropine 1 mg oral tablet [...] Refills, Soft Stop, 04/09/24 12:02:00 EDT, Tablet, [facility], Partial fill upon patient request if [...] absorption at 9am, # 45 tablet, Refills 4, Tot. Refills 4, Maintenance, 05/31/24 14:19:00 EDT, Instructions Replace Required Details, Route to Pharmacy Electronica... Start Date: 05/31/24 Status: Ordered fluticasone 50 mcg/inh nasal spray 1 sprays = 50 mcg, Nares, Both, 2 times a day, PRN Other, nasal allergy symptoms, # 16 Gm, 0 Refills, Maintenance, 03/09/24 14:42:00 EDT, Nasal [place], [facility], Partial fill upon patient request if the prescription is for a schedule II opi... Start Date: 03/09/24 Status: Ordered lidocaine 5% topical film 1 patch, Topically, Daily, INSTR:REMOVE PATCHES AFTER 12 HOURS, # 30 each, 0 Refills, Maintenance, 04/26/24 17:29:00 EDT, [facility], 30, APPLY 1 PATCH TOPICALLY DAILY,INSTR:REMOVE [...] Replace Required Details, Route to Pharmacy Electronically, [facility], 163, cm, 05/22/24 10:33:00 EDT, Height, [...] 0 Refills, Maintenance, 04/25/24 10:05:00 EDT, ECCapsule, [facility], Partial fill upon patient request if [...] Maintenance,07/19/23 13:53:00 EDT, Route to Pharmacy Electronically, [facility], Partial fill upon patient request if the prescription is for a schedule... Start Date: 07/19/23 Stop Date: 08/18/23 Status: Ordered Provera 10 mg oral tablet 10 mg, 1, tablet, By Mouth, Daily, call the office at [phone] if you do not get a menstrual cycle., # 10 tablet, Refills 0, Tot. Refills 0, Maintenance, 12/21/23 15:20:00 EDT, Route to Pharmacy Electronically, [facility], Partial fill u... Start Date: 12/21/23 Stop Date: 12/31/23 Status: Ordered Stool Softener with Laxative 50 mg-8.6 mg oral tablet 1 tablet, By Mouth, Daily at bedtime, # 30 tablet, 5 Refills, Maintenance, 05/31/24 14:20:00 EDT, [facility], Partial fill upon patient request if the prescription is for a schedule II opioid drug., 1 tablet By Mouth Daily at bedtime,x30 day... Start Date: 05/31/24 Stop Date: 11/27/24 Status: Ordered traZODone 50 mg oral tablet 50 mg, 1, tablet, By Mouth, Daily at bedtime, # 30 tablet, Refills 0, Tot. Refills 0, Maintenance, 07/19/23 13:53:00 EDT, Route to Pharmacy Electronically, [facility], Partial fill upon patient request if the prescription is for a schedule I... Start Date: 07/19/23 Stop Date: 08/18/23 Status: Ordered Vitamin C 250 mg oral tablet See Instructions, 1 tablet By Mouth every other day with iron Daily at 9am, # 45 tablet, 11 Refills, Maintenance, 02/17/24 9:32:00 EDT, [facility], 163, cm, 02/17/24 9:01:00 EDT, Height, 96.5, kg, 02/11/24 1:23:00 EDT, Dry Weight Start Date: 02/17/24 Status: Ordered Vitamin C 250 mg oral tablet 1 tablet, By Mouth, Daily in AM, AT 9AM., # 30 tablet, 0 Refills, Maintenance, 02/02/24 15:05:00 EDT, [facility], 163, cm, 01/24/24 9:01:00 EDT, Height, 100.2, kg, 10/17/23 16:02:00 EST, Dry Weight Start Date: 02/02/24 Status: Ordered ZyPREXA 10 mg oral tablet 10 mg, 1, tablet, By Mouth, Daily at bedtime, # 30 tablet, Refills 0, Tot. Refills 0, Maintenance, 07/19/23 13:50:00 EDT, Route to Pharmacy Electronically, [facility], Partial fill upon patient request if [...] oldest [Reference Range]: 1 2 3 Height 167 cm (06/07/24 6:34 AM) 167 cm (06/07/24 12:46 AM) 167 cm (06/06/24 6:55 PM) Weight 99 kg (06/07/24 6:34 AM) 99 kg (06/07/24 12:46 AM) 99 kg (06/06/24 6:55 PM) Oxygen Saturation [94-100 %] 100 % (06/07/24 6:34 AM) 98 % (06/07/24 12:46 AM) 100 % (06/06/24 6:55 PM) Pulse Rate [55-90 bpm] 71 bpm (06/07/24 6:34 AM) 63 bpm (06/07/24 12:46 AM) 82 bpm (06/06/24 6:55 PM) Body Mass Index [18.5-24.99 kg/m2] 35.5 kg/m2 *>HHI* (06/07/24 6:34 AM) 35.5 kg/m2 *>HHI* (06/07/24 12:46 AM) Blood Pressure [90-138/55-84 mm Hg] 117/78mm Hg (06/07/24 6:34 AM) 102/77mm Hg (06/07/24 12:46 AM) 128/92mm Hg (06/06/24 6:55 PM) Respiratory Rate [16-30 br/min] 20 br/min (06/07/24 6:34 AM) 20 br/min (06/07/24 12:46 AM) 16 br/min (06/06/24 6:55 PM) Temperature [96.8-100.4 DegF] 98.1 DegF (06/07/24 6:34 AM) 98.1 DegF (06/07/24 12:46 AM) 98.4 DegF (06/06/24 6:55 PM) Mode of Delivery (Oxygen) Room air (06/07/24 6:34 AM) Room air (06/07/24 12:46 AM) Room air (06/06/24 6:55 PM) Blood pressure sites Arm, right (06/07/24 6:34 AM) Arm, right (06/07/24 12:46 AM) Temperature Route Oral (06/07/24 6:34 AM) Oral (06/07/24 12:46 AM) Oral (06/06/24 6:55 PM) Dry Weight 99 kg (06/07/24 6:34 AM) 99 kg (06/07/24 12:46 AM) 99 kg (06/06/24 6:55 PM) Social History Social History Type Response Smoking Status 5-9 cigarettes (betw een 1/4 to 1/2 pack)/day in last 30 days; Interested in cessation: No; Patient wants NRT during admission Yes; Other: will accept nicotine gum; entered on: 07/14/23 Sex Female History and physical note * Event Display: History and Physical Hospital Authored Date: [id number] [place], [place] PSYCHIATRIC HISTORY ASSESS EXAM NAME: LORETTA CELESTIN : 89 MR#: [id number] PCP: ADMITTED: 12/20/15 DATE OF SERVICE: 12/20/15 HPI - Hosp Psych H P Chief Complaint Pt was sent from [facility] ER here for hallunication History of Present Illness 24 yo AA Female with known schizophrenia was seen at [facility] ER for hallucination. Apparently pt has been lived in usp and sent to [facility] for acute exacerbation of her [...] QDAY Haloperidol* (Haldol*) 5 MG PO BID [place] Carbonate SR* (Lithobid*) 300 MG PO QDAY liTHIum Carbonate SR* ([place] Carbonate SR*) 450 MG PO 4PM Discontinued Reported Medications Citalopram* (CeleXA*) 40 MG PO QDAY Benztropine* 0.5 MG PO BID buPROPion SR* 150 MG PO [id number] Trazodone* (Desyrel*) 100 MG PO HS RisperiDONE* [...] 324 MG QDAY 12/20 899 CKD PO [place] Carbonate 300 MG QDAY 12/20 899 AC PO Polyethylene Glycol 17 GM QDAY 12/20 899 CKD PO Benztropine Mesylate 1 MG 09,12/19 1700 AC PO Docusate Sodium 100 MG 0900,12/19 1700 AC PO Haloperidol 5 MG 0900,12/19 1700 AC PO [place] Carbonate 450 MG PM 12/19 1700 AC [...] fullly ambulartory Care Level Complexity of Care [id number] Comprehensive history, comprehensive examination, medical decision making of low complexity, at least 20 minutes at the bedside, patient's floor/ unit. ESigned by: YAS GARZA MD Date:12/21/15 Time:1633 / NOT FOR REDISCLOSURE WITHOUT PATIENT'S INFORMED CONSENT Admission evaluation note * Event Display: Admit Notes Authored Date: [id number] [place], [place] PSYCHIATRIC ADMISSION NOTE NAME: LORETTA CELESTIN : 89 HOSPITAL #: [id number] MR #: [id number] CHART LOC: PCP: DICTATING: MARIA R Robin MD DATE OF ADMISSION: 12/20/15 DATE OF SERVICE: 12/21/15 CHIEF COMPLAINT: This 23-year-old woman was admitted to [facility] on 12/20/15 on a Conditional Voluntary [...] is living in a usp. Came to [place] with her grandmother in [...] year NAME: LORETTA CELESTIN : 89 HOSP#: [id number] MR#: [id number] CHART LOC: PCP: DICTATING: MARIA R Robin MD PSYCHIATRIC ADMISSION NOTE CONTINUED: unknown. TREATMENT PLAN: Resume outpatient medications, physical exam, collateral contact with community caregivers and social network, safety plan, aftercare plan and observe. 927 T:sn DD:[id number] TD:0745 DT:[id number] TT:0924 JOB:[id number] MICHELLE/SHANNON MARIA R Robin MD ESigned by: Date:12/22/15 Time:06 NOT FOR REDISCLOSURE WITHOUT PATIENT'S INFORMED CONSENT EKG study * Event Display: EKG Authored Date: * Event Display: ECG 12-Lead Authored Date: Please click on pdf link to open report * Event Display: ECG 12-Lead Authored Date: Ventricular Rate: 72 BPM Atrial Rate: 72 BPM P-R Interval: 182 ms QRS Duration: 86 ms Q-T Interval: 412 ms QTC Calculation(Bazett): 451 ms P [place]field: 43 degrees R [place]: 48 degrees T [place]: 18 degrees Normal sinus rhythm Nonspecific T wave abnormality Abnormal ECG When compared with ECG of 16-APR-2024 17:05, No significant change was found Confirmed by SOPHIA WESLEY ([id number]) on 06/07/2024 5:58:07 PM [place]: SOPHIA WESLEY Patient Care team information Care Team Personnel Name: Dean Rivas RN Position: [facility] RN Member Role: Primary Care Nurse Name: Jolanta Ace RN Position: [facility] [place] Supv Member Role: Primary Care Nurse Name: Fatoumata Stokes DO Position: [facility] Physician - Primary Care Member Role: PCP Address: Address: [address] [place] [address] Adult & Pediatric Medicine [address] Name: Awilda Grider RN Position: [facility] RN Member Role: Primary Care Nurse Name: Meagan Darden RN Position: [facility] RN Member Role: Primary Care Nurse Name: Chintan Leach DO Position: [facility] Renal MD Member Role: Lifetime Consulting Physician Address: Address: [address] [place], [place] [address] [place] [address]- Name: Chandler Ye RN Position: [facility] RN Member Role: Primary Care Nurse Name: Apurva Ji RN Position: [facility] ED RN W/OE and Tasks Member Role: Primary Care Nurse Name: Cordelia Matias RN Position: [facility] AMB Nurse Member Role: Primary Care Nurse Name: Riya Moore RN Position: [facility] RN Member Role: Primary Care Nurse Name: Radha Gutierrez Position: [facility] Outreach Member Role: Primary Care Nurse Name: Keenan Vincent RN Position: [facility] SN RN Member Role: Primary Care Nurse Name: Sasha Patricio RN Position: [facility] RN Member Role: Primary Care Nurse Name: Virgie Angel RN Position: [facility] RN Member Role: Primary Care Nurse Name: Malu Palomo Position: [facility] RN Member Role: Primary Care Nurse Name: Azeb Gusman RN Position: [facility] RN Member Role: Primary Care Nurse Name: Asher Diaz RN Position: [facility] RN Member Role: Primary Care Nurse Name: Kim Cornell RN Position: [facility] RN Member Role: Primary Care Nurse Name: Meredith Martinez RN Position: [facility] RN Member Role: Primary Care Nurse Name: Anika Gotti RN Position: [facility] RN Member Role: Primary Care Nurse Name: Kvng Tompkins RN Position: [facility] MARISABEL RN W/OE and Tasks Member Role: Primary Care Nurse Name: Rafiq Muñoz RN Position: [facility] RN Member Role: Primary Care Nurse Name: Justina Walker RN Position: [facility] RN Member Role: Primary Care Nurse Name: Ivone Hidalgo RN Position: [facility] RN Member Role: Primary Care Nurse Name: Mazin Penn MD Position: [facility] Physician - [facility] [place] [facility] Member Role: Lifetime Consulting Physician Address: Address: [address] [place] [address]- Care Team Related Persons Name: DORITA MCCOLLUM Address: [address] [place] [address] Name: STEW PECK Address: home [address] [place] [address] Name: LISA PALMA Address: [address] [place] [address]
--- OUTSIDE RECORDS SUMMARY | 2024-06-11 16:48 | XMS_ITS | Continuity of Care Document ---
Author Organization [facility] ter Address [address] [place] [address]- Care Team Providers Care American Sign Language Interpreter Name Role Phone Fatoumata Stokes DO Primary Care Physician Encounter [facility] Date(s): 10/20/23 - 11/19/[address] [address] Allergies, Adverse Reactions, Alerts [...] Given tetanus/diphtheria/pertussis, acel(Tdap) 10/20/14 Given tetanus/diphtheria/pertussis, acel(Tdap) 8/31/11 Given tetanus/diphtheria/pertussis, acel(Tdap) 07/31/10 Given pneumococcal 23-valent [...] opioid drug. Start Date: 10/17/23 Status: Ordered ferrous sulfate 325 mg oral [...] 0 Refills, Maintenance, 07/05/23 0:27:00 EDT, Nasal [place], Partial fill upon patient request if the [...] Maintenance,07/19/23 13:53:00 EDT, Route to Pharmacy Electronically, [facility], Partial fill upon patient request if the prescription is for a schedule... Start Date: 07/19/23 Stop Date: 08/18/23 Status: Ordered traZODone 50 mg oral tablet 50 mg, 1, tablet, By Mouth, Daily at bedtime, # 30 tablet, Refills 0, Tot. Refills 0, Maintenance, 07/19/23 13:53:00 EDT, Route to Pharmacy Electronically, [facility], Partial fill upon patient request if [...] 07/19/23 13:50:00 EDT, Route to Pharmacy Electronically, [facility], Partial fill upon patient request if [...] Display: History and Physical Hospital Authored Date: [id number] [place], [place] PSYCHIATRIC HISTORY ASSESS EXAM NAME: LORETTA CELESTIN : 89 MR#: [id number] PCP: ADMITTED: 12/20/15 DATE OF SERVICE: 12/20/15 HPI - Hosp Psych H P Chief Complaint Pt was sent from [facility] here for hallunication History of Present Illness 24 yo AA Female with known schizophrenia was seen at [facility] for hallucination. Apparently pt has been lived in usp and sent to [facility] for acute exacerbation of her underline schizophrenia. [...] QDAY Haloperidol* (Haldol*) [address] Carbonate SR* (Lithobid*) 300 MG PO QDAY liTHIum Carbonate SR* ([place] Carbonate SR*) 450 MG PO 4PM Discontinued Reported Medications Citalopram* (CeleXA*) 40 MG PO QDAY Benztropine* 0.5 MG PO BID buPROPion SR* 150 MG PO [id number] Trazodone* (Desyrel*) 100 MG PO HS RisperiDONE* [...] 324 MG QDAY 12/[address] [place] Carbonate 300 MG QDAY 12/20 09 AC PO Polyethylene Glycol 17 GM QDAY 12/20 09 CKD PO Benztropine Mesylate 1 MG 0900,12/19 1700 AC PO Docusate Sodium 100 MG 0900,12/19 1700 AC PO Haloperidol 5 MG 0900,12/[address] [place] Carbonate 450 MG PM 12/19 1700 AC [...] fullly ambulartory Care Level Complexity of Care [id number] Comprehensive history, comprehensive examination, medical decision making of low complexity, at least 20 minutes at the bedside, patient's floor/ unit. ESigned by: YAS GARZA MD Date:12/21/15 Time:1633 / NOT FOR REDISCLOSURE WITHOUT PATIENT'S INFORMED CONSENT Admission evaluation note * Event Display: Admit Notes Authored Date: [place], [place] PSYCHIATRIC ADMISSION NOTE NAME: LORETTA CELESTIN : 89 HOSPITAL #: [id number] MR #: [id number] CHART LOC: PCP: DICTATING: MARIA R Robin MD DATE OF ADMISSION: 12/20/15 DATE OF SERVICE: 12/21/15 CHIEF COMPLAINT: This 23-year-old woman was admitted to [facility] on 12/20/15 on a Conditional Voluntary [...] is living in a usp. Came to [place] with her grandmother in [...] year NAME: LORETTA CELESTIN : 89 HOSP#: [id number] MR#: [id number] CHART LOC: PCP: DICTATING: MARIA R Robin MD PSYCHIATRIC ADMISSION NOTE CONTINUED: unknown. TREATMENT PLAN: Resume outpatient medications, physical exam, collateral contact with community caregivers and social network, safety plan, aftercare plan and observe. 927 T: DD:[id number] TD:0745 DT:20151221 TT:0924 JOB:[id number] MICHELLE/SHANNON MARIA R Robin MD ESigned by: Date:12/22/15 Time:642 NOT FOR REDISCLOSURE WITHOUT PATIENT'S INFORMED CONSENT Patient Care team information Care Team Personnel Name: Dean Rivas RN Position: [facility] RN Member Role: Primary Care Nurse Name: Jolanta Ace RN Position: [facility] RN Supv Member Role: Primary Care Nurse Name: Fatoumata Stokes DO Position: [facility] Physician - Primary Care Member Role: PCP Address: Address: [address] [place] [address] Adult [place] [address]- Name: Awilda Grider RN Position: S RN Member Role: Primary Care Nurse Name: Meagan Darden RN Position: [facility] RN Member Role: Primary Care Nurse Name: Chintan Leach DO Position: [facility] Renal MD Member Role: Lifetime Consulting Physician Address: Address: [address] [place], [place] [address] [place] [address]- Name: Chandler Ye RN Position: [facility] RN Member Role: Primary Care Nurse Name: Apurva Ji RN Position: [facility] ED RN W/OE and Tasks Member Role: Primary Care Nurse Name: Cordelia Matias RN Position: [facility] AMB Nurse Member Role: Primary Care Nurse Name: Riya Moore RN Position: [facility] RN Member Role: Primary Care Nurse Name: Radha Gutierrez Position: [facility] Outreach Member Role: Primary Care Nurse Name: Keenan Vincent RN Position: [facility] SN RN Member Role: Primary Care Nurse Name: Sasha Patricio RN Position: [facility] RN Member Role: Primary Care Nurse Name: Virgie Angel Position: [facility] RN Member Role: Primary Care Nurse Name: Emma Kaminski RN Position: [facility] RN Member Role: Primary Care Nurse Name: Malu Palomo Position: [facility] RN Member Role: Primary Care Nurse Name: Azeb Gusman RN Position: [facility] RN Member Role: Primary Care Nurse Name: Asher Diaz RN Position: [facility] RN Member Role: Primary Care Nurse Name: Kim Cornell RN Position: [facility] RN Member Role: Primary Care Nurse Name: Meredith Martinez RN Position: [facility] RN Member Role: Primary Care Nurse Name: Anika Gotti RN Position: [facility] RN Member Role: Primary Care Nurse Name: Kvng Tompkins RN Position: [facility] ED RN W/OE and Tasks Member Role: Primary Care Nurse Name: Rafiq Muñoz RN Position: [facility] RN Member Role: Primary Care Nurse Name: Justina Walker RN Position: [facility] RN Member Role: Primary Care Nurse Name: Ivone Hidalgo RN Position: [facility] RN Member Role: Primary Care Nurse Name: Mazin Penn MD Position: [facility] Physician - Behavioral Health Member Role: Lifetime Consulting Physician Address: Address: [address] [place] [address]- [place] Care Team Related Persons Name: DORITA MCCOLLUM Address: [address] [place] [address] Name: KIA PECKCY Address: [address] [facility] [address] Name: LISA PALMA Address: [address] [place] [address]
--- OUTSIDE RECORDS SUMMARY | 2024-06-11 16:48 | XMS_ITS | Continuity of Care Document ---
Author Organization [facility] Address [address] [place] [address]- Care Team Providers Care Transportation Engineering Technician Name Role Phone Fatoumata Stokes DO Primary Care Physician [facility]counter [facility] Date(s): 09/22/23 - 10/22/23 [facility] [address] [place], [place] [address] Allergies, Adverse Reactions, Alerts Substance Reaction Severity [...] 0 Refills, Maintenance, 07/05/23 0:27:00 EDT, Nasal [place], Partial fill upon patient request if the [...] Maintenance,07/19/23 13:53:00 EDT, Route to Pharmacy Electronically, [facility], Partial fill upon patient request if the prescription is for a schedule... Start Date: 07/19/23 Stop Date: 08/18/23 Status: Ordered traZODone 50 mg oral tablet 50 mg, 1, tablet, By Mouth, Daily at bedtime, # 30 tablet, Refills 0, Tot. Refills 0, Maintenance, 07/19/23 13:53:00 EDT, Route to Pharmacy Electronically, [facility], Partial fill upon patient request if [...] 07/19/23 13:50:00 EDT, Route to Pharmacy Electronically, [facility], Partial fill upon patient request if [...] Display: History and Physical Hospital Authored Date: [id number] [place], [place] PSYCHIATRIC HISTORY ASSESS EXAM NAME: LORETTA CELESTIN : [birth year] MR#: [id number] PCP: ADMITTED: 12/20/15 DATE OF SERVICE: 12/20/15 HPI - Hosp Psych H P Chief Complaint Pt was sent from [facility] here for hallunication History of Present Illness 24 yo AA Female with known schizophrenia was seen at [facility] for hallucination. Apparently pt has been lived in longterm and sent to [facility] for acute exacerbation [...] QDAY Haloperidol* (Haldol*) 5 MG PO BID Gorman Carbonate SR* (Lithobid*) 300 MG PO QDAY liTHIum Carbonate SR* (Gorman Carbonate SR*) 450 MG PO 4PM Discontinued Reported Medications Citalopram* (CeleXA*) 40 MG PO QDAY Benztropine* 0.5 MG PO BID buPROPion SR* 150 MG PO [id number] Trazodone* (Desyrel*) 100 MG PO HS RisperiDONE* [...] 324 MG QDAY 12/20 09 CKD PO Gorman Carbonate 300 MG QDAY 12/20 09 AC PO Polyethylene Glycol 17 GM QDAY 12/20 09 CKD PO Benztropine Mesylate 1 MG 0900,12/19 1700 AC PO Docusate Sodium 100 MG 0900,12/19 1700 AC PO Haloperidol 5 MG 0900,12/19 1700 AC PO Gorman Carbonate 450 MG PM 12/19 1700 AC [...] fullly ambulartory Care Level Complexity of Care [id number] Comprehensive history, comprehensive examination, medical decision making of low complexity, at least 20 minutes at the bedside, patient's floor/ unit. ESigned by: YAS GARZA MD Date:12/21/15 Time:1633 / NOT FOR REDISCLOSURE WITHOUT PATIENT'S INFORMED CONSENT Admission evaluation note * Event Display: Admit Notes Authored Date: [id number] [place], [place] PSYCHIATRIC ADMISSION NOTE NAME: LORETTA CELESTIN : 89 HOSPITAL #: [id number] MR #: [id number] CHART LOC: PCP: DICTATING: MARIA R Robin MD DATE OF ADMISSION: 12/20/15 DATE OF SERVICE: 12/21/15 CHIEF COMPLAINT: This 23-year-old woman was admitted to [facility] on 12/20/15 on a Conditional [...] is living in a longterm. Came to [place] with her grandmother in 2013, was very [...] year NAME: LORETTA CELESTIN : 89 HOSP#: [id number] MR#: [id number] CHART LOC: PCP: DICTATING: MARIA R Robin MD PSYCHIATRIC ADMISSION NOTE CONTINUED: unknown. TREATMENT PLAN: Resume outpatient medications, physical exam, collateral contact with community caregivers and social network, safety plan, aftercare plan and observe. 927 T:sn DD:[id number] TD:0745 DT:20151221 TT:0924 JOB:[id number] MICHELLE/SHANNON MARIA R Robin MD ESigned by: Date:12/22/15 Time:642 NOT FOR REDISCLOSURE WITHOUT PATIENT'S INFORMED CONSENT Patient Care team information Care Team Personnel Name: Dean Rivas RN Position: [facility] RN Member Role: Primary Care Nurse Name: Jolanta Ace RN Position: [facility] RN Supv Member Role: Primary Care Nurse Name: Fatoumata Stokes DO Position: [facility] Physician - Primary Care Member Role: PCP Address: Address: [address] [place] [address] Adult [place] [address]- Name: Britt Polanco RN Position: [facility] RN Member Role: Primary Care Nurse Name: Awilda Grider RN Position: S RN Member Role: Primary Care Nurse Name: Meagan Darden RN Position: [facility] RN Member Role: Primary Care Nurse Name: Chintan Leach DO Position: [facility] Renal MD Member Role: Lifetime Consulting Physician Address: Address: [address] [place] [address] [address] [facility] [place] [address]- Name: Chandler Ye RN Position: [facility] ED RN W/OE and Tasks Member Role: Primary Care Nurse Name: Apurva Ji RN Position: [facility] ED RN W/OE and Tasks Member Role: Primary Care Nurse Name: Cordelia Matias RN Position: [facility] AMB Nurse Member Role: Primary Care Nurse Name: Riya Moore RN Position: [facility] RN Member Role: Primary Care Nurse Name: Radha Gutierrez Position: [facility] Outreach Member Role: Primary Care Nurse Name: Keenan Vincent RN Position: [facility] SN RN Member Role: Primary Care Nurse Name: Sasha Patricio RN Position: [facility] RN Member Role: Primary Care Nurse Name: Virgie Angel Position: [facility] RN Member Role: Primary Care Nurse Name: Emma Kaminski RN Position: [facility] RN Member Role: Primary Care Nurse Name: Malu Palomo Position: [facility] RN Member Role: Primary Care Nurse Name: Azeb Gusman RN Position: [facility] RN Member Role: Primary Care Nurse Name: Asher Diaz RN Position: [facility] RN Member Role: Primary Care Nurse Name: Kim Cornell RN Position: [facility] RN Member Role: Primary Care Nurse Name: Meredith Martinez RN Position: [facility] RN Member Role: Primary Care Nurse Name: Anika Gotti RN Position: [facility] RN Member Role: Primary Care Nurse Name: Kvng Tompkins RN Position: [facility] ED RN W/OE and Tasks Member Role: Primary Care Nurse Name: Rafiq Muñoz RN Position: [facility] RN Member Role: Primary Care Nurse Name: Justina Walker RN Position: [facility] RN Member Role: Primary Care Nurse Name: Ivone Hidalgo RN Position: [facility] RN Member Role: Primary Care Nurse Name: Mazin Penn MD Position: [facility] Physician - Behavioral Health Member Role: Lifetime Consulting Physician Address: Address: [address] [place] [address]- [place] Care Team Related Persons Name: DORITA MCCOLLUM Address: [address] [place] [address] Name: ASIADEEDEESTEW Address: home [address] [facility], [address] Name: LISA PALMA Address: home [address] [place] [address]
--- OUTSIDE RECORDS SUMMARY | 2024-06-11 16:48 | XMS_ITS | Continuity of Care Document ---
Author Organization [facility] Address [address] [place] [address]- Care Team Providers Care Toxicology Supervisor Name Role Phone Fatoumata Stokes DO Primary Care Physician Encounter [facility] Date(s): 04/25/24 - 05/02/24 [facility] [address] [place] [address]- Encounter Diagnosis PND (post-nasal drip)(Discharge Diagnosis) - 04/25/24 Hyperprolactinemia(Discharge Diagnosis) - 04/25/24 Oligomenorrhea(Discharge Diagnosis) - 04/25/24 Attending Physician: Víctor Magallanes MD Allergies, Adverse Reactions, Alerts Substance Reaction [...] 0 Refills, Maintenance, 02/17/24 9:30:00 EDT, Tablet, [facility], Partial fill upon patient request if [...] Refills, Soft Stop, 04/09/24 12:02:00 EDT, Tablet, [facility], Partial fill upon patient request if [...] 0 Refills, Maintenance, 03/09/24 14:42:00 EDT, Nasal [place], [facility], Partial fill upon patient request if the prescription is for a schedule II opi... Start Date: 03/09/24 Status: Ordered lidocaine 5% topical film 1 patch, Topically, Daily, INSTR:REMOVE PATCHES AFTER 12 HOURS, # 30 each, 0 Refills, Maintenance, 04/26/24 17:29:00 EDT, [facility], 30, APPLY 1 PATCH TOPICALLY DAILY,INSTR:REMOVE [...] Replace Required Details, Route to Pharmacy Electronically, [facility], 163, cm, 04/09/24 11:20:00 EDT, Height, [...] 0 Refills, Maintenance, 04/25/24 10:05:00 EDT, ECCapsule, [facility], Partial fill upon patient [...] By Mouth, Daily, call the office at [phone] if you do not get a menstrual [...] tablet, 11 Refills, Maintenance, 02/17/24 9:32:00 EDT, [facility], 163, cm, 02/17/24 9:01:00 EDT, Height, [...] Effective Dates Health Status Clinical Service Informant PND (post-nasal drip) Discharge Diagnosis 04/25/24 Hyperprolactinemia Discharge Diagnosis 04/25/24 Oligomenorrhea Discharge Diagnosis 04/25/24 Vital Signs Most recent to oldest [Reference Range]: 1 Height 163 cm (04/25/24 2:35 PM) Weight 102.1 kg (04/25/24 2:35 PM) Oxygen Saturation [94-100 %] 100 % (04/25/24 2:35 PM) Pulse Rate [55-90 bpm] 103 bpm *H* (04/25/24 2:35 PM) Body Mass Index [18.5-24.99 kg/m2] 38.43 kg/m2 *>HHI* (04/25/24 2:35 PM) Blood Pressure [90-138/55-84 mm Hg] 150/ 88mm Hg *H* (04/25/24 2:35 PM) Mode of Delivery (Oxygen) Room air (04/25/24 2:35 PM) Blood pressure sites Arm, right (04/25/24 2:35 PM) Dry Weight 102.1 kg (04/25/24 2:35 PM) Weight Obtained Via Standing scale (04/25/24 2:35 PM) Dry Weight Obtained Via Pediatric scale (04/25/24 2:35 PM) Social History Social History Type Response Smoking Status 5-9 cigarettes (betw een 1/4 to 1/2 pack)/day in last 30 days; Interested in cessation: No; Patient wants NRT during admission Yes; Other: will accept nicotine gum; entered on: 07/14/23 Sex History and physical note * Event Display: History and Physical Hospital Authored Date: [id number] [place], [place] PSYCHIATRIC HISTORY ASSESS EXAM NAME: LORETTA CELESTIN : [birth year] MR#: [id number] PCP: ADMITTED: 12/20/15 DATE OF SERVICE: 12/20/15 HPI - Hosp Psych H P Chief Complaint Pt was sent from [facility] here for hallunication History of Present Illness 24 yo AA Female with known schizophrenia was seen at [facility] for hallucination. [place] [facility] [place] [facility] QDAY Haloperidol* (Haldol*) 5 MG PO BID Atalissa Carbonate SR* (Lithobid*) 300 MG PO QDAY liTHIum Carbonate SR* (Atalissa Carbonate SR*) 450 MG PO 4PM Discontinued Reported Medications Citalopram* (CeleXA*) 40 MG PO QDAY Benztropine* 0.5 MG PO BID buPROPion SR* 150 MG PO [id number] Trazodone* (Desyrel*) 100 MG PO HS RisperiDONE* [...] 324 MG QDAY 12/20 09 CKD PO Atalissa Carbonate 300 MG QDAY 12/20 09 AC PO Polyethylene Glycol 17 GM QDAY 12/20 09 CKD PO Benztropine Mesylate 1 MG 0900,12/19 1700 AC PO Docusate Sodium 100 MG 0900,12/19 1700 AC PO Haloperidol 5 MG 0900,12/19 1700 AC PO Atalissa Carbonate 450 MG PM 12/19 1700 AC [...] fullly ambulartory Care Level Complexity of Care [id number] Comprehensive history, comprehensive examination, medical decision making of low complexity, at least 20 minutes at the bedside, patient's floor/ unit. ESigned by: YAS GARZA MD Date:12/21/15 Time:1633 / NOT FOR REDISCLOSURE WITHOUT PATIENT'S INFORMED CONSENT Admission evaluation note * Event Display: Admit Notes Authored Date: [id number] [place], [place] PSYCHIATRIC ADMISSION NOTE NAME: LORETTA CELESTIN : 89 HOSPITAL #: [id number] #: [id number] CHART LOC: PCP: DICTATING: MARIA R Robin MD DATE OF ADMISSION: 12/20/15 DATE OF SERVICE: 12/21/15 CHIEF COMPLAINT: This 23-year-old woman was admitted to [facility] on 12/20/15 on [...] a [place] [facility] [place]. Came to [place] with her grandmother in 2013, was very [...] year NAME: LORETTA CELESTIN : 89 HOSP#: [id number] MR#: [id number] CHART LOC: PCP: DICTATING: MARIA R Robin MD PSYCHIATRIC ADMISSION NOTE CONTINUED: unknown. TREATMENT PLAN: Resume outpatient medications, physical exam, collateral contact with community caregivers and social network, safety plan, aftercare plan and observe. 927 T:sn DD:[id number] TD:0745 DT:20151221 TT:0924 JOB:[id number] MICHELLE/SHANNON MARIA R Robin MD ESigned by: Date:12/22/15 Time:0643 NOT FOR REDISCLOSURE WITHOUT PATIENT'S INFORMED CONSENT Note * Becca Garcia: PERFORM Event Display: Patient Education/Instruction Authored Date: [id number] Ambulatory Adult Visit Summary [facility] [address] [place] [address] Name: LORETTA CELESTIN : 1990?? Visit: 04/25/2024 14:28?? Ambulatory Visit Instructions ?? Your Care Team Primary Care Provider Fatoumata Stokes DO? This Visit Provider Linden Magallanes MD Vitals Signs Pulse Rate:??103 bpm??High Height: 163 cm Systolic Blood Pressure:??150 mm Hg??High Weight: 102.1 kg Diastolic Blood Pressure:??88 mm Hg??High Body Mass Index:??38.43 kg/m2??Critical Oxygen Saturation: 100 % Body surface area: 2.15 What to do next Scheduled Follow-Up Appointments 2023 1:40 PM EDT ?? With: Fatoumata Stokes DO Where: [facility] [address] [place] [address]- Status: Pending Tuesday 11:30 AM EDT ?? Where: [facility] [address] [place] [address]- Status: Pending Future Orders Complete Urinalysis - Routine, Once, 12/19/23 12:25:00 EDT, Order for Today, [facility], Urine?? [facility] Test - Routine, Once, 01/24/24 9:36:00 EDT, Single or Recurring Future Order, [facility], OTHER?? Complete Urinalysis/Reflex Culture (Urinalysis Complete/Reflex Culture) - Routine, Once, 03/09/24 14:41:00 EDT, Order for Today, [facility], Urine?? Medications The list below reflects the information in our records and provided by you today along with any changes made during this visit. Please continue your medications until treatment is completed or stopped by your provider. If this is different from the information you have or there are other questions,please contact the prescribing provider. What How Much When Instructions Unchanged Acetaminophen (acetaminophen 500 mg oral tablet) 2 tab(s) Oral Twice a day as needed for Pain , Mild Unchanged Ascorbic Acid (Vitamin C 250 mg oral tablet) 1 tab(s) Oral Daily in the morning AT 9AM. ?? Unchanged Ascorbic Acid (Vitamin C 250 mg oral tablet) See instructions 1 tablet By Mouth every other day with iron Daily at 9am ?? Unchanged Benztropine (benztropine 1 mg oral tablet) 1 tab(s) Oral Twice a day Unchanged Ferrous Sulfate (ferrous sulfate 325 mg oral enteric coated tablet) See instructions Take one tablet By Mouth every other day. Take with vitamin C to help absorption at 9am ?? Unchanged Ferrous Sulfate (ferrous sulfate 325 mg oral enteric coated tablet) 325 Milligram Oral Every other day Unchanged Fluconazole (Diflucan 150 mg oral tablet) 1 tab(s) Oral Every 72 hours to treat yeast. ?? Unchanged Fluticasone Nasal (fluticasone 50 mcg/ inh nasal spray) 1 spray(s) Nares, Both Twice a day as needed for Other nasal allergy symptoms ?? Unchanged Lidocaine Topical (Lidoderm 5% film) 1 patch(es) Topically Daily remove patches after 12 hours ?? Unchanged Atalissa (lithium 450 mg oral tablet, extended release) 1 tab(s) Oral Twice a day Unchanged Loratadine (loratadine 10 mg oral tablet) See instructions TAKE 1 TABLET BY MOUTH AT 9AM ?? Unchanged MedroxyPROGESTERone (Provera 10 mg oral tablet) 1 tab(s) Oral Daily Duration: 10 Days call the office at [phone] if you do not get a menstrual cycle. ?? Unchanged Olanzapine (ZyPREXA 10 mg oral tablet) 1 tab(s) Oral Daily at Bedtime Duration: 30 Days Unchanged Omeprazole (omeprazole 10 mg oral enteric coated capsule) 1 capsule Oral Daily Unchanged Perphenazine (perphenazine 8 mg oral tablet) 2 tab(s) Oral Twice a day Unchanged Polyethylene Glycol 3350 (MiraLax Powder) 17 gram Oral Daily Unchanged Prazosin (prazosin 1 mg oral capsule) 1 capsule Oral Daily at Bedtime Duration: 30 Days Unchanged Trazodone (traZODone 50 mg oral tablet) 1 tab(s) Oral Daily at Bedtime Duration: 30 Days Medications and Immunizations Administered Medications Given During Visit No medications given during this visit.?? Allergies (NKA means No Known Allergies) Flagyl Haldol Invega cloZAPine paliperidone Common Emergency Awareness Tips IS IT A [...] are strongly encouraged to quit. Please call [facility] Link at [phone] or 3-827-609-Family Help & Wellness (8402) or log in to [email or web address] for referrals to smoking cessation programs. ?? The National Suicide Prevention Hotline is available 18/04 if you or someone you know needs to find a reason to keep living. By calling 4-608-095-DocuTAP (9809) you'll be connected to a skilled, trained counselor at a crisis center in your area. [facility] Portal You can view and manage your care through the patient portal or by using a health care lonny of your choosing. [employer] is a website that allows you to securely view your medical information including your hospital discharge summary, office visit summaries, medications and follow-up visits. You can also request appointments, renew medications, and request access to your medical information using a health care lonny of your choosing, or just ask a question. You can enroll at [email or web address] or register during your next office visit. [facility], in keeping with [facility] guidance, no longer requires face masks for [...] medical provider or home test kit. ?? Disclaimer: The information provided is of a general nature and is intended to be used in conjunction with the recommendations and advice of your health care practitioner. Every effort has been made to ensure that the information provided is accurate and complete at the time it is provided to you however, as your needs change, or, as new information becomes available, different or additional instructions may be required. ?? If you have questions, please consult with your primary care provider or pharmacist, as appropriate. This information is not intended to serve as substitution for assessment and evaluation by a qualified health care provider. If you do not have a primary care provider, you may find a [facility] provider by calling [facility] at [phone]. Patient Care team information Care Team Personnel Name: Dean Rivas RN Position: [facility] RN Member Role: Primary Care Nurse Name: Jolanta Ace RN Position: [facility] RN Supv Member Role: Primary Care Nurse Name: Fatoumata Stokes DO Position: [facility] Physician - Primary Care Member Role: PCP Address: Address: [address] [place] [address] Adult & [place] [address]- Name: Awilda Grider RN Position: [facility] RN Member Role: Primary Care Nurse Name: Meagan Darden RN Position: [facility] RN Member Role: Primary Care Nurse Name: Chintan Leach DO Position: [facility] Renal MD Member Role: Lifetime Consulting Physician Address: Address: [address] [place], [place] [address] [place] [address]- Name: Chandler Ye RN Position: [facility] RN Member Role: Primary Care Nurse Name: Apurva Ji RN Position: [facility] ED RN W/OE and Tasks Member Role: Primary Care Nurse Name: Cordelia Matias RN Position: [facility] AMB Nurse Member Role: Primary Care Nurse Name: Riya Moore RN Position: [facility] RN Member Role: Primary Care Nurse Name: Radha Gutierrez Position: [facility] Outreach Member Role: Primary Care Nurse Name: Keenan Vincent RN Position: [facility] SN RN Member Role: Primary Care Nurse Name: Sasha Patricio RN Position: [facility] RN Member Role: Primary Care Nurse Name: Virgie Angel RN Position: [facility] RN Member Role: Primary Care Nurse Name: Malu Palomo Position: [facility] RN Member Role: Primary Care Nurse Name: Azeb Gusman RN Position: [facility] RN Member Role: Primary Care Nurse Name: Asher Diaz RN Position: [facility] RN Member Role: Primary Care Nurse Name: Kim Cornell RN Position: [facility] RN Member Role: Primary Care Nurse Name: Meredith Martinez RN Position: [facility] RN Member Role: Primary Care Nurse Name: Anika Gotti RN Position: [facility] RN Member Role: Primary Care Nurse Name: Kvng Tompkins RN Position: [facility] ED RN W/OE and Tasks Member Role: Primary Care Nurse Name: Rafiq Muñoz RN Position: [facility] RN Member Role: Primary Care Nurse Name: Justina Walker RN Position: [facility] RN Member Role: Primary Care Nurse Name: Ivone Hidalgo RN Position: [facility] RN Member Role: Primary Care Nurse Name: Mazin Penn MD Position: [facility] Physician - Behavioral Health Member Role: Lifetime Consulting Physician Address: Address: [address] [place] [address] [place] Care Team Related Persons Name: DORITA MCCOLLUM Address: home [address] [place] [address] Name: STEW PECK Address: home [address] [place] [address] Name: LISA PALMA Address: [address] [place] [address]
--- OUTSIDE RECORDS SUMMARY | 2024-06-11 16:49 | XMS_ITS | Continuity of Care Document ---
Author Organization [facility] Address [address] [place] [address]- Care Team Providers Care Gear Lapping Machine Operator Name Role Phone Fatoumata Stokes DO Primary Care Physician Encounter [facility] Date(s): 03/26/24 - 04/25/24 [facility] [address] [place], [place] [address] Allergies, Adverse Reactions, Alerts Substance Reaction Severity Status Flagyl Active Haldol Active paliperidone Active cloZAPine Active Invega Active [...] 0 Refills, Maintenance, 02/17/24 9:30:00 EDT, Tablet, [facility], Partial fill upon patient request if [...] Refills, Soft Stop, 04/09/24 12:02:00 EDT, Tablet, [facility], Partial fill upon patient request if [...] 0 Refills, Maintenance, 03/09/24 14:42:00 EDT, Nasal [place], [facility], Partial fill upon patient request if the prescription is for a schedule II opi... Start Date: 03/09/24 Status: Ordered Lidoderm 5% film 1 patch, Topically, Daily, remove patches after 12 hours, # 30 patch, 0 Refills, Maintenance, 03/09/24 14:43:00 EDT, Film, [facility], Partial fill upon [...] Replace Required Details, Route to Pharmacy Electronically, [facility], 163, cm, 04/09/24 11:20:00 EDT, Height, [...] 0 Refills, Maintenance, 04/25/24 10:05:00 EDT, ECCapsule, [facility], Partial fill upon patient request if [...] By Mouth, Daily, call the office at [phone] if you do not get a menstrual cycle., # 10 tablet, Refills 0, Tot. Refills 0, Maintenance, 12/21/23 15:20:00 EDT, Route to Pharmacy Electronically, [facility], Partial fill u... Start Date: 12/21/23 Stop Date: 12/31/23 Status: Ordered traZODone 50 mg oral tablet 50 mg, 1, tablet, By Mouth, Daily at bedtime, # 30 tablet, Refills 0, Tot. Refills 0, Maintenance, 07/19/23 13:53:00 EDT, Route to Pharmacy Electronically, [facility], Partial fill upon patient request if the prescription is for a schedule I... Start Date: 07/19/23 Stop Date: 08/18/23 Status: Ordered Vitamin C 250 mg oral tablet See Instructions, 1 tablet By Mouth every other day with iron Daily at 9am, # 45 tablet, 11 Refills, Maintenance, 02/17/24 9:32:00 EDT, [facility], 163, cm, 02/17/24 9:01:00 EDT, Height, 96.5, kg, 02/11/24 1:23:00 EDT, Dry Weight Start Date: 02/17/24 Status: Ordered Vitamin C 250 mg oral tablet 1 tablet, By Mouth, Daily in AM, AT 9AM., # 30 tablet, 0 Refills, Maintenance, 02/02/24 15:05:00 EDT, [facility], 163, cm, 01/24/24 9:01:00 EDT, Height, 100.2, kg, 10/17/23 16:02:00 EST, Dry Weight Start Date: 02/02/24 Status: Ordered ZyPREXA 10 mg oral tablet 10 mg, 1, tablet, By Mouth, Daily at bedtime, # 30 tablet, Refills 0, Tot. Refills 0, Maintenance, 07/19/23 13:50:00 EDT, [facility] to Pharmacy Electron[facility], [facility] [...] Display: History and Physical Hospital Authored Date: [id number] [place], [place] PSYCHIATRIC HISTORY ASSESS EXAM NAME: LORETTA CELESTIN : 89 MR#: [id number] PCP: ADMITTED: 12/20/15 DATE OF SERVICE: 12/20/15 HPI - Hosp Psych H P Chief Complaint Pt was sent from [facility] here for hallunication History of Present Illness 24 yo AA Female with known schizophrenia was seen at [facility] for hallucination. Apparently pt has been lived in correction and sent to [facility] [...] QDAY Haloperidol* (Haldol*) 5 MG PO BID [place] Carbonate SR* (Lithobid*) 300 MG PO QDAY liTHIum Carbonate SR* ([place] Carbonate SR*) 450 MG PO 4PM Discontinued Reported Medications Citalopram* (CeleXA*) 40 MG PO QDAY Benztropine* 0.5 MG PO BID buPROPion SR* 150 MG PO RAM033 Trazodone* (Desyrel*) 100 MG PO HS RisperiDONE* [...] 324 MG QDAY 12/20 0900 CKD PO [place] Carbonate 300 MG QDAY 12/20 0900 AC PO Polyethylene Glycol 17 GM QDAY 12/20 0900 CKD PO Benztropine Mesylate 1 MG 0900,1700 12/19 1700 AC PO Docusate Sodium 100 MG 0900,1700 12/19 1700 AC PO Haloperidol 5 MG 0900,1700 12/19 1700 AC PO [place] Carbonate 450 MG PM 12/19 1700 AC [...] fullly ambulartory Care Level Complexity of Care [id number] Comprehensive history, comprehensive examination, medical decision making of low complexity, at least 20 minutes at the bedside, patient's floor/ unit. ESigned by: YAS GARZA MD Date:12/21/15 Time:1633 / NOT FOR REDISCLOSURE WITHOUT PATIENT'S INFORMED CONSENT Admission evaluation note * Event Display: Admit Notes Authored Date: [id number] [place], [place] PSYCHIATRIC ADMISSION NOTE NAME: LORETTA CELESTIN : 89 HOSPITAL #: [id number] MR #: [id number] CHART LOC: PCP: DICTATING: MARIA R Robin MD DATE OF ADMISSION: 12/20/15 DATE OF SERVICE: 12/21/15 CHIEF COMPLAINT: This 23-year-old woman was admitted to [facility] on 12/20/15 on a Conditional Voluntary application [...] is living in a correction. Came to [place] with her grandmother [...] year NAME: LORETTA CELESTIN : 89 HOSP#: [id number] MR#: [id number] CHART LOC: PCP: DICTATING: MARIA R Robin MD PSYCHIATRIC ADMISSION NOTE CONTINUED: unknown. TREATMENT PLAN: Resume outpatient medications, physical exam, collateral contact with community caregivers and social network, safety plan, aftercare plan and observe. 927 T:sn DD:[id number] TD:0745 DT:20151221 TT:0924 JOB:[id number] MICHELLE/SHANNON MARIA R Robin MD ESigned by: Date:12/22/15 Time:642 NOT FOR REDISCLOSURE WITHOUT PATIENT'S INFORMED CONSENT Patient Care team information Care Team Personnel Name: Rob ROTHMAN, Dean Position: [facility] RN Member Role: Primary Care Nurse Name: Jolanta Ace RN Position: [facility] RN Supv Member Role: Primary Care Nurse Name: Fatoumata Stokes DO Position: [facility] Physician - Primary Care Member Role: PCP Address: Address: [address] [place] [address] Adult [place] [address]- [place] Name: Awilda Grider RN Position: [facility] RN Member Role: Primary Care Nurse Name: Meagan Darden RN Position: [facility] RN Member Role: Primary Care Nurse Name: Chintan Leach DO Position: [facility] Renal MD Member Role: Lifetime Consulting Physician Address: Address: [address] [place] [address] [address] [facility] [place] [address]- [place] Name: Chandler Ye RN Position: [facility] RN Member Role: Primary Care Nurse Name: Apurva Ji RN Position: [facility] ED RN W/OE and Tasks Member Role: Primary Care Nurse Name: Cordelia Matias RN Position: [facility] AMB Nurse Member Role: Primary Care Nurse Name: Riya Moore RN Position: [facility] RN Member Role: Primary Care Nurse Name: Radha Gutierrez Position: [facility] Outreach Member Role: Primary Care Nurse Name: Keenan Vincent RN Position: [facility] SN RN Member Role: Primary Care Nurse Name: Sasha Patricio RN Position: [facility] RN Member Role: Primary Care Nurse Name: Virgie Angel RN Position: [facility] RN Member Role: Primary Care Nurse Name: Malu aPlomo Position: [facility] RN Member Role: Primary Care Nurse Name: Azeb Gusman RN Position: [facility] RN Member Role: Primary Care Nurse Name: Asher Diaz RN Position: [facility] RN Member Role: Primary Care Nurse Name: Kim Cornell RN Position: [facility] RN Member Role: Primary Care Nurse Name: Meredith Martinez RN Position: [facility] RN Member Role: Primary Care Nurse Name: Anika Gotti RN Position: [facility] RN Member Role: Primary Care Nurse Name: Kvng Tompkins RN Position: [facility] ED RN W/OE and Tasks Member Role: Primary Care Nurse Name: Rafiq Muñoz RN Position: [facility] RN Member Role: Primary Care Nurse Name: Justina Walker RN Position: [facility] RN Member Role: Primary Care Nurse Name: Ivone Hidalgo RN Position: [facility] RN Member Role: Primary Care Nurse Name: Mazin Penn MD Position: [facility] Physician - Behavioral Health Member Role: Lifetime Consulting Physician Address: Address: [address] [place] [address]- [place] Care Team Related Persons Name: DORITA MCCOLLUM Address: home [address] [place] [address] Name: STEW PECK Address: home [address] [place] [address] Name: LISA PALMA Address: [address] [place] [address]
--- OUTSIDE RECORDS SUMMARY | 2024-06-11 16:49 | XMS_ITS | Continuity of Care Document ---
Author Organization [facility] Address [address] [place] [address]- Care Team Providers Care Hospital Product Specialist Name Role Phone Fatoumata Stokes DO Primary Care Physician Encounter [facility] Date(s): 09/20/23 - 09/20/[address] [address]- Discharge Disposition: A-D/C Home Attending Physician: Venessa [...] 0 Refills, Maintenance, 07/05/23 0:27:00 EDT, Nasal [place], Partial fill upon patient request if the [...] 0 Refills, Maintenance, 07/19/23 13:49:00 EDT, Capsule, [facility], Partial fill upon patient request if [...] Maintenance,07/19/23 13:53:00 EDT, Route to Pharmacy Electronically, [facility], Partial fill upon patient request if the prescription is for a schedule... Start Date: 07/19/23 Stop Date: 08/18/23 Status: Ordered traZODone 50 mg oral tablet 50 mg, 1, tablet, By Mouth, Daily at bedtime, # 30 tablet, Refills 0, Tot. Refills 0, Maintenance, 07/19/23 13:53:00 EDT, Route to Pharmacy Electronically, [facility], Partial fill upon patient request if [...] 07/19/23 13:50:00 EDT, Route to Pharmacy Electronically, [facility], Partial fill upon patient request if [...] to oldest [Reference Range]: 1 2 Height 162 cm (09/20/23 4:22 PM) Oxygen Saturation [94-100 %] 100 % (09/20/23 6:47 PM) 100 % (09/20/23 4:22 PM) Pulse Rate [55-90 bpm] 85 bpm (09/20/23 6:47 PM) 79 bpm (09/20/23 4:22 PM) Blood Pressure [90-138/55-84 mm Hg] 145/ 97mm Hg *H* (09/20/23 6:47 PM) 133/94mm Hg (09/20/23 4:22 PM) Respiratory Rate [16-30 br/min] 18 br/mi n (09/20/23 6:47 PM) 18 br/min (09/20/23 4:22 PM) Temperature [96.8-100.4 DegF] 98.7 DegF (09/20/23 4:22 PM) Mode of Delivery (Oxygen) Room air (09/20/23 6:47 PM) Room air (09/20/23 4:22 PM) Blood pressure sites Arm, right (09/20/23 6:47 PM) Arm, right (09/20/23 4:22 PM) Temperature Route Oral (09/20/23 4:22 PM) Social History Social History Type Response Smoking Status 5-9 cigarettes (betw een 1/4 to 1/2 pack)/day in last 30 days; Interested in cessation: No; Patient wants NRT during admission Yes; Other: will accept nicotine gum; entered on: 07/14/23 Sex History and physical note * Event Display: History and Physical Hospital Authored Date: [id number] [place], [place] PSYCHIATRIC HISTORY ASSESS EXAM NAME: LORETTA CELESTIN : 89 MR#: [id number] PCP: ADMITTED: 12/20/15 DATE OF SERVICE: 12/20/15 HPI - Hosp Psych H P Chief Complaint Pt was sent from [facility] here for hallunication History of Present Illness 24 yo AA Female with known schizophrenia was seen at [facility] for hallucination. Apparently pt has been lived in jail and sent to [facility] for acute exacerbation of her underline schizophrenia. [...] QDAY Haloperidol* (Haldol*) 5 MG PO BID [place] Carbonate SR* (Lithobid*) 300 MG PO QDAY liTHIum Carbonate SR* ([place] Carbonate SR*) 450 MG PO 4PM Discontinued Reported Medications Citalopram* (CeleXA*) 40 MG PO QDAY Benztropine* 0.5 MG PO BID buPROPion SR* 150 MG PO [id number] Trazodone* (Desyrel*) 100 MG PO HS RisperiDONE* [...] 324 MG QDAY 12/20 0900 CKD PO [place] Carbonate 300 MG QDAY 12/20 0900 AC PO Polyethylene Glycol 17 GM QDAY 12/20 0900 CKD PO Benztropine Mesylate 1 MG 0900,1700 12/19 1700 AC PO Docusate Sodium 100 MG 0900,1700 12/19 1700 AC PO Haloperidol 5 MG 0900,1700 12/19 1700 AC PO [place] Carbonate 450 MG PM 12/19 1700 AC [...] fullly ambulartory Care Level Complexity of Care [id number] Comprehensive history, comprehensive examination, medical decision making of low complexity, at least 20 minutes at the bedside, patient's floor/ unit. ESigned by: YAS GARZA MD Date:12/21/15 Time:1633 / NOT FOR REDISCLOSURE WITHOUT PATIENT'S INFORMED CONSENT Admission evaluation note * Event Display: Admit Notes Authored Date: [id number] [place], [place] PSYCHIATRIC ADMISSION NOTE NAME: LORETTA CELESTIN : 89 HOSPITAL #: [id number] MR #: [id number] CHART LOC: PCP: DICTATING: MARIA R Robin MD DATE OF ADMISSION: 12/20/15 DATE OF SERVICE: 12/21/15 CHIEF COMPLAINT: This 23-year-old woman was admitted to [facility] on 12/20/15 on a Conditional [...] is living in a jail. Came to [place] with her grandmother in [...] year NAME: LORETTA CELESTIN : 89 HOSP#: [id number] MR#: [id number] CHART LOC: PCP: DICTATING: MARIA R Robin MD PSYCHIATRIC ADMISSION NOTE CONTINUED: unknown. TREATMENT PLAN: Resume outpatient medications, physical exam, collateral contact with community caregivers and social network, safety plan, aftercare plan and observe. 927 T:sn DD:[id number] TD:0745 DT:20151221 TT:0924 JOB:[id number] TORIE MARIA R Robin MD ESigned by: Date:12/22/15 Time:0643 NOT FOR REDISCLOSURE WITHOUT PATIENT'S INFORMED CONSENT Note * Ian TORRES, Venessa Tarango: PERFORM, SIGN, VERIFY Event Display: Patient Education Handout Authored Date: [id number] Patient Care team information Care Team Personnel Name: Dean Rivas RN Position: [facility] RN Member Role: Primary Care Nurse Name: Jolanta Ace RN Position: [facility] RN Supv Member Role: Primary Care Nurse Name: Fatoumata Stokes DO Position: [facility] Physician - Primary Care Member Role: PCP Address: Address: [address] [place] [address] Adult [place] [address]- Name: Britt Polanco RN Position: [facility] RN Member Role: Primary Care Nurse Name: Awilda Grider RN Position: [facility] RN Member Role: Primary Care Nurse Name: Meagan Darden RN Position: [facility] RN Member Role: Primary Care Nurse Name: Chintan Leach DO Position: [facility] Renal MD Member Role: Lifetime Consulting Physician Address: Address: [address] [place], [place] [address] [place] [address]- Name: Chandler Ye RN Position: [facility] RN Member Role: Primary Care Nurse Name: Apurva Ji RN Position: [facility] ED RN W/OE and Tasks Member Role: Primary Care Nurse Name: Cordelia Matias RN Position: [facility] AMB Nurse Member Role: Primary Care Nurse Name: Riya Moore RN Position: [facility] RN Member Role: Primary Care Nurse Name: Radha Gutierrez Position: [facility] Outreach Member Role: Primary Care Nurse Name: Keenan Vincent RN Position: [facility] SN RN Member Role: Primary Care Nurse Name: Sasha Patricio RN Position: [facility] RN Member Role: Primary Care Nurse Name: Virgie Angel Position: [facility] RN Member Role: Primary Care Nurse Name: Emma Kaminski RN Position: [facility] RN Member Role: Primary Care Nurse Name: Malu Palomo Position: [facility] RN Member Role: Primary Care Nurse Name: Azeb Gusman RN Position: [facility] RN Member Role: Primary Care Nurse Name: Asher Diaz RN Position: [facility] RN Member Role: Primary Care Nurse Name: Kim Cornell RN Position: [facility] RN Member Role: Primary Care Nurse Name: Meredith [place] RN Position: [facility] RN Member Role: Primary Care Nurse Name: Anika Gotti RN Position: [facility] RN Member Role: Primary Care Nurse Name: Kvng Tompkins RN Position: [facility] ED RN W/OE and Tasks Member Role: Primary Care Nurse Name: Rafiq Mñuoz RN Position: [facility] RN Member Role: Primary Care Nurse Name: Justina Walker RN Position: [facility] RN Member Role: Primary Care Nurse Name: Ivone Hidalgo RN Position: [facility] RN Member Role: Primary Care Nurse Name: Mazin Penn MD Position: [facility] Physician - Behavioral Health Member Role: Lifetime Consulting Physician Address: Address: [address] [place] [address]- Name: Kody Lofton Position: [facility] ED TA [facility] Name: Venessa Sosa MD Position: [facility] ED Medicine MD Member Role: Admitting Physician Address: Address: [address] [place] [address]- Name: Dao Edwards MD Position: [facility] Resident Member Role: ED Resident Address: Address: [address] [place] [address] Emergency Medicine [place], [place] [address] Name: Ana Weller RN Position: [facility] ED RN W/OE and Tasks Member Role: Patient Care Provider Care Team Related Persons Name: DORITA MCCOLLUM Address: [address] [place] [address] Name: STEW PECK Address: [address] [facility], [address] Name: LISA PALMA Address: [address] [place] [address]
--- OUTSIDE RECORDS SUMMARY | 2024-06-11 16:49 | XMS_ITS | Continuity of Care Document ---
Author Organization [facility] ter Address [address] [place] [address]- Care Team Providers Care Buffer Copper Name Role Phone Fatoumata Stokes DO Primary Care Physician ( [phone] Encounter [facility] Date(s): 09/04/23 - 09/05/[address] [address]- Encounter Diagnosis Auditory hallucination(Final) - 09/05/23 Abdominal pain(Final) - 09/05/23 Discharge Disposition: A-D/C Home Attending Physician: Sarah [...] 07/19/23 13:48:00 EDT, Route to Pharmacy Electronically, [facility], Partial fill upon patient request ifthe prescription is for a schedule II opioid drug.,... Start Date: 07/19/23 Stop Date: 08/18/23 Status: Ordered cetirizine 10 mg oral tablet = 10 mg, By Mouth, Daily, 0 Refills, Maintenance, 07/05/23 0:27:00 EDT, Tablet, Partial fill upon patient request if the prescription is for a schedule II opioid drug. Start Date: 07/05/23 Status: Ordered docusate-senna 50 mg-187 mg oral tablet 2 tablet, By Mouth, Daily at bedtime, for 14 days, # 28 tablet, 0 Refills, Acute 09/18/23 19:39:00 EST, 09/04/23 19:39:00 EST, Tablet, [facility], Partial fill upon patient request if the prescription is for a schedule II opioid drug., 2 tab... Start Date: 09/04/23 Stop Date: 09/18/23 Status: Ordered ferrous sulfate 325 mg oral [...] 0 Refills, Maintenance, 07/05/23 0:27:00 EDT, Nasal [facility], Partial fill upon patient request if the [...] 0 Refills, Maintenance, 07/19/23 13:49:00 EDT, Capsule, [facility], Partial fill upon patient request if [...] Maintenance,07/19/23 13:53:00 EDT, Route to Pharmacy Electronically, [facility], Partial fill upon patient request if the prescription is for a schedule... Start Date: 07/19/23 Stop Date: 08/18/23 Status: Ordered traZODone 50 mg oral tablet 50 mg, 1, tablet, By Mouth, Daily at bedtime, # 30 tablet, Refills 0, Tot. Refills 0, Maintenance, 07/19/23 13:53:00 EDT, Route to Pharmacy Electronically, [facility], Partial fill upon patient request if [...] 07/19/23 13:50:00 EDT, Route to Pharmacy Electronically, [facility], Partial fill upon patient request if the prescription is for a schedule I... Start Date: 07/19/23 Stop Date: 08/18/23 Status: Ordered ZyPREXA 5 mg oral tablet 5 mg, 1, tablet, By Mouth, Daily in AM, # 30 tablet, Refills 0, Tot. Refills 0, Maintenance, 07/19/23 13:50:00 EDT, Route to Pharmacy Electronically, [facility], Partial fill upon patient request if [...] oldest [Reference Range]: 1 2 3 Height 168 cm (09/04/23 11:49 PM) 168 cm (09/04/23 5:24 PM) Weight 102 kg (09/04/23 11:49 PM) 102 kg (09/04/23 5:24 PM) Oxygen Saturation [94-100 %] 98 % (09/05/23 8:24 AM) 100 % (09/05/23 6:10 AM) 98 % (09/04/23:49 PM) Pulse Rate [55-90 bpm] 86 bpm (09/05/23 8:24 AM) 62 bpm (09/05/23 6:10 AM) 78 bpm (09/04/23:49 PM) Body Mass Index [18.5-24.99 kg/m2] 36.14 kg/m2 *>HHI* (09/04/23 11:49 PM) Blood Pressure [90-138/55-84 mm Hg] 104/59mm Hg (09/05/23 8:24 AM) 103/66mm Hg (09/05/23 6:10 AM) 122/71mm Hg (09/04/23:49 PM) Respiratory Rate [16-30 br/min] 18 br/min (09/05/23 8:24 AM) 16 br/min (09/05/23 6:10 AM) 18 br/min (09/04/23:49 PM) Temperature [96.8-100.4 DegF] 97.6 DegF (09/05/23 8:24 AM) 98.0 DegF (09/05/23 6:10 AM) 97.9 DegF (09/04/23:49 PM) Mode of Delivery (Oxygen) Room air (09/05/23 8:24 AM) Room air (09/05/23 6:10 AM) Room air (09/04/23:49 PM) Blood pressure sites Arm, right (09/04/23 11:49 PM) Arm, right (09/04/23 5:24 PM) Temperature Route Oral (09/05/23 8:24 AM) Oral (09/05/23 6:10 AM) Oral (09/04/23 11:49 PM) Dry Weight 102 kg (09/04/23 11:49 PM) 102 kg (09/04/23 5:24 PM) Social History Social History Type Response Smoking Status 5-9 cigarettes (betw een 1/4 to 1/2 pack)/day in last 30 days; Interested in cessation: No; Patient wants NRT during admission Yes; Other: will accept nicotine gum; entered on: 07/14/23 Sex History and physical note * Event Display: History and Physical Hospital Authored Date: [id number] [place], [place] PSYCHIATRIC HISTORY ASSESS EXAM NAME: LORETTA CELESTIN : 89 MR#: [id number] PCP: ADMITTED: 12/20/15 DATE OF SERVICE: 12/20/15 HPI - Hosp Psych H P Chief Complaint Pt was sent from [facility] ER here for hallunication History of Present Illness 24 yo AA Female with known schizophrenia was seen at [facility] for hallucination. Apparently pt has been lived in care home and sent to [facility] QDAY Haloperidol* (Haldol*) 5 MG PO BID Burna Carbonate SR* (Lithobid*) 300 MG PO QDAY liTHIum Carbonate SR* (Burna Carbonate SR*) 450 MG PO 4PM Discontinued Reported Medications Citalopram* (CeleXA*) 40 MG PO QDAY Benztropine* 0.5 MG PO BID buPROPion SR* 150 MG PO [id number] Trazodone* (Desyrel*) 100 MG PO HS RisperiDONE* [...] 324 MG QDAY 12/20 09 CKD PO Burna Carbonate 300 MG QDAY 12/20 09 AC PO Polyethylene Glycol 17 GM QDAY 12/20 09 CKD PO Benztropine Mesylate 1 MG 0900,17012/19 1700 AC PO Docusate Sodium 100 MG 0900,1700 12/19 1700 AC PO Haloperidol 5 MG 0900,12/19 1700 AC PO Burna Carbonate 450 MG PM 12/19 1700 AC [...] fullly ambulartory Care Level Complexity of Care [id number] Comprehensive history, comprehensive examination, medical decision making of low complexity, at least 20 minutes at the bedside, patient's floor/ unit. ESigned by: YAS GARZA MD Date:12/21/15 Time:1633 / NOT FOR REDISCLOSURE WITHOUT PATIENT'S INFORMED CONSENT Admission evaluation note * Event Display: Admit Notes Authored Date: [id number] [place], [place] PSYCHIATRIC ADMISSION NOTE NAME: LORETTA CELESTIN : 89 HOSPITAL #: [id number] MR #: [id number] CHART LOC: PCP: DICTATING: MARIA R Robin MD DATE OF ADMISSION: 12/20/15 DATE OF SERVICE: 12/21/15 CHIEF COMPLAINT: This 23-year-old woman was admitted to [facility] on 12/20/15 [...] living in a care home. Came to [place] with her grandmother [...] year NAME: LORETTA CELESTIN : 89 HOSP#: [id number] MR#: [id number] CHART LOC: PCP: DICTATING: MARIA R Robin MD PSYCHIATRIC ADMISSION NOTE CONTINUED: unknown. TREATMENT PLAN: Resume outpatient medications, physical exam, collateral contact with community caregivers and social network, safety plan, aftercare plan and observe. 927 T:sn DD:[id number] TD:0745 DT:20151221 TT:0924 JOB:[id number] MICHELLE/SHANNON MARIA R Robin MD ESigned by: Date:12/22/15 Time:642 NOT FOR REDISCLOSURE WITHOUT PATIENT'S INFORMED CONSENT Patient Care team information Care Team Personnel Name: Dean Rivas RN Position: [facility] RN Member Role: Primary Care Nurse Name: Tian Naylor RN Position: [facility] RN Member Role: Primary Care Nurse Name: Jolanta Ace RN Position: [facility] RN Supv Member Role: Primary Care Nurse Name: Fatoumata Stokes DO Position: [facility] Physician - Primary Care Member Role: PCP Address: Address: [address] [place] [address] Adult [facility] Pediatric Medicine [place], [place] [address] Name: Britt Polanco RN Position: [facility] RN Member Role: Primary Care Nurse Name: Awilda Grider RN Position: [facility] RN Member Role: Primary Care Nurse Name: Meagan Darden RN Position: [facility] RN Member Role: Primary Care Nurse Name: Chintan Leach DO Position: [facility] Renal MD Member Role: Lifetime Consulting Physician Address: Address: [address] [place], [place] [address] [place] [address]- [place] Name: Chandler Ye RN Position: [facility] RN Member Role: Primary Care Nurse Name: Apurva Ji RN Position: [facility] ED RN W/OE and Tasks Member Role: Primary Care Nurse Name: Cordelia Matias RN Position: [facility] AMB Nurse Member Role: Primary Care Nurse Name: Riya Moore RN Position: [facility] RN Member [...] Care Nurse Name: Emma Kaminski RN Position: [facility] RN Member Role: Primary Care Nurse Name: Malu Palomo Position: [facility] RN Member Role: Primary Care Nurse Name: Azeb Gusman RN Position: [facility] RN Member Role: Primary Care Nurse Name: Asher Diaz RN Position: [facility] RN Member Role: Primary Care Nurse Name: Kim Cornell RN Position: [facility] RN Member Role: Primary Care Nurse Name: Meredith Martinez RN Position: [facility] RN Member Role: Primary Care Nurse Name: Anika Gotti RN Position: [facility] RN Member Role: Primary Care Nurse Name: Kvng Tompkins RN Position: [facility] ED RN W/OE and Tasks Member Role: Primary Care Nurse Name: Rafiq Muñoz RN Position: [facility] RN Member Role: Primary Care Nurse Name: Justina Walker RN Position: [facility] RN Member Role: Primary Care Nurse Name: Ivone Hidalgo RN Position: [facility] RN Member Role: Primary Care Nurse Name: Mazin Penn MD Position: [facility] Physician - [facility] Member Role: Lifetime Consulting Physician Address: Address: [address] [place] [address]- [place] Name: Theresa Marshall Position: [facility] ED TA [facility] Member Role: Daytime Babysitter Name: Henry Floyd MD Position: [facility] Resident Member Role: ED Resident Address: Address: [address] [place] [address]- Name: Godfrey Garcia RN Position: [facility] ED RN W/OE and Tasks Member Role: Patient Care Provider Name: Sarah Ayala MD Position: [facility] ED Medicine MD Member Role: ED Attending Physician Address: Address: [address] [place] [address]- Care Team Related Persons Name: DORITA MCCOLLUM Address: home [address] [place] [address] Name: STEW PECK Address: home [address] [facility], [address] Name: LISA PALMA Address: home [address] [place] [address]
--- OUTSIDE RECORDS SUMMARY | 2024-06-11 16:49 | XMS_ITS | Continuity of Care Document ---
Author Organization [facility] Address [address] [place] [address]- Care Team Providers Care Photographic Process Worker Name Role Phone Fatoumata Stokes DO Primary Care Physician Encounter [facility] Date(s): 03/09/24 - 04/08/24 [facility] [address] [place], [place] [address] Attending Physician: AdmJada don Admitting Physician: AdmtrJada Referring Physician: Admtr, ArBridgett Allergies, Adverse Reactions, [...] 0 Refills, Maintenance, 02/17/24 9:30:00 EDT, Tablet, [facility], Partial fill upon patient request if [...] Refills, Soft Stop, 12/21/23 15:20:00 EDT, Tablet, [facility], Partial fill upon patient request if [...] 0 Refills, Maintenance, 03/09/24 14:42:00 EDT, Nasal [place], [facility], Partial fill upon patient request if the prescription is for a schedule II opi... Start Date: 03/09/24 Status: Ordered Lidoderm 5% film 1 patch, Topically, Daily, remove patches after 12 hours, # 30 patch, 0 Refills, Maintenance, 03/09/24 14:43:00 EDT, Film, [facility], Partial fill upon patient request if [...] 02/13/24 16:31:00 EDT, Route to Pharmacy Electronically, [facility], 163, cm, 02/11/24 1:23:00 EDT, Height, [...] 0 Refills, Maintenance, 12/23/23 17:55:00 EDT, ECCapsule, [facility], Partial fill upon patient request if [...] Maintenance,07/19/23 13:53:00 EDT, Route to Pharmacy Electronically, [facility], Partial fill upon patient request if the prescription is for a schedule... Start Date: 07/19/23 Stop Date: 08/18/23 Status: Ordered Provera 10 mg oral tablet 10 mg, 1, tablet, By Mouth, Daily, call the office at [phone] if you do not get a menstrual cycle., # 10 tablet, Refills 0, Tot. Refills 0, Maintenance, 12/21/23 15:20:00 EDT, Route to Pharmacy Electronically, [facility], Partial fill u... Start Date: 12/21/23 Stop Date: 12/31/23 Status: Ordered traZODone 50 mg oral tablet 50 mg, 1, tablet, By Mouth, Daily at bedtime, # 30 tablet, Refills 0, Tot. Refills 0, Maintenance, 07/19/23 13:53:00 EDT, Route to Pharmacy Electronically, [facility], Partial fill upon patient request if the prescription is for a schedule I... Start Date: 07/19/23 Stop Date: 08/18/23 Status: Ordered Vitamin C 250 mg oral tablet See Instructions, 1 tablet By Mouth every other day with iron Daily at 9am, # 45 tablet, 11 Refills, Maintenance, 02/17/24 9:32:00 EDT, [facility], 163, cm, 02/17/24 9:01:00 EDT, Height, 96.5, kg, 02/11/24 1:23:00 EDT, Dry Weight Start Date: 02/17/24 Status: Ordered Vitamin C 250 mg oral tablet 1 tablet, By Mouth, Daily in AM, AT 9AM., # 30 tablet, 0 Refills, Maintenance, 02/02/24 15:05:00 EDT, [facility], 163, cm, 01/24/24 9:01:00 EDT, [...] Display: History and Physical Hospital Authored Date: [id number] [place], [place] PSYCHIATRIC HISTORY ASSESS EXAM NAME: LORETTA CELESTIN : 89 MR#: [id number] PCP: ADMITTED: 12/20/15 DATE OF SERVICE: 12/20/15 HPI - Hosp Psych H P Chief Complaint Pt was sent from [facility] here for hallunication History of Present Illness 24 yo AA Female with known schizophrenia was seen at [facility] for hallucination. Apparently pt has been lived in skilled nursing and sent to [facility] for acute exacerbation [...] QDAY Haloperidol* (Haldol*) 5 MG PO BID Newnan Carbonate SR* (Lithobid*) 300 MG PO QDAY liTHIum Carbonate SR* (Newnan Carbonate SR*) 450 MG PO 4PM Discontinued Reported Medications Citalopram* (CeleXA*) 40 MG PO QDAY Benztropine* 0.5 MG PO BID buPROPion SR* 150 MG PO [id number] Trazodone* (Desyrel*) 100 MG PO HS RisperiDONE* [...] 324 MG QDAY 12/20 0900 CKD PO Newnan Carbonate 300 MG QDAY 12/20 0900 AC PO Polyethylene Glycol 17 GM QDAY 12/20 0900 CKD PO Benztropine Mesylate 1 MG 0900,1700 12/19 1700 AC PO Docusate Sodium 100 MG 0900,1700 12/19 1700 AC PO Haloperidol 5 MG 0900,1700 12/19 1700 AC PO Newnan Carbonate 450 MG PM 12/19 1700 AC [...] fullly ambulartory Care Level Complexity of Care V72602 Comprehensive history, comprehensive examination, medical decision making of low complexity, at least 20 minutes at the bedside, patient's floor/ unit. ESigned by: YAS GARZA MD Date:12/21/15 Time:1633 / NOT FOR REDISCLOSURE WITHOUT PATIENT'S INFORMED CONSENT Admission evaluation note * Event Display: Admit Notes Authored Date: [id number] [place], [place] PSYCHIATRIC ADMISSION NOTE NAME: LORETTA CELESTIN : 89 HOSPITAL #: [id number] MR #: [id number] CHART LOC: PCP: DICTATING: MARIA R Robin MD DATE OF ADMISSION: 12/20/15 DATE OF SERVICE: 12/21/15 CHIEF COMPLAINT: This 23-year-old woman was admitted to [facility] on 12/20/15 on a Conditional [...] living in a skilled nursing. Came to [place] with her grandmother in [...] year NAME: LORETTA CELESTIN : 89 HOSP#: [id number] MR#: [id number] CHART LOC: PCP: DICTATING: MARIA R Robin MD PSYCHIATRIC ADMISSION NOTE CONTINUED: unknown. TREATMENT PLAN: Resume outpatient medications, physical exam, collateral contact with community caregivers and social network, safety plan, aftercare plan and observe. 927 T: DD:[id number] TD:0745 DT:20151221 TT:0924 JOB:[id number] MICHELLE/SHANNON MARIA R Robin MD ESigned by: Date:12/22/15 Time:0643 NOT FOR REDISCLOSURE WITHOUT PATIENT'S INFORMED CONSENT Patient Care team information Care Team Personnel Name: Dean Rivas RN Position: [facility] RN Member Role: Primary Care Nurse Name: Jolanta Ace RN Position: [facility] RN Supv Member Role: Primary Care Nurse Name: Fatoumata Stokes DO Position: [facility] Physician - Primary Care Member Role: PCP Address: Address: [address] [place] [address] Adult [place] [address]- Name: Awilda Grider RN Position: [facility] RN Member Role: Primary Care Nurse Name: Meagan Darden RN Position: [facility] RN Member Role: Primary Care Nurse Name: Chintan Leach DO Position: [facility] Renal MD Member Role: Lifetime Consulting Physician Address: Address: [address] [place] [address] [address] [facility] [place] [address]- Name: Chandler Ye RN Position: [facility] RN Member Role: Primary Care Nurse Name: Apurva Ji RN Position: [facility] ED RN W/OE and Tasks Member Role: Primary Care Nurse Name: Cordelia Matias RN Position: [facility] AMB Nurse Member Role: Primary Care Nurse Name: Riya Moore RN Position: [facility] RN Member Role: Primary Care Nurse Name: Radha Gutierrez Position: [facility] Outreach Member Role: Primary Care Nurse Name: Keenan Vincent RN Position: [facility] SN RN Member Role: Primary Care Nurse Name: Sasha Patricio RN Position: [facility] RN Member Role: Primary Care Nurse Name: Virgie Angel RN Position: [facility] RN Member Role: Primary Care Nurse Name: Malu Palomo Position: [facility] RN Member Role: Primary Care Nurse Name: Azeb Gusman RN Position: [facility] RN Member Role: Primary Care Nurse Name: Kim Cornell RN Position: [facility] RN Member Role: Primary Care Nurse Name: Meredith Martinez RN Position: [facility] RN Member Role: Primary Care Nurse Name: Anika Gotti RN Position: [facility] RN Member Role: Primary Care Nurse Name: Kvng Tompkins RN Position: [facility] ED RN W/OE and Tasks Member Role: Primary Care Nurse Name: Rafiq Muñoz RN Position: [facility] RN Member Role: Primary Care Nurse Name: Justina Walker RN Position: [facility] RN Member Role: Primary Care Nurse Name: Ivone Hidalgo RN Position: [facility] RN Member Role: Primary Care Nurse Name: Mazin Penn MD Position: [facility] Physician - Behavioral Health Member Role: Lifetime Consulting Physician Address: Address: [address] [place] [address]- [place] Care Team Related Persons Name: DORITA MCCOLLUM Address: [address] [place] [address] Name: STEW PECK Address: home [address] [place] [address] Name: LISA PALMA Address: home [address] [place] [address]
--- OUTSIDE RECORDS SUMMARY | 2024-06-11 16:49 | XMS_ITS | Continuity of Care Document ---
Author Organization [facility] Address [address] [place] [address]- Care Team Providers Care Development Technical Lead Name Role Phone Fatoumata Stokes DO Primary Care Physician ( [phone] Encounter [facility] Date(s): 08/25/23 - 09/24/23 [facility] [address], [place] [address] Allergies, Adverse Reactions, Alerts [...] 0 Refills, Maintenance, 07/05/23 0:27:00 EDT, Nasal [place], Partial fill upon patient request if the [...] 0 Refills, Maintenance, 07/19/23 13:49:00 EDT, Capsule, [facility], Partial fill upon patient request if [...] Maintenance,07/19/23 13:53:00 EDT, Route to Pharmacy Electronically, [facility], Partial fill upon patient request if the prescription is for a schedule... Start Date: 07/19/23 Stop Date: 08/18/23 Status: Ordered traZODone 50 mg oral tablet 50 mg, 1, tablet, By Mouth, Daily at bedtime, # 30 tablet, Refills 0, Tot. Refills 0, Maintenance, 07/19/23 13:53:00 EDT, Route to Pharmacy Electronically, [facility], Partial fill upon patient request if [...] 07/19/23 13:50:00 EDT, Route to Pharmacy Electronically, [facility], Partial fill upon patient request if [...] Display: History and Physical Hospital Authored Date: [id number] [place], [place] PSYCHIATRIC HISTORY ASSESS EXAM NAME: LORETTA CELESTIN : 89 MR#: [id number] PCP: ADMITTED: 12/20/15 DATE OF SERVICE: 12/20/15 HPI - Hosp Psych H P Chief Complaint Pt was [place] [facility] [place] History of Present Illness 24 yo AA Female with known schizophrenia was seen at [facility] for hallucination. Apparently pt has been lived in shelter and sent to [facility] for acute exacerbation of [...] QDAY Haloperidol* (Haldol*) 5 MG PO BID [place] Carbonate SR* (Lithobid*) 300 MG PO QDAY liTHIum Carbonate SR* ([place] Carbonate SR*) 450 MG PO 4PM Discontinued Reported Medications Citalopram* (CeleXA*) 40 MG PO QDAY Benztropine* 0.5 MG PO BID buPROPion SR* 150 MG PO [id number] Trazodone* (Desyrel*) 100 MG PO HS RisperiDONE* [...] 324 MG QDAY 12/20 09 CKD PO [place] Carbonate 300 MG QDAY 12/20 09 AC PO Polyethylene Glycol 17 GM QDAY 12/20 09 CKD PO Benztropine Mesylate 1 MG 0900,12/19 1700 AC PO Docusate Sodium 100 MG 0900,12/19 1700 AC PO Haloperidol 5 MG 0900,12/19 1700 AC PO [place] Carbonate 450 MG PM 12/19 1700 AC [...] fullly ambulartory Care Level Complexity of Care [id number] Comprehensive history, comprehensive examination, medical decision making of low complexity, at least 20 minutes at the bedside, patient's floor/ unit. ESigned by: YAS GARZA MD Date:12/21/15 Time:1633 / NOT FOR REDISCLOSURE WITHOUT PATIENT'S INFORMED CONSENT Admission evaluation note * Event Display: Admit Notes Authored Date: [id number] [place], [place] PSYCHIATRIC ADMISSION NOTE NAME: LORETTA CELESTIN : 89 HOSPITAL #: [id number] MR #: [id number] CHART LOC: PCP: DICTATING: MARIA R Robin MD DATE OF ADMISSION: 12/20/15 DATE OF SERVICE: 12/21/15 CHIEF COMPLAINT: This 23-year-old woman was admitted to [facility] on 12/20/15 on a Conditional Voluntary [...] is living in a shelter. Came to [place] with her grandmother in [...] year NAME: LORETTA CELESTIN : 89 HOSP#: [id number] MR#: [id number] CHART LOC: PCP: DICTATING: MARIA R Robin MD PSYCHIATRIC ADMISSION NOTE CONTINUED: unknown. TREATMENT PLAN: Resume outpatient medications, physical exam, collateral contact with community caregivers and social network, safety plan, aftercare plan and observe. 927 T:sn DD:[id number] TD:0745 DT:20151221 TT:0924 JOB:[id number] MICHELLE/SHANNON MARIA R Robin MD ESigned by: Date:12/22/15 Time:642 NOT FOR REDISCLOSURE WITHOUT PATIENT'S INFORMED CONSENT Patient Care team information Care Team Personnel Name: Dean Rivas RN Position: [facility] RN Member Role: Primary Care Nurse Name: Jolanta Ace RN Position: [facility] STEPHAN Supv Member Role: Primary Care Nurse Name: Fatoumata Stokes DO Position: [facility] Physician - Primary Care Member Role: PCP Address: Address: [address] [place] [address] Adult [place] [address]- Name: Britt Polanco RN Position: S RN Member Role: Primary Care Nurse Name: Awilda Grider RN Position: S RN Member Role: Primary Care Nurse Name: Meagan Darden RN Position: [facility] RN Member Role: Primary Care Nurse Name: Chintan Leach DO Position: [facility] Renal MD Member Role: Lifetime Consulting Physician Address: Address: [address] [place] [address] [address] [facility] [place] [address]- Name: Chandler Ye RN Position: [facility] RN Member Role: Primary Care Nurse Name: Apurva Ji RN Position: [facility] ED RN W/OE and Tasks Member Role: Primary Care Nurse Name: Cordelia Matias RN Position: [facility] AMB Nurse Member Role: Primary Care Nurse Name: Riya Moore RN Position: [facility] RN Member Role: Primary Care Nurse Name: Radha Gutierrez Position: [facility] Outreach Member Role: Primary Care Nurse Name: Keenan Vincent RN Position: [facility] SN RN Member Role: Primary Care Nurse Name: Sasha Patricio RN Position: [facility] RN Member Role: Primary Care Nurse Name: Virgie Angel Position: [facility] RN Member Role: Primary Care Nurse Name: Emma Kaminski RN Position: [facility] RN Member Role: Primary Care Nurse Name: Malu Palomo Position: [facility] RN Member Role: Primary Care Nurse Name: Azeb Gusman RN Position: [facility] RN Member Role: Primary Care Nurse Name: Asher Diaz RN Position: [facility] RN Member Role: Primary Care Nurse Name: Kim Cornell RN Position: [facility] RN Member Role: Primary Care Nurse Name: Meredith Martinez RN Position: [facility] RN Member Role: Primary Care Nurse Name: Anika Gotti RN Position: [facility] RN Member Role: Primary Care Nurse Name: Kvng Tompkins RN Position: [facility] ED RN W/OE and Tasks Member Role: Primary Care Nurse Name: Rafiq Muñoz RN Position: [facility] RN Member Role: Primary Care Nurse Name: Justina Walker RN Position: [facility] RN Member Role: Primary Care Nurse Name: Ivone Hidalgo RN Position: [facility] RN Member Role: Primary Care Nurse Name: Mazin [place] MD Position: [facility] Physician - Behavioral Health Member Role: Lifetime Consulting Physician Address: Address: [address] [place] [address] [place] Care Team Related Persons Name: DORITA MCCOLLUM Address: [address] [place] [address] Name: STEW PECK Address: home [address] [facility], [address] Name: LISA PALMA Address: home [address] [place] [address]
--- OUTSIDE RECORDS SUMMARY | 2024-06-11 16:49 | XMS_ITS | Continuity of Care Document ---
Author Organization [facility] Address [address] [place] [address]- Care Team Providers Care Precision Devices Inspector/Tester Name Role Phone Fatoumata Stokes DO Primary Care Physician Encounter [facility] [place] 02/10/24 - 03/11/24 [facility] [address] [place] [address]- Attending Physician: Jada Torres Admitting Physician: Jada [...] 0 Refills, Maintenance, 02/17/24 9:30:00 EDT, Tablet, [facility], Partial fill upon patient request if [...] Refills, Soft Stop, 12/21/23 15:20:00 EDT, Tablet, [facility], Partial fill upon patient request if [...] 0 Refills, Maintenance, 03/09/24 14:42:00 EDT, Nasal [place], [facility], Partial fill upon patient request if the prescription is for a schedule II opi... Start Date: 03/09/24 Status: Ordered Lidoderm 5% film 1 patch, Topically, Daily, remove patches after 12 hours, # 30 patch, 0 Refills, Maintenance, 03/09/24 14:43:00 EDT, Film, [facility], Partial fill upon patient request if [...] 02/13/24 16:31:00 EDT, Route to Pharmacy Electronically, [facility], 163, cm, 02/11/24 1:23:00 EDT, Height, [...] 0 Refills, Maintenance, 12/23/23 17:55:00 EDT, ECCapsule, [facility], Partial fill upon patient request if [...] Maintenance,07/19/23 13:53:00 EDT, Route to Pharmacy Electronically, [facility], Partial fill upon patient request if the prescription is for a schedule... Start Date: 07/19/23 Stop Date: 08/18/23 Status: Ordered Provera 10 mg oral tablet 10 mg, 1, tablet, By Mouth, Daily, call the office at [phone] if you do not get a menstrual cycle., # 10 tablet, Refills 0, Tot. Refills 0, Maintenance, 12/21/23 15:20:00 EDT, Route to Pharmacy Electronically, [facility], Partial fill u... Start Date: 12/21/23 Stop Date: 12/31/23 Status: Ordered traZODone 50 mg oral tablet 50 mg, 1, tablet, By Mouth, Daily at bedtime, # 30 tablet, Refills 0, Tot. Refills 0, Maintenance, 07/19/23 13:53:00 EDT, Route to Pharmacy Electronically, [facility], Partial fill upon patient request if the prescription is for a schedule I... Start Date: 07/19/23 Stop Date: 08/18/23 Status: Ordered Vitamin C 250 mg oral tablet See Instructions, 1 tablet By Mouth every other day with iron Daily at 9am, # 45 tablet, 11 Refills, Maintenance, 02/17/24 9:32:00 EDT, [facility], 163, cm, 02/17/24 9:01:00 EDT, Height, 96.5, kg, 02/11/24 1:23:00 EDT, Dry Weight Start Date: 02/17/24 Status: Ordered Vitamin C 250 mg oral tablet 1 tablet, By Mouth, Daily in AM, AT 9AM., # 30 tablet, 0 Refills, Maintenance, 02/02/24 15:05:00 EDT, [facility], 163, cm, 01/24/24 9:01:00 EDT, Height, 100.2, kg, 10/17/23 16:02:00 EST, Dry Weight Start Date: 02/02/24 Status: Ordered ZyPREXA 10 mg oral tablet 10 mg, 1, tablet, By Mouth, Daily at bedtime, # 30 tablet, Refills 0, Tot. Refills 0, Maintenance, 07/19/23 13:50:00 EDT, Route to Pharmacy Electronically, [facility], Partial fill upon patient request [...] Display: History and Physical Hospital Authored Date: [id number] [place], [place] PSYCHIATRIC HISTORY ASSESS EXAM NAME: LORETTA CELESTIN : 89 MR#: [id number] PCP: ADMITTED: 12/20/15 DATE OF SERVICE: 12/20/15 HPI - Hosp Psych H P Chief Complaint Pt was [place] [facility] [place] hall[place] History of Present Illness 24 yo AA Female with known schizophrenia was seen at [facility] for hallucination. Apparently pt has been lived in care home and [facility] QDAY Haloperidol* (Haldol*) 5 MG PO BID [place] Carbonate SR* (Lithobid*) 300 MG PO QDAY liTHIum Carbonate SR* ([place] Carbonate SR*) 450 MG PO 4PM Discontinued Reported Medications Citalopram* (CeleXA*) 40 MG PO QDAY Benztropine* 0.5 MG PO BID buPROPion SR* 150 MG PO [id number] Trazodone* (Desyrel*) 100 MG PO HS RisperiDONE* [...] 324 MG QDAY 12/20 0900 CKD PO [place] Carbonate 300 MG QDAY 12/20 0900 AC PO Polyethylene Glycol 17 GM QDAY 12/20 0900 CKD PO Benztropine Mesylate 1 MG 0900,1700 12/19 1700 AC PO Docusate Sodium 100 MG 0900,1700 12/19 1700 AC PO Haloperidol 5 MG 0900,1700 12/19 1700 AC PO [place] Carbonate 450 MG PM 12/19 1700 [...] fullly ambulartory Care Level Complexity of Care [id number] Comprehensive history, comprehensive examination, medical decision making of low complexity, at least 20 minutes at the bedside, patient's floor/ unit. ESigned by: YAS GARZA MD Date:12/21/15 Time:1633 / NOT FOR REDISCLOSURE WITHOUT PATIENT'S INFORMED CONSENT Admission evaluation note * Event Display: Admit Notes Authored Date: [id number] [place], [place] PSYCHIATRIC ADMISSION NOTE NAME: LORETTA CELESTIN : 89 HOSPITAL #: [id number] MR #: [id number] CHART LOC: PCP: DICTATING: MARIA R Robin MD DATE OF ADMISSION: 12/20/15 DATE OF SERVICE: 12/21/15 CHIEF COMPLAINT: This 23-year-old woman was admitted to [facility] on 12/20/15 on a Conditional Voluntary [...] living in a care home. Came to [place] with her grandmother in [...] year NAME: LORETTA CELESTIN : 89 HOSP#: [id number] MR#: [id number] CHART LOC: PCP: DICTATING: MARIA R Robin MD PSYCHIATRIC ADMISSION NOTE CONTINUED: unknown. TREATMENT PLAN: Resume outpatient medications, physical exam, collateral contact with community caregivers and social network, safety plan, aftercare plan and observe. 927 T: DD:[id number] TD:0745 DT:20151221 TT:0924 JOB:[id number] TORIE MARIA R Robin MD ESigned by: Date:12/22/15 Time:0643 NOT FOR REDISCLOSURE WITHOUT PATIENT'S INFORMED CONSENT Patient Care team information Care Team Personnel Name: Dean Rivas RN Position: [facility] RN Member Role: Primary Care Nurse Name: Jolanta Ace RN Position: [facility] RN Supv Member Role: Primary Care Nurse Name: Fatoumata Stokes DO Position: [facility] Physician - Primary Care Member Role: PCP Address: Address: [address] [place] [address] Adult [place] [address]- Name: Awilda Grider RN Position: [facility] RN Member Role: Primary Care Nurse Name: Meagan Darden RN Position: [facility] RN Member Role: Primary Care Nurse Name: Chintan Leach DO Position: [facility] Renal MD Member Role: Lifetime Consulting Physician Address: Address: [address] [place] [address] [address] [facility] [place] [address]- Name: Chandler Ye RN Position: [facility] RN Member Role: Primary Care Nurse Name: Apurva Ji RN Position: [facility] ED RN W/OE and Tasks Member Role: Primary Care Nurse Name: Cordelia Matias RN Position: [facility] AMB Nurse Member Role: Primary Care Nurse Name: Riya Moore RN Position: [facility] RN Member Role: Primary Care Nurse Name: Radha Gutierrez Position: [facility] Outreach Member Role: Primary Care Nurse Name: Keenan Vincent RN Position: [facility] SN RN Member Role: Primary Care Nurse Name: Sasha Patricio RN Position: [facility] RN Member Role: Primary Care Nurse Name: Virgie Angel RN Position: [facility] RN Member Role: Primary Care Nurse Name: Malu Palomo Position: [facility] RN Member Role: Primary Care Nurse Name: Azeb Gusman RN Position: [facility] RN Member Role: Primary Care Nurse Name: Asher Diaz RN Position: [facility] RN Member Role: Primary Care Nurse Name: Kim Cornell RN Position: [facility] RN Member Role: Primary Care Nurse Name: Meredith Martinez RN Position: [facility] RN Member Role: Primary Care Nurse Name: Anika Gotti RN Position: [facility] RN Member Role: Primary Care Nurse Name: Kvng Tompkins RN Position: [facility] ED RN W/OE and Tasks Member Role: Primary Care Nurse Name: Rafiq Muñoz RN Position: [facility] RN Member Role: Primary Care Nurse Name: Justina Walker RN Position: [facility] RN Member Role: Primary Care Nurse Name: Ivone Hidalgo RN Position: [facility] RN Member Role: Primary Care Nurse Name: Mazin [place] MD Position: [facility] Physician - Behavioral Health Member Role: Lifetime Consulting Physician Address: Address: [address] [place] [address]- [place] Care Team Related Persons Name: VIRIDIANA MCCOLLUMOPATRA Address: [address] [place] [address] Name: STEW PECK Address: [address] [place] [address] Name: LISA PALMA Address: [address] [place] [address]
--- OUTSIDE RECORDS SUMMARY | 2024-06-11 16:49 | XMS_ITS | Continuity of Care Document ---
Author Organization [facility] Address [address], [address] [place] [address]- Care Team Providers Care Liturgical Music Director Name Role Phone Fatoumata Stokes DO Primary Care Physician [place] [facility] [place]): 12/19[place]23 - 04/01/24 [facility] Cynthia Ovalless [facility] [address], 4th [place] [address]- Attending Physician: Lexx TORRES, Ashley Rock Referring Physician: Basia Rojas Allergies, Adverse Reactions, [...] 0 Refills, Maintenance, 02/17/24 9:30:00 EDT, Tablet, [facility], Partial fill upon patient request if [...] Refills, Soft Stop, 12/21/23 15:20:00 EDT, Tablet, [facility], Partial fill upon patient request if [...] 0 Refills, Maintenance, 03/09/24 14:42:00 EDT, Nasal [place], [facility], Partial fill upon patient request if the prescription is for a schedule II opi... Start Date: 03/09/24 Status: Ordered Lidoderm 5% film 1 patch, Topically, Daily, remove patches after 12 hours, # 30 patch, 0 Refills, Maintenance, 03/09/24 14:43:00 EDT, Film, [facility], Partial fill upon patient request if [...] 02/13/24 16:31:00 EDT, Route to Pharmacy Electronically, [facility], 163, cm, 02/11/24 1:23:00 EDT, Height, [...] 0 Refills, Maintenance, 12/23/23 17:55:00 EDT, ECCapsule, [facility], Partial fill upon patient request if [...] Maintenance,07/19/23 13:53:00 EDT, Route to Pharmacy Electronically, [facility], Partial fill upon patient request if the prescription is for a schedule... Start Date: 07/19/23 Stop Date: 08/18/23 Status: Ordered Provera 10 mg oral tablet 10 mg, 1, tablet, By Mouth, Daily, call the office at [phone] if you do not get a menstrual cycle., # 10 tablet, Refills 0, Tot. Refills 0, Maintenance, 12/21/23 15:20:00 EDT, Route to Pharmacy Electronically, [facility], Partial fill u... Start Date: 12/21/23 Stop Date: 12/31/23 Status: Ordered traZODone 50 mg oral tablet 50 mg, 1, tablet, By Mouth, Daily at bedtime, # 30 tablet, Refills 0, Tot. Refills 0, Maintenance, 07/19/23 13:53:00 EDT, Route to Pharmacy Electronically, [facility], Partial fill upon patient request if the prescription is for a schedule I... Start Date: 07/19/23 Stop Date: 08/18/23 Status: Ordered Vitamin C 250 mg oral tablet See Instructions, 1 tablet By Mouth every other day with iron Daily at 9am, # 45 tablet, 11 Refills, Maintenance, 02/17/24 9:32:00 EDT, [facility], 163, cm, 02/17/24 9:01:00 EDT, Height, 96.5, kg, 02/11/24 1:23:00 EDT, Dry Weight Start Date: 02/17/24 Status: Ordered Vitamin C 250 mg oral tablet 1 tablet, By Mouth, Daily in AM, AT 9AM., # 30 tablet, 0 Refills, Maintenance, 02/02/24 15:05:00 EDT, [facility], 163, cm, 01/24/24 9:01:00 EDT, Height, 100.2, kg, 10/17/23 16:02:00 EST, Dry Weight Start Date: 02/02/24 Status: Ordered ZyPREXA 10 mg oral tablet 10 mg, 1, tablet, By Mouth, Daily at bedtime, # 30 tablet, Refills 0, Tot. Refills 0, Maintenance, 07/19/23 13:50:00 EDT, Route to Pharmacy Electronically, [facility], Partial fill upon patient request if the prescription is for a schedule I... Start Date: 07/19/23 Stop Date: 11/23/23 Status: Ordered Problem List Condition Confirmation Course [...] Display: History and Physical Hospital Authored Date: [id number] [place], [place] PSYCHIATRIC HISTORY ASSESS EXAM NAME: LORETTA CELESTIN : [birth year] MR#: [id number] PCP: ADMITTED: 12/20/15 DATE OF SERVICE: 12/20/15 HPI - Hosp Psych H P Chief Complaint Pt was sent from [facility] here for hallunication History of Present Illness 24 yo AA Female with known schizophrenia was seen at [facility] for halluc[place]. Apparently pt has been lived in [facility] and sent to [facility] for acute exacerbation of her underline schizophrenia. [...] QDAY Haloperidol* (Haldol*) 5 MG PO BID [place] Carbonate SR* (Lithobid*) 300 MG PO QDAY liTHIum Carbonate SR* ([place] Carbonate SR*) 450 MG PO 4PM Discontinued Reported Medications Citalopram* (CeleXA*) 40 MG PO QDAY Benztropine* 0.5 MG PO BID buPROPion SR* 150 MG PO [id number] Trazodone* (Desyrel*) 100 MG PO HS RisperiDONE* [...] 324 MG QDAY 12/20 0900 CKD PO [place] Carbonate 300 MG QDAY 12/20 0900 AC PO Polyethylene Glycol 17 GM QDAY 12/20 0900 CKD PO Benztropine Mesylate 1 MG 0900,1700 12/19 1700 AC PO Docusate Sodium 100 MG 0900,1700 12/19 1700 AC PO Haloperidol 5 MG 0900,1700 12/19 1700 AC PO [place] Carbonate 450 MG PM 12/19 1700 AC [...] fullly ambulartory Care Level Complexity of Care [id number] Comprehensive history, comprehensive examination, medical decision making of low complexity, at least 20 minutes at the bedside, patient's floor/ unit. ESigned by: YAS GARZA MD Date:12/21/15 Time:1633 / NOT FOR REDISCLOSURE WITHOUT PATIENT'S INFORMED CONSENT Admission evaluation note * Event Display: Admit Notes Authored Date: [id number] [place], [place] PSYCHIATRIC ADMISSION NOTE NAME: LORETTA CELESTIN : 89 HOSPITAL #: [id number] MR #: [id number] CHART LOC: PCP: DICTATING: MARIA R Robin MD DATE OF ADMISSION: 12/20/15 DATE OF SERVICE: 12/21/15 CHIEF COMPLAINT: This 23-year-old woman was admitted to [facility] on 12/20/15 [...] is living in a mcc. Came to [place] with her grandmother in 2013, was very [...] year NAME: LORETTA CELESTIN : 89 HOSP#: [id number] MR#: [id number] CHART LOC: PCP: DICTATING: MARIA R Robin MD PSYCHIATRIC ADMISSION NOTE CONTINUED: unknown. TREATMENT PLAN: Resume outpatient medications, physical exam, collateral contact with community caregivers and social network, safety plan, aftercare plan and observe. 927 T:sn DD:[id number] TD:0745 DT:20151221 TT:0924 JOB:[id number] MICHELLE/SHANNON MARIA R Robin MD ESigned by: Date:12/22/15 Time:06 NOT FOR REDISCLOSURE WITHOUT PATIENT'S INFORMED CONSENT Patient Care team information Care Team Personnel Name: Dean Rivas RN Position: [facility] RN Member Role: Primary Care Nurse Name: Jolanta Ace RN Position: [facility] RN Supv Member Role: Primary Care Nurse Name: Fatoumata Stokes DO Position: [facility] Physician - Primary Care Member Role: PCP Address: Address: [address] [place] [address] Adult & [place] [address]- [place] Name: Awilda Grider RN Position: [facility] RN Member Role: Primary Care Nurse Name: Meagan Darden RN Position: [facility] RN Member Role: Primary Care Nurse Name: Chintan Leach DO Position: [facility] Renal MD Member Role: Lifetime Consulting Physician Address: Address: [address] [place], [place] [address] [place] [address]- Name: Chandler Ye RN Position: [facility] RN Member Role: Primary Care Nurse Name: Apurva Ji RN Position: [facility] ED RN W/OE and Tasks Member Role: Primary Care Nurse Name: Cordelia Matias RN Position: [facility] AMB Nurse Member Role: Primary Care Nurse Name: Riya Moore RN Position: [facility] RN Member Role: Primary Care Nurse Name: Radha Gutierrez Position: [facility] Outreach Member Role: Primary Care Nurse Name: Keenan Vincent RN Position: [facility] SN RN Member Role: Primary Care Nurse Name: Sasha Patricio RN Position: [facility] RN Member Role: Primary Care Nurse Name: Virgie Angel RN Position: [facility] RN Member Role: Primary Care Nurse Name: Malu Palomo Position: [facility] RN Member Role: Primary Care Nurse Name: Azeb Gusman RN Position: [facility] RN Member Role: Primary Care Nurse Name: Kim Cornell RN Position: [facility] RN Member Role: Primary Care Nurse Name: Meredith Martinez RN Position: [facility] RN Member Role: Primary Care Nurse Name: Anika Gotti RN Position: [facility] RN Member Role: Primary Care Nurse Name: Kvng Tompkins RN Position: [facility] ED RN W/OE and Tasks Member Role: Primary Care Nurse Name: Rafiq Muñoz RN Position: S RN Member Role: Primary Care Nurse Name: Justina Walker RN Position: S RN Member Role: Primary Care Nurse Name: Ivone Hidalgo RN Position: S RN Member Role: Primary Care Nurse Name: Mazin Penn MD Position: [facility] Physician - Behavioral Health Member Role: Lifetime Consulting Physician Address: Address: [address] [place] [address]- [place] Care Team Related Persons Name: DORITA MCCOLLUM Address: [address] [place] [address] Name: STEW PECK Address: home [address] [place] [address] Name: LISA PALMA Address: [address] [place] [address]
--- OUTSIDE RECORDS SUMMARY | 2024-06-11 16:49 | XMS_ITS | Continuity of Care Document ---
Author Organization [facility] Address [address] [place] [address]- Care Team Providers Care Bookseamer Blindstitch Name Role Phone Fatoumata Stokes DO Primary Care Physician Encounter [facility] Date(s): 03/20/24 - 05/02/24 [facility] [address] [place] [address]- Attending Physician: Henry Rogers MD Admitting Physician: Henry Rogers MD Referring Physician: Golden Marshall MD Allergies, Adverse Reactions, Alerts Substance Reaction [...] 0 Refills, Maintenance, 02/17/24 9:30:00 EDT, Tablet, [facility], Partial fill upon patient request if [...] Refills, Soft Stop, 04/09/24 12:02:00 EDT, Tablet, [facility], Partial fill upon patient request if [...] 0 Refills, Maintenance, 03/09/24 14:42:00 EDT, Nasal [place], [facility], Partial fill upon patient request if the prescription is for a schedule II opi... Start Date: 03/09/24 Status: Ordered lidocaine 5% topical film 1 patch, Topically, Daily, INSTR:REMOVE PATCHES AFTER 12 HOURS, # 30 each, 0 Refills, Maintenance, 04/26/24 17:29:00 EDT, [facility], 30, APPLY 1 PATCH TOPICALLY DAILY,INSTR:REMOVE [...] Replace Required Details, Route to Pharmacy Electronically, [facility], 163, cm, 04/09/24 11:20:00 EDT, Height, [...] 0 Refills, Maintenance, 04/25/24 10:05:00 EDT, ECCapsule, [facility], Partial fill upon patient request if [...] By Mouth, Daily, call the office at [phone] if you do not get a menstrual [...] 07/19/23 13:53:00 EDT, Route to Pharmacy Electronically, [facility], Partial fill upon patient request if the prescription is for a schedule I... Start Date: 07/19/23 Stop Date: 08/18/23 Status: Ordered Vitamin C 250 mg oral tablet See Instructions, 1 tablet By Mouth every other day with iron Daily at 9am, # 45 tablet, 11 Refills, Maintenance, 02/17/24 9:32:00 EDT, [facility], 163, cm, 02/17/24 9:01:00 EDT, Height, 96.5, kg, 02/11/24 1:23:00 EDT, Dry Weight Start Date: 02/17/24 Status: Ordered Vitamin C 250 mg oral tablet 1 tablet, By Mouth, Daily in AM, AT 9AM., # 30 tablet, 0 Refills, Maintenance, 02/02/24 15:05:00 EDT, [facility], 163, cm, 01/24/24 9:01:00 EDT, Height, 100.2, kg, 10/17/23 16:02:00 EST, Dry Weight Start Date: 02/02/24 Status: Ordered ZyPREXA 10 mg oral tablet 10 mg, 1, tablet, By Mouth, Daily at bedtime, # 30 tablet, Refills 0, Tot. Refills 0, Maintenance, 07/19/23 13:50:00 EDT, Route to Pharmacy Electronically, [facility] [...] Display: History and Physical Hospital Authored Date: [id number] [place], [place] PSYCHIATRIC HISTORY ASSESS EXAM NAME: LORETTA CELESTIN : [birth year] MR#: [id number] PCP: ADMITTED: 12/20/15 DATE OF SERVICE: 12/20/15 HPI - Hosp Psych H P Chief Complaint Pt was sent from [facility] here for hallunication History of Present Illness 24 yo AA Female with known schizophrenia was seen at [facility] for hallucination. Apparently pt has been lived in [facility] and [facility] to [facility] [...] QDAY Haloperidol* (Haldol*) 5 MG PO BID [place] Carbonate SR* (Lithobid*) 300 MG PO QDAY liTHIum Carbonate SR* ([place] Carbonate SR*) 450 MG PO 4PM Discontinued Reported Medications Citalopram* (CeleXA*) 40 MG PO QDAY Benztropine* 0.5 MG PO BID buPROPion SR* 150 MG PO [id number] Trazodone* (Desyrel*) 100 MG PO HS RisperiDONE* [...] 324 MG QDAY 12/20 0900 CKD PO [place] Carbonate 300 MG QDAY 12/20 0900 AC PO Polyethylene Glycol 17 GM QDAY 12/20 0900 CKD PO Benztropine Mesylate 1 MG 0900,1700 12/19 1700 AC PO Docusate Sodium 100 MG 0900,1700 12/19 1700 AC PO Haloperidol 5 MG 0900,17012/19 1700 AC PO [place] Carbonate 450 MG PM 12/19 1700 AC [...] fullly ambulartory Care Level Complexity of Care [id number] Comprehensive history, comprehensive examination, medical decision making of low complexity, at least 20 minutes at the bedside, patient's floor/ unit. ESigned by: YAS GARZA MD Date:12/21/15 Time:1633 / NOT FOR REDISCLOSURE WITHOUT PATIENT'S INFORMED CONSENT Admission evaluation note * Event Display: Admit Notes Authored Date: [id number] [place], [place] PSYCHIATRIC ADMISSION NOTE NAME: LORETTA CELESTIN : 89 HOSPITAL #: [id number] MR #: [id number] CHART LOC: PCP: DICTATING: MARIA R Robin MD DATE OF ADMISSION: 12/20/15 DATE OF SERVICE: 12/21/15 CHIEF COMPLAINT: This 23-year-old woman was admitted to [facility] on [...] is living in a chcf. Came to [place] with her grandmother in [...] year NAME: LORETTA CELESTIN : 89 HOSP#: [id number] MR#: [id number] CHART LOC: PCP: DICTATING: MARIA R Robin MD PSYCHIATRIC ADMISSION NOTE CONTINUED: unknown. TREATMENT PLAN: Resume outpatient medications, physical exam, collateral contact with community caregivers and social network, safety plan, aftercare plan and observe. 927 T:sn DD:[id number] TD:0745 DT:20151221 TT:0924 JOB:[id number] MICHELLE/SHANNON MARIA R Robin MD ESigned by: Date:12/22/15 Time:642 NOT FOR REDISCLOSURE WITHOUT PATIENT'S INFORMED CONSENT Patient Care team information Care Team Personnel Name: Dean Rivas RN Position: [facility] RN Member Role: Primary Care Nurse Name: Jolanta Ace RN Position: [facility] RN Supv Member Role: Primary Care Nurse Name: Fatoumata Stokes DO Position: [facility] Physician - Primary Care Member Role: PCP Address: Address: [address] [place] [address] Adult [place] [address]- [place] Name: Awilda Grider RN Position: [facility] RN Member Role: Primary Care Nurse Name: Meagan Darden RN Position: [facility] RN Member Role: Primary Care Nurse Name: Chintan Leach DO Position: [facility] Renal MD Member Role: Lifetime Consulting Physician Address: Address: [address] [place], [place] [address] [place] [address]- Name: Chandler Ye RN Position: [facility] RN Member Role: Primary Care Nurse Name: Apurva Ji RN Position: [facility] ED RN W/OE and Tasks Member Role: Primary Care Nurse Name: Cordelia Matias RN Position: [facility] AMB Nurse Member Role: Primary Care Nurse Name: Riya Moore RN [facility]: [facility] [...] Care Nurse Name: Virgie Angel RN Position: [facility] RN Member Role: Primary Care Nurse Name: Malu Palomo Position: [facility] RN Member Role: Primary Care Nurse Name: Azeb Gusman RN Position: [facility] RN Member Role: Primary Care Nurse Name: Asher Diaz RN Position: [facility] RN Member Role: Primary Care Nurse Name: Kim Cornell RN Position: [facility] RN Member Role: Primary Care Nurse Name: Meredith Martinez RN Position: [facility] RN Member Role: Primary Care Nurse Name: Anika Gotti RN Position: [facility] RN Member Role: Primary Care Nurse Name: Kvng Tompkins RN Position: [facility] ED RN W/OE and Tasks Member Role: [...] Position: [facility] Physician - Behavioral Health Member Role: Lifetime Consulting Physician Address: Address: [address] [place] [address]- [place] Care Team Related Persons Name: DORITA MCCOLLUM Address: [address] [place] [address] Name: STEW PECK Address: [address] [place] [address] Name: LISA PALMA Address: [address] [place] [address]
--- OUTSIDE RECORDS SUMMARY | 2024-06-11 16:50 | XMS_ITS | Continuity of Care Document ---
Author Organization [facility] Address [address] [place] [address]- Care Team Providers Care Dining Room Busser Name Role Phone Fatoumata Stokes DO Primary Care Physician Encounter [facility] Date(s): 08/29/23 - 09/29/23 [facility] [address] [place], [place] [address] Attending Physician: Laura Celeste NP Allergies, Adverse Reactions, Alerts Substance Reaction Severity [...] 0 Refills, Maintenance, 07/05/23 0:27:00 EDT, Nasal [place], Partial fill upon patient request if the [...] 0 Refills, Maintenance, 07/19/23 13:49:00 EDT, Capsule, [facility], Partial fill upon patient request if [...] Maintenance,07/19/23 13:53:00 EDT, Route to Pharmacy Electronically, [facility], Partial fill upon patient request if the prescription is for a schedule... Start Date: 07/19/23 Stop Date: 08/18/23 Status: Ordered traZODone 50 mg oral tablet 50 mg, 1, tablet, By Mouth, Daily at bedtime, # 30 tablet, Refills 0, Tot. Refills 0, Maintenance, 07/19/23 13:53:00 EDT, Route to Pharmacy Electronically, [facility], Partial fill upon patient request if [...] 07/19/23 13:50:00 EDT, Route to Pharmacy Electronically, [facility], Partial fill upon patient request if [...] Display: History and Physical Hospital Authored Date: [id number] [place], [place] PSYCHIATRIC HISTORY ASSESS EXAM NAME: LORETTA CELESTIN : [birth year] MR#: [id number] PCP: ADMITTED: 12/20/15 DATE OF SERVICE: 12/20/15 HPI - Hosp Psych H P Chief Complaint Pt was sent from [facility] here for hallunication History of Present Illness 24 yo AA Female with known schizophrenia was seen at [facility] for hallucination. Apparently pt has been lived in skilled nursing and sent to [facility] for acute exacerbation of her [...] QDAY Haloperidol* (Haldol*) 5 MG PO BID [place] Carbonate SR* (Lithobid*) 300 MG PO QDAY liTHIum Carbonate SR* ([place] Carbonate SR*) 450 MG PO 4PM Discontinued Reported Medications Citalopram* (CeleXA*) 40 MG PO QDAY Benztropine* 0.5 MG PO BID buPROPion SR* 150 MG PO [id number] Trazodone* (Desyrel*) 100 MG PO HS RisperiDONE* [...] 324 MG QDAY 12/20 899 CKD PO [place] Carbonate 300 MG QDAY 12/20 09 AC PO Polyethylene Glycol 17 GM QDAY 12/20 899 CKD PO Benztropine Mesylate 1 MG 0900,1700 12/19 1700 AC PO Docusate Sodium 100 MG 0900,1700 12/19 1700 AC PO Haloperidol 5 MG 0900,12/19 1700 AC PO [place] Carbonate 450 MG PM 12/19 1700 AC [...] fullly ambulartory Care Level Complexity of Care [id number] Comprehensive history, comprehensive examination, medical decision making of low complexity, at least 20 minutes at the bedside, patient's floor/ unit. ESigned by: YAS GARZA MD Date:12/21/15 Time:1633 / NOT FOR REDISCLOSURE WITHOUT PATIENT'S INFORMED CONSENT Admission evaluation note * Event Display: Admit Notes Authored Date: [id number] [place], [place] PSYCHIATRIC ADMISSION NOTE NAME: LORETTA CELESTIN : 89 [facility] #: [id number] MR #: [id number] CHART LOC: PCP: DICTATING: MARIA R Robin MD DATE OF ADMISSION: 12/20/15 DATE OF SERVICE: 12/21/15 CHIEF COMPLAINT: This 23-year-old woman was admitted to [facility] on 12/20/15 on a Conditional Voluntary [...] living in a skilled nursing. Came to [place] with her grandmother in [...] year NAME: LORETTA CELESTIN : 89 HOSP#: [id number] MR#: [id number] CHART LOC: PCP: DICTATING: MARIA R Robin MD PSYCHIATRIC ADMISSION NOTE CONTINUED: unknown. TREATMENT PLAN: Resume outpatient medications, physical exam, collateral contact with community caregivers and social network, safety plan, aftercare plan and observe. 927 T:sn DD:20151221 TD:0745 DT:20151221 TT:0924 JOB:[id number] MICHELLE/SHANNON MARIA R Robin MD ESigned by: [...] Primary Care Member Role: PCP Address: Address: [address] [place] [address] Adult [place] [address]- Name: Britt Polanco RN Position: S RN Member Role: Primary Care Nurse Name: Awilda Grider RN Position: S RN Member Role: Primary Care Nurse Name: Meagan Darden RN Position: S RN Member Role: Primary Care Nurse Name: Chintan Leach DO Position: [facility] Renal MD Member Role: Lifetime Consulting Physician Address: Address: [address] [place] [address] [address] [facility] [place] [address]- Name: Chandler Ye RN [facility] Name: Rafiq Muñoz RN Position: [facility] RN Member Role: Primary Care Nurse Name: Justina Walker RN Position: [facility] RN Member Role: Primary Care Nurse Name: Ivone Hidalgo RN Position: [facility] RN Member Role: Primary Care Nurse Name: Mazin Penn MD Position: [facility] Physician - [facility] Member Role: Lifetime Consulting Physician Address: Address: [address] [place] [address]- Care Team Related Persons Name: DORITA MCCOLLUM Address: [address] [place] [address] Name: STEW PECK Address: [address] [facility] [address] Name: LISA PALMA Address: [address] [place] [address]
--- OUTSIDE RECORDS SUMMARY | 2024-06-11 16:50 | XMS_ITS | Continuity of Care Document ---
Author Organization [facility] ter Address [address] [place] [address]- Care Team Providers Care Log Deck Tender Name Role Phone Fatoumata Stokes DO Primary Care Physician ( [phone] [place] [facility] [place](s): 03/27/24 - 03/28/[address] [address]- Discharge Disposition: A-D/C Home Attending Physician: Riya Mercado MD Admitting Physician: Riya Mercado MD Referring Physician: Not on Staff, Referring [...] 0 Refills, Maintenance, 02/17/24 9:30:00 EDT, Tablet, [facility], Partial fill upon patient request if [...] Refills, Soft Stop, 12/21/23 15:20:00 EDT, Tablet, [facility], Partial fill upon patient request if [...] 0 Refills, Maintenance, 03/09/24 14:42:00 EDT, Nasal [place], [facility], Partial fill upon patient request if the prescription is for a schedule II opi... Start Date: 03/09/24 Status: Ordered Lidoderm 5% film 1 patch, Topically, Daily, remove patches after 12 hours, # 30 patch, 0 Refills, Maintenance, 03/09/24 14:43:00 EDT, Film, [facility], Partial fill upon patient request if [...] 02/13/24 16:31:00 EDT, Route to Pharmacy Electronically, [facility], 163, cm, 02/11/24 1:23:00 EDT, Height, [...] 0 Refills, Maintenance, 12/23/23 17:55:00 EDT, ECCapsule, [facility], Partial fill upon patient request if [...] By Mouth, Daily, call the office at [phone] if you do not get a menstrual [...] tablet, 11 Refills, Maintenance, 02/17/24 9:32:00 EDT, [facility], 163, cm, 02/17/24 9:01:00 EDT, [...] Exam Date Time Procedure Performing Provider Status 03/27/24 1:33 PM Chest 2 Views Frontal and Lat Harsha Horan; Auth (Verified) Notes: (Chest 2 Views Frontal and Lat) Reason For Exam: Shortness of Breath, Fever;Other: RESULT: Chest 2 Views Frontal and Lat Chest 2 Views Frontal and Lat Hx of Present Illness: [facility] with c o sudden onset of midsternalCP that began today, however pt states she has this pain daily. Pt states I feel like I have a hole in my heart. Pt also states she is hearing babies crying.; Reason: Other:; Shortness of Breath, Fever; Clinical Question(s): Pneumonia COMPARISON: Multiple prior chest radiographs with the most recent dated 02/08/2024. FINDINGS: LINES AND TUBES: None. LUNGS AND PLEURA: Clear lungs. Normal pulmonary vascularity. No pleural effusion. No pneumothorax. HEART, MEDIASTINUM AND JUANA: Heart is normal in size. Normal mediastinal and hilar contour. BONES AND SOFT TISSUES: No acute abnormality. IMPRESSION: No acute abnormality. No interval change. WSN: [id number] Ordering Physician: Caro Mirza Dictated By: Pepe Malone MD, V Dictated Date/Time: 03/27/24 1:42 pm Reviewed By: Pepe Malone MD, V Signed By: Pepe Malone MD, V Signed Date/Time: 03/27/24 1:42 pm Transcribed By: TOMMY Transcribed Date/Time: 03/27/24 1:41 pm Vital Signs Most recent to oldest [Reference Range]: 1 2 3 Height 162 cm (03/28/24 8:11 AM) 162 cm (03/27/24 12:00 PM) Weight 100 kg (03/28/24 8:11 AM) 100 kg (03/27/24 3:50 PM) Oxygen Saturation [94-100 %] 100 % (03/28/24 8:11 AM) 100 % (03/27/24 8:24 PM) 100 % (03/27/24 3:50 PM) Pulse Rate [55-90 bpm] 85 bpm (03/28/24 8:11 AM) 99 bpm *H* (03/27/24 8:24 PM) 102 bpm *H* (03/27/24 3:50 PM) Body Mass Index [18.5-24.99 kg/m2] 38.1 kg/m2 *>HHI* (03/28/24 8:11 AM) Blood Pressure [90-138/55-84 mm Hg] 126/99mm Hg (03/27/24 8:24 PM) 113/76mm Hg (03/27/24 3:50 PM) Systolic Blood Pressure [90-138 mm Hg] 135 mm Hg (03/28/24 8:11 AM) Diastolic Blood Pressure [55-84 mm Hg] 89 mm Hg *H* (03/27/24 12:00 PM) Respiratory Rate [16-30 br/min] 16 br/min (03/28/24 8:11 AM) 18 br/min (03/27/24 8:24 PM) 16 br/min (03/27/24 3:50 PM) Temperature [96.8-100.4 DegF] 97.3 DegF (03/28/24 8:11 AM) 98.2 DegF (03/27/24 12:00 PM) Mode of Delivery (Oxygen) Room air (03/28/24 8:11 AM) Room air (03/27/24 8:24 PM) Room air (03/27/24 3:50 PM) Blood pressure sites Arm, left (03/27/24 8:24 PM) Arm, left (03/27/24 3:50 PM) Arm, left (03/27/24 12:00 PM) Temperature Route Oral (03/28/24 8:11 AM) Oral (03/27/24 12:00 PM) Dry Weight 100 kg (03/28/24 8:11 AM) 100 kg (03/27/24 3:50 PM) 100 kg (03/27/24 12:00 PM) Dry Weight Obtained Via Patient/family s tated (03/27/24 12:00 PM) Social History Social History Type Response Smoking Status 5-9 cigarettes (betw een 1/4 to 1/2 pack)/day in last 30 days; Interested in cessation: No; Patient wants NRT during admission Yes; Other: will accept nicotine gum; entered on: 07/14/23 Sex History and physical note * Event Display: History and Physical Hospital Authored Date: [id number] [place], [place] PSYCHIATRIC HISTORY ASSESS EXAM NAME: LORETTA CELESTIN : 89 MR#: [id number] PCP: ADMITTED: 12/20/15 DATE OF SERVICE: 12/20/15 HPI - Hosp Psych H P Chief Complaint Pt [place] [facility] [place] History of Present Illness 24 yo AA Female with known schizophrenia was seen at [facility] for hallucination. Apparently pt has been lived in custodial and sent to [facility] for acute exacerbation of her underline schizophrenia. [...] QDAY Haloperidol* (Haldol*) 5 MG PO BID Forbes Carbonate SR* (Lithobid*) 300 MG PO QDAY liTHIum Carbonate SR* (Forbes Carbonate SR*) 450 MG PO 4PM Discontinued Reported Medications Citalopram* (CeleXA*) 40 MG PO QDAY Benztropine* 0.5 MG PO BID buPROPion SR* 150 MG PO [id number] Trazodone* (Desyrel*) 100 MG PO HS RisperiDONE* [...] 324 MG QDAY 12/20 0900 CKD PO Forbes Carbonate 300 MG QDAY 12/20 0900 AC PO Polyethylene Glycol 17 GM QDAY 12/20 0900 CKD PO Benztropine Mesylate 1 MG 0900,1700 12/19 1700 AC PO Docusate Sodium 100 MG 0900,1700 12/19 1700 AC PO Haloperidol 5 MG 0900,1700 12/19 1700 AC PO Forbes Carbonate 450 MG PM 12/19 1700 AC [...] fullly ambulartory Care Level Complexity of Care [id number] Comprehensive history, comprehensive examination, medical decision making of low complexity, at least 20 minutes at the bedside, patient's floor/ unit. ESigned by: YAS GARZA MD Date:12/21/15 Time:1633 / NOT FOR REDISCLOSURE WITHOUT PATIENT'S INFORMED CONSENT Admission evaluation note * Event Display: Admit Notes Authored Date: [place], [place] PSYCHIATRIC ADMISSION NOTE NAME: LORETTA CELESTIN : 89 HOSPITAL #: [id number] MR #: [id number] CHART LOC: PCP: DICTATING: MARIA R Robin MD DATE OF ADMISSION: 12/20/15 DATE OF SERVICE: 12/21/15 CHIEF COMPLAINT: This 23-year-old woman was admitted to [facility] on 12/20/15 on a Conditional Voluntary application because of suicidal ideation. HISTORY OF PRESENT ILLNESS: The patient has been treated for schizoaffective disorder depressed type, posttraumatic stress disorder, intellectual disability and alcohol syndrome with multiple hospitalizations for self-harming behavior and suicidal ideation. She presented to Crisis Services from her custodial reporting that she was having urges to [...] how they had evolved. Staff at the custodial where she lives reported her as unusually [...] HISTORY: The patient is living in a custodial. Came to [place] with her grandmother in [...] year NAME: LORETTA CELESTIN : 89 HOSP#: [id number] MR#: [id number] CHART LOC: PCP: DICTATING: MARIA R Robin MD PSYCHIATRIC ADMISSION NOTE CONTINUED: unknown. TREATMENT PLAN: Resume outpatient medications, physical exam, collateral contact with community caregivers and social network, safety plan, aftercare plan and observe. 927 T:sn DD:[id number] TD:0745 DT:[id number] TT:0924 [id number] MICHELLE/SHANNON MARIA R Robin MD ESigned by: Date:12/22/15 Time:06 NOT FOR REDISCLOSURE WITHOUT PATIENT'S INFORMED CONSENT EKG study * Event Display: ECG 12-Lead Authored Date: Please click on pdf link to open report * Event Display: ECG 12-Lead Authored Date: Ventricular Rate: 85 BPM Atrial Rate: 85 BPM P-R Interval: 178 ms QRS Duration: 80 ms Q-T Interval: 372 ms QTC Calculation(Bazett): 442 ms P [place]: 51 degrees R [place]: 45 degrees T [place]: 37 degrees Normal sinus rhythm Nonspecific ST and T wave abnormality Abnormal ECG When compared with ECG of 26-MAR-2024 09:29, No significant change was found Confirmed by Chandler Torres ([id number]) on 03/27/2024 12:22:20 PM [place]: Chandler Torres * Event Display: EKG Authored Date: Note * iRya Mercado MD: PERFORM, SIGN, VERIFY Event Display: Patient Education Handout Authored Date: [id number] * Riya Mercado MD: PERFORM Event Display: Patient Education Leaflets Authored Date: Uncertain Causes of Chest Pain ?? [id number] Uncertain Causes of Chest Pain Chest pain [...] leg ?? Last Reviewed Date: 2021 ?? [employer]. All rights reserved. This information is not intended as a substitute for professional medical care. Always follow your healthcare professional's instructions. ?? * Rogelio TORRES, Riya Aponte: PERFORM Event Display: Patient Education Leaflets Authored Date: [id number] Schizoaffective Disorder ?? [id number] Schizoaffective Disorder Schizoaffective disorder is a serious chronic mental health condition that has symptoms of schizophrenia (hallucinations or delusions) and symptoms of a mood disorder (stephany and depression). Schizoaffective disorder is a rare condition. It's often incorrectly diagnosed at first as bipolar disorder. It can take time to tell the difference between schizoaffective disorder and schizophreniaand mood disorders. Schizoaffective disorder is life-long (chronic). Though it is important to realize that symptoms can lesson with time and treatment. It makes working and living in society difficult. Schizoaffective disorder is a psychotic disorder. Someone with schizoaffective disorder has thoughts and emotions that are a distortion of external reality. They perceive a unique reality from those around them. The difference between reality and what you think become blurred in your mind.??The cause of schizoaffective disorder is not yet known. It's believed to be a result of genetic and biological factors such as brain chemistry and structure. Symptoms of schizoaffective disorder??include: ??? Seeing or hearing things that are not there (hallucinations). Hearing (auditory) hallucinationsare most common. ??? False beliefs (delusions) ??? Disorganized thinking and speech ??? Severe anxiety ??? Feeling unreal ??? Paranoia ??? Insomnia ??? Trouble thinking or concentrating clearly ??? De pression, feeling suicidal ??? Withdrawal from those around you (social withdrawal) Depression is 1 type of mood disorder that is related to brain chemistry. It is common in people with schizoaffective disorder. You may feel a lack of interest in normal activities. Sometimes there is sadness or guilt without any clear reason. Thinking may become slow and there can be a lack energyor feeling of hopelessness. Some people have thoughts of harming themselves at this stage. Thoughtscan even turn to suicide. Bipolar disorder is [...] to a lifestyle that is disorganized and chaotic. It can include risky behavior (spending sprees, sexual acting out, or drug use). In later stages, it may affect eating (no interest in food) and sleeping (unable to sleep for days at a time). Speech may speed up and become hard for others to understand. You may appear to others as if you are in your own world. It is possibly hereditary which means a person is more likely to get this illness if a family member has it. Use of drugs such as marijuana in certain people, amphetamines (speed) and cocaine increase the risk of getting this disorder. People with this illness will generally have to take medicines to treat it long-term. Home care ??? Ongoing care and support helps people manage this illness. Find a healthcare providerand therapist who meet your needs. Don't be discouraged if you have to visit a number of therapistsbefore you find one that works well with you. ??? Make sure to take your prescribed medicine as advised, even if you think you don???t need it. Don't change the dose or stop the medicine unless you talk with your provider. Don't share your medicines or use another person's medicines. ??? Talk to your provider if you have trouble paying for your medicine. Ask them to help you find resources to help with this. ??? Get the required lab work on schedule to check your overall health and make sure you are getting the right amount of medicine ??? Seek support from trusted friends or family by talking about your feelings and thoughts. Ask them to help you recognize behavior changes early so you canget help. If needed, your healthcare provider can adjust your medicines and stop serious problems from developing. ??? Tell each of your healthcare providers about all of the prescription medicines, xzrd-gun-jrpxwoz medicines, vitamins, and supplements you take. This includes your dentist.??Certainsupplements interact with medicines and can cause dangerous side effects.?? Ask your pharmacist about medicine interactions before taking a new medicine or supplement. ??? If you are having trouble managing workplace issues, or caring for yourself because of this illness, contact your local Americans with Disabilities (ADA) office to see if they can help. ??The U.S. Department of Justice operatesa toll-free ADA information line at 927-256-3412 (Voice) or 651-765-8782 (TTY). ??They can help youfind a local office. ??? Don't use alcohol, amphetamines, cocaine, or related street??drugs to manage symptoms. These will interact with your medicines and make your condition worse. If your symptomsaren't being controlled, go back to your provider. You may need the dose of your current medicine changed or a different medicine. ?? Follow-up care Follow up with your healthcare provider, or??as advised. ?? Call 988 Call or text 988 if you ??? Have thoughts of harming yourself or others. You will be connected to trained crisis counselors. ??? Have trouble breathing ??? Are very confused ??? Are very drowsy or have trouble awakening ???Faint or lose consciousness ??? Have a rapid [...] side effects fromthe prescription medicines. Don't stop or change the way you take your medicines because of the side effects unless you talk with your provider. ??? Feeling like you want to harm yourself or another ??? Unable to care for yourself ??? Worsening hallucinations ??? Worsening delusions or paranoia ???Worsening depression or anxiety ?? Last Reviewed Date: 2023 ?? [id number] [employer]. All rights reserved. This information is not intended as a substitute for professional medical care. Always follow your healthcare professional's instructions. ?? Patient Care team information Care Team Personnel Name: Dean Rivas RN Position: [facility] RN Member Role: Primary Care Nurse Name: Jolanta Ace RN Position: [facility] RN Supv Member Role: Primary Care Nurse Name: Fatoumata Stkoes DO Position: [facility] Physician - Primary Care Member Role: PCP Address: Address: [address] [place] [address] Adult [place] [address]- Name: Awilda Grider RN Position: [facility] RN Member Role: Primary Care Nurse Name: Meagan Darden RN Position: [facility] RN Member Role: Primary Care Nurse Name: Chintan Leach DO Position: [facility] Renal MD Member Role: Lifetime Consulting Physician Address: Address: [address] [place] [address] [address] [facility] [place] [address]- Name: Chandler Ye RN Position: [facility] RN Member Role: Primary Care Nurse Name: Apurva Ji RN Position: [facility] ED RN W/OE and Tasks Member Role: Primary Care Nurse Name: Cordelia Matias RN Position: [facility] AMB Nurse Member Role: Primary Care Nurse Name: Riya Moore RN Position: [facility] RN Member Role: Primary Care Nurse Name: Radha Gutierrez Position: [facility] Outreach Member Role: Primary Care Nurse Name: Keenan Vincent RN Position: [facility] SN RN Member Role: Primary Care Nurse Name: Sasha Patricio RN Position: [facility] RN Member Role: Primary Care Nurse Name: Virgie Angel RN Position: [facility] RN Member Role: Primary Care Nurse Name: Malu Palomo Position: [facility] RN Member Role: Primary Care Nurse Name: Azeb Gusman RN Position: [facility] RN Member Role: Primary Care Nurse Name: Kim Cornell RN Position: [facility] RN Member Role: Primary Care Nurse Name: Meredith Martinez RN Position: [facility] RN Member Role: Primary Care Nurse Name: Anika Gotti RN Position: [facility] RN Member Role: Primary Care Nurse Name: Kvng Tompkins RN Position: [facility] ED RN W/OE and Tasks Member Role: Primary Care Nurse Name: Rafiq Muñoz RN Position: [facility] RN Member Role: Primary Care Nurse Name: Justina Walker RN Position: [facility] RN Member Role: Primary Care Nurse Name: Ivone Hidalgo RN Position: [facility] RN Member Role: Primary Care Nurse Name: Mazin Penn MD Position: [facility] Physician - Behavioral Health Member Role: Lifetime Consulting Physician Address: Address: [address] [place] [address]- [place] Care Team Related Persons Name: DORITA MCCOLLUM Address: [address] [place] [address] Name: STEW PECK Address: home [address] [place] [address] Name: LISA PALMA Address: [address] [place] [address]
--- OUTSIDE RECORDS SUMMARY | 2024-06-11 16:50 | XMS_ITS | Continuity of Care Document ---
Author Organization [facility] Address [address] [place] [address]- Care Team Providers Care Spool Carrier Name Role Phone Fatoumata Stokes DO Primary Care Physician ( [phone] Encounter [facility] Date(s): 08/29/23 - 09/28/23 [facility] [address] [place], [place] [address] Allergies, Adverse Reactions, Alerts Substance [...] 0 Refills, Maintenance, 07/05/23 0:27:00 EDT, Nasal [place], Partial fill upon patient request if the [...] 0 Refills, Maintenance, 07/19/23 13:49:00 EDT, Capsule, [facility], Partial fill upon patient request if [...] Maintenance,07/19/23 13:53:00 EDT, Route to Pharmacy Electronically, [facility], Partial fill upon patient request if the prescription is for a schedule... Start Date: 07/19/23 Stop Date: 08/18/23 Status: Ordered traZODone 50 mg oral tablet 50 mg, 1, tablet, By Mouth, Daily at bedtime, # 30 tablet, Refills 0, Tot. Refills 0, Maintenance, 07/19/23 13:53:00 EDT, Route to Pharmacy Electronically, [facility], Partial fill upon patient request if [...] 07/19/23 13:50:00 EDT, Route to Pharmacy Electronically, [facility], Partial fill upon patient request if [...] Display: History and Physical Hospital Authored Date: [id number] [place], [place] PSYCHIATRIC HISTORY ASSESS EXAM NAME: LORETTA CELESTIN : 89 MR#: [id number] PCP: ADMITTED: 12/20/15 DATE OF SERVICE: 12/20/15 HPI - Hosp Psych H P Chief Complaint Pt was sent from [facility] [place] here for hallunication History of Present Illness 24 yo AA Female with known schizophrenia was seen at [facility] [place]. Apparently pt has been lived in nursing home and [place] [facility] [place] [...] QDAY Haloperidol* (Haldol*) 5 MG PO BID Titanic Carbonate SR* (Lithobid*) 300 MG PO QDAY liTHIum Carbonate SR* (Titanic Carbonate SR*) 450 MG PO 4PM Discontinued Reported Medications Citalopram* (CeleXA*) 40 MG PO QDAY Benztropine* 0.5 MG PO BID buPROPion SR* 150 MG PO [id number] Trazodone* (Desyrel*) 100 MG PO HS RisperiDONE* [...] 324 MG QDAY 12/20 09 CKD PO Titanic Carbonate 300 MG QDAY 12/20 09 AC PO Polyethylene Glycol 17 GM QDAY 12/20 09 CKD PO Benztropine Mesylate 1 MG 0900,12/19 1700 AC PO Docusate Sodium 100 MG 0900,12/19 1700 AC PO Haloperidol 5 MG 0900,12/19 1700 AC PO Titanic Carbonate 450 MG PM 12/19 1700 AC [...] fullly ambulartory Care Level Complexity of Care [id number] Comprehensive history, comprehensive examination, medical decision making of low complexity, at least 20 minutes at the bedside, patient's floor/ unit. ESigned by: YAS GARZA MD Date:12/21/15 Time:1633 / NOT FOR REDISCLOSURE WITHOUT PATIENT'S INFORMED CONSENT Admission evaluation note * Event Display: Admit Notes Authored Date: [id number] [place], [place] PSYCHIATRIC ADMISSION NOTE NAME: LORETTA CELESTIN : 89 HOSPITAL #: [id number] MR #: [id number] CHART LOC: PCP: DICTATING: MARIA R Robin MD DATE OF ADMISSION: 12/20/15 DATE OF SERVICE: 12/21/15 CHIEF COMPLAINT: This 23-year-old woman was admitted to [facility] on 12/20/15 on a [...] living in a nursing home. Came to [place] with her grandmother [...] year NAME: LORETTA CELESTIN : 89 HOSP#: [id number] MR#: [id number] CHART LOC: PCP: DICTATING: MARIA R Robin MD PSYCHIATRIC ADMISSION NOTE CONTINUED: unknown. TREATMENT PLAN: Resume outpatient medications, physical exam, collateral contact with community caregivers and social network, safety plan, aftercare plan and observe. 927 T:sn DD:[id number] TD:0745 DT:20151221 TT:0924 [id number] MICHELLE/SHANNON MARIA R Robin MD ESigned by: [...] Care Member Role: PCP Address: Address: [address] [place] [address] Adult [place] [address]- Name: Britt Polanco RN Position: [facility] RN Member Role: Primary Care Nurse Name: Awilda Grider RN Position: S RN Member Role: Primary Care Nurse Name: Meagan Darden RN Position: [facility] RN Member Role: Primary Care Nurse Name: Chintan Leach DO Position: [facility] Renal MD Member Role: Lifetime Consulting Physician Address: Address: [address] [place], [place] [address] [place] [address]- Name: Chandler Ye RN [facility] [...] Primary Care Nurse Name: Virgie Angel Position: [facility] RN Member Role: Primary Care Nurse Name: Emma Kaminski RN Position: [facility] RN Member [...] Role: Lifetime Consulting Physician Address: Address: [address] [place] [address] [place] Care Team Related Persons Name: DORITA MCCOLLUM Address: [address] [place] [address] Name: STEW PECK Address: [address] [facility], [address] Name: LISA PALMA Address: [address] [place] [address]
--- OUTSIDE RECORDS SUMMARY | 2024-06-11 16:50 | XMS_ITS | Continuity of Care Document ---
Author Organization [facility] Address [address] [place] [address]- Care Team Providers Care Field Party Manager Name Role Phone Fatoumata Stokes DO Primary Care Physician Encounter [facility] Date(s): 04/11/24 - 05/12/24 [facility] [address], [place] [address] Attending Physician: Abraham Hernandez MD Referring Physician: Fatoumata Stokes DO Allergies, [...] 0 Refills, Maintenance, 02/17/24 9:30:00 EDT, Tablet, [facility], Partial fill upon patient request if [...] Refills, Soft Stop, 04/09/24 12:02:00 EDT, Tablet, [facility], Partial fill upon patient request if [...] 0 Refills, Maintenance, 03/09/24 14:42:00 EDT, Nasal [place], [facility], Partial fill upon patient request if the prescription is for a schedule II opi... Start Date: 03/09/24 Status: Ordered lidocaine 5% topical film 1 patch, Topically, Daily, INSTR:REMOVE PATCHES AFTER 12 HOURS, # 30 each, 0 Refills, Maintenance, 04/26/24 17:29:00 EDT, [facility], 30, APPLY 1 PATCH TOPICALLY DAILY,INSTR:REMOVE [...] Replace Required Details, Route to Pharmacy Electronically, [facility], 163, cm, 04/09/24 11:20:00 EDT, Height, [...] 0 Refills, Maintenance, 04/25/24 10:05:00 EDT, ECCapsule, [facility], Partial fill upon patient request if [...] Maintenance,07/19/23 13:53:00 EDT, Route to Pharmacy Electronically, [facility], Partial fill upon patient request if the prescription is for a schedule... Start Date: 07/19/23 Stop Date: 08/18/23 Status: Ordered Provera 10 mg oral tablet 10 mg, 1, tablet, By Mouth, Daily, call the office at [phone] if you do not get a menstrual cycle., # 10 tablet, Refills 0, Tot. Refills 0, Maintenance, 12/21/23 15:20:00 EDT, Route to Pharmacy Electronically, [facility], Partial fill u... Start Date: 12/21/23 Stop Date: 12/31/23 Status: Ordered traZODone 50 mg oral tablet 50 mg, 1, tablet, By Mouth, Daily at bedtime, # 30 tablet, Refills 0, Tot. Refills 0, Maintenance, 07/19/23 13:53:00 EDT, Route to Pharmacy Electronically, [facility], Partial fill upon patient request if the prescription is for a schedule I... Start Date: 07/19/23 Stop Date: 08/18/23 Status: Ordered Vitamin C 250 mg oral tablet See Instructions, 1 tablet By Mouth every other day with iron Daily at 9am, # 45 tablet, 11 Refills, Maintenance, 02/17/24 9:32:00 EDT, [facility], 163, cm, 02/17/24 9:01:00 EDT, Height, 96.5, kg, 02/11/24 1:23:00 EDT, Dry Weight Start Date: 02/17/24 Status: Ordered Vitamin C 250 mg oral tablet 1 tablet, By Mouth, Daily in AM, AT 9AM., # 30 tablet, 0 Refills, Maintenance, 02/02/24 15:05:00 EDT, [facility], 163, cm, 01/24/24 9:01:00 EDT, Height, 100.2, kg, 10/17/23 16:02:00 EST, Dry Weight Start Date: 02/02/24 Status: Ordered ZyPREXA 10 mg oral tablet 10 mg, 1, tablet, By Mouth, Daily at bedtime, # 30 tablet, Refills 0, Tot. Refills 0, Maintenance, 07/19/23 13:50:00 EDT, Route to Pharmacy Electronically, [facility], Partial fill upon patient request if [...] Display: History and Physical Hospital Authored Date: [id number] [place], [place] PSYCHIATRIC HISTORY ASSESS EXAM NAME: LORETTA CELESTIN : 89 MR#: [id number] PCP: ADMITTED: 12/20/15 DATE OF SERVICE: 12/20/15 HPI - Hosp Psych H P Chief Complaint Pt was sent from [facility] ER here for hallunication History of Present Illness 24 yo AA Female with known schizophrenia was seen at [facility] ER for hallucination. Apparently pt has been lived in senior living and sent to [facility] for acute exacerbation of her underline schizophrenia. [...] QDAY Haloperidol* (Haldol*) 5 MG PO BID [place] Carbonate SR* (Lithobid*) 300 MG PO QDAY liTHIum Carbonate SR* ([place] Carbonate SR*) 450 MG PO 4PM Discontinued Reported Medications Citalopram* (CeleXA*) 40 MG PO QDAY Benztropine* 0.5 MG PO BID buPROPion SR* 150 MG PO [id number] Trazodone* (Desyrel*) 100 MG PO HS RisperiDONE* [...] 324 MG QDAY 12/20 0900 CKD PO [place] Carbonate 300 MG QDAY 12/20 0900 AC PO Polyethylene Glycol 17 GM QDAY 12/20 0900 CKD PO Benztropine Mesylate 1 MG 0900,1700 12/19 1700 AC PO Docusate Sodium 100 MG 0900,1700 12/19 1700 AC PO Haloperidol 5 MG 0900,1700 12/19 1700 AC PO [place] Carbonate 450 MG PM 12/19 1700 AC [...] fullly ambulartory Care Level Complexity of Care [id number] Comprehensive history, comprehensive examination, medical decision making of low complexity, at least 20 minutes at the bedside, patient's floor/ unit. ESigned by: YAS GARZA MD Date:12/21/15 Time:1633 / NOT FOR REDISCLOSURE WITHOUT PATIENT'S INFORMED CONSENT Admission evaluation note * Event Display: Admit Notes Authored Date: [place], [place] PSYCHIATRIC ADMISSION NOTE NAME: LORETTA CELESTIN : 89 HOSPITAL #: [id number] MR #: [id number] CHART LOC: PCP: DICTATING: MARIA R Robin MD DATE OF ADMISSION: 12/20/15 DATE OF SERVICE: 12/21/15 CHIEF COMPLAINT: This 23-year-old woman was admitted to [facility] on 12/20/15 on a Conditional [...] living in a senior living. Came to [place] with her grandmother in [...] year NAME: LORETTA CELESTIN : 89 HOSP#: [id number] MR#: [id number] CHART LOC: PCP: DICTATING: MARIA R Robin MD PSYCHIATRIC ADMISSION NOTE CONTINUED: unknown. TREATMENT PLAN: Resume outpatient medications, physical exam, collateral contact with community caregivers and social network, safety plan, aftercare plan and observe. 927 T:sn DD:[id number] TD:0745 DT:20151221 TT:0924 JOB:[id number] MICHELLE/SHANNON MARIA R Robin MD ESigned by: Date:12/22/15 Time:0643 NOT FOR REDISCLOSURE WITHOUT PATIENT'S INFORMED CONSENT Patient Care team information Care Team Personnel Name: Dean Rivas RN Position: [facility] RN Member Role: Primary Care Nurse Name: Jolanta Ace RN Position: [facility] RN Rayov Member Role: Primary Care Nurse Name: Fatoumata Stokes DO Position: [facility] Physician - Primary Care Member Role: PCP Address: Address: [address] [place] [address] Adult [place] [address]- Name: Awilda Grider RN Position: [facility] RN Member Role: Primary Care Nurse Name: Meagan Darden RN Position: [facility] RN Member Role: Primary Care Nurse Name: Chintan Leach DO Position: [facility] Renal MD Member Role: Lifetime Consulting Physician Address: Address: [address] [place] [address] [address] [facility] [place] [address]- Name: Chandler Ye RN Position: [facility] RN Member Role: Primary Care Nurse Name: Apurva Ji RN Position: [facility] ED RN W/OE and Tasks Member Role: Primary Care Nurse Name: Cordelia Matias RN Position: [facility] AMB Nurse Member Role: Primary Care Nurse Name: Riya Moore RN Position: [facility] RN Member Role: Primary Care Nurse Name: Radha Gutierrez Position: [facility] Outreach Member Role: Primary Care Nurse Name: Keenan Vincent RN Position: [facility] SN RN Member Role: Primary Care Nurse Name: Sasha Patricio RN Position: [facility] RN Member Role: Primary Care Nurse Name: Virgie Angel RN Position: [facility] RN Member Role: Primary Care Nurse Name: Malu Palomo Position: [facility] RN Member Role: Primary Care Nurse Name: Azeb Gusman RN Position: [facility] RN Member Role: Primary Care Nurse Name: Asher Diaz RN Position: [facility] RN Member Role: Primary Care Nurse Name: Kim Cornell RN Position: [facility] RN Member Role: Primary Care Nurse Name: Meredith Martinez RN Position: [facility] RN Member Role: Primary Care Nurse Name: Anika Gotti RN Position: [facility] RN Member Role: Primary Care Nurse Name: Kvng Tompkins RN Position: [facility] ED RN W/OE and Tasks Member Role: Primary Care Nurse Name: Rafiq Muñoz RN Position: [facility] RN Member Role: Primary Care Nurse Name: Justina Walker RN Position: [facility] RN Member Role: Primary Care Nurse Name: Ivone Hidalgo RN Position: [facility] RN Member Role: Primary Care Nurse Name: Mazin Penn MD Position: [facility] Physician - Behavioral Health Member Role: Lifetime Consulting Physician Address: Address: [address] [place] [id number] [place] Care Team Related Persons Name: CHUNDORITA Address: [address] [place] [address] Name: STEW PECK Address: home [address] [place] [address] Name: LISA PALMA Address: [address] [place] [address]
--- OUTSIDE RECORDS SUMMARY | 2024-06-11 16:50 | XMS_ITS | Continuity of Care Document ---
Author Organization [facility] Address [address] [place] [address]- Care Team Providers Care Policy Writer Sales Name Role Phone Fatoumata Stokes DO Primary Care Physician Encounter [facility] Date(s): 11/02/23 - 11/09/23 [facility] [address] [place] [address]- Encounter Diagnosis Schizophrenia(Discharge Diagnosis) - 11/02/23 Paranoid delusion(Discharge Diagnosis) - 11/02/23 Missed periods(Discharge Diagnosis) - 11/02/23 Attending Physician: Courtney Bassett MD Allergies, Adverse Reactions, Alerts Substance Reaction [...] 0 Refills, Maintenance, 07/05/23 0:27:00 EDT, Nasal [place], Partial fill upon patient request if the [...] Maintenance,07/19/23 13:53:00 EDT, Route to Pharmacy Electronically, [facility], Partial fill upon patient request if the prescription is for a schedule... Start Date: 07/19/23 Stop Date: 08/18/23 Status: Ordered traZODone 50 mg oral tablet 50 mg, 1, tablet, By Mouth, Daily at bedtime, # 30 tablet, Refills 0, Tot. Refills 0, Maintenance, 07/19/23 13:53:00 EDT, Route to Pharmacy Electronically, [facility], Partial fill upon patient request if [...] 07/19/23 13:50:00 EDT, Route to Pharmacy Electronically, [facility], Partial fill upon patient request if [...] Effective Dates Health Status Clinical Service Informant Schizophrenia Discharge Diagnosis 11/02/23 Paranoid delusion Discharge Diagnosis 11/02/23 Missed periods Discharge Diagnosis 11/02/23 Vital Signs Most recent to oldest [Reference Range]: 1 Height 163 cm (11/02/23 9:58 AM) Weight 98.9 kg (11/02/23 9:58 AM) Oxygen Saturation [94-100 %] 99 % (11/02/23 9:58 AM) Pulse Rate [55-90 bpm] 73 bpm (11/02/23 9:58 AM) Body Mass Index [18.5-24.99 kg/m2] 37.22 kg/m2 *>HHI* (11/02/23 9:58 AM) Blood Pressure [90-138/55-84 mm Hg] 125/ 85mm Hg (11/02/23 9:58 AM) Mode of Delivery (Oxygen) Room air (11/02/23 9:58 AM) Blood pressure sites Arm, right (11/02/23 9:58 AM) Social History Social History Type Response Smoking Status 5-9 cigarettes (betw een 1/4 to 1/2 pack)/day in last 30 days; Interested in cessation: No; Patient wants NRT during admission Yes; Other: will accept nicotine gum; entered on: 07/14/23 Sex History and physical note * Event Display: History and Physical Hospital Authored Date: [id number] [place], [place] PSYCHIATRIC HISTORY ASSESS EXAM NAME: LORETTA CELESTIN : 89 MR#: [id number] PCP: ADMITTED: 12/20/15 DATE OF SERVICE: 12/20/15 HPI - Hosp Psych H P Chief Complaint Pt was sent from [facility] ER here for hallunication History of Present Illness 24 yo AA Female with known schizophrenia was seen at [facility] ER for hallucination. Apparently pt has been lived in nursing home and sent to [facility] for acute exacerbation of her [...] QDAY Haloperidol* (Haldol*) 5 MG PO BID [place] Carbonate SR* (Lithobid*) 300 MG PO QDAY liTHIum Carbonate SR* ([place] Carbonate SR*) 450 MG PO 4PM Discontinued Reported Medications Citalopram* (CeleXA*) 40 MG PO QDAY Benztropine* 0.5 MG PO BID buPROPion SR* 150 MG PO [id number] Trazodone* (Desyrel*) 100 MG PO HS RisperiDONE* [...] 324 MG QDAY 12/20 0900 CKD PO [place] Carbonate 300 MG QDAY 12/20 0900 AC PO Polyethylene Glycol 17 GM QDAY 12/20 0900 CKD PO Benztropine Mesylate 1 MG 0900,1700 12/19 1700 AC PO Docusate Sodium 100 MG 0900,1700 12/19 1700 AC PO Haloperidol 5 MG 0900,12/19 1700 AC PO [place] Carbonate 450 MG PM 12/19 1700 AC [...] fullly ambulartory Care Level Complexity of Care [id number] Comprehensive history, comprehensive examination, medical decision making of low complexity, at least 20 minutes at the bedside, patient's floor/ unit. ESigned by: YAS GARZA MD Date:12/21/15 Time:1633 / NOT FOR REDISCLOSURE WITHOUT PATIENT'S INFORMED CONSENT Admission evaluation note * Event Display: Admit Notes Authored Date: [id number] [place], [place] PSYCHIATRIC ADMISSION NOTE NAME: LORETTA CELESTIN : 89 HOSPITAL #: [id number] MR #: [id number] CHART LOC: PCP: DICTATING: MARIA R Robin MD DATE OF ADMISSION: 12/20/15 DATE OF SERVICE: 12/21/15 CHIEF COMPLAINT: This 23-year-old woman was admitted to [facility] on 12/20/15 on a Conditional Voluntary application [...] living in a nursing home. Came to [place] with her grandmother in 2013, was very [...] year NAME: LORETTA CELESTIN : 89 HOSP#: [id number] MR#: [id number] CHART LOC: PCP: DICTATING: MARIA R Robin MD PSYCHIATRIC ADMISSION NOTE CONTINUED: unknown. TREATMENT PLAN: Resume outpatient medications, physical exam, collateral contact with community caregivers and social network, safety plan, aftercare plan and observe. 927 T: DD:[id number] TD:0745 DT:20151221 TT:0924 [id number]:[id number] MICHELLE/SHANNON MARIA R Robin MD ESigned by: Date:12/22/15 Time:0643 NOT FOR REDISCLOSURE WITHOUT PATIENT'S INFORMED CONSENT Patient Care team information Care Team Personnel Name: Dean Rivas RN Position: [facility] RN Member Role: Primary Care Nurse Name: Jolanta Ace RN Position: [facility] RN Supv Member Role: Primary Care Nurse Name: Fatoumata Stokes DO Position: [facility] Physician - Primary Care Member Role: PCP Address: Address: [address] [place] [address] Adult [place] [address]- Name: Awilda Grider RN Position: [facility] RN Member Role: Primary Care Nurse Name: Meagan Darden RN Position: [facility] RN Member Role: Primary Care Nurse Name: Chintan Leach DO Position: [facility] Renal MD Member Role: Lifetime Consulting Physician Address: Address: [address] [place], [place] [address] [place] [address]- Name: Chandler Ye RN Position: [facility] RN Member Role: Primary Care Nurse Name: Apurva Ji RN Position: [facility] ED RN W/OE and Tasks Member Role: Primary Care Nurse Name: Cordelia Matias RN Position: [facility] AMB Nurse Member Role: Primary Care Nurse Name: Riya Moore RN Position: [facility] RN Member Role: Primary Care Nurse Name: Radha Gutierrez Position: [facility] Outreach Member Role: Primary Care Nurse Name: Keenan Vincent RN Position: [facility] SN RN Member Role: Primary Care Nurse Name: Sasha Patricio RN Position: [facility] RN Member Role: Primary Care Nurse Name: Virgie Angel Position: [facility] RN Member Role: Primary Care Nurse Name: Emma Kaminski RN Position: [facility] RN Member Role: Primary Care Nurse Name: Malu Palomo Position: [facility] RN Member Role: Primary Care Nurse Name: Azeb Gusman RN Position: [facility] RN Member Role: Primary Care Nurse Name: Asher Diaz RN Position: [facility] RN Member Role: Primary Care Nurse Name: Kim Cornell RN Position: [facility] RN Member Role: Primary Care Nurse Name: Meredith Martinez RN Position: [facility] RN Member Role: Primary Care Nurse Name: Anika Gotti RN Position: [facility] RN Member Role: Primary Care Nurse Name: Kvng Tompkins RN Position: [facility] ED RN W/OE and Tasks Member Role: Primary Care Nurse Name: Rafiq Muñoz RN Position: [facility] RN Member Role: Primary Care Nurse Name: Justina Walker RN Position: [facility] RN Member Role: Primary Care Nurse Name: Ivone Hidalgo RN Position: [facility] RN Member Role: Primary Care Nurse Name: Mazin Penn MD Position: [facility] Physician - Behavioral Health Member Role: Lifetime Consulting Physician Address: Address: [address] [place] [address] [place] Care Team Related Persons Name: CHUNDORITA Address: [address] [place] [address] Name: STEW PECK Address: [address] [facility], [address] Name: LISA PALMA Address: [address] [place] [address]
--- OUTSIDE RECORDS SUMMARY | 2024-06-11 16:50 | XMS_ITS | Continuity of Care Document ---
Author Organization [facility] ter Address [address] [place] [address]- Care Team Providers Care Log Sawyer Name Role Phone Fatoumata Stokes DO Primary Care Physician Encounter [facility] Date(s): 02/20/24 - 02/20/[address] [address]- Encounter Diagnosis Costochondritis(Final) - 02/20/24 Discharge Disposition: A-D/C Home Attending Physician: Oliver [...] 0 Refills, Maintenance, 02/17/24 9:30:00 EDT, Tablet, [facility], Partial fill upon patient request if [...] Refills, Soft Stop, 12/21/23 15:20:00 EDT, Tablet, [facility], Partial fill upon patient request if [...] 0 Refills, Maintenance, 07/05/23 0:27:00 EDT, Nasal [place], Partial fill upon patient request if the [...] 02/13/24 16:31:00 EDT, Route to Pharmacy Electronically, [facility], 163, cm, 02/11/24 1:23:00 EDT, Height, [...] 0 Refills, Maintenance, 12/23/23 17:55:00 EDT, ECCapsule, [facility], Partial fill [...] By Mouth, Daily, call the office at [phone] if you do not get a menstrual cycle., # 10 tablet, Refills 0, Tot. Refills 0, Maintenance, 12/21/23 15:20:00 EDT, Route to Pharmacy Electronically, [facility], Partial fill u... Start Date: 12/21/23 Stop Date: 12/31/23 Status: Ordered traZODone 50 mg oral tablet 50 mg, 1, tablet, By Mouth, Daily at bedtime, # 30 tablet, Refills 0, Tot. Refills 0, Maintenance, 07/19/23 13:53:00 EDT, Route to Pharmacy Electronically, [facility], Partial fill upon patient request if [...] Range]: 1 2 3 Height 168 cm (02/20/24 10:03 AM) 168 cm (02/20/24 9:57 AM) Weight 102 kg (02/20/24 10:03 AM) 102 kg (02/20/24 9:57 AM) Oxygen Saturation [94-100 %] 100 % (02/20/24 1:00 PM) 100 % (02/20/24 10:03 AM) 100 % (02/20/24 9:45 AM) Pulse Rate [55-90 bpm] 79 bpm (02/20/24 1:00 PM) 85 bpm (02/20/24 10:03 AM) 81 bpm (02/20/24 9:45 AM) Body Mass Index [18.5-24.99 kg/m2] 36.14 kg/m2 *>HHI* (02/20/24 10:03 AM) Blood Pressure [90-138/55-84 mm Hg] 122/81mm Hg (02/20/24 1:00 PM) 124/85mm Hg (02/20/24 10:03 AM) 124/85mm Hg (02/20/24 9:45 AM) Respiratory Rate [16-30 br/min] 16 br/min (02/20/24 1:00 PM) 18 br/min (02/20/24 10:03 AM) 17 br/min (02/20/24 9:45 AM) Temperature [96.8-100.4 DegF] 97.7 DegF (02/20/24 10:03 AM) Mode of Delivery (Oxygen) Room air (02/20/24 1:00 PM) Room air (02/20/24 10:03 AM) Room air (02/20/24 9:45 AM) Blood pressure sites Arm, left (02/20/24 10:03 AM) Temperature Route Oral (02/20/24 10:03 AM) Dry Weight 102 kg (02/20/24 10:03 AM) 102 kg (02/20/24 9:57 AM) Weight Obtained Via Patient/family state d (02/20/24 9:57 AM) Social History Social History Type Response Smoking Status 5-9 cigarettes (betw een 1/4 to 1/2 pack)/day in last 30 days; Interested in cessation: No; Patient wants NRT during admission Yes; Other: will accept nicotine gum; entered on: 07/14/23 Sex History and physical note * Event Display: History and Physical Hospital Authored Date: [id number] [place], [place] PSYCHIATRIC HISTORY ASSESS EXAM NAME: LORETTA CELESTIN : 89 MR#: [id number] PCP: ADMITTED: 12/20/15 DATE OF SERVICE: 12/20/15 HPI - Hosp Psych H P Chief Complaint Pt was sent from [facility] here for hallunication History of Present Illness 24 yo AA Female with known schizophrenia was seen at [facility] for hallucination. Apparently pt has been lived [place] [facility] and sent to [facility] [...] QDAY Haloperidol* (Haldol*) 5 MG PO BID [place] Carbonate SR* (Lithobid*) 300 MG PO QDAY liTHIum Carbonate SR* ([place] Carbonate SR*) 450 MG PO 4PM Discontinued Reported Medications Citalopram* (CeleXA*) 40 MG PO QDAY Benztropine* 0.5 MG PO BID buPROPion SR* 150 MG PO [id number] Trazodone* (Desyrel*) 100 MG PO HS RisperiDONE* [...] 324 MG QDAY 12/20 0900 CKD PO [place] Carbonate 300 MG QDAY 12/20 0900 AC PO Polyethylene Glycol 17 GM QDAY 12/20 0900 CKD PO Benztropine Mesylate 1 MG 0900,1700 12/19 1700 AC PO Docusate Sodium 100 MG 0900,1700 12/19 1700 AC PO Haloperidol 5 MG 0900,1700 12/19 1700 AC PO [place] Carbonate 450 MG PM 12/19 1700 AC [...] fullly ambulartory Care Level Complexity of Care [id number] Comprehensive history, comprehensive examination, medical decision making of low complexity, at least 20 minutes at the bedside, patient's floor/ unit. ESigned by: YAS GARZA MD Date:12/21/15 Time:1633 / NOT FOR REDISCLOSURE WITHOUT PATIENT'S INFORMED CONSENT Admission evaluation note * Event Display: Admit Notes Authored Date: [id number] [place], [place] PSYCHIATRIC ADMISSION NOTE NAME: LORETTA CELESTIN : 89 HOSPITAL #: [id number] MR #: [id number] CHART LOC: PCP: DICTATING: MARIA R Robin MD DATE OF ADMISSION: 12/20/15 DATE OF SERVICE: 12/21/15 CHIEF COMPLAINT: This 23-year-old woman was admitted to [facility] on 12/20/15 on a Conditional Voluntary [...] [place] [facility] [place]. Came to [place] with her grandmother in [...] year NAME: LORETTA CELESTIN : 89 HOSP#: [id number] MR#: [id number] CHART LOC: PCP: DICTATING: MARIA R Robin MD PSYCHIATRIC ADMISSION NOTE CONTINUED: unknown. TREATMENT PLAN: Resume outpatient medications, physical exam, collateral contact with community caregivers and social network, safety plan, aftercare plan and observe. 927 T:sn DD:[id number] TD:[id number] DT:[id number] TT:0924 JOB:[id number] MICHELLE/SHANNON MARIA R Robin MD ESigned by: Date:12/22/15 Time:06 NOT FOR REDISCLOSURE WITHOUT PATIENT'S INFORMED CONSENT EKG study * Event Display: ECG 12-Lead Authored Date: Please click on pdf link to open report * Event Display: ECG 12-Lead Authored Date: Ventricular Rate: 70 BPM Atrial Rate: 70 BPM P-R Interval: 192 ms QRS Duration: 82 ms Q-T Interval: 408 ms QTC Calculation(Bazett): 440 ms P [place]: 50 degrees R [place]: 46 degrees T [place]: 31 degrees Normal sinus rhythm Normal ECG When compared with ECG of 10-FEB-2024 19:54, Nonspecific T wave abnormality no longer evident in Anterior leads Confirmed by Chandler Torres ([id number]) on 02/20/2024 12:05:53 PM [place]: Chandler Torres Note * Mason Pillai DO: PERFORM Event Display: Patient Education Leaflets Authored Date: [id number] Chest Wall Pain: Costochondritis ?? [id number] Chest Wall Pain: Costochondritis The chest pain that you have had today is caused by costochondritis. This condition is caused by aninflammation of the cartilage joining your ribs to your breastbone. It's not caused by heart or lung problems. Your healthcare team has made sure that the chest pain you feel is not from a life threatening cause of chest pain such as heart attack, collapsed lung, blood clot in the lung, tear in theaorta, or esophageal rupture. The inflammation may have been brought on by a blow to the chest, lifting heavy objects, intense exercise, or an illness that made you cough and sneeze a lot. It??often occurs??during times of emotional stress.??It can be painful, but it's not dangerous. It usually goes away in 1 to 2 weeks. But it may happen again. Rarely, a more serious condition may cause symptomssimilar to costochondritis. That???s why it???s important to watch for the warning signs listed below. Home care Follow these guidelines when caring for yourself at home: ??? If you feel that emotional stress is a cause of your condition, try to figure out the sources of that stress. It may not be obvious. Learn ways to deal with the stress in your life. This can include regular exercise, muscle relaxation, meditation, or simply taking time out for yourself. ??? You may use acetaminophen, ibuprofen, or naproxen to control pain, unless another pain medicine was prescribed. If you have liver or kidney disease or ever had a stomach ulcer, talk with your healthcare provider before using these medicines. ???You can also help ease pain by using a hot, wet compress or heating pad. Use this with or without amedicated skin cream that helps relieves pain. ??? Do stretching exercise as advised by your provider. Typically rest is beneficial for the first few days. Avoid strenuous activity that worsens the pain. ??? Take any prescribed medicines as directed. ?? Follow-up care Follow up with your healthcare provider, or as advised. Call 911 Call 911 if any of these occur: ??? A change in the type of pain which feels different, becomes more serious, lasts longer, or spreads into your shoulder, arm, neck, jaw, or back ??? Fainting ??? Shortness of breath or trouble breathing ?? When to get medical advice Call your healthcare provider right away if any of these occur: ??? Pain gets worse when you breathe ??? Weakness or dizziness ??? Cough with dark-colored sputum (phlegm) or blood ??? Fever of 100.4??F (38??C) or higher, or as advised by your provider ?? Last Reviewed Date: 2021 ?? [id number] [employer]. All rights reserved. This information is not intended as a substitute for professional medical care. Always follow your healthcare professional's instructions. ?? Patient Care team information Care Team Personnel Name: Dean Rivas RN Position: [facility] RN Member Role: Primary Care Nurse Name: Jolanta Ace RN Position: [facility] RN Supv Member Role: Primary Care Nurse Name: Fatoumata Stokes DO Position: [facility] Physician - Primary Care Member Role: PCP Address: Address: [address] [place] [address] [facility] [place] [address]- Name: Awilda Grider RN Position: [facility] RN Member Role: Primary Care Nurse Name: Meagan Darden RN Position: [facility] RN Member Role: Primary Care Nurse Name: Chintan Leach DO Position: [facility] Renal MD Member Role: Lifetime Consulting Physician Address: Address: [address] [place], [place] [address] [place] [address]- Name: Chandler Ye RN Position: [facility] RN Member Role: Primary Care Nurse Name: Apurva Ji RN Position: [facility] ED RN W/OE and Tasks Member Role: Primary Care Nurse Name: Cordelia Matias RN Position: [facility] AMB Nurse Member Role: Primary Care Nurse Name: Riya Moore RN Position: [facility] RN Member Role: Primary Care Nurse Name: Radha Gutierrez Position: [facility] Outreach Member Role: Primary Care Nurse Name: Keenan Vincent RN Position: [facility] SN RN Member Role: Primary Care Nurse Name: Sasha Patricio RN Position: [facility] RN Member Role: Primary Care Nurse Name: Virgie Angel Position: [facility] RN Member Role: Primary Care Nurse Name: Malu Palomo Position: [facility] RN Member Role: Primary Care Nurse Name: Azeb Gusman RN Position: [facility] RN Member Role: Primary Care Nurse Name: Asher Diaz RN Position: [facility] RN Member Role: Primary Care Nurse Name: Kim Cornell RN Position: [facility] RN Member Role: Primary Care Nurse Name: Meredith Martinez RN Position: [facility] RN Member Role: Primary Care Nurse Name: Anika Gotti RN Position: [facility] RN Member Role: Primary Care Nurse Name: Kvng Tompkins RN Position: [facility] ED RN W/OE and Tasks Member Role: Primary Care Nurse Name: Rafiq Muñoz RN Position: [facility] RN Member Role: Primary Care Nurse Name: Justina Walker RN Position: [facility] RN Member Role: Primary Care Nurse Name: Ivone Hidalog RN Position: [facility] RN Member Role: Primary Care Nurse Name: Mazin Penn MD Position: [facility] Physician - Behavioral Health Member Role: Lifetime Consulting Physician Address: Address: [address] [place] [address]- [place] Care Team Related Persons Name: DORITA MCCOLLUM Address: home [address] [place] [address] Name: LIVSTEW Address: home [address] [place] [address] Name: LISA PALMA Address: [address] [place] [address]
--- OUTSIDE RECORDS SUMMARY | 2024-06-11 16:50 | XMS_ITS | Continuity of Care Document ---
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 professional's instructions. ?? * Krystin Will RN: PERFORM Event Display: Patient Education Leaflets Authored Date: [id number] Discharge Instructions for Acute Kidney Injury ?? 07437 Discharge Instructions for Acute Kidney Injury You have been diagnosed with acute kidney injury. This means that you have had a sudden episode of kidney failure or damage that causes your kidneys not to work correctly. When both kidneys are healthy, they help filter out fluid and waste from the blood and body.??Acute kidney injury has many causes. These include urinary blockages, infection, lack of enough blood supply, and medicines that can injure??kidneys. In some cases, acute kidney injury is short-term (temporary). This type lasts several days to a few months. This is because the kidney can repair itself. Acute kidney injury can also result in chronic kidney disease or end stage renal failure. Here are some directions for you to follow as you recover. Home care ??? Follow any directions for eating and drinking given to you by your healthcare provider. o Drink less fluid, if directed by your healthcare provider. o Keep a record of everything you eat and drink. ??? Measure the amount of urine and stool you have each day. ??? Weigh yourself every day, at the same time of day, and in the same kind of clothes. Keep a daily record of your daily weights. ??? Take your temperature every day. Keep a record of the results. ??? Learn to take your own blood pressure (BP). Your healthcare provider can teach you how to correctly measure your BP. Keep a record of your results. Bring the record to your follow-up appointments. Ask your healthcare provider when you should seek emergency medical attention. Your provider will tell you what blood pressure reading is dangerous. ??? Stay away from people who have infections. This includes people with colds, bronchitis, or skin conditions. ??? Practice good personal??hygiene. Wash your hands often. This is especially important if you have a catheter in place when you leave the hospital. Doing so helps keep you safe from infection. ??? Take your medicines exactly as directed. ??? You may need frequent blood and urine tests. These are done to keep track of your kidney function. ?? Follow-up care Follow up with your healthcare provider, or as advised. ?? When to call your healthcare provider Call your??healthcare provider??right away if any of the following occur: ??? Signs of bladder infection, such as urinating more often, burning or pain when you pee, pain above your pubic bone, bloodin your urine, or trouble starting your urine stream ??? Signs of infection around your catheter, such as redness, swelling, warmth, or fluid leaking ??? Rapid weight loss or weight gain, such as 3??pounds or more in 24 hours or 6 pounds or more in 7 days ??? Fever above 100.4?? F ( 38??C ) or as directed by your healthcare provider ??? Chills ??? Muscle aches ??? Night sweats ??? Very little or no urine output ??? Swelling of your hands, legs, or feet ??? Back pain ??? Abdominal (belly) pain ??? Extreme tiredness ?? Last Reviewed Date: 2022 ?? 1358-6919 [employer]. All rights reserved. This information is not intended as a substitute for professional medical care. Always follow your healthcare professional's instructions. ?? Patient Care team information Care Team Personnel Name: Dean Rivas RN Position: [facility] RN Member Role: Primary Care Nurse Name: Jolanta Ace RN Position: [facility] RN Supv Member Role: Primary Care Nurse Name: Fatoumata Stokes DO Position: [facility] Physician - Primary Care Member Role: PCP Address: Address: [address] [place] [address] Adult [place] [address]- Name: Britt Polanco RN Position: [facility] RN Member Role: Primary Care Nurse Name: Awilda Grider RN Position: [facility] RN Member Role: Primary Care Nurse Name: Meagan Darden RN Position: [facility] RN Member Role: Primary Care Nurse Name: Chintan Leach DO Position: [facility] Renal MD Member Role: Lifetime Consulting Physician Address: Address: [address] [place], [place] [address] [place] [address]- Name: Chandler Ye RN Position: [facility] RN Member Role: Primary Care Nurse Name: Apurva Ji RN Position: [facility] ED RN W/OE and Tasks Member Role: Primary Care Nurse Name: Cordelia Matias RN Position: [facility] AMB Nurse Member Role: Primary Care Nurse Name: Riya Moore RN Position: [facility] RN Member Role: Primary Care Nurse Name: Radha Gutierrez Position: [facility] Outreach Member Role: Primary Care Nurse Name: Keenan Vincent RN Position: [facility] SN RN Member Role: Primary Care Nurse Name: Sasha Patricio RN Position: [facility] RN Member Role: Primary Care Nurse Name: Virgie Angel Position: [facility] RN Member Role: Primary Care Nurse Name: Emma Kaminski RN Position: [facility] RN Member Role: Primary Care Nurse Name: Malu Palomo Position: [facility] RN Member Role: Primary Care Nurse Name: Azeb Gusman RN Position: [facility] RN Member Role: Primary Care Nurse Name: Asher Diaz RN Position: [facility] RN Member Role: Primary Care Nurse Name: Kim Cornell RN Position: [facility] RN Member Role: Primary Care Nurse Name: Meredith Martinez RN Position: [facility] RN Member Role: Primary Care Nurse Name: Anika Gotti RN Position: [facility] RN Member Role: Primary Care Nurse Name: Kvng Tompkins RN Position: [facility] ED RN W/OE and Tasks Member Role: Primary Care Nurse Name: Rafiq Muñoz RN Position: [facility] RN Member Role: Primary Care Nurse Name: Justina Walker RN Position: [facility] RN Member Role: Primary Care Nurse Name: Ivone Hidalgo RN Position: [facility] RN Member Role: Primary Care Nurse Name: Mazin Penn MD Position: [facility] Physician - Behavioral Health Member Role: Lifetime Consulting Physician Address: Address: [address] [place] [address]- [place] Care Team Related Persons Name: CHUNDORITA Address: home [address] [place] [address] Name: STEW PECK Address: home [address] [facility], [address] Name: LISA PALMA Address: home [address] [place] [address]
--- OUTSIDE RECORDS SUMMARY | 2024-06-11 16:51 | XMS_ITS | Continuity of Care Document ---
Author Organization [facility] Address [address] [place] [address]- Care Team Providers Care Store Specialist Name Role Phone Fatoumata Stokes DO Primary Care Physician Encounter [facility] Date(s): 09/06/23 - 09/13/23 [facility] [address] [place], [place] [address] Attending Physician: Laura Celeste NP Allergies, Adverse [...] Note: Clinical Varicella at age 5 Medications docusate-senna 50 mg-187 mg oral tablet 2 tablet, By Mouth, Daily at bedtime, for 14 days, # 28 tablet, 0 Refills, Acute 09/18/23 19:39:00 EST, 09/04/23 19:39:00 EST, Tablet, [facility], Partial fill upon patient request if [...] 0 Refills, Maintenance, 07/05/23 0:27:00 EDT, Nasal [place], Partial fill upon patient request if the [...] 0 Refills, Maintenance, 07/19/23 13:49:00 EDT, Capsule, [facility], Partial fill upon patient request if [...] Maintenance,07/19/23 13:53:00 EDT, Route to Pharmacy Electronically, [facility], Partial fill upon patient request if the prescription is for a schedule... Start Date: 07/19/23 Stop Date: 08/18/23 Status: Ordered traZODone 50 mg oral tablet 50 mg, 1, tablet, By Mouth, Daily at bedtime, # 30 tablet, Refills 0, Tot. Refills 0, Maintenance, 07/19/23 13:53:00 EDT, Route to Pharmacy Electronically, [facility], Partial fill upon patient request if [...] 07/19/23 13:50:00 EDT, Route to Pharmacy Electronically, [facility], Partial fill upon patient request if [...] recent to oldest [Reference Range]: 1 Height 168 cm (09/06/23 11:00 AM) Weight 98.9 kg (09/06/23 11:00 AM) Oxygen Saturation [94-100 %] 99 % (09/06/23 11:00 AM) Pulse Rate [55-90 bpm] 70 bpm (09/06/23 11:00 AM) Body Mass Index [18.5-24.99 kg/m2] 35.04 kg/m2 *>HHI* (09/06/23 11:00 AM) Blood Pressure [90-138/55-84 mm Hg] 114/ 79mm Hg (09/06/23 11:00 AM) Mode of Delivery (Oxygen) Room air (09/06/23 11:00 AM) Blood pressure sites Arm, left (09/06/23 11:00 AM) Dry Weight 98.9 kg (09/06/23 11:00 AM) Social History Social History Type Response Smoking Status 5-9 cigarettes (betw een 1/4 to 1/2 pack)/day in last 30 days; Interested in cessation: No; Patient wants NRT during admission Yes; Other: will accept nicotine gum; entered on: 07/14/23 Sex History and physical note * Event Display: History and Physical Hospital Authored Date: [id number] [place], [place] PSYCHIATRIC HISTORY ASSESS EXAM NAME: LOERTTA CELESTIN : 89 MR#: [id number] PCP: ADMITTED: 12/20/15 DATE OF SERVICE: 12/20/15 HPI - Hosp Psych H P Chief Complaint Pt was sent from [facility] here for hallunication History of Present Illness 24 yo AA Female with known schizophrenia was seen [place] [facility] [place]. Apparently pt has been lived in intermediate and [facility] QDAY Haloperidol* (Haldol*) 5 MG PO BID [place]vik Carbonate SR* (Lithobid*) 300 MG PO QDAY liTHIum Carbonate SR* (Anvik Carbonate SR*) 450 MG PO 4PM Discontinued Reported Medications Citalopram* (CeleXA*) 40 MG PO QDAY Benztropine* 0.5 MG PO BID buPROPion SR* 150 MG PO [id number] Trazodone* (Desyrel*) 100 MG PO HS RisperiDONE* [...] 324 MG QDAY 12/20 0900 CKD PO Anvik Carbonate 300 MG QDAY 12/20 0900 AC PO Polyethylene Glycol 17 GM QDAY 12/20 0900 CKD PO Benztropine Mesylate 1 MG 0900,1700 12/19 1700 AC PO Docusate Sodium 100 MG 0900,1700 12/19 1700 AC PO Haloperidol 5 MG 0900,1700 12/19 1700 AC PO Anvik Carbonate 450 MG PM 12/19 1700 AC [...] fullly ambulartory Care Level Complexity of Care [id number] Comprehensive history, comprehensive examination, medical decision making of low complexity, at least 20 minutes at the bedside, patient's floor/ unit. ESigned by: YAS GARZA MD Date:12/21/15 Time:1633 / NOT FOR REDISCLOSURE WITHOUT PATIENT'S INFORMED CONSENT Admission evaluation note * Event Display: Admit Notes Authored Date: [id number] [place], [place] PSYCHIATRIC ADMISSION NOTE NAME: LORETTA CELESTIN : 89 HOSPITAL #: [id number] MR #: [id number] CHART LOC: PCP: DICTATING: MARIA R Robin MD DATE OF ADMISSION: 12/20/15 DATE OF SERVICE: 12/21/15 CHIEF COMPLAINT: This 23-year-old woman was admitted to [facility] on 12/20/15 on a Conditional Voluntary [...] is living in a intermediate. Came to [place] with her grandmother in [...] year NAME: LORETTA CELESTIN : 89 HOSP#: [id number] MR#: [id number] CHART LOC: PCP: DICTATING: MARIA R Robin MD PSYCHIATRIC ADMISSION NOTE CONTINUED: unknown. TREATMENT PLAN: Resume outpatient medications, physical exam, collateral contact with community caregivers and social network, safety plan, aftercare plan and observe. 927 T:sn DD:[id number] TD:0745 DT:20151221 TT:0924 JOB:[id number] MICHELLE/SHANNON MARIA R Robin MD ESigned by: Date:12/22/15 Time:642 NOT FOR REDISCLOSURE WITHOUT PATIENT'S INFORMED CONSENT Patient Care team information Care Team Personnel Name: Dean Rivas RN Position: [facility] RN Member Role: Primary Care Nurse Name: Tian Naylor RN Position: [facility] RN Member Role: Primary Care Nurse Name: Jolanta Ace RN Position: [facility] RN Supv Member Role: Primary Care Nurse Name: Fatoumata Stokes DO Position: [facility] Physician - Primary Care Member Role: PCP Address: Address: [address] [place] [address] Adult [place] [address]- Name: Britt Polanco RN Position: [facility] RN Member Role: Primary Care Nurse Name: Awilda Grider RN Position: [facility] RN Member Role: Primary Care Nurse Name: Meagan Darden RN Position: [facility] RN Member Role: Primary Care Nurse Name: Chintan Leach DO Position: [facility] Renal MD Member Role: Lifetime Consulting Physician Address: Address: [address] [place], [place] [address] [place], [place] [address] Name: Chandler Ye RN Position: [facility] RN Member Role: Primary Care Nurse Name: Apurva Ji RN Position: [facility] ED RN W/OE and Tasks Member Role: Primary Care Nurse Name: Cordelia Matias RN Position: [facility] AMB Nurse Member Role: Primary Care Nurse Name: Riya Moore RN Position: [facility] RN Member Role: Primary Care Nurse Name: Radha Gutierrez Position: [facility] Outreach Member Role: Primary Care Nurse Name: Keenan Vincent RN Position: [facility] SN RN Member Role: Primary Care Nurse Name: Sasha Patricio RN Position: [facility] RN Member Role: Primary Care Nurse Name: Virgie Angel Position: [facility] RN Member Role: Primary Care Nurse Name: Emma Kaminski RN Position: [facility] RN Member Role: Primary Care Nurse Name: Malu Palomo Position: [facility] RN Member Role: Primary Care Nurse Name: Azeb Gusman RN Position: [facility] RN Member Role: Primary Care Nurse Name: Asher Diaz RN Position: [facility] RN Member Role: Primary Care Nurse Name: Kim Cornell RN Position: [facility] RN Member Role: Primary Care Nurse Name: Meredith Martinez RN Position: [facility] RN Member Role: Primary Care Nurse Name: Anika Gotti RN Position: [facility] RN Member Role: Primary Care Nurse Name: Kvng Tompkins RN Position: [facility] ED RN W/OE and Tasks Member Role: Primary Care Nurse Name: Rafiq Muñoz RN Position: [facility] RN Member Role: Primary Care Nurse Name: Justina Walker RN Position: [facility] RN Member Role: Primary Care Nurse Name: Ivone Hidalgo RN Position: [facility] RN Member Role: Primary Care Nurse Name: Mazin Penn MD Position: [facility] Physician - Behavioral Health Member Role: Lifetime Consulting Physician Address: Address: [address] [place] [address] [place] Care Team Related Persons Name: CHUNDORITA Address: [address] [place] [address] Name: STEW PECK Address: [address] [facility], [address] Name: LISA PALMA Address: home [address] [place] [address]
--- OUTSIDE RECORDS SUMMARY | 2024-06-11 16:51 | XMS_ITS | Continuity of Care Document ---
Author Organization [facility] Address [address] [place] [address]- Care Team Providers Care Medical Stenographer Name Role Phone Fatoumata Stokes DO Primary Care Physician Encounter [facility] Date(s): 02/17/24 - 02/24/24 [facility] [address] [place] [address]- Encounter Diagnosis Hyperprolactinoma(Discharge Diagnosis) - 02/17/24 Anemia(Discharge Diagnosis) - 02/17/24 Attending Physician: Fatoumata Stokes DO Allergies, Adverse [...] 0 Refills, Maintenance, 02/17/24 9:30:00 EDT, Tablet, [facility], Partial fill upon patient request if [...] Refills, Soft Stop, 12/21/23 15:20:00 EDT, Tablet, [facility], Partial fill upon patient request if [...] 0 Refills, Maintenance, 07/05/23 0:27:00 EDT, Nasal [place], Partial fill upon patient request if the [...] 02/13/24 16:31:00 EDT, Route to Pharmacy Electronically, [facility], 163, cm, 02/11/24 1:23:00 EDT, Height, [...] 0 Refills, Maintenance, 12/23/23 17:55:00 EDT, ECCapsule, [facility], Partial fill upon patient request [...] Maintenance,07/19/23 13:53:00 EDT, Route to Pharmacy Electronically, [facility], Partial fill upon patient request if the prescription is for a schedule... Start Date: 07/19/23 Stop Date: 08/18/23 Status: Ordered Provera 10 mg oral tablet 10 mg, 1, tablet, By Mouth, Daily, call the office at [phone] if you do not get a menstrual cycle., # 10 tablet, Refills 0, Tot. Refills 0, Maintenance, 12/21/23 15:20:00 EDT, Route to Pharmacy Electronically, [facility], Partial fill u... Start Date: 12/21/23 Stop Date: 12/31/23 Status: Ordered traZODone 50 mg oral tablet 50 mg, 1, tablet, By Mouth, Daily at bedtime, # 30 tablet, Refills 0, Tot. Refills 0, Maintenance, 07/19/23 13:53:00 EDT, Route to Pharmacy Electronically, [facility], Partial fill upon patient request if the prescription is for a schedule I... Start Date: 07/19/23 Stop Date: 08/18/23 Status: Ordered Vitamin C 250 mg oral tablet See Instructions, 1 tablet By Mouth every other day with iron Daily at 9am, # 45 tablet, 11 Refills, Maintenance, 02/17/24 9:32:00 EDT, [facility], 163, cm, 02/17/24 9:01:00 EDT, Height, 96.5, kg, 02/11/24 1:23:00 EDT, Dry Weight Start Date: 02/17/24 Status: Ordered Vitamin C 250 mg oral tablet 1 tablet, By Mouth, Daily in AM, AT 9AM., # 30 tablet, 0 Refills, Maintenance, 02/02/24 15:05:00 EDT, [facility], 163, cm, 01/24/24 9:01:00 EDT, Height, 100.2, kg, 10/17/23 16:02:00 EST, Dry Weight Start Date: 02/02/24 Status: Ordered ZyPREXA 10 mg oral tablet 10 mg, 1, tablet, By Mouth, Daily at bedtime, # 30 tablet, Refills 0, Tot. Refills 0, Maintenance, 07/19/23 13:50:00 EDT, Route to Pharmacy Electronically, [facility], Partial fill upon patient request if [...] Effective Dates Health Status Clinical Service Informant Hyperprolactinoma Discharge Diagnosis 02/17/24 Anemia Discharge Diagnosis 02/17/24 Vital Signs Most recent to oldest [Reference Range]: 1 Height 163 cm (02/17/24 9:01 AM) Weight 99.0 kg (02/17/24 9:01 AM) Oxygen Saturation [94-100 %] 98 % (02/17/24 9:01 AM) Pulse Rate [55-90 bpm] 94 bpm *H* (02/17/24 9:01 AM) Body Mass Index [18.5-24.99 kg/m2] 37.26 kg/m2 *>HHI* (02/17/24 9:01 AM) Blood Pressure [90-138/55-84 mm Hg] 121/ 84mm Hg (02/17/24 9:01 AM) Mode of Delivery (Oxygen) Room air (02/17/24 9:01 AM) Blood pressure sites Arm, left (02/17/24 9:01 AM) Weight Obtained Via Standing scale (02/17/24 9:01 AM) Social History Social History Type Response Smoking Status 5-9 cigarettes (betw een 1/4 to 1/2 pack)/day in last 30 days; Interested in cessation: No; Patient wants NRT during admission Yes; Other: will accept nicotine gum; entered on: 07/14/23 Sex History and physical note * Event Display: History and Physical Hospital Authored Date: [id number] [place], [place] PSYCHIATRIC HISTORY ASSESS EXAM NAME: LORETTA CELESTIN : [birth year] MR#: [id number] PCP: ADMITTED: 12/20/15 DATE OF SERVICE: 12/20/15 HPI - Hosp Psych H P Chief Complaint Pt was sent from [facility] ER here for hallunication History of Present Illness 24 yo AA Female with known schizophrenia was seen at [facility] ER for hallucination. Apparently pt has been lived in intermediate and sent to [facility] for acute exacerbation of [...] QDAY Haloperidol* (Haldol*) 5 MG PO BID [place] Carbonate SR* (Lithobid*) 300 MG PO QDAY liTHIum Carbonate SR* ([place] Carbonate SR*) 450 MG PO 4PM Discontinued Reported Medications Citalopram* (CeleXA*) 40 MG PO QDAY Benztropine* 0.5 MG PO BID buPROPion SR* 150 MG PO [id number] Trazodone* (Desyrel*) 100 MG PO HS RisperiDONE* [...] 324 MG QDAY 12/20 09 CKD PO [place] Carbonate 300 MG QDAY 12/20 09 AC PO Polyethylene Glycol 17 GM QDAY 12/20 09 CKD PO Benztropine Mesylate 1 MG 0900,1700 03/26 1700 AC PO Docusate Sodium 100 MG 0900,12/19 1700 AC PO Haloperidol 5 MG 0900,12/19 1700 AC PO [place] Carbonate 450 MG PM 12/19 1700 AC [...] fullly ambulartory Care Level Complexity of Care [id number] Comprehensive history, comprehensive examination, medical decision making of low complexity, at least 20 minutes at the bedside, patient's floor/ unit. ESigned by: YAS GARZA MD Date:12/21/15 Time:1633 / NOT FOR REDISCLOSURE WITHOUT PATIENT'S INFORMED CONSENT Admission evaluation note * Event Display: Admit Notes Authored Date: [id number] [place], [place] PSYCHIATRIC ADMISSION NOTE NAME: LORETTA CELESTIN : 89 HOSPITAL #: [id number] MR #: [id number] CHART LOC: PCP: DICTATING: MARIA R Robin MD DATE OF ADMISSION: 12/20/15 DATE OF SERVICE: 12/21/15 CHIEF COMPLAINT: This 23-year-old woman was admitted to [facility] on 12/20/15 on a Conditional Voluntary [...] is living in a intermediate. Came to [place] with her grandmother in [...] year NAME: LORETTA CELESTIN : [birth year] HOSP#: [id number] MR#: [id number] CHART LOC: PCP: DICTATING: MARIA R Robin MD PSYCHIATRIC ADMISSION NOTE CONTINUED: unknown. TREATMENT PLAN: Resume outpatient medications, physical exam, collateral contact with community caregivers and social network, safety plan, aftercare plan and observe. 927 T:sn DD:[id number] TD:0745 DT:[id number] TT:0924 JOB:[id number] MICHELLE/SHANNON MARIA R Robin MD ESigned by: Date:12/22/15 Time:642 NOT FOR REDISCLOSURE WITHOUT PATIENT'S INFORMED CONSENT Note * Evelia Griggs: PERFORM Event Display: Patient Education/Instruction Authored Date: [id number] Ambulatory Adult Visit Summary [facility] [address] [place] [address] Name: LORETTA CELESTIN : 1990?? Visit: 02/17/2024 08:54?? Ambulatory Visit Instructions ?? Your Care Team Primary Care Provider Fatoumata Stokes DO? This Visit Provider Fatoumaat Stokes DO Your Diagnosis Hyperprolactinoma Anemia Vitals Signs Pulse Rate:??94 bpm??High Height: 163 cm Systolic Blood Pressure: 121 mm Hg Weight: 99 kg Diastolic Blood Pressure: 84 mm Hg Body Mass Index:??37.26 kg/m2??Critical Oxygen Saturation: 98 % Body surface area: 2.12 What to do next Scheduled Follow-Up Appointments Tuesday 5:00 PM EDT ?? Where: [facility] [address] [place] [address]- Status: Pending Follow-Up Appointments Follow Up with??Fatoumata Stokes DO When:??05/31/2024 01:40 PM EDT Where: [facility] [place] [address]- Future Orders Complete Urinalysis - Routine, Once, 12/19/23 12:25:00 EDT, Order for Today, [facility], Urine?? [facility] Test - Routine, Once, 01/24/24 9:36:00 EDT, Single or Recurring Future Order, [facility], OTHER?? Medications The list below reflects the information in our records and provided by you today along with any changes made during this visit. Please continue your medications until treatment is completed or stopped by your provider. If this is different from the information you have or there are other questions,please contact the prescribing provider. What How Much When Instructions New Acetaminophen (acetaminophen 500 mg oral tablet) 2 tab(s) Oral Twice a day as needed for Pain , Mild Pickup at [facility] Changed Ascorbic Acid (Vitamin C 250 mg oral tablet) 1 tab(s) Oral Daily in the morning AT 9AM. ?? Changed Ascorbic Acid (Vitamin C 250 mg oral tablet) See instructions 1 tablet By Mouth every other day with iron Daily at 9am ?? Pickup at [facility] Changed Ferrous Sulfate (ferrous sulfate 325 mg oral enteric coated tablet) 325 Milligram Oral Every other day Changed Ferrous Sulfate (ferrous sulfate 325 mg oral enteric coated tablet) See instructions Take one tablet By Mouth every other day. Take with vitamin C to help absorption at 9am ?? Pickup at [facility] Unchanged Benztropine (benztropine 1 mg oral tablet) 1 tab(s) Oral Twice a day Unchanged Fluconazole (Diflucan 150 mg oral tablet) 1 tab(s) Oral Every 72 hours to treat yeast. ?? Unchanged Fluticasone Nasal (fluticasone 50 mcg/ inh nasal spray) 1 spray(s) Nares, Both Twice a day as needed for Other nasal allergy symptoms ?? Unchanged [place] (lithium 450 mg oral tablet, extended release) 1 tab(s) Oral Twice a day Unchanged Loratadine (loratadine 10 mg oral tablet) 1 tab(s) Oral Daily AT 9AM. ?? Unchanged MedroxyPROGESTERone (Provera 10 mg oral tablet) 1 tab(s) Oral Daily Duration: 10 Days call the office at [phone] if you do not get a menstrual [...] Oral Daily at Bedtime Duration: 30 Days Pharmacy Information [facility]: [address] [place] [address] [phone] Medications and Immunizations Administered Medications Given During [...] are strongly encouraged to quit. Please call [facility] at [phone] or [phone] ([phone]) or log in to [email or web address] for referrals to smoking cessation programs. ?? The National Suicide Prevention Hotline is available 18/04 if you or someone you know needs to find a reason to keep living. By calling 7-107-981-talk (7957) you'll be connected to a skilled, trained counselor at a crisis center in your area. [facility] [employer] Portal You can view and manage your care through the patient portal or by using a health care lonny of your choosing. [facility] is a website that allows you to securely view your medical information including your hospital discharge summary, office visit summaries, medications and follow-up visits. You can also request appointments, renew medications, and request access to your medical information using a health care lonny of your choosing, or just ask a question. You can enroll at [email or web address] or register during your next office visit. [facility], in keeping with [facility] guidance, no longer requires face masks [...] primary care provider, you may find a [facility] provider by calling [facility] [employer] [facility] at [phone]. Patient Care team information Care Team Personnel Name: Dean Rivas RN Position: S RN Member Role: Primary Care Nurse Name: Jolanta Ace RN Position: S RN Supv Member Role: Primary Care Nurse Name: Fatoumata Stokes DO Position: S Physician - Primary Care Member Role: PCP Address: Address: [address] [place] [address] Adult & Pediatric Medicine [place], [place] [address] Name: Awilda Grider RN Position: S RN Member Role: Primary Care Nurse Name: Meagan Darden RN Position: S RN Member Role: Primary Care Nurse Name: Chintan Leach DO Position: [facility] Renal MD Member Role: Lifetime Consulting Physician Address: Address: [address] [place] [address] [address] [facility] [place] [address]- [place] Name: Chandler Ye RN Position: [facility] RN Member Role: Primary Care Nurse Name: Apurva Ji RN Position: [facility] ED RN W/OE and Tasks Member Role: Primary Care Nurse Name: Cordelia Matias RN Position: [facility] AMB Nurse Member Role: Primary Care Nurse Name: Riya Moore RN Position: [facility] RN Member [...] Primary Care Nurse Name: Malu Palomo Position: [facility] RN Member Role: Primary Care Nurse Name: Azeb Gusman RN Position: [facility] RN Member Role: Primary Care Nurse Name: Asher Diaz RN Position: [facility] RN Member Role: Primary Care Nurse Name: Kim Cornell RN Position: [facility] RN Member Role: Primary Care Nurse Name: Meredith Martinez RN Position: [facility] RN Member Role: Primary Care Nurse Name: Anika Gotti RN Position: [facility] RN Member Role: Primary Care Nurse Name: Kvng Tompkins RN Position: [facility] ED RN W/OE and Tasks Member Role: Primary Care Nurse Name: Rafiq Muñoz RN Position: [facility] RN Member Role: Primary Care Nurse Name: Justina Walker RN Position: [facility] RN Member Role: Primary Care Nurse Name: Ivone Hidalgo RN Position: [facility] RN Member Role: Primary Care Nurse Name: Mazin Penn MD Position: [facility] Physician - Behavioral Health Member Role: Lifetime Consulting Physician Address: Address: [address] [place] [address]- [place] Care Team Related Persons Name: DORITA MCCOLLUM Address: home [address] [place] [address] Name: STEW PECK Address: home [address] [place] [address] Name: LISA PALMA Address: home [address] [place] [address]
--- OUTSIDE RECORDS SUMMARY | 2024-06-11 16:51 | XMS_ITS | Continuity of Care Document ---
Author Organization [facility] Address [address] [place] [address]- Care Team Providers Care Production Control Analyst Name Role Phone Fatoumata Stokes DO Primary Care Physician Encounter [facility] Date(s): 12/02/23 - 01/04/24 [facility] [address] [place], [place] [address] Attending Physician: Courtney Bassett MD Allergies, Adverse [...] Refills, Soft Stop, 12/21/23 15:20:00 EDT, Tablet, [facility], Partial fill upon patient request if the prescription is for a schedule II opioid drug., greer [place], 11/25... Start Date: 12/21/23 Status: Ordered ferrous [...] 0 Refills, Maintenance, 07/05/23 0:27:00 EDT, Nasal [place], Partial fill upon patient request if the [...] 0 Refills, Maintenance, 12/23/23 17:55:00 EDT, ECCapsule, [facility], Partial fill upon patient request if the prescription is for a schedule II opioid drug., [place], 12/19/23 12:00:00 EDT,... Start Date: 12/23/23 Status: [...] Maintenance,07/19/23 13:53:00 EDT, Route to Pharmacy Electronically, [facility], Partial fill upon patient request if the prescription is for a schedule... Start Date: 07/19/23 Stop Date: 08/18/23 Status: Ordered Provera 10 mg oral tablet 10 mg, 1, tablet, By Mouth, Daily, call the office at [phone] if you do not get a menstrual cycle., # 10 tablet, Refills 0, Tot. Refills 0, Maintenance, 12/21/23 15:20:00 EDT, Route to Pharmacy Electronically, [facility], Partial fill u... Start Date: 12/21/23 Stop Date: 12/31/23 Status: Ordered traZODone 50 mg oral tablet 50 mg, 1, tablet, By Mouth, Daily at bedtime, # 30 tablet, Refills 0, Tot. Refills 0, Maintenance, 07/19/23 13:53:00 EDT, Route to Pharmacy Electronically, [facility], Partial fill [...] 07/19/23 13:50:00 EDT, Route to Pharmacy Electronically, [facility], Partial fill upon patient request if [...] Display: History and Physical Hospital Authored Date: [id number] [place], [place] PSYCHIATRIC HISTORY ASSESS EXAM NAME: LORETTA CELESTIN : [birth year] MR#: [id number] PCP: ADMITTED: 12/20/15 DATE OF SERVICE: 12/20/15 HPI - Hosp Psych H P Chief Complaint Pt was sent from [facility] ER here for hallunication History of Present Illness 24 yo AA Female with known schizophrenia was seen at [facility] ER for hallucination. Apparently pt has been lived in mcc and sent to [facility] for acute exacerbation [...] QDAY Haloperidol* (Haldol*) 5 MG PO BID [place] Carbonate SR* (Lithobid*) 300 MG PO QDAY liTHIum Carbonate SR* ([place] Carbonate SR*) 450 MG PO 4PM Discontinued Reported Medications Citalopram* (CeleXA*) 40 MG PO QDAY Benztropine* 0.5 MG PO BID buPROPion SR* 150 MG PO [id number] Trazodone* (Desyrel*) 100 MG PO HS RisperiDONE* [...] 324 MG QDAY 12/20 0900 CKD PO [place] Carbonate 300 MG QDAY 12/20 0900 AC PO Polyethylene Glycol 17 GM QDAY 12/20 0900 CKD PO Benztropine Mesylate 1 MG 0900,1700 12/19 1700 AC PO Docusate Sodium 100 MG 0900,12/19 1700 AC PO Haloperidol 5 MG 0900,17012/19 1700 AC PO [place] Carbonate 450 MG PM 12/19 1700 AC [...] fullly ambulartory Care Level Complexity of Care E40352 Comprehensive history, comprehensive examination, medical decision making of low complexity, at least 20 minutes at the bedside, patient's floor/ unit. ESigned by: YAS GARZA MD Date:12/21/15 Time:1633 / NOT FOR REDISCLOSURE WITHOUT PATIENT'S INFORMED CONSENT Admission evaluation note * Event Display: Admit Notes Authored Date: [id number] [place], [place] PSYCHIATRIC ADMISSION NOTE NAME: LORETTA CELESTIN : [birth year] HOSPITAL #: [id number] MR #: [id number] CHART LOC: PCP: DICTATING: MARIA R Robin MD DATE OF ADMISSION: 12/20/15 DATE OF SERVICE: 12/21/15 CHIEF COMPLAINT: This 23-year-old woman was admitted to [facility] on 12/20/15 on a Conditional Voluntary [...] is living in a mcc. Came to [place] with her grandmother in [...] year NAME: LORETTA CELESTIN : [birth year] HOSP#: [id number] MR#: [id number] CHART LOC: PCP: DICTATING: MARIA R Robin MD PSYCHIATRIC ADMISSION NOTE CONTINUED: unknown. TREATMENT PLAN: Resume outpatient medications, physical exam, collateral contact with community caregivers and social network, safety plan, aftercare plan and observe. 927 T: DD:[id number] TD:0745 DT:20151221 TT:0924 [id number] TORIE MARIA R Robin MD ESigned by: Date:12/22/15 Time:0643 NOT FOR REDISCLOSURE WITHOUT PATIENT'S INFORMED CONSENT Patient Care team information Care Team Personnel Name: Dean Rivas RN Position: [facility] RN Member Role: Primary Care Nurse Name: Jolanta Ace RN Position: [facility] RN Supv Member Role: Primary Care Nurse Name: Fatoumata Stokes DO Position: [facility] Physician - Primary Care Member Role: PCP Address: Address: [address] [place] [address] Adult [place] [address]- Name: Awilda Grider RN Position: [facility] RN Member Role: Primary Care Nurse Name: Meagan Darden RN Position: [facility] RN Member Role: Primary Care Nurse Name: Chintan Laech DO Position: [facility] Renal MD Member Role: Lifetime Consulting Physician Address: Address: [address] [place], [place] [address] [place] [place] [address]- Name: Chandler Ye RN Position: [facility] RN Member Role: Primary Care Nurse Name: Apurva Ji RN Position: [facility] ED RN W/OE and Tasks Member Role: Primary Care Nurse Name: Cordelia Matias RN Position: [facility] AMB Nurse Member Role: Primary Care Nurse Name: Riya Moore RN Position: [facility] RN Member Role: Primary Care Nurse Name: Radha Gutierrez Position: [facility] Outreach Member Role: Primary Care Nurse Name: Keenan Vincent RN Position: [facility] SN RN Member Role: Primary Care Nurse Name: Sasha Patricio RN Position: [facility] RN Member Role: Primary Care Nurse Name: Virgie Angel Position: [facility] RN Member Role: Primary Care Nurse Name: Malu Palomo Position: [facility] RN Member Role: Primary Care Nurse Name: Azeb Gusman RN Position: [facility] RN Member Role: Primary Care Nurse Name: Asher Diaz RN Position: [facility] RN Member Role: Primary Care Nurse Name: Kim Cornell RN Position: [facility] RN Member Role: Primary Care Nurse Name: Meredith Martinez RN Position: [facility] RN Member Role: Primary Care Nurse Name: Anika Gotti RN Position: [facility] RN Member Role: Primary Care Nurse Name: Kvng Tompkins RN Position: [facility] ED RN W/OE and Tasks Member Role: Primary Care Nurse Name: Rafiq Muñoz RN Position: [facility] RN Member Role: Primary Care Nurse Name: Justina Walker RN Position: [facility] RN Member Role: Primary Care Nurse Name: Ivone Hidalgo RN Position: [facility] RN Member Role: Primary Care Nurse Name: Mazin Penn MD Position: [facility] Physician - Behavioral Health Member Role: Lifetime Consulting Physician Address: Address: [address] [place] [address]- [place] Care Team Related Persons Name: MICK MCCOLLUMTRA Address: [address] [place] [address] Name: STEW PECK Address: home [address] [place] [address] Name: LISA PALMA Address: home [address] [place] [address]
--- OUTSIDE RECORDS SUMMARY | 2024-06-11 16:51 | XMS_ITS | Continuity of Care Document ---
Author Organization [facility] Address [address] [place] [address]- Care Team Providers Care Correctional Agency Director Name Role Phone Fatoumata Stokes DO Primary Care Physician [facility]23 - 09/28/23 [facility] [address], [place] [address] Allergies, Adverse Reactions, Alerts Substance Reaction [...] 0 Refills, Maintenance, 07/05/23 0:27:00 EDT, Nasal [place], Partial fill upon patient request if the [...] 0 Refills, Maintenance, 07/19/23 13:49:00 EDT, Capsule, [facility], Partial fill upon patient request if [...] Maintenance,07/19/23 13:53:00 EDT, Route to Pharmacy Electronically, [facility], Partial fill upon patient request if the prescription is for a schedule... Start Date: 07/19/23 Stop Date: 08/18/23 Status: Ordered traZODone 50 mg oral tablet 50 mg, 1, tablet, By Mouth, Daily at bedtime, # 30 tablet, Refills 0, Tot. Refills 0, Maintenance, 07/19/23 13:53:00 EDT, Route to Pharmacy Electronically, [facility], Partial fill upon patient request if [...] 07/19/23 13:50:00 EDT, Route to Pharmacy Electronically, [facility], Partial fill upon patient request if [...] Display: History and Physical Hospital Authored Date: [id number] [place], [place] PSYCHIATRIC HISTORY ASSESS EXAM NAME: LORETTA CELESTIN : [birth year] MR#: [id number] PCP: ADMITTED: 12/20/15 DATE OF SERVICE: 12/20/15 HPI - Hosp Psych H P Chief Complaint Pt was sent from [facility] here for hallunication History of Present Illness 24 yo AA Female with known schizophrenia was seen at [facility] for hallucination. Apparently pt has been lived in half-way and sent to [facility] for acute exacerbation of [...] QDAY Haloperidol* (Haldol*) 5 MG PO BID [place] Carbonate SR* (Lithobid*) 300 MG PO QDAY liTHIum Carbonate SR* ([place] Carbonate SR*) 450 MG PO 4PM Discontinued Reported Medications Citalopram* (CeleXA*) 40 MG PO QDAY Benztropine* 0.5 MG PO BID buPROPion SR* 150 MG PO [id number] Trazodone* (Desyrel*) 100 MG PO HS RisperiDONE* [...] 324 MG QDAY 12/20 09 CKD PO [place] Carbonate 300 MG QDAY 12/20 09 AC PO Polyethylene Glycol 17 GM QDAY 12/20 09 CKD PO Benztropine Mesylate 1 MG 0900,12/19 1700 AC PO Docusate Sodium 100 MG 0900,12/19 1700 AC PO Haloperidol 5 MG 0900,12/19 1700 AC PO [place] Carbonate 450 MG PM 12/19 1700 AC [...] fullly ambulartory Care Level Complexity of Care [id number] Comprehensive history, comprehensive examination, medical decision making of low complexity, at least 20 minutes at the bedside, patient's floor/ unit. ESigned by: YAS GARZA MD Date:12/21/15 Time:1633 / NOT FOR REDISCLOSURE WITHOUT PATIENT'S INFORMED CONSENT Admission evaluation note * Event Display: Admit Notes Authored Date: [id number] [place], [place] PSYCHIATRIC ADMISSION NOTE NAME: LORETTA CELESTIN : 89 HOSPITAL #: [id number] MR #: [id number] CHART LOC: PCP: DICTATING: MARIA R Robin MD DATE OF ADMISSION: 12/20/15 DATE OF SERVICE: 12/21/15 CHIEF COMPLAINT: This 23-year-old woman was admitted to [facility] on 12/20/15 on a Conditional [...] is living in a half-way. Came to [place] with her grandmother in [...] year NAME: LORETTA CELESTIN : 89 HOSP#: [id number] MR#: [id number] CHART LOC: PCP: DICTATING: MARIA R Robin MD PSYCHIATRIC ADMISSION NOTE CONTINUED: unknown. TREATMENT PLAN: Resume outpatient medications, physical exam, collateral contact with community caregivers and social network, safety plan, aftercare plan and observe. 927 T:sn DD:[id number] TD:0745 DT:20151221 TT:0924 JOB:[id number] MICHELLE/SHANNON MARIA R Robin MD ESigned by: Date:12/22/15 Time:642 NOT FOR REDISCLOSURE WITHOUT PATIENT'S INFORMED CONSENT Patient Care team information Care Team Personnel Name: Dean Rivas RN Position: [facility] RN Member Role: Primary Care Nurse Name: Jolanta Ace RN Position: [facility] RN Supv Member Role: Primary Care Nurse Name: Fatoumata Stokes DO Position: [facility] Physician - Primary Care Member Role: PCP Address: Address: [address] [place] [address] Adult & [place] [address]- Name: Britt Polanco RN Position: [facility] RN Member Role: Primary Care Nurse Name: Awilda Grider RN Position: S RN Member Role: Primary Care Nurse Name: Meagan Darden RN Position: [facility] RN Member Role: Primary Care Nurse Name: Chintan Leach DO Position: [facility] Renal MD Member Role: Lifetime Consulting Physician Address: Address: [address] [place], [place] [address] [place] [address]- Name: Chandler Ye RN Position: [facility] RN Member Role: Primary Care Nurse Name: Apurva Ji RN Position: [facility] ED RN W/OE and Tasks Member Role: Primary Care Nurse Name: Cordelia Matias RN Position: [facility] AMB Nurse Member Role: Primary Care Nurse Name: Riya Moore RN Position: [facility] RN Member Role: Primary Care Nurse Name: Radha Gutierrez Position: [facility] Outreach Member Role: Primary Care Nurse Name: Keenan Vincent RN Position: [facility] SN RN Member Role: Primary Care Nurse Name: Sasha Patricio RN Position: [facility] RN Member Role: Primary Care Nurse Name: Virgie Angel Position: [facility] RN Member Role: Primary Care Nurse Name: Emma Kaminski RN Position: [facility] RN Member Role: Primary Care Nurse Name: Malu Palomo Position: [facility] RN Member Role: Primary Care Nurse Name: Azeb Gusman RN Position: [facility] RN Member Role: Primary Care Nurse Name: Asher Diaz RN Position: [facility] RN Member Role: Primary Care Nurse Name: Kim Cornell RN Position: [facility] RN Member Role: Primary Care Nurse Name: Meredith Martinez RN Position: [facility] RN Member Role: Primary Care Nurse Name: Anika Gotti RN Position: [facility] RN Member Role: Primary Care Nurse Name: Kvng Tompkins RN Position: [facility] ED RN W/OE and Tasks Member Role: Primary Care Nurse Name: Rafiq Muñoz RN Position: [facility] RN Member Role: Primary Care Nurse Name: Justina Walker RN Position: [facility] RN Member Role: Primary Care Nurse Name: Ivone Hidalgo RN Position: [facility] RN Member Role: Primary Care Nurse Name: Mazin Penn MD Position: [facility] Physician - Behavioral Health Member Role: Lifetime Consulting Physician Address: Address: [address] [place] [address] [place] Care Team Related Persons Name: DORITA MCCOLLUM Address: [address] [place] [address] Name: STEW PECK Address: home [address] [facility], [address] Name: LISA PALMA Address: home [address] [place] [address]
--- OUTSIDE RECORDS SUMMARY | 2024-06-11 16:51 | XMS_ITS | Continuity of Care Document ---
Author Organization [facility] Address [address] [place] [address]- Care Team Providers Care Dynamiter Name Role Phone Fatoumata Stokes DO Primary Care Physician [facility]s): 03/09/24 - 04/08/24 [facility] [address] [place], [place] [address] Allergies, Adverse Reactions, Alerts Substance Reaction [...] 0 Refills, Maintenance, 02/17/24 9:30:00 EDT, Tablet, [facility], Partial fill upon patient request if [...] Refills, Soft Stop, 12/21/23 15:20:00 EDT, Tablet, [facility], Partial fill upon patient request if [...] 0 Refills, Maintenance, 03/09/24 14:42:00 EDT, Nasal [place], [facility], Partial fill upon patient request if the prescription is for a schedule II opi... Start Date: 03/09/24 Status: Ordered Lidoderm 5% film 1 patch, Topically, Daily, remove patches after 12 hours, # 30 patch, 0 Refills, Maintenance, 03/09/24 14:43:00 EDT, Film, [facility], Partial fill upon patient [...] 02/13/24 16:31:00 EDT, Route to Pharmacy Electronically, [facility], 163, cm, 02/11/24 1:23:00 EDT, Height, [...] 0 Refills, Maintenance, 12/23/23 17:55:00 EDT, ECCapsule, [facility], Partial fill upon patient request if [...] By Mouth, Daily, call the office at [phone] if you do not get a menstrual cycle., # 10 tablet, Refills 0, Tot. Refills 0, Maintenance, 12/21/23 15:20:00 EDT, Route to Pharmacy Electronically, [facility], Partial fill u... Start Date: 12/21/23 Stop Date: 12/31/23 Status: Ordered traZODone 50 mg oral tablet 50 mg, 1, tablet, By Mouth, Daily at bedtime, # 30 tablet, Refills 0, Tot. Refills 0, Maintenance, 07/19/23 13:53:00 EDT, Route to Pharmacy Electronically, [facility], Partial fill upon patient request if the prescription is for a schedule I... Start Date: 07/19/23 Stop Date: 08/18/23 Status: Ordered Vitamin C 250 mg oral tablet See Instructions, 1 tablet By Mouth every other day with iron Daily at 9am, # 45 tablet, 11 Refills, Maintenance, 02/17/24 9:32:00 EDT, [facility], 163, cm, 02/17/24 9:01:00 EDT, Height, 96.5, kg, 02/11/24 1:23:00 EDT, Dry Weight Start Date: 02/17/24 Status: Ordered Vitamin C 250 mg oral tablet 1 tablet, By Mouth, Daily in AM, AT 9AM., # 30 tablet, 0 Refills, Maintenance, 02/02/24 15:05:00 EDT, [facility], 163, cm, 01/24/24 9:01:00 EDT, [...] Display: History and Physical Hospital Authored Date: [id number] [place], [place] PSYCHIATRIC HISTORY ASSESS EXAM NAME: LORETTA CELESTIN : [birth year] MR#: [id number] PCP: ADMITTED: 12/20/15 DATE OF SERVICE: 12/20/15 HPI - Hosp Psych H P Chief Complaint Pt was sent from [facility] here for hallunication History of Present Illness 24 yo AA Female with known schizophrenia was seen at [facility] for hallucination. Apparently pt has been lived in fci and sent to [facility] QDAY Haloperidol* (Haldol*) 5 MG PO BID [place] Carbonate SR* (Lithobid*) 300 MG PO QDAY liTHIum Carbonate SR* ([place] Carbonate SR*) 450 MG PO 4PM Discontinued Reported Medications Citalopram* (CeleXA*) 40 MG PO QDAY Benztropine* 0.5 MG PO BID buPROPion SR* 150 MG PO [id number] Trazodone* (Desyrel*) 100 MG PO HS RisperiDONE* [...] 324 MG QDAY 12/20 0900 CKD PO [place] Carbonate 300 MG QDAY 12/20 0900 AC PO Polyethylene Glycol 17 GM QDAY 12/20 0900 CKD PO Benztropine Mesylate 1 MG 0900,1700 12/19 1700 AC PO Docusate Sodium 100 MG 0900,1700 12/19 1700 AC PO Haloperidol 5 MG 0900,1700 12/19 1700 AC PO [place] Carbonate 450 MG PM 12/19 1700 AC [...] fullly ambulartory Care Level Complexity of Care [id number] Comprehensive history, comprehensive examination, medical decision making of low complexity, at least 20 minutes at the bedside, patient's floor/ unit. ESigned by: YAS GARZA MD Date:12/21/15 Time:1633 / NOT FOR REDISCLOSURE WITHOUT PATIENT'S INFORMED CONSENT Admission evaluation note * Event Display: Admit Notes Authored Date: [id number] [place], [place] PSYCHIATRIC ADMISSION NOTE NAME: LORETTA CELESTIN : 89 HOSPITAL #: [id number] MR #: [id number] CHART LOC: PCP: DICTATING: MARIA R Robin MD DATE OF ADMISSION: 12/20/15 DATE OF SERVICE: 12/21/15 CHIEF COMPLAINT: This 23-year-old woman was admitted to [facility] on 12/20/15 [...] is living in a fci. Came to [place] with her grandmother [...] year NAME: LORETTA CELESTIN : 89 HOSP#: [id number] MR#: [id number] CHART LOC: PCP: DICTATING: MARIA R Robin MD PSYCHIATRIC ADMISSION NOTE CONTINUED: unknown. TREATMENT PLAN: Resume outpatient medications, physical exam, collateral contact with community caregivers and social network, safety plan, aftercare plan and observe. 927 T:sn DD:20151221 TD:0745 DT:20151221 TT:09 JOB:[id number] TORIE MARIA R Robin MD ESigned by: Date:12/22/15 Time:642 NOT FOR REDISCLOSURE WITHOUT PATIENT'S INFORMED CONSENT Patient Care team information Care Team Personnel Name: Dean Rivas RN Position: [facility] RN Member Role: Primary Care Nurse Name: Jolanta Ace RN Position: [facility] RN Supv Member Role: Primary Care Nurse Name: Fatoumata Stokes DO Position: [facility] Physician - Primary Care Member Role: PCP Address: Address: [address] [place] [address] Adult & [place] [address]- [place] Name: Awilda Grider RN Position: [facility] RN Member Role: Primary Care Nurse Name: Meagan Darden RN Position: [facility] RN Member Role: Primary Care Nurse Name: Chintan Leach DO Position: [facility] Renal MD Member Role: Lifetime Consulting Physician Address: Address: [address] [place] [address] [address] [facility] [place] [address]- Name: Chandler Ye RN Position: [facility] RN Member Role: Primary Care Nurse Name: Apurva Ji RN Position: [facility] ED RN W/OE and Tasks Member Role: Primary Care Nurse Name: Cordelia Matias RN Position: [facility] AMB Nurse Member Role: Primary Care Nurse Name: Riya Moore RN Position: [facility] RN Member Role: Primary Care Nurse Name: Radha Gutierrez Position: [facility] Outreach Member Role: Primary Care Nurse Name: Keenan Vincent RN Position: [facility] SN RN Member Role: Primary Care Nurse Name: Sasha Patricio RN Position: [facility] RN Member Role: Primary Care Nurse Name: Virgie Angel RN Position: [facility] RN Member Role: Primary Care Nurse Name: Malu Palomo Position: [facility] RN Member Role: Primary Care Nurse Name: Azeb Gusman RN Position: [facility] RN Member Role: Primary Care Nurse Name: Kim Cornell RN Position: [facility] RN Member Role: Primary Care Nurse Name: Meredith Martinez RN Position: [facility] RN Member Role: Primary Care Nurse Name: Anika Gotti RN Position: [facility] RN Member Role: Primary Care Nurse Name: Kvng Tompkins RN Position: [facility] ED RN W/OE and Tasks Member Role: Primary Care Nurse Name: Rafiq Muñoz RN Position: [facility] RN Member Role: Primary Care Nurse Name: Justina Walker RN Position: [facility] RN Member Role: Primary Care Nurse Name: Ivone Hidalgo RN Position: S RN Member Role: Primary Care Nurse Name: Mazin Penn MD Position: [facility] Physician - Behavioral Health Member Role: Lifetime Consulting Physician Address: Address: [address] [place] [address]- [place] Care Team Related Persons Name: DORITA MCCOLLUM Address: [address] [place] [address] Name: STEW PECK Address: [address] [place] [address] Name: LISA PALMA Address: [address] [place] [address]
--- OUTSIDE RECORDS SUMMARY | 2024-06-11 16:51 | XMS_ITS | Continuity of Care Document ---
Author [facility] Address [address], [address] [place] [address]- Care Team Providers Care Human Geography Faculty Member Name Role Phone Fatoumata Stokes DO Primary Care Physician Encounter [facility] Date(s): 12/19/23 - 12/26/23 [facility] Cynthia Ovall[facility] [address], [address]th [place] [address]- Attending Physician: Jignesh TORRES, Kay Rock Referring Physician: Fatoumata Stokes DO Allergies, Adverse [...] Refills, Soft Stop, 12/21/23 15:20:00 EDT, Tablet, [facility], Partial fill upon patient request if [...] 0 Refills, Maintenance, 07/05/23 0:27:00 EDT, Nasal [place], Partial fill upon patient request if the [...] 0 Refills, Maintenance, 12/23/23 17:55:00 EDT, ECCapsule, [facility], Partial fill upon patient request if [...] By Mouth, Daily, call the office at [phone] if you do not get a menstrual cycle., # 10 tablet, Refills 0, Tot. Refills 0, Maintenance, 12/21/23 15:20:00 EDT, Route to Pharmacy Electronically, [facility], Partial fill u... Start Date: 12/21/23 [...] 07/19/23 13:50:00 EDT, Route to Pharmacy Electronically, [facility], Partial fill upon patient request if [...] oldest [Reference Range]: 1 Height 163 cm (12/19/23 12:00 PM) Weight 99.54 kg (12/19/23 12:00 PM) Body Mass Index [18.5-24.99 kg/m2] 37.46 kg/m2 *>HHI* (12/19/23 12:00 PM) Blood Pressure [90-138/55-84 mm Hg] 129/ 113mm Hg (12/19/23 12:00 PM) Blood pressure sites Arm, left (12/19/23 12:00 PM) Weight Obtained Via Standing scale (12/19/23 12:00 PM) Social History Social History Type Response Smoking Status 5-9 cigarettes (betw een 1/4 to 1/2 pack)/day in last 30 days; Interested in cessation: No; Patient wants NRT during admission Yes; Other: will accept nicotine gum; entered on: 07/14/23 Sex History and physical note * Event Display: History and Physical Hospital Authored Date: [id number] [place], [place] PSYCHIATRIC HISTORY ASSESS EXAM NAME: LORETTA CELESTIN : [birth year] MR#: [id number] PCP: ADMITTED: 12/20/15 DATE OF SERVICE: 12/20/15 HPI - Hosp Psych H P Chief Complaint Pt was sent from [facility] here for hallunication History of Present Illness 24 yo AA Female with known schizophrenia was seen at [facility] for hallucination. Apparently pt has been lived in assisted [facility] QDAY Haloperidol* (Haldol*) 5 MG PO BID [place] Carbonate SR* (Lithobid*) 300 MG PO QDAY liTHIum Carbonate SR* ([place] Carbonate SR*) 450 MG PO 4PM Discontinued Reported Medications Citalopram* (CeleXA*) 40 MG PO QDAY Benztropine* 0.5 MG PO BID buPROPion SR* 150 MG PO [id number] Trazodone* (Desyrel*) 100 MG PO HS RisperiDONE* [...] 324 MG QDAY 12/20 09 CKD PO [place] Carbonate 300 MG QDAY 12/20 899 AC PO Polyethylene Glycol 17 GM QDAY 12/20 899 CKD PO Benztropine Mesylate 1 MG 0900,12/19 1700 AC PO Docusate Sodium 100 MG 0900,12/19 1700 AC PO Haloperidol 5 MG 0900,12/19 1700 AC PO [place] Carbonate 450 MG PM 12/19 1700 AC [...] fullly ambulartory Care Level Complexity of Care [id number] Comprehensive history, comprehensive examination, medical decision making of low complexity, at least 20 minutes at the bedside, patient's floor/ unit. ESigned by: YAS GARZA MD Date:12/21/15 Time:1633 / NOT FOR REDISCLOSURE WITHOUT PATIENT'S INFORMED CONSENT Admission evaluation note * Event Display: Admit Notes Authored Date: [id number] [place], [place] PSYCHIATRIC ADMISSION NOTE NAME: LORETTA CELESTIN : 89 HOSPITAL #: [id number] MR #: [id number] CHART LOC: PCP: DICTATING: MARIA R Robin MD DATE OF ADMISSION: 12/20/15 DATE OF SERVICE: 12/21/15 CHIEF COMPLAINT: This 23-year-old woman was admitted to [facility] on 12/20/15 on a [...] is living in a assisted. Came to [place] with her grandmother in [...] year NAME: LORETTA CELESTIN : 89 HOSP#: [id number] MR#: [id number] CHART LOC: PCP: DICTATING: MARIA R Robin MD PSYCHIATRIC ADMISSION NOTE CONTINUED: unknown. TREATMENT PLAN: Resume outpatient medications, physical exam, collateral contact with community caregivers and social network, safety plan, aftercare plan and observe. 927 T:sn DD:20151221 TD:0745 DT:20151221 TT:0924 [id number] MICHELLE/SHANNON MARIA R Robin MD ESigned by: [...] Primary Care Member Role: PCP Address: Address: [address] [place] [address] Adult [place] [address]- Name: Awilda Grider RN Position: [facility] RN Member Role: Primary Care Nurse Name: Meagan Darden RN Position: [facility] RN Member Role: Primary Care Nurse Name: Chintan Leach DO Position: [facility] Renal MD Member Role: Lifetime Consulting Physician Address: Address: [address] [place] [address] [address] [facility] [place] [address]- Name: Chandler Ye RN Position: [facility] RN Member Role: Primary Care Nurse Name: Apurva Ji RN Position: [facility] ED RN W/OE and Tasks Member Role: Primary Care Nurse Name: Cordelia Matias RN Position: [facility] AMB Nurse Member Role: Primary Care Nurse Name: Riya Moore RN Position: [facility] RN Member Role: Primary Care Nurse Name: Brenda Radha Position: [facility] Outreach Member Role: Primary Care Nurse Name: Keenan Vincent RN Position: [facility] SN RN Member Role: Primary Care Nurse Name: Sasha Patricio RN Position: [facility] RN Member Role: Primary Care Nurse Name: Virgie Angel Position: [facility] RN Member Role: Primary Care Nurse Name: Malu Palomo Position: [facility] RN Member Role: Primary Care Nurse Name: Azeb Gusman RN Position: [facility] RN Member Role: Primary Care Nurse Name: Asher Diaz RN Position: [facility] RN Member [...] Tasks Member Role: Primary Care Nurse Name: Rafqi Muñoz RN Position: [facility] RN Member Role: Primary Care Nurse Name: Justina Walker RN Position: [facility] RN Member Role: Primary Care Nurse Name: Ivone Hidalgo RN Position: [facility] RN Member Role: Primary Care Nurse Name: Mazin Penn MD Position: [facility] Physician - Behavioral Health Member Role: Lifetime Consulting Physician Address: Address: [address] [place] [address]- [place] Care Team Related Persons Name: DORITA MCCOLLUM Address: [address] [place] [address] Name: ASIADEEDEESTEW Address: [address] [place] [address] Name: LISA PALMA Address: home [address] [place] [address]
--- OUTSIDE RECORDS SUMMARY | 2024-06-11 16:51 | XMS_ITS | Continuity of Care Document ---
Author Organization [facility] Address [address] [place] [address]- Care Team Providers Care Parts Delivery Driver Name Role Phone Fatoumata Stokes DO Primary Care Physician ( [phone] [place] [facility] [place] 05/31/24 - 06/07/24 [facility] [address] [place], [place] [address] Attending Physician: Fatoumata Stokes DO [...] tablet, 0 Refills, Maintenance, 05/30/24 15:01:00 EDT, [facility], 163, cm, 05/26/24 12:29:00 EDT, Height, [...] Refills, Soft Stop, 04/09/24 12:02:00 EDT, Tablet, [facility], Partial fill upon patient request if [...] 0 Refills, Maintenance, 03/09/24 14:42:00 EDT, Nasal [place], [facility], Partial fill upon patient request if the prescription is for a schedule II opi... Start Date: 03/09/24 Status: Ordered lidocaine 5% topical film 1 patch, Topically, Daily, INSTR:REMOVE PATCHES AFTER 12 HOURS, # 30 each, 0 Refills, Maintenance, 04/26/24 17:29:00 EDT, [facility], 30, APPLY 1 PATCH TOPICALLY DAILY,INSTR:REMOVE [...] Replace Required Details, Route to Pharmacy Electronically, [facility], 163, cm, 05/22/24 10:33:00 EDT, Height, [...] 0 Refills, Maintenance, 04/25/24 10:05:00 EDT, ECCapsule, [facility], Partial fill upon patient request if [...] Maintenance,07/19/23 13:53:00 EDT, Route to Pharmacy Electronically, [facility], Partial fill upon patient request if the prescription is for a schedule... Start Date: 07/19/23 Stop Date: 08/18/23 Status: Ordered Provera 10 mg oral tablet 10 mg, 1, tablet, By Mouth, Daily, call the office at [phone] if you do not get a menstrual cycle., # 10 tablet, Refills 0, Tot. Refills 0, Maintenance, 12/21/23 15:20:00 EDT, Route to Pharmacy Electronically, [facility], Partial fill u... Start Date: 12/21/23 Stop Date: 12/31/23 Status: Ordered Stool Softener with Laxative 50 mg-8.6 mg oral tablet 1 tablet, By Mouth, Daily at bedtime, # 30 tablet, 5 Refills, Maintenance, 05/31/24 14:20:00 EDT, [facility], Partial fill upon patient [...] tablet, 11 Refills, Maintenance, 02/17/24 9:32:00 EDT, [facility], 163, cm, 02/17/24 9:01:00 EDT, Height, 96.5, kg, 02/11/24 1:23:00 EDT, Dry Weight Start Date: 02/17/24 Status: Ordered Vitamin C 250 mg oral tablet 1 tablet, By Mouth, Daily in AM, AT 9AM., # 30 tablet, 0 Refills, Maintenance, 02/02/24 15:05:00 EDT, [facility], 163, cm, 01/24/24 9:01:00 EDT, Height, 100.2, kg, 10/17/23 16:02:00 EST, Dry Weight Start Date: 02/02/24 Status: Ordered ZyPREXA 10 mg oral tablet 10 mg, 1, tablet, By Mouth, Daily at bedtime, # 30 tablet, Refills 0, Tot. Refills 0, Maintenance, 07/19/23 13:50:00 EDT, Route to Pharmacy Electronically, [facility], Partial fill upon patient request if [...] oldest [Reference Range]: 1 Height 163 cm (05/31/24 2:01 PM) Weight 97 kg (05/31/24 2:01 PM) Oxygen Saturation [94-100 %] 100 % (05/31/24 2:01 PM) Pulse Rate [55-90 bpm] 64 bpm (05/31/24 2:01 PM) Body Mass Index [18.5-24.99 kg/m2] 36.51 kg/m2 *>HHI* (05/31/24 2:01 PM) Blood Pressure [90-138/55-84 mm Hg] 126/ 92mm Hg (05/31/24 2:01 PM) Mode of Delivery (Oxygen) Room air (05/31/24 2:01 PM) Blood pressure sites Arm, left (05/31/24 2:01 PM) Dry Weight 97 kg (05/31/24 2:01 PM) Weight Obtained Via Standing scale (05/31/24 2:01 PM) Dry Weight Obtained Via Standing scale (05/31/24 2:01 PM) Social History Social History Type Response Smoking Status 5-9 cigarettes (betw een 1/4 to 1/2 pack)/day in last 30 days; Interested in cessation: No; Patient wants NRT during admission Yes; Other: will accept nicotine gum; entered on: 07/14/23 Sex Female History and physical note * Event Display: History and Physical Hospital Authored Date: [id number] [place], [place] PSYCHIATRIC HISTORY ASSESS EXAM NAME: LORETTA CELESTIN : [birth year] MR#: [id number] PCP: ADMITTED: 12/20/15 DATE OF SERVICE: 12/20/15 HPI - Hosp Psych H P Chief Complaint Pt was sent from [facility] here for hallunication History of Present Illness 24 yo AA Female with known schizophrenia was seen at [facility] for hallucination. Apparently pt has been lived in halfway and sent to [facility] QDAY Haloperidol* (Haldol*) 5 MG PO BID [place] Carbonate SR* (Lithobid*) 300 MG PO QDAY liTHIum Carbonate SR* ([place] Carbonate SR*) 450 MG PO 4PM Discontinued Reported Medications Citalopram* (CeleXA*) 40 MG PO QDAY Benztropine* 0.5 MG PO BID buPROPion SR* 150 MG PO [id number] Trazodone* (Desyrel*) 100 MG PO HS RisperiDONE* [...] 324 MG QDAY 12/20 09 CKD PO [place] Carbonate 300 MG QDAY 12/20 09 AC PO Polyethylene Glycol 17 GM QDAY 12/20 09 CKD PO Benztropine Mesylate 1 MG 0900,1700 12/19 1700 AC PO Docusate Sodium 100 MG 0900,1700 12/19 1700 AC PO Haloperidol 5 MG 0900,12/19 1700 AC PO [place] Carbonate 450 MG PM 12/19 1700 AC [...] fullly ambulartory Care Level Complexity of Care L22866 Comprehensive history, comprehensive examination, medical decision making of low complexity, at least 20 minutes at the bedside, patient's floor/ unit. ESigned by: YAS GARZA MD Date:12/21/15 Time:1633 / NOT FOR REDISCLOSURE WITHOUT PATIENT'S INFORMED CONSENT Admission evaluation note * Event Display: Admit Notes Authored Date: [id number] [place], [place] PSYCHIATRIC ADMISSION NOTE NAME: LORETTA CELESTIN : [birth year] HOSPITAL #: [id number] MR #: [id number] CHART LOC: PCP: DICTATING: MARIA R Robin MD DATE OF ADMISSION: 12/20/15 DATE OF SERVICE: 12/21/15 CHIEF COMPLAINT: This 23-year-old woman was admitted to [facility] on 12/20/15 on a Conditional Voluntary [...] is living in a halfway. Came to [place] with her grandmother in [...] year NAME: LORETTA CELESTIN : [birth year] HOSP#: [id number] MR#: [id number] CHART LOC: PCP: DICTATING: MARIA R Robin MD PSYCHIATRIC ADMISSION NOTE CONTINUED: unknown. TREATMENT PLAN: Resume outpatient medications, physical exam, collateral contact with community caregivers and social network, safety plan, aftercare plan and observe. 927 T:sn DD:[id number] TD:0745 DT:[id number] TT:0924 JOB:[id number] MICHELLE/SHANNON MARIA R Robin MD ESigned by: Date:12/22/15 Time:642 NOT FOR REDISCLOSURE WITHOUT PATIENT'S INFORMED CONSENT Note * Mindy Montes: PERFORM Event Display: Patient Education/Instruction Authored Date: [id number] Ambulatory Adult Visit Summary [facility] [address] [place] [address] Name: LORETTA CELESTIN : 1990?? Visit: 05/31/2024 13:40?? Ambulatory Visit Instructions ?? Your Care Team Primary Care Provider Fatoumata Stokes DO? This Visit Provider Fatoumata Stokes DO Vitals Signs Pulse Rate: 64 bpm Height: 163 cm Systolic Blood Pressure: 126 mm Hg Weight: 97 kg Diastolic Blood Pressure:??92 mm Hg??High Body Mass Index:??36.51 kg/m2??Critical Oxygen Saturation: 100 % Body surface area: 2.1 What to do next Scheduled Follow-Up Appointments Tuesday 11:30 AM EDT ?? Where: [facility] [id number] [place] [address]- Status: Pending Tuesday 8:30 AM EST ?? With: Shaikh MELISSA, Nalini Where: [facility] [address] [place] [address]- Status: Pending Tuesday 9:45 AM EST ?? With: Ana José MD Where: [facility] [address] [place] [address]- Status: Pending Future Orders Complete Urinalysis - Routine, Once, 12/19/23 12:25:00 EDT, Order for Today, [facility], Urine?? [facility] [place] [facility] Test - Routine, Once, 01/24/24 [...] Unchanged Acetaminophen (acetaminophen 500 mg oral tablet) 1 tab(s) Oral Every 8 hours as needed for NEEDED FOR PAIN Unchanged Ascorbic Acid (Vitamin C 250 mg oral tablet) 1 tab(s) Oral Daily in the morning AT 9AM. ?? Unchanged Ascorbic Acid (Vitamin C 250 mg oral tablet) See instructions 1 tablet By Mouth every other day with iron Daily at 9am ?? Unchanged Benztropine (benztropine 1 mg oral tablet) 1 tab(s) Oral Twice a day Unchanged Docusate-Senna (Stool Softener with Laxative 50 mg-8.6 mg oral tablet) 1 tab(s) Oral Daily at Bedtime Duration: 30 Days Pickup at [facility] Unchanged Ferrous Sulfate (ferrous sulfate 325 mg oral enteric coated tablet) See instructions Take one tablet By Mouth every other day. Take with vitamin C to help absorption at 9am ?? Pickup at [facility] Unchanged Ferrous Sulfate (ferrous sulfate 325 mg oral enteric coated tablet) 325 Milligram Oral Every other day Unchanged Fluconazole (Diflucan 150 mg oral tablet) 1 tab(s) Oral Every 72 hours to treat yeast. ?? Unchanged Fluticasone Nasal (fluticasone 50 mcg/ inh nasal spray) 1 spray(s) Nares, Both Twice a day as needed for Other nasal allergy symptoms ?? Unchanged Lidocaine Topical (lidocaine 5% topical film) 1 patch(es) Topically Daily INSTR:REMOVE PATCHES AFTER 12 HOURS ?? Unchanged [place]ont (lithium 450 mg oral tablet, extended release) 1 tab(s) Oral Twice a day Unchanged Loratadine (loratadine 10 mg oral tablet) See instructions TAKE 1 TABLET BY MOUTH AT 9AM ?? Unchanged MedroxyPROGESTERone (Provera 10 mg oral tablet) 1 tab(s) Oral Daily Duration: 10 Days call the office at [phone] if you do not get a menstrual [...] at Bedtime Duration: 30 Days Pharmacy Information [facility]: [address] [place] [address] [phone] Medications and Immunizations Administered Medications Given During [...] are strongly encouraged to quit. Please call [facility] at [phone] or [phone] ([phone]) or log in to [email or web address] for referrals to smoking cessation programs. ?? The National Suicide Prevention Hotline is available 18/04 if you or someone you know needs to find a reason to keep living. By calling 4-840-486-Cerecor (2639) you'll be connected to a skilled, trained counselor at a crisis center in your area. [facility] [employer] Portal You can view and manage your care through the patient portal or by using a health care lonny of your choosing. [employer] is a website that allows you to securely view your medical information including your hospital discharge summary, office visit summaries, medications and follow-up visits. You can also request appointments, renew medications, and request access to your medical information using a health care lonny of your choosing, or just ask a question. You can enroll at [email or web address] or register during your next office visit. [facility], in keeping with [facility] guidance, no longer requires face masks for [...] primary care provider, you may find a [facility] provider by calling [facility] at [phone]. Patient Care team information Care Team Personnel Name: Dean Rivas RN Position: [facility] RN Member Role: Primary Care Nurse Name: Jolanta Ace RN Position: [facility] RN Supv Member Role: Primary Care Nurse Name: Fatoumata Stokes DO Position: [facility] Physician - Primary Care Member Role: PCP Address: Address: [address] [place] [address] Adult [place] [address]- Name: Awilda Grider RN Position: [facility] RN Member Role: Primary Care Nurse Name: Meagan Darden RN Position: [facility] RN Member Role: Primary Care Nurse Name: Chintan Leach DO Position: [facility] Renal MD Member Role: Lifetime Consulting Physician Address: Address: [address] [place], [place] [address] [place] [address]- Name: Chandler Ye RN Position: [facility] RN Member Role: Primary Care Nurse Name: Apurva Ji RN Position: [facility] ED RN W/OE and Tasks Member Role: Primary Care Nurse Name: Cordelia Matias RN Position: [facility] AMB Nurse Member Role: Primary Care Nurse Name: Riya Moore RN Position: [facility] RN Member Role: Primary Care Nurse Name: Radha Gutierrez Position: [facility] Outreach Member Role: Primary Care Nurse Name: Keenan Vincent RN Position: [facility] SN RN Member Role: Primary Care Nurse Name: Sasha Patricio RN Position: [facility] RN Member Role: Primary Care Nurse Name: Virgie Angel RN Position: [facility] RN Member Role: Primary Care Nurse Name: Malu Palomo Position: [facility] RN Member Role: Primary Care Nurse Name: Azeb Gusman RN Position: [facility] RN Member Role: Primary Care Nurse Name: Asher Diaz RN Position: [facility] RN Member Role: Primary Care Nurse Name: Kim Cornell RN Position: [facility] RN Member Role: Primary Care Nurse Name: Meredith Martinez RN Position: [facility] RN Member Role: Primary Care Nurse Name: Anika Gotti RN Position: [facility] RN Member Role: Primary Care Nurse Name: Kvng Tompkins RN Position: [facility] ED RN W/OE and Tasks Member Role: Primary Care Nurse Name: Rafiq Muñoz RN Position: [facility] RN Member Role: Primary Care Nurse Name: Justina Walker RN Position: [facility] RN Member Role: Primary Care Nurse Name: Ivone Hidalgo RN Position: [facility] RN Member Role: Primary Care Nurse Name: Mazin Pnen MD Position: [facility] Physician - Behavioral Health Member Role: Lifetime Consulting Physician Address: Address: [address] [place] [address]- [place] Care Team Related Persons Name: DORITA MCCOLLUM Address: [address] [place] [address] Name: STEW PECK Address: home [address] [place] [address] Name: LISA PALMA Address: [address] [place] [address]
--- OUTSIDE RECORDS SUMMARY | 2024-06-11 16:51 | XMS_ITS | Continuity of Care Document ---
Author Organization [facility] Address [address] [place] [address]- Care Team Providers Care Developer Analyst Name Role Phone Fatoumata Stokes DO Primary Care Physician ( [phone] [place] [facility] [place]10[place] 02/17/24 [facility] Cynthia Ovalless [facility] [address] [place] [address]- Attending Physician: Lexx TORRES, Ashley Rock Referring [...] 0 Refills, Maintenance, 02/17/24 9:30:00 EDT, Tablet, [facility], Partial fill upon patient request if [...] Refills, Soft Stop, 12/21/23 15:20:00 EDT, Tablet, [facility], Partial fill upon patient request if [...] 0 Refills, Maintenance, 07/05/23 0:27:00 EDT, Nasal [place], Partial fill upon patient request if the [...] 02/13/24 16:31:00 EDT, Route to Pharmacy Electronically, [facility], 163, cm, 02/11/24 1:23:00 EDT, Height, [...] 0 Refills, Maintenance, 12/23/23 17:55:00 EDT, ECCapsule, [facility], Partial fill upon patient [...] By Mouth, Daily, call the office at [phone] if you do not get a menstrual cycle., # 10 tablet, Refills 0, Tot. Refills 0, Maintenance, 12/21/23 15:20:00 EDT, Route to Pharmacy Electronically, [facility], Partial fill u... Start Date: 12/21/23 Stop Date: 12/31/23 Status: Ordered traZODone 50 mg oral tablet 50 mg, 1, tablet, By Mouth, Daily at bedtime, # 30 tablet, Refills 0, Tot. Refills 0, Maintenance, 07/19/23 13:53:00 EDT, Route to Pharmacy Electronically, [facility], Partial fill upon patient request if the prescription is for a schedule I... Start Date: 07/19/23 Stop Date: 08/18/23 Status: Ordered Vitamin C 250 mg oral tablet See Instructions, 1 tablet By Mouth every other day with iron Daily at 9am, # 45 tablet, 11 Refills, Maintenance, 02/17/24 9:32:00 EDT, [facility], 163, cm, 02/17/24 9:01:00 EDT, Height, 96.5, kg, 02/11/24 1:23:00 EDT, Dry Weight Start Date: 02/17/24 Status: Ordered Vitamin C 250 mg oral tablet 1 tablet, By Mouth, Daily in AM, AT 9AM., # 30 tablet, 0 Refills, Maintenance, 02/02/24 15:05:00 EDT, [facility], 163, cm, 01/24/24 9:01:00 EDT, Height, 100.2, kg, 10/17/23 16:02:00 EST, Dry Weight Start Date: 02/02/24 Status: Ordered ZyPREXA 10 mg oral tablet 10 mg, 1, tablet, By Mouth, Daily at bedtime, # 30 tablet, Refills 0, Tot. Refills 0, Maintenance, 07/19/23 13:50:00 EDT, Route to Pharmacy Electronically, [facility], Partial fill upon patient request if [...] recent to oldest [Reference Range]: 1 Weight 100.5 kg (02/10/24 11:59 AM) Blood Pressure [90-138/55-84 mm Hg] 145/ 87mm Hg *H* (02/10/24 11:59 AM) Blood pressure sites Arm, right (02/10/24 11:59 AM) Weight Obtained Via Standing scale (02/10/24 11:59 AM) Social History Social History Type Response Smoking Status 5-9 cigarettes (betw een 1/4 to 1/2 pack)/day in last 30 days; Interested in cessation: No; Patient wants NRT during admission Yes; Other: will accept nicotine gum; entered on: 07/14/23 Sex History and physical note * Event Display: History and Physical Hospital Authored Date: [id number] [place], [place] PSYCHIATRIC HISTORY ASSESS EXAM NAME: LORETTA CELESTIN : [birth year] MR#: [id number] PCP: ADMITTED: 12/20/15 DATE OF SERVICE: 12/20/15 HPI - Hosp Psych H P Chief Complaint Pt was sent from [facility] here for hallunication History of Present Illness 24 yo AA Female with known schizophrenia was [place] [facility] [place]. Apparently pt has been lived in senior care and [place] [facility] [place] [...] QDAY Haloperidol* (Haldol*) 5 MG PO BID [place] Carbonate SR* (Lithobid*) 300 MG PO QDAY liTHIum Carbonate SR* ([place] Carbonate SR*) 450 MG PO 4PM Discontinued Reported Medications Citalopram* (CeleXA*) 40 MG PO QDAY Benztropine* 0.5 MG PO BID buPROPion SR* 150 MG PO [id number] Trazodone* (Desyrel*) 100 MG PO HS RisperiDONE* [...] 324 MG QDAY 12/20 0900 CKD PO [place] Carbonate 300 MG QDAY 12/20 0900 AC PO Polyethylene Glycol 17 GM QDAY 12/20 0900 CKD PO Benztropine Mesylate 1 MG 0900,1700 12/19 1700 AC PO Docusate Sodium 100 MG 0900,17012/19 1700 AC PO Haloperidol 5 MG 0900,17012/19 1700 AC PO [place] Carbonate 450 MG PM 12/19 1700 AC [...] fullly ambulartory Care Level Complexity of Care [id number] Comprehensive history, comprehensive examination, medical decision making of low complexity, at least 20 minutes at the bedside, patient's floor/ unit. ESigned by: YAS GARZA MD Date:12/21/15 Time:1633 / NOT FOR REDISCLOSURE WITHOUT PATIENT'S INFORMED CONSENT Admission evaluation note * Event Display: Admit Notes Authored Date: [id number] [place], [place] PSYCHIATRIC ADMISSION NOTE NAME: LORETTA CELESTIN : 89 HOSPITAL #: [id number] MR #: [id number] CHART LOC: PCP: DICTATING: MARIA R Robin MD DATE OF ADMISSION: 12/20/15 DATE OF SERVICE: 12/21/15 CHIEF COMPLAINT: This 23-year-old woman was admitted to [facility] on 12/20/15 on a Conditional Voluntary [...] living in a senior care. Came to [place] with her grandmother in [...] year NAME: LORETTA CELESTIN : [birth year] HOSP#: [id number] MR#: [id number] CHART LOC: PCP: DICTATING: MARIA R Robin MD PSYCHIATRIC ADMISSION NOTE CONTINUED: unknown. TREATMENT PLAN: Resume outpatient medications, physical exam, collateral contact with community caregivers and social network, safety plan, aftercare plan and observe. 927 T: DD:[id number] TD:0745 DT:[id number] TT:0924 [id number] MICHELLE/SHANNON MARIA R Robin MD ESigned by: [...] Primary Care Member Role: PCP Address: Address: [address] [place] [address] Adult [place] [address]- [place] Name: Awilda Grider RN Position: [facility] RN Member Role: Primary Care Nurse Name: Meagan Darden RN Position: [facility] RN Member Role: Primary Care Nurse Name: Chintan Leach DO Position: [facility] Renal MD Member Role: Lifetime Consulting Physician Address: Address: [address] [place], [place] [address] [place] [place] [address]- Name: Chandler Ye RN [facility] [...] Role: Lifetime Consulting Physician Address: Address: [address] [place] [address]- [place] Care Team Related Persons Name: MICK MCCOLLUMTRA Address: [address] [place] [address] Name: STEW PECK Address: home [address] [place] [address] Name: LISA PALMA Address: home [address] [place] [address]
--- OUTSIDE RECORDS SUMMARY | 2024-06-11 16:52 | XMS_ITS | Continuity of Care Document ---
Author Organization [facility] ter Address [address] [place] [address]- Care Team Providers Care Supervisor [employer] Name Role Phone Fatoumata Stokes DO Primary Care Physician Encounter [facility] Date(s): 10/20/23 - 11/19/[address] [id number] Allergies, Adverse [...] 0 Refills, Maintenance, 07/05/23 0:27:00 EDT, Nasal [place], Partial fill upon patient request if the [...] Maintenance,07/19/23 13:53:00 EDT, Route to Pharmacy Electronically, [facility], Partial fill upon patient request if the prescription is for a schedule... Start Date: 07/19/23 Stop Date: 08/18/23 Status: Ordered traZODone 50 mg oral tablet 50 mg, 1, tablet, By Mouth, Daily at bedtime, # 30 tablet, Refills 0, Tot. Refills 0, Maintenance, 07/19/23 13:53:00 EDT, Route to Pharmacy Electronically, [facility], Partial fill upon patient request if [...] 07/19/23 13:50:00 EDT, Route to Pharmacy Electronically, [facility], Partial fill upon patient request if [...] Display: History and Physical Hospital Authored Date: [id number] [place], [place] PSYCHIATRIC HISTORY ASSESS EXAM NAME: LORETTA CELESTIN : 89 MR#: [id number] PCP: ADMITTED: 12/20/15 DATE OF SERVICE: 12/20/15 HPI - Hosp Psych H P Chief Complaint Pt was sent from [facility] here for hallunication History of Present Illness 24 yo AA Female with known schizophrenia was seen at [facility] for halluc[place]. Apparently pt has been lived in alf and sent to [facility] [...] QDAY Haloperidol* (Haldol*) 5 MG PO BID [place] Carbonate SR* (Lithobid*) 300 MG PO QDAY liTHIum Carbonate SR* ([place] Carbonate SR*) 450 MG PO 4PM Discontinued Reported Medications Citalopram* (CeleXA*) 40 MG PO QDAY Benztropine* 0.5 MG PO BID buPROPion SR* 150 MG PO [id number] Trazodone* (Desyrel*) 100 MG PO HS RisperiDONE* [...] 324 MG QDAY 12/20 09 CKD PO [place] Carbonate 300 MG QDAY 12/20 09 AC PO Polyethylene Glycol 17 GM QDAY 12/20 09 CKD PO Benztropine Mesylate 1 MG 0900,12/19 1700 AC PO Docusate Sodium 100 MG 0900,12/19 1700 AC PO Haloperidol 5 MG 0900,12/19 1700 AC PO [place] Carbonate 450 MG PM 12/19 1700 AC [...] fullly ambulartory Care Level Complexity of Care [id number] Comprehensive history, comprehensive examination, medical decision making of low complexity, at least 20 minutes at the bedside, patient's floor/ unit. ESigned by: YAS GARZA MD Date:12/21/15 Time:1633 / NOT FOR REDISCLOSURE WITHOUT PATIENT'S INFORMED CONSENT Admission evaluation note * Event Display: Admit Notes Authored Date: [place], [place] PSYCHIATRIC ADMISSION NOTE NAME: LORETTA CELESTIN : 89 HOSPITAL #: [id number] MR #: [id number] CHART LOC: PCP: DICTATING: MARIA R Robin MD DATE OF ADMISSION: 12/20/15 DATE OF SERVICE: 12/21/15 CHIEF COMPLAINT: This 23-year-old woman was admitted to [facility] on 12/20/15 on a Conditional Voluntary [...] is living in a alf. Came to [place] with her grandmother in 2013, was very [...] year NAME: LORETTA CELESTIN : 89 HOSP#: [id number] MR#: [id number] CHART LOC: PCP: DICTATING: MARIA R Robin MD PSYCHIATRIC ADMISSION NOTE CONTINUED: unknown. TREATMENT PLAN: Resume outpatient medications, physical exam, collateral contact with community caregivers and social network, safety plan, aftercare plan and observe. 927 T: DD:[id number] TD:0745 DT:[id number] TT:0924 JOB:[id number] MICHELLE/SHANNON MARIA R Robin MD ESigned by: Date:12/22/15 Time:642 NOT FOR REDISCLOSURE WITHOUT PATIENT'S INFORMED CONSENT Patient Care team information Care Team Personnel Name: Dean Rivas RN Position: [facility] RN Member Role: Primary Care Nurse Name: Jolanta Ace RN Position: [facility] RN Supv Member Role: Primary Care Nurse Name: Fatoumata Stokes DO Position: [facility] Physician - Primary Care Member Role: PCP Address: Address: [address] [place] [address] Adult [place] [address]- Name: Awilda Grider RN Position: S RN Member Role: Primary Care Nurse Name: Meagan Darden RN Position: [facility] RN Member Role: Primary Care Nurse Name: Chintan Leach DO Position: [facility] Renal MD Member Role: Lifetime Consulting Physician Address: Address: [address] [place], [place] [address] [place] [address]- Name: Chandler Ye RN Position: [facility] RN Member Role: Primary Care Nurse Name: Apurva Ji RN Position: [facility] ED RN W/OE and Tasks Member Role: Primary Care Nurse Name: Cordelia Matias RN Position: [facility] AMB Nurse Member Role: Primary Care Nurse Name: Riya Moore RN Position: [facility] RN Member Role: Primary Care Nurse Name: Radha Gutierrez Position: [facility] Outreach Member Role: Primary Care Nurse Name: Keenan Vincent RN Position: [facility] SN RN Member Role: Primary Care Nurse Name: Sasha Patricio RN Position: [facility] RN Member Role: Primary Care Nurse Name: Virgie Angel Position: [facility] RN Member Role: Primary Care Nurse Name: Emma Kaminski RN Position: [facility] RN Member Role: Primary Care Nurse Name: Malu Palomo Position: [facility] RN Member Role: Primary Care Nurse Name: Azeb Gusman RN Position: [facility] RN Member Role: Primary Care Nurse Name: Asher Diaz RN Position: [facility] RN Member Role: Primary Care Nurse Name: Kim Cornell RN Position: [facility] RN Member Role: Primary Care Nurse Name: Meredith Martinez RN Position: [facility] RN Member Role: Primary Care Nurse Name: Anika Gotti RN Position: [facility] RN Member Role: Primary Care Nurse Name: Kvng Tompkins RN Position: [facility] ED RN W/OE and Tasks Member Role: Primary Care Nurse Name: Rafiq Muñoz RN Position: [facility] RN Member Role: Primary Care Nurse Name: Justina Walker RN Position: [facility] RN Member Role: Primary Care Nurse Name: Ivone Hidalgo RN Position: [facility] RN Member Role: Primary Care Nurse Name: Mazin Penn MD Position: [facility] Physician - Behavioral Health Member Role: Lifetime Consulting Physician Address: Address: [address] [place] [id number]- [place] Care Team Related Persons Name: DORITA MCCOLLUM Address: [address] [place] [address] Name: KIA PECKCY Address: home [address] [facility] [address] Name: LISA PALMA Address: home [address] [place] [address]
--- OUTSIDE RECORDS SUMMARY | 2024-06-11 16:52 | XMS_ITS | Continuity of Care Document ---
Author Organization [facility] ter Address [address] [place] [address]- Care Team Providers Care Lpn Rn Hospice Name Role Phone Fatoumata Stokes DO Primary Care Physician Encounter [facility] Date(s): 03/23/24 - 03/23/[address] [address]- Encounter Diagnosis Yeast infection(Final) - 03/23/24 Discharge Disposition: A-D/C Home Attending Physician: Oliver [...] 0 Refills, Maintenance, 02/17/24 9:30:00 EDT, Tablet, [facility], Partial fill upon patient request if [...] Refills, Soft Stop, 12/21/23 15:20:00 EDT, Tablet, [facility], Partial fill upon patient request if [...] 0 Refills, Maintenance, 03/09/24 14:42:00 EDT, Nasal [place], [facility], Partial fill upon patient request if the prescription is for a schedule II opi... Start Date: 03/09/24 Status: Ordered Lidoderm 5% film 1 patch, Topically, Daily, remove patches after 12 hours, # 30 patch, 0 Refills, Maintenance, 03/09/24 14:43:00 EDT, Film, [facility], Partial fill upon patient request if [...] 02/13/24 16:31:00 EDT, Route to Pharmacy Electronically, [facility], 163, cm, 02/11/24 1:23:00 EDT, Height, 96.5, kg, 02/11/24 1:23:00 EDT, Dry Weight Start Date: 02/13/24 Status: Ordered Micon 7 100 mg suppository 1 sprays, Vaginally, Daily at bedtime, # 7 supp, 0 Refills, Acute 03/24/24 15:42:00 EDT, 03/23/24 15:42:00 EDT, Suppository, [facility], Partial fill upon patient request if the prescription is for a schedule II opioid drug., 168, cm, ... Start Date: 03/23/24 Stop Date: 03/24/24 Status: Ordered MiraLax Powder 1 pack/packet = [...] 0 Refills, Maintenance, 12/23/23 17:55:00 EDT, ECCapsule, [facility], Partial fill upon patient request if [...] Maintenance,07/19/23 13:53:00 EDT, Route to Pharmacy Electronically, [facility], Partial fill upon patient request if the prescription is for a schedule... Start Date: 07/19/23 Stop Date: 08/18/23 Status: Ordered Provera 10 mg oral tablet 10 mg, 1, tablet, By Mouth, Daily, call the office at [phone] if you do not get a menstrual cycle., # 10 tablet, Refills 0, Tot. Refills 0, Maintenance, 12/21/23 15:20:00 EDT, Route to Pharmacy Electronically, [facility], Partial fill u... Start Date: 12/21/23 Stop Date: 12/31/23 Status: Ordered traZODone 50 mg oral tablet 50 mg, 1, tablet, By Mouth, Daily at bedtime, # 30 tablet, Refills 0, Tot. Refills 0, Maintenance, 07/19/23 13:53:00 EDT, Route to Pharmacy Electronically, [facility], Partial fill upon patient request if the prescription is for a schedule I... Start Date: 07/19/23 Stop Date: 08/18/23 Status: Ordered Vitamin C 250 mg oral tablet See Instructions, 1 tablet By Mouth every other day with iron Daily at 9am, # 45 tablet, 11 Refills, Maintenance, 02/17/24 9:32:00 EDT, [facility], 163, cm, 02/17/24 9:01:00 EDT, Height, 96.5, kg, 02/11/24 1:23:00 EDT, Dry Weight Start Date: 02/17/24 Status: Ordered Vitamin C 250 mg oral tablet 1 tablet, By Mouth, Daily in AM, AT 9AM., # 30 tablet, 0 Refills, Maintenance, 02/02/24 15:05:00 EDT, [facility], 163, cm, 01/24/24 9:01:00 EDT, Height, 100.2, kg, 10/17/23 16:02:00 EST, Dry Weight Start Date: 02/02/24 Status: Ordered ZyPREXA 10 mg oral tablet 10 mg, 1, tablet, By Mouth, Daily at bedtime, # 30 tablet, Refills 0, Tot. Refills 0, Maintenance, 07/19/23 13:50:00 EDT, Route to Pharmacy Electronically, [facility], Partial fill upon patient request if [...] 2 Oxygen Saturation [94-100 %] 100 % (03/23/24 2:47 PM) 100 % (03/23/24 11:31 AM) Pulse Rate [55-90 bpm] 95 bpm *H* (03/23/24 2:47 PM) 99 bpm *H* (03/23/24 11:31 AM) Blood Pressure [90-138/55-84 mm Hg] 120/ 80mm Hg (03/23/24 2:47 PM) 151/95mm Hg *H* (03/23/24 11:31 AM) Respiratory Rate [16-30 br/min] 18 br/mi n (03/23/24 2:47 PM) 16 br/min (03/23/24 11:31 AM) Temperature [96.8-100.4 DegF] 97.8 DegF (03/23/24 11:31 AM) Mode of Delivery (Oxygen) Room air (03/23/24 2:47 PM) Room air (03/23/24 11:31 AM) Temperature Route Oral (03/23/24 11:31 AM) Social History Social History Type Response Smoking Status 5-9 cigarettes (betw een 1/4 to 1/2 pack)/day in last 30 days; Interested in cessation: No; Patient wants NRT during admission Yes; Other: will accept nicotine gum; entered on: 07/14/23 Sex History and physical note * Event Display: History and Physical Hospital Authored Date: [id number] [place], [place] PSYCHIATRIC HISTORY ASSESS EXAM NAME: LORETTA CELESTIN : 89 MR#: [id number] PCP: ADMITTED: 12/20/15 DATE OF SERVICE: 12/20/15 HPI - Hosp Psych H P Chief Complaint Pt was sent from [facility] here for hallunication History of Present Illness 24 yo AA Female with known schizophrenia was seen at [facility] for hallucination. Apparently pt has been lived in fpc and sent to [facility] for acute exacerbation of her underline schizophrenia. [...] QDAY Haloperidol* (Haldol*) 5 MG PO BID [place] Carbonate SR* (Lithobid*) 300 MG PO QDAY liTHIum Carbonate SR* ([place] Carbonate SR*) 450 MG PO 4PM Discontinued Reported Medications Citalopram* (CeleXA*) 40 MG PO QDAY Benztropine* 0.5 MG PO BID buPROPion SR* 150 MG PO [id number] Trazodone* (Desyrel*) 100 MG PO HS RisperiDONE* [...] 324 MG QDAY 12/20 0900 CKD PO [place] Carbonate 300 MG QDAY 12/20 0900 AC PO Polyethylene Glycol 17 GM QDAY 12/20 09 CKD PO Benztropine Mesylate 1 MG 0900,1700 12/19 1700 AC PO Docusate Sodium 100 MG 0900,1700 12/19 1700 AC PO Haloperidol 5 MG 0900,1700 12/19 1700 AC PO [place] Carbonate 450 MG PM 12/19 1700 [...] fullly ambulartory Care Level Complexity of Care [id number] Comprehensive history, comprehensive examination, medical decision making of low complexity, at least 20 minutes at the bedside, patient's floor/ unit. ESigned by: YAS GARZA MD Date:12/21/15 Time:1633 / NOT FOR REDISCLOSURE WITHOUT PATIENT'S INFORMED CONSENT Admission evaluation note * Event Display: Admit Notes Authored Date: [id number] [place], [place] PSYCHIATRIC ADMISSION NOTE NAME: LORETTA CELESTIN : 89 HOSPITAL #: [id number] MR #: [id number] CHART LOC: PCP: DICTATING: MARIA R Robin MD DATE OF ADMISSION: 12/20/15 DATE OF SERVICE: 12/21/15 CHIEF COMPLAINT: This 23-year-old woman was admitted to [facility] on 12/20/15 on [...] is living in a fpc. Came to [place] with her grandmother in [...] best in the past year NAME: LORETTA ECLESTIN : 89 HOSP#: [id number] MR#: [id number] CHART LOC: PCP: DICTATING: MARIA R Robin MD PSYCHIATRIC ADMISSION NOTE CONTINUED: unknown. TREATMENT PLAN: Resume outpatient medications, physical exam, collateral contact with community caregivers and social network, safety plan, aftercare plan and observe. 927 T:sn DD:[id number] TD:0745 DT:20151221 TT:0924 JOB:[id number] MICHELLE/SHANNON MARIA R Robin MD ESigned by: Date:12/22/15 Time:642 NOT FOR REDISCLOSURE WITHOUT PATIENT'S INFORMED CONSENT Note * Oliver Garcia MD: PERFORM Event Display: Patient Education Leaflets Authored Date: [id number] Yeast Infection (Delma Vaginal Infection) ?? [id number] Yeast Infection ([place]ma Vaginal Infection) You have a??Delam??vaginal infection. This is also known as a yeast infection. It's most often caused by a type of yeast (fungus) called??Delma.??Delma??is normally found in the vagina. But if it increases in number, this can lead to infection and cause symptoms. Symptoms of a yeast infection can include: ??? Clumpy or thin, white discharge, which may look like cottage cheese ??? Itching or burning ??? Burning with urination Certain factors can make a yeast infection more likely. These can include: ??? Taking certain medicines, such as antibiotics or control pills ? Diabetes??? Weak immune system A yeast infection is most often treated with antifungal medicine. This may be given as a vaginal cream or pills you take by mouth. Treatment may last for about 1 to 7 days. Women with severe or recurrent infections may need longer courses of treatment. Home care ??? If you???re prescribed medicine, be sure to use it as directed. Finish??all??of the medicine, even if your symptoms go away.??Don???t try to treat yourself using lske-vqz-[id number] products without talking with your healthcare provider first. They will let you know if this is a good choice for you. ??? Ask your provider what steps you can take to help reduce your risk of having a yeast infection in the future. ?? Follow-up care Follow up with your healthcare provider, or as directed. ?? When to get medical advice Call your healthcare provider right away if any of the following occur: ??? You have a fever of 100.4??F (38??C)??or higher, or as directed by your provider. ??? Your symptoms get worse, or they don???t go away within a few days of starting treatment. ??? You have new pain in the lower belly or pelvic region. ??? You have side effects that bother you or a reaction to the cream or pills you???re prescribed. ??? You or any partners you have sex with have new symptoms, such??as a rash, joint pain,or sores. ?? Last Reviewed Date: 2022 ?? [id number] The [employer]. All rights reserved. This information is not intended as a substitute for professional medical care. Always follow your healthcare professional's instructions. ?? Patient Care team information Care Team Personnel Name: Dean Rivas RN Position: [facility] RN Member Role: Primary Care Nurse Name: Jolanta Ace RN Position: [facility] RN Supv Member Role: Primary Care Nurse Name: Fatoumata Stokes DO Position: [facility] Physician - Primary Care Member Role: PCP Address: Address: [address] [place] [address] Adult & [place] [address]- [place] Name: Awilda Grider RN Position: [facility] RN Member Role: Primary Care Nurse Name: Meagan Darden RN Position: [facility] RN Member Role: Primary Care Nurse Name: Chintan Leach DO Position: [facility] Renal MD Member Role: Lifetime Consulting Physician Address: Address: [address] [place] [address] [address] [facility] [place] [place] [address]- [place] Name: Chandler Ye RN Position: [facility] RN Member Role: Primary Care Nurse Name: Apurva Ji RN Position: [facility] ED RN W/OE and Tasks Member Role: Primary Care Nurse Name: Cordelia Matias RN Position: [facility] AMB Nurse Member Role: Primary Care Nurse Name: Riya Moore RN Position: [facility] RN Member Role: Primary Care Nurse Name: Radha Gutierrez Position: [facility] Outreach Member Role: Primary Care Nurse Name: Keenan Vincent RN Position: [facility] SN RN Member Role: Primary Care Nurse Name: Sasha Patricio RN Position: [facility] RN Member Role: Primary Care Nurse Name: Virgie Angel RN Position: [facility] RN Member Role: Primary Care Nurse Name: Malu Palomo Position: [facility] RN Member Role: Primary Care Nurse Name: Azeb Gusman RN Position: [facility] RN Member Role: Primary Care Nurse Name: Kim Cornell RN Position: [facility] RN Member Role: Primary Care Nurse Name: Meredith Martinez RN Position: [facility] RN Member Role: Primary Care Nurse Name: Anika Gotti RN Position: [facility] RN Member Role: Primary Care Nurse Name: Kvng Tompkins RN Position: [facility] MARISABEL RN W/OE and Tasks Member [...] Member Role: Lifetime Consulting Physician Address: Address: [address] [place] [address]- Care Team Related Persons Name: DORITA MCCOLLUM Address: home [address] [place] [address] Name: STEW PECK Address: [address] [place] [address] Name: LISA PALMA Address: home [address] [place] [phone]
--- OUTSIDE RECORDS SUMMARY | 2024-06-11 16:52 | XMS_ITS | Continuity of Care Document ---
Author Organization [facility] ter Address [address] [place] [address]- Care Team Providers Care Driver'S License Reviewing Officer Name Role Phone Fatoumata Stokes DO Primary Care Physician Encounter [facility] Date(s): 03/07/24 - 03/08/[address] [address]- Discharge Disposition: A-D/C Home Attending Physician: Tian Zelaya MD Admitting Physician: Tian Zelaya MD Referring Physician: Not on Staff, Referring [...] 0 Refills, Maintenance, 02/17/24 9:30:00 EDT, Tablet, [facility], Partial fill upon patient request if [...] Refills, Soft Stop, 12/21/23 15:20:00 EDT, Tablet, [facility], Partial fill upon patient request if [...] 0 Refills, Maintenance, 07/05/23 0:27:00 EDT, Nasal [place], Partial fill upon patient request if the [...] 02/13/24 16:31:00 EDT, Route to Pharmacy Electronically, [facility], 163, cm, 02/11/24 1:23:00 EDT, Height, [...] 0 Refills, Maintenance, 12/23/23 17:55:00 EDT, ECCapsule, [facility], Partial fill upon patient request [...] Maintenance,07/19/23 13:53:00 EDT, Route to Pharmacy Electronically, [facility], Partial fill upon patient request if the prescription is for a schedule... Start Date: 07/19/23 Stop Date: 08/18/23 Status: Ordered Provera 10 mg oral tablet 10 mg, 1, tablet, By Mouth, Daily, call the office at [phone] if you do not get a menstrual cycle., # 10 tablet, Refills 0, Tot. Refills 0, Maintenance, 12/21/23 15:20:00 EDT, Route to Pharmacy Electronically, [facility], Partial fill u... Start Date: 12/21/23 Stop Date: 12/31/23 Status: Ordered traZODone 50 mg oral tablet 50 mg, 1, tablet, By Mouth, Daily at bedtime, # 30 tablet, Refills 0, Tot. Refills 0, Maintenance, 07/19/23 13:53:00 EDT, Route to Pharmacy Electronically, [facility], Partial fill upon patient request if the prescription is for a schedule I... Start Date: 07/19/23 Stop Date: 08/18/23 Status: Ordered Vitamin C 250 mg oral tablet See Instructions, 1 tablet By Mouth every other day with iron Daily at 9am, # 45 tablet, 11 Refills, Maintenance, 02/17/24 9:32:00 EDT, [facility], 163, cm, 02/17/24 9:01:00 EDT, Height, 96.5, kg, 02/11/24 1:23:00 EDT, Dry Weight Start Date: 02/17/24 Status: Ordered Vitamin C 250 mg oral tablet 1 tablet, By Mouth, Daily in AM, AT 9AM., # 30 tablet, 0 Refills, Maintenance, 02/02/24 15:05:00 EDT, [facility], 163, cm, 01/24/24 9:01:00 EDT, Height, 100.2, kg, 10/17/23 16:02:00 EST, Dry Weight Start Date: 02/02/24 Status: Ordered ZyPREXA 10 mg oral tablet 10 mg, 1, tablet, By Mouth, Daily at bedtime, # 30 tablet, Refills 0, Tot. Refills 0, Maintenance, 07/19/23 13:50:00 EDT, Route to Pharmacy Electronically, [facility], Partial fill upon patient request if [...] 1 Oxygen Saturation [94-100 %] 100 % (03/07/24 7:16 PM) Pulse Rate [55-90 bpm] 100 bpm *H* (03/07/24 7:16 PM) Blood Pressure [90-138/55-84 mm Hg] 115/ 71mm Hg (03/07/24 7:16 PM) Respiratory Rate [16-30 br/min] 18 br/mi n (03/07/24 7:16 PM) Temperature [96.8-100.4 DegF] 98.4 DegF (03/07/24 7:16 PM) Mode of Delivery (Oxygen) Room air (03/07/24 7:16 PM) Blood pressure sites Arm, right (03/07/24 7:16 PM) Temperature Route Oral (03/07/24 7:16 PM) Social History Social History Type Response Smoking Status 5-9 cigarettes (betw een 1/4 to 1/2 pack)/day in last 30 days; Interested in cessation: No; Patient wants NRT during admission Yes; Other: will accept nicotine gum; entered on: 07/14/23 Sex History and physical note * Event Display: History and Physical Hospital Authored Date: [id number] [place], [place] PSYCHIATRIC HISTORY ASSESS EXAM NAME: LORETTA CELESTIN : 89 MR#: [id number] PCP: ADMITTED: 12/20/15 DATE OF SERVICE: 12/20/15 HPI - Hosp Psych H P Chief Complaint Pt was sent from [facility] ER here for hallunication History of Present Illness 24 yo AA Female with known schizophrenia was seen at [facility] ER for hallucination. Apparently pt has been lived in usp and sent to [facility] for acute exacerbation of her [...] QDAY Haloperidol* (Haldol*) 5 MG PO BID [place] Carbonate SR* (Lithobid*) 300 MG PO QDAY liTHIum Carbonate SR* ([place] Carbonate SR*) 450 MG PO 4PM Discontinued Reported Medications Citalopram* (CeleXA*) 40 MG PO QDAY Benztropine* 0.5 MG PO BID buPROPion SR* 150 MG PO [id number] Trazodone* (Desyrel*) 100 MG PO HS RisperiDONE* [...] 324 MG QDAY 12/20 0900 CKD PO [place] Carbonate 300 MG QDAY 12/20 0900 AC PO Polyethylene Glycol 17 GM QDAY 12/20 0900 CKD PO Benztropine Mesylate 1 MG 0900,1700 12/19 1700 AC PO Docusate Sodium 100 MG 0900,1700 12/19 1700 AC PO Haloperidol 5 MG 0900,1700 12/19 1700 AC PO [place] Carbonate 450 MG PM 12/19 1700 AC [...] fullly ambulartory Care Level Complexity of Care [id number] Comprehensive history, comprehensive examination, medical decision making of low complexity, at least 20 minutes at the bedside, patient's floor/ unit. ESigned by: YAS GARZA MD Date:12/21/15 Time:1633 / NOT FOR REDISCLOSURE WITHOUT PATIENT'S INFORMED CONSENT Admission evaluation note * Event Display: Admit Notes Authored Date: [id number] [place], [place] PSYCHIATRIC ADMISSION NOTE NAME: LORETTA CELESTIN : 89 HOSPITAL #: [id number] MR #: [id number] CHART LOC: PCP: DICTATING: MARIA R Robin MD DATE OF ADMISSION: 12/20/15 DATE OF SERVICE: 12/21/15 CHIEF COMPLAINT: This 23-year-old woman was admitted to [facility] on 12/20/15 on a Conditional [...] is living in a usp. Came to [place] with her grandmother in [...] year NAME: LORETTA CELESTIN : 89 HOSP#: [id number] MR#: [id number] CHART LOC: PCP: DICTATING: MARIA R Robin MD PSYCHIATRIC ADMISSION NOTE CONTINUED: unknown. TREATMENT PLAN: Resume outpatient medications, physical exam, collateral contact with community caregivers and social network, safety plan, aftercare plan and observe. 927 T: DD:[id number] TD:0745 DT:20151221 TT:0924 JOB:[id number] MICHELLE/SHANNON MARIA R Robin MD ESigned by: Date:12/22/15 Time:06 NOT FOR REDISCLOSURE WITHOUT PATIENT'S INFORMED CONSENT Patient Care team information Care Team Personnel Name: Dean Rivas RN Position: [facility] RN Member Role: Primary Care Nurse Name: Jolanta Ace RN Position: [facility] RN Supv Member Role: Primary Care Nurse Name: Fatoumata Stokes DO Position: [facility] Physician - Primary Care Member Role: PCP Address: Address: [address] [place] [address] Adult [place] [address]- Name: Awilda Grider RN Position: [facility] RN Member Role: Primary Care Nurse Name: Meagan Darden RN Position: [facility] RN Member Role: Primary Care Nurse Name: Chintan Leach DO Position: [facility] Renal MD Member Role: Lifetime Consulting Physician Address: Address: [address] [place], [place] [address] [place] [address]- Name: Chandler Ye RN Position: [facility] RN Member Role: Primary Care Nurse Name: Apurva Ji RN Position: [facility] ED RN W/OE and Tasks Member Role: Primary Care Nurse Name: Cordelia Matias RN Position: [facility] AMB Nurse Member Role: Primary Care Nurse Name: Riya Moore RN Position: [facility] RN Member Role: Primary Care Nurse Name: Radha Gutierrez Position: [facility] Outreach Member Role: Primary Care Nurse Name: Keenan Vincent RN Position: [facility] RN Member Role: Primary Care Nurse Name: Sasha Patricio RN Position: [facility] RN Member Role: Primary Care Nurse Name: Virgie Angel RN Position: [facility] RN Member Role: Primary Care Nurse Name: Malu Palomo Position: [facility] RN Member Role: Primary Care Nurse Name: Azeb Gusman RN Position: [facility] RN Member Role: Primary Care Nurse Name: Asher Diaz RN Position: [facility] RN Member Role: Primary Care Nurse Name: Kim Cornell RN Position: [facility] RN Member Role: Primary Care Nurse Name: Meredith Martinez RN Position: [facility] RN Member Role: Primary Care Nurse Name: Anika Gotti RN Position: [facility] RN Member Role: Primary Care Nurse Name: Kvng Tompkins RN Position: [facility] ED RN W/OE and Tasks Member Role: Primary Care Nurse Name: Rafiq Muñoz RN Position: [facility] RN Member Role: Primary Care Nurse Name: Justina Walker RN Position: [facility] RN Member Role: Primary Care Nurse Name: Ivone Hidalgo RN Position: [facility] RN Member Role: Primary Care Nurse Name: Mazin Penn MD Position: [facility] Physician - Behavioral Health Member Role: Lifetime Consulting Physician Address: Address: [address] [place] [address]- [place] Care Team Related Persons Name: DORITA MCCOLLUM Address: [address] [place] [address] Name: STEW PECK Address: home [address] [place] [address] Name: LISA PALMA Address: [address] [place] [address]
--- OUTSIDE RECORDS SUMMARY | 2024-06-11 16:52 | XMS_ITS | Continuity of Care Document ---
Author Organization [facility] ter Address [address] [place] [address]- Care Team Providers Care Locomotive Boilermaker Name Role Phone Fatoumata Stokes DO Primary Care Physician ( [phone] Encounter [facility] Date(s): 01/02/24 - 01/03/[address] [address]- Discharge Disposition: A-D/C Home Attending Physician: Janusz [...] Refills, Soft Stop, 12/21/23 15:20:00 EDT, Tablet, [facility], Partial fill upon patient request if [...] 0 Refills, Maintenance, 07/05/23 0:27:00 EDT, Nasal [place], Partial fill upon patient request if the [...] 0 Refills, Maintenance, 12/23/23 17:55:00 EDT, ECCapsule, [facility], Partial fill upon patient request if [...] By Mouth, Daily, call the office at [phone] if you do not get a menstrual cycle., # 10 tablet, Refills 0, Tot. Refills 0, Maintenance, 12/21/23 15:20:00 EDT, Route to Pharmacy Electronically, [facility], Partial fill u... Start Date: 12/21/23 [...] 07/19/23 13:50:00 EDT, Route to Pharmacy Electronically, [facility], Partial fill upon patient request if [...] Exam Date Time Procedure Performing Provider Status 01/02/24 11:41 PM Abdomen AP Joyce Forrest; Auth (V erified) Notes: (Abdomen AP) Reason For Exam: Constipation RESULT: XR Abdomen AP XR Abdomen AP 1 view INDICATION/CLINICAL QUESTION: Hx of Present Illness: NAUSEA; Reason: Constipation; Clinical Question(s): Constipation COMPARISON: CT from 11/27/2019. FINDINGS: Mild stool retention but otherwise normal bowel gas pattern. No evidence of obstruction. No evidence of pneumoperitoneum. No organomegaly, masses or calcifications. No acute bone findings. IMPRESSION: Mild stool retention but otherwise normal. WSN: [id number] Ordering Physician: Charu Ramos Dictated By: Keenan Carrillo MD Dictated Date/Time: 01/03/24 8:36 am Reviewed By: Keenan Carrillo MD Signed By: Keenan Carrillo MD Signed Date/Time: 01/03/24 8:36 am Transcribed By: TOMMY Transcribed Date/Time: 01/03/24 8:35 am Vital Signs Most recent to oldest [Reference Range]: 1 2 Oxygen Saturation [94-100 %] 96 % (01/03/24 6:00 AM) 98 % (01/02/24 8:59 PM) Pulse Rate [55-90 bpm] 82 bpm (01/03/24 6:00 AM) 88 bpm (01/02/24 8:59 PM) Blood Pressure [90-138/55-84 mm Hg] 142/ 76mm Hg *H* (01/03/24 6:00 AM) 146/78mm Hg *H* (01/02/24 8:59 PM) Respiratory Rate [16-30 br/min] 18 br/mi n (01/03/24 6:00 AM) 18 br/min (01/02/24 8:59 PM) Temperature [96.8-100.4 DegF] 98.4 DegF (01/03/24 6:00 AM) 98.2 DegF (01/02/24 8:59 PM) Temperature Route Oral (01/02/24 8:59 PM) Social History Social History Type Response Smoking Status 5-9 cigarettes (betw een 1/4 to 1/2 pack)/day in last 30 days; Interested in cessation: No; Patient wants NRT during admission Yes; Other: will accept nicotine gum; entered on: 07/14/23 Sex History and physical note * Event Display: History and Physical Hospital Authored Date: [id number] [place], [place] PSYCHIATRIC HISTORY ASSESS EXAM NAME: LORETTA CELESTIN : 89 MR#: [id number] PCP: ADMITTED: 12/20/15 DATE OF SERVICE: 12/20/15 HPI - Hosp Psych H P Chief Complaint Pt was sent from [facility] ER here for hallunication History of Present Illness 24 yo AA Female with known schizophrenia was seen at [facility] ER for hallucination. Apparently pt has been lived in assisted and sent to [facility] [...] QDAY Haloperidol* (Haldol*) 5 MG PO BID [place] Carbonate SR* (Lithobid*) 300 MG PO QDAY liTHIum Carbonate SR* ([place] Carbonate SR*) 450 MG PO 4PM Discontinued Reported Medications Citalopram* (CeleXA*) 40 MG PO QDAY Benztropine* 0.5 MG PO BID buPROPion SR* 150 MG PO [id number] Trazodone* (Desyrel*) 100 MG PO HS RisperiDONE* [...] 324 MG QDAY 12/20 0900 CKD PO [place] Carbonate 300 MG QDAY 12/20 0900 AC PO Polyethylene Glycol 17 GM QDAY 12/20 0900 CKD PO Benztropine Mesylate 1 MG 0900,1700 12/19 1700 AC PO Docusate Sodium 100 MG 0900,1700 12/19 1700 AC PO Haloperidol 5 MG 0900,12/19 1700 AC PO [place] Carbonate 450 MG PM 12/19 1700 [...] fullly ambulartory Care Level Complexity of Care Q07999 Comprehensive history, comprehensive examination, medical decision making of low complexity, at least 20 minutes at the bedside, patient's floor/ unit. ESigned by: YAS GARZA MD Date:12/21/15 Time:1633 / NOT FOR REDISCLOSURE WITHOUT PATIENT'S INFORMED CONSENT Admission evaluation note * Event Display: Admit Notes Authored Date: [id number] [place], [place] PSYCHIATRIC ADMISSION NOTE NAME: LORETTA CELESTIN : 89 HOSPITAL #: [id number] MR #: [id number] CHART LOC: PCP: DICTATING: MARIA R Robin MD DATE OF ADMISSION: 12/20/15 DATE OF SERVICE: 12/21/15 CHIEF COMPLAINT: This 23-year-old woman was admitted to [facility] on 12/20/15 on a [...] is living in a assisted. Came to [place] with her grandmother in [...] year NAME: LORETTA CELESTIN : 89 HOSP#: [id number] MR#: [id number] CHART LOC: PCP: DICTATING: MARIA R Robin MD PSYCHIATRIC ADMISSION NOTE CONTINUED: unknown. TREATMENT PLAN: Resume outpatient medications, physical exam, collateral contact with community caregivers and social network, safety plan, aftercare plan and observe. 927 T: DD:20151221 TD:0745 DT:20151221 TT:0924 JOB:[id number] TORIE MARIA R Robin MD ESigned by: Date:12/22/15 Time:0643 NOT FOR REDISCLOSURE WITHOUT PATIENT'S INFORMED CONSENT EKG study * Event Display: ECG 12-Lead Authored Date: [id number] Please click on pdf link to open report * Event Display: ECG 12-Lead Authored Date: [id number] Ventricular Rate: 77 BPM Atrial Rate: 77 BPM P-R Interval: 180 ms QRS Duration: 80 ms Q-T Interval: 382 ms QTC Calculation(Bazett): 432 ms P [place]: 60 degrees R [place]: 58 degrees T [place]: 37 degrees Normal sinus rhythm with sinus arrhythmia Normal ECG When compared with ECG of 23-DEC-2023 12:27, No significant change was found Confirmed by ENRIQUE DENT ([id number]) on 01/03/2024 7:05:25 AM [place]: ENRIQUE DENT Note * More Almaraz DO: PERFORM Event Display: Patient Education Leaflets Authored Date: [id number] Constipation (Adult) ?? [id number] Constipation (Adult) Constipation means that you have [...] Weakness ?? Last Reviewed Date: 2021 ?? 1022-4561 [employer]. All rights reserved. This information is not intended as a substitute for professional medical care. Always follow your healthcare professional's instructions. ?? Patient Care team information Care Team Personnel Name: Dean Rivas RN Position: [facility] RN Member Role: Primary Care Nurse Name: Jolanta Ace RN Position: [facility] RN Supv Member Role: Primary Care Nurse Name: Fatoumata Stokes DO Position: [facility] Physician - Primary Care Member Role: PCP Address: Address: [address] [place] [address] Adult & [place] [address]- Name: Awilda Grider RN Position: [facility] RN Member Role: Primary Care Nurse Name: Meagan Darden RN Position: [facility] RN Member Role: Primary Care Nurse Name: Chintan Leach DO Position: [facility] Renal MD Member Role: Lifetime Consulting Physician Address: Address: [address] [place] [address] [address] [facility] [place] [address]- Name: Chandler Ye RN Position: [facility] RN Member Role: Primary Care Nurse Name: Apurva Ji RN Position: [facility] MARISABEL RN W/OE and Tasks Member Role: Primary Care Nurse Name: Cordelia Matias RN Position: [facility] AMB Nurse Member Role: Primary Care Nurse Name: Riya Moore RN Position: [facility] RN Member Role: Primary Care Nurse Name: Radha Gutierrez Position: [facility] Outreach Member Role: Primary Care Nurse Name: Keenan Vincent RN Position: [facility] SN RN Member Role: Primary Care Nurse Name: Sasha Patricio RN Position: [facility] RN Member Role: Primary Care Nurse Name: Virgie Angel Position: [facility] RN Member Role: Primary Care Nurse Name: Malu Palomo Position: [facility] RN Member Role: Primary Care Nurse Name: Azeb Gusman RN Position: [facility] RN Member Role: Primary Care Nurse Name: Asher Diaz RN Position: [facility] RN Member Role: Primary Care Nurse Name: Kim Cornell RN Position: [facility] RN Member Role: Primary Care Nurse Name: Meredith Martinez RN Position: [facility] RN Member Role: Primary Care Nurse Name: Anika Gotti RN Position: [facility] RN Member Role: Primary Care Nurse Name: Kvng Tompkins RN Position: [facility] ED RN W/OE and Tasks Member Role: Primary Care Nurse Name: Rafiq Muñoz RN Position: [facility] RN Member Role: Primary Care Nurse Name: Justina Walker RN Position: [facility] RN Member Role: Primary Care Nurse Name: Ivone Hidalgo RN Position: [facility] RN Member Role: Primary Care Nurse Name: Mazin Penn MD Position: [facility] Physician - Behavioral Health Member Role: Lifetime Consulting Physician Address: Address: [address] [place] [address]- [place] Care Team Related Persons Name: DORITA MCCOLLUM Address: [address] [place] [address] Name: STEW PECK Address: [address] [place] [address] Name: LISA PALMA Address: [address] [place] [address]
--- OUTSIDE RECORDS SUMMARY | 2024-06-11 16:52 | XMS_ITS | Continuity of Care Document ---
Author Organization [facility] Address [address] [place] [address]- Care Team Providers Care Cable Coverer Name Role Phone Fatoumata Stokes DO Primary Care Physician [facility] Date(s): 04/05/24 - 05/05/24 [facility] [address] [place], [place] [address] Allergies, [...] 0 Refills, Maintenance, 02/17/24 9:30:00 EDT, Tablet, [facility], Partial fill upon patient request if [...] Refills, Soft Stop, 04/09/24 12:02:00 EDT, Tablet, [facility], Partial fill upon patient request if [...] 0 Refills, Maintenance, 03/09/24 14:42:00 EDT, Nasal [place], [facility], Partial fill upon patient request if the prescription is for a schedule II opi... Start Date: 03/09/24 Status: Ordered lidocaine 5% topical film 1 patch, Topically, Daily, INSTR:REMOVE PATCHES AFTER 12 HOURS, # 30 each, 0 Refills, Maintenance, 04/26/24 17:29:00 EDT, [facility], 30, APPLY 1 PATCH TOPICALLY DAILY,INSTR:REMOVE [...] Replace Required Details, Route to Pharmacy Electronically, [facility], 163, cm, 04/09/24 11:20:00 EDT, Height, [...] 0 Refills, Maintenance, 04/25/24 10:05:00 EDT, ECCapsule, [facility], Partial fill upon patient request if [...] Maintenance,07/19/23 13:53:00 EDT, Route to Pharmacy Electronically, [facility], Partial fill upon patient request if the prescription is for a schedule... Start Date: 07/19/23 Stop Date: 08/18/23 Status: Ordered Provera 10 mg oral tablet 10 mg, 1, tablet, By Mouth, Daily, call the office at [phone] if you do not get a menstrual cycle., # 10 tablet, Refills 0, Tot. Refills 0, Maintenance, 12/21/23 15:20:00 EDT, Route to Pharmacy Electronically, [facility], Partial fill u... Start Date: 12/21/23 Stop Date: 12/31/23 Status: Ordered traZODone 50 mg oral tablet 50 mg, 1, tablet, By Mouth, Daily at bedtime, # 30 tablet, Refills 0, Tot. Refills 0, Maintenance, 07/19/23 13:53:00 EDT, Route to Pharmacy Electronically, [facility], Partial fill upon patient request if the prescription is for a schedule I... Start Date: 07/19/23 Stop Date: 08/18/23 Status: Ordered Vitamin C 250 mg oral tablet See Instructions, 1 tablet By Mouth every other day with iron Daily at 9am, # 45 tablet, 11 Refills, Maintenance, 02/17/24 9:32:00 EDT, [facility], 163, cm, 02/17/24 9:01:00 EDT, Height, [...] Display: History and Physical Hospital Authored Date: [id number] [place], [place] PSYCHIATRIC HISTORY ASSESS EXAM NAME: LORETTA CELESTIN : 89 MR#: [id number] PCP: ADMITTED: 12/20/15 DATE OF SERVICE: 12/20/15 HPI - Hosp Psych H P Chief Complaint Pt was sent from [facility] ER here for hallunication History of Present Illness 24 yo AA Female with known schizophrenia was seen at [facility] ER for hallucination. Apparently pt has been lived in fdc and [facility] QDAY Haloperidol* (Haldol*) 5 MG PO BID [place] Carbonate SR* (Lithobid*) 300 MG PO QDAY liTHIum Carbonate SR* ([place] Carbonate SR*) 450 MG PO 4PM Discontinued Reported Medications Citalopram* (CeleXA*) 40 MG PO QDAY Benztropine* 0.5 MG PO BID buPROPion SR* 150 MG PO [id number] Trazodone* (Desyrel*) 100 MG PO HS RisperiDONE* [...] 324 MG QDAY 12/20 0900 CKD PO [place] Carbonate 300 MG QDAY 12/20 0900 AC PO Polyethylene Glycol 17 GM QDAY 12/20 0900 CKD PO Benztropine Mesylate 1 MG 0900,1700 12/19 1700 AC PO Docusate Sodium 100 MG 0900,1700 12/19 1700 AC PO Haloperidol 5 MG 0900,1700 12/19 1700 AC PO [place] Carbonate 450 MG PM 12/19 1700 AC [...] fullly ambulartory Care Level Complexity of Care [id number] Comprehensive history, comprehensive examination, medical decision making of low complexity, at least 20 minutes at the bedside, patient's floor/ unit. ESigned by: YAS GARZA MD Date:12/21/15 Time:1633 / NOT FOR REDISCLOSURE WITHOUT PATIENT'S INFORMED CONSENT Admission evaluation note * Event Display: Admit Notes Authored Date: [id number] [place], [place] PSYCHIATRIC ADMISSION NOTE NAME: LORETTA CELESTIN : 89 HOSPITAL #: [id number] MR #: [id number] CHART LOC: PCP: DICTATING: MARIA R Robin MD DATE OF ADMISSION: 12/20/15 DATE OF SERVICE: 12/21/15 CHIEF COMPLAINT: This 23-year-old woman was admitted to [facility] at [facility] on 12/20/15 on a Conditional [...] is living in a fdc. Came to [place] with her grandmother in [...] year NAME: LORETTA CELESTIN : 89 HOSP#: [id number] MR#: [id number] CHART LOC: PCP: DICTATING: MARIA R Robin MD PSYCHIATRIC ADMISSION NOTE CONTINUED: unknown. TREATMENT PLAN: Resume outpatient medications, physical exam, collateral contact with community caregivers and social network, safety plan, aftercare plan and observe. 927 T:sn DD:[id number] TD:0745 DT:20151221 TT:09 JOB:[id number] MICHELLE/SHANNON MARIA R Robin MD ESigned by: [...] Primary Care Member Role: PCP Address: Address: [address] [place] [address]- Name: Awilda Grider RN Position: [facility] RN Member Role: Primary Care Nurse Name: Meagan Darden RN Position: [facility] RN Member Role: Primary Care Nurse Name: Chintan Leach DO Position: [facility] Renal MD Member Role: Lifetime Consulting Physician Address: Address: [address] [place] [address] [address] [facility] [place] [address]- Name: Chandler Ye RN [facility] Rafiq Muñoz RN Position: [facility] RN Member Role: Primary Care Nurse Name: Justina Walker RN Position: [facility] RN Member Role: Primary Care Nurse Name: Ivone Hidalgo RN Position: [facility] RN Member Role: Primary Care Nurse Name: Mazin Penn MD Position: [facility] Physician - Behavioral Health Member Role: Lifetime Consulting Physician Address: Address: [address] [place] [address]- Care Team Related Persons Name: DORITA MCCOLLUM Address: [address] [place] [address] Name: STEW PECK Address: home [address] [place] [address] Name: LISA PALMA Address: home [address] [place] [address]
--- OUTSIDE RECORDS SUMMARY | 2024-06-11 16:52 | XMS_ITS | Continuity of Care Document ---
Author Organization [facility] Address [address] [place] [address]- Care Team Providers Care Flake Drier Name Role Phone Fatoumata Stokes DO Primary Care Physician Encounter [facility] Date(s): 03/26/24 - 05/04/[address] [address] Attending Physician: Fatoumata Stokes DO Admitting Physician: [...] 0 Refills, Maintenance, 02/17/24 9:30:00 EDT, Tablet, [facility], Partial fill upon patient request if [...] Refills, Soft Stop, 04/09/24 12:02:00 EDT, Tablet, [facility], Partial fill upon patient request if [...] 0 Refills, Maintenance, 03/09/24 14:42:00 EDT, Nasal [place], [facility], Partial fill upon patient request if the prescription is for a schedule II opi... Start Date: 03/09/24 Status: Ordered lidocaine 5% topical film 1 patch, Topically, Daily, INSTR:REMOVE PATCHES AFTER 12 HOURS, # 30 each, 0 Refills, Maintenance, 04/26/24 17:29:00 EDT, [facility], 30, APPLY 1 PATCH TOPICALLY DAILY,INSTR:REMOVE [...] Replace Required Details, Route to Pharmacy Electronically, [facility], 163, cm, 04/09/24 11:20:00 EDT, Height, [...] 0 Refills, Maintenance, 04/25/24 10:05:00 EDT, ECCapsule, [facility], Partial fill upon patient request if [...] By Mouth, Daily, call the office at [phone] if you do not get a menstrual [...] tablet, 11 Refills, Maintenance, 02/17/24 9:32:00 EDT, [facility], 163, cm, 02/17/24 9:01:00 EDT, [...] 07/19/23 13:50:00 EDT, Route to Pharmacy Electronically, [facility] [...] Display: History and Physical Hospital Authored Date: [id number] [place], [place] PSYCHIATRIC HISTORY ASSESS EXAM NAME: LORETTA CELESTIN : [birth year] MR#: [id number] PCP: ADMITTED: 12/20/15 DATE OF SERVICE: 12/20/15 [...] lived in senior living and sent to [facility] [...] QDAY Haloperidol* (Haldol*) 5 MG PO BID [place] Carbonate SR* (Lithobid*) 300 MG PO QDAY liTHIum Carbonate SR* ([place] Carbonate SR*) 450 MG PO 4PM Discontinued Reported Medications Citalopram* (CeleXA*) 40 MG PO QDAY Benztropine* 0.5 MG PO BID buPROPion SR* 150 MG PO [id number] Trazodone* (Desyrel*) 100 MG PO HS RisperiDONE* [...] 324 MG QDAY 12/20 0900 CKD PO [place] Carbonate 300 MG QDAY 12/20 0900 AC PO Polyethylene Glycol 17 GM QDAY 12/20 0900 CKD PO Benztropine Mesylate 1 MG 0900,1700 12/19 1700 AC PO Docusate Sodium 100 MG 0900,17012/19 1700 AC PO Haloperidol 5 MG 0900,17012/19 1700 AC PO [place] Carbonate 450 MG PM 12/19 1700 AC [...] fullly ambulartory Care Level Complexity of Care [id number] Comprehensive history, comprehensive examination, medical decision making of low complexity, at least 20 minutes at the bedside, patient's floor/ unit. ESigned by: YAS GARZA MD Date:12/21/15 Time:1633 / NOT FOR REDISCLOSURE WITHOUT PATIENT'S INFORMED CONSENT Admission evaluation note * Event Display: Admit Notes Authored Date: [id number] [place], [place] PSYCHIATRIC ADMISSION NOTE NAME: LORETTA CELESTIN : 89 HOSPITAL #: [id number] MR #: [id number] CHART LOC: PCP: DICTATING: MARIA R Robin MD DATE OF ADMISSION: 12/20/15 DATE OF SERVICE: 12/21/15 CHIEF COMPLAINT: This 23-year-old woman was admitted to [facility] on 12/20/15 on a Conditional Voluntary [...] living in a senior living. Came to [place] with her grandmother in [...] year NAME: LORETTA CELESTIN : 89 HOSP#: [id number] MR#: [id number] CHART LOC: PCP: DICTATING: MARIA R Robin MD PSYCHIATRIC ADMISSION NOTE CONTINUED: unknown. TREATMENT PLAN: Resume outpatient medications, physical exam, collateral contact with community caregivers and social network, safety plan, aftercare plan and observe. 927 T: DD:[id number] TD:0745 DT:20151221 TT:0924 [id number]:[id number] MICHELLE/SHANNON MARIA R Robin MD ESigned by: Date:12/22/15 Time:0643 NOT FOR REDISCLOSURE WITHOUT PATIENT'S INFORMED CONSENT Patient Care team information Care Team Personnel Name: Dean Rivas RN Position: [facility] RN Member Role: Primary Care Nurse Name: Jolanta Ace RN Position: [facility] RN Supv Member Role: Primary Care Nurse Name: Fatoumata Stokes DO Position: [facility] Physician - Primary Care Member Role: PCP Address: Address: [address] [place] [address] Adult [place] [address]- [place] Name: Awilda Grider RN Position: [facility] RN Member Role: Primary Care Nurse Name: Meagan Darden RN Position: [facility] RN Member Role: Primary Care Nurse Name: Chintan Leach DO Position: [facility] Renal MD Member Role: Lifetime Consulting Physician Address: Address: [address] [place], [place] [address] [place] [address]- Name: Chandler Ye RN Position: [facility] RN Member Role: Primary Care Nurse Name: Apurva Ji RN Position: [facility] ED RN W/OE and Tasks Member Role: Primary Care Nurse Name: Cordelia Matias RN Position: [facility] AMB Nurse Member Role: Primary Care Nurse Name: Riya Moore RN Position: [facility] RN Member Role: Primary Care Nurse Name: Radha Gutierrez Position: [facility] Outreach Member Role: Primary Care Nurse Name: Keenan Vincent RN Position: [facility] SN RN Member Role: Primary Care Nurse Name: Sasha Patricio RN Position: [facility] RN Member Role: Primary Care Nurse Name: Virgie Angel RN Position: [facility] RN Member Role: Primary Care Nurse Name: Malu Palomo Position: [facility] RN Member Role: Primary Care Nurse Name: Azeb Gusman RN Position: [facility] RN Member Role: Primary Care Nurse Name: Asher Diaz RN Position: [facility] RN Member Role: Primary Care Nurse Name: Kim Cornell RN Position: [facility] RN Member Role: Primary Care Nurse Name: Meredith Martinez RN Position: [facility] RN Member Role: Primary Care Nurse Name: Anika Gotti RN Position: [facility] RN Member Role: Primary Care Nurse Name: Kvng Tompkins RN Position: [facility] ED RN W/OE and Tasks Member Role: Primary Care Nurse Name: Rafiq Muñoz RN Position: [facility] RN Member Role: Primary Care Nurse Name: Justina Walker RN Position: [facility] RN Member Role: Primary Care Nurse Name: Ivone Hidalgo RN Position: [facility] RN Member Role: Primary Care Nurse Name: Mazin Penn MD Position: [facility] Physician - Behavioral Health Member Role: Lifetime Consulting Physician Address: Address: [address] [place] [address]- [place] Care Team Related Persons Name: MICK MCCOLLUMTRA Address: [address] [place] [address] Name: STEW PECK Address: [address] [place] [address] Name: LISA PALMA Address: [address] [place] [address]
--- OUTSIDE RECORDS SUMMARY | 2024-06-11 16:52 | XMS_ITS | Continuity of Care Document ---
Author Organization [facility] Address [address] [place] [address]- Care Team Providers Care Dietetic Technician Registered Name Role Phone Fatoumata Stokes DO Primary Care Physician [facility] 05/27/23 - 09/24/23 [facility] [address] [place], [place] [address] Attending Physician: Fatoumata Stokes DO Allergies, Adverse [...] 0 Refills, Maintenance, 07/05/23 0:27:00 EDT, Nasal [place], Partial fill upon patient request if the [...] 0 Refills, Maintenance, 07/19/23 13:49:00 EDT, Capsule, [facility], Partial fill upon patient request if [...] Maintenance,07/19/23 13:53:00 EDT, Route to Pharmacy Electronically, [facility], Partial fill upon patient request if the prescription is for a schedule... Start Date: 07/19/23 Stop Date: 08/18/23 Status: Ordered traZODone 50 mg oral tablet 50 mg, 1, tablet, By Mouth, Daily at bedtime, # 30 tablet, Refills 0, Tot. Refills 0, Maintenance, 07/19/23 13:53:00 EDT, Route to Pharmacy Electronically, [facility], Partial fill upon patient request if [...] 07/19/23 13:50:00 EDT, Route to Pharmacy Electronically, [facility], Partial fill upon patient request if [...] Display: History and Physical Hospital Authored Date: [id number] [place], [place] PSYCHIATRIC HISTORY ASSESS EXAM NAME: LORETTA CELESTIN : [birth year] MR#: [id number] PCP: ADMITTED: 12/20/15 DATE OF SERVICE: 12/20/15 HPI - Hosp Psych H P Chief Complaint Pt was sent from [facility] here for hallunication History of Present Illness 24 yo AA Female with known schizophrenia was seen at [facility] ER for hallucination. Apparently pt has been lived in prison and sent to [facility] for acute exacerbation of her underline schizophrenia. [...] QDAY Haloperidol* (Haldol*) 5 MG PO BID [place] Carbonate SR* (Lithobid*) 300 MG PO QDAY liTHIum Carbonate SR* ([place] Carbonate SR*) 450 MG PO 4PM Discontinued Reported Medications Citalopram* (CeleXA*) 40 MG PO QDAY Benztropine* 0.5 MG PO BID buPROPion SR* 150 MG PO [id number] Trazodone* (Desyrel*) 100 MG PO HS RisperiDONE* [...] 324 MG QDAY 12/20 09 CKD PO [place] Carbonate 300 MG QDAY 12/20 09 AC PO Polyethylene Glycol 17 GM QDAY 12/20 09 CKD PO Benztropine Mesylate 1 MG 0900,12/19 1700 AC PO Docusate Sodium 100 MG 0900,17012/19 1700 AC PO Haloperidol 5 MG 0900,17012/19 1700 AC PO [place] Carbonate 450 MG PM 12/19 1700 AC [...] fullly ambulartory Care Level Complexity of Care G61911 Comprehensive history, comprehensive examination, medical decision making of low complexity, at least 20 minutes at the bedside, patient's floor/ unit. ESigned by: YAS GARZA MD Date:12/21/15 Time:1633 / NOT FOR REDISCLOSURE WITHOUT PATIENT'S INFORMED CONSENT Admission evaluation note * Event Display: Admit Notes Authored Date: [id number] [place], [place] PSYCHIATRIC ADMISSION NOTE NAME: LORETTA CELESTIN : 89 HOSPITAL #: [id number] MR #: [id number] CHART LOC: PCP: DICTATING: MARIA R Robin MD DATE OF ADMISSION: 12/20/15 DATE OF SERVICE: 12/21/15 CHIEF COMPLAINT: This 23-year-old woman was admitted to [facility] on 12/20/15 on a Conditional Voluntary application because of suicidal ideation. HISTORY OF PRESENT ILLNESS: The patient has been treated for schizoaffective disorder depressed type, posttraumatic stress disorder, intellectual disability and alcohol syndrome with multiple hospitalizations for self-harming behavior and suicidal ideation. She presented to Crisis Services from her prison reporting that she was having urges to [...] how they had evolved. Staff at the prison where she lives reported her as unusually [...] HISTORY: The patient is living in a prison. Came to [place] with her grandmother in [...] year NAME: LORETTA CELESTIN : 89 HOSP#: [id number] MR#: [id number] CHART LOC: PCP: DICTATING: MARIA R Robin MD PSYCHIATRIC ADMISSION NOTE CONTINUED: unknown. TREATMENT PLAN: Resume outpatient medications, physical exam, collateral contact with community caregivers and social network, safety plan, aftercare plan and observe. 927 T:sn DD:20151221 TD:0745 DT:20151221 TT:0924 JOB:[id number] MICHELLE/SHANNON MARIA R Robin MD ESigned by: Date:12/22/15 Time:642 NOT FOR REDISCLOSURE WITHOUT PATIENT'S INFORMED CONSENT Patient Care team information Care Team Personnel Name: Dean Rivas RN Position: S RN Member Role: Primary Care Nurse Name: Jolanta Ace RN Position: [facility] RN Supv Member Role: Primary Care Nurse Name: Fatoumata Stokes DO Position: [facility] Physician - Primary Care Member Role: PCP Address: Address: [address] [place] [address] Adult & [place] [address]- Name: Britt Polanco RN Position: S RN Member Role: Primary Care Nurse Name: Awilda Grider RN Position: S RN Member Role: Primary Care Nurse Name: Meagan Darden RN Position: S RN Member Role: Primary Care Nurse Name: Chintan Leach DO Position: [facility] Renal MD Member Role: Lifetime Consulting Physician Address: Address: [address] [place], [place] [address] [place] [address]- Name: Chandler Ye RN Position: [facility] RN Member Role: Primary Care Nurse Name: Apurva Ji RN Position: [facility] ED RN W/OE and Tasks Member Role: Primary Care Nurse Name: Cordelia Matias RN Position: [facility] AMB Nurse Member Role: Primary Care Nurse Name: Riya Moore RN Position: [facility] RN Member Role: Primary Care Nurse Name: Radha Gutierrez Position: [facility] Outreach Member Role: Primary Care Nurse Name: Keenan Vincent RN Position: [facility] SN RN Member Role: Primary Care Nurse Name: Sasha Patricio RN Position: [facility] RN Member Role: Primary Care Nurse Name: Virgie Angel Position: [facility] RN Member Role: Primary Care Nurse Name: Emma Kaminski RN Position: [facility] RN Member Role: Primary Care Nurse Name: Malu Palomo Position: [facility] RN Member Role: Primary Care Nurse Name: Azeb Gusman RN Position: [facility] RN Member Role: Primary Care Nurse Name: Asher Diaz RN Position: [facility] RN Member Role: Primary Care Nurse Name: Kim Cornell RN Position: [facility] RN Member Role: Primary Care Nurse Name: Meredith Martinez RN Position: [facility] RN Member Role: Primary Care Nurse Name: Anika Gotti RN Position: [facility] RN Member Role: Primary Care Nurse Name: Kvng Tompkins RN Position: [facility] ED RN W/OE and Tasks Member Role: Primary Care Nurse Name: Rafiq Muñoz RN Position: [facility] RN Member Role: Primary Care Nurse Name: Justina Walker RN Position: [facility] RN Member Role: Primary Care Nurse Name: Ivone Hidalgo RN Position: [facility] RN Member Role: Primary Care Nurse Name: Mazin Penn MD Position: [facility] Physician - Behavioral Health Member Role: Lifetime Consulting Physician Address: Address: [address] [place] [address]- [place] Care Team Related Persons Name: DORITA MCCOLLUM Address: [address] [place] [address] Name: LIV STEW Address: [address] [facility] [address] Name: LISA PALMA Address: [address] [place] [address]
--- OUTSIDE RECORDS SUMMARY | 2024-06-11 16:52 | XMS_ITS | Continuity of Care Document ---
Author Organization [facility] ter Address [address] [place] [address]- Care Team Providers Care Wet Mixer Name Role Phone Fatoumata Stokes DO Primary Care Physician Encounter [facility] Date(s): 04/12/24 - 04/12/[address] [address]- Encounter Diagnosis Ingestion of substance(Final) - 04/12/24 Discharge Disposition: A-D/C Home Attending Physician: Kim Wolf DO Admitting Physician: Kim Wolf DO Referring Physician: Not on Staff, Referring [...] 0 Refills, Maintenance, 02/17/24 9:30:00 EDT, Tablet, [facility], Partial fill upon patient request if [...] Refills, Soft Stop, 04/09/24 12:02:00 EDT, Tablet, [facility] [place] [facility], Partial fill [...] 0 Refills, Maintenance, 03/09/24 14:42:00 EDT, Nasal [place], [facility], Partial fill upon patient request if the prescription is for a schedule II opi... Start Date: 03/09/24 Status: Ordered Lidoderm 5% film 1 patch, Topically, Daily, remove patches after 12 hours, # 30 patch, 0 Refills, Maintenance, 03/09/24 14:43:00 EDT, Film, [facility], Partial fill upon patient request if [...] Replace Required Details, Route to Pharmacy Electronically, [facility], 163, cm, 04/09/24 11:20:00 EDT, Height, [...] 0 Refills, Maintenance, 12/23/23 17:55:00 EDT, ECCapsule, [facility], Partial fill upon patient request if [...] By Mouth, Daily, call the office at [phone] if you do not get a menstrual cycle., # 10 tablet, Refills 0, Tot. Refills 0, Maintenance, 12/21/23 15:20:00 EDT, Route to Pharmacy Electronically, [facility] [place] [facility], Partial fill u... Start [...] tablet, 11 Refills, Maintenance, 02/17/24 9:32:00 EDT, [facility] [place] [facility], 163, cm, 02/17/24 9:01:00 EDT, Height, 96.5, kg, 02/11/24 1:23:00 EDT, Dry Weight Start Date: 02/17/24 Status: Ordered Vitamin C 250 mg oral tablet 1 tablet, By Mouth, Daily in AM, AT 9AM., # 30 tablet, 0 Refills, Maintenance, 02/02/24 15:05:00 EDT, [facility] [place] [facility], 163, cm, 01/24/24 9:01:00 EDT, Height, 100.2, kg, 10/17/23 16:02:00 EST, Dry Weight Start Date: 02/02/24 Status: Ordered ZyPREXA 10 mg oral tablet 10 mg, 1, tablet, By Mouth, Daily at bedtime, # 30 tablet, Refills 0, Tot. Refills 0, Maintenance, 07/19/23 13:50:00 EDT, [facility] [...] [Reference Range]: 1 Oxygen Saturation [94-100 %] 99 % (04/12/24 3:44 PM) Pulse Rate [55-90 bpm] 97 bpm *H* (04/12/24 3:44 PM) Blood Pressure [90-138/55-84 mm Hg] 122/ 72mm Hg (04/12/24 3:44 PM) Respiratory Rate [16-30 br/min] 18 br/mi n (04/12/24 3:44 PM) Temperature [96.8-100.4 DegF] 99.1 DegF (04/12/24 3:44 PM) Mode of Delivery (Oxygen) Room air (04/12/24 3:44 PM) Blood pressure sites Arm, left (04/12/24 3:44 PM) Temperature Route Oral (04/12/24 3:44 PM) Social History Social History Type Response Smoking Status 5-9 cigarettes (betw een 1/4 to 1/2 pack)/day in last 30 days; Interested in cessation: No; Patient wants NRT during admission Yes; Other: will accept nicotine gum; entered on: 07/14/23 Sex History and physical note * Event Display: History and Physical Hospital Authored Date: [id number] [place], [place] PSYCHIATRIC HISTORY ASSESS EXAM NAME: LORETTA CELESTIN : 89 MR#: [id number] PCP: ADMITTED: 12/20/15 DATE OF SERVICE: 12/20/15 HPI - Hosp Psych H P Chief Complaint Pt was sent from [facility] here for hallunication History of Present Illness 24 yo AA Female with known schizophrenia was seen at [facility] for hallucination. Apparently pt has been lived in long-term and [facility] QDAY Haloperidol* (Haldol*) 5 MG PO BID [place] Carbonate SR* (Lithobid*) 300 MG PO QDAY liTHIum Carbonate SR* ([place] Carbonate SR*) 450 MG PO 4PM Discontinued Reported Medications Citalopram* (CeleXA*) 40 MG PO QDAY Benztropine* 0.5 MG PO BID buPROPion SR* 150 MG PO [id number] Trazodone* (Desyrel*) 100 MG PO HS RisperiDONE* [...] 324 MG QDAY 12/20 899 CKD PO [place] Carbonate 300 MG QDAY 12/20 899 AC PO Polyethylene Glycol 17 GM QDAY 12/20 899 CKD PO Benztropine Mesylate 1 MG 09,12/19 1700 AC PO Docusate Sodium 100 MG 0900,12/19 1700 AC PO Haloperidol 5 MG 09,12/19 1700 AC PO [place] Carbonate 450 MG PM 12/19 1700 AC [...] fullly ambulartory Care Level Complexity of Care [id number] Comprehensive history, comprehensive examination, medical decision making of low complexity, at least 20 minutes at the bedside, patient's floor/ unit. ESigned by: YAS GARZA MD Date:12/21/15 Time:1633 / NOT FOR REDISCLOSURE WITHOUT PATIENT'S INFORMED CONSENT Admission evaluation note * Event Display: Admit Notes Authored Date: [id number] [place], [place] PSYCHIATRIC ADMISSION NOTE NAME: LORETTA CELESTIN : 89 HOSPITAL #: [id number] MR #: [id number] CHART LOC: PCP: DICTATING: MARIA R Robin MD DATE OF ADMISSION: 12/20/15 DATE OF SERVICE: 12/21/15 CHIEF COMPLAINT: This 23-year-old woman was admitted to [facility] on 12/20/15 on a Conditional Voluntary [...] is living in a long-term. Came to [place] with her grandmother in 2013, was very [...] year NAME: LORETTA CELESTIN : 89 HOSP#: [id number] MR#: [id number] CHART LOC: PCP: DICTATING: MARIA R Robin MD PSYCHIATRIC ADMISSION NOTE CONTINUED: unknown. TREATMENT PLAN: Resume outpatient medications, physical exam, collateral contact with community caregivers and social network, safety plan, aftercare plan and observe. 927 T:sn DD:[id number] TD:0745 DT:[id number] TT:0924 JOB:[id number] MICHELLE/SHANNON MARIA R Robin MD ESigned by: Date:12/22/15 Time:06 NOT FOR REDISCLOSURE WITHOUT PATIENT'S INFORMED CONSENT Note * Ozzy Shay MD: PERFORM Event Display: Patient Education Leaflets Authored Date: [id number] Accidental Ingestion: Nontoxic (Adult) ?? [id number] Accidental Ingestion: Nontoxic (Adult) You have been evaluated and treated for accidentally taking too much of a medicine, using someone else's medicine by mistake, or swallowing a chemical product. There is no sign of toxic effect at this time. It's not likely that any new symptoms will appear. But to be safe, watch for symptoms duringthe next 24 hours (see below). The symptoms will depend on what was swallowed. Home care ??? If liquid charcoal was given to neutralize what was swallowed, your stool may be black for 1 to 2 days. A laxative may be given with charcoal. This speeds the removal of any toxins fromthe intestines. This may cause diarrhea for up to 24 hours. ??? If you have been given charcoal butno laxative, you may become constipated. If this occurs, you may take an [id number]-ial-[id number] laxative. ?? Prevention ??? Keep medicines, pesticides, and other household chemicals in their original containers. ??? Keep all substances in a safe place. Store household products in a different place than food and medicine. ??? Use household products as instructed on the label. Mixing products can be dangerous. ??? Take medicine as directed by your healthcare provider. Read the label carefully. ??? If a medicine doesn't work, contact your healthcare provider. Don't take extra medicine. ??? Don't take someone else'smedicine. In the future, if you or someone you know takes something possibly harmful and you are not sure what to do, call the Poison Control Centers. The phone number is [phone]. The phone line is staffed 24 hours a day. If you call, you will be connected to the poison control center closest to you. ?? Follow-up care Follow up with your healthcare provider, or as advised. ?? Call 911 Call 911 if any of these occur. ??? Trouble breathing or swallowing, wheezing ??? Severe confusion ??? Extreme drowsiness or trouble awakening ??? Fainting or loss of consciousness ??? Rapid heart rate ??? Very slow heart rate ??? Very low or very high blood pressure ??? Vomiting blood, or large amounts of blood in stool ??? Seizure ?? When to seek medical advice Call your healthcare provider right away if any of these occur. ??? Shakiness ??? Fast breathing (over 25 breaths per minute) or slow breathing (less than 8 breaths per minute) ??? Shortness of breath ??? Fever of 100.4??F (38??C) or higher, or as directed by your healthcare provider ??? Vomiting or diarrhea for more than 24 hours ??? Abdominal pain ??? Dizziness or weakness ?? Last Reviewed Date: 2022 ?? [id number] [employer]. All rights reserved. This information is not [...] Primary Care Member Role: PCP Address: Address: [address] [place] [address] Adult & Pediatric Medicine [address] Name: Awilda Grider RN Position: [facility] RN Member Role: Primary Care Nurse Name: Meagan Darden RN Position: [facility] RN Member Role: Primary Care Nurse Name: Chintan Leach DO Position: [facility] Renal MD Member Role: Lifetime Consulting Physician Address: Address: [address] [place] [address] [address] [facility] [place] [address]- Name: Chandler Ye RN Position: [facility] RN Member Role: Primary Care Nurse Name: Apurva Ji RN Position: [facility] ED RN W/OE and Tasks Member Role: Primary Care Nurse Name: Cordelia Matias RN Position: [facility] AMB Nurse Member Role: Primary Care Nurse Name: Riya Moore RN Position: [facility] RN Member Role: Primary Care Nurse Name: Radha Gutierrez Position: [facility] Outreach Member Role: Primary Care Nurse Name: Keenan Vincent RN Position: [facility] SN RN Member Role: Primary Care Nurse Name: Sasha Patricio RN Position: [facility] RN Member Role: Primary Care Nurse Name: Virgie Angel RN Position: [facility] RN Member Role: Primary Care Nurse Name: Malu Palomo Position: [facility] RN Member Role: Primary Care Nurse Name: Azeb Gusman RN Position: [facility] RN Member Role: Primary Care Nurse Name: Kim Cornell RN Position: [facility] RN Member Role: Primary Care Nurse Name: Merdeith Martinez RN Position: [facility] RN Member Role: Primary Care Nurse Name: Anika Gotti RN Position: [facility] RN Member Role: Primary Care Nurse Name: Kvng Tompkins RN Position: [facility] ED RN W/OE and Tasks Member Role: Primary Care Nurse Name: Rafiq Muñoz RN Position: [facility] RN Member Role: Primary Care Nurse Name: Justina Walker RN Position: [facility] RN Member Role: Primary Care Nurse Name: Ivone Hidalgo RN Position: [facility] RN Member Role: Primary Care Nurse Name: Mazin Penn MD Position: [facility] Physician - Behavioral Health Member Role: Lifetime Consulting Physician Address: Address: [address] [place] [address]- [place] Care Team Related Persons Name: DORITA MCCOLLUM Address: [address] [place] [address] Name: STEW PECK Address: home [address] [place] [address] Name: LISA PALMA Address: [address] [place] [address]
--- OUTSIDE RECORDS SUMMARY | 2024-06-11 16:52 | XMS_ITS | Continuity of Care Document ---
Author Organization [facility] Address [address] [place] [address]- Care Team Providers Care Aging Department Supervisor Name Role Phone Fatoumata Stokes DO Primary Care Physician Encounter [facility] Date(s): 07/26/23 - 08/25/23 [facility] [address] [place] [address]- Allergies, Adverse Reactions, Alerts Substance Reaction Severity [...] 07/19/23 13:48:00 EDT, Route to Pharmacy Electronically, [facility], Partial fill upon patient request ifthe [...] 0 Refills, Maintenance, 07/05/23 0:27:00 EDT, Nasal [place], Partial fill upon patient request if the [...] 0 Refills, Maintenance, 07/19/23 13:49:00 EDT, Capsule, [facility], Partial fill upon patient request if [...] 07/19/23 13:53:00 EDT, Route to Pharmacy Electronically, [facility], Partial fill upon patient request if [...] 07/19/23 13:50:00 EDT, Route to Pharmacy Electronically, [facility], Partial fill upon patient request if [...] Display: History and Physical Hospital Authored Date: [id number] [place], [place] PSYCHIATRIC HISTORY ASSESS EXAM NAME: LORETTA CELESTIN : 89 MR#: [id number] PCP: ADMITTED: 12/20/15 DATE OF SERVICE: 12/20/15 HPI - Hosp Psych H P Chief Complaint Pt was sent from [facility] here for hallunication History of Present Illness 24 yo AA Female with known schizophrenia was seen at [facility] for hallucination. Apparently pt has been lived in assisted and sent to [facility] QDAY Haloperidol* (Haldol*) 5 MG PO BID [place] Carbonate SR* (Lithobid*) 300 MG PO QDAY liTHIum Carbonate SR* ([place] Carbonate SR*) 450 MG PO 4PM Discontinued Reported Medications Citalopram* (CeleXA*) 40 MG PO QDAY Benztropine* 0.5 MG PO BID buPROPion SR* 150 MG PO [id number] Trazodone* (Desyrel*) 100 MG PO HS RisperiDONE* [...] 324 MG QDAY 12/20 0900 CKD PO [place] Carbonate 300 MG QDAY 12/20 0900 AC PO Polyethylene Glycol 17 GM QDAY 12/20 09 CKD PO Benztropine Mesylate 1 MG 0900,1700 12/19 1700 AC PO Docusate Sodium 100 MG 0900,1700 12/19 1700 AC PO Haloperidol 5 MG 0900,1700 /26 1700 AC PO [place] Carbonate 450 MG PM 12/19 1700 AC [...] fullly ambulartory Care Level Complexity of Care [id number] Comprehensive history, comprehensive examination, medical decision making of low complexity, at least 20 minutes at the bedside, patient's floor/ unit. ESigned by: YAS GARZA MD Date:12/21/15 Time:1633 / NOT FOR REDISCLOSURE WITHOUT PATIENT'S INFORMED CONSENT Admission evaluation note * Event Display: Admit Notes Authored Date: [id number] [place], [place] PSYCHIATRIC ADMISSION NOTE NAME: LORETTA CELESTIN : 89 HOSPITAL #: [id number] MR #: [id number] CHART LOC: PCP: DICTATING: MARIA R Robin MD DATE OF ADMISSION: 12/20/15 DATE OF SERVICE: 12/21/15 CHIEF COMPLAINT: This 23-year-old woman was admitted to [facility] on [...] is living in a assisted. Came to [place] with her grandmother in [...] year NAME: LORETTA CELESTIN : 89 HOSP#: [id number] MR#: [id number] CHART LOC: PCP: DICTATING: MARIA R Robin MD PSYCHIATRIC ADMISSION NOTE CONTINUED: unknown. TREATMENT PLAN: Resume outpatient medications, physical exam, collateral contact with community caregivers and social network, safety plan, aftercare plan and observe. 927 T: DD:[id number] TD:0745 DT:20151221 TT:0924 JOB:[id number] MICHELLE/SHANNON MARIA R Robin MD ESigned by: Date:12/22/15 Time:642 NOT FOR REDISCLOSURE WITHOUT PATIENT'S INFORMED CONSENT Patient Care team information Care Team Personnel Name: Dean Rivas RN Position: [facility] RN Member Role: Primary Care Nurse Name: Tian Naylor RN Position: [facility] RN Member Role: Primary Care Nurse Name: Jolanta Ace RN Position: [facility] RN Supv Member Role: Primary Care Nurse Name: Fatoumata Stokes DO Position: [facility] Physician - Primary Care Member Role: PCP Address: Address: [address] [place] [address] Adult [place] [address]- Name: Britt Polanco RN Position: [facility] RN Member Role: Primary Care Nurse Name: Awilda Grider RN Position: [facility] RN Member Role: Primary Care Nurse Name: Meagan Darden RN Position: [facility] RN Member Role: Primary Care Nurse Name: Chintan Leach DO Position: [facility] Renal MD Member Role: Lifetime Consulting Physician Address: Address: [address] [place] [address] [address] [facility] [place] [address]- Name: Chandler Ye RN Position: [facility] RN Member Role: Primary Care Nurse Name: Apurva Ji RN Position: [facility] ED RN W/OE and Tasks Member Role: Primary Care Nurse Name: Cordelia Matias RN Position: [facility] AMB Nurse Member Role: Primary Care Nurse Name: Riya Moore RN Position: [facility] RN Member Role: Primary Care Nurse Name: Radha Gutierrez Position: [facility] Outreach Member Role: Primary Care Nurse Name: Keenan Vincent RN Position: [facility] SN RN Member Role: Primary Care Nurse Name: Sasha Patricio RN Position: [facility] RN Member Role: Primary Care Nurse Name: Virgie Angel Position: [facility] RN Member Role: Primary Care Nurse Name: Emma Kaminski RN Position: [facility] RN Member Role: [...] Role: Lifetime Consulting Physician Address: Address: [address] [place] [address] [place] Care Team Related Persons Name: DORITA MCCOLLUM Address: [address] [place] [address] Name: STEW PECK Address: [address] [facility], [address] Name: LISA PALMA Address: [address] [place] [address]
--- OUTSIDE RECORDS SUMMARY | 2024-06-11 16:53 | XMS_ITS | Continuity of Care Document ---
Author Organization [facility] Address [address] [place] [address]- Care Team Providers Care Electronic Lab Technician Name Role Phone Fatoumata Stokes DO Primary Care Physician [place] [facility] [place]16[place]24 - 04/16/[address] [address]- Encounter Diagnosis Nausea(Final) - 04/16/24 Discharge Disposition: A-D/C Home Attending Physician: Danish Huang MD Admitting Physician: Danish Huang MD Referring Physician: Not on Staff, Referring [...] 0 Refills, Maintenance, 02/17/24 9:30:00 EDT, Tablet, [facility], Partial fill upon patient request if [...] Refills, Soft Stop, 04/09/24 12:02:00 EDT, Tablet, [facility], Partial fill upon patient [...] 0 Refills, Maintenance, 03/09/24 14:42:00 EDT, Nasal [place], [facility], Partial fill upon patient request if the prescription is for a schedule II opi... Start Date: 03/09/24 Status: Ordered Lidoderm 5% film 1 patch, Topically, Daily, remove patches after 12 hours, # 30 patch, 0 Refills, Maintenance, 03/09/24 14:43:00 EDT, Film, [facility], Partial fill upon patient request if [...] Replace Required Details, Route to Pharmacy Electronically, [facility], 163, cm, 04/09/24 11:20:00 EDT, Height, [...] 0 Refills, Maintenance, 12/23/23 17:55:00 EDT, ECCapsule, [facility], Partial fill upon patient request if [...] Maintenance,07/19/23 13:53:00 EDT, Route to Pharmacy Electronically, [facility], Partial fill upon patient request if the prescription is for a schedule... Start Date: 07/19/23 Stop Date: 08/18/23 Status: Ordered Provera 10 mg oral tablet 10 mg, 1, tablet, By Mouth, Daily, call the office at [phone] if you do not get a menstrual [...] 07/19/23 13:53:00 EDT, Route to Pharmacy Electronically, [facility], Partial fill upon patient request if the prescription is for a schedule I... Start Date: 07/19/23 Stop Date: 08/18/23 Status: Ordered Vitamin C 250 mg oral tablet See Instructions, 1 tablet By Mouth every other day with iron Daily at 9am, # 45 tablet, 11 Refills, Maintenance, 02/17/24 9:32:00 EDT, [facility], 163, cm, 02/17/24 9:01:00 EDT, [...] 1 Oxygen Saturation [94-100 %] 100 % (04/16/24 4:21 PM) Pulse Rate [55-90 bpm] 109 bpm *H* (04/16/24 4:21 PM) Blood Pressure [90-138/55-84 mm Hg] 132/ 100mm Hg (04/16/24 4:21 PM) Respiratory Rate [16-30 br/min] 16 br/mi n (04/16/24 4:21 PM) Temperature [96.8-100.4 DegF] 97.9 DegF (04/16/24 4:21 PM) Mode of Delivery (Oxygen) Room air (04/16/24 4:21 PM) Blood pressure sites Arm, right (04/16/24 4:21 PM) Temperature Route Oral (04/16/24 4:21 PM) Social History Social History Type Response Smoking Status 5-9 cigarettes (betw een 1/4 to 1/2 pack)/day in last 30 days; Interested in cessation: No; Patient wants NRT during admission Yes; Other: will accept nicotine gum; entered on: 07/14/23 Sex History and physical note * Event Display: History and Physical Hospital Authored Date: [id number] [place], [place] PSYCHIATRIC HISTORY ASSESS EXAM NAME: LORETTA CELESTIN : 89 MR#: [id number] PCP: ADMITTED: 12/20/15 DATE OF SERVICE: 12/20/15 HPI - Hosp Psych H P Chief Complaint Pt was sent [place] [facility] here for hallunication History of Present Illness 24 yo AA Female with known schizophrenia was [place] [facility] [place]. Apparently pt has been lived in [facility] and [facility] QDAY Haloperidol* (Haldol*) 5 MG PO BID [place] Carbonate SR* (Lithobid*) 300 MG PO QDAY liTHIum Carbonate SR* ([place] Carbonate SR*) 450 MG PO 4PM Discontinued Reported Medications Citalopram* (CeleXA*) 40 MG PO QDAY Benztropine* 0.5 MG PO BID buPROPion SR* 150 MG PO [id number] Trazodone* (Desyrel*) 100 MG PO HS RisperiDONE* [...] 324 MG QDAY 12/20 899 CKD PO [place] Carbonate 300 MG QDAY 12/20 899 AC PO Polyethylene Glycol 17 GM QDAY 12/20 899 CKD PO Benztropine Mesylate 1 MG 09,12/19 1700 AC PO Docusate Sodium 100 MG 0900,12/19 1700 AC PO Haloperidol 5 MG 09,12/19 1700 AC PO [place] Carbonate 450 MG PM 12/19 1700 AC [...] fullly ambulartory Care Level Complexity of Care [id number] Comprehensive history, comprehensive examination, medical decision making of low complexity, at least 20 minutes at the bedside, patient's floor/ unit. ESigned by: YAS GARZA MD Date:12/21/15 Time:1633 / NOT FOR REDISCLOSURE WITHOUT PATIENT'S INFORMED CONSENT Admission evaluation note * Event Display: Admit Notes Authored Date: [id number] [place], [place] PSYCHIATRIC ADMISSION NOTE NAME: LORETTA CELESTIN : 89 HOSPITAL #: [id number] MR #: [id number] CHART LOC: PCP: DICTATING: MARIA R Robin MD DATE OF ADMISSION: 12/20/15 DATE OF SERVICE: 12/21/15 CHIEF COMPLAINT: This 23-year-old woman was admitted to [facility] [place] on 12/20/15 on a Conditional Voluntary application [...] is living in a chcf. Came to [place] with her grandmother in [...] year NAME: LORETTA CELESTIN : 89 HOSP#: [id number] MR#: [id number] CHART LOC: PCP: DICTATING: MARIA R Robin MD PSYCHIATRIC ADMISSION NOTE CONTINUED: unknown. TREATMENT PLAN: Resume outpatient medications, physical exam, collateral contact with community caregivers and social network, safety plan, aftercare plan and observe. 927 T:sn DD:[id number] TD:0745 DT:20151221 TT:0924 JOB:[id number] MICHELLE/SHANNON MARIA R Robin MD ESigned by: Date:12/22/15 Time:0643 NOT FOR REDISCLOSURE WITHOUT PATIENT'S INFORMED CONSENT EKG study * Event Display: ECG 12-Lead Authored Date: Please click on pdf link to open report * Event Display: ECG 12-Lead Authored Date: Ventricular Rate: 90 BPM Atrial Rate: 90 BPM P-R Interval: 176 ms QRS Duration: 74 ms Q-T Interval: 372 ms QTC Calculation(Bazett): 455 ms P [place]: 50 degrees R [place]: 38 degrees T [place]: 18 degrees Normal sinus rhythm Normal ECG When compared with ECG of 06-APR-2024 11:27, No significant change was found Confirmed by Chandler Torres ([id number]) on 04/16/2024 6:00:30 PM Flom: Chandler Torres Note * Reina TORRES, Danish Rock: JESUS Event Display: Patient Education Leaflets Authored Date: [id number] Hypokalemia ?? [id number] Hypokalemia Hypokalemia means a low level of potassium in the blood. This most often occurs in people who take water pills (diuretics). It can also result from severe vomiting or diarrhea.??You may also have it if you??take laxatives for long periods of time. It sometimes happens if you have low magnesium (hypo magnesemia). If you have this,??your??healthcare provider will treat the low??magnesium first. A mild case of hypokalemia often causes no symptoms. It is only found with blood testing. More severe potassium loss causes: ??? Overall weakness ??? Muscle or stomach cramps ??? Rapid or irregular heartbeats (heart palpitations) ??? Low blood pressure ??? Muscle weakness ??? Short-term paralysis in some people Home care ??? Take any potassium supplements as prescribed. ??? Eat foods rich in potassium. High amounts of potassium are found in baked potatoes, baked sweet potatoes, spinach, cantaloupe, cod, halibut, salmon, and scallops. White, red, or conrad beans are also very good sources. So are avocados, orange juice, bananas, and tomato juice. ??? If you take certain types of diuretics, you will also need to take potassium supplements. Talk with your healthcare provider. ?? Follow-up care Follow up with your??healthcare provider??for a repeat blood test within the next week, or as advised by our staff. ?? When to get medical advice Call your healthcare provider right away if you have: ??? Increased weakness,??fatigue, or muscle cramps ??? Dizziness ?? Call 911 Call 911 if you have: ??? Irregular heartbeat, extra beats, or very fast heart rate ??? Loss of consciousness ?? Last Reviewed Date: 2022 ?? [id number] The [employer]. All rights reserved. This information is not intended as a substitute for professional medical care. Always follow your healthcare professional's instructions. ?? * Danish Huang MD: PERFORM Event Display: Patient Education Leaflets Authored Date: [id number] Unknown Causes of Abdominal Pain(Adult) ?? [id number] Unknown Causes of Abdominal Pain(Adult) The exact cause of your belly (abdominal) pain is not clear. Your exam and tests don't suggest a dangerous cause at this time. This does not mean that this is something to worry about. Everyone likesto know the exact cause of the problem. But sometimes with belly pain, there is no clear-cut cause,and this could be a good thing. Your symptoms can be treated, and you should feel better.?? Your condition does not seem serious now. But sometimes the signs of a serious problem may take more time to appear. For this reason,??it's important for you to watch for any new symptoms, problems,??or worsening of your condition. Over the next few days, the abdominal pain may come and go. Or it may be constant. Other common symptoms can include nausea and vomiting. Sometimes it can be difficult to tell if you feel nauseous. You may just feel bad and not connect that feeling to nausea. Constipation, diarrhea, and a fever maygo along with the pain. The pain may continue even if treated correctly over the following days. Depending on how things go, sometimes the cause can become clear and you may need more??or different treatment. You may also need other evaluations, medicines, or tests. Home care Your healthcare provider may prescribe medicine for pain, symptoms, or an infection. ??Follow the healthcare provider's instructions for taking these medicines. General care ??? Rest as much as you can until your next exam. No strenuous activities. ??? Try to not do anything that may have caused your symptoms. This might be not taking any medicines unless otherwise directed by your healthcare provider. It might be not eating certain foods or doing certain activities. ??? Find positions that ease discomfort. A small pillow placed on your belly may help relieve pain. ??? Something warm on your belly such as a heating pad may help, but be careful not to burn yourself. Diet ??? Don???t??force yourself to eat, especially if having cramps, vomiting, or diarrhea. ??? Water is important so you don't get dehydrated. Soup may also be good. Sports drinks may also help, especially if they are not too acidic. Don't drink sugary drinks as this can make things worse. Take liquids in small amounts. Don???t??guzzle them. ??? Caffeine sometimes makes the pain and cramping worse. ??? Don???t take??dairy products if you have vomiting or diarrhea. ??? Don't eat large amounts at a time. Eat several small meals during the day instead of 2 or 3 larger meals. Wait a few minutesbetween bites. ??? Eat a diet low in fiber (called a low-residue diet). Foods allowed include refined breads, white rice, fruit and vegetable juices without pulp, tender meats. These foods will pass more easily through the intestine. ??? Don???t have??whole-grain foods, whole fruits and vegetables,meats, seeds and nuts, fried or fatty foods, dairy, alcohol and spicy foods until your symptoms go away. ?? Follow-up care Follow up with your healthcare provider, or as advised, if your pain does not begin to improve in the next 24 hours. ?? Call 911 Call?? 911 if any of these occur: ??? Trouble breathing ??? Confusion ??? Fainting or loss of consciousness ??? Rapid heart rate ??? Seizure ?? When to seek medical advice Call your healthcare provider right away if any of these occur: ??? Pain gets worse or moves to theright lower abdomen ??? New or worsening vomiting or diarrhea ??? Swelling of the abdomen ??? Unable to pass stool for more than??3 days ??? Fever of 100.4??F (38??C) or higher, or as directed by your healthcare provider ??? Blood in vomit or bowel movements (dark red or black color) ??? Yellow color of eyes and skin (jaundice) ??? Weakness, dizziness ??? Chest, arm, back, neck, or jaw pain ??? Can't keep down medicines, liquids, or water because of too much vomiting ??? If you have a vagina: unexpected vaginal bleeding or missed period ?? Last Reviewed Date: 2021 ?? [id number] [employer]. All rights reserved. This information is not intended as a substitute for professional medical care. Always follow your healthcare professional's instructions. ?? Patient Care team information Care Team Personnel Name: Dean Rivas RN Position: [facility] RN Member Role: Primary Care Nurse Name: Jolanta Ace RN Position: [facility] STEPHAN Supv Member Role: Primary Care Nurse Name: Fatoumata Stokes DO Position: [facility] Physician - Primary Care Member Role: PCP Address: Address: [address] [place] [address] Adult [facility] [place] [address]- Name: Awilda Grider RN Position: [facility] RN Member Role: Primary Care Nurse Name: Meagan Darden RN Position: [facility] RN Member Role: Primary Care Nurse Name: Chintan Leach DO Position: [facility] Renal MD Member Role: Lifetime Consulting Physician Address: Address: [address] [place], [place] [address] [place] [address]- Name: Chandler Ye RN [facility] Care Nurse Name: Virgie Angel RN Position: [facility] RN [...] Tompkins RN Position: [facility] MARISABEL RN W/OE and Tasks [...] Position: [facility] Physician - [facility] Member Role: [employer] Consulting Physician Address: Address: [address] [place] [address]- [place] Care Team Related Persons Name: DORITA MCCOLLUM Address: home [address] [place] [address] Name: STEW PECK Address: home [address] [place] [address] Name: LISA PALMA Address: [address] [place] [address]
--- OUTSIDE RECORDS SUMMARY | 2024-06-11 16:53 | XMS_ITS | Continuity of Care Document ---
Author Organization [facility] Address [address] [place] [address]- Care Team Providers Care Funeral Home Director Name Role Phone Fatoumata Stokes DO Primary Care Physician Encounter [facility] Date(s): 08/30/23 - 09/29/23 [facility] [address] [place], [place] [address] Allergies, Adverse Reactions, Alerts Substance [...] 0 Refills, Maintenance, 07/05/23 0:27:00 EDT, Nasal [place], Partial fill upon patient request if the [...] 0 Refills, Maintenance, 07/19/23 13:49:00 EDT, Capsule, [facility], Partial fill upon patient request if [...] Maintenance,07/19/23 13:53:00 EDT, Route to Pharmacy Electronically, [facility], Partial fill upon patient request if the prescription is for a schedule... Start Date: 07/19/23 Stop Date: 08/18/23 Status: Ordered traZODone 50 mg oral tablet 50 mg, 1, tablet, By Mouth, Daily at bedtime, # 30 tablet, Refills 0, Tot. Refills 0, Maintenance, 07/19/23 13:53:00 EDT, Route to Pharmacy Electronically, [facility], Partial fill upon patient request if [...] 07/19/23 13:50:00 EDT, Route to Pharmacy Electronically, [facility], Partial fill upon patient request if [...] Display: History and Physical Hospital Authored Date: [id number] [place], [place] PSYCHIATRIC HISTORY ASSESS EXAM NAME: LORETTA CELESTIN : 89 MR#: [id number] PCP: ADMITTED: 12/20/15 DATE OF SERVICE: 12/20/15 HPI - Hosp Psych H P Chief Complaint [place] [facility] [place] History of Present Illness 24 yo AA Female with known schizophrenia was seen at [facility] for hallucination. Apparently pt has been lived in fci and sent to [facility] for acute exacerbation of her [...] QDAY Haloperidol* (Haldol*) 5 MG PO BID [place] Carbonate SR* (Lithobid*) 300 MG PO QDAY liTHIum Carbonate SR* ([place] Carbonate SR*) 450 MG PO 4PM Discontinued Reported Medications Citalopram* (CeleXA*) 40 MG PO QDAY Benztropine* 0.5 MG PO BID buPROPion SR* 150 MG PO [id number] Trazodone* (Desyrel*) 100 MG PO HS RisperiDONE* [...] 324 MG QDAY 12/20 09 CKD PO [place] Carbonate 300 MG QDAY 12/20 09 AC PO Polyethylene Glycol 17 GM QDAY 12/20 09 CKD PO Benztropine Mesylate 1 MG 0900,1700 12/19 1700 AC PO Docusate Sodium 100 MG 0900,1700 12/19 1700 AC PO Haloperidol 5 MG 0900,12/19 1700 AC PO [place] Carbonate 450 MG PM 12/19 1700 AC [...] fullly ambulartory Care Level Complexity of Care [id number] Comprehensive history, comprehensive examination, medical decision making of low complexity, at least 20 minutes at the bedside, patient's floor/ unit. ESigned by: YAS GARZA MD Date:12/21/15 Time:1633 / NOT FOR REDISCLOSURE WITHOUT PATIENT'S INFORMED CONSENT Admission evaluation note * Event Display: Admit Notes Authored Date: [id number] [place], [place] PSYCHIATRIC ADMISSION NOTE NAME: LORETTA CELESTIN : 89 HOSPITAL #: [id number] MR #: [id number] CHART LOC: PCP: DICTATING: MARIA R Robin MD DATE OF ADMISSION: 12/20/15 DATE OF SERVICE: 12/21/15 CHIEF COMPLAINT: This 23-year-old woman was admitted to [facility] on 12/20/15 on a [...] is living in a fci. Came to [place] with her grandmother in [...] year NAME: LORETTA CELESTIN : 89 HOSP#: [id number] MR#: [id number] CHART LOC: PCP: DICTATING: MARIA R Robin MD PSYCHIATRIC ADMISSION NOTE CONTINUED: unknown. TREATMENT PLAN: Resume outpatient medications, physical exam, collateral contact with community caregivers and social network, safety plan, aftercare plan and observe. 927 T:sn DD:[id number] TD:0745 DT:20151221 TT:0924 [id number] MICHELLE/SHANNON MARIA R Robin MD ESigned by: Date:12/22/15 Time:642 NOT FOR REDISCLOSURE WITHOUT PATIENT'S INFORMED CONSENT Patient Care team information Care Team Personnel Name: Dean Rivas RN Position: S RN Member Role: Primary Care Nurse Name: Jolanta Ace RN Position: [facility] RN Supv Member Role: Primary Care Nurse Name: Fatoumata Stokes DO Position: [facility] Physician - Primary Care Member Role: PCP Address: Address: [address] [place] [address] Adult [facility] [place] [address]- Name: Britt Polanco RN Position: S RN Member Role: Primary Care Nurse Name: Awilda Grider RN Position: S RN Member Role: Primary Care Nurse Name: Meagan Darden RN Position: S RN Member Role: Primary Care Nurse Name: Chintan Leach DO Position: [facility] Renal MD Member Role: Lifetime Consulting Physician Address: Address: [address] [place], [place] [address] [place] [address]- Name: Chandler Ye RN Position: [facility] RN Member Role: Primary Care Nurse Name: Apurva Ji RN Position: [facility] ED RN W/OE and Tasks Member Role: Primary Care Nurse Name: Cordelia Matias RN Position: [facility] AMB Nurse Member Role: Primary Care Nurse Name: Riya Moore RN Position: [facility] RN Member Role: Primary Care Nurse Name: Radha Gutierrez Position: [facility] Outreach Member Role: Primary Care Nurse Name: Keenan Vincent RN Position: [facility] SN RN Member Role: Primary Care Nurse Name: Sasha Patricio RN Position: [facility] RN Member Role: Primary Care Nurse Name: Virgie Angel Position: [facility] RN Member Role: Primary Care Nurse Name: Emma Kaminski RN Position: [facility] RN Member Role: Primary Care Nurse Name: Malu Palomo Position: [facility] RN Member Role: Primary Care Nurse Name: Azeb Gusman RN Position: [facility] RN Member Role: Primary Care Nurse Name: Asher Diaz RN Position: [facility] RN Member Role: Primary Care Nurse Name: Kim Cornell RN Position: [facility] RN Member Role: Primary Care Nurse Name: Meredith Martinez RN Position: [facility] RN Member Role: Primary Care Nurse Name: Anika Gotti RN Position: [facility] RN Member Role: Primary Care Nurse Name: Kvng Tompkins RN Position: [facility] ED RN W/OE and Tasks Member Role: Primary Care Nurse Name: Rafiq Muñoz RN Position: [facility] RN Member Role: Primary Care Nurse Name: Justina Walker RN Position: [facility] RN Member Role: Primary Care Nurse Name: Ivone Hidalgo RN Position: [facility] RN Member Role: Primary Care Nurse Name: Mazin Penn MD Position: [facility] Physician - Behavioral Health Member Role: [employer] Consulting Physician Address: Address: [address] [place] [address] [place] Care Team Related Persons Name: DORITA MCCOLLUM Address: [address] [place] [address] Name: ASIADEEDEESTEW Address: [address] [facility] [address] Name: LISA PALMA Address: home [address] [place] [address]
--- OUTSIDE RECORDS SUMMARY | 2024-06-11 16:53 | XMS_ITS | Continuity of Care Document ---
Author Organization [facility] Address [address] [place] [address]- Care Team Providers Care Benefit Authorizer Name Role Phone Fatoumata Stokes DO Primary Care Physician Encounter [facility] Date(s): 03/22/24 - 04/21/24 [facility] [address] [place], [place] [address] Allergies, Adverse Reactions, Alerts Substance [...] 0 Refills, Maintenance, 02/17/24 9:30:00 EDT, Tablet, [facility], Partial fill upon patient request if [...] Refills, Soft Stop, 04/09/24 12:02:00 EDT, Tablet, [facility], Partial fill upon patient request if [...] 0 Refills, Maintenance, 03/09/24 14:42:00 EDT, Nasal Check, [facility], Partial fill upon patient request if the prescription is for a schedule II opi... Start Date: 03/09/24 Status: Ordered Lidoderm 5% film 1 patch, Topically, Daily, remove patches after 12 hours, # 30 patch, 0 Refills, Maintenance, 03/09/24 14:43:00 EDT, Film, [facility], Partial fill upon patient [...] Replace Required Details, Route to Pharmacy Electronically, [facility], 163, cm, 04/09/24 11:20:00 EDT, Height, [...] 0 Refills, Maintenance, 12/23/23 17:55:00 EDT, ECCapsule, [facility], Partial fill upon patient request if [...] By Mouth, Daily, call the office at [phone] if you do not get a menstrual cycle., # 10 tablet, Refills 0, Tot. Refills 0, Maintenance, 12/21/23 15:20:00 EDT, Route to Pharmacy Electronically, [facility], Partial fill u... Start Date: 12/21/23 Stop Date: 12/31/23 Status: Ordered traZODone 50 mg oral tablet 50 mg, 1, tablet, By Mouth, Daily at bedtime, # 30 tablet, Refills 0, Tot. Refills 0, Maintenance, 07/19/23 13:53:00 EDT, Route to Pharmacy Electronically, [facility], Partial fill upon patient request if the prescription is for a schedule I... Start Date: 07/19/23 Stop Date: 08/18/23 Status: Ordered Vitamin C 250 mg oral tablet See Instructions, 1 tablet By Mouth every other day with iron Daily at 9am, # 45 tablet, 11 Refills, Maintenance, 02/17/24 9:32:00 EDT, [facility], 163, cm, 02/17/24 9:01:00 EDT, Height, 96.5, kg, 02/11/24 1:23:00 EDT, Dry Weight Start Date: 02/17/24 Status: Ordered Vitamin C 250 mg oral tablet 1 tablet, By Mouth, Daily in AM, AT 9AM., # 30 tablet, 0 Refills, Maintenance, 02/02/24 15:05:00 EDT, [facility], 163, cm, 01/24/24 9:01:00 EDT, Height, [...] Display: History and Physical Hospital Authored Date: [id number] [place], [place] PSYCHIATRIC HISTORY ASSESS EXAM NAME: LORETTA CELESTIN : 89 MR#: [id number] PCP: ADMITTED: 12/20/15 DATE OF SERVICE: 12/20/15 HPI - Hosp Psych H P Chief Complaint Pt was sent from [facility] ER here for hallunication History of Present Illness 24 yo AA Female with known schizophrenia was seen at [facility] ER for hallucination. Apparently pt has been lived in [facility] and sent to [facility] for acute exacerbation of her underline schizophrenia. [...] QDAY Haloperidol* (Haldol*) 5 MG PO BID Tyro Carbonate SR* (Lithobid*) 300 MG PO QDAY liTHIum Carbonate SR* (Tyro Carbonate SR*) 450 MG PO 4PM Discontinued Reported Medications Citalopram* (CeleXA*) 40 MG PO QDAY Benztropine* 0.5 MG PO BID buPROPion SR* 150 MG PO [id number] Trazodone* (Desyrel*) 100 MG PO HS RisperiDONE* [...] 324 MG QDAY 12/20 0900 CKD PO Tyro Carbonate 300 MG QDAY 12/20 0900 AC PO Polyethylene Glycol 17 GM QDAY 12/20 0900 CKD PO Benztropine Mesylate 1 MG 0900,1700 12/19 1700 AC PO Docusate Sodium 100 MG 0900,1700 12/19 1700 AC PO Haloperidol 5 MG 0900,1700 12/19 1700 AC PO Tyro Carbonate 450 MG PM 12/19 1700 AC [...] fullly ambulartory Care Level Complexity of Care [id number] Comprehensive history, comprehensive examination, medical decision making of low complexity, at least 20 minutes at the bedside, patient's floor/ unit. ESigned by: YAS GARZA MD Date:12/21/15 Time:1633 / NOT FOR REDISCLOSURE WITHOUT PATIENT'S INFORMED CONSENT Admission evaluation note * Event Display: Admit Notes Authored Date: [id number] [place], [place] PSYCHIATRIC ADMISSION NOTE NAME: LORETTA CELESTIN : 89 HOSPITAL #: [id number] MR #: [id number] CHART LOC: PCP: DICTATING: MARIA R Robin MD DATE OF ADMISSION: 12/20/15 DATE OF SERVICE: 12/21/15 CHIEF COMPLAINT: This 23-year-old woman was admitted to [facility] on 12/20/15 on [...] year NAME: LORETTA CELESTIN : 89 HOSP#: [id number] MR#: [id number] CHART LOC: PCP: DICTATING: MARIA R Robin MD PSYCHIATRIC ADMISSION NOTE CONTINUED: unknown. TREATMENT PLAN: Resume outpatient medications, physical exam, collateral contact with community caregivers and social network, safety plan, aftercare plan and observe. 927 T:sn DD:[id number] TD:0745 DT:[id number] TT:0924 JOB:[id number] MICHELLE/SHANNON MARIA R Robin MD ESigned by: Date:12/22/15 Time:642 NOT FOR REDISCLOSURE WITHOUT PATIENT'S INFORMED CONSENT Patient Care team information Care Team Personnel Name: Rob ROTHMAN, Dean Position: [facility] RN Member Role: Primary Care Nurse Name: Jolanta Ace RN Position: [facility] RN Supv Member Role: Primary Care Nurse Name: Fatoumata Stokes DO Position: [facility] Physician - Primary Care Member Role: PCP Address: Address: [address] [place] [address] [facility] [place] [address]- [place] Name: Awilda Grider RN Position: [facility] RN Member Role: Primary Care Nurse Name: Meagan Darden RN Position: [facility] RN Member Role: Primary Care Nurse Name: Chintan Leach DO Position: [facility] Renal MD Member Role: Lifetime Consulting Physician Address: Address: [address] [place] [address] [address] [facility] [place] [address]- [place] Name: Chandler Ye RN [facility]: [facility] Tompkins RN Position: [facility] MARISABEL RN W/OE and Tasks Member Role: Primary Care Nurse Name: Rafiq Muñoz RN Position: [facility] RN Member Role: Primary Care Nurse Name: Justina Walker RN Position: [facility] RN Member Role: Primary Care Nurse Name: Gwen ROTHMAN, Ivone Position: [facility] RN Member Role: Primary Care Nurse Name: Mazin Penn MD Position: [facility] Physician - Behavioral Health Member Role: Lifetime Consulting Physician Address: Address: [address] [place] [id number]- Care Team Related Persons Name: DORITA MCCOLLUM Address: home [address] [place] [address] Name: STEW PECK Address: home [address] [place] [address] Name: LISA PALMA Address: home [address] [place] [id number]
--- OUTSIDE RECORDS SUMMARY | 2024-06-11 16:53 | XMS_ITS | Continuity of Care Document ---
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 09/16/2010 Given influenza virus vaccine, inactivated 07/31/2010 Given tetanus/diphtheria/pertussis, acel(Tdap) 07/31/2010 Given influ virus vac, H1N1, live(oldterm) 10/03/2009 Given Human Papillomavirus Vaccine 10/03/2009 Given influenza virus vaccine, inactivated 10/03/2009 Recorded Human Papillomavirus Vaccine 07/15/2009 Given Meningococcal Conjugate Vaccine 11/08/2006 Given tetanus-diphtheria toxoids (Td) 01/14/2004 Given Hepatitis B Vaccine (old term) 01/14/2004 Given Hepatitis B Vaccine (old term) 08/27/2003 Given Hepatitis B Vaccine (old term) 07/23/2003 Given Miscellaneous Vaccine 09/26/1996 Given Comments : Clinical Varicella at age 5 Measles/Mumps/Rubella Virus Vaccine 02/23/1995 Given Diphth/Pertussis,Acel/Tetanus (oldterm) 02/01/1995 Given Measles/Mumps/Rubella Virus Vaccine 08/18/1994 Given Poliovirus Vaccine, Inactivated 06/15/1994 Given Diphth/Pertussis,Acel/Tetanus (oldterm) 06/15/1994 Given Poliovirus Vaccine, Inactivated 03/17/1994 Given Diphth/Pertussis,Acel/Tetanus (oldterm) 03/17/1994 Given Measles/Mumps/Rubella Virus Vaccine 05/06/1992 Given Diphth/Pertussis,Acel/Tetanus (oldterm) 03/15/1991 Given Poliovirus Vaccine, Inactivated 01/06/1991 Given Diphth/Pertussis,Acel/Tetanus (oldterm) 01/06/1991 Given Note * Marce Lopez DO: PERFORM, SIGN, VERIFY Event Display: Patient Education Handout Authored Date: [id number] Patient Care team information Care Team Personnel Name: Dean Rivas RN Position: [facility] RN Member Role: Primary Care Nurse Name: Jolanta Ace RN Position: [facility] RN Supv Member Role: Primary Care Nurse Name: Fatoumata Stokes DO Position: [facility] Physician - Primary Care Member Role: PCP Address: Address: [address] [place] [address] Adult [facility] [place] [address]- Name: Awilda Grider RN Position: [facility] RN Member Role: Primary Care Nurse Name: Meagan Darden RN Position: [facility] RN Member Role: Primary Care Nurse Name: Chintan Leach DO Position: [facility] Renal MD Member Role: Lifetime Consulting Physician Address: Address: [address] [place] [address] [address] [facility] [place] [address]- Name: Chandler Ye RN [facility] Role: Lifetime Consulting Physician Address: Address: [address] [place] [address]- [place] Care Team Related Persons Name: VIRIDIANA MCCOLLUMOPATRA Address: [address] [place] [address] Name: STEW PECK Address: [address] [place] [address] Name: LISA PALMA Address: [address] [place] [address]
--- OUTSIDE RECORDS SUMMARY | 2024-06-11 16:53 | XMS_ITS | Continuity of Care Document ---
Author Organization [facility] ter Address [address] [place] [address]- Care Team Providers Care Digital Publishing Specialist Name Role Phone Fatoumata Stokes DO Primary Care Physician Encounter [facility] Date(s): 12/04/23 - 12/05/[address] [address]- Encounter Diagnosis Superficial laceration(Final) - 12/05/23 Intentional self-harm by sharp glass(Final) - 12/05/23 Schizoaffective disorder(Final) - 12/05/23 Hallucination(Final) - 12/05/23 Discharge Disposition: A-D/C Home Attending Physician: Nova Capone MD Admitting Physician: Nova Capone MD Referring Physician: Not on Staff, Referring [...] 0 Refills, Maintenance, 07/05/23 0:27:00 EDT, Nasal [place], Partial fill upon patient request if the [...] Maintenance,07/19/23 13:53:00 EDT, Route to Pharmacy Electronically, [facility], Partial fill upon patient request if the prescription is for a schedule... Start Date: 07/19/23 Stop Date: 08/18/23 Status: Ordered traZODone 50 mg oral tablet 50 mg, 1, tablet, By Mouth, Daily at bedtime, # 30 tablet, Refills 0, Tot. Refills 0, Maintenance, 07/19/23 13:53:00 EDT, Route to Pharmacy Electronically, [facility], Partial fill upon patient request if [...] 07/19/23 13:50:00 EDT, Route to Pharmacy Electronically, [facility], Partial fill upon patient request if [...] 3 Oxygen Saturation [94-100 %] 100 % (12/05/23 7:34 AM) 100 % (12/05/23 5:43 AM) 99 % (12/04/23 9:57 PM) Pulse Rate [55-90 bpm] 68 bpm (12/05/23 7:34 AM) 70 bpm (12/05/23 5:43 AM) 87 bpm (12/04/23 9:57 PM) Blood Pressure [90-138/55-84 mm Hg] 107/75mm Hg (12/05/23 7:34 AM) 101/74mm Hg (12/05/23 5:43 AM) 143/95mm Hg *H* (12/04/23 9:57 PM) Respiratory Rate [16-30 br/min] 16 br/min (12/05/23 7:34 AM) 17 br/min (12/04/23 9:57 PM) Temperature [96.8-100.4 DegF] 97.7 DegF (12/05/23 5:43 AM) 98.1 DegF (12/04/23 9:57 PM) Mode of Delivery (Oxygen) Room air (12/05/23 7:34 AM) Room air (12/05/23 5:43 AM) Room air (12/04/23 9:57 PM) Blood pressure sites Arm, right (12/05/23 5:43 AM) Arm, right (12/04/23 9:57 PM) Temperature Route Oral (12/05/23 5:43 AM) Oral (12/04/23 9:57 PM) Social History Social History Type Response Smoking Status 5-9 cigarettes (betw een 1/4 to 1/2 pack)/day in last 30 days; Interested in cessation: No; Patient wants NRT during admission Yes; Other: will accept nicotine gum; entered on: 07/14/23 Sex History and physical note * Event Display: History and Physical Hospital Authored Date: [id number] [place], [place] PSYCHIATRIC HISTORY ASSESS EXAM NAME: LORETTA CELESTIN : 89 MR#: [id number] PCP: ADMITTED: 12/20/15 DATE OF SERVICE: 12/20/15 HPI - Hosp Psych H P Chief Complaint Pt was sent from [facility] ER here for hallunication History of Present Illness 24 yo AA Female with known schizophrenia was seen at [facility] ER for hallucination. Apparently pt has been lived [facility] QDAY Haloperidol* (Haldol*) 5 MG PO BID [place] Carbonate SR* (Lithobid*) 300 MG PO QDAY liTHIum Carbonate SR* ([place] Carbonate SR*) 450 MG PO 4PM Discontinued Reported Medications Citalopram* (CeleXA*) 40 MG PO QDAY Benztropine* 0.5 MG PO BID buPROPion SR* 150 MG PO [id number] Trazodone* (Desyrel*) 100 MG PO HS RisperiDONE* [...] 324 MG QDAY 12/20 899 CKD PO [place] Carbonate 300 MG QDAY 12/20 899 AC PO Polyethylene Glycol 17 GM QDAY 12/20 899 CKD PO Benztropine Mesylate 1 MG 09,12/19 1700 AC PO Docusate Sodium 100 MG 0900,12/19 1700 AC PO Haloperidol 5 MG 09,12/19 1700 AC PO [place] Carbonate 450 MG PM 12/19 1700 AC [...] fullly ambulartory Care Level Complexity of Care [id number] Comprehensive history, comprehensive examination, medical decision making of low complexity, at least 20 minutes at the bedside, patient's floor/ unit. ESigned by: YAS GARZA MD Date:12/21/15 Time:1633 / NOT FOR REDISCLOSURE WITHOUT PATIENT'S INFORMED CONSENT Admission evaluation note * Event Display: Admit Notes Authored Date: [id number] [place], [place] PSYCHIATRIC ADMISSION NOTE NAME: LORETTA CELESTIN : 89 HOSPITAL #: [id number] MR #: [id number] CHART LOC: PCP: DICTATING: MARIA R Robin MD DATE OF ADMISSION: 12/20/15 DATE OF SERVICE: 12/21/15 CHIEF COMPLAINT: This 23-year-old woman was admitted to [facility] on 12/20/15 on a Conditional Voluntary [...] year NAME: LORETTA CELESTIN : 89 HOSP#: [id number] MR#: [id number] CHART LOC: PCP: DICTATING: MARIA R Robin MD PSYCHIATRIC ADMISSION NOTE CONTINUED: unknown. TREATMENT PLAN: Resume outpatient medications, physical exam, collateral contact with community caregivers and social network, safety plan, aftercare plan and observe. 927 T:sn DD:[id number] TD:0745 DT:20151221 TT:0924 JOB:[id number] MICHELLE/SHANNON MARIA R Robin MD ESigned by: Date:12/22/15 Time:642 NOT FOR REDISCLOSURE WITHOUT PATIENT'S INFORMED CONSENT Patient Care team information Care Team Personnel Name: Dean Rivas RN Position: [facility] RN Member Role: Primary Care Nurse Name: Jolanta Ace RN Position: [facility] RN Supv Member Role: Primary Care Nurse Name: Fatoumata Stokes DO Position: [facility] Physician - Primary Care Member Role: PCP Address: Address: [address] [place] [address] Adult [place] [address]- Name: Awilda Grider RN Position: [facility] RN Member Role: Primary Care Nurse Name: Meagan Darden RN Position: [facility] RN Member Role: Primary Care Nurse Name: Chintan Leach DO Position: [facility] Renal MD Member Role: Lifetime Consulting Physician Address: Address: [address] [place] [address] [address] [facility] [place], [place] [address] Name: Chandler Ye RN Position: [facility] RN Member Role: Primary Care Nurse Name: Apurva Ji RN Position: [facility] ED RN W/OE and Tasks Member Role: Primary Care Nurse Name: Cordelia Matias RN Position: [facility] AMB Nurse Member Role: Primary Care Nurse Name: Riya Moore RN Position: [facility] RN Member Role: Primary Care Nurse Name: Radha Gutierrez Position: [facility] Outreach Member Role: Primary Care Nurse Name: Keenan Vincent RN Position: [facility] SN RN Member Role: Primary Care Nurse Name: Sasha Patricio RN Position: [facility] RN Member Role: Primary Care Nurse Name: Virgie Angel Position: [facility] RN Member Role: Primary Care Nurse Name: Malu Palomo Position: [facility] RN Member Role: Primary Care Nurse Name: Azeb Gusman RN Position: [facility] RN Member Role: Primary Care Nurse Name: Asher Diaz RN Position: [facility] RN Member Role: Primary Care Nurse Name: Kim Cornell RN Position: [facility] RN Member Role: Primary Care Nurse Name: Meredith Martinez RN Position: [facility] RN Member Role: Primary Care Nurse Name: Anika Gotti RN Position: [facility] RN Member Role: Primary Care Nurse Name: Kvng Tompkins RN Position: [facility] ED RN W/OE and Tasks Member Role: Primary Care Nurse Name: Rafiq Muñoz RN Position: [facility] RN Member Role: Primary Care Nurse Name: Justina Walker RN Position: [facility] RN Member Role: Primary Care Nurse Name: Ivone Hidalgo RN Position: [facility] RN Member Role: Primary Care Nurse Name: Mazin Penn MD Position: [facility] Physician - Behavioral Health Member Role: Lifetime Consulting Physician Address: Address: [address] [place] [address]- [place] Care Team Related Persons Name: DORITA MCCOLLUM Address: [address] [place] [address] Name: STEW PECK Address: [address] [facility] [address] Name: LISA PALMA Address: [address] [place] [address]
--- OUTSIDE RECORDS SUMMARY | 2024-06-11 16:53 | XMS_ITS | Continuity of Care Document ---
Author Organization [facility] ter Address [address] [place] [place] [address]- Care Team Providers Care Operational Intelligence Analyst Name Role Phone Fatoumata Stokes DO Primary Care Physician ( [phone] Encounter [facility] Date(s): 03/26/24 - 03/26/[address] [address]- Discharge Disposition: A-D/C Home Attending Physician: Janine Madrigal DO Admitting Physician: Janine Madrigal DO Referring Physician: Not on Staff, Referring [...] Given tetanus/diphtheria/pertussis, acel(Tdap) 07/30/18 Given tetanus/diphtheria/pertussis, acel(Tdap) 3/6/16 Given tetanus/diphtheria/pertussis, acel(Tdap) 10/20/14 Given tetanus/diphtheria/pertussis, acel(Tdap) [...] 0 Refills, Maintenance, 02/17/24 9:30:00 EDT, Tablet, [facility], Partial fill upon patient request if [...] Refills, Soft Stop, 12/21/23 15:20:00 EDT, Tablet, [facility], Partial fill upon patient request if [...] 0 Refills, Maintenance, 03/09/24 14:42:00 EDT, Nasal [place], [facility], Partial fill upon patient request if the prescription is for a schedule II opi... Start Date: 03/09/24 Status: Ordered Lidoderm 5% film 1 patch, Topically, Daily, remove patches after 12 hours, # 30 patch, 0 Refills, Maintenance, 03/09/24 14:43:00 EDT, Film, [facility], Partial fill upon patient request if [...] 02/13/24 16:31:00 EDT, Route to Pharmacy Electronically, [facility], 163, cm, 02/11/24 1:23:00 EDT, Height, [...] 0 Refills, Maintenance, 12/23/23 17:55:00 EDT, ECCapsule, [facility], Partial fill upon patient request if [...] Maintenance,07/19/23 13:53:00 EDT, Route to Pharmacy Electronically, [facility], Partial fill upon patient request if the prescription is for a schedule... Start Date: 07/19/23 Stop Date: 08/18/23 Status: Ordered Provera 10 mg oral tablet 10 mg, 1, tablet, By Mouth, Daily, call the office at [phone] if you do not get a menstrual [...] tablet, 11 Refills, Maintenance, 02/17/24 9:32:00 EDT, [facility], 163, cm, 02/17/24 9:01:00 EDT, Height, 96.5, kg, 02/11/24 1:23:00 EDT, Dry Weight Start Date: 02/17/24 Status: Ordered Vitamin C 250 mg oral tablet 1 tablet, By Mouth, Daily in AM, AT 9AM., # 30 tablet, 0 Refills, Maintenance, 02/02/24 15:05:00 EDT, [facility], 163, cm, 01/24/24 9:01:00 EDT, Height, 100.2, kg, 10/17/23 16:02:00 EST, Dry Weight Start Date: 02/02/24 Status: Ordered ZyPREXA 10 mg oral tablet 10 mg, 1, tablet, By Mouth, Daily at bedtime, # 30 tablet, Refills 0, Tot. Refills 0, Maintenance, 07/19/23 13:50:00 EDT, Route to Pharmacy [facility], [facility] [...] 3 Oxygen Saturation [94-100 %] 100 % (03/26/24 11:36 AM) 98 % (03/26/24 7:30 AM) 100 % (03/26/24 6:59 AM) Pulse Rate [55-90 bpm] 84 bpm (03/26/24 11:36 AM) 65 bpm (03/26/24 7:30 AM) 61 bpm (03/26/24 6:59 AM) Blood Pressure [90-138/55-84 mm Hg] 122/88mm Hg (03/26/24 11:36 AM) 122/84mm Hg (03/26/24 7:30 AM) 109/62mm Hg (03/26/24 6:59 AM) Respiratory Rate [16-30 br/min] 18 br/min (03/26/24 11:36 AM) 17 br/min (03/26/24 7:30 AM) 16 br/min (03/26/24 6:59 AM) Temperature [96.8-100.4 DegF] 98.4 DegF (03/26/24 11:36 AM) 98.4 DegF (03/26/24 7:30 AM) 98.6 DegF (03/26/24 12:34 AM) Mode of Delivery (Oxygen) Room air (03/26/24 11:36 AM) Room air (03/26/24 7:30 AM) Room air (03/26/24 6:59 AM) Temperature Route Oral (7/1/24 12:34 AM) Social History Social History Type Response Smoking Status 5-9 cigarettes (betw een 1/4 to 1/2 pack)/day in last 30 days; Interested in cessation: No; Patient wants NRT during admission Yes; Other: will accept nicotine gum; entered on: 07/14/23 Sex History and physical note * Event Display: History and Physical Hospital Authored Date: [id number] [place], [place] PSYCHIATRIC HISTORY ASSESS EXAM NAME: LORETTA CELESTIN : 89 MR#: [id number] PCP: ADMITTED: 12/20/15 DATE OF SERVICE: 12/20/15 HPI - Hosp Psych H P Chief Complaint Pt was sent from [facility] ER here for hallunication History of Present Illness 24 yo AA Female with known schizophrenia was seen at [facility] ER for hallucination. [facility] and [facility] to [facility] [...] QDAY Haloperidol* (Haldol*) 5 MG PO BID [place] Carbonate SR* (Lithobid*) 300 MG PO QDAY liTHIum Carbonate SR* ([place] Carbonate SR*) 450 MG PO 4PM Discontinued Reported Medications Citalopram* (CeleXA*) 40 MG PO QDAY Benztropine* 0.5 MG PO BID buPROPion SR* 150 MG PO [id number] Trazodone* (Desyrel*) 100 MG PO HS RisperiDONE* [...] Ox 99 12/19 1414 B/P 122/79 12/19 141 Temp 97.3 12/19 1414 Pulse 104 12/19 1414 Resp 16 12/19 1414 Current Medications Current Medications Sig/Jessica Start time Last Medication Dose Route/Reason Stop Time Status Admin Ferrous Sulfate 324 MG QDAY 12/20 09 CKD PO [place] Carbonate 300 MG QDAY 12/20 09 AC PO Polyethylene Glycol 17 GM QDAY 12/20 09 CKD PO Benztropine Mesylate 1 MG 0900,1700 12/19 1700 AC PO Docusate Sodium 100 MG 0900,1700 12/19 1700 AC PO Haloperidol 5 MG 0900,1700 12/19 1700 AC PO [place] Carbonate 450 MG PM 12/19 1700 AC [...] fullly ambulartory Care Level Complexity of Care [id number] Comprehensive history, comprehensive examination, medical decision making of low complexity, at least 20 minutes at the bedside, patient's floor/ unit. ESigned by: YAS GARZA MD Date:12/21/15 Time:1633 / NOT FOR REDISCLOSURE WITHOUT PATIENT'S INFORMED CONSENT Admission evaluation note * Event Display: Admit Notes Authored Date: [id number] [place], [place] PSYCHIATRIC ADMISSION NOTE NAME: LORETTA CELESTIN : 89 HOSPITAL #: [id number] MR #: [id number] CHART LOC: PCP: DICTATING: MARIA R Robin MD DATE OF ADMISSION: 12/20/15 DATE OF SERVICE: 12/21/15 CHIEF COMPLAINT: This 23-year-old woman was admitted to [facility] on 12/20/15 on a Conditional Voluntary [...] is living in a penitentiary. Came to [place] with her grandmother in [...] year NAME: LORETTA CELESTIN : 89 HOSP#: [id number] MR#: [id number] CHART LOC: PCP: DICTATING: MARIA R Robin MD PSYCHIATRIC ADMISSION NOTE CONTINUED: unknown. TREATMENT PLAN: Resume outpatient medications, physical exam, collateral contact with community caregivers and social network, safety plan, aftercare plan and observe. 927 T:sn DD:20151221 TD:0745 DT:20151221 TT:09 [id number] MICHELLE/SHANNON MARIA R Robin MD ESigned by: Date:12/22/15 Time:06 NOT FOR REDISCLOSURE WITHOUT PATIENT'S INFORMED CONSENT EKG study * Event Display: ECG 12-Lead Authored Date: Please click on pdf link to open report * Event Display: ECG 12-Lead Authored Date: Ventricular Rate: 73 BPM Atrial Rate: 73 BPM P-R Interval: 166 ms QRS Duration: 84 ms Q-T Interval: 394 ms QTC Calculation(Bazett): 434 ms P Frederick: 44 degrees R Frederick: 40 degrees T Frederick: 27 degrees Normal sinus rhythm Normal ECG When compared with ECG of 20-FEB-2024 10:51, No significant change was found Confirmed by PJ AVALOS MD ([id number]) on 03/26/2024 11:04:44 AM [place]: PJ AVALOS MD Patient Care team information Care Team Personnel Name: Dean Rivas RN Position: [facility] RN Member Role: Primary Care Nurse Name: Jolanta Ace RN Position: [facility] RN Supv Member Role: Primary Care Nurse Name: Fatoumata Stokes DO Position: S Physician - Primary Care Member Role: PCP Address: Address: [address] [place] [address] Adult & [place] [address]- Name: Awilda Grider RN Position: [facility] RN Member Role: Primary Care Nurse Name: Meagan Darden RN Position: [facility] RN Member Role: Primary Care Nurse Name: Chintan Leach DO Position: [facility] Renal MD Member Role: Lifetime Consulting Physician Address: Address: [address] [place], [place] [address] [place] [address]- Name: Chandler Ye RN Position: [facility] RN Member Role: Primary Care Nurse Name: Apurva Ji RN Position: [facility] ED RN W/OE and Tasks Member Role: Primary Care Nurse Name: Cordelia Matias RN Position: [facility] AMB Nurse Member Role: Primary Care Nurse Name: Riya Moore RN Position: [facility] RN Member Role: Primary Care Nurse Name: Radha Gutierrez Position: [facility] Outreach Member Role: Primary Care Nurse Name: Keenan Vincent RN Position: [facility] SN RN Member Role: Primary Care Nurse Name: Sasha Patricio RN Position: [facility] RN Member Role: Primary Care Nurse Name: Virgie Angel RN Position: [facility] RN Member Role: Primary Care Nurse Name: Malu Palomo Position: [facility] RN Member Role: Primary Care Nurse Name: Azeb Gusman RN Position: [facility] RN Member Role: Primary Care Nurse Name: Kim Cornell RN Position: [facility] RN Member Role: Primary Care Nurse Name: Meredith Martinez RN Position: [facility] RN Member Role: Primary Care Nurse Name: Anika Gotti RN Position: [facility] RN Member Role: Primary Care Nurse Name: Kvng Tompkins RN Position: [facility] ED RN W/OE and Tasks Member Role: Primary Care Nurse Name: Rafiq Muñoz RN Position: [facility] RN Member Role: Primary Care Nurse Name: Justina Walker RN Position: [facility] RN Member Role: Primary Care Nurse Name: Ivone Hidalgo RN Position: [facility] RN Member Role: Primary Care Nurse Name: Mazin Penn MD Position: [facility] Physician - Behavioral Health Member Role: Lifetime Consulting Physician Address: Address: [address] [place] [address]- [place] Care Team Related Persons Name: DORITA MCCOLLUM Address: [address] [place] [address] Name: STEW PECK Address: [address] [place] [address] Name: LISA PALMA Address: [address] [place] [address]
--- OUTSIDE RECORDS SUMMARY | 2024-06-11 16:53 | XMS_ITS | Continuity of Care Document ---
Author Organization [facility] Address [address] [place] [address]- Care Team Providers Care Business Unit Leader Name Role Phone Fatoumata Stokes DO Primary Care Physician [facility]): 12/27/23 - 01/26/24 [facility] [address] [place] [address]- [place] Allergies, Adverse Reactions, Alerts Substance Reaction Severity [...] Refills, Soft Stop, 12/21/23 15:20:00 EDT, Tablet, [facility], Partial fill upon patient request if [...] 0 Refills, Maintenance, 07/05/23 0:27:00 EDT, Nasal [place], Partial fill upon patient request if the [...] capsule, 0 Refills, Maintenance, 12/23/23 17:55:00 EDT, [facility], Partial fill upon patient request if [...] By Mouth, Daily, call the office at [phone] if you do not get a menstrual cycle., # 10 tablet, Refills 0, Tot. Refills 0, Maintenance, 12/21/23 15:20:00 EDT, Route to Pharmacy Electronically, [facility], Partial fill u... Start Date: [...] 9AM., # 30 tablet, 0 Refills, Maintenance, 01/26/24 9:59:00 EDT, [facility], 163, cm, 01/24/24 9:01:00 EDT, Height, 100.2, kg, 10/17/23 16:02:00 EST, DryWeight Start Date: 01/26/24 Status: Ordered ZyPREXA 10 mg oral tablet [...] Display: History and Physical Hospital Authored Date: [id number] [place], [place] PSYCHIATRIC HISTORY ASSESS EXAM NAME: LORETTA CELESTIN : [birth year] MR#: [id number] PCP: ADMITTED: 12/20/15 DATE OF SERVICE: 12/20/15 HPI - Hosp Psych H P Chief Complaint Pt was sent from [facility] ER here for hallunication History of Present Illness 24 yo AA Female with known schizophrenia was seen at [facility] ER for hallucination. Apparently pt has been lived in half-way and sent to [facility] for [...] QDAY Haloperidol* (Haldol*) 5 MG PO BID [place] Carbonate SR* (Lithobid*) 300 MG PO QDAY liTHIum Carbonate SR* ([place] Carbonate SR*) 450 MG PO 4PM Discontinued Reported Medications Citalopram* (CeleXA*) 40 MG PO QDAY Benztropine* 0.5 MG PO BID buPROPion SR* 150 MG PO [id number] Trazodone* (Desyrel*) 100 MG PO HS RisperiDONE* [...] 324 MG QDAY 12/20 0900 CKD PO [place] Carbonate 300 MG QDAY 12/20 0900 AC PO Polyethylene Glycol 17 GM QDAY 12/20 0900 CKD PO Benztropine Mesylate 1 MG 0900,1700 12/19 1700 AC PO Docusate Sodium 100 MG 0900,12/19 1700 AC PO Haloperidol 5 MG 0900,12/19 1700 AC PO [place] Carbonate 450 MG PM 12/19 1700 AC [...] fullly ambulartory Care Level Complexity of Care C55757 Comprehensive history, comprehensive examination, medical decision making of low complexity, at least 20 minutes at the bedside, patient's floor/ unit. ESigned by: YAS GRAZA MD Date:12/21/15 Time:1633 / NOT FOR REDISCLOSURE WITHOUT PATIENT'S INFORMED CONSENT Admission evaluation note * Event Display: Admit Notes Authored Date: [place], [place] PSYCHIATRIC ADMISSION NOTE NAME: LORETTA CELESTIN : 90 HOSPITAL #: [id number] MR #: [id number] CHART LOC: PCP: DICTATING: MARIA R Robin MD DATE OF ADMISSION: 12/20/15 DATE OF SERVICE: 12/21/15 CHIEF COMPLAINT: This 23-year-old woman was admitted to [facility] on 12/20/15 on a Conditional [...] is living in a half-way. Came to [place] with her grandmother in 2013, was very [...] year NAME: LORETTA CELESTIN : 89 HOSP#: [id number] MR#: [id number] CHART LOC: PCP: DICTATING: MARIA R Robin MD PSYCHIATRIC ADMISSION NOTE CONTINUED: unknown. TREATMENT PLAN: Resume outpatient medications, physical exam, collateral contact with community caregivers and social network, safety plan, aftercare plan and observe. 927 T: DD:[id number] TD:0745 DT:[id number] TT:0924 JOB:[id number] TORIE MARIA R Robin MD ESigned by: [...] Primary Care Member Role: PCP Address: Address: [address] [place] [address] Adult [place] [address]- Name: Awilda Grider RN Position: [facility] RN Member Role: Primary Care Nurse Name: Meagan Darden RN Position: [facility] RN Member Role: Primary Care Nurse Name: Chintan Leach DO Position: [facility] Renal MD Member Role: Lifetime Consulting Physician Address: Address: [address] [place], [place] [address] [place] [address]- Name: Chandler Ye RN Position: [facility] RN [...] Member Role: Lifetime Consulting Physician Address: Address: [address] [place] [address]- [place] Care Team Related Persons Name: MICK MCCOLLUMTRA Address: [address] [place] [address] Name: STEW PECK Address: home [address] [place] [address] Name: LISA PALMA Address: [address] [place] [address]
--- OUTSIDE RECORDS SUMMARY | 2024-06-11 16:53 | XMS_ITS | Continuity of Care Document ---
Author Organization [facility] Address [address] [place] [address]- Care Team Providers Care Waist Fitter Name Role Phone Fatoumata Stokes DO Primary Care Physician ( [phone] [facility] 02/21/24 - 03/22/24 [facility] [address] [place], [place] [address] Allergies, Adverse Reactions, Alerts Substance [...] 0 Refills, Maintenance, 02/17/24 9:30:00 EDT, Tablet, [facility], Partial fill upon patient request if [...] Refills, Soft Stop, 12/21/23 15:20:00 EDT, Tablet, [facility], Partial fill upon patient request if [...] 0 Refills, Maintenance, 03/09/24 14:42:00 EDT, Nasal [place], [facility], Partial fill upon patient [...] 02/13/24 16:31:00 EDT, Route to Pharmacy Electronically, [facility], 163, cm, 02/11/24 1:23:00 EDT, Height, [...] 0 Refills, Maintenance, 12/23/23 17:55:00 EDT, ECCapsule, [facility], Partial fill upon patient request if [...] By Mouth, Daily, call the office at [phone] if you do not get a menstrual cycle., # 10 tablet, Refills 0, Tot. Refills 0, Maintenance, 12/21/23 15:20:00 EDT, Route to Pharmacy Electronically, [facility], Partial fill u... Start Date: 12/21/23 Stop Date: 12/31/23 Status: Ordered traZODone 50 mg oral tablet 50 mg, 1, tablet, By Mouth, Daily at bedtime, # 30 tablet, Refills 0, Tot. Refills 0, Maintenance, 07/19/23 13:53:00 EDT, Route to Pharmacy Electronically, [facility], Partial fill upon patient request if the prescription is for a schedule I... Start Date: 07/19/23 Stop Date: 08/18/23 Status: Ordered Vitamin C 250 mg oral tablet See Instructions, 1 tablet By Mouth every other day with iron Daily at 9am, # 45 tablet, 11 Refills, Maintenance, 02/17/24 9:32:00 EDT, [facility], 163, cm, 02/17/24 9:01:00 EDT, Height, [...] Display: History and Physical Hospital Authored Date: [id number] [place], [place] PSYCHIATRIC HISTORY ASSESS EXAM NAME: LORETTA CELESTIN : [birth year] MR#: [id number] PCP: ADMITTED: 12/20/15 DATE OF SERVICE: 12/20/15 HPI - Hosp Psych H P Chief Complaint Pt was sent from [facility] ER here for hallunication History of Present Illness 24 yo AA Female with known schizophrenia was seen at [facility] for hallucination. Apparently pt has been lived in fpc [facility] [...] QDAY Haloperidol* (Haldol*) 5 MG PO BID [place] Carbonate SR* (Lithobid*) 300 MG PO QDAY liTHIum Carbonate SR* ([place] Carbonate SR*) 450 MG PO 4PM Discontinued Reported Medications Citalopram* (CeleXA*) 40 MG PO QDAY Benztropine* 0.5 MG PO BID buPROPion SR* 150 MG PO [id number] Trazodone* (Desyrel*) 100 MG PO HS RisperiDONE* [...] 324 MG QDAY 12/20 0900 CKD PO [place] Carbonate 300 MG QDAY 12/20 0900 AC PO Polyethylene Glycol 17 GM QDAY 12/20 0900 CKD PO Benztropine Mesylate 1 MG 0900,1700 12/19 1700 AC PO Docusate Sodium 100 MG 0900,1700 12/19 1700 AC PO Haloperidol 5 MG 0900,1700 12/19 1700 AC PO [place] Carbonate 450 MG PM 12/19 1700 AC [...] fullly ambulartory Care Level Complexity of Care X16628 Comprehensive history, comprehensive examination, medical decision making of low complexity, at least 20 minutes at the bedside, patient's floor/ unit. ESigned by: YAS GARZA MD Date:12/21/15 Time:1633 / NOT FOR REDISCLOSURE WITHOUT PATIENT'S INFORMED CONSENT Admission evaluation note * Event Display: Admit Notes Authored Date: [id number] [place], [place] PSYCHIATRIC ADMISSION NOTE NAME: LORETTA CELESTIN : 89 HOSPITAL #: [id number] MR #: [id number] CHART LOC: PCP: DICTATING: MARIA R Robin MD DATE OF ADMISSION: 12/20/15 DATE OF SERVICE: 12/21/15 CHIEF COMPLAINT: This 23-year-old woman was admitted to [facility] on 12/20/15 on a Conditional Voluntary [...] is living in a fpc. Came to [place] with her grandmother in [...] year NAME: LORETTA CELESTIN : [birth year] HOSP#: [id number] MR#: [id number] CHART LOC: PCP: DICTATING: MARIA R Robin MD PSYCHIATRIC ADMISSION NOTE CONTINUED: unknown. TREATMENT PLAN: Resume outpatient medications, physical exam, collateral contact with community caregivers and social network, safety plan, aftercare plan and observe. 927 T:sn DD:20151221 TD:0745 DT:20151221 TT:09 JOB:[id number] TORIE MARIA R Robin MD ESigned by: Date:12/22/15 Time:642 NOT FOR REDISCLOSURE WITHOUT PATIENT'S INFORMED CONSENT Patient Care team information Care Team Personnel Name: Dean Rivas RN Position: [facility] RN Member Role: Primary Care Nurse Name: Jolanta Ace RN Position: [facility] RN Supv Member Role: Primary Care Nurse Name: Fatoumata Stokes DO Position: [facility] Physician - Primary Care Member Role: PCP Address: Address: [address] [place] [address] Adult [place] [address]- [place] Name: Awilda Grider RN Position: [facility] RN Member Role: Primary Care Nurse Name: Meagan Darden RN Position: [facility] RN Member Role: Primary Care Nurse Name: Chintan Leach DO Position: [facility] Renal MD Member Role: Lifetime Consulting Physician Address: Address: [address] [place] [address] [address] [facility] [place] [address]- Name: Chandler Ye RN [facility] Care Nurse Name: Virgie Angel RN Position: [facility] [...] Care Nurse Name: Kvng Tompkins RN Position: [facility] [...] Role: Lifetime Consulting Physician Address: Address: [address] [place] [address]- [place] Care Team Related Persons Name: DORITA MCCOLLUM Address: [address] [place] [address] Name: STEW PECK Address: home [address] [place] [address] Name: LISA PALMA Address: [address] [place] [address]
--- OUTSIDE RECORDS SUMMARY | 2024-06-11 16:54 | XMS_ITS | Continuity of Care Document ---
Author Organization [facility] Address [address] [place] [address]- Care Team Providers Care Corporate Consultant Name Role Phone Fatoumata Stokes DO Primary Care Physician [facility] 11/29/23 - 12/29/23 [facility] [address] [place], [place] [address] Allergies, Adverse Reactions, Alerts Substance [...] Refills, Soft Stop, 12/21/23 15:20:00 EDT, Tablet, [facility], Partial fill upon patient request if [...] 0 Refills, Maintenance, 07/05/23 0:27:00 EDT, Nasal [place], Partial fill upon patient request if the [...] 0 Refills, Maintenance, 12/23/23 17:55:00 EDT, ECCapsule, [facility], Partial fill upon patient request if [...] By Mouth, Daily, call the office at [phone] if you do not get a menstrual [...] Display: History and Physical Hospital Authored Date: [id number] [place], [place] PSYCHIATRIC HISTORY ASSESS EXAM NAME: LORETTA CELESTIN : [birth year] MR#: [id number] PCP: ADMITTED: 12/20/15 DATE OF SERVICE: 12/20/15 HPI - Hosp Psych H P Chief Complaint Pt was sent from [facility] here for hallunication History of Present Illness 24 yo AA Female with known schizophrenia was seen at [facility] for hallucination. Apparently pt has been lived in mcc and sent to [facility] for acute exacerbation of her underline schizophrenia. [...] QDAY Haloperidol* (Haldol*) 5 MG PO BID [place] Carbonate SR* (Lithobid*) 300 MG PO QDAY liTHIum Carbonate SR* ([place] Carbonate SR*) 450 MG PO 4PM Discontinued Reported Medications Citalopram* (CeleXA*) 40 MG PO QDAY Benztropine* 0.5 MG PO BID buPROPion SR* 150 MG PO [id number] Trazodone* (Desyrel*) 100 MG PO HS RisperiDONE* [...] 324 MG QDAY 12/20 0900 CKD PO [place] Carbonate 300 MG QDAY 12/20 0900 AC PO Polyethylene Glycol 17 GM QDAY 12/20 0900 CKD PO Benztropine Mesylate 1 MG 0900,1700 12/19 1700 AC PO Docusate Sodium 100 MG 0900,1700 12/19 1700 AC PO Haloperidol 5 MG 0900,17012/19 1700 AC PO [place] Carbonate 450 MG PM 12/19 1700 AC [...] fullly ambulartory Care Level Complexity of Care K77851 Comprehensive history, comprehensive examination, medical decision making of low complexity, at least 20 minutes at the bedside, patient's floor/ unit. ESigned by: YAS GARZA MD Date:12/21/15 Time:1633 / NOT FOR REDISCLOSURE WITHOUT PATIENT'S INFORMED CONSENT Admission evaluation note * Event Display: Admit Notes Authored Date: [id number] [place], [place] PSYCHIATRIC ADMISSION NOTE NAME: LORETTA CELESTIN : 89 HOSPITAL #: [id number] MR #: [id number] CHART LOC: PCP: DICTATING: MARIA R Robin MD DATE OF ADMISSION: 12/20/15 DATE OF SERVICE: 12/21/15 CHIEF COMPLAINT: This 23-year-old woman was admitted to [facility] on 12/20/15 on a Conditional [...] is living in a mcc. Came to [place] with her grandmother in [...] year NAME: LORETTA CELESTIN : [birth year] HOSP#: [id number] MR#: [id number] CHART LOC: PCP: DICTATING: MARIA R Robin MD PSYCHIATRIC ADMISSION NOTE CONTINUED: unknown. TREATMENT PLAN: Resume outpatient medications, physical exam, collateral contact with community caregivers and social network, safety plan, aftercare plan and observe. 927 T:sn DD:20151221 TD:0745 DT:20151221 TT:0924 JOB:[id number] TORIE MARIA R Robin MD ESigned by: Date:12/22/15 Time:06 NOT FOR REDISCLOSURE WITHOUT PATIENT'S INFORMED CONSENT Patient Care team information Care Team Personnel Name: Dean Rivas RN Position: [facility] RN Member Role: Primary Care Nurse Name: Jolanta Ace RN Position: [facility] RN Supv Member Role: Primary Care Nurse Name: Fatoumata Stokes DO Position: [facility] Physician - Primary Care Member Role: PCP Address: Address: [address] [place] [address] Adult & [place] [address]- Name: Awilda Grider RN Position: [facility] RN Member Role: Primary Care Nurse Name: Meagan Darden RN Position: [facility] RN Member Role: Primary Care Nurse Name: Chintan Leach DO Position: [facility] Renal MD Member Role: Lifetime Consulting Physician Address: Address: [address] [place], [place] [address] [place] [address]- Name: Chandler Ye RN Position: [facility] [...] Role: Lifetime Consulting Physician Address: Address: [address] [place] [address]- [place] Care Team Related Persons Name: CHUNDORITA Address: [address] [place] [address] Name: STEW PECK Address: home [address] [place] [address] Name: LISA PALMA Address: [address] [place] [address]
--- OUTSIDE RECORDS SUMMARY | 2024-06-11 16:54 | XMS_ITS | Continuity of Care Document ---
Author Organization [facility] Address [address] [place] [address]- Care Team Providers Care Insole Beveler Name Role Phone Fatoumata Stokes DO Primary Care Physician Encounter [facility] Date(s): 11/26/23 - 11/27/[address] [address]- Encounter Diagnosis Irregular menses(Final) - 11/27/23 Abdominal pain(Final) - 11/27/23 Discharge Disposition: A-D/C Home Attending Physician: Kevin [...] 0 Refills, Maintenance, 07/05/23 0:27:00 EDT, Nasal [place], Partial fill upon patient request if the [...] 07/19/23 13:53:00 EDT, Route to Pharmacy Electronically, [facility], Partial fill upon patient request if [...] 07/19/23 13:50:00 EDT, Route to Pharmacy Electronically, [facility], Partial fill upon patient request if [...] 2 Oxygen Saturation [94-100 %] 100 % (11/27/23 2:00 AM) 100 % (11/26/23 7:06 PM) Pulse Rate [55-90 bpm] 68 bpm (11/27/23 2:00 AM) 73 bpm (11/26/23 7:06 PM) Blood Pressure [90-138/55-84 mm Hg] 113/ 63mm Hg (11/27/23 2:00 AM) 139/88mm Hg *H* (11/26/23 7:06 PM) Respiratory Rate [16-30 br/min] 16 br/mi n (11/27/23 2:00 AM) 19 br/min (11/26/23 7:06 PM) Temperature [96.8-100.4 DegF] 98.5 DegF (11/26/23 7:06 PM) Mode of Delivery (Oxygen) Room air (11/27/23 2:00 AM) Room air (11/26/23 7:06 PM) Blood pressure sites Arm, left (11/27/23:00 AM) Temperature Route Oral (11/26/23 7:06 PM) Social History Social History Type Response Smoking Status 5-9 cigarettes (betw een 1/4 to 1/2 pack)/day in last 30 days; Interested in cessation: No; Patient wants NRT during admission Yes; Other: will accept nicotine gum; entered on: 07/14/23 Sex History and physical note * Event Display: History and Physical Hospital Authored Date: [id number] [place], [place] PSYCHIATRIC HISTORY ASSESS EXAM NAME: LORETTA CELESTIN : [birth year] MR#: [id number] PCP: ADMITTED: 12/20/15 DATE OF SERVICE: 12/20/15 HPI - Hosp Psych H P Chief Complaint Pt was sent from [facility] here for hallunication History of Present Illness 24 yo AA Female with known schizophrenia was seen at [facility] for hallucination. Apparently pt has been lived in skilled nursing [facility] QDAY Haloperidol* (Haldol*) 5 MG PO BID [place] Carbonate SR* (Lithobid*) 300 MG PO QDAY liTHIum Carbonate SR* ([place] Carbonate SR*) 450 MG PO 4PM Discontinued Reported Medications Citalopram* (CeleXA*) 40 MG PO QDAY Benztropine* 0.5 MG PO BID buPROPion SR* 150 MG PO [id number] Trazodone* (Desyrel*) 100 MG PO HS RisperiDONE* [...] 324 MG QDAY 12/20 0900 CKD PO [place] Carbonate 300 MG QDAY 12/20 0900 AC PO Polyethylene Glycol 17 GM QDAY 12/20 0900 CKD PO Benztropine Mesylate 1 MG 0900,0 12/19 1700 AC PO Docusate Sodium 100 MG 0900,17012/19 1700 AC PO Haloperidol 5 MG 0900,17012/19 1700 AC PO [place] Carbonate 450 MG PM 12/19 1700 AC [...] fullly ambulartory Care Level Complexity of Care Q80330 Comprehensive history, comprehensive examination, medical decision making of low complexity, at least 20 minutes at the bedside, patient's floor/ unit. ESigned by: YAS GARZA MD Date:12/21/15 Time:1633 / NOT FOR REDISCLOSURE WITHOUT PATIENT'S INFORMED CONSENT Admission evaluation note * Event Display: Admit Notes Authored Date: [id number] [place], [place] PSYCHIATRIC ADMISSION NOTE NAME: LORETTA CELESTIN : 89 HOSPITAL #: [id number] MR #: [id number] CHART LOC: PCP: DICTATING: MARIA R Robin MD DATE OF ADMISSION: 12/20/15 DATE OF SERVICE: 12/21/15 CHIEF COMPLAINT: This 23-year-old woman was admitted to [facility] on 12/20/15 on a Conditional [...] year NAME: LORETTA CELESTIN : 89 HOSP#: [id number] MR#: [id number] CHART LOC: PCP: DICTATING: MARIA R Robin MD PSYCHIATRIC ADMISSION NOTE CONTINUED: unknown. TREATMENT PLAN: Resume outpatient medications, physical exam, collateral contact with community caregivers and social network, safety plan, aftercare plan and observe. 927 T: DD:20151221 TD:0745 DT:20151221 TT:0924 [id number] TORIE MARIA R Robin MD ESigned by: Date:12/22/15 Time:06 NOT FOR REDISCLOSURE WITHOUT PATIENT'S INFORMED CONSENT Patient Care team information Care Team Personnel Name: Dean Rivas RN Position: [facility] RN Member Role: Primary Care Nurse Name: Jolanta Ace RN Position: [facility] RN Supv Member Role: Primary Care Nurse Name: Fatoumata Stokes DO Position: [facility] Physician - Primary Care Member Role: PCP Address: Address: [address] [place] [address] Adult [place] [address]- Name: Awilda Grider RN Position: [facility] RN Member Role: Primary Care Nurse Name: Meagan Darden RN Position: [facility] RN Member Role: Primary Care Nurse Name: Chintan Leach DO Position: [facility] Renal MD Member Role: Lifetime Consulting Physician Address: Address: [address] [place], [place] [address] [place] [address]- Name: Chandler Ye RN Position: [facility] RN Member Role: Primary Care Nurse Name: Apurva Ji RN Position: [facility] ED RN W/OE and Tasks Member Role: Primary Care Nurse Name: Cordelia Matias RN Position: [facility] AMB Nurse Member Role: Primary Care Nurse Name: Riya Moore RN Position: [facility] RN Member Role: Primary Care Nurse Name: Radha Gutierrez Position: [facility] Outreach Member Role: Primary Care Nurse Name: Keenan Vincent RN Position: [facility] RN Member Role: Primary Care Nurse Name: Sasha Patricio RN Position: [facility] RN Member Role: Primary Care Nurse Name: Virgie Angel Position: [facility] RN Member Role: Primary Care Nurse Name: Emma Kaminski RN Position: [facility] RN Member Role: Primary Care Nurse Name: Malu Palomo Position: [facility] RN Member Role: Primary Care Nurse Name: Azeb Gusman RN Position: [facility] RN Member Role: Primary Care Nurse Name: Asher Diaz RN Position: [facility] RN Member Role: Primary Care Nurse Name: Kim Cornell RN Position: [facility] RN Member Role: Primary Care Nurse Name: Meredith Martinez RN Position: [facility] RN Member Role: Primary Care Nurse Name: Anika Gotti RN Position: [facility] RN Member Role: Primary Care Nurse Name: Kvng Tompkins RN Position: [facility] ED RN W/OE and Tasks Member Role: Primary Care Nurse Name: Rafiq Muñoz RN Position: [facility] RN Member Role: Primary Care Nurse Name: Justina Walker RN Position: [facility] RN Member Role: Primary Care Nurse Name: Ivone Hidalgo RN Position: [facility] RN Member Role: Primary Care Nurse Name: Mazin Penn MD Position: [facility] Physician - Behavioral Health Member Role: Lifetime Consulting Physician Address: Address: [address] [place] [address]- [place] Care Team Related Persons Name: DORITA MCCOLLUM Address: [address] [place] [address] Name: STEW PECK Address: [address] [facility] [address] Name: LISA PALMA Address: [address] [place] [address]
--- OUTSIDE RECORDS SUMMARY | 2024-06-11 16:54 | XMS_ITS | Continuity of Care Document ---
Author Organization [facility] ter Address [address] [place] [address]- Care Team Providers Care Paint Maker Name Role Phone Fatoumata Stokes DO Primary Care Physician Encounter [facility] Date(s): 10/20/23 - 11/19/[address] [address] Allergies, Adverse Reactions, Alerts Substance [...] 0 Refills, Maintenance, 07/05/23 0:27:00 EDT, Nasal [place], Partial fill upon patient request if the [...] Maintenance,07/19/23 13:53:00 EDT, Route to Pharmacy Electronically, [facility], Partial fill upon patient request if the prescription is for a schedule... Start Date: 07/19/23 Stop Date: 08/18/23 Status: Ordered traZODone 50 mg oral tablet 50 mg, 1, tablet, By Mouth, Daily at bedtime, # 30 tablet, Refills 0, Tot. Refills 0, Maintenance, 07/19/23 13:53:00 EDT, Route to Pharmacy Electronically, [facility], Partial fill upon patient request if [...] 07/19/23 13:50:00 EDT, Route to Pharmacy Electronically, [facility], Partial fill upon patient request if [...] Display: History and Physical Hospital Authored Date: [id number] [place], [place] PSYCHIATRIC HISTORY ASSESS EXAM NAME: LORETTA CELESTIN : 89 MR#: [id number] PCP: ADMITTED: 12/20/15 DATE OF SERVICE: 12/20/15 HPI - Hosp Psych H P Chief Complaint [place] [facility] [place] History of Present Illness 24 yo AA Female with known schizophrenia was seen at [facility] for hallucination. Apparently pt has been lived in nursing home and sent to [facility] for acute exacerbation of her underline schizophrenia. [...] QDAY Haloperidol* (Haldol*) 5 MG PO BID [place] Carbonate SR* (Lithobid*) 300 MG PO QDAY liTHIum Carbonate SR* ([place] Carbonate SR*) 450 MG PO 4PM Discontinued Reported Medications Citalopram* (CeleXA*) 40 MG PO QDAY Benztropine* 0.5 MG PO BID buPROPion SR* 150 MG PO [id number] Trazodone* (Desyrel*) 100 MG PO HS RisperiDONE* [...] 324 MG QDAY 12/20 09 CKD PO [place] Carbonate 300 MG QDAY 12/20 09 AC PO Polyethylene Glycol 17 GM QDAY 12/20 09 CKD PO Benztropine Mesylate 1 MG 0900,12/19 1700 AC PO Docusate Sodium 100 MG 0900,12/19 1700 AC PO Haloperidol 5 MG 0900,12/19 1700 AC PO [place] Carbonate 450 MG PM 12/19 1700 AC [...] fullly ambulartory Care Level Complexity of Care [id number] Comprehensive history, comprehensive examination, medical decision making of low complexity, at least 20 minutes at the bedside, patient's floor/ unit. ESigned by: YAS GARZA MD Date:12/21/15 Time:1633 / NOT FOR REDISCLOSURE WITHOUT PATIENT'S INFORMED CONSENT Admission evaluation note * Event Display: Admit Notes Authored Date: [place], [place] PSYCHIATRIC ADMISSION NOTE NAME: LORETTA CELESTIN : 89 HOSPITAL #: [id number] MR #: [id number] CHART LOC: PCP: DICTATING: MARIA R Robin MD DATE OF ADMISSION: 12/20/15 DATE OF SERVICE: 12/21/15 CHIEF COMPLAINT: This 23-year-old woman was admitted to [facility] on 12/20/15 on a Conditional Voluntary [...] living in a nursing home. Came to [place] with her grandmother in [...] year NAME: LORETTA CELESTIN : 89 HOSP#: [id number] MR#: [id number] CHART LOC: PCP: DICTATING: MARIA R Robin MD PSYCHIATRIC ADMISSION NOTE CONTINUED: unknown. TREATMENT PLAN: Resume outpatient medications, physical exam, collateral contact with community caregivers and social network, safety plan, aftercare plan and observe. 927 T: DD:[id number] TD:0745 DT:[id number] TT:0924 JOB:[id number] MICHELLE/SHANNON MARIA R Robin MD ESigned by: Date:12/22/15 Time:642 NOT FOR REDISCLOSURE WITHOUT PATIENT'S INFORMED CONSENT Patient Care team information Care Team Personnel Name: Dean Rivas RN Position: [facility] RN Member Role: Primary Care Nurse Name: Jolanta Ace RN Position: [facility] RN Supv Member Role: Primary Care Nurse Name: Fatoumata Stokes DO Position: [facility] Physician - Primary Care Member Role: PCP Address: Address: [address] [place] [address] Adult [facility] [place] [address]- Name: Awilda Grider RN Position: S RN Member Role: Primary Care Nurse Name: Meagan Darden RN Position: [facility] RN Member Role: Primary Care Nurse Name: Chintan Leach DO Position: [facility] Renal MD Member Role: Lifetime Consulting Physician Address: Address: [address] [place], [place] [address] [place] [address]- Name: Chandler Ye RN Position: [facility] [...] Care Nurse Name: Emma Kaminski RN Position: [facility] RN Member Role: Primary Care Nurse Name: Malu Palomo Position: [facility] RN Member Role: Primary Care Nurse Name: Azeb Gusman RN Position: [facility] RN Member Role: Primary Care Nurse Name: Asher Daiz RN Position: [facility] RN Member Role: [...] Role: Lifetime Consulting Physician Address: Address: [address] [place] [address]- [place] Care Team Related Persons Name: DORITA MCCOLLUM Address: [address] [place] [address] Name: KIA PECKCY Address: home [address] [facility] [address] Name: LISA PALMA Address: [address] [place] [address]
--- OUTSIDE RECORDS SUMMARY | 2024-06-11 16:54 | XMS_ITS | Continuity of Care Document ---
Author Organization [facility] ter Address [address] [place] [address]- Care Team Providers Care Concrete Block Maker Name Role Phone Fatoumata Stokes DO Primary Care Physician [place] [facility] [place](s[place] 05/30/24 - 05/30/[address] [address]- Encounter Diagnosis Abdominal pain(Final) - 05/30/24 Discharge Disposition: A-D/C Home Attending Physician: Sheila [...] tablet, 0 Refills, Maintenance, 05/30/24 15:01:00 EDT, [facility], 163, cm, 05/26/24 12:29:00 EDT, Height, [...] Refills, Soft Stop, 04/09/24 12:02:00 EDT, Tablet, [facility], Partial fill upon patient request if [...] 0 Refills, Maintenance, 03/09/24 14:42:00 EDT, Nasal [place], [facility], Partial fill upon patient request if the prescription is for a schedule II opi... Start Date: 03/09/24 Status: Ordered lidocaine 5% topical film 1 patch, Topically, Daily, INSTR:REMOVE PATCHES AFTER 12 HOURS, # 30 each, 0 Refills, Maintenance, 04/26/24 17:29:00 EDT, [facility], 30, APPLY 1 PATCH TOPICALLY DAILY,INSTR:REMOVE [...] Replace Required Details, Route to Pharmacy Electronically, [facility], 163, cm, 05/22/24 10:33:00 EDT, Height, [...] 0 Refills, Maintenance, 04/25/24 10:05:00 EDT, ECCapsule, [facility], Partial fill upon patient request if [...] By Mouth, Daily, call the office at [phone] if you do not get a menstrual cycle., # 10 tablet, Refills 0, Tot. Refills 0, Maintenance, 12/21/23 15:20:00 EDT, Route to Pharmacy Electronically, [facility], Partial fill u... Start Date: 12/21/23 [...] tablet, 11 Refills, Maintenance, 02/17/24 9:32:00 EDT, [facility], 163, cm, 02/17/24 9:01:00 EDT, Height, 96.5, kg, 02/11/24 1:23:00 EDT, Dry Weight Start Date: 02/17/24 Status: Ordered Vitamin C 250 mg oral tablet 1 tablet, By Mouth, Daily in AM, AT 9AM., # 30 tablet, 0 Refills, Maintenance, 02/02/24 15:05:00 EDT, [facility], 163, cm, 01/24/24 9:01:00 EDT, Height, [...] Exam Date Time Procedure Performing Provider Status 05/30/24 2:[address] Abd/Pelvis W/ IV Contrast Only Bladimir Crawford; Geena (Verified) Notes: (CT Abd/Pelvis W/ IV Contrast Only) Reason For Exam: constipation vs SBO;Other: RESULT: CT Abd/Pelvis W/ IV Contrast Only CT Abd/Pelvis W/ IV Contrast Only Hx of Present Illness: Abdominal Pain; Reason: Other:; constipation vs SBO; Clinical Question(s): Appendicitis; Order Comment: TECHNIQUE: Spiral CT through the abdomen and pelvis with IV contrast formatted in 3 planes. 100 cc of Omnipaque 300 was administered intravenously. This study was performed without oral contrast. Weight-based protocol using automatic tube modulation was used to optimize exposure parameters. CTDIvol Body: 22.17 mGy, DLP Body: 1356 mGy*cm. COMPARISON: 11/26/2022 FINDINGS: The heart is normal in size. There is no pericardial effusion. The visualized lung bases are unremarkable. The liver and spleen are unremarkable. The gallbladder is not visualized and is likely surgically absent. The pancreas and adrenal glands are unremarkable. Symmetric renal contrast enhancement is demonstrated bilaterally. There are no cysts or masses. There is no hydronephrosis. The bladder, uterus, and adnexal structures are unremarkable. The stomach, small bowel, and appendix are unremarkable. A large stool burden is seen throughout the colon to the level of the rectum. The colon is redundant, extending into Morison's pouch and into the splenorenal ligament. There is no free air or free fluid. Borderline enlarged pericecal lymph nodes are seen measuring up to 1 cm. The osseous structures are unremarkable. IMPRESSION: Large stool burden consistent with constipation. There is no obstruction. Pericecal lymph nodes are borderline enlarged which could be secondary to mesenteric adenitis. WSN: [id number] Ordering Physician: Pietro Ruelas Dictated By: Mindy Willoughby MD Dictated Date/Time: 05/30/24 2:53 pm Reviewed By: Mindy Willoughby MD Signed By: Mindy Willoughby MD Signed Date/Time: 05/30/24 2:53 pm Transcribed By: TOMMY Transcribed Date/Time: 05/30/24 2:45 pm Vital Signs Most recent to oldest [Reference Range]: 1 2 3 Oxygen Saturation [94-100 %] 98 % (05/30/24 4:39 PM) 99 % (05/30/24 2:11 PM) 99 % (05/30/24 1:33 PM) Pulse Rate [55-90 bpm] 75 bpm (05/30/24 4:39 PM) 81 bpm (05/30/24 2:11 PM) 77 bpm (05/30/24 1:33 PM) Blood Pressure [90-138/55-84 mm Hg] 122/84mm Hg (05/30/24 4:39 PM) 126/91mm Hg (05/30/24 2:11 PM) 128/88mm Hg (05/30/24 1:33 PM) Respiratory Rate [16-30 br/min] 17 br/min (05/30/24 4:39 PM) 16 br/min (05/30/24 2:11 PM) 18 br/min (05/30/24 1:33 PM) Temperature [96.8-100.4 DegF] 98.2 DegF (05/30/24 2:11 PM) 97.9 DegF (05/30/24 1:33 PM) Mode of Delivery (Oxygen) Room air (05/30/24 4:39 PM) Room air (05/30/24 2:11 PM) Room air (05/30/24 1:33 PM) Blood pressure sites Arm, right (05/30/24 4:39 PM) Arm, right (05/30/24 2:11 PM) Arm, right (05/30/24 1:33 PM) Temperature Route Oral (05/30/24 2:11 PM) Oral (05/30/24 1:33 PM) Social History Social History Type Response Smoking Status 5-9 cigarettes (betw een 1/4 to 1/2 pack)/day in last 30 days; Interested in cessation: No; Patient wants NRT during admission Yes; Other: will accept nicotine gum; entered on: 07/14/23 Sex History and physical note * Event Display: History and Physical Hospital Authored Date: [id number] [place], [place] PSYCHIATRIC HISTORY ASSESS EXAM NAME: LORETTA CELESTIN : 89 MR#: [id number] PCP: ADMITTED: 12/20/15 DATE OF SERVICE: 12/20/15 HPI - Hosp Psych H P Chief Complaint Pt was sent from [facility] here for hallunication History of Present Illness 24 yo AA Female with known schizophrenia was seen at [facility] [place] halluc[place]. Apparently pt has been lived in prison and sent [place] [facility] [place] acute exacerbation of her underline schizophrenia. [...] QDAY Haloperidol* (Haldol*) 5 MG PO BID [place] Carbonate SR* (Lithobid*) 300 MG PO QDAY liTHIum Carbonate SR* ([place] Carbonate SR*) 450 MG PO 4PM Discontinued Reported Medications Citalopram* (CeleXA*) 40 MG PO QDAY Benztropine* 0.5 MG PO BID buPROPion SR* 150 MG PO [id number] Trazodone* (Desyrel*) 100 MG PO HS RisperiDONE* [...] 324 MG QDAY 12/20 09 CKD PO [place] Carbonate 300 MG QDAY 12/20 0900 AC PO Polyethylene Glycol 17 GM QDAY 12/20 0900 CKD PO Benztropine Mesylate 1 MG 0900,1700 12/19 1700 AC PO Docusate Sodium 100 MG 0900,1700 12/19 1700 AC PO Haloperidol 5 MG 0900,1700 12/19 1700 AC PO [place] Carbonate 450 MG PM 12/19 1700 AC [...] fullly ambulartory Care Level Complexity of Care [id number] Comprehensive history, comprehensive examination, medical decision making of low complexity, at least 20 minutes at the bedside, patient's floor/ unit. ESigned by: YAS GARZA MD Date:12/21/15 Time:1633 / NOT FOR REDISCLOSURE WITHOUT PATIENT'S INFORMED CONSENT Admission evaluation note * Event Display: Admit Notes Authored Date: [id number] [place], [place] PSYCHIATRIC ADMISSION NOTE NAME: LORETTA CELESTIN : 89 HOSPITAL #: [id number] MR #: [id number] CHART LOC: PCP: DICTATING: MARIA R Robin MD DATE OF ADMISSION: 12/20/15 DATE OF SERVICE: 12/21/15 CHIEF COMPLAINT: This 23-year-old woman was admitted to [facility] on 12/20/15 [...] is living in a prison. Came to [place] with her grandmother in [...] year NAME: LORETTA CELESTIN : 89 HOSP#: [id number] MR#: [id number] CHART LOC: PCP: DICTATING: MARIA R Robin MD PSYCHIATRIC ADMISSION NOTE CONTINUED: unknown. TREATMENT PLAN: Resume outpatient medications, physical exam, collateral contact with community caregivers and social network, safety plan, aftercare plan and observe. 927 T:sn DD:[id number] TD:0745 DT:20151221 TT:0924 JOB:[id number] MICHELLE/SHANNON MARIA R Robin MD ESigned by: Date:12/22/15 Time:642 NOT FOR REDISCLOSURE WITHOUT PATIENT'S INFORMED CONSENT Note * Pietro Pope: PERFORM Event Display: Patient Education Leaflets Authored Date: [id number] High Fiber Diet ?? 670 ?? High Fiber Diet ??You must carefully read the Consumer Information Use and Disclaimer below in order to understand and correctly use this information?? About this topic Dietary fiber helps many illnesses. It can help you if you cannot have a bowel movement or if you have loose stools. Fiber can also lower your risk of diabetes and heart disease. Fiber can help with weight loss by helping you feel brower after meals.??You can find fiber in fruits, vegetables, nuts and seeds, whole grains, and legumes. The fiber is the part of the plant food that your body cannot break down and absorb. It passes through your stomach, small bowel, colon, and out your body.??Thereare two kinds of fiber: Insoluble and soluble fiber. Insoluble fiber helps you pass foods through your digestive system. Insoluble fiber can help you with hard stools. Soluble fiber draws water in and turns it into a gel-like form making digestion slow down. Both are important.?? What will the results be? A high fiber diet can help you with bowel problems like stools that are too hard or too loose. It can also help prevent hemorrhoids and other colon problems. A high fiber diet can also help control your weight and lower blood sugar and cholesterol levels.?? What changes to diet are needed? The amount of fiber you need is based on your age, gender, and health.? Try to get 20 to 35 grams of fiber in your diet each day. Most people in the [place] only eat 15 grams of fiber daily. ??? Drink at least 8 cups (1920 mL) of fluid each day. ?? When is this diet used? Your doctor may talk with you about this diet if you have belly problems.?? Who should use this diet? Older children, young people, and adults can have this diet.?? Who should not use this diet? Some people should not use this diet. Check with your doctor if you have: ??? Diverticulitis ??? Active Crohn's disease ??? Ulcerative colitis ??? Bowel inflammation ??? Certain types of GI surgery ?? What foods are good to eat? To get the most from fiber in your diet, eat a wide variety of high fiber foods. Some examples are:??? Vegetables like: o Spinach o Peas o Artichoke o Sweet potatoes with skin o Broccoli ??? Fruits like: o Raspberries o Blueberries o Blackberries o Apples with skin o Dried fruits ??? Grains like: o Oat bran o Barley o Whole wheat products o Wheat bran ??? Dried beans and nuts like: o [place]land seeds o Almonds o Black beans o Chickpeas ?? What problems could happen? Sudden increase of fiber intake can lead to gas, pain, fullness in your??belly, and loose stools. Increase fiber gradually while drinking plenty of fluids. ??? Do not eat too much fiber. Your body will not take in vitamins and minerals as well if you eat too much fiber. ?? When do I need to call the doctor? Health problem is not better or you are feeling worse.?? Helpful tips ??? Start slow as you add more fiber to your diet. This may help prevent??gas or cramps. ??? Try toeat the same amount of fiber each day. Aim to get your fiber??from nutritious foods. ??? Supplements do not offer the same benefits as??food. ??? Read food labels with care to learn how much fiber isin the food you??are eating. ??? If possible, do not peel fruits or vegetables before you eat them.??? Eating the peel gives you more fiber. ? Where can I learn more? Eat Righthttps://www.eatright.org/food/rbwmstuk-edn-wtaljxwdzht/wbmxb-ou-rdf jbqxr-llo-nqlnbkbpw/pmgc-awgd-sx-ghorg-zscro-om-gpqi-bqwcy-fcqqOozx Reviewed Bcru6242-26-39IxwejiezMkjxlheleqb Use and Disclaimer:This generalized information is a limited summary of diagnosis, treatment, and/or medication information. It is not meant to be comprehensive and should be used as a tool to help the user understand and/or assess potential diagnostic and treatment options. It does NOTinclude all information about conditions, treatments, medications, side effects, or risks that may apply to a specific patient. It is not intended to be medical advice or a substitute for the medicaladvice, diagnosis, or treatment of a health care provider based on the health care provider's examination and assessment of a patient???s specific and unique circumstances. Patients must speak with [facility] care provider for complete information about their health, medical questions, and treatment options, including any risks or benefits regarding use of medications. This information does not endorse any treatments or medications as safe, effective, or approved for treating a specific patient. [employer]. and its affiliates disclaim any warranty or liability relating to this information orthe use thereof. The use of this information is governed by the Terms of Use, available at??https:// www.[employer].com/en/know/hxbogjec-pjlrzsdwcycac-rtydfCqxo Updated 11/18/21? * Pietro Pope: PERFORM Event Display: Patient Education Leaflets Authored Date: [id number] Constipation (Adult) ?? [id number] Constipation (Adult) Constipation means that you have [...] Weakness ?? Last Reviewed Date: 2021 ?? [employer]. All rights reserved. This information is not [...] Primary Care Member Role: PCP Address: Address: [address] [place] [address] Adult [place] [address]- Name: Awilda Grider RN Position: [facility] RN Member Role: Primary Care Nurse Name: Meagan Darden RN Position: [facility] RN Member Role: Primary Care Nurse Name: Chintan Leach DO Position: [facility] Renal MD Member Role: Lifetime Consulting Physician Address: Address: [address] [place] [address] [address] [facility] [place] [address]- Name: Chandler eY RN Position: [facility] RN Member Role: [...] Member Role: Primary Care Nurse Name: Keenan Vicnent RN Position: [facility] SN RN Member [...] Role: Lifetime Consulting Physician Address: Address: [address] [place] [address]- [place] Care Team Related Persons Name: MICK MCCOLLUMTRA Address: [address] [place] [address] Name: STEW PECK Address: [address] [place] [address] Name: LISA PALMA Address: [address] [place] [address]
--- OUTSIDE RECORDS SUMMARY | 2024-06-11 16:55 | XMS_ITS | Continuity of Care Document ---
Author Organization [facility] Address [address] [place] [address]- Care Team Providers Care Insulation Board Back Tender Name Role Phone Fatoumata Stokes DO Primary Care Physician Encounter [facility] Date(s): 01/16/24 - 02/15/24 [facility] [address] [place], [place] [address] Allergies, Adverse Reactions, Alerts [...] Refills, Soft Stop, 12/21/23 15:20:00 EDT, Tablet, [facility], Partial fill upon patient request if [...] 0 Refills, Maintenance, 07/05/23 0:27:00 EDT, Nasal [place], Partial fill upon patient request if the [...] 02/13/24 16:31:00 EDT, Route to Pharmacy Electronically, [facility], 163, cm, 02/11/24 1:23:00 EDT, Height, [...] 0 Refills, Maintenance, 12/23/23 17:55:00 EDT, ECCapsule, [facility], Partial fill upon patient request if [...] Maintenance,07/19/23 13:53:00 EDT, Route to Pharmacy Electronically, [facility], Partial fill upon patient request if the prescription is for a schedule... Start Date: 07/19/23 Stop Date: 08/18/23 Status: Ordered Provera 10 mg oral tablet 10 mg, 1, tablet, By Mouth, Daily, call the office at [phone] if you do not get a menstrual [...] 07/19/23 13:53:00 EDT, Route to Pharmacy Electronically, [facility], Partial fill upon patient request if the prescription is for a schedule I... Start Date: 07/19/23 Stop Date: 08/18/23 Status: Ordered Vitamin C 250 mg oral tablet 1 tablet, By Mouth, Daily in AM, AT 9AM., # 30 tablet, 0 Refills, Maintenance, 02/02/24 15:05:00 EDT, [facility], 163, cm, 01/24/24 9:01:00 EDT, Height, 100.2, kg, 10/17/23 16:02:00 EST, Dry Weight Start Date: 02/02/24 Status: Ordered ZyPREXA 10 mg oral tablet 10 mg, 1, tablet, By Mouth, Daily at bedtime, # 30 tablet, Refills 0, Tot. Refills 0, Maintenance, 07/19/23 13:50:00 EDT, Route to Pharmacy Electronically, [facility], Partial fill upon patient request if [...] Display: History and Physical Hospital Authored Date: [id number] [place], [place] PSYCHIATRIC HISTORY ASSESS EXAM NAME: LORETTA CELESTIN : [birth year] MR#: [id number] PCP: ADMITTED: 12/20/15 DATE OF SERVICE: 12/20/15 HPI - Hosp Psych H P Chief Complaint Pt was sent from [facility] here for hallunication History of Present Illness 24 yo AA Female with known schizophrenia was seen at [facility] [place] [place] [facility] for hallucination. Apparently pt has been lived in penitentiary and sent to [facility] [...] QDAY Haloperidol* (Haldol*) 5 MG PO BID [place] Carbonate SR* (Lithobid*) 300 MG PO QDAY liTHIum Carbonate SR* ([place] Carbonate SR*) 450 MG PO 4PM Discontinued Reported Medications Citalopram* (CeleXA*) 40 MG PO QDAY Benztropine* 0.5 MG PO BID buPROPion SR* 150 MG PO [id number] Trazodone* (Desyrel*) 100 MG PO HS RisperiDONE* [...] 324 MG QDAY 12/20 0900 CKD PO [place] Carbonate 300 MG QDAY 12/20 0900 AC PO Polyethylene Glycol 17 GM QDAY 12/20 0900 CKD PO Benztropine Mesylate 1 MG 0900,1700 12/19 1700 AC PO Docusate Sodium 100 MG 0900,1700 12/19 1700 AC PO Haloperidol 5 MG 0900,1700 12/19 1700 AC PO [place] Carbonate 450 MG PM 12/19 1700 AC [...] fullly ambulartory Care Level Complexity of Care [id number] Comprehensive history, comprehensive examination, medical decision making of low complexity, at least 20 minutes at the bedside, patient's floor/ unit. ESigned by: YAS GARZA MD Date:12/21/15 Time:1633 / NOT FOR REDISCLOSURE WITHOUT PATIENT'S INFORMED CONSENT Admission evaluation note * Event Display: Admit Notes Authored Date: [id number] [place], [place] PSYCHIATRIC ADMISSION NOTE NAME: LORETTA CELESTIN : [birth year] HOSPITAL #: [id number] MR #: [id number] CHART LOC: PCP: DICTATING: MARIA R Robin MD DATE OF ADMISSION: 12/20/15 DATE OF SERVICE: 12/21/15 CHIEF COMPLAINT: This 23-year-old woman was admitted to [facility] on 12/20/15 on a Conditional Voluntary [...] is living in a penitentiary. Came to [place] with her grandmother in [...] year NAME: LORETTA CELESTIN : [birth year] HOSP#: [id number] MR#: [id number] CHART LOC: PCP: DICTATING: MARIA R Robin MD PSYCHIATRIC ADMISSION NOTE CONTINUED: unknown. TREATMENT PLAN: Resume outpatient medications, physical exam, collateral contact with community caregivers and social network, safety plan, aftercare plan and observe. 927 T: DD:[id number] TD:0745 DT:20151221 TT:0924 [id number] MICHELLE/SHANNON MARIA R Robin MD ESigned by: [...] Primary Care Member Role: PCP Address: Address: [address] [place] [address] Adult & [place] [address]- Name: Awilda Grider RN Position: [facility] RN Member Role: Primary Care Nurse Name: Meagan Darden RN Position: [facility] RN Member Role: Primary Care Nurse Name: Chintan Leach DO Position: [facility] Renal MD Member Role: Lifetime Consulting Physician Address: Address: [address] [place], [place] [address] [place] [address]- Name: Chandler Ye RN [facility] Vincent RN Position: [facility] RN Member Role: Primary Care Nurse Name: Sasha Patricio RN Position: [facility] RN Member Role: Primary Care Nurse Name: Virgie Angel Position: [facility] RN Member [...] Member Role: Primary Care Nurse Name: Anika Gotit RN Position: [facility] RN [...] Role: Lifetime Consulting Physician Address: Address: [address] [place] [address]- [place] Care Team Related Persons Name: DORITA MCCOLLUM Address: [place] [address] [place] [address] Name: STEW PECK Address: home [address] [place] [address] Name: LISA PALMA Address: home [address] [place] [address]
--- OUTSIDE RECORDS SUMMARY | 2024-06-11 16:55 | XMS_ITS | Continuity of Care Document ---
Author Organization [facility] Address [address] [place] [address]- Care Team Providers Care Mattress Weaver Name Role Phone Fatoumata Stokes DO Primary Care Physician ( [phone] Encounter [facility] Date(s): 09/29/23 - 11/30/23 [facility] [address] [place], [place] [address] Attending Physician: Jorje TORRES, Danielle Elias Allergies, Adverse Reactions, Alerts Substance Reaction Severity [...] 0 Refills, Maintenance, 07/05/23 0:27:00 EDT, Nasal [facility] [facility], Partial fill upon patient request if the [...] Maintenance,07/19/23 13:53:00 EDT, Route to Pharmacy Electronically, [facility], Partial fill upon patient request if the prescription is for a schedule... Start Date: 07/19/23 Stop Date: 08/18/23 Status: Ordered traZODone 50 mg oral tablet 50 mg, 1, tablet, By Mouth, Daily at bedtime, # 30 tablet, Refills 0, Tot. Refills 0, Maintenance, 07/19/23 13:53:00 EDT, Route to Pharmacy Electronically, [facility], Partial fill upon patient request if [...] 07/19/23 13:50:00 EDT, Route to Pharmacy Electronically, [facility], Partial fill upon patient request if [...] Display: History and Physical Hospital Authored Date: [id number] [place], [place] PSYCHIATRIC HISTORY ASSESS EXAM NAME: LORETTA CELESTIN : [birth year] MR#: [id number] PCP: ADMITTED: 12/20/15 DATE OF SERVICE: 12/20/15 HPI - Hosp Psych H P Chief Complaint Pt was sent from [facility] here for hallunication History of Present Illness 24 yo AA Female with known schizophrenia was seen at [facility] for hallucination. Apparently pt has been lived in correction and [facility] [...] QDAY Haloperidol* (Haldol*) 5 MG PO BID [place] Carbonate SR* (Lithobid*) 300 MG PO QDAY liTHIum Carbonate SR* ([place] Carbonate SR*) 450 MG PO 4PM Discontinued Reported Medications Citalopram* (CeleXA*) 40 MG PO QDAY Benztropine* 0.5 MG PO BID buPROPion SR* 150 MG PO [id number] Trazodone* (Desyrel*) 100 MG PO HS RisperiDONE* [...] 324 MG QDAY 12/20 09 CKD PO [place] Carbonate 300 MG QDAY 12/20 09 AC PO Polyethylene Glycol 17 GM QDAY 12/20 09 CKD PO Benztropine Mesylate 1 MG 0900,12/19 1700 AC PO Docusate Sodium 100 MG 0900,12/19 1700 AC PO Haloperidol 5 MG 0900,12/19 1700 AC PO [place] Carbonate 450 MG PM 12/19 1700 AC [...] fullly ambulartory Care Level Complexity of Care [id number] Comprehensive history, comprehensive examination, medical decision making of low complexity, at least 20 minutes at the bedside, patient's floor/ unit. ESigned by: YAS GARZA MD Date:12/21/15 Time:1633 / NOT FOR REDISCLOSURE WITHOUT PATIENT'S INFORMED CONSENT Admission evaluation note * Event Display: Admit Notes Authored Date: [id number] [place], [place] PSYCHIATRIC ADMISSION NOTE NAME: LORETTA CELESTIN : [birth year] HOSPITAL #: [id number] MR #: [id number] CHART LOC: PCP: DICTATING: MARIA R Robin MD DATE OF ADMISSION: 12/20/15 DATE OF SERVICE: 12/21/15 CHIEF COMPLAINT: This 23-year-old woman was admitted to [facility] [...] year NAME: LORETTA CELESTIN : [birth year] HOSP#: [id number] MR#: [id number] CHART LOC: PCP: DICTATING: MARIA R Robin MD PSYCHIATRIC ADMISSION NOTE CONTINUED: unknown. TREATMENT PLAN: Resume outpatient medications, physical exam, collateral contact with community caregivers and social network, safety plan, aftercare plan and observe. 927 T: DD:[id number] TD:0745 DT:20151221 TT:0924 [id number] MICHELLE/SHANNON MARIA R Robin MD ESigned by: [...] Care Member Role: PCP Address: Address: [address] [place] [address] Adult [place] [address]- Name: Awilda Grider RN Position: S RN Member Role: Primary Care Nurse Name: Meagan Darden RN Position: S RN Member Role: Primary Care Nurse Name: Chintan Leach DO Position: [facility] Renal MD Member Role: Lifetime Consulting Physician Address: Address: [address] [place], [place] [address] [place] [address]- Name: Chandler Ye RN Position: S RN Member Role: Primary Care Nurse Name: Apurva Ji RN Position: [facility] ED RN W/OE and Tasks Member Role: Primary Care Nurse Name: Florencio ROTHMAN, Cordelia Tarango Position: [facility] AMB Nurse Member [...] Role: Lifetime Consulting Physician Address: Address: [address] [place] [address]- [place] Care Team Related Persons Name: DORITA MCCOLLUM Address: [address] [place] [address] Name: KIA PECKCY Address: home [address] [facility], [address] Name: LISA PALMA Address: [address] [place] [address]
--- OUTSIDE RECORDS SUMMARY | 2024-06-11 16:55 | XMS_ITS | Continuity of Care Document ---
Author Organization [facility] Address [address] [place] [address]- Care Team Providers Care Senior Mechanical Designer Name Role Phone Fatoumata Stokes DO Primary Care Physician ( [phone] Encounter [facility] Date(s): 05/22/24 - 05/29/24 [facility] [address] [place], [place] [address] Encounter Diagnosis Constipation(Discharge Diagnosis) - 05/22/24 Amenorrhea(Discharge Diagnosis) - 05/22/24 Attending Physician: Melissa METROLOGY TECHNICIAN, Wendy Allergies, Adverse Reactions, Alerts Substance Reaction [...] 0 Refills, Maintenance, 02/17/24 9:30:00 EDT, Tablet, [facility], Partial fill upon patient request if [...] Refills, Soft Stop, 04/09/24 12:02:00 EDT, Tablet, [facility], Partial fill upon patient request if the prescription is for a schedule II opioid drug., 163, cm, 03/26... Start Date: 04/09/24 Status: Ordered docusate-senna 50 mg-8.6 mg oral capsule 1 capsule, By Mouth, Daily in PM, # 60 capsule, 0 Refills, Acute 05/30/24 22:00:00 EDT, 05/26/24 15:28:00 EDT, Capsule, [facility], Partial fill upon patient request if [...] 0 Refills, Maintenance, 03/09/24 14:42:00 EDT, Nasal [place], [facility], Partial fill upon patient request if the prescription is for a schedule II opi... Start Date: 03/09/24 Status: Ordered lidocaine 5% topical film 1 patch, Topically, Daily, INSTR:REMOVE PATCHES AFTER 12 HOURS, # 30 each, 0 Refills, Maintenance, 04/26/24 17:29:00 EDT, [facility], 30, APPLY 1 PATCH TOPICALLY DAILY,INSTR:REMOVE [...] Replace Required Details, Route to Pharmacy Electronically, [facility], 163, cm, 05/22/24 10:33:00 EDT, Height, [...] 0 Refills, Maintenance, 04/25/24 10:05:00 EDT, ECCapsule, [facility], Partial fill upon patient [...] Maintenance,07/19/23 13:53:00 EDT, Route to Pharmacy Electronically, [facility], Partial fill upon patient request if the prescription is for a schedule... Start Date: 07/19/23 Stop Date: 08/18/23 Status: Ordered Provera 10 mg oral tablet 10 mg, 1, tablet, By Mouth, Daily, call the office at [phone] if you do not get a menstrual [...] tablet, 11 Refills, Maintenance, 02/17/24 9:32:00 EDT, [facility], 163, cm, 02/17/24 9:01:00 EDT, Height, 96.5, kg, 02/11/24 1:23:00 EDT, Dry Weight Start Date: 02/17/24 Status: Ordered Vitamin C 250 mg oral tablet 1 tablet, By Mouth, Daily in AM, AT 9AM., # 30 tablet, 0 Refills, Maintenance, 02/02/24 15:05:00 EDT, [facility], 163, cm, 01/24/24 9:01:00 EDT, Height, 100.2, kg, 10/17/23 16:02:00 EST, Dry Weight Start Date: 02/02/24 Status: Ordered ZyPREXA 10 mg oral tablet 10 mg, 1, tablet, By Mouth, Daily at bedtime, # 30 tablet, Refills 0, Tot. Refills 0, Maintenance, 07/19/23 13:50:00 EDT, Route to Pharmacy Electronically, [facility], Partial fill upon patient request if [...] Diagnosis Diagnosis Type Effective Dates Health Status Cl inical Service Informant Constipation Discharge Diagnosis 05/22/24 Amenorrhea Discharge Diagnosis 05/22/24 Vital Signs Most recent to oldest [Reference Range]: 1 Height 163 cm (05/22/24 10:33 AM) Weight 98.8 kg (05/22/24 10:33 AM) Oxygen Saturation [94-100 %] 99 % (05/22/24 10:33 AM) Pulse Rate [55-90 bpm] 105 bpm *H* (05/22/24 10:33 AM) Body Mass Index [18.5-24.99 kg/m2] 37.19 kg/m2 *>HHI* (05/22/24 10:33 AM) Blood Pressure [90-138/55-84 mm Hg] 114/ 82mm Hg (05/22/24 10:33 AM) Mode of Delivery (Oxygen) Room air (05/22/24 10:33 AM) Blood pressure sites Arm, right (05/22/24 10:33 AM) Dry Weight 98.8 kg (05/22/24 10:33 AM) Weight Obtained Via Standing scale (05/22/24 10:33 AM) Dry Weight Obtained Via Standing scale (05/22/24 10:33 AM) Social History Social History Type Response Smoking Status 5-9 cigarettes (betw een 1/4 to 1/2 pack)/day in last 30 days; Interested in cessation: No; Patient wants NRT during admission Yes; Other: will accept nicotine gum; entered on: 07/14/23 Sex History and physical note * Event Display: History and Physical Hospital Authored Date: [id number] [place], [place] PSYCHIATRIC HISTORY ASSESS EXAM NAME: LORETTA CELESTIN : [birth year] MR#: [id number] PCP: ADMITTED: 12/20/15 DATE OF SERVICE: 12/20/15 HPI - Hosp Psych H P Chief Complaint Pt was [place] [facility] [place] for hall[place] History of Present Illness 24 yo AA Female with known schizophrenia was seen at [facility] for hallucination. Apparently pt has been lived in senior care and sent to [facility] [...] QDAY Haloperidol* (Haldol*) 5 MG PO BID [place] Carbonate SR* (Lithobid*) 300 MG PO QDAY liTHIum Carbonate SR* ([place] Carbonate SR*) 450 MG PO 4PM Discontinued Reported Medications Citalopram* (CeleXA*) 40 MG PO QDAY Benztropine* 0.5 MG PO BID buPROPion SR* 150 MG PO [id number] Trazodone* (Desyrel*) 100 MG PO HS RisperiDONE* [...] 324 MG QDAY 12/20 0900 CKD PO [place] Carbonate 300 MG QDAY 12/20 0900 AC PO Polyethylene Glycol 17 GM QDAY 12/20 0900 CKD PO Benztropine Mesylate 1 MG 0900,1700 12/19 1700 AC PO Docusate Sodium 100 MG 0900,1700 12/19 1700 AC PO Haloperidol 5 MG 0900,1700 12/19 1700 AC PO [place] Carbonate 450 MG PM 12/19 1700 AC [...] fullly ambulartory Care Level Complexity of Care [id number] Comprehensive history, comprehensive examination, medical decision making of low complexity, at least 20 minutes at the bedside, patient's floor/ unit. ESigned by: YAS GARZA MD Date:12/21/15 Time:1633 / NOT FOR REDISCLOSURE WITHOUT PATIENT'S INFORMED CONSENT Admission evaluation note * Event Display: Admit Notes Authored Date: [id number] [place], [place] PSYCHIATRIC ADMISSION NOTE NAME: LORETTA CELESTIN : [birth year] HOSPITAL #: [id number] MR #: [id number] CHART LOC: PCP: DICTATING: MARIA R Robin MD DATE OF ADMISSION: 12/20/15 DATE OF SERVICE: 12/21/15 CHIEF COMPLAINT: This 23-year-old woman was admitted to [facility] on 12/20/15 [...] living in a senior care. Came to [place] with her grandmother in [...] year NAME: LORETTA CELESTIN : [birth year] HOSP#: [id number] MR#: [id number] CHART LOC: PCP: DICTATING: MARIA R Robin MD PSYCHIATRIC ADMISSION NOTE CONTINUED: unknown. TREATMENT PLAN: Resume outpatient medications, physical exam, collateral contact with community caregivers and social network, safety plan, aftercare plan and observe. 927 T:sn DD:20151221 TD:0745 DT:20151221 TT:0924 [id number] MICHELLE/SHANNON MARIA R Robin MD ESigned by: Date:12/22/15 Time:642 NOT FOR REDISCLOSURE WITHOUT PATIENT'S INFORMED CONSENT Note * Ivone Cruz: PERFORM Event Display: Patient Education/Instruction Authored Date: [id number] Ambulatory Adult Visit Summary [facility] [address] [place] [address] Name: LORETTA CELESTIN : 1990?? Visit: 05/22/2024 10:18?? Ambulatory Visit Instructions ?? Your Care Team Primary Care Provider Fatoumata Stkoes DO? This Visit Provider Melissa HODGES, Wendy Vitals Signs Pulse Rate:??105 bpm??High Height: 163 cm Systolic Blood Pressure: 114 mm Hg Weight: 98.8 kg Diastolic Blood Pressure: 82 mm Hg Body Mass Index:??37.19 kg/m2??Critical Oxygen Saturation: 99 % Body surface area: 2.12 What to do next Scheduled Follow-Up Appointments 2023 1:40 PM EDT ?? With: Fatoumata Stokes DO Where: [facility] [address] [place] [address]- Status: Pending Tuesday 11:30 AM EDT ?? Where: [facility] [address] [place] [address]- Status: Pending Tuesday 8:30 AM EST ?? With: Nalini Russo MD Where: [facility] Endocrine [address] [place] [address]- Status: Pending Tuesday 9:45 AM EST ?? With: Ana José MD Where: [facility] Gastroenterology [address] [place] [address]- Status: Pending Future Orders Complete Urinalysis - Routine, Once, 12/19/23 12:25:00 EDT, Order for Today, [facility], Urine?? [facility] - Routine, Once, 01/24/24 [...] prescribing provider. What How Much When Instructions Changed Loratadine (loratadine 10 mg oral tablet) See instructions TAKE 1 TABLET BY MOUTH AT 9AM ?? Changed Loratadine (loratadine 10 mg oral tablet) 1 tab(s) Oral Daily Pickup at [facility] Unchanged Acetaminophen (acetaminophen 500 mg oral tablet) [...] INSTR:REMOVE PATCHES AFTER 12 HOURS ?? Unchanged Dimmitt (lithium 450 mg oral tablet, extended release) 1 tab(s) Oral Twice a day Unchanged MedroxyPROGESTERone (Provera 10 mg oral tablet) 1 tab(s) Oral Daily Duration: 10 Days call the office at [phone] if you do not get a menstrual [...] at Bedtime Duration: 30 Days Pharmacy Information [facility]: [address] [place] [address] [phone] Medications and Immunizations Administered Medications Given During Visit No medications given during this visit.?? Allergies (NKA means No Known Allergies) Melody Hoffman Invega cloZAPine paliperidone Common Emergency Awareness Tips [...] are strongly encouraged to quit. Please call [facility] [employer] [facility] at [phone] or 5-768-631[employer] ([phone]) or log in to [email or web address] for referrals to smoking cessation programs. ?? The National Suicide Prevention Hotline is available 18/04 if you or someone you know needs to find a reason to keep living. By calling 9-556-833-[employer] (2130) you'll be connected to a skilled, trained counselor at a crisis center in your area. [facility] [employer] Portal You can view and manage your care through the patient portal or by using a health care lonny of your choosing. Crave.com is a website that allows you to securely view your medical information including your hospital discharge summary, office visit summaries, medications and follow-up visits. You can also request appointments, renew medications, and request access to your medical information using a health care lonny of your choosing, or just ask a question. You can enroll at [email or web address] [email or web address] or register during your next office visit. [facility], in keeping with [facility] guidance, no longer requires face masks for [...] primary care provider, you may find a [facility] provider by calling [facility] at [phone]. Patient Care team information Care Team Personnel Name: Dean Rivas RN Position: [facility] RN Member Role: Primary Care Nurse Name: Jolanta Ace RN Position: [facility] RN Supv Member Role: Primary Care Nurse Name: Fatoumata Stokes DO Position: [facility] Physician - Primary Care Member Role: PCP Address: Address: [address] [place] [address] Adult [place] [address]- Name: Awilda Grider RN Position: [facility] RN Member Role: Primary Care Nurse Name: Meagan Darden RN Position: [facility] RN Member Role: Primary Care Nurse Name: Chintan Leach DO Position: [facility] Renal MD Member Role: Lifetime Consulting Physician Address: Address: [address] [place] [address] [address] [facility] [place] [address]- Name: Chandler Ye RN Position: [facility] RN Member Role: Primary Care Nurse Name: Apurva Ji RN Position: [facility] MARISABEL RN W/OE and Tasks Member Role: Primary Care Nurse Name: Cordelia Matias RN Position: [facility] AMB Nurse Member Role: Primary Care Nurse Name: Riya Moore RN Position: [facility] RN Member Role: Primary Care Nurse Name: Brenda Radha Position: [facility] Outreach Member Role: Primary Care Nurse Name: Keenan Vincent RN Position: [facility] SN RN Member Role: Primary Care Nurse Name: Sasha Patricio RN Position: [facility] RN Member Role: Primary Care Nurse Name: Virgie Angel RN Position: [facility] RN Member [...] Role: Lifetime Consulting Physician Address: Address: [address] [place] [address] [place] Care Team Related Persons Name: DORITA MCCOLLUM Address: [address] [place] [address] Name: ASIADEEDEESTEW Address: [address] [place] [address] Name: LISA PALMA Address: [address] [place] [address]
--- OUTSIDE RECORDS SUMMARY | 2024-06-11 16:55 | XMS_ITS | Continuity of Care Document ---
Author Organization [facility] Obed loyas [facility] Address [address], [address] [place] [address]- Care Team Providers Care Sparker And Patcher Name Role Phone Fatoumata Stokes DO Primary Care Physician [facility] [place]): [facility] [address], [address]th [place] [address]- Attending Physician: Paul Workman MD Referring Physician: Lyly Salcedo Allergies, Adverse Reactions, Alerts Substance Reaction Severity [...] 0 Refills, Maintenance, 02/17/24 9:30:00 EDT, Tablet, [facility], Partial fill upon patient request if [...] Refills, Soft Stop, 04/09/24 12:02:00 EDT, Tablet, [facility], Partial fill upon patient request if [...] 0 Refills, Maintenance, 03/09/24 14:42:00 EDT, Nasal [place], [facility], Partial fill upon patient request if the prescription is for a schedule II opi... Start Date: 03/09/24 Status: Ordered Lidoderm 5% film 1 patch, Topically, Daily, remove patches after 12 hours, # 30 patch, 0 Refills, Maintenance, 03/09/24 14:43:00 EDT, Film, [facility], Partial fill upon patient request if [...] Replace Required Details, Route to Pharmacy Electronically, [facility], 163, cm, 04/09/24 11:20:00 EDT, Height, [...] 0 Refills, Maintenance, 12/23/23 17:55:00 EDT, ECCapsule, [facility], Partial fill upon patient request if [...] Maintenance,07/19/23 13:53:00 EDT, Route to Pharmacy Electronically, [facility], Partial fill upon patient request if the prescription is for a schedule... Start Date: 07/19/23 Stop Date: 08/18/23 Status: Ordered Provera 10 mg oral tablet 10 mg, 1, tablet, By Mouth, Daily, call the office at [phone] if you do not get a menstrual cycle., # 10 tablet, Refills 0, Tot. Refills 0, Maintenance, 12/21/23 15:20:00 EDT, Route to Pharmacy Electronically, [facility], Partial fill u... Start Date: 12/21/23 Stop Date: 12/31/23 Status: Ordered traZODone 50 mg oral tablet 50 mg, 1, tablet, By Mouth, Daily at bedtime, # 30 tablet, Refills 0, Tot. Refills 0, Maintenance, 07/19/23 13:53:00 EDT, Route to Pharmacy Electronically, [facility], Partial fill upon patient request if the prescription is for a schedule I... Start Date: 07/19/23 Stop Date: 08/18/23 Status: Ordered Vitamin C 250 mg oral tablet See Instructions, 1 tablet By Mouth every other day with iron Daily at 9am, # 45 tablet, 11 Refills, Maintenance, 02/17/24 9:32:00 EDT, [facility], 163, cm, 02/17/24 9:01:00 EDT, Height, 96.5, kg, 02/11/24 1:23:00 EDT, Dry Weight Start Date: 02/17/24 Status: Ordered Vitamin C 250 mg oral tablet 1 tablet, By Mouth, Daily in AM, AT 9AM., # 30 tablet, 0 Refills, Maintenance, 02/02/24 15:05:00 EDT, [facility], 163, cm, 01/24/24 9:01:00 EDT, Height, 100.2, kg, 10/17/23 16:02:00 EST, Dry Weight Start Date: 02/02/24 Status: Ordered ZyPREXA 10 mg oral tablet 10 mg, 1, tablet, By Mouth, Daily at bedtime, # 30 tablet, Refills 0, Tot. Refills 0, Maintenance, 07/19/23 13:50:00 EDT, Route to Pharmacy [facility], [facility] [...] oldest [Reference Range]: 1 Height 163 cm (04/09/24 11:20 AM) Weight 102.7 kg (04/09/24 11:20 AM) Pulse Rate [55-90 bpm] 90 bpm (04/09/24 11:20 AM) Body Mass Index [18.5-24.99 kg/m2] 38.65 kg/m2 *>HHI* (04/09/24 11:20 AM) Blood Pressure [90-138/55-84 mm Hg] 134/ 85mm Hg (04/09/24 11:20 AM) Blood pressure sites Arm, left (04/09/24 11:20 AM) Dry Weight 102.7 kg (04/09/24 11:20 AM) Weight Obtained Via Standing scale (04/09/24 11:20 AM) Dry Weight Obtained Via Standing scale (04/09/24 11:20 AM) Social History Social History Type Response Smoking Status 5-9 cigarettes (betw een 1/4 to 1/2 pack)/day in last 30 days; Interested in cessation: No; Patient wants NRT during admission Yes; Other: will accept nicotine gum; entered on: 07/14/23 Sex History and physical note * Event Display: History and Physical Hospital Authored Date: [id number] [place], [place] PSYCHIATRIC HISTORY ASSESS EXAM NAME: LORETTA CELESTIN : [birth year] MR#: [id number] PCP: ADMITTED: 12/20/15 DATE OF SERVICE: 12/20/15 HPI - Hosp Psych H P Chief Complaint Pt was sent from [facility] here for hallunication History of Present Illness 24 yo AA Female with known schizophrenia was seen at [facility] for hallucination. Apparently pt has been lived in correction and sent to [facility] for acute exacerbation of her underline schizophrenia. [...] QDAY Haloperidol* (Haldol*) 5 MG PO BID Sawpit Carbonate SR* (Lithobid*) 300 MG PO QDAY liTHIum Carbonate SR* (Sawpit Carbonate SR*) 450 MG PO 4PM Discontinued Reported Medications Citalopram* (CeleXA*) 40 MG PO QDAY Benztropine* 0.5 MG PO BID buPROPion SR* 150 MG PO [id number] Trazodone* (Desyrel*) 100 MG PO HS RisperiDONE* [...] 324 MG QDAY 12/20 0900 CKD PO [place] Carbonate 300 MG QDAY 12/20 09 AC PO Polyethylene Glycol 17 GM QDAY 12/20 899 CKD PO Benztropine Mesylate 1 MG 09,12/19 1700 AC PO Docusate Sodium 100 MG 09,12/19 1700 AC PO Haloperidol 5 MG 0900,12/19 1700 AC PO [place] Carbonate 450 MG PM 12/19 1700 AC [...] fullly ambulartory Care Level Complexity of Care [id number] Comprehensive history, comprehensive examination, medical decision making of low complexity, at least 20 minutes at the bedside, patient's floor/ unit. ESigned by: YAS GARZA MD Date:12/21/15 Time:1633 / NOT FOR REDISCLOSURE WITHOUT PATIENT'S INFORMED CONSENT Admission evaluation note * Event Display: Admit Notes Authored Date: [id number] [place], [place] PSYCHIATRIC ADMISSION NOTE NAME: LORETTA CELESTIN : 89 HOSPITAL #: [id number] MR #: [id number] CHART LOC: PCP: DICTATING: MARIA R Robin MD DATE OF ADMISSION: 12/20/15 DATE OF SERVICE: 12/21/15 CHIEF COMPLAINT: This 23-year-old woman was admitted to [facility] on 12/20/15 on a Conditional [...] is living in a correction. Came to [place] with her grandmother in [...] year NAME: LORETTA CELESTIN : 89 HOSP#: [id number] MR#: [id number] CHART LOC: PCP: DICTATING: MARIA R Robin MD PSYCHIATRIC ADMISSION NOTE CONTINUED: unknown. TREATMENT PLAN: Resume outpatient medications, physical exam, collateral contact with community caregivers and social network, safety plan, aftercare plan and observe. 927 T:sn DD:[id number] TD:0745 DT:20151221 TT:0924 JOB:[id number] MICHELLE/SHANNON MARIA R Robin MD ESigned by: Date:12/22/15 Time:642 NOT FOR REDISCLOSURE WITHOUT PATIENT'S INFORMED CONSENT Patient Care team information Care Team Personnel Name: Dean Rivas RN Position: [facility] RN Member Role: Primary Care Nurse Name: Jolanta Ace RN Position: [facility] RN Supv Member Role: Primary Care Nurse Name: Fatoumata Stokes DO Position: [facility] Physician - Primary Care Member Role: PCP Address: Address: [address] [place] [address] Adult & [place] [address]- Name: Awilda Grider RN Position: [facility] RN Member Role: Primary Care Nurse Name: Meagan Darden RN Position: [facility] RN Member Role: Primary Care Nurse Name: Chintan Leach DO Position: [facility] Renal MD Member Role: Lifetime Consulting Physician Address: Address: [address] [place] [address] [address] [facility] [place], [place] [address] Name: Chandler Ye RN [facility] Care Nurse Name: Virgie Angel RN Position: [facility] RN Member [...] Role: Lifetime Consulting Physician Address: Address: [address] [place] [address]- [place] Care Team Related Persons Name: DORITA MCCOLLUM Address: [address] [place] [address] Name: STEW PECK Address: home [address] [place] [address] Name: LISA PALMA Address: home [address] [place] [address]
--- OUTSIDE RECORDS SUMMARY | 2024-06-11 16:56 | XMS_ITS | Continuity of Care Document ---
Author Organization [facility] Address [address] [place] [address]- Care Team Providers Care Help Desk Support Specialist Name Role Phone Fatoumata Stokes DO Primary Care Physician Encounter [facility] Date(s): 11/06/23 - 11/07/[address] [address]- Discharge Disposition: A-D/C Home Attending Physician: Shivani Marcelo MD Admitting Physician: Shivani Marcelo MD Referring Physician: Not on Staff, Referring [...] 0 Refills, Maintenance, 07/05/23 0:27:00 EDT, Nasal [place], Partial fill upon patient request if the [...] Maintenance,07/19/23 13:53:00 EDT, Route to Pharmacy Electronically, [facility], Partial fill upon patient request if the prescription is for a schedule... Start Date: 07/19/23 Stop Date: 08/18/23 Status: Ordered traZODone 50 mg oral tablet 50 mg, 1, tablet, By Mouth, Daily at bedtime, # 30 tablet, Refills 0, Tot. Refills 0, Maintenance, 07/19/23 13:53:00 EDT, Route to Pharmacy Electronically, [facility], Partial fill upon patient request if [...] 07/19/23 13:50:00 EDT, Route to Pharmacy Electronically, [facility], Partial fill upon patient request if [...] Exam Date Time Procedure Performing Provider Status 11/07/23 1:43 AM Chest 2 Views Frontal and Lat Sharon Perla; Auth (Verified) Notes: (Chest 2 Views Frontal and Lat) Reason For Exam: Cough RESULT: Chest 2 Views Frontal and Lat Chest 2 Views Frontal and Lat Hx of Present Illness: 32 y o female presents to ED for dizziness and chest pain. Also complaining of numbness tingling in left hands. Denies any nausea, vomiting, or SOB.A O x4; Reason: Cough; Clinical Question(s): Pneumonia COMPARISON: 10/16/2023 FINDINGS: LINES AND TUBES: None. LUNGS AND PLEURA: Clear lungs. Normal pulmonary vascularity. No pleural effusion. No pneumothorax. HEART, MEDIASTINUM AND JUANA: Heart is normal in size. Normal mediastinal and hilar contour. BONES AND SOFT TISSUES: No acute abnormality. IMPRESSION: No acute abnormality. WSN: [id number] Ordering Physician: Oscar Rankin Dictated By: Boris Singh MD Dictated Date/Time: 11/07/23 8:24 am Reviewed By: Boris Singh MD Signed By: Boris Singh MD Signed Date/Time: 11/07/23 8:24 am Transcribed By: TOMMY Transcribed Date/Time: 11/07/23 8:24 am Vital Signs Most recent to oldest [Reference Range]: 1 2 Weight 99 kg (11/07/23 12:28 AM) Oxygen Saturation [94-100 %] 98 % (11/07/23 2:34 AM) 98 % (11/06/23 10:26 PM) Pulse Rate [55-90 bpm] 72 bpm (11/07/23 2:34 AM) 77 bpm (11/06/23 10:26 PM) Blood Pressure [90-138/55-84 mm Hg] 117/ 78mm Hg (11/07/23 2:34 AM) 130/70mm Hg (11/06/23 10:26 PM) Temperature [96.8-100.4 DegF] 98.5 DegF (11/07/23 2:34 AM) 98.3 DegF (11/06/23 10:26 PM) Mode of Delivery (Oxygen) Room air (11/07/23 2:34 AM) Room air (11/06/23 10:26 PM) Temperature Route Oral (11/07/23 2:34 AM) Oral (11/06/23 10:26 PM) Social History Social History Type Response Smoking Status 5-9 cigarettes (betw een 1/4 to 1/2 pack)/day in last 30 days; Interested in cessation: No; Patient wants NRT during admission Yes; Other: will accept nicotine gum; entered on: 07/14/23 Sex History and physical note * Event Display: History and Physical Hospital Authored Date: [id number] [place], [place] PSYCHIATRIC HISTORY ASSESS EXAM NAME: LORETTA CELESTIN : [birth year] MR#: [id number] PCP: ADMITTED: 12/20/15 DATE OF SERVICE: 12/20/15 HPI - Hosp Psych H P Chief Complaint [place] [facility] [place] History of Present Illness 24 yo AA Female with known schizophrenia was seen at [facility] for hallucination. Apparently pt has been lived in retirement and sent to [facility] for acute exacerbation of [...] QDAY Haloperidol* (Haldol*) 5 MG PO BID [place]etr[place] Carbonate SR* (Lithobid*) 300 MG PO QDAY liTHIum Carbonate SR* ([place] Carbonate SR*) 450 MG PO 4PM Discontinued Reported Medications Citalopram* (CeleXA*) 40 MG PO QDAY Benztropine* 0.5 MG PO BID buPROPion SR* 150 MG PO [id number] Trazodone* (Desyrel*) 100 MG PO HS RisperiDONE* [...] 324 MG QDAY 12/20 09 CKD PO [place] Carbonate 300 MG QDAY 12/20 09 AC PO Polyethylene Glycol 17 GM QDAY 12/20 09 CKD PO Benztropine Mesylate 1 MG 0900,1700 12/19 1700 AC PO Docusate Sodium 100 MG 0900,1700 12/19 1700 AC PO Haloperidol 5 MG 0900,12/19 1700 AC PO [place] Carbonate 450 MG PM 12/19 1700 AC [...] fullly ambulartory Care Level Complexity of Care [id number] Comprehensive history, comprehensive examination, medical decision making of low complexity, at least 20 minutes at the bedside, patient's floor/ unit. ESigned by: YAS GARZA MD Date:12/21/15 Time:1633 / NOT FOR REDISCLOSURE WITHOUT PATIENT'S INFORMED CONSENT Admission evaluation note * Event Display: Admit Notes Authored Date: [id number] [place], [place] PSYCHIATRIC ADMISSION NOTE NAME: LORETTA CELESTIN : 89 HOSPITAL #: [id number] MR #: [id number] CHART LOC: PCP: DICTATING: MARIA R Robin MD DATE OF ADMISSION: 12/20/15 DATE OF SERVICE: 12/21/15 CHIEF COMPLAINT: This 23-year-old woman was admitted to [facility] on 12/20/15 on [...] year NAME: LORETTA CELESTIN : [birth year] HOSP#: [id number] MR#: [id number] CHART LOC: PCP: DICTATING: MARIA R Robin MD PSYCHIATRIC ADMISSION NOTE CONTINUED: unknown. TREATMENT PLAN: Resume outpatient medications, physical exam, collateral contact with community caregivers and social network, safety plan, aftercare plan and observe. 927 T:sn DD:[id number] TD:0745 DT:20151221 TT:0924 JOB:[id number] MICHELLE/SHANNNO MARIA R Robin MD ESigned by: Date:12/22/15 Time:0643 NOT FOR REDISCLOSURE WITHOUT PATIENT'S INFORMED CONSENT EKG study * Event Display: ECG 12-Lead Authored Date: Please click on pdf link to open report * Event Display: ECG 12-Lead Authored Date: Ventricular Rate: 59 BPM Atrial Rate: 59 BPM P-R Interval: 170 ms QRS Duration: 80 ms Q-T Interval: 414 ms QTC Calculation(Bazett): 409 ms P [place]: 58 degrees R [place]: 57 degrees T [place]: 27 degrees Poor data quality, interpretation may be adversely affected Sinus bradycardia Otherwise normal ECG When compared with ECG of 16-OCT-2023 20:09, No significant change was found Confirmed by JOSE ROBERTO CARBAJAL MD ([id number]) on 11/07/2023 10:42:15 AM [place]: JOSE ROBERTO CARBAJAL MD Note * Oscar Rankin MD: PERFORM Event Display: Patient Education Leaflets Authored Date: [id number] Uncertain Causes of Chest Pain ?? [id number] Uncertain Causes of Chest Pain Chest pain [...] leg ?? Last Reviewed Date: 2021 ?? [id number] [employer]. All rights reserved. This information is not [...] Primary Care Member Role: PCP Address: Address: [address] [place] [address] Adult & [place] [address]- Name: Awilda Grider RN Position: [facility] RN Member Role: Primary Care Nurse Name: Meagan Darden RN Position: [facility] RN Member Role: Primary Care Nurse Name: Chintan Leach DO Position: [facility] Renal MD Member Role: Lifetime Consulting Physician Address: Address: [address] [place], [place] [address] [place] [address]- Name: Chandler Ye RN [facility] Care Nurse Name: Emma Kaminski RN Position: [facility] RN Member [...] Role: Lifetime Consulting Physician Address: Address: [address] [place] [address]- [place] Care Team Related Persons Name: DORITA MCCOLLUM Address: [address] [place] [address] Name: STEW PECK Address: home [address] [facility], [address] Name: LISA PALMA Address: [address] [place] [address]
--- OUTSIDE RECORDS SUMMARY | 2024-06-11 16:56 | XMS_ITS | Continuity of Care Document ---
Author Organization [facility] Address [address] [place] [address]- Care Team Providers Care Administration Physician Name Role Phone Fatoumata Stokes DO Primary Care Physician Encounter [facility] Date(s): 04/05/24 - 05/05/24 [facility] [address] [place], [place] [address] Allergies, [...] 0 Refills, Maintenance, 02/17/24 9:30:00 EDT, Tablet, [facility], Partial fill upon patient request if [...] Refills, Soft Stop, 04/09/24 12:02:00 EDT, Tablet, [facility], Partial fill upon patient request if [...] 0 Refills, Maintenance, 03/09/24 14:42:00 EDT, Nasal [place], [facility], Partial fill upon patient request if the prescription is for a schedule II opi... Start Date: 03/09/24 Status: Ordered lidocaine 5% topical film 1 patch, Topically, Daily, INSTR:REMOVE PATCHES AFTER 12 HOURS, # 30 each, 0 Refills, Maintenance, 04/26/24 17:29:00 EDT, [facility], 30, APPLY 1 PATCH TOPICALLY DAILY,INSTR:REMOVE [...] Replace Required Details, Route to Pharmacy Electronically, [facility], 163, cm, 04/09/24 11:20:00 EDT, Height, [...] 0 Refills, Maintenance, 04/25/24 10:05:00 EDT, ECCapsule, [facility], Partial fill upon patient request if [...] By Mouth, Daily, call the office at [phone] if you do not get a menstrual cycle., # 10 tablet, Refills 0, Tot. Refills 0, Maintenance, 12/21/23 15:20:00 EDT, Route to Pharmacy Electronically, [facility], Partial fill u... Start Date: 12/21/23 Stop Date: 12/31/23 Status: Ordered traZODone 50 mg oral tablet 50 mg, 1, tablet, By Mouth, Daily at bedtime, # 30 tablet, Refills 0, Tot. Refills 0, Maintenance, 07/19/23 13:53:00 EDT, Route to Pharmacy Electronically, [facility], Partial fill upon patient request if the prescription is for a schedule I... Start Date: 07/19/23 Stop Date: 08/18/23 Status: Ordered Vitamin C 250 mg oral tablet See Instructions, 1 tablet By Mouth every other day with iron Daily at 9am, # 45 tablet, 11 Refills, Maintenance, 02/17/24 9:32:00 EDT, [facility], 163, cm, 02/17/24 9:01:00 EDT, Height, [...] Display: History and Physical Hospital Authored Date: [id number] [place], [place] PSYCHIATRIC HISTORY ASSESS EXAM NAME: LORETTA CELESTIN : 89 MR#: [id number] PCP: ADMITTED: 12/20/15 DATE OF SERVICE: 12/20/15 HPI - Hosp Psych H P Chief Complaint Pt was sent from [facility] here for hallunication History of Present Illness 24 yo AA Female with known schizophrenia was seen [place] [facility] [place]. Apparently pt has been lived in custodial and [facility] [...] QDAY Haloperidol* (Haldol*) 5 MG PO BID [place] Carbonate SR* (Lithobid*) 300 MG PO QDAY liTHIum Carbonate SR* (Cardwell Carbonate SR*) 450 MG PO 4PM Discontinued Reported Medications Citalopram* (CeleXA*) 40 MG PO QDAY Benztropine* 0.5 MG PO BID buPROPion SR* 150 MG PO [id number] Trazodone* (Desyrel*) 100 MG PO HS RisperiDONE* [...] 324 MG QDAY 12/20 0900 CKD PO [place] Carbonate 300 MG QDAY 12/20 0900 AC PO Polyethylene Glycol 17 GM QDAY 12/20 0900 CKD PO Benztropine Mesylate 1 MG 0900,1700 12/19 1700 AC PO Docusate Sodium 100 MG 0900,1700 12/19 1700 AC PO Haloperidol 5 MG 0900,1700 12/19 1700 AC PO [place] Carbonate 450 MG PM 12/19 1700 AC [...] fullly ambulartory Care Level Complexity of Care [id number] Comprehensive history, comprehensive examination, medical decision making of low complexity, at least 20 minutes at the bedside, patient's floor/ unit. ESigned by: YAS GARZA MD Date:12/21/15 Time:1633 / NOT FOR REDISCLOSURE WITHOUT PATIENT'S INFORMED CONSENT Admission evaluation note * Event Display: Admit Notes Authored Date: [id number] [place], [place] PSYCHIATRIC ADMISSION NOTE NAME: LORETTA CELESTIN : 89 HOSPITAL #: [id number] MR #: [id number] CHART LOC: PCP: DICTATING: MARIA R Robin MD DATE OF ADMISSION: 12/20/15 DATE OF SERVICE: 12/21/15 CHIEF COMPLAINT: This 23-year-old woman was admitted to [facility] on 12/20/15 on a Conditional Voluntary [...] is living in a custodial. Came to [place] with her grandmother in [...] year NAME: LORETTA CELESTIN : 89 HOSP#: [id number] MR#: [id number] CHART LOC: PCP: DICTATING: MARIA R Robin MD PSYCHIATRIC ADMISSION NOTE CONTINUED: unknown. TREATMENT PLAN: Resume outpatient medications, physical exam, collateral contact with community caregivers and social network, safety plan, aftercare plan and observe. 927 T:sn DD:20151221 TD:0745 DT:20151221 TT:0924 [id number] MICHELLE/SHANNON MARIA R Robin MD ESigned by: Date:12/22/15 Time:642 NOT FOR REDISCLOSURE WITHOUT PATIENT'S INFORMED CONSENT Patient Care team information Care Team Personnel Name: Dean Rivas RN Position: [facility] RN Member Role: Primary Care Nurse Name: Jolanta Ace RN Position: [facility] RN Supv Member Role: Primary Care Nurse Name: Fatoumata Stokes DO Position: [facility] Physician - Primary Care Member Role: PCP Address: Address: [address] [place] [address]- [place] Name: Awilda Grider RN Position: [facility] RN Member Role: Primary Care Nurse Name: Meagan Darden RN Position: [facility] RN Member Role: Primary Care Nurse Name: Chintan Leach DO Position: [facility] Renal MD Member Role: Lifetime Consulting Physician Address: Address: [address] [place] [address] [address] [facility] [place] [address]- Name: Chandler Ye RN Position: [facility] RN Member Role: Primary Care Nurse Name: Apurva Ji RN Position: [facility] ED RN W/OE and Tasks Member Role: Primary Care Nurse Name: Cordelia Matias RN Position: [facility] AMB Nurse Member Role: Primary Care Nurse Name: Riya Moore RN Position: [facility] RN Member Role: Primary Care Nurse Name: Radha Gutierrez Position: [facility] Outreach Member Role: Primary Care Nurse Name: Keenan Vincent RN Position: [facility] SN RN Member Role: Primary Care Nurse Name: Sasha Patricio RN Position: [facility] RN Member Role: Primary Care Nurse Name: Virgie Angel RN Position: [facility] RN Member Role: Primary Care Nurse Name: Malu Palomo Position: [facility] RN Member Role: Primary Care Nurse Name: Azeb Gusman RN Position: [facility] RN Member Role: Primary Care Nurse Name: Asher Diaz RN Position: [facility] RN Member Role: Primary Care Nurse Name: Kim Cornell RN Position: [facility] RN Member Role: Primary Care Nurse Name: Meredith Martinez RN Position: [facility] RN Member Role: Primary Care Nurse Name: Anika Gotti RN Position: [facility] RN Member Role: Primary Care Nurse Name: Kvng Tompkins RN Position: [facility] ED RN W/OE and Tasks Member Role: Primary Care Nurse Name: Rafiq Muñoz RN Position: [facility] RN Member Role: Primary Care Nurse Name: Justina Walker RN Position: [facility] RN Member Role: Primary Care Nurse Name: Ivone Hidalgo RN Position: [facility] RN Member Role: Primary Care Nurse Name: Mazin Penn MD Position: [facility] Physician - Behavioral Health Member Role: Lifetime Consulting Physician Address: Address: [address] [place] [address]- [place] Care Team Related Persons Name: DORITA MCCOLLUM Address: [address] [place] [address] Name: STEW PECK Address: [address] [place] [address] Name: LISA PALMA Address: [address] [place] [address]
--- OUTSIDE RECORDS SUMMARY | 2024-06-11 16:56 | XMS_ITS | Continuity of Care Document ---
Author Organization [facility] Address [address] [place] [address]- Care Team Providers Care Cigar Packer And Sorter Name Role Phone Fatoumata Stokes DO Primary Care Physician [facility]12[facility]24 - 04/11/24 [facility] [address] [place], [place] [address] Allergies, Adverse Reactions, Alerts Substance Reaction Severity [...] 0 Refills, Maintenance, 02/17/24 9:30:00 EDT, Tablet, [facility], Partial fill upon patient request if [...] Refills, Soft Stop, 04/09/24 12:02:00 EDT, Tablet, [facility], Partial fill upon patient request if [...] 0 Refills, Maintenance, 03/09/24 14:42:00 EDT, Nasal [place], [facility], Partial fill upon patient request if the prescription is for a schedule II opi... Start Date: 03/09/24 Status: Ordered Lidoderm 5% film 1 patch, Topically, Daily, remove patches after 12 hours, # 30 patch, 0 Refills, Maintenance, 03/09/24 14:43:00 EDT, Film, [facility], Partial fill upon patient [...] Replace Required Details, Route to Pharmacy Electronically, [facility], 163, cm, 04/09/24 11:20:00 EDT, Height, [...] 0 Refills, Maintenance, 12/23/23 17:55:00 EDT, ECCapsule, [facility], Partial fill upon patient request if [...] By Mouth, Daily, call the office at [phone] if you do not get a menstrual cycle., # 10 tablet, Refills 0, Tot. Refills 0, Maintenance, 12/21/23 15:20:00 EDT, Route to Pharmacy Electronically, [facility], Partial fill u... Start Date: 12/21/23 Stop Date: 12/31/23 Status: Ordered traZODone 50 mg oral tablet 50 mg, 1, tablet, By Mouth, Daily at bedtime, # 30 tablet, Refills 0, Tot. Refills 0, Maintenance, 07/19/23 13:53:00 EDT, Route to Pharmacy Electronically, [facility], Partial fill upon patient request if the prescription is for a schedule I... Start Date: 07/19/23 Stop Date: 08/18/23 Status: Ordered Vitamin C 250 mg oral tablet See Instructions, 1 tablet By Mouth every other day with iron Daily at 9am, # 45 tablet, 11 Refills, Maintenance, 02/17/24 9:32:00 EDT, [facility], 163, cm, 02/17/24 9:01:00 EDT, Height, 96.5, kg, 02/11/24 1:23:00 EDT, Dry Weight Start Date: 02/17/24 Status: Ordered Vitamin C 250 mg oral tablet 1 tablet, By Mouth, Daily in AM, AT 9AM., # 30 tablet, 0 Refills, Maintenance, 02/02/24 15:05:00 EDT, [facility], 163, cm, 01/24/24 9:01:00 EDT, Height, [...] Display: History and Physical Hospital Authored Date: [id number] [place], [place] PSYCHIATRIC HISTORY ASSESS EXAM NAME: LORETTA CELESTIN : 89 MR#: [id number] PCP: ADMITTED: 12/20/15 DATE OF SERVICE: 12/20/15 HPI - Hosp Psych H P Chief Complaint Pt was sent from [facility] here for hallunication History of Present Illness 24 yo AA Female with known schizophrenia was seen at [facility] for hallucination. Apparently pt has been lived in fci and sent to [facility] for acute exacerbation of her underline schizophrenia. [...] QDAY Haloperidol* (Haldol*) 5 MG PO BID [place] Carbonate SR* (Lithobid*) 300 MG PO QDAY liTHIum Carbonate SR* ([place] Carbonate SR*) 450 MG PO 4PM Discontinued Reported Medications Citalopram* (CeleXA*) 40 MG PO QDAY Benztropine* 0.5 MG PO BID buPROPion SR* 150 MG PO [id number] Trazodone* (Desyrel*) 100 MG PO HS RisperiDONE* [...] 324 MG QDAY 12/20 0900 CKD PO [place] Carbonate 300 MG QDAY 12/20 0900 AC PO Polyethylene Glycol 17 GM QDAY 12/20 0900 CKD PO Benztropine Mesylate 1 MG 0900,1700 12/19 1700 AC PO Docusate Sodium 100 MG 0900,1700 12/19 1700 AC PO Haloperidol 5 MG 0900,1700 12/19 1700 AC PO [place] Carbonate 450 MG PM 12/19 1700 AC [...] fullly ambulartory Care Level Complexity of Care [id number] Comprehensive history, comprehensive examination, medical decision making of low complexity, at least 20 minutes at the bedside, patient's floor/ unit. ESigned by: YAS GARZA MD Date:12/21/15 Time:1633 / NOT FOR REDISCLOSURE WITHOUT PATIENT'S INFORMED CONSENT Admission evaluation note * Event Display: Admit Notes Authored Date: [id number] [place], [place] PSYCHIATRIC ADMISSION NOTE NAME: LORETTA CELESTIN : 89 HOSPITAL #: [id number] MR #: [id number] CHART LOC: PCP: DICTATING: MARIA R Robin MD DATE OF ADMISSION: 12/20/15 DATE OF SERVICE: 12/21/15 CHIEF COMPLAINT: This 23-year-old woman was admitted to [facility] on 12/20/15 on a Conditional Voluntary [...] is living in a fci. Came to [place] with her grandmother in [...] year NAME: LORETTA CELESTIN : 89 HOSP#: [id number] MR#: [id number] CHART LOC: PCP: DICTATING: MARIA R Robin MD PSYCHIATRIC ADMISSION NOTE CONTINUED: unknown. TREATMENT PLAN: Resume outpatient medications, physical exam, collateral contact with community caregivers and social network, safety plan, aftercare plan and observe. 927 T:sn DD:[id number] TD:0745 DT:20151221 TT:0924 JOB:[id number] MICHELLE/SHANNON MARIA R Robin MD ESigned by: Date:12/22/15 Time:642 NOT FOR REDISCLOSURE WITHOUT PATIENT'S INFORMED CONSENT Patient Care team information Care Team Personnel Name: Rob ROTHMAN, Dean Position: S RN Member Role: Primary Care Nurse Name: Jolanta Ace RN Position: [facility] RN Supv Member Role: Primary Care Nurse Name: Fatoumata Stoeks DO Position: [facility] Physician - Primary Care Member Role: PCP Address: Address: [address] [place] [address] Adult [place] [address]- [place] Name: Awilda Grider RN Position: [facility] RN Member Role: Primary Care Nurse Name: Meagan Darden RN Position: [facility] RN Member Role: Primary Care Nurse Name: Chintan Leach DO Position: [facility] Renal MD Member Role: Lifetime Consulting Physician Address: Address: [address] [place] [address] [address] [facility] [place] [address]- [place] Name: Chandler Ye RN [facility] Care Nurse Name: Kvng Tompkins RN Position: [facility] MARISABEL RN W/OE and Tasks Member Role: Primary Care Nurse Name: Rafiq Muñoz RN Position: [facility] [...] Role: Lifetime Consulting Physician Address: Address: [address] [place] [address]- Care Team Related Persons Name: DORITA MCCOLLUM Address: [address] [place] [address] Name: STEW PECK Address: home [address] [place] [address] Name: LISA PLAMA Address: home [address] [place] [address]
--- OUTSIDE RECORDS SUMMARY | 2024-06-11 16:56 | XMS_ITS | Continuity of Care Document ---
Author Organization [facility] Address [address] [place] [address]- Care Team Providers Care Phlebotomy Specialist Name Role Phone Fatoumata Stokes DO Primary Care Physician ( [phone] [facility]24 - 03/03/24 [facility] [address] [place], [place] [address] Allergies, Adverse Reactions, Alerts Substance Reaction [...] 0 Refills, Maintenance, 02/17/24 9:30:00 EDT, Tablet, [facility], Partial fill upon patient request if [...] Refills, Soft Stop, 12/21/23 15:20:00 EDT, Tablet, [facility], Partial fill upon patient request if [...] 0 Refills, Maintenance, 07/05/23 0:27:00 EDT, Nasal [place], Partial fill upon patient request if the [...] 02/13/24 16:31:00 EDT, Route to Pharmacy Electronically, [facility], 163, cm, 02/11/24 1:23:00 EDT, Height, [...] 0 Refills, Maintenance, 12/23/23 17:55:00 EDT, ECCapsule, [facility], Partial fill upon patient request if [...] Maintenance,07/19/23 13:53:00 EDT, Route to Pharmacy Electronically, [facility], Partial fill upon patient request if the prescription is for a schedule... Start Date: 07/19/23 Stop Date: 08/18/23 Status: Ordered Provera 10 mg oral tablet 10 mg, 1, tablet, By Mouth, Daily, call the office at [phone] if you do not get a menstrual cycle., # 10 tablet, Refills 0, Tot. Refills 0, Maintenance, 12/21/23 15:20:00 EDT, Route to Pharmacy Electronically, [facility], Partial fill u... Start Date: 12/21/23 Stop Date: 12/31/23 Status: Ordered traZODone 50 mg oral tablet 50 mg, 1, tablet, By Mouth, Daily at bedtime, # 30 tablet, Refills 0, Tot. Refills 0, Maintenance, 07/19/23 13:53:00 EDT, Route to Pharmacy Electronically, [facility], Partial fill upon patient request if the prescription is for a schedule I... Start Date: 07/19/23 Stop Date: 08/18/23 Status: Ordered Vitamin C 250 mg oral tablet See Instructions, 1 tablet By Mouth every other day with iron Daily at 9am, # 45 tablet, 11 Refills, Maintenance, 02/17/24 9:32:00 EDT, [facility], 163, cm, 02/17/24 9:01:00 EDT, Height, 96.5, kg, 02/11/24 1:23:00 EDT, Dry Weight Start Date: 02/17/24 Status: Ordered Vitamin C 250 mg oral tablet 1 tablet, By Mouth, Daily in AM, AT 9AM., # 30 tablet, 0 Refills, Maintenance, 02/02/24 15:05:00 EDT, [facility], 163, cm, 01/24/24 9:01:00 EDT, Height, 100.2, kg, 10/17/23 16:02:00 EST, Dry Weight Start Date: 02/02/24 Status: Ordered ZyPREXA 10 mg oral tablet 10 mg, 1, tablet, By Mouth, Daily at bedtime, # 30 tablet, Refills 0, Tot. Refills 0, Maintenance, 07/19/23 13:50:00 EDT, Route to Pharmacy Electronically, [facility], Partial fill upon patient request if [...] Display: History and Physical Hospital Authored Date: [id number] [place], [place] PSYCHIATRIC HISTORY ASSESS EXAM NAME: LORETTA CELESTIN : [birth year] MR#: [id number] PCP: ADMITTED: 12/20/15 DATE OF SERVICE: 12/20/15 HPI - Hosp Psych H P Chief Complaint Pt was sent from [facility] here for hallunication History of Present Illness 24 yo AA Female with known schizophrenia was seen at [facility] for hallucination. Apparently pt has been lived in snf and sent [place] [facility] [...] QDAY Haloperidol* (Haldol*) 5 MG PO BID [place] Carbonate SR* (Lithobid*) 300 MG PO QDAY liTHIum Carbonate SR* ([place] Carbonate SR*) 450 MG PO 4PM Discontinued Reported Medications Citalopram* (CeleXA*) 40 MG PO QDAY Benztropine* 0.5 MG PO BID buPROPion SR* 150 MG PO [id number] Trazodone* (Desyrel*) 100 MG PO HS RisperiDONE* [...] 324 MG QDAY 12/20 0900 CKD PO [place] Carbonate 300 MG QDAY 12/20 0900 AC PO Polyethylene Glycol 17 GM QDAY 12/20 0900 CKD PO Benztropine Mesylate 1 MG 0900,1700 12/19 1700 AC PO Docusate Sodium 100 MG 0900,1700 12/19 1700 AC PO Haloperidol 5 MG 0900,1700 12/19 1700 AC PO [place] Carbonate 450 MG PM 12/19 1700 AC [...] fullly ambulartory Care Level Complexity of Care [id number] Comprehensive history, comprehensive examination, medical decision making of low complexity, at least 20 minutes at the bedside, patient's floor/ unit. ESigned by: YAS GARZA MD Date:12/21/15 Time:1633 / NOT FOR REDISCLOSURE WITHOUT PATIENT'S INFORMED CONSENT Admission evaluation note * Event Display: Admit Notes Authored Date: [place], [place] PSYCHIATRIC ADMISSION NOTE NAME: LORETTA CELESTIN : 89 HOSPITAL #: [id number] MR #: [id number] CHART LOC: PCP: DICTATING: MARIA R Robin MD DATE OF ADMISSION: 12/20/15 DATE OF SERVICE: 12/21/15 CHIEF COMPLAINT: This 23-year-old woman was admitted to [facility] at on 12/20/15 on a Conditional Voluntary application [...] is living in a snf. Came to [place] with her grandmother in [...] year NAME: LORETTA CELESTIN : 89 HOSP#: [id number] MR#: [id number] CHART LOC: PCP: DICTATING: MARIA R Robin MD PSYCHIATRIC ADMISSION NOTE CONTINUED: unknown. TREATMENT PLAN: Resume outpatient medications, physical exam, collateral contact with community caregivers and social network, safety plan, aftercare plan and observe. 927 T:sn DD:[id number] TD:0745 DT:20151221 TT:0924 [id number] MICHELLE/SHANNON MARIA R Robin MD ESigned by: Date:12/22/15 Time:642 NOT FOR REDISCLOSURE WITHOUT PATIENT'S INFORMED CONSENT Patient Care team information Care Team Personnel Name: Dean Rivas RN Position: S RN Member Role: Primary Care Nurse Name: Jolanta Ace RN Position: [facility] Supv Member Role: Primary Care Nurse Name: Fatoumata Stokes DO Position: S Physician - Primary Care Member Role: PCP Address: Address: [address] [place] [address] Adult & Pediatric Medicine [address] Name: Awilda Grider RN Position: [facility] RN Member Role: Primary Care Nurse Name: Meagan Darden RN Position: [facility] RN Member Role: Primary Care Nurse Name: Chintan Leach DO Position: [facility] Renal MD Member Role: Lifetime Consulting Physician Address: Address: [address] [place], [place] [address] [place] [address]- Name: Chandler Ye RN Position: [facility] RN Member Role: Primary Care Nurse Name: Apurva Ji RN Position: [facility] ED RN W/OE and Tasks Member Role: Primary Care Nurse Name: Cordelia Matias RN Position: [facility] AMB Nurse Member Role: Primary Care Nurse Name: Riya Moore RN Position: [facility] RN Member Role: Primary Care Nurse Name: Radha Gutierrez Position: [facility] Outreach Member Role: Primary Care Nurse Name: Keenan Vincent RN Position: [facility] SN RN Member Role: Primary Care Nurse Name: Sasha Patricio RN Position: [facility] RN Member Role: Primary Care Nurse Name: Virgie Angel RN Position: [facility] RN Member Role: Primary Care Nurse Name: Malu Palomo Position: [facility] RN Member Role: Primary Care Nurse Name: Azeb Gusman RN Position: [facility] RN Member Role: Primary Care Nurse Name: Asher Diaz RN Position: [facility] RN Member Role: Primary Care Nurse Name: Kim Cornell RN Position: [facility] RN Member Role: Primary Care Nurse Name: Meredith Martinez RN Position: [facility] RN Member Role: Primary Care Nurse Name: Anika Gotti RN Position: [facility] RN Member Role: Primary Care Nurse Name: Kvng Tompkins RN Position: [facility] MARISABEL RN W/OE and Tasks Member Role: Primary Care Nurse Name: Rafiq Muñoz RN Position: [facility] RN Member Role: Primary Care Nurse Name: Justina Walker RN Position: [facility] RN Member Role: Primary Care Nurse Name: Ivone Hidalgo RN Position: [facility] RN Member Role: Primary Care Nurse Name: Mazin Penn MD Position: [facility] Physician - [facility] Member Role: Lifetime Consulting Physician Address: Address: [address] [place] [address]- [place] Care Team Related Persons Name: VIRIDIANA MCCOLLUMOPATRA Address: [address] [place] [address] Name: STEW PECK Address: home [address] [place] [address] Name: LISA PALMA Address: [address] [place] [address]
--- OUTSIDE RECORDS SUMMARY | 2024-06-11 16:56 | XMS_ITS | Continuity of Care Document ---
Author Organization [facility] Address [address] [place] [address]- Care Team Providers Care Land Sales Agent Name Role Phone Fatoumata Stokes DO Primary Care Physician [facility]): 01/25/24 - 02/24/24 [facility] [address] [place], [place] [address] Allergies, Adverse Reactions, Alerts Substance [...] 0 Refills, Maintenance, 02/17/24 9:30:00 EDT, Tablet, [facility], Partial fill upon [...] Refills, Soft Stop, 12/21/23 15:20:00 EDT, Tablet, [facility], Partial fill upon [...] 0 Refills, Maintenance, 07/05/23 0:27:00 EDT, Nasal [place], Partial fill upon patient request if the [...] 02/13/24 16:31:00 EDT, Route to Pharmacy Electronically, [facility], 163, cm, 02/11/24 1:23:00 EDT, Height, [...] 0 Refills, Maintenance, 12/23/23 17:55:00 EDT, ECCapsule, [facility], Partial fill upon patient request [...] By Mouth, Daily, call the office at [phone] if you do not get a menstrual cycle., # 10 tablet, Refills 0, Tot. Refills 0, Maintenance, 12/21/23 15:20:00 EDT, Route to Pharmacy Electronically, [facility], Partial fill u... Start Date: 12/21/23 [...] tablet, 11 Refills, Maintenance, 02/17/24 9:32:00 EDT, [facility], 163, cm, 02/17/24 9:01:00 EDT, Height, 96.5, kg, 02/11/24 1:23:00 EDT, Dry Weight Start Date: 02/17/24 Status: Ordered Vitamin C 250 mg oral tablet 1 tablet, By Mouth, Daily in AM, AT 9AM., # 30 tablet, 0 Refills, Maintenance, 02/02/24 15:05:00 EDT, [facility], 163, cm, 01/24/24 9:01:00 EDT, Height, 100.2, kg, 10/17/23 16:02:00 EST, Dry Weight Start Date: 02/02/24 Status: Ordered ZyPREXA 10 mg oral tablet 10 mg, 1, tablet, By Mouth, Daily at bedtime, # 30 tablet, Refills 0, Tot. Refills 0, Maintenance, 07/19/23 13:50:00 EDT, Route to Pharmacy Electronically, [facility], [...] Display: History and Physical Hospital Authored Date: [id number] [place], [place] PSYCHIATRIC HISTORY ASSESS EXAM NAME: LORETTA CELESTIN : 89 MR#: [id number] PCP: ADMITTED: 12/20/15 DATE OF SERVICE: 12/20/15 HPI - Hosp Psych H P Chief Complaint Pt was sent from [facility] here for hallunication History of Present Illness 24 yo AA Female with known schizophrenia was seen at [facility] for hallucination. Apparently pt has been lived in custodial and [facility] to [facility] QDAY Haloperidol* (Haldol*) 5 MG PO BID [place] Carbonate SR* (Lithobid*) 300 MG PO QDAY liTHIum Carbonate SR* ([place] Carbonate SR*) 450 MG PO 4PM Discontinued Reported Medications Citalopram* (CeleXA*) 40 MG PO QDAY Benztropine* 0.5 MG PO BID buPROPion SR* 150 MG PO [id number] Trazodone* (Desyrel*) 100 MG PO HS RisperiDONE* [...] 324 MG QDAY 12/20 09 CKD PO [place] Carbonate 300 MG QDAY 12/20 0900 AC PO Polyethylene Glycol 17 GM QDAY 12/20 09 CKD PO Benztropine Mesylate 1 MG 0900,1700 12/19 1700 AC PO Docusate Sodium 100 MG 0900,1700 12/19 1700 AC PO Haloperidol 5 MG 0900,1700 12/19 1700 AC PO [place] Carbonate 450 MG PM 12/19 1700 AC [...] fullly ambulartory Care Level Complexity of Care [id number] Comprehensive history, comprehensive examination, medical decision making of low complexity, at least 20 minutes at the bedside, patient's floor/ unit. ESigned by: YAS GARZA MD Date:12/21/15 Time:1633 / NOT FOR REDISCLOSURE WITHOUT PATIENT'S INFORMED CONSENT Admission evaluation note * Event Display: Admit Notes Authored Date: [place], [place] PSYCHIATRIC ADMISSION NOTE NAME: LORETTA CELESTIN : 89 HOSPITAL #: [id number] MR #: [id number] CHART LOC: PCP: DICTATING: MARIA R Robin MD DATE OF ADMISSION: 12/20/15 DATE OF SERVICE: 12/21/15 CHIEF COMPLAINT: This 23-year-old woman was admitted to [facility] on 12/20/15 on a Conditional [...] is living in a custodial. Came to [place] with her grandmother in [...] year NAME: LORETTA CELESTIN : 89 HOSP#: [id number] MR#: [id number] CHART LOC: PCP: DICTATING: MARIA R Robin MD PSYCHIATRIC ADMISSION NOTE CONTINUED: unknown. TREATMENT PLAN: Resume outpatient medications, physical exam, collateral contact with community caregivers and social network, safety plan, aftercare plan and observe. 927 T:sn DD:20151221 TD:0745 DT:20151221 TT:0924 [id number] MICHELLE/SHANNON MARIA R Robin MD ESigned by: [...] Care Member Role: PCP Address: Address: [address] [place] [address] Adult & Pediatric Medicine [address] Name: Awilda Grider RN Position: [facility] RN Member Role: Primary Care Nurse Name: Meagan Darden RN Position: [facility] RN Member Role: Primary Care Nurse Name: Chintan Leach DO Position: [facility] Renal MD Member Role: Lifetime Consulting Physician Address: Address: [address] [place], [place] [address] [place] [address]- [place] Name: Chandler Ye RN Position: [facility] RN Member Role: Primary Care Nurse Name: Apurva Ji RN Position: [facility] ED RN W/OE and Tasks Member Role: Primary Care Nurse Name: Cordelia Matias RN Position: [facility] AMB Nurse Member Role: Primary Care Nurse Name: Riya Moore RN Position: [facility] RN Member Role: Primary Care Nurse Name: Radha Gutierrez Position: [facility] Outreach Member Role: Primary Care Nurse Name: Keenan Vincent RN Position: [facility] SN RN Member Role: Primary Care Nurse Name: Sasha Patricio RN Position: [facility] RN Member Role: Primary Care Nurse Name: Virgie Angel Position: [facility] RN Member Role: Primary Care Nurse Name: Malu Palomo Position: [facility] RN Member Role: Primary Care Nurse Name: Azeb Gusman RN Position: [facility] RN Member Role: Primary Care Nurse Name: Asher Diaz RN Position: [facility] RN Member Role: Primary Care Nurse Name: Kim Cornell RN Position: [facility] RN Member Role: Primary Care Nurse Name: Meredith Martinez RN Position: [facility] RN Member Role: Primary Care Nurse Name: Anika Gotti RN Position: [facility] RN Member Role: Primary Care Nurse Name: Kvng Tompkins RN Position: [facility] MARISABEL RN W/OE and Tasks Member Role: Primary Care Nurse Name: Rafiq Muñoz RN Position: [facility] RN Member Role: Primary Care Nurse Name: Justina Walker RN Position: [facility] RN Member Role: Primary Care Nurse Name: Ivone Hidalgo RN Position: [facility] RN Member Role: Primary Care Nurse Name: Mazin Penn MD Position: [facility] Physician - [facility] Member Role: Lifetime Consulting Physician Address: Address: [address] [place] [address]- [place] Care Team Related Persons Name: VIRIDIANA MCCOLLUMOPATRA Address: [address] [place] [address] Name: STEW PECK Address: [address] [place] [address] Name: LISA PALMA Address: [address] [place] [address]
--- OUTSIDE RECORDS SUMMARY | 2024-06-11 16:56 | XMS_ITS | Continuity of Care Document ---
Author Organization [facility] Address [address] [place] [address]- Care Team Providers Care Estimator Name Role Phone Fatoumata Stokes DO Primary Care Physician [facility]24 - 03/16/24 [facility] [address], [place] [address] Attending Physician: Fatoumata Stokes [...] 0 Refills, Maintenance, 02/17/24 9:30:00 EDT, Tablet, [facility], Partial fill upon patient request if [...] Refills, Soft Stop, 12/21/23 15:20:00 EDT, Tablet, [facility], Partial fill upon patient request if [...] 0 Refills, Maintenance, 03/09/24 14:42:00 EDT, Nasal [place], [facility], Partial fill upon patient request if the prescription is for a schedule II opi... Start Date: 03/09/24 Status: Ordered Lidoderm 5% film 1 patch, Topically, Daily, remove patches after 12 hours, # 30 patch, 0 Refills, Maintenance, 03/09/24 14:43:00 EDT, Film, [facility], Partial fill upon patient request if the prescription is for a schedule II opioid drug., 1 patch Topically... Start Date: 03/09/24 Status: Ordered lithium 450 mg oral tablet, extended release 1 tablet = 450 mg, By Mouth, 2 times a day, # 120 tablet, 0 Refills, Maintenance, 12/14/23 17:32:00EST, ER Tablet, Partial fill upon patient request if the prescription is for a schedule II opioid drug. Start Date: 09/08/23 Status: Ordered loratadine 10 mg oral tablet 1, tablet, By Mouth, Daily, AT 9AM., # 30 tablet, Refills 0, Maintenance, 02/13/24 16:31:00 EDT, Route to Pharmacy Electronically, [facility], 163, cm, 02/11/24 1:23:00 EDT, Height, [...] 0 Refills, Maintenance, 12/23/23 17:55:00 EDT, ECCapsule, [facility], Partial fill upon patient request if [...] By Mouth, Daily, call the office at [phone] if you do not get a menstrual cycle., # 10 tablet, Refills 0, Tot. Refills 0, Maintenance, 12/21/23 15:20:00 EDT, Route to Pharmacy Electronically, [facility], Partial fill u... Start Date: 12/21/23 Stop Date: 12/31/23 Status: Ordered traZODone 50 mg oral tablet 50 mg, 1, tablet, By Mouth, Daily at bedtime, # 30 tablet, Refills 0, Tot. Refills 0, Maintenance, 07/19/23 13:53:00 EDT, Route to Pharmacy Electronically, [facility], Partial fill upon patient request if the prescription is for a schedule I... Start Date: 07/19/23 Stop Date: 08/18/23 Status: Ordered Vitamin C 250 mg oral tablet See Instructions, 1 tablet By Mouth every other day with iron Daily at 9am, # 45 tablet, 11 Refills, Maintenance, 02/17/24 9:32:00 EDT, [facility], 163, cm, 02/17/24 9:01:00 EDT, Height, [...] oldest [Reference Range]: 1 Height 168 cm (03/09/24 2:12 PM) Weight 101 kg (03/09/24 2:12 PM) Oxygen Saturation [94-100 %] 100 % (03/09/24 2:12 PM) Pulse Rate [55-90 bpm] 86 bpm (03/09/24 2:12 PM) Body Mass Index [18.5-24.99 kg/m2] 35.79 kg/m2 *>HHI* (03/09/24 2:12 PM) Blood Pressure [90-138/55-84 mm Hg] 130/ 88mm Hg (03/09/24 2:12 PM) Mode of Delivery (Oxygen) Room air (03/09/24 2:12 PM) Blood pressure sites Arm, right (03/09/24 2:12 PM) Dry Weight 101 kg (03/09/24 2:12 PM) Weight Obtained Via Standing scale (03/09/24 2:12 PM) Social History Social History Type Response Smoking Status 5-9 cigarettes (betw een 1/4 to 1/2 pack)/day in last 30 days; Interested in cessation: No; Patient wants NRT during admission Yes; Other: will accept nicotine gum; entered on: 07/14/23 Sex History and physical note * Event Display: History and Physical Hospital Authored Date: [id number] [place], [place] PSYCHIATRIC HISTORY ASSESS EXAM NAME: LORETTA CELESTIN : 89 MR#: [id number] PCP: ADMITTED: 12/20/15 DATE OF SERVICE: 12/20/15 HPI - Hosp Psych H P Chief Complaint Pt was sent [place] [facility] here for hallunication History of Present Illness 24 yo AA Female with known schizophrenia was seen at [facility] ER for hallucination. Apparently pt has been lived in fdc and sent to [facility] for acute exacerbation of her underline schizophrenia. [...] Haloperidol* (Haldol*) 5 MG PO BID [place] Carbonate SR* (Lithobid*) 300 MG PO QDAY liTHIum Carbonate SR* ([place] Carbonate SR*) 450 MG PO 4PM Discontinued Reported Medications Citalopram* (CeleXA*) 40 MG PO QDAY Benztropine* 0.5 MG PO BID buPROPion SR* 150 MG PO [id number] Trazodone* (Desyrel*) 100 MG PO HS RisperiDONE* [...] 324 MG QDAY 12/20 899 CKD PO [place] Carbonate 300 MG QDAY 12/20 899 AC PO Polyethylene Glycol 17 GM QDAY 12/20 899 CKD PO Benztropine Mesylate 1 MG 09,12/19 1700 AC PO Docusate Sodium 100 MG 0900,12/19 1700 AC PO Haloperidol 5 MG 09,12/19 1700 AC PO [place] Carbonate 450 MG PM 12/19 1700 AC [...] fullly ambulartory Care Level Complexity of Care [id number] Comprehensive history, comprehensive examination, medical decision making of low complexity, at least 20 minutes at the bedside, patient's floor/ unit. ESigned by: YAS GARZA MD Date:12/21/15 Time:1633 / NOT FOR REDISCLOSURE WITHOUT PATIENT'S INFORMED CONSENT Admission evaluation note * Event Display: Admit Notes Authored Date: [id number] [place], [place] PSYCHIATRIC ADMISSION NOTE NAME: LORETTA CELESTIN : 89 HOSPITAL #: [id number] MR #: [id number] CHART LOC: PCP: DICTATING: MARIA R Robin MD DATE OF ADMISSION: 12/20/15 DATE OF SERVICE: 12/21/15 CHIEF COMPLAINT: This 23-year-old woman was admitted to [facility] on 12/20/15 on a Conditional Voluntary [...] is living in a fdc. Came to [place] with her grandmother in [...] year NAME: LORETTA CELESTIN : 89 HOSP#: [id number] MR#: [id number] CHART LOC: PCP: DICTATING: MARIA R Robin MD PSYCHIATRIC ADMISSION NOTE CONTINUED: unknown. TREATMENT PLAN: Resume outpatient medications, physical exam, collateral contact with community caregivers and social network, safety plan, aftercare plan and observe. 927 T:sn DD:[id number] TD:0745 DT:20151221 TT:0924 JOB:[id number] MICHELLE/SHANNON MARIA R Robin MD ESigned by: Date:12/22/15 Time:642 NOT FOR REDISCLOSURE WITHOUT PATIENT'S INFORMED CONSENT Patient Care team information Care Team Personnel Name: Dean Rivas RN Position: [facility] RN Member Role: Primary Care Nurse Name: Jolanta Ace RN Position: [facility] RN Supv Member Role: Primary Care Nurse Name: Fatoumata Stokes DO Position: [facility] Physician - Primary Care Member Role: PCP Address: Address: [address] [place] [address] Adult & [place] [address]- Name: Awilda Grider RN Position: [facility] RN Member Role: Primary Care Nurse Name: Meagan Darden RN Position: [facility] RN Member Role: Primary Care Nurse Name: Chintan Leach DO Position: [facility] Renal MD Member Role: Lifetime Consulting Physician Address: Address: [address] [place] [address] [address] [facility] [place], [place] [address] Name: Chandler Ye RN [facility] Name: Virgie Angel RN Position: [facility] RN Member Role: Primary Care Nurse Name: Malu Palomo Position: [facility] RN Member Role: Primary Care Nurse Name: Azeb Gusman RN Position: [facility] RN Member Role: Primary Care Nurse Name: Kim Cornell RN Position: [facility] RN Member Role: Primary Care Nurse Name: Meredith Martinez RN Position: [facility] RN Member Role: Primary Care Nurse Name: Anika Gotti RN Position: [facility] RN Member Role: Primary Care Nurse Name: Kvng Tompkins RN Position: [facility] ED RN [...] Role: Lifetime Consulting Physician Address: Address: [address] [place] [address] [place] Care Team Related Persons Name: DORITA MCCOLLUM Address: home [address] [place] [address] Name: STEW PECK Address: home [address] [place] [address] Name: LISA PALMA Address: [address] [place] [address]
--- OUTSIDE RECORDS SUMMARY | 2024-06-11 16:57 | XMS_ITS | Continuity of Care Document ---
Author Organization [facility] Address [address] [place] [address]- Care Team Providers Care Mine Wedge Sawyer Name Role Phone Fatoumata Stokes DO Primary Care Physician [facility]): 12/27/23 - 01/26/24 [facility] [address] [place], [place] [address] Allergies, Adverse Reactions, Alerts Substance Reaction [...] Refills, Soft Stop, 12/21/23 15:20:00 EDT, Tablet, [facility], Partial fill upon patient request if [...] Refills, Maintenance, 07/05/23 0:27:00 EDT, Nasal [place], Partial fill upon patient request if the [...] 0 Refills, Maintenance, 12/23/23 17:55:00 EDT, ECCapsule, [facility], Partial fill upon patient request if [...] By Mouth, Daily, call the office at [phone] if you do not get a menstrual [...] tablet, 0 Refills, Maintenance, 01/26/24 9:59:00 EDT, [facility], 163, cm, 01/24/24 9:01:00 EDT, Height, 100.2, kg, 10/17/23 16:02:00 EST, DryWeight Start Date: 01/26/24 Status: Ordered ZyPREXA 10 mg oral tablet 10 mg, 1, tablet, By Mouth, Daily at bedtime, # 30 tablet, Refills 0, Tot. Refills 0, Maintenance, 07/19/23 13:50:00 EDT, Route to Pharmacy Electronically, [facility], Partial fill upon patient request if [...] Display: History and Physical Hospital Authored Date: [id number] [place], [place] PSYCHIATRIC HISTORY ASSESS EXAM NAME: LORETTA CELESTIN : 89 MR#: [id number] PCP: ADMITTED: 12/20/15 DATE OF SERVICE: 12/20/15 HPI - Hosp Psych H P Chief Complaint Pt was sent from [facility] here for hallunication History of Present Illness 24 yo AA Female with known schizophrenia was seen at [facility] for hallucination. Apparently pt has been lived in senior care and sent to [facility] for acute exacerbation of her underline schizophrenia. [...] QDAY Haloperidol* (Haldol*) 5 MG PO BID [place] Carbonate SR* (Lithobid*) 300 MG PO QDAY liTHIum Carbonate SR* ([place] Carbonate SR*) 450 MG PO 4PM Discontinued Reported Medications Citalopram* (CeleXA*) 40 MG PO QDAY Benztropine* 0.5 MG PO BID buPROPion SR* 150 MG PO [id number] Trazodone* (Desyrel*) 100 MG PO HS RisperiDONE* [...] 324 MG QDAY 12/20 0900 CKD PO [place] Carbonate 300 MG QDAY 12/20 0900 AC PO Polyethylene Glycol 17 GM QDAY 12/20 0900 CKD PO Benztropine Mesylate 1 MG 0900,0 12/19 1700 AC PO Docusate Sodium 100 MG 0900,17012/19 1700 AC PO Haloperidol 5 MG 0900,1700 12/19 1700 AC PO [place] Carbonate 450 MG PM 12/19 1700 AC [...] fullly ambulartory Care Level Complexity of Care [id number] Comprehensive history, comprehensive examination, medical decision making of low complexity, at least 20 minutes at the bedside, patient's floor/ unit. ESigned by: YAS GARZA MD Date:12/21/15 Time:1633 / NOT FOR REDISCLOSURE WITHOUT PATIENT'S INFORMED CONSENT Admission evaluation note * Event Display: Admit Notes Authored Date: [id number] [place], [place] PSYCHIATRIC ADMISSION NOTE NAME: LORETTA CELESTIN : 89 HOSPITAL #: [id number] MR #: [id number] CHART LOC: PCP: DICTATING: MARIA R Robin MD DATE OF ADMISSION: 12/20/15 DATE OF SERVICE: 12/21/15 CHIEF COMPLAINT: This 23-year-old woman was admitted to [facility] on 12/20/15 on a Conditional [...] living in a senior care. Came to [place] with her grandmother in [...] year NAME: LORETTA CELESTIN : 89 HOSP#: [id number] MR#: [id number] CHART LOC: PCP: DICTATING: MARIA R Robin MD PSYCHIATRIC ADMISSION NOTE CONTINUED: unknown. TREATMENT PLAN: Resume outpatient medications, physical exam, collateral contact with community caregivers and social network, safety plan, aftercare plan and observe. 927 T: DD:20151221 TD:0745 DT:20151221 TT:0924 JOB:[id number] TORIE MARIA R Robin MD ESigned by: Date:12/22/15 Time:0643 NOT FOR REDISCLOSURE WITHOUT PATIENT'S INFORMED CONSENT Patient Care team information Care Team Personnel Name: Dean Rivas RN Position: [facility] RN Member Role: Primary Care Nurse Name: Jolanta Ace RN Position: [facility] RN Supv Member Role: Primary Care Nurse Name: Fatoumata Stokes DO Position: [facility] Physician - Primary Care Member Role: PCP Address: Address: [address] [place] [address] Adult & [place] [address]- Name: Awilda Grider RN Position: [facility] RN Member Role: Primary Care Nurse Name: Meagan Darden RN Position: [facility] RN Member Role: Primary Care Nurse Name: Chintan Leach DO Position: [facility] Renal MD Member Role: Lifetime Consulting Physician Address: Address: [address] [place], [place] [address] [place] [address]- Name: Chandler Ye RN [facility] Kvng Tompkins RN Position: [facility] ED RN [...] MD Position: [facility] Physician - Behavioral Health Member Role: Lifetime Consulting Physician Address: Address: [address] [place] [address]- [place] Care Team Related Persons Name: VIRIDIANA MCCOLLUMOPATRA Address: [address] [place] [address] Name: STEW PECK Address: [address] [place] [address] Name: LISA PALMA Address: [address] [place] [address]
--- OUTSIDE RECORDS SUMMARY | 2024-06-11 16:57 | XMS_ITS | Continuity of Care Document ---
Author Organization [facility] ter Address [address] [place] [address]- Care Team Providers Care Mechanic Insulator Name Role Phone Fatoumata Stokes DO Primary Care Physician Encounter [facility] Date(s): 10/25/23 - 10/26/[address] [address]- Encounter Diagnosis Depression(Final) - 10/26/23 Discharge Disposition: A-D/C Home Attending Physician: Cassandra Khan DO Admitting Physician: Cassandra Khan DO Referring Physician: Not on Staff, Referring [...] 0 Refills, Maintenance, 07/05/23 0:27:00 EDT, Nasal [place], Partial fill upon patient request if the [...] Maintenance,07/19/23 13:53:00 EDT, Route to Pharmacy Electronically, [facility], Partial fill upon patient request if the prescription is for a schedule... Start Date: 07/19/23 Stop Date: 08/18/23 Status: Ordered traZODone 50 mg oral tablet 50 mg, 1, tablet, By Mouth, Daily at bedtime, # 30 tablet, Refills 0, Tot. Refills 0, Maintenance, 07/19/23 13:53:00 EDT, Route to Pharmacy Electronically, [facility], Partial fill upon patient request if [...] 07/19/23 13:50:00 EDT, Route to Pharmacy Electronically, [facility], Partial fill upon patient request if [...] 3 Oxygen Saturation [94-100 %] 97 % (10/26/23 2:31 PM) 97 % (10/26/23 6:32 AM) 100 % (10/26/23 1:02 AM) Pulse Rate [55-90 bpm] 75 bpm (10/26/23 2:31 PM) 67 bpm (10/26/23 6:32 AM) 82 bpm (10/26/23 1:02 AM) Blood Pressure [90-138/55-84 mm Hg] 114/79mm Hg (10/26/23 2:31 PM) 107/67mm Hg (10/26/23 6:32 AM) 112/50mm Hg (10/26/23 1:02 AM) Respiratory Rate [16-30 br/min] 20 br/min (10/26/23 2:31 PM) 18 br/min (10/26/23 6:32 AM) 18 br/min (10/25/23 7:59 PM) Temperature [96.8-100.4 DegF] 98.1 DegF (10/26/23 2:31 PM) 97.5 DegF (10/26/23 6:32 AM) 97.7 DegF (10/25/23 7:59 PM) Mode of Delivery (Oxygen) Room air (10/26/23 2:31 PM) Room air (10/26/23 6:32 AM) Room air (10/26/23 1:02 AM) Blood pressure sites Arm, left (10/26/23 1:02 AM) Arm, left (10/25/23 7:59 PM) Temperature Route Oral (10/26/23 2:31 PM) Oral (10/26/23 6:32 AM) Oral (10/25/23 7:59 PM) Social History Social History Type Response Smoking Status 5-9 cigarettes (betw een 1/4 to 1/2 pack)/day in last 30 days; Interested in cessation: No; Patient wants NRT during admission Yes; Other: will accept nicotine gum; entered on: 07/14/23 Sex History and physical note * Event Display: History and Physical Hospital Authored Date: [id number] [place], [place] PSYCHIATRIC HISTORY ASSESS EXAM NAME: LORETTA CELESTIN : [birth year] MR#: [id number] PCP: ADMITTED: 12/20/15 DATE OF SERVICE: 12/20/15 HPI - Hosp Psych H P Chief Complaint Pt was sent from [facility] here for hallunication History of Present Illness 24 yo AA Female with known schizophrenia was seen at [facility] for hallucination. Apparently pt has been lived in nursing home and sent to [facility] for acute exacerbation of her [...] Haloperidol* (Haldol*) 5 MG PO BID [place] Carbonate SR* (Lithobid*) 300 MG PO QDAY liTHIum Carbonate SR* ([place] Carbonate SR*) 450 MG PO 4PM Discontinued Reported Medications Citalopram* (CeleXA*) 40 MG PO QDAY Benztropine* 0.5 MG PO BID buPROPion SR* 150 MG PO [id number] Trazodone* (Desyrel*) 100 MG PO HS RisperiDONE* [...] 324 MG QDAY 12/20 0900 CKD PO [place] Carbonate 300 MG QDAY 12/20 09 AC PO Polyethylene Glycol 17 GM QDAY 12/20 899 CKD PO Benztropine Mesylate 1 MG 09,12/19 1700 AC PO Docusate Sodium 100 MG 09,12/19 1700 AC PO Haloperidol 5 MG 0900,12/19 1700 AC PO [place] Carbonate 450 MG PM 12/19 1700 AC [...] fullly ambulartory Care Level Complexity of Care O16216 Comprehensive history, comprehensive examination, medical decision making of low complexity, at least 20 minutes at the bedside, patient's floor/ unit. ESigned by: YAS GARZA MD Date:12/21/15 Time:1633 / NOT FOR REDISCLOSURE WITHOUT PATIENT'S INFORMED CONSENT Admission evaluation note * Event Display: Admit Notes Authored Date: [id number] [place], [place] PSYCHIATRIC ADMISSION NOTE NAME: LORETTA CELESTIN : 89 HOSPITAL #: [id number] MR #: [id number] CHART LOC: PCP: DICTATING: MARIA R Robin MD DATE OF ADMISSION: 12/20/15 DATE OF SERVICE: 12/21/15 CHIEF COMPLAINT: This 23-year-old woman was admitted to [facility] on 12/20/15 on a Conditional Voluntary [...] living in a nursing home. Came to [place] with her grandmother in [...] year NAME: LORETTA CELESTIN : 89 HOSP#: [id number] MR#: [id number] CHART LOC: PCP: DICTATING: MARIA R Robin MD PSYCHIATRIC ADMISSION NOTE CONTINUED: unknown. TREATMENT PLAN: Resume outpatient medications, physical exam, collateral contact with community caregivers and social network, safety plan, aftercare plan and observe. 927 T:sn DD:20151221 TD:0745 DT:20151221 TT:0924 JOB:[id number] MICHELLE/SHANNON MARIA R Robin MD ESigned by: Date:12/22/15 Time:06 NOT FOR REDISCLOSURE WITHOUT PATIENT'S INFORMED CONSENT Note * Cassandra Khan DO: PERFORM Event Display: Patient Education Leaflets Authored Date: [id number] Depression ?? [id number] Depression Depression is a very common mental [...] medicines you take. This includes prescription and hmal-yga-mckhqvs medicines. It includes vitamins and herbal supplements. [...] An online chat option is also available. [employer] is free and available 18/04. 988 counselors [...] help ?? Last Reviewed Date: 2021 ?? 8847-5850 [employer]. All rights reserved. This information is not intended as a substitute for professional medical care. Always follow your healthcare professional's instructions. ?? Patient Care team information Care Team Personnel Name: Dean Rivas RN Position: [facility] RN Member Role: Primary Care Nurse Name: Jolanta Ace RN Position: [facility] RN Supv Member Role: Primary Care Nurse Name: Fatoumata Stokes DO Position: [facility] Physician - Primary Care Member Role: PCP Address: Address: [address] [place] [address] Adult & [place] [address]- Name: Britt Polanco RN Position: S RN Member Role: Primary Care Nurse Name: Awilda Grider RN Position: S RN Member Role: Primary Care Nurse Name: Meagan Darden RN Position: S RN Member Role: Primary Care Nurse Name: Chintan Leach DO Position: [facility] Renal MD Member Role: Lifetime Consulting Physician Address: Address: [address] [place] [address] [address] [facility] [place], [place] [address] Name: Chandler Ye RN Position: [facility] RN Member Role: Primary Care Nurse Name: Apurva Ji RN Position: [facility] ED RN W/OE and Tasks Member Role: Primary Care Nurse Name: Cordelia Matias RN Position: [facility] AMB Nurse Member Role: Primary Care Nurse Name: Riya Moore RN Position: [facility] RN Member Role: Primary Care Nurse Name: Radha Gutierrez Position: [facility] Outreach Member Role: Primary Care Nurse Name: Keenan Vincent RN Position: [facility] SN RN Member Role: Primary Care Nurse Name: Sasha Patricio RN Position: [facility] RN Member Role: Primary Care Nurse Name: Virgie Angel Position: [facility] RN Member Role: Primary Care Nurse Name: Emma Kaminski RN Position: [facility] RN Member Role: Primary Care Nurse Name: Malu Palomo Position: [facility] RN Member Role: Primary Care Nurse Name: Azeb Gusman RN Position: [facility] RN Member Role: Primary Care Nurse Name: Asher Diaz RN Position: [facility] RN Member Role: Primary Care Nurse Name: Kim Cornell RN Position: [facility] RN Member Role: Primary Care Nurse Name: Meredith Martinez RN Position: [facility] RN Member Role: Primary Care Nurse Name: Anika Gotti RN Position: [facility] RN Member Role: Primary Care Nurse Name: Kvng Tompkins RN Position: [facility] MARISABEL RN W/OE and Tasks Member Role: Primary Care Nurse Name: Rafiq Muñoz RN Position: [facility] RN Member Role: Primary Care Nurse Name: Justina Walker RN Position: [facility] RN Member Role: Primary Care Nurse Name: Ivone Hidalgo RN Position: [facility] RN Member Role: Primary Care Nurse Name: Mazin Penn MD Position: [facility] Physician - Behavioral Health Member Role: Lifetime Consulting Physician Address: Address: [address] [place] [address] [place] Care Team Related Persons Name: DORITA MCCOLLUM Address: [address] [place] [address] Name: STEW PECK Address: [address] [place] [address] Name: LISA PALMA Address: home [address] [place] [address]
--- OUTSIDE RECORDS SUMMARY | 2024-06-11 16:57 | XMS_ITS | Continuity of Care Document ---
Author Organization [facility] Address [address] [place] [address]- Care Team Providers Care Hammer Smith Name Role Phone Fatoumata Stokes DO Primary Care Physician [facility]23 - 09/28/23 [facility] [address] [place], [place] [address] Allergies, Adverse Reactions, Alerts Substance Reaction [...] 0 Refills, Maintenance, 07/05/23 0:27:00 EDT, Nasal [place], Partial fill upon patient request if the [...] 0 Refills, Maintenance, 07/19/23 13:49:00 EDT, Capsule, [facility], Partial fill upon patient request if [...] Maintenance,07/19/23 13:53:00 EDT, Route to Pharmacy Electronically, [facility], Partial fill upon patient request if the prescription is for a schedule... Start Date: 07/19/23 Stop Date: 08/18/23 Status: Ordered traZODone 50 mg oral tablet 50 mg, 1, tablet, By Mouth, Daily at bedtime, # 30 tablet, Refills 0, Tot. Refills 0, Maintenance, 07/19/23 13:53:00 EDT, Route to Pharmacy Electronically, [facility], Partial fill upon patient request if [...] 07/19/23 13:50:00 EDT, Route to Pharmacy Electronically, [facility], Partial fill upon patient request if [...] Display: History and Physical Hospital Authored Date: [id number] [place], [place] PSYCHIATRIC HISTORY ASSESS EXAM NAME: LORETTA CELESTIN : 89 MR#: [id number] PCP: ADMITTED: 12/20/15 DATE OF SERVICE: 12/20/15 HPI - Hosp Psych H P Chief Complaint Pt was sent from [facility] ER here for hallunication History of Present Illness 24 yo AA Female with known schizophrenia was seen at [facility] ER for hallucination. Apparently pt has been lived in correction and sent to [facility] for acute exacerbation [...] QDAY Haloperidol* (Haldol*) 5 MG PO BID [place] Carbonate SR* (Lithobid*) 300 MG PO QDAY liTHIum Carbonate SR* ([place] Carbonate SR*) 450 MG PO 4PM Discontinued Reported Medications Citalopram* (CeleXA*) 40 MG PO QDAY Benztropine* 0.5 MG PO BID buPROPion SR* 150 MG PO [id number] Trazodone* (Desyrel*) 100 MG PO HS RisperiDONE* [...] 324 MG QDAY 12/20 09 CKD PO [place] Carbonate 300 MG QDAY 12/20 09 AC PO Polyethylene Glycol 17 GM QDAY 12/20 09 CKD PO Benztropine Mesylate 1 MG 0900,12/19 1700 AC PO Docusate Sodium 100 MG 0900,12/19 1700 AC PO Haloperidol 5 MG 0900,12/19 1700 AC PO [place] Carbonate 450 MG PM 12/19 1700 AC [...] fullly ambulartory Care Level Complexity of Care E33877 Comprehensive history, comprehensive examination, medical decision making of low complexity, at least 20 minutes at the bedside, patient's floor/ unit. ESigned by: YAS GARZA MD Date:12/21/15 Time:1633 / NOT FOR REDISCLOSURE WITHOUT PATIENT'S INFORMED CONSENT Admission evaluation note * Event Display: Admit Notes Authored Date: [id number] [place], [place] PSYCHIATRIC ADMISSION NOTE NAME: LORETTA CELESTIN : 89 HOSPITAL #: [id number] MR #: [id number] CHART LOC: PCP: DICTATING: MARIA R Robin MD DATE OF ADMISSION: 12/20/15 DATE OF SERVICE: 12/21/15 CHIEF COMPLAINT: This 23-year-old woman was admitted to [facility] on 12/20/15 on a [...] year NAME: LORETTA CELESTIN : 89 HOSP#: [id number] MR#: [id number] CHART LOC: PCP: DICTATING: MARIA R Robin MD PSYCHIATRIC ADMISSION NOTE CONTINUED: unknown. TREATMENT PLAN: Resume outpatient medications, physical exam, collateral contact with community caregivers and social network, safety plan, aftercare plan and observe. 927 T:sn DD:[id number] TD:0745 DT:20151221 TT:0924 JOB:[id number] MICHELLE/SHANNON MARIA R Robin MD ESigned by: Date:12/22/15 Time:642 NOT FOR REDISCLOSURE WITHOUT PATIENT'S INFORMED CONSENT Patient Care team information Care Team Personnel Name: Dean Rivas RN Position: [facility] RN Member Role: Primary Care Nurse Name: Jolanta Ace RN Position: [facility] RN Supv Member Role: Primary Care Nurse Name: Fatoumata Stokes DO Position: [facility] Physician - Primary Care Member Role: PCP Address: Address: [address] [place] [address] Adult & [place] [address]- Name: Britt Polanco RN Position: [facility] RN Member Role: Primary Care Nurse Name: Awilda Grider RN Position: S RN Member Role: Primary Care Nurse Name: Meagan Darden RN Position: [facility] RN Member Role: Primary Care Nurse Name: Chintan Leach DO Position: [facility] Renal MD Member Role: Lifetime Consulting Physician Address: Address: [address] [place], [place] [address] [place] [address]- Name: Chandler Ye RN Position: [facility] RN Member Role: Primary Care Nurse Name: Apurva Ji RN Position: [facility] ED RN W/OE and Tasks Member Role: Primary Care Nurse Name: Cordelia Matias RN Position: [facility] AMB Nurse Member Role: Primary Care Nurse Name: Riya Moore RN Position: [facility] RN Member Role: Primary Care Nurse Name: Radha Gutierrez Position: [facility] Outreach Member Role: Primary Care Nurse Name: Keenan Vincent RN Position: [facility] SN RN Member Role: Primary Care Nurse Name: Sasha Patricio RN Position: [facility] RN Member Role: Primary Care Nurse Name: Virgie Angel Position: [facility] RN Member Role: Primary Care Nurse Name: Emma Kaminski RN Position: [facility] RN Member Role: Primary Care Nurse Name: Malu Palomo Position: [facility] RN Member Role: Primary Care Nurse Name: Azeb uGsman RN Position: [facility] RN Member Role: Primary Care Nurse Name: Asher Diaz RN Position: [facility] RN Member Role: Primary Care Nurse Name: Kim Cornell RN Position: [facility] RN Member Role: Primary Care Nurse Name: Meredith Martinez RN Position: [facility] RN Member Role: Primary Care Nurse Name: Anika Gotti RN Position: [facility] RN Member Role: Primary Care Nurse Name: Kvng Tompkins RN Position: [facility] ED RN W/OE and Tasks Member Role: Primary Care Nurse Name: Rafiq Muñoz RN Position: [facility] RN Member Role: Primary Care Nurse Name: Justina Walker RN Position: [facility] RN Member Role: Primary Care Nurse Name: Ivone Hidalgo RN Position: [facility] RN Member Role: Primary Care Nurse Name: Mazin Penn MD Position: [facility] Physician - Behavioral Health Member Role: Lifetime Consulting Physician Address: Address: [address] [place] [address]- [place] Care Team Related Persons Name: DORITA MCCOLLUM Address: [address] [place] [address] Name: STEW PECK Address: home [address] [facility], [address] Name: LISA PALMA Address: [address] [place] [address]
--- OUTSIDE RECORDS SUMMARY | 2024-06-11 16:57 | XMS_ITS | Continuity of Care Document ---
Author Organization [facility] Address [address] [place] [address]- Care Team Providers Care Riffler Tender Name Role Phone Fatoumata Stokes DO Primary Care Physician ( [phone] [facility]/23 - 10/21/[address] [address] Allergies, Adverse Reactions, Alerts [...] 0 Refills, Maintenance, 07/05/23 0:27:00 EDT, Nasal [place], Partial fill upon patient request if [...] 07/19/23 13:53:00 EDT, Route to Pharmacy Electronically, [facility], Partial fill upon patient request if [...] 07/19/23 13:50:00 EDT, Route to Pharmacy Electronically, [facility], Partial fill upon patient request if [...] Display: History and Physical Hospital Authored Date: [id number] [place], [place] PSYCHIATRIC HISTORY ASSESS EXAM NAME: LORETTA CELESTIN : [birth year] MR#: [id number] PCP: ADMITTED: 12/20/15 DATE OF SERVICE: 12/20/15 HPI - Hosp Psych H P Chief Complaint Pt was sent from [facility] ER here for hallunication History of Present Illness 24 yo AA Female with known schizophrenia was seen at [facility] ER for hallucination. Apparently pt has been lived in care home and sent to [facility] for acute exacerbation of her underline schizophrenia. [...] QDAY Haloperidol* (Haldol*) 5 MG PO BID [place] Carbonate SR* (Lithobid*) 300 MG PO QDAY liTHIum Carbonate SR* ([place] Carbonate SR*) 450 MG PO 4PM Discontinued Reported Medications Citalopram* (CeleXA*) 40 MG PO QDAY Benztropine* 0.5 MG PO BID buPROPion SR* 150 MG PO [id number] Trazodone* (Desyrel*) 100 MG PO HS RisperiDONE* [...] 324 MG QDAY 12/20 09 CKD PO [place] Carbonate 300 MG QDAY 12/20 899 AC PO Polyethylene Glycol 17 GM QDAY 12/20 899 CKD PO Benztropine Mesylate 1 MG 09,12/19 1700 AC PO Docusate Sodium 100 MG 0900,12/19 1700 AC PO Haloperidol 5 MG 0900,12/19 1700 AC PO [place] Carbonate 450 MG PM 12/19 170 AC PO Risperidone 0.5 MG 09,12/19 1700 [...] fullly ambulartory Care Level Complexity of Care [id number] Comprehensive history, comprehensive examination, medical decision making of low complexity, at least 20 minutes at the bedside, patient's floor/ unit. ESigned by: YAS GARZA MD Date:12/21/15 Time:1633 / NOT FOR REDISCLOSURE WITHOUT PATIENT'S INFORMED CONSENT Admission evaluation note * Event Display: Admit Notes Authored Date: [id number] [place], [place] PSYCHIATRIC ADMISSION NOTE NAME: LORETTA CELESTIN : 89 HOSPITAL #: [id number] MR #: [id number] CHART LOC: PCP: DICTATING: MARIA R Robin MD DATE OF ADMISSION: 12/20/15 DATE OF SERVICE: 12/21/15 CHIEF COMPLAINT: This 23-year-old woman was admitted to [facility] on 12/20/15 [...] living in a care home. Came to [place] with her grandmother in 2013, was very [...] year NAME: LORETTA CELESTIN : 89 HOSP#: [id number] MR#: [id number] CHART LOC: PCP: DICTATING: MARIA R Robin MD PSYCHIATRIC ADMISSION NOTE CONTINUED: unknown. TREATMENT PLAN: Resume outpatient medications, physical exam, collateral contact with community caregivers and social network, safety plan, aftercare plan and observe. 927 T:sn DD:20151221 TD:0745 DT:20151221 TT:0924 [id number] MICHELLE/SHANNON MARIA R Robin MD ESigned by: Date:12/22/15 Time:642 NOT FOR REDISCLOSURE WITHOUT PATIENT'S INFORMED CONSENT Patient Care team information Care Team Personnel Name: Dean Rivas RN Position: [facility] RN Member Role: Primary Care Nurse Name: Jolanta Ace RN Position: [facility] RN Supv Member Role: Primary Care Nurse Name: Fatoumata Stokes DO Position: [facility] Physician - Primary Care Member Role: PCP Address: Address: [address] [place] [address] Adult & [place] [address]- Name: Britt Polanco RN Position: [facility] RN Member Role: Primary Care Nurse Name: Awilda Grider RN Position: [facility] RN Member Role: Primary Care Nurse Name: Meagan Darden RN Position: [facility] RN Member Role: Primary Care Nurse Name: Chintan Leach DO Position: [facility] Renal MD Member Role: Lifetime Consulting Physician Address: Address: [address] [place], [place] [address] [place] [address]- Name: Chandler Ye RN Position: [facility] ED RN W/OE and Tasks Member Role: Primary Care Nurse Name: Apurva Ji RN Position: [facility] ED RN W/OE and Tasks Member Role: Primary Care Nurse Name: Cordelia Matias RN Position: [facility] AMB Nurse Member Role: Primary Care Nurse Name: Riya Moore RN Position: [facility] RN Member Role: Primary Care Nurse Name: Radha Gutierrez Position: [facility] Outreach Member Role: Primary Care Nurse Name: Keenan Vincent RN Position: [facility] SN RN Member Role: Primary Care Nurse Name: Sasha Patricio RN Position: [facility] RN Member Role: Primary Care Nurse Name: Virgie Angel Position: [facility] RN Member Role: Primary Care Nurse Name: Emma Kaminski RN Position: [facility] RN Member Role: Primary Care Nurse Name: Malu Palomo Position: [facility] RN Member Role: Primary Care Nurse Name: Azeb Gusman RN Position: [facility] RN Member Role: Primary Care Nurse Name: Asher Diaz RN Position: [facility] RN Member Role: Primary Care Nurse Name: Kim Cornell RN Position: [facility] RN Member Role: Primary Care Nurse Name: Meredith Martinez RN Position: [facility] RN Member Role: Primary Care Nurse Name: Anika Gotti RN Position: [facility] RN Member Role: Primary Care Nurse Name: Kvng Tompkins RN Position: [facility] ED RN W/OE and Tasks Member Role: Primary Care Nurse Name: Rafiq Muñoz RN Position: [facility] RN Member Role: Primary Care Nurse Name: Justina Walker RN Position: [facility] RN Member Role: Primary Care Nurse Name: Ivone Hidalgo RN Position: [facility] RN Member Role: Primary Care Nurse Name: Mazin Penn MD Position: [facility] Physician - Behavioral Health Member Role: Lifetime Consulting Physician Address: Address: [address] [place] [address] [place] Care Team Related Persons Name: DORITA MCCOLLUM Address: [address] [place] [address] Name: STEW PECK Address: home [address] [facility], [address] Name: LISA PALMA Address: home [address] [place] [address]
--- OUTSIDE RECORDS SUMMARY | 2024-06-11 16:57 | XMS_ITS | Continuity of Care Document ---
Author Organization [facility] ter Address [address] [place] [address]- Care Team Providers Care Perioperative Tech Name Role Phone Fatoumata Stokes DO Primary Care Physician Encounter [facility] Date(s): 11/28/23 - 11/28/[address] [address]- Encounter Diagnosis Depression(Final) - 11/28/23 Discharge Disposition: A-D/C Home Attending Physician: Danish [...] 0 Refills, Maintenance, 07/05/23 0:27:00 EDT, Nasal [place], Partial fill upon patient request if the [...] Maintenance,07/19/23 13:53:00 EDT, Route to Pharmacy Electronically, [facility], Partial fill upon patient request if the prescription is for a schedule... Start Date: 07/19/23 Stop Date: 08/18/23 Status: Ordered traZODone 50 mg oral tablet 50 mg, 1, tablet, By Mouth, Daily at bedtime, # 30 tablet, Refills 0, Tot. Refills 0, Maintenance, 07/19/23 13:53:00 EDT, Route to Pharmacy Electronically, [facility], Partial fill upon patient request [...] 07/19/23 13:50:00 EDT, Route to Pharmacy Electronically, [facility], Partial fill upon patient request [...] 1 Oxygen Saturation [94-100 %] 100 % (11/28/23 11:53 AM) Pulse Rate [55-90 bpm] 83 bpm (11/28/23 11:53 AM) Blood Pressure [90-138/55-84 mm Hg] 139/ 113mm Hg *H* (11/28/23 11:53 AM) Respiratory Rate [16-30 br/min] 18 br/mi n (11/28/23 11:53 AM) Temperature [96.8-100.4 DegF] 98.5 DegF (11/28/23 11:53 AM) Mode of Delivery (Oxygen) Room air (11/28/23 11:53 AM) Blood pressure sites Arm, right (11/28/23 11:53 AM) Temperature Route Oral (11/28/23 11:53 AM) Social History Social History Type Response Smoking Status 5-9 cigarettes (betw een 1/4 to 1/2 pack)/day in last 30 days; Interested in cessation: No; Patient wants NRT during admission Yes; Other: will accept nicotine gum; entered on: 07/14/23 Sex History and physical note * Event Display: History and Physical Hospital Authored Date: [id number] [place], [place] PSYCHIATRIC HISTORY ASSESS EXAM NAME: LORETTA CELESTIN : [birth year] MR#: [id number] PCP: ADMITTED: 12/20/15 DATE OF SERVICE: 12/20/15 HPI - Hosp Psych H P Chief Complaint Pt was sent from [facility] ER here for hallunication History of Present Illness 24 yo AA Female with known schizophrenia was seen at [facility] for hallucination. Apparently pt has been lived in care home [facility] [...] QDAY Haloperidol* (Haldol*) 5 MG PO BID [place] Carbonate SR* (Lithobid*) 300 MG PO QDAY liTHIum Carbonate SR* ([place] Carbonate SR*) 450 MG PO 4PM Discontinued Reported Medications Citalopram* (CeleXA*) 40 MG PO QDAY Benztropine* 0.5 MG PO BID buPROPion SR* 150 MG PO [id number] Trazodone* (Desyrel*) 100 MG PO HS RisperiDONE* [...] 324 MG QDAY 12/20 0900 CKD PO [place] Carbonate 300 MG QDAY 12/20 0900 AC PO Polyethylene Glycol 17 GM QDAY 12/20 0900 CKD PO Benztropine Mesylate 1 MG 0900,1700 12/19 1700 AC PO Docusate Sodium 100 MG 0900,1700 12/19 1700 AC PO Haloperidol 5 MG 0900,1700 12/19 1700 AC PO [place] Carbonate 450 MG PM 12/19 1700 AC [...] fullly ambulartory Care Level Complexity of Care [id number] Comprehensive history, comprehensive examination, medical decision making of low complexity, at least 20 minutes at the bedside, patient's floor/ unit. ESigned by: YAS GARZA MD Date:12/21/15 Time:1633 / NOT FOR REDISCLOSURE WITHOUT PATIENT'S INFORMED CONSENT Admission evaluation note * Event Display: Admit Notes Authored Date: [id number] [place], [place] PSYCHIATRIC ADMISSION NOTE NAME: LORETTA CELESTIN : 89 HOSPITAL #: [id number] MR #: [id number] CHART LOC: PCP: DICTATING: MARIA R Robin MD DATE OF ADMISSION: 12/20/15 DATE OF SERVICE: 12/21/15 CHIEF COMPLAINT: This 23-year-old woman was admitted to [facility] on 12/20/15 on a Conditional Voluntary [...] living in a care home. Came to [place] with her grandmother in [...] year NAME: LORETTA CELESTIN : 89 HOSP#: [id number] MR#: [id number] CHART LOC: PCP: DICTATING: MARIA R Robin MD PSYCHIATRIC ADMISSION NOTE CONTINUED: unknown. TREATMENT PLAN: Resume outpatient medications, physical exam, collateral contact with community caregivers and social network, safety plan, aftercare plan and observe. 927 T:sn DD:20151221 TD:0745 DT:20151221 TT:0924 JOB:[id number] MICHELLE/SHANNON MARIA R Robin MD ESigned by: Date:12/22/15 Time:642 NOT FOR REDISCLOSURE WITHOUT PATIENT'S INFORMED CONSENT Patient Care team information Care Team Personnel Name: Dean Rivas RN Position: [facility] RN Member Role: Primary Care Nurse Name: Jolanta Ace RN Position: [facility] RN Veronica Member Role: Primary Care Nurse Name: Fatoumata Stokes DO Position: [facility] Physician - Primary Care Member Role: PCP Address: Address: [address] [place] [address] Adult [place] [address]- [place] Name: Awilda Grider RN Position: [facility] RN Member Role: Primary Care Nurse Name: Meagan Darden RN Position: [facility] RN Member Role: Primary Care Nurse Name: Chintan Leach DO Position: [facility] Renal MD Member Role: Lifetime Consulting Physician Address: Address: [address] [place], [place] [address] [place] [address]- Name: Chandler Ye RN [facility] Primary Care Nurse Name: Virgie Angel Position: [facility] RN Member Role: Primary Care Nurse Name: Emma Kaminski RN Position: [facility] RN [...] Member Role: Lifetime Consulting Physician Address: Address: [address] [place] [address]- [place] Care Team Related Persons Name: DORITA MCCOLLUM Address: [address] [place] [address] Name: STEW PECK Address: [address] [facility], [address] Name: LISA PALMA Address: [address] [place] [address]
--- OUTSIDE RECORDS SUMMARY | 2024-06-11 16:57 | XMS_ITS | Continuity of Care Document ---
Author Organization [facility] Address [address] [place] [address]- Care Team Providers Care Administrator Pesticide Name Role Phone Fatoumata Stokes DO Primary Care Physician Encounter [facility] Date(s): 10/19/23 - 11/18/23 [facility] [address] [place], [place] [address] Allergies, Adverse Reactions, Alerts Substance [...] 0 Refills, Maintenance, 07/05/23 0:27:00 EDT, [facility] [place], Partial fill upon patient request if the [...] Maintenance,07/19/23 13:53:00 EDT, Route to Pharmacy Electronically, [facility], Partial fill upon patient request if the prescription is for a schedule... Start Date: 07/19/23 Stop Date: 08/18/23 Status: Ordered traZODone 50 mg oral tablet 50 mg, 1, tablet, By Mouth, Daily at bedtime, # 30 tablet, Refills 0, Tot. Refills 0, Maintenance, 07/19/23 13:53:00 EDT, Route to Pharmacy Electronically, [facility], Partial fill upon patient request if [...] 07/19/23 13:50:00 EDT, Route to Pharmacy Electronically, [facility], Partial fill upon patient request if [...] Display: History and Physical Hospital Authored Date: [id number] [place], [place] PSYCHIATRIC HISTORY ASSESS EXAM NAME: LORETTA CELESTIN : 89 MR#: [id number] PCP: ADMITTED: 12/20/15 DATE OF SERVICE: 12/20/15 HPI - Hosp Psych H P Chief Complaint Pt was sent from [facility] here for hallunication History of Present Illness 24 yo AA Female with known schizophrenia was seen at [facility] for hallucination. Apparently pt has been lived in [facility] and [facility] [...] QDAY Haloperidol* (Haldol*) 5 MG PO BID Glenvil Carbonate SR* (Lithobid*) 300 MG PO QDAY liTHIum Carbonate SR* (Glenvil Carbonate SR*) 450 MG PO 4PM Discontinued Reported Medications Citalopram* (CeleXA*) 40 MG PO QDAY Benztropine* 0.5 MG PO BID buPROPion SR* 150 MG PO [id number] Trazodone* (Desyrel*) 100 MG PO HS RisperiDONE* [...] 324 MG QDAY 12/20 09 CKD PO Glenvil Carbonate 300 MG QDAY 12/20 899 AC PO Polyethylene Glycol 17 GM QDAY 12/20 899 CKD PO Benztropine Mesylate 1 MG 09,12/19 1700 AC PO Docusate Sodium 100 MG 0900,12/19 1700 AC PO Haloperidol 5 MG 0900,12/19 1700 AC PO Glenvil Carbonate 450 MG PM 12/19 170 AC [...] fullly ambulartory Care Level Complexity of Care [id number] Comprehensive history, comprehensive examination, medical decision making of low complexity, at least 20 minutes at the bedside, patient's floor/ unit. ESigned by: YAS GARZA MD Date:12/21/15 Time:1633 / NOT FOR REDISCLOSURE WITHOUT PATIENT'S INFORMED CONSENT Admission evaluation note * Event Display: Admit Notes Authored Date: [id number] [place], [place] PSYCHIATRIC ADMISSION NOTE NAME: LORETTA CELESTIN : 89 HOSPITAL #: [id number] MR #: [id number] CHART LOC: PCP: DICTATING: MARIA R Robin MD DATE OF ADMISSION: 12/20/15 DATE OF SERVICE: 12/21/15 CHIEF COMPLAINT: This 23-year-old woman was admitted to [facility] on 12/20/15 on a [...] is living in a [facility]. Came to [place] with her grandmother in [...] year NAME: LORETTA CELESTIN : 89 HOSP#: [id number] MR#: [id number] CHART LOC: PCP: DICTATING: MARIA R Robin MD PSYCHIATRIC ADMISSION NOTE CONTINUED: unknown. TREATMENT PLAN: Resume outpatient medications, physical exam, collateral contact with community caregivers and social network, safety plan, aftercare plan and observe. 927 T:sn DD:[id number] TD:[id number] DT:[id number] TT:0924 JOB:[id number] MICHELLE/SHANNON MARIA R Robin MD ESigned by: Date:12/22/15 Time:642 NOT FOR REDISCLOSURE WITHOUT PATIENT'S INFORMED CONSENT Patient Care team information Care Team Personnel Name: Dean Rivas RN Position: [facility] RN Member Role: Primary Care Nurse Name: Jolanta Ace RN Position: [facility] RN Supv Member Role: Primary Care Nurse Name: Fatoumata Stokes DO Position: [facility] Physician - Primary Care Member Role: PCP Address: Address: [address] [place] [address] Adult [place] [address]- Name: Awilda Grider RN Position: S RN Member Role: Primary Care Nurse Name: Meagan Darden RN Position: [facility] RN Member Role: Primary Care Nurse Name: Chintan Leach DO Position: [facility] Renal MD Member Role: Lifetime Consulting Physician Address: Address: [address] [place] [address] [address] [facility] [place], [place] [address] Name: Chandler Ye RN Position: S RN Member Role: Primary Care Nurse Name: Apurva Ji RN Position: [facility] ED RN W/OE and Tasks Member Role: Primary Care Nurse Name: Cordelia Matias RN Position: [facility] AMB Nurse Member Role: Primary Care Nurse Name: Riya Moore RN Position: [facility] RN Member Role: Primary Care Nurse Name: Radha Gutierrez Position: [facility] Outreach Member Role: Primary Care Nurse Name: Keenan Vincent RN Position: [facility] SN RN Member Role: Primary Care Nurse Name: Sasha Patricio RN Position: [facility] RN Member Role: Primary Care Nurse Name: Virgie Angel Position: [facility] RN Member Role: Primary Care Nurse Name: Emma Kaminski RN Position: [facility] RN Member Role: Primary Care Nurse Name: Malu Palomo Position: [facility] RN Member Role: Primary Care Nurse Name: Azeb Gusman RN Position: [facility] RN Member Role: Primary Care Nurse Name: Asher Diaz RN Position: [facility] RN Member Role: Primary Care Nurse Name: Kim Cornell RN Position: [facility] RN Member Role: Primary Care Nurse Name: Meredith Martinez RN Position: [facility] RN Member Role: Primary Care Nurse Name: Anika Gotti RN Position: [facility] RN Member Role: Primary Care Nurse Name: Kvng Tompkins RN Position: [facility] ED RN W/OE and Tasks Member Role: Primary Care Nurse Name: Rafiq Muñoz RN Position: [facility] RN Member Role: Primary Care Nurse Name: Justina Walker RN Position: [facility] RN Member Role: Primary Care Nurse Name: Ivone Hidalgo RN Position: [facility] RN Member Role: Primary Care Nurse Name: Mazin Penn MD Position: [facility] Physician - Behavioral Health Member Role: Lifetime Consulting Physician Address: Address: [address] [place] [address] [place] Care Team Related Persons Name: DORITA MCCOLLUM Address: [address] [place] [address] Name: KIA PECKCY Address: home [address] [facility], [address] Name: LISA PALMA Address: home [address] [place] [address]
[2024-06-11 17:16] VITALS: BP 160/94; PULSE 83; RESP 18; TEMP 36.7; O2SAT 96
[2024-06-11 17:17] VITALS: BMI 36.3
--- NOTE | 2024-06-11 18:45 | PC.ADMIT ---
Vanda is admitted to , on a CV, for treatment of MDD w/ psychotic feaures & SI. She was transferred to us from [facility]. Vanda has an extensive psychiatric history with multiple admissions. She lives in a retirement & has there for many years, since removed from her mother due to mom's substance abuse. She had been expressing SI and SIB urges at the home, subsequent to refusing her medications over the past three days. Vanda is pleasant and cooperative. She is cognitively delayed & presents with a childlike demeanor. Patient endorses AH stating that the voices tell her to do things but they don't tell her to hurt herself. Her thought process is disorganized and speech pressured. She endorses SI prior to admission along with urges to self-harm. Currently she denies SI/HI. Skin check unremarkable. Pt oriented to the unit & is placed on 15min safety checks.
[2024-06-11 20:00] VITALS: BP 160/118; PULSE 98; RESP 18; TEMP 36.7; O2SAT 99
[2024-06-12] MEDS: Acetaminophen 325 MG TABLET 650 MG PO ×2 (04:57→18:11)
[2024-06-12 08:00] VITALS: BP 179/90; PULSE 72; RESP 18; TEMP 36.5; O2SAT 100
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
[2024-06-12] MEDS: Acetaminophen 325 MG TABLET 975 MG PO (09:48)
[2024-06-12] MEDS: Benzocaine 20 % Oral Gel 9 GM TUBE 1 APPL MUCOUS MEM ×2 (09:55→18:13)
[2024-06-12] MEDS: Ferrous Sulfate 324 MG TABLET.DR 325 MG PO (09:58)
[2024-06-12] MEDS: Ascorbic Acid 250 MG TABLET PO (09:59)
[2024-06-12] MEDS: Benztropine Mesylate 1 MG TABLET PO ×2 (09:59→20:19)
[2024-06-12] MEDS: Loratadine 10 MG TABLET PO (09:59)
[2024-06-12] MEDS: Lithium Carbonate ER 450 MG TABLET.ER PO ×2 (09:59→20:20)
[2024-06-12] MEDS: Perphenazine 8 MG TABLET 16 MG PO ×2 (10:00→20:19)
[2024-06-12 10:58] LABS: Estimated Average Glucose 94 mg/dL; Hemoglobin A1c % 4.9 % (<6.0); Total Hemoglobin (HGBA1C) 2879.5643 umol/L
--- NOTE | 2024-06-12 10:59 | P.CONHOSP_ITS ---
History of Present Illness Data of Consult Service Date: 06/12/24 Requesting physician: Stevie Shaikh Primary Care Provider: Unknown Physician HPI Reason for consult: Medical H and P 33-year-old female with history of alcohol syndrome, cognitive delay, seizure disorder, GERD, iron deficiency anemia admitted to adult Psychiatry from [facility] ED with consult placed hospitalist service for medical H and P. The patient is complaining of dental pain in the left lower jaw radiating into her face and neck that has been going on and worsening for about 2 weeks. She is afebrile. She states she does have a dentist, but has not reached out to them. She does live in a [facility]pc. While in the ED, there was no leukocytosis, microcytic anemia with H/H 10.2/32.6%. Renal function normal, electrolyte levels normal. Glucose 98. Urine tox screen was negative, TSH low at 0.15 with normal free T4 of 1.4, urinalysis negative for infection. She was normotensive in the ER but last night was hypertensive to 160/118. Vitals otherwise wnl. No cigarettes, alcohol, or drugs. Review of Systems 2 Review of Systems: General: No fevers, malaise, unintentional weight loss HEENT: No blurred vision, diplopia. No sore throat, nasal congestion, rhinorrhea, sinus pain, ear pain. +dental pain Cardiovascular: No chest pain, palpitations, or leg edema Respiratory: No shortness of breath, wheezing, cough GI: No abdominal pain, nausea, vomiting, diarrhea, constipation, melena, hematochezia : No dysuria, hematuria, increased urinary frequency, decreased urinary output MSK: No myalgia, back pain Neuro: No headaches, weakness, paresthesias Skin: No rashes or lesions [facility] Medical History (Updated 06/12/24 @ 11:13 by TAWANA Rebollar) Routine medical exam Vaginal discharge Former smoker History of seizure disorder ADHD Iron deficiency anemia alcohol syndrome Schizoaffective disorder Social History Household Members: Caregiver Household Members Other:: fpc Housing: Other Housing Other:: [facility] Do you presently have visiting nurse or other home services: No ([facility]) Unable to assess alcohol history related to: Unknown Alcohol intake: never Patient Tobacco Use Status: Never used Tobacco Tobacco use type: Cigarette Cigarettes Per Day: 3 Smoked in Last 30 Days: Yes e-Cigarette/Vaping Use: Never Used Patient Interested in Nicotine Replacement: No Patient Given Instructions on How to Stop Smoking: No Second Hand Smoke Exposure: No Use of substances other than those prescribed or required for medical reasons: No Currently Displaying Signs/Symptoms of Drug Intoxication Withdrawal: No Any prior treatment program specific to substance use: No Have you been hit, kicked, punched, or otherwise hurt by someone within the past year? If so, by whom?: No Do you feel safe in your current relationship?: No Current Relationship Is there a partner from a previous relationship who is making you feel unsafe now?: No Are you made to feel afraid or neglected: No Spiritual Healthcare Practices: None Advance Directives: No Advance Directives Information Provided: No Do you have thoughts of harming others: None Do you have a plan to hurt others: No Plan Recently lost weight without trying: No Nutrition Risks: No Nutritional Risk Patient : No : No Poor oral hygiene: No service: No Sexual orientation: Did not discuss Meds Allergies Allergy/AdvReac Type Severity Reaction Status Date / Time clozapine Allergy Unknown Verified 06/30/22 06:36 metronidazole [From Flagyl] Allergy Unknown Verified 06/30/22 06:36 paliperidone Allergy Unknown Verified 06/30/22 06:36 Active Medications: Current Medications Acetaminophen (Acetaminophen 325 Mg Tablet) 650 mg PO Q6H PRN PRN Reason: Headache/Pain Mild Scale (1-3) Last Admin: 06/12/24 04:57 Dose: 650 mg Al Hydroxide/Mg Hydroxide (Magnesium Hydrox/Alum Hydrox 30 Ml Oral.Susp) 30 ml PO Q6H PRN PRN Reason: Heartburn/Nausea Amoxicillin/Clavulanate Potassium (Amoxicillin/Potassium Clav 875 Mg Tablet) 875 mg PO Q12H JUHI Stop: 06/16/24 23:01 Ascorbic Acid (Ascorbic Acid 250 Mg Tablet) 250 mg PO DAILY JUHI Last Admin: 06/12/24 09:59 Dose: 250 mg Benzocaine (Benzocaine 20 % Oral Gel 9 Gm Tube) 1 appl MUCOUS MEM QID PRN; Protocol PRN Reason: tooth pain Last Admin: 06/12/24 09:55 Dose: 1 appl Benztropine Mesylate (Benztropine Mesylate 1 Mg Tablet) 1 mg PO BID [facility] Last Admin: 06/12/24 09:59 Dose: 1 mg Ferrous Sulfate (Ferrous Sulfate 324 Mg Tablet.Dr) 325 mg PO DAILY [facility] Last Admin: 06/12/24 09:58 Dose: 324 mg Fluticasone Propionate (Fluticasone Propionate 100 Mcg Blst.W.Dev) 2 puff INHALE RBID [facility] Last Admin: 06/12/24 10:05 Dose: Not Given Hydroxyzine HCl (Hydroxyzine Hcl 25 Mg Tablet) 25 mg PO Q6H PRN PRN Reason: Anxiety [place] Carbonate ([place] Carbonate Er 450 Mg Tablet.Er) 450 mg PO BID [facility] Last Admin: 06/12/24 09:59 Dose: 450 mg Loratadine (Loratadine 10 Mg Tablet) 10 mg PO DAILY [facility] Last Admin: 06/12/24 09:59 Dose: 10 mg Magnesium Hydroxide (Milk Of Magnesia 30 Ml Oral.Susp) 30 ml PO DAILY PRN PRN Reason: Constipation Nicotine (Nicotine 21 Mg Patch.Td24) 21 mg TRANSDERMA DAILY PRN PRN Reason: smoking cessation Nicotine Polacrilex (Nicotine Polacrilex 2 Mg Gum) 4 mg BUCCAL Q2H PRN PRN Reason: Nicotine Cravings Olanzapine (Olanzapine 5 Mg Tablet) 5 mg PO TID PRN PRN Reason: agitation Olanzapine (Olanzapine 10 Mg Tablet) 10 mg PO BEDTIME [facility] Perphenazine (Perphenazine 8 Mg Tablet) 16 mg PO BID [facility] Last Admin: 06/12/24 10:00 Dose: 16 mg Prazosin HCl (Prazosin Hcl 1 Mg Capsule) 1 mg PO BEDTIME [facility]; Protocol Trazodone HCl (Trazodone Hcl 50 Mg Tablet) 50 mg PO BEDTIME MRX1 PRN PRN Reason: Insomnia Home Medications ?Medication ?Instructions ?Recorded ?Confirmed ?Last Taken ?Type fluticasone propionate 50 mcg BID 08/16/23 06/12/24 Unknown History olanzapine 10 mg PO BEDTIME 08/16/23 06/12/24 06/10/24 21:44 History prazosin 1 mg PO BEDTIME 08/16/23 06/12/24 06/10/24 21:44 History trazodone 50 mg PO BEDTIME PRN Insomnia 08/16/23 06/12/24 06/10/24 21:44 History ferrous sulfate 325 mg (65 mg 325 mg PO USEASDIRECTD 06/12/24 06/12/24 06/11/24 10:56 History iron) tablet,delayed release Physical Exam 2 Vital Signs and Narrative: Vital Signs: Last Vital Signs Temp 98.1 F 06/11/24 20:00 Pulse 98 06/11/24 20:00 Resp 18 06/11/24 20:00 BP 160/118 H 06/11/24 20:00 Pulse Ox 99 06/11/24 20:00 O2 Del Method Room Air 06/11/24 20:00 BMI result Body Mass Index 36.3 Constitutional - Awake and Alert, No apparent distress Eyes - PERRLA, EOMI Mouth - poor dentition with exposed fillings in front teeth, significant plaque, erythema of the gum line without appreciable fluctuance but with significant ttp along the left lower gumline. There is mild swelling of the left side of mouth Lymph- L tonsillar adenopathy Cardiovascular - S1S2, RRR, No edema Respiratory - Normal lung expansion, Normal respiratory effort, No respiratory distress, CTA bilaterally Gastrointestinal - NT / ND; +BS; No rebound or guarding Extremities - no calf tenderness bilaterally, no swelling Musculoskeletal - Normal inspection, normal ROM Skin - Warm/Dry Neurological - CN II-XII in tact, 5/5 strength BUE and BLE Results Labs 06/12/24 10:12 Labs: Laboratory Results - last 24 hr 06/12/24 10:12 Estimat Average Glucose 94 Hemoglobin A1c % 4.9 Assessment and Plan (1) Gingivitis: Status: Acute (2) Routine medical exam: Status: Acute Plan 33-year-old female with history of alcohol syndrome, cognitive delay, seizure disorder, GERD, iron deficiency anemia admitted to adult Psychiatry from [facility] ED with consult placed hospitalist service for medical H and P. #Mood disorder -plan per psychiatry #Gingivitis/possible dental abscess -pt with very poor dentition with notable plaque and gingivitis. Given sensitivity of left lower jaw with mild facial swelling and cervical adenopathy, suspect possible underlying abscess. -Treat with augmentin 875mg BID x 10 doses (5 days). Pt may have ongoing pain due to underlying dental issues and needs to see a dentist on discharge -Recommend chlorhexadine rinse BID and can use benzocaine -warm compresses >cool compresses #Unspecified sz disorder -pt denies recent seizure activity. Not on antiepileptics -monitor #JAMISON -continue ferrous sulfate Thank you for allowing me to participate in this consult. Signing off at this time. Please do not hesitate to call for further questions or for any acute medical issues
[2024-06-12 11:09] LABS: Alanine Aminotransferase 17 U/L (0-31); Albumin Level 4.4 g/dL (3.5-5.0); Alkaline Phosphatase 122 U/L (39-117); Anion Gap 13 (12-20); Aspartate Amino Transferase 12 U/L (5-31); Bilirubin Total 0.2 mg/dL (0.0-1.0); Blood Urea Nitrogen 5 mg/dL (9-16); Carbon Dioxide 24 mmol/L (22-29); Chloride 110 mmol/L (96-108); Cholesterol 198 mg/dL (<200); Creatinine Clr Calc Pharmacy 89.8; Estimated Glomerular Filt Rate > 60; Glucose Fasting 105 mg/dL (60-99); HDL Cholesterol 43 mg/dL (>40); LDL Cholesterol Calculated 138 mg/dL (<100); Potassium 3.8 mmol/L (3.3-5.1); Sodium 143 mmol/L (135-145); Total Protein 8.4 g/dL (6.5-8.0); Triglycerides 89 mg/dL (<150)
[2024-06-12 11:19] LABS: TSH reflex Free T4 0.32 uIU/mL (0.32-4.0)
[2024-06-12] MEDS: Amoxicillin/Potassium Clav 875 MG TABLET PO ×2 (11:45→23:21)
[2024-06-12 13:13] VITALS: BP 160/88
[2024-06-12] MEDS: Ibuprofen 800 MG TABLET PO (13:16)
[2024-06-12] MEDS: amLODIPine Besylate 5 MG TABLET PO (13:17)
[2024-06-12 20:00] VITALS: BP 128/88; PULSE 80; TEMP 36.7; O2SAT 97
[2024-06-12] MEDS: Fluticasone Propionate 100 MCG BLST.W.DEV 2 PUFF INHALE (20:18)
[2024-06-12] MEDS: Chlorhexidine Gluc Oral Rinse 15 ML MOUTHWASH BUCCAL (20:19)
[2024-06-12] MEDS: Prazosin HCL 1 MG CAPSULE PO (20:19)
[2024-06-12] MEDS: OLANZapine 10 MG TABLET PO (20:20)
[2024-06-13] MEDS: Acetaminophen 325 MG TABLET 650 MG PO ×3 (01:50→16:51)
[2024-06-13 08:00] VITALS: BP 131/88; PULSE 50; RESP 16; TEMP 36.9; O2SAT 100
[2024-06-13] MEDS: Loratadine 10 MG TABLET PO (09:36)
[2024-06-13] MEDS: amLODIPine Besylate 5 MG TABLET PO (09:36)
[2024-06-13] MEDS: Chlorhexidine Gluc Oral Rinse 15 ML MOUTHWASH BUCCAL ×2 (09:36→20:40)
[2024-06-13] MEDS: Ascorbic Acid 250 MG TABLET PO (09:36)
[2024-06-13] MEDS: Benztropine Mesylate 1 MG TABLET PO ×2 (09:36→20:42)
[2024-06-13] MEDS: Lithium Carbonate ER 450 MG TABLET.ER PO ×2 (09:36→20:40)
[2024-06-13] MEDS: Fluticasone Propionate 100 MCG BLST.W.DEV 2 PUFF INHALE (09:37)
[2024-06-13] MEDS: Perphenazine 8 MG TABLET 16 MG PO ×2 (10:21→20:40)
[2024-06-13] MEDS: Ferrous Sulfate 324 MG TABLET.DR PO (10:21)
[2024-06-13] MEDS: Amoxicillin/Potassium Clav 875 MG TABLET PO (10:21)
--- NOTE | 2024-06-13 17:07 | P.PNPSI_ITS ---
Subjective Subjective Date of Service: 06/13/24 Reason For Visit: Major depressive d/o w/ severe psychotic symptoms Interim History: Pt in bed when seen. Today, she is more responsive, with improved eye contact. She is accepting medications, does appear to be responding to internal stimuli, is cooperative and was able to sleep last night team reports for ~6 hours. Dental pain remains an issue. She is using prn's and accepting antibiotic doses. Medication Compliance: Yes Side effects from medications: No Attending Groups: No Review of Systems Acute medical concerns: No Medical Review of Systems: unchanged Review of Systems Review of Systems Reports dental pain Mental Status Exam Mental Status Exam Patient Appearance: Fatigued Patient Orientation: Person and Place Level of Consciousness: Sedated Patient Behavior: Asleep and Poor Eye Contact Mood Description: Anxious and Apprehensive Affect Description: Anxious and Apprehensive Patient Cognition Impaired: Yes Ability to Follow Directions: Fair Speech Pattern: Spontaneous Speech Memory Description: Remote Impaired Hallucinations: Auditory Delusions: Paranoid Ideation Thought Process: Rumination Thought Content: positive for Circumstantial and positive for Perseveration Depressive Symptoms: Increased Anxiety, Unhappiness and Difficulty Concentrating Judgement: Poor Diagnostics Vital Signs (24Hr): Vital Signs - 24 hr 06/12/24 20:00 06/13/24 08:00 Temperature 98.0 F 98.5 F Pulse Rate 80 50 Respiratory Rate 16 Blood Pressure 128/88 131/88 Pulse Oximetry 97 100 Oxygen Delivery Method Room Air Room Air BMI result Body Mass Index 36.3 Labs 06/12/24 10:12 Labs: Laboratory Results - last 48 hr 06/12/24 10:12 Sodium 143 Potassium 3.8 Chloride 110 H Carbon Dioxide 24 Anion Gap 13 BUN 5 L Creatinine 1.00 Estim Creat Clear Calc 89.8 Estimated GFR > 60 Fasting Glucose 105 H Estimat Average Glucose 94 Hemoglobin A1c % 4.9 Calcium 11.0 H D Total Bilirubin 0.2 AST 12 ALT 17 Alkaline Phosphatase 122 H Total Protein 8.4 H Albumin 4.4 Triglycerides 89 Cholesterol 198 LDL Cholesterol, Calc 138 H HDL Cholesterol 43 TSH 0.32 Medications Medications Current Medications Acetaminophen (Acetaminophen 325 Mg Tablet) 650 mg PO Q6H PRN PRN Reason: Headache/Pain Mild Scale (1-3) Last Admin: 06/13/24 16:51 Dose: 650 mg Al Hydroxide/Mg Hydroxide (Magnesium Hydrox/Alum Hydrox 30 Ml Oral.Susp) 30 ml PO Q6H PRN PRN Reason: Heartburn/Nausea Amlodipine Besylate (Amlodipine Besylate 5 Mg Tablet) 5 mg PO DAILY [facility]; Protocol Last Admin: 06/13/24 09:36 Dose: 5 mg Amoxicillin/Clavulanate Potassium (Amoxicillin/Potassium Clav 875 Mg Tablet) 875 mg PO Q12H [facility] Stop: 06/16/24 23:01 Last Admin: 06/13/24 10:21 Dose: 875 mg Ascorbic Acid (Ascorbic Acid 250 Mg Tablet) 250 mg PO DAILY [facility] Last Admin: 06/13/24 09:36 Dose: 250 mg Benzocaine (Benzocaine 20 % Oral Gel 9 Gm Tube) 1 appl MUCOUS MEM QID PRN; Protocol PRN Reason: tooth pain Last Admin: 06/12/24 18:13 Dose: 1 appl Benztropine Mesylate (Benztropine Mesylate 1 Mg Tablet) 1 mg PO BID [facility] Last Admin: 06/13/24 09:36 Dose: 1 mg Chlorhexidine Gluconate (Chlorhexidine Gluc Oral Rinse 15 Ml Mouthwash) 15 ml BUCCAL BID [facility] Last Admin: 06/13/24 09:36 Dose: 15 ml Ferrous Sulfate (Ferrous Sulfate 324 Mg Tablet.Dr) 324 mg PO DAILY [facility] Last Admin: 06/13/24 10:21 Dose: 324 mg Fluticasone Propionate (Fluticasone Propionate 100 Mcg Blst.W.Dev) 2 puff INHALE RBID [facility] Last Admin: 06/13/24 09:37 Dose: 2 puff Hydroxyzine HCl (Hydroxyzine Hcl 25 Mg Tablet) 25 mg PO Q6H PRN PRN Reason: Anxiety Ibuprofen (Ibuprofen 800 Mg Tablet) 800 mg PO Q8H PRN PRN Reason: severe dental pain [place] Carbonate ([place] Carbonate Er 450 Mg Tablet.Er) 450 mg PO BID [facility] Last Admin: 06/13/24 09:36 Dose: 450 mg Loratadine (Loratadine 10 Mg Tablet) 10 mg PO DAILY [facility] Last Admin: 06/13/24 09:36 Dose: 10 mg Magnesium Hydroxide (Milk Of Magnesia 30 Ml Oral.Susp) 30 ml PO DAILY PRN PRN Reason: Constipation Nicotine (Nicotine 21 Mg Patch.Td24) 21 mg TRANSDERMA DAILY PRN PRN Reason: smoking cessation Nicotine Polacrilex (Nicotine Polacrilex 2 Mg Gum) 4 mg BUCCAL Q2H PRN PRN Reason: Nicotine Cravings Olanzapine (Olanzapine 5 Mg Tablet) 5 mg PO TID PRN PRN Reason: agitation Olanzapine (Olanzapine 10 Mg Tablet) 10 mg PO BEDTIME [facility] Last Admin: 06/12/24 20:20 Dose: 10 mg Perphenazine (Perphenazine 8 Mg Tablet) 16 mg PO BID [facility] Last Admin: 06/13/24 10:21 Dose: 16 mg Prazosin HCl (Prazosin Hcl 1 Mg Capsule) 1 mg PO BEDTIME [facility]; Protocol Last Admin: 06/12/24 20:19 Dose: 1 mg Trazodone HCl (Trazodone Hcl 50 Mg Tablet) 50 mg PO BEDTIME MRX1 PRN PRN Reason: Insomnia Allergies Allergies Allergy/AdvReac Type Severity Reaction Status Date / Time clozapine Allergy Unknown Verified 06/30/22 06:36 metronidazole [From Flagyl] Allergy Unknown Verified 06/30/22 06:36 paliperidone Allergy Unknown Verified 06/30/22 06:36 Assessment & Plan Assessment & Plan (1) Schizoaffective disorder: Status: Acute Code(s): F25.9 - Schizoaffective disorder, unspecified (2) 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 Plan: Pt was started on antibiotics for dental pain, edema. Re-start regime and monitor Collateral contact Diagnostics as needed 06/13/24: Continue to re-establish regime Continue antibiotics for dental pain Consult with OP Team/Residence/Guardian for dental care upon discharge Encourage milieu as pt improves Monitor [place] as pt is using Ibuprofen for pain mgt. Reason for continued inpatient stay Substantial Risk for: rapid decompensation and med/psych decompensation Time Spent With Patient Time: Total time managing care of this patient today ____ minutes.
[2024-06-13 20:00] VITALS: BP 152/69; PULSE 116; RESP 16; TEMP 36.3; O2SAT 98
[2024-06-13] MEDS: traZODone HCL 50 MG TABLET PO (20:40)
[2024-06-13] MEDS: Prazosin HCL 1 MG CAPSULE PO (20:41)
[2024-06-13] MEDS: OLANZapine 10 MG TABLET PO (20:41)
[2024-06-14] MEDS: Amoxicillin/Potassium Clav 875 MG TABLET PO ×2 (02:43→12:21)
--- NOTE | 2024-06-14 03:31 | PC.NURSE ---
Patient continues to c/o tooth pain. Utilizing warm compress, mouth rinse and taking Antibiotics as ordered.
[2024-06-14 07:00] VITALS: BMI 36.2
[2024-06-14 09:31] VITALS: BP 110/71; PULSE 88; RESP 18; TEMP 37.2; O2SAT 98
[2024-06-14] MEDS: Fluticasone Propionate 100 MCG BLST.W.DEV 2 PUFF INHALE (09:34)
[2024-06-14] MEDS: amLODIPine Besylate 5 MG TABLET PO (09:35)
[2024-06-14] MEDS: Loratadine 10 MG TABLET PO (09:35)
[2024-06-14] MEDS: Lithium Carbonate ER 450 MG TABLET.ER PO (09:35)
[2024-06-14] MEDS: Perphenazine 8 MG TABLET 16 MG PO (09:36)
[2024-06-14] MEDS: Benztropine Mesylate 1 MG TABLET PO (09:36)
[2024-06-14] MEDS: Chlorhexidine Gluc Oral Rinse 15 ML MOUTHWASH BUCCAL (09:36)
[2024-06-14] MEDS: Ferrous Sulfate 324 MG TABLET.DR PO (09:36)
[2024-06-14] MEDS: Ascorbic Acid 250 MG TABLET PO (09:36)
[2024-06-14] MEDS: Acetaminophen 325 MG TABLET 650 MG PO (09:36)
--- NOTE | 2024-06-14 12:08 | P.PNPSI_ITS ---
Subjective Subjective Date of Service: 06/14/24 Reason For Visit: Major depressive d/o w/ severe psychotic symptoms Guardianship: Yes Interim History: Labile, less isolative today. Increased visability in milieu. Continues to appear to respond to internal stimuli. This a.m. with agitation, difficulty with interaction. Not very responsive when approached. Guarded This afternoon, lability continues, but with increase in interaction, laughter, approached tw x 2 with brief comments and appears much less guarded. Continues to report dental pain. Medication Compliance: Yes Side effects from medications: No Attending Groups: No Review of Systems Acute medical concerns: No Medical Review of Systems: unchanged Mental Status Exam Mental Status Exam Patient Appearance: Disheveled Patient Orientation: Person and Place Level of Consciousness: Alert Patient Behavior: Guarded, Talkative, Cooperative, Suspicious, Restless, Wandering, Distractible, Good Eye Contact and Poor Eye Contact Mood Description: Labile Affect Description: Labile Patient Cognition Impaired: Yes Ability to Follow Directions: Fair Speech Pattern: Garbled and Spontaneous Speech Memory Description: Remote Impaired Hallucinations: Auditory Delusions: Paranoid Ideation and Grandiose Thought Process: Distracted Thought Content: positive for Loose Associations and positive for Tangential Judgement: Poor Diagnostics Vital Signs (24Hr): Vital Signs - 24 hr 06/13/24 20:00 06/14/24 09:31 Temperature 97.3 F 98.9 F Pulse Rate 116 H 88 Respiratory Rate 16 18 Blood Pressure 152/69 H 110/71 Pulse Oximetry 98 98 Oxygen Delivery Method Room Air BMI result Body Mass Index 36.3 Labs 06/12/24 10:12 Medications Medications Current Medications Acetaminophen (Acetaminophen 325 Mg Tablet) 650 mg PO Q6H PRN PRN Reason: Headache/Pain Mild Scale (1-3) Last Admin: 06/14/24 09:36 Dose: 650 mg Al Hydroxide/Mg Hydroxide (Magnesium Hydrox/Alum Hydrox 30 Ml Oral.Susp) 30 ml PO Q6H PRN PRN Reason: Heartburn/Nausea Amlodipine Besylate (Amlodipine Besylate 5 Mg Tablet) 5 mg PO DAILY [facility]; Protocol Last Admin: 06/14/24 09:35 Dose: 5 mg Amoxicillin/Clavulanate Potassium (Amoxicillin/Potassium Clav 875 Mg Tablet) 875 mg PO Q12H [facility] Stop: 06/16/24 23:01 Last Admin: 06/14/24 02:43 Dose: 875 mg Ascorbic Acid (Ascorbic Acid 250 Mg Tablet) 250 mg PO DAILY [facility] Last Admin: 06/14/24 09:36 Dose: 250 mg Benzocaine (Benzocaine 20 % Oral Gel 9 Gm Tube) 1 appl MUCOUS MEM QID PRN; Protocol PRN Reason: tooth pain Last Admin: 06/12/24 18:13 Dose: 1 appl Benztropine Mesylate (Benztropine Mesylate 1 Mg Tablet) 1 mg PO BID [facility] Last Admin: 06/14/24 09:36 Dose: 1 mg Chlorhexidine Gluconate (Chlorhexidine Gluc Oral Rinse 15 Ml Mouthwash) 15 ml BUCCAL BID [facility] Last Admin: 06/14/24 09:36 Dose: 15 ml Ferrous Sulfate (Ferrous Sulfate 324 Mg Tablet.Dr) 324 mg PO DAILY [facility] Last Admin: 06/14/24 09:36 Dose: 324 mg Fluticasone Propionate (Fluticasone Propionate 100 Mcg Blst.W.Dev) 2 puff INHALE RBID [facility] Last Admin: 06/14/24 09:34 Dose: 2 puff Hydroxyzine HCl (Hydroxyzine Hcl 25 Mg Tablet) 25 mg PO Q6H PRN PRN Reason: Anxiety Ibuprofen (Ibuprofen 800 Mg Tablet) 800 mg PO Q8H PRN PRN Reason: severe dental pain [place] Carbonate ([place] Carbonate Er 450 Mg Tablet.Er) 450 mg PO BID [facility] Last Admin: 06/14/24 09:35 Dose: 450 mg Loratadine (Loratadine 10 Mg Tablet) 10 mg PO DAILY [facility] Last Admin: 06/14/24 09:35 Dose: 10 mg Magnesium Hydroxide (Milk Of Magnesia 30 Ml Oral.Susp) 30 ml PO DAILY PRN PRN Reason: Constipation Nicotine (Nicotine 21 Mg Patch.Td24) 21 mg TRANSDERMA DAILY PRN PRN Reason: smoking cessation Nicotine Polacrilex (Nicotine Polacrilex 2 Mg Gum) 4 mg BUCCAL Q2H PRN PRN Reason: Nicotine Cravings Olanzapine (Olanzapine 5 Mg Tablet) 5 mg PO TID PRN PRN Reason: agitation Olanzapine (Olanzapine 10 Mg Tablet) 10 mg PO BEDTIME [facility] Last Admin: 06/13/24 20:41 Dose: 10 mg Perphenazine (Perphenazine 8 Mg Tablet) 16 mg PO BID [facility] Last Admin: 06/14/24 09:36 Dose: 16 mg Prazosin HCl (Prazosin Hcl 1 Mg Capsule) 1 mg PO BEDTIME [facility]; Protocol Last Admin: 06/13/24 20:41 Dose: 1 mg Trazodone HCl (Trazodone Hcl 50 Mg Tablet) 50 mg PO BEDTIME MRX1 PRN PRN Reason: Insomnia Last Admin: 06/13/24 20:40 Dose: 50 mg Allergies Allergies Allergy/AdvReac Type Severity Reaction Status Date / Time clozapine Allergy Unknown Verified 06/30/22 06:36 metronidazole [From Flagyl] Allergy Unknown Verified 06/30/22 06:36 paliperidone Allergy Unknown Verified 06/30/22 06:36 Assessment & Plan Assessment & Plan (1) Schizoaffective disorder: Status: Acute Code(s): F25.9 - Schizoaffective disorder, unspecified (2) 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 Plan: Pt was started on antibiotics for dental pain, edema. Re-start regime and monitor Collateral contact Diagnostics as needed 06/14/24- Continue tx On 06/15 [place] Level, BMP Reason for continued inpatient stay Substantial Risk for: rapid decompensation and med/psych decompensation Time Spent With Patient Time: Total time managing care of this patient today ____ minutes.
[2024-06-14 20:00] VITALS: BP 145/76; PULSE 95; RESP 16; TEMP 37.3; O2SAT 99
[2024-06-15 09:24] VITALS: BP 00/00
[2024-06-15 10:20] VITALS: BP 132/85; PULSE 84; TEMP 36.6
[2024-06-15] MEDS: Amoxicillin/Potassium Clav 875 MG TABLET PO (10:23)
[2024-06-15] MEDS: Ferrous Sulfate 324 MG TABLET.DR PO (10:23)
[2024-06-15] MEDS: amLODIPine Besylate 5 MG TABLET PO (10:24)
[2024-06-15] MEDS: Loratadine 10 MG TABLET PO (10:24)
[2024-06-15] MEDS: Ascorbic Acid 250 MG TABLET PO (10:24)
[2024-06-15] MEDS: Benztropine Mesylate 1 MG TABLET PO ×2 (10:24→20:38)
[2024-06-15] MEDS: Lithium Carbonate ER 450 MG TABLET.ER PO ×2 (10:24→20:39)
[2024-06-15] MEDS: Fluticasone Propionate 100 MCG BLST.W.DEV 2 PUFF INHALE (10:28)
--- NOTE | 2024-06-15 11:38 | HO.PSYCHPN ---
Subjective Subjective Date of Service: 06/15/24 Reason For Visit: Major depressive d/o w/ severe psychotic symptoms Guardianship: Yes Interim History: Visable in milieu, listening to music, interactive. Reports her tooth does not hurt as much today. Pt has been refusing some medications. Review of her Abraham's with [facility] Legal Services for guidance. Ordered prn IM Olanzapine if pt refuses Olanzapine/Perphenazine. Team has made contact with pt's residence. She had a dental appt last week that was not attended due to her refusal of medications and labile presentation. Residential team report ~2 weeks off meds with SIBS hx. Diagnostics ordered, not drawn. 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) Attending Groups: Intermittent Review of Systems Acute medical concerns: No Medical Review of Systems: unchanged Mental Status Exam Mental Status Exam Patient Appearance: Appropriate Patient Orientation: Person and Place Level of Consciousness: Alert Patient Behavior: Talkative, Cooperative, Wandering, Distractible and Good Eye Contact Mood Description: Labile Affect Description: Labile Patient Cognition Impaired: Yes Ability to Follow Directions: Fair Speech Pattern: Spontaneous Speech Memory Description: Remote Impaired Hallucinations: Auditory Delusions: Present Thought Process: Distracted Thought Content: positive for Tangential and positive for Suicidal Ideation (denies) Depressive Symptoms: Increased Anxiety, Increased Irritability (at times) and Difficulty Concentrating Judgement: Poor Diagnostics Vital Signs (24Hr): Vital Signs - 24 hr 06/14/24 20:00 06/15/24 09:24 06/15/24 10:20 Temperature 99.2 F 97.8 F Pulse Rate 95 84 Respiratory Rate 16 Blood Pressure 145/76 H 00/00 L 132/85 Pulse Oximetry 99 Oxygen Delivery Method Room Air BMI result Body Mass Index 36.2 Labs 06/12/24 10:12 Medications Medications Current Medications Acetaminophen (Acetaminophen 325 Mg Tablet) 650 mg PO Q6H PRN PRN Reason: Headache/Pain Mild Scale (1-3) Last Admin: 06/14/24 09:36 Dose: 650 mg Al Hydroxide/Mg Hydroxide (Magnesium Hydrox/Alum Hydrox 30 Ml Oral.Susp) 30 ml PO Q6H PRN PRN Reason: Heartburn/Nausea Amlodipine Besylate (Amlodipine Besylate 5 Mg Tablet) 5 mg PO DAILY [facility]; Protocol Last Admin: 06/15/24 10:24 Dose: 5 mg Amoxicillin/Clavulanate Potassium (Amoxicillin/Potassium Clav 875 Mg Tablet) 875 mg PO Q12H [facility] Stop: 06/16/24 23:01 Last Admin: 06/15/24 10:23 Dose: 875 mg Ascorbic Acid (Ascorbic Acid 250 Mg Tablet) 250 mg PO DAILY [facility] Last Admin: 06/15/24 10:24 Dose: 250 mg Benzocaine (Benzocaine 20 % Oral Gel 9 Gm Tube) 1 appl MUCOUS MEM QID PRN; Protocol PRN Reason: tooth pain Last Admin: 06/12/24 18:13 Dose: 1 appl Benztropine Mesylate (Benztropine Mesylate 1 Mg Tablet) 1 mg PO BID [facility] Last Admin: 06/15/24 10:24 Dose: 1 mg Chlorhexidine Gluconate (Chlorhexidine Gluc Oral Rinse 15 Ml Mouthwash) 15 ml BUCCAL BID [facility] Last Admin: 06/15/24 09:24 Dose: Not Given Ferrous Sulfate (Ferrous Sulfate 324 Mg Tablet.Dr) 324 mg PO DAILY [facility] Last Admin: 06/15/24 10:23 Dose: 324 mg Fluticasone Propionate (Fluticasone Propionate 100 Mcg Blst.W.Dev) 2 puff INHALE RBID [facility] Last Admin: 06/15/24 10:28 Dose: 2 puff Hydroxyzine HCl (Hydroxyzine Hcl 25 Mg Tablet) 25 mg PO Q6H PRN PRN Reason: Anxiety Ibuprofen (Ibuprofen 800 Mg Tablet) 800 mg PO Q8H PRN PRN Reason: severe dental pain [place] Carbonate ([place] Carbonate Er 450 Mg Tablet.Er) 450 mg PO BID [facility] Last Admin: 06/15/24 10:24 Dose: 450 mg Loratadine (Loratadine 10 Mg Tablet) 10 mg PO DAILY [facility] Last Admin: 06/15/24 10:24 Dose: 10 mg Magnesium Hydroxide (Milk Of Magnesia 30 Ml Oral.Susp) 30 ml PO DAILY PRN PRN Reason: Constipation Nicotine (Nicotine 21 Mg Patch.Td24) 21 mg TRANSDERMA DAILY PRN PRN Reason: smoking cessation Nicotine Polacrilex (Nicotine Polacrilex 2 Mg Gum) 4 mg BUCCAL Q2H PRN PRN Reason: Nicotine Cravings Olanzapine (Olanzapine 5 Mg Tablet) 5 mg PO TID PRN PRN Reason: agitation Olanzapine (Olanzapine 10 Mg Tablet) 10 mg PO BEDTIME [facility] Last Admin: 06/14/24 23:17 Dose: Not Given Perphenazine (Perphenazine 8 Mg Tablet) 16 mg PO BID [facility] Last Admin: 06/15/24 09:25 Dose: Not Given Prazosin HCl (Prazosin Hcl 1 Mg Capsule) 1 mg PO BEDTIME [facility]; Protocol Last Admin: 06/14/24 23:18 Dose: Not Given Trazodone HCl (Trazodone Hcl 50 Mg Tablet) 50 mg PO BEDTIME MRX1 PRN PRN Reason: Insomnia Last Admin: 06/13/24 20:40 Dose: 50 mg Allergies Allergies Allergy/AdvReac Type Severity Reaction Status Date / Time clozapine Allergy Unknown Verified 06/30/22 06:36 metronidazole [From Flagyl] Allergy Unknown Verified 06/30/22 06:36 paliperidone Allergy Unknown Verified 06/30/22 06:36 Assessment & Plan Assessment & Plan (1) Schizoaffective disorder: Status: Acute Code(s): F25.9 - Schizoaffective disorder, unspecified (2) 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 Plan: Pt was started on antibiotics for dental pain, edema. Re-start regime and monitor Collateral contact Diagnostics as needed 06/14/24- Continue tx On 06/15 [place] Level, BMP 06/15- Regime non compliance with active Lo PRN IM's in place, consulted with [facility] legal team Diagnostics ordred 06/14 not drawn. Reason for continued inpatient stay Substantial Risk for: rapid decompensation Time Spent With Patient Time: Total time managing care of this patient today ____ minutes.
[2024-06-15] MEDS: Perphenazine 8 MG TABLET 16 MG PO ×2 (11:45→20:36)
[2024-06-15 19:47] VITALS: BP 129/88; PULSE 86; TEMP 37.1; O2SAT 100
[2024-06-15] MEDS: Chlorhexidine Gluc Oral Rinse 15 ML MOUTHWASH BUCCAL (20:35)
[2024-06-15] MEDS: Prazosin HCL 1 MG CAPSULE PO (20:36)
[2024-06-15] MEDS: OLANZapine 10 MG TABLET PO (20:37)
[2024-06-16 09:46] VITALS: BP 130/80; PULSE 88; TEMP 36.2; O2SAT 99
[2024-06-16] MEDS: OLANZapine 5 MG TABLET PO (09:50)
[2024-06-16] MEDS: Loratadine 10 MG TABLET PO (09:50)
[2024-06-16] MEDS: Ascorbic Acid 250 MG TABLET PO (09:50)
[2024-06-16] MEDS: amLODIPine Besylate 5 MG TABLET PO (09:51)
[2024-06-16] MEDS: Perphenazine 8 MG TABLET 16 MG PO (09:51)
[2024-06-16] MEDS: Benztropine Mesylate 1 MG TABLET PO (09:51)
[2024-06-16] MEDS: Lithium Carbonate ER 450 MG TABLET.ER PO (09:52)
[2024-06-16] MEDS: Fluticasone Propionate 100 MCG BLST.W.DEV 2 PUFF INHALE (09:54)
[2024-06-16] MEDS: Ferrous Sulfate 324 MG TABLET.DR PO (10:09)
--- NOTE | 2024-06-16 10:21 | P.PNPSI_ITS ---
Subjective Subjective Date of Service: 06/16/24 Reason For Visit: Major depressive d/o w/ severe psychotic symptoms Interim History: Met with patient; discussed with team Patient says that she has doing okay; difficult with which to engage; makes inquiries about discharge; taking medications Mental Status Exam Mental Status Exam Patient Appearance: Appropriate Patient Orientation: Person and Place Level of Consciousness: Alert Patient Behavior: Talkative, Cooperative, Wandering, Distractible and Good Eye Contact Mood Description: Labile Affect Description: Labile Patient Cognition Impaired: Yes Ability to Follow Directions: Fair Speech Pattern: Spontaneous Speech Memory Description: Remote Impaired Hallucinations: Auditory Delusions: Present Thought Process: Distracted Thought Content: positive for Tangential and positive for Suicidal Ideation (denies) Depressive Symptoms: Increased Anxiety, Increased Irritability (at times) and Difficulty Concentrating Judgement: Poor Diagnostics Vital Signs (24Hr): Vital Signs - 24 hr 06/15/24 19:47 06/16/24 09:46 Temperature 98.8 F 97.2 F Pulse Rate 86 88 Blood Pressure 129/88 130/80 Pulse Oximetry 100 99 Oxygen Delivery Method Room Air Room Air BMI result Body Mass Index 36.2 Labs 06/12/24 10:12 Medications Medications Current Medications Acetaminophen (Acetaminophen 325 Mg Tablet) 650 mg PO Q6H PRN PRN Reason: Headache/Pain Mild Scale (1-3) Last Admin: 06/14/24 09:36 Dose: 650 mg Al Hydroxide/Mg Hydroxide (Magnesium Hydrox/Alum Hydrox 30 Ml Oral.Susp) 30 ml PO Q6H PRN PRN Reason: Heartburn/Nausea Amlodipine Besylate (Amlodipine Besylate 5 Mg Tablet) 5 mg PO DAILY [facility]; Protocol Last Admin: 06/16/24 09:51 Dose: 5 mg Amoxicillin/Clavulanate Potassium (Amoxicillin/Potassium Clav 875 Mg Tablet) 875 mg PO Q12H [facility] Stop: 06/16/24 23:01 Last Admin: 06/15/24 22:08 Dose: Not Given Ascorbic Acid (Ascorbic Acid 250 Mg Tablet) 250 mg PO DAILY [facility] Last Admin: 06/16/24 09:50 Dose: 250 mg Benzocaine (Benzocaine 20 % Oral Gel 9 Gm Tube) 1 appl MUCOUS MEM QID PRN; Protocol PRN Reason: tooth pain Last Admin: 06/12/24 18:13 Dose: 1 appl Benztropine Mesylate (Benztropine Mesylate 1 Mg Tablet) 1 mg PO BID [facility] Last Admin: 06/16/24 09:51 Dose: 1 mg Chlorhexidine Gluconate (Chlorhexidine Gluc Oral Rinse 15 Ml Mouthwash) 15 ml BUCCAL BID [facility] Last Admin: 06/16/24 09:55 Dose: Not Given Ferrous Sulfate (Ferrous Sulfate 324 Mg Tablet.Dr) 324 mg PO DAILY [facility] Last Admin: 06/16/24 10:09 Dose: 324 mg Fluticasone Propionate (Fluticasone Propionate 100 Mcg Blst.W.Dev) 2 puff INHALE RBID [facility] Last Admin: 06/16/24 09:54 Dose: 2 puff Hydroxyzine HCl (Hydroxyzine Hcl 25 Mg Tablet) 25 mg PO Q6H PRN PRN Reason: Anxiety Ibuprofen (Ibuprofen 800 Mg Tablet) 800 mg PO Q8H PRN PRN Reason: severe dental pain [place] Carbonate ([place] Carbonate Er 450 Mg Tablet.Er) 450 mg PO BID [facility] Last Admin: 06/16/24 09:52 Dose: 450 mg Loratadine (Loratadine 10 Mg Tablet) 10 mg PO DAILY [facility] Last Admin: 06/16/24 09:50 Dose: 10 mg Magnesium Hydroxide (Milk Of Magnesia 30 Ml Oral.Susp) 30 ml PO DAILY PRN PRN Reason: Constipation Nicotine (Nicotine 21 Mg Patch.Td24) 21 mg TRANSDERMA DAILY PRN PRN Reason: smoking cessation Nicotine Polacrilex (Nicotine Polacrilex 2 Mg Gum) 4 mg BUCCAL Q2H PRN PRN Reason: Nicotine Cravings Olanzapine (Olanzapine 10 Mg Tablet) 10 mg PO BEDTIME [facility] Last Admin: 06/15/24 20:37 Dose: 10 mg Olanzapine (Olanzapine 10 Mg Vial) 10 mg IM BEDTIME PRN PRN Reason: Abraham's-if pt refuses hs zyprexa Olanzapine (Olanzapine 10 Mg Vial) 10 mg IM BID PRN PRN Reason: Abraham's-if pt refuses perphenazine Olanzapine (Olanzapine 5 Mg Tablet) 5 mg PO BID PRN PRN Reason: agitation Last Admin: 06/16/24 09:50 Dose: 5 mg Perphenazine (Perphenazine 8 Mg Tablet) 16 mg PO BID [facility] Last Admin: 06/16/24 09:51 Dose: 16 mg Prazosin HCl (Prazosin Hcl 1 Mg Capsule) 1 mg PO BEDTIME [facility]; Protocol Last Admin: 06/15/24 20:36 Dose: 1 mg Trazodone HCl (Trazodone Hcl 50 Mg Tablet) 50 mg PO BEDTIME MRX1 PRN PRN Reason: Insomnia Last Admin: 06/13/24 20:40 Dose: 50 mg Allergies Allergies Allergy/AdvReac Type Severity Reaction Status Date / Time clozapine Allergy Unknown Verified 06/30/22 06:36 metronidazole [From Flagyl] Allergy Unknown Verified 06/30/22 06:36 paliperidone Allergy Unknown Verified 06/30/22 06:36 Assessment & Plan Assessment & Plan (1) Schizoaffective disorder: Status: Acute Code(s): F25.9 - Schizoaffective disorder, unspecified (2) 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 Plan: Pt was started on antibiotics for dental pain, edema. Re-start regime and monitor Collateral contact Diagnostics as needed 06/14/24- Continue tx On 06/15 [place] Level, BMP 06/15- Regime non compliance with active Lo PRN IM's in place, consulted with [facility] legal team Diagnostics ordred 06/14 not drawn. 06/16 continue treatment plan Reason for continued inpatient stay Substantial Risk for: rapid decompensation Time Spent With Patient Time: Total time managing care of this patient today ____ minutes.
[2024-06-16 20:00] VITALS: BP 139/95; PULSE 81; TEMP 36.6; O2SAT 98
--- NOTE | 2024-06-17 00:13 | PC.NURSE ---
Patient was in bed during HS medication administration. Refused all HS meds.
--- NOTE | 2024-06-17 08:24 | HO.PSYCHPN ---
Subjective Subjective Date of Service: 06/17/24 Reason For Visit: Major depressive d/o w/ severe psychotic symptoms Interim History: Met with patient; discussed with team Patient is struggling with AH. Under the covers on approach and did not want to talk to chief underwriter . She said she was okay but that was it, otherwise not willing to engage Mental Status Exam Mental Status Exam Patient Appearance: Unkempt Patient Orientation: Person and Place Level of Consciousness: Alert Patient Behavior: Avoidant, Distractible and Poor Eye Contact Mood Description: Depressed Affect Description: Depressed Patient Cognition Impaired: Yes Ability to Follow Directions: Fair Speech Pattern: Spontaneous Speech Memory Description: Remote Impaired Hallucinations: Auditory Delusions: Present Thought Process: Distracted Thought Content: positive for Tangential and positive for Suicidal Ideation (denies) Depressive Symptoms: Increased Anxiety, Increased Irritability (at times) and Difficulty Concentrating Judgement: Poor Diagnostics Vital Signs (24Hr): Vital Signs - 24 hr 06/16/24 09:46 06/16/24 20:00 Temperature 97.2 F 97.9 F Pulse Rate 88 81 Blood Pressure 130/80 139/95 H Pulse Oximetry 99 98 Oxygen Delivery Method Room Air Room Air BMI result Body Mass Index 36.2 Labs 06/12/24 10:12 Medications Medications Current Medications Acetaminophen (Acetaminophen 325 Mg Tablet) 650 mg PO Q6H PRN PRN Reason: Headache/Pain Mild Scale (1-3) Last Admin: 06/14/24 09:36 Dose: 650 mg Al Hydroxide/Mg Hydroxide (Magnesium Hydrox/Alum Hydrox 30 Ml Oral.Susp) 30 ml PO Q6H PRN PRN Reason: Heartburn/Nausea Amlodipine Besylate (Amlodipine Besylate 5 Mg Tablet) 5 mg PO DAILY [facility]; Protocol Last Admin: 06/16/24 09:51 Dose: 5 mg Amoxicillin/Clavulanate Potassium (Amoxicillin/Potassium Clav 875 Mg Tablet) 875 mg PO Q12H [facility] Stop: 06/18/24 09:01 Last Admin: 06/16/24 22:10 Dose: Not Given Ascorbic Acid (Ascorbic Acid 250 Mg Tablet) 250 mg PO DAILY [facility] Last Admin: 06/16/24 09:50 Dose: 250 mg Benzocaine (Benzocaine 20 % Oral Gel 9 Gm Tube) 1 appl MUCOUS MEM QID PRN; Protocol PRN Reason: tooth pain Last Admin: 06/12/24 18:13 Dose: 1 appl Benztropine Mesylate (Benztropine Mesylate 1 Mg Tablet) 1 mg PO BID [facility] Last Admin: 06/16/24 22:10 Dose: Not Given Chlorhexidine Gluconate (Chlorhexidine Gluc Oral Rinse 15 Ml Mouthwash) 15 ml BUCCAL BID [facility] Last Admin: 06/16/24 22:11 Dose: Not Given Ferrous Sulfate (Ferrous Sulfate 324 Mg Tablet.Dr) 324 mg PO DAILY [facility] Last Admin: 06/16/24 10:09 Dose: 324 mg Fluticasone Propionate (Fluticasone Propionate 100 Mcg Blst.W.Dev) 2 puff INHALE RBID [facility] Last Admin: 06/16/24 21:19 Dose: Not Given Hydroxyzine HCl (Hydroxyzine Hcl 25 Mg Tablet) 25 mg PO Q6H PRN PRN Reason: Anxiety Ibuprofen (Ibuprofen 800 Mg Tablet) 800 mg PO Q8H PRN PRN Reason: severe dental pain [place] Carbonate ([place] Carbonate Er 450 Mg Tablet.Er) 450 mg PO BID [facility] Last Admin: 06/16/24 22:11 Dose: Not Given Loratadine (Loratadine 10 Mg Tablet) 10 mg PO DAILY [facility] Last Admin: 06/16/24 09:50 Dose: 10 mg Magnesium Hydroxide (Milk Of Magnesia 30 Ml Oral.Susp) 30 ml PO DAILY PRN PRN Reason: Constipation Nicotine (Nicotine 21 Mg Patch.Td24) 21 mg TRANSDERMA DAILY PRN PRN Reason: smoking cessation Nicotine Polacrilex (Nicotine Polacrilex 2 Mg Gum) 4 mg BUCCAL Q2H PRN PRN Reason: Nicotine Cravings Olanzapine (Olanzapine 10 Mg Tablet) 10 mg PO BEDTIME [facility] Last Admin: 06/16/24 22:11 Dose: Not Given Olanzapine (Olanzapine 10 Mg Vial) 10 mg IM BEDTIME PRN PRN Reason: Abraham's-if pt refuses hs zyprexa Olanzapine (Olanzapine 10 Mg Vial) 10 mg IM BID PRN PRN Reason: Abraham's-if pt refuses perphenazine Olanzapine (Olanzapine 5 Mg Tablet) 5 mg PO BID PRN PRN Reason: agitation Last Admin: 06/16/24 09:50 Dose: 5 mg Perphenazine (Perphenazine 8 Mg Tablet) 16 mg PO BID [facility] Last Admin: 06/16/24 22:11 Dose: Not Given Prazosin HCl (Prazosin Hcl 1 Mg Capsule) 1 mg PO BEDTIME [facility]; Protocol Last Admin: 06/16/24 22:11 Dose: Not Given Trazodone HCl (Trazodone Hcl 50 Mg Tablet) 50 mg PO BEDTIME MRX1 PRN PRN Reason: Insomnia Last Admin: 06/13/24 20:40 Dose: 50 mg Allergies Allergies Allergy/AdvReac Type Severity Reaction Status Date / Time clozapine Allergy Unknown Verified 06/30/22 06:36 metronidazole [From Flagyl] Allergy Unknown Verified 06/30/22 06:36 paliperidone Allergy Unknown Verified 06/30/22 06:36 Assessment & Plan Assessment & Plan (1) Schizoaffective disorder: Status: Acute Code(s): F25.9 - Schizoaffective disorder, unspecified (2) 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 Plan: Pt was started on antibiotics for dental pain, edema. Re-start regime and monitor Collateral contact Diagnostics as needed 06/14/24- Continue tx On 06/15 [place] Level, BMP 06/15- Regime non compliance with active Lo PRN IM's in place, consulted with [facility] legal team Diagnostics ordred 06/14 not drawn. 06/16 continue treatment plan 06/17 continue current treatment plan; patient does have a Lo in place; could consider increasing some medications but will hold off for now Patient educated on: diagnosis Informed Consent: does not understand Reason for continued inpatient stay Substantial Risk for: rapid decompensation Time Spent With Patient Time: Total time managing care of this patient today ____ minutes.
[2024-06-17] MEDS: Perphenazine 8 MG TABLET 16 MG PO ×2 (08:54→20:28)
[2024-06-17] MEDS: Fluticasone Propionate 100 MCG BLST.W.DEV 2 PUFF INHALE ×2 (08:54→20:27)
[2024-06-17] MEDS: Ascorbic Acid 250 MG TABLET PO (08:55)
[2024-06-17] MEDS: Benztropine Mesylate 1 MG TABLET PO ×2 (08:55→20:28)
[2024-06-17] MEDS: Amoxicillin/Potassium Clav 875 MG TABLET PO ×2 (08:56→20:28)
[2024-06-17] MEDS: Loratadine 10 MG TABLET PO (08:56)
[2024-06-17] MEDS: Lithium Carbonate ER 450 MG TABLET.ER PO ×2 (08:56→20:28)
[2024-06-17] MEDS: Ferrous Sulfate 324 MG TABLET.DR PO (08:57)
[2024-06-17 10:17] VITALS: BP 118/71
[2024-06-17] MEDS: amLODIPine Besylate 5 MG TABLET PO (10:17)
[2024-06-17 10:19] VITALS: BP 118/71; PULSE 80; TEMP 36.4; O2SAT 100
[2024-06-17] MEDS: Acetaminophen 325 MG TABLET 650 MG PO (17:23)
[2024-06-17 20:00] VITALS: BP 130/79; PULSE 88; RESP 16; TEMP 36.8; O2SAT 98
[2024-06-17 20:28] VITALS: BP 120/70
[2024-06-17] MEDS: Prazosin HCL 1 MG CAPSULE PO (20:28)
[2024-06-17] MEDS: OLANZapine 10 MG TABLET PO (20:28)
[2024-06-17] MEDS: Chlorhexidine Gluc Oral Rinse 15 ML MOUTHWASH BUCCAL (20:29)
--- NOTE | 2024-06-17 20:48 | PC.NURSE ---
Patient refused eye drops, took only 1/2 her dose of Depakote and only 7.5 of her po Olanzapine, scheduled dose of 15 mg.
[2024-06-18 08:00] VITALS: BP 138/92; PULSE 88; RESP 18
[2024-06-18] MEDS: Fluticasone Propionate 100 MCG BLST.W.DEV 2 PUFF INHALE ×2 (09:37→21:55)
[2024-06-18] MEDS: Amoxicillin/Potassium Clav 875 MG TABLET PO (09:38)
[2024-06-18] MEDS: Benztropine Mesylate 1 MG TABLET PO ×2 (09:38→21:56)
[2024-06-18] MEDS: Loratadine 10 MG TABLET PO (09:38)
[2024-06-18] MEDS: Perphenazine 8 MG TABLET 16 MG PO ×2 (09:38→21:55)
[2024-06-18] MEDS: Lithium Carbonate ER 450 MG TABLET.ER PO ×2 (09:38→21:56)
[2024-06-18] MEDS: Ferrous Sulfate 324 MG TABLET.DR PO (09:39)
[2024-06-18] MEDS: Ascorbic Acid 250 MG TABLET PO (09:39)
[2024-06-18 09:55] VITALS: BP 136/92
[2024-06-18] MEDS: amLODIPine Besylate 5 MG TABLET PO (09:55)
--- NOTE | 2024-06-18 09:56 | P.PNPSI_ITS ---
Subjective Subjective Date of Service: 06/18/24 Reason For Visit: Major depressive d/o w/ severe psychotic symptoms Subjective Notes: Conditional Voluntary Healthcare Proxy: No Guardianship: Yes Medical Problems Affecting Mental Status: No Interim History: Vanda reports she is feeling better. She asked appropriate questions about her inhalers and discussed sx of congestion at times which she finds the inhalers helpful for. She reports good sleep. She asks about discharge. Per team her program will pick her up on 06/20/24 8am. She is in agreement with this plan, feels she is prepared to discharge and expressed excitement. She denies SI,HI, AH, VH. Behaviorally she is in reasonable control today. She is visable on the unit. Medication Compliance: Yes Side effects from medications: No Attending Groups: Intermittent Review of Systems Acute medical concerns: No Pt is aware she will need a dental appointment upon discharge. Medical Review of Systems: unchanged Review of Systems Review of Systems Reports pain mgt is improved. Mental Status Exam Mental Status Exam Patient Appearance: Appropriate Patient Orientation: Person, Place, Time and Situation Level of Consciousness: Alert Patient Behavior: Talkative and Good Eye Contact Mood Description: Appropriate and Cheerful Affect Description: Appropriate Patient Cognition Impaired: Yes Ability to Follow Directions: Good Speech Pattern: Spontaneous Speech Memory Description: Episodic Impaired Hallucinations: None Delusions: Not Present Thought Process: Goal Oriented Thought Content: positive for Goal Oriented Judgement: Fair Diagnostics Vital Signs (24Hr): Vital Signs - 24 hr 06/17/24 10:17 06/17/24 10:19 06/17/24 20:00 Temperature 97.6 F 98.2 F Pulse Rate 80 88 Respiratory Rate 16 Blood Pressure 118/71 118/71 130/79 Pulse Oximetry 100 98 Oxygen Delivery Method Room Air Room Air 06/17/24 20:28 06/18/24 09:55 Temperature Pulse Rate Respiratory Rate Blood Pressure 120/70 136/92 H Pulse Oximetry Oxygen Delivery Method BMI result Body Mass Index 36.2 Labs 06/12/24 10:12 Medications Medications Current Medications Acetaminophen (Acetaminophen 325 Mg Tablet) 650 mg PO Q6H PRN PRN Reason: Headache/Pain Mild Scale (1-3) Last Admin: 06/17/24 17:23 Dose: 650 mg Al Hydroxide/Mg Hydroxide (Magnesium Hydrox/Alum Hydrox 30 Ml Oral.Susp) 30 ml PO Q6H PRN PRN Reason: Heartburn/Nausea Amlodipine Besylate (Amlodipine Besylate 5 Mg Tablet) 5 mg PO DAILY [facility]; Protocol Last Admin: 06/18/24 09:55 Dose: 5 mg Ascorbic Acid (Ascorbic Acid 250 Mg Tablet) 250 mg PO DAILY [facility] Last Admin: 06/18/24 09:39 Dose: 250 mg Benzocaine (Benzocaine 20 % Oral Gel 9 Gm Tube) 1 appl MUCOUS MEM QID PRN; Protocol PRN Reason: tooth pain Last Admin: 06/12/24 18:13 Dose: 1 appl Benztropine Mesylate (Benztropine Mesylate 1 Mg Tablet) 1 mg PO BID [facility] Last Admin: 06/18/24 09:38 Dose: 1 mg Chlorhexidine Gluconate (Chlorhexidine Gluc Oral Rinse 15 Ml Mouthwash) 15 ml BUCCAL BID [facility] Last Admin: 06/18/24 09:39 Dose: Not Given Ferrous Sulfate (Ferrous Sulfate 324 Mg Tablet.Dr) 324 mg PO DAILY [facility] Last Admin: 06/18/24 09:39 Dose: 324 mg Fluticasone Propionate (Fluticasone Propionate 100 Mcg Blst.W.Dev) 2 puff INHALE RBID [facility] Last Admin: 06/18/24 09:37 Dose: 2 puff Hydroxyzine HCl (Hydroxyzine Hcl 25 Mg Tablet) 25 mg PO Q6H PRN PRN Reason: Anxiety Ibuprofen (Ibuprofen 800 Mg Tablet) 800 mg PO Q8H PRN PRN Reason: severe dental pain [place] Carbonate ([place] Carbonate Er 450 Mg Tablet.Er) 450 mg PO BID [facility] Last Admin: 06/18/24 09:38 Dose: 450 mg Loratadine (Loratadine 10 Mg Tablet) 10 mg PO DAILY [facility] Last Admin: 06/18/24 09:38 Dose: 10 mg Magnesium Hydroxide (Milk Of Magnesia 30 Ml Oral.Susp) 30 ml PO DAILY PRN PRN Reason: Constipation Nicotine (Nicotine 21 Mg Patch.Td24) 21 mg TRANSDERMA DAILY PRN PRN Reason: smoking cessation Nicotine Polacrilex (Nicotine Polacrilex 2 Mg Gum) 4 mg BUCCAL Q2H PRN PRN Reason: Nicotine Cravings Olanzapine (Olanzapine 10 Mg Tablet) 10 mg PO BEDTIME [facility] Last Admin: 06/17/24 20:28 Dose: 10 mg Olanzapine (Olanzapine 10 Mg Vial) 10 mg IM BEDTIME PRN PRN Reason: Abraham's-if pt refuses hs zyprexa Olanzapine (Olanzapine 10 Mg Vial) 10 mg IM BID PRN PRN Reason: Abraham's-if pt refuses perphenazine Olanzapine (Olanzapine 5 Mg Tablet) 5 mg PO BID PRN PRN Reason: agitation Last Admin: 06/16/24 09:50 Dose: 5 mg Perphenazine (Perphenazine 8 Mg Tablet) 16 mg PO BID [facility] Last Admin: 06/18/24 09:38 Dose: 16 mg Prazosin HCl (Prazosin Hcl 1 Mg Capsule) 1 mg PO BEDTIME [facility]; Protocol Last Admin: 06/17/24 20:28 Dose: 1 mg Trazodone HCl (Trazodone Hcl 50 Mg Tablet) 50 mg PO BEDTIME MRX1 PRN PRN Reason: Insomnia Last Admin: 06/13/24 20:40 Dose: 50 mg Allergies Allergies Allergy/AdvReac Type Severity Reaction Status Date / Time clozapine Allergy Unknown Verified 06/30/22 06:36 metronidazole [From Flagyl] Allergy Unknown Verified 06/30/22 06:36 paliperidone Allergy Unknown Verified 06/30/22 06:36 Assessment & Plan Assessment & Plan (1) Schizoaffective disorder: Status: Acute Code(s): F25.9 - Schizoaffective disorder, unspecified (2) 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 Plan: Pt was started on antibiotics for dental pain, edema. Re-start regime and monitor Collateral contact Diagnostics as needed 06/14/24- Continue tx On 06/15 [place] Level, BMP 06/15- Regime non compliance with active Lo PRN IM's in place, consulted with [facility] legal team Diagnostics ordred 06/14 not drawn. 06/16 continue treatment plan 06/17 continue current treatment plan; patient does have a Lo in place; could consider increasing some medications but will hold off for now 06/18 Improving. Residential team believes pt has returned to baseline. Discharge 06/20/24. Reason for continued inpatient stay Substantial Risk for: stable for discharge and rapid decompensation Time Spent With Patient Time: Total time managing care of this patient today ____ minutes.
[2024-06-18 20:00] VITALS: BP 134/73; PULSE 92; RESP 16; TEMP 36.4; O2SAT 99
[2024-06-18] MEDS: Chlorhexidine Gluc Oral Rinse 15 ML MOUTHWASH BUCCAL (21:55)
[2024-06-18 21:56] VITALS: BP 134/88
[2024-06-18] MEDS: OLANZapine 10 MG TABLET PO (21:56)
[2024-06-18] MEDS: Prazosin HCL 1 MG CAPSULE PO (21:56)
[2024-06-19] MEDS: Loratadine 10 MG TABLET PO (09:54)
[2024-06-19] MEDS: Fluticasone Propionate 100 MCG BLST.W.DEV 2 PUFF INHALE ×2 (09:54→21:02)
[2024-06-19 09:55] VITALS: BP 125/80
[2024-06-19] MEDS: Benztropine Mesylate 1 MG TABLET PO ×2 (09:55→21:02)
[2024-06-19] MEDS: Ascorbic Acid 250 MG TABLET PO (09:55)
[2024-06-19] MEDS: amLODIPine Besylate 5 MG TABLET PO (09:55)
[2024-06-19] MEDS: Ferrous Sulfate 324 MG TABLET.DR PO (09:57)
[2024-06-19] MEDS: Lithium Carbonate ER 450 MG TABLET.ER PO ×2 (09:57→21:02)
[2024-06-19] MEDS: Perphenazine 8 MG TABLET 16 MG PO ×2 (09:57→21:02)
[2024-06-19 10:05] VITALS: BP 122/80; PULSE 71; TEMP 36.4
--- NOTE | 2024-06-19 11:30 | HO.PSYCHPN ---
Subjective Subjective Date of Service: 06/19/24 Reason For Visit: Major depressive d/o w/ severe psychotic symptoms Subjective Notes: Conditional Voluntary Healthcare Proxy: No Guardianship: Yes Medical Problems Affecting Mental Status: No Interim History: Alert, states she hopes to go to the [facility] after discharge. Denies SI,HI, AH, VH. Some anxiety and apprehension today. Focus on early discharge time of 8am and needing to be awake and ready to leave. Attended some groups today. Agrees to labs prior to DC in the a.m. Medication Compliance: Yes Side effects from medications: No Attending Groups: Intermittent Review of Systems Acute medical concerns: No Medical Review of Systems: unchanged Review of Systems Review of Systems Dental pain is decreased per pt. Mental Status Exam Mental Status Exam Patient Appearance: Appropriate Patient Orientation: Person, Place, Time and Situation Level of Consciousness: Alert Patient Behavior: Talkative and Good Eye Contact Mood Description: Appropriate Affect Description: Appropriate Patient Cognition Impaired: Yes Ability to Follow Directions: Good Speech Pattern: Spontaneous Speech Memory Description: Episodic Impaired Hallucinations: None Delusions: Not Present Thought Process: Goal Oriented Thought Content: positive for Goal Oriented Judgement: Fair Diagnostics Vital Signs (24Hr): Vital Signs - 24 hr 06/18/24 20:00 06/18/24 21:56 06/19/24 09:55 Temperature 97.6 F Pulse Rate 92 Respiratory Rate 16 Blood Pressure 134/73 134/88 125/80 Pulse Oximetry 99 Oxygen Delivery Method Room Air BMI result Body Mass Index 36.2 Labs 06/12/24 10:12 Medications Medications Current Medications Acetaminophen (Acetaminophen 325 Mg Tablet) 650 mg PO Q6H PRN PRN Reason: Headache/Pain Mild Scale (1-3) Last Admin: 06/17/24 17:23 Dose: 650 mg Al Hydroxide/Mg Hydroxide (Magnesium Hydrox/Alum Hydrox 30 Ml Oral.Susp) 30 ml PO Q6H PRN PRN Reason: Heartburn/Nausea Albuterol Sulfate (Albuterol Sulfate 90 Mcg 8 Gm Inhaler) 2 puff INHALE RQ6H PRN PRN Reason: Wheezing Amlodipine Besylate (Amlodipine Besylate 5 Mg Tablet) 5 mg PO DAILY [facility]; Protocol Last Admin: 06/19/24 09:55 Dose: 5 mg Ascorbic Acid (Ascorbic Acid 250 Mg Tablet) 250 mg PO DAILY [facility] Last Admin: 06/19/24 09:55 Dose: 250 mg Benzocaine (Benzocaine 20 % Oral Gel 9 Gm Tube) 1 appl MUCOUS MEM QID PRN; Protocol PRN Reason: tooth pain Last Admin: 06/12/24 18:13 Dose: 1 appl Benztropine Mesylate (Benztropine Mesylate 1 Mg Tablet) 1 mg PO BID [facility] Last Admin: 06/19/24 09:55 Dose: 1 mg Chlorhexidine Gluconate (Chlorhexidine Gluc Oral Rinse 15 Ml Mouthwash) 15 ml BUCCAL BID [facility] Last Admin: 06/19/24 10:43 Dose: Not Given Ferrous Sulfate (Ferrous Sulfate 324 Mg Tablet.Dr) 324 mg PO DAILY [facility] Last Admin: 06/19/24 09:57 Dose: 324 mg Fluticasone Propionate (Fluticasone Propionate 100 Mcg Blst.W.Dev) 2 puff INHALE RBID [facility] Last Admin: 06/19/24 09:54 Dose: 2 puff Hydroxyzine HCl (Hydroxyzine Hcl 25 Mg Tablet) 25 mg PO Q6H PRN PRN Reason: Anxiety Ibuprofen (Ibuprofen 800 Mg Tablet) 800 mg PO Q8H PRN PRN Reason: severe dental pain [place] Carbonate ([place] Carbonate Er 450 Mg Tablet.Er) 450 mg PO BID [facility] Last Admin: 06/19/24 09:57 Dose: 450 mg Loratadine (Loratadine 10 Mg Tablet) 10 mg PO DAILY [facility] Last Admin: 06/19/24 09:54 Dose: 10 mg Magnesium Hydroxide (Milk Of Magnesia 30 Ml Oral.Susp) 30 ml PO DAILY PRN PRN Reason: Constipation Nicotine (Nicotine 21 Mg Patch.Td24) 21 mg TRANSDERMA DAILY PRN PRN Reason: smoking cessation Nicotine Polacrilex (Nicotine Polacrilex 2 Mg Gum) 4 mg BUCCAL Q2H PRN PRN Reason: Nicotine Cravings Olanzapine (Olanzapine 10 Mg Tablet) 10 mg PO BEDTIME [facility] Last Admin: 06/18/24 21:56 Dose: 10 mg Olanzapine (Olanzapine 10 Mg Vial) 10 mg IM BEDTIME PRN PRN Reason: Abraham's-if pt refuses hs zyprexa Olanzapine (Olanzapine 10 Mg Vial) 10 mg IM BID PRN PRN Reason: Abraham's-if pt refuses perphenazine Olanzapine (Olanzapine 5 Mg Tablet) 5 mg PO BID PRN PRN Reason: agitation Last Admin: 06/16/24 09:50 Dose: 5 mg Perphenazine (Perphenazine 8 Mg Tablet) 16 mg PO BID [facility] Last Admin: 06/19/24 09:57 Dose: 16 mg Prazosin HCl (Prazosin Hcl 1 Mg Capsule) 1 mg PO BEDTIME [facility]; Protocol Last Admin: 06/18/24 21:56 Dose: 1 mg Trazodone HCl (Trazodone Hcl 50 Mg Tablet) 50 mg PO BEDTIME MRX1 PRN PRN Reason: Insomnia Last Admin: 06/13/24 20:40 Dose: 50 mg Allergies Allergies Allergy/AdvReac Type Severity Reaction Status Date / Time clozapine Allergy Unknown Verified 06/30/22 06:36 metronidazole [From Flagyl] Allergy Unknown Verified 06/30/22 06:36 paliperidone Allergy Unknown Verified 06/30/22 06:36 Assessment & Plan Assessment & Plan (1) Schizoaffective disorder: Status: Acute Code(s): F25.9 - Schizoaffective disorder, unspecified (2) 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 Plan: Pt was started on antibiotics for dental pain, edema. Re-start regime and monitor Collateral contact Diagnostics as needed 06/14/24- Continue tx On 06/15 [place] Level, BMP 06/15- Regime non compliance with active Lo PRN IM's in place, consulted with [facility] legal team Diagnostics ordred 06/14 not drawn. 06/16 continue treatment plan 06/17 continue current treatment plan; patient does have a Lo in place; could consider increasing some medications but will hold off for now 06/19 Discharge 06/20. Reason for continued inpatient stay Substantial Risk for: stable for discharge and rapid decompensation Time Spent With Patient Time: Total time managing care of this patient today ____ minutes.
[2024-06-19 20:00] VITALS: BP 140/78; PULSE 86; RESP 16; TEMP 37.1; O2SAT 100
[2024-06-19] MEDS: Chlorhexidine Gluc Oral Rinse 15 ML MOUTHWASH BUCCAL (21:02)
[2024-06-19 21:03] VITALS: BP 140/78
[2024-06-19] MEDS: Prazosin HCL 1 MG CAPSULE PO (21:03)
[2024-06-19] MEDS: OLANZapine 10 MG TABLET PO (22:17)
[2024-06-20 08:00] VITALS: BP 124/84; PULSE 99; RESP 18; TEMP 36.4; O2SAT 99
[2024-06-20] MEDS: Benzocaine 20 % Oral Gel 9 GM TUBE 1 APPL MUCOUS MEM (08:09)
[2024-06-20] MEDS: Fluticasone Propionate 100 MCG BLST.W.DEV 2 PUFF INHALE (08:09)
[2024-06-20] MEDS: Albuterol Sulfate 90 MCG 8 GM INHALER 2 PUFF INHALE (08:09)
[2024-06-20] MEDS: Chlorhexidine Gluc Oral Rinse 15 ML MOUTHWASH BUCCAL (08:09)
[2024-06-20] MEDS: Benztropine Mesylate 1 MG TABLET PO (08:10)
[2024-06-20] MEDS: amLODIPine Besylate 5 MG TABLET PO (08:10)
[2024-06-20] MEDS: Ferrous Sulfate 324 MG TABLET.DR PO (08:10)
[2024-06-20] MEDS: Perphenazine 8 MG TABLET 16 MG PO (08:10)
[2024-06-20] MEDS: Loratadine 10 MG TABLET PO (08:10)
[2024-06-20] MEDS: Lithium Carbonate ER 450 MG TABLET.ER PO (08:10)
[2024-06-20] MEDS: Ascorbic Acid 250 MG TABLET PO (08:10)
--- NOTE | 2024-06-20 08:55 | PM.PSYDC ---
DS: Providers Provider Date of Service: 06/20/24 Date of admission: 06/11/24 16:41 Date of discharge: 06/20/24 Primary care physician: Unknown Physician Admitting clinician: [place]ia Chandler Attending physician on admission: Nicholas Ritchie Consults: 06/11/24 17:37 Consult to Hospitalist Routine Comment: Consulting Provider: Hospitalist Reason For Exam: admission physical Attending physician on discharge: Nichoals Ritchie Discharging clinician: Albania Chandler DS: Diagnosis Discharge Diagnosis (1) Schizoaffective disorder: Status: Acute (2) alcohol syndrome: Status: Acute DS: Medications Discharge Medications Home Medications: Home Medications ?Medication ?Instructions ?Recorded ?Confirmed fluticasone propionate 50 mcg BID 08/16/23 06/12/24 prazosin 1 mg PO BEDTIME 08/16/23 06/12/24 ferrous sulfate 325 mg (65 mg 325 mg PO USEASDIRECTD 06/12/24 06/12/24 iron) tablet,delayed release Previous Rx's ?Medication ?Instructions ?Recorded loratadine 10 mg tablet 10 mg PO DAILY 30 days #30 tabs 04/13/23 acetaminophen 325 mg tablet 650 mg (2 x 325 mg) PO Q6H PRN 06/19/24 Headache/Pain Mild Scale (1-3) #0 tabs amlodipine 5 mg tablet 5 mg PO DAILY #30 tabs 06/19/24 ascorbic acid (vitamin C) 250 mg 250 mg PO DAILY #30 tabs 06/19/24 tablet benzocaine 20 % mucosal gel 1 appl mucous membrane QID PRN 06/19/24 (Anbesol (benzocaine) Maximum tooth pain #9 grams Strength) benztropine 1 mg tablet 1 mg PO BID 30 days #60 tabs 06/19/24 chlorhexidine gluconate 0.12 % 15 ml buccal BID #473 mL 06/19/24 mouthwash lithium carbonate 450 mg 450 mg PO BID 30 days #60 tabs 06/19/24 tablet,extended release olanzapine 10 mg PO BEDTIME #30 tabs 06/19/24 olanzapine 10 mg tablet (Zyprexa) 10 mg PO BEDTIME #30 tabs 06/19/24 perphenazine 8 mg tablet 16 mg (2 x 8 mg) PO BID 30 days 06/19/24 #120 tabs trazodone 50 mg tablet 50 mg PO BEDTIME PRN insomnia #30 06/19/24 tabs Mental Status Exam Mental Status Exam Patient Appearance: Appropriate Patient Orientation: Person, Place, Time and Situation Level of Consciousness: Alert Patient Behavior: Talkative and Good Eye Contact Mood Description: Appropriate Affect Description: Appropriate Patient Cognition Impaired: Yes Ability to Follow Directions: Good Speech Pattern: Spontaneous Speech Memory Description: Episodic Impaired Hallucinations: None Delusions: Not Present Thought Process: Goal Oriented Thought Content: positive for Goal Oriented Judgement: Fair Data Data Completed and Pending Completed studies during hospitalization [Text1]: 06/20/24 08:06 Sodium Pending Potassium Pending Chloride Pending Carbon Dioxide Pending Anion Gap Pending BUN Pending Creatinine Pending Estim Creat Clear Calc Pending Estimated GFR Pending Random Glucose Pending Calcium Pending TSH Pending [place] 0.70 DS: Summary Hospital Course Hospital Course: Admission to adult psychiatry for exacerbation of schizophrenia. Pt with a history of FAS, under guardianship with [facility] and living in a residential. Pt stopped meds approximately 3-4 days prior to admission with SIBS, SI, agitation. She also has a dental infection and has not been stable enough in her behaviors to see her dentist. Antibiotics were initiated by hospitalist team to manage the dental infection. Medications were re-started and with time, pt was able to recompensate. She was able to utilize the milieu for support and structure. She discharges to return to her residential, attend a dental appointment and is looking forward to attending [facility] with her peers at the residential. Status at Discharge Functional status at discharge: independent ambulation Overall status at discharge: patient is back to baseline Time Spent with Patient Time attestation: Total time managing care of this patient today ____ minutes. Time spent: Less than 30 minutes Discharge Plan Discharge Anticipated Discharge Date/Time: 06/20/24 08:00 Patient Disposition: Home, Self-Care Discharge Diagnosis: Schizoaffective Disorder Gingivitis Dental Pain due to infection Referrals: Physician,Unknown J [Primary Care Provider] - 1 Week Discharge Medications: New acetaminophen 325 mg Tablet 650 mg PO Q6H PRN (Reason: Headache/Pain Mild Scale (1-3)) Qty: 0 0RF amlodipine 5 mg Tablet 5 mg PO DAILY Qty: 30 0RF Protocol: Hold for SBP< HOLD for SBP < : 90 Anbesol (benzocaine) Max Str 20 % Gel 1 appl mucous membrane QID PRN (Reason: tooth pain) Qty: 9 0RF Protocol: Apply to: Apply to: mouth chlorhexidine gluconate 0.12 % Mouthwash 15 ml buccal BID Qty: 473 0RF ascorbic acid (vitamin C) 250 mg Tablet 250 mg PO DAILY Qty: 30 0RF trazodone 50 mg tablet 50 mg PO BEDTIME PRN (Reason: insomnia) Qty: 30 0RF olanzapine [Zyprexa] 10 mg tablet 10 mg PO BEDTIME Qty: 30 0RF Continued fluticasone propionate 50 mcg BID prazosin 1 mg PO BEDTIME loratadine 10 mg tablet 10 mg PO DAILY 30 Days Qty: 30 0RF ferrous sulfate 325 mg (65 mg iron) tablet,delayed release (DR/EC) 325 mg PO USEASDIRECTD Rx Instructions: Every Other Day lithium carbonate 450 mg Tablet Extended Release 450 mg PO BID 30 Days Qty: 60 0RF benztropine 1 mg Tablet 1 mg PO BID 30 Days Qty: 60 0RF perphenazine 8 mg Tablet 16 mg PO BID 30 Days Qty: 120 0RF olanzapine 10 mg PO BEDTIME Qty: 30 0RF Discontinued trazodone 50 mg PO BEDTIME PRN (Reason: Insomnia) ascorbic acid (vitamin C) 250 mg Tablet 250 mg PO DAILY 30 Days Qty: 30 0RF Discharge Orders: Discharge Order (Routine); Ordered 06/20/24 Ordered By: Albania Chandler Diet: Advance to usual diet Activity on Discharge: As tolerated Stand Alone Forms: Patient Portal Discharge page, Community Support Print Language: Setswana Care Plan Goals: Mood and Behavioral Stabilization Health Concerns: Mood and Behavioral Stabilization Plan of Treatment: Vanda will return to her residential program. Attend scheduled appointments Take medications as directed You have been treated for a dental infection. Please make an appointment with your dentist as soon as possible for further care and treatment. Assessment: Scheduled discharge No SI/HI/Behavioral Dyscontrol Cooperative with medication regime Discharge Date/Time: 06/20/24 08:40
[2024-06-20 09:04] LABS: Anion Gap 12 (12-20); Blood Urea Nitrogen 11 mg/dL (9-16); Calcium 10.5 mg/dL (8.4-10.2); Carbon Dioxide 26 mmol/L (22-29); Chloride 110 mmol/L (96-108); Creatinine Clr Calc Pharmacy 100.9; Estimated Glomerular Filt Rate > 60; Glucose Random 122 mg/dL (60-115); Potassium 3.7 mmol/L (3.3-5.1); Sodium 144 mmol/L (135-145)
[2024-06-20 09:21] LABS: Thyroid Stimulating Hormone 0.73 uIU/mL (0.32-4.0)
== END 2024-06-20 08:40 | disposition home or self-care (01) | DRG 750 ==
PROVIDERS: Admitting Provider Psychiatry & Neurology Psychiatry; Visit Provider Clinical Nurse Specialist Psychiatric/Mental Health, Adult
DX: F25.9 Schizoaffective disorder, unspecified (principal); R45.851 Suicidal ideations; G40.909 Epilepsy, unspecified, not intractable, without status epilepticus; D50.9 Iron deficiency anemia, unspecified; K21.9 Gastro-esophageal reflux disease without esophagitis; K05.10 Chronic gingivitis, plaque induced; Q86.0 Fetal alcohol syndrome (dysmorphic); Z91.199 Patient's noncompliance with other medical treatment and regimen due to unspecified reason; Z62.810 Personal history of physical and sexual abuse in childhood; Z62.812 Personal history of neglect in childhood; Z79.899 Other long term (current) drug therapy
CPT/HCPCS: 36415; 80048; 80053; 80061; 80178; 83036; 84443

== ENCOUNTER → 2024-06-11 16:41 | Outpatient (BNV) | payer MEDICAID, SELFPAY | PROVIDERS: Admitting Provider Psychiatry & Neurology Psychiatry; Visit Provider Physician Assistant | DX: R68.84 Jaw pain (principal); K05.10 Chronic gingivitis, plaque induced | CPT/HCPCS: 99221 ==

== ENCOUNTER → 2024-06-11 16:41 | Outpatient (BNV) | payer OTHER, SELFPAY | PROVIDERS: Admitting Provider Psychiatry & Neurology Psychiatry; Visit Provider Clinical Nurse Specialist Psychiatric/Mental Health, Adult | DX: F25.1 Schizoaffective disorder, depressive type (principal); Q86.0 Fetal alcohol syndrome (dysmorphic) | CPT/HCPCS: 99231; 99232 ==